=== PATIENT | male | born 1955 | race Caucasian/White ===

== ENCOUNTER 2023-07-04 19:18 | Inpatient (IN) | payer MEDICARE, MEDICAID, SELFPAY ==
[2023-07-04] VITALS (28 sets, daily range): BP systolic 94–143; BP diastolic 56–115; PULSE 78–116; RESP 8–29; TEMP 36.6; O2SAT 87–100; BMI 24.7
--- NOTE | 2023-07-04 | CONS_ITS ---
ENT CONSULTATION CONSULTATION DATE: ??07/04/2023 CONSULTING PHYSICIAN: Rehana Reed D.O. SALES DRIVER:? Kelly Pulliam M.D. CHIEF COMPLAINT:? Facial fracture. HISTORY:? This 67-year-old gentleman, well known to me with a history of head and neck cancer, presented to the emergency room last night after falling and striking his face.? He was noted to have marked facial swelling and had a significantly elevated blood alcohol level on arrival.? A CT scan of the facial bones was obtained.? I reviewed the CT scan and there was a mildly depressed fracture of the anterior wall of the right maxillary sinus, with no evidence of zygoma, inferior orbital rim or lateral orbital rim fracture to suggest a tripod fracture.? REVIEW OF SYSTEMS:? Patient?s review of systems was unremarkable, with the exception of facial swelling. PHYSICAL EXAM:? He is afebrile and vital signs are stable. General:? Alert and oriented x4, marked right facial swelling evident. ENT:? Examination of the oral cavity and oropharynx shows no evidence of a current tumor, and palpation of the neck shows no lymphadenopathy. Heart:? Regular rate and rhythm. Lungs:? Clear to auscultation bilaterally. Abdomen: ?Soft, non-tender. ASSESSMENT:? Right maxilla fracture.? No surgical treatment needed. RECOMMENDATIONS:? I recommend covering the patient with Augmentin to minimize the risk of development of sinusitis and recommend ice to the right face and avoiding nose blowing for two weeks.? Patient should follow up with me as an outpatient.. ROBBID
--- NOTE | 2023-07-04 19:40 | ED.GENADUL1 ---
Documented by User: Danna Lyons 07/04/23 22:11 HPI - General Adult General Chief complaint: Fall Stated complaint: FALL GENERAL WEEKNESS Time Seen by Provider: 07/04/23 19:34 Source: patient and family Mode of arrival: Wheelchair Limitations: no limitations History of Present Illness HPI narrative: 67 year old male presents to the ED for a head injury, facial swelling s/p fall yesterday and today. He is unsure if he lost consciousness. He has been having frequent falls the past few months. He is a heavy daily alcohol drinker for many years. He has skin tears to his right chest, bilateral arms. Denies pain to his neck, back, abdomen. Denies N/V/D, urinary sx. Denies cough, SOB. Family is also requesting x-rays of his right ankle; he had a fracture in December, that he did not follow up for. The patient does live alone. Rates his pain 3/10 at this time. Related Data Home Medications Medication Instructions Recorded Confirmed No Known Home Medications 07/04/23 07/04/23 Allergies Allergy/AdvReac Type Severity Reaction Status Date / Time No Known Drug Allergies Allergy Verified 07/04/23 19:27 Review of Systems ROS Constitutional Denies: fever or chills Eyes Denies: change in vision or blurry vision Ears, nose, mouth, and throat Denies: throat pain, neck pain, throat swelling or ear pain Cardiovascular Denies: chest pain or lightheadedness Respiratory Denies: shortness of breath or cough Gastrointestinal Denies: abdominal pain, nausea, vomiting or diarrhea Genitourinary Denies: painful urination Musculoskeletal Denies: back pain, neck pain or extremity pain Integumentary/Breast Reports: sores; Denies: rash Neurological Denies: headache, numbness in extremities, weakness in extremities, dizziness, vertigo or confusion Endocrine Denies: fatigue Allergic/Immunologic Reports: facial swelling Exam Constitutional Vital Signs, click to edit/add: Last Vital Signs Temp 97.8 F 07/04/23 19:19 Pulse 102 H 07/04/23 23:20 Resp 18 07/04/23 23:20 BP 94/56 07/04/23 23:00 Pulse Ox 97 07/04/23 21:30 O2 Del Method Room Air 07/04/23 19:19 Common normals: no apparent distress and oriented x3 General appearance: cooperative and odor of alcohol detected; not in distress HENME Head and scalp: other (Right-side facial swelling, bruising, abrasions.) Nose: external nose normal; no epistaxis External ear: external ears normal Mouth: tongue normal (Tongue midline. No lacerations or abrasions.) Teeth and gingiva: poor dentition (missing teeth) Throat: posterior oropharynx normal Eye Common normals: PERRL, EOMs intact bilaterally, conjunctivae normal and no scleral icterus Neck & C-Spine Common normals: supple General: normal visual inspection Cervical spine: no pain with cervical ROM, no cervical spine tenderness and no paracervical muscle tenderness Chest Chest: abnormal inspection of the chest (Skin tear to right chest) Other: Denies tenderness to chest with palpation. Respiratory Common normals: normal respiratory effort and no use of accessory muscles Effort & inspection: symmetric chest movement Cardio Common normals: regular rhythm Rate: tachycardic GI Common normals: soft to palpation and non-tender Other: No bruising, abrasions, wounds noted to abdomen. Back & Pelvis General back: no erythema and no ecchymosis Thoracic spine/upper back: normal to inspection; no thoracic spinal tenderness and no paraspinal muscle tenderness Lumbar spine/lower back: normal to inspection; no lumbar spinal tenderness and no paraspinal muscle tenderness Extremity Common normals: normal capillary refill Other: Full ROM to BUE and BLE. Denies tenderness to extremities. No swelling or obvious deformity noted to extremities. Skin tears noted to BUE. Wounds on left arm do no appear to be from today. Wounds to right arm appear more recent. Neuro Common normals: oriented x3 and moves all extremities Sensorium/orientation: awake and alert Speech: speech normal Gait (neuro): unable to assess gait Course Vital Signs Vital signs: Vital Signs Temperature 97.8 F 07/04/23 19:19 Pulse Rate 104 H 07/04/23 19:19 Respiratory Rate 20 07/04/23 19:19 Blood Pressure 134/105 H 07/04/23 19:19 Pulse Oximetry 98 07/04/23 19:19 Oxygen Delivery Method Room Air 07/04/23 19:19 Temperature 97.8 F 07/04/23 19:19 Pulse Rate 102 H 07/04/23 23:20 Respiratory Rate 18 07/04/23 23:20 Blood Pressure 94/56 07/04/23 23:00 Pulse Oximetry 97 07/04/23 21:30 Oxygen Delivery Method Room Air 07/04/23 19:19 Medical Decision Making MDM Narrative Medical decision making narrative: His wounds were cleansed. A dressing was applied to the newer wound on the right arm. Magnesium was 1.3 which was treated. His ethanol level was 286. Additional testing was pending. Care was resumed to Dr. Haq. See her dictation for further evaluation and treatment. Medical Records Medical records reviewed: Yes I reviewed the patient's medical records Lab Data Lab results reviewed: Yes I reviewed the patient's lab results Labs: Lab Results 07/04/23 Range/Units 19:50 WBC 3.1 L (4.0-11.0) 10^3/uL RBC 2.97 L (4.70-6.10) 10^6/uL Hgb 10.3 L (14.0-18.0) g/dL Hct 30.3 L (42.0-54.0) % MCV 102.0 H (80.0-94.0) fL MCH 34.7 H (25.9-34.0) pg MCHC 34.0 (29.9-35.2) g/dL RDW 13.8 (11.0-15.0) % Plt Count 197 (150-450) 10^3/uL MPV 10.5 (9.5-13.5) fL Neut % (Auto) 71.1 (43.0-75.0) % Lymph % (Auto) 21.8 (20.5-60.0) % Canyon % (Auto) 4.9 (1.7-12.0) % Eos % (Auto) 0.3 L (0.9-7.0) % Baso % (Auto) 1.3 (0.2-2.0) % Neut # (Auto) 2.2 (1.4-6.5) 10^3/uL Lymph # (Auto) 0.7 L (1.2-3.8) 10^3/uL Canyon # (Auto) 0.2 L (0.3-0.8) 10^3/uL Eos # (Auto) 0.0 (0.0-0.7) 10^3/uL Baso # (Auto) 0.0 (0.0-0.1) 10^3/uL Abs Immat Gran (auto) 0.02 (0.00-0.03) 10^3/uL Imm/Tot Granulo (auto) 0.6 H (0.0-0.5) % PT 10.8 (9.0-11.6) sec INR 1.02 Sodium 136 (136-145) mmol/L Potassium 5.1 (3.5-5.1) mmol/L Chloride 98 (98-107) mmol/L Carbon Dioxide 22.9 (21.0-32.0) mmol/L Anion Gap 20.2 BUN 10.0 (7.0-18.0) mg/dL Creatinine 0.62 L (0.70-1.30) mg/dL Est GFR ( Amer) >60 (>=60) Est GFR (Non-Af Amer) >60 (>=60) BUN/Creatinine Ratio 16.1 Glucose 70 L (74-106) mg/dL Calcium 8.2 L (8.5-10.1) mg/dL Magnesium 1.3 L (1.8-2.4) mg/dL Total Bilirubin 1.3 H (0.2-1.0) mg/dL AST 165 H (15-37) U/L ALT 54 (16-63) U/L Alkaline Phosphatase 65 (46-116) U/L NT-Pro-B Natriuret Pep 406.0 (<=900.0) pg/mL Total Protein 7.8 (6.4-8.2) g/dL Albumin 3.6 (3.4-5.0) g/dL Globulin 4.2 g/dL Albumin/Globulin Ratio 0.9 Lipase 217.0 (73.0-393.0) U/L Ethanol Quant 286 mg/dL ECG Data Attestation: ?I have reviewed the pertinent ECG results. (EKG was reviewed by the attending physician. It showed sinus tachycardia at a rate of 109. ) Interpretation: Measurements Intervals [place] Rate: 109 P: 72 KS: 134 QRS: 56 QRSD: 78 T: 56 QT: 326 QTc: 390 Interpretive Statements 1120 Sinus tachycardia 1470 with occasional supraventricular premature complexes 1570 with occasional ventricular premature complexes 3433 Septal myocardial infarction, probably old 9150 abnormal ECG No previous ECG available for comparison Discharge Plan Discharge Chief Complaint: Fall Clinical Impression: Unsteady gait, Falls frequently, Alcohol abuse, daily use, Leukopenia, Fracture of maxillary sinus, Fracture of lateral malleolus Patient Disposition: Admitted As Inpatient Time of Disposition Decision: 00:14 Condition: Serious Prescriptions / Home Meds: No Action No Known Home Medications Referrals: Bird Crouch MD [Primary Care Provider] - 1 week Documented by User: Gladis Haq MD 07/05/23 00:15 HPI - General Adult General Chief complaint: Fall Stated complaint: FALL GENERAL WEEKNESS Time Seen by Provider: 07/04/23 19:34 Related Data Home Medications Medication Instructions Recorded Confirmed No Known Home Medications 07/04/23 07/04/23 Allergies Allergy/AdvReac Type Severity Reaction Status Date / Time No Known Drug Allergies Allergy Verified 07/04/23 19:27 Exam Constitutional Vital Signs, click to edit/add: Last Vital Signs Temp 97.8 F 07/04/23 19:19 Pulse 102 H 07/04/23 23:20 Resp 18 07/04/23 23:20 BP 94/56 07/04/23 23:00 Pulse Ox 97 07/04/23 21:30 O2 Del Method Room Air 07/04/23 19:19 Course Vital Signs Vital signs: Vital Signs Temperature 97.8 F 07/04/23 19:19 Pulse Rate 104 H 07/04/23 19:19 Respiratory Rate 20 07/04/23 19:19 Blood Pressure 134/105 H 07/04/23 19:19 Pulse Oximetry 98 07/04/23 19:19 Oxygen Delivery Method Room Air 07/04/23 19:19 Temperature 97.8 F 07/04/23 19:19 Pulse Rate 102 H 07/04/23 23:20 Respiratory Rate 18 07/04/23 23:20 Blood Pressure 94/56 07/04/23 23:00 Pulse Oximetry 97 07/04/23 21:30 Oxygen Delivery Method Room Air 07/04/23 19:19 Medical Decision Making MDM Narrative Medical decision making narrative: His wounds were cleansed. A dressing was applied to the newer wound on the right arm. Magnesium was 1.3 which was treated. His ethanol level was 286. Additional testing was pending. Care was resumed to Dr. Haq. See her dictation for further evaluation and treatment. 67-year-old male was seen and evaluated in conjunction with the nurse practitioner. Please refer to her full H and P. Patient was seen and evaluated by myself. Sisters are at bedside. They explained that the patient is currently living alone. He is not colic. He has recently been falling because he is not able to weight-bear on his right leg. Yesterday he tried to get up and fell against a door frame and struck the right side of his face on the doorframe. The patient's sister states he has been in rehab in the past over 10 years ago. At that time his rehab was 4 opiate narcotics and alcoholism. The patient currently lives alone. He has a history of throat cancer and has had radiation therapy in the past. His sister states that he was supposed to see Dr. Pulliam recently for a follow up appointment but either cancelled the appointment or failed to show up. He also had a tibial fracture in the past and had been seen by Dr. Grimaldo. He apparently wore a walking boot for 2 weeks and then discarded it. It is unclear when he reinjured his right lower extremity but it does show that there is an acute fracture of the distal fibula on his x-ray. The patient's sister states that he was drinking when she showed up to pick him up earlier today. His alcohol is noted to be 286. The remainder of his labs show a leukopenia with a WBC cound of 3.1 and anemia with Hb of 10.3. He has mild elevation in his LFTs in keeping with his history of alcohol dependence. On physical exam, he has right-sided facial swelling and bruising and the soft tissues of his neck on the right side are firm s/p XRT of the neck . He is mildly intoxicated without any other focal deficits. CT scan of the brain was negative for acute findings. CT scan of the facial bones shows an acute fracture of the right maxillary sinus without involvement of the orbits. CT scan of the chest showed chronic changes and multiple nodules but no pneumothorax or other acute findings such as pneumonia or empyema. CT scan abdomen and pelvis shows a fatty liver but is otherwise normal. X-ray of the right lower extremity shows an acute fracture of the Lateral aspect of the lateral malleolus within the patient's prior distal fibula fracture. CT scan of the cervical spine was negative for acute findings. The patient received IV fluids and magnesium in the emergency department. He was given 3gm of IV Unasyn to prevent sinus infection after the sinus fracture. He remains hemodynamically stable. His right lower extremity was splinted in a one-step splint and Dr. Grimaldo was consult at. The patient has seen Dr. Pulliam in the past and can be consulted at the request of the admitting physician. The case was discussed with the hospitalist and he is accepted for admission to the ICU for further evaluation and treatment. His sisters feel that he should be placed as he can no longer provide for his basic needs at home by himself. Lab Data Labs: Lab Results 07/04/23 Range/Units 19:50 WBC 3.1 L (4.0-11.0) 10^3/uL RBC 2.97 L (4.70-6.10) 10^6/uL Hgb 10.3 L (14.0-18.0) g/dL Hct 30.3 L (42.0-54.0) % MCV 102.0 H (80.0-94.0) fL MCH 34.7 H (25.9-34.0) pg MCHC 34.0 (29.9-35.2) g/dL RDW 13.8 (11.0-15.0) % Plt Count 197 (150-450) 10^3/uL MPV 10.5 (9.5-13.5) fL Neut % (Auto) 71.1 (43.0-75.0) % Lymph % (Auto) 21.8 (20.5-60.0) % Canyon % (Auto) 4.9 (1.7-12.0) % Eos % (Auto) 0.3 L (0.9-7.0) % Baso % (Auto) 1.3 (0.2-2.0) % Neut # (Auto) 2.2 (1.4-6.5) 10^3/uL Lymph # (Auto) 0.7 L (1.2-3.8) 10^3/uL Canyon # (Auto) 0.2 L (0.3-0.8) 10^3/uL Eos # (Auto) 0.0 (0.0-0.7) 10^3/uL Baso # (Auto) 0.0 (0.0-0.1) 10^3/uL Abs Immat Gran (auto) 0.02 (0.00-0.03) 10^3/uL Imm/Tot Granulo (auto) 0.6 H (0.0-0.5) % PT 10.8 (9.0-11.6) sec INR 1.02 Sodium 136 (136-145) mmol/L Potassium 5.1 (3.5-5.1) mmol/L Chloride 98 (98-107) mmol/L Carbon Dioxide 22.9 (21.0-32.0) mmol/L Anion Gap 20.2 BUN 10.0 (7.0-18.0) mg/dL Creatinine 0.62 L (0.70-1.30) mg/dL Est GFR ( Amer) >60 (>=60) Est GFR (Non-Af Amer) >60 (>=60) BUN/Creatinine Ratio 16.1 Glucose 70 L (74-106) mg/dL Calcium 8.2 L (8.5-10.1) mg/dL Magnesium 1.3 L (1.8-2.4) mg/dL Total Bilirubin 1.3 H (0.2-1.0) mg/dL AST 165 H (15-37) U/L ALT 54 (16-63) U/L Alkaline Phosphatase 65 (46-116) U/L NT-Pro-B Natriuret Pep 406.0 (<=900.0) pg/mL Total Protein 7.8 (6.4-8.2) g/dL Albumin 3.6 (3.4-5.0) g/dL Globulin 4.2 g/dL Albumin/Globulin Ratio 0.9 Lipase 217.0 (73.0-393.0) U/L Ethanol Quant 286 mg/dL Critical Care Time Critical Care Time Critical Care Time: Yes Total Critical Care Time: 45 Attestation: pt seen,evaluated and treated by myself in conjunction with the SCOREBOARD OPERATOR Discharge Plan Discharge Chief Complaint: Fall Clinical Impression: Unsteady gait, Falls frequently, Alcohol abuse, daily use, Leukopenia, Fracture of maxillary sinus, Fracture of lateral malleolus Patient Disposition: Admitted As Inpatient Time of Disposition Decision: 00:14 Condition: Serious Prescriptions / Home Meds: No Action No Known Home Medications Referrals: Bird Crouch MD [Primary Care Provider] - 1 week Procedures ED Procedure Instructions Procedures Procedures: Fracture care without manipulation; a one-step posterior splint was applied over the right lower extremity from the knee to the end of the foot to immobilize the fracture of the distal fibula and lateral malleolus. Patient tolerated procedure well. He is neurovascularly intact.
--- NOTE | 2023-07-04 19:41 | CT_ITS ---
The [address] [address] Patient Name: ADELFO NOLAN MRN: [id number] date: 1955 Sex: M Assigned Patient Location: ER Current Patient Location: ER Accession/Order Number: [id number] Exam Date: 07/04/2023 21:08 Report Date: 07/04/2023 22:47 At the request of: TIM GARCES Procedure: CT cervical spine wo con CT CERVICAL SPINE WITHOUT CONTRAST HISTORY: Frequent falls. COMPARISON: CT soft tissue neck 12/26/2017. TECHNIQUE: Helical CT images were performed of the cervical spine without intravenous contrast. Dose reduction techniques were achieved by using automated exposure control and/or adjustment of mA and/or kV according to patient size and/or use of iterative reconstruction technique. FINDINGS: YARD MANAGER RADIOGRAPH: Unremarkable. MINERALIZATION: Mild to moderate osteopenia. CRANIOCERVICAL AND ATLANTOAXIAL ARTICULATIONS: Intact with no traumatic subluxation. VERTEBRAL BODIES: Mild chronic-appearing loss of height at C3 through C7. This appears stable. No acute compression fracture. DISC SPACES: Normal. ALIGNMENT: Stable grade 1 anterolisthesis at C2-C3, likely degenerative in nature. POSTERIOR ELEMENTS: Intact. ODONTOID PROCESS: Intact. VISUALIZED SKULL BASE: Unremarkable. SPINAL CANAL/NEURAL FORAMEN: Mild to moderate multilevel bilateral neural foraminal stenosis due to facet and uncovertebral hypertrophy. Severe right-sided neural foraminal stenosis is noted at C6-C7. There is no significant canal stenosis. UPPER THORAX: Unremarkable. SOFT TISSUES OF THE NECK: Moderate atherosclerotic carotid artery calcification. There is partially visualized ecchymosis in the right facial soft tissues as noted on the maxillofacial CT report. CT/CT cervical spine wo con IMPRESSION: 1. No acute fracture or subluxation. 2. Mild chronic loss of height throughout the cervical spine. 3. Osteopenia and degenerative changes as described above. Electronically authenticated by: DARRELL GATES Date: 07/04/2023 22:47
--- NOTE | 2023-07-04 19:41 | XR_ITS ---
The [address] [address] Patient Name: ADELFO NOLAN MRN: [id number] date: 1955 Sex: M Assigned Patient Location: ER Current Patient Location: ER Accession/Order Number: [id number] Exam Date: 07/04/2023 21:08 Report Date: 07/04/2023 22:09 At the request of: TIM GARCES Procedure: XR ankle RT min 3V EXAM: XR ankle RT min 3V HISTORY: Fall COMPARISON: X-rays 01/27/2023 TECHNIQUE: 3 views FINDINGS: IMPRESSION: There is an acute nondisplaced fracture of the lateral aspect of the lateral malleolus within the patient's prior distal fibula fracture, this is visualized on the AP view. The remainder of the osseous structures are unremarkable. Joint spaces are unremarkable for patient's age. No discrete soft tissue edema. Orthopedic surgical evaluation is necessary. Electronically authenticated by: NICOLE ERVIN Date: 07/04/2023 22:09
--- NOTE | 2023-07-04 19:41 | CT_ITS ---
The [address] [address] Patient Name: ADELFO NOLAN MRN: [id number] date: 1955 Sex: M Assigned Patient Location: ER Current Patient Location: ER Accession/Order Number: [id number] Exam Date: 07/04/2023 21:08 Report Date: 07/04/2023 22:43 At the request of: TIM GARCES Procedure: CT facial bones wo con EXAM: CT facial bones wo con HISTORY: injury COMPARISON: None. TECHNIQUE: Unenhanced helical CT was performed through the facial bones. FINDINGS: There is an acute comminuted fracture involving the anterior and lateral wall of the right maxillary sinus with approximately 2.5 mm posterior displacement of the medial aspect of the anterior maxillary sinus wall. There is no orbital floor fracture. There is no other acute facial bone fracture. There is a moderate dense air-fluid level in the right maxillary sinus consistent with hemorrhage. There is mild mucosal thickening in the left maxillary sinus consistent with chronic sinusitis, and there is also mild mucosal thickening of ethmoidal air cells. There is moderate leftward nasal septal deviation. There is a small right lateral periorbital hematoma and there is diffuse stranding in the right facial subcutaneous fat consistent with ecchymosis. CT/CT facial bones wo con IMPRESSION: 1. Acute comminuted mildly displaced fracture involving the anterior and lateral wall of the right maxillary sinus. There is no involvement of the orbital floor. 2. Hemorrhagic fluid in the right maxillary sinus. 3. Chronic sinusitis as described above, as well as leftward nasal septal deviation. 4. Right periorbital hematoma and diffuse ecchymosis in the right face. Electronically authenticated by: DARRELL GATES Date: 07/04/2023 22:43
--- NOTE | 2023-07-04 19:41 | CT_ITS ---
The [address] [address] Patient Name: ADELFO NOLAN MRN: [id number] date: 1955 Sex: M Assigned Patient Location: ER Current Patient Location: ER Accession/Order Number: [id number] Exam Date: 07/04/2023 21:08 Report Date: 07/04/2023 22:44 At the request of: TIM GARCES Procedure: CT chest w con CT CHEST WITH CONTRAST: INDICATION: frequent falls, injury. COMPARISON: None available. TECHNIQUE: Helical axial CT images of the chest were obtained after the administration of intravenous contrast. Dose reduction techniques were achieved by using automated exposure control and/or adjustment of mA and/or kV according to patient size and/or use of iterative reconstruction technique. FINDINGS: VASCULATURE: Mild to moderate atherosclerotic calcification of the thoracic aorta which is normal in caliber. HEART/PERICARDIUM: Moderate atherosclerotic coronary artery calcification. MEDIASTINAL/HILAR LYMPH NODES: There are multiple subcentimeter mediastinal lymph nodes. No definite enlarged lymph nodes are seen. ESOPHAGUS: Normal as visualized. PLEURAL CAVITY: No pleural effusion or pneumothorax. LUNGS/AIRWAYS: Mild secretions within the bilateral mainstem bronchi. Mild bronchial wall thickening suggestive of bronchitis and mild upper lobe-predominant emphysema. 2 mm subpleural left upper lobe nodule, image 34 series 4. Lungs are otherwise clear. CHEST WALL/AXILLA/LOWER NECK: Normal. VISUALIZED UPPER ABDOMEN: Please refer to the separate CT abdomen report. BONES: There is a nondisplaced healing fracture of the left eighth anterior rib, age-indeterminate but may be subacute in nature. There is no other acute osseous abnormality. CT/CT chest w con IMPRESSION: 1. Healing, age indeterminate but probably subacute fracture of the left eighth anterior rib. 2. No other acute traumatic injury in the chest. 3. Atherosclerotic coronary artery calcification. 4. Emphysema and bronchial wall thickening consistent with chronic bronchitis. There are mild bronchial secretions. 5. 2 mm left upper lobe subpleural pulmonary nodule. Optional follow-up CT may be considered in 12 months. 6. Multiple subcentimeter mediastinal lymph nodes which may be reactive in nature but are nonspecific. Fleischner Society guidelines for follow-up and management of a solid pulmonary nodule incidentally discovered in patients 35 years old or older: Nodule size <6 mm Low-risk patient: No routine follow-up. High-risk patient: Optional CT at 12 months. Nodule size = 6-8 mm Low-risk patient: CT at 3-6 months, then consider CT at 18-24 months. High-risk patient: CT at 3-6 months, then CT at 18-24 months. Nodule size > 8 mm Low-risk patient: CT at 3-6 months, then consider CT at 18-24 months. High-risk patient: CT at 3-6 months, then CT at 18-24 months. Low risk patients include individuals with minimal or absent history of smoking and other known risk factors. High risk patients include individuals with a history of smoking or other known risk factors. Dimensions are an average of the long and short axes, rounded to the nearest millimeter. Radiology 2017. Feb 23:139190. DOI: 10.1148/[id number]. Electronically authenticated by: DARRELL GATES Date: 07/04/2023 22:44
--- NOTE | 2023-07-04 19:41 | CT_ITS ---
The [address] [address] Patient Name: ADELFO NOLAN MRN: [id number] date: 1955 Sex: M Assigned Patient Location: ER Current Patient Location: ER Accession/Order Number: [id number] Exam Date: 07/04/2023 21:08 Report Date: 07/04/2023 22:44 At the request of: TIM GARCES Procedure: CT abdomen pelvis w con CT ABDOMEN AND PELVIS WITH CONTRAST: INDICATION: pain, frequent falls. COMPARISON: None. TECHNIQUE: Helical CT images of the abdomen and pelvis were obtained after the administration of intravenous contrast. Dose reduction techniques were achieved by using automated exposure control and/or adjustment of mA and/or kV according to patient size and/or use of iterative reconstruction technique. FINDINGS: LOWER CHEST: Normal. LIVER: Severe diffuse fatty infiltration. GALLBLADDER AND BILIARY SYSTEM: Normal. SPLEEN: Normal. PANCREAS: Normal. ADRENAL GLANDS: Normal. KIDNEYS AND URETERS: Normal. VASCULATURE: There is diffuse atherosclerotic calcification of the abdominal aorta, iliac and femoral arteries. RETROPERITONEUM AND LYMPH NODES: Normal, with no lymphadenopathy. GASTROINTESTINAL TRACT/MESENTERY: Normal appearance of the stomach, small and large bowel. Normal mesentery/peritoneum. BLADDER: Not well visualized. REPRODUCTIVE SYSTEM: Normal. BODY WALL: There is a small fat-containing umbilical hernia. There is also a small fat-containing right inguinal hernia. BONES: No acute abnormality. CT/CT abdomen pelvis w con IMPRESSION: 1. No acute process in the abdomen or pelvis. 2. Severe fatty infiltration of the liver. 3. Small fat-containing umbilical and right inguinal hernias. Electronically authenticated by: DARRELL GATES Date: 07/04/2023 22:44
--- NOTE | 2023-07-04 19:41 | ECG_ITS ---
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
--- NOTE | 2023-07-04 19:42 | CT_ITS ---
The [address] [address] Patient Name: ADELFO NOLAN MRN: [id number] date: 1955 Sex: M Assigned Patient Location: ER Current Patient Location: ER Accession/Order Number: [id number] Exam Date: 07/04/2023 21:08 Report Date: 07/04/2023 22:43 At the request of: TIM GARCES Procedure: CT head/brain wo con EXAMINATION: CT head/brain wo con, 07/04/2023 9:08 PM EDT HISTORY: Frequent falls, injury COMPARISON: None. TECHNIQUE: CT scan of the head was performed without IV contrast. CT dose reduction technique was used, including Automated Exposure Control. FINDINGS: BRAIN PARENCHYMA/CSF SPACES: The ventricles and sulci appear markedly prominent consistent with atrophy. There is no hemorrhage, mass effect or midline shift. There is diffuse atherosclerotic calcification of the vertebral and carotid arteries. There is mild low attenuation within the periventricular white matter consistent with chronic microvascular ischemia. PARANASAL SINUSES: There is partially visualized opacification of the right maxillary sinus. SKULL BASE AND CALVARIUM: Normal. EXTRACRANIAL SOFT TISSUES: There is mild right lateral periorbital soft tissue swelling. CT/CT head/brain wo con IMPRESSION: 1. No acute intracranial abnormality. 2. Atrophy, atherosclerotic calcification, and chronic microvascular ischemia. 3. Partially visualized opacification of the right maxillary sinus and right periorbital swelling. Please refer to the separate CT maxillofacial report. Electronically authenticated by: DARRELL GATES Date: 07/04/2023 22:43
[2023-07-04 20:15] LABS: Basophils Percent Auto 1.3 % (0.2-2.0); Eosinophils Percent Auto 0.3 % (0.9-7.0); Hematocrit 30.3 % (42.0-54.0); Hemoglobin 10.3 g/dL (14.0-18.0); Immature Granulocytes Abs Auto 0.02 10^3/uL (0.00-0.03); Immature Granulocytes Pct Auto 0.6 % (0.0-0.5); Lymphocytes Absolute Auto 0.7 10^3/uL (1.2-3.8); Lymphocytes Percent Auto 21.8 % (20.5-60.0); Mean Corpuscular Hemoglobin 34.7 pg (25.9-34.0); Mean Platelet Volume 10.5 fL (9.5-13.5); Monocytes Absolute Auto 0.2 10^3/uL (0.3-0.8); Monocytes Percent Auto 4.9 % (1.7-12.0); Neutrophils Absolute Auto 2.2 10^3/uL (1.4-6.5); Neutrophils Percent Auto 71.1 % (43.0-75.0); Platelet Count 197 10^3/uL (150-450); Red Blood Count 2.97 10^6/uL (4.70-6.10); Red Cell Distribution Width 13.8 % (11.0-15.0); White Blood Count 3.1 10^3/uL (4.0-11.0)
[2023-07-04 20:27] LABS: INR 1.02; Prothrombin Time 10.8 sec (9.0-11.6)
[2023-07-04 20:34] LABS: Alanine Aminotransferase 54 U/L (16-63); Albumin Globulin Ratio 0.9; Albumin Level 3.6 g/dL (3.4-5.0); Alkaline Phosphatase 65 U/L (46-116); Anion Gap 20.2; Aspartate Amino Transferase 165 U/L (15-37); BUN Creatinine Ratio 16.1; Bilirubin Total 1.3 mg/dL (0.2-1.0); Calcium 8.2 mg/dL (8.5-10.1); Carbon Dioxide 22.9 mmol/L (21.0-32.0); Chloride 98 mmol/L (98-107); Estimated GFR (African America >60 (>=60); Estimated GFR (Non-African Ame >60 (>=60); Ethanol 286 mg/dL; Globulin 4.2 g/dL; Glucose 70 mg/dL (74-106); Magnesium 1.3 mg/dL (1.8-2.4); Potassium 5.1 mmol/L (3.5-5.1); Sodium 136 mmol/L (136-145); Total Protein 7.8 g/dL (6.4-8.2)
[2023-07-04] MEDS: 0.9 % SODIUM CHLORIDE 1,000 ML 500 ML IV (21:33)
[2023-07-04] MEDS: MAGNESIUM SULFATE IN WATER 50 ML IV (21:33)
[2023-07-05] VITALS (160 sets, daily range): BP systolic 115–143; BP diastolic 61–94; PULSE 80–169; RESP 8–92; TEMP 36.4–37.1; O2SAT 96–100; BMI 23.2
[2023-07-05 00:08] LABS: Bilirubin Urine SMALL (NEGATIVE); Blood Urine TRACE-I (NEGATIVE); Clarity Urine CLEAR (CLEAR); Color Urine YELLOW (YELLOW); Glucose Urine UA NEGATIVE (NEGATIVE); Ketones Urine 40 mg/dL (NEGATIVE); Leukocyte Esterase Urine NEGATIVE (NEGATIVE); Nitrite Urine NEGATIVE (NEGATIVE); Protein Urine 30 mg/dL (NEG/TRACE); Specific Gravity Urine 1.015 (1.005-1.025); pH Urine 5.5 (5.0-9.0)
[2023-07-05 00:09] LABS: Urine Microscopic Indicated YES
[2023-07-05] MEDS: AMPICILLIN SODIUM/SULBACTAM NA 3 GM in 0.9 % SODIUM CHLORIDE 100 ML IV (00:14)
[2023-07-05 00:15] LABS: Bacteria Urine NONE SEEN #/HPF (NONE SEEN); Cast Seen? NONE SEEN #/LPF (NONE SEEN); Crystals Seen? None Seen #/HPF (None Seen); Mucus Urine LARGE (NONE SEEN); RBC Urine 0-2 #/HPF (0-2); Squamous Epithelial Cell Urine NONE SEEN #/LPF (NONE/RARE); WBC Urine 0-2 #/HPF (NONE SEEN)
[2023-07-05 00:16] LABS: Urine Culture Indicated NO
[2023-07-05 00:17] LABS: Amphetamine Screen Urine NEGATIVE (NEGATIVE); Barbiturates Screen Urine NEGATIVE (NEGATIVE); Benzodiazepines Screen Urine NEGATIVE (NEGATIVE); Buprenorphine Screen Urine NEGATIVE (NEGATIVE); Cannabinoid Screen Urine NEGATIVE (NEGATIVE); Cocaine Screen Urine NEGATIVE (NEGATIVE); Methadone Screen Urine NEGATIVE (NEGATIVE); Methamphetamines Screen Urine NEGATIVE (NEGATIVE); Opiate Screen Urine NEGATIVE (NEGATIVE); Oxycodone Screen Urine NEGATIVE (NEGATIVE); Phencyclidine Screen Urine NEGATIVE (NEGATIVE); Tricyclic Antidepressant Urine NEGATIVE (NEGATIVE)
--- NOTE | 2023-07-05 01:06 | P.PN_ITS ---
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 Pt lives alone and reports that he falls almost daily and usually intoxicated. He consumes approx a 6 pack beer and a tom of vidka every couple days. Prev been to rehab for etoh and dope per pt approx 13 yrs ago. Denies any previous DTs. Reports that 2 days ago, he fell into a door frame hitting the right side of his face whiel intoxicated and having difficulty bearing weight on right leg. He denies any LOC. He did not seek any medical attention. Today, he sustained anotehr fall and unable to get up. he called his sister but a neighbor was able to help him up prior to sister's arrival when then decided to take pt to ED. Of note, hx of a right fibular fx in 12/[address] Amanda with rec nonsurgical treatment with a boot at that time to which pt complied for approx 2 wks then removed on his own adn was lost to follow up. In ED today, vitals with initial bp 94/56 , rest normal. Labs signif for wbc 3.1, hb 10.3,gluc 70, Mg 1.3, t bili 1.3, ast 165, etoh 286. ekg sinus tachy wit h pvcs. ct brain nap. ct facial bonnes with acute comminuted mildly displaced fx r maxillary sinus withut any inv of orbit. ct chest healing subacute fx left 8th rib, 2mm nodule. ct cerival spine of fx, xray R ankle acute nondisplaced fx lateral malleolus w/in prior distal fibular fx. ct a/p severe fatty liver, r inguinal hernia.pt tx in ED with unasyn, mag, ivf 500cc. Exam Constitutional Vital Signs, click to edit/add: Last Vital Signs Temp 97.8 F 07/04/23 19:19 Pulse 84 07/05/23 00:30 Resp 13 07/05/23 00:30 BP 139/83 07/05/23 00:00 Pulse Ox 97 07/04/23 21:30 O2 Del Method Room Air 07/04/23 19:19 Common normals: no apparent distress Nutritional appearance: cachectic Orientation/consciousness: Yes oriented to person, Yes oriented to place and Yes oriented to time HENMT Common normals: normocephalic Head and scalp: abrasion (abrasiansc to r face with r facial swelling) Face and sinus: facial abrasion and facial edema Teeth and gingiva: poor dentition Eye Periorbital: periorbital findings abnormal (periorbital swelling and bruising. orbit appears intact) right Neck & C-Spine Common normals: full ROM and supple General: normal visual inspection Chest Chest: abnormal inspection of the chest and abrasion (right side with some chronic wounds, no drainage) Respiratory Common normals: normal respiratory effort and no use of accessory muscles Effort & inspection: able to speak in complete sentences and symmetric chest movement Auscultation: clear to auscultation bilaterally Cardio Common normals: regular rate and regular rhythm GI Common normals: Normal to inspection, nondistended, normoactive bowel sounds present, soft to palpation and non-tender Extremity Common normals: no pedal edema General: deformity Right lower extremity: ankle joint (dressing to rle) Neuro Common normals: oriented x3 and CN's II-XII intact bilaterally Psych Common normals: mental status grossly normal, cooperative and affect normal Attitude: calm Progress Note: Objective Labs Labs: Short CBC 07/04/23 Range/Units 19:50 WBC 3.1 L (4.0-11.0) 10^3/uL Hgb 10.3 L (14.0-18.0) g/dL Hct 30.3 L (42.0-54.0) % Plt Count 197 (150-450) 10^3/uL BMP 07/04/23 19:50 Sodium 136 Potassium 5.1 Chloride 98 Carbon Dioxide 22.9 BUN 10.0 Creatinine 0.62 L Glucose 70 L Calcium 8.2 L Liver Function 07/04/23 Range/Units 19:50 Total Bilirubin 1.3 H (0.2-1.0) mg/dL AST 165 H (15-37) U/L ALT 54 (16-63) U/L Alkaline Phosphatase 65 (46-116) U/L Albumin 3.6 (3.4-5.0) g/dL Urine 07/05/23 Range/Units 00:00 Urine Color Yellow (YELLOW) Urine Clarity Clear (CLEAR) Urine pH 5.5 (5.0-9.0) Ur Specific [place] 1.015 (1.005-1.025) Urine Protein 30 A (NEG/TRACE) mg/dL Urine Glucose (UA) Negative (NEGATIVE) mg/dL Progress Note: A&P Assessment and Plan (1) Falls frequently: (2) Alcohol abuse, daily use: (3) Fracture of maxillary sinus: (4) Unsteady gait: Plan Alcohol Intoxication-CIWA, schd librium, prn valium. FA/MVI/Thiamine. ivf. SW c/s for poss rehab need for ankle and etoh cessation program referal R Ankle Fx- splinted in ed.Dr Amanda contact lens curve grinder c/s in am R maxillary Sinus Fx- supportive care. recvd unasyn in ED, transition to augmentin. follows ENT Dr Pulliam Mild Hypotension- resolved wirh ivf Freq Falls-fall prec. pt, ot once cleared by surgery Chronic Normocytic Anemia- stable h/h Hypogycemia- d5 1/2 ns ivf, repeat labs in am hypomagnesemia-repleted Mild Incr LFT, Hyperbiliubinemia- d/t etoh abuse Mild Transaminitis-sec to etoh, repeat labs in am Hx of throat and Tongue ca. dx 4-5 yrs ago. completed radiation dvt p/x lovenox full code Telemedicine Attestation Telemedicine Attestation I conducted this encounter from [MD] via secure live, [id number] video conference with the patient, located at [facility] with [Mary FRANCISCO]. Prior to the interview, the risks and benefits of telemedicine were discussed with the patient and verbal consent was obtained.
[2023-07-05] MEDS: DEXTROSE 5 %-0.45 % SOD CHLORD 1,000 ML 100 ML IV ×3 (02:04→21:28)
[2023-07-05 05:23] LABS: Basophils Percent Auto 1.2 % (0.2-2.0); Eosinophils Percent Auto 0.8 % (0.9-7.0); Hemoglobin 8.6 g/dL (14.0-18.0); Immature Granulocytes Abs Auto 0.03 10^3/uL (0.00-0.03); Immature Granulocytes Pct Auto 1.2 % (0.0-0.5); Lymphocytes Absolute Auto 0.4 10^3/uL (1.2-3.8); Lymphocytes Percent Auto 16.5 % (20.5-60.0); Mean Corpuscular HGB Conc 33.1 g/dL (29.9-35.2); Mean Corpuscular Hemoglobin 34.8 pg (25.9-34.0); Mean Corpuscular Volume 105.3 fL (80.0-94.0); Mean Platelet Volume 9.6 fL (9.5-13.5); Monocytes Absolute Auto 0.3 10^3/uL (0.3-0.8); Monocytes Percent Auto 10.2 % (1.7-12.0); Neutrophils Absolute Auto 1.8 10^3/uL (1.4-6.5); Neutrophils Percent Auto 70.1 % (43.0-75.0); Platelet Count 98 10^3/uL (150-450); Red Blood Count 2.47 10^6/uL (4.70-6.10); Red Cell Distribution Width 13.6 % (11.0-15.0); White Blood Count 2.5 10^3/uL (4.0-11.0)
[2023-07-05 05:46] LABS: Alanine Aminotransferase 43 U/L (16-63); Albumin Globulin Ratio 0.9; Alkaline Phosphatase 53 U/L (46-116); Anion Gap 20.1; Aspartate Amino Transferase 111 U/L (15-37); BUN Creatinine Ratio 12.5; Bilirubin Total 0.9 mg/dL (0.2-1.0); Calcium 7.8 mg/dL (8.5-10.1); Carbon Dioxide 21.1 mmol/L (21.0-32.0); Chloride 98 mmol/L (98-107); Estimated GFR (African America >60 (>=60); Estimated GFR (Non-African Ame >60 (>=60); Globulin 3.3 g/dL; Glucose 66 mg/dL (74-106); Magnesium 1.6 mg/dL (1.8-2.4); Potassium 3.2 mmol/L (3.5-5.1); Sodium 136 mmol/L (136-145); Total Protein 6.3 g/dL (6.4-8.2)
[2023-07-05] MEDS: CLORDIAZEPOXIDE HCl 25 MG CAPSULE PO ×3 (06:36→21:29)
[2023-07-05] MEDS: FOLIC ACID 1 MG TABLET PO (08:03)
[2023-07-05] MEDS: MULTIVITAMIN TABLET 1 TAB PO (08:03)
[2023-07-05] MEDS: AMOXICILLIN/POTASSIUM CLAV 1 TAB TABLET PO ×2 (08:03→21:29)
[2023-07-05] MEDS: ENOXAPARIN SODIUM 40 MG/0.4 ML SYRINGE SUBQ (08:03)
[2023-07-05] MEDS: THIAMINE MONONITRATE (VIT B1) 100 MG TABLET PO (08:03)
[2023-07-05] MEDS: L. ACIDOPHILUS/L.BULGARICUS 1 PACKET GRAN.PACK PO ×2 (08:03→21:29)
[2023-07-05] MEDS: NICOTINE 21 MG PATCH TD (08:04)
--- NOTE | 2023-07-05 08:49 | P.HP_ITS ---
H&P: HPI History of Present Illness Chief complaint: FALL GENERAL WEEKNESS Narrative: patient is a [id number] male with past medical history of throat and tongue cancer status post completion of chemotherapy and radiation therapy approximately five years ago. He also is a daily alcohol user and continues to smoke. He has been falling while intoxicated for the last several months. Most recent fall was approximately two days ago where he fell hitting his head on the right side and also his leg on the right. He was not able to get up and a neighbor calmed to his distress and his sister brought him to the Emergency Room last night. Patient was scanned in multiple locations secondary to his alcohol intoxication and was found to have several ailments. Most notably was a right lateral malleolar fracture, a fracture of the 8th rib, fatty liver, right inguinal hernia, umbilical hernia, and a right maxillary sinus fracture with hematoma. Patient was admitted for further plan of care. He was given Unasyn in the Emergency Room for sinusitis, magnesium replacement and fluid bolus. Patient's alcohol level was elevated as well. At the time of admission exam patient complains of his right leg hurting, his right face swelling and he also complains of having some swallowing difficultiesthat has been going on for the last several weeks. He said anytime he tries to eat any solid foods he continues to have problems with that moving down his esophagus. He denies taking any medications at home reports he drinks beer and vodka and his last drink was just prior to visit to the Emergency Room. Also of note he was being treated by Dr. Grimaldo previously for a right fibular fracture in December 2022 but was not compliant with his nonsurgical treatment. Review of Systems ROS Narrative ROS: a complete review of systems were reviewed with patient and are positive as below or listed in History of Chief Complaint. General: no fever, chills, night sweats Head: no headache but facial trauma, no visual changes, nausea or vomiting Skin: bruising Eyes: no blurriness of vision Ears: no reported hearing loss, vertigo, earache, or tinnitus Throat: no sore throat, hoarseness, swelling of neck, or tongue pain Heart: no chest pain Lungs: no shortness of breath or cough GI: no diarrhea or vomiting/nausea, difficulty swallowing Urinary: no urinary urgency, frequency or pain Neuro: no numbness or tingling HEM: no bleeding issues or bruising ENDO: no thyroid problems Psych: no anxiety or depression [facility] Medical History (Updated 07/05/23 @ 12:44 by Rehana Reed DO) Family History Mother Family history of CHF (congestive heart failure) Family history of stroke Mother Family history of diabetes mellitus Father Family history of diabetes mellitus Social History Within the past year, how often did you have a drink containing alcohol: 4 or more times a week Within the past year, how many standard drinks containing alcohol did you have on a typical day: 10 or more Within the past year, how often did you have six or more drinks on one occasion: daily or almost daily Total score: 12 Score interpretation: A score of 4 or more indicates drinking is likely to affect patient's safety. Smoking status: Current every day smoker What tobacco products do you use: cigarettes Pack-years instructions: Please document either packs per day or cigarettes per day in order for pack years to calculate correctly. If using both packs per day and cigarettes per day, please make sure that they denote the same thing. If they differ, pack- years will calculate based on packs per day. Packs Per Day Cigarettes Per Day 1/4 of a pack 5 1/2 a pack 10 3/4 of a pack 15 1 pack 20 1.5 pack 30 2 packs 40 2.5 packs 50 3 packs 60 Packs per day: 2 Non-prescribed substance use: former substance user Previous occupational history: unemployed Highest level of school completed/degree received: 8th grade Are you now , , , , never or living with a partner: don't know In a typical week, how many times do you talk on the telephone with family, friends, or neighbors: 3 or more times per week Little interest or pleasure in doing things: more than half the days Feeling down, depressed, or hopeless: not at all Feel stressed/tense/nervous/anxious/difficulty sleeping: to some extent Meds Home Medications and Allergies Home Medications Medication Instructions Recorded Confirmed Type No Known Home Medications 07/04/23 07/04/23 History Allergies Allergy/AdvReac Type Severity Reaction Status Date / Time No Known Drug Allergies Allergy Verified 07/04/23 19:27 Exam Narrative Exam Narrative: General: Patient is alert, and oriented to person, place and time with normal affect, proper hygiene, significant swelling to the right side of face Head: traumatic with significant swelling of the right side of face, acephalic Eyes: PERRLA, no nystagmus present, conjunctiva clear, no scleral icterus Ears: normal gross auditory acuity Nose: symmetric, no discharge Neck: no masses palpated, normal thyroid, no JVD or audible carotid bruits Heart: increased rate and normal rhythm, no murmurs/rubs/gallops Lungs: no audible wheezes, crackles and normal breath sounds all lung antony Abdomen: Normal audible bowel sounds, no distension, No palpable masses, no organomegaly, no rebound/guarding/ or rigidity Musculoskeletal: muscle atrophy noted, ROM is limited due to being in hospital bed, no swelling bilateral lower extremities Vascular: Normal carotid, radial, femoral, posterior tibial, and dorsalis pedis pulses Lymph: no supraclavicular, axillary, or anterior/posterior cervical adenopathy Neuro: CN II-X grossly intact, normal sensation upper and lower extremities Constitutional Vital Signs, click to edit/add: Last Vital Signs Temp 97.6 F 07/05/23 07:51 Pulse 95 H 07/05/23 07:50 Resp 20 07/05/23 07:50 BP 134/92 H 07/05/23 07:45 Pulse Ox 97 07/05/23 07:45 O2 Del Method Room Air 07/05/23 07:51 Results Labs Labs: Short CBC 07/04/23 07/05/23 Range/Units 19:50 05:10 WBC 3.1 L 2.5 L (4.0-11.0) 10^3/uL Hgb 10.3 L 8.6 L (14.0-18.0) g/dL Hct 30.3 L 26.0 L (42.0-54.0) % Plt Count 197 98 L (150-450) 10^3/uL BMP 07/04/23 07/05/23 19:50 05:10 Sodium 136 136 Potassium 5.1 3.2 L Chloride 98 98 Carbon Dioxide 22.9 21.1 BUN 10.0 7.0 Creatinine 0.62 L 0.56 L Glucose 70 L 66 L Calcium 8.2 L 7.8 L Liver Function 07/04/23 07/05/23 Range/Units 19:50 05:10 Total Bilirubin 1.3 H 0.9 (0.2-1.0) mg/dL AST 165 H 111 H (15-37) U/L ALT 54 43 (16-63) U/L Alkaline Phosphatase 65 53 (46-116) U/L Albumin 3.6 3.0 L (3.4-5.0) g/dL Urine 07/05/23 Range/Units 00:00 Urine Color Yellow (YELLOW) Urine Clarity Clear (CLEAR) Urine pH 5.5 (5.0-9.0) Ur Specific [place] 1.015 (1.005-1.025) Urine Protein 30 A (NEG/TRACE) mg/dL Urine Glucose (UA) Negative (NEGATIVE) mg/dL Assessment and Plan Assessment and Plan (1) Fracture of lateral malleolus: Assessment and Plan: podiatry was counseled in, we'll continue to leave the splint in place nonsurgical means of treatment with a walking gout or splint for now nonweightbearing. will get PT OT involved as well. Pain control (2) Fracture of maxillary sinus: Assessment and Plan: ENT was consult dated recommend continuing Augmentin outpatient follow-up in clinic, recommended not blowing nose for approximately two weeks. No surgical intervention at this time (3) Alcohol abuse, daily use: Assessment and Plan: alcohol intoxicated D/detox scores, when necessary Valium, seizure precautions, no desire to quit at this time. 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, malnutrition will get PT OT (5) Unsteady gait: Assessment and Plan: will need to be nonweightbearing on the right ankle may benefit from a stay in rehab for physical therapy (6) Leukopenia: Assessment and Plan: fatty liver seen on CAT scan of the abdomen and pelvis, pancytopenia and leukopenia from chronic liver disease and probable cirrhosis (7) Caloric malnutrition: Assessment and Plan: will place on protein supplement (8) Dysphagia: Assessment and Plan: will get swallow study Plan patient is a full code Lovenox for deep vein thrombosis prophylaxis Due to patient's multiple fractures, issues swallowing, malnourishment will require more than two midnights, patient is under inpatient status
[2023-07-05] MEDS: DIAZEPAM 5 MG/ML - 2 ML INJ SYRINGE IV (09:52)
[2023-07-05] MEDS: PANTOPRAZOLE SODIUM 40 MG VIAL IV (09:52)
[2023-07-05] MEDS: POTASSIUM CHLORIDE 20 MEQ in 0.9 % SODIUM CHLORIDE 250 ML 125 MEQ IV (10:14)
--- NOTE | 2023-07-05 10:35 | SWNOTE1 ---
MILADIS spoke with case management and pt will likely need rehab due to weakness and falls. Pt will be a precert and he does drink daily, on CIWA scale. Pt would like [facility] if [facility] can accept. MILADIS let case management know [facility] does case by case for [facility] and also may be issues due to drinking. Referral sent to [facility].
--- NOTE | 2023-07-05 10:46 | SWNOTE1 ---
SW sent referral to [facility].
--- NOTE | 2023-07-05 11:01 | P.PODCN_ITS ---
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 Patient lives alone and has sustained multiple falls over the last few weeks which are unwitnessed. Patient relates this to his alcohol use. His most recent fall approximately 2 days ago when he fell and hit a door frame and hit the right side of his face with pain following in the right leg. He denied loss of consciousness. He sustained another fall yesterday and was unable to get up. He was helped by a neighbor and his sister was able to bring him to the emergency department. Podiatry consulted for concern of new fracture to his right fibula. He sustained a right fibular fracture on the same side in December 2022 and was treated conservatively with cam boot however he was lost to follow-up subsequently. Admits to mild aching and throbbing in the right ankle. Denies any other lower extremity complaints. Denies any fever, chills, nausea, vomiting, shortness of breath, admits to rib pain with known rib fractures on CT obtained in ER. cc:: CC: Bird Crouch MD Review of Systems ROS Status of ROS 10 or more systems reviewed and unremarkable except as noted in history and below [facility] Medical History (Updated 07/05/23 @ 11:06 by Srini Baxter DPM) Family History (Updated 07/05/23 @ 00:53 by Mary Ravi RN) Mother Family history of CHF (congestive heart failure) Family history of stroke Mother Family history of diabetes mellitus Father Family history of diabetes mellitus Social History (Updated 07/05/23 @ 00:56 by Mary Ravi RN) Within the past year, how often did you have a drink containing alcohol: 4 or more times a week Within the past year, how many standard drinks containing alcohol did you have on a typical day: 10 or more Within the past year, how often did you have six or more drinks on one occasion: daily or almost daily Total score: 12 Score interpretation: A score of 4 or more indicates drinking is likely to affect patient's safety. Smoking status: Current every day smoker What tobacco products do you use: cigarettes Pack-years instructions: Please document either packs per day or cigarettes per day in order for pack years to calculate correctly. If using both packs per day and cigarettes per day, please make sure that they denote the same thing. If they differ, pack- years will calculate based on packs per day. Packs Per Day Cigarettes Per Day 1/4 of a pack 5 1/2 a pack 10 3/4 of a pack 15 1 pack 20 1.5 pack 30 2 packs 40 2.5 packs 50 3 packs 60 Packs per day: 2 Non-prescribed substance use: former substance user Previous occupational history: unemployed Highest level of school completed/degree received: 8th grade Are you now , , , , never or living with a partner: don't know In a typical week, how many times do you talk on the telephone with family, friends, or neighbors: 3 or more times per week Little interest or pleasure in doing things: more than half the days Feeling down, depressed, or hopeless: not at all Feel stressed/tense/nervous/anxious/difficulty sleeping: to some extent Exam Narrative Exam Narrative: Vascular: DP and PT pulses strongly palpable. CFT intact to digits. Skin temperature gradient is warm to warm proximal distal without focal increase. No edema erythema or ecchymosis. Neuro: Light touch and gross sensation is intact. Negative Tinel's. No hypersensitivity. Derm: Skin is within normal limits for texture and turgor. There is mild hemosiderin staining bilateral. Mild varicosities. Skin is intact, no open lesions or fracture blisters. Musculoskeletal: Muscle strength deferred secondary to known fracture. Active and passive range of motion of ankle and subtalar joint intact with mild tenderness upon dorsiflexion and inversion. Palpatory tenderness directed to the lateral malleolus of the right lower extremity. No pain along ATFL CFL PT FL Achilles peroneal tendons or medial structures. No pain to the distal tib- fib syndesmosis. Compartments soft and compressible, no pain with calf or thigh compression. Constitutional Vital Signs, click to edit/add: Last Vital Signs Temp 97.6 F 07/05/23 07:51 Pulse 126 H 07/05/23 10:03 Resp 13 07/05/23 10:00 BP 134/92 H 07/05/23 07:45 Pulse Ox 97 07/05/23 07:45 O2 Del Method Room Air 07/05/23 07:51 Assessment and Plan Assessment and Plan (1) Falls frequently: (2) Alcohol abuse, daily use: (3) Fracture of maxillary sinus: (4) Unsteady gait: (5) Closed traumatic nondisplaced fracture of distal end of right fibula: (6) Fracture of lateral malleolus: Assessment and Plan: Patient examined and evaluated. All findings discussed with the patient all questions answered to patient's satisfaction. Patient's sister who is POA present during exam. X-ray findings consistent with nondisplaced closed transverse fracture of the distal aspect of the lateral malleolus. Recommend conservative management given fracture is nondisplaced, stable and neurovascular status is intact in combination with his comorbid conditions. He will remain Nonweightbearing in posterior splint at this time. POA states that he has a cam boot at home which has been unused. She will attempt to bring this to the hospital tomorrow, if it is still in good condition we may transition him into the cam boot, otherwise will remain nonweightbearing in the posterior splint. PT OT consults. On CIWA protocol per primary. Social work consulted for rehab placement centering around therapy and etoh cessation. ENT consulted for facial fractures. Stable from podiatry standpoint. will follow-up in Dr. Grimaldo's office 1 week following discharge Will follow. Call with questions or concerns.
--- NOTE | 2023-07-05 11:15 | CM.NOTE ---
Rounds made with Dr. Reed, no discharge today. Dr. Reed discussed skilled rehab with pt, pt in agreement and 1st choice would be [place]. Discussed also about drinking daily and need for alcohol rehab. Pt in agreement to both, pt states I just want to get better. Pt does voice he did not want to follow up or come to hospital d/t fear of getting bad news.
[2023-07-05] MEDS: MAGNESIUM SULFATE IN WATER 50 ML IV (11:42)
--- NOTE | 2023-07-05 13:22 | SWNOTE1 ---
[facility] is able to accept, they will need PT/OT and weight bearing status. SW sent over rest of information and let [facility] know to start precert.
--- NOTE | 2023-07-05 13:59 | SWNOTE1 ---
Precert is started to [facility].
[2023-07-05] MEDS: ACETAMINOPHEN 325 MG TABLET 650 MG PO (21:29)
[2023-07-06] VITALS (35 sets, daily range): BP systolic 110–131; BP diastolic 59–81; PULSE 85–123; RESP 16–18; TEMP 36.7–36.9; O2SAT 94–98; BMI 23.1
[2023-07-06 05:11] LABS: Basophils Percent Auto 1.1 % (0.2-2.0); Eosinophils Percent Auto 1.1 % (0.9-7.0); Hemoglobin 7.9 g/dL (14.0-18.0); Immature Granulocytes Abs Auto 0.01 10^3/uL (0.00-0.03); Immature Granulocytes Pct Auto 0.6 % (0.0-0.5); Lymphocytes Absolute Auto 0.3 10^3/uL (1.2-3.8); Lymphocytes Percent Auto 16.3 % (20.5-60.0); Mean Corpuscular HGB Conc 33.2 g/dL (29.9-35.2); Mean Corpuscular Hemoglobin 34.3 pg (25.9-34.0); Mean Corpuscular Volume 103.5 fL (80.0-94.0); Mean Platelet Volume 9.9 fL (9.5-13.5); Monocytes Absolute Auto 0.2 10^3/uL (0.3-0.8); Monocytes Percent Auto 9.6 % (1.7-12.0); Neutrophils Absolute Auto 1.3 10^3/uL (1.4-6.5); Neutrophils Percent Auto 71.3 % (43.0-75.0); Platelet Count 76 10^3/uL (150-450); Red Cell Distribution Width 13.9 % (11.0-15.0); White Blood Count 1.8 10^3/uL (4.0-11.0)
[2023-07-06 05:17] LABS: Hematocrit 23.8 % (42.0-54.0)
[2023-07-06 05:31] LABS: Alanine Aminotransferase 35 U/L (16-63); Albumin Level 2.9 g/dL (3.4-5.0); Alkaline Phosphatase 54 U/L (46-116); Anion Gap 10.2; Aspartate Amino Transferase 76 U/L (15-37); BUN Creatinine Ratio 8.6; Bilirubin Total 1.4 mg/dL (0.2-1.0); Calcium 7.8 mg/dL (8.5-10.1); Carbon Dioxide 27.9 mmol/L (21.0-32.0); Chloride 104 mmol/L (98-107); Estimated GFR (African America >60 (>=60); Estimated GFR (Non-African Ame >60 (>=60); Globulin 2.9 g/dL; Glucose 112 mg/dL (74-106); Magnesium 1.6 mg/dL (1.8-2.4); Potassium 3.1 mmol/L (3.5-5.1); Sodium 139 mmol/L (136-145); Total Protein 5.8 g/dL (6.4-8.2)
[2023-07-06] MEDS: CLORDIAZEPOXIDE HCl 25 MG CAPSULE PO ×2 (06:15→13:26)
[2023-07-06] MEDS: ACETAMINOPHEN 325 MG TABLET 650 MG PO (06:15)
--- NOTE | 2023-07-06 07:46 | PM.PN ---
Progress Note: Subjective Subjective Interval history: Complaints today still in some difficulty swallowing, no shortness of breath, no chest pain, no abdominal pain, denies withdrawal symptoms Exam Constitutional Vital Signs, click to edit/add: Last Vital Signs Temp 98.4 F 07/06/23 03:05 Pulse 91 H 07/06/23 04:20 Resp 16 07/06/23 03:51 BP 131/81 07/06/23 03:05 Pulse Ox 98 07/06/23 03:05 O2 Del Method Room Air 07/06/23 03:00 HENMT Common normals: normocephalic Respiratory Common normals: normal respiratory effort Cardio Common normals: regular rate, regular rhythm and no murmurs GI Common normals: Normal to inspection, nondistended, normoactive bowel sounds present, soft to palpation and non-tender Progress Note: Objective Labs Labs: Short CBC 07/06/23 Range/Units 04:57 WBC 1.8 L (4.0-11.0) 10^3/uL Hgb 7.9 L (14.0-18.0) g/dL Hct 23.8 L* (42.0-54.0) % Plt Count 76 L (150-450) 10^3/uL BMP 07/06/23 04:57 Sodium 139 Potassium 3.1 L Chloride 104 Carbon Dioxide 27.9 BUN 6.0 L Creatinine 0.70 Glucose 112 H Calcium 7.8 L Liver Function 07/06/23 Range/Units 04:57 Total Bilirubin 1.4 H (0.2-1.0) mg/dL AST 76 H (15-37) U/L ALT 35 (16-63) U/L Alkaline Phosphatase 54 (46-116) U/L Albumin 2.9 L (3.4-5.0) g/dL Progress Note: A&P Assessment and Plan (1) Fracture of lateral malleolus: (2) Fracture of maxillary sinus: (3) Alcohol abuse, daily use: (4) Falls frequently: (5) Unsteady gait: (6) Leukopenia: (7) Caloric malnutrition: (8) Dysphagia: Plan (1) Fracture of lateral malleolus: Assessment and Plan: podiatry was counseled in, we'll continue to leave the splint in place nonsurgical means of treatment with a walking gout or splint for now nonweightbearing. Unable to ambulate, needs rehab. For unsteadiness of gait and nonweightbearing. (2) Fracture of maxillary sinus: Assessment and Plan: ENT was consult dated recommend continuing Augmentin outpatient follow-up in clinic, recommended not blowing nose for approximately two weeks. 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
--- NOTE | 2023-07-06 08:24 | PC.NURSE ---
Went for ramy pratt at 0745, shortly after returned as pt refused test. Sister arrived at 0800. Fellow Podietry visited.
[2023-07-06] MEDS: L. ACIDOPHILUS/L.BULGARICUS 1 PACKET GRAN.PACK PO (08:34)
[2023-07-06] MEDS: NICOTINE 21 MG PATCH TD (08:34)
[2023-07-06] MEDS: MAGNESIUM OXIDE 400 MG TABLET PO (08:35)
[2023-07-06] MEDS: PANTOPRAZOLE SODIUM 40 MG VIAL IV (08:35)
[2023-07-06] MEDS: AMOXICILLIN/POTASSIUM CLAV 1 TAB TABLET PO (08:35)
[2023-07-06] MEDS: MULTIVITAMIN TABLET 1 TAB PO (08:35)
[2023-07-06] MEDS: THIAMINE MONONITRATE (VIT B1) 100 MG TABLET PO (08:35)
[2023-07-06] MEDS: FOLIC ACID 1 MG TABLET PO (08:35)
[2023-07-06] MEDS: POTASSIUM CHLORIDE 10 MEQ ER TABLET 20 MEQ PO (08:35)
[2023-07-06] MEDS: DEXTROSE 5 %-0.45 % SOD CHLORD 1,000 ML 50 ML IV (09:19)
--- NOTE | 2023-07-06 10:21 | PC.NURSE ---
2 sisters at bedside discussing with pt refusing to have test done this morning. Pt does get loud and tell them he is allowed to refuse, appeared agitated after with family. No additional episodes of agitation or anxiety noticed.
--- NOTE | 2023-07-06 10:57 | SWNOTE1 ---
Pt is approved to go to [facility]. SW let doctor know and he will be putting orders in. SW let nursing know as well.
--- NOTE | 2023-07-06 11:36 | SWNOTE1 ---
MILADIS spoke with pt about being approved through his insurance today and being discharged to [place]. Pt is in agreement. Pt would like SW to call his sister to bring clothes for him. SW wrote down number. MILADIS also spoke with pt about alcohol resources for after he gets down with rehab over at [place]. Pt at first stated he has been through all of that. SW let pt know SW can print some information for him that he can have and look over while at [place]. Pt is in agreement. MILADIS printed AA meetings and various inpt/oupt alchol resources/rehab for pt. MILADIS reviewed Important Message from Medicare form with pt. He voiced understanding and had no questions. Pt signed form, original given to pt and copy placed in chart.
--- NOTE | 2023-07-06 11:49 | SWNOTE1 ---
SW called pt's sister, Huma, and she will be bringing clothes for pt.
--- NOTE | 2023-07-06 12:42 | PM.DS1 ---
DS: Providers Provider Date of admission: 07/05/23 00:38 Primary care physician: Bird Crouch MD Consults: 07/05/23 00:01 Consult to Podiatry Routine Consulting Provider: Parminder Grimaldo Reason for consultation: [place] Has provider been notified: No 07/05/23 08:47 Consult to ENT Routine Consulting Provider: Kelly Pulliam Reason for consultation: right maxillary sinus fracture 07/05/23 08:48 Occupational Therapy Eval and Treat Routine Reason for consultation: right lateral malleolar fracture, sinus fracture, rib fracture Has provider been notified: No Physical Therapy Eval and Treat Routine Reason for consultation: right lateral malleolar fracture, rib fracture, right sinus fracture Has provider been notified: No DS: Diagnosis Discharge Diagnosis (1) Fracture of lateral malleolus: (2) Fracture of maxillary sinus: (3) Alcohol abuse, daily use: (4) Falls frequently: (5) Unsteady gait: (6) Leukopenia: (7) Caloric malnutrition: (8) Dysphagia: DS: Summary Hospital Course Hospital Course: Patient was with frequent falls. Found to have fractured mandible in fracture of his ankle. Consultations were obtained. He can see this for review. Overall medically he is stable his kidney function is improved liver tests are still somewhat elevated he has significant bone marrow suppression secondary to his alcohol abuse but that can be followed as an outpatient. He is medically stable for rehab. He is an excellent rehabilitation candidate. Status at Discharge Overall status at discharge: patient is not back to baseline Time Spent with Patient Time attestation: Total time spent providing and/or coordinating discharge services: Exam Narrative Exam Narrative: See progress note Constitutional Vital Signs, click to edit/add: Last Vital Signs Temp 98.4 F 07/06/23 03:05 Pulse 98 H 07/06/23 08:00 Resp 18 07/06/23 08:00 BP 131/81 07/06/23 09:00 Pulse Ox 94 L 07/06/23 08:00 O2 Del Method Room Air 07/06/23 08:00 DS: Data Data Completed and Pending Labs on day of discharge: Labs from last 24 hours 07/06/23 04:57 WBC 1.8 L RBC 2.30 L Hgb 7.9 L Hct 23.8 L* MCV 103.5 H MCH 34.3 H MCHC 33.2 RDW 13.9 Plt Count 76 L MPV 9.9 Neut % (Auto) 71.3 Lymph % (Auto) 16.3 L [place] % (Auto) 9.6 Eos % (Auto) 1.1 Baso % (Auto) 1.1 Neut # (Auto) 1.3 L Lymph # (Auto) 0.3 L [place] # (Auto) 0.2 L Eos # (Auto) 0.0 Baso # (Auto) 0.0 Abs Immat Gran (auto) 0.01 Imm/Tot Granulo (auto) 0.6 H Sodium 139 Potassium 3.1 L Chloride 104 Carbon Dioxide 27.9 Anion Gap 10.2 BUN 6.0 L Creatinine 0.70 Est GFR ( Amer) >60 Est GFR (Non-Af Amer) >60 BUN/Creatinine Ratio 8.6 Glucose 112 H Calcium 7.8 L Magnesium 1.6 L Total Bilirubin 1.4 H AST 76 H ALT 35 Alkaline Phosphatase 54 Total Protein 5.8 L Albumin 2.9 L Globulin 2.9 Albumin/Globulin Ratio 1.0 Discharge Plan Discharge Condition: Serious Discharge Medications: New acetaminophen 325 mg Tablet 650 mg PO Q6H PRN (Reason: Pain Scale 7-10) Qty: 120 0RF magnesium oxide 400 mg (241.3 mg magnesium) Tablet 400 mg PO BID Qty: 60 11RF nicotine 21 mg/24 hr Patch 24 Hour 1 patch topical DAILY Qty: 28 11RF docusate sodium 100 mg Capsule 100 mg PO BID PRN (Reason: Constipation) Qty: 60 0RF amoxicillin-pot clavulanate 875-125 mg Tablet 1 tab PO BID Qty: 20 0RF Lactobacillus acidoph-L.bulgar [Floranex] 100 million cell Granules In Packet 1 packet PO BID Qty: 60 11RF potassium chloride [Klor-Con M10] 10 mEq Tablet,Er Particles/Crystals 20 meq PO BID Qty: 60 11RF calcium carbonate 500 mg/5 mL (1,250 mg/5 mL) Suspension 500 mg PO TID Qty: 500 11RF thiamine mononitrate (vit B1) 100 mg Tablet 100 mg PO DAILY Qty: 60 11RF Ensure Original 0.04-1.05 gram-kcal/mL Liquid 1 ea PO BID Qty: 5688 11RF multivitamin with folic acid [Tab-A-Rick] 400 mcg Tablet 1 tab PO DAILY Qty: 30 11RF omeprazole 40 mg capsule,delayed release(DR/EC) 40 mg PO DAILY Qty: 30 11RF Forms: Portal Instructions
--- NOTE | 2023-07-06 13:23 | SWNOTE1 ---
D/C orders are in. MILADIS called and set up trips and they will be here between 4:00 and 4:30. MILADIS let nursing, [place], pt, and pt's sister know time. SW sent over dc orders, completed HENS, and updated packet.
[2023-07-06] MEDS: CALCIUM CARBONATE 500 MG (200MG ELEMENTAL) TAB CHEW PO (13:26)
--- NOTE | 2023-07-06 13:35 | PC.NURSE ---
Podietry in and applied walking cast to right lower leg.
--- NOTE | 2023-07-06 14:05 | PM.PN ---
Progress Note: Subjective Subjective Interval history: Patient seen resting comfortably in the bedside chair this afternoon. Denies pain in the right ankle at this time. Denies any acute events overnight. Posterior splint remains CDI. Still complaining of some pain in his face and difficulty swallowing, however denies any fever chills nausea vomiting shortness of breath or chest pain. Exam Narrative Exam Narrative: Vascular: DP and PT pulses strongly palpable. CFT intact to digits. Skin temperature gradient is warm to warm proximal distal without focal increase. No edema erythema or ecchymosis. Neuro: Light touch and gross sensation is intact. Negative Tinel's. No hypersensitivity. Derm: Skin is within normal limits for texture and turgor. There is mild hemosiderin staining bilateral. Mild varicosities. Skin is intact, no open lesions or fracture blisters. Musculoskeletal: Muscle strength deferred secondary to known fracture. Active and passive range of motion of ankle and subtalar joint intact with mild tenderness upon dorsiflexion and inversion. Palpatory tenderness directed to the lateral malleolus of the right lower extremity. No pain along ATFL CFL PT FL Achilles peroneal tendons or medial structures. No pain to the distal tib-fib syndesmosis. Compartments soft and compressible, no pain with calf or thigh compression. Constitutional Vital Signs, click to edit/add: Last Vital Signs Temp 98.0 F 07/06/23 12:54 Pulse 96 H 07/06/23 12:54 Resp 18 07/06/23 12:54 BP 110/59 07/06/23 12:54 Pulse Ox 96 07/06/23 12:54 O2 Del Method Room Air 07/06/23 12:54 Progress Note: Objective Labs Labs: Short CBC 07/06/23 Range/Units 04:57 WBC 1.8 L (4.0-11.0) 10^3/uL Hgb 7.9 L (14.0-18.0) g/dL Hct 23.8 L* (42.0-54.0) % Plt Count 76 L (150-450) 10^3/uL BMP 07/06/23 04:57 Sodium 139 Potassium 3.1 L Chloride 104 Carbon Dioxide 27.9 BUN 6.0 L Creatinine 0.70 Glucose 112 H Calcium 7.8 L Liver Function 07/06/23 Range/Units 04:57 Total Bilirubin 1.4 H (0.2-1.0) mg/dL AST 76 H (15-37) U/L ALT 35 (16-63) U/L Alkaline Phosphatase 54 (46-116) U/L Albumin 2.9 L (3.4-5.0) g/dL Progress Note: A&P Assessment and Plan (1) Fracture of lateral malleolus: Assessment and Plan: Patient examined and evaluated. All findings discussed with the patient all questions answered to patient's satisfaction. Patient's sister who is POA present during exam. Due to concerns of none compliance with the cam boot and increased fall risk with the posterior splint, weightbearing cast was applied today. This will need changes in 1 week. Discussed that despite the weightbearing nature of the cast, fracture would have a better timeline of healing if he is able to decrease weightbearing to the right lower extremity. He will be permitted to partial weight-bear to the right heel for transfers with the protective boot over the cast. He will need crutches walker or other assistive devices. PT OT consults. On CIWA protocol per primary. Pending DC to shelter facility this p.m. Stable from podiatry standpoint. will follow-up in Dr. Grimaldo's office 1 week following discharge Will follow. Call with questions or concerns. (2) Fracture of maxillary sinus: (3) Alcohol abuse, daily use: (4) Falls frequently: (5) Unsteady gait: (6) Leukopenia: (7) Caloric malnutrition: (8) Dysphagia:
== END 2023-07-06 16:25 | DRG 563 ==
LOC: ER 07-05 00:15 → ICU 07-05 00:38
PROVIDERS: Internal Medicine; Nurse Practitioner Family; Admitting Provider Family Medicine; Emergency Provider Emergency Medicine; PCP Family Medicine; Visit Provider Family Medicine
DX: S82.64XA Nondisplaced fracture of lateral malleolus of right fibula, initial encounter for closed fracture (principal); S02.40CA Maxillary fracture, right side, initial encounter for closed fracture; E46 Unspecified protein-calorie malnutrition; D61.818 Other pancytopenia; F10.188 Alcohol abuse with other alcohol-induced disorder; S00.81XA Abrasion of other part of head, initial encounter; S41.111A Laceration without foreign body of right upper arm, initial encounter; F17.210 Nicotine dependence, cigarettes, uncomplicated; F10.129 Alcohol abuse with intoxication, unspecified; Y90.8 Blood alcohol level of 240 mg/100 ml or more; K76.0 Fatty (change of) liver, not elsewhere classified; R26.81 Unsteadiness on feet; I95.9 Hypotension, unspecified; E16.2 Hypoglycemia, unspecified; E83.42 Hypomagnesemia; D72.819 Decreased white blood cell count, unspecified; E80.6 Other disorders of bilirubin metabolism; R74.01 Elevation of levels of liver transaminase levels; D75.89 Other specified diseases of blood and blood-forming organs; Z68.23 Body mass index [BMI] 23.0-23.9, adult; Z85.819 Personal history of malignant neoplasm of unspecified site of lip, oral cavity, and pharynx; Z85.810 Personal history of malignant neoplasm of tongue; Z91.81 History of falling; Z92.3 Personal history of irradiation; Z92.21 Personal history of antineoplastic chemotherapy; Z87.81 Personal history of (healed) traumatic fracture; W01.198A Fall on same level from slipping, tripping and stumbling with subsequent striking against other object, initial encounter; Y92.003 Bedroom of unspecified non-institutional (private) residence as the place of occurrence of the external cause; Z82.3 Family history of stroke; Z83.3 Family history of diabetes mellitus; Z82.49 Family history of ischemic heart disease and other diseases of the circulatory system; Z60.2 Problems related to living alone
CPT/HCPCS: 36415; 70450; 70486; 71260; 72125; 73610; 74177; 80053; 80307; 80320; 81001; 83690; 83735; 83880; 85025; 85610; 87070; 87150; 87186; 87205; 93005; 96365; 96366; 96367; 96368; 96372; 96375; 96376; 97162; 97165; 97530; 97535; 99285; G0328; J3480; Q3014; Q9967

== ENCOUNTER 2023-07-13 10:28 | Outpatient (OUT) | payer MEDICARE, MEDICAID, SELFPAY ==
--- NOTE | 2023-07-13 | XR_ITS ---
The [address] [address] Patient Name: ADELFO NOLAN MRN: [id number] date: 1955 Sex: M Assigned Patient Location: [facility] Current Patient Location: RAD Accession/Order Number: [id number] Exam Date: 07/13/2023 14:34 Report Date: 07/13/2023 15:52 At the request of: ACE DAIGLE Procedure: XR ankle RT min 3V STUDY: XR ankle RT min 3V, [id number] HISTORY: RIGHT ANKLE PAIN COMPARISON: Right ankle x-rays 07/04/2023. FINDINGS: Obliquely oriented fracture through the distal diaphysis of the left fibula with mild comminution extending to level of the syndesmotic ligaments demonstrates several mild displacement. No dislocation or new osseous abnormality. No lucent lesion of the talar dome. Mild atherosclerosis of the ankle mortise and of the dorsal foot.. XR/XR ankle RT min 3V IMPRESSION: Similar alignment and degree of displacement of the Queen type B right distal fibular fracture. Electronically authenticated by: RAMÓN HARRIS Date: 07/13/2023 15:52
== END 2023-07-13 10:29 | disposition home or self-care (01) ==
LOC: RAD 07-15 10:29
PROVIDERS: PCP Family Medicine; Visit Provider Podiatrist Foot & Ankle Surgery
DX: M25.571 Pain in right ankle and joints of right foot (principal)
CPT/HCPCS: 73610

== ENCOUNTER 2023-07-26 15:10 | Outpatient (OUT) | payer MEDICARE, MEDICAID, SELFPAY ==
--- NOTE | 2023-07-26 | XR_ITS ---
The [address] [address] Patient Name: ADELFO NOLAN MRN: [id number] date: 1955 Sex: M Assigned Patient Location: [facility] Current Patient Location: Accession/Order Number: [id number] Exam Date: 07/26/2023 15:47 Report Date: 07/27/2023 08:02 At the request of: LEONA RENDON Procedure: XR ankle RT min 3V EXAM: Right ankle. HISTORY: . RIGHT ANKLE PAIN . COMPARISON: 07/13/2023 TECHNIQUE: 3 views FINDINGS: Again noted is a fracture involving the distal fibula at the level of the ankle mortise. Fracture fragments are unchanged in position and alignment. There is been further healing of the fracture. Medial malleolus appears intact. There is been decrease in the soft tissue swelling laterally. XR/XR ankle RT min 3V IMPRESSION: Further healing of the fracture of the distal fibula. Fracture fragments are unchanged in position and alignment. Electronically authenticated by: NICOLE ARMSTRONG Date: 07/27/2023 08:02
== END 2023-07-26 15:11 | disposition home or self-care (01) ==
LOC: RAD 15:10
PROVIDERS: PCP Family Medicine; Visit Provider Physician Assistant
DX: S82.61XA Displaced fracture of lateral malleolus of right fibula, initial encounter for closed fracture (principal)
CPT/HCPCS: 73610

== ENCOUNTER 2023-08-10 15:19 | Outpatient (OUT) | payer MEDICARE, MEDICAID, SELFPAY ==
--- NOTE | 2023-08-10 | XR_ITS ---
The [address] [address] Patient Name: ADELFO NOLAN MRN: [id number] date: 1955 Sex: M Assigned Patient Location: [facility] Current Patient Location: RAD Accession/Order Number: [id number] Exam Date: 08/10/2023 13:25 Report Date: 08/10/2023 13:41 At the request of: ACE DAIGLE Procedure: XR ankle RT min 3V STUDY: XR ankle RT min 3V, [id number] HISTORY: RIGHT ANKLE PAIN COMPARISON: Right ankle x-rays 07/26/2023. FINDINGS: Obliquely oriented fracture of the distal fibula with fracture fragment projecting over the lateral malleolus is overall similar in alignment and degree of displacement compared with 07/26/2023. There is been mild bony consolidation suggesting healing. No lucent lesion of the talar dome. No acute fracture. Moderate Achilles insertional enthesopathy. Mild osteoarthritis of the dorsal midfoot. XR/XR ankle RT min 3V IMPRESSION: Healing distal fibular fracture. Electronically authenticated by: RAMÓN HARRIS Date: 08/10/2023 13:41
== END 2023-08-10 15:20 | disposition home or self-care (01) ==
LOC: RAD 15:19
PROVIDERS: PCP Family Medicine; Visit Provider Podiatrist Foot & Ankle Surgery
DX: S82.831D Other fracture of upper and lower end of right fibula, subsequent encounter for closed fracture with routine healing (principal); S82.451D Displaced comminuted fracture of shaft of right fibula, subsequent encounter for closed fracture with routine healing
CPT/HCPCS: 73610

== ENCOUNTER 2023-08-18 12:51 | Outpatient (OUT) | payer MEDICARE, MEDICAID, SELFPAY ==
--- NOTE | 2023-08-18 | CT_ITS ---
[address] [address] Patient Name: ADELFO NOLAN MRN: [id number] date: 1955 Sex: M Assigned Patient Location: CT Current Patient Location: Accession/Order Number: [id number] Exam Date: 08/18/2023 13:03 Report Date: 08/19/2023 08:28 At the request of: ACE DAIGLE Procedure: CT ankle RT wo con EXAMINATION: CT ankle RT wo con HISTORY: Right fibula fracture w/ nonunion, right ankle charcot COMPARISON: 23 TECHNIQUE: Multi-planar CT images were created without IV contrast. Dose reduction techniques were achieved by using automated exposure control and/or adjustment of mA and/or kV according to patient size and/or use of iterative reconstruction technique. FINDINGS: BONES: Stable oblique fracture through the distal fibula at the level of the syndesmosis with partial bony bridging. Subacute fracture along the posterior lateral margin of the distal tibia with partial bony fusion as seen on sagittal image 54 and axial image 122 with the fracture fragment measuring 1.3 x 0.5 cm. No dislocation. Mild enthesopathic spurring of the calcaneus at the Achilles and plantar insertions. SOFT TISSUES: Negative. No visible soft tissue swelling. EFFUSION: None visible. OTHER: Negative. CT/CT ankle RT wo con IMPRESSION: Stable healing oblique fracture of the distal fibula with partial bony bridging Healing fracture of the posterior malleolus Electronically authenticated by: NICOLE GUY Date: 08/19/2023 08:28
== END 2023-08-18 12:52 | disposition home or self-care (01) ==
LOC: CT 12:51
PROVIDERS: PCP Family Medicine; Visit Provider Podiatrist Foot & Ankle Surgery
DX: S82.64XK Nondisplaced fracture of lateral malleolus of right fibula, subsequent encounter for closed fracture with nonunion (principal); A52.16 Charcot's arthropathy (tabetic)
CPT/HCPCS: 73700

== ENCOUNTER 2023-10-19 09:55 | Outpatient (OUT) | payer MEDICARE, MEDICAID, SELFPAY ==
--- NOTE | 2023-10-19 | XR_ITS ---
The [address] [address] Patient Name: ADELFO NOLAN MRN: [id number] date: 1955 Sex: M Assigned Patient Location: RAD Current Patient Location: [facility] Accession/Order Number: [id number] Exam Date: 10/19/2023 10:30 Report Date: 10/19/2023 23:16 At the request of: ACE DAIGLE Procedure: XR ankle RT min 3V EXAM: XR ankle RT min 3V HISTORY: RIGHT ANKLE PAIN COMPARISON: 08/10/2023 TECHNIQUE: 3 view study FINDINGS: There is callus deposition at the site of the obliquely oriented distal fibular fracture. Alignment is anatomic. The distal tibia is intact. Ankle mortise relationships are intact. Soft tissues are unremarkable. XR/XR ankle RT min 3V IMPRESSION: Signs of healing at the distal fibula fracture. Electronically authenticated by: Chelsey MCGUIRE Date: 10/19/2023 23:16
== END 2023-10-19 09:56 | disposition home or self-care (01) ==
LOC: RAD 09:55
PROVIDERS: PCP Family Medicine; Visit Provider Podiatrist Foot & Ankle Surgery
DX: S82.831D Other fracture of upper and lower end of right fibula, subsequent encounter for closed fracture with routine healing (principal)
CPT/HCPCS: 73610

== ENCOUNTER 2024-01-31 12:20 | Emergency (ER) | payer MEDICARE, MEDICAID, SELFPAY ==
[2024-01-31] VITALS (9 sets, daily range): BP systolic 117–122; BP diastolic 78–96; PULSE 82–98; RESP 12–22; TEMP 36.3; O2SAT 90–95; BMI 24.2
--- NOTE | 2024-01-31 12:34 | ECG_ITS ---
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
[2024-01-31 12:46] LABS: Basophils Absolute Auto 0.1 10^3/uL (0.0-0.1); Basophils Percent Auto 1.1 % (0.2-2.0); Eosinophils Percent Auto 0.2 % (0.9-7.0); Hematocrit 31.3 % (42.0-54.0); Hemoglobin 10.9 g/dL (14.0-18.0); Immature Granulocytes Abs Auto 0.03 10^3/uL (0.00-0.03); Immature Granulocytes Pct Auto 0.6 % (0.0-0.5); Lymphocytes Percent Auto 20.7 % (20.5-60.0); Mean Corpuscular HGB Conc 34.8 g/dL (29.9-35.2); Mean Corpuscular Hemoglobin 31.7 pg (25.9-34.0); Mean Platelet Volume 9.9 fL (9.5-13.5); Monocytes Absolute Auto 0.3 10^3/uL (0.3-0.8); Neutrophils Absolute Auto 3.3 10^3/uL (1.4-6.5); Neutrophils Percent Auto 70.4 % (43.0-75.0); Platelet Count 117 10^3/uL (150-450); Red Blood Count 3.44 10^6/uL (4.70-6.10); Red Cell Distribution Width 13.1 % (11.0-15.0); White Blood Count 4.7 10^3/uL (4.0-11.0)
[2024-01-31 13:05] LABS: Alanine Aminotransferase 30 U/L (16-63); Albumin Globulin Ratio 0.8; Alkaline Phosphatase 86 U/L (46-116); Anion Gap 26.8; Aspartate Amino Transferase 76 U/L (15-37); BUN Creatinine Ratio 16.8; Bilirubin Total 0.8 mg/dL (0.2-1.0); Calcium 8.6 mg/dL (8.5-10.1); Carbon Dioxide 20.7 mmol/L (21.0-32.0); Chloride 96 mmol/L (98-107); Estimated GFR (African America >60 (>=60); Estimated GFR (Non-African Ame >60 (>=60); Ethanol 177 mg/dL; Globulin 3.9 g/dL; Glucose 69 mg/dL (74-106); Potassium 3.5 mmol/L (3.5-5.1); Sodium 140 mmol/L (136-145); Total Protein 6.9 g/dL (6.4-8.2)
--- NOTE | 2024-01-31 13:14 | CT_ITS ---
The [address] [address] Patient Name: ADELFO NOLAN MRN: [id number] date: 1955 Sex: M Assigned Patient Location: ER Current Patient Location: ED.MAIN Accession/Order Number: [id number] Exam Date: 01/31/2024 13:22 Report Date: 01/31/2024 13:44 At the request of: AILYN BARAHONA Procedure: CT head/brain wo con EXAM: CT head/brain wo con HISTORY: fall COMPARISON: CT head 07/04/2023 TECHNIQUE: Noncontrast CT was obtained through the head. FINDINGS: Diffuse ventricular and sulcal prominence consistent with age-related involutional change. No herniation or hydrocephalus. The bolaños matter/white matter differentiation is maintained throughout. No CT evidence of contemporary infarction. No acute intracranial hemorrhage or parenchymal mass. The calvarium and skull base are intact. Opacification of the sphenoid sinuses and sphenoid ostium. Opacification of multiple ethmoid air cells. Opacification of the left maxillary sinus. Frothy secretions within the posterior nasopharynx. Mild mucosal thickening of the right maxillary sinus. Cerumen at the external auditory canals. The mastoid air cells are clear. Atherosclerotic vascular calcifications of the vertebral carotid arteries. CT/CT head/brain wo con IMPRESSION: 1. No acute intracranial abnormality. 2. Extensive paranasal sinus disease. Electronically authenticated by: BENEDICTO THAO Date: 01/31/2024 13:44
--- NOTE | 2024-01-31 13:14 | ED.ALCOHOL1 ---
HPI - Alcohol General Chief Complaint: Alcohol Stated Complaint: INTOXICATION, FALL Time Seen by Provider: 01/31/24 13:08 Source: patient Mode of arrival: ambulance Limitations: no limitations History of Present Illness HPI narrative: Patient is a 68-year-old male who presents to the emergency department apparently by EMS for alcohol intoxication and multiple falls. Patient states he has been drinking 1/5 of whiskey every day for 3 weeks straight. He states he is drinking too much and is interested in alcohol treatment resources. He denies any injuries, he has a scabbed area to the left forearm. He denies any areas of injury. When he is asked why he is in the emergency department today, he states frankly I am not sure . He is calm and cooperative. He is drinking water at initial interview. He denies any drug ingestion. He has no suicidal thoughts. He states he was attempting to ambulate to the couch from the bathroom and asked his son for help, his son called 911. He denies ever having seizures with alcohol withdrawal, he states he was hospitalized for alcohol withdrawal in 2008 and was at an inpatient facility at the [facility]. Related Data Previous Rx's ?Medication ?Instructions ?Recorded Lactobacillus acidophilus, 1 packet PO BID #60 ea 07/06/23 bulgaricus 100 million cell granules packet (Floranex) acetaminophen 325 mg tablet 650 mg (2 x 325 mg) PO Q6H PRN 07/06/23 Pain Scale 7-10 #120 tabs amoxicillin 875 mg-potassium 1 tab PO BID #20 tabs 07/06/23 clavulanate 125 mg tablet calcium carbonate 500 mg/5 mL 500 mg (5 mL) PO TID #500 mL 07/06/23 calcium (1,250 mg/5 mL) oral suspension docusate sodium 100 mg capsule 100 mg PO BID PRN Constipation #60 07/06/23 caps food supplemt, lactose-reduced 1 ea PO BID #5,688 mL 07/06/23 0.04 gram-1.05 kcal/mL oral liquid (Ensure Original) magnesium oxide 400 mg (241.3 mg 400 mg PO BID #60 tabs 07/06/23 magnesium) tablet multivitamin with folic acid 400 1 tab PO DAILY #30 tabs 07/06/23 mcg tablet (Tab-A-Rick) nicotine 21 mg/24 hr daily 1 patch topical DAILY #28 ea 07/06/23 transdermal patch omeprazole 40 mg capsule,delayed 40 mg PO DAILY #30 caps 07/06/23 release potassium chloride 10 mEq 20 meq (2 x 10 mEq) PO BID #60 tabs 07/06/23 tablet,extended release(part/cryst) (Klor-Con M) thiamine mononitrate (vit B1) 100 100 mg PO DAILY #60 tabs 07/06/23 mg tablet Allergies Allergy/AdvReac Type Severity Reaction Status Date / Time No Known Drug Allergies Allergy Verified 07/04/23 19:27 Review of Systems ROS Constitutional Denies: fever or chills Ears, nose, mouth, and throat Denies: throat pain, neck pain or nasal congestion Cardiovascular Denies: chest pain Respiratory Denies: shortness of breath or cough Gastrointestinal Denies: nausea or vomiting Genitourinary Denies: painful urination Musculoskeletal Denies: back pain, neck pain, extremity pain, extremity swelling or joint pain Integumentary/Breast Denies: rash Neurological Denies: headache PFSH PFSH Medical History (Updated 01/31/24 @ 14:45 by LARISSA Sigala) Narcotic abuse ?F11.10 - Opioid abuse, uncomplicated (ICD-10) AA (alcohol abuse) ?F10.10 - Alcohol abuse, uncomplicated (ICD-10) Tongue cancer ?C02.9 - Malignant neoplasm of tongue, unspecified (ICD-10) Throat cancer ?C14.0 - Malignant neoplasm of pharynx, unspecified (ICD-10) Family History Mother Family history of CHF (congestive heart failure) Family history of stroke Mother Family history of diabetes mellitus Father Family history of diabetes mellitus Social History Within the past year, how often did you have a drink containing alcohol: 4 or more times a week Within the past year, how many standard drinks containing alcohol did you have on a typical day: 10 or more Within the past year, how often did you have six or more drinks on one occasion: daily or almost daily Total score: 12 Score interpretation: A score of 4 or more indicates drinking is likely to affect patient's safety. Smoking status: Current every day smoker What tobacco products do you use: cigarettes Packs per day: 2 Non-prescribed substance use: former substance user Previous occupational history: unemployed Highest level of school completed/degree received: 8th grade Are you now , , , , never or living with a partner: don't know In a typical week, how many times do you talk on the telephone with family, friends, or neighbors: 3 or more times per week Little interest or pleasure in doing things: more than half the days Feeling down, depressed, or hopeless: not at all Feel stressed/tense/nervous/anxious/difficulty sleeping: to some extent Exam Constitutional Vital Signs, click to edit/add: Last Vital Signs Temp 97.4 F L 01/31/24 12:25 Pulse 92 H 01/31/24 12:25 Resp 20 01/31/24 12:25 BP 117/96 H 01/31/24 12:25 Pulse Ox 92 L 01/31/24 12:25 O2 Del Method Room Air 01/31/24 12:25 Course Vital Signs Vital signs: Vital Signs Temperature 97.4 F L 01/31/24 12:25 Pulse Rate 92 H 01/31/24 12:25 Respiratory Rate 20 01/31/24 12:25 Blood Pressure 117/96 H 01/31/24 12:25 Pulse Oximetry 92 L 01/31/24 12:25 Oxygen Delivery Method Room Air 01/31/24 12:25 Temperature 97.4 F L 01/31/24 12:25 Pulse Rate 92 H 01/31/24 12:25 Respiratory Rate 20 01/31/24 12:25 Blood Pressure 117/96 H 01/31/24 12:25 Pulse Oximetry 92 L 01/31/24 12:25 Oxygen Delivery Method Room Air 01/31/24 12:25 MDM - Alcohol MDM Narrative Medical decision making narrative: Patient had no suicidal or homicidal ideation in the ER. His ethanol level is 177. He is awake, cooperative and calm in the ER. Able to eat and drink without difficulty. CT of the brain, lab studies are stable and patient discussed placement for alcohol detox over the phone with inpatient facilities. They offered to take the patient today, they have space for him. Patient declined admission today and states that he would like to follow-up next week. His sister is at bedside, she is the patient's POA and she is in agreement with this. She will take him home and they will follow-up next week. Return to the ER if symptoms change or worsen. Medical Records Attestation: I reviewed the patient's medical records. Lab Data Attestation: I reviewed the patient's lab results. Labs: Lab Results 01/31/24 Range/Units 12:36 WBC 4.7 (4.0-11.0) 10^3/uL RBC 3.44 L (4.70-6.10) 10^6/uL Hgb 10.9 L (14.0-18.0) g/dL Hct 31.3 L (42.0-54.0) % MCV 91.0 (80.0-94.0) fL MCH 31.7 (25.9-34.0) pg MCHC 34.8 (29.9-35.2) g/dL RDW 13.1 (11.0-15.0) % Plt Count 117 L (150-450) 10^3/uL MPV 9.9 (9.5-13.5) fL Neut % (Auto) 70.4 (43.0-75.0) % Lymph % (Auto) 20.7 (20.5-60.0) % [place] % (Auto) 7.0 (1.7-12.0) % Eos % (Auto) 0.2 L (0.9-7.0) % Baso % (Auto) 1.1 (0.2-2.0) % Neut # (Auto) 3.3 (1.4-6.5) 10^3/uL Lymph # (Auto) 1.0 L (1.2-3.8) 10^3/uL [place] # (Auto) 0.3 (0.3-0.8) 10^3/uL Eos # (Auto) 0.0 (0.0-0.7) 10^3/uL Baso # (Auto) 0.1 (0.0-0.1) 10^3/uL Abs Immat Gran (auto) 0.03 (0.00-0.03) 10^3/uL Imm/Tot Granulo (auto) 0.6 H (0.0-0.5) % Sodium 140 (136-145) mmol/L Potassium 3.5 (3.5-5.1) mmol/L Chloride 96 L (98-107) mmol/L Carbon Dioxide 20.7 L (21.0-32.0) mmol/L Anion Gap 26.8 BUN 17.0 (7.0-18.0) mg/dL Creatinine 1.01 (0.70-1.30) mg/dL Est GFR ( Amer) >60 (>=60) Est GFR (Non-Af Amer) >60 (>=60) BUN/Creatinine Ratio 16.8 Glucose 69 L (74-106) mg/dL Calcium 8.6 (8.5-10.1) mg/dL Total Bilirubin 0.8 (0.2-1.0) mg/dL AST 76 H (15-37) U/L ALT 30 (16-63) U/L Alkaline Phosphatase 86 (46-116) U/L Total Protein 6.9 (6.4-8.2) g/dL Albumin 3.0 L (3.4-5.0) g/dL Globulin 3.9 g/dL Albumin/Globulin Ratio 0.8 Ethanol Quant 177 mg/dL Imaging Data CT scan - head: Attestation: I have reviewed the pertinent imaging results. Radiologist's impression: ITS Impressions Head CT 01/31/24 13:14 IMPRESSION: 1. No acute intracranial abnormality. 2. Extensive paranasal sinus disease. Electronically authenticated by: BENEDICTO THAO Date: 01/31/2024 13:44 ECG Data Attestation: I personally reviewed and interpreted this ECG as follows: (Normal sinus rhythm at a rate of 93, no acute ST elevation or ectopy. EKG reviewed by attending physician) Discharge Plan Discharge Stand Alone Forms: Portal Instructions Chief Complaint: Alcohol Clinical Impression: Alcohol intoxication Patient Disposition: Home, Self-Care Time of Disposition Decision: 14:45 Condition: Good Prescriptions / Home Meds: No Action acetaminophen 325 mg Tablet 650 mg PO Q6H PRN (Reason: Pain Scale 7-10) Qty: 120 0RF magnesium oxide 400 mg (241.3 mg magnesium) Tablet 400 mg PO BID Qty: 60 11RF nicotine 21 mg/24 hr Patch 24 Hour 1 patch topical DAILY Qty: 28 11RF docusate sodium 100 mg Capsule 100 mg PO BID PRN (Reason: Constipation) Qty: 60 0RF amoxicillin-pot clavulanate 875-125 mg Tablet 1 tab PO BID Qty: 20 0RF Lactobacillus acidoph-L.bulgar [Floranex] 100 million cell Granules In Packet 1 packet PO BID Qty: 60 11RF potassium chloride [Klor-Con M10] 10 mEq Tablet,Er Particles/Crystals 20 meq PO BID Qty: 60 11RF calcium carbonate 500 mg/5 mL (1,250 mg/5 mL) Suspension 500 mg PO TID Qty: 500 11RF thiamine mononitrate (vit B1) 100 mg Tablet 100 mg PO DAILY Qty: 60 11RF Ensure Original 0.04-1.05 gram-kcal/mL Liquid 1 ea PO BID Qty: 5688 11RF multivitamin with folic acid [Tab-A-Rick] 400 mcg Tablet 1 tab PO DAILY Qty: 30 11RF omeprazole 40 mg capsule,delayed release(DR/EC) 40 mg PO DAILY Qty: 30 11RF Print Language: [place] Citizen Instructions: Alcohol Intoxication (ED) Additional Instructions: Follow up for detox as discussed Referrals: Bird Crouch MD [Primary Care Provider] - 1 week
--- OUTSIDE RECORDS SUMMARY | 2024-01-31 13:38 | XMS_ITS | CCD ---
Author Organization [facility] Care Team Providers Care Phone Triage Specialist Name Role Phone Elba Crouch Primary Care Unavailable Jen Qureshi Admitting Unavailable Jen Qureshi Attending Unavailable Elba Crouch MD Primary Care Provider lEba Crouch Primary Care Physician Elba Crouch MD Primary Care Provider [phone] Elba Crouch MD Primary Care Provider [phone] Elba Crouch MD Primary Care Provider [phone] ELBA OTOOLE Primary Care Unavailable BRAD CARUSO Admitting Unavailable BRAD CARUSO Attending Unavailable LEONA RENDON Admitting Unavailable WILLA ., DR ARREOLA Primary Care Unavailable LEONA RENDON Attending Unavailable WILLA ., DR ARREOLA Primary Care Unavailable HANKY ., DR ARREOLA Consulting Unavailable HOY ., DR ARREOLA Attending Unavailable HOY ., DR ARREOLA Admitting Unavailable Edmond Brooks Consulting Unavailable WILLA ., DR ARREOLA Primary Care Unavailable LEONA RENDON Admitting Unavailable LEONA RENDON Consulting Unavailable LEONA RENDON Attending Unavailable ACE ARREOLA Consulting Unavailable WILLA ., DR ARREOLA Primary Care Unavailable ACE DAIGLE Admitting Unavailable ACE DAIGLE Consulting Unavailable ACE DAIGLE Attending Unavailable GRETCHEN SON Consulting Unavailable Sushil Edgar Attending Unavailable Sushil Edgar Attending Unavailable Elba Crouch MD Primary Care Provider ELBA CROUCH Primary Care Unavailable ABHYANKAR, WYATT Referring Unavailable ABNITINANKAR, WYATT Attending Unavailable ELBA CROUCH Primary Care Unavailable ABHYANKAR, WYATT Referring Unavailable Medications Current Medications Medication Drug Class(es) Dates Sig (Normalized) Sig (Original) iv contrast (will be provided with radiology test) (4 sources) Start: 12-19-2023 End: 12-20-2023 iv contrast (will be provided with radiology test) Indications: Localized enlarged lymph nodes , History of head and neck cancer CT Chest W -Inject, intravenously, once for 1 dose.No IV access, insert saline lock prior to the beginning of sedation, infusion, injection of imaging exam. Discontinue saline lock post exam. If Pt. has a central line or IVAD, may access for administration according to line specific nursing protocol. Once exam is complete flush line and de-access according to line specific nursing protocol in the CT contrast administration guidelines link. 1 Each 0 12/19/2023 12/20/2023 Active Start: 12-16-2022 End: 12-17-2022 iv contrast (will be provide d with radiology test) Indications: Lung nodules CT Chest W -Inject, intravenously, once for 1 dose.No IV access, insert saline lock prior to the beginning of sedation, infusion, injection of imaging exam. Discontinue saline lock post exam. If Pt. has a central line or IVAD, may access for administration according to line specific nursing protocol. Once exam is complete flush line and de-access according to line specific nursing protocol in the CT contrast administration guidelines link. 1 Each 0 12/16/2022 12/17/2022 Active Start: 12-16-2022 End: 12-16-2022 inject 1 dose intravenously once, then inject 1 dose intravenously once iv contrast (will be provided with radiology test) Indications: Lung nodules Inject 1 Each intravenously one time only for [address] Neck W IVCON No IV access, insert saline lock prior to the sedation, infusion, injection for imaging exam. Discontinue saline lock post exam. If Pt. has a central line or IVAD, may access for administration according to line specific nursing protocol. Once exam is complete flush line and de-access according to line specific nursing protocol in the CT contrast administration guidelines link. 1 Each 0 12/16/2022 12/16/2022 Active Comment on above: CT Chest W -Inject, intravenously, once for 1 dose.No IV access, insert saline lock prior to the beginning of sedation, infusion, injection of imaging exam. Discontinue saline lock post exam. If Pt. has a central line or IVAD, may access for administration according to line specific nursing protocol. Once exam is complete flush line and de-access according to line specific nursing protocol in the CT contrast administration guidelines link. Inject 1 Each intrav enously one time only for [address] Neck W IVCON No IV access, insert saline lock prior to the sedation, infusion, injection for imaging exam. Discontinue saline lock post exam. If Pt. has a central line or IVAD, may access for administration according to line specific nursing protocol. Once exam is complete flush line and de-access according to line specific nursing protocol in the CT contrast administration guidelines link. sofosbuvir 400 mg / velpatasvir 100 mg oral tablet (5 sources) Hepatitis C Virus NS5A Inhibitor, Hepatitis C Virus Nucleotide Analog NS5B Polymerase Inhibitor Start: 2 End: 2 take 1 tablet by mouth once daily Epclusa 400 mg-100 mg oral tablet tab(s), Oral, Daily, Refills(s) 0 Start Date: 04/06/22 Status: Ordered Comment on above: Take 1 tablet by kacie once daily. Completed/Discontinued Medications Medication Drug Class(es) Dates Sig (Normalized) Sig (Original) tamsulosin hydrochloride 0.4 mg oral capsule (2 sources) alpha-Adrenergic Jose Manuel Start: 11-22-2023 take 1 capsule by mouth once tamsulosin (FLOMAX) 0.4 mg Take 1 capsule by mouth every afternoon. 0 11/22/2023 Active Comment on above: Take 1 capsule by mo [facility] every afternoon. Problems Active Problems Problem Classification Problem Date Documented Date Episodic/Chronic Cancer of head and neck (15 sources) Malignant tumor of head and neck; Translations: [Malignant neoplasm of head, face and neck] Onset: 12-18-2020 12-18-2020 Chronic Cancer of head and neck (1 source) History of malignant neoplasm of tongue 08-07-2020 Episodic Cancer; other and unspecified primary (1 source) History of malignant neoplasm of head and/or neck; Translations: [Personal history of malignant neoplasm of other organs and systems] 12-19-2023 Episodic Deficiency and other anemia (1 source) Deficiency and other anemia; Translations: [D64.9 - Anemia, unspecified] Onset: 03-14-2018 Fracture of lower limb (1 source) Other fracture of upper and lower end of right fibula, initial encounter for closed fracture; Translations: [OTH FX UP LOW RT FIB INIT CLOS FX] Onset: 12-29-2022 Episodic Genitourinary symptoms and ill-defined conditions (3 sources) Nocturia; Translations: [Nocturia] Onset: 04-06-2022 Episodic Hepatitis (2 sources) Chronic hepatitis C; Translations: [Chronic viral hepatitis C] Chronic Hyperplasia of prostate (2 sources) Benign prostatic hypertrophy without outflow obstruction; Translations: [Benign prostatic hyperplasia without lower urinary tract symptoms] Onset: 04-06-2022 Chronic Immunizations and screening for infectious disease (1 source) Hepatitis C antibody test positive; Translations: [Other specified abnormal immunological findings in serum] Episodic Lymphadenitis (1 source) Localized enlarged lymph nodes; Translations: [Localized enlarged lymph nodes] 12-19-2023 Episodic Nutritional deficiencies (13 sources) Deficiency of macronutrients; Translations: [Unspecified severe protein-calorie malnutrition] Onset: 02-27-2018 02-27-2018 Chronic Other hematologic conditions (12 sources) Myelosuppression; Translations: [Other specified diseases of blood and blood-forming organs] Onset: 03-24-2018 03-24-2018 Chronic Other injuries and conditions due to external causes (2 sources) Radiation injury; Translations: [Radiation sickness, unspecified, sequela] Episodic Other non-traumatic joint disorders (4 sources) Pain in right ankle and joints of right foot; Translations: [PAIN IN RIGHT ANKLE] Onset: 01-27-2023 Episodic Other upper respiratory disease (12 sources) Hoarse; Translations: [Dysphonia] 01-12-2018 Episodic Secondary malignancies (13 sources) Metastatic squamous cell carcinoma; Translations: [Secondary malignant neoplasm of other specified sites] 01-12-2018 Chronic Substance-related disorders (1 source) Smoker 08-07-2020 Chronic Thyroid disorders (1 source) Disorder of thyroid gland; Translations: [Disorder of thyroid, unspecified] Episodic Past or Other Problems Problem Classification Problem Date Documented Da te Episodic/Chronic Other lower respiratory disease (13 sources) Multiple nodules of lung; Translations: [Other nonspecific abnormal finding of lung field] Onset: 12-18-2020 12-18-2020 Episodic Other lower respiratory disease (1 source) Other nonspecific abnormal finding of lung field; Translations: [Lung nodules] Onset: 12-18-2020 Episodic Poisoning by other medications and drugs (12 sources) Mucositis following radiation therapy; Translations: [Oral mucositis (ulcerative) due to radiation] Onset: 02-27-2018 02-27-2018 Episodic Results Test Name Value Interpretation Reference Range Angela Hernandez 12-19-2023 CNOVSP Visit (SP) Office ([facility]) ADELFO NOLAN ([id number]) 1955 M Date Time Provider Department 12/19/23 10:30 AM WYATT GARZA During your visit today, we recorded the following information about you: Temperature Pulse Respiration Blood pressure 97.6 degrees 71/minute 16/minute 145/78 Weight Height 68.6 kg 1.651 m Wyatt Garza MD 12/19/2023 9:13 PM Signed NAME: Adelfo Nolan CLINIC NO.: [id number] DATE OF SERVICE: December 19, 2023 ([facility]) Some elements in this clinic note that are critical to medical decision making have been carefully reviewed and included from a prior clinic note dated: December 16, 2022 ([facility]) Additional Clinicians involved in Adelfo Nolan's care: Willa Baez Noma Dakhil CC: Head and neck cancer follow-up. 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 However he has some prominent mediastinal LN's that will need to followed. Most likely they are reactive due to recent Upper Airway infection that he is recovering from. However, he remains at high risk due to ongoing tobacco use. Chronic cytopenias with low WBC's and Platelets - both stable since 2019. Etiology associated with underlying liver disease and +HepC. Hepatitis C has been irradicated. PLAN: CT Chest in 6 weeks RTC 1 week after to review If CT Chest clear then pursue routine annual visits CT Neck Chest in 12 months labs same day Labs in 1 year with scans include CBC, CMP RTC in 12 months with me to review - HPI: CASE HISTORY: Reverse Chronological Order 12/16/2023 - CT Neck/Chest: Stable appearance of the soft tissues of the neck since 12/15/2022. No evidence of recurrent soft tissue mass or significant cervical lymphadenopathy by size criteria. 1. Stable appearance of bilateral pulmonary nodules. No new or enlarging nodules are seen. 2. Slight interval increase in size of a left paratracheal node. Other mediastinal nodes are similar to prior exam. 12/15/2022 - CT Neck/Chest: Post-treatment changes without discrete residual/recurrent neoplasm or evidence of pathologic lymphadenopathy in the neck. Incompletely evaluated upper mediastinal lymphadenopathy. 7 mm part solid right middle lobe nodule appears slightly more conspicuous in size from the prior study of 12/16/2021. Correlation with continued follow-up examinations is recommended. Additional subcentimeter pulmonary nodules bilaterally, unchanged. Several subcentimeter mediastinal lymph nodes are again identified, relatively stable in appearance. 12/16/2021 - CT Neck/Chest w/Cont: Stable anterior neck treatment changes. No evidence for any recurrent/residual or new abnormality. Incompletely evaluated superior mediastinal adenopathy. Chest: New subtle subcentimeter groundglass opacities in the right middle lobe most likely infectious/inflammato ry in etiology. Consider follow-up to complete resolution. Other previously noted nodular opacities measuring up to 5 mm, stable since 05/21/20. Diffuse hepatic fatty infiltration. Mild emphysematous changes of the lungs. 12/16/2020 - CT Neck / Chest: Stable posttreatment changes in the neck without evidence of recurrence. No cervical lymphadenopathy. No interval change since 05/11/2020. Subcentimeter nodular opacities measuring up to 5 mm, stable. Diffuse hepatic fatty infiltration. Mild emphysematous changes of the lungs. 05/21/2020 - CT N/Chest: Bilateral 3 mm or less pulmonary nodules are felt to be stable from the prior PET/CT examination of 05/23/2019. No substantial intrathoracic adenopathy is identified. Interval resolution the previously identified right tongue/oral cavity mass. no pathologic enhancement on this examination. no evidence of new mass or adenopathy in the neck. December 2017 - P16 positive head and neck cancer, in remission post chemotherapy/radiatio n Updated Visit, December 19, 2023: Thom returns today, he has been doing well. We reviewed his CT scans, lymph nodes increased, likely due to recent illness. Chest CT to recheck. HepC has cleared, no need for more GI following. He has one son, 26 years old. Updated Visit, December 16, 2022: HCV resolved with treatment. Doing well. Continues to smoke but is going to try to quit. CT shows no evidence of recurrence CT chest with sligt increase in 7 mm RML nodule compared to 1 year ago. Will re-eval in 1 year. Updated Visit, December 17, 2021: Started reviewing his case for cytopenias and noted his + HepC RNA. Looks like he never went back and ended up not getting primary treatment for it. Labs are stable but I'll get him back in with GI. TSH 2.4 Was sick for the entire month of November 2021 (more content not included)... Normal [facility] Abe 12-19-2023 CNPN Telephone (SHANI) ADELFO NOLAN ([id number]) 1955 M Date Time Provider Department 12/19/23 ZENY TOM During your visit today, we recorded the following information about you: Zeny Tom RN 12/19/2023 12:17 PM Signed ----- Message from Wyatt Garza MD sent at 12/17/2023 8:59 AM EST ----- Scans are stable - I will discuss at his appointment. Zeny Tom RN 12/19/2023 12:19 PM Signed Pt informed of [employer]'s message and denies any questions, needs or concerns at this time.(Pt had appt today with Frankie and discussed) Appointments verified. Zeny Tom RN Allergies As of Date: 12/19/2023 (No Known Allergies) Date Reviewed: 12/19/2023 Reviewed by: Felipa Sosa MA - Fully Assessed Reason for Visit: Results [95] Prescriptions as of 12/19/2023 - tamsulosin (FLOMAX) 0.4 mg Take 1 capsule by mouth every afternoon. - iv contrast (will be provided with radiology test) CT Chest W -Inject, intravenously, once for 1 dose.No IV access, insert saline lock prior to the beginning of sedation, infusion, injection of imaging exam. Discontinue saline lock post exam. If Pt. has a central line or IVAD, may access for administration according to line specific nursing protocol. Once exam is complete flush line and de-access according to line specific nursing protocol in the CT contrast administration guidelines link. Problem List As Of Date 12/19/2023 Noted Resolved Metastatic squamous cell carcinoma to head and * Hoarse voice quality [R49.0] Mucositis due to radiation therapy [K12.33] 02/27/2018 Severe protein-calorie malnutrition (HCC) [E43] 02/27/2018 Myelosuppression [D75.89] 03/24/2018 Malignant neoplasm of head, face and neck (HCC)*12/18/2020 Lung nodules [R91.8] 12/18/2020 Encounter Status:Closed by ZENY TOM on 12/19/23 Normal [facility] CBC W Auto Differential pane l (Bld)on 12-16-2023 Basophils (Bld) [#/Vol] 0.05 10*3/uL Normal <0.11 [facility] Comment on above: Order Comment: Speci men Type: BLOOD SPECIMEN Ordering Facility: [facility] Address: [address] [place] [address] Performed By: #### 5 7021-8 #### [facility] CLIA [id number] [address] [place] [address] 12414 Basophils/100 WBC (Bld) 1.2 % Normal [facility] Comment on above: Order Comment: Speci men Type: BLOOD SPECIMEN Ordering Facility: [facility] Address: [facility] [place] [address] Performed By: #### 5 7021-8 #### [facility] CLIA [id number] [address] [place] [address] 21743 Differential cell count method Nom (Bld) Auto Normal [facility] Comment on above: Order Comment: Speci men Type: BLOOD SPECIMEN Ordering Facility: [facility] Address: [address] [place] [address] Performed By: #### 5 7021-8 #### [facility] CLIA [id number] [address] [place] [address] 43519 Eosinophils (Bld) [#/Vol] 0.04 10*3/uL Normal <0.46 [facility] Comment on above: Order Comment: Speci men Type: BLOOD SPECIMEN Ordering Facility: [facility] Address: [address] [place] [address] Performed By: #### 5 7021-8 #### [facility] CLIA [id number] [address] [place] [address] 88686 Eosinophils/100 WBC (Bld) 0.9 % Normal [facility] Comment on above: Order Comment: Speci men Type: BLOOD SPECIMEN Ordering Facility: [facility] Address: [address] [place] [address] Performed By: #### 5 7021-8 #### [facility] CLIA [id number] [address] [place] [address] 42321 Erythrocyte distribution width (RBC) [Ratio] 13.1 % Normal 11.5-15.0 [facility] Comment on above: Order Comment: Speci men Type: BLOOD SPECIMEN Ordering Facility: [facility] Address: [address] [place] [address] Performed By: #### 5 7021-8 #### [facility] CLIA [id number] [address] [place] [address] 11723 Hematocrit (Bld) [Volume fraction] 38.0 % Low 39.0-51.0 [facility] Comment on above: Order Comment: Speci men Type: BLOOD SPECIMEN Ordering Facility: [facility] Address: [address] [place] [address] Performed By: #### 5 7021-8 #### [facility] CLIA [id number] [address] [place] [address] 50998 Hemoglobin (Bld) [Mass/Vol] 12.9 g/dL Low 13.0-17.0 [facility] Comment on above: Order Comment: Speci men Type: BLOOD SPECIMEN Ordering Facility: [facility] Address: [address] [place] [address] Performed By: #### 5 7021-8 #### [facility] CLIA [id number] [address] [place] [address] 88125 Immature granulocytes (Bld) [#/Vol] 10*3/uL Normal <0.10 [facility] Comment on above: Order Comment: Speci men Type: BLOOD SPECIMEN Ordering Facility: [facility] Address: [address] [place] [address] Performed By: #### 5 7021-8 #### [facility] CLIA [id number] [address] [place] [address] 37379 Immature granulocytes/100 WBC (Bld) 0.2 % Normal [facility] Comment on above: Order Comment: Speci men Type: BLOOD SPECIMEN Ordering Facility: [facility] Address: [address] [place] [address] Performed By: #### 5 7021-8 #### [facility] CLIA [id number] [address] [place] [address] 49799 Lymphocytes (Bld) [#/Vol] 0.83 10*3/uL Low 1.00-4.00 [facility] Comment on above: Order Comment: Speci men Type: BLOOD SPECIMEN Ordering Facility: [facility] Address: [address] [place] [address] Performed By: #### 5 7021-8 #### [facility] CLIA [id number] [address] [place] [address] 65794 Lymphocytes/100 WBC (Bld) 19.5 % Normal [facility] Comment on above: Order Comment: Speci men Type: BLOOD SPECIMEN Ordering Facility: [facility] Address: [address] [place] [address] Performed By: #### 5 7021-8 #### [facility] CLIA [id number] [address] [place] [address] 55253 MCH (RBC) [Entitic mass] 31.7 pg Normal 26.0-34.0 [facility] Comment on above: Order Comment: Speci men Type: BLOOD SPECIMEN Ordering Facility: [facility] Address: [address] [place] [address] Performed By: #### 5 7021-8 #### [facility] CLIA [id number] [address] [place] [address] 51200 MCHC (RBC) [Mass/Vol] 33.9 g/dL Normal 30.5-36.0 [facility] Comment on above: Order Comment: Speci men Type: BLOOD SPECIMEN Ordering Facility: [facility] Address: [address] [place] [address] Performed By: #### 5 7021-8 #### [facility] CLIA [id number] [address] [place] [address] 89213 MCV (RBC) [Entitic vol] 93.4 fL Normal 80.0-100.0 [facility] Comment on above: Order Comment: Speci men Type: BLOOD SPECIMEN Ordering Facility: [facility] Address: [address] [place] [address] Performed By: #### 5 7021-8 #### [facility] CLIA [id number] [address] [place] [address] 61073 Monocytes (Bld) [#/Vol] 0.37 10*3/uL Normal <0.87 [facility] Comment on above: Order Comment: Speci men Type: BLOOD SPECIMEN Ordering Facility: [facility] Address: [address] [place] [address] Performed By: #### 5 7021-8 #### [facility] CLIA [id number] [address] [place] [address] 80425 Monocytes/100 WBC (Bld) 8.7 % Normal [facility] Comment on above: Order Comment: Speci men Type: BLOOD SPECIMEN Ordering Facility: [facility] Address: [address] [place] [address] Performed By: #### 5 7021-8 #### [facility] CLIA [id number] [address] [place] [address] 57890 Neutrophils (Bld) [#/Vol] 2.95 10*3/uL Normal 1.45-7.50 [facility] Comment on above: Order Comment: Speci men Type: BLOOD SPECIMEN Ordering Facility: [facility] Address: [address] [place] [address] Performed By: #### 5 7021-8 #### [facility] CLIA [id number] [address] [place] [address] 09397 Neutrophils/100 WBC (Bld) 69.5 % Normal [facility] Comment on above: Order Comment: Speci men Type: BLOOD SPECIMEN Ordering Facility: [facility] Address: [address] [place] [address] Performed By: #### 5 7021-8 #### [facility] CLIA [id number] [address] [place] [address] 27633 Nucleated RBC (Bld) [#/Vol] 10*3/uL Normal <0.01 [facility] Comment on above: Order Comment: Speci men Type: BLOOD SPECIMEN Ordering Facility: [facility] Address: [address] [place] [address] Performed By: #### 5 7021-8 #### [facility] CLIA [id number] [address] [place] [address] 84647 Nucleated RBC/100 WBC (Bld) [Ratio] 0.0 /100 WBC Normal [facility] Comment on above: Order Comment: Speci men Type: BLOOD SPECIMEN Ordering Facility: [facility] Address: [address] [place] [address] Performed By: #### 5 7021-8 #### [facility] CLIA [id number] [address] [place] [address] 64242 Platelet mean volume (Bld) [Entitic vol] 9.6 fL Normal 9.0-12.7 [facility] Comment on above: Order Comment: Speci men Type: BLOOD SPECIMEN Ordering Facility: [facility] Address: [address] [place] [address] Performed By: #### 5 7021-8 #### [facility] CLIA [id number] [address] [place] [address] 48124 Platelets (Bld) [#/Vol] 197 10*3/uL Normal 150-400 [facility] Comment on above: Order Comment: Speci men Type: BLOOD SPECIMEN Ordering Facility: [facility] Address: [address] [place] [address] Performed By: #### 5 7021-8 #### [facility] CLIA [id number] [address] [place] [address] 77737 RBC (Bld) [#/Vol] 4.07 10*6/uL Low 4.20-6.00 [facility] Comment on above: Order Comment: Speci men Type: BLOOD SPECIMEN Ordering Facility: [facility] Address: [address] [place] [address] Performed By: #### 5 7021-8 #### [facility] CLIA [id number] [address] [place] [address] WBC (Bld) [#/Vol] 4.25 10*3/uL Normal 3.70-11.00 [facility] Comment on above: Order Comment: Speci men Type: BLOOD SPECIMEN Ordering Facility: [facility] Address: [address] [place] [address] Performed By: #### 5 7021-8 #### [facility] CLIA [id number] [address] [place] [address] CT CHEST W IVCONon 4 CT CHEST W IVCON * * *Final Report* * * DATE OF EXAM: Dec 16 2023 10:46AM [facility] 0539 - CT CHEST W IVCON / PROCEDURE REASON: Lung nodules * * * * Physician Interpretation * * * * RESULT: EXAMINATION: CHEST CT WITH CONTRAST CLINICAL HISTORY: Lung nodules. Technique: Spiral CT acquisition of the chest from the thoracic inlet to the upper abdomen following IV contrast. MQ: CTCW_6 Contrast: 100 mL Omnipaque [address] Radiation dose: Integrated Dose-length product (DLP) for this visit = 852 mGy*cm CT Dose Reduction Employed: Automated exposure control (AEC) Comparison: CT chest performed 12/15/2022 RESULT: Limitations: None. Lines, tubes, and devices: None. Lung parenchyma and airways: There is dependent atelectasis. No lobar consolidation is visualized. There is mild centrilobular emphysema. Bilateral nodular opacities are again noted. These include the following: Right upper lobe (4:53) 3 mm, stable Right middle lobe (4:129) 7 mm, stable Left upper lobe (4:69) 3 mm, stable No new or enlarging nodules are seen. The central airways are widely patent. Pleural space: No pleural effusion. No pleural thickening. Lower neck, lymph nodes, and mediastinum: Multiple enlarged mediastinal nodes are visualized. An AP window/left paratracheal node is seen (3:66), now measuring 1.5 x 1.1 cm, previously 1.5 x 0.9 cm. A right paratracheal node is seen measuring up to 0.9 cm in short axis, previously 0.8 cm. A right superior paratracheal node is seen measuring 0.9 cm in short axis, stable. There is a right hilar node measuring up to 0.9 cm, similar to prior exam. Heart, pericardium, and thoracic vessels: The thoracic aorta and main pulmonary artery are normal in caliber. The cardiac chambers are normal in size. Coronary artery atherosclerotic calcification is noted. No pericardial effusion or thickening. Bones and soft tissues: No destructive bone lesion. Chest wall is unremarkable. Upper abdomen: No abnormality in the imaged upper abdomen. Beveler (topogram) images: No additional findings. IMPRESSION: 1. Stable appearance of bilateral pulmonary nodules. No new or enlarging nodules are seen. 2. Slight interval increase in size of a left paratracheal node. Other mediastinal nodes are similar to prior exam. Transcribe Date/Time: Dec 16 2023 2:14P Dictated by: ALYSSA VALLADARES MD This examination was interpreted and the report reviewed and electronically signed by: ALYSSA VALLADARES MD on Dec 16 2023 2:45PM EST Thank you for allowing us to participate in the care of your patient. Should there be any questions regarding this interpretation, please call [phone]. If you are unable to reach us at the number above, please feel free to contact [facility] at [phone]. 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 Prior radiation therapy completed March 2018. Technique: CT of the soft tissues of the neck with IV contrast. A series of contiguous helical scans were performed from the skull base to the aortic arch. M: CTNW_1 Contrast: 100 mL Omnipaque [address] Dose-Length Product (DLP): 852 mGy*cm CT Dose Reduction Employed: Automated exposure control (AEC) COMPARISON: 12/15/2022 RESULT: Postoperative change: None apparent. Suprahyoid Neck: Nasopharynx remains within normal limits. Again noted is mild asymmetric soft tissue thickening along the right lateral and dorsal lateral margins of the oropharynx which is stable in configuration and attenuation. The oropharynx otherwise appears to be within normal limits. Again noted is loss of normal soft tissue planes in the right parapharyngeal and submandibular regions, likely related to prior radiation therapy. Mild reduction in caliber of the dorsal aspect of the tongue to the right of midline, likely related to prior radiation therapy. Continued mild asymmetric soft tissue thickening along the right lateral wall of the caudal oropharynx. No evidence of recurrent confluent soft tissue mass in this region. The submandibular glands are relatively small and increased in attenuation and both parotid glands are somewhat increased in attenuation, likely related to prior radiation therapy. The soft tissue planes of the adjacent lead custodian spaces are maintained. Mild dystrophic calcification is again noted in the submental and left submandibular regions. Streaky densities are again noted in the subcutaneous fat in the submental and both submandibular regions, likely related to prior radiation. Infrahyoid Neck: Hypopharynx, larynx, and imaged infraglottic trachea appear normal. Mild dystrophic calcification is again noted along the ventral caudal margin of the epiglottis. Imaged upper esophagus is unremarkable. Thyroid gland is homogeneous without evidence of discrete nodule. Lymph Nodes: Scattered lymph nodes are again noted in the paratracheal, pretracheal, subcarinal regions and in the AP window, largest of which is noted in the AP window measuring 10 mm in short axis. No significant interval change. Carotid Space: The soft tissue planes of each carotid space are maintained. Atherosclerotic calcifications are again noted in the carotid bifurcations, left greater than right. Patent extracranial carotid systems and internal jugular veins bilaterally. Orbits, Face and Skull Base: Orbital soft tissue planes are preserved. . Small polyp or retention cyst is noted in the left maxillary antrum. Paranasal sinuses are otherwise clear.. Mastoid air cells and middle ear cavities are clear. . No evidence of an osteolytic or osteoblastic process in the skull base. . . Imaged intracranial contents: There is moderate enlargement of the lateral and third ventricles suggesting central white matter volume loss in view of the patient's chronologic age. Subtle patchy low-attenuation is noted in the visualized supratentorial white matter which is nonspecific but likely represents mild microvascular ischemia. Cervical spine and remaining osseous structures: Alignment is normal. No discrete osteolytic or osteoblastic process. No significant spondylotic changes in the visualized spine. Additional note is made of mild loss in height of the C3-C7 vertebral bodies suggesting mild remote benign compression fractures. Lung apices: Emphysematous changes are noted in the visualized lung apices. Other: Not applicable. IMPRESSION: Stable appearance of the soft tissues of the neck since 12/15/2022. No evidence of recurrent soft tissue mass or significant cervical lymphadenopathy by size criteria. Transcribe Date/Time: Dec 16 2023 11:49A Dictated by: RHETT LO MD This examination was interpreted and the report reviewed and electronically signed by: RHETT LO MD on Dec 16 2023 12:02PM EST Thank you for allowing us to participate in the care of your patient. Should there be any questions regarding this interpretation, please call [phone]. If you are unable to reach us at the number above, please feel free to contact [facility]iology at [phone]. [id number] N Normal [facility] Comprehensive metabolic 2000 panelon 12-16-2023 Albumin [Mass/Vol] 4.4 g/dL Normal 3.9-4.9 [facility] Comment on above: Order Comment: Speci men Type: BLOOD SPECIMEN Ordering Facility: [facility] Address: [address] [place] [address] Performed By: #### 2 4323-8 #### [facility] CLIA [id number] [address] [place] [address] ALP [Catalytic activity/Vol] 76 U/L Normal 38-113 [facility] Comment on above: Order Comment: Speci men Type: BLOOD SPECIMEN Ordering Facility: [facility] Address: [address] [place] [address] Performed By: #### 2 4323-8 #### [facility] CLIA [id number] [address] [place] [address] ALT [Catalytic activity/Vol] 9 U/L Low 10-54 [facility] Comment on above: Order Comment: Speci men Type: BLOOD SPECIMEN Ordering Facility: [facility] Address: [address] [place] [address] Performed By: #### 2 4323-8 #### [facility] CLIA [id number] [address] [place] [address] Anion gap [Moles/Vol] 11 mmol/L Normal 9-18 [facility] Comment on above: Order Comment: Speci men Type: BLOOD SPECIMEN Ordering Facility: [facility] Address: [address] [place] [address] Performed By: #### 2 4323-8 #### [facility] CLIA [id number] [address] [place] [address] AST [Catalytic activity/Vol] 21 U/L Normal 14-40 [facility] Comment on above: Order Comment: Speci men Type: BLOOD SPECIMEN Ordering Facility: [facility] Address: [address] [place] [id number] Performed By: #### 2 4323-8 #### [facility] CLIA [id number] [address] [place] [address] Bilirubin [Mass/Vol] 0.8 mg/dL Normal 0.2-1.3 [facility] Comment on above: Order Comment: Speci men Type: BLOOD SPECIMEN Ordering Facility: [facility] Address: [address] [place] [address] Performed By: #### 2 4323-8 #### [facility] CLIA [id number] [address] [place] [address] Calcium [Mass/Vol] 10.2 mg/dL Normal 8.5-10.2 [facility] Comment on above: Order Comment: Speci men Type: BLOOD SPECIMEN Ordering Facility: [facility] Address: [address] [place] [address] Performed By: #### 2 4323-8 #### [facility] CLIA [id number] [address] [place] [address] Chloride [Moles/Vol] 99 mmol/L Normal 97-105 [facility] Comment on above: Order Comment: Speci men Type: BLOOD SPECIMEN Ordering Facility: [facility] Address: [address] [place] [address] Performed By: #### 2 4323-8 #### [facility] CLIA [id number] [address] [place] [address] CO2 [Moles/Vol] 25 mmol/L Normal 22-30 [facility] Comment on above: Order Comment: Gretel hilario Type: BLOOD SPECIMEN Ordering Facility: [facility] Address: [address] [place] [address] Performed By: #### 2 4323-8 #### [facility] CLIA [id number] [address] [place] [address] Creatinine [Mass/Vol] 0.84 mg/dL Normal 0.73-1.22 [facility] Comment on above: Order Comment: Gretel men Type: BLOOD SPECIMEN Ordering Facility: [facility] Address: [address] [place] [address] Performed By: #### 2 4323-8 #### [facility] CLIA [id number] [address] [place] [address] Creatinine and Glomerular filtration rate.predicted panel (S/P/Bld) 96 mL/min/1.73m??? Normal >=60 [facility] Comment on above: Order Comment: Gretel hilario Type: BLOOD SPECIMEN Ordering Facility: [facility] Address: [address] [place] [address] Result Comment: Lulú mated Glomerular Filtration Rate (eGFR) is calculated using the 2020 CKD-EPI creatinine equation. This equation utilizes serum creatinine, sex, and age as parameters. The creatinine assay has traceable calibration to isotope dilution-mass spectrometry. Refer to KDIGO guidelines for clinical interpretation. In patients with unstable renal function, e.g. those with acute kidney injury, the eGFR may not accurately reflect actual GFR. Performed By: #### 2 4323-8 #### [facility] CLIA [id number] [address] [place] [address]87 Glucose [Mass/Vol] 99 mg/dL Normal 74-99 [facility] Comment on above: Order Comment: Gretel hilario Type: BLOOD SPECIMEN Ordering Facility: [facility] Address: [address] [place] [id number] Result Comment: The [place] Diabetes Association (ADA) provides guidance for cutoff values for fasting glucose and random glucose. The ADA defines fasting as no caloric intake for at least 8 hours. Fasting plasma glucose results between 100 to 125 mg/dL indicate increased risk for diabetes (prediabetes). Fasting plasma glucose results greater than or equal to 126 mg/dL meet the criteria for diagnosis of diabetes. In the absence of unequivocal hyperglycemia, results should be confirmed by repeat testing. In a patient with classic symptoms of hyperglycemia or hyperglycemic crisis, random plasma glucose results greater than or equal to 200 mg/dL meet the criteria for diagnosis of diabetes. Reference: Standards of Medical Care in Diabetes 2016, [place] Diabetes Association. Diabetes Care. 2016.39(Suppl 1). Performed By: #### 2 4323-8 #### [facility] CLIA [id number] [address] [place] [address] Potassium [Moles/Vol] 4.5 mmol/L Normal 3.7-5.1 [facility] Comment on above: Order Comment: Arturi yanelis Type: BLOOD SPECIMEN Ordering Facility: [facility] Address: [address] [place] [address] Performed By: #### 2 4323-8 #### [facility] CLIA [id number] [address] [place] [address] Protein [Mass/Vol] 7.2 g/dL Normal 6.3-8.0 [facility] Comment on above: Order Comment: Arturi yanelis Type: BLOOD SPECIMEN Ordering Facility: [facility] Address: [address] [place] [id number] Performed By: #### 2 4323-8 #### [facility] CLIA [id number] [address] [place] [address] Sodium [Moles/Vol] 135 mmol/L Low 136-144 [facility] Comment on above: Order Comment: Speci men Type: BLOOD SPECIMEN Ordering Facility: [facility] Address: [address] [place] [address] Performed By: #### 2 4323-8 #### [facility] CLIA [id number] [address] [place] [address] Urea nitrogen [Mass/Vol] 12 mg/dL Normal 9-24 [facility] Comment on above: Order Comment: Speci men Type: BLOOD SPECIMEN Ordering Facility: [facility] Address: [address] [id number] Performed By: #### 2 4323-8 #### [facility] CLIA [id number] [address] [place] [address] Provider Letteron 03-16-2023 Provider Letter March 16, 2023 ADELFO NOLAN [address] [place] [phone] ADELFO NOLAN 1955 Dear Megha Lito , We have been trying to reach you with no success as your voicemail was full. You had an appointment scheduled with Dr. Sushil Edgar ([facility]) on April 12 which will need to be rescheduled since he has retired - we can reschedule you with another provider in our practice. Please contact the office at the number listed below to get this appointment rescheduled at your earliest convenience. Thank you for your prompt attention to this matter. Please call [phone] and choose the human resources representative option. Sincerely, [facility] [address] [place], [place] [id number] [facility] Provider Letteron 03-03-2023 Provider Letter March 03, 2023 ADELFO NOLAN [address] [place] [phone] ADELFO NOLAN 1955 Dear Thom , We have been trying to reach you with no success. You have an appointment with Dr. Sushil Edgar on 04/12/2023 which will need to be rescheduled. Please contact the office at the number listed below to get this appointment rescheduled at your earliest convenience. Thank you for your prompt attention to this matter. Sincerely, [facility] [address] [facility], [place] [address] [facility] XR ANKLE RT MIN 3 VIEWSon XR ANKLE RT MIN 3 VIEWS EXAM: XR ANKLE RT MIN 3 VIEWS HISTORY: Pain of right ankle joint . Follow-up study. COMPARISON: 12/28/2022 TECHNIQUE: 3 views of the right ankle were obtained. FINDINGS: There is a comminuted fracture involving the distal shaft and metaphysis of the fibula, with a prominent oblique component. The distal fracture fragments are now displaced 3 mm lateral with minimal angulation. Some periosteal changes are present indicating ongoing osseous healing. The ankle joint appears intact and no osteochondral injury is identified. An osteophyte arises from the insertion site of the Achilles tendon. Soft tissue swelling is noted along the lateral aspect of the ankle. IMPRESSION: The comminuted fracture in the distal fibula shows early evidence of ongoing osseous healing. The fracture lines remain visible and the distal fracture fragments are now slightly displaced. Soft tissue swelling laterally persists. Electronically authenticated by: ACE ARREOLA Date: 2023-01-27 14:40 Normal [facility] XR ANKLE RT MIN 3 VIEWSon XR ANKLE RT MIN 3 VIEWS EXAM: XR ANKLE RT MIN 3 VIEWS HISTORY: Pain of right ankle joint COMPARISON: Ankle radiographs from 12/28/2022 TECHNIQUE: AP, lateral, oblique radiographs of the ankle labeled right FINDINGS: Comminuted fracture of the distal fibula extending above the joint line. Small osseous fracture fragment projects at the anterior margin of the ankle measuring 0.2 cm. Diffuse soft tissue swelling about the ankle. Os trigonum. Achilles and plantar calcaneal enthesophytes. IMPRESSION: 1. Unchanged alignment of the distal fibular fracture. 2. Soft tissue edema about the ankle. Electronically authenticated by: BENEDICTO THAO Date: 2022-12-29 12:44 Normal [facility] Ambulatory Visit Summaryon 0 04-06-2022 Ambulatory Visit Summary ADELFO NOLAN :1955 Visit Date:04/06/2022 Ambulatory Visit Instructions Your Diagnosis BPH without urinary obstruction Nocturia Tests Performed Urnls Dip Stick Auto w/o Microscopy POC 200[address] Your Care Team Attending Physician - Herve Flores MD, Sushil De Leon Primary Care Physician - Elba Crouch MD This Is Your Medications List Contact prescribing physician if questions or concerns sofosbuvir-velpatasvi r (Epclusa 400 mg-100 mg oral tablet) Procedures Performed Cystoscopy (03/04/2021), Cystoscopy (09/01/2020), Biopsy of tongue, Chemotherapy. Discharge Vitals Heart Rate (Peripheral) 72 Respiratory Rate 16 Blood Pressure 141/89 Height 168 cm Height 168.0 cm Weight 63 kg Weight 63.0 kg BMI 22.32 What to do next Scheduled Follow-Up Appointments Tuesday 8:00 AM EDT With: Herve Flores MD, Sushil De Leon Where: [facility] Jose Mancini [facility] Patient Educationon 04-06-20 22 Patient Education Urology Hematuria, Adult Hematuria is blood in the urine. Blood may be visible in the urine, or it may be identified with a test. This condition can be caused by infections of the bladder, urethra, kidney, or prostate. Other possible causes include: ? Kidney stones. ? Cancer of the urinary tract. ? Too much calcium in the urine. ? Conditions that are passed from parent to child (inherited conditions). ? Exercise that requires a lot of energy. Infections can usually be treated with medicine, and a kidney stone usually will pass through your urine. If neither of these is the cause of your hematuria, more tests may be needed to identify the cause of your symptoms. It is very important to tell your health care provider about any blood in your urine, even if it is painless or the blood stops without treatment. Blood in the urine, when it happens and then stops and then happens again, can be a symptom of a very serious condition, including cancer. There is no pain in the initial stages of many urinary cancers. Follow these instructions at home: Medicines ? Take hdmh-hxa-sivlqxf and prescription medicines only as told by your health care provider. ? If you were prescribed an antibiotic medicine, take it as told by your health care provider. Do not stop taking the antibiotic even if you start to feel better. Eating and drinking ? Drink enough fluid to keep your urine clear or pale yellow. It is recommended that you drink 3?4 quarts (2.8?3.8 L) a day. If you have been diagnosed with an infection, it is recommended that you drink cranberry juice in addition to large amounts of water. ? Avoid caffeine, tea, and carbonated beverages. These tend to irritate the bladder. ? Avoid alcohol because it may irritate the prostate (men). General instructions ? If you have been diagnosed with a kidney stone, follow your health care provider's instructions about straining your urine to catch the stone. ? Empty your bladder often. Avoid holding urine for long periods of time. ? If you are female: ? After a bowel movement, wipe from front to back and use each piece of toilet paper only once. ? Empty your bladder before and after sex. ? Pay attention to any changes in your symptoms. Tell your health care provider about any changes or any new symptoms. ? It is your responsibility to get your test results. Ask your health care provider, or the department performing the test, when your results will be ready. ? Keep all follow-up visits as told by your health care provider. This is important. Contact a health care provider if: ? You develop back pain. ? You have a fever. ? You have nausea or vomiting. ? Your symptoms do not improve after 3 days. ? Your symptoms get worse. Get help right away if: ? You develop severe vomiting and are unable take medicine without vomiting. ? You develop severe pain in your back or abdomen even though you are taking medicine. ? You pass a large amount of blood in your urine. ? You pass blood clots in your urine. ? You feel very weak or like you might faint. ? You faint. Summary ? Hematuria is blood in the urine. It has many possible causes. ? It is very important that you tell your health care provider about any blood in your urine, even if it is painless or the blood stops without treatment. ? Take ndvn-hor-fgmqtke and prescription medicines only as told by your health care provider. ? Drink enough fluid to keep your urine clear or pale yellow. This information is not intended to replace advice given to you by your health care provider. Make sure you discuss any questions you have with your health care provider. Document Released: 10/24/2006 Document Revised: 03/19/2020 Document Reviewed: 11/26/2017 [employer] Patient Education ? 2019 [employer]. [facility] Office/Clinic Noteon 04-06-2022 Urology Office/Clinic Note Chief Complaint 7 month with PSA This patient is a 66-year-old male with a history of gross painless hematuria. This has resolved. At present he states he is voiding without any difficulty. He still has occasionally discolored urine but he believes is related to the medication he is taking. Urinalysis was evaluated today. [facility] Staff Adelfo is here today for a 7 month follow up with PSA. Previous PSA done on 02/26/21 was 2.07. Pt states he got his PSA drawn at Dr. Baez I looked in clinsyoh and it shows T4 and testosterone. Previous DX: BPH without urinary obstruction, gross hematuria, nocturia, smoker. S/P Cysto 03/04/21. Dysuria: _Denies Incomplete bladder emptying: _Denies Hematuria: _Denies Frequency: _Denies Urgency: _Denies Nocturia: _2 times a night Stream: _good stream Leaking: _Denies Post void dripping: _Denies Wearing pads/ Depends: _Denies Urge incontinence: _Denies Stress incontinence: _Denies Incontinence without Sensory Awareness: _Denies Abdominal pain: _Denies Flank pain: _Denies Sexual complaints: _ History of Present Illness Tests Reviewed: Reviewed UA. I have reviewed the previous health record information and history for this patient from Dr. Edgar I have reviewed and verified the staff HPI to be accurate for this encounter. There have been no associated fever, chills, flank pain, or blood in the urine. Denies any urinary infections since last encounter. Review of Systems PHQ Score Initial Depression Screen Score: 0 ROS - Provider Constitutional: denies weight loss, denies hot flashes. Eyes: denies eye problems. Gastrointestinal: denies nausea, denies vomiting. Cardiovascular: denies chest pain or angina. Integumentary: no dryness Musculoskeletal: denies musculoskeletal symptoms. ENMT: denies otolaryngeal symptoms. Respiratory: no shortness of breath. Heme/Lymph: denies easy bleeding tendency, denies easy bruising tendency. Psychiatric: no confusion, no anxiety. Genitourinary: denies dysuria, denies hematuria, denies discharge, denies urinary frequency, denies urinary hesitancy, denies nocturia, denies incontinence, denies genital sores, denies decreased libido, and denies erectile dysfunction. Physical Exam Vitals & Measurements HR: 72(Peripheral) RR: 16 BP: 141/89 HT: 168 cm HT: 168.0 cm WT: 63 kg WT: 63.0 kg BMI: 22.32 General Appearance: alert, no distress, well nourished, well developed male. Head: normocephalic . Eyes: normal orbit and globe. ENMT: normal examination of external ears. Chest: Lungs CTA, respirations non labored. Cardiovascular: regular rate and rhythm. Abdomen: soft, non distended, no tenderness, no mass or organomegaly, no hernia. Genitourinary: normal scrotum, normal testes, normal urethra, normal epididymis, normal vas deferens/spermatic cord. Flank Pain: none. Bladder: nonpalpable. Penis: normal shaft, normal glans. Prostate: normal prostate, estimated weight 40 gms, no hard nodule observed. Lymph Nodes: unremarkable palpation of the cervical area. Skin: warm, dry, no bruising. Psychiatric: cooperative, affect appropriate for age, normal judgement, euthymic mood. Assessment/Plan Patient has not passed history of gross painless hematuria that has resolved. At present he is voiding without much difficulty and is on no alpha blockers or other medications for his bladder or prostate. He does have a small amount of nocturia. The patient is scheduled for follow-up visit with a PSA blood test in 1 year. He has been instructed to contact office if he has any problems with voiding or changes in his overall voiding pattern including gross hematuria. 1. BPH without urinary obstruction (N40.0: Benign prostatic hyperplasia without lower urinary tract symptoms) Pt. is not on any BPH medications at this time and is doing well overall with his urination without bothersome symptoms. We will continue to follow. Patient did not have repeat psa level, most current PSA done 02/26/21 is 2.07 Will follow up in 1 year with psa. Ordered: PSA Total Urnls Dip Stick Auto w/o Microscopy POC 00680 2. Nocturia (R35.1: Nocturia) ongoing 2x a night Follow-up With When Contact Information Herve Flores MD, Sushil De Leon, URO In 1 year 04/06/2023 EDT [facility] [address], [place] [address]- Additional Instructions: w/psa Patient Education Hematuria, Adult IMariam personally scribed for Dr. Edgar on 04/06/2022 11:59:36. . Documentation recorded by the scribe, Mariam Mchugh, accurately reflects the services(s) I performed and decisions made by me. Authenticated by Sushil Edgar MD on [ Current Date and Time ]. Problem List/Past Medical History Ongoing BPH without urinary obstruction Gross hematuria History of tongue cancer 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 Nocturia Smoker Historical No qualifying data Procedure (more content not included)... Normal [facility] Comment on above: Result Comment: Elec tronically Signed By: Herve Flores MD, Sushil De Leon\.br\Date and Time Signed: 04/06/22 12:01 EDT\.br\Electronically Co-Signed By: Mariam Mchugh MA\.br\Date and Time Co-Signed: 04/06/22 11:59 EDT Vital Signs Date Time Vital Sign Value Performing Clinician Facility 12-19-2023 10:07-0500 Body height 165.1 cm Wyatt Garza MD Work Phone: [facility] 12-19-2023 10:07-0500 Body temperature 97.59 [degF] Wyatt Garza MD Work Phone: [facility] 12-19-2023 10:07-0500 Body weight 68.6 kg Wyatt Garza MD Work Phone: [facility] 12-19-2023 10:07-0500 Diastolic blood pressure 78 mm[Hg] Wyatt Garza MD Work Phone: [facility] 12-19-2023 10:07-0500 Heart rate 71 /min Wyatt Garza MD Work Phone: [facility] 12-19-2023 10:07-0500 Respiratory rate 16 /min Wyatt Garza MD Work Phone: [facility] 12-19-2023 10:07-0500 SaO2% (BldA) [Mass fraction] 98 % Wyatt Garza MD Work Phone: [facility] 12-19-2023 10:07-0500 Systolic blood pressure 145 mm[Hg] Wyatt Garza MD Work Phone: [facility] 12-16-2022 10:48-0500 Body height 165.1 cm Wyatt Garza MD Work Phone: [facility] 12-16-2022 10:48-0500 Body temperature 97.59 [degF] Wyatt Garza MD Work Phone: [facility] 12-16-2022 10:48-0500 Body weight 69.58 kg Wyatt Garza MD Work Phone: [facility] 12-16-2022 10:48-0500 Diastolic blood pressure 100 mm[Hg] Wyatt Garza MD Work Phone: [facility] 12-16-2022 10:48-0500 Heart rate 94 /min Wyatt Garza MD Work Phone: [facility] 12-16-2022 10:48-0500 Respiratory rate 16 /min Wyatt Garza MD Work Phone: [facility] 12-16-2022 10:48-0500 SaO2% (BldA) [Mass fraction] 95 % Wyatt Garza MD Work Phone: [facility] 12-16-2022 10:48-0500 Systolic blood pressure 139 mm[Hg] Wyatt Garza MD Work Phone: [facility] 06-17-2022 10:45-0400 Body temperature 98.1 [degF] KAVIN Atkins MD Work Phone: [facility] 06-17-2022 10:45-0400 Body weight 66.22 kg KAVIN Atkins MD Work Phone: [facility] 06-17-2022 10:45-0400 Diastolic blood pressure 81 mm[Hg] KAVIN Atkins MD Work Phone: [facility] 06-17-2022 10:45-0400 Heart rate 89 /min KAVIN Atkins MD Work Phone: [facility] 06-17-2022 10:45-0400 Respiratory rate 18 /min KAVIN Atkins MD Work Phone: [facility] 06-17-2022 10:45-0400 SaO2% (BldA) [Mass fraction] 100 % KAVIN Atkins MD Work Phone: [facility] 06-17-2022 10:45-0400 Systolic blood pressure 146 mm[Hg] KAVIN Atkins MD Work Phone: [facility] 04-06-2022 11:34-0400 Blood Pressure Location Sushil Edgar Jr. [facility] 04-06-2022 11:34-0400 Diastolic blood pressure 89 mm[Hg] Sushil Edgar Jr. [facility] 04-06-2022 11:34-0400 Heart rate 72 /min Sushil Edgar Jr. [facility] 04-06-2022 11:34-0400 Respiratory rate 16 /min Sushil Edgar Jr. [facility] 04-06-2022 11:34-0400 Systolic blood pressure 141 mm[Hg] Sushil Edgar Jr. [facility] Encounters Encounter Date Encounter Type Care Provider Facility Start: 12-19-2023 Telephone encounter Zeny Torres Hematology/Oncology Comment on above: Results Start: 12-19-2023 End: 12-19-2023 ambulatory ELBA [facility] Facility:[facility] Start: 12-19-2023 End: 12-19-2023 Office outpatient visit 25 minutes Wyatt Garza MD Work Phone: Hematology/Oncology Comment on above: Localized enlarged l ymph nodes (Primary Dx); Severe protein-calorie malnutrition (HCC); Malignant neoplasm of head, face and neck (HCC); History of head and neck cancer Start: 12-16-2023 End: 12-16-2023 ambulatory ELBA CROUCH Facility:[facility] Start: 04-12-2023 ambulatory Sushil Edgar Facility : [place] Start: 03-10-2023 ambulatory LEONA Celaya y:[facility] Start: 01-27-2023 End: 01-28-[address] ELBA CROUCH . Facility:[facility] Start: 12-28-2022 End: 12-29-[address] ELBA CROUCH . Facility:[facility] Start: 12-28-2022 End: 12-29-[address] ELBA CROUCH . Facility:[facility] Start: 12-16-2022 End: 12-16-2022 Office outpatient visit 25 minutes Wyatt Garza MD Work Phone: Hematology/Oncology Comment on above: Malignant neoplasm o f head, face and neck (HCC) (Primary Dx); Lung nodules; Disorder of thyroid Start: 11-10-[address] ELBA CROUCH . Facili ty:[facility] Start: 07-29-2022 [facility] Comment on above: Chronic hepatitis C with hepatic coma (HCC) (Primary Dx) Start: 07-16-2022 ambulatory Bhavya Cohen [facility] Start: 07-16-2022 Follow-up encounter Bhavya Cohen [facility] Comment on above: SPP Hepatology - Fol low-up (Epclusa treatment complete) Start: 06-17-2022 End: 06-17-2022 Patient encounter procedure Moiz Atkins MD Work Phone: Radiation Oncology Comment on above: Effects of radiation , sequela (Primary Dx); Head and neck cancer (HCC) Start: 06-09-2022 Telephone encounter Moiz Atkins MD Work Phone: Radiation Oncology Comment on above: Lab Orders Start: 04-15-2022 ambulatory Bhavya Cohen [facility] Start: 04-15-2022 Follow-up encounter Bhavya Cohen [facility] Comment on above: SPP Hepatology - Fol low-up (Epclusa - End of Treatment) Start: 04-06-2022 End: 04-07-2022 ambulatory Sushil De Leon Edgar Facility:[facility] Start: 04-06-2022 End: 04-06-2022 Patient encounter procedure Sushil Edgar Jr. [facility] Start: 03-22-2022 Telephone encounter Nat de leon MD Work Phone: Gastroenterology Comment on above: Results Start: 03-11-2022 [facility] on above: SPP Hepatology - Med ication Refill (Epclusa) Start: 02-11-2022 Specialty Pharmacy [address]hav[address]alex Cohen [facility] Comment on above: SPP Hepatology - Med ication Refill (Epclusa) Start: 01-25-2022 Telephone encounter Nat de leon MD Work Phone: Gastroenterology Comment on above: Follow Up Start: 03-14-2018 End: 03-15-2018 Patient encounter procedure Elba Crouch Facility:[facility] Procedures Date Procedure Procedure Detail Performing Clinician Start: 12-17-2021 Adult depression scr eening assessment Nat Quintero MD Work Phone: Start: 03-04-2021 Cystoscopy Sushil martinez Jr. Start: 09-01-2020 Cystoscopy Sushil martinez Jr. Biopsy of tongue Sushil fiore Jr. Chemotherapy Sushil [place] Plan of Treatment Date Care Activity Detail Author Start: 12-16-2026 Diabetes Screening Diabetes Screenin moiz [facility] Start: 02-26-2026 PROSTATE CANCER SCREENING DISCUSSION PROSTATE CANCER SCREENING DISCUSSION [facility] Start: 12-15-2025 DIABETES SCREEN DIABETES SCREEN [facility] Start: 12-16-2024 DIABETES SCREEN DIABETES SCREEN [facility] Start: 12-16-2024 Screening for malign ant neoplasm of lung Lung Cancer Screening [facility] Start: 01-30-2024 End: 01-17-2025 CREATININE BLD CREATININE BLD Lab Routine Localized enlarged lymph nodes History of head and neck cancer Expected: 01/30/2024, Expires: 01/17/2025 [facility] Work Phone: Comment on above: Expected: 01/30/2024 , Expires: 01/17/2025 Start: 01-30-2024 End: 01-17-2025 CT Chest W contrast IV CT CHEST W IVCON Radiology Routine Localized enlarged lymph nodes History of head and neck cancer Expected: 01/30/2024, Expires: 01/17/2025 [facility] Work Phone: Comment on above: Expected: 01/30/2024 , Expires: 01/17/2025 Start: 12-16-2023 End: 12-16-2023 CBC W Auto Differential panel - Blood CBC + DIFF Lab Routine Lung nodules Expected: 12/16/2023 (Approximate), Expires: 12/16/2023 [facility] Work Phone: Comment on above: Expected: 12/16/2023 (Approximate), Expires: 12/16/2023 Start: 12-16-2023 End: 12-16-2023 Comprehensive metabolic 2000 panel - Serum or Plasma COMP METABOLIC PANEL Lab Routine Lung nodules Expected: 12/16/2023 (Approximate), Expires: 12/16/2023 [facility] Work Phone: Comment on above: Expected: 12/16/2023 (Approximate), Expires: 12/16/2023 Start: 12-16-2023 End: 01-15-2024 CT CHEST W IVCON CT CHEST W IVCON Radiology Routine Lung nodules Expected: 12/16/2023 (Approximate), Expires: 01/15/2024 [facility] Work Phone: Comment on above: Expected: 12/16/2023 (Approximate), Expires: 01/15/2024 Start: 12-16-2023 End: 01-15-2024 Ct soft tissue neck w/contrast material CT NECK SOFT TISSUE W IVCON Radiology Routine Lung nodules Expected: 12/16/2023 (Approximate), Expires: 01/15/2024 [facility] Work Phone: Comment on above: Expected: 12/16/2023 (Approximate), Expires: 01/15/2024 Start: 12-15-2023 Influenza vaccination LUNG CANCER [facility] Start: 11-07-2023 Advance Directive Discussion Advance Directive Discussion [facility] Start: 11-07-2023 [facility] Start: 07-08-2023 Influenza vaccination Influenza Vacc ine (#1) [facility] Start: 12-18-2022 End: 07-17-2023 Ct thorax w/o contrast material CT CHEST WO IVCON Radiology Routine Effects of radiation, sequela Head and neck cancer (HCC) Expected: 12/18/2022, Expires: 07/17/2023 [facility] Work Phone: Comment on above: Expected: 12/18/2022 , Expires: 07/17/2023 Start: 12-17-2022 Adult depression screening assessment DEPRESSION SCREENING [facility] Start: 12-16-2022 Influenza vaccination LUNG CANCER [facility] Start: 11-07-2022 ADVANCE DIRECTIVE DISCUSSION ADVANCE DIRECTIVE DISCUSSION [facility] Start: 11-07-2022 [facility] Start: 07-30-2022 End: 09-29-2022 Hepatitis C virus RNA [Units/volume] (viral load) in Serum or Plasma by PAULA with probe detection HCV QUANT RNA BY PCR Lab Routine Chronic hepatitis C with hepatic coma (HCC) Expected: 07/30/2022 (Approximate), Expires: 09/29/2022 [facility] Work Phone: Comment on above: Expected: 07/30/2022 (Approximate), Expires: 09/29/2022 Start: 07-08-2022 Influenza vaccination C [facility] Start: 06-09-2022 End: 08-09-2022 Thyrotropin [Units/volume] in Serum or Plasma TSH BLD Lab Routine Effects of radiation, sequela Expected: 06/09/2022, Expires: 08/09/2022 [facility] Work Phone: Comment on above: Expected: 06/09/2022 , Expires: 08/09/2022 Start: 06-09-2022 End: 08-09-2022 Thyroxine (T4) [Mass/volume] in Serum or Plasma T4/THYROXINE BLOOD Lab Routine Effects of radiation, sequela Expected: 06/09/2022, Expires: 08/09/2022 [facility] Work Phone: Comment on above: Expected: 06/09/2022 , Expires: 08/09/2022 Start: 2021 ADVANCE DIRECTIVE DISCUSSION ADVANCE DIRECTIVE DISCUSSION [facility] Start: 2021 PNEUMOVAX AGE 65 AND OVER WITH 5YR LOOKBACK (#1) PNEUMOVAX AGE 65 AND OVER WITH 5YR LOOKBACK (#1) [facility] Start: 07-08-2021 Influenza vaccination INFLUENZA (#1) [facility] Start: 2016 HEPATITIS B (1 of 3 - Risk 3-dose series) HEPATITIS B (1 of 3 - Risk 3-dose series) [facility] Start: 2016 Hepatitis B Vaccine (1 of 3 - Risk 3-dose series) Hepatitis B Vaccine (1 of 3 - Risk 3-dose series) [facility] Start: 2016 RSV Vaccine (1 - 1-d ose 60+ series) RSV Vaccine (1 - 1-dose 60+ series) [facility] Start: 2011 PROSTATE CANCER SCREENING DISCUSSION PROSTATE CANCER SCREENING DISCUSSION [facility] Start: 2011 Prostate specific antigen measurement Prostate Cancer Screening Discussion [facility] Start: 2006 SHINGRIX VACCINE (1 of 2) SHINGRIX VACCINE (1 of 2) [facility] Start: 2001 COLOGUARD (FIT-DNA) COLOGUARD (FIT-D NA) [facility] Start: 2001 Colonoscopy COLONOSCOPY [facility] Start: 2001 COLORECTAL CANCER SCREENING COLORECTAL CANCER SCREENING [facility] Start: [address] COLONOGRAPHY [facility] Start: 2001 FECAL OCCULT BLOOD FECAL OCCULT BLOO D [facility] Start: 2001 Screening for malign ant neoplasm of colon [facility] Start: 2001 SIGMOIDOSCOPY SIGMOIDOSCOPY [facility] Start: 1991 Lipid panel Lipid Screening [facility] Start: 1991 LIPID SCREEN LIPID SCREEN [facility] Start: 1975 HEPATITIS B (1 of 3 - Risk 3-dose series) HEPATITIS B (1 of 3 - Risk 3-dose series) [facility] Start: 1975 SHINGRIX VACCINE (1 of 2) SHINGRIX VACCINE (1 of 2) [facility] Start: 1975 Urine microalbumin profile [facility] Start: 1974 HIV SCREENING HIV SCREENING [facility] Start: 1962 Pneumococcal Vaccine : 65+ (1 of 2 - PCV) Pneumococcal Vaccine: 65+ (1 of 2 - PCV) [facility] Start: 1962 PNEUMOCOCCAL: 65+ (1 - PCV) PNEUMOCOCCAL: 65+ (1 - PCV) [facility] Start: 1961 COVID-19 VACCINE (#1) COVID-19 VACCI NE (#1) [facility] Start: 1961 COVID-19 VACCINE (1) COVID-19 VACCIN E (1) [facility] Start: 05-11-1957 COVID-19 VACCINE (#1) COVID-19 VACCI NE (#1) [facility] Start: 1956 ABDOMINAL AORTIC ANEURYSM SCREENING ABDOMINAL AORTIC ANEURYSM SCREENING [facility] Start: 1956 Abdominal aortic aneurysm screening Abdominal Aortic Aneurysm Screening [facility] End: 01-25-2023 HEPATIC FUNCTION PNL HEPATIC FUNCTION PNL Lab Routine Hepatitis C antibody positive in blood Every 3 weeks for 2 Occurrences starting 01/26/2022 until 01/25/2023 [facility] Work Phone: Comment on above: Every 3 weeks for 2 Occurrences starting 01/26/2022 until 01/25/2023 End: 01-25-2023 Hepatitis C virus RNA [Units/volume] (viral load) in Serum or Plasma by PAULA with probe detection HCV QUANT RNA BY PCR Lab Routine Hepatitis C antibody positive in blood Every 3 weeks for 2 Occurrences starting 01/26/2022 until 01/25/2023 [facility] Work Phone: Comment on above: Every 3 weeks for 2 Occurrences starting 01/26/2022 until 01/25/2023 Thyrotropin [Units/volume] in Serum or Plasma TSH BLD Lab Routine Effects of radiation, sequela 06/17/2022 10:58 AM EDT [facility] Work Phone: Thyroxine (T4) [Mass/volume] in Serum or Plasma T4/THYROXINE BLOOD Lab Routine Effects of radiation, sequela 06/17/2022 10:58 AM EDT [facility] Work Phone: [facility] Immunizations Immunization Date Immunization Notes Care Provider Fa cility NEGATED: Highlighted row has not occurred!02-19-2021 influenza virus vaccine, unspecified formulation Sushil Edgar Jr. [facility] Payers Date Payer Category Payer Unknown [id number] 2022 Private Health Insurance [id number] 2022 Medicare [id number] 2022 Medicare AETNA MEDICARE A ETNA MEDICARE ASSURE HMO D SNP [id number] 2022-Present [phone] [address] [place] [address] Medicare [id number] 2021 Medicaid MEDICAID [facility] MEDICAID [id number] 2021-Present [phone] [address] [place] [address] Medicaid [id number] 2021 Medicaid MEDICAID [facility] MEDICAID [id number] 2021-Present [phone] [address] [place] [address] Medicaid [id number] 2021 Medicaid [id number] 2018 Private Health Insurance [id number] 2018 Self-pay 1959 Unknown [id number] 1956 Unknown [id number] 1956 Unknown [id number] 93 1956 Unknown [id number] 1956 Unknown [id number] 1956 Unknown [id number] 93 1956 Unknown [id number] 27 1956 Unknown [id number] 27 Unknown [id number] 31 Social History Date Type Detail Facility Start: 10-13-2020 End: 06-17-2022 Tobacco smoking status WYIS Smokes tobacco daily [facility] End: 03-04-2018 History of tobacco use Cigarette Smoker [facility] Start: 10-13-2020 End: 12-19-2023 Cigarettes smoked current (pack per day) - Reported 1 [facility] Start: 10-13-2020 End: 06-17-2022 Tobacco use and exposure User of smokeless tobacco [facility] Start: 12-17-2021 End: 12-19-2023 Alcohol intake Current drinker of alcohol (finding) [facility] Start: 10-13-2020 History SDOH Alcohol Comment socially [facility] Start: 01-09-2018 End: 06-17-2022 Tobacco Comment started 1971 [facility] Start: 1955 Sex Assigned At Not on file C [facility] Start: 01-10-2022 End: 01-20-2022 Exposure to SARS-CoV-2 (event) Unable to assess [facility] Start: 04-06-2022 Tobacco smoking status Light t obacco smoker (finding) [facility] Start: 12-17-2021 End: 12-19-2023 Sex Assigned At Male [facility] Start: 06-07-2022 End: 06-17-2022 Exposure to SARS-CoV-2 (event) Not sure [facility] Adult Depression Screening Assessment 0 [facility] Clinical Notes 01-28-2022 to 12-19-2023 Telephone Encounter - Zeny Tom RN - 12/19/2023 12:17 PM ESTTelephone Encounter - Zeny Tom RN - 12/19/2023 12:17 PM ESTPatient InstructionsAbWyatt rogers MD - 12/19/2023 10:30 AM EST Note Date & Type Note Facility 12-19-2023 Note HNO ID: [id number] Author: WYATT GARZA MD Service: ? Author Type: Physician Type: Progress Notes Filed: 12/19/2023 21:13 Note Text: NAME: Adelfo Nolan CLINIC NO.: [id number] DATE OF SERVICE: December 19, 2023 (Mirian) Some elements in this clinic note that are critical to medical decision making have been carefully reviewed and included from a prior clinic note dated: December 16, 2022 (Mirian) Additional Clinicians involved in Adelfo Nolan's care: Willa Baez Noma Dakhil CC: Head and neck cancer follow-up. 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 However he has some prominent mediastinal LN's that will need to followed. Most likely they are reactive due to recent Upper Airway infection that he is recovering from. However, he remains at high risk due to ongoing tobacco use. Chronic cytopenias with low WBC's and Platelets - both stable since 2019. Etiology associated with underlying liver disease and +HepC. Hepatitis C has been irradicated. PLAN: CT Chest in 6 weeks RTC 1 week after to review If CT Chest clear then pursue routine annual visits CT Neck Chest in 12 months labs same day Labs in 1 year with scans include CBC, CMP RTC in 12 months with me to review HPI: CASE HISTORY: Reverse Chronological Order 12/16/2023 - CT Neck/Chest: Stable appearance of the soft tissues of the neck since 12/15/2022. No evidence of recurrent soft tissue mass or significant cervical lymphadenopathy by size criteria. 1. Stable appearance of bilateral pulmonary nodules. No new or enlarging nodules are seen. 2. Slight interval increase in size of a left paratracheal node. Other mediastinal nodes are similar to prior exam. 12/15/2022 - CT Neck/Chest: Post-treatment changes without discrete residual/recurrent neoplasm or evidence of pathologic lymphadenopathy in the neck. Incompletely evaluated upper mediastinal lymphadenopathy. 7 mm part solid right middle lobe nodule appears slightly more conspicuous in size from the prior study of 12/16/2021. Correlation with continued follow-up examinations is recommended. Additional subcentimeter pulmonary nodules bilaterally, unchanged. Several subcentimeter mediastinal lymph nodes are again identified, relatively stable in appearance. 12/16/2021 - CT Neck/Chest w/Cont: Stable anterior neck treatment changes. No evidence for any recurrent/residual or new abnormality. Incompletely evaluated superior mediastinal adenopathy. Chest: New subtle subcentimeter groundglass opacities in the right middle lobe most likely infectious/inflammatory in etiology. Consider follow-up to complete resolution. Other previously noted nodular opacities measuring up to 5 mm, stable since 05/21/20. Diffuse hepatic fatty infiltration. Mild emphysematous changes of the lungs. 12/16/2020 - CT Neck / Chest: Stable posttreatment changes in the neck without evidence of recurrence. No cervical lymphadenopathy. No interval change since 05/11/2020. Subcentimeter nodular opacities measuring up to 5 mm, stable. Diffuse hepatic fatty infiltration. Mild emphysematous changes of the lungs. 05/21/2020 - CT N/Chest: Bilateral 3 mm or less pulmonary nodules are felt to be stable from the prior PET/CT examination of 05/23/2019. No substantial intrathoracic adenopathy is identified. Interval resolution the previously identified right tongue/oral cavity mass. no pathologic enhancement on this examination. no evidence of new mass or adenopathy in the neck. December 2017 - P16 positive head and neck cancer, in remission post chemotherapy/radiation Updated Visit, December 19, 2023: Thom returns today, he has been doing well. We reviewed his CT scans, lymph nodes increased, likely due to recent illness. Chest CT to recheck. HepC has cleared, no need for more GI following. He has one son, 26 years old. Updated Visit, December 16, 2022: HCV resolved with treatment. Doing well. Continues to smoke but is going to try to quit. CT shows no evidence of recurrence CT chest with sligt increase in 7 mm RML nodule compared to 1 year ago. Will re-eval in 1 year. Updated Visit, December 17, 2021: Started reviewing his case for cytopenias and noted his + HepC RNA. Looks like he never went back and ended up not getting primary treatment for it. Labs are stable but I'll get him back in with GI. TSH 2.4 Was sick for the entire month of November 2021 with + COVID-19 and finished antibiotics for 2 -3 weeks. This likely explains his CT findings. They are summarized below. Updated Visit, December 18, 2020: Thom is 65 years old and returns today for history of P 16+ head and neck cancer. He remains in remission status post chemotherapy plus radiation followin (more content not included)... [facility] 12-19-2023 Miscellaneous Notes Pt informed of Frankie's message and denies any questions, needs or concerns at this time.(Pt had appt today with Frankie and discussed) Appointments verified. Zeny Tom RN ----- Message from Wyatt Garza MD sent at 12/17/2023 8:59 AM EST ----- Scans are stable - I will discuss at his appointment. documented in this encounter [facility] 12-19-2023 Instructions Svetlana Rdz - 12/19/2023 10:[address] Chest in 6 weeks RTC 1 week after to review If CT Chest clear then pursue routine annual visits documented in this encounter [facility] 12-19-2023 History of Presen t illness Narrative Images from the original note were not included. NAME: Adelfo Nolan CLINIC NO.: [id number] DATE OF SERVICE: December 19, 2023 ([facility]) Some elements in this clinic note that are critical to medical decision making have been carefully reviewed and included from a prior clinic note dated: December 16, 2022 ([facility]) Additional Clinicians involved in Adelfo Nolan's care: Willa Baez Noma Dakhil CC: Head and neck cancer follow-up. 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 However he has some prominent mediastinal LN's that will need to followed. Most likely they are reactive due to recent Upper Airway infection that he is recovering from. However, he remains at high risk due to ongoing tobacco use. Chronic cytopenias with low WBC's and Platelets - both stable since 2019. Etiology associated with underlying liver disease and +HepC. Hepatitis C has been irradicated. PLAN: CT Chest in 6 weeks RTC 1 week after to review If CT Chest clear then pursue routine annual visits CT Neck Chest in 12 months labs same day Labs in 1 year with scans include CBC, CMP RTC in 12 months with me to review HPI: CASE HISTORY: Reverse Chronological Order 12/16/2023 - CT Neck/Chest: Stable appearance of the soft tissues of the neck since 12/15/2022. No evidence of recurrent soft tissue mass or significant cervical lymphadenopathy by size criteria. 1. Stable appearance of bilateral pulmonary nodules. No new or enlarging nodules are seen. 2. Slight interval increase in size of a left paratracheal node. Other mediastinal nodes are similar to prior exam. 12/15/2022 - CT Neck/Chest: Post-treatment changes without discrete residual/recurrent neoplasm or evidence of pathologic lymphadenopathy in the neck. Incompletely evaluated upper mediastinal lymphadenopathy. 7 mm part solid right middle lobe nodule appears slightly more conspicuous in size from the prior study of 12/16/2021. Correlation with continued follow-up examinations is recommended. Additional subcentimeter pulmonary nodules bilaterally, unchanged. Several subcentimeter mediastinal lymph nodes are again identified, relatively stable in appearance. 12/16/2021 - CT Neck/Chest w/Cont: Stable anterior neck treatment changes. No evidence for any recurrent/residual or new abnormality. Incompletely evaluated superior mediastinal adenopathy. Chest: New subtle subcentimeter groundglass opacities in the right middle lobe most likely infectious/inflammatory in etiology. Consider follow-up to complete resolution. Other previously noted nodular opacities measuring up to 5 mm, stable since 05/21/20. Diffuse hepatic fatty infiltration. Mild emphysematous changes of the lungs. 12/16/2020 - CT Neck / Chest: Stable posttreatment changes in the neck without evidence of recurrence. No cervical lymphadenopathy. No interval change since 05/11/2020. Subcentimeter nodular opacities measuring up to 5 mm, stable. Diffuse hepatic fatty infiltration. Mild emphysematous changes of the lungs. 05/21/2020 - CT N/Chest: Bilateral 3 mm or less pulmonary nodules are felt to be stable from the prior PET/CT examination of 05/23/2019. No substantial intrathoracic adenopathy is identified. Interval resolution the previously identified right tongue/oral cavity mass. no pathologic enhancement on this examination. no evidence of new mass or adenopathy in the neck. December 2017 - P16 positive head and neck cancer, in remission post chemotherapy/radiation Updated Visit, December 19, 2023: Thom returns today, he has been doing well. We reviewed his CT scans, lymph nodes increased, likely due to recent illness. Chest CT to recheck. HepC has cleared, no need for more GI following. He has one son, 26 years old. Updated Visit, December 16, 2022: HCV resolved with treatment. Doing well. Continues to smoke but is going to try to quit. CT shows no evidence of recurrence CT chest with sligt increase in 7 mm RML nodule compared to 1 year ago. Will re-eval in 1 year. Updated Visit, December 17, 2021: Started reviewing his case for cytopenias and noted his + HepC RNA. Looks like he never went back and ended up not getting primary treatment for it. Labs are stable but I'll get him back in with GI. TSH 2.4 Was sick for the entire month of November 2021 with + COVID-19 and finished antibiotics for 2 -3 weeks. This likely explains his CT findings. They are summarized below. Updated Visit, December 18, 2020: Thom is 65 years old and returns today for history of P 16+ head and neck cancer. He remains in remission status post chemotherapy plus radiation following his diagnosis in December 2017. CT scan of the neck and chest was obtained May 21, 2020 showing no evidence of recurrent disease. He has small pulmonary nodules that are stable. Review of systems is negative by full review of organ systems. 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 Updated Visit, June 19, 2020: Thom is 64 years old and returns today for history of P 16+ head and neck cancer. He remains in remission status post chemotherapy plus radiation following his diagnosis in December 2017. CT scan of the neck and chest was obtained May 21, 2020 showing no evidence of recurrent disease. He has small pulmonary nodules that are stable. Review of systems is negative by full review of organ systems. Updated Visit, February 20, 2020: Adelfo Nolan is a 63 year old male who presents in follow up with a hx of P16 positive head and neck cancer, in remission post chemotherapy/radiation therapy. He has no new complaints. He is doing overall well. He was originally diagnosed in 12/2017 and finished chemotherapy with radiation. Initially presented with 4 month history of sore throat. REVIEW OF SYSTEMS Per HPI and otherwise negative by full review of organ systems. ECOG PERFORMANCE STATUS: 0 PHYSICAL EXAMINATION: Vitals: BP 145/78 Pulse 71 Temp (Src) 97.6 (Temporal) Resp 16 Ht 5' 5 (1.65m) Wt 151 lb 3.8 oz (68.6kg) SpO2 98% BMI 25.17 kg/(m^2). Body surface area is 1.77 meters squared. Exam limited to gross visualization where appropriate. Gen.: This is an age-appropriate patient in no acute distress. Head: Appears atraumatic with no visible lesions. Eyes: Pupils equally round and reactive to light, extraocular muscles are intact. Neck: Supple. Mouth: Mucous membranes appeared to be moist. Respiratory: Appears to be respiring comfortably. Neurologic: Nonfocal to gross visualization. Alert and oriented 3. Psychiatric: No evidence of inappropriate anxiety or depression. Skin: Visible areas of skin without rash, lesions, wounds or petechiae. ALLERGIES: ALLERGIES No Known Allergies MEDICATIONS: tamsulosin (FLOMAX) 0.4 mg Take 1 capsule by mouth every afternoon. iv contrast (will be provided with radiology test) CT Chest W -Inject, intravenously, once for 1 dose.No IV access, insert saline lock prior to the beginning of sedation, infusion, injection of imaging exam. Discontinue saline lock post exam. If Pt. has a central line or IVAD, may access for administration according to line specific nursing protocol. Once exam is complete flush line and de-access according to line specific nursing protocol in the CT contrast administration guidelines link. LABORATORY VALUES: WBC (k/uL) Date Value 12/16/2023 4.25 RBC (m/uL) Date Value 12/16/2023 4.07 (L) Hemoglobin (g/dL) Date Value 12/16/2023 12.9 (L) Hematocrit (%) Date Value 12/16/2023 38.0 (L) MCV (fL) Date Value 12/16/2023 93.4 MCH (pg) Date Value 12/16/2023 31.7 MCHC (g/dL) Date Value 12/16/2023 33.9 RDW-CV (%) Date Value 12/16/2023 13.1 Platelet Count (k/uL) Date Value 12/16/2023 197 MPV (fL) Date Value 12/16/2023 9.6 Glucose (mg/dL) Date Value 12/16/2023 99 BUN (mg/dL) Date Value 12/16/2023 12 Creatinine (mg/dL) Date Value 12/16/2023 0.84 Sodium (mmol/L) Date Value 12/16/2023 135 (L) Potassium (mmol/L) Date Value 12/16/2023 4.5 Chloride (mmol/L) Date Value 12/16/2023 99 CO2 (mmol/L) Date Value 12/16/2023 25 Protein, Total (g/dL) Date Value 12/16/2023 7.2 Albumin (g/dL) Date Value 12/16/2023 4.4 Calcium, Total (mg/dL) Date Value 12/16/2023 10.2 Alkaline Phosphatase (U/L) Date Value 12/16/2023 76 Bilirubin, Total (mg/dL) Date Value 12/16/2023 0.8 AST (U/L) Date Value 12/16/2023 21 ALT (U/L) Date Value 12/16/2023 9 (L) DIAGNOSIS: (R59.0) Localized enlarged lymph nodes (primary encounter diagnosis) Plan: CT CHEST W IVCON, iv contrast (will be provided with radiology test), CREATININE BLD (E43) Severe protein-calorie malnutrition (HCC) (C76.0) Malignant neoplasm of head, face and neck (HCC) (Z85.89) History of head and neck cancer Plan: CT CHEST W IVCON, iv contrast (will be provided with radiology test), CREATININE BLD PAST MEDICAL HISTORY Diagnosis Date 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 Hoarse voice quality 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) PAST SURGICAL HISTORY Procedure Laterality Date ESOPHAGOSCOPY LARYNGOSCOPY REMV CATARACT EXTRACAP,INSERT LENS Bilateral Social History Tobacco Use Smoking status: Every Day Packs/day: 1.00 Years: 45.00 Additional pack years: 0.00 Total pack years: 45.00 Types: Cigarettes Last attempt to quit: 03/04/2018 Years since quittin.7 Smokeless tobacco: Current Tobacco comments: started 1971 Vaping Use Vaping Use: Never used Substance Use Topics Alcohol use: Yes Comment: socially Drug use: Never Comment: quit 2007 FAMILY HISTORY Problem Relation Age of Onset Diabetes Mother Stroke Mother Diabetes Father Stroke Daughter Colon Cancer No Family History I spent a total of 30 minutes on the date of service which included preparing to see the patient, [id number] patient care, completing clinical documentation, performing a medically appropriate examination, counseling and educating the patient/family/caregiver, ordering medications, tests, or procedures, independently interpreting results (not separately reported), communicating results to the patient/family/caregiver, and care coordination (not separately reported). Wyatt Garza MD, CPE Hematology and Oncology Services Provided at: [facility], [place], [place] Scribe Attestation: This note was scribed by Svetlana Rdz on December 19, 2023 under the direction and supervision of Dr. Wyatt Garza. I attest that all of the information documented is correct to the best of my knowledge. Provider Attestation: I, Wyatt Garza MD, attest that all information documented by the above scribe is correct, and was supervised by me and under my direction. CC: Elba Crouch MD [id number] [facility] [address] Nat Quintero MD documented in this encounter [facility] 12-16-2023 Note HNO ID: [id number] Author: ROXANN MCKEON RN Service: ? Author Type: Registered Nurse Type: Progress Notes Filed: 12/16/2023 10:05 Note Text: Radiology Service Progress Note DATE OF SERVICE: December 16, 2023 TIME: 10:05 AM PATIENT WEIGHT: 153LBS PATIENT IDENTITY VERIFICATION COMPLETED USING TWO (2) STANDARD IDENTIFIERS: Name and Date of confirmed by patient verbally. FALL SCREENING: Has the patient had 2 falls in the last year or 1 fall with injury or currently using an Ambulatory Assistive Device (Walker, Cane, Wheelchair, Crutches, etc.)? No PATIENT GENDER DATA: Male ALLERGIES: Reviewed and unchanged CONTRAST ALLERGY: No EXAM: CT -CONTRAST INDUCED NEPHROPATHY RISK FACTORS: Patient age > 60 years CREATININE: Creatinine Date Value Ref Range Status 12/16/2023 0.84 0.73 - 1.22 mg/dL Final 12/15/2022 0.73 0.73 - 1.22 mg/dL Final 12/16/2021 0.74 0.73 - 1.22 mg/dL Final Estimated Glomerular Filtration Rate Date Value Ref Range Status 12/16/2023 96 >=60 mL/min/1.73m? Final Comment: Estimated Glomerular Filtration Rate (eGFR) is calculated using the 2020 CKD-EPI creatinine equation. This equation utilizes serum creatinine, sex, and age as parameters. The creatinine assay has traceable calibration to isotope dilution-mass spectrometry. Refer to KDIGO guidelines for clinical interpretation. In patients with unstable renal function, e.g. those with acute kidney injury, the eGFR may not accurately reflect actual GFR. eGFR- Date Value Ref Range Status 12/16/2021 >60 Final P.O.C.T. RESULTS: POC done: Yes, See Lab Tab December 16, 2023 TREATMENT: N/A IV SITE: Ambulatory: A peripheral IV was started in the Left antecubital site with a Angio cath: 20 gauge. IV SITE APPEARANCE: Clean,Dry and Intact SIGNATURE: Roxann Mckeon RN PATIENT NAME: Adelfo Nolan DATE: December 16, 2023 TIME: 10:05 AM [facility] 12-16-2023 Note HNO ID: [id number] Author: SONJA MELGAR, RT(R) Service: ? Author Type: Technologist Type: Progress Notes Filed: 12/16/2023 10:54 Note Text: Radiology Service Progress Note PATIENT NAME: Adelfo Nolan DATE OF SERVICE: December 16, 2023 TIME: 10:54 AM PATIENT IDENTITY VERIFICATION COMPLETED USING TWO (2) IDENTIFIERS: Name and Date of confirmed by patient verbally. FALL SCREENING: Has the patient had 2 falls in the last year or 1 fall with injury or currently using an Ambulatory Assistive Device (Walker, Cane, Wheelchair, Crutches, etc.)? No PATIENT GENDER DATA: Male PATIENT RELEVANT IMPLANT DATA REVIEWED: Not Applicable RADIOLOGY DEPARTMENT: CT; Exam(s) Completed: Chest and Neck PERIPHERAL IV DATA: Site assessment: Clean,Dry and Intact, Site disposition Discontinued SIGNED BY: Sonja Melgar RT(R) December 16, 2023 10:54 AM [facility] 12-28-2022 Note PROCEDURE: XR ANKLE RT MIN 3 VIEWS HISTORY: Pain of right ankle joint COMPARISON: None. FINDINGS: BONES:Nondisplaced spiral fracture of distal right fibula just above level of ankle joint. Normal, uniform appearance and spacing of the tibiotalar joint. SOFT TISSUES:Soft tissue swelling surrounding the ankle. EFFUSION:None visible. OTHER: Negative. IMPRESSION: 1. Acute, nondisplaced distal right fibula fracture and prominent soft tissue swelling. Findings being called to the office of Dr. Crouch. Electronically authenticated by: EDMOND BROOKS Date: 2022-12-28 07:42 [facility] 12-16-2022 Instructions Wyatt Garza MD - 12/16/2022 11:[address] Neck Chest in 12 months labs same day Labs in 1 year with scans include CBC, CMP RTC in 12 months with me to review Patient to continue follow up with Dr. Leon RAWLS documented in this encounter [facility] 12-16-2022 History of Presen t illness Narrative Images from the original note were not included. NAME: Adelfo Nolan CLINIC NO.: [id number] DATE OF SERVICE: December 17, 2021 Some elements in this clinic note that are critical to medical decision making have been carefully reviewed and included from a prior clinic note dated: December 18, 2020 Additional Clinicians involved in Adelfo Nolan's care: Willa Baez Noma Dakhil CC: Head and neck cancer follow-up. 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 Chronic cytopenias with low WBC's and Platelets - both stable since 2019. Etiology associated with underlying liver disease and +HepC New pulmonary infiltrates most likely related to COVID and symptoms are now cleared up. Will reassess in future but no need for interval scans unless symptoms change. PLAN: CT Neck Chest in 12 months labs same day Labs in 1 year with scans include CBC, CMP RTC in 12 months with me to review Patient to continue follow up with Dr. Leon RAWLS HPI: Updated Visit, December 16, 2022: HCV resolved with treatment. Doing well. Continues to smoke but is going to try to quit. CT shows no evidence of recurrence CT chest with sligt increase in 7 mm RML nodule compared to 1 year ago. Will re-eval in 1 year. Updated Visit, December 17, 2021: Started reviewing his case for cytopenias and noted his + HepC RNA. Looks like he never went back and ended up not getting primary treatment for it. Labs are stable but I'll get him back in with GI. TSH 2.4 Was sick for the entire month of November 2021 with + COVID-19 and finished antibiotics for 2 -3 weeks. This likely explains his CT findings. They are summarized below. Updated Visit, December 18, 2020: Thom is 65 years old and returns today for history of P 16+ head and neck cancer. He remains in remission status post chemotherapy plus radiation following his diagnosis in December 2017. CT scan of the neck and chest was obtained May 21, 2020 showing no evidence of recurrent disease. He has small pulmonary nodules that are stable. Review of systems is negative by full review of organ systems. 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 Updated Visit, June 19, 2020: Thom is 64 years old and returns today for history of P 16+ head and neck cancer. He remains in remission status post chemotherapy plus radiation following his diagnosis in December 2017. CT scan of the neck and chest was obtained May 21, 2020 showing no evidence of recurrent disease. He has small pulmonary nodules that are stable. Review of systems is negative by full review of organ systems. Updated Visit, February 20, 2020: Adelfo Nolan is a 63 year old male who presents in follow up with a hx of P16 positive head and neck cancer, in remission post chemotherapy/radiation therapy. He has no new complaints. He is doing overall well. He was originally diagnosed in 12/2017 and finished chemotherapy with radiation. Initially presented with 4 month history of sore throat. RADIOGRAPHIC DATA: 12/16/2021 CT Neck/Chest w/Cont: Neck: 1. Stable anterior neck treatment changes. 2. No evidence for any recurrent/residual or new abnormality. 3. Incompletely evaluated superior mediastinal adenopathy. Chest: 1. New subtle subcentimeter groundglass opacities in the right middle lobe most likely infectious/inflammatory in etiology. Consider follow-up to complete resolution. 2. Other previously noted nodular opacities measuring up to 5 mm, stable since 05/21/20. 3. Diffuse hepatic fatty infiltration. 4. Mild emphysematous changes of the lungs. 12/16/2020 CT Neck / Chest: 1. Stable posttreatment changes in the neck without evidence of recurrence. No cervical lymphadenopathy. 1. No interval change since 05/11/2020. 2. Subcentimeter nodular opacities measuring up to 5 mm, stable. 3. Diffuse hepatic fatty infiltration. 4. Mild emphysematous changes of the lungs. 05/21/2020 CT N/Chest: 1. Bilateral 3 mm or less pulmonary nodules are felt to be stable from the prior PET/CT examination of 05/23/2019. 2. No substantial intrathoracic adenopathy is identified. INTERVAL RESOLUTION THE PREVIOUSLY IDENTIFIED RIGHT TONGUE/ORAL CAVITY MASS. NO PATHOLOGIC ENHANCEMENT ON THIS EXAMINATION. NO EVIDENCE OF NEW MASS OR ADENOPATHY IN THE NECK. REVIEW OF SYSTEMS Per HPI and otherwise negative by full review of organ systems. ECOG PERFORMANCE STATUS: 0 PHYSICAL EXAMINATION: Vitals: BP 139/100 Pulse 94 Temp (Src) 97.6 (Temporal) Resp 16 Ht 5' 5 (1.65m) Wt 153 lb 6.4 oz (69.6kg) SpO2 95% BMI 25.53 kg/(m^2). Body surface area is 1.79 meters squared. Exam limited to gross visualization where appropriate due to COVID-19. Gen.: This is an age-appropriate patient in no acute distress. Head: Appears atraumatic with no visible lesions. Eyes: Pupils equally round and reactive to light, extraocular muscles are intact. Neck: Supple. Mouth: Mucous membranes appeared to be moist. Respiratory: Appears to be respiring comfortably. Neurologic: Nonfocal to gross visualization. Alert and oriented 3. Psychiatric: No evidence of inappropriate anxiety or depression. Skin: Visible areas of skin without rash, lesions, wounds or petechiae. ALLERGIES: ALLERGIES No Known Allergies MEDICATIONS: No prescriptions on file. LABORATORY VALUES: WBC (k/uL) Date Value 12/15/2022 4.45 RBC (m/uL) Date Value 12/15/2022 3.70 (L) Hemoglobin (g/dL) Date Value 12/15/2022 12.5 (L) Hematocrit (%) Date Value 12/15/2022 36.7 (L) MCV (fL) Date Value 12/15/2022 99.2 MCH (pg) Date Value 12/15/2022 33.8 MCHC (g/dL) Date Value 12/15/2022 34.1 RDW-CV (%) Date Value 12/15/2022 13.4 Platelet Count (k/uL) Date Value 12/15/2022 174 MPV (fL) Date Value 12/15/2022 9.2 Glucose (mg/dL) Date Value 12/15/2022 106 (H) BUN (mg/dL) Date Value 12/15/2022 11 Creatinine (mg/dL) Date Value 12/15/2022 0.73 Sodium (mmol/L) Date Value 12/15/2022 137 Potassium (mmol/L) Date Value 12/15/2022 4.7 Chloride (mmol/L) Date Value 12/15/2022 97 CO2 (mmol/L) Date Value 12/15/2022 28 Protein, Total (g/dL) Date Value 12/15/2022 7.8 Albumin (g/dL) Date Value 12/15/2022 5.0 (H) Calcium, Total (mg/dL) Date Value 12/15/2022 10.5 (H) Alkaline Phosphatase (U/L) Date Value 12/15/2022 72 Bilirubin, Total (mg/dL) Date Value 12/15/2022 0.9 AST (U/L) Date Value 12/15/2022 30 ALT (U/L) Date Value 12/15/2022 16 DIAGNOSIS: (C76.0) Malignant neoplasm of head, face and neck (HCC) (primary encounter diagnosis) (R91.8) Lung nodules Plan: CT CHEST W IVCON, iv contrast (will be provided with radiology test), CT NECK SOFT TISSUE W IVCON, iv contrast (will be provided with radiology test), CBC + DIFF, COMP METABOLIC PANEL (E07.9) Disorder of thyroid PAST MEDICAL HISTORY Diagnosis Date 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 Hoarse voice quality 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) PAST SURGICAL HISTORY Procedure Laterality Date ESOPHAGOSCOPY LARYNGOSCOPY Social History Tobacco Use Smoking status: Every Day Packs/day: 1.00 Years: 45.00 Pack years: 45.00 Types: Cigarettes Last attempt to quit: 03/04/2018 Years since quittin.7 Smokeless tobacco: Current Tobacco comments: started 1972 Vaping Use Vaping Use: Never used Substance Use Topics Alcohol use: Yes Comment: socially Drug use: Never Comment: quit 2007 FAMILY HISTORY Problem Relation Age of Onset Diabetes Mother Stroke Mother Diabetes Father Stroke Daughter Colon Cancer No Family History I spent a total of 30 minutes on the date of the service which included preparing to see the patient, obsl-hk-nect patient care, completing clinical documentation, performing a medically appropriate examination, counseling and educating the patient/family/caregiver, ordering medications, tests, or procedures, and independently interpreting results (not separately reported). Wyatt Garza MD, CPE [place], [place] CC: Wyatt Garza MD [address] [place] [address] [place] [address] Elba Crouch MD [address] [facility] [address] Nat Quintero MD documented in this encounter [facility] 07-16-2022 History of Presen t illness Narrative Medication(s): Epclusa Total duration of treatment: 12 weeks Estimated Start Date: 01/23 Estimated Completion Date: 04/17 Estimated SVR 07/10/22 Due for SVR12 lab at this time. 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 RADIATION SUMMARY: DATES OF TREATMENT: 01/23/18-03/10/18 AREA TREATED: Oropharynx and Bilateral Neck DELIVERED DOSE: Area: Oropharynx Bilateral Neck TOTAL: 7,000 cGy in 35 fx ELAPSED TIME: 46 days. INTERVAL HISTORY: Skin condition continues to improve per patient, nearly resolved from her upper extremities. Still with persistent issues bilateral neck but improved. Denies fever. Denies significant neck pain. Appetite good no significant dysphagia. 06/18/21:Doing well. Rash/skin condition involving upper extremities has returned. He is seeing dermatology. Denies any other new problems or concerns. LABORATORY: Pending RADIOLOGY: CT neck 12/16/2021: IMPRESSION: 1. Stable anterior neck treatment changes. 2. No evidence for any recurrent/residual or new abnormality. 3. Incompletely evaluated superior mediastinal adenopathy. CT chest 12/16/2021:IMPRESSION: 1. New subtle subcentimeter groundglass opacities in the right middle lobe most likely infectious/inflammatory in etiology. Consider follow-up to complete resolution. 2. Other previously noted nodular opacities measuring up to 5 mm, stable since 05/21/20. 3. Diffuse hepatic fatty infiltration. 4. Mild emphysematous changes of the lungs. ALLERGIES No Known Allergies MEDICATIONS: No prescriptions on file. REVIEW OF SYSTEMS: GENERAL: Negative for weight loss, fevers, chills, or night sweats. HEENT: Negative for sudden vision or hearing changes. NECK: Negative for masses in the neck. RESPIRATORY: Negative for cough or shortness of breath. CARDIAC: Negative for chest pain, palpitations, murmurs, or syncopal episodes. GI: Negative for nausea, vomiting, diarrhea, constipation, blood per rectum, or melena. MUSCULOSKELETAL: Negative for limitations in movement, pain, or swelling. NEURO: Negative for dizziness, headache, weakness or numbness. HEMATOLOGIC: Negative for bleeding or easy bruising. SKIN: See HPI PHYSICAL EXAM: VS: BP 146/81 Pulse 89 Temp 36.7 C (98.1 F) Resp 18 Wt 66.2 kg (146 lb) SpO2 100% BMI 23.58 kg/m KPS: 90 General Appearance: Alert and oriented. No acute distress. HEENT: NCAT. Sclera anicteric. PERRL. EOMI. Oral cavity and oropharynx: lips and gums normal, oral and pharyngeal mucosa mildly dry. No lesions or suspicious areas. No persistent mucositis. Tongue mobile , tonsils without masses, indirect mirror unremarkable Neck: Normal ROM. No palpable cervical or supraclavicular adenopathy. Mild stable fibrosis right greater than left neck. No bruits detectable Trismus: none Neck mobility: Good Tongue mobility: Good Dentition: NA Chest: No respiratory distress. Lungs clear to auscultation bilaterally. Normal ROM in extremities. No bone or spine tenderness. Neuro: Strength intact and symmetric. Sensation intact. CN II-XII intact. Gait normal. No focal deficits. Skin: Scattered areas of hyperpigmentation mixed with hypopigmentation neck area scaly lesions dorsal surface of hands bilaterally. Lymphatics: No palpable lymphadenopathy. 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 1. Oropharyngeal squamous cell carcinoma. Doing well. No clinical or radiographic evidence of recurrence. Continue surveillance including no clinical or radiographic evidence of recurrence. Plan to see patient back in 6 months with thyroid labs. active follow-up with . 2. Chronic hepatitis C, has follow-up with gastroenterology. 3. 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 Skin condition has continued to improved. 4. Carotid atherosclerotic changes, incidental finding CT. ultrasound showing mild to moderate plaque, mild narrowing no significant stenosis (07/28) 5. Subcentimeter lung nodules. Overall stable on imaging. Likely benign. Continue surveillance. Signed by: Moiz Atkins MD cc: Elba Crouch MD [address] [place] [address] Dr. Pulliam documented in this encounter [facility] 06-09-2022 Miscellaneous Notes Please sign pended labs for upcoming visit. Tory Self RN documented in this encounter [facility] 04-15-2022 History of Presen t illness Narrative [facility] Visit Assessment - Hepatology: Ivent complete: No Is pre-assessment?: No Is initial or refill assessment?: No Is post-assessment?: Yes Vaccination Assessment: Date of influenza vaccination reminder: 07/08/2021 Date of most recent vaccination assessment: 01/20/2022 End of Treatment Assessment: Treatment end date: 04/22/2022 Estimated date SVR12 should be drawn: 07/15/2022 HCV RNA viral load ordered?: Yes The patient was reminded to follow-up with his/her provider regarding future tests. Ruddy Gaffney CPhT [facility] documented in this encounter [facility] 04-06-2022 Hospital Discharg e instructions Patient Education 04/06/2022 11:59:09 Hematuria, Adult Hematuria, Adult Hematuria is blood in the urine. Blood may be visible in the urine, or it may be identified with a test. This condition can be caused by infections of the bladder, urethra, kidney, or prostate. Other possible causes include: Kidney stones. Cancer of the urinary tract. Too much calcium in the urine. Conditions that are passed from parent to child (inherited conditions). Exercise that requires a lot of energy. Infections can usually be treated with medicine, and a kidney stone usually will pass through your urine. If neither of these is the cause of your hematuria, more tests may be needed to identify the cause of your symptoms. It is very important to tell your health care provider about any blood in your urine, even if it is painless or the blood stops without treatment. Blood in the urine, when it happens and then stops and then happens again, can be a symptom of a very serious condition, including cancer. There is no pain in the initial stages of many urinary cancers. Follow these instructions at home: Medicines Take zskt-ggh-mpainif and prescription medicines only as told by your health care provider. If you were prescribed an antibiotic medicine, take it as told by your health care provider. Do not stop taking the antibiotic even if you start to feel better. Eating and drinking Drink enough fluid to keep your urine clear or pale yellow. It is recommended that you drink 3 4 quarts (2.8 3.8 L) a day. If you have been diagnosed with an infection, it is recommended that you drink cranberry juice in addition to large amounts of water. Avoid caffeine, tea, and carbonated beverages. These tend to irritate the bladder. Avoid alcohol because it may irritate the prostate (men). General instructions If you have been diagnosed with a kidney stone, follow your health care provider's instructions about straining your urine to catch the stone. Empty your bladder often. Avoid holding urine for long periods of time. If you are female: ?After a bowel movement, wipe from front to back and use each piece of toilet paper only once. ?Empty your bladder before and after sex. Pay attention to any changes in your symptoms. Tell your health care provider about any changes or any new symptoms. It is your responsibility to get your test results. Ask your health care provider, or the department performing the test, when your results will be ready. Keep all follow-up visits as told by your health care provider. This is important. Contact a health care provider if: You develop back pain. You have a fever. You have nausea or vomiting. Your symptoms do not improve after 3 days. Your symptoms get worse. Get help right away if: You develop severe vomiting and are unable take medicine without vomiting. You develop severe pain in your back or abdomen even though you are taking medicine. You pass a large amount of blood in your urine. You pass blood clots in your urine. You feel very weak or like you might faint. You faint. Summary Hematuria is blood in the urine. It has many possible causes. It is very important that you tell your health care provider about any blood in your urine, even if it is painless or the blood stops without treatment. Take pjgp-qkn-ziyosyp and prescription medicines only as told by your health care provider. Drink enough fluid to keep your urine clear or pale yellow. This information is not intended to replace advice given to you by your health care provider. Make sure you discuss any questions you have with your health care provider. Document Released: 10/24/2006 Document Revised: 03/19/2020 Document Reviewed: 11/26/2017 [employer] Patient Education 2019 [employer] Follow Up Care 08/27/2021 11:36:33 With:Herve Flores MD, Sushil De Leon [facility] Address: [facility] [address] [place] [address]- When:04/06/2023 Comments:w/psa [facility] 03-22-2022 Miscellaneous Notes Pt aware of results and to get blood work repeated in 3 months. ----- Message from Nat Quintero MD sent at 03/19/2022 3:58 PM EDT ----- Liver enzymes are stable Didn't improve that much The HCV RNA Is negative consistent with viral response Repeat LFTs and HCV RNA in 3 months documented in this encounter [facility] 03-11-2022 History of Presen t illness Narrative [facility] Refill Assessment Medication(s): Epclusa (Fill 3 of 3) Total duration of treatment: 12 weeks Estimated Start Date: 01/23 Estimated Completion Date: 04/17 Estimated SVR 07/10/22 Therapy continues to be appropriate for disease, patient response, and medical condition. Verification of therapeutic benefit and effectiveness with current therapy. Adverse events, barriers in adherence, and side effects assessed and addressed. Will proceed with refill with no changes. [facility] Visit Assessment - Hepatology: Is pre-assessment?: No Is initial or refill assessment?: Yes Assessment to use: Refill Non-Clinical Assessment: Patient confirmed: Yes Med/dose confirmed: Yes Supplies needed: N/A Missed doses: No Estimated days supply on hand: 10 Next cycle/dose due: 03/12/2022 Copay amount: 0 Payment confirmed: Yes Address confirmed: Yes Delivery method: FedEx Delivery address: [address] [place] [id number] Delivery date: 03/15/2022 Patient has questions: No Additional questions, comments, concerns: Patient states he has 10-12 days left on hand. Advised I would follow up at estimated end of treatment to see if he has completed therapy or has any more left on hand. Refill Assessment: Concurrent med therapy screening: Yes Adverse reactions and mitigation: Yes Hepatitis C RNA level at 12 weeks after end of therapy with additional testing as clinically indicated: Yes Hepatic function panel, eGFR: Yes CBC after 2 weeks if on ribavirin: N/A Ruddy Gaffney CPhT Manager Economic, Inflammatory & Neurology [facility] documented in this encounter [facility] 02-11-2022 History of Presen t illness Narrative [facility] Refill Assessment Medication(s): Epclusa (2 of 3) Total duration of treatment: 12 weeks Estimated Start Date: 01/23 Estimated Completion Date: 04/17 Estimated SVR 07/10/22 Labs have been ordered but not yet collected. Goal remains to complete full treatment. Unable to assess compliance although patient does not report missed doses. Bhavya Cohen RPh Clinical Pharmacist, Hepatology and Biologics [facility] P: ; F: Pool: P CC SPEC GROUP 2 ([id number]) Therapy continues to be appropriate for disease, patient response, and medical condition. Verification of therapeutic benefit and effectiveness with current therapy. Adverse events, barriers in adherence, and side effects assessed and addressed. Will proceed with refill with no changes. [facility] Visit Assessment - Hepatology: Is pre-assessment?: No Is initial or refill assessment?: Yes Assessment to use: Refill Non-Clinical Assessment: Patient confirmed: Yes Med/dose confirmed: Yes Supplies needed: N/A Missed doses: No Estimated days supply on hand: 8 Next cycle/dose due: 02/12/2022 Copay amount: 0 Payment confirmed: Yes Address confirmed: Yes Delivery method: i[employer] Delivery address: [address] [place] [address] Delivery date: 02/15/2022 Patient has questions: No Refill Assessment: Concurrent med therapy screening: Yes Adverse reactions and mitigation: Yes Hepatitis C RNA level at 12 weeks after end of therapy with additional testing as clinically indicated: Yes Hepatic function panel, eGFR: Yes CBC after 2 weeks if on ribavirin: N/A Ruddy Gaffney documented in this encounter [facility] 01-28-2022 Miscellaneous Notes Spoke with pt. Advised to get blood work in 3 weeks. Images from the original note were not included. Pended standing blood work while on Epclusa NOLAN Trinh MD Cindi O'Neill, RN Previous Messages ----- Message ----- From: Bhavya Cohen [facility] Sent: 01/20/2022 3:00 PM EDT To: Nat Quintero MD FY - Pt is scheduled to receive shipment of Epclusa on 01/22 and will start 01/23. Patient informed to contact office to schedule pertinent labs while on treatment. Full details on cost and medication counseling in this encounter. Bhavya Hi documented in this encounter [facility] Evaluation + Plan note Future Appointments Appointment Date:04/12/2023 08:00:00 AM Scheduled Provider:Sushil Edgar Jr., MD Location:[facility] Appointment Type:URO Office Visit Diagnostic Tests PendingPSA Total 04/06/22 [facility] Evaluation note Diagnosis Hepatitis C antibody positive in blood- Primary [facility] Chronic hepatitis C without hepatic coma (HCC)- Primary Chronic hepatitis C without mention of hepatic coma [facility] Diagnosis Effects of radiation, sequela- Primary [facility] Diagnosis Effects of radiation, sequela- Primary Head and neck cancer (HCC) Malignant neoplasm of head, face, and neck [facility] Diagnosis Chronic hepatitis C with hepatic coma (HCC)- Primary Chronic hepatitis C with hepatic coma [facility] Diagnosis Malignant neoplasm of head, 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, face, and neck Lung nodules Other nonspecific abnormal finding of lung field Disorder of thyroid Unspecified disorder of thyroid [facility] Diagnosis Localized enlarged lymph nodes- Primary Enlargement of lymph nodes Severe protein-calorie malnutrition (HCC) Other severe protein-calorie malnutrition Malignant neoplasm of head, 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, face, and neck History of head and neck cancer documented in this encounter [facility] course Narrative No data available for this section [facility] Summary Purpose Family History No Family History Records FoundNo Family History Records FoundNo Family History Records FoundNo Family History Records Found Advance Directives No Advanced Directives Records FoundNo Advanced Directives Records FoundNo Advanced Directives Records FoundNo Advanced Directives Records Found Reason for Referral Specialty Diagnoses / Procedures Referred By Contac t Referred To Contact CT IMAGING Diagnoses Localized enlarged lymph nodes History of head and neck cancer Procedures CT CHEST W IVCON DIAGNOSTIC COMPUTED TOMOGRAPHY THORAX W/CONTRAST Wyatt Garza MD [address] [place] [address] [place] [address] [place] [id number] Referral ID Status Reason Start Date Expiration Date Visits Requested Visits Authorized [id number] Authorized Auto-Generat ed Referral 12/19/2023 01/17/2025 1 1 Specialty Diagnoses / Procedures Referred By Contac t Referred To Contact CT IMAGING Diagnoses Lung nodules Procedures CT NECK SOFT TISSUE W IVCON CT SOFT TISSUE NECK W/CONTRAST MATERIAL Wyatt Garza MD [address] [place] [address] [place] [address] Ct Imaging Referral ID Status Reason Start Date Expiration Date Visits Requested Visits Authorized [id number] Authorized Auto-Generat ed Referral 12/16/2023 01/15/2024 1 1 Specialty Diagnoses / Procedures Referred By Contac t Referred To Contact CT IMAGING Diagnoses Lung nodules Procedures CT CHEST W IVCON DIAGNOSTIC COMPUTED TOMOGRAPHY THORAX W/CONTRAST Wyatt Garza MD [address] [place] [address] [place] [address] Ct Imaging Referral ID Status Reason Start Date Expiration Date Visits Requested Visits Authorized [id number] Authorized Auto-Generat ed Referral 12/16/2023 01/15/2024 1 1 Specialty Diagnoses / Procedures Referred By Contac t Referred To Contact CT IMAGING Diagnoses Effects of radiation, sequela Head and neck cancer (HCC) Procedures CT CHEST WO IVCON DIAGNOSTIC COMPUTED TOMOGRAPHY THORAX W/O CNTRST Engeler, G Dragan, MD [address] [place] [address] [place] [address] Ct Imaging Referral ID Status Reason Start Date Expiration Date Visits Requested Visits Authorized [id number] Pending Review Auto-Generat ed Referral 12/18/2022 07/17/2023 1 1 Additional Source Comments (unrecognized sect ion and content) No Status Records FoundNo Status Records FoundNo Status Records FoundNo Status Records Found INFORMATION SOURCE (unrecogn ized section and content) DATE CREATED AUTHOR 03/20/2019 [facility] DATE CREATED AUTHOR AUTHOR'S ORGANIZ ATION 03/07/2023 [facility] DATE CREATED AUTHOR AUTHOR'S ORGANIZ ATION 03/17/2023 [facility] DATE CREATED AUTHOR AUTHOR'S ORGANIZ ATION 12/20/2023 [facility] Source Comments (unrecognize d section and content) In the event this informatio n is protected by the Federal Confidentiality of Alcohol and Drug Abuse Patient Records regulations: The Federal rules restrict any use of the information to criminally investigate or prosecute any alcohol or drug abuse patient.[facility] the event this information is protected by the Federal Confidentiality of Alcohol and Drug Abuse Patient Records regulations: The Federal rules restrict any use of the information to criminally investigate or prosecute any alcohol or drug abuse patient.[facility] the event this information is protected by the Federal Confidentiality of Alcohol and Drug Abuse Patient Records regulations: The Federal rules restrict any use of the information to criminally investigate or prosecute any alcohol or drug abuse patient.[facility] the event this information is protected by the Federal Confidentiality of Alcohol and Drug Abuse Patient Records regulations: The Federal rules restrict any use of the information to criminally investigate or prosecute any alcohol or drug abuse patient.[facility] the event this information is protected by the Federal Confidentiality of Alcohol and Drug Abuse Patient Records regulations: The Federal rules restrict any use of the information to criminally investigate or prosecute any alcohol or drug abuse patient.[facility] the event this information is protected by the Federal Confidentiality of Alcohol and Drug Abuse Patient Records regulations: The Federal rules restrict any use of the information to criminally investigate or prosecute any alcohol or drug abuse patient.[facility] the event this information is protected by the Federal Confidentiality of Alcohol and Drug Abuse Patient Records regulations: The Federal rules restrict any use of the information to criminally investigate or prosecute any alcohol or drug abuse patient.[facility] the event this information is protected by the Federal Confidentiality of Alcohol and Drug Abuse Patient Records regulations: The Federal rules restrict any use of the information to criminally investigate or prosecute any alcohol or drug abuse patient.[facility]on[facility] the event this information is protected by the Federal Confidentiality of Alcohol and Drug Abuse Patient Records regulations: The Federal rules restrict any use of the information to criminally investigate or prosecute any alcohol or drug abuse patient.[facility] the event this information is protected by the Federal Confidentiality of Alcohol and Drug Abuse Patient Records regulations: The Federal rules restrict any use of the information to criminally investigate or prosecute any alcohol or drug abuse patient.[facility]on[facility] the event this information is protected by the Federal Confidentiality of Alcohol and Drug Abuse Patient Records regulations: The Federal rules restrict any use of the information to criminally investigate or prosecute any alcohol or drug abuse patient.[facility]on[facility] the event this information is protected by the Federal Confidentiality of Alcohol and Drug Abuse Patient Records regulations: The Federal rules restrict any use of the information to criminally investigate or prosecute any alcohol or drug abuse patient.[facility] Reason for Visit (unrecogniz ed section and content) Reason Comments Follow Up Reason Onset Date Comments [facility] - Medication Refill 02/11/2022 [facility] Reason Onset Date Comments [facility] - Medication Refill 03/11/2022 [facility] Reason Comments Results Reason Onset Date Comments [facility] - Follow-up 04/15/2022 [facility] - End of Treatment Reason Comments Lab Orders Reason Comments Head and Neck Cancer Reason Onset Date Comments [facility] - Follow-up 07/16/2022 [facility] treatment complete Reason Comments Head and Neck Cancer Specialty Diagnoses / Procedures Referred By Contac t Referred To Contact Hematology/Oncology / HEMATOLOGY/ONCOLOGY Diagnoses Encounter for follow-up examination after completed treatment for conditions other than malignant neoplasm 1 year follow up, labs w/ CT scan Procedures OFFICE/OUTPATIENT ESTABLISHED SF MDM 10-19 MIN OFFICE/OUTPATIENT ESTABLISHED LOW MDM 20-29 MIN OFFICE/OUTPATIENT ESTABLISHED MOD MDM 30-39 MIN OFFICE/OUTPATIENT ESTABLISHED HIGH MDM 40-54 MIN EST PATIENT Wyatt Garza MD [address] [place] [address] [place] [address] Wyatt Garza MD [address] [place] [address] [place] [address] Referral ID Status Reason Start Date Expiration Date Visits Re quested Visits Authorized [id number] Closed 12/08/2022 03/16/2023 1 1 Reason Comments Head and Neck Cancer 1 year follow up Care Teams (unrecognized sec tion and content) Phone Triage Specialist Relationship Specialty Start Date End Date Elba Crouch MD [address] [id number] PCP - General Family Practice 01/04/18 Phone Triage Specialist Relationship Specialty Start Date End Date Elba Crouch MD [address] [id number] PCP - General Family Practice 01/04/18 Phone Triage Specialist Relationship Specialty Start Date End Date Elba Crouch MD [address] [id number] PCP - General Family Practice 01/04/18 Phone Triage Specialist Relationship Specialty Start Date End Date Elba Crouch MD [address] [id number] PCP - General Family Practice 01/04/18 Phone Triage Specialist Relationship Specialty Start Date End Date Elba Crouch MD [address] [id number] PCP - General Family Medicine 01/04/18 Phone Triage Specialist Relationship Specialty Start Date End Date Elba Crouch MD [address] [id number] PCP - General Family Medicine 01/04/18 Phone Triage Specialist Relationship Specialty Start Date End Date Elba Crouch MD PCP - General Family Medicine 01/04/18 Phone Triage Specialist Relationship Specialty Start Date End Date Elba Crouch MD PCP - General Family Medicine 01/04/18 FOR RECORDS PERTAINING TO PATIENTS WHO ARE OR HAVE BEEN ENROLLED IN A CHEMICAL DEPENDENCY/SUBSTANCEABUSE PROGRAM, SOME INFORMATION MAY BE OMITTED. This clinical summary was aggregated from multiple sources. Caution should be exercised in using it in the provision of clinical care. This summary normalizes information from multiple sources, and as a consequence, information in this document may materially change the coding, format and clinical context of patient data. In addition, data may be omitted in some cases. CLINICAL DECISIONS SHOULD BE BASED ON THE PRIMARY CLINICAL RECORDS. [facility]. provides no warranty or guarantee of the accuracy or completeness of information in this document.
== END 2024-01-31 15:30 | disposition home or self-care (01) ==
PROVIDERS: Emergency Provider Emergency Medicine Emergency Medical Services; PCP Family Medicine
DX: F10.129 Alcohol abuse with intoxication, unspecified (principal); Y90.6 Blood alcohol level of 120-199 mg/100 ml; Z79.899 Other long term (current) drug therapy; F17.210 Nicotine dependence, cigarettes, uncomplicated; F11.10 Opioid abuse, uncomplicated; Z85.810 Personal history of malignant neoplasm of tongue; Z85.819 Personal history of malignant neoplasm of unspecified site of lip, oral cavity, and pharynx
CPT/HCPCS: 36415; 70450; 80053; 80320; 85025; 93005; 99285

== ENCOUNTER 2024-02-24 16:21 | Emergency (ER) | payer MEDICARE, MEDICAID, SELFPAY ==
[2024-02-24 16:24] VITALS: BP 160/90; PULSE 90; TEMP 36.7; O2SAT 99; BMI 25.0
--- NOTE | 2024-02-24 16:25 | ED_ITS ---
HPI HPI - General Adult General Chief complaint: Overdose Stated complaint: unresponsive Time Seen by Provider: 02/24/24 16:25 History of Present Illness HPI narrative: 68-year-old male presents after being found unresponsive. He was in his home and he states he was just sleeping. Medics were called and he does not know who called them. He thinks it may have been his son. When they arrived his respirations were quite diminished and slow in his pupils were pinpoint. He was unarousable and he was given IV Narcan and he then woke up. Right now he has no physical complaints. He denies any drug use. Related Data Home Medications ?Medication ?Instructions ?Recorded ?Confirmed tamsulosin 0.4 mg capsule 0.4 mg PO Q24H 02/24/24 02/24/24 Allergies Allergy/AdvReac Type Severity Reaction Status Date / Time No Known Drug Allergies Allergy Verified 07/04/23 19:27 Opioid HPI Opioid Management Most Recent Opioid Data: Last Pain Scale 0 01/31/24 12:30 Ur Phencyclidine Scrn Negative (NEGATIVE) 07/05/23 00:00 Review of Systems ROS Narrative A ten point review of systems is negative except as noted above. PFSH PFSH Medical History Narcotic abuse ?F11.10 - Opioid abuse, uncomplicated (ICD-10) AA (alcohol abuse) ?F10.10 - Alcohol abuse, uncomplicated (ICD-10) Tongue cancer ?C02.9 - Malignant neoplasm of tongue, unspecified (ICD-10) Throat cancer ?C14.0 - Malignant neoplasm of pharynx, unspecified (ICD-10) Family History Mother Family history of CHF (congestive heart failure) Family history of stroke Mother Family history of diabetes mellitus Father Family history of diabetes mellitus Social History Within the past year, how often did you have a drink containing alcohol: 4 or more times a week Within the past year, how many standard drinks containing alcohol did you have on a typical day: 10 or more Within the past year, how often did you have six or more drinks on one occasion: daily or almost daily Total score: 12 Score interpretation: A score of 4 or more indicates drinking is likely to affect patient's safety. Smoking status: Current every day smoker What tobacco products do you use: cigarettes Packs per day: 2 Non-prescribed substance use: former substance user Previous occupational history: unemployed Highest level of school completed/degree received: 8th grade Are you now , , , , never or living with a partner: don't know In a typical week, how many times do you talk on the telephone with family, friends, or neighbors: 3 or more times per week Little interest or pleasure in doing things: more than half the days Feeling down, depressed, or hopeless: not at all Feel stressed/tense/nervous/anxious/difficulty sleeping: to some extent Exam Narrative Exam Narrative: Nurses note and vital signs reviewed and patient is not hypoxic. General: The patient appears well and in no apparent distress. Patient is resting comfortably on cart. Skin: Warm, dry, no pallor noted. There is no rash noted. Head: Normocephalic, atraumatic Eye: Normal conjunctiva, no drainage, EOMI. PERRL Ears, Nose, Mouth, and Throat: oral mucosa is moist. Nares patent. Cardiovascular: Regular Rate and Rhythm Respiratory: Patient is in no distress, no accessory muscle use, lungs are clear to auscultation, no wheezing, rales or rhonchi Back: non-tender GI: Soft and nontender Musculoskeletal: The patient has no evidence of calf tenderness, no pitting edema, symmetrical pulses noted bilaterally Neurological: A&O x4, normal speech Psychiatric: Cooperative Constitutional Vital Signs, click to edit/add: Last Vital Signs Temp 98.0 F 02/24/24 16:24 Pulse 90 02/24/24 16:24 Resp 16 02/24/24 16:24 BP 160/90 H 02/24/24 16:24 Pulse Ox 99 02/24/24 16:24 O2 Del Method Room Air 02/24/24 16:24 Course Vital Signs Vital signs: Vital Signs Temperature 98.0 F 02/24/24 16:24 Pulse Rate 90 02/24/24 16:24 Respiratory Rate 16 02/24/24 16:24 Blood Pressure 160/90 H 02/24/24 16:24 Pulse Oximetry 99 02/24/24 16:24 Oxygen Delivery Method Room Air 02/24/24 16:24 Temperature 98.0 F 02/24/24 16:24 Pulse Rate 90 02/24/24 16:24 Respiratory Rate 16 02/24/24 16:24 Blood Pressure 160/90 H 02/24/24 16:24 Pulse Oximetry 99 02/24/24 16:24 Oxygen Delivery Method Room Air 02/24/24 16:24 Medical Decision Making MDM Narrative Medical decision making narrative: The patient is fully alert and oriented and he is refusing any care. He would not stay for his treatment. He is fully able to make medical decisions for himself. Differential Diagnosis Differential Diagnosis: Narcotic overdose, substance abuse Discharge Plan Discharge Stand Alone Forms: Portal Instructions Chief Complaint: Overdose Clinical Impression: Overdose Patient Disposition: Left Against Medical Advice Time of Disposition Decision: 16:45 Condition: Good Mode of Transportation: Private Vehicle Prescriptions / Home Meds: No Action tamsulosin 0.4 mg capsule 0.4 mg PO Q24H Print Language: Upper Sorbian Instructions: Adult Overdose (ED) Referrals: Bird Crouch MD [Primary Care Provider] - 1 week
--- OUTSIDE RECORDS SUMMARY | 2024-02-24 16:44 | XMS_ITS | CCD ---
Author Organization [facility] Care Team Providers Care Low Pressure Kettle Operator Name Role Phone Elba Crouch Primary Care Unavailable Jen Qureshi Admitting Unavailable Jen Qureshi Attending Unavailable Elba Crouch MD Primary Care Provider Elba Crouch Primary Care Physician Elba Crouch MD Primary Care Provider [phone] Elba Crouch MD Primary Care Provider [phone] Elba Crouch MD Primary Care Provider [phone] ELBA OTOOLE Primary Care Unavailable [...] Unavailable Elba Crouch MD Primary Care Provider [phone] ELBA CROUCH Primary Care Unavailable ABHYANKAR, WYATT [...] on above: Take 1 capsule by mo [facility] every afternoon. Problems Active Problems Problem Classification [...] CNOVSP Visit (SP) Office (HEMAS[place]) ADELFO NOLAN ([id number]) 1955 M Date Time Provider Department 12/19/23 10:30 AM WYATT GARZA During your visit today, we recorded the following information about you: Temperature Pulse Respiration Blood pressure 97.6 degrees 71/minute 16/minute 145/78 Weight Height 68.6 kg 1.651 m Wyatt Garza MD 12/19/2023 9:13 PM Signed NAME: Adelfo Nolan CLINIC NO.: [id number] DATE OF SERVICE: December 19, 2023 ([facility]) Some elements in this clinic note that [...] November 2021 (more content not included)... Normal [facility] Abe 12-19-2023 CNPN Telephone (SHANI) ADELFO NOLAN ([id number]) 1955 M Date Time Provider Department 12/19/23 ZENY TOM During your visit today, we recorded the following information about you: Zeny Tom RN 12/19/2023 12:17 PM Signed ----- Message from Wyatt Garza MD sent at 12/17/2023 8:59 AM EST ----- Scans are stable - I will discuss at his appointment. Zeny Tom RN 12/19/2023 12:19 PM Signed Pt informed of oBaz's message and denies any questions, needs or [...] Status:Closed by ZENY TOM on 12/19/23 Normal [facility] CBC W Auto Differential pane l (Bld)on 12-16-2023 Basophils (Bld) [#/Vol] 0.05 10*3/uL Normal <0.11 [facility] Comment on above: Order Comment: Speci men Type: BLOOD SPECIMEN Ordering Facility: [facility] Address: [address] [place] [address] Performed By: #### 5 7021-8 #### [facility] CLIA [id number] [address] [place] [address] 34365 Basophils/100 WBC (Bld) 1.2 % Normal [facility] Comment on above: Order Comment: Speci men Type: BLOOD SPECIMEN Ordering Facility: [facility] Address: [facility] [place] [address] Performed By: #### 5 7021-8 #### [facility] CLIA [id number] [address] [place] [address] 83717 Differential cell count method Nom (Bld) Auto Normal [facility] Comment on above: Order Comment: Speci men Type: BLOOD SPECIMEN Ordering Facility: [facility] Address: [address] [place] [place] [address] Performed By: #### 5 7021-8 #### [facility] CLIA [id number] [address] [place] [address] 50385 Eosinophils (Bld) [#/Vol] 0.04 10*3/uL Normal <0.46 [facility] Comment on above: Order Comment: Speci men Type: BLOOD SPECIMEN Ordering Facility: [facility] Address: [address] [place] [place] [address] Performed By: #### 5 7021-8 #### [facility] CLIA [id number] [address] [place] [address] 17848 Eosinophils/100 WBC (Bld) 0.9 % Normal [facility] Comment on above: Order Comment: Speci men Type: BLOOD SPECIMEN Ordering Facility: [facility] Address: [address] [place] [place] [address] Performed By: #### 5 7021-8 #### [facility] CLIA [id number] [address] [place] [address] 50733 Erythrocyte distribution width (RBC) [Ratio] 13.1 % Normal 11.5-15.0 [facility] Comment on above: Order Comment: Speci men Type: BLOOD SPECIMEN Ordering Facility: [facility] Address: [address] [place] [place] [address] Performed By: #### 5 7021-8 #### [facility] CLIA [id number] [address] [place] [address] 42767 Hematocrit (Bld) [Volume fraction] 38.0 % Low 39.0-51.0 [facility] Comment on above: Order Comment: Speci men Type: BLOOD SPECIMEN Ordering Facility: [facility] Address: [address] [place] [place] [address] Performed By: #### 5 7021-8 #### [facility] CLIA [id number] [address] [place] [address] 73032 Hemoglobin (Bld) [Mass/Vol] 12.9 g/dL Low 13.0-17.0 [facility] Comment on above: Order Comment: Speci men Type: BLOOD SPECIMEN Ordering Facility: [facility] Address: [address] [place] [place] [address] Performed By: #### 5 7021-8 #### [facility] CLIA [id number] [address] [place] [address] 97366 Immature granulocytes (Bld) [#/Vol] 10*3/uL Normal <0.10 [facility] Comment on above: Order Comment: Speci men Type: BLOOD SPECIMEN Ordering Facility: [facility] Address: [address] [place] [place] [address] Performed By: #### 5 7021-8 #### [facility] CLIA [id number] [address] [place] [address] 45486 Immature granulocytes/100 WBC (Bld) 0.2 % Normal [facility] Comment on above: Order Comment: Speci men Type: BLOOD SPECIMEN Ordering Facility: [facility] Address: [address] [place] [address] Performed By: #### 5 7021-8 #### [facility] CLIA [id number] [address] [place] [address] 89073 Lymphocytes (Bld) [#/Vol] 0.83 10*3/uL Low 1.00-4.00 [facility] Comment on above: Order Comment: Speci men Type: BLOOD SPECIMEN Ordering Facility: [facility] Address: [address] [place] [place] [address] Performed By: #### 5 7021-8 #### [facility] CLIA [id number] [address] [place] [address] 41473 Lymphocytes/100 WBC (Bld) 19.5 % Normal [facility] Comment on above: Order Comment: Speci men Type: BLOOD SPECIMEN Ordering Facility: [facility] Address: [address] [place] [place] [address] Performed By: #### 5 7021-8 #### [facility] CLIA [id number] [address] [place] [address] 07050 MCH (RBC) [Entitic mass] 31.7 pg Normal 26.0-34.0 [facility] Comment on above: Order Comment: Speci men Type: BLOOD SPECIMEN Ordering Facility: [facility] Address: [address] [place] [place] [address] Performed By: #### 5 7021-8 #### [facility] CLIA [id number] [address] [place] [address] 06030 MCHC (RBC) [Mass/Vol] 33.9 g/dL Normal 30.5-36.0 [facility] Comment on above: Order Comment: Speci men Type: BLOOD SPECIMEN Ordering Facility: [facility] Address: [address] [place] [place] [address] Performed By: #### 5 7021-8 #### [facility] CLIA [id number] [address] [place] [address] 74321 MCV (RBC) [Entitic vol] 93.4 fL Normal 80.0-100.0 [facility] Comment on above: Order Comment: Speci men Type: BLOOD SPECIMEN Ordering Facility: [facility] Address: [address] [place] [place] [address] Performed By: #### 5 7021-8 #### [facility] CLIA [id number] [address] [place] [address] 39724 Monocytes (Bld) [#/Vol] 0.37 10*3/uL Normal <0.87 [facility] Comment on above: Order Comment: Speci men Type: BLOOD SPECIMEN Ordering Facility: [facility] Address: [address] [place] [address] Performed By: #### 5 7021-8 #### [facility] CLIA [id number] [address] [place] [address] 58903 Monocytes/100 WBC (Bld) 8.7 % Normal [facility] Comment on above: Order Comment: Speci men Type: BLOOD SPECIMEN Ordering Facility: [facility] Address: [address] [place] [address] Performed By: #### 5 7021-8 #### [facility] CLIA [id number] [address] [place] [address] 71124 Neutrophils (Bld) [#/Vol] 2.95 10*3/uL Normal 1.45-7.50 [facility] Comment on above: Order Comment: Speci men Type: BLOOD SPECIMEN Ordering Facility: [facility] Address: [address] [place] [place] [address] Performed By: #### 5 7021-8 #### [facility] CLIA [id number] [address] [place] [address] 66552 Neutrophils/100 WBC (Bld) 69.5 % Normal [facility] Comment on above: Order Comment: Speci men Type: BLOOD SPECIMEN Ordering Facility: [facility] Address: [address] [place] [place] [address] Performed By: #### 5 7021-8 #### [facility] CLIA [id number] [address] [place] [address] 10876 Nucleated RBC (Bld) [#/Vol] 10*3/uL Normal <0.01 [facility] Comment on above: Order Comment: Speci men Type: BLOOD SPECIMEN Ordering Facility: [facility] Address: [address] [place] [place] [address] Performed By: #### 5 7021-8 #### [facility] CLIA [id number] [address] [place] [address] 29768 Nucleated RBC/100 WBC (Bld) [Ratio] 0.0 /100 WBC Normal [facility] Comment on above: Order Comment: Speci men Type: BLOOD SPECIMEN Ordering Facility: [facility] Address: [address] [place] [address] Performed By: #### 5 7021-8 #### [facility] CLIA [id number] [address] [place] [address] 19994 Platelet mean volume (Bld) [Entitic vol] 9.6 fL Normal 9.0-12.7 [facility] Comment on above: Order Comment: Speci men Type: BLOOD SPECIMEN Ordering Facility: [facility] Address: [address] [place] [address] Performed By: #### 5 7021-8 #### [facility] CLIA [id number] [address] [place] [address] 87354 Platelets (Bld) [#/Vol] 197 10*3/uL Normal 150-400 [facility] Comment on above: Order Comment: Speci men Type: BLOOD SPECIMEN Ordering Facility: [facility] Address: [address] [place] [address] 32942 Performed By: #### 5 7021-8 #### [facility] CLIA [id number] [address] [place] [address] 25377 RBC (Bld) [#/Vol] 4.07 10*6/uL Low 4.20-6.00 [facility] Comment on above: Order Comment: Speci men Type: BLOOD SPECIMEN Ordering Facility: [facility] Address: [address] [place] [address] Performed By: #### 5 7021-8 #### [facility] CLIA [id number] [address] [place] [address] 38972 WBC (Bld) [#/Vol] 4.25 10*3/uL Normal 3.70-11.00 [facility] Comment on above: Order Comment: Speci men Type: BLOOD SPECIMEN Ordering Facility: [facility] Address: [address] [place] [address] 75808 Performed By: #### 5 7021-8 #### [facility] CLIA [id number] [address] [place] [address] CT CHEST W IVCONon 4 CT CHEST W IVCON * * *Final Report* * * DATE OF EXAM: Dec 16 2023 10:46AM [facility] 0539 - CT CHEST W IVCON / [...] No abnormality in the imaged upper abdomen. Dairy Nutrition Specialist (topogram) images: No additional findings. IMPRESSION: 1. [...] any questions regarding this interpretation, please call [phone]. If you are unable to reach us at the number above, please feel free to contact [facility] at [phone]. [id number] N Normal [facility] CT NECK SOFT TISSUE W IVCONo n 12-16-2023 CT NECK SOFT TISSUE W IVCON * * *Final Report* * * DATE OF EXAM: Dec 16 2023 10:46AM [facility] 0013 - CT NECK SOFT TISSUE W [...] The soft tissue planes of the adjacent final tester spaces are maintained. Mild dystrophic calcification is [...] any questions regarding this interpretation, please call [phone]. If you are unable to reach us at the number above, please feel free to contact [facility] at [phone]. [id number] N Normal [facility] Comprehensive metabolic 2000 panelon 12-16-2023 Albumin [Mass/Vol] 4.4 g/dL Normal 3.9-4.9 [facility] Comment on above: Order Comment: Speci men Type: BLOOD SPECIMEN Ordering Facility: [facility] Address: [address] [place] [place] [address] Performed By: #### 2 4323-8 #### [facility] CLIA [id number] [address] [place] [address] 13739 ALP [Catalytic activity/Vol] 76 U/L Normal 38-113 [facility] Comment on above: Order Comment: Speci men Type: BLOOD SPECIMEN Ordering Facility: [facility] Address: [address] [place] [place] [address] Performed By: #### 2 4323-8 #### [facility] CLIA [id number] [address] [place] [address] 03910 ALT [Catalytic activity/Vol] 9 U/L Low 10-54 [facility] Comment on above: Order Comment: Speci men Type: BLOOD SPECIMEN Ordering Facility: [facility] Address: [address] [place] [place] [address] Performed By: #### 2 4323-8 #### [facility] CLIA [id number] [address] [place] [address] 04756 Anion gap [Moles/Vol] 11 mmol/L Normal 9-18 [facility] Comment on above: Order Comment: Speci men Type: BLOOD SPECIMEN Ordering Facility: [facility] Address: [address] [place] [address] Performed By: #### 2 4323-8 #### [facility] CLIA [id number] [address] [place] [address] AST [Catalytic activity/Vol] 21 U/L Normal 14-40 [facility] Comment on above: Order Comment: Speci men Type: BLOOD SPECIMEN Ordering Facility: [facility] Address: [address] [place] [id number] Performed By: #### 2 4323-8 #### [facility] CLIA [id number] [address] [place] [address] 03635 Bilirubin [Mass/Vol] 0.8 mg/dL Normal 0.2-1.3 [facility] Comment on above: Order Comment: Speci men Type: BLOOD SPECIMEN Ordering Facility: [facility] Address: [address] [place] [address] Performed By: #### 2 4323-8 #### [facility] CLIA [id number] [address] [place] [address] 89428 Calcium [Mass/Vol] 10.2 mg/dL Normal 8.5-10.2 [facility] Comment on above: Order Comment: Speci men Type: BLOOD SPECIMEN Ordering Facility: [facility] Address: [address] [place] [address] Performed By: #### 2 4323-8 #### [facility] CLIA [id number] [address] [place] [address] 68307 Chloride [Moles/Vol] 99 mmol/L Normal 97-105 [facility] Comment on above: Order Comment: Speci men Type: BLOOD SPECIMEN Ordering Facility: [facility] Address: [address] [place] [address] Performed By: #### 2 4323-8 #### [facility] CLIA [id number] [address] [place] [address] CO2 [Moles/Vol] 25 mmol/L Normal 22-30 [facility] Comment on above: Order Comment: Gretel hilario Type: BLOOD SPECIMEN Ordering Facility: [facility] Address: [address] [place] [address] Performed By: #### 2 4323-8 #### [facility] CLIA [id number] [address] [place] [address] 20478 Creatinine [Mass/Vol] 0.84 mg/dL Normal 0.73-1.22 [facility] Comment on above: Order Comment: Gretel men Type: BLOOD SPECIMEN Ordering Facility: [facility] Address: [address] [place] [address] Performed By: #### 2 4323-8 #### [facility] CLIA [id number] [address] [place] [address] 68296 Creatinine and Glomerular filtration rate.predicted panel (S/P/Bld) 96 mL/min/1.73m??? Normal >=60 [facility] Comment on above: Order Comment: Gretel hilario Type: BLOOD SPECIMEN Ordering Facility: [facility] Address: [address] [place] [address] Result Comment: Lulú mated Glomerular Filtration Rate [...] GFR. Performed By: #### 2 4323-8 #### [facility] CLIA [id number] [address] [place] [address] 16979 Glucose [Mass/Vol] 99 mg/dL Normal 74-99 [facility] Comment on above: Order Comment: Gretel hilario Type: BLOOD SPECIMEN Ordering Facility: [facility] Address: [address] [place] [id number] Result Comment: The [place] Diabetes Association (ADA) provides guidance for cutoff [...] Standards of Medical Care in Diabetes 2016, [place] Diabetes Association. Diabetes Care. 2016.39(Suppl 1). Performed By: #### 2 4323-8 #### [facility] CLIA [id number] [address] [place] [address] 73733 Potassium [Moles/Vol] 4.5 mmol/L Normal 3.7-5.1 [facility] Comment on above: Order Comment: Arturi yanelis Type: BLOOD SPECIMEN Ordering Facility: [facility] Address: [address] [place] [address] Performed By: #### 2 4323-8 #### [facility] CLIA [id number] [address] [place] [address] 68799 Protein [Mass/Vol] 7.2 g/dL Normal 6.3-8.0 [facility] Comment on above: Order Comment: Arturi yanelis Type: BLOOD SPECIMEN Ordering Facility: [facility] Address: [address] [place] [id number] Performed By: #### 2 4323-8 #### [facility] CLIA [id number] [address] [place] [address] 47870 Sodium [Moles/Vol] 135 mmol/L Low 136-144 [facility] Comment on above: Order Comment: Speci men Type: BLOOD SPECIMEN Ordering Facility: [facility] Address: [address] [place] [address] Performed By: #### 2 4323-8 #### [facility] CLIA [id number] [address] [place] [address] 24376 Urea nitrogen [Mass/Vol] 12 mg/dL Normal 9-24 [facility] Comment on above: Order Comment: Speci men Type: BLOOD SPECIMEN Ordering Facility: [facility] Address: [address] [id number] Performed By: #### 2 4323-8 #### [facility] CLIA [id number] [address] [place] [address]1441 Provider Letteron 03-16-2023 Provider Letter March 16, 2023 ADELFO NOLAN [address] [place] [phone] ADELFO NOLAN 1955 Dear Megha Lito , [...] prompt attention to this matter. Please call [phone] and choose the union representative option. Sincerely, [facility] [address] [place], [place] [id number] [facility] Provider Letteron 03-03-2023 Provider Letter March 03, 2023 ADELFO NOLAN [address] [place] [phone] ADELFO NOLAN 1955 Dear Thom , We have been trying to reach you with no success. You have an appointment with Dr. Sushil Edgar on 04/12/2023 which will need to be rescheduled. Please contact the office at the number listed below to get this appointment rescheduled at your earliest convenience. Thank you for your prompt attention to this matter. Sincerely, [facility] [address] [facility], [place] [address] [facility] XR ANKLE RT MIN [...] ACE ARREOLA Date: 2023-01-27 14:40 Normal [facility] XR ANKLE RT MIN 3 VIEWSon XR [...] BENEDICTO THAO Date: 2022-12-29 12:44 Normal [facility] Ambulatory Visit Summaryon 0 04-06-2022 Ambulatory Visit Summary ADELFO NOLAN :1955 Visit Date:04/06/2022 Ambulatory Visit Instructions Your Diagnosis BPH without urinary obstruction Nocturia Tests Performed Urnls Dip Stick Auto w/o Microscopy POC 91902 Your Care Team Attending Physician - Herve [...] Sushil De Leon Where: [facility] Jose Mancini [facility] Patient Educationon 04-06-20 22 Patient Education Urology [...] these instructions at home: Medicines ? Take foke-wpw-tiadeqq and prescription medicines only as told by [...] the blood stops without treatment. ? Take iwtf-aru-imiavww and prescription medicines only as told by your health care provider. ? Drink enough fluid to keep your urine clear or pale yellow. This information is not intended to replace advice given to you by your health care provider. Make sure you discuss any questions you have with your health care provider. Document Released: 10/24/2006 Document Revised: 03/19/2020 Document Reviewed: 11/26/2017 [employer] Patient Education ? 2019 [email or web address]. [facility] Office/Clinic Noteon 04-06-2022 Urology Office/Clinic Note Chief Complaint 7 month with PSA This patient is a 66-year-old male with a history of gross painless hematuria. This has resolved. At present he states he is voiding without any difficulty. He still has occasionally discolored urine but he believes is related to the medication he is taking. Urinalysis was evaluated today. [facility] Staff Adelfo is here today for a 7 month follow up with PSA. Previous PSA done on 02/26/21 was 2.07. Pt states he got his PSA drawn at Dr. Baez I looked in clinsynj and it shows T4 and testosterone. Previous [...] Urnls Dip Stick Auto w/o Microscopy POC 11278 2. Nocturia (R35.1: Nocturia) ongoing 2x a night Follow-up With When Contact Information Herve Flores MD, Sushil De Leon, URO In 1 year 04/06/2023 EDT [facility] [address], [place] [address]- Additional Instructions: w/psa Patient Education Hematuria, Adult [...] data Procedure (more content not included)... Normal [facility] Comment on above: Result Comment: Elec tronically Signed By: Herve Flores MD, Sushil D eLeon\.br\Date and Time Signed: 04/06/22 12:01 EDT\.br\Electronically Co-Signed By: Mariam Mchugh MA\.br\Date and Time Co-Signed: 04/06/22 11:59 EDT Vital Signs Date Time Vital Sign Value Performing Clinician Facility 12-19-2023 10:07-0500 Body height 165.1 cm Wyatt Garza MD Work Phone: [facility] 12-19-2023 10:07-0500 Body temperature 97.59 [degF] Wyatt Garza MD Work Phone: [facility] 12-19-2023 10:07-0500 Body weight 68.6 kg Wyatt Garza MD Work Phone: [facility] 12-19-2023 10:07-0500 Diastolic blood pressure 78 mm[Hg] Wyatt Garza MD Work Phone: [facility] 12-19-2023 10:07-0500 Heart rate 71 /min Wyatt Garza MD Work Phone: [facility] 12-19-2023 10:07-0500 Respiratory rate 16 /min Wyatt Garza MD Work Phone: [facility] 12-19-2023 10:07-0500 SaO2% (BldA) [Mass fraction] 98 % Wyatt Garza MD Work Phone: [facility] 12-19-2023 10:07-0500 Systolic blood pressure 145 mm[Hg] Wyatt Garza MD Work Phone: [facility] 12-16-2022 10:48-0500 Body height 165.1 cm Wyatt Garza MD Work Phone: [facility] 12-16-2022 10:48-0500 Body temperature 97.59 [degF] Wyatt Garza MD Work Phone: [facility] 12-16-2022 10:48-0500 Body weight 69.58 kg Wyatt Garza MD Work Phone: [facility] 12-16-2022 10:48-0500 Diastolic blood pressure 100 mm[Hg] Wyatt Garza MD Work Phone: [facility] 12-16-2022 10:48-0500 Heart rate 94 /min Wyatt Garza MD Work Phone: [facility] 12-16-2022 10:48-0500 Respiratory rate 16 /min Wyatt Garza MD Work Phone: [facility] 12-16-2022 10:48-0500 SaO2% (BldA) [Mass fraction] 95 % Wyatt Garza MD Work Phone: [facility] 12-16-2022 10:48-0500 Systolic blood pressure 139 mm[Hg] Wyatt Garza MD Work Phone: [facility] 06-17-2022 10:45-0400 Body temperature 98.1 [degF] KAVIN Atkins MD Work Phone: [facility] 06-17-2022 10:45-0400 Body weight 66.22 kg KAVIN Atkins MD Work Phone: [facility] 06-17-2022 10:45-0400 Diastolic blood pressure 81 mm[Hg] KAVIN Atkins MD Work Phone: [facility] 06-17-2022 10:45-0400 Heart rate 89 /min KAVIN Atkins MD Work Phone: [facility] 06-17-2022 10:45-0400 Respiratory rate 18 /min KAVIN Atkins MD Work Phone: [facility] 06-17-2022 10:45-0400 SaO2% (BldA) [Mass fraction] 100 % KAVIN Atkins MD Work Phone: [facility] 06-17-2022 10:45-0400 Systolic blood pressure 146 mm[Hg] KAVIN Atkins MD Work Phone: [facility] 04-06-2022 11:34-0400 Blood Pressure Location Sushil Edgar Jr. [facility] 04-06-2022 11:34-0400 Diastolic blood pressure 89 mm[Hg] Sushil Edgar Jr. [facility] 04-06-2022 11:34-0400 Heart rate 72 /min Sushil Edgar Jr. [facility] 04-06-2022 11:34-0400 Respiratory rate 16 /min Sushil Edgar Jr. [facility] 04-06-2022 11:34-0400 Systolic blood pressure 141 mm[Hg] Sushil Edgar Jr. [facility] Encounters Encounter Date Encounter Type Care Provider Facility Start: 12-19-2023 Telephone encounter Zeny Torres Hematology/Oncology Comment on above: Results Start: 12-19-2023 End: 12-19-2023 ambulatory ELBA [facility] Facility:[facility] Start: 12-19-2023 End: 12-19-2023 Office outpatient visit 25 minutes Wyatt Garza MD Work Phone: Hematology/Oncology Comment on above: Localized enlarged l ymph nodes (Primary Dx); Severe protein-calorie malnutrition (HCC); Malignant neoplasm of head, face and neck (HCC); History of head and neck cancer Start: 12-16-2023 End: 12-16-2023 ambulatory ELBA CROUCH Facility:[facility] Start: 04-12-2023 ambulatory Sushil Edgar Facility : [place] Start: 03-10-2023 ambulatory LEONA Celaya y:H1 Start: [...] ty:H1 Start: 07-29-2022 [facility] Comment on above: Chronic hepatitis C with hepatic coma (HCC) (Primary Dx) Start: 07-16-2022 ambulatory Bhavya Cohen [facility] Start: 07-16-2022 Follow-up encounter Bhavya Cohen [facility] Comment on above: SPP Hepatology - Fol low-up (Epclusa treatment complete) Start: 06-17-2022 End: 06-17-2022 Patient encounter procedure Moiz Atkins MD Work Phone: Radiation Oncology Comment on above: Effects of radiation , sequela (Primary Dx); Head and neck cancer (HCC) Start: 06-09-2022 Telephone encounter Mozi Atkins MD Work Phone: Radiation Oncology Comment on above: Lab Orders Start: 04-15-2022 ambulatory Bhavya [facility] CC [facility] Start: 04-15-2022 Follow-up encounter Bhavya Cohen [facility] Comment on above: SPP Hepatology - Fol low-up (Epclusa - End of Treatment) Start: 04-06-2022 End: 04-07-2022 ambulatory Sushil De Leon Edgar Facility:[facility] Start: 04-06-2022 End: 04-06-2022 Patient encounter procedure Sushil Edgar Jr. [facility] Start: 03-22-2022 Telephone encounter Nat de leon MD Work Phone: Gastroenterology Comment on above: Results Start: 03-11-2022 [facility] Comment on above: SPP Hepatology - Med ication Refill (Epclusa) Start: 02-11-2022 Specialty Pharmacy Bhavyaalex Cohen [facility] Comment on above: SPP Hepatology - Med ication Refill (Epclusa) Start: 01-25-2022 Telephone encounter Nat de leon MD Work Phone: Gastroenterology Comment on above: Follow Up Start: 03-14-2018 End: 03-15-2018 Patient encounter procedure Elba Crouch Facility:[facility] Procedures Date Procedure Procedure Detail Performing Clinician Start: 12-17-2021 Adult depression scr eening assessment Nat Quintero MD Work Phone: Start: 03-04-2021 Cystoscopy Sushil martinez Jr. Start: 09-01-2020 Cystoscopy Sushil martinez Jr. Biopsy of tongue Sushil fiore Jr. Chemotherapy Sushil [place] Plan of Treatment Date Care Activity Detail Author Start: 12-16-2026 Diabetes Screening Diabetes Screenin moiz [facility] Start: 02-26-2026 PROSTATE CANCER SCREENING DISCUSSION PROSTATE CANCER SCREENING DISCUSSION [facility] Start: 12-15-2025 DIABETES SCREEN DIABETES SCREEN [facility] Start: 12-16-2024 DIABETES SCREEN DIABETES SCREEN [facility] Start: 12-16-2024 Screening for malign ant neoplasm of lung Lung Cancer Screening [facility] Start: 01-30-2024 End: 01-17-2025 CREATININE BLD CREATININE BLD Lab Routine Localized enlarged lymph nodes History of head and neck cancer Expected: 01/30/2024, Expires: 01/17/2025 [facility] Work Phone: Comment on above: Expected: 01/30/2024 , Expires: 01/17/2025 Start: 01-30-2024 End: 01-17-2025 CT Chest W contrast IV CT CHEST W IVCON Radiology Routine Localized enlarged lymph nodes History of head and neck cancer Expected: 01/30/2024, Expires: 01/17/2025 [facility] Work Phone: Comment on above: Expected: 01/30/2024 , Expires: 01/17/2025 Start: 12-16-2023 End: 12-16-2023 CBC W Auto Differential panel - Blood CBC + DIFF Lab Routine Lung nodules Expected: 12/16/2023 (Approximate), Expires: 12/16/2023 [facility] Work Phone: Comment on above: Expected: 12/16/2023 (Approximate), Expires: 12/16/2023 Start: 12-16-2023 End: 12-16-2023 Comprehensive metabolic 2000 panel - Serum or Plasma COMP METABOLIC PANEL Lab Routine Lung nodules Expected: 12/16/2023 (Approximate), Expires: 12/16/2023 [facility] Work Phone: Comment on above: Expected: 12/16/2023 (Approximate), Expires: 12/16/2023 Start: 12-16-2023 End: 01-15-2024 CT CHEST W IVCON CT CHEST W IVCON Radiology Routine Lung nodules Expected: 12/16/2023 (Approximate), Expires: 01/15/2024 [facility] Work Phone: Comment on above: Expected: 12/16/2023 (Approximate), Expires: 01/15/2024 Start: 12-16-2023 End: 01-15-2024 Ct soft tissue neck w/contrast material CT NECK SOFT TISSUE W IVCON Radiology Routine Lung nodules Expected: 12/16/2023 (Approximate), Expires: 01/15/2024 [facility] Work Phone: Comment on above: Expected: 12/16/2023 (Approximate), Expires: 01/15/2024 Start: 12-15-2023 Influenza vaccination LUNG CANCER [facility] Start: 11-07-2023 Advance Directive Discussion Advance Directive Discussion [facility] Start: 11-07-2023 [facility] Start: 07-08-2023 Influenza vaccination Influenza Vacc ine (#1) [facility] Start: 12-18-2022 End: 07-17-2023 Ct thorax w/o contrast material CT CHEST WO IVCON Radiology Routine Effects of radiation, sequela Head and neck cancer (HCC) Expected: 12/18/2022, Expires: 07/17/2023 [facility] Work Phone: Comment on above: Expected: 12/18/2022 , Expires: 07/17/2023 Start: 12-17-2022 Adult depression screening assessment DEPRESSION SCREENING [facility] Start: 12-16-2022 Influenza vaccination LUNG CANCER [facility] Start: 11-07-2022 ADVANCE DIRECTIVE DISCUSSION ADVANCE DIRECTIVE DISCUSSION [facility] Start: 11-07-2022 DEPRESSION ASSESSMENT [facility]ION [facility] Start: 07-30-2022 End: 09-29-2022 Hepatitis C virus RNA [Units/volume] (viral load) in Serum or Plasma by PAULA with probe detection HCV QUANT RNA BY PCR Lab Routine Chronic hepatitis C with hepatic coma (HCC) Expected: 07/30/2022 (Approximate), Expires: 09/29/2022 [facility] Work Phone: Comment on above: Expected: 07/30/2022 (Approximate), Expires: 09/29/2022 Start: 07-08-2022 Influenza vaccination [facility] Start: 06-09-2022 End: 08-09-2022 Thyrotropin [Units/volume] in Serum or Plasma TSH BLD Lab Routine Effects of radiation, sequela Expected: 06/09/2022, Expires: 08/09/2022 [facility] Work Phone: Comment on above: Expected: 06/09/2022 , Expires: 08/09/2022 Start: 06-09-2022 End: 08-09-2022 Thyroxine (T4) [Mass/volume] in Serum or Plasma T4/THYROXINE BLOOD Lab Routine Effects of radiation, sequela Expected: 06/09/2022, Expires: 08/09/2022 [facility] Work Phone: Comment on above: Expected: 06/09/2022 , Expires: 08/09/2022 Start: 2021 ADVANCE DIRECTIVE DISCUSSION ADVANCE DIRECTIVE DISCUSSION [facility] Start: 2021 PNEUMOVAX AGE 65 AND OVER WITH 5YR LOOKBACK (#1) PNEUMOVAX AGE 65 AND OVER WITH 5YR LOOKBACK (#1) [facility] Start: 07-08-2021 Influenza vaccination INFLUENZA (#1) [facility] Start: 2016 HEPATITIS B (1 of 3 - Risk 3-dose series) HEPATITIS B (1 of 3 - Risk 3-dose series) [facility] Start: 2016 Hepatitis B Vaccine (1 of 3 - Risk 3-dose series) Hepatitis B Vaccine (1 of 3 - Risk 3-dose series) [facility] Start: 2016 RSV Vaccine (1 - 1-d ose 60+ series) RSV Vaccine (1 - 1-dose 60+ series) [facility] Start: 2011 PROSTATE CANCER SCREENING DISCUSSION PROSTATE CANCER SCREENING DISCUSSION [facility] Start: 2011 Prostate specific antigen measurement Prostate Cancer Screening Discussion [facility] Start: 2006 SHINGRIX VACCINE (1 of 2) SHINGRIX VACCINE (1 of 2) [facility] Start: 2001 COLOGUARD (FIT-DNA) COLOGUARD (FIT-D NA) [facility] Start: 2001 Colonoscopy COLONOSCOPY [facility] Start: 2001 COLORECTAL CANCER SCREENING COLORECTAL CANCER SCREENING [facility] Start: [address] COLONOGRAPHY [facility] Start: 2001 FECAL OCCULT BLOOD FECAL OCCULT BLOO D [facility] Start: 2001 Screening for malign ant neoplasm of colon [facility] Start: 2001 SIGMOIDOSCOPY SIGMOIDOSCOPY [facility] Start: 1991 Lipid panel Lipid Screening [facility] Start: 1991 LIPID SCREEN LIPID SCREEN [facility] Start: 1975 HEPATITIS B (1 of 3 - Risk 3-dose series) HEPATITIS B (1 of 3 - Risk 3-dose series) [facility] Start: 1975 SHINGRIX VACCINE (1 of 2) SHINGRIX VACCINE (1 of 2) [facility] Start: 1975 Urine microalbumin profile [facility] Start: 1974 HIV SCREENING HIV SCREENING [facility] Start: 1962 Pneumococcal Vaccine : 65+ (1 of 2 - PCV) Pneumococcal Vaccine: 65+ (1 of 2 - PCV) [facility] Start: 1962 PNEUMOCOCCAL: 65+ (1 - PCV) PNEUMOCOCCAL: 65+ (1 - PCV) [facility] Start: 1961 COVID-19 VACCINE (#1) COVID-19 VACCI NE (#1) [facility] Start: 1961 COVID-19 VACCINE (1) COVID-19 VACCIN E (1) [facility] Start: 05-11-1957 COVID-19 VACCINE (#1) COVID-19 VACCI NE (#1) [facility] Start: 1956 ABDOMINAL AORTIC ANEURYSM SCREENING ABDOMINAL AORTIC ANEURYSM SCREENING [facility] Start: 1956 Abdominal aortic aneurysm screening Abdominal Aortic Aneurysm Screening [facility] End: 01-25-2023 HEPATIC FUNCTION PNL HEPATIC FUNCTION PNL Lab Routine Hepatitis C antibody positive in blood Every 3 weeks for 2 Occurrences starting 01/26/2022 until 01/25/2023 [facility] Work Phone: Comment on above: Every 3 weeks for 2 Occurrences starting 01/26/2022 until 01/25/2023 End: 01-25-2023 Hepatitis C virus RNA [Units/volume] (viral load) in Serum or Plasma by PAULA with probe detection HCV QUANT RNA BY PCR Lab Routine Hepatitis C antibody positive in blood Every 3 weeks for 2 Occurrences starting 01/26/2022 until 01/25/2023 [facility] Work Phone: Comment on above: Every 3 weeks for 2 Occurrences starting 01/26/2022 until 01/25/2023 Thyrotropin [Units/volume] in Serum or Plasma TSH BLD Lab Routine Effects of radiation, sequela 06/17/2022 10:58 AM EDT [facility] Work Phone: Thyroxine (T4) [Mass/volume] in Serum or Plasma T4/THYROXINE BLOOD Lab Routine Effects of radiation, sequela 06/17/2022 10:58 AM EDT [facility] Work Phone: [facility] Immunizations Immunization Date Immunization Notes Care Provider Fa cility NEGATED: Highlighted row has not occurred!02-19-2021 influenza virus vaccine, unspecified formulation Sushil Edgar Jr. [facility] Payers Date Payer Category Payer Unknown [id number] 2022 Private Health Insurance [id number] 2022 Medicare [id number] 2022 Medicare AETNA MEDICARE A ETNA MEDICARE ASSURE HMO D SNP [id number] 2022-Present [phone] [address] [place] [address] Medicare [id number] 2021 Medicaid MEDICAID [facility] MEDICAID [id number] 2021-Present [phone] [address] [place] [address] Medicaid [id number] 2021 Medicaid MEDICAID [facility] MEDICAID [id number] 2021-Present [phone] [address] [place] [address] Medicaid [id number] 2021 Medicaid [id number] 2018 Private Health Insurance [id number] 2018 Self-pay 1959 Unknown [id number] 1956 Unknown [id number] 1956 Unknown [id number] 1956 Unknown [id number] 1956 Unknown [id number] 1956 Unknown [id number] 1956 Unknown [id number] 1956 Unknown [id number] 27 Unknown [id number] 31 Social History Date Type Detail Facility Start: 10-13-2020 End: 06-17-2022 Tobacco smoking status UTIS Smokes tobacco daily [facility] End: 03-04-2018 History of tobacco use Cigarette Smoker [facility] Start: 10-13-2020 End: 12-19-2023 Cigarettes smoked current (pack per day) - Reported 1 [facility] Start: 10-13-2020 End: 06-17-2022 Tobacco use and exposure User of smokeless tobacco [facility] Start: 12-17-2021 End: 12-19-2023 Alcohol intake Current drinker of alcohol (finding) [facility] Start: 10-13-2020 History SDOH Alcohol Comment socially [facility] Start: 01-09-2018 End: 06-17-2022 Tobacco Comment started 1971 [facility] Start: 1955 Sex Assigned At Not on file [facility] Start: 01-10-2022 End: 01-20-2022 Exposure to SARS-CoV-2 (event) Unable to assess [facility] Start: 04-06-2022 Tobacco smoking status Light t obacco smoker (finding) [facility] Start: 12-17-2021 End: 12-19-2023 Sex Assigned At Male [facility] Start: 06-07-2022 End: 06-17-2022 Exposure to SARS-CoV-2 (event) Not sure [facility] Adult Depression Screening Assessment 0 [facility] Clinical Notes 01-28-2022 to 12-19-2023 Telephone Encounter - Zeny Tom RN - 12/19/2023 12:17 PM ESTTelephone Encounter - Zeny Tom RN - 12/19/2023 12:17 PM ESTPatient InstructionsAbWyatt rogers MD - 12/19/2023 10:30 AM EST Note Date & Type Note Facility 12-19-2023 Note HNO ID: [id number] Author: WYATT GARZA MD Service: ? Author Type: Physician Type: Progress Notes Filed: 12/19/2023 21:13 Note Text: NAME: Adelfo Nolan CLINIC NO.: [id number] DATE OF SERVICE: December 19, 2023 (Mirian) [...] plus radiation followin (more content not included)... [facility] 12-19-2023 Miscellaneous Notes Pt informed of Frankie's message and denies any questions, needs or concerns at this time.(Pt had appt today with Frankie and discussed) Appointments verified. Zeny Tom RN ----- Message from Wyatt Garza MD sent at 12/17/2023 8:59 AM EST ----- Scans are stable - I will discuss at his appointment. documented in this encounter [facility] 12-19-2023 Instructions Svetlana Rdz - 12/19/2023 10:[address] Chest in 6 weeks RTC 1 week after to review If CT Chest clear then pursue routine annual visits documented in this encounter [facility] 12-19-2023 History of Presen t illness Narrative Images from the original note were not included. NAME: Adelfo Nolan CLINIC NO.: [id number] DATE OF SERVICE: December 19, 2023 ([facility]) Some elements in this clinic note that [...] organ systems. 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 Updated Visit, June 19, 2020: [...] which included preparing to see the patient, urwi-dn-mjpd patient care, completing clinical documentation, performing a medically appropriate examination, counseling and educating the patient/family/caregiver, ordering medications, tests, or procedures, independently interpreting results (not separately reported), communicating results to the patient/family/caregiver, and care coordination (not separately reported). Wyatt Garza MD, CPE Hematology and Oncology Services Provided at: [facility], [place], [place] Scribe Attestation: This note was scribed [...] my direction. CC: Elba Crouch MD [address] [facility] [address] Nat Quintero MD documented in this encounter [facility] 12-16-2023 Note HNO ID: [id number] Author: ROXANN MCKEON RN Service: ? Author [...] DATE: December 16, 2023 TIME: 10:05 AM [facility] 12-16-2023 Note HNO ID: [id number] Author: SONJA MELGAR, RT(R) Service: ? Author [...] Melgar RT(R) December 16, 2023 10:54 AM [facility] 12-28-2022 Note PROCEDURE: XR ANKLE RT MIN [...] by: EDMOND BROOKS Date: 2022-12-28 07:42 [facility] 12-16-2022 Instructions Wyatt Garza MD - 12/16/2022 11:[address] Neck Chest in 12 months labs same day Labs in 1 year with scans include CBC, CMP RTC in 12 months with me to review Patient to continue follow up with Dr. Leon RAWLS documented in this encounter [facility] 12-16-2022 History of Presen t illness Narrative Images from the original note were not included. NAME: Adelfo Nolan CLINIC NO.: [id number] DATE OF SERVICE: December 17, 2021 Some [...] organ systems. 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 Wyatt Garza MD, CPE [place], [place] CC: Wyatt Garza MD [address] [place] [address] [place] [address] Elba Crouch MD [address] [facility] [address] Nat Quintero MD documented in this encounter [facility] 07-16-2022 History of Presen t illness Narrative Medication(s): Epclusa Total duration of treatment: 12 weeks Estimated Start Date: 01/23 Estimated Completion Date: 04/17 Estimated SVR 07/10/22 Due for SVR12 lab at this time. Bhavya Cohen RPh Clinical Pharmacist, Hepatology and Biologics [facility] P: ; F: Pool: P CC SPEC GROUP 2 ([id number]) documented in this encounter [facility] 06-17-2022 History of Presen t illness Narrative [...] Moiz Atkins MD cc: Elba Crouch MD [address] [place] [address] Dr. Pulliam documented in this encounter [facility] 06-09-2022 Miscellaneous Notes Please sign pended labs for upcoming visit. Tory Self RN documented in this encounter [facility] 04-15-2022 History of Presen t illness Narrative [facility] Visit Assessment - Hepatology: Ivent [...] provider regarding future tests. Ruddy Gaffney CPhT [facility] documented in this encounter [facility] 04-06-2022 Hospital Discharg e instructions Patient Education [...] Follow these instructions at home: Medicines Take pqlv-ehg-ozfitui and prescription medicines only as told by [...] or the blood stops without treatment. Take ysoi-qgv-rjaoxad and prescription medicines only as told by your health care provider. Drink enough fluid to keep your urine clear or pale yellow. This information is not intended to replace advice given to you by your health care provider. Make sure you discuss any questions you have with your health care provider. Document Released: 10/24/2006 Document Revised: 03/19/2020 Document Reviewed: 11/26/2017 [employer] Patient Education 2019 [employer] Follow Up Care 08/27/2021 11:36:33 With:Herve Flores MD, Sushil De Leon [facility] Address: [facility] [address] [place] [address]- When:04/06/2023 Comments:w/psa [facility] 03-22-2022 Miscellaneous Notes Pt aware of results and to get blood work repeated in 3 months. ----- Message from Nat Quintero MD sent at 03/19/2022 3:58 PM EDT ----- Liver enzymes are stable Didn't improve that much The HCV RNA Is negative consistent with viral response Repeat LFTs and HCV RNA in 3 months documented in this encounter [facility] 03-11-2022 History of Presen t illness Narrative [...] Will proceed with refill with no changes. [facility] Visit Assessment - Hepatology: Is pre-assessment?: No Is initial or refill assessment?: Yes Assessment to use: Refill Non-Clinical Assessment: Patient confirmed: Yes Med/dose confirmed: Yes Supplies needed: N/A Missed doses: No Estimated days supply on hand: 10 Next cycle/dose due: 03/12/2022 Copay amount: 0 Payment confirmed: Yes Address confirmed: Yes Delivery method: [employer] Delivery address: [address] [place] [id number] Delivery date: 03/15/2022 Patient has questions: No [...] if on ribavirin: N/A Ruddy Gaffney CPhT Marine Biologist, Inflammatory & Neurology [facility] documented in this encounter [facility] 02-11-2022 History of Presen t illness Narrative [...] Cohen RPh Clinical Pharmacist, Hepatology and Biologics [facility] P: ; F: Pool: P CC SPEC GROUP 2 ([id number]) Therapy continues to be appropriate for disease, patient response, and medical condition. Verification of therapeutic benefit and effectiveness with current therapy. Adverse events, barriers in adherence, and side effects assessed and addressed. Will proceed with refill with no changes. [facility] Visit Assessment - Hepatology: Is pre-assessment?: No Is initial or refill assessment?: Yes Assessment to use: Refill Non-Clinical Assessment: Patient confirmed: Yes Med/dose confirmed: Yes Supplies needed: N/A Missed doses: No Estimated days supply on hand: 8 Next cycle/dose due: 02/12/2022 Copay amount: 0 Payment confirmed: Yes Address confirmed: Yes Delivery method: [employer] Delivery address: [address] [place] [address] Delivery date: 02/15/2022 Patient has questions: No Refill Assessment: Concurrent med therapy screening: Yes Adverse reactions and mitigation: Yes Hepatitis C RNA level at 12 weeks after end of therapy with additional testing as clinically indicated: Yes Hepatic function panel, eGFR: Yes CBC after 2 weeks if on ribavirin: N/A Ruddy Gaffney documented in this encounter [facility] 01-28-2022 Miscellaneous Notes Spoke with pt. Advised to get blood work in 3 weeks. Images from the original note were not included. Pended standing blood work while on Epclusa NOLAN Trihn MD Cindi O'Neill, RN Previous Messages ----- Message ----- From: [facility] Sent: 01/20/2022 3:00 PM EDT To: Nat Quintero MD FY - Pt is scheduled to receive shipment of Epclusa on 01/22 and will start 01/23. Patient informed to contact office to schedule pertinent labs while on treatment. Full details on cost and medication counseling in this encounter. Bhavya Hi documented in this encounter [facility] Evaluation + Plan note Future Appointments Appointment Date:04/12/2023 08:00:00 AM Scheduled Provider:Sushil Edgar Jr., MD Location:[facility] Appointment Type:URO Office Visit Diagnostic Tests PendingPSA Total 04/06/22 [facility] Evaluation note Diagnosis Hepatitis C antibody positive in blood- [facility] Chronic hepatitis C without hepatic coma (HCC)- Primary Chronic hepatitis C without mention of hepatic coma [facility] Diagnosis Effects of radiation, sequela- [facility] Diagnosis Effects of radiation, sequela- Primary Head and neck cancer (HCC) Malignant neoplasm of head, face, and neck [facility] Diagnosis Chronic hepatitis C with hepatic coma (HCC)- Primary Chronic hepatitis C with hepatic coma [facility] Diagnosis Malignant neoplasm of head, 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, face, and neck Lung nodules Other nonspecific abnormal finding of lung field Disorder of thyroid Unspecified disorder of thyroid [facility] Diagnosis Localized enlarged lymph nodes- Primary Enlargement of lymph nodes Severe protein-calorie malnutrition (HCC) Other severe protein-calorie malnutrition Malignant neoplasm of head, 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, face, and neck History of head and neck cancer documented in this encounter [facility] course Narrative No data available for this section [facility] Jose Summary Purpose Family History No [...] COMPUTED TOMOGRAPHY THORAX W/CONTRAST Wyatt Garza MD [address] [place] [address] [place] [address] [place] [address] Referral ID Status Reason Start Date Expiration Date Visits Requested Visits Authorized [id number] Authorized Auto-Generat ed Referral 12/19/2023 01/17/2025 1 1 Specialty Diagnoses / Procedures Referred By Contac t Referred To Contact CT IMAGING Diagnoses Lung nodules Procedures CT NECK SOFT TISSUE W IVCON CT SOFT TISSUE NECK W/CONTRAST MATERIAL Wyatt Garza MD [address] [place] [address] [place] [address] Ct Imaging Referral ID Status Reason Start Date Expiration Date Visits Requested Visits Authorized [id number] Authorized Auto-Generat ed Referral 12/16/2023 01/15/2024 1 1 Specialty Diagnoses / Procedures Referred By Contac t Referred To Contact CT IMAGING Diagnoses Lung nodules Procedures CT CHEST W IVCON DIAGNOSTIC COMPUTED TOMOGRAPHY THORAX W/CONTRAST Wyatt Garza MD [address] [place] [address] [place] [address] Ct Imaging Referral ID Status Reason Start Date Expiration Date Visits Requested Visits Authorized [id number] Authorized Auto-Generat ed Referral 12/16/2023 01/15/2024 1 1 Specialty Diagnoses / Procedures Referred By Contac t Referred To Contact CT IMAGING Diagnoses Effects of radiation, sequela Head and neck cancer (HCC) Procedures CT CHEST WO IVCON DIAGNOSTIC COMPUTED TOMOGRAPHY THORAX W/O CNTRST Engeler, G Dragan, MD [address] [place] [address] [place] [address] Ct Imaging Referral ID Status Reason Start Date Expiration Date Visits Requested Visits Authorized [id number] Pending Review Auto-Generat ed Referral 12/18/2022 07/17/2023 1 1 Additional Source Comments (unrecognized sect ion and content) No Status Records FoundNo Status Records FoundNo Status Records FoundNo Status Records Found INFORMATION SOURCE (unrecogn ized section and content) DATE CREATED AUTHOR 03/20/2019 [facility] DATE CREATED AUTHOR AUTHOR'S ORGANIZ ATION 03/07/2023 [facility] DATE CREATED AUTHOR AUTHOR'S ORGANIZ ATION 03/17/2023 [facility] DATE CREATED AUTHOR AUTHOR'S ORGANIZ ATION 12/20/2023 [facility] Source Comments (unrecognize d section and content) In the event this informatio n is protected by the Federal Confidentiality of Alcohol and Drug Abuse Patient Records regulations: The Federal rules restrict any use of the information to criminally investigate or prosecute any alcohol or drug abuse patient.[facility] the event this information is protected by the Federal Confidentiality of Alcohol and Drug Abuse Patient Records regulations: The Federal rules restrict any use of the information to criminally investigate or prosecute any alcohol or drug abuse patient.[facility] the event this information is protected by the Federal Confidentiality of Alcohol and Drug Abuse Patient Records regulations: The Federal rules restrict any use of the information to criminally investigate or prosecute any alcohol or drug abuse patient.[facility] the event this information is protected by the Federal Confidentiality of Alcohol and Drug Abuse Patient Records regulations: The Federal rules restrict any use of the information to criminally investigate or prosecute any alcohol or drug abuse patient.[facility] the event this information is protected by the Federal Confidentiality of Alcohol and Drug Abuse Patient Records regulations: The Federal rules restrict any use of the information to criminally investigate or prosecute any alcohol or drug abuse patient.[facility] the event this information is protected by the Federal Confidentiality of Alcohol and Drug Abuse Patient Records regulations: The Federal rules restrict any use of the information to criminally investigate or prosecute any alcohol or drug abuse patient.[facility] the event this information is protected by the Federal Confidentiality of Alcohol and Drug Abuse Patient Records regulations: The Federal rules restrict any use of the information to criminally investigate or prosecute any alcohol or drug abuse patient.[facility] the event this information is protected by the Federal Confidentiality of Alcohol and Drug Abuse Patient Records regulations: The Federal rules restrict any use of the information to criminally investigate or prosecute any alcohol or drug abuse patient.[facility] the event this information is protected by the Federal Confidentiality of Alcohol and Drug Abuse Patient Records regulations: The Federal rules restrict any use of the information to criminally investigate or prosecute any alcohol or drug abuse patient.[facility] the event this information is protected by the Federal Confidentiality of Alcohol and Drug Abuse Patient Records regulations: The Federal rules restrict any use of the information to criminally investigate or prosecute any alcohol or drug abuse patient.[facility] the event this information is protected by the Federal Confidentiality of Alcohol and Drug Abuse Patient Records regulations: The Federal rules restrict any use of the information to criminally investigate or prosecute any alcohol or drug abuse patient.[facility] the event this information is protected by the Federal Confidentiality of Alcohol and Drug Abuse Patient Records regulations: The Federal rules restrict any use of the information to criminally investigate or prosecute any alcohol or drug abuse patient.[facility] Reason for Visit (unrecogniz ed section and [...] 40-54 MIN EST PATIENT Wyatt Garza MD [address] [place] [address] [place] [address] Wyatt Garza MD [address] [place] [address] [place] [address] Referral ID Status Reason Start Date Expiration Date Visits Re quested Visits Authorized [id number] Closed 12/08/2022 03/16/2023 1 1 Reason Comments Head and Neck Cancer 1 year follow up Care Teams (unrecognized sec tion and content) Low Pressure Kettle Operator Relationship Specialty Start Date End Date Elba Crouch MD [address] [id number] PCP - General Family Practice 01/04/18 Low Pressure Kettle Operator Relationship Specialty Start Date End Date Elba Crouch MD [address] [id number] PCP - General Family Practice 01/04/18 Low Pressure Kettle Operator Relationship Specialty Start Date End Date Elba Crouch MD [address] [id number] PCP - General Family Practice 01/04/18 Low Pressure Kettle Operator Relationship Specialty Start Date End Date Elba Crouch MD [address] [id number] PCP - General Family Practice 01/04/18 Low Pressure Kettle Operator Relationship Specialty Start Date End Date Elba Crouch MD [address] [id number] PCP - General Family Medicine 01/04/18 Low Pressure Kettle Operator Relationship Specialty Start Date End Date Elba Crouch MD [address] [id number] PCP - General Family Medicine 01/04/18 Low Pressure Kettle Operator Relationship Specialty Start Date End Date Elba Crouch MD PCP - General Family Medicine 01/04/18 Low Pressure Kettle Operator Relationship Specialty Start Date End Date Elba [...] BE BASED ON THE PRIMARY CLINICAL RECORDS. [facility] [employer] [facility]. provides no warranty or guarantee of the accuracy or completeness of information in this document.
== END 2024-02-24 16:54 | disposition left against medical advice (07) ==
PROVIDERS: Emergency Provider Emergency Medicine; PCP Family Medicine
DX: T50.901A Poisoning by unspecified drugs, medicaments and biological substances, accidental (unintentional), initial encounter (principal); F17.210 Nicotine dependence, cigarettes, uncomplicated; C14.0 Malignant neoplasm of pharynx, unspecified; C02.9 Malignant neoplasm of tongue, unspecified; F10.10 Alcohol abuse, uncomplicated; F11.10 Opioid abuse, uncomplicated; Z79.899 Other long term (current) drug therapy
CPT/HCPCS: 99283

== ENCOUNTER 2025-08-12 11:25 | Outpatient (OUT) | payer MEDICARE, MEDICAID, SELFPAY ==
--- OUTSIDE RECORDS SUMMARY | 2025-08-12 05:32 | XMS_ITS ---
Author Organization [facility] [place] Address [address] [place] [address] Care Team Providers Care Public Health Specialist Name Role Phone Maldonado Crouch Primary Care Provider REASON FOR VISIT mold Encounters Encounter Location Date Provider Diagnosis [facility] [address] [facility] [place] [address] 08/12/2025 Maldonado Crouch Mold exposure Z77.1 20 Assessments Encounter Date Diagnosis (ICD Code) Assessment Notes Treatment Notes Treatment Clinical Notes Section Notes 08/12/2025 Mold exposure (ICD-10 - Z77.120) Plan Of Treatment Pending Test Test Name Order Date CULTURE SPUTUM 08/12/2025 Blood Culture 2 08/12/2025 XR CHEST (2 VW) 08/12/2025 Progress Notes * Carson NOLANDOB:[birth year] (69 yo M)Acc No.[id number]:08/12/2025 Patient: Dominguez Carson ZAMUDIO :1955 A ge:69 Y S ex:Male Address:[address] [place], [address] Subjective: * Chief Complaints: * M old * Medical History: * Surgical History: * Hospitalization/Major Diagno stic Procedure: * Medications: Objective: * Vitals: * Physical Examination: Assessment: * Assessment: 1. M old exposure - Z77.120 (Primary) Plan: * Treatment: * Procedure Codes: * true * Date: Generated for Printi ng/Faxing/eTransmitting on: 1 11:29 AM EDT
--- OUTSIDE RECORDS SUMMARY | 2025-08-12 11:29 | XMS_ITS | Patient Health Record ---
Author Organization [facility] in [place] Address [address] [place] [address] Care Team Providers Care Bead Trimmer Name Role Phone Maldonado Crouch Primary Care Provider Allergies No Known Allergies Reason For Referral No Information Medications Medication SIG (Take, Route, Fr equency, Duration) Notes Start Date End Date Status levoFLOXacin 750 MG 1 tablet Orally Once a day; Duration: 10 day(s) 07/17/2025 Active predniSONE 10 MG 5 tabs per day for 3 days, 4 tabs per day for 3 ays, 3 tabs perday for 3 days, 2 tabs per day for 3 days, 1 tab a day for 3 days, 1/2 tab a day for 4 days Orally Once a day; Duration: 19 days 07/23/2025 Active Tamsulosin HCl 0.4 MG TAKE 2 CAPSULES BY MOUTH DAILY; Duration: 30 Active Viagra 100 MG 1 tablet as needed O rally Once a day; Duration: 30 day(s) 06/18/2025 Activ e predniSONE 20 MG 3 tablets Orally Onc e a day; Duration: 5 days 07/17/2025 Active Social History Tobacco Use: Social History Observation Description Date Details (start date - stop date) Current Smoker 11/07/1966 - NA Tobacco Use/Smoking Question Answer Notes Patient is a current smoker When did you start smoking? 11/07/1966 How often do you smoke cigarettes? every day How many cigarettes a day do you smoke? 5 or les s How soon after you wake up d o you smoke your first cigarette? 6-30 minutes Are you interested in quitting? Thinking about q uitting Alcohol Screen (Audit-C) Question Answer Notes Did you have a drink contain ing alcohol in the past year? Yes How often did you have 6 or more drinks on one occasion in the past year? Four or more times a week (4 points) How many drinks did you have on a typical day when you were drinking in the past year? 5 or 6 drinks (2 points) How often did you have a dri nk containing alcohol in the past year? Daily or almost daily (4 points) Points 10 Interpretation Positive AUDIT-C (Standard) Question Answer Notes Did you have a drink contain ing alcohol in the past year? Yes How often did you have six o r more drinks on one occasion in the past year? Never (0 point) How many drinks did you have on a typical day when you were drinking in the past year? 1 or 2 drinks (0 point) How often did you have a dri nk containing alcohol in the past year? 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 Problem Arthropathy associated with a neurological disorder (89315263) Charcot's joint, 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) Active confirmed Problem Arthropathy associated with a neurological disorder (36603784) Charcot's joint, left ankle and foot (M14.672) Active confirmed Problem Dysphagia (10838966) Dysphagia, unspecified (R13.10) Active confirmed Problem Solitary pulmonary nodule (115925191) Solitary pulmonary nodule (R91.1) Active confirmed Problem Closed fracture of lateral malleolus (88851125) Displaced fracture of lateral malleolus of right fibula, initial encounter for closed fracture (S82.61XA) Active confirmed Problem 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) Nondisplaced fracture of lateral malleolus of right fibula, subsequent encounter for closed fracture with nonunion (S82.64XK) Active confirmed Problem Closed fracture of upper end of fibula (69050605) Other fracture of upper and lower end of right fibula, initial encounter for closed fracture (S82.831A) Active confirmed Problem Closed fracture of ankle (51373819) Other fracture of unspecified lower leg, initial encounter for closed fracture (S82.899A) Active confirmed Problem COPD - Chronic obstructive pulmonary disease (45750407) COPD (chronic obstructive pulmonary disease) (J44.9) Active confirmed Problem Alcohol abuse (09218931) Alcohol abuse (F10.10) Active confirmed Problem Diarrhea (02513480) Diarrhea (R19.7) Active confirmed Problem Dysphagia (99290625) Dysphagia (R13.10) Active confirmed Problem Pancytopenia (874234133) Pancytopenia (D61.818) Active confirmed Problem Alcoholism (1667343) Alcoholism (F10.20) Active confirmed Problem Recurrent falls (933787919) Frequent falls (R29.6) Active confirmed Problem Unsteady gait (59865697) Unsteady gait (R26.81) Active confirmed Problem Erectile dysfunction (disorder) (594286387) Impotence (N52.9) Active confirmed Problem Opioid abuse (8465187) Narcotic abuse (F11.10) Active confirmed Problem Leukopenia (15761696) Leukopenia (D72.819) Active confirmed Problem Benign prostatic hyperplasia (000157225) Prostate hypertrophy (N40.0) Active confirmed Problem Ankle fracture (41509621) Ankle fracture (S82.899A) Active confirmed Problem Leukocytosis (638892370) Elevated WBCs (D72.829) Active confirmed Problem Facial fracture (S02.92XA) Active confirmed Problem Malnutrition, calorie (136983169) Caloric malnutrition (E46) Active confirmed Problem Closed fracture of malar AND/OR maxillary bones (33798692) Maxillary fracture, unspecified side, initial encounter for closed fracture (S02.401A) Active confirmed Problem Closed fracture of distal right fibula (disorder) (2274535197653523 6) Closed fracture of distal end of right fibula with routine healing, unspecified fracture morphology, subsequent encounter (S82.831D) Active confirmed Vital Signs Temperature 97.6 degrees Fahrenheit 07/17/2025 Blood pressure diastolic 90 mm Hg 07/17/2025 Height 65 in 07/17/2025 Blood pressure systolic 134 mm Hg 07/17/2025 Weight 157.8 lbs 07/17/2025 BMI 26.26 kg/m2 07/17/2025 Encounters Encounter Location Date Provider Diagnosis [address] [address] 03/07/2025 Maldonado Hoy Secondary malignant neoplasm of other specified sites C79.89 ; Narcotic abuse F11.10 and Pancytopenia D61.[address] [address] 06/18/2025 Maldonado Hoy Impotence N52.9 ; Pancytopenia D61.818 ; Unsteady gait R26.81 ; Leukopenia D72.819 and Prostate hypertrophy N40.[address] [address] 07/17/2025 Maldonado Hoy COPD (chronic obstructive pulmonary disease) J44.[address] [address] 11/12/2024 Maldonado Hoy [address] [address] 06/18/2025 Maldonado Gordyy [address] [address] 07/02/2025 Maldonado Hoy [address] [place] [address] 07/23/2025 Maldonado Kaminskiy [address] [address] 08/12/2025 Maldonado Hoy Mold exposure Z77.[address] [address] 04/29/2025 Maldonado Hoy Secondary malignant neoplasm of other specified sites C79.89 and Chronic viral hepatitis C B18.2 Assessments Encounter Date Diagnosis (ICD Code) Assessment Notes Treatment Notes Treatment Clinical Notes Section Notes 04/29/2025 Secondary malignant neoplasm of other specified sites (ICD-10 - C79.89) seeing Dr Pulliam - ENT ANd Dr Encinas for oncology and panchito for radiation 04/29/2025 Chronic viral hepatitis C (ICD-10 - B18.2) 06/18/2025 Impotence (ICD-10 - N52.9) 06/18/2025 Pancytopenia (ICD-10 - D61.818) 06/18/2025 Unsteady gait (ICD-10 - R26.81) 06/18/2025 Leukopenia (ICD-10 - D72.819) 06/18/2025 Prostate hypertrophy (ICD-10 - N40.0) 07/17/2025 COPD (chronic obstructive pulmonary disease) (ICD-10 - J44.9) 08/12/2025 Mold exposure (ICD-10 - Z77.120) 03/07/2025 Secondary malignant neoplasm of other specified sites (ICD-10 - C79.89) Sqyuamous cell cancer 03/07/2025 Narcotic abuse (ICD-10 - F11.10) clean now 03/07/2025 Pancytopenia (ICD-10 - D61.818) likely due to chemo and etoh Plan Of Treatment Pending Test Test Name Order Date CMP (COMPLETE METABOLIC PANEL) 3 HEMOGLOBIN A1C (GLYCO) 08/16/2023 HEMOGLOBIN A1C (GLYCO) 03/07/2025 HEMOGLOBIN A1C (GLYCO) 06/18/2025 LIPID PANEL (CHOL/TRIG/HDL/LDL) 03/07/20 25 LIPID PANEL (CHOL/TRIG/HDL/LDL) 08/16/20 23 LIPID PANEL (CHOL/TRIG/HDL/LDL) 06/18/20 25 CBC WITH DIFF 08/16/2023 PSA, PROSTATE-SPECIFIC ANTIGEN 3 STOOL OCCULT BLOOD 08/16/2023 STOOL OCCULT BLOOD 06/18/2025 CULTURE SPUTUM 08/12/2025 THYROID PANEL (T4/TSH/FREE T3) 5 THYROID PANEL (T4/TSH/FREE T3) 5 THYROID PANEL (T4/TSH/FREE T3) 3 Blood Culture 2 08/12/2025 PSA, SCREENING 06/18/2025 PSA, SCREENING 03/07/2025 XR CHEST (2 VW) 08/12/2025 CMP (COMP MET MACKAY) w/eGFR CKD-EPI 2024 CMP (COMP MET MACKAY) w/eGFR CKD-EPI 2024 CBC WITH DIFF 03/07/2025 CBC WITH DIFF 06/18/2025 Insurance Providers Payer Name Payer Address Payer Phone Subscriber Number Group Number Insured Name Patient Relationship to Insured Coverage Start Date Coverage End Date ANTH MEDICARE ADV PLAN [address] [place] [address] [id number] [facility] Morse Self - patient is the insured 3 MEDICAID [place] 2ND INS [address] [place], [place] [id number] Carson Morse Self - patient is the insured 3 Medical (General) History Medical History History ICD Code Closed fracture of distal en d of fibula, unspecified fracture morphology, unspecified laterality, initial encounter S82.839A fracture right maxillary sinus Alcohol abuse Frequent falls Leukopenia malnutrition Other fracture of upper and lower end of right fibula, subsequent encounter for closed fracture with routine healing S82.831D Maxillary fracture, right si de, subsequent encounter for fracture with routine healing S02.40CD History of tongue cancer Z85.810 Dysphagia Surgical History Surgery Date(Month/Year) Feeding tube placement at one time Hospitalization History Reason Date(Month/Year) Broken Right Ankle 07/2023 Falls 07/06/23
--- OUTSIDE RECORDS SUMMARY | 2025-08-12 11:29 | XMS_ITS | Encounter Summary ---
Author Organization [facility] Address [address] [place] [address] Care Team Providers Care Special Forces Weapons Sergeant Name Role Phone Bird Crouch MD Primary Care Provider [phone] Encounter Details Date Type Department Care Team (Late st Contact Info) Description 07/12/2024 [facility] [address] [facility] [place] [address] Andreina Welch, [facility] [address] [place] [address] Social History Tobacco Use Types Packs/Day Years Used Date Smoking Tobacco: Every Day Cigarettes 0.5 53.8 Started: 1970 Smokeless Tobacco: Never Comments:Smokes 6-10 cigaret yoko/day Alcohol Use Standard Drinks/Week Comments Not Currently 0 (1 standard drink = 0.6 oz pur e alcohol) Caffeine >4 cups/day Sex and Gender Information Value Date Recorded Sex Assigned at Not on file Legal Sex Male 8:14 PM EDT Gender Identity Not on file Sexual Orientation Not on file documented as of this encounter Plan of Treatment Not on file documented as of this encounter Visit Diagnoses Not on filedocumented in this encounter Care Teams Special Forces Weapons Sergeant Relationship Specialty Start Date End Date Bird Crouch MD PCP - General Family Medicine 03/15/23 documented as of this encounter
--- OUTSIDE RECORDS SUMMARY | 2025-08-12 11:29 | XMS_ITS | Encounter Summary ---
Author Organization [facility] Address [address] [place] [address] Care Team Providers Care Stem Sizer Name Role Phone Bird Crouch MD Primary Care Provider [phone] Encounter Details Date Type Department Care Team (Late st Contact Info) Description 03/28/2023 [facility] [address] [place] [address] Kelly Pulliam MD [address] [facility] [address] [place] [address] Social History Tobacco Use Types Packs/Day Years Used Date Smoking Tobacco: Every Day Cigarettes 0.5 53.8 Started: 1970 Smokeless Tobacco: Never Tobacco Cessation:Ready to Q uit: Not Asked; Counseling Given: Not Answered Comments:Smokes 6-10 cigarettes/day Alcohol Use Standard Drinks/Week Comments Not Currently [...] on filedocumented in this encounter Care Teams Stem Sizer Relationship Specialty Start Date End Date Bird Crouch MD PCP - General Family Medicine 03/15/23 documented as of this encounter
--- OUTSIDE RECORDS SUMMARY | 2025-08-12 11:29 | XMS_ITS | Encounter Summary ---
Author Organization [facility] Address [address] [place] [address] Care Team Providers Care Cable Engineer Outside Plant Name Role Phone Bird Crouch MD Primary Care Provider [phone] Encounter Details Date Type Department Care Team (Late st Contact Info) Description 07/14/2023 [facility] [address] [facility] [address] [place] [address] Leticia Taylor, NOLAN [address] [facility] [address] [place], [place] [id number] Social History Tobacco Use Types Packs/Day Years [...] on filedocumented in this encounter Care Teams Cable Engineer Outside Plant Relationship Specialty Start Date End Date Bird Crouch MD PCP - General Family Medicine 03/15/23 documented as of this encounter
--- OUTSIDE RECORDS SUMMARY | 2025-08-12 11:29 | XMS_ITS | Clinical Summary ---
Author Organization [facility] Healthcare Address [address] [place] [address] Care Team Providers Care Art Therapy Specialist Name Role Phone Bird Crouch MD Primary Care Provider [phone] Allergies No known active allergies Medications Pediatric Multivitamins-F l (MultiVitamin + Fluoride) 0.25 MG chewable tablet Multivitamin A ctive calcium carbonate 1250 MG/5ML Take 1,250 mg by mouth in the morning and 1,250 mg at noon and 1,250 mg in the evening. Take with meals. Active Lactobacillus (FLORANEX PO) Floranex Active potassium chloride CR (KLOR-CON) 20 MEQ ER tablet Take 20 mEq by mouth in the morning and 20 mEq before bedtime. Active magnesium oxide (Mag-Ox) 400 mg tablet Take 400 mg by mouth in the morning. Active nicotine (Nicoderm, Step 1) 21 MG/24HR patch Place 1 patch on the skin 1 (one) time each day at the same time. Active omeprazole (PriLOSEC) [address] capsule Take 40 mg by mouth in the morning. Take before meals. Active thiamine (Vitamin B-1) 100 MG tablet Take 100 mg by mouth in the morning. Active cefdinir (Omnicef) 300 MG capsule Take 300 mg by mouth in the morning and 300 mg before bedtime. Active Multiple Vitamin (multivitamin) capsule Take 1 capsule by mouth in the morning. 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 T4a N1 Mo SCCA right tongue base. Radiation completed. 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 Lung nodules 12/18/2020 Malignant neoplasm of head, face and neck 2020 Myelosuppression 03/24/2018 Mucositis due to radiation therapy 02/27/2018 Severe protein-calorie malnutrition (HHS-HCC) Overview (06/21/2023): 17% unintentional weight loss in one month (02/27/18) Signed by: Selam Bullard RDN, Resolved Problems Problem Noted Date Diagnosed Date Resolved Date History of tongue cancer 06/21/2023 Nocturia 06/21/2023 06/21/2023 Family History Medical History Relation Name Comments Stroke Daughter Diabetes Father Diabetes Mother Stroke Mother Melanoma Neg Hx Relation Name Status Comments Daughter Alive Father Mother Social History Tobacco Use Types Packs/Day Years Used Date Smoking Tobacco: Every Day Cigarettes 0.5 53.8 Started: 1970 Smokeless Tobacco: Never Tobacco Cessation:Ready to Q uit: Not Asked; Counseling Given: Not Answered Comments:Smokes 6-10 cigarettes/day Alcohol Use Standard Drinks/Week Comments Yes 8 (1 standard drink = 0.6 oz pur e alcohol) Caffeine >4 cups/day Sex and Gender Information Value Date Recorded Sex Assigned at Not on file Legal Sex Male 8:14 PM EDT Gender Identity Not on file Sexual Orientation Not on file Last Filed Vital Signs Vital Sign Reading Time Taken Comments Blood Pressure 140/98 07/23/2024 8:53 AM EDT Pulse - - Temperature - - Respiratory Rate - - Oxygen Saturation - - Inhaled Oxygen Concentration - - Weight 64.9 kg (143 lb) 07/23/2024 8:53 AM EDT Height 165.1 cm (5' 5 ) 07/23/2024 8:53 AM EDT Body Mass Index 23.8 07/23/2024 8:53 AM EDT Plan of Treatment Not on file Insurance [place]ICAID [place] MEDICARE ADVANTAGE Care Teams Art Therapy Specialist Relationship Specialty Start Date End Date Bird Crouch MD PCP - General Family Medicine 03/15/23
--- OUTSIDE RECORDS SUMMARY | 2025-08-12 11:29 | XMS_ITS | Clinical Summary ---
Author Organization [facility] Address [address] [place] [address] Care Team Providers Care Coal Hiker Name Role Phone Bird Crouch MD Primary Care Provider [phone] Allergies No known active allergies Medications tamsulosin (FLOMAX) 0.4 mg Take 1 capsule by mouth every afternoon. 11/22/2023 Active levoFLOXacin (LEVAQUIN) 750 mg tablet Take 750 mg by mouth once daily. 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 Hoarse voice quality Family History Medical History Relation Comments Stroke Daughter Diabetes Father Diabetes Mother Stroke Mother Colon Cancer No Family History Relation Status Comments Daughter Father Mother Social History Tobacco Use Types Packs/Day Years Used Date Smoking Tobacco: Every Day Cigarettes 1 45 Started: 03/04/1973; Last attempted to quit: 03/04/2018 Smokeless Tobacco: Current Tobacco Cessation:Ready to Q uit: Not Asked; Counseling Given: Not Answered Comments:started 1971 Alcohol Use Standard Drinks/Week Comments Yes 0 (1 standard drink = 0.6 oz pur e alcohol) socially PHQ-2 Answer Date Recorded PHQ-2 score 0 06/29/2024 Area Deprivation Index Answer Date Jeromy rded National Score (1-100), lower number is lower ri 87 12/19/2023 State Score (1-10), lower number is lower risk 8 12/19/2023 Data from: https://www.neighborhoodatlas.[facility].edu/. Last address used for calculation [address] 12/19/2023 Sex and Gender Information Value Date Recorded Sex Assigned at Not on file Legal Sex Male 11:55 AM EST Gender Identity Not on file Sexual Orientation Not on file Last Filed Vital Signs Vital Sign Reading Time Taken Comments Blood Pressure 187/85 01/21/2025 11:18 AM EDT re check Pulse 77 01/21/2025 11:15 AM EDT Temperature 36.4 C (97.6 F) 01/21/2025 11:15 AM EDT Respiratory Rate 16 01/21/2025 11:15 AM EDT Oxygen Saturation 97% 01/21/2025 11:15 AM EDT Inhaled Oxygen Concentration - - Weight 69.5 kg (153 lb 3.5 oz) 01/21/2025 11:15 AM EDT Height 165.1 cm (5' 5 ) 01/21/2025 11:15 AM EDT Body Mass Index 25.5 01/21/2025 11:15 AM EDT Plan of Treatment Upcoming Encounters Date Type Department Care Team (Latest Contact Info) Description 01/13/2026 7:45 AM EDT Appointment Radiology Pet CT [address] [address] CT CHEST AND NECK 01/20/2026 11:40 AM EDT Visit (SP) Office Hematology/Oncology [address] [place] [address] Wyatt Vela MD [address] [place] [address] [address] FOLLOW UP AFTER CT SCAN Health Maintenance Due Date Last Done Comments Abdominal Aortic Aneurysm Screening 1956 Anxiety Screening 1974 Depression Screening 1974 DTaP,Tdap,Td Vaccine (1 - Tdap) 1975 Pneumococcal Vaccine: 50+ (1 of 2 - PCV) [address] Colonography 2001 Cologuard (FIT-DNA) 2001 Colonoscopy 2001 Colorectal Cancer Screening 2001 Fecal Occult Blood 2001 Prostate Cancer Screening Discussion 2001 Sigmoidoscopy 2001 Shingrix Vaccine (1 of 2) 2006 Advance Directive Discussion 11/07/2024 Medicare Advantage Annual We llness Visit 11/07/2024 Covid-19 Vaccine (1 - 2024-2 6 season) 2025 Influenza Vaccine (#1) 2025 Diabetes Screening 01/11/2028 01/10/2025, 0 06/22/2024, 12/16/2023, Additional history exists RSV Vaccine (1 - 1-dose 75+ series) 2031 Hepatitis C Screening Completed 05/28/2024 , 05/24/2024, 05/22/2024, Additional history exists Procedures Procedure Name Priority Date/Time Associated Diagnosis Comments COMPREHENSIVE METABOLIC PANEL Routine 01/10/2025 2:10 PM EST History of head and neck cancer Lung nodules HEPATITIS C VIRUS (HCV) RNA, QUANTITATIVE PCR, PLASMA/SERUM Routine 05/22/2024 9:58 AM EDT Abnormal LFTs Chronic hepatitis C without hepatic coma (HCC) from Last 3 Months or Most Recently Relevant to Health Maintenance Results * (ABNORMAL) COMPREHENSIVE METABOLIC PANEL (01/10/2025 2:10 PM EST) Protein, Total 6.8 6.3 - 8.0 g/dL 01/10/2025 2:43 PM EST [facility] Albumin 4.4 3.9 - 4.9 g/dL 01/10/2025 2:43 PM EST [facility] Calcium, Total 9.6 8.5 - 10.2 mg/dL 01/10/2025 2:43 PM EST [facility] Bilirubin, Total 0.6 0.2 - 1.3 mg/dL 01/10/2025 2:43 PM EST [facility] Alkaline Phosphatase 79 38 - 113 U/L 01/10/2025 2:43 PM EST [facility] AST 14 14 - 40 U/L 01/10/2025 2:[address] [facility] ALT 8(L) 10 - 54 U/L 01/10/2025 2:[address] [facility] Glucose 100(H) 74 - 99 mg/dL 01/10/2025 2:[address] [facility] Comment: The [place] Diabetes Association (ADA) provides guidance for cutoff [...] Standards of Medical Care in Diabetes 2016, [place] Diabetes Association. Diabetes Care. 2016.39(Suppl 1). BUN 9 9 - 24 mg/dL 01/10/2025 2:[address] [facility] Creatinine 0.68(L) 0.73 - 1.22 mg/dL 01/10/2025 2:[address] [facility] Sodium 138 136 - 144 mmol/L 01/10/2025 2:[address] [facility] Potassium 3.7 3.7 - 5.1 mmol/L 01/10/2025 2:[address] [facility] Chloride 102 98 - 107 mmol/L 01/10/2025 2:[address] [facility] CO2 25 22 - 30 mmol/L 01/10/2025 2:[address] [facility] Anion Gap 11 8 - 15 mmol/L 01/10/2025 2:[address] [facility] Estimated Glomerular Filtration Rate 101 >=60 mL/min/1. 73m 01/10/2025 2:[address] [facility] Comment:Estimated Glomerular Filtration Rate (eGFR) is calculated using the 2020 CKD-EPI creatinine equation. This equation utilizes serum creatinine, sex, and age as parameters. The creatinine assay has traceable calibration to isotope dilution- mass spectrometry. Refer to KDIGO guidelines for clinical interpretation. In patients with unstable renal function, e.g. those with acute kidney injury, the eGFR may not accurately reflect actual GFR. Blood BLOOD SPECIMEN / Unknown Venipuncture / Unknown 01/10/2025 2:10 PM EST 01/10/2025 2:20 PM EST us Wyatt Vela MD LABORATORY Final Result [facility] [address] [place] [id number] * HEPATITIS C RNA QUANTIFICATION BY PCR, PLASMA/SERUM (05/22/2024 9:58 AM EDT) Pathologist [facility] HCV RNA HCV RNA not detected by PCR. HCV RNA not detected by PCR. TOY [facility]SCAR [id number] 05/23/2024 2:59 AM EDT [facility] Blood BLOOD SPECIMEN / Unknown Venipuncture / Unknown 05/22/2024 9:58 AM EDT 05/22/2024 9:58 AM EDT Narrative [facility] - 05/23/2024 2:59 AM EDT The Linear Range of this assay is 15 IU/ml to 100,000,000 IU/ml Nat Quintero MD LABORATORY Final Result [facility] [address] [address], from Last 3 Months or Most Recently Relevant to Health Maintenance Insurance [place]ICAID [place] Member Subscriber Plan / Payer (Ef fective 2021-Present) Name:Carson Morse Relation to Subscriber:Self Name:Carson Morse Payer ID:Not on file Group ID:Not on file Type:Medicaid Address: [address] MEDICARE ADVANTAGE HMO Care Teams Coal Hiker Relationship Specialty Start Date End Date Bird Crouch MD PCP - General Family Medicine 01/04/18
--- OUTSIDE RECORDS SUMMARY | 2025-08-12 11:33 | XMS_ITS | CCD ---
Author Organization [facility] CliniSy[facility] Care Team Providers [facility] Name Role Phone Elba De La Cruz Primary Care Unavailable Jen Qureshi Admitting Unavailable Jen Qureshi Attending Unavailable Elba De La Cruz MD Primary Care Provider Elba De La Cruz Primary Care Physician Elba De La Cruz MD Primary Care Provider Elba De La Cruz MD Primary Care Provider Elba De La Cruz MD Primary Care Provider DOROTHY ., DR ARREOLA Primary Care Unavailable BRAD CARUSO Admitting Unavailable BRAD CARUSO Attending Unavailable LEONA RENDON Admitting Unavailable DOROTHY ., DR ARREOLA Primary Care Unavailable LEONA RENDON Attending Unavailable HANKY ., DR ARREOLA Primary Care Unavailable HOY ., DR ARREOLA Consulting Unavailable HOY ., DR ARREOLA Attending Unavailable HOY ., DR ARREOLA Admitting Unavailable Darrell Spring Consulting Unavailable HOFior ., DR ARREOLA Primary Care Unavailable LEONA RENDON Admitting Unavailable LEONA RENDON Consulting Unavailable LEONA RENDON Attending Unavailable ACE ARREOLA Consulting Unavailable HOY ., DR ARREOLA Primary Care Unavailable ACE DAIGLE Admitting Unavailable ACE DAIGLE Consulting Unavailable ACE DAIGLE Attending Unavailable GRETCHEN SON Consulting Unavailable Sushil Edgar Attending Unavailable Sushil Edgar Attending Unavailable Elba De La Cruz MD Primary Care Provider Elba De La Cruz MD Primary Care Provider Elba De La Cruz MD Primary Care Provider ANDREINA LAW Attending Unavailable ABRAM FIORE Attending Unavailable ANDREINA LAW Attending Unavailable HOY, ELBA M Primary Care Unavailable DAKHIL, NOMA Referring Unavailable HOY, ELBA M Primary Care Unavailable HOY, ELBA M Primary Care Unavailable ABHYANKAR, WYATT Attending Unavailable ABHYANKAR, WYATT Referring Unavailable HOY, ELBA M Primary Care Unavailable ABHYANKAR, WYATT Referring Unavailable HOY, ELBA M Primary Care Unavailable ABHYANKAR, WYATT Referring Unavailable ABHYANKAR, WYATT Attending Unavailable HOY, ELBA M Primary Care Unavailable ABHYANKAR, WYATT Referring Unavailable HOY, ELBA M Primary Care Unavailable ABHYANKAR, WYATT Attending Unavailable HOY, ELBA M Primary Care Unavailable ABHYANKAR, WYATT Referring Unavailable Medications Current Medications Medication Drug Class(es) Dates Sig (Normalized) Sig (Original) ascorbic acid 60 mg / cholecalciferol 0.01 mg / folic acid 0.3 mg / niacin 13.5 mg / riboflavin 1.2 mg / sodium fluoride 0.55 mg / thiamine 1.05 mg / vitamin a 0.75 mg / vitamin b12 0.0045 mg / vitamin b6 1.05 mg / vitamin e 6.75 mg chewable tablet (7 sources) Nicotinic Acid, Vitamin A, Vitamin B12, Vitamin D, Vitamin C Pediatric Multivitamins-Fl (MultiVitamin + Fluoride) 0.25 MG chewable tablet Multivitamin Active calcium carbonate 250 mg/ml oral suspension (7 sources) calcium carbonat e 1250 MG/5ML Take 1,250 mg by mouth in the morning and 1,250 mg at noon and 1,250 mg in the evening. Take with meals. Active cefdinir 300 mg oral capsule (7 sources) Cephalosporin Antibacterial take 1 capsule by mouth in the morning cefdinir (Omnicef) 300 MG capsule Take 300 mg by mouth in the morning and 300 mg before bedtime. Active iv contrast (will be provided with radiology test) (9 sources) Start: 01-21-2025 End: 01-21-2025 inject 1 dose intravenously once, then inject 1 dose intravenously once iv contrast (will be provided with radiology test) Indications: History of head and neck cancer , Lung nodules Inject 1 Each intravenously one [...] CT contrast administration guidelines link. 1 Each 01/21/2025 01/21/2025 Active Start: 01-21-2025 End: 01-22-2025 iv contrast (will be provide d with radiology test) Indications: History of head and neck cancer , Lung nodules CT Chest W -Inject, intravenously, [...] CT contrast administration guidelines link. 1 Each 01/21/2025 01/22/2025 Active Start: 06-29-2024 End: 06-29-2024 inject 1 dose intravenously once, then inject 1 dose intravenously once iv contrast (will be provided with radiology test) Indications: History of head and neck cancer , Lung nodules Inject 1 Each intravenously one [...] CT contrast administration guidelines link. 1 Each 06/29/2024 06/29/2024 Start: 06-29-2024 End: 06-30-2024 iv contrast (will be provide d with radiology test) Indications: History of head and neck cancer , Lung nodules CT Chest W -Inject, intravenously, [...] CT contrast administration guidelines link. 1 Each 06/29/2024 06/30/2024 Start: 03-30-2024 End: 03-31-2024 iv contrast (will be provide d with radiology test) Indications: History of head and neck cancer , Lung nodules CT Chest W -Inject, intravenously, [...] contrast administration guidelines link. 1 Each 0 03/30/2024 03/31/2024 Start: 12-19-2023 End: 12-20-2023 iv contrast (will be provide d with radiology test) Indications: Localized enlarged lymph [...] in the CT contrast administration guidelines link. Lactobacillus (7 sources) Lactobacillus (FLORANEX PO) Floranex Active levoFLOXacin 750 mg oral tablet (11 sources) Quinolone Antimicrobial take 1 tablet by mouth once daily levoFLOXacin (LEVAQUIN) 750 mg tablet Take 750 mg by mouth once daily. Active magnesium oxide 400 mg oral tablet (7 sources) take 1 tablet by mouth in the morning magnesium oxide (Mag-Ox) 400 mg tablet Take 400 mg by mouth in the morning. Active Multiple Vitamin (multivitamin) capsule (7 sources) take 1 capsule by mouth in the morning Multiple Vitamin (multivitamin) capsule Take 1 capsule by mouth in the morning. Active 24 hr nicotine 0.875 mg/hr transdermal system (7 sources) Cholinergic Nicotinic Agonist nicotine (Nicoderm, Step 1) 21 MG/24HR patch Place 1 patch on the skin 1 (one) time each day at the same time. Active omeprazole 40 mg delayed release oral capsule (7 sources) Proton Pump Inhibitor take 1 capsule by mouth before mealtime omeprazole (PriLOSEC) [address] capsule Take 40 mg by mouth in the morning. Take before meals. Active microencapsulated potassium chloride 20 meq extended release oral tablet (7 sources) take 1 tablet by mouth in the morning potassium chloride CR (KLOR-CON) 20 MEQ ER tablet Take 20 mEq by mouth in the morning and 20 mEq before bedtime. Active sofosbuvir 400 mg / velpatasvir 100 mg oral tablet (5 sources) Hepatitis C Virus NS5A Inhibitor, Hepatitis C Virus Nucleotide Analog NS5B Polymerase Inhibitor Start: End: take 1 tablet by mouth once daily Epclusa 400 mg-100 mg oral tablet tab(s), Oral, Daily, Refills(s) 0 Start Date: 04/06/22 Status: Ordered Comment on above: Take 1 tablet by kacie th once daily. tamsulosin hydrochloride 0.4 mg oral capsule (14 sources) alpha-Adrenergic Jose Manuel Start: take 1 capsule by mouth once tamsulosin (FLOMAX) 0.4 mg Take 1 capsule by mouth every afternoon. 11/22/2023 Active Comment on above: Take 1 capsule by mo uth every afternoon. thiamine 100 mg oral tablet (7 sources) take 1 tablet by mouth in the morning thiamine (Vitamin B-1) 100 MG tablet Take 100 mg by mouth in the morning. Active Problems Active Problems Problem Classification Problem Date Documented Date Episodic/Chronic Cancer of head and neck (20 sources) Malignant tumor of head and neck; Translations: [Malignant neoplasm of head, face and neck] Onset: 12-18-2020 12-18-2020 Chronic Cancer; other and unspecified primary (10 sources) History of malignant neoplasm of head and/or neck; Translations: [Personal history of malignant neoplasm of other organs and systems] 12-19-2023 Episodic Deficiency and other anemia (1 source) Deficiency and other anemia; Translations: [D64.9 - Anemia, unspecified] Onset: 03-14-2018 Essential hypertension (7 sources) Hypertensive disorder; Translations: [Essential (primary) hypertension] Onset: 03-17-2023 03-17-2023 Chronic Fracture of lower limb (1 source) Other fracture of upper and lower end of right fibula, initial encounter for closed fracture; Translations: [OTH FX UP LOW RT FIB INIT CLOS FX] Onset: 12-29-2022 Episodic Hepatitis (6 sources) Chronic hepatitis C; Translations: [Chronic viral hepatitis C] Onset: 05-28-2024 Chronic Hyperplasia of prostate (9 sources) Benign prostatic hypertrophy without outflow obstruction; Translations: [Benign prostatic hyperplasia without lower urinary tract symptoms] Onset: 04-06-2022 Chronic Immunizations and screening for infectious disease (1 source) Hepatitis C antibody test positive; Translations: [Other specified abnormal immunological findings in serum] Episodic Nutritional deficiencies (20 sources) Deficiency of macronutrients; Translations: [Unspecified severe protein-calorie malnutrition] Onset: 02-27-2018 02-27-2018 Chronic Other ear and sense organ disorders (2 sources) Sensorineural hearing loss, bilateral; Translations: [Sensorineural hearing loss, bilateral] 08-24-2024 Chronic Other hematologic conditions (20 sources) Myelosuppression; Translations: [Other specified diseases of blood and blood-forming organs] Onset: 03-24-2018 03-24-2018 Chronic Other injuries and conditions due to external causes (2 sources) Radiation injury; Translations: [Radiation sickness, unspecified, sequela] Episodic Other liver diseases (2 sources) Steatosis of liver; Translations: [Fatty (change of) liver, not elsewhere classified] 06-12-2024 Chronic Other non-traumatic joint disorders (4 sources) Pain in right ankle and joints of right foot; Translations: [PAIN IN RIGHT ANKLE] Onset: 01-27-2023 Episodic Other nutritional; endocrine; and metabolic disorders (7 sources) Porphyria cutanea tarda; 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] Onset: 03-17-2023 03-17-2023 Chronic Other upper respiratory disease (20 sources) Hoarse; Translations: [Dysphonia] Onset: 06-21-2023 01-12-2018 Episodic Secondary malignancies (20 sources) Metastatic squamous cell carcinoma; Translations: [Secondary malignant neoplasm of other specified sites] Onset: 03-17-2023 01-12-2018 Chronic Substance-related disorders (8 sources) Smoker; Translations: [Nicotine dependence, unspecified, uncomplicated] Onset: 06-21-2023 08-07-2020 Chronic Thyroid disorders (2 sources) Disorder of thyroid gland; Translations: [Disorder of thyroid, unspecified] Episodic Past or Other Problems Problem Classification Problem Date Documented Da te Episodic/Chronic Cancer of head and neck (8 sources) History of malignant neoplasm of tongue; Translations: [Personal history of malignant neoplasm of tongue] Onset: 06-21-2023 Resolved: 06-21-2023 08-07-2020 Episodic Cancer; other and unspecified primary (1 source) Personal history of malignant neoplasm of other organs and systems; Translations: [History of head and neck cancer] Onset: 03-23-2024 Episodic Genitourinary symptoms and ill-defined conditions (10 sources) Nocturia; Translations: [Nocturia] Onset: 04-06-2022 Resolved: 06-21-2023 Episodic Lymphadenitis (3 sources) Localized enlarged lymph nodes; Translations: [Localized enlarged lymph nodes] Onset: 03-23-2024 12-19-2023 Episodic Other lower respiratory disease (20 sources) Multiple nodules of lung; Translations: [Other nonspecific abnormal finding of lung field] Onset: 12-18-2020 12-18-2020 Episodic Other lower respiratory disease (1 source) Other nonspecific abnormal finding of lung field; Translations: [Lung nodules] Onset: 12-18-2020 Episodic Other screening for suspected conditions (not mental disorders or infectious disease) (3 sources) Liver function tests abnormal; Translations: [Other specified abnormal findings of blood chemistry] Onset: 05-28-2024 05-17-2024 Episodic Poisoning by other medications and drugs (20 sources) Mucositis following radiation therapy; Translations: [Oral mucositis (ulcerative) due to radiation] Onset: 02-27-2018 02-27-2018 Episodic Skull and face fractures (7 sources) Closed fracture of right maxilla; Translations: [Maxillary fracture, right side, initial encounter for closed fracture] Onset: 07-20-2023 07-20-2023 Episodic Results Test Name Value Interpretation Reference Range Facility [facility] 01-21-2025 [facility] Visit (SP) Office ([place]) CARSON MORSE ([id number]) 1955 Date Time Provider Department 01/21/25 11:40 AM WYATT GARZA During your visit today, we recorded the following information about you: Temperature Pulse Respiration Blood pressure 97.6 degrees 77/minute 16/minute 187/85 Weight Height 69.5 kg 1.651 m Wyatt Garza MD 01/21/2025 11:[address] Neck Chest in 12 months Labs same day - include CBC, CMP RTC 1 week after with me to review Wyatt Garza MD 01/21/2025 11:32 AM Signed NAME: Carson Morse CLINIC NO.: [id number] DATE OF SERVICE: January 21, 2025 (Mirian) Some elements in this clinic note that are critical to medical decision making have been carefully reviewed and included from a prior clinic note dated: June 29, 2024 (Mirian) Additional Clinicians involved in Carson Morse's care: Dorothy Atkins Noma Dakhil CC: Head and neck cancer [...] Hepatitis C has been irradicated. PLAN: CT Neck Chest in 12 months Labs same day - include CBC, CMP RTC 1 week after with me to review - HPI: CASE HISTORY: Reverse Chronological Order 01/10/2025 - CT Neck/Chest: Neck: Redemonstration of the posttreatment related changes in the neck. No evidence of new neck mass or lymphadenopathy.. Chest: No CT evidence of new metastatic disease in the chest. Pulmonary nodules measuring up to 6 mm are unchanged from June 2024. No new or enlarging pulmonary nodules are identified. A mildly enlarged left paratracheal lymph node is stable. Right paratracheal lymph nodes have decreased in size. No enlarging lymph nodes identified in the chest. Unchanged moderate L1 compression deformity. 06/22/2024 - CT Chest: Previously identified new pulmonary nodules have resolved suggesting infectious/inflammator y process. No new suspicious appearing pulmonary nodules. Age indeterminant L1 compression fracture. 03/23/2024 - CT Chest: New subcentimeter nodular opacities measuring less than 5 mm. Consider follow-up to complete resolution. Other subcentimeter nodular opacities measuring 7 mm, stable since 12/16/22. New healing fracture deformities of several left ribs. Borderline mediastinal lymphadenopathy, stable. 02/24/2024 - ER after being found unresponsive, woke up after being given Narcan 01/31/2024 - ER after fall due to alcohol intoxication 12/16/2023 - CT Neck/Chest: Neck: Stable appearance of the soft tissues of the neck since 12/15/2022. No evidence of recurrent soft tissue mass or significant cervical lymphadenopathy by size criteria. Chest: Stable appearance of bilateral pulmonary nodules. No new or enlarging nodules are seen. Slight interval increase in size of a [...] in the right middle lobe most likely infectious/inflammator y in etiology. Consider follow-up to complete resolution. [...] of the lungs. 05/21/2020 - CT N/Chest: Bilater (more content not included)... Normal [facility] CNPLenore 01-18-2025 CNPN Telephone (GASTNO) CARSON MORSE ([id number]) 1955 M Date Time Provider Department 01/18/25 HALIMA NIXON During your visit today, we recorded the following information about you: Mary Villarreal RN 01/18/2025 10:53 AM Signed Pt notified of results and recommendations and verbalized understanding. Schedulers, please call pt to schedule US, Fibroscan and OV. Orders are already placed. Thank you, NOLAN Meeks Noma, MD P [facility] Nurse Pool Normal AFP Patient is overdue for US He needs to schedule MD Dai Lam Sharon 01/18/2025 12:32 PM Signed Unable to lvm and no mychart Rufina Almaraz 01/28/2025 2:49 PM Signed Attempted to call and vm is full, no myc and no contacts as well. Ivette Lala 02/01/2025 10:20 AM Signed 3rd attempt Allergies As of Date: 01/18/2025 (No Known Allergies) Date Reviewed: 06/29/2024 Reviewed by: Emily Gomez MA - Fully Assessed Reason for Visit: Follow Up Tests Results [770] Cmt: Labs---->needs US, Fibroscan and OV Prescriptions as of 02/01/2025 - levoFLOXacin (LEVAQUIN) 750 mg tablet Take 750 mg by mouth once daily. - tamsulosin (FLOMAX) 0.4 mg Take 1 capsule by mouth every afternoon. Problem List As Of Date 01/18/2025 Noted Resolved Metastatic squamous cell carcinoma to head and * Hoarse voice quality [R49.0] Mucositis due to radiation therapy [K12.33] 02/27/2018 Severe protein-calorie malnutrition (HCC) [E43] 02/27/2018 Myelosuppression [D75.89] 03/24/2018 Malignant neoplasm of head, face and neck (HCC)*12/18/2020 Lung nodules [R91.8] 12/18/2020 Encounter Status:Closed by IVETTE LALA on 01/18/25 Normal [facility] AFP SerPl-mCncon 01-10-2025 AFP [Mass/Vol] 4.54 ng/mL Normal <9.00 [facility] Comment on above: Order Comment: Speci men Type: BLOOD SPECIMENOrdering Facility: [facility] Address: [address] [place] [address] Result Comment: The Alpha-Fetoprotein test was performed using the [employer] DxI immunoenzymatic assay. Results obtained with different assay methods or kits cannot be used interchangeably. Performed By: #### 1 834-1 ####[facility] LABCLIA [id number] [place] [address] [place] CBC W Auto Differential pane l (Bld)on 01-10-2025 Basophils (Bld) [#/Vol] 0.09 10*3/uL [facility] Basophils/100 WBC (Bld) 1.9 % [facility] Differential cell count method Nom (Bld) Auto [facility] Eosinophils (Bld) [#/Vol] 0.11 10*3/uL [facility] Eosinophils/100 WBC (Bld) 2.4 % [facility] Erythrocyte distribution width (RBC) [Ratio] 12.2 % 11.5 - 15.0 % [facility] Hematocrit (Bld) [Volume fraction] 31.6 % Low 39.0 - 51.0 % [facility] Hemoglobin (Bld) [Mass/Vol] 10.6 g/dL Low 13.0 - 17.0 g/dL [facility] Immature granulocytes (Bld) [#/Vol] [facility] Immature granulocytes/100 WBC (Bld) 0.4 % [facility] Interpretation and review of laboratory results Abnormal [facility] Lymphocytes (Bld) [#/Vol] 0.96 10*3/uL Low [facility] Lymphocytes/100 WBC (Bld) 20.7 % [facility] MCH (RBC) [Entitic mass] 33.9 pg 26.0 - 34.0 pg [facility] MCHC (RBC) [Mass/Vol] 33.5 g/dL 30.5 - 36.0 g/dL [facility] MCV (RBC) [Entitic vol] 101 fL High 80.0 - 100.0 fL [facility] Monocytes (Bld) [#/Vol] 0.38 10*3/uL [facility] Monocytes/100 WBC (Bld) 8.2 % [facility] Neutrophils (Bld) [#/Vol] 3.08 10*3/uL [facility] Neutrophils/100 WBC (Bld) 66.4 % [facility] Nucleated RBC (Bld) [#/Vol] [facility] Nucleated RBC/100 WBC (Bld) [Ratio] 0 % /100 WBC [facility] Platelet mean volume (Bld) [Entitic vol] 9.4 fL 9.0 - 12.7 fL [facility] Platelets (Bld) [#/Vol] 209 10*3/uL [facility] RBC (Bld) [#/Vol] 3.13 10*6/uL Low 4.20 - 6.0 0 m/uL [facility] WBC (Bld) [#/Vol] 4.64 10*3/uL [facility] Basophils (Bld) [#/Vol] 0.09 10*3/uL Normal <0.11 [facility] Comment on above: Order Comment: Speci men Type: BLOOD SPECIMENOrdering Facility: [facility] Address: [address] [place] [address] Performed By: #### 5 7021-8 ####[facility] LABCLIA [id number] [place] [address] Basophils/100 WBC (Bld) 1.9 % Normal [facility] Comment on above: Order Comment: Speci men Type: BLOOD SPECIMENOrdering Facility: [facility] Address: [address] [place] [address] Performed By: #### 5 7021-8 ####[facility] LABCLIA [id number] [place] [address] Differential cell count method Nom (Bld) Auto Normal [facility] Comment on above: Order Comment: Speci men Type: BLOOD SPECIMENOrdering Facility: [facility] Address: [address] [place] [address] Performed By: #### 5 7021-8 ####[facility] LABCLIA [id number] [place] [address] Eosinophils (Bld) [#/Vol] 0.11 10*3/uL Normal <0.46 [facility] Comment on above: Order Comment: Speci men Type: BLOOD SPECIMENOrdering Facility: [facility] Address: [address] [place] [address] Performed By: #### 5 7021-8 ####[facility] LABCLIA [id number] [place] [address] Eosinophils/100 WBC (Bld) 2.4 % Normal [facility] Comment on above: Order Comment: Speci men Type: BLOOD SPECIMENOrdering Facility: [facility] Address: [address] [place] [address] Performed By: #### 5 7021-8 ####[facility] LABCLIA [id number] [place] [address] Erythrocyte distribution width (RBC) [Ratio] 12.2 % Normal 11.5-15.0 [facility] Comment on above: Order Comment: Speci men Type: BLOOD SPECIMENOrdering Facility: [facility] Address: [address] [place] [address] Performed By: #### 5 7021-8 ####[facility] LABCLIA [id number] [place] [address] Hematocrit (Bld) [Volume fraction] 31.6 % Low 39.0-51.0 [facility] Comment on above: Order Comment: Speci men Type: BLOOD SPECIMENOrdering Facility: [facility] Address: [address] [place] [address] Performed By: #### 5 7021-8 ####[facility] LABCLIA [id number] [place] [address] Hemoglobin (Bld) [Mass/Vol] 10.6 g/dL Low 13.0-17.0 [facility] Comment on above: Order Comment: Speci men Type: BLOOD SPECIMENOrdering Facility: [facility] Address: [address] [place] [address] Performed By: #### 5 7021-8 ####[facility] LABCLIA [id number] [place] [address] Immature granulocytes (Bld) [#/Vol] 10*3/uL Normal <0.10 [facility] Comment on above: Order Comment: Speci men Type: BLOOD SPECIMENOrdering Facility: [facility] Address: [address] [place] [address] Performed By: #### 5 7021-8 ####[facility] LABCLIA [id number] [place] [address] Immature granulocytes/100 WBC (Bld) 0.4 % Normal [facility] Comment on above: Order Comment: Speci men Type: BLOOD SPECIMENOrdering Facility: [facility] Address: [address] [place] [address] Performed By: #### 5 7021-8 ####[facility] LABCLIA [id number] [place] [address] Lymphocytes (Bld) [#/Vol] 0.96 10*3/uL Low 1.00-4.00 [facility] Comment on above: Order Comment: Speci men Type: BLOOD SPECIMENOrdering Facility: [facility] Address: [address] [place] [address] Performed By: #### 5 7021-8 ####[facility] LABCLIA [id number] [place] [address] Lymphocytes/100 WBC (Bld) 20.7 % Normal [facility] Comment on above: Order Comment: Speci men Type: BLOOD SPECIMENOrdering Facility: [facility] Address: [address] [place] [address] Performed By: #### 5 7021-8 ####[facility] LABCLIA [id number] [place] [address] MCH (RBC) [Entitic mass] 33.9 pg Normal 26.0-34.0 [facility] Comment on above: Order Comment: Speci men Type: BLOOD SPECIMENOrdering Facility: [facility] Address: [address] [place] [address] Performed By: #### 5 7021-8 ####[facility] LABIA [id number] [place] [address] MCHC (RBC) [Mass/Vol] 33.5 g/dL Normal 30.5-36.0 [facility] Comment on above: Order Comment: Speci men Type: BLOOD SPECIMENOrdering Facility: [facility] Address: [address] [place] [address] Performed By: #### 5 7021-8 ####[facility] LABIA [id number] [place] [address] MCV (RBC) [Entitic vol] 101.0 fL High 80.0-100.0 [facility] Comment on above: Order Comment: Speci men Type: BLOOD SPECIMENOrdering Facility: [facility] [facility] Address: [address] [place] [address] Performed By: #### 5 7021-8 ####[facility] LABIA [id number] [place] [address] Monocytes (Bld) [#/Vol] 0.38 10*3/uL Normal <0.87 [facility] Comment on above: Order Comment: Speci men Type: BLOOD SPECIMENOrdering Facility: [facility] Address: [address] [place] [address] Performed By: #### 5 7021-8 ####[facility] LABCLIA [id number] [place] [address] Monocytes/100 WBC (Bld) 8.2 % Normal [facility] Comment on above: Order Comment: Speci men Type: BLOOD SPECIMENOrdering Facility: [facility] Address: [address] [place] [address] Performed By: #### 5 7021-8 ####[facility] LABCLIA [id number] [place] [address] Neutrophils (Bld) [#/Vol] 3.08 10*3/uL Normal 1.45-7.50 [facility] Comment on above: Order Comment: Speci men Type: BLOOD SPECIMENOrdering Facility: [facility] Address: [address] [place] [address] Performed By: #### 5 7021-8 ####[facility] LABCLIA [id number] [place] [address] Neutrophils/100 WBC (Bld) 66.4 % Normal [facility] Comment on above: Order Comment: Speci men Type: BLOOD SPECIMENOrdering Facility: [facility] Address: [address] [place] [address] Performed By: #### 5 7021-8 ####[facility] LABCLIA [id number] [place] [address] Nucleated RBC (Bld) [#/Vol] 10*3/uL Normal <0.01 [facility] Comment on above: Order Comment: Speci men Type: BLOOD SPECIMENOrdering Facility: [facility] Address: [address] [place] [address] Performed By: #### 5 7021-8 ####[facility] LABCLIA [id number] [place] [address] Nucleated RBC/100 WBC (Bld) [Ratio] 0.0 /100 WBC Normal [facility] Comment on above: Order Comment: Speci men Type: BLOOD SPECIMENOrdering Facility: [facility] Address: [address] [place] [address] Performed By: #### 5 7021-8 ####[facility] LABCLIA [id number] [place] [address] Platelet mean volume (Bld) [Entitic vol] 9.4 fL Normal 9.0-12.7 [facility] Comment on above: Order Comment: Speci men Type: BLOOD SPECIMENOrdering Facility: [facility] Address: [address] [place] [address] Performed By: #### 5 7021-8 ####[facility] LABIA [id number] [place] [address] Platelets (Bld) [#/Vol] 209 10*3/uL Normal 150-400 [facility] Comment on above: Order Comment: Speci men Type: BLOOD SPECIMENOrdering Facility: [facility] Address: [address] [place] [address] Performed By: #### 5 7021-8 ####[facility] LABIA [id number] [place] [address] RBC (Bld) [#/Vol] 3.13 10*6/uL Low 4.20-6.00 [facility] Comment on above: Order Comment: Speci men Type: BLOOD SPECIMENOrdering Facility: [facility] Address: [address] [place] [address] Performed By: #### 5 7021-8 ####[facility] LABIA [id number] [place] [address] WBC (Bld) [#/Vol] 4.64 10*3/uL Normal 3.70-11.00 [facility] Comment on above: Order Comment: Speci men Type: BLOOD SPECIMENOrdering Facility: [facility] Address: [facility] [address] Performed By: #### 5 7021-8 ####[facility] LABCLIA [id number] [place] [address] CT CHE[address] CHEST W IVCON * * *Final Report* * * DATE OF EXAM: Jan 10 2025 3:05PM [facility] 0539 - CT CHEST W IVCON / PROCEDURE REASON: multiple diagnoses * * * * Physician Interpretation * * * * RESULT: EXAMINATION: CHEST CT WITH CONTRAST CLINICAL HISTORY: History of head and neck cancer. Lung nodules. Technique: Spiral CT acquisition of the chest from the thoracic inlet to the upper abdomen following IV contrast. MQ: [id number] Contrast: 100 mL Omnipaque [address] Radiation dose: Integrated Dose-length product (DLP) for this visit = 876 mGy*cm CT Dose Reduction Employed: Automated exposure control (AEC) Comparison: Multiple previous chest CTs, the most recent dated 06/22/2024 RESULT: Limitations: None. Lines, tubes, and devices: None. Lung parenchyma and airways: Redemonstration of pulmonary nodules as follows: Two 2 mm right upper lobe nodule seen on series 4 image 70. 3 mm left upper lobe nodule on series 4 image 75. 6 mm right middle lobe nodule on series 4 image 132. The above nodules are unchanged from June 2024. No new pulmonary nodules or masses are identified. Mild to moderate upper lung predominant emphysema is unchanged. No new airspace consolidation. The central airways are patent. Pleural space: No pleural effusion. No pleural thickening. Lower neck, lymph nodes, and mediastinum: The imaged thyroid gland is unremarkable. No pathologically enlarged lymph nodes are identified in the supraclavicular, axillary or hilar regions. A mildly enlarged left paratracheal lymph node measures 1.2 cm on series 3 image 70, this is unchanged from previously. Right paratracheal lymph nodes have decreased in size, measuring up to 9 mm in short axis diameter compared to 1.2 cm previously. No enlarging lymph nodes identified in the chest. Heart, pericardium, and thoracic vessels: The thoracic aorta and main pulmonary artery are normal in caliber. The cardiac chambers are normal in size. Moderate coronary artery atherosclerotic calcifications are noted, although the study is not optimized for coronary assessment. No pericardial effusion or thickening. Bones and soft tissues: A moderate L1 compression deformity is unchanged from June 2024. No destructive skeletal lesion is present. Mild multilevel thoracic spine degenerative disc disease is noted. Chronic healed right-sided rib fractures noted. Upper abdomen: The included images of the upper abdomen are unremarkable, within limitations of noncontrast technique. Localizer images: No additional findings. IMPRESSION: 1. No CT evidence of new metastatic disease in the chest. 2. Pulmonary nodules measuring up to 6 mm are unchanged from June 2024. No new or enlarging pulmonary nodules are identified. 3. A mildly enlarged left paratracheal lymph node is stable. Right paratracheal lymph nodes have decreased in size. No enlarging lymph nodes identified in the chest. 4. Unchanged moderate L1 compression deformity. Transcribe Date/Time: Jan 11 2025 9:04A Dictated by: YAEL COBB MD This examination was interpreted and the report reviewed and electronically signed by: YAEL COBB MD on Jan 11 2025 9:15AM EST Thank you for allowing us to participate in the care of your patient. Should there be any questions regarding this interpretation, please call [phone]. If you are unable to reach us at the number above, please feel free to contact [facility] at [phone]. [id number] Normal [facility] CT NECK SOFT TISSUE W IVCONo n 01-10-2025 CT NECK SOFT TISSUE W IVCON * * *Final Report* * * DATE OF EXAM: Jan 10 2025 3:05PM [facility] 0013 - CT NECK SOFT TISSUE W IVCON / PROCEDURE REASON: multiple diagnoses * * * * Physician Interpretation * * * * RESULT: CT NECK SOFT TISSUE W IVCON History: History of head and neck cancer Lung nodules Comparison: CT neck soft tissue from 12/16/2023. Technique: A series of contiguous helical scans were performed from the skull base to the aortic arch with intravenous contrast. Contrast: Omnipaque 300. Contrast Dose: 100 cc Route of Administration: IV CT Radiation dose: Integrated Dose-length product (DLP) for this visit = 876 mGy*cm. CT Dose Reduction Employed: Automated exposure control (AEC) RESULT: Postoperative change: Again noted are punctate metallic densities in the superficial soft tissues of the anterior neck at the level of the hyoid bone. There is also mild stranding of the superficial soft tissues in this area compatible with posttreatment changes. Valves noted is stable thickening of the skin of the lateral neck bilaterally at the level of the hypopharynx, more on the right side. The skin thickening is contiguous with the dorsal lateral aspect of the sternocleidomastoid muscles and is also felt to be posttreatment related. Suprahyoid Neck: Nasopharynx and oropharynx appear normal. Parapharyngeal tissue planes are preserved. Oral cavity and floor of mouth appear normal within constraints of artifact from dental amalgam. Parotid and submandibular spaces are normal. Business Mail Entry Clerk spaces appear normal. Infrahyoid Neck: Hypopharynx, larynx, and imaged infraglottic trachea appear normal. Imaged upper esophagus is unremarkable. Thyroid gland is homogeneous without evidence of discrete nodule. Lymph Nodes: No cervical lymphadenopathy by size criteria. Carotid Space: No masses. Patent extracranial carotid systems and internal jugular veins bilaterally. Orbits, Face and Skull Base: Orbital soft tissue planes are preserved. Paranasal sinuses are clear. Mastoid air cells and middle ear cavities are clear. No evidence of an osteolytic or osteoblastic process in the skull base. Imaged intracranial contents: No abnormal intracranial enhancement, mass effect, or hydrocephalus. Cervical spine and remaining osseous structures: No discrete osteolytic or osteoblastic process. No significant spondylotic changes in the visualized spine. Lung apices: For detailed intrathoracic findings, please see concurrent CT chest which is reported under a separate accession. Other: Not applicable. IMPRESSION: Redemonstration of the posttreatment related changes in the neck. No evidence of new neck mass or lymphadenopathy.. Transcribe Date/Time: Jan 10 2025 3:15P Dictated by: NÉSTOR GREEN MD This examination was interpreted and the report reviewed and electronically signed by: NÉSTOR GREEN MD on Jan 10 2025 3:19PM EST Thank you for allowing us to participate in the care of your patient. Should there be any questions regarding this interpretation, please call [phone]. If you are unable to reach us at the number above, please feel free to contact [facility] at [phone]. [id number] Normal [facility] CT Neck W contrast Javier 03-0 IMPRESSION: Redemonstration of the posttreatment related changes in the neck. No evidence of new neck mass or lymphadenopathy.. Transcribe Date/Time: Jan 10 2025 3:15P Dictated by: NÉSTOR GREEN MD This examination was interpreted and the report reviewed and electronically signed by: NÉSTOR GREEN MD on Jan 10 2025 3:19PM EST Thank you for allowing us to participate in the care of your patient. Should there be any questions regarding this interpretation, please call [phone]. If you are unable to reach us at the number above, please feel free to contact [facility] at [phone]. DIVISION OF RADIOLOGY * * *Final Report* * * DATE OF EXAM: Jan 10 2025 3:05PM [facility] 0013 - CT NECK SOFT TISSUE W IVCON / PROCEDURE REASON: multiple diagnoses * * * * Physician Interpretation * * * * RESULT: CT NECK SOFT TISSUE W IVCON History: History of head and neck cancer Lung nodules Comparison: CT neck soft tissue from 12/16/2023. Technique: A series of contiguous helical scans were performed from the skull base to the aortic arch with intravenous contrast. Contrast: Omnipaque 300. Contrast Dose: 100 cc Route of Administration: IV CT Radiation dose: Integrated Dose-length product (DLP) for this visit = 876 mGy*cm. CT Dose Reduction Employed: Automated exposure control (AEC) RESULT: Postoperative change: Again noted are punctate metallic densities in the superficial soft tissues of the anterior neck at the level of the hyoid bone. There is also mild stranding of the superficial soft tissues in this area compatible with posttreatment changes. Valves noted is stable thickening of the skin of the lateral neck bilaterally at the level of the hypopharynx, more on the right side. The skin thickening is contiguous with the dorsal lateral aspect of the sternocleidomastoid muscles and is also felt to be posttreatment related. Suprahyoid Neck: Nasopharynx and oropharynx appear normal. Parapharyngeal tissue planes are preserved. Oral cavity and floor of mouth appear normal within constraints of artifact from dental amalgam. Parotid and submandibular spaces are normal. Business Mail Entry Clerk spaces appear normal. Infrahyoid Neck: Hypopharynx, larynx, and imaged infraglottic trachea appear normal. Imaged upper esophagus is unremarkable. Thyroid gland is homogeneous without evidence of discrete nodule. Lymph Nodes: No cervical lymphadenopathy by size criteria. Carotid Space: No masses. Patent extracranial carotid systems and internal jugular veins bilaterally. Orbits, Face and Skull Base: Orbital soft tissue planes are preserved. Paranasal sinuses are clear. Mastoid air cells and middle ear cavities are clear. No evidence of an osteolytic or osteoblastic process in the skull base. Imaged intracranial contents: No abnormal intracranial enhancement, mass effect, or hydrocephalus. Cervical spine and remaining osseous structures: No discrete osteolytic or osteoblastic process. No significant spondylotic changes in the visualized spine. Lung apices: For detailed intrathoracic findings, please see concurrent CT chest which is reported under a separate accession. Other: Not applicable. DIVISION OF RADIOLOGY Provider, [facility] - 01/10/2025 * * *Final Report* * * DATE OF EXAM: Jan 10 2025 3:05PM [facility] 0013 - CT NECK SOFT TISSUE W IVCON / PROCEDURE REASON: multiple diagnoses * * * * Physician Interpretation * * * * RESULT: CT NECK SOFT TISSUE W IVCON History: History of head and neck cancer Lung nodules Comparison: CT neck soft tissue from 12/16/2023. Technique: A series of contiguous helical scans were performed from the skull base to the aortic arch with intravenous contrast. Contrast: Omnipaque 300. Contrast Dose: 100 cc Route of Administration: IV CT Radiation dose: Integrated Dose-length product (DLP) for this visit = 876 mGy*cm. CT Dose Reduction Employed: Automated exposure control (AEC) RESULT: Postoperative change: Again noted are punctate metallic densities in the superficial soft tissues of the anterior neck at the level of the hyoid bone. There is also mild stranding of the superficial soft tissues in this area compatible with posttreatment changes. Valves noted is stable thickening of the skin of the lateral neck bilaterally at the level of the hypopharynx, more on the right side. The skin thickening is contiguous with the dorsal lateral aspect of the sternocleidomastoid muscles and is also felt to be posttreatment related. Suprahyoid Neck: Nasopharynx and oropharynx appear normal. Parapharyngeal tissue planes are preserved. Oral cavity and floor of mouth appear normal within constraints of artifact from dental amalgam. Parotid and submandibular spaces are normal. Business Mail Entry Clerk spaces appear normal. Infrahyoid Neck: Hypopharynx, larynx, and imaged infraglottic trachea appear normal. Imaged upper esophagus is unremarkable. Thyroid gland is homogeneous without evidence of discrete nodule. Lymph Nodes: No cervical lymphadenopathy by size criteria. Carotid Space: No masses. Patent extracranial carotid systems and internal jugular veins bilaterally. Orbits, Face and Skull Base: Orbital soft tissue planes are preserved. Paranasal sinuses are clear. Mastoid air cells and middle ear cavities are clear. No evidence of an osteolytic or osteoblastic process in the skull base. Imaged intracranial contents: No abnormal intracranial enhancement, mass effect, or hydrocephalus. Cervical spine and remaining osseous structures: No discrete osteolytic or osteoblastic process. No significant spondylotic changes in the visualized spine. Lung apices: For detailed intrathoracic findings, please see concurrent CT chest which is reported under a separate accession. Other: Not applicable. IMPRESSION IMPRESSION: Redemonstration of the posttreatment related changes in the neck. No evidence of new neck mass or lymphadenopathy.. Transcribe Date/Time: Jan 10 2025 3:15P Dictated by: NÉSTOR GREEN MD This examination was interpreted and the report reviewed and electronically signed by: NÉSTOR GREEN MD on Jan 10 2025 3:19PM EST Thank you for allowing us to participate in the care of your patient. Should there be any questions regarding this interpretation, please call [phone]. If you are unable to reach us at the number above, please feel free to contact [facility] at [phone]. [facility] Radiology Study observation (narrative) [facility] CT Neck W contrast IVOrdered By: [facility] Provider on 01-10-2025 [facility] Comprehensive metabolic 2000 panelOrdered By: Jess Baker on 01-10-2025 Albumin [Mass/Vol] 4.4 g/dL 3.9 - 4.9 g/dL [facility] ALP [Catalytic activity/Vol] 79 U/L 38 - 113 U/L [facility] ALT [Catalytic activity/Vol] 8 U/L Low 10 - 54 U/L [facility] Anion gap [Moles/Vol] 11 mmol/L 8 - 15 mmol/L [facility] AST [Catalytic activity/Vol] 14 U/L 14 - 40 U/L [facility] Bilirubin [Mass/Vol] 0.6 mg/dL 0.2 - 1.3 mg/dL [facility] Calcium [Mass/Vol] 9.6 mg/dL 8.5 - 10. 2 mg/dL [facility] Chloride [Moles/Vol] 102 mmol/L 98 - 107 mmol/L [facility] CO2 [Moles/Vol] 25 mmol/L 22 - 30 mmol/L [facility] Creatinine [Mass/Vol] 0.68 mg/dL Low 0.73 - 1.22 mg/dL [facility] GFR/1.73 sq M.predicted among non-blacks MDRD (S/P/Bld) [Vol rate/Area] 101 mL/min/{1.73_m2} - PINF [facility] Comment on above: Estimated Glomerular Filtration Rate (eGFR) is calculated using the 2020 CKD-EPI creatinine equation. This equation utilizes serum creatinine, sex, and age as parameters. The creatinine assay has traceable calibration to isotope dilution-mass spectrometry. Refer to KDIGO guidelines for clinical interpretation. In patients with unstable renal function, e.g. those with acute kidney injury, the eGFR may not accurately reflect actual GFR. Glucose [Mass/Vol] 100 mg/dL High 74 - 99 mg/dL [facility] Comment on above: The [place] Diabete s Association (ADA) provides guidance for cutoff values [...] Standards of Medical Care in Diabetes 2016, [place] Diabetes Association. Diabetes Care. 2016.39(Suppl 1). Interpretation and review of laboratory results Abnormal [facility] Potassium [Moles/Vol] 3.7 mmol/L 3.7 - 5.1 mmol/L [facility] Protein [Mass/Vol] 6.8 g/dL 6.3 - 8.0 g/dL Cl [facility] Sodium [Moles/Vol] 138 mmol/L 136 - 144 mmol/L [facility] Urea nitrogen [Mass/Vol] 9 mg/dL 9 - 24 mg/dL [facility] Comprehensive metabolic 2000 panelon 01-10-2025 Albumin [Mass/Vol] 4.4 g/dL Normal 3.9-4.9 [facility] Comment on above: Order Comment: Speci men Type: BLOOD SPECIMENOrdering Facility: [facility] Address: [address] [place] [address] Performed By: #### 2 4323-8 ####[facility] LABCLIA [id number] [place] [address] ALP [Catalytic activity/Vol] 79 U/L Normal 38-113 [facility] Comment on above: Order Comment: Speci men Type: BLOOD SPECIMENOrdering Facility: [facility] Address: [address] [place] [address] Performed By: #### 2 4323-8 ####[facility] LABCLIA [id number] [place] [address] ALT [Catalytic activity/Vol] 8 U/L Low 10-54 [facility] Comment on above: Order Comment: Speci men Type: BLOOD SPECIMENOrdering Facility: [facility] Address: [address] [place] [address] Performed By: #### 2 4323-8 ####[facility] LABCLIA [id number] [place] [address] Anion gap [Moles/Vol] 11 mmol/L Normal 8-15 [facility] Comment on above: Order Comment: Speci men Type: BLOOD SPECIMENOrdering Facility: [facility] Address: [address] [place] [address] Performed By: #### 2 4323-8 ####[facility] LABCLIA [id number] [place] [address] AST [Catalytic activity/Vol] 14 U/L Normal 14-40 [facility] Comment on above: Order Comment: Speci men Type: BLOOD SPECIMENOrdering Facility: [facility] Address: [address] [place] [address] Performed By: #### 2 4323-8 ####[facility] LABCLIA [id number] [place] [address] Bilirubin [Mass/Vol] 0.6 mg/dL Normal 0.2-1.3 [facility] Comment on above: Order Comment: Speci men Type: BLOOD SPECIMENOrdering Facility: [facility] Address: [address] [place] [address] Performed By: #### 2 4323-8 ####[facility] LABCLIA [id number] [place] [address] Calcium [Mass/Vol] 9.6 mg/dL Normal 8.5-10.2 [facility] Comment on above: Order Comment: Speci men Type: BLOOD SPECIMENOrdering Facility: [facility] Address: [address] [place] [address] Performed By: #### 2 4323-8 ####[facility] LABCLIA [id number] [place] [address] Chloride [Moles/Vol] 102 mmol/L Normal 98-107 [facility] Comment on above: Order Comment: Speci men Type: BLOOD SPECIMENOrdering Facility: [facility] Address: [address] [place] [address] Performed By: #### 2 4323-8 ####[facility] LABCLIA [id number] [place] [address] CO2 [Moles/Vol] 25 mmol/L Normal 22-30 [facility] Comment on above: Order Comment: Speci men Type: BLOOD SPECIMENOrdering Facility: [facility] Address: [address] [place] [address] Performed By: #### 2 4323-8 ####[facility] LABCLIA [id number] [place] [address] Creatinine [Mass/Vol] 0.68 mg/dL Low 0.73-1.22 [facility] Comment on above: Order Comment: Gretel hilario Type: BLOOD SPECIMENOrdering Facility: [facility] Address: [address] [id number] Performed By: #### 2 4323-8 ####[facility] LABCLIA [id number] [place] [address] Creatinine and Glomerular filtration rate.predicted panel (S/P/Bld) 101 mL/min/1.73m??? Normal >=60 [facility] Comment on above: Order Comment: Gretel hilario Type: BLOOD SPECIMENOrdering Facility: [facility] Address: [address] [place] [address] Result Comment: Lulú mated Glomerular Filtration Rate [...] actual GFR. Performed By: #### 2 4323-8 ####[facility] LABCLIA [id number] [place] [address] Glucose [Mass/Vol] 100 mg/dL High 74-99 [facility] Comment on above: Order Comment: Gretel hilario Type: BLOOD SPECIMENOrdering Facility: [facility] Address: [address] [place], [place] [id number] Result Comment: The [place] Diabetes Association (ADA) provides guidance for cutoff [...] Standards of Medical Care in Diabetes 2016, [place] Diabetes Association. Diabetes Care. 2016.39(Suppl 1). Performed By: #### 2 4323-8 ####[facility] LABCLIA [id number] [place] [address] Potassium [Moles/Vol] 3.7 mmol/L Normal 3.7-5.1 [facility] Comment on above: Order Comment: Speci men Type: BLOOD SPECIMENOrdering Facility: [facility] Address: [address] [place] [place] [address] Performed By: #### 2 4323-8 ####[facility] LABCLIA [id number] [place] [address] Protein [Mass/Vol] 6.8 g/dL Normal 6.3-8.0 [facility] Comment on above: Order Comment: Speci men Type: BLOOD SPECIMENOrdering Facility: [facility] Address: [address] [place] [address] Performed By: #### 2 4323-8 ####[facility] LABCLIA [id number] [place] [address] Sodium [Moles/Vol] 138 mmol/L Normal 136-144 [facility] Comment on above: Order Comment: Speci men Type: BLOOD SPECIMENOrdering Facility: [facility] Address: [address] [place] [address] Performed By: #### 2 4323-8 ####[facility] LABCLIA [id number] [place] [address] Urea nitrogen [Mass/Vol] 9 mg/dL Normal 9-24 [facility] Comment on above: Order Comment: Speci men Type: BLOOD SPECIMENOrdering Facility: [facility] Address: [address] [place] [address] Performed By: #### 2 4323-8 ####[facility] LABCLIA [id number] [place] [address] Auditory function testson Right Ear: 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 Left Ear: Mild to severe sensorineural hearing loss above 500 Hz [facility] pete CNOVSPon 06-29-2024 CNOVSP Visit (SP) Office ([place]) CARSON MORSE ([id number]) 1955 M Date Time Provider Department 06/29/24 11:15 AM WYATT GARZA During your visit today, we recorded the following information about you: Temperature Pulse Respiration Blood pressure 97.7 degrees 60/minute 16/minute 153/90 Height 1.651 m Wyatt Garza MD 06/30/2024 9:51 PM Signed NAME: Carson Morse CLINIC NO.: [id number] DATE OF SERVICE: June 29, 2024 [facility] Some elements in this clinic note that are critical to medical decision making have been carefully reviewed and included from a prior clinic note dated: March 30, 2024 (Mirian) Additional Clinicians involved in Carson Morse's care: Dorothy Atkins Noma Dakhil CC: Head and neck cancer [...] Hepatitis C has been irradicated. PLAN: CT Neck Chest in 12/2024 Labs same day - include CBC, CMP RTC 1 week after with me to review Pursue annual scans and visits after December 2024 - HPI: CASE HISTORY: Reverse Chronological Order 06/22/2024 - CT Chest: Previously identified new pulmonary nodules have resolved suggesting infectious/inflammator y process. No new suspicious appearing pulmonary nodules. Age indeterminant L1 compression fracture. 03/23/2024 - CT Chest: New subcentimeter nodular opacities measuring less than 5 mm. Consider follow-up to complete resolution. Other subcentimeter nodular opacities measuring 7 mm, stable since 12/16/22. New healing fracture deformities of several left ribs. Borderline mediastinal lymphadenopathy, stable. 02/24/2024 - ER after being found unresponsive, woke up after being given Narcan 01/31/2024 - ER after fall due to alcohol intoxication 12/16/2023 - CT Neck/Chest: Neck: Stable appearance of the soft tissues of the neck since 12/15/2022. No evidence of recurrent soft tissue mass or significant cervical lymphadenopathy by size criteria. Chest: Stable appearance of bilateral pulmonary nodules. No new or enlarging nodules are seen. Slight interval increase in size of a [...] in the right middle lobe most likely infectious/inflammator y in etiology. Consider follow-up to complete resolution. [...] new mass or adenopathy in the neck. 12/2017 - P16 positive head and neck cancer, in remission post chemotherapy/radiation Updated Visit, June 29, 2024: Thom returns today for a follow up. CT chest reveals the new pulmonary nodules have resolved, which suggests they were inflammatory. Scan shows CADEN. Will repeat his scan in 6 months, then pursue annual monitor (more content not included)... Normal [facility] CBC W Auto Differential pane l (Bld)on 06-22-2024 Basophils (Bld) [#/Vol] 0.04 10*3/uL [facility] Basophils/100 WBC (Bld) 0.9 % [facility] Differential cell count method Nom (Bld) Auto [facility] Eosinophils (Bld) [#/Vol] 0.04 10*3/uL [facility] Eosinophils/100 WBC (Bld) 0.9 % [facility] Erythrocyte distribution width (RBC) [Ratio] 13.2 % 11.5 - 15.0 % [facility] Hematocrit (Bld) [Volume fraction] 35.9 % Low 39.0 - 51.0 % [facility] Hemoglobin (Bld) [Mass/Vol] 12.8 g/dL Low 13.0 - 17.0 g/dL [facility] Immature granulocytes (Bld) [#/Vol] [facility] Immature granulocytes/100 WBC (Bld) 0.2 % [facility] Interpretation and review of laboratory results Abnormal [facility] Lymphocytes (Bld) [#/Vol] 0.77 10*3/uL Low [facility] Lymphocytes/100 WBC (Bld) 18.2 % [facility] MCH (RBC) [Entitic mass] 32.5 pg 26.0 - 34.0 pg [facility] MCHC (RBC) [Mass/Vol] 35.7 g/dL 30.5 - 36.0 g/dL [facility] MCV (RBC) [Entitic vol] 91.1 fL 80.0 - 100.0 fL [facility] Monocytes (Bld) [#/Vol] 0.48 10*3/uL [facility] Monocytes/100 WBC (Bld) 11.4 % [facility] Neutrophils (Bld) [#/Vol] 2.88 10*3/uL [facility] Neutrophils/100 WBC (Bld) 68.4 % [facility] Nucleated RBC (Bld) [#/Vol] [facility] Nucleated RBC/100 WBC (Bld) [Ratio] 0.0 % /100 WBC [facility] Platelet mean volume (Bld) [Entitic vol] 10.2 fL 9.0 - 12.7 fL [facility] Platelets (Bld) [#/Vol] 182 10*3/uL [facility] RBC (Bld) [#/Vol] 3.94 10*6/uL Low 4.20 - 6.0 0 m/uL [facility] WBC (Bld) [#/Vol] 4.22 10*3/uL [facility] Basophils (Bld) [#/Vol] 0.04 10*3/uL Normal <0.11 [facility] Comment on above: Order Comment: Speci men Type: BLOOD SPECIMENOrdering Facility: [facility] Address: [address] [place] [address] Performed By: #### 5 7021-8 ####[facility] LABCLIA [id number] [place] [address] Basophils/100 WBC (Bld) 0.9 % Normal [facility] Comment on above: Order Comment: Speci men Type: BLOOD SPECIMENOrdering Facility: [facility] Address: [address] [place] [address] Performed By: #### 5 7021-8 ####[facility] LABCLIA [id number] [place] [address] Differential cell count method Nom (Bld) Auto Normal [facility] Comment on above: Order Comment: Speci men Type: BLOOD SPECIMENOrdering Facility: [facility] Address: [address] [place] [address] Performed By: #### 5 7021-8 ####[facility] LABCLIA [id number] [place] [address] Eosinophils (Bld) [#/Vol] 0.04 10*3/uL Normal <0.46 [facility] Comment on above: Order Comment: Speci men Type: BLOOD SPECIMENOrdering Facility: [facility] Address: [address] [place] [address] Performed By: #### 5 7021-8 ####[facility] LABCLIA [id number] [place] [address] Eosinophils/100 WBC (Bld) 0.9 % Normal [facility] Comment on above: Order Comment: Speci men Type: BLOOD SPECIMENOrdering Facility: [facility] Address: [address] [place] [address] Performed By: #### 5 7021-8 ####[facility] LABCLIA [id number] [place] [address] Erythrocyte distribution width (RBC) [Ratio] 13.2 % Normal 11.5-15.0 [facility] Comment on above: Order Comment: Speci men Type: BLOOD SPECIMENOrdering Facility: [facility] Address: [address] [place] [address] Performed By: #### 5 7021-8 ####[facility] LABCLIA [id number] [place] [address] Hematocrit (Bld) [Volume fraction] 35.9 % Low 39.0-51.0 [facility] Comment on above: Order Comment: Speci men Type: BLOOD SPECIMENOrdering Facility: [facility] Address: [address] [place] [address] Performed By: #### 5 7021-8 ####[facility] LABCLIA [id number] [place] [address] Hemoglobin (Bld) [Mass/Vol] 12.8 g/dL Low 13.0-17.0 [facility] Comment on above: Order Comment: Speci men Type: BLOOD SPECIMENOrdering Facility: [facility] Address: [address] [place] [address] Performed By: #### 5 7021-8 ####[facility] LABCLIA [id number] [place] [address] Immature granulocytes (Bld) [#/Vol] 10*3/uL Normal <0.10 [facility] Comment on above: Order Comment: Speci men Type: BLOOD SPECIMENOrdering Facility: [facility] Address: [address] [place] [address] Performed By: #### 5 7021-8 ####[facility] LABCLIA [id number] [place] [address] Immature granulocytes/100 WBC (Bld) 0.2 % Normal [facility] Comment on above: Order Comment: Speci men Type: BLOOD SPECIMENOrdering Facility: [facility] Address: [address] [place] [address] Performed By: #### 5 7021-8 ####[facility] LABCLIA [id number] [place] [address] Lymphocytes (Bld) [#/Vol] 0.77 10*3/uL Low 1.00-4.00 [facility] Comment on above: Order Comment: Speci men Type: BLOOD SPECIMENOrdering Facility: [facility] Address: [address] [place] [address] Performed By: #### 5 7021-8 ####[facility] LABCLIA [id number] [place] [address] Lymphocytes/100 WBC (Bld) 18.2 % Normal [facility] Comment on above: Order Comment: Speci men Type: BLOOD SPECIMENOrdering Facility: [facility] Address: [address] [place] [address] Performed By: #### 5 7021-8 ####[facility] LABCLIA [id number] [place] [address] MCH (RBC) [Entitic mass] 32.5 pg Normal 26.0-34.0 [facility] Comment on above: Order Comment: Speci men Type: BLOOD SPECIMENOrdering Facility: [facility] Address: [address] [place] [address] Performed By: #### 5 7021-8 ####[facility] LABCLIA [id number] [place] [address] MCHC (RBC) [Mass/Vol] 35.7 g/dL Normal 30.5-36.0 [facility] Comment on above: Order Comment: Speci men Type: BLOOD SPECIMENOrdering Facility: [facility] Address: [address] [place] [address] Performed By: #### 5 7021-8 ####[facility] LABIA [id number] [place] [address] MCV (RBC) [Entitic vol] 91.1 fL Normal 80.0-100.0 [facility] Comment on above: Order Comment: Speci men Type: BLOOD SPECIMENOrdering Facility: [facility] Address: [address] [place] [address] Performed By: #### 5 7021-8 ####[facility] LABIA [id number] [place] [address] Monocytes (Bld) [#/Vol] 0.48 10*3/uL Normal <0.87 [facility] Comment on above: Order Comment: Speci men Type: BLOOD SPECIMENOrdering Facility: [facility] Address: [address] [place] [address] Performed By: #### 5 7021-8 ####[facility] LABCLIA [id number] [place] [address] Monocytes/100 WBC (Bld) 11.4 % Normal [facility] Comment on above: Order Comment: Speci men Type: BLOOD SPECIMENOrdering Facility: [facility] Address: [address] [place] [address] Performed By: #### 5 7021-8 ####[facility] LABCLIA [id number] [place] [address] Neutrophils (Bld) [#/Vol] 2.88 10*3/uL Normal 1.45-7.50 [facility] Comment on above: Order Comment: Speci men Type: BLOOD SPECIMENOrdering Facility: [facility] Address: [address] [place] [address] Performed By: #### 5 7021-8 ####[facility] LABCLIA [id number] [place] [address] Neutrophils/100 WBC (Bld) 68.4 % Normal [facility] Comment on above: Order Comment: Speci men Type: BLOOD SPECIMENOrdering Facility: [facility] Address: [address] [place] [address] Performed By: #### 5 7021-8 ####[facility] LABCLIA [id number] [place] [address] Nucleated RBC (Bld) [#/Vol] 10*3/uL Normal <0.01 [facility] Comment on above: Order Comment: Speci men Type: BLOOD SPECIMENOrdering Facility: [facility] Address: [address] [place] [address] Performed By: #### 5 7021-8 ####[facility] LABCLIA [id number] [place] [address] Nucleated RBC/100 WBC (Bld) [Ratio] 0.0 /100 WBC Normal [facility] Comment on above: Order Comment: Speci men Type: BLOOD SPECIMENOrdering Facility: [facility] Address: [address] [place] [address] Performed By: #### 5 7021-8 ####[facility] LABCLIA [id number] [place] [address] Platelet mean volume (Bld) [Entitic vol] 10.2 fL Normal 9.0-12.7 [facility] Comment on above: Order Comment: Speci men Type: BLOOD SPECIMENOrdering Facility: [facility] Address: [address] [place] [address] Performed By: #### 5 7021-8 ####[facility] LABCLIA [id number] [place] [address] Platelets (Bld) [#/Vol] 182 10*3/uL Normal 150-400 [facility] Comment on above: Order Comment: Speci men Type: BLOOD SPECIMENOrdering Facility: [facility] Address: [address] [place] [address] Performed By: #### 5 7021-8 ####[facility] LABCLIA [id number] [place] [address] RBC (Bld) [#/Vol] 3.94 10*6/uL Low 4.20-6.00 [facility] Comment on above: Order Comment: Speci men Type: BLOOD SPECIMENOrdering Facility: [facility] Address: [address] [place] [address] Performed By: #### 5 7021-8 ####[facility] LABCLIA [id number] [place] [address] WBC (Bld) [#/Vol] 4.22 10*3/uL Normal 3.70-11.00 [facility] Comment on above: Order Comment: Speci men Type: BLOOD SPECIMENOrdering Facility: [facility] Address: [address] [place] [address] Performed By: #### 5 7021-8 ####[facility] LABCLIA [id number] [place] [address] CT CHEST W IVCONon 4 CT CHEST W IVCON * * *Final Report* * * DATE OF EXAM: Jun 22 2024 9:02AM [facility] 0539 - CT CHEST W IVCON / PROCEDURE REASON: multiple diagnoses * * * * Physician Interpretation * * * * RESULT: EXAMINATION: CHEST CT WITH CONTRAST CLINICAL HISTORY: History of head and neck cancer Lung nodules Technique: Spiral CT acquisition of the chest from the thoracic inlet to the upper abdomen following IV contrast. MQ: CTCWR_5 Contrast: 50 mL Omnipaque [address] Dose-Length Product: 188 mGy*cm CT Dose Reduction Employed: Automated exposure control (AEC) Comparison: 03/23/2024 and 01/05/2024 RESULT: Lines, tubes, and devices: None. Lung parenchyma and airways: Retained secretions in the central airways. Moderate centrilobular emphysema. Previous identified new pulmonary nodules have resolved. Unchanged small pulmonary nodules for example a 2 mm left upper lobe nodule (image 69). 6 mm right middle lobe nodule (image 135). Pleural space: No pleural effusion or pneumothorax. Lower neck, lymph nodes, and mediastinum: Mildly enlarged mediastinal lymph nodes for example a 1.2 cm right paratracheal node (image 65). 1.2 cm left paratracheal node (image 65). Heart, pericardium, and thoracic vessels: The heart is normal in size. No pericardial effusion. The thoracic aorta and main pulmonary artery are normal in caliber. Atherosclerotic calcifications of the thoracic aorta and coronary arteries. Bones/Soft Tissues: New L1 compression fracture compared to prior but is age indeterminate. No aggressive osseous lesions. Remote left-sided rib fractures. Upper abdomen: Visualized upper abdomen is grossly unremarkable. Latex Caster (topogram) images: Unremarkable. IMPRESSION: Previously identified new pulmonary nodules have resolved suggesting infectious/inflammator y process. No new suspicious appearing pulmonary nodules. Age indeterminant L1 compression fracture. Transcribe Date/Time: Jun 22 2024 1:18P Dictated by: TY ALBRECHT MD This examination was interpreted and the report reviewed and electronically signed by: TY ALBRECHT MD on Jun 22 2024 1:42PM EST Thank you for allowing us to participate in the care of your patient. Should there be any questions regarding this interpretation, please call [phone]. If you are unable to reach us at the number above, please feel free to contact [facility] eRadiology at [phone]. [id number] Normal [facility] CT Chest W contrast Javier IMPRESSION: Previously identified new pulmonary nodules have resolved suggesting infectious/inflammator y process. No new suspicious appearing pulmonary nodules. Age indeterminant L1 compression fracture. Transcribe Date/Time: Jun 22 2024 1:18P Dictated by: TY ALBRECHT MD This examination was interpreted and the report reviewed and electronically signed by: TY ALBRECHT MD on Jun 22 2024 1:42PM EST Thank you for allowing us to participate in the care of your patient. Should there be any questions regarding this interpretation, please call [phone]. If you are unable to reach us at the number above, please feel free to contact [facility]iology at [phone]. DIVISION OF RADIOLOGY * * *Final Report* * * DATE OF EXAM: Jun 22 2024 9:02AM [facility] 0539 - CT CHEST W IVCON / PROCEDURE REASON: multiple diagnoses * * * * Physician Interpretation * * * * RESULT: EXAMINATION: CHEST CT WITH CONTRAST CLINICAL HISTORY: History of head and neck cancer Lung nodules Technique: Spiral CT acquisition of the chest from the thoracic inlet to the upper abdomen following IV contrast. MQ: CTCWR_5 Contrast: 50 mL Omnipaque [address] Dose-Length Product: 188 mGy*cm CT Dose Reduction Employed: Automated exposure control (AEC) Comparison: 03/23/2024 and 01/05/2024 RESULT: Lines, tubes, and devices: None. Lung parenchyma and airways: Retained secretions in the central airways. Moderate centrilobular emphysema. Previous identified new pulmonary nodules have resolved. Unchanged small pulmonary nodules for example a 2 mm left upper lobe nodule (image 69). 6 mm right middle lobe nodule (image 135). Pleural space: No pleural effusion or pneumothorax. Lower neck, lymph nodes, and mediastinum: Mildly enlarged mediastinal lymph nodes for example a 1.2 cm right paratracheal node (image 65). 1.2 cm left paratracheal node (image 65). Heart, pericardium, and thoracic vessels: The heart is normal in size. No pericardial effusion. The thoracic aorta and main pulmonary artery are normal in caliber. Atherosclerotic calcifications of the thoracic aorta and coronary arteries. Bones/Soft Tissues: New L1 compression fracture compared to prior but is age indeterminate. No aggressive osseous lesions. Remote left-sided rib fractures. Upper abdomen: Visualized upper abdomen is grossly unremarkable. Latex Caster (topogram) images: Unremarkable. DIVISION OF RADIOLOGY [facility] * * *Final Report* * * DATE OF EXAM: Jun 22 2024 9:02AM [facility] 0539 - CT CHEST W IVCON / PROCEDURE REASON: multiple diagnoses * * * * Physician Interpretation * * * * RESULT: EXAMINATION: CHEST CT WITH CONTRAST CLINICAL HISTORY: History of head and neck cancer Lung nodules Technique: Spiral CT acquisition of the chest from the thoracic inlet to the upper abdomen following IV contrast. MQ: CTCWR_5 Contrast: 50 mL Omnipaque [address] Dose-Length Product: 188 mGy*cm CT Dose Reduction Employed: Automated exposure control (AEC) Comparison: 03/23/2024 and 01/05/2024 RESULT: Lines, tubes, and devices: None. Lung parenchyma and airways: Retained secretions in the central airways. Moderate centrilobular emphysema. Previous identified new pulmonary nodules have resolved. Unchanged small pulmonary nodules for example a 2 mm left upper lobe nodule (image 69). 6 mm right middle lobe nodule (image 135). Pleural space: No pleural effusion or pneumothorax. Lower neck, lymph nodes, and mediastinum: Mildly enlarged mediastinal lymph nodes for example a 1.2 cm right paratracheal node (image 65). 1.2 cm left paratracheal node (image 65). Heart, pericardium, and thoracic vessels: The heart is normal in size. No pericardial effusion. The thoracic aorta and main pulmonary artery are normal in caliber. Atherosclerotic calcifications of the thoracic aorta and coronary arteries. Bones/Soft Tissues: New L1 compression fracture compared to prior but is age indeterminate. No aggressive osseous lesions. Remote left-sided rib fractures. Upper abdomen: Visualized upper abdomen is grossly unremarkable. Latex Caster (topogram) images: Unremarkable. IMPRESSION IMPRESSION: Previously identified new pulmonary nodules have resolved suggesting infectious/inflammator y process. No new suspicious appearing pulmonary nodules. Age indeterminant L1 compression fracture. Transcribe Date/Time: Jun 22 2024 1:18P Dictated by: TY ALBRECHT MD This examination was interpreted and the report reviewed and electronically signed by: TY ALBRECHT MD on Jun 22 2024 1:42PM EST Thank you for allowing us to participate in the care of your patient. Should there be any questions regarding this interpretation, please call [phone]. If you are unable to reach us at the number above, please feel free to contact [facility]iology at [phone]. [facility] Radiology Study observation (narrative) [facility] CT Chest W contrast IVOrdere d By: [facility] Provider on 06-22-2024 [facility] Comprehensive metabolic 2000 panelOrdered By: Les Luke on 06-22-2024 Albumin [Mass/Vol] 5.1 g/dL High 3.9 - 4.9 g/dL [facility] ALP [Catalytic activity/Vol] 88 U/L 38 - 113 U/L [facility] ALT [Catalytic activity/Vol] 15 U/L 10 - 54 U/L [facility] Anion gap [Moles/Vol] 9 mmol/L 8 - 15 mmol/L [facility] AST [Catalytic activity/Vol] 33 U/L 14 - 40 U/L [facility] Bilirubin [Mass/Vol] 1.1 mg/dL 0.2 - 1.3 mg/dL [facility] Calcium [Mass/Vol] 10.3 mg/dL High 8.5 - 10. 2 mg/dL [facility] Chloride [Moles/Vol] 97 mmol/L Low 98 - 107 mmol/L [facility] CO2 [Moles/Vol] 26 mmol/L 22 - 30 mmol/L [facility] Creatinine [Mass/Vol] 0.96 mg/dL 0.73 - 1.22 mg/dL [facility] GFR/1.73 sq M.predicted among non-blacks MDRD (S/P/Bld) [Vol rate/Area] 87 mL/min/{1.73_m2} - PINF [facility] Comment on above: Estimated Glomerular Filtration Rate (eGFR) is calculated using the 2020 CKD-EPI creatinine equation. This equation utilizes serum creatinine, sex, and age as parameters. The creatinine assay has traceable calibration to isotope dilution-mass spectrometry. Refer to KDIGO guidelines for clinical interpretation. In patients with unstable renal function, e.g. those with acute kidney injury, the eGFR may not accurately reflect actual GFR. Glucose [Mass/Vol] 104 mg/dL High 74 - 99 mg/dL [facility] Comment on above: The [place] Diab[employer] s Association (ADA) provides guidance for cutoff values [...] Standards of Medical Care in Diabetes 2016, [place] [employer]. Diabetes Care. 2016.39(Suppl 1). Interpretation and review of laboratory results Abnormal [facility] Potassium [Moles/Vol] 5.0 mmol/L 3.7 - 5.1 mmol/L [facility] Protein [Mass/Vol] 7.9 g/dL 6.3 - 8.0 g/dL [facility] Sodium [Moles/Vol] 132 mmol/L Low 136 - 144 mmol/L [facility] Urea nitrogen [Mass/Vol] 11 mg/dL 9 - 24 mg/dL [facility] Comprehensive metabolic 2000 panelon 06-22-2024 Albumin [Mass/Vol] 5.1 g/dL High 3.9-4.9 [facility] Comment on above: Order Comment: Arturi yanelis Type: BLOOD SPECIMENOrdering Facility: [facility] Address: [address] [place] [address] Performed By: #### 2 4323-8 ####[facility] LABCLIA [id number] [place] [address] ALP [Catalytic activity/Vol] 88 U/L Normal 38-113 [facility] Comment on above: Order Comment: Arturi men Type: BLOOD SPECIMENOrdering Facility: [facility] Address: [address] [id number] Performed By: #### 2 4323-8 ####[facility] LABCLIA [id number] [place] [address] ALT [Catalytic activity/Vol] 15 U/L Normal 10-54 [facility] Comment on above: Order Comment: Speci men Type: BLOOD SPECIMENOrdering Facility: [facility] Address: [address] [place] [address] Performed By: #### 2 4323-8 ####[facility] LABCLIA [id number] [place] [address] Anion gap [Moles/Vol] 9 mmol/L Normal 8-15 [facility] Comment on above: Order Comment: Speci men Type: BLOOD SPECIMENOrdering Facility: [facility] Address: [address] [place] [address] Performed By: #### 2 4323-8 ####[facility] LABCLIA [id number] [place] [address] AST [Catalytic activity/Vol] 33 U/L Normal 14-40 [facility] Comment on above: Order Comment: Speci men Type: BLOOD SPECIMENOrdering Facility: [facility] Address: [address] [place], [place] [address] Performed By: #### 2 4323-8 ####[facility] LABCLIA [id number] [place] [address] Bilirubin [Mass/Vol] 1.1 mg/dL Normal 0.2-1.3 [facility] Comment on above: Order Comment: Speci men Type: BLOOD SPECIMENOrdering Facility: [facility] Address: [address] [place] [address] Performed By: #### 2 4323-8 ####[facility] LABCLIA [id number] [place] [address] Calcium [Mass/Vol] 10.3 mg/dL High 8.5-10.2 [facility] Comment on above: Order Comment: Speci men Type: BLOOD SPECIMENOrdering Facility: [facility] Address: [address] [place] [address] Performed By: #### 2 4323-8 ####[facility] LABCLIA [id number] [place] [address] Chloride [Moles/Vol] 97 mmol/L Low 98-107 [facility] Comment on above: Order Comment: Speci men Type: BLOOD SPECIMENOrdering Facility: [facility] Address: [address] [place] [address] Performed By: #### 2 4323-8 ####[facility] LABCLIA [id number] [place] [address] CO2 [Moles/Vol] 26 mmol/L Normal 22-30 [facility] Comment on above: Order Comment: Speci men Type: BLOOD SPECIMENOrdering Facility: [facility] Address: [address] [place] [address] Performed By: #### 2 4323-8 ####[facility] LABCLIA [id number] [place] [address] Creatinine [Mass/Vol] 0.96 mg/dL Normal 0.73-1.22 [facility] Comment on above: Order Comment: Speci men Type: BLOOD SPECIMENOrdering Facility: [facility] Address: [address] [place] [address] Performed By: #### 2 4323-8 ####[facility] LABCLIA [id number] [place] [address] Creatinine and Glomerular filtration rate.predicted panel (S/P/Bld) 87 mL/min/1.73m??? Normal >=60 [facility] Comment on above: Order Comment: Speci men Type: BLOOD SPECIMENOrdering Facility: [facility] Address: [address] [place] [address] Result Comment: Lulú mated Glomerular Filtration Rate [...] actual GFR. Performed By: #### 2 4323-8 ####[facility] LABCLIA [id number] [place] [address] Glucose [Mass/Vol] 104 mg/dL High 74-99 [facility] Comment on above: Order Comment: Speci men Type: BLOOD SPECIMENOrdering Facility: [facility] Address: [address] [place] [address] Result Comment: The [place] Diabetes Association (ADA) provides guidance for cutoff [...] Standards of Medical Care in Diabetes 2016, [place] Diabetes Association. Diabetes Care. 2016.39(Suppl 1). Performed By: #### 2 4323-8 ####[facility] LABCLIA [id number] [place] [address] Potassium [Moles/Vol] 5.0 mmol/L Normal 3.7-5.1 [facility] Comment on above: Order Comment: Speci men Type: BLOOD SPECIMENOrdering Facility: [facility] Address: [address] [place] [address] Performed By: #### 2 4323-8 ####[facility] LABCLIA [id number] [place] [address] Protein [Mass/Vol] 7.9 g/dL Normal 6.3-8.0 [facility] Comment on above: Order Comment: Speci men Type: BLOOD SPECIMENOrdering Facility: [facility] Address: [address] [place], [place] [address] Performed By: #### 2 4323-8 ####[facility] LABCLIA [id number] [place] [address] Sodium [Moles/Vol] 132 mmol/L Low 136-144 [facility] Comment on above: Order Comment: Speci men Type: BLOOD SPECIMENOrdering Facility: [facility] Address: [address] [place], [place] [address] Performed By: #### 2 4323-8 ####[facility] LABCLIA [id number] [place] [address] Urea nitrogen [Mass/Vol] 11 mg/dL Normal 9-24 [facility] Comment on above: Order Comment: Speci men Type: BLOOD SPECIMENOrdering Facility: [facility] Address: [address] [place], [place] [address] Performed By: #### 2 4323-8 ####[facility] LABCLIA [id number] [place] [address] Abe 06-12-2024 CNPN Telephone (MYLA) CARSON MORSE ([id number]) 1955 M Date Time Provider Department 06/12/24 HALIMA NIXON During your visit today, we recorded the following information about you: Emily Armstrong RN 06/12/2024 1:22 PM Addendum ----- Message from Halima Nixon MD sent at 06/10/2024 7:07 PM EDT ----- US showed fatty liver There is questionable minimal nodularity on the contour of the liver which may reflect mild/early cirrhosis Multiple small gallbladder polyps, the largest of which measures 0.4 cm Repeat US with AFP in 6 months Order Fibroscan Halima Nixon MD Reviewed test results Called and spoke to patient regarding test results and recommendation from Dr. Leon Lund, Orders submitted for Fibroscan (now), AFP 6 months, and standing order for repeat US Q 6 months. Please review and sign Thanks, Emily Armstrong RN Allergies As of Date: 06/12/2024 (No Known Allergies) Date Reviewed: 03/30/2024 Reviewed by: Felipa Sosa MA - Fully Assessed Primary Visit Diagnosis:Fatty liver [K76.0] Order(s):ALPHA FETOPROTEIN [SQAFP] Order #: [id number] FUTURE US ABD RIGHT UPPER QUADRANT [[id number]] Order #: [id number] FUTURE DDI VIBRATION CONTROLLED TRANSIENT ELASTOGRAPHY (VCTE) [[id number]] Order #: [id number] Prescriptions as of 06/19/2024 - levoFLOXacin (LEVAQUIN) 750 mg tablet Take 750 mg by mouth once daily. - tamsulosin (FLOMAX) 0.4 mg Take 1 capsule by mouth every afternoon. 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] 02/27/2018 Severe protein-calorie malnutrition (HCC) [E43] 02/27/2018 Myelosuppression [D75.89] 03/24/2018 Malignant neoplasm of head, face and neck (HCC)*12/18/2020 Lung nodules [R91.8] 12/18/2020 Encounter Status:Closed by EMILY ARMSTRONG on 06/19/24 [facility] US ABD RIGHT UPPER QUADRANTo n 05-28-2024 US ABD RIGHT UPPER QUADRANT * * *Final Report* * * DATE OF EXAM: May 28 2024 2:28PM LNU 1032 - US ABD RIGHT UPPER QUADRANT / PROCEDURE REASON: multiple diagnoses * * * * Physician Interpretation * * * * EXAMINATION: RIGHT UPPER QUADRANT ULTRASOUND CLINICAL HISTORY: Abnormal liver function tests. Chronic hepatitis C. TECHNIQUE: Sonography of the right upper quadrant was performed. Images were obtained and stored in a permanent archive. MQ: URUQ_2 COMPARISON: Abdominal ultrasound from 02/11/2021 RESULT: Pancreas: Normal sonographic appearance. Portions obscured: tail Liver: Echotexture: Normal, homogeneous. Echogenicity: Increased Surface contour: Questionable minimal nodularity. Lesions: None. Biliary: No intrahepatic biliary duct dilation. CBD: 0.4 cm at the hilum. Gallbladder: Normal caliber -Contents: No cholelithiasis -Wall: Multiple small gallbladder polyps, the largest of which measures 0.4 cm. -Other: No pericholecystic fluid. Right Kidney: No hydronephrosis. Ascites: None. IMPRESSION: 1. Increase echogenicity the liver, likely secondary to hepatic steatosis. There is questionable minimal nodularity on the contour of the liver which may reflect mild/early cirrhosis. Head Shipper: ALEJO Transcribe Date/Time: May 28 2024 7:30P Dictated by : IVANNA CROFT MD This examination was interpreted and the report reviewed and electronically signed by: IVANNA CROFT MD on May 28 2024 7:33PM EST [id number] Normal [facility] US Abdomen RUQon 05-28-2024 IMPRESSION: 1. Increase echogenicity the liver, likely secondary to hepatic steatosis. There is questionable minimal nodularity on the contour of the liver which may reflect mild/early cirrhosis. Head Shipper: ALEJO Transcribe Date/Time: May 28 2024 7:30P Dictated by : IVANNA CROFT MD This examination was interpreted and the report reviewed and electronically signed by: IVANNA CROFT MD on May 28 2024 7:33PM EST DIVISION OF RADIOLOGY * * *Final Report* * * DATE OF EXAM: May 28 2024 2:28PM LNU 1032 - US ABD RIGHT UPPER QUADRANT / PROCEDURE REASON: multiple diagnoses * * * * Physician Interpretation * * * * EXAMINATION: RIGHT UPPER QUADRANT ULTRASOUND CLINICAL HISTORY: Abnormal liver function tests. Chronic hepatitis C. TECHNIQUE: Sonography of the right upper quadrant was performed. Images were obtained and stored in a permanent archive. MQ: URUQ_2 COMPARISON: Abdominal ultrasound from 02/11/2021 RESULT: Pancreas: Normal sonographic appearance. Portions obscured: tail Liver: Echotexture: Normal, homogeneous. Echogenicity: Increased Surface contour: Questionable minimal nodularity. Lesions: None. Biliary: No intrahepatic biliary duct dilation. CBD: 0.4 cm at the hilum. Gallbladder: Normal caliber -Contents: No cholelithiasis -Wall: Multiple small gallbladder polyps, the largest of which measures 0.4 cm. -Other: No pericholecystic fluid. Right Kidney: No hydronephrosis. Ascites: None. DIVISION OF RADIOLOGY [facility]28/[facility]24 * * *Final Report* * * DATE OF EXAM: May 28 2024 2:28PM LNU 1032 - US ABD RIGHT UPPER QUADRANT / PROCEDURE REASON: multiple diagnoses * * * * Physician Interpretation * * * * EXAMINATION: RIGHT UPPER QUADRANT ULTRASOUND CLINICAL HISTORY: Abnormal liver function tests. Chronic hepatitis C. TECHNIQUE: Sonography of the right upper quadrant was performed. Images were obtained and stored in a permanent archive. MQ: URUQ_2 COMPARISON: Abdominal ultrasound from 02/11/2021 RESULT: Pancreas: Normal sonographic appearance. Portions obscured: tail Liver: Echotexture: Normal, homogeneous. Echogenicity: Increased Surface contour: Questionable minimal nodularity. Lesions: None. Biliary: No intrahepatic biliary duct dilation. CBD: 0.4 cm at the hilum. Gallbladder: Normal caliber -Contents: No cholelithiasis -Wall: Multiple small gallbladder polyps, the largest of which measures 0.4 cm. -Other: No pericholecystic fluid. Right Kidney: No hydronephrosis. Ascites: None. IMPRESSION IMPRESSION: 1. Increase echogenicity the liver, likely secondary to hepatic steatosis. There is questionable minimal nodularity on the contour of the liver which may reflect mild/early cirrhosis. Head Shipper: ALEJO Transcribe Date/Time: May 28 2024 7:30P Dictated by : IVANNA CROFT MD This examination was interpreted and the report reviewed and electronically signed by: IVANNA CROFT MD on May 28 2024 7:33PM EST [facility] Radiology Study observation (narrative) [facility] US Abdomen RUQOrdered By: Cc f Provider on 05-28-2024 [facility] Abe 05-24-2024 CNPN Telephone (MYLA) CARSON MORSE ([id number]) 1955 M Date Time Provider Department 05/24/24 HALIMA NIXON During your visit today, we recorded the following information about you: Emily Armstrong RN 05/24/2024 9:56 AM Addendum ----- Message from Halima Nixon MD sent at 05/23/2024 2:56 PM EDT ----- Negative hep C RNA consistent with sustained response Repeat in one year Reviewed test results Pt read result message from Dr. Nixon via [employer]. Called and spoke to patient regarding test results and recommendation from Dr. Nixon Pt state dUS is sched for Mon at [place] Demonstrated understanding Dr. Lund, Orders submitted for repeat Hep C RNA Please review and sign Thanks, Emily Armstrong RN Allergies As of Date: 05/24/2024 (No Known Allergies) Date Reviewed: 03/30/2024 Reviewed by: Felipa Sosa MA - Fully Assessed Primary Visit Diagnosis:Chronic hepatitis C without hepatic coma (HCC) [B18.2] Order(s):HEPATITIS C RNA QUANTIFICATION BY PCR, PLASMA/SERUM [SQHCQPCR] Order #: [id number] FUTURE Prescriptions as of 06/11/2024 - levoFLOXacin (LEVAQUIN) 750 mg tablet Take 750 mg by mouth once daily. - tamsulosin (FLOMAX) 0.4 mg Take 1 capsule by mouth every afternoon. 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 [facility] Comment on above: Order Comment: Speci men Type: BLOOD SPECIMENOrdering Facility: [facility] Address: [address] [place] [address] Performed By: #### 1 1011-4 ####[facility] LABCLIA [id number] [address] [place] [facility] CNPNon 05-17-2024 CNPN Telephone (GASTNO) CARSON MORSE ([id number]) 1955 M Date Time Provider Department 05/17/24 HALIMA NIXON During your visit today, we recorded the following information about you: Emily Armstrong RN 05/17/2024 4:00 PM Addendum ----- Message from Halima Nixon MD sent at 05/17/2024 1:24 PM EDT ----- This patient needs RUQ US and HCV RNA ND Dr. Nixon, Please review and sign orders, Thanks, NOLAN Ansari Kaytee, RN 05/21/2024 10:19 AM Signed Called and updated pt on scheduling US Phone number provided for scheduling Also instructed to complete lab draw at [facility] facility Pt demonstrated understanding Emily Armstrong RN Allergies As of Date: 05/17/2024 (No Known Allergies) Date Reviewed: 03/30/2024 Reviewed by: Felipa Sosa MA - Fully Assessed Primary Visit Diagnosis:Chronic hepatitis C without hepatic coma (HCC) [B18.2] Other Visit Diagnosis:Abnormal LFTs [R79.89] Order(s):US ABD RIGHT UPPER QUADRANT [[id number]] Order #: [id number] FUTURE HEPATITIS C RNA QUANTIFICATION BY PCR, PLASMA/SERUM [SQHCQPCR] Order #: [id number] FUTURE Prescriptions as of 05/21/2024 - levoFLOXacin (LEVAQUIN) 750 mg tablet Take 750 mg by mouth once daily. - tamsulosin (FLOMAX) 0.4 mg Take 1 capsule by mouth every afternoon. 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 * Hoarse voice quality [R49.0] Mucositis due to radiation therapy [K12.33] 02/27/2018 Severe protein-calorie malnutrition (HCC) [E43] 02/27/2018 Myelosuppression [D75.89] 03/24/2018 Malignant neoplasm of head, face and neck (HCC)*12/18/2020 Lung nodules [R91.8] 12/18/2020 Encounter Status:Closed by EMILY ARMSTRONG on 05/21/24 [facility] CNOVSPon 03-30-2024 CNOVS Visit (SP) Office (SHANI) CARSON MORSE ([id number]) 1955 M Date Time Provider Department 03/30/24 2:45 PM WYATT GARZA During your visit today, we recorded the following information about you: Temperature Pulse Respiration Blood pressure 97.2 degrees 82/minute 16/minute 129/79 Weight Height 64 kg 1.651 m Wyatt Garza MD 04/01/2024 9:31 AM Signed NAME: Carson Morse CLINIC NO.: [id number] DATE OF SERVICE: March 30, 2024 ([facility]) Some elements in this clinic note that are critical to medical decision making have been carefully reviewed and included from a prior clinic note dated: December 19, 2023 (rosa m) Additional Clinicians involved in Carson Morse's care: Dorothy Baez Noma Dakhil CC: Head and neck [...] C has been irradicated. PLAN: CT Chest with labs in 3 months RTC 1 week after to review If CT Chest clear then pursue routine annual visits due December 2024 CT Neck Chest in 12/2024 months labs same day include CBC, CMP RTC 1 week after with me to review - HPI: CASE HISTORY: Reverse Chronological Order 03/23/2024 - CT Chest: New subcentimeter nodular opacities measuring less than 5 mm. Consider follow-up to complete resolution. Other subcentimeter nodular opacities measuring 7 mm, stable since 12/16/22. New healing fracture deformities of several left ribs. Borderline mediastinal lymphadenopathy, stable. 02/24/2024 - ER after being found unresponsive, woke up after being given Narcan 01/31/2024 - ER after fall due to alcohol intoxication 12/16/2023 - CT Neck/Chest: Neck: Stable appearance of the soft tissues of the neck since 12/15/2022. No evidence of recurrent soft tissue mass or significant cervical lymphadenopathy by size criteria. Chest: Stable appearance of bilateral pulmonary nodules. No new or enlarging nodules are seen. Slight interval increase in size of a [...] in the right middle lobe most likely infectious/inflammator y in etiology. Consider follow-up to complete resolution. [...] new mass or adenopathy in the neck. 12/2017 - P16 positive head and neck cancer, in remission post chemotherapy/radiation Updated Visit, March 30, 2024: Thom returns today for a follow up. Recent CT scan shows a new 5mm nodule that we will continue monitoring. He is a current smoker, which may be the cause of the new nodule. He just had cataract surgery. He notes his strength is diminishing now that he is getting older. Updated Visit, December 19, 2023: Thom returns today, he has (more content not included)... Normal [facility] CREATININE BLDOrdered By: Yanni Carrizales on 03-23-2024 Creatinine [Mass/Vol] 0.84 mg/dL 0.73 - 1.22 mg/dL [facility] GFR/1.73 sq M.predicted among non-blacks MDRD (S/P/Bld) [Vol rate/Area] 96 mL/min/{1.73_m2} - PINF [facility] Comment on above: Estimated Glomerular Filtration Rate (eGFR) is calculated using the 2020 CKD-EPI creatinine equation. This equation utilizes serum creatinine, sex, and age as parameters. The creatinine assay has traceable calibration to isotope dilution-mass spectrometry. Refer to KDIGO guidelines for clinical interpretation. In patients with unstable renal function, e.g. those with acute kidney injury, the eGFR may not accurately reflect actual GFR. Interpretation and review of laboratory results Normal [facility] CREATININE BLDon 03-23-2024 Creatinine [Mass/Vol] 0.84 mg/dL Normal 0.73-1.22 [facility] Comment on above: Order Comment: Gretel hilario Type: BLOOD SPECIMENOrdering Facility: [facility] Address: [address] [place] [address] Performed By: #### C RET1 ####[facility] LABCLIA [id number] [place] [address] Creatinine and Glomerular filtration rate.predicted panel (S/P/Bld) 96 mL/min/1.73m??? Normal >=60 [facility] Comment on above: Order Comment: Gretel hilario Type: BLOOD SPECIMENOrdering Facility: [facility] Address: [address] [place] [address] Result Comment: Lulú mated Glomerular Filtration Rate [...] accurately reflect actual GFR. Performed By: #### C RET1 ####[facility] LABCLIA [id number] [place] [address] CT CHEST W IVCONon 4 CT CHEST W IVCON * * *Final Report* * * DATE OF EXAM: Mar 23 2024 8:49AM [facility] 0539 - CT CHEST W IVCON / PROCEDURE REASON: multiple diagnoses * * * * Physician Interpretation * * * * RESULT: EXAMINATION: CHEST CT WITH CONTRAST CLINICAL HISTORY: Lymphadenopathy, chest or axilla head and neck cancer Technique: Spiral CT acquisition of the chest from the thoracic inlet to the upper abdomen following IV contrast. MQ: CTCW_6 Contrast: 50 mL Omnipaque [address] Radiation dose: Integrated Dose-length product (DLP) for this visit = 189 mGy*cm CT Dose Reduction Employed: Automated exposure control (AEC) Comparison: 12/16/23 RESULT: Limitations: Mild motion artifact.. Lines, tubes, and devices: None. Lung parenchyma and airways: Streaky scarring/discoid atelectasis is noted in the bilateral lower lobes, increased. Mild emphysematous changes of the lungs. New subcentimeter nodular opacities measuring less than 5 mm in the right upper lobe (4:54, 83, 87, 92), right middle lobe (4:116), right lower lobe (4:123, 129, 136), left upper lobe (4:60). Subcentimeter nodular opacities measuring up to 7 mm, stable. For example: Right middle lobe (4:125) Left upper lobe (4:69) The central airways are patent. Pleural space: No pleural effusion. No pleural thickening. Lower neck, lymph nodes, and mediastinum: The imaged thyroid gland is normal. Borderline enlarged left paratracheal lymphadenopathy measuring 1.0 cm short axis (3:6 9), previously 1.1 cm, stable. Additional subcentimeter mediastinal lymph nodes are stable. Heart, pericardium, and thoracic vessels: The thoracic aorta and main pulmonary artery are normal in caliber. The cardiac chambers are normal in size. Atherosclerotic coronary artery calcifications are noted. No pericardial effusion or thickening. Bones and soft tissues: There are new healing fracture deformities of the left lateral eighth, ninth, tenth ribs. Upper abdomen: Left adrenal gland is incompletely visualized. No evidence of an adrenal mass in the visualized [id number]. Fat-containing epigastric anterior abdominal hernia.. Latex Caster (topogram) images: No additional findings. IMPRESSION: 1. New subcentimeter nodular opacities measuring less than 5 mm. Consider follow-up to complete resolution. 2. Other subcentimeter nodular opacities measuring 7 mm, stable since 12/16/28. 3. New healing fracture deformities of several left ribs. 4. Borderline mediastinal lymphadenopathy, stable. Transcribe Date/Time: Mar 23 2024 10:10A Dictated by: ZANE WEAVER MD This examination was interpreted and the report reviewed and electronically signed by: ZANE WEAVER MD on Mar 23 2024 10:40AM EST Thank you for allowing us to participate in the care of your patient. Should there be any questions regarding this interpretation, please call [phone]. If you are unable to reach us at the number above, please feel free to contact [facility] eRadiology at [phone]. [id number] Normal [facility] CT Chest W contrast Javier IMPRESSION: 1. New subcentimeter nodular opacities measuring less than 5 mm. Consider follow-up to complete resolution. 2. Other subcentimeter nodular opacities measuring 7 mm, stable since 12/16/28. 3. New healing fracture deformities of several left ribs. 4. Borderline mediastinal lymphadenopathy, stable. Transcribe Date/Time: Mar 23 2024 10:10A Dictated by: ZANE WEAVER MD This examination was interpreted and the report reviewed and electronically signed by: ZANE WEAVER MD on Mar 23 2024 10:40AM EST Thank you for allowing us to participate in the care of your patient. Should there be any questions regarding this interpretation, please call [phone]. If you are unable to reach us at the number above, please feel free to contact [facility] at [phone]. DIVISION OF RADIOLOGY * * *Final Report* * * DATE OF EXAM: Mar 23 2024 8:49AM [facility] 0539 - CT CHEST W IVCON / PROCEDURE REASON: multiple diagnoses * * * * Physician Interpretation * * * * RESULT: EXAMINATION: CHEST CT WITH CONTRAST CLINICAL HISTORY: Lymphadenopathy, chest or axilla head and neck cancer Technique: Spiral CT acquisition of the chest from the thoracic inlet to the upper abdomen following IV contrast. MQ: CTCW_6 Contrast: 50 mL Omnipaque [address] Radiation dose: Integrated Dose-length product (DLP) for this visit = 189 mGy*cm CT Dose Reduction Employed: Automated exposure control (AEC) Comparison: 12/16/23 RESULT: Limitations: Mild motion artifact.. Lines, tubes, and devices: None. Lung parenchyma and airways: Streaky scarring/discoid atelectasis is noted in the bilateral lower lobes, increased. Mild emphysematous changes of the lungs. New subcentimeter nodular opacities measuring less than 5 mm in the right upper lobe (4:54, 83, 87, 92), right middle lobe (4:116), right lower lobe (4:123, 129, 136), left upper lobe (4:60). Subcentimeter nodular opacities measuring up to 7 mm, stable. For example: Right middle lobe (4:125) Left upper lobe (4:69) The central airways are patent. Pleural space: No pleural effusion. No pleural thickening. Lower neck, lymph nodes, and mediastinum: The imaged thyroid gland is normal. Borderline enlarged left paratracheal lymphadenopathy measuring 1.0 cm short axis (3:6 9), previously 1.1 cm, stable. Additional subcentimeter mediastinal lymph nodes are stable. Heart, pericardium, and thoracic vessels: The thoracic aorta and main pulmonary artery are normal in caliber. The cardiac chambers are normal in size. Atherosclerotic coronary artery calcifications are noted. No pericardial effusion or thickening. Bones and soft tissues: There are new healing fracture deformities of the left lateral eighth, ninth, tenth ribs. Upper abdomen: Left adrenal gland is incompletely visualized. No evidence of an adrenal mass in the visualized [id number]. Fat-containing epigastric anterior abdominal hernia.. Latex Caster (topogram) images: No additional findings. DIVISION OF RADIOLOGY Provider, [facility] - 03/23/2024 * * *Final Report* * * DATE OF EXAM: Mar 23 2024 8:49AM [facility] 0539 - CT CHEST W IVCON / PROCEDURE REASON: multiple diagnoses * * * * Physician Interpretation * * * * RESULT: EXAMINATION: CHEST CT WITH CONTRAST CLINICAL HISTORY: Lymphadenopathy, chest or axilla head and neck cancer Technique: Spiral CT acquisition of the chest from the thoracic inlet to the upper abdomen following IV contrast. MQ: CTCW_6 Contrast: 50 mL Omnipaque [address] Radiation dose: Integrated Dose-length product (DLP) for this visit = 189 mGy*cm CT Dose Reduction Employed: Automated exposure control (AEC) Comparison: 12/16/23 RESULT: Limitations: Mild motion artifact.. Lines, tubes, and devices: None. Lung parenchyma and airways: Streaky scarring/discoid atelectasis is noted in the bilateral lower lobes, increased. Mild emphysematous changes of the lungs. New subcentimeter nodular opacities measuring less than 5 mm in the right upper lobe (4:54, 83, 87, 92), right middle lobe (4:116), right lower lobe (4:123, 129, 136), left upper lobe (4:60). Subcentimeter nodular opacities measuring up to 7 mm, stable. For example: Right middle lobe (4:125) Left upper lobe (4:69) The central airways are patent. Pleural space: No pleural effusion. No pleural thickening. Lower neck, lymph nodes, and mediastinum: The imaged thyroid gland is normal. Borderline enlarged left paratracheal lymphadenopathy measuring 1.0 cm short axis (3:6 9), previously 1.1 cm, stable. Additional subcentimeter mediastinal lymph nodes are stable. Heart, pericardium, and thoracic vessels: The thoracic aorta and main pulmonary artery are normal in caliber. The cardiac chambers are normal in size. Atherosclerotic coronary artery calcifications are noted. No pericardial effusion or thickening. Bones and soft tissues: There are new healing fracture deformities of the left lateral eighth, ninth, tenth ribs. Upper abdomen: Left adrenal gland is incompletely visualized. No evidence of an adrenal mass in the visualized [id number]. Fat-containing epigastric anterior abdominal hernia.. Latex Caster (topogram) images: No additional findings. IMPRESSION IMPRESSION: 1. New subcentimeter nodular opacities measuring less than 5 mm. Consider follow-up to complete resolution. 2. Other subcentimeter nodular opacities measuring 7 mm, stable since 12/16/28. 3. New healing fracture deformities of several left ribs. 4. Borderline mediastinal lymphadenopathy, stable. Transcribe Date/Time: Mar 23 2024 10:10A Dictated by: ZANE WEAVER MD This examination was interpreted and the report reviewed and electronically signed by: ZANE WEAVER MD on Mar 23 2024 10:40AM EST Thank you for allowing us to participate in the care of your patient. Should there be any questions regarding this interpretation, please call [phone]. If you are unable to reach us at the number above, please feel free to contact [facility] at [phone]. [facility] Radiology Study observation (narrative) [facility] CT Chest W contrast IVOrdere d By: [facility] Provider on 03-23-2024 [facility] CBC W Auto Differential pane l (Bld)on 12-16-2023 Basophils (Bld) [#/Vol] 0.05 10*3/uL [facility] Basophils/100 WBC (Bld) 1.2 % [facility] Differential cell count method Nom (Bld) Auto [facility] Eosinophils (Bld) [#/Vol] 0.04 10*3/uL [facility] Eosinophils/100 WBC (Bld) 0.9 % [facility] Erythrocyte distribution width (RBC) [Ratio] 13.1 % 11.5 - 15.0 % [facility] Hematocrit (Bld) [Volume fraction] 38.0 % Low 39.0 - 51.0 % [facility] Hemoglobin (Bld) [Mass/Vol] 12.9 g/dL Low 13.0 - 17.0 g/dL [facility] Immature granulocytes (Bld) [#/Vol] [facility] Immature granulocytes/100 WBC (Bld) 0.2 % [facility] Interpretation and review of laboratory results Abnormal [facility] Lymphocytes (Bld) [#/Vol] 0.83 10*3/uL Low [facility] Lymphocytes/100 WBC (Bld) 19.5 % [facility] MCH (RBC) [Entitic mass] 31.7 pg 26.0 - 34.0 pg [facility] MCHC (RBC) [Mass/Vol] 33.9 g/dL 30.5 - 36.0 g/dL [facility] MCV (RBC) [Entitic vol] 93.4 fL 80.0 - 100.0 fL [facility] Monocytes (Bld) [#/Vol] 0.37 10*3/uL NINF [facility] Monocytes/100 WBC (Bld) 8.7 % [facility] Neutrophils (Bld) [#/Vol] 2.95 10*3/uL [facility] Neutrophils/100 WBC (Bld) 69.5 % [facility] Nucleated RBC (Bld) [#/Vol] NINF [facility] Nucleated RBC/100 WBC (Bld) [Ratio] 0.0 % /100 WBC [facility] Platelet mean volume (Bld) [Entitic vol] 9.6 fL 9.0 - 12.7 fL [facility] Platelets (Bld) [#/Vol] 197 10*3/uL [facility] RBC (Bld) [#/Vol] 4.07 10*6/uL Low 4.20 - 6.0 0 m/uL [facility] WBC (Bld) [#/Vol] 4.25 10*3/uL [facility] CT Chest W contrast Javier IMPRESSION: 1. Stable appearance of bilateral pulmonary [...] any questions regarding this interpretation, please call [phone]. If you are unable to reach us at the number above, please feel free to contact [facility] at [phone]. DIVISION OF RADIOLOGY * * *Final Report* * * DATE OF EXAM: Dec 16 2023 10:46AM [facility] 0539 - CT CHEST W IVCON / [...] No abnormality in the imaged upper abdomen. Latex Caster (topogram) images: No additional findings. DIVISION OF RADIOLOGY Provider, [facility] - 12/16/2023 * * *Final Report* * * DATE OF EXAM: Dec 16 2023 10:46AM [facility] 0539 - CT CHEST W IVCON / [...] No abnormality in the imaged upper abdomen. Latex Caster (topogram) images: No additional findings. IMPRESSION IMPRESSION: 1. Stable appearance of bilateral pulmonary [...] any questions regarding this interpretation, please call [phone]. If you are unable to reach us at the number above, please feel free to contact [facility] at [phone]. [facility] CT Chest W contrast IVOrdere d By: [facility] Provider on 12-16-[address] [facility] [address] Neck W contrast Javier IMPRESSION: Stable appearance of the soft tissues [...] any questions regarding this interpretation, please call [phone]. If you are unable to reach us at the number above, please feel free to contact [facility] at [phone]. DIVISION OF RADIOLOGY * * *Final Report* * * DATE OF EXAM: Dec 16 2023 10:46AM [facility] 0013 - CT NECK SOFT TISSUE W [...] The soft tissue planes of the adjacent analytic manager spaces are maintained. Mild dystrophic calcification is [...] the visualized lung apices. Other: Not applicable. DIVISION OF RADIOLOGY Provider, [facility] - 12/16/2023 * * *Final Report* * * DATE OF EXAM: Dec 16 2023 10:46AM [facility] 0013 - CT NECK SOFT TISSUE W [...] The soft tissue planes of the adjacent analytic manager spaces are maintained. Mild dystrophic calcification is [...] the visualized lung apices. Other: Not applicable. IMPRESSION IMPRESSION: Stable appearance of the soft tissues [...] any questions regarding this interpretation, please call [phone]. If you are unable to reach us at the number above, please feel free to contact [facility] at [phone]. [facility] Comprehensive metabolic 2000 panelOrdered By: Les Luke on 12-16-2023 Albumin [Mass/Vol] 4.4 g/dL 3.9 - 4.9 g/dL [facility] ALP [Catalytic activity/Vol] 76 U/L 38 - 113 U/L [facility] ALT [Catalytic activity/Vol] 9 U/L Low 10 - 54 U/L [facility] Anion gap [Moles/Vol] 11 mmol/L 9 - 18 mmol/L [facility] AST [Catalytic activity/Vol] 21 U/L 14 - 40 U/L [facility] Bilirubin [Mass/Vol] 0.8 mg/dL 0.2 - 1.3 mg/dL [facility] Calcium [Mass/Vol] 10.2 mg/dL 8.5 - 10. 2 mg/dL [facility] Chloride [Moles/Vol] 99 mmol/L 97 - 105 mmol/L [facility] CO2 [Moles/Vol] 25 mmol/L 22 - 30 mmol/L [facility] Creatinine [Mass/Vol] 0.84 mg/dL 0.73 - 1.22 mg/dL [facility] GFR/1.73 sq M.predicted among non-blacks MDRD (S/P/Bld) [Vol rate/Area] 96 mL/min/{1.73_m2} - PINF [facility] Comment on above: Estimated Glomerular Filtration Rate (eGFR) is calculated using the 2020 CKD-EPI creatinine equation. This equation utilizes serum creatinine, sex, and age as parameters. The creatinine assay has traceable calibration to isotope dilution-mass spectrometry. Refer to KDIGO guidelines for clinical interpretation. In patients with unstable renal function, e.g. those with acute kidney injury, the eGFR may not accurately reflect actual GFR. Glucose [Mass/Vol] 99 mg/dL 74 - 99 mg/dL [facility] Comment on above: The [place] Diabete s Association (ADA) provides guidance for cutoff values [...] Standards of Medical Care in Diabetes 2016, [place] Diabetes [employer]. Diabetes Care. 2016.39(Suppl 1). Interpretation and review of laboratory results Abnormal [facility] Potassium [Moles/Vol] 4.5 mmol/L 3.7 - 5.1 mmol/L [facility] Protein [Mass/Vol] 7.2 g/dL 6.3 - 8.0 g/dL [facility] Sodium [Moles/Vol] 135 mmol/L Low 136 - 144 mmol/L [facility] Urea nitrogen [Mass/Vol] 12 mg/dL 9 - 24 mg/dL [facility] No Panel Informationon 12-16 Radiology Study observation (narrative) [facility] Provider Letteron 03-16-2023 Provider Letter March 16, 2023 CARSON MORSE [address] [place] [id number] CARSON MORSE 1955 Dear Mr. Morse , We have been trying to reach [...] prompt attention to this matter. Please call [phone] and choose the sales support representative option. Sincerely, [facility] [address] [place] [address] [facility] Provider Letteron 03-03-2023 Provider Letter March 03, 2023 CARSON MORSE [address] [place] [id number] LITO CARSON Chilel 1955 Dear Thom , We have been trying to reach you with no success. You have an appointment with Dr. Sushil Edgar on 04/12/2023 which will need to be rescheduled. Please contact the office at the number listed below to get this appointment rescheduled at your earliest convenience. Thank you for your prompt attention to this matter. Sincerely, [facility] [address] [facility], [place] [address] [facility] XR ANKLE RT MIN 3 VIEWSon [...] ACE ARREOLA Date: 2023-01-27 14:40 Normal [facility] XR ANKLE RT MIN 3 VIEWSon XR [...] BENEDICTO THAO Date: 2022-12-29 12:44 Normal [facility] FERRITIN BLDon 12-16-2022 Ferritin [Mass/Vol] 807.0 ng/mL High 30.3 - 5 65.7 ng/mL [facility] FOLATE SERUMon 12-16-2022 Folate [Mass/Vol] 10.7 ng/mL 4.7 - PINF ng/mL [facility] Ferritin [Mass/Vol]on 2022 Interpretation and review of laboratory results Abnormal [facility] Iron and Iron binding capaci ty panelon 12-16-2022 Interpretation and review of laboratory results Abnormal [facility] Iron [Mass/Vol] 213 ug/dL High 41 - 186 ug/dL [facility] Iron binding capacity [Mass/Vol] 421 ug/dL High 232 - 386 ug/dL [facility] Iron/TIBC [Molar ratio] 50.6 % 15.0 - 57.0 % [facility] No Panel Informationon 12-16 Interpretation and review of laboratory results Normal [facility] TSH BLDon 12-16-2022 TSH Qn 2.470 m[IU]/L [facility] TSH Qnon 12-16-2022 Interpretation and review of laboratory results Normal [facility] VITAMIN B12 BLOODon 12-16-19 Cobalamin (Vitamin B12) [Mass/Vol] 276 pg/mL 232 - 1245 pg/mL [facility] CBC W Auto Differential pane l (Bld)on 12-15-2022 Basophils (Bld) [#/Vol] 0.05 10*3/uL [facility] Basophils/100 WBC (Bld) 1.1 % [facility] Differential cell count method Nom (Bld) Auto [facility] Eosinophils (Bld) [#/Vol] 0.04 10*3/uL [facility] Eosinophils/100 WBC (Bld) 0.9 % [facility] Erythrocyte distribution width (RBC) [Ratio] 13.4 % 11.5 - 15.0 % [facility] Hematocrit (Bld) [Volume fraction] 36.7 % Low 39.0 - 51.0 % [facility] Hemoglobin (Bld) [Mass/Vol] 12.5 g/dL Low 13.0 - 17.0 g/dL [facility] Immature granulocytes (Bld) [#/Vol] [facility] Immature granulocytes/100 WBC (Bld) 0.2 % [facility] Interpretation and review of laboratory results Abnormal [facility] Lymphocytes (Bld) [#/Vol] 0.60 10*3/uL Low [facility] Lymphocytes/100 WBC (Bld) 13.5 % [facility] MCH (RBC) [Entitic mass] 33.8 pg 26.0 - 34.0 pg [facility] MCHC (RBC) [Mass/Vol] 34.1 g/dL 30.5 - 36.0 g/dL [facility] MCV (RBC) [Entitic vol] 99.2 fL 80.0 - 100.0 fL [facility] Monocytes (Bld) [#/Vol] 0.41 10*3/uL [facility] Monocytes/100 WBC (Bld) 9.2 % [facility] Neutrophils (Bld) [#/Vol] 3.34 10*3/uL [facility] Neutrophils/100 WBC (Bld) 75.1 % [facility] Nucleated RBC (Bld) [#/Vol] NINF [facility] Nucleated RBC/100 WBC (Bld) [Ratio] 0.0 % /100 WBC [facility] Platelet mean volume (Bld) [Entitic vol] 9.2 fL 9.0 - 12.7 fL [facility] Platelets (Bld) [#/Vol] 174 10*3/uL [facility] RBC (Bld) [#/Vol] 3.70 10*6/uL Low 4.20 - 6.0 0 m/uL [facility] WBC (Bld) [#/Vol] 4.45 10*3/uL [facility] This is an appended report. These results have been appended to a previously verified report. [facility] CT Chest W contrast Javier IMPRESSION: 1. 7 mm part solid right middle lobe nodule appears slightly more conspicuous in size from the prior study of 12/16/2021. Correlation with continued follow-up examinations is recommended. 2. Additional subcentimeter pulmonary nodules bilaterally, unchanged. 3. Several subcentimeter mediastinal lymph nodes are again identified, relatively stable in appearance. These can also be further assessed on follow-up studies. Transcribe Date/Time: Dec 15 2022 10:48A Dictated by: EMA PATRICIO MD This examination was interpreted and the report reviewed and electronically signed by: EMA PATRICIO MD on Dec 15 2022 12:45PM EST Thank you for allowing us to participate in the care of your patient. Should there be any questions regarding this interpretation, please call [phone]. If you are unable to reach us at the number above, please feel free to contact [facility] at [phone]. DIVISION OF RADIOLOGY * * *Final Report* * * DATE OF EXAM: Dec 15 2022 8:49AM [facility] 0539 - CT CHEST W IVCON / PROCEDURE REASON: multiple diagnoses * * * * Physician Interpretation * * * * RESULT: EXAMINATION: CHEST CT WITHOUT CONTRAST CLINICAL HISTORY: Head and neck carcinoma. Technique: Spiral CT acquisition of the chest from the thoracic inlet to the upper abdomen without contrast. MQ: CTCWOR_4 CT Dose-Length Product: 700 mGy*cm CT Dose Reduction Employed: Automated exposure control (AEC) Comparison: CT chest 12/16/2021 RESULT: Limitations: None. Lines, tubes, and devices: None. Lung parenchyma , airways, and pleural space: No consolidative process or pleural effusion. The trachea and major airways appear patent. Mild centrilobular emphysematous changes with an upper lobe predominance are again appreciated. Mild biapical pleural scarring, stable. 7 mm part solid right middle lobe nodule appears slightly more conspicuous in size, previously 6 mm, image 128, series 4. Additional punctate, less than 4 mm bilateral nodules elsewhere, for example, on the right, image 47, on the left image 69, series 4, stable. Lower neck, lymph nodes, and mediastinum: A CT evaluation of the neck has been performed concurrently and will be dictated separately. No substantial axillary adenopathy is identified. Numerous subcentimeter mediastinal lymph nodes are again appreciated, largest within the AP window region measuring approximately 1.5 x 0.9 cm, not substantially changed. No substantial hilar adenopathy is identified. Heart, pericardium, and thoracic vessels: The thoracic aorta is normal in caliber. Coronary desiccation is appreciated. Biliary Tract: No bile duct dilation. Degenerative change involving the thoracic spine. No osseous destructive process. Upper Abdomen: Limited images through the upper abdomen are stable. Latex Caster (topogram) images: No additional findings. DIVISION OF RADIOLOGY Provider, [facility] - 12/15/2022 * * *Final Report* * * DATE OF EXAM: Dec 15 2022 8:49AM [facility] 0539 - CT CHEST W IVCON / PROCEDURE REASON: multiple diagnoses * * * * Physician Interpretation * * * * RESULT: EXAMINATION: CHEST CT WITHOUT CONTRAST CLINICAL HISTORY: Head and neck carcinoma. Technique: Spiral CT acquisition of the chest from the thoracic inlet to the upper abdomen without contrast. MQ: CTCWOR_4 CT Dose-Length Product: 700 mGy*cm CT Dose Reduction Employed: Automated exposure control (AEC) Comparison: CT chest 12/16/2021 RESULT: Limitations: None. Lines, tubes, and devices: None. Lung parenchyma , airways, and pleural space: No consolidative process or pleural effusion. The trachea and major airways appear patent. Mild centrilobular emphysematous changes with an upper lobe predominance are again appreciated. Mild biapical pleural scarring, stable. 7 mm part solid right middle lobe nodule appears slightly more conspicuous in size, previously 6 mm, image 128, series 4. Additional punctate, less than 4 mm bilateral nodules elsewhere, for example, on the right, image 47, on the left image 69, series 4, stable. Lower neck, lymph nodes, and mediastinum: A CT evaluation of the neck has been performed concurrently and will be dictated separately. No substantial axillary adenopathy is identified. Numerous subcentimeter mediastinal lymph nodes are again appreciated, largest within the AP window region measuring approximately 1.5 x 0.9 cm, not substantially changed. No substantial hilar adenopathy is identified. Heart, pericardium, and thoracic vessels: The thoracic aorta is normal in caliber. Coronary desiccation is appreciated. Biliary Tract: No bile duct dilation. Degenerative change involving the thoracic spine. No osseous destructive process. Upper Abdomen: Limited images through the upper abdomen are stable. Latex Caster (topogram) images: No additional findings. IMPRESSION IMPRESSION: 1. 7 mm part solid right middle lobe nodule appears slightly more conspicuous in size from the prior study of 12/16/2021. Correlation with continued follow-up examinations is recommended. 2. Additional subcentimeter pulmonary nodules bilaterally, unchanged. 3. Several subcentimeter mediastinal lymph nodes are again identified, relatively stable in appearance. These can also be further assessed on follow-up studies. Transcribe Date/Time: Dec 15 2022 10:48A Dictated by: EMA PATRICIO MD This examination was interpreted and the report reviewed and electronically signed by: EMA PATRICIO MD on Dec 15 2022 12:45PM EST Thank you for allowing us to participate in the care of your patient. Should there be any questions regarding this interpretation, please call [phone]. If you are unable to reach us at the number above, please feel free to contact [facility] at [phone]. [facility] CT Neck W contrast Javier 02-0 IMPRESSION: Post-treatment changes without discrete residual/recurrent neoplasm or evidence of pathologic lymphadenopathy in the neck. Incompletely evaluated upper mediastinal lymphadenopathy. Transcribe Date/Time: Dec 15 2022 8:50A Dictated by: PETE RODRIGUEZ MD This examination was interpreted and the report reviewed and electronically signed by: PETE RODRIGUEZ MD on Dec 15 2022 9:06AM EST Thank you for allowing us to participate in the care of your patient. Should there be any questions regarding this interpretation, please call [phone]. If you are unable to reach us at the number above, please feel free to contact [facility] at [phone]. DIVISION OF RADIOLOGY * * *Final Report* * * DATE OF EXAM: Dec 15 2022 8:49AM [facility] 0013 - CT NECK SOFT TISSUE W IVCON / PROCEDURE REASON: multiple diagnoses * * * * Physician Interpretation * * * * RESULT: CT NECK SOFT TISSUE W IVCON HISTORY: Malignant neoplasm of head, face and neck TECHNIQUE: CT neck soft tissues following IV administration of [address] Dose-Length Product (DLP): 700 mGy*cm CT Dose Reduction Employed: Automated exposure control (AEC) COMPARISON: CT neck 12/16/2021 RESULT: Post-treatment changes: Postoperative changes in the floor of mouth region and postradiation changes in the anterior neck. Neoplasm: No new/progressive confluent soft tissue or abnormal enhancement to suggest discrete residual/recurrent neoplasm. Lymph nodes: No cervical lymphadenopathy by size criteria, number or morphology. Few small nonspecific lymph nodes scattered throughout the neck appear similar. No new/progressive lymph nodes. Incompletely evaluated multiple small and mildly prominent lymph nodes in the upper mediastinum. Aerodigestive tract: Edentulous. The remaining nasal and oral cavities, naso-oropharynx, pharyngeal mucosal space, laryngeal structures and infraglottic trachea are unremarkable. Major salivary glands: Postradiation changes involving the right greater than left submandibular glands. Unremarkable parotid glands. Thyroid gland: Within normal limits. Carotid space: Patent bilateral extracranial carotid and jugular systems with at least mild right and moderate left eccentric calcified plaque at each carotid bifurcation. Intracranial contents: Mild generalized parenchymal volume loss and patchy supratentorial chronic microvascular ischemic changes. Paranasal sinuses, middle ears, mastoids: Clear. Orbits: Within normal limits. Bones: No suspicious osseous lesions in the imaged calvarium, skull base and spine. Small sclerotic focus compatible with bone island in the left posterior C5 body and pedicle. Straightening of the cervical lordosis with multilevel stepwise minimal spondylolisthesis. Mild spondylotic changes. Temporomandibular joints are maintained. Lungs: A chest CT was performed concurrently and is dictated separately. Latex Caster (topogram) images: No additional findings. DIVISION OF RADIOLOGY Provider, [facility] * * *Final Report* * * DATE OF EXAM: Dec 15 2022 8:49AM [facility] 0013 - CT NECK SOFT TISSUE W IVCON / PROCEDURE REASON: multiple diagnoses * * * * Physician Interpretation * * * * RESULT: CT NECK SOFT TISSUE W IVCON HISTORY: Malignant neoplasm of head, face and neck TECHNIQUE: CT neck soft tissues following IV administration of [address] Dose-Length Product (DLP): 700 mGy*cm CT Dose Reduction Employed: Automated exposure control (AEC) COMPARISON: CT neck 12/16/2021 RESULT: Post-treatment changes: Postoperative changes in the floor of mouth region and postradiation changes in the anterior neck. Neoplasm: No new/progressive confluent soft tissue or abnormal enhancement to suggest discrete residual/recurrent neoplasm. Lymph nodes: No cervical lymphadenopathy by size criteria, number or morphology. Few small nonspecific lymph nodes scattered throughout the neck appear similar. No new/progressive lymph nodes. Incompletely evaluated multiple small and mildly prominent lymph nodes in the upper mediastinum. Aerodigestive tract: Edentulous. The remaining nasal and oral cavities, naso-oropharynx, pharyngeal mucosal space, laryngeal structures and infraglottic trachea are unremarkable. Major salivary glands: Postradiation changes involving the right greater than left submandibular glands. Unremarkable parotid glands. Thyroid gland: Within normal limits. Carotid space: Patent bilateral extracranial carotid and jugular systems with at least mild right and moderate left eccentric calcified plaque at each carotid bifurcation. Intracranial contents: Mild generalized parenchymal volume loss and patchy supratentorial chronic microvascular ischemic changes. Paranasal sinuses, middle ears, mastoids: Clear. Orbits: Within normal limits. Bones: No suspicious osseous lesions in the imaged calvarium, skull base and spine. Small sclerotic focus compatible with bone island in the left posterior C5 body and pedicle. Straightening of the cervical lordosis with multilevel stepwise minimal spondylolisthesis. Mild spondylotic changes. Temporomandibular joints are maintained. Lungs: A chest CT was performed concurrently and is dictated separately. Latex Caster (topogram) images: No additional findings. IMPRESSION IMPRESSION: Post-treatment changes without discrete residual/recurrent neoplasm or evidence of pathologic lymphadenopathy in the neck. Incompletely evaluated upper mediastinal lymphadenopathy. Transcribe Date/Time: Dec 15 2022 8:50A Dictated by: PETE RODRIGUEZ MD This examination was interpreted and the report reviewed and electronically signed by: PETE RODRIGUEZ MD on Dec 15 2022 9:06AM EST Thank you for allowing us to participate in the care of your patient. Should there be any questions regarding this interpretation, please call [phone]. If you are unable to reach us at the number above, please feel free to contact [facility] at [phone]. [facility] CT Neck W contrast IVOrdered By: Ccf Provider on 12-15-2022 [facility] Comprehensive metabolic 2000 panelOrdered By: Les Luke on 12-15-2022 Albumin [Mass/Vol] 5.0 g/dL High 3.9 - 4.9 g/dL [facility] ALP [Catalytic activity/Vol] 72 U/L 38 - 113 U/L [facility] ALT [Catalytic activity/Vol] 16 U/L 10 - 54 U/L [facility] Anion gap [Moles/Vol] 12 mmol/L 9 - 18 mmol/L [facility] AST [Catalytic activity/Vol] 30 U/L 14 - 40 U/L [facility] Bilirubin [Mass/Vol] 0.9 mg/dL 0.2 - 1.3 mg/dL [facility] Calcium [Mass/Vol] 10.5 mg/dL High 8.5 - 10. 2 mg/dL [facility] Chloride [Moles/Vol] 97 mmol/L 97 - 105 mmol/L [facility] CO2 [Moles/Vol] 28 mmol/L 22 - 30 mmol/L [facility] Creatinine [Mass/Vol] 0.73 mg/dL 0.73 - 1.22 mg/dL [facility] GFR/1.73 sq M.predicted among non-blacks MDRD (S/P/Bld) [Vol rate/Area] 100 mL/min/{1.73_m2} - PINF [facility] Comment on above: Estimated Glomerular Filtration Rate (eGFR) is calculated using the 2020 CKD-EPI creatinine equation. This equation utilizes serum creatinine, sex, and age as parameters. The creatinine assay has traceable calibration to isotope dilution-mass spectrometry. Refer to KDIGO guidelines for clinical interpretation. In patients with unstable renal function, e.g. those with acute kidney injury, the eGFR may not accurately reflect actual GFR. Glucose [Mass/Vol] 106 mg/dL High 74 - 99 mg/dL [facility] Comment on above: The [place] Diabete s Association (ADA) provides guidance for cutoff values [...] Standards of Medical Care in Diabetes 2016, [place] Diabetes Association. Diabetes Care. 2016.39(Suppl 1). Interpretation and review of laboratory results Abnormal [facility] Potassium [Moles/Vol] 4.7 mmol/L 3.7 - 5.1 mmol/L [facility] Protein [Mass/Vol] 7.8 g/dL 6.3 - 8.0 g/dL [facility] Sodium [Moles/Vol] 137 mmol/L 136 - 144 mmol/L [facility] Urea nitrogen [Mass/Vol] 11 mg/dL 9 - 24 mg/dL [facility] No Panel Informationon 12-15 Radiology Study observation (narrative) [facility] Ambulatory Visit Summaryon 0 04-06-2022 Ambulatory Visit Summary CARSON MORSE :1955 Visit Date:04/06/2022 Ambulatory Visit Instructions Your Diagnosis BPH without urinary obstruction Nocturia Tests Performed Urnls Dip Stick Auto w/o Microscopy POC 35040 Your Care Team Attending Physician - Herve Flores MD, Sushil De Leon Primary Care Physician - Elba De La Cruz MD This Is Your Medications List Contact prescribing physician if questions or concerns sofosbuvir-velpatasvir (Epclusa 400 mg-100 mg oral tablet) Procedures [...] Sushil De Leon Where: [facility] Jose Normal [facility] Patient Educationon 04-06-20 Patient Education Urology Hematuria, Adult Hematuria is [...] these instructions at home: Medicines ? Take tezn-vyf-dspxgad and prescription medicines only as told by [...] the blood stops without treatment. ? Take smtn-pad-tvtzrik and prescription medicines only as told by your health care provider. ? Drink enough fluid to keep your urine clear or pale yellow. This information is not intended to replace advice given to you by your health care provider. Make sure you discuss any questions you have with your health care provider. Document Released: 10/24/2006 Document Revised: 03/19/2020 Document Reviewed: 11/26/2017 Elsevier Patient Education ? 2019 [employer] Live [facility] Urology Office/Clinic Noteon 04-06-2022 Urology Office/Clinic Note Chief Complaint 7 month with PSA This patient is a 66-year-old male with a history of gross painless hematuria. This has resolved. At present he states he is voiding without any difficulty. He still has occasionally discolored urine but he believes is related to the medication he is taking. Urinalysis was evaluated today. HPI Staff Carson is here today for a 7 month follow up with PSA. Previous PSA done on 02/26/21 was 2.07. Pt states he got his PSA drawn at Dr. Baez [facility] T[facility] and testosterone. Previous [...] Urnls Dip Stick Auto w/o Microscopy POC 93365 2. Nocturia (R35.1: Nocturia) ongoing 2x a night Follow-up With When Contact Information Herve Flores MD, Sushil De Leon URO In 1 year 04/06/2023 EDT [facility] [address], [place] [address]- Additional Instructions: w/psa Patient Education Hematuria, Adult I, Mariam Mchugh personally scribed for Dr. Edgar on 04/06/2022 [...] data Procedure (more content not included)... Normal [facility] Comment on above: Result Comment: Elec tronically Signed By: Herve Flores MD, Sushil De Leon\.br\Date and Time Signed: 04/06/22 12:01 EDT\.br\Electronically Co-Signed By: Jeison TESFAYE, Mariam Torres\.br\Date and Time Co-Signed: 04/06/22 11:[address] Chest W contrast Javier IMPRESSION: 1. New subtle subcentimeter groundglass opacities in the right middle lobe most likely infectious/inflammator y in etiology. Consider follow-up to complete resolution. 2. Other previously noted nodular opacities measuring up to 5 mm, stable since 05/21/20. 3. Diffuse hepatic fatty infiltration. 4. Mild emphysematous changes of the lungs. Transcribe Date/Time: Dec 16 2021 8:46A Dictated by: ZANE WEAVER MD This examination was interpreted and the report reviewed and electronically signed by: ZANE WEAVER MD on Dec 16 2021 10:27AM EST Thank you for allowing us to participate in the care of your patient. Should there be any questions regarding this interpretation, please call [phone]. If you are unable to reach us at the number above, please feel free to contact [facility] at [phone]. DIVISION OF RADIOLOGY * * *Final Report* * * DATE OF EXAM: Dec 16 2021 8:45AM [facility] 0539 - CT CHEST W IVCON / PROCEDURE REASON: Lung nodules * * * * Physician Interpretation * * * * RESULT: EXAMINATION: CHEST CT WITH CONTRAST CLINICAL HISTORY: Lung nodule(s) Technique: Spiral CT acquisition of the chest from the thoracic inlet to the upper abdomen following IV contrast. MQ: CTCW_6 Contrast: 140 mL Omnipaque [address] Radiation dose: Integrated Dose-length product (DLP) for this visit = 811 mGy*cm CT Dose Reduction Employed: Automated exposure control (AEC) Comparison: 06/11/21, 12/26/2020, 05/21/20 RESULT: Limitations: Mild motion artifact.. Lines, tubes, and devices: None. Lung parenchyma and airways: Streaky scarring/discoid atelectasis is noted in the bilateral lower lobes. Mild emphysematous changes of the lungs. Subcentimeter nodular opacities measuring less than 5 mm, stable since 05/21/20. For example: Right upper lobe (3: 47, 49, 77) Left upper lobe (3: 68) New subcentimeter groundglass opacity in the right middle lobe (3:126) most likely infectious/inflammator y in etiology. The central airways are patent. Pleural space: No pleural effusion. No pleural thickening. Lower neck, lymph nodes, and mediastinum: The imaged thyroid gland is normal. No lymphadenopathy in the supraclavicular, axillary, mediastinal, or hilar regions. Heart, pericardium, and thoracic vessels: The thoracic aorta and main pulmonary artery are normal in caliber. The cardiac chambers are normal in size. Atherosclerotic coronary artery calcifications are noted. No pericardial effusion or thickening. Bones and soft tissues: Bone island is noted in the right posterior fifth rib. No new osseous abnormalities. Upper abdomen: Diffuse hepatic fatty infiltration. Left adrenal gland is incompletely visualized. No evidence of an adrenal mass in the visualized [id number]. Fat-containing epigastric anterior abdominal hernia.. Latex Caster (topogram) images: No additional findings. DIVISION OF RADIOLOGY Provider, [facility] - 12/16/2021 * * *Final Report* * * DATE OF EXAM: Dec 16 2021 8:45AM [facility] 0539 - CT CHEST W IVCON / PROCEDURE REASON: Lung nodules * * * * Physician Interpretation * * * * RESULT: EXAMINATION: CHEST CT WITH CONTRAST CLINICAL HISTORY: Lung nodule(s) Technique: Spiral CT acquisition of the chest from the thoracic inlet to the upper abdomen following IV contrast. MQ: CTCW_6 Contrast: 140 mL Omnipaque [address] Radiation dose: Integrated Dose-length product (DLP) for this visit = 811 mGy*cm CT Dose Reduction Employed: Automated exposure control (AEC) Comparison: 06/11/21, 12/26/2020, 05/21/20 RESULT: Limitations: Mild motion artifact.. Lines, tubes, and devices: None. Lung parenchyma and airways: Streaky scarring/discoid atelectasis is noted in the bilateral lower lobes. Mild emphysematous changes of the lungs. Subcentimeter nodular opacities measuring less than 5 mm, stable since 05/21/20. For example: Right upper lobe (3: 47, 49, 77) Left upper lobe (3: 68) New subcentimeter groundglass opacity in the right middle lobe (3:126) most likely infectious/inflammator y in etiology. The central airways are patent. Pleural space: No pleural effusion. No pleural thickening. Lower neck, lymph nodes, and mediastinum: The imaged thyroid gland is normal. No lymphadenopathy in the supraclavicular, axillary, mediastinal, or hilar regions. Heart, pericardium, and thoracic vessels: The thoracic aorta and main pulmonary artery are normal in caliber. The cardiac chambers are normal in size. Atherosclerotic coronary artery calcifications are noted. No pericardial effusion or thickening. Bones and soft tissues: Bone island is noted in the right posterior fifth rib. No new osseous abnormalities. Upper abdomen: Diffuse hepatic fatty infiltration. Left adrenal gland is incompletely visualized. No evidence of an adrenal mass in the visualized gnnsx-ce-sjuw. Fat-containing epigastric anterior abdominal hernia.. Latex Caster (topogram) images: No additional findings. IMPRESSION IMPRESSION: 1. New subtle subcentimeter groundglass opacities in the right middle lobe most likely infectious/inflammator y in etiology. Consider follow-up to complete resolution. 2. Other previously noted nodular opacities measuring up to 5 mm, stable since 05/21/20. 3. Diffuse hepatic fatty infiltration. 4. Mild emphysematous changes of the lungs. Transcribe Date/Time: Dec 16 2021 8:46A Dictated by: ZANE WEAVER MD This examination was interpreted and the report reviewed and electronically signed by: ZANE WEAVER MD on Dec 16 2021 10:27AM EST Thank you for allowing us to participate in the care of your patient. Should there be any questions regarding this interpretation, please call [phone]. If you are unable to reach us at the number above, please feel free to contact [facility] at [phone]. [facility] CT Neck W contrast Javier 02-0 IMPRESSION: 1. Stable anterior neck treatment changes. 2. No evidence for any recurrent/residual or new abnormality. 3. Incompletely evaluated superior mediastinal adenopathy. Transcribe Date/Time: Dec 16 2021 8:42A Dictated by: ARAVIND GOLD MD This examination was interpreted and the report reviewed and electronically signed by: ARAVIND GOLD MD on Dec 16 2021 8:58AM EST Thank you for allowing us to participate in the care of your patient. Should there be any questions regarding this interpretation, please call [phone]. If you are unable to reach us at the number above, please feel free to contact [facility] at [phone]. DIVISION OF RADIOLOGY * * *Final Report* * * DATE OF EXAM: Dec 16 2021 8:33AM [facility] 0013 - CT NECK SOFT TISSUE W IVCON / PROCEDURE REASON: Malignant neoplasm of head, face and neck (HCC) * * * * Physician Interpretation * * * * RESULT: COMPARISONS: 06/11/2021. HISTORY: Malignant neoplasm of the head/face/neck. TECHNIQUE: CT neck with contrast. Contrast: IV 140 ml of Omnipaque 300 CT Radiation dose: Integrated Dose-length product (DLP) for this visit = 811 mGy*cm CT Dose Reduction Employed: Automated exposure control (AEC) RESULT: NECK CT: Acute abnormality: None. Stable treatment changes at floor of mouth with soft tissue stranding at anterior neck with thickening of subjacent muscles and loss of fat planes without abnormal enhancement or new adenopathy or interval change concerning for recurrent/residual neoplasm. No acute neck abnormality. Incompletely evaluated multiple nodules within superior mediastinum (further characterized by CT chest performed same day). Symmetrical, stable and unremarkable intracranial structures, bones, orbits, sinuses, mastoids, skull base, salivary/thyroid glands, vascular structures, aerodigestive tract with mucosal lining and remaining fat planes without any additional soft tissue mass, loculated collections, abnormal enhancement or pathological neck lymphadenopathy. DIVISION OF RADIOLOGY Provider, [facility] - 12/16/2021 * * *Final Report* * * DATE OF EXAM: Dec 16 2021 8:33AM [facility] 0013 - CT NECK SOFT TISSUE W IVCON / PROCEDURE REASON: Malignant neoplasm of head, face and neck (HCC) * * * * Physician Interpretation * * * * RESULT: COMPARISONS: 06/11/2021. HISTORY: Malignant neoplasm of the head/face/neck. TECHNIQUE: CT neck with contrast. Contrast: IV 140 ml of Omnipaque 300 CT Radiation dose: Integrated Dose-length product (DLP) for this visit = 811 mGy*cm CT Dose Reduction Employed: Automated exposure control (AEC) RESULT: NECK CT: Acute abnormality: None. Stable treatment changes at floor of mouth with soft tissue stranding at anterior neck with thickening of subjacent muscles and loss of fat planes without abnormal enhancement or new adenopathy or interval change concerning for recurrent/residual neoplasm. No acute neck abnormality. Incompletely evaluated multiple nodules within superior mediastinum (further characterized by CT chest performed same day). Symmetrical, stable and unremarkable intracranial structures, bones, orbits, sinuses, mastoids, skull base, salivary/thyroid glands, vascular structures, aerodigestive tract with mucosal lining and remaining fat planes without any additional soft tissue mass, loculated collections, abnormal enhancement or pathological neck lymphadenopathy. IMPRESSION IMPRESSION: 1. Stable anterior neck treatment changes. 2. No evidence for any recurrent/residual or new abnormality. 3. Incompletely evaluated superior mediastinal adenopathy. Transcribe Date/Time: Dec 16 2021 8:42A Dictated by: ARAVIND GOLD MD This examination was interpreted and the report reviewed and electronically signed by: ARAVIND GOLD MD on Dec 16 2021 8:58AM EST Thank you for allowing us to participate in the care of your patient. Should there be any questions regarding this interpretation, please call [phone]. If you are unable to reach us at the number above, please feel free to contact [facility] at [phone]. [facility] No Panel Informationon 12-16 [facility] Radiology Study observation (narrative) [facility] Vital Signs Date Time Vital Sign Value Performing Clinician Facility 01-21-2025 11:18-0400 Diastolic blood pressure 85 mm[Hg] Wyatt Garza MD Work Phone: [facility] Comment on above: recheck 01-21-2025 11:18-0400 Systolic blood pressure 187 mm[Hg] Wyatt Garza MD Work Phone: [facility] Comment on above: recheck 01-21-2025 11:15-0400 Body height 165.1 cm Wyatt Garza MD Work Phone: [facility] 01-21-2025 11:15-0400 Body mass index (BMI) [Ratio] 25.5 kg/m2 Wyatt Garza MD Work Phone: [facility] 01-21-2025 11:15-0400 Body temperature 97.59 [degF] Wytat Garza MD Work Phone: [facility] 01-21-2025 11:15-0400 Body weight 69.5 kg Wyatt Garza MD Work Phone: [facility] 01-21-2025 11:15-0400 Heart rate 77 /min Wyatt Garza MD Work Phone: [facility] 01-21-2025 11:15-0400 Respiratory rate 16 /min Wyatt Garza MD Work Phone: [facility] 01-21-2025 11:15-0400 SaO2% (BldA) [Mass fraction] 97 % Wyatt Garza MD Work Phone: [facility] 07-23-2024 08:53-0400 Body height 165.1 cm Abram Fiore MD Work Phone: [facility] 07-23-2024 08:53-0400 Body mass index (BMI) [Ratio] 23.8 kg/m2 Abram Fiore MD Work Phone: [facility] 07-23-2024 08:53-0400 Body weight 64.86 kg Abram Fiore MD Work Phone: [facility] 07-23-2024 08:53-0400 Diastolic blood pressure 98 mm[Hg] Abram Fiore MD Work Phone: [facility] 07-23-2024 08:53-0400 Systolic blood pressure 140 mm[Hg] Abram Fiore MD Work Phone: [facility] 06-29-2024 11:41-0400 Body height 165.1 cm Wyatt Garza MD Work Phone: [facility] 06-29-2024 11:41-0400 Body temperature 97.7 [degF] Wyatt Garza MD Work Phone: [facility] 06-29-2024 11:41-0400 Diastolic blood pressure 90 mm[Hg] yWatt Garza MD Work Phone: [facility] 06-29-2024 11:41-0400 Heart rate 60 /min Wyatt Garza MD Work Phone: [facility] 06-29-2024 11:41-0400 Respiratory rate 16 /min Wyatt Garza MD Work Phone: [facility] 06-29-2024 11:41-0400 SaO2% (BldA) [Mass fraction] 98 % Wyatt Garza MD Work Phone: [facility] 06-29-2024 11:41-0400 Systolic blood pressure 153 mm[Hg] Wyatt Garza MD Work Phone: [facility] 03-30-2024 14:27-0400 Body height 165.1 cm Wyatt Garza MD Work Phone: [facility] 03-30-2024 14:27-0400 Body mass index (BMI) [Ratio] 23.5 kg/m2 Wyatt Garza MD Work Phone: [facility] 03-30-2024 14:27-0400 Body temperature 97.2 [degF] Wyatt Garza MD Work Phone: [facility] 03-30-2024 14:27-0400 Body weight 64.05 kg Wyatt Garza MD Work Phone: [facility] 03-30-2024 14:27-0400 Diastolic blood pressure 79 mm[Hg] Wyatt Garza MD Work Phone: [facility] 03-30-2024 14:27-0400 Heart rate 82 /min Wyatt Garza MD Work Phone: [facility] 03-30-2024 14:27-0400 Respiratory rate 16 /min Wyatt Garza MD Work Phone: [facility] 03-30-2024 14:27-0400 SaO2% (BldA) [Mass fraction] 98 % Wyatt Garza MD Work Phone: [facility] 03-30-2024 14:27-0400 Systolic blood pressure 129 mm[Hg] Wyatt Garza MD Work Phone: [facility] 12-19-2023 10:07-0500 Body height 165.1 cm Wyatt Garza MD Work Phone: [facility] 12-19-2023 10:07-0500 Body temperature 97.59 [degF] Wyatt Garza MD Work Phone: [facility] 12-19-2023 10:07-0500 Body weight 68.6 kg Wyatt Garza MD Work Phone: [facility] 12-19-2023 10:07-0500 Diastolic blood pressure 78 mm[Hg] Wyatt Garza MD Work Phone: [facility] 12-19-2023 10:07-0500 Heart rate 71 /min Wyatt Garza MD Work Phone: [facility] 12-19-2023 10:07-0500 Respiratory rate 16 /min Wyatt Garza MD Work Phone: [facility] 12-19-2023 10:07-0500 SaO2% (BldA) [Mass fraction] 98 % Wyatt Garza MD Work Phone: [facility] 12-19-2023 10:07-0500 Systolic blood pressure 145 mm[Hg] Wyatt Garza MD Work Phone: [facility] 12-16-2022 10:48-0500 Body height 165.1 cm Wyatt Garza MD Work Phone: [facility] 12-16-2022 10:48-0500 Body temperature 97.59 [degF] Wyatt Garza MD Work Phone: [facility] 12-16-2022 10:48-0500 Body weight 69.58 kg Wyatt Garza MD Work Phone: [facility] 12-16-2022 10:48-0500 Diastolic blood pressure 100 mm[Hg] Wyatt Garza MD Work Phone: [facility] 12-16-2022 10:48-0500 Heart rate 94 /min Wyatt Garza MD Work Phone: [facility] 12-16-2022 10:48-0500 Respiratory rate 16 /min Wyatt Garza MD Work Phone: [facility] 12-16-2022 10:48-0500 SaO2% (BldA) [Mass fraction] 95 % Wyatt Garza MD Work Phone: [facility] 12-16-2022 10:48-0500 Systolic blood pressure 139 mm[Hg] Wyatt Garza MD Work Phone: [facility] 06-17-2022 10:45-0400 Body temperature 98.1 [degF] KAVIN Atkins MD Work Phone: [facility] 06-17-2022 10:45-0400 Body weight 66.22 kg KAVIN Atkins MD Work Phone: [facility] 06-17-2022 10:45-0400 Diastolic blood pressure 81 mm[Hg] KAVIN Atkins MD Work Phone: [facility] 06-17-2022 10:45-0400 Heart rate 89 /min KAVIN Atkins MD Work Phone: [facility] 06-17-2022 10:45-0400 Respiratory rate 18 /min KAVIN Atkins MD Work Phone: [facility] 06-17-2022 10:45-0400 SaO2% (BldA) [Mass fraction] 100 % KAVIN Atkins MD Work Phone: [facility] 06-17-2022 10:45-0400 Systolic blood pressure 146 mm[Hg] KAVIN Atkins MD Work Phone: [facility] 04-06-2022 11:34-0400 Blood Pressure Location Sushil Edgar Jr. [facility] 04-06-2022 11:34-0400 Diastolic blood pressure 89 mm[Hg] Sushil Edgar Jr. [facility] 04-06-2022 11:34-0400 Heart rate 72 /min Sushil Edgar Jr. [facility] 04-06-2022 11:34-0400 Respiratory rate 16 /min Sushil Edgar Jr. [facility] 04-06-2022 11:34-0400 Systolic blood pressure 141 mm[Hg] Sushil Edgar Jr. [facility] Encounters Encounter Date Encounter Type Care Provider Facility Start: 01-21-2025 End: 01-21-2025 ambulatory ELBA DE LA CRUZ Facility:[facility] Start: 01-21-2025 End: 01-21-2025 Office outpatient visit 25 minutes Wyatt Garza MD Work Phone: Hematology/Oncology Comment on above: History of head and neck cancer (Primary Dx); Lung nodules Start: 01-18-2025 End: 01-18-2025 Telephone encounter Halima Nixon MD Work Phone: Gastroenterology Comment on above: Follow Up Tests Resu lts (Labs---->needs US, Fibroscan and OV) Start: 01-16-2025 End: 03-18-2025 Follow-up encounter Halima Nixon MD Work Phone: Gastroenterology Start: 01-10-2025 End: 01-10-2025 ambulatory ELBA MCKINNEYFior Facility:[facility] Start: 01-10-2025 End: 01-10-2025 Subsequent hospital visit by physician Arrival Time Radiology Work Phone: [facility]iology [facility] Comment on above: History of head and neck cancer [Z85.89] Start: 08-23-2024 End: 08-23-2024 Bamboo flowsheet Andreina [facility] Work Phone: [facility] Start: 08-23-2024 End: 08-23-2024 Bamboo flowsheet Andreina [facility] Work Phone: [facility] Start: 08-23-2024 End: 08-23-2024 ambulatory [facility] Comment on above: Sensorineural hearin g loss (SNHL) of both ears (Primary Dx) Start: 07-23-2024 End: 07-23-2024 Bamboo flowsheet Abram Fiore MD Work Phone: [facility] Start: 07-23-2024 End: 07-23-2024 Karleyo flowshayden Fiore MD Work Phone: [facility] Start: 07-23-2024 End: 07-23-2024 Office outpatient visit 15 minutes Abram Fiore MD Work Phone: [facility] Comment on above: Tongue cancer (CMS/H CC) (Primary Dx) Start: 07-23-2024 End: 07-23-2024 ambulatory ABRAM FIORE Not Available Start: 07-10-2024 End: 07-10-2024 Bamboo flowsheet Andreina Mcraeill CCC-A Work Phone: [facility] Start: 07-10-2024 End: 07-10-2024 Bamboo flowsheet Andreinajah Mcraeill CCC-A Work Phone: [facility] Start: 07-10-2024 End: 07-10-2024 Clinical Support Andreina Charles McraeAni CCC-A Work Phone: [facility] Comment on above: Sensorineural hearin g loss (SNHL) of both ears (Primary Dx) Start: 07-10-2024 End: 07-10-2024 ambulatory ANDREINA Charles ANI Not Available Start: 06-29-2024 End: 06-29-[address] [facility] Facility:[facility] Start: 06-29-2024 End: 06-29-2024 Office outpatient visit 15 minutes Wyatt Garza MD Work Phone: Hematology/Oncology Comment on above: History of head and neck cancer (Primary Dx); Lung nodules Start: 06-22-2024 End: 06-22-[address] [facility] Facility:[facility] Start: 06-22-2024 End: 06-22-2024 Subsequent hospital visit by physician Arrival Time Radiology Work Phone: Radiology Pet CT Comment on above: History of head and neck cancer [Z85.89] Start: 06-12-2024 Telephone encounter Halima de leon MD Work Phone: Gastroenterology Start: 05-28-2024 End: 05-28-[address] [facility] Facility:[facility] Start: 05-28-2024 End: 05-28-2024 Subsequent hospital visit by physician [facility] Comment on above: Abnormal LFTs [R79.8 9] Start: 05-24-2024 Telephone encounter Halima de leon MD Work Phone: Gastroenterology Start: 05-22-2024 End: 05-22-[address] [facility] Facility:[facility] Start: 05-17-2024 Telephone encounter Halima de leon MD Work Phone: Gastroenterology Start: 03-30-2024 End: 03-30-[address] [facility] Facility:[facility] Start: 03-30-2024 End: 03-30-2024 Office outpatient visit 25 minutes Wyatt Garza MD Work Phone: Hematology/Oncology Comment on above: History of head and neck cancer (Primary Dx); Lung nodules Start: 03-23-2024 End: 03-23-[address] [facility] Facility:[facility] Start: 03-23-2024 End: 03-23-2024 Subsequent hospital visit by physician Arrival Time Radiology Work Phone: Radiology Pet CT Comment on above: Localized enlarged l ymph nodes [R59.0] Start: 12-19-2023 Telephone encounter Zeny Torres Hematology/Oncology Comment on above: Results Start: 12-19-2023 End: 12-19-2023 Office outpatient visit 25 minutes Wyatt Garza MD Work Phone: Hematology/Oncology Comment on above: Localized enlarged l ymph nodes (Primary Dx); Severe protein-calorie malnutrition (HCC); Malignant neoplasm of head, face and neck (HCC); History of head and neck cancer Start: 12-16-2023 End: 12-16-2023 Subsequent hospital visit by physician Arrival Time Radiology Work Phone: Radiology [facility] Comment on above: Lung nodules [R91.8] Start: 04-12-2023 ambulatory Sushil Edagr Facility :[facility] Start: 03-10-2023 ambulatory LEONA RENDON Facilit y:[facility] Start: 01-27-2023 End: 01-28-[address] ELBA DE LA CRUZ . Facility:[facility] Start: 12-28-2022 End: 12-29-[address] ELBA DE LA CRUZ . Facility:[facility] Start: 12-28-2022 End: 12-29-[address] ELBA DE LA CRUZ . Facility:[facility] Start: 12-16-2022 End: 12-16-2022 Office outpatient visit 25 minutes Wyatt Garza MD Work Phone: Hematology/Oncology Comment on above: Malignant neoplasm o f head, face and neck (HCC) (Primary Dx); Lung nodules; Disorder of thyroid Start: 12-15-2022 End: 12-15-2022 Subsequent hospital visit by physician Arrival Time Radiology Work Phone: Radiology Pet CT Comment on above: Malignant neoplasm o f head, face and neck (HCC) [C76.0] Start: 11-10-[address] ELBA DE LA CRUZ . Facili ty: Start: 07-29-2022 Orders Only Gerald Jiménez [facility] Comment on above: Chronic hepatitis C with hepatic coma (HCC) (Primary Dx) Start: 07-16-2022 ambulatory Bhavya López on [facility] Start: 07-16-2022 Follow-up encounter Bhavya kim [facility] Comment on above: SPP Hepatology - Fol low-up (Epclusa treatment complete) Start: 06-17-2022 End: 06-17-2022 Patient encounter procedure Marleni Atkins MD Work Phone: Radiation Oncology Comment on above: Effects of radiation , sequela (Primary Dx); Head and neck cancer (HCC) Start: 06-09-2022 Telephone encounter Marleni Atkins MD Work Phone: Radiation Oncology Comment on above: Lab Orders Start: 04-15-2022 ambulatory Bhavya López on [facility] Start: 04-15-2022 Follow-up encounter Bhavya kim [facility] Comment on above: SPP Hepatology - Fol low-up (Epclusa - End of Treatment) Start: 04-06-2022 End: 04-07-2022 ambulatory Sushilsonu Edgar Facility:[facility] Start: 04-06-2022 End: 04-06-2022 Patient encounter procedure Sushil Edagr [facility] Start: 03-22-2022 Telephone encounter Halima de leon MD Work Phone: Gastroenterology Comment on above: Results Start: 03-11-2022 Specialty Pharmacy Bhavya paz [facility] Comment on above: SPP Hepatology - Med ication Refill (Epclusa) Start: 02-11-2022 Specialty Pharmacy Bhavya paz [facility] Comment on above: SPP Hepatology - Med ication Refill (Epclusa) Start: 01-25-2022 Telephone encounter Halima de leon MD Work Phone: Gastroenterology Comment on above: Follow Up Start: 12-16-2021 End: 12-16-2021 Subsequent hospital visit by physician Arrival Time Radiology Work Phone: Radiology Pet CT Comment on above: Malignant neoplasm o f head, face and neck (HCC) [C76.0] Start: 03-14-2018 End: 03-15-2018 Patient encounter procedure Elba De La Cruz Facility:[facility] Procedures Date Procedure Procedure Detail Performing Clinician Start: 01-10-2025 Ct soft tissue neck w/contrast material Wyatt Garza MD Work Phone: Start: 01-10-2025 Blood count complete auto&auto difrntl wbc Wyatt Garza MD Work Phone: Start: 07-10-2024 AUDITORY FUNCTION TESTS Andreina Law CCC-A Work Phone: Start: 06-22-2024 Ct thorax w/contrast material Wyatt Garza MD Work Phone: Start: 06-22-2024 Blood count complete auto&auto difrntl wbc Wyatt Garza MD Work Phone: Start: 05-28-2024 Us abdominal real ti me w/image limited Halima Nixon MD Work Phone: Start: 03-23-2024 Ct thorax w/contrast material Wyatt Garza MD Work Phone: Start: 03-23-2024 CREATININE BLD Wyatt rogers MD Work Phone: Start: 12-16-2023 Ct soft tissue neck w/contrast material Wyatt Garza MD Work Phone: Start: 12-16-2023 Ct thorax w/contrast material Wyatt Garza MD Work Phone: Start: 12-16-2023 Blood count complete auto&auto difrntl wbc Wyatt Garza MD Work Phone: Start: 12-15-2022 Ct soft tissue neck w/contrast material Wyatt Garza MD Work Phone: Start: 12-15-2022 Ct thorax w/contrast material Wyatt Garza MD Work Phone: Start: 12-15-2022 Blood count complete auto&auto difrntl wbc Wyatt Garza MD Work Phone: Start: 12-17-2021 Adult depression scr eening assessment Halima Nixon MD Work Phone: Start: 03-04-2021 Cystoscopy Sushil martinez Jr. Start: 09-01-2020 Cystoscopy Sushil martinez Jr. Biopsy of tongue Sushil fiore Jr. Chemotherapy Sushil [place] Plan of Treatment Date Care Activity Detail Author Start: 2031 RSV Vaccine (1 - 1-d ose 75+ series) RSV Vaccine (1 - 1-dose 75+ series) [facility] Start: 01-11-2028 Diabetes Screening Diabetes Screenin g [facility] Start: 06-22-2027 Diabetes Screening Diabetes Screenin g [facility] Start: 12-16-2026 Diabetes Screening Diabetes Screenin g [facility] Start: 02-26-2026 PROSTATE CANCER SCREENING DISCUSSION PROSTATE CANCER SCREENING DISCUSSION [facility] Start: 01-21-2026 End: 01-21-2026 CBC W Auto Differential panel - Blood COMPLETE BLOOD COUNT AND DIFFERENTIAL Lab Routine History of head and neck cancer Lung nodules Expected: 01/21/2026 (Approximate), Expires: 01/21/2026 [facility] Comment on above: Expected: 01/21/2026 (Approximate), Expires: 01/21/2026 Start: 01-21-2026 End: 01-21-2026 Comprehensive metabolic 2000 panel - Serum or Plasma COMPREHENSIVE METABOLIC PANEL Lab Routine History of head and neck cancer Lung nodules Expected: 01/21/2026 (Approximate), Expires: 01/21/2026 [facility] Comment on above: Expected: 01/21/2026 (Approximate), Expires: 01/21/2026 Start: 01-21-2026 End: 02-20-2026 CT Chest W contrast IV CT CHEST W IVCON Radiology Routine History of head and neck cancer Lung nodules Expected: 01/21/2026 (Approximate), Expires: 02/20/2026 [facility] Comment on above: Expected: 01/21/2026 (Approximate), Expires: 02/20/2026 Start: 01-21-2026 End: 02-20-2026 CT Neck W contrast IV CT NECK SOFT TISSUE W IVCON Radiology Routine History of head and neck cancer Lung nodules Expected: 01/21/2026 (Approximate), Expires: 02/20/2026 [facility] Work Phone: Comment on above: Expected: 01/21/2026 (Approximate), Expires: 02/20/2026 Start: 01-20-2026 End: 01-20-2026 Follow-up encounter 01/20/2026 11:40 AM EDT Visit (SP) Office Hematology/Oncology [address] [place] [address] [place] [address] Wyatt Garza MD [address] [place] [address] [place] [address] 1 YEAR FOLLOW UP AFTER CT SCAN Hematology/Oncology Comment on above: 1 YEAR FOLLOW UP AFT ER CT SCAN Start: 01-13-2026 End: 01-13-2026 Patient encounter procedure 01/13/2026 7:45 AM EDT Appointment Radiology Pet [facility] [address] [facility] [place] [place] [address] CT CHEST AND NECK Radiology Pet CT Comment on above: CT CHEST AND NECK Start: 01-10-2026 Screening for malign ant neoplasm of lung Lung Cancer Screening [facility] Start: 12-15-2025 DIABETES SCREEN DIABETES SCREEN [facility] Start: 07-08-2025 Influenza vaccination Influenz a Vaccine (Season Ended) [facility] Start: 06-22-2025 Screening for malign ant neoplasm of lung Lung Cancer Screening [facility] Start: 05-24-2025 End: 08-23-2025 Hepatitis C virus RNA [Units/volume] (viral load) in Serum or Plasma by PAULA with probe detection HEPATITIS C RNA QUANTIFICATION BY PCR, PLASMA/SERUM Lab Routine Chronic hepatitis C without hepatic coma (HCC) Expected: 05/24/2025 (Approximate), Expires: 08/23/2025 [facility] Work Phone: Comment on above: Expected: 05/24/2025 (Approximate), Expires: 08/23/2025 Start: 03-23-2025 Screening for malign ant neoplasm of lung Lung Cancer Screening [facility] Start: 01-21-2025 End: 01-21-2025 Follow-up encounter Hematology/Oncology Comment on above: [address] up [address] scan [address] up [address] scan w/labs Start: 01-07-2025 End: 01-07-2025 Follow-up encounter 01/07/2025 8:30 AM EST Visit (SP) Office Hematology/Oncology [address] [place] [address] Wyatt Garza MD [address] [place] [address] 6 [address] up [address] scan Hematology/Oncology Comment on above: [address] up [address] scan Start: 12-31-2024 End: 12-31-2024 Patient encounter procedure 12/31/2024 8:45 AM EST Appointment Radiology Pet [facility] [address] [place] [address] CT CHEST AND NECK Radiology Pet CT Comment on above: CT CHEST AND NECK Start: 12-30-2024 End: 06-29-2025 CBC W Auto Differential panel - Blood COMPLETE BLOOD COUNT AND DIFFERENTIAL Lab Routine History of head and neck cancer Lung nodules Expected: 12/30/2024 (Approximate), Expires: 06/29/2025 [facility] Comment on above: Expected: 12/30/2024 (Approximate), Expires: 06/29/2025 Start: 12-30-2024 End: 06-29-2025 Comprehensive metabolic 2000 panel - Serum or Plasma COMPREHENSIVE METABOLIC PANEL Lab Routine History of head and neck cancer Lung nodules Expected: 12/30/2024 (Approximate), Expires: 06/29/2025 [facility] Comment on above: Expected: 12/30/2024 (Approximate), Expires: 06/29/2025 Start: 12-30-2024 End: 07-29-2025 CT Chest W contrast IV CT CHEST W IVCON Radiology Routine History of head and neck cancer Lung nodules Expected: 12/30/2024 (Approximate), Expires: 07/29/2025 [facility] Comment on above: Expected: 12/30/2024 (Approximate), Expires: 07/29/2025 Start: 12-30-2024 End: 07-29-2025 CT Neck W contrast IV CT NECK SOFT TISSUE W IVCON Radiology Routine History of head and neck cancer Lung nodules Expected: 12/30/2024 (Approximate), Expires: 07/29/2025 [facility] Work Phone: Comment on above: Expected: 12/30/2024 (Approximate), Expires: 07/29/2025 Start: 12-16-2024 DIABETES SCREEN DIABETES SCREEN [facility] Start: 12-16-2024 Screening for malign ant neoplasm of lung Lung Cancer Screening [facility] Start: 12-13-2024 End: 03-14-2025 [id number] [Mass/volume] in Serum or Plasma ALPHA FETOPROTEIN Lab Routine Fatty liver Expected: 12/13/2024 (Approximate), Expires: 03/14/2025 [facility] Work Phone: Comment on above: Expected: 12/13/2024 (Approximate), Expires: 03/14/2025 Start: 12-13-2024 End: 07-12-2025 US Abdomen RUQ US ABD RIGHT UPPER QUADRANT Radiology Routine Fatty liver Expected: 12/13/2024 (Approximate), Expires: 07/12/2025 [facility] Comment on above: Expected: 12/13/2024 (Approximate), Expires: 07/12/2025 Start: 11-07-2024 Advance Directive Discussion Advance Directive Discussion [facility] Start: 09-13-2024 End: 09-13-2024 Patient encounter procedure 09/13/2024 2:00 PM EST Office Visit [facility] SHETH [address] [place] [address] [facility] SHETH Start: 08-23-2024 End: 08-23-2024 Clinical Support [facility] Comment on above: Arrived Start: 07-23-2024 End: 07-23-2024 Patient encounter procedure SIL[facility]IA MCCORMICK Comment on above: Arrived Start: 07-10-2024 End: 07-10-2024 Clinical Support 07/10/2024 1:30 PM EDT Clinical Support S[facility] SHETH [address] [facility] [address] Andreina Law, [facility] [address] [place] [address] Arrived [facility] Comment on above: Arrived Start: 07-08-2024 Covid-19 Vaccine ( season) Covid-19 Vaccine ( season) [facility] Start: 07-08-2024 Covid-19 Vaccine ( season) Covid-19 Vaccine ( season) [facility] Start: 07-08-2024 Influenza vaccination C [facility] Start: 06-30-2024 End: 03-30-2025 CBC W Auto Differential panel - Blood COMPLETE BLOOD COUNT AND DIFFERENTIAL Lab Routine History of head and neck cancer Lung nodules Expected: 06/30/2024 (Approximate), Expires: 03/30/2025 [facility] Comment on above: Expected: 06/30/2024 (Approximate), Expires: 03/30/2025 Start: 06-30-2024 End: 03-30-2025 Comprehensive metabolic 2000 panel - Serum or Plasma COMPREHENSIVE METABOLIC PANEL Lab Routine History of head and neck cancer Lung nodules Expected: 06/30/2024 (Approximate), Expires: 03/30/2025 [facility] Comment on above: Expected: 06/30/2024 (Approximate), Expires: 03/30/2025 Start: 06-30-2024 End: 04-29-2025 CT Chest W contrast IV CT CHEST W IVCON Radiology Routine History of head and neck cancer Lung nodules Expected: 06/30/2024 (Approximate), Expires: 04/29/2025 [facility] Work Phone: Comment on above: Expected: 06/30/2024 (Approximate), Expires: 04/29/2025 Start: 06-29-2024 End: 06-29-2024 Follow-up encounter 06/29/2024 11:15 AM EDT Visit (SP) Office Hematology/Oncology [address] [place] [address] Wyatt Garza MD [address] [place] [address] 3 MONTH FOLLOW UP AFTER CT Hematology/Oncology Comment on above: 3 MONTH FOLLOW UP AF TER CT Start: 06-22-2024 End: 06-22-2024 Patient encounter procedure 06/22/2024 7:45 AM EDT Appointment Radiology Pet CT [address] [facility] [place] [address] CT CHEST W IV Radiology Pet CT Comment on above: CT CHEST W IV Start: 05-28-2024 End: 05-28-2024 Patient encounter procedure 05/28/2024 2:30 PM EDT Appointment Radiology [address] [place] [address] no spl chkf [facility] 05/21 Abnormal LFTs [R79.89] Radiology Comment on above: [place] [facility] [place] Abnormal LFTs [R79.89] Start: 05-21-2024 End: 08-20-2024 Hepatitis C virus RNA [Units/volume] (viral load) in Serum or Plasma by PAULA with probe detection HEPATITIS C RNA QUANTIFICATION BY PCR, PLASMA/SERUM Lab Routine Abnormal LFTs Chronic hepatitis C without hepatic coma (HCC) Expected: 05/21/2024 (Approximate), Expires: 08/20/2024 [facility] Comment on above: Expected: 05/21/2024 (Approximate), Expires: 08/20/2024 Start: 05-21-2024 End: 06-16-2025 US Abdomen RUQ US ABD RIGHT UPPER QUADRANT Radiology Routine Abnormal LFTs Chronic hepatitis C without hepatic coma (HCC) Expected: 05/21/2024 (Approximate), Expires: 06/16/2025 [facility] Work Phone: Comment on above: Expected: 05/21/2024 (Approximate), Expires: 06/16/2025 Start: 01-30-2024 End: 01-17-2025 CREATININE BLD CREATININE BLD Lab Routine Localized enlarged lymph nodes History of head and neck cancer Expected: 01/30/2024, Expires: 01/17/2025 [facility] Work Phone: Comment on above: Expected: 01/30/2024 , Expires: 01/17/2025 Start: 01-30-2024 End: 01-17-2025 CT Chest W contrast IV CT CHEST W IVCON Radiology Routine Localized enlarged lymph nodes History of head and neck cancer Expected: 01/30/2024, Expires: 01/17/2025 [facility] Work Phone: Comment on above: Expected: 01/30/2024 , Expires: 01/17/2025 Start: 12-16-2023 End: 12-16-2023 CBC W Auto Differential panel - Blood CBC + DIFF Lab Routine Lung nodules Expected: 12/16/2023 (Approximate), Expires: 12/16/2023 [facility] Work Phone: Comment on above: Expected: 12/16/2023 (Approximate), Expires: 12/16/2023 Start: 12-16-2023 End: 12-16-2023 Comprehensive metabolic 2000 panel - Serum or Plasma COMP METABOLIC PANEL Lab Routine Lung nodules Expected: 12/16/2023 (Approximate), Expires: 12/16/2023 [facility] Work Phone: Comment on above: Expected: 12/16/2023 (Approximate), Expires: 12/16/2023 Start: 12-16-2023 End: 01-15-2024 CT CHEST W IVCON CT CHEST W IVCON Radiology Routine Lung nodules Expected: 12/16/2023 (Approximate), Expires: 01/15/2024 [facility] Work Phone: Comment on above: Expected: 12/16/2023 (Approximate), Expires: 01/15/2024 Start: 12-16-2023 End: 01-15-2024 Ct soft tissue neck w/contrast material CT NECK SOFT TISSUE W IVCON Radiology Routine Lung nodules Expected: 12/16/2023 (Approximate), Expires: 01/15/2024 [facility] Work Phone: Comment on above: Expected: 12/16/2023 (Approximate), Expires: 01/15/2024 Start: 12-15-2023 Influenza vaccination LUNG CANCER SC BORISNING [facility] Start: 11-07-2023 Advance Directive Discussion Advance Directive Discussion [facility] Start: 11-07-2023 Behavioral Health Screening Behavioral Health Screening [facility] Start: 11-07-2023 Depression Assessment Depression Ass essment [facility] Start: 07-08-2023 Covid-19 Vaccine () Covid-19 Vaccine () [facility] Start: 07-08-2023 Influenza vaccination Influenza Vacc ine (#1) [facility] Start: 12-18-2022 End: 07-17-2023 Ct thorax w/o contrast material CT CHEST WO IVCON Radiology Routine Effects of radiation, sequela Head and neck cancer (HCC) Expected: 12/18/2022, Expires: 07/17/2023 [facility] Work Phone: Comment on above: Expected: 12/18/2022 , Expires: 07/17/2023 Start: 12-17-2022 Adult depression screening assessment DEPRESSION SCREENING [facility] Start: 12-16-2022 Influenza vaccination LUNG CANCER SC REENING [facility] Start: 11-07-2022 ADVANCE DIRECTIVE DISCUSSION ADVANCE DIRECTIVE DISCUSSION [facility] Start: 11-07-2022 DEPRESSION ASSESSMENT DEPRESSION ASS ESSMENT [facility] Start: 07-30-2022 End: 09-29-2022 Hepatitis C virus RNA [Units/volume] (viral load) in Serum or Plasma by PAULA with probe detection HCV QUANT RNA BY PCR Lab Routine Chronic hepatitis C with hepatic coma (HCC) Expected: 07/30/2022 (Approximate), Expires: 09/29/2022 [facility] Work Phone: Comment on above: Expected: 07/30/2022 (Approximate), Expires: 09/29/2022 Start: 07-08-2022 Influenza vaccination [facility] Start: 06-09-2022 End: 08-09-2022 Thyrotropin [Units/volume] in Serum or Plasma TSH BLD Lab Routine Effects of radiation, sequela Expected: 06/09/2022, Expires: 08/09/2022 [facility] Work Phone: Comment on above: Expected: 06/09/2022 , Expires: 08/09/2022 Start: 06-09-2022 End: 08-09-2022 Thyroxine (T4) [Mass/volume] in Serum or Plasma T4/THYROXINE BLOOD Lab Routine Effects of radiation, sequela Expected: 06/09/2022, Expires: 08/09/2022 [facility] Work Phone: Comment on above: Expected: 06/09/2022 , Expires: 08/09/2022 Start: 2021 ADVANCE DIRECTIVE DISCUSSION ADVANCE DIRECTIVE DISCUSSION [facility] Start: 2021 PNEUMOVAX AGE 65 AND OVER WITH 5YR LOOKBACK (#1) PNEUMOVAX AGE 65 AND OVER WITH 5YR LOOKBACK (#1) [facility] Start: 07-08-2021 Influenza vaccination INFLUENZA (#1) [facility] Start: 2016 HEPATITIS B (1 of 3 - Risk 3-dose series) HEPATITIS B (1 of 3 - Risk 3-dose series) [facility] Start: 2016 Hepatitis B Vaccine (1 of 3 - Risk 3-dose series) Hepatitis B Vaccine (1 of 3 - Risk 3-dose series) [facility] Start: 2016 RSV Vaccine (1 - 1-d ose 60+ series) RSV Vaccine (1 - 1-dose 60+ series) [facility] Start: 2016 RSV Vaccine (1 - Ris k 60-74 years 1-dose series) RSV Vaccine (1 - Risk 60-74 years 1-dose series) [facility] Start: 2011 PROSTATE CANCER SCREENING DISCUSSION PROSTATE CANCER SCREENING DISCUSSION [facility] Start: 2011 Prostate specific antigen measurement Prostate Cancer Screening Discussion [facility] Start: 2006 SHINGRIX VACCINE (1 of 2) SHINGRIX VACCINE (1 of 2) [facility] Start: 2001 COLOGUARD (FIT-DNA) COLOGUARD (FIT-D NA) [facility] Start: 2001 Colonoscopy COLONOSCOPY [facility] Start: 2001 COLORECTAL CANCER SCREENING COLORECTAL CANCER SCREENING [facility] Start: [address] COLONOGRAPHY [facility] Start: 2001 FECAL OCCULT BLOOD FECAL OCCULT BLOO D [facility] Start: 2001 Prostate specific antigen measurement Prostate Cancer Screening Discussion [facility] Start: 2001 Screening for malign ant neoplasm of colon [facility] Start: 2001 SIGMOIDOSCOPY SIGMOIDOSCOPY [facility] Start: 1991 Lipid panel Lipid Screening [facility] Start: 1991 LIPID SCREEN LIPID SCREEN [facility] Start: 1975 HEPATITIS B (1 of 3 - Risk 3-dose series) HEPATITIS B (1 of 3 - Risk 3-dose series) [facility] Start: 1975 Pneumococcal Vaccine : 50+ (1 of 2 - PCV) Pneumococcal Vaccine: 50+ (1 of 2 - PCV) [facility] Start: 1975 SHINGRIX VACCINE (1 of 2) SHINGRIX VACCINE (1 of 2) [facility] Start: 1975 Urine microalbumin profile [facility] Start: 1974 Anxiety Screening Anxiety Screening [facility] Start: 1974 Depression Screening Depression Scre ening [facility] Start: 1974 HIV SCREENING HIV SCREENING [facility] Start: 1962 Pneumococcal Vaccine : 65+ (1 of 2 - PCV) Pneumococcal Vaccine: 65+ (1 of 2 - PCV) [facility] Start: 1962 PNEUMOCOCCAL: 65+ (1 - PCV) PNEUMOCOCCAL: 65+ (1 - PCV) [facility] Start: 1961 COVID-19 VACCINE (#1) COVID-19 VACCI NE (#1) [facility] Start: 1961 COVID-19 VACCINE (1) COVID-19 VACCIN E (1) [facility] Start: 05-11-1957 COVID-19 VACCINE (#1) COVID-19 VACCI NE (#1) [facility] Start: 1956 ABDOMINAL AORTIC ANEURYSM SCREENING ABDOMINAL AORTIC ANEURYSM SCREENING [facility] Start: 1956 Abdominal aortic aneurysm screening Abdominal Aortic Aneurysm Screening [facility] [id number] [Mass/volume] in Serum or Plasma ALPHA FETOPROTEIN Lab Routine Fatty liver 01/10/2025 2:10 PM EST [facility] Work Phone: CT Chest W contrast IV CT CHEST W IVCON Radiology Routine History of head and neck cancer Lung nodules 01/10/2025 3:05 PM EST [facility] Work Phone: End: 01-25-2023 HEPATIC FUNCTION PNL HEPATIC FUNCTION PNL Lab Routine Hepatitis C antibody positive in blood Every 3 weeks for 2 Occurrences starting 01/26/2022 until 01/25/2023 [facility] Work Phone: Comment on above: Every 3 weeks for 2 Occurrences starting 01/26/2022 until 01/25/2023 End: 01-25-2023 Hepatitis C virus RNA [Units/volume] (viral load) in Serum or Plasma by PALUA with probe detection HCV QUANT RNA BY PCR Lab Routine Hepatitis C antibody positive in blood Every 3 weeks for 2 Occurrences starting 01/26/2022 until 01/25/2023 [facility] Work Phone: Comment on above: Every 3 weeks for 2 Occurrences starting 01/26/2022 until 01/25/2023 Liver ultrasound attenuation by transient elastography DDI VIBRATION CONTROLLED TRANSIENT ELASTOGRAPHY (VCTE) Endoscopy Routine Fatty liver Ordered: 06/18/2024 [facility] Comment on above: Ordered: 06/18/2024 Thyrotropin [Units/volume] in Serum or Plasma TSH BLD Lab Routine Effects of radiation, sequela 06/17/2022 10:58 AM EDT [facility] Work Phone: Thyroxine (T4) [Mass/volume] in Serum or Plasma T4/THYROXINE BLOOD Lab Routine Effects of radiation, sequela 06/17/2022 10:58 AM EDT [facility] Work Phone: [facility] Immunizations Immunization Date Immunization Notes Care Provider Meena gilmore NEGATED: Highlighted row has not occurred!02-19-2021 influenza virus vaccine, unspecified formulation Sushil Edgar Jr. [facility] Payers Date Payer Category Payer Medicare (Managed Care) 1.2. [id number] 2022 Unknown [id number] 2022 Private Health Insurance [id number] 2022 Medicare [id number] 2022 Medicare [id number] 2021 Medicaid MEDICAID [facility] MEDICAID [id number] 2021-Present [phone] [address] [place] [id number] Medicaid [id number] 2021 Medicaid [id number] 2021 Medicaid [id number] 2018 Private Health Insurance [id number] 2018 Self-pay 1959 Unknown [id number] 1956 Unknown [id number] 93 1956 Unknown [id number] 93 1956 Unknown [id number] 93 1956 Unknown [id number] 93 1956 Unknown [id number] 93 1956 Unknown [id number] 27 1956 Unknown [id number] 27 1956 Unknown [id number] 259 1956 Unknown [id number] 259 1956 Unknown [id number] 259 Unknown [id number] 31 Social History Date Type Detail Facility Start: 03-04-1973 End: 06-17-2022 Tobacco smoking status NHIS Smokes tobacco daily [facility] Start: 11-07-1971 End: 03-04-2018 History of tobacco use Cigarette Smoker [facility] Start: 10-13-2020 End: 12-19-2023 Cigarettes smoked current (pack per day) - Reported 1 [facility] Start: 10-13-2020 End: 06-17-2022 Tobacco use and exposure User of smokeless tobacco [facility] Start: 12-17-2021 End: 06-29-2024 Alcohol intake Current drinker of alcohol (finding) [facility] Start: 10-13-2020 History SDOH Alcohol Comment socially [facility] Start: 01-09-2018 End: 06-17-2022 Tobacco Comment started 1971 [facility] Start: 1955 Sex Assigned At Not on file [facility] Start: 01-10-2022 End: 01-20-2022 Exposure to SARS-CoV-2 (event) Unable to assess [facility] Start: 04-06-2022 Tobacco smoking status Light t obacco smoker (finding) [facility] Start: 12-19-2023 End: 06-29-2024 Sex Assigned At Male [facility] Start: 06-07-2022 End: 06-17-2022 Exposure to SARS-CoV-2 (event) Not sure [facility] Adult Depression Screening Assessment 0 [facility] Start: 03-28-2023 End: 07-23-2024 Tobacco use and exposure Smokeless tobacco non-user [facility] Start: 03-28-2023 Tobacco Comment Smokes 6-10 cigarettes/day [facility] Start: 03-28-2023 Alcohol Comment Caffeine >4 cups/day [facility] Start: 07-20-2023 Alcoholic beverage intake Ex-drinker (finding) [facility] Clinical Notes 12-16-2021 to 01-21-2025 Wyatt Garza MD - 01/21/2025 11:40 AM EDTPatient InstructionsTelephone Encounter - Ivette Lala - 01/18/2025 12:31 PM EDTTelephone Encounter - Ivette Lala - 01/18/2025 12:31 PM EDT Note Date & Type Note Facility 01-21-2025 History of Present illness Narrative Images from the original note were not included. NAME: Carson Morse CLINIC NO.: [id number] DATE OF SERVICE: January 21, 2025 (Mirian) Some elements in this clinic note that are critical to medical decision making have been carefully reviewed and included from a prior clinic note dated: June 29, 2024 (Mirian) Additional Clinicians involved in Carson Morse's care: Dorothy Atkins Noma Dakhil CC: Head and neck cancer [...] Hepatitis C has been irradicated. PLAN: CT Neck Chest in 12 months Labs same day - include CBC, CMP RTC 1 week after with me to review HPI: CASE HISTORY: Reverse Chronological Order 01/10/2025 - CT Neck/Chest: Neck: Redemonstration of the posttreatment related changes in the neck. No evidence of new neck mass or lymphadenopathy.. Chest: No CT evidence of new metastatic disease in the chest. Pulmonary nodules measuring up to 6 mm are unchanged from June 2024. No new or enlarging pulmonary nodules are identified. A mildly enlarged left paratracheal lymph node is stable. Right paratracheal lymph nodes have decreased in size. No enlarging lymph nodes identified in the chest. Unchanged moderate L1 compression deformity. 06/22/2024 - CT Chest: Previously identified new pulmonary nodules have resolved suggesting infectious/inflammatory process. No new suspicious appearing pulmonary nodules. Age indeterminant L1 compression fracture. 03/23/2024 - CT Chest: New subcentimeter nodular opacities measuring less than 5 mm. Consider follow-up to complete resolution. Other subcentimeter nodular opacities measuring 7 mm, stable since 12/16/22. New healing fracture deformities of several left ribs. Borderline mediastinal lymphadenopathy, stable. 02/24/2024 - ER after being found unresponsive, woke up after being given Narcan 01/31/2024 - ER after fall due to alcohol intoxication 12/16/2023 - CT Neck/Chest: Neck: Stable appearance of the soft tissues of the neck since 12/15/2022. No evidence of recurrent soft tissue mass or significant cervical lymphadenopathy by size criteria. Chest: Stable appearance of bilateral pulmonary nodules. No new or enlarging nodules are seen. Slight interval increase in size of a [...] new mass or adenopathy in the neck. 12/2017 - P16 positive head and neck cancer, in remission post chemotherapy/radiation Updated Visit, January 21, 2025: Recovered after 10 weeks of the flu that was going around. Scans reviewed and remain clear of recurrence. Updated Visit, June 29, 2024: Thom returns today for a follow up. CT chest reveals the new pulmonary nodules have resolved, which suggests they were inflammatory. Scan shows CADEN. Will repeat his scan in 6 months, then pursue annual monitoring. Updated Visit, March 30, 2024: Thom returns today for a follow up. Recent CT scan shows a new 5mm nodule that we will continue monitoring. He is a current smoker, which may be the cause of the new nodule. He just had cataract surgery. He notes his strength is diminishing now that he is getting older. Updated Visit, December 19, 2023: Thom returns [...] organ systems. Used to work on the [employer]. Updated Visit, June 19, 2020: Thom is [...] organ systems. Updated Visit, February 20, 2020: Carson Morse is a 63 year old male who [...] PERFORMANCE STATUS: 0 PHYSICAL EXAMINATION: Vitals: BP 187/85[recheck[ Pulse 77 Temp (Src) 97.6 (Temporal) Resp 16 Ht 5' 5 (1.65m) Wt 153 lb 3.5 oz (69.5kg) SpO2 97% BMI 25.50 kg/(m^2). Body surface area is 1.79 meters [...] contrast (will be provided with radiology test) Inject 1 Each intravenously one time only [...] in the CT contrast administration guidelines link. iv contrast (will be provided with radiology [...] in the CT contrast administration guidelines link. levoFLOXacin (LEVAQUIN) 750 mg tablet Take 750 mg by mouth once daily. LABORATORY VALUES: WBC (k/uL) Date Value 01/10/2025 4.64 RBC (m/uL) Date Value 01/10/2025 3.13 (L) Hemoglobin (g/dL) Date Value 01/10/2025 10.6 (L) Hematocrit (%) Date Value 01/10/2025 31.6 (L) MCV (fL) Date Value 01/10/2025 101.0 (H) MCH (pg) Date Value 01/10/2025 33.9 MCHC (g/dL) Date Value 01/10/2025 33.5 RDW-CV (%) Date Value 01/10/2025 12.2 Platelet Count (k/uL) Date Value 01/10/2025 209 MPV (fL) Date Value 01/10/2025 9.4 Glucose (mg/dL) Date Value 01/10/2025 100 (H) BUN (mg/dL) Date Value 01/10/2025 9 Creatinine (mg/dL) Date Value 01/10/2025 0.68 (L) Sodium (mmol/L) Date Value 01/10/2025 138 Potassium (mmol/L) Date Value 01/10/2025 3.7 Chloride (mmol/L) Date Value 01/10/2025 102 CO2 (mmol/L) Date Value 01/10/2025 25 Protein, Total (g/dL) Date Value 01/10/2025 6.8 Albumin (g/dL) Date Value 01/10/2025 4.4 Calcium, Total (mg/dL) Date Value 01/10/2025 9.6 Alkaline Phosphatase (U/L) Date Value 01/10/2025 79 Bilirubin, Total (mg/dL) Date Value 01/10/2025 0.6 AST (U/L) Date Value 01/10/2025 14 ALT (U/L) Date Value 01/10/2025 8 (L) DIAGNOSIS: (Z85.89) History of head and neck cancer (primary encounter diagnosis) Plan: CT NECK SOFT TISSUE W IVCON, iv contrast (will be provided with radiology test), CT CHEST W IVCON, iv contrast (will be provided with radiology test), COMPLETE BLOOD COUNT AND DIFFERENTIAL, COMPREHENSIVE METABOLIC PANEL (R91.8) Lung nodules Plan: CT NECK SOFT TISSUE W IVCON, iv contrast (will be provided with radiology test), CT CHEST W IVCON, iv contrast (will be provided with radiology test), COMPLETE BLOOD COUNT AND DIFFERENTIAL, COMPREHENSIVE METABOLIC PANEL PAST MEDICAL HISTORY Diagnosis Date 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 Hoarse voice quality 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) PAST SURGICAL HISTORY Procedure Laterality Date ESOPHAGOSCOPY LARYNGOSCOPY REMV CATARACT EXTRACAP,INSERT LENS Bilateral Social History Tobacco Use Smoking status: Every Day Current packs/day: 0.00 Average packs/day: 1 pack/day for 45.0 years (45.0 ttl pk-yrs) Types: Cigarettes Start date: 03/04/1973 Last attempt to quit: 03/04/2018 Years since quittin.8 Smokeless tobacco: Current Tobacco comments: started 1971 Vaping Use Vaping status: Never Used Substance Use Topics Alcohol use: Yes Comment: socially Drug use: Never Comment: quit 2007 FAMILY HISTORY Problem Relation Age of Onset Diabetes Mother Stroke Mother Diabetes Father Stroke Daughter Colon Cancer No Family History I spent a total of 30 minutes on the date of service which included preparing to see the patient, [id number] patient care, completing clinical documentation, performing a medically appropriate examination, counseling and educating the patient/family/caregiver, ordering medications, tests, or procedures, independently interpreting results (not separately reported), communicating results to the patient/family/caregiver, and care coordination (not separately reported). Wyatt Garza MD, CPE Hematology and Oncology Services Provided at: [place], [place] CC: Elba De La Cruz MD [address] [facility] [id number] Halima Nixon MD documented in this encounter [facility] 01-21-2025 Note HNO ID: [id number] Author: WYATT GARZA MD Service: ? Author Type: Physician Type: Progress Notes Filed: 01/21/2025 11:32 Note Text: NAME: Carson Morse [facility] NO.: [id number] DATE OF SERVICE: January 21, 2025 (Mirian) Some elements in this clinic note that are critical to medical decision making have been carefully reviewed and included from a prior clinic note dated: June 29, 2024 (Mirian) Additional Clinicians involved in Carson Morse's care: Dorothy Atkins Noma Dakhil CC: Head and neck cancer [...] Hepatitis C has been irradicated. PLAN: CT Neck Chest in 12 months Labs same day - include CBC, CMP RTC 1 week after with me to review HPI: CASE HISTORY: Reverse Chronological Order 01/10/2025 - CT Neck/Chest: Neck: Redemonstration of the posttreatment related changes in the neck. No evidence of new neck mass or lymphadenopathy.. Chest: No CT evidence of new metastatic disease in the chest. Pulmonary nodules measuring up to 6 mm are unchanged from June 2024. No new or enlarging pulmonary nodules are identified. A mildly enlarged left paratracheal lymph node is stable. Right paratracheal lymph nodes have decreased in size. No enlarging lymph nodes identified in the chest. Unchanged moderate L1 compression deformity. 06/22/2024 - CT Chest: Previously identified new pulmonary nodules have resolved suggesting infectious/inflammatory process. No new suspicious appearing pulmonary nodules. Age indeterminant L1 compression fracture. 03/23/2024 - CT Chest: New subcentimeter nodular opacities measuring less than 5 mm. Consider follow-up to complete resolution. Other subcentimeter nodular opacities measuring 7 mm, stable since 12/16/22. New healing fracture deformities of several left ribs. Borderline mediastinal lymphadenopathy, stable. 02/24/2024 - ER after being found unresponsive, woke up after being given Narcan 01/31/2024 - ER after fall due to alcohol intoxication 12/16/2023 - CT Neck/Chest: Neck: Stable appearance of the soft tissues of the neck since 12/15/2022. No evidence of recurrent soft tissue mass or significant cervical lymphadenopathy by size criteria. Chest: Stable appearance of bilateral pulmonary nodules. No new or enlarging nodules are seen. Slight interval increase in size of a [...] new mass or adenopathy in the neck. 12/2017 - P16 positive head and neck cancer, in remission post chemotherapy/radiation Updated Visit, January 21, 2025: Recovered (more content not included)... [facility] 01-21-2025 Instructions Wyatt Garza MD - 01/21/2025 11:[address] Neck Chest in 12 months Labs same day - include CBC, CMP RTC 1 week after with me to review documented in this encounter [facility] 01-18-2025 Telephone encounter Note Unable to lvm and no mychart [facility] 01-18-2025 Miscellaneous Notes Unable to lvm and no mychart Images from the original note were not included. Pt notified of results and recommendations and verbalized understanding. Schedulers, please call pt to schedule US, Fibroscan and OV. Orders are already placed. Thank you, NOLAN Meeks Noma, MD P [facility] Nurse Pool Normal AFP Patient is overdue for US He needs to schedule Halima Nixon MD documented in this encounter [facility] 01-18-2025 Telephone encounter Note Images from the original note were not included. Pt notified of results and recommendations and verbalized understanding. Schedulers, please call pt to schedule US, Fibroscan and OV. Orders are already placed. Thank you, NOLAN Meeks Noma, MD [facility] Nurse Pool Normal AFP Patient is overdue for US He needs to schedule Halima Nixon MD [facility] Work Phone: 01-10-2025 History of Present illness Narrative Radiology Service Progress Note DATE OF SERVICE: January 10, 2025 TIME: 2:44 PM PATIENT WEIGHT: 151LBS PATIENT IDENTITY VERIFICATION COMPLETED USING TWO (2) STANDARD IDENTIFIERS: Name and Date of confirmed by patient verbally. FALL SCREENING: Has the patient had 2 falls in the last year or 1 fall with injury or currently using an Ambulatory Assistive Device (Walker, Cane, Wheelchair, Crutches, etc.)? No PATIENT GENDER DATA: Assigned male at ALLERGIES: Reviewed and unchanged CONTRAST ALLERGY: No EXAM: CT -CONTRAST INDUCED NEPHROPATHY RISK FACTORS: Patient age > 60 years CREATININE: Creatinine Date Value Ref Range Status 01/10/2025 0.68 (L) 0.73 - 1.22 mg/dL Final 06/22/2024 0.96 0.73 - 1.22 mg/dL Final 03/23/2024 0.84 0.73 - 1.22 mg/dL Final Estimated Glomerular Filtration Rate Date Value Ref Range Status 01/10/2025 101 >=60 mL/min/1.73m Final Comment: Estimated Glomerular Filtration Rate (eGFR) [...] RESULTS: POC done: Yes, See Lab Tab January 10, 2025 TREATMENT: N/A IV SITE: Ambulatory: A peripheral IV was started in the Right antecubital site with a Angio cath: 20 gauge. IV SITE APPEARANCE: Clean,Dry and Intact SIGNATURE: Roxann Mcgregor RN PATIENT NAME: Carson Morse DATE: January 10, 2025 TIME: 2:44 PM Radiology Service Progress Note PATIENT NAME: Carson Morse DATE OF SERVICE: January 10, 2025 TIME: 2:51 PM PATIENT IDENTITY VERIFICATION COMPLETED USING TWO (2) IDENTIFIERS: Name and Date of confirmed by patient verbally. FALL SCREENING: Has the patient had 2 falls in the last year or 1 fall with injury or currently using an Ambulatory Assistive Device (Walker, Cane, Wheelchair, Crutches, etc.)? No PATIENT GENDER DATA: Assigned male at PATIENT RELEVANT IMPLANT DATA REVIEWED: Not Applicable PATIENT PRESENTS WITH AN IMPLANTABLE OR ATTACHED SINGING TEACHER: No RADIOLOGY DEPARTMENT: CT; Exam(s) Completed: Chest and Neck PERIPHERAL IV DATA: Site assessment: Clean,Dry and Intact, Site disposition Discontinued SIGNED BY: RT Terry(Porter) January 10, 2025 2:51 PM documented in this encounter [facility] 01-10-2025 Note HNO ID: [id number] Author: SONJA MELGAR RT(R) Service: ? Author Type: Technologist Type: Progress Notes Filed: 01/10/2025 14:51 Note Text: Radiology Service Progress Note PATIENT NAME: Carson Morse DATE OF SERVICE: January 10, 2025 TIME: 2:51 PM PATIENT IDENTITY VERIFICATION COMPLETED USING TWO (2) IDENTIFIERS: Name and Date of confirmed by patient verbally. FALL SCREENING: Has the patient had 2 falls in the last year or 1 fall with injury or currently using an Ambulatory Assistive Device (Walker, Cane, Wheelchair, Crutches, etc.)? No PATIENT GENDER DATA: Assigned male at PATIENT RELEVANT IMPLANT DATA REVIEWED: Not Applicable PATIENT PRESENTS WITH AN IMPLANTABLE OR ATTACHED SINGING TEACHER: No RADIOLOGY DEPARTMENT: CT; Exam(s) Completed: Chest and Neck PERIPHERAL IV DATA: Site assessment: Clean,Dry and Intact, Site disposition Discontinued SIGNED BY: RT Terry(R) January 10, 2025 2:51 PM [facility] 01-10-2025 Note HNO ID: [id number] Author: ROXANN MCGREGOR RN Service: ? Author Type: Registered Nurse Type: Progress Notes Filed: 01/10/2025 14:45 Note Text: Radiology Service Progress Note DATE OF SERVICE: January 10, 2025 TIME: 2:44 PM PATIENT WEIGHT: 151LBS PATIENT IDENTITY VERIFICATION COMPLETED USING TWO (2) STANDARD IDENTIFIERS: Name and Date of confirmed by patient verbally. FALL SCREENING: Has the patient had 2 falls in the last year or 1 fall with injury or currently using an Ambulatory Assistive Device (Walker, Cane, Wheelchair, Crutches, etc.)? No PATIENT GENDER DATA: Assigned male at ALLERGIES: Reviewed and unchanged CONTRAST ALLERGY: No EXAM: CT -CONTRAST INDUCED NEPHROPATHY RISK FACTORS: Patient age > 60 years CREATININE: Creatinine Date Value Ref Range Status 01/10/2025 0.68 (L) 0.73 - 1.22 mg/dL Final 06/22/2024 0.96 0.73 - 1.22 mg/dL Final 03/23/2024 0.84 0.73 - 1.22 mg/dL Final Estimated Glomerular Filtration Rate Date Value Ref Range Status 01/10/2025 101 >=60 mL/min/1.73m? Final Comment: Estimated Glomerular Filtration [...] RESULTS: POC done: Yes, See Lab Tab January 10, 2025 TREATMENT: N/A IV SITE: Ambulatory: A peripheral IV was started in the Right antecubital site with a Angio cath: 20 gauge. IV SITE APPEARANCE: Clean,Dry and Intact SIGNATURE: Roxann Mcgregor RN PATIENT NAME: Carson Morse DATE: January 10, 2025 TIME: 2:44 PM [facility] 08-23-2024 History of Present illness Narrative Hearing Aid Fitting: Pt fit with [facility] 513 YK LI T aids coupled to his ears with 2M receivers and 12 tulip domes. Own voice processing set to max. Also performed feedback measures. Pt was unable to put the aid on top of his ear consistently. If I put the aid on his ear he was able to get the dome in the ear. Practiced several times. Pt stated he wanted to stop and he would practice at home. Pt states he probably will wear the aids for TV only. Encouraged pt to wear the aids more often during the 60 day trial period so he adjusts to the aids quicker. Taught pt how to use his project reservoir engineer, how to use the rocker to change volume, and how to change domes and filters. Pt has flip phone so he cannot use the luis manuel. Pt did not want to wear the aids home so aids were put in the case. Made follow up appointment and completed [facility] paperwork documented in this encounter [facility] 07-23-2024 History of Present illness Narrative Subjective Patient ID: Carson Morse is a 68 y.o. 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 Benign prostatic hyperplasia without urinary obstruction 06/21/2023 Current smoker 06/21/2023 Hoarse voice quality 06/21/2023 Lung nodules 12/18/2020 Malignant neoplasm of head, face and neck ([facility]/HCC) 12/18/2020 Mucositis due to radiation therapy 02/27/2018 Myelosuppression 03/24/2018 Severe protein-calorie malnutrition ([facility]/HCC) 02/27/2018 Closed right maxillary fracture ([facility]) 07/20/2023 Resolved Ambulatory Problems Diagnosis Date Noted History of tongue cancer 06/21/2023 Nocturia 06/21/2023 Past Medical History: Diagnosis Date COVID-19 10/2021 SCC (squamous cell carcinoma) 12/27/2017 Past Surgical History: Procedure Laterality Date VT LARYNGOSCOPY,DIRECT,DX,OP MICROSCOP 12/27/2017 No Known Allergies Current Outpatient Medications on File Prior to Visit Medication Sig Dispense Refill cefdinir (Omnicef) 300 MG capsule Take 300 mg by mouth in the morning and 300 mg before bedtime. Lactobacillus (FLORANEX PO) Floranex calcium carbonate 1250 MG/5ML Take 1,250 mg by mouth in the morning and 1,250 mg at noon and 1,250 mg in the evening. Take with meals. magnesium oxide (Mag-Ox) 400 mg tablet Take 400 mg by mouth in the morning. Multiple Vitamin (multivitamin) capsule Take 1 capsule by mouth in the morning. nicotine (Nicoderm, Step 1) 21 MG/24HR patch Place 1 patch on the skin 1 (one) time each day at the same time. omeprazole (PriLOSEC) [address] capsule Take 40 mg by mouth in the morning. Take before meals. Pediatric Multivitamins-Fl (MultiVitamin + Fluoride) 0.25 MG chewable tablet Multivitamin potassium chloride CR (KLOR-CON) 20 MEQ ER tablet Take 20 mEq by mouth in the morning and 20 mEq before bedtime. thiamine (Vitamin B-1) 100 MG tablet Take 100 mg by mouth in the morning. No current facility-administered medications on file prior to visit. Objective Last Recorded Vitals Vitals: 07/23/24 0853 BP: (!) 140/98 ENT Physical Exam Constitutional Appearance: patient appears well-developed and well-nourished, Oral Cavity/Oropharynx OC/OP comments: OC/OP/IDL - no mass or ulcer Neck Neck comments: Supple, FROM, No LAD Assessment/Plan Diagnoses and all orders for this visit: Tongue cancer ([facility]) CADEN today documented in this encounter [facility] 07-10-2024 History of Present illness Narrative History: Pt reports gradual decrease in his hearing, both ears. Pt states he can hear a pin drop on the floor but cannot hear the TV that is a few feet away from him. 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 Pt denies tinnitus. Otoscopic Exam: Right Ear: Cerumen impaction Left Ear: Non-occlusive cerumen Procedure: Cerumen removed from each ear canal under direct otoscopy using a curette without incident. TM intact post cleaning Pure Tone Audiometry Right Ear: 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 Left Ear: Mild to severe sensorineural hearing loss above 500 Hz Speech Audiometry Right SRT = 30 dB and word discrimination score at 75 dBHL (masked) = 92% Left SRT = 30 dB and word discrimination score at 80 dBHL (masked) = 92% Impressions: Bilateral sensorineural hearing loss with excellent WDS both ears Hearing Aid Discussion: Pt is good candidate for hearing aids and is eligible for hearing aids through his HCS Benefit. He decided on advanced level [place] aids in black and needs 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 He will owe $250 to [facility]. Explained HCS process to pt and made HAF in 6 weeks documented in this encounter [facility] 06-29-2024 Instructions Svetlana Call - 06/29/2024 12:[address] Neck Chest in 12/2024 Labs same day - include CBC, CMP RTC 1 week after with me to review Pursue annual scans and visits after December 2024 documented in this encounter [facility] 06-29-2024 History of Present illness Narrative Images from the original note were not included. NAME: LitoCarson [facility] NO.: [id number] DATE OF SERVICE: June 29, 2024 (marisapr) Some elements in this clinic note that are critical to medical decision making have been carefully reviewed and included from a prior clinic note dated: March 30, 2024 (Mirian) Additional Clinicians involved in Carson Morse's care: Dorothy Atkins Noma Dakhil CC: Head and neck cancer [...] Hepatitis C has been irradicated. PLAN: CT Neck Chest in 12/2024 Labs same day - include CBC, CMP RTC 1 week after with me to review Pursue annual scans and visits after December 2024 HPI: CASE HISTORY: Reverse Chronological Order 06/22/2024 - CT Chest: Previously identified new pulmonary nodules have resolved suggesting infectious/inflammatory process. No new suspicious appearing pulmonary nodules. Age indeterminant L1 compression fracture. 03/23/2024 - CT Chest: New subcentimeter nodular opacities measuring less than 5 mm. Consider follow-up to complete resolution. Other subcentimeter nodular opacities measuring 7 mm, stable since 12/16/22. New healing fracture deformities of several left ribs. Borderline mediastinal lymphadenopathy, stable. 02/24/2024 - ER after being found unresponsive, woke up after being given Narcan 01/31/2024 - ER after fall due to alcohol intoxication 12/16/2023 - CT Neck/Chest: Neck: Stable appearance of the soft tissues of the neck since 12/15/2022. No evidence of recurrent soft tissue mass or significant cervical lymphadenopathy by size criteria. Chest: Stable appearance of bilateral pulmonary nodules. No new or enlarging nodules are seen. Slight interval increase in size of a [...] new mass or adenopathy in the neck. 12/2017 - P16 positive head and neck cancer, in remission post chemotherapy/radiation Updated Visit, June 29, 2024: Thom returns today for a follow up. CT chest reveals the new pulmonary nodules have resolved, which suggests they were inflammatory. Scan shows CADEN. Will repeat his scan in 6 months, then pursue annual monitoring. Updated Visit, March 30, 2024: Thom returns today for a follow up. Recent CT scan shows a new 5mm nodule that we will continue monitoring. He is a current smoker, which may be the cause of the new nodule. He just had cataract surgery. He notes his strength is diminishing now that he is getting older. Updated Visit, December 19, 2023: Thom returns [...] organ systems. 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 Updated Visit, February 20, 2020: Carson Morse is a 63 year old male who [...] PERFORMANCE STATUS: 0 PHYSICAL EXAMINATION: Vitals: BP 153/90 Pulse 60 Temp (Src) 97.7 (Temporal) Resp 16 Ht 5' 5 (1.65m) SpO2 98% Body surface area is 1.71 meters squared. Exam limited to gross visualization [...] in the CT contrast administration guidelines link. levoFLOXacin (LEVAQUIN) 750 mg tablet Take 750 mg by mouth once daily. LABORATORY VALUES: WBC (k/uL) Date Value 06/22/2024 4.22 RBC (m/uL) Date Value 06/22/2024 3.94 (L) Hemoglobin (g/dL) Date Value 06/22/2024 12.8 (L) Hematocrit (%) Date Value 06/22/2024 35.9 (L) MCV (fL) Date Value 06/22/2024 91.1 MCH (pg) Date Value 06/22/2024 32.5 MCHC (g/dL) Date Value 06/22/2024 35.7 RDW-CV (%) Date Value 06/22/2024 13.2 Platelet Count (k/uL) Date Value 06/22/2024 182 MPV (fL) Date Value 06/22/2024 10.2 Glucose (mg/dL) Date Value 06/22/2024 104 (H) BUN (mg/dL) Date Value 06/22/2024 11 Creatinine (mg/dL) Date Value 06/22/2024 0.96 Sodium (mmol/L) Date Value 06/22/2024 132 (L) Potassium (mmol/L) Date Value 06/22/2024 5.0 Chloride (mmol/L) Date Value 06/22/2024 97 (L) CO2 (mmol/L) Date Value 06/22/2024 26 Protein, Total (g/dL) Date Value 06/22/2024 7.9 Albumin (g/dL) Date Value 06/22/2024 5.1 (H) Calcium, Total (mg/dL) Date Value 06/22/2024 10.3 (H) Alkaline Phosphatase (U/L) Date Value 06/22/2024 88 Bilirubin, Total (mg/dL) Date Value 06/22/2024 1.1 AST (U/L) Date Value 06/22/2024 33 ALT (U/L) Date Value 06/22/2024 15 DIAGNOSIS: (Z85.89) History of head and neck cancer (primary encounter diagnosis) Plan: CT NECK SOFT TISSUE W IVCON, iv contrast (will be provided with radiology test), CT CHEST W IVCON, iv contrast (will be provided with radiology test), COMPLETE BLOOD COUNT AND DIFFERENTIAL, COMPREHENSIVE METABOLIC PANEL (R91.8) Lung nodules Plan: CT NECK SOFT TISSUE W IVCON, iv contrast (will be provided with radiology test), CT CHEST W IVCON, iv contrast (will be provided with radiology test), COMPLETE BLOOD COUNT AND DIFFERENTIAL, COMPREHENSIVE METABOLIC PANEL PAST MEDICAL HISTORY 01/2018: Cancer (HCC) Comment: tongue cancer No date: Hoarse voice quality No date: 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) PAST SURGICAL HISTORY No date: ESOPHAGOSCOPY No date: LARYNGOSCOPY No date: REMV CATARACT EXTRACAP,INSERT LENS; Bilateral Social History Tobacco Use Smoking status: Every Day Current packs/day: 0.00 Average packs/day: 1 pack/day for 45.0 years (45.0 ttl pk-yrs) Types: Cigarettes Start date: 03/04/1973 Last attempt to quit: 03/04/2018 Years since quittin.3 Smokeless tobacco: Current Tobacco comments: started 1971 Vaping Use Vaping status: Never Used Substance Use Topics Alcohol use: Yes Comment: socially Drug use: Never Comment: quit 2007 FAMILY HISTORY Problem Relation Age of Onset Diabetes Mother Stroke Mother Diabetes Father Stroke Daughter Colon Cancer No Family History I spent a total of 20 minutes on the date of service which included preparing to see the patient, [id number] patient care, completing clinical documentation, performing a medically appropriate examination, counseling and educating the patient/family/caregiver, ordering medications, tests, or procedures, independently interpreting results (not separately reported), communicating results to the patient/family/caregiver, and care coordination (not separately reported). Wyatt Garza MD, CPE [facility]ology [facility] On[facility] Provided at: [place], [place] Scribe Attestation: This note was scribed by Svetlana Call on June 29, 2024 under the direction and supervision of Dr. Wyatt Garza. I attest that all of the information documented is correct to the best of my knowledge. Provider Attestation: I, Wyatt Garza MD, attest that all information documented by the above scribe is correct, and was supervised by me and under my direction. CC: Elba De La Cruz MD [address] [facility] [id number] Halima Nixon MD documented in this encounter [facility] 06-29-2024 Note HNO ID: [id number] Author: WYATT GARZA MD Service: ? Author Type: Physician Type: Progress Notes Filed: 06/30/2024 21:51 Note Text: NAME: Carson Morse CLINIC NO.: [id number] DATE OF SERVICE: June 29, 2024 (Mirian) Some elements in this clinic note that are critical to medical decision making have been carefully reviewed and included from a prior clinic note dated: March 30, 2024 (Mirian) Additional Clinicians involved in Carson Morse's care: Dorothy Atkins Noma Dakhil CC: Head and neck cancer [...] Hepatitis C has been irradicated. PLAN: CT Neck Chest in 12/2024 Labs same day - include CBC, CMP RTC 1 week after with me to review Pursue annual scans and visits after December 2024 HPI: CASE HISTORY: Reverse Chronological Order 06/22/2024 - CT Chest: Previously identified new pulmonary nodules have resolved suggesting infectious/inflammatory process. No new suspicious appearing pulmonary nodules. Age indeterminant L1 compression fracture. 03/23/2024 - CT Chest: New subcentimeter nodular opacities measuring less than 5 mm. Consider follow-up to complete resolution. Other subcentimeter nodular opacities measuring 7 mm, stable since 12/16/22. New healing fracture deformities of several left ribs. Borderline mediastinal lymphadenopathy, stable. 02/24/2024 - ER after being found unresponsive, woke up after being given Narcan 01/31/2024 - ER after fall due to alcohol intoxication 12/16/2023 - CT Neck/Chest: Neck: Stable appearance of the soft tissues of the neck since 12/15/2022. No evidence of recurrent soft tissue mass or significant cervical lymphadenopathy by size criteria. Chest: Stable appearance of bilateral pulmonary nodules. No new or enlarging nodules are seen. Slight interval increase in size of a [...] new mass or adenopathy in the neck. 12/2017 - P16 positive head and neck cancer, in remission post chemotherapy/radiation Updated Visit, June 29, 2024: Thom returns today for a follow up. CT chest reveals the new pulmonary nodules have resolved, which suggests they were inflammatory. Scan shows CADEN. Will repeat his scan in 6 months, then pursue annual monitoring. Updated Visit, March 30, 2024: Tohm returns today for a follow up. Recent CT scan shows a new 5mm nodule that we will continue monitoring. He is a current smoker, which may be the cause of the new nodule. He just had cataract surgery. He notes his strength is diminishing now that he is getting o (more content not included)... [facility] 06-22-2024 History of Present illness Narrative Radiology Service Progress Note DATE OF SERVICE: June 22, 2024 TIME: 8:31 AM PATIENT WEIGHT: 140LBS PATIENT IDENTITY VERIFICATION COMPLETED USING TWO (2) [...] CREATININE: Creatinine Date Value Ref Range Status 06/22/2024 0.96 0.73 - 1.22 mg/dL Final 03/23/2024 0.84 0.73 - 1.22 mg/dL Final 12/16/2023 0.84 0.73 - 1.22 mg/dL Final Estimated Glomerular Filtration Rate Date Value Ref Range Status 06/22/2024 87 >=60 mL/min/1.73m Final Comment: Estimated Glomerular Filtration Rate (eGFR) [...] RESULTS: POC done: Yes, See Lab Tab June 22, 2024 TREATMENT: N/A IV SITE: Ambulatory: A peripheral IV was started in the Right antecubital site with a Angio cath: 20 gauge. IV SITE APPEARANCE: Clean,Dry and Intact SIGNATURE: Roxann Mcgregor RN PATIENT NAME: Carson Morse DATE: June 22, 2024 TIME: 8:31 AM Radiology Service Progress Note PATIENT NAME: Carson Morse DATE OF SERVICE: June 22, 2024 TIME: 8:54 AM PATIENT IDENTITY VERIFICATION COMPLETED USING TWO (2) IDENTIFIERS: Name and Date of confirmed by patient verbally. FALL SCREENING: Has the patient had 2 falls in the last year or 1 fall with injury or currently using an Ambulatory Assistive Device (Walker, Cane, Wheelchair, Crutches, etc.)? No PATIENT GENDER DATA: Male PATIENT RELEVANT IMPLANT DATA REVIEWED: Not Applicable PATIENT PRESENTS WITH AN IMPLANTABLE OR ATTACHED SINGING TEACHER: No RADIOLOGY DEPARTMENT: CT; Exam(s) Completed: Chest PERIPHERAL IV DATA: Site assessment: Clean,Dry and Intact, Site disposition Discontinued SIGNED BY: ANNABELLE Stewart) June 22, 2024 8:54 AM documented in this encounter [facility] 06-22-2024 Note HNO ID: [id number] Author: SONJA MELGAR RT (R) Service: ? Author Type: Technologist Type: Progress Notes Filed: 06/22/2024 08:56 Note Text: Radiology Service Progress Note PATIENT NAME: Carson Morse DATE OF SERVICE: June 22, 2024 TIME: 8:54 AM PATIENT IDENTITY VERIFICATION COMPLETED USING TWO (2) IDENTIFIERS: Name and Date of confirmed by patient verbally. FALL SCREENING: Has the patient had 2 falls in the last year or 1 fall with injury or currently using an Ambulatory Assistive Device (Walker, Cane, Wheelchair, Crutches, etc.)? No PATIENT GENDER DATA: Male PATIENT RELEVANT IMPLANT DATA REVIEWED: Not Applicable PATIENT PRESENTS WITH AN IMPLANTABLE OR ATTACHED SINGING TEACHER: No RADIOLOGY DEPARTMENT: CT; Exam(s) Completed: Chest PERIPHERAL IV DATA: Site assessment: Clean,Dry and Intact, Site disposition Discontinued SIGNED BY: ANNABELLE Stewart) June 22, 2024 8:54 AM [facility] 06-22-2024 Note HNO ID: [id number] Author: ROXANN MCGREGOR RN Service: ? Author Type: Registered Nurse Type: Progress Notes Filed: 06/22/2024 08:31 Note Text: Radiology Service Progress Note DATE OF SERVICE: June 22, 2024 TIME: 8:31 AM PATIENT WEIGHT: 140LBS PATIENT IDENTITY VERIFICATION COMPLETED USING TWO (2) [...] CREATININE: Creatinine Date Value Ref Range Status 06/22/2024 0.96 0.73 - 1.22 mg/dL Final 03/23/2024 0.84 0.73 - 1.22 mg/dL Final 12/16/2023 0.84 0.73 - 1.22 mg/dL Final Estimated Glomerular Filtration Rate Date Value Ref Range Status 06/22/2024 87 >=60 mL/min/1.73m? Final Comment: Estimated Glomerular Filtration [...] RESULTS: POC done: Yes, See Lab Tab June 22, 2024 TREATMENT: N/A IV SITE: Ambulatory: A peripheral IV was started in the Right antecubital site with a Angio cath: 20 gauge. IV SITE APPEARANCE: Clean,Dry and Intact SIGNATURE: Roxann Mcgregor RN PATIENT NAME: Carson Morse DATE: June 22, 2024 TIME: 8:31 AM [facility] 06-12-2024 Telephone encounter Note ----- Message from Halima Nixon MD sent at 06/10/2024 7:07 PM EDT ----- US showed fatty liver There is questionable minimal nodularity on the contour of the liver which may reflect mild/early cirrhosis Multiple small gallbladder polyps, the largest of which measures 0.4 cm Repeat US with AFP in 6 months Order Fibroscan Halima Nixon MD Reviewed test results Called and spoke to patient regarding test results and recommendation from Dr. Leon Lund, Orders submitted for Fibroscan (now), AFP 6 months, and standing order for repeat US Q 6 months. Please review and sign Emily Hi RN [facility] 06-12-2024 Miscellaneous Notes ----- Message from Halima Nixon MD sent at 06/10/2024 7:07 PM EDT ----- US showed fatty liver There is questionable minimal nodularity on the contour of the liver which may reflect mild/early cirrhosis Multiple small gallbladder polyps, the largest of which measures 0.4 cm Repeat US with AFP in 6 months Order Fibroscan Halima Nixon MD Reviewed test results Called and spoke to patient regarding test results and recommendation from Dr. Leon Lund, Orders submitted for Fibroscan (now), AFP 6 months, and standing order for repeat US Q 6 months. Please review and sign Emily Hi RN documented in this encounter [facility] 05-28-2024 History of Present illness Narrative Radiology Service Progress Note PATIENT NAME: Carson Morse DATE OF SERVICE: May 28, 2024 TIME: 1:49 PM PATIENT IDENTITY VERIFICATION COMPLETED USING TWO (2) IDENTIFIERS: Name and Date of confirmed by patient verbally. FALL SCREENING: Has the patient had 2 falls in the last year or 1 fall with injury or currently using an Ambulatory Assistive Device (Walker, Cane, Wheelchair, Crutches, etc.)? No PATIENT GENDER DATA: Male PATIENT RELEVANT IMPLANT DATA REVIEWED: Not Applicable PATIENT PRESENTS WITH AN IMPLANTABLE OR ATTACHED SINGING TEACHER: No RADIOLOGY DEPARTMENT: Ultrasound PERIPHERAL IV DATA: Not applicable SIGNED BY: Melba Ag RDMS May 28, 2024 1:49 PM documented in this encounter [facility] 05-28-2024 Note HNO ID: [id number] Author: MELBA AG RDMS Service: Radiology Author Type: Staff Pharmacist Type: Progress Notes Filed: 05/28/2024 13:57 Note Text: Radiology Service Progress Note PATIENT NAME: Carson Morse DATE OF SERVICE: May 28, 2024 TIME: 1:49 PM PATIENT IDENTITY VERIFICATION COMPLETED USING TWO (2) IDENTIFIERS: Name and Date of confirmed by patient verbally. FALL SCREENING: Has the patient had 2 falls in the last year or 1 fall with injury or currently using an Ambulatory Assistive Device (Walker, Cane, Wheelchair, Crutches, etc.)? No PATIENT GENDER DATA: Male PATIENT RELEVANT IMPLANT DATA REVIEWED: Not Applicable PATIENT PRESENTS WITH AN IMPLANTABLE OR ATTACHED SINGING TEACHER: No RADIOLOGY DEPARTMENT: Ultrasound PERIPHERAL IV DATA: Not applicable SIGNED BY: Melba Ag RDMS May 28, 2024 1:49 PM [facility] 05-24-2024 Telephone encounter Note ----- Message from Halima Nixon MD sent at 05/23/2024 2:56 PM EDT ----- Negative hep C RNA consistent with sustained response Repeat in one year Reviewed test results Pt read result message from Dr. Nixon via [employer]. Called and spoke to patient regarding test results and recommendation from Dr. Nixon Pt [facility] is sched for [facility] [place] Demonstrated understanding Dr. Lund, Orders submitted for repeat Hep C RNA Please review and sign Emily Hi RN [facility] 05-24-2024 Miscellaneous Notes ----- Message from Halima Nixon MD sent at 05/23/2024 2:56 PM EDT ----- Negative hep C RNA consistent with sustained response Repeat in one year Reviewed test results Pt read result message from Dr. Nixon via [employer]. Called and spoke to patient regarding test results and recommendation from Dr. Nixon Pt state [facility] is sched for [facility] at [place] Demonstrated understanding Dr. Lund, Orders submitted for repeat Hep C RNA Please review and sign Emily Hi RN documented in this encounter [facility] 05-21-2024 Telephone encounter Note Called and updated pt on scheduling [place] Phone number provided for scheduling Also instructed to complete lab draw at [facility] facility Pt demonstrated understanding Emily Armstrong RN [facility] 05-21-2024 Miscellaneous Notes Called and updated pt on scheduling [place] Phone number provided for scheduling Also instructed to complete lab draw at [facility] facility Pt demonstrated understanding Emily Armstrong RN ----- Message from Halima Nixon MD sent at 05/17/2024 1:24 PM EDT ----- This patient needs RUQ US and HCV RNA ND Dr. Nixon, Please review and sign orders, Emily Hi RN documented in this encounter [facility] 05-17-2024 Telephone encounter Note ----- Message from Halima Nixon MD sent at 05/17/2024 1:24 PM EDT ----- This patient needs RUQ US and HCV RNA ND Dr. Nixon, Please review and sign orders, Emily Hi RN [facility] 03-30-2024 Instructions Svetlana Rdz - 03/30/2024 2:[address] Chest with labs in 3 months RTC 1 week after to review documented in this encounter [facility] 03-30-2024 History of Present illness Narrative Images from the original note were not included. NAME: Carson Morse CLINIC NO.: [id number] DATE OF SERVICE: March 30, 2024 (marisapr) Some elements in this clinic note that are critical to medical decision making have been carefully reviewed and included from a prior clinic note dated: December 19, 2023 (Mirian) Additional Clinicians involved in Carson Morse's care: Dorothy Baez Noma Dakhil CC: Head and neck [...] C has been irradicated. PLAN: CT Chest with labs in 3 months RTC 1 week after to review If CT Chest clear then pursue routine annual visits due December 2024 CT Neck Chest in 12/2024 months labs same day include CBC, CMP RTC 1 week after with me to review HPI: CASE HISTORY: Reverse Chronological Order 03/23/2024 - CT Chest: New subcentimeter nodular opacities measuring less than 5 mm. Consider follow-up to complete resolution. Other subcentimeter nodular opacities measuring 7 mm, stable since 12/16/22. New healing fracture deformities of several left ribs. Borderline mediastinal lymphadenopathy, stable. 02/24/2024 - ER after being found unresponsive, woke up after being given Narcan 01/31/2024 - ER after fall due to alcohol intoxication 12/16/2023 - CT Neck/Chest: Neck: Stable appearance of the soft tissues of the neck since 12/15/2022. No evidence of recurrent soft tissue mass or significant cervical lymphadenopathy by size criteria. Chest: Stable appearance of bilateral pulmonary nodules. No new or enlarging nodules are seen. Slight interval increase in size of a [...] new mass or adenopathy in the neck. 12/2017 - P16 positive head and neck cancer, in remission post chemotherapy/radiation Updated Visit, March 30, 2024: Thom returns today for a follow up. Recent CT scan shows a new 5mm nodule that we will continue monitoring. He is a current smoker, which may be the cause of the new nodule. He just had cataract surgery. He notes his strength is diminishing now that he is getting older. Updated Visit, December 19, 2023: Thom returns [...] organ systems. 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 Updated Visit, February 20, 2020: Carson Morse is a 63 year old male who [...] PERFORMANCE STATUS: 0 PHYSICAL EXAMINATION: Vitals: BP 129/79 Pulse 82 Temp (Src) 97.2 (Temporal) Resp 16 Ht 5' 5 (1.65m) Wt 141 lb 3.2 oz (64.0kg) SpO2 98% BMI 23.50 kg/(m^2). Body surface area is 1.71 meters squared. Exam limited to gross visualization [...] Take 1 capsule by mouth every afternoon. levoFLOXacin (LEVAQUIN) 750 mg tablet Take 750 mg by mouth once daily. (Patient not taking: Reported on 03/30/2024) LABORATORY VALUES: WBC (k/uL) Date Value 12/16/2023 [...] Value 12/16/2023 12 Creatinine (mg/dL) Date Value 03/23/2024 0.84 Sodium (mmol/L) Date Value 12/16/2023 135 [...] (U/L) Date Value 12/16/2023 9 (L) DIAGNOSIS: (Z85.89) History of head and neck cancer (primary encounter diagnosis) Plan: CT CHEST W IVCON, iv contrast (will be provided with radiology test), COMPLETE BLOOD COUNT AND DIFFERENTIAL, COMPREHENSIVE METABOLIC PANEL (R91.8) Lung nodules Plan: CT CHEST W IVCON, iv contrast (will be provided with radiology test), COMPLETE BLOOD COUNT AND DIFFERENTIAL, COMPREHENSIVE METABOLIC PANEL PAST MEDICAL HISTORY Diagnosis Date Cancer (HCC) [...] Last attempt to quit: 03/04/2018 Years since quittin.0 Smokeless tobacco: Current Tobacco comments: started 1971 [...] which included preparing to see the patient, [id number] patient care, completing clinical documentation, performing a medically appropriate examination, counseling and educating the patient/family/caregiver, ordering medications, tests, or procedures, independently interpreting results (not separately reported), communicating results to the patient/family/caregiver, and care coordination (not separately reported). Wyatt Garza MD, CPE Hematology and Oncology Services Provided at: [place], [place] Scribe Attestation: This note was scribed by Svetlana Rdz on March 30, 2024 under the direction and supervision of Dr. Wyatt Garza. I attest that all of the information documented is correct to the best of my knowledge. Provider Attestation: I, Wyatt Garza MD, attest that all information documented by the above scribe is correct, and was supervised by me and under my direction. CC: Elba De La Cruz MD [address] [facility] [id number] Halima Nixon MD documented in this encounter [facility] 03-30-2024 Note HNO ID: [id number] Author: WYATT GARZA MD Service: ? Author Type: Physician Type: Progress Notes Filed: 04/01/2024 09:31 Note Text: NAME: Carson Morse CLINIC NO.: [id number] DATE OF SERVICE: March 30, 2024 (Mirian) Some elements in this clinic note that are critical to medical decision making have been carefully reviewed and included from a prior clinic note dated: December 19, 2023 (Mirian) Additional Clinicians involved in Carson Morse's care: Dorothy Baez Noma Dakhil CC: Head and neck [...] C has been irradicated. PLAN: CT Chest with labs in 3 months RTC 1 week after to review If CT Chest clear then pursue routine annual visits due December 2024 CT Neck Chest in 12/2024 months labs same day include CBC, CMP RTC 1 week after with me to review HPI: CASE HISTORY: Reverse Chronological Order 03/23/2024 - CT Chest: New subcentimeter nodular opacities measuring less than 5 mm. Consider follow-up to complete resolution. Other subcentimeter nodular opacities measuring 7 mm, stable since 12/16/22. New healing fracture deformities of several left ribs. Borderline mediastinal lymphadenopathy, stable. 02/24/2024 - ER after being found unresponsive, woke up after being given Narcan 01/31/2024 - ER after fall due to alcohol intoxication 12/16/2023 - CT Neck/Chest: Neck: Stable appearance of the soft tissues of the neck since 12/15/2022. No evidence of recurrent soft tissue mass or significant cervical lymphadenopathy by size criteria. Chest: Stable appearance of bilateral pulmonary nodules. No new or enlarging nodules are seen. Slight interval increase in size of a [...] new mass or adenopathy in the neck. 12/2017 - P16 positive head and neck cancer, in remission post chemotherapy/radiation Updated Visit, March 30, 2024: Thom returns today for a follow up. Recent CT scan shows a new 5mm nodule that we will continue monitoring. He is a current smoker, which may be the cause of the new nodule. He just had cataract surgery. He notes his strength is diminishing now that he is getting older. Updated Visit, December 19, 2023: Thom returns [...] Continues to smoke but is going to tr (more content not included)... [facility] 03-23-2024 History of Present illness Narrative RADIOLOGY SERVICE PROGRESS NOTE SERVICE DATE: 03/23/2024 SERVICE TIME: 9:22 AM PATIENT IDENTITY VERIFICATION COMPLETED USING TWO (2) STANDARD IDENTIFIERS: Name and Date of confirmed by patient verbally FALL SCREENING: Has the patient had 2 falls in the last year or 1 fall with injury or currently using an Ambulatory Assistive Device (Walker, Cane, Wheelchair, Crutches, etc.)? No PATIENT GENDER DATA: .male ALLERGIES: Reviewed and unchanged MEDICATIONS REVIEWED: Not applicable PATIENT RELEVANT IMPLANT DATA REVIEWED: Not Applicable PATIENT PRESENTS WITH AN IMPLANTABLE OR ATTACHED SINGING TEACHER: No CREATININE: Creatinine Date Value Ref Range Status 03/23/2024 0.84 0.73 - 1.22 mg/dL Final 12/16/2023 0.84 0.73 - 1.22 mg/dL Final 12/15/2022 0.73 0.73 - 1.22 mg/dL Final Estimated Glomerular Filtration Rate Date Value Ref Range Status 03/23/2024 96 >=60 mL/min/1.73m Final Comment: Estimated Glomerular Filtration Rate (eGFR) [...] Range Status 12/16/2021 >60 Final P.O.C.T. RESULTS: N/A March 23, [address] PERFORMED: Yes. RADIOLOGIST NOTIFIED?: No CONTRAST ALLERGY: NO. PREMEDICATED: No CONTRAST: IV 50 ml IV contrast (300) given DIABETIC PATIENT: Not applicable IV SITE: Ambulatory: A peripheral IV was started in the Right antecubital site with a Angio cath: 20 gauge. POST EXAM PIV STATUS: Discontinued PROCEDURE TYPE: CT Chest with contrast PATIENT DISCHARGED TO: Ambulatory patient, left [place] department area. A Diagnostic radioactive procedure has taken place, with no further precautions necessary other than routine body substance precautions. More information regarding radiation safety can be found using this link: [email or web address] [email or web address]-%20Diagnostic%20N uclear%20Medicine%20Procedures.p df SIGNATURE: ANNABELLE Stewart) PATIENT NAME: Carson Morse DATE: March 23, 2024 TIME: 9:22 AM PAGER/CONTACT #: documented in this encounter [facility] 03-23-2024 Note HNO ID: [id number] Author: SONJA MELGAR RT(R) Service: ? Author Type: Technologist Type: Progress Notes Filed: 03/23/2024 09:25 Note Text: RADIOLOGY SERVICE PROGRESS NOTE SERVICE DATE: 03/23/2024 SERVICE TIME: 9:22 AM PATIENT IDENTITY VERIFICATION COMPLETED USING TWO (2) STANDARD IDENTIFIERS: Name and Date of confirmed by patient verbally FALL SCREENING: Has the patient had 2 falls in the last year or 1 fall with injury or currently using an Ambulatory Assistive Device (Walker, Cane, Wheelchair, Crutches, etc.)? No PATIENT GENDER DATA: .male ALLERGIES: Reviewed and unchanged MEDICATIONS REVIEWED: Not applicable PATIENT RELEVANT IMPLANT DATA REVIEWED: Not Applicable PATIENT PRESENTS WITH AN IMPLANTABLE OR ATTACHED SINGING TEACHER: No CREATININE: Creatinine Date Value Ref Range Status 03/23/2024 0.84 0.73 - 1.22 mg/dL Final 12/16/2023 0.84 0.73 - 1.22 mg/dL Final 12/15/2022 0.73 0.73 - 1.22 mg/dL Final Estimated Glomerular Filtration Rate Date Value Ref Range Status 03/23/2024 96 >=60 mL/min/1.73m? Final Comment: Estimated Glomerular [...] Range Status 12/16/2021 >60 Final P.O.C.T. RESULTS: N/A March 23, [address] PERFORMED: Yes. RADIOLOGIST NOTIFIED?: No CONTRAST ALLERGY: NO. PREMEDICATED: No CONTRAST: IV 50 ml IV contrast (300) given DIABETIC PATIENT: Not applicable IV SITE: Ambulatory: A peripheral IV was started in the Right antecubital site with a Angio cath: 20 gauge. POST EXAM PIV STATUS: Discontinued PROCEDURE TYPE: CT Chest with contrast PATIENT DISCHARGED TO: Ambulatory patient, left [place] department area. A Diagnostic radioactive procedure has taken place, with no further precautions necessary other than routine body substance precautions. More information regarding radiation safety can be found using this link: [email or web address] 0Protection%20-% 20Diagnostic%20Nuclear%20Medicin e%20Procedures.pdf SIGNATURE: Sonja Melgar RT(R) PATIENT NAME: Carson Morse DATE: March 23, 2024 TIME: 9:22 AM PAGER/CONTACT #: [facility] 12-19-2023 Miscellaneous Notes Pt informed of Frankie's message and denies any questions, needs or concerns at this time.(Pt had appt today with Frankie and discussed) Appointments verified. Zeny Tom RN ----- Message from Wyatt Garza MD sent at 12/17/2023 8:59 AM EST ----- Scans are stable - I will discuss at his appointment. documented in this encounter [facility] 12-19-2023 Instructions Svetlana Rdz - 12/19/2023 10:[address] Chest in 6 weeks RTC 1 week after to review If CT Chest clear then pursue routine annual visits documented in this encounter [facility] 12-19-2023 History of Present illness Narrative Images from the original note were not included. NAME: Carson Morse CLINIC NO.: [id number] DATE OF SERVICE: December 19, 2023 (rosa m) Some elements in this clinic note that are critical to medical decision making have been carefully reviewed and included from a prior clinic note dated: December 16, 2022 (Mirian) Additional Clinicians involved in Carson Morse's care: Dorothy Baez Noma Dakhil CC: Head and neck [...] organ systems. 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 Updated Visit, February 20, 2020: Carson Morse is a 63 year old male who [...] which included preparing to see the patient, tfsq-sf-ybiz patient care, completing clinical documentation, performing a medically appropriate examination, counseling and educating the patient/family/caregiver, ordering medications, tests, or procedures, independently interpreting results (not separately reported), communicating results to the patient/family/caregiver, and care coordination (not separately reported). Wyatt Garza MD, CPE Hematology and Oncology Services Provided at: [place], [place] Scribe Attestation: This note was scribed [...] me and under my direction. CC: Elba De La Cruz MD [address] [facility] [facility] [address] Halima Nixon MD documented in this encounter [facility] 12-16-2023 History of Present illness Narrative Radiology Service Progress Note DATE OF SERVICE: [...] Value Ref Range Status 12/16/2023 96 >=60 mL/min/1.73m Final Comment: Estimated Glomerular Filtration Rate (eGFR) [...] SITE APPEARANCE: Clean,Dry and Intact SIGNATURE: Roxann Mcgregor RN PATIENT NAME: Carson Morse DATE: December 16, 2023 TIME: 10:05 AM Radiology Service Progress Note PATIENT NAME: Carson Morse DATE OF SERVICE: December 16, 2023 TIME: [...] and Intact, Site disposition Discontinued SIGNED BY: RT Terry(R) December 16, 2023 10:54 AM documented in this encounter [facility] 12-28-2022 Note PROCEDURE: XR ANKLE RT [...] being called to the office of Dr. De La Cruz. Electronically authenticated by: DARRELL SPRING Date: 2022-12-28 07:42 [facility] 12-16-2022 Instructions Wyatt Garza MD - 12/16/2022 11:[address] Neck Chest in 12 months labs same day Labs in 1 year with scans include CBC, CMP RTC in 12 months with me to review Patient to continue follow up with Dr. Leon RAWLS documented in this encounter [facility] 12-16-2022 History of Present illness Narrative Images from the original note were not included. NAME: Carson Morse CLINIC NO.: [id number] DATE OF SERVICE: December 17, 2021 Some elements in this clinic note that are critical to medical decision making have been carefully reviewed and included from a prior clinic note dated: December 18, 2020 Additional Clinicians involved in Carson Morse's care: Dorothy Baez Noma Dakhil CC: Head and neck [...] organ systems. 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 Updated Visit, February 20, 2020: Carson Morse is a 63 year old male who [...] which included preparing to see the patient, jnay-ip-citm patient care, completing clinical documentation, performing a medically appropriate examination, counseling and educating the patient/family/caregiver, ordering medications, tests, or procedures, and independently interpreting results (not separately reported). Wyatt Garza MD, [place], [place] CC: Wyatt Garza MD [address] [place] [address] [facility] [id number] Elba De La Cruz MD [address] [facility] [address] Halima Nixon MD documented in this encounter [facility] 12-15-2022 History of Present illness Narrative Radiology Service Progress Note DATE OF SERVICE: December 15, 2022 TIME: 8:23 AM PATIENT WEIGHT: 152 LBS PATIENT IDENTITY VERIFICATION COMPLETED USING TWO (2) [...] CREATININE: Creatinine Date Value Ref Range Status 12/15/2022 0.73 0.73 - 1.22 mg/dL Final 12/16/2021 0.74 0.73 - 1.22 mg/dL Final 06/11/2021 0.74 0.73 - 1.22 mg/dL Final 06/11/2021 0.74 0.73 - 1.22 mg/dL Final Estimated Glomerular Filtration Rate Date Value Ref Range Status 12/15/2022 100 >=60 mL/min/1.73m Final Comment: Estimated Glomerular Filtration Rate (eGFR) [...] POC done: Yes, See Lab Tab December 15, 2022 TREATMENT: No Hydration needed. IV SITE: Ambulatory: A peripheral IV was started in the Right antecubital site with a Angio cath: 20 gauge. IV SITE APPEARANCE: Clean,Dry and Intact SIGNATURE: Jazmine Galindo RN PATIENT NAME: Carson Morse DATE: December 15, 2022 TIME: 8:23 AM Radiology Service Progress Note PATIENT NAME: Carson Morse DATE OF SERVICE: December 15, 2022 TIME: 9:40 AM PATIENT IDENTITY VERIFICATION COMPLETED USING TWO [...] and Intact, Site disposition Discontinued SIGNED BY: RT Terry(R) December 15, 2022 9:40 AM documented in this encounter [facility] 07-16-2022 History of Present illness Narrative Medication(s): Epclusa Total duration of treatment: 12 weeks Estimated Start Date: 01/23 Estimated Completion Date: 04/17 Estimated SVR 07/10/22 Due for SVR12 lab at this time. Bhavya Cohen RPh Clinical Pharmacist, Hepatology and Biologics [facility] P: ; F: Pool: P CC SPEC GROUP 2 ([id number]) documented in this encounter [facility] 06-17-2022 History of Present illness Narrative Radiation Oncology - Follow Up [...] imaging. Likely benign. Continue surveillance. Signed by: Marleni Atkins MD cc: Elba De La Cruz MD [address] [place] [id number] Fiore documented in this encounter [facility] 06-09-2022 Miscellaneous Notes Please sign pended labs for upcoming visit. Tory Self RN documented in this encounter [facility] 04-15-2022 History of Present illness Narrative [facility] Visit Assessment - Hepatology: [...] provider regarding future tests. Ruddy Gaffney CPhT [facility] documented in this encounter [facility] 04-06-2022 Hospital Discharge instructions Patient Education 04/06/2022 11:59:09 Hematuria, Adult [...] Follow these instructions at home: Medicines Take swxe-ezs-kpgklfc and prescription medicines only as told by [...] or the blood stops without treatment. Take byag-qtu-udfmaei and prescription medicines only as told by your health care provider. Drink enough fluid to keep your urine clear or pale yellow. This information is not intended to replace advice given to you by your health care provider. Make sure you discuss any questions you have with your health care provider. Document Released: 10/24/2006 Document Revised: 03/19/2020 Document Reviewed: 11/26/2017 [employer] Patient Education 2019 [employer]. Follow Up Care 08/27/2021 11:36:33 With:Herve Flores MD, Sushil De Leon, URO Address: [facility] [address] [place] [address]- When:04/06/2023 Comments:w/psa [facility] 03-22-2022 Miscellaneous Notes Pt aware of results and to get blood work repeated in 3 months. ----- Message from Halima Nixon MD sent at 03/19/2022 3:58 PM EDT ----- Liver enzymes are stable Didn't improve that much The HCV RNA Is negative consistent with viral response Repeat LFTs and HCV RNA in 3 months documented in this encounter [facility] 03-11-2022 History of Present illness Narrative [facility] Refill Assessment Medication(s): [...] Will proceed with refill with no changes. [facility] Visit Assessment - Hepatology: Is pre-assessment?: No Is initial or refill assessment?: Yes Assessment to use: Refill Non-Clinical Assessment: Patient confirmed: Yes Med/dose confirmed: Yes Supplies needed: N/A Missed doses: No Estimated days supply on hand: 10 Next cycle/dose due: 03/12/2022 Copay amount: 0 Payment confirmed: Yes Address confirmed: Yes Delivery method: FedEx Delivery address: [address] [place] [id number] Delivery date: 03/15/2022 Patient has questions: No [...] if on ribavirin: N/A Ruddy Gaffney CPhT [facility] Inflammatory & Neurology [facility] documented in this encounter [facility] 02-11-2022 History of Present illness Narrative [facility] Special[facility] Refill Assessment Medication(s): Epclusa (2 of 3) Total duration of treatment: 12 weeks Estimated Start Date: 01/23 Estimated Completion Date: 04/17 Estimated SVR 07/10/22 Labs have been ordered but not yet collected. Goal remains to complete full treatment. Unable to assess compliance although patient does not report missed doses. Bhavya Cohen RPh Clinical Pharmacist, Hepatology and Biologics [facility] P: ; F: Pool: P CC SPEC GROUP 2 ([id number]) Therapy continues to be appropriate for disease, patient response, and medical condition. Verification of therapeutic benefit and effectiveness with current therapy. Adverse events, barriers in adherence, and side effects assessed and addressed. Will proceed with refill with no changes. [facility] Visit Assessment - Hepatology: Is pre-assessment?: No Is initial or refill assessment?: Yes Assessment to use: Refill Non-Clinical Assessment: Patient confirmed: Yes Med/dose confirmed: Yes Supplies needed: N/A Missed doses: No Estimated days supply on hand: 8 Next cycle/dose due: 02/12/2022 Copay amount: 0 Payment confirmed: Yes Address confirmed: Yes Delivery method: FedEx Delivery address: [address] [place] [id number] Delivery date: 02/15/2022 Patient has questions: No Refill Assessment: Concurrent med therapy screening: Yes Adverse reactions and mitigation: Yes Hepatitis C RNA level at 12 weeks after end of therapy with additional testing as clinically indicated: Yes Hepatic function panel, eGFR: Yes CBC after 2 weeks if on ribavirin: N/A Ruddy Gaffney documented in this encounter [facility] 01-28-2022 Miscellaneous Notes Spoke with pt. Advised to get blood work in 3 weeks. Images from the original note were not included. Pended standing blood work while on Epclusa NOLAN Trinh MD Cindi O'Neill, RN Previous Messages ----- Message ----- From: Bhavya Cohen RPh Sent: 01/20/2022 3:00 PM EDT To: Halima Nixon MD FYI - Pt is scheduled to receive shipment of Epclusa on 01/22 and will start 01/23. Patient informed to contact office to schedule pertinent labs while on treatment. Full details on cost and medication counseling in this encounter. Bhavya Hi documented in this encounter [facility] 12-16-2021 History of Present illness Narrative Radiology Service Progress Note DATE OF SERVICE: December 16, 2021 TIME: 8:24 AM PATIENT WEIGHT: 153LBS PATIENT IDENTITY VERIFICATION [...] RISK FACTORS: Patient age > 60 years and History of Kidney surgery, Kidney neoplasm, Liver disease, and/or any recent Nephrotoxic Chemotherapy or other Nephrotoxic medications CREATININE: Creatinine Date Value Ref Range Status 12/16/2021 0.74 0.73 - 1.22 mg/dL Final 06/11/2021 0.74 0.73 - 1.22 mg/dL Final 06/11/2021 0.74 0.73 - 1.22 mg/dL Final eGFR-All Other Races Date Value Ref Range Status 12/16/2021 >60 . Final Comment: eGFR (Estimated GFR) Units of measure: mL/min/1.73 meters squared eGFR is derived from the reexpressed MDRD Study equation using the following parameters: serum creatinine, age, gender and race. The creatinine assay has been calibrated to be traceable to IDMS. An eGFR <60 mL/min/1.73m2 for >3 months is consistent with chronic kidney disease. Refer to KDOQI guidelines for clinical interpretation. In patients with unstable renal function, e.g. those with acute kidney injury, the eGFR may not accurately reflect actual GFR. Note: On 01/02/2022, the eGFR calculation will be updated to the NKF-ASN Task Force recommended 2020 CKD-EPI creatinine equation which does not include a race variable. For more information or to access a 2020 CKD-EPI calculator, visit the National Kidney Foundation website at kidney.org/professionals/kdoqi/g fr_calculator. eGFR- Date Value Ref Range Status 12/16/2021 >60 Final P.O.C.T. RESULTS: POC done: Yes, See Lab Tab December 16, 2021 TREATMENT: No Hydration needed. IV SITE: Ambulatory: A peripheral IV was started in the Right antecubital site with a Angio cath: 20 gauge. IV SITE APPEARANCE: Clean,Dry and Intact SIGNATURE: Jazmine Galindo RN PATIENT NAME: Carson Morse DATE: December 16, 2021 TIME: 8:24 AM Radiology Service Progress Note PATIENT NAME: Carson Morse DATE OF SERVICE: December 16, 2021 TIME: 8:33 AM PATIENT IDENTITY VERIFICATION COMPLETED USING TWO [...] and Intact, Site disposition Discontinued SIGNED BY: RT Terry(R) December 16, 2021 8:33 AM documented in this encounter [facility] Evaluation + Plan note Future Appointments Appointment Date:04/12/2023 08:00:00 AM Scheduled Provider:Sushil Edgar Jr., MD Location:[facility] Appointment Type:URO Office Visit Diagnostic Tests PendingPSA Total 04/06/22 [facility] Evaluation note Diagnosis Hepatitis C antibody positive in blood- Primary [facility] Diagnosis Chronic hepatitis C without hepatic coma (HCC)- Primary Chronic hepatitis C without mention of hepatic coma [facility] Diagnosis Effects of radiation, sequela- Primary [facility] Diagnosis Effects of radiation, sequela- Primary Head and neck cancer (HCC) Malignant neoplasm of head, face, and neck documented in this encounter [facility]* Diagnosis Chronic hepatitis C with hepatic coma (HCC)- Primary Chronic hepatitis C with hepatic coma documented in this encounter [facility]* Diagnosis Malignant neoplasm of head, 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, face, and neck Lung nodules Other nonspecific abnormal finding of lung field Disorder of thyroid Unspecified disorder of thyroid [facility] Diagnosis Localized enlarged lymph nodes- Primary Enlargement of lymph nodes Severe protein-calorie malnutrition (HCC) Other severe protein-calorie malnutrition Malignant neoplasm of head, 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, face, and neck History of head and neck cancer [facility] Diagnosis History of head and neck cancer- Primary Lung nodules Other nonspecific abnormal finding of lung field [facility] Diagnosis Chronic hepatitis C without hepatic coma (HCC)- Primary Chronic hepatitis C without mention of hepatic coma Abnormal LFTs Other abnormal blood chemistry [facility] Diagnosis Chronic hepatitis C without hepatic coma (HCC)- Primary Chronic hepatitis C without mention of hepatic coma documented in this encounter [facility] ClinicEvaluation note* Diagnosis Abnormal LFTs Other abnormal blood chemistry Chronic hepatitis C without hepatic coma (HCC) Chronic hepatitis C without mention of hepatic coma [facility] Diagnosis Fatty liver- Primary Other chronic nonalcoholic liver disease [facility] Diagnosis History of head and neck cancer- Primary Lung nodules Other nonspecific abnormal finding of lung field [facility] Diagnosis History of head and neck cancer Lung nodules Other nonspecific abnormal finding of lung field [facility] Diagnosis Localized enlarged lymph nodes Enlargement of lymph nodes History of head and neck cancer [facility] Diagnosis Lung nodules Other nonspecific abnormal finding of lung field [facility] Diagnosis Malignant neoplasm of head, 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, face, and neck Lung nodules Other nonspecific abnormal finding of lung field Disorder of thyroid Unspecified disorder of thyroid [facility]* Diagnosis Sensorineural hearing loss (SNHL) of both ears- Primary [facility] Diagnosis 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, unspecified site documented in this encounter [facility]* Diagnosis Sensorineural hearing loss (SNHL) of both ears- Primary [facility] Diagnosis History of head and neck cancer Lung nodules Other nonspecific abnormal finding of lung field Fatty liver Other chronic nonalcoholic liver disease [facility] Diagnosis History of head and neck cancer- Primary Lung nodules Other nonspecific abnormal finding of lung field [facility] Narrative No data available for this section [facility] [employer] reason for referral (narrative)* Diagnostic Procedure Only (Routine) - Authorized Specialty Diagnoses / Procedures Referred By Contac t Referred To Contact US IMAGING Diagnoses Abnormal LFTs Chronic hepatitis C without hepatic coma (HCC) Procedures US ABD RIGHT UPPER QUADRANT US ABDOMINAL REAL [place] [address] [facility] [place] [address] Us Imaging [facility] Referral ID Status Reason Start Date Expiration Date Visits Requested Visits Authorized [id number] Authorized Auto-Generat ed Referral 05/21/2024 06/16/2025 1 1 [facility] for referral (narrative)* Diagnostic Procedure Only (Routine) - Closed Specialty Diagnoses / Procedures Referred By Shaggy plummer Referred To Contact US IMAGING Diagnoses Abnormal LFTs Chronic hepatitis C without hepatic coma (HCC) Procedures US ABD RIGHT UPPER QUADRANT US ABDOMINAL REAL [place] W/[place] [address] [facility] [place] [address] Us Imaging [facility] Referral ID Status Reason Start Date Expiration Date V isits Requested Visits Authorized [id number] Closed Auto-Generate d Referral 05/21/2024 06/16/2025 1 1 [facility] for referral (narrative)* Outpatient Procedure (Routine) - New Request Specialty Diagnoses / Procedures Referred By Shaggy t Referred To Contact [facility] Diagnoses Fatty liver Procedures DDI VIBRATION CONTROLLED TRANSIENT ELASTOGRAPHY (VCTE) LIVER ELASTOGRAPHY W/O IMAG W/I&[place] [address] [place] [address] [facility] [address] [place] [address] Referral ID Status Reason Start Date Expiration Date Visits Requested Visits Authorized [id number] New Request Auto-Generat ed Referral 06/18/2024 06/12/2025 1 1 * Diagnostic Procedure Only (Routine) - New Request Specialty Diagnoses / Procedures Referred By Contac t Referred To Contact US IMAGING Diagnoses Fatty liver Procedures US ABD RIGHT UPPER QUADRANT US ABDOMINAL REAL [place] W/[place] [address] [place] [address] [place] [address] Referral ID Status Reason Start Date Expiration Date Visits Requested Visits Authorized [id number] New Request Auto-Generat ed Referral 12/13/2024 07/12/2025 1 1 [facility] Summary Purpose Family History No Family History [...] t Referred To Contact CT IMAGING Diagnoses Malignant neoplasm of head, face and neck (HCC) Lung nodules Procedures CT CHEST W IVCON DIAGNOSTIC COMPUTED TOMOGRAPHY THORAX W/CONTRAST Wyatt Garza MD [address] [place] [address] [place] [address] [place] [address] Referral ID Status Reason Start Date Expiration Date V isits Requested Visits Authorized [id number] Closed Auto-Generate d Referral 12/08/2022 01/16/2023 1 1 Specialty Diagnoses / Procedures Referred By Contac t Referred To Contact CT IMAGING Diagnoses Malignant neoplasm of head, face and neck (HCC) Lung nodules Procedures CT NECK SOFT TISSUE W IVCON CT SOFT TISSUE NECK W/CONTRAST MATERIAL Wyatt Garza MD [address] [place] [address] [place] [address] Referral ID Status Reason Start Date Expiration Date V isits Requested Visits Authorized [id number] Closed Auto-Generate d Referral 12/08/2022 01/16/2023 1 1 Specialty Diagnoses / Procedures Referred By Contac t Referred To Contact CT IMAGING Diagnoses History of head and neck cancer Lung nodules Procedures CT CHEST W IVCON DIAGNOSTIC COMPUTED TOMOGRAPHY THORAX W/CONTRAST Wyatt Garza MD [address] [facility] [place] [place] [address] [place] [address] Referral ID Status Reason Start Date Expiration Date Visits Requested Visits Authorized [id number] Authorized Auto-Generat ed Referral 06/30/2024 04/29/2025 1 1 Specialty Diagnoses / Procedures Referred By Contac t Referred To Contact CT IMAGING Diagnoses Localized enlarged lymph nodes History of head and neck cancer Procedures CT CHEST W IVCON DIAGNOSTIC COMPUTED TOMOGRAPHY THORAX W/CONTRAST Wyatt Garza MD [address] [place] [address] [place] [address] [place] [address] Referral ID Status Reason Start Date Expiration Date Visits Requested Visits Authorized [id number] Authorized Auto-Generat ed Referral 12/19/2023 01/17/2025 1 1 Specialty Diagnoses / Procedures Referred By Contac t Referred To Contact CT IMAGING Diagnoses Lung nodules Procedures CT NECK SOFT TISSUE W IVCON CT SOFT TISSUE NECK W/CONTRAST MATERIAL Wyatt Garza MD [address] [facility] [place] [address] Ct Imaging Referral ID Status Reason Start Date Expiration Date Visits Requested Visits Authorized [id number] Authorized Auto-Generat ed Referral 12/16/2023 01/15/2024 1 1 Specialty Diagnoses / Procedures Referred By Contac t Referred To Contact CT IMAGING Diagnoses Lung nodules Procedures CT CHEST W IVCON DIAGNOSTIC COMPUTED TOMOGRAPHY THORAX W/CONTRAST Wyatt Garza MD [address] [place] [address] Ct Imaging Referral ID Status Reason Start Date Expiration Date Visits Requested Visits Authorized [id number] Authorized Auto-Generat ed Referral 12/16/2023 01/15/2024 1 1 Specialty Diagnoses / Procedures Referred By Shaggy plummer Referred To Contact CT IMAGING Diagnoses Effects of radiation, sequela Head and neck cancer (HCC) Procedures CT CHEST WO IVCON DIAGNOSTIC COMPUTED TOMOGRAPHY THORAX W/O CNTRST Marleni Atkins MD [address] [place] [address] [place] [address] Ct Imaging Referral ID Status Reason Start Date Expiration Date Visits Requested Visits Authorized [id number] Pending Review Auto-Generat ed Referral 12/18/2022 07/17/2023 1 1 Additional Source Comments (unrecognized sect ion and content) No Status Records FoundNo Status Records FoundNo Status Records FoundNo Status Records FoundNo Status Records Found INFORMATION SOURCE (unrecogn ized section and content) DATE CREATED AUTHOR 03/20/2019 [facility] DATE CREATED AUTHOR AUTHOR'S ORGANIZ ATION 03/07/2023 [facility] DATE CREATED AUTHOR AUTHOR'S ORGANIZ ATION 03/17/2023 [facility] DATE CREATED AUTHOR AUTHOR'S ORGANIZ ATION 08/25/2024 [facility] DATE CREATED AUTHOR AUTHOR'S ORGANIZ ATION 02/02/2025 [facility] Source Comments (unrecognize d section and content) In the event this informatio n is protected by the Federal Confidentiality of Alcohol and Drug Abuse Patient Records regulations: The Federal rules restrict any use of the information to criminally investigate or prosecute any alcohol or drug abuse patient.[facility] the event this information is protected by the Federal Confidentiality of Alcohol and Drug Abuse Patient Records regulations: The Federal rules restrict any use of the information to criminally investigate or prosecute any alcohol or drug abuse patient.[facility] the event this information is protected by the Federal Confidentiality of Alcohol and Drug Abuse Patient Records regulations: The Federal rules restrict any use of the information to criminally investigate or prosecute any alcohol or drug abuse patient.[facility] the event this information is protected by the Federal Confidentiality of Alcohol and Drug Abuse Patient Records regulations: The Federal rules restrict any use of the information to criminally investigate or prosecute any alcohol or drug abuse patient.[facility] HospitalIn the event this information is protected by the Federal Confidentiality of Alcohol and Drug Abuse Patient Records regulations: The Federal rules restrict any use of the information to criminally investigate or prosecute any alcohol or drug abuse patient.[facility] Hospital[facility] the event this information is protected by the Federal Confidentiality of Alcohol and Drug Abuse Patient Records regulations: The Federal rules restrict any use of the information to criminally investigate or prosecute any alcohol or drug abuse patient.[facility] Hospital[facility] the event this information is protected by the Federal Confidentiality of Alcohol and Drug Abuse Patient Records regulations: The Federal rules restrict any use of the information to criminally investigate or prosecute any alcohol or drug abuse patient.[facility] Hospital[facility] the event this information is protected by the Federal Confidentiality of Alcohol and Drug Abuse Patient Records regulations: The Federal rules restrict any use of the information to criminally investigate or prosecute any alcohol or drug abuse patient.[facility] Hospital[facility] the event this information is protected by the Federal Confidentiality of Alcohol and Drug Abuse Patient Records regulations: The Federal rules restrict any use of the information to criminally investigate or prosecute any alcohol or drug abuse patient.[facility] the event this information is protected by the Federal Confidentiality of Alcohol and Drug Abuse Patient Records regulations: The Federal rules restrict any use of the information to criminally investigate or prosecute any alcohol or drug abuse patient.[facility] Hospital[facility] the event this information is protected by the Federal Confidentiality of Alcohol and Drug Abuse Patient Records regulations: The Federal rules restrict any use of the information to criminally investigate or prosecute any alcohol or drug abuse patient.[facility] Hospital[facility] the event this information is protected by the Federal Confidentiality of Alcohol and Drug Abuse Patient Records regulations: The Federal rules restrict any use of the information to criminally investigate or prosecute any alcohol or drug abuse patient.[facility] HospitalIn the event this information is protected by the Federal Confidentiality of Alcohol and Drug Abuse Patient Records regulations: The Federal rules restrict any use of the information to criminally investigate or prosecute any alcohol or drug abuse patient.[facility] HospitalIn the event this information is protected by the Federal Confidentiality of Alcohol and Drug Abuse Patient Records regulations: The Federal rules restrict any use of the information to criminally investigate or prosecute any alcohol or drug abuse patient.[facility] Hospital[facility] the event this information is protected by the Federal Confidentiality of Alcohol and Drug Abuse Patient Records regulations: The Federal rules restrict any use of the information to criminally investigate or prosecute any alcohol or drug abuse patient.[facility] Hospital[facility] the event this information is protected by the Federal Confidentiality of Alcohol and Drug Abuse Patient Records regulations: The Federal rules restrict any use of the information to criminally investigate or prosecute any alcohol or drug abuse patient.[facility] Hospital[facility] the event this information is protected by the Federal Confidentiality of Alcohol and Drug Abuse Patient Records regulations: The Federal rules restrict any use of the information to criminally investigate or prosecute any alcohol or drug abuse patient.[facility] HospitalIn the event this information is protected by the Federal Confidentiality of Alcohol and Drug Abuse Patient Records regulations: The Federal rules restrict any use of the information to criminally investigate or prosecute any alcohol or drug abuse patient.[facility] Hospital[facility] the event this information is protected by the Federal Confidentiality of Alcohol and Drug Abuse Patient Records regulations: The Federal rules restrict any use of the information to criminally investigate or prosecute any alcohol or drug abuse patient.[facility] HospitalIn the event this information is protected by the Federal Confidentiality of Alcohol and Drug Abuse Patient Records regulations: The Federal rules restrict any use of the information to criminally investigate or prosecute any alcohol or drug abuse patient.[facility] HospitalIn the event this information is protected by the Federal Confidentiality of Alcohol and Drug Abuse Patient Records regulations: The Federal rules restrict any use of the information to criminally investigate or prosecute any alcohol or drug abuse patient.[facility] HospitalIn the event this information is protected by the Federal Confidentiality of Alcohol and Drug Abuse Patient Records regulations: The Federal rules restrict any use of the information to criminally investigate or prosecute any alcohol or drug abuse patient.[facility] HospitalIn the event this information is protected by the Federal Confidentiality of Alcohol and Drug Abuse Patient Records regulations: The Federal rules restrict any use of the information to criminally investigate or prosecute any alcohol or drug abuse patient.[facility] HospitalIn the event this information is protected by the Federal Confidentiality of Alcohol and Drug Abuse Patient Records regulations: The Federal rules restrict any use of the information to criminally investigate or prosecute any alcohol or drug abuse patient.[facility] HospitalIn the event this information is protected by the Federal Confidentiality of Alcohol and Drug Abuse Patient Records regulations: The Federal rules restrict any use of the information to criminally investigate or prosecute any alcohol or drug abuse patient.[facility] HospitalIn the event this information is protected by the Federal Confidentiality of Alcohol and Drug Abuse Patient Records regulations: The Federal rules restrict any use of the information to criminally investigate or prosecute any alcohol or drug abuse patient.[facility] HospitalIn the event this information is protected by the Federal Confidentiality of Alcohol and Drug Abuse Patient Records regulations: The Federal rules restrict any use of the information to criminally investigate or prosecute any alcohol or drug abuse patient.[facility] Reason for Visit (unrecogniz ed section [...] 40-54 MIN EST PATIENT Wyatt Garza MD [address] [place] [address] Wyatt Garza MD [address] [place] [address] [place] [address] Referral ID Status Reason Start Date Expiration Date Visits Re quested Visits Authorized [id number] Closed 12/08/2022 03/16/2023 1 1 Reason Comments Head and Neck Cancer 1 year follow up Reason Comments Radiology US Specialty Diagnoses / Procedures Referred By Contac t Referred To Contact US IMAGING Diagnoses Abnormal LFTs Chronic hepatitis C without hepatic coma (HCC) Procedures US ABD RIGHT UPPER QUADRANT US ABDOMINAL REAL [place] W/[place] [address] [place] [address] [place] [address] Referral ID Status Reason Start Date Expiration Date V isits Requested Visits Authorized [id number] Closed Auto-Generate d Referral 05/21/2024 06/16/2025 1 1 Reason Comments Head and Neck Cancer 3 month follow up Reason Comments Radiology CT Specialty Diagnoses / Procedures Referred By Contac t Referred To Contact CT IMAGING Diagnoses History of head and neck cancer Lung nodules Procedures CT CHEST W IVCON DIAGNOSTIC COMPUTED TOMOGRAPHY THORAX W/CONTRAST Wyatt Garza MD [address] [place] [address] [place] [address] Referral ID Status Reason Start Date Expiration Date V isits Requested Visits Authorized [id number] Closed Auto-Generate d Referral 06/22/2024 11/06/2024 1 1 Specialty Diagnoses / Procedures Referred By Contac t Referred To Contact CT IMAGING Diagnoses Localized enlarged lymph nodes History of head and neck cancer Procedures CT CHEST W IVCON DIAGNOSTIC COMPUTED TOMOGRAPHY THORAX W/CONTRAST Wyatt Garza MD [address] [place] [address] [place] [address] Referral ID Status Reason Start Date Expiration Date V isits Requested Visits Authorized [id number] Closed Auto-Generate d Referral 12/19/2023 01/17/2025 1 [address] Specialty Diagnoses / Procedures Referred By Contac t Referred To Contact CT IMAGING Diagnoses Lung nodules Procedures CT NECK SOFT TISSUE W IVCON CT SOFT TISSUE NECK W/CONTRAST MATERIAL Wyatt Garza MD [address] [place] [address] [place] [address] Referral ID Status Reason Start Date Expiration Date V isits Requested Visits Authorized [id number] Closed Auto-Generate d Referral 12/16/2023 01/15/2024 1 1 Specialty Diagnoses / Procedures Referred By Contac t Referred To Contact CT IMAGING Diagnoses Malignant neoplasm of head, face and neck (HCC) Lung nodules Procedures CT NECK SOFT TISSUE W IVCON CT SOFT TISSUE NECK W/CONTRAST MATERIAL Wyatt Garza MD [address] [place] [address] [place] [address] [place] [address] Referral ID Status Reason Start Date Expiration Date V isits Requested Visits Authorized [id number] Closed Auto-Generate d Referral 12/08/2022 01/16/2023 1 [address] Specialty Diagnoses / Procedures Referred By Contac t Referred To Contact CT IMAGING Diagnoses Lung nodules Procedures CT CHEST W IVCON CAT SCAN OF CHEST CONTRAST Wyatt Garza MD [address] [place] [address] [place] [address] [place] [address] Referral ID Status Reason Start Date Expiration Date V isits Requested Visits Authorized [id number] Closed Auto-Generate d Referral 12/18/2020 01/17/2022 3 3 Reason Comments Cancer 1 yr cancer check Specialty Diagnoses / Procedures Referred By Contac t Referred To Contact CT IMAGING Diagnoses History of head and neck cancer Lung nodules Procedures CT NECK SOFT TISSUE W IVCON CT SOFT TISSUE NECK W/CONTRAST MATERIAL Wyatt Garza MD [address] [place] [address] [place] [address] Phone: tel: fax: [place] [address] Referral ID Status Reason Start Date Expiration Date V isits Requested Visits Authorized [id number] Closed Auto-Generate d Referral 12/30/2024 07/29/2025 1 1 Reason Comments Follow Up Tests Results Labs---->needs U S, Fibroscan and Care Teams (unrecognized sec tion and content) [facility] Relationship Specialty Start Date End Date Elba De La Cruz MD [address] [place] [address] PCP - General Family Practice 01/04/18 [facility] Relationship Specialty Start Date End Date Elba De La Cruz MD [address] [place] [address] PCP - General Family Practice 01/04/18 [facility] Relationship Specialty Start Date End Date Elba De La Cruz MD [address] [place] [address] PCP - General Family Practice 01/04/18 [facility] Relationship Specialty Start Date End Date Elba De La Cruz MD [address] [place] [address] PCP - General Family Practice 01/04/18 [facility] Relationship Specialty Start Date End Date Elba De La Cruz MD [address] [place] [address] PCP - General Family Medicine 01/04/18 [facility] Relationship Specialty Start Date End Date Elba De La Cruz MD [address] [place] [id number] PCP - General Family Medicine 01/04/18 [facility] Relationship Specialty Start Date End Date Elba De La Cruz MD PCP - General Family Medicine 01/04/18 [facility] Relationship Specialty Start Date End Date Elba De La Cruz MD PCP - General Family Medicine 01/04/18 [facility] Relationship Specialty Start Date End Date Elba De La Cruz MD PCP - General Family Medicine 01/04/18 [facility] Relationship Specialty Start Date End Date Elba De La Cruz MD PCP - General Family Medicine 01/04/18 [facility] Relationship Specialty Start Date End Date Elba De La Cruz MD PCP - General Family Medicine 01/04/18 [facility] Relationship Specialty Start Date End Date Elba De La Cruz MD PCP - General Family Medicine 01/04/18 [facility] Relationship Specialty Start Date End Date Elba De La Cruz MD PCP - General Family Medicine 01/04/18 [facility] Relationship Specialty Start Date End Date Elba De La Cruz MD PCP - General Family Medicine 01/04/18 [facility] Relationship Specialty Start Date End Date Elba De La Cruz MD [address] [place] [address] PCP - General Family Medicine 03/15/23 [facility] Relationship Specialty Start Date End Date Elba De La Cruz MD [address] [place] [address] PCP - General Family Medicine 03/15/23 [facility] Relationship Specialty Start Date End Date Elba De La Cruz MD [address] [place] [address] PCP - General Family Medicine 03/15/23 [facility] Relationship Specialty Start Date End Date Elba De La Cruz MD [address] [place] [address] PCP - General Family Medicine 03/15/23 [facility] Relationship Specialty Start Date End Date Elba De La Cruz MD PCP - General Family Medicine 01/04/18 [facility] Relationship Specialty Start Date End Date Elba De La Cruz MD PCP - General Family Medicine 01/04/18 [facility] Relationship Specialty Start Date End Date Elba De La Cruz MD PCP - General Family Medicine 01/04/18 [...] BE BASED ON THE PRIMARY CLINICAL RECORDS. [facility] Neuromod[facility]. provides no warranty or guarantee of the accuracy or completeness of information in this document.
--- NOTE | 2025-08-12 12:16 | XR_ITS ---
[address] [address] Patient Name: ADELFO NOLAN MRN: [id number] date: 1955 Sex: M Assigned Patient Location: LAB Current Patient Location: LAB Accession/Order Number: [id number] Exam Date: 08/12/2025 12:10 Report Date: 08/12/2025 13:30 At the request of: ELBA DE LA CRUZ MD Procedure: XR chest 2V Chest 2 views CLINICAL HISTORY: Mold Exposure COMPARISON: None FINDINGS: XR/XR chest 2V IMPRESSION: NO ACUTE CARDIOPULMONARY ABNORMALITY. Impression dictated by: Bubba Tay Jr., DMeghaOMegha 08/12/2025 1:30 PM Dictation Location: [place] [address] Electronically authenticated by: [id number] Y Date: 08/12/2025 13:30
== END 2025-08-12 11:26 | disposition home or self-care (01) ==
LOC: LAB 11:27
PROVIDERS: PCP Family Medicine; Visit Provider Family Medicine
DX: Z77.120 Contact with and (suspected) exposure to mold (toxic) (principal)
CPT/HCPCS: 36415; 71046; 87040

== ENCOUNTER 2025-08-14 07:29 | Outpatient (REF) | payer MEDICARE, MEDICAID, SELFPAY ==
--- OUTSIDE RECORDS SUMMARY | 2025-08-14 07:35 | XMS_ITS | Encounter Summary ---
Author Organization [facility] Address [address] [place] [address] Care Team Providers Care Media Services Coordinator Name Role Phone Bird Crouch MD Primary Care Provider [phone] Encounter Details Date Type Department Care Team (Late st Contact Info) Description 07/12/2024 Abstract [facility] [address] [facility] [place] [address] Andreina Welch, [facility] [address] [place] [address] Social History Tobacco Use Types Packs/Day Years [...] on filedocumented in this encounter Care Teams Media Services Coordinator Relationship Specialty Start Date End Date Bird Crouch MD PCP - General Family Medicine 03/15/23 documented as of this encounter
--- OUTSIDE RECORDS SUMMARY | 2025-08-14 07:35 | XMS_ITS | Clinical Summary ---
Author Organization [facility] Address [address] [place] [address] Care Team Providers Care Barrelhead Inspector Name Role Phone Bird Crouch MD Primary Care Provider [phone] Allergies No known active allergies Medications Pediatric [...] MEDICAID [place] MED[employer] [employer]AGE Care Teams Barrelhead Inspector Relationship Specialty Start Date End Date Bird Crouch MD PCP - General Family Medicine 03/15/23
--- OUTSIDE RECORDS SUMMARY | 2025-08-14 07:35 | XMS_ITS | Encounter Summary ---
Author Organization [facility] Address [address] [place] [address] Care Team Providers Care [employer] Rep Name Role Phone Bird Crouch MD Primary Care Provider [phone] Encounter Details Date Type Department Care Team (Late st Contact Info) Description 07/14/2023 Abstract [facility] [address] [facility] [address] [place] [address] Leticia Taylor, NOLAN [address] [facility] [address] [place], [place] [id number] Social History Tobacco Use Types Packs/Day Years [...] on filedocumented in this encounter Care Teams [employer] Rep Relationship Specialty Start Date End Date Bird Crouch MD PCP - General Family Medicine 03/15/23 documented as of this encounter
--- OUTSIDE RECORDS SUMMARY | 2025-08-14 07:36 | XMS_ITS | CCD ---
Author Organization [facility] CliniSyoh Care Team Providers Care Carpet Layer Name Role Phone Elba De La Cruz Primary Care Unavailable Jen Qureshi Admitting Unavailable Jen Qureshi Attending Unavailable Elba De La Cruz MD Primary Care Provider Elba De La Cruz Primary Care Physician Elba De La Cruz MD Primary Care Provider Elba De La Cruz MD Primary Care Provider Elba De La Cruz MD Primary Care Provider [phone]OR[address] ., DR ARREOLA Primary Care Unavailable [...] Test Name Value Interpretation Reference Range Facility [facility] 01-21-2025 [facility] Visit (SP) Office (HEMASA) CARSON MORSE ([id number]) 1955 Date Time Provider Department 01/21/25 11:40 [...] AM Signed NAME: Carson Morse CLINIC NO.: [id number] DATE OF SERVICE: January 21, 2025 (Mirian) [...] N/Chest: Bilater (more content not included)... Normal [facility] CNPLenore 01-18-2025 CNPN Telephone (GASTNO) CARSON MORSE ([id number]) 1955 M Date Time Provider Department 01/18/25 HALIMA NIXON During your visit today, we recorded the following information about you: Mary Villarreal RN 01/18/2025 10:53 AM Signed Pt notified of results and recommendations and verbalized understanding. Schedulers, please call pt to schedule US, Fibroscan and OV. Orders are already placed. Thank you, NOLAN Meeks Noma, MD P [facility] Nurse Pool Normal AFP Patient is overdue [...] Status:Closed by IVETTE LALA on 01/18/25 Normal [facility] AFP SerPl-mCncon 01-10-2025 AFP [Mass/Vol] 4.54 ng/mL Normal <9.00 [facility] Comment on above: Order Comment: Speci men Type: BLOOD SPECIMENOrdering Facility: [facility] Address: [address] [place] [address] Result Comment: The Alpha-Fetoprotein test was performed using the Fisgoel DxI immunoenzymatic assay. Results obtained with different assay methods or kits cannot be used interchangeably. Performed By: #### 1 834-1 ####[facility] LABCLIA [id number] [place] [address] [place] CBC W Auto Differential pane l (Bld)on 01-10-2025 Basophils (Bld) [#/Vol] 0.09 10*3/uL [facility] Basophils/100 WBC (Bld) 1.9 % [facility] Differential cell count method Nom (Bld) Auto [facility] Eosinophils (Bld) [#/Vol] 0.11 10*3/uL [facility] Eosinophils/100 WBC (Bld) 2.4 % [facility] Erythrocyte distribution width (RBC) [Ratio] 12.2 % 11.5 - 15.0 % [facility] Hematocrit (Bld) [Volume fraction] 31.6 % Low 39.0 - 51.0 % [facility] Hemoglobin (Bld) [Mass/Vol] 10.6 g/dL Low 13.0 - 17.0 g/dL [facility] Immature granulocytes (Bld) [#/Vol] [facility] Immature granulocytes/100 WBC (Bld) 0.4 % [facility] Interpretation and review of laboratory results Abnormal [facility] Lymphocytes (Bld) [#/Vol] 0.96 10*3/uL Low [facility] Lymphocytes/100 WBC (Bld) 20.7 % [facility] MCH (RBC) [Entitic mass] 33.9 pg 26.0 - 34.0 pg [facility] MCHC (RBC) [Mass/Vol] 33.5 g/dL 30.5 - 36.0 g/dL [facility] MCV (RBC) [Entitic vol] 101 fL High 80.0 - 100.0 fL [facility] Monocytes (Bld) [#/Vol] 0.38 10*3/uL [facility] Monocytes/100 WBC (Bld) 8.2 % [facility] Neutrophils (Bld) [#/Vol] 3.08 10*3/uL [facility] Neutrophils/100 WBC (Bld) 66.4 % [facility] Nucleated RBC (Bld) [#/Vol] [facility] Nucleated RBC/100 WBC (Bld) [Ratio] 0 % /100 WBC [facility] Platelet mean volume (Bld) [Entitic vol] 9.4 fL 9.0 - 12.7 fL [facility] Platelets (Bld) [#/Vol] 209 10*3/uL [facility] RBC (Bld) [#/Vol] 3.13 10*6/uL Low 4.20 - 6.0 0 m/uL [facility] WBC (Bld) [#/Vol] 4.64 10*3/uL [facility] Basophils (Bld) [#/Vol] 0.09 10*3/uL Normal <0.11 [facility] Comment on above: Order Comment: Speci men Type: BLOOD SPECIMENOrdering Facility: [facility] Address: [address] [place] [address] Performed By: #### 5 7021-8 ####[facility] LABCLIA [id number] [place] [address] Basophils/100 WBC (Bld) 1.9 % Normal [facility] Comment on above: Order Comment: Speci men Type: BLOOD SPECIMENOrdering Facility: [facility] Address: [address] [place] [address] Performed By: #### 5 7021-8 ####[facility] LABCLIA [id number] [place] [address] Differential cell count method Nom (Bld) Auto Normal [facility] Comment on above: Order Comment: Speci men Type: BLOOD SPECIMENOrdering Facility: [facility] Address: [address] [place] [address] Performed By: #### 5 7021-8 ####[facility] LABCLIA [id number] [place] [address] Eosinophils (Bld) [#/Vol] 0.11 10*3/uL Normal <0.46 [facility] Comment on above: Order Comment: Speci men Type: BLOOD SPECIMENOrdering Facility: [facility] Address: [address] [place] [address] Performed By: #### 5 7021-8 ####[facility] LABCLIA [id number] [place] [address] Eosinophils/100 WBC (Bld) 2.4 % Normal [facility] Comment on above: Order Comment: Speci men Type: BLOOD SPECIMENOrdering Facility: [facility] Address: [address] [place] [address] Performed By: #### 5 7021-8 ####[facility] LABCLIA [id number] [place] [address] Erythrocyte distribution width (RBC) [Ratio] 12.2 % Normal 11.5-15.0 [facility] Comment on above: Order Comment: Speci men Type: BLOOD SPECIMENOrdering Facility: [facility] Address: [address] [place] [address] Performed By: #### 5 7021-8 ####[facility] LABCLIA [id number] [place] [address] Hematocrit (Bld) [Volume fraction] 31.6 % Low 39.0-51.0 [facility] Comment on above: Order Comment: Speci men Type: BLOOD SPECIMENOrdering Facility: [facility] Address: [address] [place] [address] Performed By: #### 5 7021-8 ####[facility] LABCLIA [id number] [place] [address] Hemoglobin (Bld) [Mass/Vol] 10.6 g/dL Low 13.0-17.0 [facility] Comment on above: Order Comment: Speci men Type: BLOOD SPECIMENOrdering Facility: [facility] Address: [address] [place] [address] Performed By: #### 5 7021-8 ####[facility] LABCLIA [id number] [place] [address] Immature granulocytes (Bld) [#/Vol] 10*3/uL Normal <0.10 [facility] Comment on above: Order Comment: Speci men Type: BLOOD SPECIMENOrdering Facility: [facility] Address: [address] [place] [address] Performed By: #### 5 7021-8 ####[facility] LABCLIA [id number] [place] [address] Immature granulocytes/100 WBC (Bld) 0.4 % Normal [facility] Comment on above: Order Comment: Speci men Type: BLOOD SPECIMENOrdering Facility: [facility] Address: [address] [place] [address] Performed By: #### 5 7021-8 ####[facility] LABCLIA [id number] [place] [address] Lymphocytes (Bld) [#/Vol] 0.96 10*3/uL Low 1.00-4.00 [facility] Comment on above: Order Comment: Speci men Type: BLOOD SPECIMENOrdering Facility: [facility] Address: [address] [place] [address] Performed By: #### 5 7021-8 ####[facility] LABCLIA [id number] [place] [address] Lymphocytes/100 WBC (Bld) 20.7 % Normal [facility] Comment on above: Order Comment: Speci men Type: BLOOD SPECIMENOrdering Facility: [facility] Address: [address] [place] [address] Performed By: #### 5 7021-8 ####[facility] LABCLIA [id number] [place] [address] MCH (RBC) [Entitic mass] 33.9 pg Normal 26.0-34.0 [facility] Comment on above: Order Comment: Speci men Type: BLOOD SPECIMENOrdering Facility: [facility] Address: [address] [place] [address] Performed By: #### 5 7021-8 ####[facility] LABIA [id number] [place] [address] MCHC (RBC) [Mass/Vol] 33.5 g/dL Normal 30.5-36.0 [facility] Comment on above: Order Comment: Speci men Type: BLOOD SPECIMENOrdering Facility: [facility] Address: [address] [place] [address] Performed By: #### 5 7021-8 ####[facility] LABIA [id number] [place] [address] MCV (RBC) [Entitic vol] 101.0 fL High 80.0-100.0 [facility] Comment on above: Order Comment: Speci men Type: BLOOD SPECIMENOrdering Facility: [facility] Address: [address] [place] [address] Performed By: #### 5 7021-8 ####[facility] LABIA [id number] [place] [address] Monocytes (Bld) [#/Vol] 0.38 10*3/uL Normal <0.87 [facility] Comment on above: Order Comment: Speci men Type: BLOOD SPECIMENOrdering Facility: [facility] Address: [address] [place] [address] Performed By: #### 5 7021-8 ####[facility] LABCLIA [id number] [place] [address] Monocytes/100 WBC (Bld) 8.2 % Normal [facility] Comment on above: Order Comment: Speci men Type: BLOOD SPECIMENOrdering Facility: [facility] Address: [address] [place] [address] Performed By: #### 5 7021-8 ####[facility] LABCLIA [id number] [place] [address] Neutrophils (Bld) [#/Vol] 3.08 10*3/uL Normal 1.45-7.50 [facility] Comment on above: Order Comment: Speci men Type: BLOOD SPECIMENOrdering Facility: [facility] Address: [address] [place] [address] Performed By: #### 5 7021-8 ####[facility] LABCLIA [id number] [place] [address] Neutrophils/100 WBC (Bld) 66.4 % Normal [facility] Comment on above: Order Comment: Speci men Type: BLOOD SPECIMENOrdering Facility: [facility] Address: [address] [place] [address] Performed By: #### 5 7021-8 ####[facility] LABCLIA [id number] [place] [address] Nucleated RBC (Bld) [#/Vol] 10*3/uL Normal <0.01 [facility] Comment on above: Order Comment: Speci men Type: BLOOD SPECIMENOrdering Facility: [facility] Address: [address] [place] [address] Performed By: #### 5 7021-8 ####[facility] LABCLIA [id number] [place] [address] Nucleated RBC/100 WBC (Bld) [Ratio] 0.0 /100 WBC Normal [facility] Comment on above: Order Comment: Speci men Type: BLOOD SPECIMENOrdering Facility: [facility] Address: [address] [place] [address] Performed By: #### 5 7021-8 ####[facility] LABCLIA [id number] [place] [address] Platelet mean volume (Bld) [Entitic vol] 9.4 fL Normal 9.0-12.7 [facility] Comment on above: Order Comment: Speci men Type: BLOOD SPECIMENOrdering Facility: [facility] Address: [address] [place] [address] Performed By: #### 5 7021-8 ####[facility] LABIA [id number] [place] [address] Platelets (Bld) [#/Vol] 209 10*3/uL Normal 150-400 [facility] Comment on above: Order Comment: Speci men Type: BLOOD SPECIMENOrdering Facility: [facility] Address: [address] [place] [address] Performed By: #### 5 7021-8 ####[facility] LABIA [id number] [place] [address] RBC (Bld) [#/Vol] 3.13 10*6/uL Low 4.20-6.00 [facility] Comment on above: Order Comment: Speci men Type: BLOOD SPECIMENOrdering Facility: [facility] Address: [address] [place] [address] Performed By: #### 5 7021-8 ####[facility] LABIA [id number] [place] [address] WBC (Bld) [#/Vol] 4.64 10*3/uL Normal 3.70-11.00 [facility] Comment on above: Order Comment: Speci men Type: BLOOD SPECIMENOrdering Facility: [facility] Address: [facility] [address] Performed By: #### 5 7021-8 ####[facility] LABCLIA [id number] [place] [address] CT CHEST [address] IVCONon CT CHEST W IVCON * * *Final Report* * * DATE OF EXAM: Jan 10 2025 3:05PM [facility] 0539 - CT CHEST W [...] any questions regarding this interpretation, please call [phone]. If you are unable to reach us at the number above, please feel free to contact [facility]Radiology at [phone]. [id number] Normal [facility] CT NECK SOFT TISSUE W IVCONo n 01-10-2025 CT NECK SOFT TISSUE W IVCON * * *Final Report* * * DATE OF EXAM: Jan 10 2025 3:05PM [facility] 0013 - CT NECK SOFT [...] amalgam. Parotid and submandibular spaces are normal. Planner Intern spaces appear normal. Infrahyoid Neck: Hypopharynx, larynx, [...] any questions regarding this interpretation, please call [phone]. If you are unable to reach us at the number above, please feel free to contact [facility] at [phone]. [id number] Normal [facility] CT Neck W contrast Javier 03-0 IMPRESSION: [...] any questions regarding this interpretation, please call [phone]. If you are unable to reach us at the number above, please feel free to contact [facility] at [phone]. DIVISION OF RADIOLOGY * * *Final Report* * * DATE OF EXAM: Jan 10 2025 3:05PM [facility] 0013 - CT NECK SOFT [...] amalgam. Parotid and submandibular spaces are normal. Planner Intern spaces appear normal. Infrahyoid Neck: Hypopharynx, larynx, [...] Other: Not applicable. DIVISION OF RADIOLOGY Provider, [facility] - 01/10/2025 * * *Final Report* * * DATE OF EXAM: Jan 10 2025 3:05PM [facility] 0013 - CT NECK SOFT [...] amalgam. Parotid and submandibular spaces are normal. Planner Intern spaces appear normal. Infrahyoid Neck: Hypopharynx, larynx, [...] any questions regarding this interpretation, please call [phone]. If you are unable to reach us at the number above, please feel free to contact [facility] at [phone]. [facility] Radiology Study observation (narrative) [facility] CT Neck W contrast IVOrdered By: Ccf Provider on 01-10-2025 [facility] Comprehensive metabolic 2000 panelOrdered By: Jess Baker on 01-10-2025 Albumin [Mass/Vol] 4.4 g/dL 3.9 - 4.9 g/dL [facility] ALP [Catalytic activity/Vol] 79 U/L 38 - 113 U/L [facility] ALT [Catalytic activity/Vol] 8 U/L Low 10 - 54 U/L [facility] Anion gap [Moles/Vol] 11 mmol/L 8 - 15 mmol/L [facility] AST [Catalytic activity/Vol] 14 U/L 14 - 40 U/L [facility] Bilirubin [Mass/Vol] 0.6 mg/dL 0.2 - 1.3 mg/dL [facility] Calcium [Mass/Vol] 9.6 mg/dL 8.5 - 10. 2 mg/dL [facility] Chloride [Moles/Vol] 102 mmol/L 98 - 107 mmol/L [facility] CO2 [Moles/Vol] 25 mmol/L 22 - 30 mmol/L [facility] Creatinine [Mass/Vol] 0.68 mg/dL Low 0.73 - 1.22 mg/dL [facility] GFR/1.73 sq M.predicted among non-blacks MDRD (S/P/Bld) [Vol rate/Area] 101 mL/min/{1.73_m2} - PINF [facility] Comment on above: Estimated Glomerular Filtration [...] 100 mg/dL High 74 - 99 mg/dL [facility] Comment on above: The [place] Diabete s Association (ADA) provides guidance for [...] Standards of Medical Care in Diabetes 2016, [place] Diabetes Association. Diabetes Care. 2016.39(Suppl 1). Interpretation and review of laboratory results Abnormal [facility] Potassium [Moles/Vol] 3.7 mmol/L 3.7 - 5.1 mmol/L [facility] Protein [Mass/Vol] 6.8 g/dL 6.3 - 8.0 g/dL Cl [facility] Sodium [Moles/Vol] 138 mmol/L 136 - 144 mmol/L [facility] Urea nitrogen [Mass/Vol] 9 mg/dL 9 - 24 mg/dL [facility] Comprehensive metabolic 2000 panelon 01-10-2025 Albumin [Mass/Vol] 4.4 g/dL Normal 3.9-4.9 [facility] Comment on above: Order Comment: Speci men Type: BLOOD SPECIMENOrdering Facility: [facility] Address: [address] [place] [address] Performed By: #### 2 4323-8 ####[facility] LABCLIA [id number] [place] [address] ALP [Catalytic activity/Vol] 79 U/L Normal 38-113 [facility] Comment on above: Order Comment: Speci men Type: BLOOD SPECIMENOrdering Facility: [facility] Address: [address] [place] [address] Performed By: #### 2 4323-8 ####[facility] LABCLIA [id number] [place] [address] ALT [Catalytic activity/Vol] 8 U/L Low 10-54 [facility] Comment on above: Order Comment: Speci men Type: BLOOD SPECIMENOrdering Facility: [facility] Address: [address] [place] [address] Performed By: #### 2 4323-8 ####[facility] LABCLIA [id number] [place] [address] Anion gap [Moles/Vol] 11 mmol/L Normal 8-15 [facility] Comment on above: Order Comment: Speci men Type: BLOOD SPECIMENOrdering Facility: [facility] Address: [address] [place] [address] Performed By: #### 2 4323-8 ####[facility] LABCLIA [id number] [place] [address] AST [Catalytic activity/Vol] 14 U/L Normal 14-40 [facility] Comment on above: Order Comment: Speci men Type: BLOOD SPECIMENOrdering Facility: [facility] Address: [address] [place] [address] Performed By: #### 2 4323-8 ####[facility] LABCLIA [id number] [place] [address] Bilirubin [Mass/Vol] 0.6 mg/dL Normal 0.2-1.3 [facility] Comment on above: Order Comment: Speci men Type: BLOOD SPECIMENOrdering Facility: [facility] Address: [address] [place] [address] Performed By: #### 2 4323-8 ####[facility] LABCLIA [id number] [place] [address] Calcium [Mass/Vol] 9.6 mg/dL Normal 8.5-10.2 [facility] Comment on above: Order Comment: Speci men Type: BLOOD SPECIMENOrdering Facility: [facility] Address: [address] [place] [address] Performed By: #### 2 4323-8 ####[facility] LABCLIA [id number] [place] [address] Chloride [Moles/Vol] 102 mmol/L Normal 98-107 [facility] Comment on above: Order Comment: Speci men Type: BLOOD SPECIMENOrdering Facility: [facility] Address: [address] [place] [address] Performed By: #### 2 4323-8 ####[facility] LABCLIA [id number] [place] [address] CO2 [Moles/Vol] 25 mmol/L Normal 22-30 [facility] Comment on above: Order Comment: Speci men Type: BLOOD SPECIMENOrdering Facility: [facility] Address: [address] [place] [address] Performed By: #### 2 4323-8 ####[facility] LABCLIA [id number] [place] [address] Creatinine [Mass/Vol] 0.68 mg/dL Low 0.73-1.22 [facility] Comment on above: Order Comment: Gretel hilario Type: BLOOD SPECIMENOrdering Facility: [facility] Address: [address] [id number] Performed By: #### 2 4323-8 ####[facility] LABCLIA [id number] [place] [address] Creatinine and Glomerular filtration rate.predicted panel (S/P/Bld) 101 mL/min/1.73m??? Normal >=60 [facility] Comment on above: Order Comment: Gretel hilario Type: BLOOD SPECIMENOrdering Facility: [facility] Address: [address] [place] [address] Result Comment: Lulú mated Glomerular Filtration Rate [...] actual GFR. Performed By: #### 2 4323-8 ####[facility] LABCLIA [id number] [place] [address] Glucose [Mass/Vol] 100 mg/dL High 74-99 [facility] Comment on above: Order Comment: Gretel hilario Type: BLOOD SPECIMENOrdering Facility: [facility] Address: [address] [place], [place] [address] Result Comment: The [place] Diabetes Association (ADA) provides guidance for cutoff [...] Standards of Medical Care in Diabetes 2016, [place] Diabetes Association. Diabetes Care. 2016.39(Suppl 1). Performed By: #### 2 4323-8 ####[facility] LABCLIA [id number] [place] [address] Potassium [Moles/Vol] 3.7 mmol/L Normal 3.7-5.1 [facility] Comment on above: Order Comment: Speci men Type: BLOOD SPECIMENOrdering Facility: [facility] Address: [address] [place] [address] Performed By: #### 2 4323-8 ####[facility] LABCLIA [id number] [place] [address] Protein [Mass/Vol] 6.8 g/dL Normal 6.3-8.0 [facility] Comment on above: Order Comment: Speci men Type: BLOOD SPECIMENOrdering Facility: [facility] Address: [address] [place] [address] Performed By: #### 2 4323-8 ####[facility] LABCLIA [id number] [place] [address] Sodium [Moles/Vol] 138 mmol/L Normal 136-144 [facility] Comment on above: Order Comment: Speci men Type: BLOOD SPECIMENOrdering Facility: [facility] Address: [address] [place] [address] Performed By: #### 2 4323-8 ####[facility] LABCLIA [id number] [place] [address] Urea nitrogen [Mass/Vol] 9 mg/dL Normal 9-24 [facility] Comment on above: Order Comment: Speci men Type: BLOOD SPECIMENOrdering Facility: [facility] Address: [address] [place] [address] Performed By: #### 2 4323-8 ####[facility] LABCLIA [id number] [place] [address] Auditory function testson Right Ear: 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 Left Ear: Mild to severe sensorineural hearing loss above 500 Hz [facility] pete CNOVSPon 06-29-2024 CNOVSP Visit (SP) Office (HEMASA) CARSON MORSE ([id number]) 1955 M Date Time Provider Department 06/29/24 11:15 AM WYATT GARZA During your visit today, we recorded the following information about you: Temperature Pulse Respiration Blood pressure 97.7 degrees 60/minute 16/minute 153/90 Height 1.651 m Wyatt Garza MD 06/30/2024 9:51 PM Signed NAME: Carson Morse CLINIC NO.: [id number] DATE OF SERVICE: June 29, 2024 ([facility] Some elements in this clinic note that [...] annual monitor (more content not included)... Normal [facility] CBC W Auto Differential pane l (Bld)on 06-22-2024 Basophils (Bld) [#/Vol] 0.04 10*3/uL [facility] Basophils/100 WBC (Bld) 0.9 % [facility] Differential cell count method Nom (Bld) Auto [facility] Eosinophils (Bld) [#/Vol] 0.04 10*3/uL [facility] Eosinophils/100 WBC (Bld) 0.9 % [facility] Erythrocyte distribution width (RBC) [Ratio] 13.2 % 11.5 - 15.0 % [facility] Hematocrit (Bld) [Volume fraction] 35.9 % Low 39.0 - 51.0 % [facility] Hemoglobin (Bld) [Mass/Vol] 12.8 g/dL Low 13.0 - 17.0 g/dL [facility] Immature granulocytes (Bld) [#/Vol] [facility] Immature granulocytes/100 WBC (Bld) 0.2 % [facility] Interpretation and review of laboratory results Abnormal [facility] Lymphocytes (Bld) [#/Vol] 0.77 10*3/uL Low [facility] Lymphocytes/100 WBC (Bld) 18.2 % [facility] MCH (RBC) [Entitic mass] 32.5 pg 26.0 - 34.0 pg [facility] MCHC (RBC) [Mass/Vol] 35.7 g/dL 30.5 - 36.0 g/dL [facility] MCV (RBC) [Entitic vol] 91.1 fL 80.0 - 100.0 fL [facility] Monocytes (Bld) [#/Vol] 0.48 10*3/uL [facility] Monocytes/100 WBC (Bld) 11.4 % [facility] Neutrophils (Bld) [#/Vol] 2.88 10*3/uL [facility] Neutrophils/100 WBC (Bld) 68.4 % [facility] Nucleated RBC (Bld) [#/Vol] [facility] Nucleated RBC/100 WBC (Bld) [Ratio] 0.0 % /100 WBC [facility] Platelet mean volume (Bld) [Entitic vol] 10.2 fL 9.0 - 12.7 fL [facility] Platelets (Bld) [#/Vol] 182 10*3/uL [facility] RBC (Bld) [#/Vol] 3.94 10*6/uL Low 4.20 - 6.0 0 m/uL [facility] WBC (Bld) [#/Vol] 4.22 10*3/uL [facility] Basophils (Bld) [#/Vol] 0.04 10*3/uL Normal <0.11 [facility] Comment on above: Order Comment: Speci men Type: BLOOD SPECIMENOrdering Facility: [facility] Address: [address] [place] [address] Performed By: #### 5 7021-8 ####[facility] LABCLIA [id number] [place] [address] Basophils/100 WBC (Bld) 0.9 % Normal [facility] Comment on above: Order Comment: Speci men Type: BLOOD SPECIMENOrdering Facility: [facility] Address: [address] [place] [address] Performed By: #### 5 7021-8 ####[facility] LABCLIA [id number] [place] [address] Differential cell count method Nom (Bld) Auto Normal [facility] Comment on above: Order Comment: Speci men Type: BLOOD SPECIMENOrdering Facility: [facility] Address: [address] [place] [address] Performed By: #### 5 7021-8 ####[facility] LABCLIA [id number] [place] [address] Eosinophils (Bld) [#/Vol] 0.04 10*3/uL Normal <0.46 [facility] Comment on above: Order Comment: Speci men Type: BLOOD SPECIMENOrdering Facility: [facility] Address: [address] [place] [address] Performed By: #### 5 7021-8 ####[facility] LABCLIA [id number] [place] [address] Eosinophils/100 WBC (Bld) 0.9 % Normal [facility] Comment on above: Order Comment: Speci men Type: BLOOD SPECIMENOrdering Facility: [facility] Address: [address] [place] [address] Performed By: #### 5 7021-8 ####[facility] LABCLIA [id number] [place] [address] Erythrocyte distribution width (RBC) [Ratio] 13.2 % Normal 11.5-15.0 [facility] Comment on above: Order Comment: Speci men Type: BLOOD SPECIMENOrdering Facility: [facility] Address: [address] [place] [address] Performed By: #### 5 7021-8 ####[facility] LABCLIA [id number] [place] [address] Hematocrit (Bld) [Volume fraction] 35.9 % Low 39.0-51.0 [facility] Comment on above: Order Comment: Speci men Type: BLOOD SPECIMENOrdering Facility: [facility] Address: [address] [place] [address] Performed By: #### 5 7021-8 ####[facility] LABCLIA [id number] [place] [address] Hemoglobin (Bld) [Mass/Vol] 12.8 g/dL Low 13.0-17.0 [facility] Comment on above: Order Comment: Speci men Type: BLOOD SPECIMENOrdering Facility: [facility] Address: [address] [place] [address] Performed By: #### 5 7021-8 ####[facility] LABCLIA [id number] [place] [address] Immature granulocytes (Bld) [#/Vol] 10*3/uL Normal <0.10 [facility] Comment on above: Order Comment: Speci men Type: BLOOD SPECIMENOrdering Facility: [facility] Address: [address] [place] [address] Performed By: #### 5 7021-8 ####[facility] LABCLIA [id number] [place] [address] Immature granulocytes/100 WBC (Bld) 0.2 % Normal [facility] Comment on above: Order Comment: Speci men Type: BLOOD SPECIMENOrdering Facility: [facility] Address: [address] [place] [address] Performed By: #### 5 7021-8 ####[facility] LABCLIA [id number] [place] [address] Lymphocytes (Bld) [#/Vol] 0.77 10*3/uL Low 1.00-4.00 [facility] Comment on above: Order Comment: Speci men Type: BLOOD SPECIMENOrdering Facility: [facility] Address: [address] [place] [address] Performed By: #### 5 7021-8 ####[facility] LABCLIA [id number] [place] [address] Lymphocytes/100 WBC (Bld) 18.2 % Normal [facility] Comment on above: Order Comment: Speci men Type: BLOOD SPECIMENOrdering Facility: [facility] Address: [address] [place] [address] Performed By: #### 5 7021-8 ####[facility] LABCLIA [id number] [place] [address] MCH (RBC) [Entitic mass] 32.5 pg Normal 26.0-34.0 [facility] Comment on above: Order Comment: Speci men Type: BLOOD SPECIMENOrdering Facility: [facility] Address: [address] [place] [address] Performed By: #### 5 7021-8 ####[facility] LABCLIA [id number] [place] [address] MCHC (RBC) [Mass/Vol] 35.7 g/dL Normal 30.5-36.0 [facility] Comment on above: Order Comment: Speci men Type: BLOOD SPECIMENOrdering Facility: [facility] Address: [address] [place] [address] Performed By: #### 5 7021-8 ####[facility] LABIA [id number] [place] [address] MCV (RBC) [Entitic vol] 91.1 fL Normal 80.0-100.0 [facility] Comment on above: Order Comment: Speci men Type: BLOOD SPECIMENOrdering Facility: [facility] Address: [address] [place] [address] Performed By: #### 5 7021-8 ####[facility] LABIA [id number] [place] [address] Monocytes (Bld) [#/Vol] 0.48 10*3/uL Normal <0.87 [facility] Comment on above: Order Comment: Speci men Type: BLOOD SPECIMENOrdering Facility: [facility] Address: [address] [place] [address] Performed By: #### 5 7021-8 ####[facility] LABCLIA [id number] [place] [address] Monocytes/100 WBC (Bld) 11.4 % Normal [facility] Comment on above: Order Comment: Speci men Type: BLOOD SPECIMENOrdering Facility: [facility] Address: [address] [place] [address] Performed By: #### 5 7021-8 ####[facility] LABCLIA [id number] [place] [address] Neutrophils (Bld) [#/Vol] 2.88 10*3/uL Normal 1.45-7.50 [facility] Comment on above: Order Comment: Speci men Type: BLOOD SPECIMENOrdering Facility: [facility] Address: [address] [place] [address] Performed By: #### 5 7021-8 ####[facility] LABCLIA [id number] [place] [address] Neutrophils/100 WBC (Bld) 68.4 % Normal [facility] Comment on above: Order Comment: Speci men Type: BLOOD SPECIMENOrdering Facility: [facility] Address: [address] [place] [address] Performed By: #### 5 7021-8 ####[facility] LABCLIA [id number] [place] [address] Nucleated RBC (Bld) [#/Vol] 10*3/uL Normal <0.01 [facility] Comment on above: Order Comment: Speci men Type: BLOOD SPECIMENOrdering Facility: [facility] Address: [address] [place] [address] Performed By: #### 5 7021-8 ####[facility] LABCLIA [id number] [place] [address] Nucleated RBC/100 WBC (Bld) [Ratio] 0.0 /100 WBC Normal [facility] Comment on above: Order Comment: Speci men Type: BLOOD SPECIMENOrdering Facility: [facility] Address: [address] [place] [address] Performed By: #### 5 7021-8 ####[facility] LABCLIA [id number] [place] [address] Platelet mean volume (Bld) [Entitic vol] 10.2 fL Normal 9.0-12.7 [facility] Comment on above: Order Comment: Speci men Type: BLOOD SPECIMENOrdering Facility: [facility] Address: [address] [place] [address] Performed By: #### 5 7021-8 ####[facility] LABCLIA [id number] [place] [address] Platelets (Bld) [#/Vol] 182 10*3/uL Normal 150-400 [facility] Comment on above: Order Comment: Speci men Type: BLOOD SPECIMENOrdering Facility: [facility] Address: [address] [place] [address] Performed By: #### 5 7021-8 ####[facility] LABCLIA [id number] [place] [address] RBC (Bld) [#/Vol] 3.94 10*6/uL Low 4.20-6.00 [facility] Comment on above: Order Comment: Speci men Type: BLOOD SPECIMENOrdering Facility: [facility] Address: [address] [place] [address] Performed By: #### 5 7021-8 ####[facility] LABCLIA [id number] [place] [address] WBC (Bld) [#/Vol] 4.22 10*3/uL Normal 3.70-11.00 [facility] Comment on above: Order Comment: Speci men Type: BLOOD SPECIMENOrdering Facility: [facility] Address: [address] [place] [address] Performed By: #### 5 7021-8 ####[facility] LABCLIA [id number] [place] [address] CT CHEST W IVCONon 4 CT CHEST W IVCON * * *Final Report* * * DATE OF EXAM: Jun 22 2024 9:02AM [facility] 0539 - CT CHEST W [...] abdomen: Visualized upper abdomen is grossly unremarkable. Pricing Intern (topogram) images: Unremarkable. IMPRESSION: Previously identified new [...] any questions regarding this interpretation, please call [phone]. If you are unable to reach us at the number above, please feel free to contact [facility] at [phone]. [id number] Normal [facility] CT Chest W contrast Javier IMPRESSION: Previously [...] any questions regarding this interpretation, please call [phone]. If you are unable to reach us at the number above, please feel free to contact [facility] at [phone]. DIVISION OF RADIOLOGY * * *Final Report* * * DATE OF EXAM: Jun 22 2024 9:02AM [facility] 0539 - CT CHEST W [...] abdomen: Visualized upper abdomen is grossly unremarkable. Pricing Intern (topogram) images: Unremarkable. DIVISION OF RADIOLOGY Provider, [facility] * * *Final Report* * * DATE OF EXAM: Jun 22 2024 9:02AM [facility] 0539 - CT CHEST W [...] abdomen: Visualized upper abdomen is grossly unremarkable. Pricing Intern (topogram) images: Unremarkable. IMPRESSION IMPRESSION: Previously identified [...] any questions regarding this interpretation, please call [phone]. If you are unable to reach us at the number above, please feel free to contact [facility] at [phone]. [facility] Radiology Study observation (narrative) [facility] CT Chest W contrast IVOrdere d By: Ccf Provider on 06-22-2024 [facility] Comprehensive metabolic 2000 panelOrdered By: Les Luke on 06-22-2024 Albumin [Mass/Vol] 5.1 g/dL High 3.9 - 4.9 g/dL [facility] ALP [Catalytic activity/Vol] 88 U/L 38 - 113 U/L [facility] ALT [Catalytic activity/Vol] 15 U/L 10 - 54 U/L [facility] Anion gap [Moles/Vol] 9 mmol/L 8 - 15 mmol/L [facility] AST [Catalytic activity/Vol] 33 U/L 14 - 40 U/L [facility] Bilirubin [Mass/Vol] 1.1 mg/dL 0.2 - 1.3 mg/dL [facility] Calcium [Mass/Vol] 10.3 mg/dL High 8.5 - 10. 2 mg/dL [facility] Chloride [Moles/Vol] 97 mmol/L Low 98 - 107 mmol/L [facility] CO2 [Moles/Vol] 26 mmol/L 22 - 30 mmol/L [facility] Creatinine [Mass/Vol] 0.96 mg/dL 0.73 - 1.22 mg/dL [facility] GFR/1.73 sq M.predicted among non-blacks MDRD (S/P/Bld) [Vol rate/Area] 87 mL/min/{1.73_m2} - PINF [facility] Comment on above: Estimated Glomerular Filtration [...] 104 mg/dL High 74 - 99 mg/dL [facility] Comment on above: The [place] Diabete s Association (ADA) provides guidance for [...] Standards of Medical Care in Diabetes 2016, [place] [employer]. Diabetes Care. 2016.39(Suppl 1). Interpretation and review of laboratory results Abnormal [facility] Potassium [Moles/Vol] 5.0 mmol/L 3.7 - 5.1 mmol/L [facility] Protein [Mass/Vol] 7.9 g/dL 6.3 - 8.0 g/dL [facility] Sodium [Moles/Vol] 132 mmol/L Low 136 - 144 mmol/L [facility] Urea nitrogen [Mass/Vol] 11 mg/dL 9 - 24 mg/dL [facility] Comprehensive metabolic 2000 panelon 06-22-2024 Albumin [Mass/Vol] 5.1 g/dL High 3.9-4.9 [facility] Comment on above: Order Comment: Arturi yanelis Type: BLOOD SPECIMENOrdering Facility: [facility] Address: [address] [place] [address] Performed By: #### 2 4323-8 ####[facility] LABCLIA [id number] [place] [address] ALP [Catalytic activity/Vol] 88 U/L Normal 38-113 [facility] Comment on above: Order Comment: Arturi men Type: BLOOD SPECIMENOrdering Facility: [facility] Address: [address] [id number] Performed By: #### 2 4323-8 ####[facility] LABCLIA [id number] [place] [address] ALT [Catalytic activity/Vol] 15 U/L Normal 10-54 [facility] Comment on above: Order Comment: Speci men Type: BLOOD SPECIMENOrdering Facility: [facility] Address: [address] [place] [address] Performed By: #### 2 4323-8 ####[facility] LABCLIA [id number] [place] [address] Anion gap [Moles/Vol] 9 mmol/L Normal 8-15 [facility] Comment on above: Order Comment: Speci men Type: BLOOD SPECIMENOrdering Facility: [facility] Address: [address] [place] [address] Performed By: #### 2 4323-8 ####[facility] LABCLIA [id number] [place] [address] AST [Catalytic activity/Vol] 33 U/L Normal 14-40 [facility] Comment on above: Order Comment: Speci men Type: BLOOD SPECIMENOrdering Facility: [facility] Address: [address] [place], [place] [address] Performed By: #### 2 4323-8 ####[facility] LABCLIA [id number] [place] [address] Bilirubin [Mass/Vol] 1.1 mg/dL Normal 0.2-1.3 [facility] Comment on above: Order Comment: Speci men Type: BLOOD SPECIMENOrdering Facility: [facility] Address: [address] [place] [address] Performed By: #### 2 4323-8 ####[facility] LABCLIA [id number] [place] [address] Calcium [Mass/Vol] 10.3 mg/dL High 8.5-10.2 [facility] Comment on above: Order Comment: Speci men Type: BLOOD SPECIMENOrdering Facility: [facility] Address: [address] [place] [address] Performed By: #### 2 4323-8 ####[facility] LABCLIA [id number] [place] [address] Chloride [Moles/Vol] 97 mmol/L Low 98-107 [facility] Comment on above: Order Comment: Speci men Type: BLOOD SPECIMENOrdering Facility: [facility] Address: [address] [place] [address] Performed By: #### 2 4323-8 ####[facility] LABCLIA [id number] [place] [address] CO2 [Moles/Vol] 26 mmol/L Normal 22-30 [facility] Comment on above: Order Comment: Speci men Type: BLOOD SPECIMENOrdering Facility: [facility] Address: [address] [place] [address] Performed By: #### 2 4323-8 ####[facility] LABCLIA [id number] [place] [address] Creatinine [Mass/Vol] 0.96 mg/dL Normal 0.73-1.22 [facility] Comment on above: Order Comment: Speci men Type: BLOOD SPECIMENOrdering Facility: [facility] Address: [address] [place] [address] Performed By: #### 2 4323-8 ####[facility] LABCLIA [id number] [place] [address] Creatinine and Glomerular filtration rate.predicted panel (S/P/Bld) 87 mL/min/1.73m??? Normal >=60 [facility] Comment on above: Order Comment: Speci men Type: BLOOD SPECIMENOrdering Facility: [facility] Address: [address] [place] [address] Result Comment: Lulú mated Glomerular Filtration Rate [...] actual GFR. Performed By: #### 2 4323-8 ####[facility] LABCLIA [id number] [place] [address] Glucose [Mass/Vol] 104 mg/dL High 74-99 [facility] Comment on above: Order Comment: Speci men Type: BLOOD SPECIMENOrdering Facility: [facility] Address: [address] [place] [address] Result Comment: The [place] Diabetes Association (ADA) provides guidance for cutoff [...] Standards of Medical Care in Diabetes 2016, [place] [employer]. Diabetes Care. 2016.39(Suppl 1). Performed By: #### 2 4323-8 ####[facility] LABCLIA [id number] [place] [address] Potassium [Moles/Vol] 5.0 mmol/L Normal 3.7-5.1 [facility] Comment on above: Order Comment: Speci men Type: BLOOD SPECIMENOrdering Facility: [facility] Address: [address] [place] [address] Performed By: #### 2 4323-8 ####[facility] LABCLIA [id number] [place] [address] Protein [Mass/Vol] 7.9 g/dL Normal 6.3-8.0 [facility] Comment on above: Order Comment: Speci men Type: BLOOD SPECIMENOrdering Facility: [facility] Address: [address] [place], [place] [address] Performed By: #### 2 4323-8 ####[facility] LABCLIA [id number] [place] [address] Sodium [Moles/Vol] 132 mmol/L Low 136-144 [facility] Comment on above: Order Comment: Speci men Type: BLOOD SPECIMENOrdering Facility: [facility] Address: [address] [place], [place] [address] Performed By: #### 2 4323-8 ####[facility] LABCLIA [id number] [place] [address] Urea nitrogen [Mass/Vol] 11 mg/dL Normal 9-24 [facility] Comment on above: Order Comment: Speci men Type: BLOOD SPECIMENOrdering Facility: [facility] Address: [address] [place], [place] [address] Performed By: #### 2 4323-8 ####[facility] LABCLIA [id number] [place] [address] Abe 06-12-2024 CNPN Telephone (MYLA) CARSON MORSE ([id number]) 1955 M Date Time Provider Department 06/12/24 [...] liver [K76.0] Order(s):ALPHA FETOPROTEIN [SQAFP] Order #: [id number] FUTURE US ABD RIGHT UPPER QUADRANT [[id number]] Order #: [id number] FUTURE DDI VIBRATION CONTROLLED TRANSIENT ELASTOGRAPHY (VCTE) [[id number]] Order #: [id number] Prescriptions as of 06/19/2024 - levoFLOXacin (LEVAQUIN) [...] Encounter Status:Closed by EMILY ARMSTRONG on 06/19/24 [facility] US ABD RIGHT UPPER QUADRANTo n [...] the liver which may reflect mild/early cirrhosis. Adobe Developer: ALEJO Transcribe Date/Time: May 28 2024 7:30P Dictated by : IVANNA CROFT MD This examination was interpreted and the report reviewed and electronically signed by: IVNANA CROFT MD on May 28 2024 7:33PM EST [id number] Normal [facility] US Abdomen RUQon 05-28-2024 IMPRESSION: 1. Increase echogenicity the liver, likely secondary to hepatic steatosis. There is questionable minimal nodularity on the contour of the liver which may reflect mild/early cirrhosis. Adobe Developer: ALEJO Transcribe Date/Time: May 28 2024 7:30P [...] hydronephrosis. Ascites: None. [facility] * * *Final Report* * [...] the liver which may reflect mild/early cirrhosis. Adobe Developer: ALEJO Transcribe Date/Time: May 28 2024 7:30P Dictated by : IVANNA CROFT MD This examination was interpreted and the report reviewed and electronically signed by: IVANNA CRFOT MD on May 28 2024 7:33PM EST [facility] Radiology Study observation (narrative) [facility] US Abdomen RUQOrdered By: Cc f Provider on 05-28-2024 [facility] Abe 05-24-2024 CNPN Telephone (MYLA) CARSON MORSE ([id number]) 1955 M Date Time Provider Department 05/24/24 HALIMA NIXON During your visit today, we recorded the following information about you: Emily Armstrong RN 05/24/2024 9:56 AM Addendum ----- Message from Halima Nixon MD sent at 05/23/2024 2:56 PM EDT ----- Negative hep C RNA consistent with sustained response Repeat in one year Reviewed test results Pt read result message from Dr. Nixon via [employer]. Called and spoke to patient regarding test results and recommendation from Dr. Nixon Pt state dUS is sched for Mon at [facility] Demonstrated understanding Dr. Lund, Orders submitted for repeat Hep C RNA Please review and sign Thanks, Emily Armstrong RN Allergies As of Date: 05/24/2024 (No Known Allergies) Date Reviewed: 03/30/2024 Reviewed by: Felipa Sosa MA - Fully Assessed Primary Visit Diagnosis:Chronic hepatitis C without hepatic coma (HCC) [B18.2] Order(s):HEPATITIS C RNA QUANTIFICATION BY PCR, PLASMA/SERUM [SQHCQPCR] Order #: [id number] FUTURE Prescriptions as of 06/11/2024 - levoFLOXacin [...] Status:Closed by EMILY ARMSTRONG on 05/24/24 Normal [facility] HCV RNA SerPl PAULA+probe-aCnc on 05-22-2024 HCV RNA PAULA+probe Qn Not detected Normal HCV RNA not detected by PCR. [facility] Comment on above: Order Comment: Speci men Type: BLOOD SPECIMENOrdering Facility: [facility] Address: [address] [place] [address] Performed By: #### 1 1011-4 ####[facility] LABCLIA [id number] [address] [place] [facility] CNPNon 05-17-2024 CNPN Telephone (GASTNO) CARSON MORSE ([id number]) 1955 M Date Time Provider Department 05/17/24 [...] LFTs [R79.89] Order(s):US ABD RIGHT UPPER QUADRANT [[id number]] Order #: [id number] FUTURE HEPATITIS C RNA QUANTIFICATION BY PCR, PLASMA/SERUM [SQHCQPCR] Order #: [id number] FUTURE Prescriptions as of 05/21/2024 - levoFLOXacin [...] Encounter Status:Closed by EMILY ARMSTRONG on 05/21/24 [facility] CNOVSPon 03-30-2024 CNOVS Visit (SP) Office (SHANI) CARSON MORSE ([id number]) 1955 M Date Time Provider Department 03/30/24 2:45 PM WYATT GARZA During your visit today, we recorded the following information about you: Temperature Pulse Respiration Blood pressure 97.2 degrees 82/minute 16/minute 129/79 Weight Height 64 kg 1.651 m Wyatt Garza MD 04/01/2024 9:31 AM Signed NAME: Carson Morse CLINIC NO.: [id number] DATE OF SERVICE: March 30, 2024 ([facility]) Some elements in this clinic [...] he has (more content not included)... Normal [facility] CREATININE BLDOrdered By: Yanni Carrizales on 03-23-2024 Creatinine [Mass/Vol] 0.84 mg/dL 0.73 - 1.22 mg/dL [facility] GFR/1.73 sq M.predicted among non-blacks MDRD (S/P/Bld) [Vol rate/Area] 96 mL/min/{1.73_m2} - PINF [facility] Comment on above: Estimated Glomerular Filtration [...] Interpretation and review of laboratory results Normal [facility] CREATININE BLDon 03-23-2024 Creatinine [Mass/Vol] 0.84 mg/dL Normal 0.73-1.22 [facility] Comment on above: Order Comment: Gretel hilario Type: BLOOD SPECIMENOrdering Facility: [facility] Address: [address] [place] [address] Performed By: #### C RET1 ####[facility] LABCLIA [id number] [place] [address] Creatinine and Glomerular filtration rate.predicted panel (S/P/Bld) 96 mL/min/1.73m??? Normal >=60 [facility] Comment on above: Order Comment: Gretel hilario Type: BLOOD SPECIMENOrdering Facility: [facility] Address: [address] [place] [address] Result Comment: Lulú mated Glomerular Filtration Rate [...] actual GFR. Performed By: #### C RET1 ####[facility] LABCLIA [id number] [place] [address] CT CHEST W IVCONon 4 CT CHEST W IVCON * * *Final Report* * * DATE OF EXAM: Mar 23 2024 8:49AM [facility] 0539 - CT CHEST W [...] of an adrenal mass in the visualized [id number]-dc-[id number]. Fat-containing epigastric anterior abdominal hernia.. Pricing Intern (topogram) images: No additional findings. IMPRESSION: 1. [...] any questions regarding this interpretation, please call [phone]. If you are unable to reach us at the number above, please feel free to contact [facility] at [phone]. [id number] Normal [facility] CT Chest W contrast Javier IMPRESSION: 1. [...] any questions regarding this interpretation, please call [phone]. If you are unable to reach us at the number above, please feel free to contact [facility] at [phone]. DIVISION OF RADIOLOGY * * *Final Report* * * DATE OF EXAM: Mar 23 2024 8:49AM [facility] 0539 - CT CHEST W [...] of an adrenal mass in the visualized ttrxc-yf-[id number]. Fat-containing epigastric anterior abdominal hernia.. Pricing Intern (topogram) images: No additional findings. DIVISION OF RADIOLOGY Provider, [facility] - 03/23/2024 * * *Final Report* * * DATE OF EXAM: Mar 23 2024 8:49AM [facility] 0539 - CT CHEST W [...] of an adrenal mass in the visualized dyfus-yz-dapn. Fat-containing epigastric anterior abdominal hernia.. Pricing Intern (topogram) images: No additional findings. IMPRESSION IMPRESSION: [...] any questions regarding this interpretation, please call [phone]. If you are unable to reach us at the number above, please feel free to contact [facility] at [phone]. [facility] Radiology Study observation (narrative) [facility] CT Chest W contrast IVOrdere d By: Ccf Provider on 03-23-2024 [facility] CBC W Auto Differential pane l (Bld)on 12-16-2023 Basophils (Bld) [#/Vol] 0.05 10*3/uL [facility] Basophils/100 WBC (Bld) 1.2 % [facility] Differential cell count method Nom (Bld) Auto [facility] Eosinophils (Bld) [#/Vol] 0.04 10*3/uL [facility] Eosinophils/100 WBC (Bld) 0.9 % [facility] Erythrocyte distribution width (RBC) [Ratio] 13.1 % 11.5 - 15.0 % [facility] Hematocrit (Bld) [Volume fraction] 38.0 % Low 39.0 - 51.0 % [facility] Hemoglobin (Bld) [Mass/Vol] 12.9 g/dL Low 13.0 - 17.0 g/dL [facility] Immature granulocytes (Bld) [#/Vol] [facility] Immature granulocytes/100 WBC (Bld) 0.2 % [facility] Interpretation and review of laboratory results Abnormal [facility] Lymphocytes (Bld) [#/Vol] 0.83 10*3/uL Low [facility] Lymphocytes/100 WBC (Bld) 19.5 % [facility] MCH (RBC) [Entitic mass] 31.7 pg 26.0 - 34.0 pg [facility] MCHC (RBC) [Mass/Vol] 33.9 g/dL 30.5 - 36.0 g/dL [facility] MCV (RBC) [Entitic vol] 93.4 fL 80.0 - 100.0 fL [facility] Monocytes (Bld) [#/Vol] 0.37 10*3/uL NINF [facility] Monocytes/100 WBC (Bld) 8.7 % [facility] Neutrophils (Bld) [#/Vol] 2.95 10*3/uL [facility] Neutrophils/100 WBC (Bld) 69.5 % [facility] Nucleated RBC (Bld) [#/Vol] NINF [facility] Nucleated RBC/100 WBC (Bld) [Ratio] 0.0 % /100 WBC [facility] Platelet mean volume (Bld) [Entitic vol] 9.6 fL 9.0 - 12.7 fL [facility] Platelets (Bld) [#/Vol] 197 10*3/uL [facility] RBC (Bld) [#/Vol] 4.07 10*6/uL Low 4.20 - 6.0 0 m/uL [facility] WBC (Bld) [#/Vol] 4.25 10*3/uL [facility] CT Chest W contrast Javier IMPRESSION: 1. [...] any questions regarding this interpretation, please call [phone]. If you are unable to reach us at the number above, please feel free to contact [facility] at [phone]. DIVISION OF RADIOLOGY * * *Final Report* * * DATE OF EXAM: Dec 16 2023 10:46AM [facility] 0539 - CT CHEST W [...] No abnormality in the imaged upper abdomen. Pricing Intern (topogram) images: No additional findings. DIVISION OF RADIOLOGY Provider, [facility] - 12/16/2023 * * *Final Report* * * DATE OF EXAM: Dec 16 2023 10:46AM [facility] 0539 - CT CHEST W [...] No abnormality in the imaged upper abdomen. Pricing Intern (topogram) images: No additional findings. IMPRESSION IMPRESSION: [...] any questions regarding this interpretation, please call [phone]. If you are unable to reach us at the number above, please feel free to contact [facility] at [phone]. [facility] CT Chest W contrast IVOrdere d By: Ccf Provider on 12-16-[address] [facility] [address] Neck W contrast Javier IMPRESSION: [...] any questions regarding this interpretation, please call [phone]. If you are unable to reach us at the number above, please feel free to contact [facility] at [phone]. DIVISION OF RADIOLOGY * * *Final Report* * * DATE OF EXAM: Dec 16 2023 10:46AM [facility] 0013 - CT NECK SOFT [...] The soft tissue planes of the adjacent corpsman spaces are maintained. Mild dystrophic calcification is [...] Other: Not applicable. DIVISION OF RADIOLOGY Provider, [facility] - 12/16/2023 * * *Final Report* * * DATE OF EXAM: Dec 16 2023 10:46AM [facility] 0013 - CT NECK SOFT [...] The soft tissue planes of the adjacent corpsman spaces are maintained. Mild dystrophic calcification is [...] any questions regarding this interpretation, please call [phone]. If you are unable to reach us at the number above, please feel free to contact [facility] at [phone]. [facility] Comprehensive metabolic 2000 panelOrdered By: Les Lkue on 12-16-2023 Albumin [Mass/Vol] 4.4 g/dL 3.9 - 4.9 g/dL [facility] ALP [Catalytic activity/Vol] 76 U/L 38 - 113 U/L [facility] ALT [Catalytic activity/Vol] 9 U/L Low 10 - 54 U/L [facility] Anion gap [Moles/Vol] 11 mmol/L 9 - 18 mmol/L [facility] AST [Catalytic activity/Vol] 21 U/L 14 - 40 U/L [facility] Bilirubin [Mass/Vol] 0.8 mg/dL 0.2 - 1.3 mg/dL [facility] Calcium [Mass/Vol] 10.2 mg/dL 8.5 - 10. 2 mg/dL [facility] Chloride [Moles/Vol] 99 mmol/L 97 - 105 mmol/L [facility] CO2 [Moles/Vol] 25 mmol/L 22 - 30 mmol/L [facility] Creatinine [Mass/Vol] 0.84 mg/dL 0.73 - 1.22 mg/dL [facility] GFR/1.73 sq M.predicted among non-blacks MDRD (S/P/Bld) [Vol rate/Area] 96 mL/min/{1.73_m2} - PINF [facility] Comment on above: Estimated Glomerular Filtration [...] [Mass/Vol] 99 mg/dL 74 - 99 mg/dL [facility] Comment on above: The [place] Diabete s Association (ADA) provides guidance for [...] Standards of Medical Care in Diabetes 2016, [place] [employer] Association. Diabetes Care. 2016.39(Suppl 1). Interpretation and review of laboratory results Abnormal [facility] Potassium [Moles/Vol] 4.5 mmol/L 3.7 - 5.1 mmol/L [facility] Protein [Mass/Vol] 7.2 g/dL 6.3 - 8.0 g/dL [facility] Sodium [Moles/Vol] 135 mmol/L Low 136 - 144 mmol/L [facility] Urea nitrogen [Mass/Vol] 12 mg/dL 9 - 24 mg/dL [facility] No Panel Informationon 12-16 Radiology Study observation (narrative) [facility] Provider Letteron 03-16-2023 Provider Letter March 16, 2023 CARSON MORSE [address] [place] [id number] CARSON MORSE 1955 Dear Mr. Morse , [...] prompt attention to this matter. Please call [phone] and choose the asset protection representative option. Sincerely, [facility] [address] [place] [address] [facility] Provider Letteron 03-03-2023 Provider Letter March 03, 2023 CARSON MORSE [address] [place] [phone] LITO CARSON Chilel 1955 Dear Thom , We have been trying to reach you with no success. You have an appointment with Dr. Sushil Edgar on 04/12/2023 which will need to be rescheduled. Please contact the office at the number listed below to get this appointment rescheduled at your earliest convenience. Thank you for your prompt attention to this matter. Sincerely, [facility] [address], [place] [address] [facility] XR ANKLE RT MIN 3 VIEWSon [...] ACE ARREOLA Date: 2023-01-27 14:40 Normal [facility] XR ANKLE RT MIN 3 VIEWSon [...] BENEDICTO THAO Date: 2022-12-29 12:44 Normal [facility] FERRITIN BLDon 12-16-2022 Ferritin [Mass/Vol] 807.0 ng/mL High 30.3 - 5 65.7 ng/mL [facility] FOLATE SERUMon 12-16-2022 Folate [Mass/Vol] 10.7 ng/mL 4.7 - PINF ng/mL [facility] Ferritin [Mass/Vol]on 2022 Interpretation and review of laboratory results Abnormal [facility] Iron and Iron binding capaci ty panelon 12-16-2022 Interpretation and review of laboratory results Abnormal [facility] Iron [Mass/Vol] 213 ug/dL High 41 - 186 ug/dL [facility] Iron binding capacity [Mass/Vol] 421 ug/dL High 232 - 386 ug/dL [facility] Iron/TIBC [Molar ratio] 50.6 % 15.0 - 57.0 % [facility] No Panel Informationon 12-16 Interpretation and review of laboratory results Normal [facility] TSH BLDon 12-16-2022 TSH Qn 2.470 m[IU]/L [facility] TSH Qnon 12-16-2022 Interpretation and review of laboratory results Normal [facility] VITAMIN B12 BLOODon 12-16-19 Cobalamin (Vitamin B12) [Mass/Vol] 276 pg/mL 232 - 1245 pg/mL [facility] CBC W Auto Differential pane l (Bld)on 12-15-2022 Basophils (Bld) [#/Vol] 0.05 10*3/uL [facility] Basophils/100 WBC (Bld) 1.1 % [facility] Differential cell count method Nom (Bld) Auto [facility] Eosinophils (Bld) [#/Vol] 0.04 10*3/uL [facility] Eosinophils/100 WBC (Bld) 0.9 % [facility] Erythrocyte distribution width (RBC) [Ratio] 13.4 % 11.5 - 15.0 % [facility] Hematocrit (Bld) [Volume fraction] 36.7 % Low 39.0 - 51.0 % [facility] Hemoglobin (Bld) [Mass/Vol] 12.5 g/dL Low 13.0 - 17.0 g/dL [facility] Immature granulocytes (Bld) [#/Vol] [facility] Immature granulocytes/100 WBC (Bld) 0.2 % [facility] Interpretation and review of laboratory results Abnormal [facility] Lymphocytes (Bld) [#/Vol] 0.60 10*3/uL Low [facility] Lymphocytes/100 WBC (Bld) 13.5 % [facility] MCH (RBC) [Entitic mass] 33.8 pg 26.0 - 34.0 pg [facility] MCHC (RBC) [Mass/Vol] 34.1 g/dL 30.5 - 36.0 g/dL [facility] MCV (RBC) [Entitic vol] 99.2 fL 80.0 - 100.0 fL [facility] Monocytes (Bld) [#/Vol] 0.41 10*3/uL [facility] Monocytes/100 WBC (Bld) 9.2 % [facility] Neutrophils (Bld) [#/Vol] 3.34 10*3/uL [facility] Neutrophils/100 WBC (Bld) 75.1 % [facility] Nucleated RBC (Bld) [#/Vol] NINF [facility] Nucleated RBC/100 WBC (Bld) [Ratio] 0.0 % /100 WBC [facility] Platelet mean volume (Bld) [Entitic vol] 9.2 fL 9.0 - 12.7 fL [facility] Platelets (Bld) [#/Vol] 174 10*3/uL [facility] RBC (Bld) [#/Vol] 3.70 10*6/uL Low 4.20 - 6.0 0 m/uL [facility] WBC (Bld) [#/Vol] 4.45 10*3/uL [facility] This is an appended report. These results have been appended to a previously verified report. [facility] CT Chest W contrast Javier IMPRESSION: [...] any questions regarding this interpretation, please call [phone]. If you are unable to reach us at the number above, please feel free to contact [facility] at [phone]. DIVISION OF RADIOLOGY * * *Final Report* * * DATE OF EXAM: Dec 15 2022 8:49AM [facility] 0539 - CT CHEST W [...] images through the upper abdomen are stable. Pricing Intern (topogram) images: No additional findings. DIVISION OF RADIOLOGY Provider, [facility] - 12/15/2022 * * *Final Report* * * DATE OF EXAM: Dec 15 2022 8:49AM [facility] 0539 - CT CHEST W [...] images through the upper abdomen are stable. Pricing Intern (topogram) images: No additional findings. IMPRESSION IMPRESSION: [...] any questions regarding this interpretation, please call [phone]. If you are unable to reach us at the number above, please feel free to contact [facility] at [phone]. [facility] CT Neck W contrast Javier 02-0 [...] any questions regarding this interpretation, please call [phone]. If you are unable to reach us at the number above, please feel free [facility] [phone]. DIVISION OF RADIOLOGY * * *Final Report* * * DATE OF EXAM: Dec 15 2022 8:49AM [facility] 0013 - CT NECK SOFT [...] was performed concurrently and is dictated separately. Pricing Intern (topogram) images: No additional findings. DIVISION OF RADIOLOGY Provider, [facility] - 12/15/2022 * * *Final Report* * * DATE OF EXAM: Dec 15 2022 8:49AM [facility] 0013 - CT NECK SOFT [...] was performed concurrently and is dictated separately. Pricing Intern (topogram) images: No additional findings. IMPRESSION IMPRESSION: [...] any questions regarding this interpretation, please call [phone]. If you are unable to reach us at the number above, please feel free to contact [facility] at [phone]. [facility] CT Neck W contrast IVOrdered By: Ccf Provider on 12-15-2022 [facility] Comprehensive metabolic 2000 panelOrdered By: Les Luke on 12-15-2022 Albumin [Mass/Vol] 5.0 g/dL High 3.9 - 4.9 g/dL [facility] ALP [Catalytic activity/Vol] 72 U/L 38 - 113 U/L [facility] ALT [Catalytic activity/Vol] 16 U/L 10 - 54 U/L [facility] Anion gap [Moles/Vol] 12 mmol/L 9 - 18 mmol/L [facility] AST [Catalytic activity/Vol] 30 U/L 14 - 40 U/L [facility] Bilirubin [Mass/Vol] 0.9 mg/dL 0.2 - 1.3 mg/dL [facility] Calcium [Mass/Vol] 10.5 mg/dL High 8.5 - 10. 2 mg/dL [facility] Chloride [Moles/Vol] 97 mmol/L 97 - 105 mmol/L [facility] CO2 [Moles/Vol] 28 mmol/L 22 - 30 mmol/L [facility] Creatinine [Mass/Vol] 0.73 mg/dL 0.73 - 1.22 mg/dL [facility] GFR/1.73 sq M.predicted among non-blacks MDRD (S/P/Bld) [Vol rate/Area] 100 mL/min/{1.73_m2} - PINF [facility] Comment on above: Estimated Glomerular Filtration [...] 106 mg/dL High 74 - 99 mg/dL [facility] Comment on above: The [place] Diabete s Association (ADA) provides guidance for [...] Standards of Medical Care in Diabetes 2016, [place] Diabetes Association. Diabetes Care. 2016.39(Suppl 1). Interpretation and review of laboratory results Abnormal [facility] Potassium [Moles/Vol] 4.7 mmol/L 3.7 - 5.1 mmol/L [facility] Protein [Mass/Vol] 7.8 g/dL 6.3 - 8.0 g/dL [facility] Sodium [Moles/Vol] 137 mmol/L 136 - 144 mmol/L [facility] Urea nitrogen [Mass/Vol] 11 mg/dL 9 - 24 mg/dL [facility] No Panel Informationon 12-15 Radiology Study observation (narrative) [facility] Ambulatory Visit Summaryon 0 04-06-2022 Ambulatory Visit Summary CARSON MORSE :1955 Visit Date:04/06/2022 Ambulatory Visit Instructions Your Diagnosis BPH without urinary obstruction Nocturia Tests Performed Urnls Dip Stick Auto w/o Microscopy POC 82652 Your Care Team Attending Physician - Herve [...] Sushil De Leon Where: [facility] Jose Normal [facility] Patient Educationon 04-06-20 Patient Education [...] these instructions at home: Medicines ? Take fdqp-jnq-wxtsniv and prescription medicines only as told by [...] the blood stops without treatment. ? Take hjlo-zio-iasvwib and prescription medicines only as told by [...] Reviewed: 11/26/2017 Elsevier Patient Education ? 2019 [employer] Live [facility] Urology Office/Clinic Noteon 04-06-2022 Urology [...] [facility] Baez [facility] T4 and testosterone. Previous [...] Urnls Dip Stick Auto w/o Microscopy POC 35342 2. Nocturia (R35.1: Nocturia) ongoing 2x a night Follow-up With When Contact Information Herve Flores MD, Sushil De Leon URO In 1 year 04/06/2023 EDT [facility] [address], [place] [address]- Additional Instructions: w/psa Patient Education Hematuria, Adult [...] Procedure (more content not included)... Normal Lopez [facility] Comment on above: Result Comment: Elec [...] any questions regarding this interpretation, please call [phone]. If you are unable to reach us at the number above, please feel free to contact [facility] at [phone]. DIVISION OF RADIOLOGY * * *Final Report* * * DATE OF EXAM: Dec 16 2021 8:45AM [facility] 0539 - CT CHEST W [...] of an adrenal mass in the visualized [id number]. Fat-containing epigastric anterior abdominal hernia.. Pricing Intern (topogram) images: No additional findings. DIVISION OF RADIOLOGY Provider, [facility] - 12/16/2021 * * *Final Report* * * DATE OF EXAM: Dec 16 2021 8:45AM [facility] 0539 - CT CHEST W [...] of an adrenal mass in the visualized [id number]. Fat-containing epigastric anterior abdominal hernia.. Pricing Intern (topogram) images: No additional findings. IMPRESSION IMPRESSION: [...] any questions regarding this interpretation, please call [phone]. If you are unable to reach us at the number above, please feel free to contact [facility] at [phone]. [facility] CT Neck W contrast Javier 02-0 [...] any questions regarding this interpretation, please call [phone]. If you are unable to reach us at the number above, please feel free to contact [facility] at [phone]. DIVISION OF RADIOLOGY * * *Final Report* * * DATE OF EXAM: Dec 16 2021 8:33AM [facility] 0013 - CT NECK SOFT [...] DATE OF EXAM: Dec 16 2021 8:33AM [facility] 0013 - CT NECK SOFT [...] any questions regarding this interpretation, please call [phone]. If you are unable to reach us at the number above, please feel free to contact [facility] at [phone]. [facility] No Panel Informationon 12-16 [facility] Radiology Study observation (narrative) [facility] Vital Signs Date Time Vital Sign Value Performing Clinician Facility 01-21-2025 11:18-0400 Diastolic blood pressure 85 mm[Hg] Wyatt Garza MD Work Phone: [facility] Comment on above: recheck 01-21-2025 11:18-0400 Systolic blood pressure 187 mm[Hg] Wyatt Garza MD Work Phone: [facility] Comment on above: recheck 01-21-2025 11:15-0400 Body height 165.1 cm Wyatt Garza MD Work Phone: [facility] 01-21-2025 11:15-0400 Body mass index (BMI) [Ratio] 25.5 kg/m2 Wyatt Garza MD Work Phone: [facility] 01-21-2025 11:15-0400 Body temperature 97.59 [degF] Wyatt Garza MD Work Phone: [facility] 01-21-2025 11:15-0400 Body weight 69.5 kg Wyatt Garza MD Work Phone: [facility] 01-21-2025 11:15-0400 Heart rate 77 /min Wyatt Garza MD Work Phone: [facility] 01-21-2025 11:15-0400 Respiratory rate 16 /min Wyatt Garza MD Work Phone: [facility] 01-21-2025 11:15-0400 SaO2% (BldA) [Mass fraction] 97 % Wyatt Garza MD Work Phone: [facility] 07-23-2024 08:53-0400 Body height 165.1 cm Abram Fiore MD Work Phone: [facility] 07-23-2024 08:53-0400 Body mass index (BMI) [Ratio] 23.8 kg/m2 Abram Fiore MD Work Phone: [facility] 07-23-2024 08:53-0400 Body weight 64.86 kg Abram Fiore MD Work Phone: [facility] 07-23-2024 08:53-0400 Diastolic blood pressure 98 mm[Hg] Abram Fiore MD Work Phone: [facility] 07-23-2024 08:53-0400 Systolic blood pressure 140 mm[Hg] Abram Fiore MD Work Phone: [facility] 06-29-2024 11:41-0400 Body height 165.1 cm Wyatt Garza MD Work Phone: [facility] 06-29-2024 11:41-0400 Body temperature 97.7 [degF] Wyatt Garza MD Work Phone: [facility] 06-29-2024 11:41-0400 Diastolic blood pressure 90 mm[Hg] Wyatt Garza MD Work Phone: [facility] 06-29-2024 11:41-0400 Heart rate 60 /min Wyatt Garza MD Work Phone: [facility] 06-29-2024 11:41-0400 Respiratory rate 16 /min Wyatt Garza MD Work Phone: [facility] 06-29-2024 11:41-0400 SaO2% (BldA) [Mass fraction] 98 % Wyatt Garza MD Work Phone: [facility] 06-29-2024 11:41-0400 Systolic blood pressure 153 mm[Hg] Wyatt Garza MD Work Phone: [facility] 03-30-2024 14:27-0400 Body height 165.1 cm Wyatt Garza MD Work Phone: [facility] 03-30-2024 14:27-0400 Body mass index (BMI) [Ratio] 23.5 kg/m2 Wyatt Garza MD Work Phone: [facility] 03-30-2024 14:27-0400 Body temperature 97.2 [degF] Wyatt Garza MD Work Phone: [facility] 03-30-2024 14:27-0400 Body weight 64.05 kg Wyatt Garza MD Work Phone: [facility] 03-30-2024 14:27-0400 Diastolic blood pressure 79 mm[Hg] Wyatt Garza MD Work Phone: [facility] 03-30-2024 14:27-0400 Heart rate 82 /min Wyatt Garza MD Work Phone: [facility] 03-30-2024 14:27-0400 Respiratory rate 16 /min Wyatt Garza MD Work Phone: [facility] 03-30-2024 14:27-0400 SaO2% (BldA) [Mass fraction] 98 % Wyatt Garza MD Work Phone: [facility] 03-30-2024 14:27-0400 Systolic blood pressure 129 mm[Hg] Wyatt Garza MD Work Phone: [facility] 12-19-2023 10:07-0500 Body height 165.1 cm Wyatt Garza MD Work Phone: [facility] 12-19-2023 10:07-0500 Body temperature 97.59 [degF] Wyatt Garza MD Work Phone: [facility] 12-19-2023 10:07-0500 Body weight 68.6 kg Wyatt Garza MD Work Phone: [facility] 12-19-2023 10:07-0500 Diastolic blood pressure 78 mm[Hg] Wyatt Garza MD Work Phone: [facility] 12-19-2023 10:07-0500 Heart rate 71 /min Wyatt Garza MD Work Phone: [facility] 12-19-2023 10:07-0500 Respiratory rate 16 /min Wyatt Garza MD Work Phone: [facility] 12-19-2023 10:07-0500 SaO2% (BldA) [Mass fraction] 98 % Wyatt Garza MD Work Phone: [facility] 12-19-2023 10:07-0500 Systolic blood pressure 145 mm[Hg] Wyatt Garza MD Work Phone: [facility] 12-16-2022 10:48-0500 Body height 165.1 cm Wyatt Garza MD Work Phone: [facility] 12-16-2022 10:48-0500 Body temperature 97.59 [degF] Wyatt Garza MD Work Phone: [facility] 12-16-2022 10:48-0500 Body weight 69.58 kg Wyatt Garza MD Work Phone: [facility] 12-16-2022 10:48-0500 Diastolic blood pressure 100 mm[Hg] Wyatt Garza MD Work Phone: [facility] 12-16-2022 10:48-0500 Heart rate 94 /min Wyatt Garza MD Work Phone: [facility] 12-16-2022 10:48-0500 Respiratory rate 16 /min Wyatt Garza MD Work Phone: [facility] 12-16-2022 10:48-0500 SaO2% (BldA) [Mass fraction] 95 % Wyatt Garza MD Work Phone: [facility] 12-16-2022 10:48-0500 Systolic blood pressure 139 mm[Hg] Wyatt Garza MD Work Phone: [facility] 06-17-2022 10:45-0400 Body temperature 98.1 [degF] KAVIN Atkins MD Work Phone: [facility] 06-17-2022 10:45-0400 Body weight 66.22 kg KAVIN Atkins MD Work Phone: [facility] 06-17-2022 10:45-0400 Diastolic blood pressure 81 mm[Hg] KAVIN Atkins MD Work Phone: [facility] 06-17-2022 10:45-0400 Heart rate 89 /min KAVIN Atkins MD Work Phone: [facility] 06-17-2022 10:45-0400 Respiratory rate 18 /min KAVIN Atkins MD Work Phone: [facility] 06-17-2022 10:45-0400 SaO2% (BldA) [Mass fraction] 100 % KAVIN Atkins MD Work Phone: [facility] 06-17-2022 10:45-0400 Systolic blood pressure 146 mm[Hg] KAVIN Atkins MD Work Phone: [facility] 04-06-2022 11:34-0400 Blood Pressure Location Sushil Edgar Jr. [facility] 04-06-2022 11:34-0400 Diastolic blood pressure 89 mm[Hg] Sushil Edgar Jr. [facility] 04-06-2022 11:34-0400 Heart rate 72 /min Sushil Edgar Jr. [facility] 04-06-2022 11:34-0400 Respiratory rate 16 /min Sushil Edgar Jr. [facility] 04-06-2022 11:34-0400 Systolic blood pressure 141 mm[Hg] Sushil Edgar Jr. [facility] Encounters Encounter Date Encounter Type Care Provider Facility Start: 01-21-2025 End: 01-21-2025 ambulatory ELBA DE LA CRUZ Facility:[facility] Start: 01-21-2025 End: 01-21-2025 Office outpatient [...] Start: 01-10-2025 End: 01-10-2025 ambulatory ELBA MCKINNEYFior Facility:[facility] Start: 01-10-2025 End: 01-10-2025 Subsequent hospital visit by physician Arrival Time Radiology Work Phone: Radiology [facility] Comment on above: History of head and neck cancer [Z85.89] Start: 08-23-2024 End: 08-23-2024 Bamboo flowsheet Andreina Charles [facility] Work Phone: [facility] Start: 08-23-2024 End: 08-23-2024 Bamboo flowsheet Andreina Charles [facility] Work Phone: [facility] Start: 08-23-2024 End: 08-23-2024 ambulatory [facility] Charles [facility] Comment on above: Sensorineural hearin g loss [...] Not Available Start: 06-29-2024 End: 06-29-2024 ambulatory [facility] Facility:[facility] Start: 06-29-2024 End: 06-29-2024 Office outpatient visit 15 minutes Wyatt Garza MD Work Phone: Hematology/Oncology Comment on above: History of head and neck cancer (Primary Dx); Lung nodules Start: 06-22-2024 End: 06-22-2024 ambulatory [facility] Facility:[facility] Start: 06-22-2024 End: 06-22-2024 Subsequent hospital visit by physician Arrival Time Radiology Work Phone: Radiology [facility] Comment on above: History of head and neck cancer [Z85.89] Start: 06-12-2024 Telephone encounter Halima de leon MD Work Phone: Gastroenterology Start: 05-28-2024 End: 05-28-2024 ambulatory [facility] Facility:[facility] Start: 05-28-2024 End: 05-28-2024 Subsequent hospital visit by physician [facility] Comment on above: Abnormal LFTs [R79.8 9] Start: 05-24-2024 Telephone encounter Halima de leon MD Work Phone: Gastroenterology Start: 05-22-2024 End: 05-22-2024 ambulatory [facility] Facility:[facility] Start: 05-17-2024 Telephone encounter Halima de leon MD Work Phone: Gastroenterology Start: 03-30-2024 End: 03-30-2024 ambulatory [facility] Facility:[facility] Start: 03-30-2024 End: 03-30-2024 Office outpatient visit 25 minutes Wyatt Garza MD Work Phone: Hematology/Oncology Comment on above: History of head and neck cancer (Primary Dx); Lung nodules Start: 03-23-2024 End: 03-23-2024 ambulatory [facility] Facility:[facility] Start: 03-23-2024 End: 03-23-2024 Subsequent hospital [...] Lung nodules [R91.8] Start: 04-12-2023 ambulatory Sushil Edgar Facility :[facility] Start: 03-10-2023 ambulatory LEONA RENDON Facilit y:H1 [...] ty: Start: 07-29-2022 Orders Only Gerald Jiménez [facility] Comment on above: Chronic hepatitis C with hepatic coma (HCC) (Primary Dx) Start: 07-16-2022 ambulatory Bhavya López on [facility] Start: 07-16-2022 Follow-up encounter Bhavya kim [facility] Comment on above: SPP Hepatology [...] Orders Start: 04-15-2022 ambulatory Bhavya López on [facility] Start: 04-15-2022 Follow-up encounter Bhavya kim [facility] Comment on above: SPP Hepatology - Fol low-up (Epclusa - End of Treatment) Start: 04-06-2022 End: 04-07-2022 ambulatory Sushilsonu Edgar Facility:[facility] Start: 04-06-2022 End: 04-06-2022 Patient encounter procedure Sushil Edgar [facility] Start: 03-22-2022 Telephone encounter Halima de leon MD Work Phone: Gastroenterology Comment on above: Results Start: 03-11-2022 Specialty Pharmacy Bhavya paz [facility] Comment on above: SPP Hepatology - Med ication Refill (Epclusa) Start: 02-11-2022 Specialty Pharmacy Bhavya paz [facility] Comment on above: SPP Hepatology [...] Patient encounter procedure Elba De La Cruz Facility:[facility] Procedures Date Procedure [...] RSV Vaccine (1 - 1-dose 75+ series) [facility] Start: 01-11-2028 Diabetes Screening Diabetes Screenin g [facility] Start: 06-22-2027 Diabetes Screening Diabetes Screenin g [facility] Start: 12-16-2026 Diabetes Screening Diabetes Screenin g [facility] Start: 02-26-2026 PROSTATE CANCER SCREENING DISCUSSION PROSTATE CANCER SCREENING DISCUSSION [facility] Start: 01-21-2026 End: 01-21-2026 CBC W Auto Differential panel - Blood COMPLETE BLOOD COUNT AND DIFFERENTIAL Lab Routine History of head and neck cancer Lung nodules Expected: 01/21/2026 (Approximate), Expires: 01/21/2026 [facility] Comment on above: Expected: 01/21/2026 (Approximate), Expires: 01/21/2026 Start: 01-21-2026 End: 01-21-2026 Comprehensive metabolic 2000 panel - Serum or Plasma COMPREHENSIVE METABOLIC PANEL Lab Routine History of head and neck cancer Lung nodules Expected: 01/21/2026 (Approximate), Expires: 01/21/2026 [facility] Comment on above: Expected: 01/21/2026 (Approximate), Expires: 01/21/2026 Start: 01-21-2026 End: 02-20-2026 CT Chest W contrast IV CT CHEST W IVCON Radiology Routine History of head and neck cancer Lung nodules Expected: 01/21/2026 (Approximate), Expires: 02/20/2026 [facility] Comment on above: Expected: 01/21/2026 (Approximate), Expires: 02/20/2026 Start: 01-21-2026 End: 02-20-2026 CT Neck W contrast IV CT NECK SOFT TISSUE W IVCON Radiology Routine History of head and neck cancer Lung nodules Expected: 01/21/2026 (Approximate), Expires: 02/20/2026 [facility] Work Phone: Comment on above: Expected: 01/21/2026 (Approximate), Expires: 02/20/2026 Start: 01-20-2026 End: 01-20-2026 Follow-up encounter 01/20/2026 11:40 AM EDT Visit (SP) Office Hematology/Oncology [address] [place] [address] [place] [address] Wyatt Garza MD [address] [place] [address] [place] [address] 1 YEAR FOLLOW UP AFTER CT SCAN Hematology/Oncology Comment on above: 1 YEAR FOLLOW UP AFT ER CT SCAN Start: 01-13-2026 End: 01-13-2026 Patient encounter procedure 01/13/2026 7:45 AM EDT Appointment Radiology Pet [facility] [address] [facility] [place] [address] CT CHEST AND NECK Radiology Pet CT Comment on above: CT CHEST AND NECK Start: 01-10-2026 Screening for malign ant neoplasm of lung Lung Cancer Screening [facility] Start: 12-15-2025 DIABETES SCREEN DIABETES SCREEN [facility] Start: 07-08-2025 Influenza vaccination Influenz a Vaccine (Season Ended) [facility] Start: 06-22-2025 Screening for malign ant neoplasm of lung Lung Cancer Screening [facility] Start: 05-24-2025 End: 08-23-2025 Hepatitis C virus RNA [Units/volume] (viral load) in Serum or Plasma by PAULA with probe detection HEPATITIS C RNA QUANTIFICATION BY PCR, PLASMA/SERUM Lab Routine Chronic hepatitis C without hepatic coma (HCC) Expected: 05/24/2025 (Approximate), Expires: 08/23/2025 [facility] Work Phone: Comment on above: Expected: 05/24/2025 (Approximate), Expires: 08/23/2025 Start: 03-23-2025 Screening for malign ant neoplasm of lung Lung Cancer Screening [facility] Start: 01-21-2025 End: 01-21-2025 Follow-up encounter Hematology/Oncology Comment on above: [address] up af [address] scan [address] up [address] scan w/labs Start: 01-07-2025 End: 01-07-2025 Follow-up encounter 01/07/2025 8:30 AM EST Visit (SP) Office Hematology/Oncology [address] [place] [address] Wyatt Garza MD [address] [place] [address] 6 month follow up after [address] scan Hematology/Oncology Comment on above: [address] up [address] scan Start: 12-31-2024 End: 12-31-2024 Patient encounter procedure 12/31/2024 8:45 AM EST Appointment Radiology Pet [facility] [address] [place] [address] CT CHEST AND NECK Radiology Pet CT Comment on above: CT CHEST AND NECK Start: 12-30-2024 End: 06-29-2025 CBC W Auto Differential panel - Blood COMPLETE BLOOD COUNT AND DIFFERENTIAL Lab Routine History of head and neck cancer Lung nodules Expected: 12/30/2024 (Approximate), Expires: 06/29/2025 [facility] Comment on above: Expected: 12/30/2024 (Approximate), Expires: 06/29/2025 Start: 12-30-2024 End: 06-29-2025 Comprehensive metabolic 2000 panel - Serum or Plasma COMPREHENSIVE METABOLIC PANEL Lab Routine History of head and neck cancer Lung nodules Expected: 12/30/2024 (Approximate), Expires: 06/29/2025 [facility] Comment on above: Expected: 12/30/2024 (Approximate), Expires: 06/29/2025 Start: 12-30-2024 End: 07-29-2025 CT Chest W contrast IV CT CHEST W IVCON Radiology Routine History of head and neck cancer Lung nodules Expected: 12/30/2024 (Approximate), Expires: 07/29/2025 [facility] Comment on above: Expected: 12/30/2024 (Approximate), Expires: 07/29/2025 Start: 12-30-2024 End: 07-29-2025 CT Neck W contrast IV CT NECK SOFT TISSUE W IVCON Radiology Routine History of head and neck cancer Lung nodules Expected: 12/30/2024 (Approximate), Expires: 07/29/2025 [facility] Work Phone: Comment on above: Expected: 12/30/2024 (Approximate), Expires: 07/29/2025 Start: 12-16-2024 DIABETES SCREEN DIABETES SCREEN [facility] Start: 12-16-2024 Screening for malign ant neoplasm of lung Lung Cancer Screening [facility] Start: 12-13-2024 End: 03-14-2025 [id number] [Mass/volume] in Serum or Plasma ALPHA FETOPROTEIN Lab Routine Fatty liver Expected: 12/13/2024 (Approximate), Expires: 03/14/2025 [facility] Work Phone: Comment on above: Expected: 12/13/2024 (Approximate), Expires: 03/14/2025 Start: 12-13-2024 End: 07-12-2025 US Abdomen RUQ US ABD RIGHT UPPER QUADRANT Radiology Routine Fatty liver Expected: 12/13/2024 (Approximate), Expires: 07/12/2025 [facility] Comment on above: Expected: 12/13/2024 (Approximate), Expires: 07/12/2025 Start: 11-07-2024 Advance Directive Discussion Advance Directive Discussion [facility] Start: 09-13-2024 End: 09-13-2024 Patient encounter procedure 09/13/2024 2:00 PM EST Office Visit SILVIA SHETH [address] [place] [address] SILVIA SHETH Start: 08-23-2024 End: 08-23-2024 Clinical Support NOMTricia SHETH Comment on above: Arrived Start: 07-23-2024 End: 07-23-2024 Patient encounter procedure SILVIA MCCORMICK Comment on above: Arrived Start: 07-10-2024 End: 07-10-2024 Clinical Support 07/10/2024 1:30 PM EDT Clinical Support SILVIA SHETH [address] [facility] [place] [address] Andreina Law, [facility] [address] [place] [address] Arrived SILVIA SHETH Comment on above: Arrived Start: 07-08-2024 Covid-19 Vaccine ( season) Covid-19 Vaccine ( season) [facility] Start: 07-08-2024 Covid-19 Vaccine ( season) Covid-19 Vaccine ( season) [facility] Start: 07-08-2024 Influenza vaccination [facility] Start: 06-30-2024 End: 03-30-2025 CBC W Auto Differential panel - Blood COMPLETE BLOOD COUNT AND DIFFERENTIAL Lab Routine History of head and neck cancer Lung nodules Expected: 06/30/2024 (Approximate), Expires: 03/30/2025 [facility] Comment on above: Expected: 06/30/2024 (Approximate), Expires: 03/30/2025 Start: 06-30-2024 End: 03-30-2025 Comprehensive metabolic 2000 panel - Serum or Plasma COMPREHENSIVE METABOLIC PANEL Lab Routine History of head and neck cancer Lung nodules Expected: 06/30/2024 (Approximate), Expires: 03/30/2025 [facility] Comment on above: Expected: 06/30/2024 (Approximate), Expires: 03/30/2025 Start: 06-30-2024 End: 04-29-2025 CT Chest W contrast IV CT CHEST W IVCON Radiology Routine History of head and neck cancer Lung nodules Expected: 06/30/2024 (Approximate), Expires: 04/29/2025 [facility] Work Phone: Comment on above: Expected: 06/30/2024 (Approximate), Expires: 04/29/2025 Start: 06-29-2024 End: 06-29-2024 Follow-up encounter 06/29/2024 11:15 AM EDT Visit (SP) Office Hematology/Oncology [address] [place] [address] Wyatt Garza MD [address] [place] [address] 3 MONTH FOLLOW UP AFTER CT Hematology/Oncology Comment on above: 3 MONTH FOLLOW UP AF TER CT Start: 06-22-2024 End: 06-22-2024 Patient encounter procedure 06/22/2024 7:45 AM EDT Appointment Radiology Pet CT [address] [facility] [place] [address] CT CHEST W IV Radiology Pet CT Comment on above: CT CHEST W IV Start: 05-28-2024 End: 05-28-2024 Patient encounter procedure 05/28/2024 2:30 PM EDT Appointment Radiology [address] [place] [address] no spl chkf [facility] 05/21 Abnormal LFTs [R79.89] Radiology Comment on above: no spl chkf [facility] 05/21 Abnormal LFTs [R79.89] Start: 05-21-2024 End: 08-20-2024 Hepatitis C virus RNA [Units/volume] (viral load) in Serum or Plasma by PAULA with probe detection HEPATITIS C RNA QUANTIFICATION BY PCR, PLASMA/SERUM Lab Routine Abnormal LFTs Chronic hepatitis C without hepatic coma (HCC) Expected: 05/21/2024 (Approximate), Expires: 08/20/2024 [facility] Comment on above: Expected: 05/21/2024 (Approximate), Expires: 08/20/2024 Start: 05-21-2024 End: 06-16-2025 US Abdomen RUQ US ABD RIGHT UPPER QUADRANT Radiology Routine Abnormal LFTs Chronic hepatitis C without hepatic coma (HCC) Expected: 05/21/2024 (Approximate), Expires: 06/16/2025 [facility] Work Phone: Comment on above: Expected: 05/21/2024 (Approximate), Expires: 06/16/2025 Start: 01-30-2024 End: 01-17-2025 CREATININE BLD CREATININE BLD Lab Routine Localized enlarged lymph nodes History of head and neck cancer Expected: 01/30/2024, Expires: 01/17/2025 [facility] Work Phone: Comment on above: Expected: 01/30/2024 , Expires: 01/17/2025 Start: 01-30-2024 End: 01-17-2025 CT Chest W contrast IV CT CHEST W IVCON Radiology Routine Localized enlarged lymph nodes History of head and neck cancer Expected: 01/30/2024, Expires: 01/17/2025 [facility] Work Phone: Comment on above: Expected: 01/30/2024 , Expires: 01/17/2025 Start: 12-16-2023 End: 12-16-2023 CBC W Auto Differential panel - Blood CBC + DIFF Lab Routine Lung nodules Expected: 12/16/2023 (Approximate), Expires: 12/16/2023 [facility] Work Phone: Comment on above: Expected: 12/16/2023 (Approximate), Expires: 12/16/2023 Start: 12-16-2023 End: 12-16-2023 Comprehensive metabolic 2000 panel - Serum or Plasma COMP METABOLIC PANEL Lab Routine Lung nodules Expected: 12/16/2023 (Approximate), Expires: 12/16/2023 [facility] Work Phone: Comment on above: Expected: 12/16/2023 (Approximate), Expires: 12/16/2023 Start: 12-16-2023 End: 01-15-2024 CT CHEST W IVCON CT CHEST W IVCON Radiology Routine Lung nodules Expected: 12/16/2023 (Approximate), Expires: 01/15/2024 [facility] Work Phone: Comment on above: Expected: 12/16/2023 (Approximate), Expires: 01/15/2024 Start: 12-16-2023 End: 01-15-2024 Ct soft tissue neck w/contrast material CT NECK SOFT TISSUE W IVCON Radiology Routine Lung nodules Expected: 12/16/2023 (Approximate), Expires: 01/15/2024 [facility] Work Phone: Comment on above: Expected: 12/16/2023 (Approximate), Expires: 01/15/2024 Start: 12-15-2023 Influenza vaccination LUNG CANCER SC BORISNING [facility] Start: 11-07-2023 Advance Directive Discussion Advance Directive Discussion [facility] Start: 11-07-2023 Behavioral Health Screening Behavioral Health Screening [facility] Start: 11-07-2023 Depression Assessment Depression Ass essment [facility] Start: 07-08-2023 Covid-19 Vaccine () Covid-19 Vaccine () [facility] Start: 07-08-2023 Influenza vaccination Influenza Vacc ine (#1) [facility] Start: 12-18-2022 End: 07-17-2023 Ct thorax w/o contrast material CT CHEST WO IVCON Radiology Routine Effects of radiation, sequela Head and neck cancer (HCC) Expected: 12/18/2022, Expires: 07/17/2023 [facility] Work Phone: Comment on above: Expected: 12/18/2022 , Expires: 07/17/2023 Start: 12-17-2022 Adult depression screening assessment DEPRESSION SCREENING [facility] Start: 12-16-2022 Influenza vaccination LUNG CANCER SC REENING [facility] Start: 11-07-2022 ADVANCE DIRECTIVE DISCUSSION ADVANCE DIRECTIVE DISCUSSION [facility] Start: 11-07-2022 DEPRESSION ASSESSMENT DEPRESSION ASS ESSMENT [facility] Start: 07-30-2022 End: 09-29-2022 Hepatitis C virus RNA [Units/volume] (viral load) in Serum or Plasma by PAULA with probe detection HCV QUANT RNA BY PCR Lab Routine Chronic hepatitis C with hepatic coma (HCC) Expected: 07/30/2022 (Approximate), Expires: 09/29/2022 [facility] Work Phone: Comment on above: Expected: 07/30/2022 (Approximate), Expires: 09/29/2022 Start: 07-08-2022 Influenza vaccination [facility] Start: 06-09-2022 End: 08-09-2022 Thyrotropin [Units/volume] in Serum or Plasma TSH BLD Lab Routine Effects of radiation, sequela Expected: 06/09/2022, Expires: 08/09/2022 [facility] Work Phone: Comment on above: Expected: 06/09/2022 , Expires: 08/09/2022 Start: 06-09-2022 End: 08-09-2022 Thyroxine (T4) [Mass/volume] in Serum or Plasma T4/THYROXINE BLOOD Lab Routine Effects of radiation, sequela Expected: 06/09/2022, Expires: 08/09/2022 [facility] Work Phone: Comment on above: Expected: 06/09/2022 , Expires: 08/09/2022 Start: 2021 ADVANCE DIRECTIVE DISCUSSION ADVANCE DIRECTIVE DISCUSSION [facility] Start: 2021 PNEUMOVAX AGE 65 AND OVER WITH 5YR LOOKBACK (#1) PNEUMOVAX AGE 65 AND OVER WITH 5YR LOOKBACK (#1) [facility] Start: 07-08-2021 Influenza vaccination INFLUENZA (#1) [facility] Start: 2016 HEPATITIS B (1 of 3 - Risk 3-dose series) HEPATITIS B (1 of 3 - Risk 3-dose series) [facility] Start: 2016 Hepatitis B Vaccine (1 of 3 - Risk 3-dose series) Hepatitis B Vaccine (1 of 3 - Risk 3-dose series) [facility] Start: 2016 RSV Vaccine (1 - 1-d ose 60+ series) RSV Vaccine (1 - 1-dose 60+ series) [facility] Start: 2016 RSV Vaccine (1 - Ris k 60-74 years 1-dose series) RSV Vaccine (1 - Risk 60-74 years 1-dose series) [facility] Start: 2011 PROSTATE CANCER SCREENING DISCUSSION PROSTATE CANCER SCREENING DISCUSSION [facility] Start: 2011 Prostate specific antigen measurement Prostate Cancer Screening Discussion [facility] Start: 2006 SHINGRIX VACCINE (1 of 2) SHINGRIX VACCINE (1 of 2) [facility] Start: 2001 COLOGUARD (FIT-DNA) COLOGUARD (FIT-D NA) [facility] Start: 2001 Colonoscopy COLONOSCOPY [facility] Start: 2001 COLORECTAL CANCER SCREENING COLORECTAL CANCER SCREENING [facility] Start: [address] COLONOGRAPHY [facility] Start: 2001 FECAL OCCULT BLOOD FECAL OCCULT BLOO D [facility] Start: 2001 Prostate specific antigen measurement Prostate Cancer Screening Discussion [facility] Start: 2001 Screening for malign ant neoplasm of colon [facility] Start: 2001 SIGMOIDOSCOPY SIGMOIDOSCOPY [facility] Start: 1991 Lipid panel Lipid Screening [facility] Start: 1991 LIPID SCREEN LIPID SCREEN [facility] Start: 1975 HEPATITIS B (1 of 3 - Risk 3-dose series) HEPATITIS B (1 of 3 - Risk 3-dose series) [facility] Start: 1975 Pneumococcal Vaccine : 50+ (1 of 2 - PCV) Pneumococcal Vaccine: 50+ (1 of 2 - PCV) [facility] Start: 1975 SHINGRIX VACCINE (1 of 2) SHINGRIX VACCINE (1 of 2) [facility] Start: 1975 Urine microalbumin profile [facility] Start: 1974 Anxiety Screening Anxiety Screening [facility] Start: 1974 Depression Screening Depression Scre ening [facility] Start: 1974 HIV SCREENING HIV SCREENING [facility] Start: 1962 Pneumococcal Vaccine : 65+ (1 of 2 - PCV) Pneumococcal Vaccine: 65+ (1 of 2 - PCV) [facility] Start: 1962 PNEUMOCOCCAL: 65+ (1 - PCV) PNEUMOCOCCAL: 65+ (1 - PCV) [facility] Start: 1961 COVID-19 VACCINE (#1) COVID-19 VACCI NE (#1) [facility] Start: 1961 COVID-19 VACCINE (1) COVID-19 VACCIN E (1) [facility] Start: 05-11-1957 COVID-19 VACCINE (#1) COVID-19 VACCI NE (#1) [facility] Start: 1956 ABDOMINAL AORTIC ANEURYSM SCREENING ABDOMINAL AORTIC ANEURYSM SCREENING [facility] Start: 1956 Abdominal aortic aneurysm screening Abdominal Aortic Aneurysm Screening [facility] [id number] [Mass/volume] in Serum or Plasma ALPHA FETOPROTEIN Lab Routine Fatty liver 01/10/2025 2:10 PM EST [facility] Work Phone: CT Chest W contrast IV CT CHEST W IVCON Radiology Routine History of head and neck cancer Lung nodules 01/10/2025 3:05 PM EST [facility] Work Phone: End: 01-25-2023 HEPATIC FUNCTION PNL HEPATIC FUNCTION PNL Lab Routine Hepatitis C antibody positive in blood Every 3 weeks for 2 Occurrences starting 01/26/2022 until 01/25/2023 [facility] Work Phone: Comment on above: Every 3 weeks for 2 Occurrences starting 01/26/2022 until 01/25/2023 End: 01-25-2023 Hepatitis C virus RNA [Units/volume] (viral load) in Serum or Plasma by PAULA with probe detection HCV QUANT RNA BY PCR Lab Routine Hepatitis C antibody positive in blood Every 3 weeks for 2 Occurrences starting 01/26/2022 until 01/25/2023 [facility] Work Phone: Comment on above: Every 3 weeks for 2 Occurrences starting 01/26/2022 until 01/25/2023 Liver ultrasound attenuation by transient elastography DDI VIBRATION CONTROLLED TRANSIENT ELASTOGRAPHY (VCTE) Endoscopy Routine Fatty liver Ordered: 06/18/2024 [facility] Comment on above: Ordered: 06/18/2024 Thyrotropin [Units/volume] in Serum or Plasma TSH BLD Lab Routine Effects of radiation, sequela 06/17/2022 10:58 AM EDT [facility] Work Phone: Thyroxine (T4) [Mass/volume] in Serum or Plasma T4/THYROXINE BLOOD Lab Routine Effects of radiation, sequela 06/17/2022 10:58 AM EDT [facility] Work Phone: [facility] [facility] [place] [place] [facility] Immunizations Immunization Date Immunization Notes Care Provider Meena gilmore NEGATED: Highlighted row has not occurred!02-19-2021 influenza virus vaccine, unspecified formulation Sushil Edgar Jr. [facility] Payers Date Payer Category Payer Medicare (Managed Care) 1.2. [id number] 2022 Unknown [id number] 2022 Private Health Insurance [id number] 2022 Medicare [id number] 2022 Medicare [id number] 2021 Medicaid MEDICAID [facility] MEDICAID [id number] 2021-Present [phone] [address] [place] [id number] Medicaid [id number] 2021 Medicaid [id number] 2021 Medicaid [id number] 2018 Private Health Insurance [id number] 2018 Self-pay 1959 Unknown [id number] 1956 Unknown [id number] 93 1956 Unknown [id number] 93 1956 Unknown [id number] [id number] 93 1956 Unknown [id number] 2.16.840.1.392286.3.579.2.5 93 1956 Unknown [id number] 2.16.840.1.157141.3.579.2.5 93 1956 Unknown [id number] 2.16.840.1.513786.3.579.2.7 27 1956 Unknown [id number] [id number] 27 1956 Unknown [id number] [id number] 259 1956 Unknown [id number] [id number] 259 1956 Unknown [id number] 259 Unknown [id number] 31 Social History Date Type Detail Facility Start: 03-04-1973 End: 06-17-2022 Tobacco smoking status NHIS Smokes tobacco daily [facility] Start: 11-07-1971 End: 03-04-2018 History of tobacco use Cigarette Smoker [facility] Start: 10-13-2020 End: 12-19-2023 Cigarettes smoked current (pack per day) - Reported 1 [facility] Start: 10-13-2020 End: 06-17-2022 Tobacco use and exposure User of smokeless tobacco [facility] Start: 12-17-2021 End: 06-29-2024 Alcohol intake Current drinker of alcohol (finding) [facility] Start: 10-13-2020 History SDOH Alcohol Comment socially [facility] Start: 01-09-2018 End: 06-17-2022 Tobacco Comment started 1971 [facility] Start: 1955 Sex Assigned At Not on file [facility] Start: 01-10-2022 End: 01-20-2022 Exposure to SARS-CoV-2 (event) Unable to assess [facility] Start: 04-06-2022 Tobacco smoking status Light t obacco smoker (finding) [facility] Start: 12-19-2023 End: 06-29-2024 Sex Assigned At Male [facility] Start: 06-07-2022 End: 06-17-2022 Exposure to SARS-CoV-2 (event) Not sure [facility] Adult Depression Screening Assessment 0 [facility] Start: 03-28-2023 End: 07-23-2024 Tobacco use and exposure Smokeless tobacco non-user [facility] Start: 03-28-2023 Tobacco Comment Smokes 6-10 cigarettes/day [facility] Start: 03-28-2023 Alcohol Comment Caffeine >4 cups/day [facility] Start: 07-20-2023 Alcoholic beverage intake Ex-drinker (finding) [facility] Clinical Notes 12-16-2021 to 01-21-2025 Wyatt Garza MD - 01/21/2025 11:40 AM EDTPatient InstructionsTelephone Encounter - Ivette Lala - 01/18/2025 12:31 PM EDTTelephone Encounter - Ivette Lala - 01/18/2025 12:31 PM EDT Note Date & Type Note Facility 01-21-2025 History of Present illness Narrative Images from the original note were not included. NAME: Carson Morse CLINIC NO.: [id number] DATE OF SERVICE: January 21, 2025 (Mirian) [...] organ systems. Used to work on the [employer] for [employer]. Updated Visit, June 19, 2020: Thom is [...] which included preparing to see the patient, bjvd-gp-kcwz patient care, completing clinical documentation, performing a medically appropriate examination, counseling and educating the patient/family/caregiver, ordering medications, tests, or procedures, independently interpreting results (not separately reported), communicating results to the patient/family/caregiver, and care coordination (not separately reported). Wyatt Garza MD, CPE Hematology and Oncology Services Provided at: [place], [place] CC: Elba De La Cruz MD [address] [facility] [address] Halima Nixon MD documented in this encounter [facility] 01-21-2025 Note HNO ID: [id number] Author: WYATT GARZA MD Service: ? Author Type: Physician Type: Progress Notes Filed: 01/21/2025 11:32 Note Text: NAME: Carson Morse [facility] NO.: [id number] DATE OF SERVICE: January 21, 2025 (Mirian) [...] 21, 2025: Recovered (more content not included)... [facility] 01-21-2025 Instructions Wyatt Garza MD - 01/21/2025 11:[address] Neck Chest in 12 months Labs same day - include CBC, CMP RTC 1 week after with me to review documented in this encounter [facility] 01-18-2025 Telephone encounter Note Unable to lvm and no mychart [facility] 01-18-2025 Miscellaneous Notes Unable to lvm and no mychart Images from the original note were not included. Pt notified of results and recommendations and verbalized understanding. Schedulers, please call pt to schedule US, Fibroscan and OV. Orders are already placed. Thank you, NOLAN Meeks Noma, MD [facility] Nurse Pool Normal AFP Patient is overdue for US He needs to schedule Halima Nixon MD documented in this encounter [facility] 01-18-2025 Telephone encounter Note Images from the original note were not included. Pt notified of results and recommendations and verbalized understanding. Schedulers, please call pt to schedule US, Fibroscan and OV. Orders are already placed. Thank you, NOLAN Meeks Noma, MD [facility] Nurse Pool Normal AFP Patient is overdue for US He needs to schedule Halima Nixon MD [facility] Work Phone: 01-10-2025 History of Present [...] PATIENT PRESENTS WITH AN IMPLANTABLE OR ATTACHED LAND CHECKER: No RADIOLOGY DEPARTMENT: CT; Exam(s) Completed: Chest and Neck PERIPHERAL IV DATA: Site assessment: Clean,Dry and Intact, Site disposition Discontinued SIGNED BY: RT Terry(Porter) January 10, 2025 2:51 PM documented in this encounter [facility] 01-10-2025 Note HNO ID: [id number] Author: SONJA MELGAR RT(R) Service: ? Author [...] PATIENT PRESENTS WITH AN IMPLANTABLE OR ATTACHED LAND CHECKER: No RADIOLOGY DEPARTMENT: CT; Exam(s) Completed: Chest and Neck PERIPHERAL IV DATA: Site assessment: Clean,Dry and Intact, Site disposition Discontinued SIGNED BY: RT Terry(R) January 10, 2025 2:51 PM [facility] 01-10-2025 Note HNO ID: [id number] Author: ROXANN MCGREGOR RN Service: ? Author [...] DATE: January 10, 2025 TIME: 2:44 PM [facility] 08-23-2024 History of Present illness Narrative Hearing Aid Fitting: Pt fit with [facility] [address] aids coupled to his ears [...] quicker. Taught pt how to use his glassware verifier, how to use the rocker to change volume, and how to change domes and filters. Pt has flip phone so he cannot use the luis manuel. Pt did not want to wear the aids home so aids were put in the case. Made follow up appointment and completed [facility] paperwork documented in this encounter [facility] 07-23-2024 History of Present illness Narrative Subjective Patient ID: Carson Morse is a 68 y.o. 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 Benign prostatic hyperplasia without urinary obstruction 06/21/2023 Current smoker 06/21/2023 Hoarse voice quality 06/21/2023 Lung nodules 12/18/2020 Malignant neoplasm of head, face and neck ([facility]/HCC) 12/18/2020 Mucositis due to radiation therapy 02/27/2018 Myelosuppression 03/24/2018 Severe protein-calorie malnutrition ([facility]/HCC) 02/27/2018 Closed right maxillary fracture ([facility]) 07/20/2023 Resolved Ambulatory Problems Diagnosis Date Noted History of tongue cancer 06/21/2023 Nocturia 06/21/2023 Past Medical History: Diagnosis Date COVID-19 10/2021 SCC (squamous cell carcinoma) 12/27/2017 Past Surgical History: Procedure Laterality Date LA LARYNGOSCOPY,DIRECT,DX,OP MICROSCOP 12/27/2017 No Known Allergies Current [...] all orders for this visit: Tongue cancer ([facility]) CADEN today documented in this encounter [facility] 07-10-2024 History of Present illness Narrative [...] 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 He will owe $250 to [facility]. Explained HCS process to pt and made HAF in 6 weeks documented in this encounter [facility] 06-29-2024 Instructions Svetlana Call - 06/29/2024 12:[address] Neck Chest in 12/2024 Labs same day - include CBC, CMP RTC 1 week after with me to review Pursue annual scans and visits after December 2024 documented in this encounter [facility] 06-29-2024 History of Present illness Narrative Images from the original note were not included. NAME: LitoCarson [facility] NO.: [id number] DATE OF SERVICE: June 29, 2024 (marisatx) Some elements in this clinic note that [...] organ systems. 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 Wyatt Garza MD, CPE Hematology and Oncology Services Provided at: [place], [place] Scribe Attestation: This note was scribed [...] CC: Elba De La Cruz MD [address] [facility] [address] Halima Nixon MD documented in this encounter [facility] 06-29-2024 Note HNO ID: [id number] Author: WYATT GARZA MD Service: ? Author Type: Physician Type: Progress Notes Filed: 06/30/2024 21:51 Note Text: NAME: Carson Morse CLINIC NO.: [id number] DATE OF SERVICE: June 29, 2024 (Mirian) [...] which suggests they were inflammatory. Scan shows CADNE. Will repeat his scan in 6 months, [...] is getting o (more content not included)... [facility] 06-22-2024 History of Present illness Narrative Radiology [...] PATIENT PRESENTS WITH AN IMPLANTABLE OR ATTACHED LAND CHECKER: No RADIOLOGY DEPARTMENT: CT; Exam(s) Completed: Chest PERIPHERAL IV DATA: Site assessment: Clean,Dry and Intact, Site disposition Discontinued SIGNED BY: ANNABELLE Stewart) June 22, 2024 8:54 AM documented in this encounter [facility] 06-22-2024 Note HNO ID: [id number] Author: SONJA MELGAR RT (R) Service: ? [...] PATIENT PRESENTS WITH AN IMPLANTABLE OR ATTACHED LAND CHECKER: No RADIOLOGY DEPARTMENT: CT; Exam(s) Completed: Chest PERIPHERAL IV DATA: Site assessment: Clean,Dry and Intact, Site disposition Discontinued SIGNED BY: ANNABELLE Stewart) June 22, 2024 8:54 AM [facility] 06-22-2024 Note HNO ID: [id number] Author: ROXANN MCGREGOR RN Service: ? Author [...] DATE: June 22, 2024 TIME: 8:31 AM [facility] 06-12-2024 Telephone encounter Note ----- Message from [...] Please review and sign Emily Hi RN [facility] 06-12-2024 Miscellaneous Notes ----- Message from [...] Emily Hi RN documented in this encounter [facility] 05-28-2024 History of Present illness Narrative [...] PATIENT PRESENTS WITH AN IMPLANTABLE OR ATTACHED LAND CHECKER: No RADIOLOGY DEPARTMENT: Ultrasound PERIPHERAL IV DATA: Not applicable SIGNED BY: Melba Ag RDMS May 28, 2024 1:49 PM documented in this encounter [facility] 05-28-2024 Note HNO ID: [id number] Author: MELBA AG RDMS Service: Radiology Author Type: Icu Nurse Type: Progress Notes Filed: 05/28/2024 13:57 Note [...] PATIENT PRESENTS WITH AN IMPLANTABLE OR ATTACHED LAND CHECKER: No RADIOLOGY DEPARTMENT: Ultrasound PERIPHERAL IV DATA: Not applicable SIGNED BY: Melba Ag RDMS May 28, 2024 1:49 PM [facility] 05-24-2024 Telephone encounter Note ----- Message from Halima Nixon MD sent at 05/23/2024 2:56 PM EDT ----- Negative hep C RNA consistent with sustained response Repeat in one year Reviewed test results Pt read result message from Dr. Nixon via [employer]. Called and spoke to patient regarding test results and recommendation from Dr. Nixon Pt [facility] is sched for [facility] [place] Demonstrated understanding Dr. Lund, Orders submitted for repeat Hep C RNA Please review and sign Emily Hi RN [facility] 05-24-2024 Miscellaneous Notes ----- Message from Halima Nixon MD sent at 05/23/2024 2:56 PM EDT ----- Negative hep C RNA consistent with sustained response Repeat in one year Reviewed test results Pt read result message from Dr. Nixon via [employer]. Called and spoke to patient regarding test results and recommendation from Dr. Nixon Pt state [facility] is sched for [facility] [place] Demonstrated understanding Dr. Lund, Orders submitted for repeat Hep C RNA Please review and sign Emily Hi RN documented in this encounter [facility] 05-21-2024 Telephone encounter Note Called and updated pt on scheduling US Phone number provided for scheduling Also instructed to complete lab draw at [facility] facility Pt demonstrated understanding Emily Armstrong RN [facility] 05-21-2024 Miscellaneous Notes Called and updated [...] Emily Hi RN documented in this encounter [facility] 05-17-2024 Telephone encounter Note ----- Message from Halima Nixon MD sent at 05/17/2024 1:24 PM EDT ----- This patient needs RUQ US and HCV RNA ND Dr. Nixon, Please review and sign orders, Emily Hi RN [facility] 03-30-2024 Instructions Svetlana Rdz - 03/30/2024 2:[address] Chest with labs in 3 months RTC 1 week after to review documented in this encounter [facility] 03-30-2024 History of Present illness Narrative Images from the original note were not included. NAME: Carson Morse CLINIC NO.: [id number] DATE OF SERVICE: March 30, 2024 (marisatx) Some elements in this clinic note that [...] organ systems. 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 Wyatt Garza MD, CPE Hematology and Oncology Services Provided at: [place], [place] Scribe Attestation: This note was scribed [...] CC: Elba De La Cruz MD [address] [facility] [address] Halima Nixon MD documented in this encounter [facility] 03-30-2024 Note HNO ID: [id number] Author: WYATT GARZA MD Service: ? Author Type: Physician Type: Progress Notes Filed: 04/01/2024 09:31 Note Text: NAME: Carson Morse CLINIC NO.: [id number] DATE OF SERVICE: March 30, 2024 (Mirian) [...] going to tr (more content not included)... [facility] 03-23-2024 History of Present illness Narrative RADIOLOGY [...] PATIENT PRESENTS WITH AN IMPLANTABLE OR ATTACHED LAND CHECKER: No CREATININE: Creatinine Date Value Ref Range [...] contrast PATIENT DISCHARGED TO: Ambulatory patient, left [place] department area. A Diagnostic radioactive procedure has taken place, with no further precautions necessary other than routine body substance precautions. More information regarding radiation safety can be found using this link: [email or web address] [email or web address]-%20Diagnostic%20N uclear%20Medicine%20Procedures.p df SIGNATURE: ANNABELLE Stewart) PATIENT NAME: Carson Morse DATE: March 23, 2024 TIME: 9:22 AM PAGER/CONTACT #: documented in this encounter [facility] 03-23-2024 Note HNO ID: [id number] Author: SONJA MELGAR RT(R) Service: ? Author [...] PATIENT PRESENTS WITH AN IMPLANTABLE OR ATTACHED LAND CHECKER: No CREATININE: Creatinine Date Value Ref Range [...] contrast PATIENT DISCHARGED TO: Ambulatory patient, left [place] department area. A Diagnostic radioactive procedure has taken place, with no further precautions necessary other than routine body substance precautions. More information regarding radiation safety can be found using this link: [email or web address]%[email or web address] 0Protection%20-% 20Diagnostic%20Nuclear%20Medicin e%20Procedures.pdf SIGNATURE: Sonja Melgar RT(R) PATIENT NAME: Carson Morse DATE: March 23, 2024 TIME: 9:22 AM PAGER/CONTACT #: [facility] 12-19-2023 Miscellaneous Notes Pt informed of Frankie's message and denies any questions, needs or concerns at this time.(Pt had appt today with Frankie and discussed) Appointments verified. Zeny Tom RN ----- Message from Wyatt Garza MD sent at 12/17/2023 8:59 AM EST ----- Scans are stable - I will discuss at his appointment. documented in this encounter [facility] 12-19-2023 Instructions Svetlana Rdz - 12/19/2023 10:[address] Chest in 6 weeks RTC 1 week after to review If CT Chest clear then pursue routine annual visits documented in this encounter [facility] 12-19-2023 History of Present illness Narrative Images from the original note were not included. NAME: Carson Morse CLINIC NO.: [id number] DATE OF SERVICE: December 19, 2023 (rosa [...] organ systems. 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 Updated Visit, June 19, 2020: [...] which included preparing to see the patient, ekvt-ze-qvmr patient care, completing clinical documentation, performing a medically appropriate examination, counseling and educating the patient/family/caregiver, ordering medications, tests, or procedures, independently interpreting results (not separately reported), communicating results to the patient/family/caregiver, and care coordination (not separately reported). Wyatt Garza MD, CPE Hematology and Oncology Services Provided at: [place], [place] Scribe Attestation: This note was scribed [...] CC: Elba De La Cruz MD [address] [facility] [address] Halima Nixon MD documented in this encounter [facility] 12-16-2023 History of Present illness Narrative [...] 2023 10:54 AM documented in this encounter [facility] 12-28-2022 Note PROCEDURE: XR ANKLE RT [...] by: DARRELL SPRING Date: 2022-12-28 07:42 [facility] 12-16-2022 Instructions Wyatt Garza MD - 12/16/2022 11:[address] Neck Chest in 12 months labs same day Labs in 1 year with scans include CBC, CMP RTC in 12 months with me to review Patient to continue follow up with Dr. Leon RAWLS documented in this encounter [facility] 12-16-2022 History of Present illness Narrative Images from the original note were not included. NAME: Carson Morse CLINIC NO.: [id number] DATE OF SERVICE: December 17, 2021 Some [...] organ systems. 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 Wyatt Garza MD, [place], [place] CC: Wyatt Garza MD [address] [place] [address] [facility] [address] Elba De La Cruz MD [address] [facility] [address] Halima Nixon MD documented in this encounter [facility] 12-15-2022 History of Present illness Narrative [...] 2022 9:40 AM documented in this encounter [facility] 07-16-2022 History of Present illness Narrative Medication(s): Epclusa Total duration of treatment: 12 weeks Estimated Start Date: 01/23 Estimated Completion Date: 04/17 Estimated SVR 07/10/22 Due for SVR12 lab at this time. Bhavya Cohen RPh Clinical Pharmacist, Hepatology and Biologics [facility] P: ; F: Pool: P CC SPEC GROUP 2 ([id number]) documented in this encounter [facility] 06-17-2022 History of Present illness Narrative [...] MD cc: Elba De La Cruz MD [address] [place] [id number] [address] Fiore documented in this encounter [facility] 06-09-2022 Miscellaneous Notes Please sign pended labs for upcoming visit. Tory Self RN documented in this encounter [facility] 04-15-2022 History of Present illness Narrative [facility] Visit Assessment - Hepatology: [...] provider regarding future tests. Ruddy Gaffney CPhT [facility] documented in this encounter [facility] 04-06-2022 Hospital Discharge instructions Patient Education [...] Follow these instructions at home: Medicines Take mbjr-xts-zcqrmob and prescription medicines only as told by [...] or the blood stops without treatment. Take hjwl-lmo-aczrsou and prescription medicines only as told by your health care provider. Drink enough fluid to keep your urine clear or pale yellow. This information is not intended to replace advice given to you by your health care provider. Make sure you discuss any questions you have with your health care provider. Document Released: 10/24/2006 Document Revised: 03/19/2020 Document Reviewed: 11/26/2017 [employer] Patient Education 2019 [employer]. Follow Up Care 08/27/2021 11:36:33 With:Herve Flores MD, Sushil De Leon, URO Address: [facility] [address] [place] [address]- When:04/06/2023 Comments:w/psa [facility] 03-22-2022 Miscellaneous Notes Pt aware of results and to get blood work repeated in 3 months. ----- Message from Halima Nixon MD sent at 03/19/2022 3:58 PM EDT ----- Liver enzymes are stable Didn't improve that much The HCV RNA Is negative consistent with viral response Repeat LFTs and HCV RNA in 3 months documented in this encounter [facility] 03-11-2022 History of Present illness Narrative [...] Will proceed with refill with no changes. [facility] Visit Assessment - Hepatology: Is pre-assessment?: No Is initial or refill assessment?: Yes Assessment to use: Refill Non-Clinical Assessment: Patient confirmed: Yes Med/dose confirmed: Yes Supplies needed: N/A Missed doses: No Estimated days supply on hand: 10 Next cycle/dose due: 03/12/2022 Copay amount: 0 Payment confirmed: Yes Address confirmed: Yes Delivery method: Fed[employer] Delivery address: [address] [place] [id number] Delivery date: 03/15/2022 Patient has questions: No [...] if on ribavirin: N/A Ruddy Gaffney CPhT Suit Maker, Inflammatory & Neurology [facility] documented in this encounter [facility] 02-11-2022 History of Present illness Narrative [facility] Refill Assessment Medication(s): Epclusa (2 of 3) Total duration of treatment: 12 weeks Estimated Start Date: 01/23 Estimated Completion Date: 04/17 Estimated SVR 07/10/22 Labs have been ordered but not yet collected. Goal remains to complete full treatment. Unable to assess compliance although patient does not report missed doses. Bhavya Cohen RPh Clinical Pharmacist, Hepatology and Biologics [facility] P: ; F: Pool: P CC SPEC GROUP 2 ([id number]) Therapy continues to be appropriate for disease, patient response, and medical condition. Verification of therapeutic benefit and effectiveness with current therapy. Adverse events, barriers in adherence, and side effects assessed and addressed. Will proceed with refill with no changes. [facility] Visit Assessment - Hepatology: Is pre-assessment?: No Is initial or refill assessment?: Yes Assessment to use: Refill Non-Clinical Assessment: Patient confirmed: Yes Med/dose confirmed: Yes Supplies needed: N/A Missed doses: No Estimated days supply on hand: 8 Next cycle/dose due: 02/12/2022 Copay amount: 0 Payment confirmed: Yes Address confirmed: Yes Delivery method: FedEx Delivery address: [address] [place] [id number] Delivery date: 02/15/2022 Patient has questions: No Refill Assessment: Concurrent med therapy screening: Yes Adverse reactions and mitigation: Yes Hepatitis C RNA level at 12 weeks after end of therapy with additional testing as clinically indicated: Yes Hepatic function panel, eGFR: Yes CBC after 2 weeks if on ribavirin: N/A Ruddy Gaffney documented in this encounter [facility] 01-28-2022 Miscellaneous Notes Spoke with pt. [...] encounter. Bhavya Hi documented in this encounter [facility] 12-16-2021 History of Present illness Narrative [...] 2021 8:33 AM documented in this encounter [facility] Evaluation + Plan note Future Appointments Appointment Date:04/12/2023 08:00:00 AM Scheduled Provider:Sushil Edgar Jr., MD Location:[facility] Appointment Type:URO Office Visit Diagnostic Tests PendingPSA Total 04/06/22 [facility] Evaluation note Diagnosis Hepatitis C antibody positive in blood- Primary [facility] Diagnosis Chronic hepatitis C without hepatic coma (HCC)- Primary Chronic hepatitis C without mention of hepatic coma [facility] Diagnosis Effects of radiation, sequela- Primary [facility] Diagnosis Effects of radiation, sequela- Primary Head and neck cancer (HCC) Malignant neoplasm of head, face, and neck [facility]* Diagnosis Chronic hepatitis C with hepatic coma (HCC)- Primary Chronic hepatitis C with hepatic coma documented in this encounter [facility] note* Diagnosis Malignant neoplasm of head, 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, face, and neck Lung nodules Other nonspecific abnormal finding of lung field Disorder of thyroid Unspecified disorder of thyroid [facility] Diagnosis Localized enlarged lymph nodes- Primary Enlargement of lymph nodes Severe protein-calorie malnutrition (HCC) Other severe protein-calorie malnutrition Malignant neoplasm of head, 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, face, and neck History of head and neck cancer [facility] Diagnosis History of head and neck cancer- Primary Lung nodules Other nonspecific abnormal finding of lung field [facility] Diagnosis Chronic hepatitis C without hepatic coma (HCC)- Primary Chronic hepatitis C without mention of hepatic coma Abnormal LFTs Other abnormal blood chemistry [facility] Diagnosis Chronic hepatitis C without hepatic coma (HCC)- Primary Chronic hepatitis C without mention of hepatic coma [facility] Diagnosis Abnormal LFTs Other abnormal blood chemistry Chronic hepatitis C without hepatic coma (HCC) Chronic hepatitis C without mention of hepatic coma [facility] Diagnosis Fatty liver- Primary Other chronic nonalcoholic liver disease [facility]* Diagnosis History of head and neck cancer- Primary Lung nodules Other nonspecific abnormal finding of lung field [facility] Diagnosis History of head and neck cancer Lung nodules Other nonspecific abnormal finding of lung field [facility] Diagnosis Localized enlarged lymph nodes Enlargement of lymph nodes History of head and neck cancer [facility] Diagnosis Lung nodules Other nonspecific abnormal finding of lung field [facility] Diagnosis Malignant neoplasm of head, 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, face, and neck Lung nodules Other nonspecific abnormal finding of lung field Disorder of thyroid Unspecified disorder of thyroid [facility] Diagnosis Sensorineural hearing loss (SNHL) of both ears- Primary [facility] Diagnosis 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, unspecified site documented [facility] encounter [facility]* Diagnosis Sensorineural hearing loss (SNHL) of both ears- Primary [facility]* Diagnosis History of head and neck cancer Lung nodules Other nonspecific abnormal finding of lung field Fatty liver Other chronic nonalcoholic liver disease [facility] Diagnosis History of head and neck cancer- Primary Lung nodules Other nonspecific abnormal finding of lung field [facility] Narrative No data available for this section [facility] [employer] reason for referral (narrative)* Diagnostic Procedure Only (Routine) - Authorized Specialty Diagnoses / Procedures Referred By Contac t Referred To Contact US IMAGING Diagnoses Abnormal LFTs Chronic hepatitis C without hepatic coma (HCC) Procedures US ABD RIGHT UPPER QUADRANT US ABDOMINAL [place] [address] [facility] [place] [address] Us Imaging [facility] Referral ID Status Reason Start Date Expiration Date Visits Requested Visits Authorized [id number] Authorized Auto-Generat ed Referral 05/21/2024 06/16/2025 1 1 [facility] for referral (narrative)* Diagnostic Procedure Only (Routine) - Closed Specialty Diagnoses / Procedures Referred By Shaggy plummer Referred To Contact US IMAGING Diagnoses Abnormal LFTs Chronic hepatitis C without hepatic coma (HCC) Procedures US ABD RIGHT UPPER QUADRANT US ABDOMINAL REAL [place] W/[place] [address] [facility] [place] [address] Us Imaging [facility] Referral ID Status Reason Start Date Expiration Date V isits Requested Visits Authorized [id number] Closed Auto-Generate d Referral 05/21/2024 06/16/2025 1 1 [facility] for referral (narrative)* Outpatient Procedure (Routine) - New Request Specialty Diagnoses / Procedures Referred By Shaggy t Referred To Contact [facility] Diagnoses Fatty liver Procedures DDI VIBRATION CONTROLLED TRANSIENT ELASTOGRAPHY (VCTE) LIVER ELASTOGRAPHY W/O IMAG W/I&[place] [address] [place] [address] [facility] [address] [place] [address] Referral ID Status Reason Start Date Expiration Date Visits Requested Visits Authorized [id number] New Request Auto-Generat ed Referral 06/18/2024 06/12/2025 1 1 * Diagnostic Procedure Only (Routine) - New Request Specialty Diagnoses / Procedures Referred By Contac t Referred To Contact US IMAGING Diagnoses Fatty liver Procedures US ABD RIGHT UPPER QUADRANT US ABDOMINAL REAL [place] W/[place] [address] [place] [address] [place] [address] Referral ID Status Reason Start Date Expiration Date Visits Requested Visits Authorized [id number] New Request Auto-Generat ed Referral 12/13/2024 07/12/2025 1 1 [facility] Summary Purpose Family History No Family [...] COMPUTED TOMOGRAPHY THORAX W/CONTRAST Wyatt Garza MD [address] [place] [address] [place] [address] [place] [address] Referral ID Status Reason Start Date Expiration Date V isits Requested Visits Authorized [id number] Closed Auto-Generate d Referral 12/08/2022 01/16/2023 1 1 Specialty Diagnoses / Procedures Referred By Contac t Referred To Contact CT IMAGING Diagnoses Malignant neoplasm of head, face and neck (HCC) Lung nodules Procedures CT NECK SOFT TISSUE W IVCON CT SOFT TISSUE NECK W/CONTRAST MATERIAL Wyatt Garza MD [address] [place] [address] [place] [address] Referral ID Status Reason Start Date Expiration Date V isits Requested Visits Authorized [id number] Closed Auto-Generate d Referral 12/08/2022 01/16/2023 1 1 Specialty Diagnoses / Procedures Referred By Contac t Referred To Contact CT IMAGING Diagnoses History of head and neck cancer Lung nodules Procedures CT CHEST W IVCON DIAGNOSTIC COMPUTED TOMOGRAPHY THORAX W/CONTRAST Wyatt Garza MD [address] [facility] [place] [address] [place] [address] Referral ID Status Reason Start Date Expiration Date Visits Requested Visits Authorized [id number] Authorized Auto-Generat ed Referral 06/30/2024 04/29/2025 1 1 Specialty Diagnoses / Procedures Referred By Contac t Referred To Contact CT IMAGING Diagnoses Localized enlarged lymph nodes History of head and neck cancer Procedures CT CHEST W IVCON DIAGNOSTIC COMPUTED TOMOGRAPHY THORAX W/CONTRAST Wyatt Garza MD [address] [place] [address] [place] [address] [place] [address] Referral ID Status Reason Start Date Expiration Date Visits Requested Visits Authorized [id number] Authorized Auto-Generat ed Referral 12/19/2023 01/17/2025 1 1 Specialty Diagnoses / Procedures Referred By Contac t Referred To Contact CT IMAGING Diagnoses Lung nodules Procedures CT NECK SOFT TISSUE W IVCON CT SOFT TISSUE NECK W/CONTRAST MATERIAL Wyatt Garza MD [address] [facility] [place] [address] Ct Imaging Referral ID Status Reason Start Date Expiration Date Visits Requested Visits Authorized [id number] Authorized Auto-Generat ed Referral 12/16/2023 01/15/2024 1 1 Specialty Diagnoses / Procedures Referred By Contac t Referred To Contact CT IMAGING Diagnoses Lung nodules Procedures CT CHEST W IVCON DIAGNOSTIC COMPUTED TOMOGRAPHY THORAX W/CONTRAST Wyatt Garza MD [address] [place] [address] Ct Imaging Referral ID Status Reason Start Date Expiration Date Visits Requested Visits Authorized [id number] Authorized Auto-Generat ed Referral 12/16/2023 01/15/2024 1 1 Specialty Diagnoses / Procedures Referred By Shaggy plummer Referred To Contact CT IMAGING Diagnoses Effects of radiation, sequela Head and neck cancer (HCC) Procedures CT CHEST WO IVCON DIAGNOSTIC COMPUTED TOMOGRAPHY THORAX W/O CNTRST Marleni Atkins MD [address] [place] [address] [place] [address] Ct Imaging Referral ID Status Reason Start Date Expiration Date Visits Requested Visits Authorized [id number] Pending Review Auto-Generat ed Referral 12/18/2022 07/17/2023 1 1 Additional Source Comments (unrecognized sect ion and content) No Status Records FoundNo Status Records FoundNo Status Records FoundNo Status Records FoundNo Status Records Found INFORMATION SOURCE (unrecogn ized section and content) DATE CREATED AUTHOR 03/20/2019 [facility] DATE CREATED AUTHOR AUTHOR'S ORGANIZ ATION 03/07/2023 [facility] DATE CREATED AUTHOR AUTHOR'S ORGANIZ ATION 03/17/2023 [facility] DATE CREATED AUTHOR AUTHOR'S ORGANIZ ATION 08/25/2024 [facility] DATE CREATED AUTHOR AUTHOR'S ORGANIZ ATION 02/02/2025 [facility] Source Comments (unrecognize d section and content) In the event this informatio n is protected by the Federal Confidentiality of Alcohol and Drug Abuse Patient Records regulations: The Federal rules restrict any use of the information to criminally investigate or prosecute any alcohol or drug abuse patient.[facility] the event this information is protected by the Federal Confidentiality of Alcohol and Drug Abuse Patient Records regulations: The Federal rules restrict any use of the information to criminally investigate or prosecute any alcohol or drug abuse patient.[facility] the event this information is protected by the Federal Confidentiality of Alcohol and Drug Abuse Patient Records regulations: The Federal rules restrict any use of the information to criminally investigate or prosecute any alcohol or drug abuse patient.[facility] the event this information is protected by the Federal Confidentiality of Alcohol and Drug Abuse Patient Records regulations: The Federal rules restrict any use of the information to criminally investigate or prosecute any alcohol or drug abuse patient.[facility] Hospital[facility] the event this information is protected by the Federal Confidentiality of Alcohol and Drug Abuse Patient Records regulations: The Federal rules restrict any use of the information to criminally investigate or prosecute any alcohol or drug abuse patient.[facility] the event this information is protected by the Federal Confidentiality of Alcohol and Drug Abuse Patient Records regulations: The Federal rules restrict any use of the information to criminally investigate or prosecute any alcohol or drug abuse patient.[facility] the event this information is protected by the Federal Confidentiality of Alcohol and Drug Abuse Patient Records regulations: The Federal rules restrict any use of the information to criminally investigate or prosecute any alcohol or drug abuse patient.[facility] Hospital[facility] the event this information is protected by the Federal Confidentiality of Alcohol and Drug Abuse Patient Records regulations: The Federal rules restrict any use of the information to criminally investigate or prosecute any alcohol or drug abuse patient.[facility] Hospital[facility] the event this information is protected by the Federal Confidentiality of Alcohol and Drug Abuse Patient Records regulations: The Federal rules restrict any use of the information to criminally investigate or prosecute any alcohol or drug abuse patient.[facility] Hospital[facility] the event this information is protected by the Federal Confidentiality of Alcohol and Drug Abuse Patient Records regulations: The Federal rules restrict any use of the information to criminally investigate or prosecute any alcohol or drug abuse patient.[facility] HospitalIn the event this information is protected by the Federal Confidentiality of Alcohol and Drug Abuse Patient Records regulations: The Federal rules restrict any use of the information to criminally investigate or prosecute any alcohol or drug abuse patient.[facility] HospitalIn the event this information is protected by the Federal Confidentiality of Alcohol and Drug Abuse Patient Records regulations: The Federal rules restrict any use of the information to criminally investigate or prosecute any alcohol or drug abuse patient.[facility] Hospital[facility] the event this information is protected by the Federal Confidentiality of Alcohol and Drug Abuse Patient Records regulations: The Federal rules restrict any use of the information to criminally investigate or prosecute any alcohol or drug abuse patient.[facility] HospitalIn the event this information is protected by the Federal Confidentiality of Alcohol and Drug Abuse Patient Records regulations: The Federal rules restrict any use of the information to criminally investigate or prosecute any alcohol or drug abuse patient.[facility] HospitalIn the event this information is protected by the Federal Confidentiality of Alcohol and Drug Abuse Patient Records regulations: The Federal rules restrict any use of the information to criminally investigate or prosecute any alcohol or drug abuse patient.[facility] HospitalIn the event this information is protected by the Federal Confidentiality of Alcohol and Drug Abuse Patient Records regulations: The Federal rules restrict any use of the information to criminally investigate or prosecute any alcohol or drug abuse patient.[facility] HospitalIn the event this information is protected by the Federal Confidentiality of Alcohol and Drug Abuse Patient Records regulations: The Federal rules restrict any use of the information to criminally investigate or prosecute any alcohol or drug abuse patient.[facility] HospitalIn the event this information is protected by the Federal Confidentiality of Alcohol and Drug Abuse Patient Records regulations: The Federal rules restrict any use of the information to criminally investigate or prosecute any alcohol or drug abuse patient.[facility] HospitalIn the event this information is protected by the Federal Confidentiality of Alcohol and Drug Abuse Patient Records regulations: The Federal rules restrict any use of the information to criminally investigate or prosecute any alcohol or drug abuse patient.[facility] HospitalIn the event this information is protected by the Federal Confidentiality of Alcohol and Drug Abuse Patient Records regulations: The Federal rules restrict any use of the information to criminally investigate or prosecute any alcohol or drug abuse patient.[facility] HospitalIn the event this information is protected by the Federal Confidentiality of Alcohol and Drug Abuse Patient Records regulations: The Federal rules restrict any use of the information to criminally investigate or prosecute any alcohol or drug abuse patient.[facility] HospitalIn the event this information is protected by the Federal Confidentiality of Alcohol and Drug Abuse Patient Records regulations: The Federal rules restrict any use of the information to criminally investigate or prosecute any alcohol or drug abuse patient.[facility] HospitalIn the event this information is protected by the Federal Confidentiality of Alcohol and Drug Abuse Patient Records regulations: The Federal rules restrict any use of the information to criminally investigate or prosecute any alcohol or drug abuse patient.[facility] HospitalIn the event this information is protected by the Federal Confidentiality of Alcohol and Drug Abuse Patient Records regulations: The Federal rules restrict any use of the information to criminally investigate or prosecute any alcohol or drug abuse patient.[facility] HospitalIn the event this information is protected by the Federal Confidentiality of Alcohol and Drug Abuse Patient Records regulations: The Federal rules restrict any use of the information to criminally investigate or prosecute any alcohol or drug abuse patient.[facility] HospitalIn the event this information is protected by the Federal Confidentiality of Alcohol and Drug Abuse Patient Records regulations: The Federal rules restrict any use of the information to criminally investigate or prosecute any alcohol or drug abuse patient.[facility] HospitalIn the event this information is protected by the Federal Confidentiality of Alcohol and Drug Abuse Patient Records regulations: The Federal rules restrict any use of the information to criminally investigate or prosecute any alcohol or drug abuse patient.[facility] Reason for Visit (unrecogniz ed section [...] MIN EST PATIENT Wyatt Garza MD [address] [place] [address] Wyatt Garza MD [address] [place] [address] [place] [address] Referral ID Status Reason Start Date Expiration Date Visits Re quested Visits Authorized [id number] Closed 12/08/2022 03/16/2023 1 1 Reason Comments Head and Neck Cancer 1 year follow up Reason Comments Radiology US Specialty Diagnoses / Procedures Referred By Contac t Referred To Contact US IMAGING Diagnoses Abnormal LFTs Chronic hepatitis C without hepatic coma (HCC) Procedures US ABD RIGHT UPPER QUADRANT US ABDOMINAL REAL [place] W/[place] [address] [place] [address] [place] [address] Referral ID Status Reason Start Date Expiration Date V isits Requested Visits Authorized [id number] Closed Auto-Generate d Referral 05/21/2024 06/16/2025 1 1 Reason Comments Head and Neck Cancer 3 month follow up Reason Comments Radiology CT Specialty Diagnoses / Procedures Referred By Contac t Referred To Contact CT IMAGING Diagnoses History of head and neck cancer Lung nodules Procedures CT CHEST W IVCON DIAGNOSTIC COMPUTED TOMOGRAPHY THORAX W/CONTRAST Wyatt Garza MD [address] [place] [address] [place] [address] Referral ID Status Reason Start Date Expiration Date V isits Requested Visits Authorized [id number] Closed Auto-Generate d Referral 06/22/2024 11/06/2024 1 1 Specialty Diagnoses / Procedures Referred By Contac t Referred To Contact CT IMAGING Diagnoses Localized enlarged lymph nodes History of head and neck cancer Procedures CT CHEST W IVCON DIAGNOSTIC COMPUTED TOMOGRAPHY THORAX W/CONTRAST Wyatt Garza MD [address] [place] [address] [place] [address] Referral ID Status Reason Start Date Expiration Date V isits Requested Visits Authorized [id number] Closed Auto-Generate d Referral 12/19/2023 01/17/2025 1 [address] Specialty Diagnoses / Procedures Referred By Contac t Referred To Contact CT IMAGING Diagnoses Lung nodules Procedures CT NECK SOFT TISSUE W IVCON CT SOFT TISSUE NECK W/CONTRAST MATERIAL Wyatt Garza MD [address] [place] [address] [place] [address] Referral ID Status Reason Start Date Expiration Date V isits Requested Visits Authorized [id number] Closed Auto-Generate d Referral 12/16/2023 01/15/2024 1 1 Specialty Diagnoses / Procedures Referred By Contac t Referred To Contact CT IMAGING Diagnoses Malignant neoplasm of head, face and neck (HCC) Lung nodules Procedures CT NECK SOFT TISSUE W IVCON CT SOFT TISSUE NECK W/CONTRAST MATERIAL Wyatt Garza MD [address] [place] [address] [place] [address] [place] [address] Referral ID Status Reason Start Date Expiration Date V isits Requested Visits Authorized [id number] Closed Auto-Generate d Referral 12/08/2022 01/16/2023 1 [address] Specialty Diagnoses / Procedures Referred By Contac t Referred To Contact CT IMAGING Diagnoses Lung nodules Procedures CT CHEST W IVCON CAT SCAN OF CHEST CONTRAST Wyatt Garza MD [address] [place] [address] [place] [address] [place] [address] Referral ID Status Reason Start Date Expiration Date V isits Requested Visits Authorized [id number] Closed Auto-Generate d Referral 12/18/2020 01/17/2022 3 3 Reason Comments Cancer 1 yr cancer check Specialty Diagnoses / Procedures Referred By Contac t Referred To Contact CT IMAGING Diagnoses History of head and neck cancer Lung nodules Procedures CT NECK SOFT TISSUE W IVCON CT SOFT TISSUE NECK W/CONTRAST MATERIAL Wyatt Garza MD [address] [place] [address] [place] [address] Phone: tel: fax: [place] [address] Referral ID Status Reason Start Date Expiration Date V isits Requested Visits Authorized [id number] Closed Auto-Generate d Referral 12/30/2024 07/29/2025 1 1 Reason Comments Follow Up Tests Results Labs---->needs U S, Fibroscan and Care Teams (unrecognized sec tion and content) Carpet Layer Relationship Specialty Start Date End Date Elba De La Cruz MD [address] [place] [address] PCP - General Family Practice 01/04/18 Carpet Layer Relationship Specialty Start Date End Date Elba De La Cruz MD [address] [place] [address] PCP - General Family Practice 01/04/18 Carpet Layer Relationship Specialty Start Date End Date Elba De La Cruz MD [address] [place] [address] PCP - General Family Practice 01/04/18 Carpet Layer Relationship Specialty Start Date End Date Elba De La Cruz MD [address] [place] [address] PCP - General Family Practice 01/04/18 Carpet Layer Relationship Specialty Start Date End Date Elba De La Cruz MD [address] [place] [address] PCP - General Family Medicine 01/04/18 Carpet Layer Relationship Specialty Start Date End Date Elba De La Cruz MD [address] [place] [id number] PCP - General Family Medicine 01/04/18 Carpet Layer Relationship Specialty Start Date End Date Elba De La Cruz MD PCP - General Family Medicine 01/04/18 Carpet Layer Relationship Specialty Start Date End Date Elba De La Cruz MD PCP - General Family Medicine 01/04/18 Carpet Layer Relationship Specialty Start Date End Date Elba De La Cruz MD PCP - General Family Medicine 01/04/18 Carpet Layer Relationship Specialty Start Date End Date Elba De La Cruz MD PCP - General Family Medicine 01/04/18 Carpet Layer Relationship Specialty Start Date End Date Elba De La Cruz MD PCP - General Family Medicine 01/04/18 Carpet Layer Relationship Specialty Start Date End Date Elba De La Cruz MD PCP - General Family Medicine 01/04/18 Carpet Layer Relationship Specialty Start Date End Date Elba De La Cruz MD PCP - General Family Medicine 01/04/18 Carpet Layer Relationship Specialty Start Date End Date Elba De La Cruz MD PCP - General Family Medicine 01/04/18 Carpet Layer Relationship Specialty Start Date End Date Elba De La Cruz MD [address] [place] [address] PCP - General Family Medicine 03/15/23 Carpet Layer Relationship Specialty Start Date End Date Elba De La Cruz MD [address] [place] [address] PCP - General Family Medicine 03/15/23 Carpet Layer Relationship Specialty Start Date End Date Elba De La Cruz MD [address] [place] [address] PCP - General Family Medicine 03/15/23 Carpet Layer Relationship Specialty Start Date End Date Elba De La Cruz MD [address] [place] [address] PCP - General Family Medicine 03/15/23 Carpet Layer Relationship Specialty Start Date End Date Elba De La Cruz MD PCP - General Family Medicine 01/04/18 Carpet Layer Relationship Specialty Start Date End Date Elba De La Cruz MD PCP - General Family Medicine 01/04/18 Carpet Layer Relationship Specialty Start Date End Date Elba [...] BE BASED ON THE PRIMARY CLINICAL RECORDS. [facility]. provides no warranty or guarantee of the accuracy or completeness of information in this document.
== END 2025-08-14 07:30 | disposition home or self-care (01) ==
LOC: LAB 07:29
PROVIDERS: PCP Family Medicine; Visit Provider Family Medicine
DX: Z77.120 Contact with and (suspected) exposure to mold (toxic) (principal)
CPT/HCPCS: 87070; 87077; 87186; 87205

== ENCOUNTER 2025-09-04 06:52 | Outpatient (OUT) | payer MEDICARE, MEDICAID, SELFPAY ==
--- OUTSIDE RECORDS SUMMARY | 2025-08-21 04:45 | XMS_ITS ---
Author Organization The [facility] in [place] Address [address] [place] [address] Care Team Providers Care Trading Floor Operator Name Role Phone Maldonado Crouch Primary Care Provider Allergies No Known Allergies REASON FOR VISIT f/u- still with phlegm colored- headaches- has been taking his ATB, Thinks is may be from the mold in his air conditioner at his apartment, Discuss Tamsulosin- said that he is urinating every time hehas a drink, Patient said the steroids seem to be helping Medications Medication SIG (Take, Route, Frequency, Duration) Notes Start Date End Date Status Diflucan 100 MG 1 tablet Orally daily; Duration: 10 days 5ActiveTamsulosin HCl 0.4 MGTAKE 2 CAPSULES BY MOUTH DAILY; Duration: 30ActiveViagra 100 MG1 tablet as needed Orally Once a day; Duration: 30 day(s) 5ActivepredniSONE 20 MG3 tablets Orally Once a day; Duration: 5 days 5ActivelevoFLOXacin 750 MG1 tablet Orally Once a day; Duration: 10 day(s)5Active Social History Tobacco Use: Social History Observation Description Date Details (start date - stop date) Current Smoker 11/07/1966 - NA Tobacco Use/Smoking Question Answer Notes Patient is a current smoker When did you start smoking?11/07/1966How often do you smoke cigarettes?every day How many cigarettes a day do you smoke?5 or lessHow soon after you wake up do you smoke your first cigarette?6-30 minutesAre you interested in quitting? Thinking about quitting Vital Signs Weight 158.5 lbs 08/21/2025 Height 65 in 08/21/2025 Blood pressure systolic 122 mm Hg 08/21/20 25 Blood pressure diastolic 80 mm Hg 025 BMI 26.37 kg/m2 08/21/2025 Encounters Encounter Location Date Provider Diagnosis [facility] [address] [place] [address] 08/21/2025 Maldonado Crouch COPD (chronic obstructive pulmonary disease) J44.9 Assessments Encounter Date Diagnosis (ICD Code) Assessment Notes Treatment Notes Treatment Clinical Notes Section Notes 08/21/2025 COPD (chronic obstructive pulmon christina disease) (ICD-10 - J44.9) If not better -needs ct scan sinuses Plan Of Treatment Medication Medication Name Sig Start Date Stop Date Notes Diflucan 100 MG 1 tablet Orally daily; Duration: 10 da ys 08/21/2025 Viagra 100 MG1 tablet as needed Orally Once a day; Duration: 30 day(s)06/18/2025 levoFLOXacin 750 MG1 tablet Orally Once a day; Duration: 10 day(s)07/17/2025 Treatment Notes Assessment Notes COPD (chronic obstructive pulmonary dise ase) If not better -needs ct scan sinuses Next Appt Details Provider Name:Maldonado Crouch, 08:15:00 AM, [address] [place], [address], Progress Notes * Carson NOLANDOB:[birth year] (69 yo M)Acc No.[id number]:08/21/2025 Progress Note Patient: Dominguez Carson ZAMUDIO :?Bird Crouch ([facility]), MDDOB:1955???Age: 69 Y???Sex:MaleDate:08/21/2025Phone:[phone]:[address] [place] [id number] In:08:40 AM ESTCheck Out:09:18 AM EST Subjective: * Chief Complaints: * f /u- still with phlegm colored- headaches- has been taking his ATBThinks is may be from the mold in his air conditioner at his apartmentDiscuss Tamsulosin- said that he is urinating every time he has a drinkPatient said the steroids seem to be helping * HPI: ???General:? Cough 0 still coughin? g - colored sputum - stil with opcc yellow. ???COPD:?The patient complains of?increased shortness of breath andphlegm production.?Symptoms have been?worsening.?The symptoms have been present for?1-2 days.?The symptoms are?mild.?Symptomatic treatment has included?OTC chest decongestant. ?Associated Symptoms?Wheezing, Cough, Fatigue, Chest tightness.? * ROS: ???General/Constitutional:?Chills?denies.?Fever?denies.?Weight Change denies.?Skin:?Rash?denies.?Cardiovascular:?Chest pain?denies.?Chest pain at rest?denies. Palpitations?denies.?Respiratory:?Comments?See HPI for details.? * Active Problem List S82.831D Closed fracture of d istal end of right fibula with routine healing, unspecified fracture morphology, subsequent encounter Modified On:08/16/2023 Status:ougmvqmexP65.899AOther fracture of unspecified lower leg, initial encounter for closed fracture Modified On:07/05/2023 Status:yscszymbwD19.831AOther fracture of upper and lower end of right fibula, initial encounter for closed fracture Modified On:08/24/2023 Status:rvahwjmbiY13.401AMaxillary fracture, unspecified side, initial encounter for closed fracture Modified On:07/05/2023 Status:rhdbqnlcxK32.1Solitary pulmonary nodule Modified On:07/05/2023 Status:idzdjiggbP58.819Decreased white blood cell count, unspecified Modified On:07/05/2023 Status:blmuwkyjnI62.10Dysphagia, unspecified Modified On:07/05/2023 Status:nxuqcixswA37.61XADisplaced fracture of lateral malleolus of right fibula, initial encounter for closed fracture Modified On:07/26/2023 Status:qqreqmrqvX14.671Charcot's joint, right ankle and foot Modified On:10/19/2023 Status:hbzazezkaE27.1Alcoholic polyneuropathy Modified On:10/19/2023 Status:nvjohkyqiN53.672Charcot's joint, left ankle and foot Modified On:07/26/2023 Status:pbfbtzafyS41.92XAFacial fracture Modified On:08/02/2023 Status:esjuwbnsmX56.899AAnkle fracture Modified On:08/02/2023 Status:zjpjqlysgX59.7Diarrhea Modified On:08/02/2023 Status:mskxzcpynM98.10Alcohol abuse Modified On:08/03/2023 Status:acsksyiyhO83.81Unsteady gait Modified On:08/05/2023 Status:xpsnxiufmG32.819Leukopenia Modified On:08/03/2023 Status:dafzsdqhaT15Wcpcnua malnutrition Modified On:08/05/2023 Status:knjlhdawxB93.829Elevated WBCs Modified On:08/05/2023 Status:kscepnnmpK76.20Alcoholism Modified On:08/05/2023 Status:yjfzdnjfpL63.6Frequent falls Modified On:08/05/2023 Status:ixjlhjfwsK95.10Dysphagia Modified On:08/05/2023 Status:ngtflimiqO41.0Prostate hypertrophy Modified On:08/16/2023 Status:mhbsdhxwuT32.64XKNondisplaced fracture of lateral malleolus of right fibula, subsequent encounter for closed fracture with nonunion Modified On:10/19/2023 Status:uivchepmdX09.89Secondary malignant neoplasm of other specified sites Modified On:04/04/2024U Status:juisbjgthC87.10Narcotic abuse Modified On:03/07/2025 Status:wqtcmalgiO13.818Pancytopenia Modified On:03/07/2025 Status:pevcrbxswW88.2Chronic viral hepatitis C Modified On:04/29/2025U Status:ridpsngfvS25.9Impotence Modified On:06/18/2025 Status:dbgiqopakN86.9COPD (chronic obstructive pulmonary disease) Modified On:07/17/2025 Status:confirmed * Medical History: * Surgical History: F eeding tube placement at one time * Hospitalization/Major Diagno stic Procedure: F alls 07/06/23Broken Right Ankle 07/2023 * Family History: F ather: , diagnosed with Diabetes. M other: , diagnosed with Diabetes, Heart Disease. 1 son(s) . . * Social History: ???Tobacco Use:?Tobacco Use/Smoking?Patient is a?current smoker ?When did you start smoking??11/07/1966 ?How often do you smoke cigarettes??every day ?How many cigarettes a day do you smoke??5 or less ?How soon after you wake up do you smoke your first cigarette??6-30 minutes ?Are you interested in quitting??Thinking about quitting * Medications: T akinglevoFLOXacin 750 MG Tablet 1 tablet Orally Once a day predniSONE 20 MG Tablet 3 tablets Orally Once a day Tamsulosin HCl 0.4 MG Capsule TAKE 2 CAPSULES BY MOUTH DAILY Viagra(Sildenafil Citrate) 100 MG Tablet 1 tablet as needed Orally Once a day Taking levoFLOXacin 750 MG Tablet 1 tablet Orally Once a day Taking predniSONE 20 MG Tablet 3 tablets Orally Once a day Taking Tamsulosin HCl 0.4 MG Capsule TAKE 2 CAPSULES BY MOUTH DAILY Taking Viagra(Sildenafil Citrate) 100 MG Tablet 1 tablet as needed Orally Once a day DiscontinuedpredniSONE 10 MG Tablet 5 tabs per day for 3 days, 4 tabs per day for 3 ays, 3 tabs perday for 3 days, 2 tabs per day for 3 days, 1 tab a day for 3 days, 1/2 tab a day for 4 days Orally Once a day Medication List reviewed and reconciled with the patientDiscontinued predniSONE 10 MG Tablet 5 tabs per day for 3 days, 4 tabs per day for 3 ays, 3 tabs perday for 3 days, 2 tabs per day for 3 days, 1 tab a day for 3 days, 1/2 tab a day for 4 days Orally Once a day Medication List reviewed and reconciled with the patient * Allergies: N .K.D.A.no[Allergies Verified] Objective: * Vitals: W t:158.5lbs, Ht: 65 in, BP:122/80mm Hg, BMI:26.37Index, Ht-cm: 165.1 cm, Wt-k.9 kg. * Examination: ???General Examination: ?GENERAL APPEARANCE:? in no acute distress.?EYES:? extra ocular movement intact (EOMI) .?EARS:? auditory canal clear, middle ear effusion noted. ?NOSE:? clear discharge, turbinates pale and swollen.?ORAL CAVITY:? mucosa moist.?THROAT:? no erythema, post-nasal drainage noted.?LYMPH NODES:? no cervical adenopathy.?LUNGS:?diffuse rhonchi - distant.?CARDIO:? no murmurs, regular rate and rhythm.?NECK/THYROID:? neck supple, no thyromegaly.?? ? Assessment: * Assessment: 1.?COPD (chronic obstructive pulmonary disease) - J44.9 (Primary)??? Plan: * Treatment: Start Diflucan Tablet, 100 MG, 1 tablet, Orally, daily, 10 days, 10 Tablet, Refills 1;?Refill levoFLOXacin Tablet, 750 MG, 1 tablet, Orally, Once a day, 10 day(s), 10;?Refill Viagra Tablet,100 MG, 1 tablet as needed, Orally, Once a day, 30 day(s), 30.?? Notes: If not better -needs ct scan sinuses?? * Procedure Codes: * Preventive Medicine: ??Screenings/Counseling:?BMI ACTION PLAN?Above Normal BMI Follow-up?Dietary management education, guidance, and counseling * * Sign off status: CompletedVisit Status:?CHK (Check Out) true * Provider: May Crouch (TTC)MD Date: 1 Generated for Printing/Faxing/eTransmitting on:?09/03/2025 06:54 AM EDT History and Physical Notes * HPI (History of Present Illness) CategorySub-CategoryDetailNotesCategory NotesGeneralCough 0 still coughin g - colored sputum - stil with opcc yellowCOPDAssociated SymptomsWheezing, Cough, Fatigue, Chest tightnessSymptoms have beenworseningThe patient complains of increased shortness of breath and phlegm productionThe symptoms have been present for1-2 daysThe symptoms aremildSymptomatic treatment has includedOTC chest decongestant Examination CategorySub-CategoryDetailNotesCategory NotesGeneral ExaminationGENERAL APPEARANCE:in no acute distressEYES:extra ocular movement intact (EOMI)EARS: auditory canal clear, middle ear effusion notedNOSE:clear discharge, turbinates pale and swollenTHROAT:no erythema, post-nasal drainage notedCARDIO:no murmurs, regular rate and rhythmLUNGS:diffuse rhonchi - distantLYMPH NODES:no cervical adenopathyORAL CAVITY:mucosa moistNECK/THYROID:neck supple, no thyromegaly
--- OUTSIDE RECORDS SUMMARY | 2025-08-21 04:45 | XMS_ITS ---
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 Name Role Phone Maldonado Crouch Primary Care [...] 08/21/2025 Encounters Encounter Location Date Provider Diagnosis [facility] [address] [place] [address] 08/21/2025 Maldonado Crouch COPD (chronic obstructive pulmonary [...] If not better -needs ct scan sinuses Progress Notes * Carson NOLANDOB:[birth year] (69 yo M)Acc No.[id number]:08/21/2025 Progress Note Patient: Carson BENNETT :?Bird Crouch ([facility]), MDDOB:1955???Age: 69 Y???Sex:MaleDate:08/21/2025Phone:[phone]:[address] [place], [place]Check In:08:40 AM ESTCheck Out:09:18 AM EST Subjective: [...] unspecified fracture morphology, subsequent encounter Modified On:08/16/2023 Status:xwmbvtdqmK06.899AOther fracture of unspecified lower leg, initial encounter for closed fracture Modified On:07/05/2023 Status:igsqilygeJ97.831AOther fracture of upper and lower end of right fibula, initial encounter for closed fracture Modified On:08/24/2023 Status:afskqrxruU25.401AMaxillary fracture, unspecified side, initial encounter for closed fracture Modified On:07/05/2023 Status:xjlhsypvgK04.1Solitary pulmonary nodule Modified On:07/05/2023 Status:dpfihwpijN66.819Decreased white blood cell count, unspecified Modified On:07/05/2023 Status:nysrwrakoR83.10Dysphagia, unspecified Modified On:07/05/2023 Status:szjdlnijbZ03.61XADisplaced fracture of lateral malleolus of right fibula, initial encounter for closed fracture Modified On:07/26/2023 Status:hzxwczajrA66.671Charcot's joint, right ankle and foot Modified On:10/19/2023 Status:phcmxbyhpA74.1Alcoholic polyneuropathy Modified On:10/19/2023 Status:omcowgliuV07.672Charcot's joint, left ankle and foot Modified On:07/26/2023 Status:ypfsdyyfdO49.92XAFacial fracture Modified On:08/02/2023 Status:wypuxfrijW85.899AAnkle fracture Modified On:08/02/2023 Status:cihkcpqojE42.7Diarrhea Modified On:08/02/2023 Status:lnmxjtdnnK28.10Alcohol abuse Modified On:08/03/2023 Status:gnyhlpikgC76.81Unsteady gait Modified On:08/05/2023 Status:iatgizyjbJ18.819Leukopenia Modified On:08/03/2023 Status:evvrgbuwsQ67Rbfauqw malnutrition Modified On:08/05/2023 Status:xfjbgdkdvH70.829Elevated WBCs Modified On:08/05/2023 Status:funzsesvkH53.20Alcoholism Modified On:08/05/2023 Status:bsjqnnenmF72.6Frequent falls Modified On:08/05/2023 Status:pbywwbonpL70.10Dysphagia Modified On:08/05/2023 Status:sitibanorD18.0Prostate hypertrophy Modified On:08/16/2023 Status:mwueczcweL29.64XKNondisplaced fracture of lateral malleolus of right fibula, subsequent encounter for closed fracture with nonunion Modified On:10/19/2023 Status:lteaqgfzxV50.89Secondary malignant neoplasm of other specified sites Modified On:04/04/2024 Status:qutdhjajcN58.10Narcotic abuse Modified On:03/07/2025U Status:jmkqpygmuG75.818Pancytopenia Modified On:03/07/2025U Status:ruozbkdkaS02.2Chronic viral hepatitis C Modified On:04/29/2025W/U Status:owqdypddkL09.9Impotence Modified On:06/18/2025W/U Status:jvfrurvsaQ24.9COPD (chronic obstructive pulmonary disease) Modified On:07/17/2025/U Status:confirmed * Medical History: * Surgical History: [...] Crouch (TTC)MD Date: 1 Generated for Printing/Faxing/eTransmitting on:?09/04/2025 06:58 AM EDT History and Physical Notes * [...]
--- OUTSIDE RECORDS SUMMARY | 2025-08-28 11:20 | XMS_ITS | Encounter Summary ---
Author Organization [facility] Address [address] [place] [address] Care Team Providers Care Maternal Fetal Physician Name Role Phone Bird Crouch MD Primary Care Provider [phone] Reason for Visit * ReasonCommentsThroat ProblemThroat and ear clogged Encounter Details DateTypeDepartmentCare Team (Latest Contact Info)Qffprbjzwds16/22/2025 11:20 AM EDTOffice Visit [facility] [place] [facility] 112 [facility] 130 [place] [address] Kelly Pulliam MD 112 [facility] 130 [place] [address] Non-seasonal allergic rhinitis due to other allergic trigger (Primary Dx); Chronic sinusitis, unspecified location; Tongue cancer (HCC); Bilateral impacted cerumen; Chronic pansinusitis; Chronic maxillary sinusitis Social History Tobacco UseTypesPacks/DayYears UsedDateSmoking Tobacco: Every DayCigarettes0.5 53.8Started: 1972Smokeless Tobacco: Never Comments:Smokes 6-10 cigaret yoko/day Alcohol UseStandard Drinks/WeekCommentsYes8 (1 standard drink = 0.6 oz pure alcohol)Caffeine >4 cups/daySex and Gender InformationValueDate RecordedSex Assigned at BirthNot on fileLegal XpmOhbm7401/19/2023 8:14 PM EDTGender Identity Not on fileSexual OrientationNot on filedocumented as of this encounter Last Filed Vital Signs Vital SignReadingTime TakenCommentsBlood Pressure--Pulse--Temperature-- Respiratory Rate--Oxygen Saturation--Inhaled Oxygen Concentration--Vgzghx52.9 kg (143 lb)08/28/2025 11:16 AM XULOenlup958.1 cm (5' 5 )08/28/2025 11:16 AM EDTBody Mass Index23.810 11:16 AM EDTdocumented in this encounter Progress Notes * Kelly Pulliam MD - 08/28/2025 11:20 AM EDT Images from the original note were not included. Subjective Patient ID: Carson Morse is a 69 y.o. male who presents for Throat Problem (Throat and ear clogged ) Pt reports he recently moved to [place] and believes there is mold in his [...] fracture (CMS-HCC) 08/28/2025 Odynophagia 08/28/2025 Opioid abuse ([facility]-HCC) 08/28/2025 Leukocytosis 08/28/2025 Poisoning by unspecified narcotics, accidental (unintentional), initial encounter ([facility]) 08/28/2025 Recurrent falls 08/28/2025 Solitary pulmonary nodule [...] [2] Past Surgical History: Procedure Laterality Date [place] LARYNGOSCOPY,DIRECT,DX,OP MICROSCOP 12/27/2017 [3] No Known Allergies [...] Plan of Treatment DateTypeDepartmentCare Team (Latest Contact Info)Bpeoxkeqjsu97/01/2025 11:20 AM ESTOffice Visit [facility] [place] [facility] [address] [facility] [address] [place] [phone] Kelly Pulliam MD [address] [place] [address] 08/27/2026 11:20 AM EDTOffice Visit [facility] [place] [facility] [address] [facility] [address] [place] [phone] Kelly Pulliam MD [address] [place] [address] NameTypePriorityAssociated DiagnosesOrder ScheduleXR paranasal sinuses 3+ views [...] DateEnd Date Bird Crouch MD [address] [place] [phone] PCP - GeneralFamily Qjzbfdft94/16/25documented as of this encounter
--- OUTSIDE RECORDS SUMMARY | 2025-08-28 11:20 | XMS_ITS | Encounter Summary ---
Author Organization [facility] Address [address] [place] [address] Care Team Providers Care Data Coder Operator Name Role Phone Bird Crouch MD Primary Care Provider [phone] Reason for Visit * ReasonCommentsThroat ProblemThroat and ear clogged Encounter Details DateTypeDepartmentCare Team (Latest Contact Info)Tfdxcawmcsy99/22/2025 11:20 AM EDTOffice Visit [facility] [place] [facility] 112 [facility] [address] [place] [phone] Kelly Pulliam MD 112 [facility] 130 [place] [address] Non-seasonal allergic rhinitis due to other allergic trigger (Primary Dx); Chronic sinusitis, unspecified location; Tongue cancer (HCC); Bilateral impacted cerumen; Chronic pansinusitis; Chronic maxillary sinusitis Social History Tobacco UseTypesPacks/DayYears UsedDateSmoking Tobacco: Every DayCigarettes0.5 53.8Started: 1972Smokeless Tobacco: Never Comments:Smokes 6-10 cigaret yoko/day Alcohol UseStandard Drinks/WeekCommentsYes8 (1 standard drink = 0.6 oz pure alcohol)Caffeine >4 cups/daySex and Gender InformationValueDate RecordedSex Assigned at BirthNot on fileLegal BzsArzo7201/19/2023 8:14 PM EDTGender Identity Not on fileSexual OrientationNot on filedocumented as of this encounter Last Filed Vital Signs Vital SignReadingTime TakenCommentsBlood Pressure--Pulse--Temperature-- Respiratory Rate--Oxygen Saturation--Inhaled Oxygen Concentration--Ovnfrc83.9 kg (143 lb)08/28/2025 11:16 AM MQVBpkjwc213.1 cm (5' 5 )08/28/2025 11:16 AM EDTBody Mass Index23.810 11:16 AM EDTdocumented in this encounter Progress Notes * Kelly Pulliam MD - 08/28/2025 11:20 AM EDT Images from the original note were not included. Subjective Patient ID: Carson Morse is a 69 y.o. male who presents for Throat Problem (Throat and ear clogged ) Pt reports he recently moved to [email or web address] and believes there is mold in his [...] fracture (CMS-HCC) 08/28/2025 Odynophagia 08/28/2025 Opioid abuse ([facility]-H[facility]) 08/28/2025 Leukocytosis 08/28/2025 Poisoning by unspecified narcotics, accidental (unintentional), initial encounter ([facility]) 08/28/2025 Recurrent falls 08/28/2025 Solitary pulmonary nodule [...] [2] Past Surgical History: Procedure Laterality Date [place] LARYNGOSCOPY,DIRECT,DX,OP MICROSCOP 12/27/2017 [3] No Known Allergies [...] MA - 08/28/2025 11:20 AM EDTAddended by: DROIS SHOOK on: 09/02/2025 08:58 AM Modules accepted: Orders documented in this encounter Plan of Treatment DateTypeDepartmentCare Team (Latest Contact Info)Ocsgpssiyqe58/01/2025 11:20 AM ESTOffice Visit [facility] [place] [facility] [address] [facility] [address] [place] [phone] Kelly Pulliam MD [address] [place] [address] 08/27/2026 11:20 AM EDTOffice Visit [facility] [place] [facility] [address] [facility] [address] [place] [phone] Kelly Pulliam MD [address] [place] [address] NameTypePriorityAssociated DiagnosesOrder ScheduleXR paranasal sinuses 3+ views [...] DateEnd Date Bird Crouch MD [address] [place] [phone] PCP - GeneralFamily Uoqvgsst01/16/25documented as of this encounter
--- OUTSIDE RECORDS SUMMARY | 2025-08-28 11:20 | XMS_ITS | Encounter Summary ---
Author Organization [facility] Address [address] [place] [address] Care Team Providers Care Steel Analyst Name Role Phone Bird Crouch MD Primary Care Provider [phone] Reason for Visit * ReasonCommentsThroat ProblemThroat and ear clogged Encounter Details DateTypeDepartmentCare Team (Latest Contact Info)Ybwrmwyvdsj22/22/2025 11:20 AM EDTOffice Visit [facility] [place] [facility] 112 [facility] 130 [place] [address] Kelly Pulliam MD 112 [facility] 130 [place] [address] Non-seasonal allergic rhinitis due to other allergic trigger (Primary Dx); Chronic sinusitis, unspecified location; Tongue cancer (HCC); Bilateral impacted cerumen; Chronic pansinusitis; Chronic maxillary sinusitis Social History Tobacco UseTypesPacks/DayYears UsedDateSmoking Tobacco: Every DayCigarettes0.5 53.8Started: 1972Smokeless Tobacco: Never Comments:Smokes 6-10 cigaret yoko/day Alcohol UseStandard Drinks/WeekCommentsYes8 (1 standard drink = 0.6 oz pure alcohol)Caffeine >4 cups/daySex and Gender InformationValueDate RecordedSex Assigned at BirthNot on fileLegal UdcIqkh9001/19/2023 8:14 PM EDTGender Identity Not on fileSexual OrientationNot on filedocumented as of this encounter Last Filed Vital Signs Vital SignReadingTime TakenCommentsBlood Pressure--Pulse--Temperature-- Respiratory Rate--Oxygen Saturation--Inhaled Oxygen Concentration--Voitlk56.9 kg (143 lb)08/28/2025 11:16 AM HFZDqhdkr462.1 cm (5' 5 )08/28/2025 11:16 AM EDTBody Mass Index23.810 11:16 AM EDTdocumented in this encounter Progress Notes * Kelly Pulliam MD - 08/28/2025 11:20 AM EDT Images from the original note were not included. Subjective Patient ID: Carson Morse is a 69 y.o. male who presents for Throat Problem (Throat and ear clogged ) Pt reports he recently moved to [email or web address] and believes there is mold in his [...] fracture (CMS-HCC) 08/28/2025 Odynophagia 08/28/2025 Opioid abuse ([facility]) 08/28/2025 Leukocytosis 08/28/2025 Poisoning by unspecified narcotics, accidental (unintentional), initial encounter ([facility]) 08/28/2025 Recurrent falls 08/28/2025 Solitary [...] [2] Past Surgical History: Procedure Laterality Date [place] LARYNGOSCOPY,DIRECT,DX,OP MICROSCOP 12/27/2017 [3] No Known Allergies [...] Plan of Treatment DateTypeDepartmentCare Team (Latest Contact Info)Mzirpyuotpp35/01/2025 11:20 AM ESTOffice Visit [facility] [place] [facility] [address] [facility] [address] [place] [phone] Kelly Pulliam MD [address] [place] [address] 08/27/2026 11:20 AM EDTOffice Visit [facility] [place] [facility] [address] [facility] [address] [place] [phone] Kelly Pulliam MD [address] [place] [address] NameTypePriorityAssociated DiagnosesOrder ScheduleXR paranasal sinuses 3+ views [...] encounter Care Teams Team MemberRelationshipSpecialtyStart DateEnd Date Brid Crouch MD [address] [place] [phone] PCP - GeneralFamily Yfanquau09/16/25documented as of this encounter
--- OUTSIDE RECORDS SUMMARY | 2025-09-03 04:15 | XMS_ITS ---
Author Organization [facility] in [place] Address [address] [place] [address] Care Team Providers Care Medical Record Technician Name Role Phone Maldonado Crouch Primary Care [...] alcohol in the p ast year? No Hroqmx8YlgmiassnxfnreKzhckblv Problems Problem Type SNOMED Code ICD Code Onset Dates Problem Status W/U Status Risk Notes Problem Laryngeal cancer ([id number]) Laryngeal ca ncer (C32.9) Activeconfirmed Vital Signs Weight 158 lbs 09/03/2025 Height 65 in 09/03/2025 Blood pressure systolic 138 mm Hg 09/03/20 25 Blood pressure diastolic 82 mm Hg 025 BMI 26.29 kg/m2 09/03/2025 Encounters Encounter Location Date Provider Diagnosis [facility] [address] [place] [address] 09/03/2025 Maldonado Crouch Acute non-recurrent sinusitis, unspecified [...] vaporizer to help keep the drainage moist. Tkfl-jax-ljghbob Nasal Saline may help the stuffy and runny nose. Use Ibuprofen and or Tylenol as needed for fever, chills, body aches or pain. Children 5 years old should not be given bxnp-bkj-fzgdatd cough and cold medications such as guaifenesin and dextromethorphan. If you're over age 5, you may try ijjr-hft-ishynwm cold medications such as guaifenesin and dextromethorphan, [...] vaporizer to help keep the drainage moist. Zwrd-pxr-dbmtkvg Nasal Saline may help the stuffy and runny nose. Use Ibuprofen and or Tylenol as needed for fever, chills, body aches or pain. Children 5 years old should not be given jrzi-dsy-bqpcbaq cough and cold medications such as guaifenesin and dextromethorphan. If you're over age 5, you may try bswc-rzi-taazuwq cold medications such as guaifenesin and dextromethorphan, [...] * Carson NOLANDOB:[birth year] (69 yo M)Acc No.[id number]:09/03/2025 UNLOCKED PROGRESS NOTE Progress Note Patient: Dominguez ZAMUDIO Carson Chilel :?Bird Crouch ([facility]), MDDOB:1955???Age: 69 Y???Sex:MaleDate:09/03/2025Phone:[phone]:[address] [facility], [id number] In:08:09 AM ESTCheck Out:08:48 AM EST Subjective: * Chief Complaints: * 1 . Coughing, Headache. 2. Has been ongoing for months. * HPI: ???General:? Just finished ab yesterday [...] HPI for details.?Cardiovascular:?Edema?denies.?Palpitations?denies.?Respiratory:?Chest pain?denies.?Cough?denies.?Wheezing denies.?Gastrointestinal:?Abdominal pain?denies.?Nausea?denies.?Vomiting?denies.? * Medical History: C losed fracture of distal end of fibula, unspecified fracture morphology, unspecified laterality, initial encounter, Fracture right maxillary sinus, Alcohol abuse, Frequent falls, Leukopenia, Malnutrition, Other fracture of upper and lower end of right fibula, subsequent encounter for closed fracture with routine healing, Maxillary fracture, right side, subsequent encounter for fracture with routine healing, History of tongue cancer, Dysphagia. * Surgical History: F eeding tube placement at one time . * Hospitalization/Major Diagno stic Procedure: F alls 07/06/23, Broken Right Ankle 07/2023. * Family History: F ather: , diagnosed [...] past year??No ?Points?0 ?Interpretation?Negative * Medications: T aking Tamsulosin HCl 0.4 MG Capsule TAKE 2 CAPSULES BY MOUTH DAILY , Taking Viagra(Sildenafil Citrate) 100 MG Tablet 1 tablet as needed Orally Once a day , Discontinued Diflucan 100 MG Tablet 1 tablet Orally daily , Discontinued levoFLOXacin 750 MG Tablet 1 tablet Orally Once a day , Discontinued predniSONE 20 MG Tablet 3 tablets Orally Once a day , Medication List reviewed and reconciled with the patient * Allergies: N .K.D.A. Objective: * Vitals: W t:158lbs, Ht: 65 [...] vaporizer to help keep the drainage moist. Dkhb-jcb-vhtxknl Nasal Saline may help the stuffy and runny nose. Use Ibuprofen and or Tylenol as needed for fever, chills, body aches or pain. Children 5 years old should notbe given ramx-ldf-zektpwd cough and cold medications such as guaifenesin and dextromethorphan. If you're over age 5, you may try pzbh-pgx-trslkjs cold medications such as guaifenesin and dextromethorphan, [...] CON4.?Laryngeal cancer?Imaging: MRI BRAIN WO CON * Preventive Medicine: ??Screenings/Counseling:?BMI ACTION PLAN?Above Normal BMI Follow-up?Dietary management education, guidance, and counseling * Follow Up: 3 -5 days if not improving * * Electronic signature of Maldonado Crouch MD, [id number] on 09/04/2025 at 06:58 AM EDT Sign off status: PendingVisit Status:?CHK (Check Out) * Provider: May Crouch ([facility])MD Date: 1 Generated for Printing/Faxing/eTransmitting on:?09/04/2025 06:58 [...]
--- OUTSIDE RECORDS SUMMARY | 2025-09-03 06:54 | XMS_ITS | Clinical Summary ---
Author Organization [facility] Address [address] [place] [address] Care Team Providers Care Optical Sales Associate Name Role Phone Bidr Crouch MD Primary Care Provider [phone] Allergies No known active allergies Medications MedicationSigDispense QuantityRefillsLast FilledStart DateEnd DateStatus Pediatric Multivitamins-Fl (MultiVitamin + Fluoride) 0.25 MG chewable tablet Active calcium carbonate 1250 MG/5ML Take 1,250 mg by mouth in the morning and 1,250 mg at noon and 1,250 mg in the evening. Take with meals.Active Lactobacillus (FLORANEX PO) Active potassium chloride CR (KLOR-CON) 20 MEQ ER tablet Take 20 mEq by mouth in the morning and 20 mEq before bedtime.Active magnesium oxide (Mag-Ox) 400 mg tablet Take 400 mg by mouth DailyActive nicotine (Nicoderm, Step 1) 21 MG/24HR patch Place 1 patch on the skin 1 (one) time each day at the same timeActive omeprazole (PriLOSEC) [address] capsule Take 40 mg by mouth in the morning. Take before meals.Active thiamine (Vitamin B-1) 100 MG tablet Take 100 mg by mouth DailyActive cefdinir (Omnicef) 300 MG capsule Take 300 mg by mouth in the morning and 300 mg before bedtime.Active Multiple Vitamin (multivitamin) capsule Take 1 capsule by mouth DailyActive Diflucan 100 MG tablet 1 (one) time each day at the same time5Active levoFLOXacin (Levaquin) 750 MG tablet Take 1 tablet by mouth DailyActive predniSONE (Deltasone) 10 MG tablet 5 TABS DAILY X3 DAYS, 4 TABS X3 DAYS, 3 TABS X3 DAYS, 2 TABS X3 DAYS, 1 TAB X3 DAYS, 1/2 TAB X4 DAYS07/23/2025tive Active Problems ProblemNoted DateDiagnosed DateAlcohol abuse08/28/2025lcoholic polyneuropathy 08/28/20257571Wmcejyzckz03/22/2025rthropathy associated with neurological disorder 08/28/2025hronic hepatitis 08/28/2025losed fracture of ankle08/28/2025losed fracture of distal end of right alxhky4508/28/2025losed fracture of upper end of etimla4908/28/2025OPD (chronic obstructive pulmonary disease)08/28/2025 Overview (08/28/2025): COPD UNSPECIFIED.This condition was first identified on :2025-07-17 ,Rendering provider NPI :[id number] Frpejkcu86/22/3506Qxagkedbq23/22/2025Erectile iqwxluqqdlt56/22/2025Facial fhngazfi89/22/1606Grvxirpwecd29/22/2025Opioid abuse08/28/2025 Overview (08/28/2025): OPIOID ABUSE UNCOMPLICATED ,Rendering provider NPI :[id number] Rbqrgtwdpaij19/22/2025Poisoning by unspecified narcotics, accidental (unintentional), initial daxefwvhw44/22/2025 Overview (08/28/2025): POISON UNS NARCOTIC ACC INITIAL ENC.This condition was first identified on :2024-02-24 Recurrent falls08/28/2025Solitary pulmonary tvmuyp7808/28/2025Unsteady gait 08/28/2025losed right maxillary psuahcmj84/13/2023enign prostatic hyperplasia without urinary vcsmrhsmuta93/15/2023urrent lbvsmc0206/21/2023Hoarse voice qyoocjl7306/21/20234622Hpnoxlgelney35/11/2023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/ Overview (06/21/2023): Diagnosed 12/27/17. T4a N1 Mo SCCA right tongue base. Radiation completed. 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 ndcsqps5702/27/2018Severe protein-calorie malnutrition (HHS-HCC)02/27/2018 Overview (06/21/2023): 17% unintentional weight loss in one month (02/27/18) Signed by: Selam Bullard RDN, LD [phone] Resolved Problems ProblemNoted DateDiagnosed DateResolved DateHistory of tongue daobiz2306/21/2023 06/21/20234523Bmtkmqmw19 Encounters DateTypeDepartmentCare JbaeMzrxwmaliik40/22/2025 11:20 AM EDTOffice Visit [facility] [place] [facility] [address] [facility] [address] [place] [address] Kelly Pulliam MD Non-seasonal allergic rhinitis due to other allergic trigger (Primary Dx); Chronic sinusitis, unspecified location; Tongue cancer (HCC); Bilateral impacted cerumen; Chronic pansinusitis; Chronic maxillary dtqfycsew77/22/2025amboo flowsheet [facility] [address] [facility] [address] [place] [address] Kelly Pulliam MD 08/28/2025Travelfrom Last 3 Months Family History Medical HistoryRelationNameCommentsStrokeDaughterDiabetesFatherDiabetesMother StrokeMotherMelanomaNeg HxRelationNameStatusCommentsDaughterAliveFatherDeceased MotherDeceased Social History Tobacco UseTypesPacks/DayYears UsedDateSmoking Tobacco: Every DayCigarettes0.5 53.8Started: 1972Smokeless Tobacco: Never Tobacco Cessation:Ready to Q uit: Not Asked; Counseling Given: Not Answered Comments:Smokes 6-10 cigarettes/day Alcohol UseStandard Drinks/WeekCommentsYes8 (1 standard drink = 0.6 oz pure alcohol)Caffeine >4 cups/daySex and Gender InformationValueDate RecordedSex Assigned at BirthNot on fileLegal SfcImpu2201/19/2023 8:14 PM EDTGender Identity Not on fileSexual OrientationNot on file Last Filed Vital Signs Vital SignReadingTime TakenCommentsBlood Qsulnsdm305/9809/ 8:53 AM EDT Pulse--Temperature--Respiratory Rate--Oxygen Saturation--Inhaled Oxygen Concentration--Ytmcew02.9 kg (143 lb)08/28/2025 11:16 AM GPOKgpkva525.1 cm (5' 5 )08/28/2025 11:16 AM EDTBody Mass Index23.81 11:16 AM EDT Plan of Treatment DateTypeDepartmentCare Team (Latest Contact Info)Fmrnzblfoqi27/01/2025 11:20 AM ESTOffice Visit [facility] [place] [facility] [address] [facility] [address] [place] [phone] Kelly Pulliam MD [address] [facility] [address] [place] [address] 08/27/2026 11:20 AM EDTOffice Visit [facility] [place] [facility] [address] [facility] [address] [place] [phone] Kelly Pulliam MD [address] [facility] [address] [place] [address] Insurance Care Teams Team MemberRelationshipSpecialtyStart DateEnd Bird Crouch MD [address] [place] [address] PCP - GeneralFamily Lcijqakv92/16/25
--- OUTSIDE RECORDS SUMMARY | 2025-09-03 06:54 | XMS_ITS ---
Author Organization [facility] Address [address] [place], [place] [id number] Care Team Providers Care Shop Mechanic Name Role Phone Bird Crouch MD Primary Care Provider [phone] Active Problems ProblemNoted DateDiagnosed DateMalignant neoplasm of head, face and neck 1Lung xiivuex3712/18/20202969Nvonlvthxxsfnkoj57/18/2018Mucositis due to radiation puaeqpo9302/27/2018Severe protein-calorie zbnofgnfdkls02/23/2018 Overview (02/27/2018): 17% unintentional weight loss in one month (02/27/18) Signed by: Selam Bullard RDN, 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Hoarse voice quality Current Treatment and Therapy Plans No current plan information found. Past Treatment and Therapy Plans Plan NameStart DateDiscontinue DateTreatment MedicationsDiscontinue ReasonPlan ProviderCyclesNS 1000ML IV DURING VISITNo medications scheduled.Piero Ochoa E2 of 2 cycles startedPlan NameStart Date Discontinue DateTreatment MedicationsDiscontinue ReasonPlan ProviderCycles CISPLATIN 40 D1,8,15,22 - Q28/* CISplatin iv piggyback or iv infusion * fosaprepitant (EMEND) * fosaprepitant iv piggyback in NaCl 0.9% (EMEND) Piero Ochoa E2 of 2 cycles started
--- OUTSIDE RECORDS SUMMARY | 2025-09-03 06:55 | XMS_ITS | Encounter Summary ---
Author Organization [facility] Address [address] [place] [address] Care Team Providers Care Ssrs Report Developer Name Role Phone Bird Crouch MD Primary Care Provider [phone] Encounter Details DateTypeDepartmentCare Team (Latest Contact Info)Cihfhhfylbf01/22/2025amboo flowsheet [facility] [place] [facility] [address] [facility] [address] [place] [address] Kelly Pulliam MD [address] [facility] [address] [place], [place] [id number] Social History Tobacco UseTypesPacks/DayYears UsedDateSmoking Tobacco: Every DayCigarettes0.5 53.8Started: 1972Smokeless Tobacco: Never Comments:Smokes 6-10 cigaret yoko/day Alcohol UseStandard Drinks/WeekCommentsYes8 (1 standard drink = 0.6 oz pure alcohol)Caffeine >4 cups/daySex and Gender InformationValueDate RecordedSex Assigned at BirthNot on fileLegal CniOhpb3201/19/2023 8:14 PM EDTGender Identity Not on fileSexual OrientationNot on filedocumented as of this encounter Plan of Treatment DateTypeDepartmentCare Team (Latest Contact Info)Faugfucturs67/01/2025 11:20 AM ESTOffice Visit [facility] [place] [facility] [address] [facility] [address] [place] [address] Kelly Pulliam MD [address] [facility] [address] [place], [place] [phone] 08/27/2026 11:20 AM EDTOffice Visit [facility] [place] [facility] [address] [facility] [address] [place] [address] Kelly Pulliam MD [address] [facility] [address] [place] [address] documented as of this encounter Visit Diagnoses Not on filedocumented in this encounter Care Teams Team MemberRelationshipSpecialtyStart DateEnd Date Bird Crouch MD [address] [place] [phone] PCP - GeneralFamily Exdkmgby36/16/25documented as of this encounter
--- OUTSIDE RECORDS SUMMARY | 2025-09-03 06:55 | XMS_ITS | Patient Health Record ---
Author Organization [facility] in [place] Address [address] [place] [address] Care Team Providers Care Catheter Builder Name Role Phone Maldonado De La Cruz Primary Care Provider Allergies No Known Allergies Results Component Value Reference Range Notes Blood Culture 1 Reviewed date:08/18/2025 08:34:10 PM Interpretation: Performing Lab: Notes/Report: [facility] , Blood Culture 1 See Below For Report Blood Culture 1 NG5D NO GROWTH AT 5 DAYS.^NO GROWTH AT 5 DAYS. Performing Lab:see noteML - [facility] LBXR chest 2V Reviewed date:08/12/2025 02:32:35 PM Interpretation: Performing Lab: Notes/Report: Source Facility: [place] [id number] [facility] [place] [id number] XRay Report Signed Patient: ADELFO NOLAN MR#: [id number] : 1955 Acct:[id number] Age/Sex: 69 / M ADM Date: 08/12/25 Loc: LAB Attending Dr: Elba De La Cruz M.D. Ordering Physician: Elba De La Cruz M.D. Date of Service: 08/12/25 Procedure(s): XR chest 2V Accession Number(s): [id number] cc: Elba De La Cruz M.D. [place] [address] Patient Name: ADELFO NOLAN MRN: [id number] date: 1955 Sex: M Assigned Patient Location: LAB Current Patient Location: LAB Accession/Order Number: [id number] Exam Date: 08/12/2025 12:10 Report Date: 08/12/2025 13:30 At the request of: ELBA DE LA CRUZ MD Procedure: XR chest 2V Chest 2 views CLINICAL HISTORY: Mold Exposure COMPARISON: None FINDINGS: XR/XR chest 2V IMPRESSION: NO ACUTE CARDIOPULMONARY ABNORMALITY. Impression dictated by: Bubba Tay Jr., D.O. 08/12/2025 1:30 PM Dictation Location: [place] [address] Electronically authenticated by: [id number] Y Date: 08/12/2025 13:30 Dictated By: Bubba Tay M.D. Signed By: 08/12/251331 DD/ 29 TD/TT: Recreation Clerk:Result 1 Reviewed date:08/20/2025 02:08:58 PM Interpretation: Performing Lab: Notes/Report: [facility] ,Result 1See Below For Report Few gram positive cocci Result 1 Performing Lab:see noteLC - [facility] LBResult 2 Reviewed date:08/20/2025 02:08:58 PM Interpretation: Performing Lab: Notes/Report: [facility] ,Result 2See Below For Report Few gram negative rods. 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 Gram Stain Evaluation This specimen is of good quality and is acceptable for routine Performing Lab:see note - [facility] LBLower Respiratory Culture Reviewed date:08/20/2025 02:08:58 PM Interpretation: Performing Lab: Notes/Report: [facility] ,Lower Respiratory CultureSee Below For Report Tobramycin Gentamicin Cefepime Ceftriaxone Tobramycin S F Organism: 8.3 Cefepime S F Cefazolin Tobramycin Lower Respiratory Culture O:KLEBPN Cefoxitin Isolated Cefoxitin Piperacillin/Tazobactam AMOXICILLIN/CLAVULANIC ACID Isolated Organism: 8.1 Trimethoprim/Sulfamethoxazole Ertapenem Gentamicin S F Ertapenem S F Cefepime S F Cefpodoxime Trimethoprim/Sulfamethoxazole S F Antibiotic Interpretation JORGE Status Levofloxacin S F Ampicillin R F Tetracycline WILL FOLLOW Ciprofloxacin Isolated Ertapenem Tetracycline S F Ampicillin Cefpodoxime Levofloxacin Tetracycline Piperacillin/Tazobactam S F AMOXICILLIN/CLAVULANIC ACID R F Cefoxitin S F Cefpodoxime S F Meropenem Cefoxitin R F Cefpodoxime S F Antibiotic Interpretation JORGE Status Ceftriaxone S F O:ENTASB Cefepime AMOXICILLIN/CLAVULANIC ACID Tetracycline S F O:GNR Meropenem S F Ertapenem S F Ciprofloxacin S F Cefazolin S F Trimethoprim/Sulfamethoxazole Gentamicin Gentamicin S F Levofloxacin S F Tobramycin S F Trimethoprim/Sulfamethoxazole S F Levofloxacin AMOXICILLIN/CLAVULANIC ACID S F Lower Respiratory CultureOrganism: Gram negative genoveva : Tobramycin Gentamicin Cefepime Ceftriaxone Tobramycin S F Organism: 8.3 Cefepime S F Cefazolin Tobramycin Lower Respiratory Culture O:KLEBPN Cefoxitin Isolated Cefoxitin Piperacillin/Tazobactam AMOXICILLIN/CLAVULANIC ACID Isolated Organism: 8.1 Trimethoprim/Sulfamethoxazole Ertapenem Gentamicin S F Ertapenem S F Cefepime S F Cefpodoxime Trimethoprim/Sulfamethoxazole S F Antibiotic Interpretation JORGE Status Levofloxacin S F Ampicillin R F Tetracycline WILL FOLLOW Ciprofloxacin Isolated Ertapenem Tetracycline S F Ampicillin Cefpodoxime Levofloxacin Tetracycline Piperacillin/Tazobactam S F AMOXICILLIN/CLAVULANIC ACID R F Cefoxitin S F Cefpodoxime S F Meropenem Cefoxitin R F Cefpodoxime S F Antibiotic Interpretation JORGE Status Ceftriaxone S F O:ENTASB Cefepime AMOXICILLIN/CLAVULANIC ACID Tetracycline S F O:GNR Meropenem S F Ertapenem S F Ciprofloxacin S F Cefazolin S F Trimethoprim/Sulfamethoxazole Gentamicin Gentamicin S F Levofloxacin S F Tobramycin S F Trimethoprim/Sulfamethoxazole S F Levofloxacin AMOXICILLIN/CLAVULANIC ACID S F Lower Respiratory Culture*ABNORMAL* Tobramycin Gentamicin Cefepime Ceftriaxone Tobramycin S F Organism: 8.3 Cefepime S F Cefazolin Tobramycin Lower Respiratory Culture O:KLEBPN Cefoxitin Isolated Cefoxitin Piperacillin/Tazobactam AMOXICILLIN/CLAVULANIC ACID Isolated Organism: 8.1 Trimethoprim/Sulfamethoxazole Ertapenem Gentamicin S F Ertapenem S F Cefepime S F Cefpodoxime Trimethoprim/Sulfamethoxazole S F Antibiotic Interpretation JORGE Status Levofloxacin S F Ampicillin R F Tetracycline WILL FOLLOW Ciprofloxacin Isolated Ertapenem Tetracycline S F Ampicillin Cefpodoxime Levofloxacin Tetracycline Piperacillin/Tazobactam S F AMOXICILLIN/CLAVULANIC ACID R F Cefoxitin S F Cefpodoxime S F Meropenem Cefoxitin R F Cefpodoxime S F Antibiotic Interpretation JORGE Status Ceftriaxone S F O:ENTASB Cefepime AMOXICILLIN/CLAVULANIC ACID Tetracycline S F O:GNR Meropenem S F Ertapenem S F Ciprofloxacin S F Cefazolin S F Trimethoprim/Sulfamethoxazole Gentamicin Gentamicin S F Levofloxacin S F Tobramycin S F Trimethoprim/Sulfamethoxazole S F Levofloxacin AMOXICILLIN/CLAVULANIC ACID S F Lower Respiratory CultureHeavy growth Tobramycin Gentamicin Cefepime Ceftriaxone Tobramycin S F Organism: 8.3 Cefepime S F Cefazolin Tobramycin Lower Respiratory Culture O:KLEBPN Cefoxitin Isolated Cefoxitin Piperacillin/Tazobactam AMOXICILLIN/CLAVULANIC ACID Isolated Organism: 8.1 Trimethoprim/Sulfamethoxazole Ertapenem Gentamicin S F Ertapenem S F Cefepime S F Cefpodoxime Trimethoprim/Sulfamethoxazole S F Antibiotic Interpretation JORGE Status Levofloxacin S F Ampicillin R F Tetracycline WILL FOLLOW Ciprofloxacin Isolated Ertapenem Tetracycline S F Ampicillin Cefpodoxime Levofloxacin Tetracycline Piperacillin/Tazobactam S F AMOXICILLIN/CLAVULANIC ACID R F Cefoxitin S F Cefpodoxime S F Meropen[place] Cefoxitin R F Cefpodoxime S F Antibiotic Interpretation JORGE Status Ceftriaxone S F O:ENTASB Cefepime AMOXICILLIN/CLAVULANIC ACID Tetracycline S F O:GNR [place]open[place] S F Ertapenem S F Ciprofloxacin S F Cefazolin S F Trimethoprim/Sulfamethoxazole Gentamicin Gentamicin S F Levofloxacin S F Tobramycin S F Trimethoprim/Sulfamethoxazole S F Levofloxacin AMOXICILLIN/CLAVULANIC ACID S F Lower Respiratory CultureGram negative genoveva Tobramycin Gentamicin Cefepime Ceftriaxone Tobramycin S F Organism: 8.3 Cefepime S F Cefazolin Tobramycin Lower Respiratory Culture O:KLEBPN Cefoxitin Isolated Cefoxitin Piperacillin/Tazobactam AMOXICILLIN/CLAVULANIC ACID Isolated Organism: 8.1 Trimethoprim/Sulfamethoxazole Ertapenem Gentamicin S F Ertapenem S F Cefepime S F Cefpodoxime Trimethoprim/Sulfamethoxazole S F Antibiotic Interpretation JORGE Status Levofloxacin S F Ampicillin R F Tetracycline WILL FOLLOW Ciprofloxacin Isolated Ertapenem Tetracycline S F Ampicillin Cefpodoxime Levofloxacin Tetracycline Piperacillin/Tazobactam S F AMOXICILLIN/CLAVULANIC ACID R F Cefoxitin S F Cefpodoxime S F Meropenem Cefoxitin R F Cefpodoxime S F Antibiotic Interpretation JORGE Status Ceftriaxone S F O:ENTASB Cefepime AMOXICILLIN/CLAVULANIC ACID Tetracycline S F O:GNR Meropenem S F Ertapenem S F Ciprofloxacin S F Cefazolin S F Trimethoprim/Sulfamethoxazole Gentamicin Gentamicin S F Levofloxacin S F Tobramycin S F Trimethoprim/Sulfamethoxazole S F Levofloxacin AMOXICILLIN/CLAVULANIC ACID S F Lower Respiratory CultureOrganism: Klebsiella pneumoniae. : Tobramycin Gentamicin Cefepime Ceftriaxone Tobramycin S F Organism: 8.3 Cefepime S F Cefazolin Tobramycin Lower Respiratory Culture O:KLEBPN Cefoxitin Isolated Cefoxitin Piperacillin/Tazobactam AMOXICILLIN/CLAVULANIC ACID Isolated Organism: 8.1 Trimethoprim/Sulfamethoxazole Ertapenem Gentamicin S F Ertapenem S F Cefepime S F Cefpodoxime Trimethoprim/Sulfamethoxazole S F Antibiotic Interpretation JORGE Status Levofloxacin S F Ampicillin R F Tetracycline WILL FOLLOW Ciprofloxacin Isolated Ertapenem Tetracycline S F Ampicillin Cefpodoxime Levofloxacin Tetracycline Piperacillin/Tazobactam S F AMOXICILLIN/CLAVULANIC ACID R F Cefoxitin S F Cefpodoxime S F Meropen[place] Cefoxitin R F Cefpodoxime S F Antibiotic Interpretation JORGE Status Ceftriaxone S F O:ENTASB Cefepime AMOXICILLIN/CLAVULANIC ACID Tetracycline S F O:GNR Meropenem S F Ertapenem S F Ciprofloxacin S F Cefazolin S F Trimethoprim/Sulfamethoxazole Gentamicin Gentamicin S F Levofloxacin S F Tobramycin S F Trimethoprim/Sulfamethoxazole S F Levofloxacin AMOXICILLIN/CLAVULANIC ACID S F Lower Respiratory Culture*ABNORMAL* Tobramycin Gentamicin Cefepime Ceftriaxone Tobramycin S F Organism: 8.3 Cefepime S F Cefazolin Tobramycin Lower Respiratory Culture O:KLEBPN Cefoxitin Isolated Cefoxitin Piperacillin/Tazobactam AMOXICILLIN/CLAVULANIC ACID Isolated Organism: 8.1 Trimethoprim/Sulfamethoxazole Ertapenem Gentamicin S F Ertapenem S F Cefepime S F Cefpodoxime Trimethoprim/Sulfamethoxazole S F Antibiotic Interpretation JORGE Status Levofloxacin S F Ampicillin R F Tetracycline WILL FOLLOW Ciprofloxacin Isolated Ertapenem Tetracycline S F Ampicillin Cefpodoxime Levofloxacin Tetracycline Piperacillin/Tazobactam S F AMOXICILLIN/CLAVULANIC ACID R F Cefoxitin S F Cefpodoxime S F Meropen[place] Cefoxitin R F Cefpodoxime S F Antibiotic Interpretation JORGE Status Ceftriaxone S F O:ENTASB Cefepime AMOXICILLIN/CLAVULANIC ACID Tetracycline S F O:GNR Meropenem S F Ertapenem S F Ciprofloxacin S F Cefazolin S F Trimethoprim/Sulfamethoxazole Gentamicin Gentamicin S F Levofloxacin S F Tobramycin S F Trimethoprim/Sulfamethoxazole S F Levofloxacin AMOXICILLIN/CLAVULANIC ACID S F Lower Respiratory CultureHeavy growth Tobramycin Gentamicin Cefepime Ceftriaxone Tobramycin S F Organism: 8.3 Cefepime S F Cefazolin Tobramycin Lower Respiratory Culture O:KLEBPN Cefoxitin Isolated Cefoxitin Piperacillin/Tazobactam AMOXICILLIN/CLAVULANIC ACID Isolated Organism: 8.1 Trimethoprim/Sulfamethoxazole Ertapenem Gentamicin S F Ertapenem S F Cefepime S F Cefpodoxime Trimethoprim/Sulfamethoxazole S F Antibiotic Interpretation JORGE Status Levofloxacin S F Ampicillin R F Tetracycline WILL FOLLOW Ciprofloxacin Isolated Ertapenem Tetracycline S F Ampicillin Cefpodoxime Levofloxacin Tetracycline Piperacillin/Tazobactam S F AMOXICILLIN/CLAVULANIC ACID R F Cefoxitin S F Cefpodoxime S F Meropenem Cefoxitin R F Cefpodoxime S F Antibiotic Interpretation JORGE Status Ceftriaxone S F O:ENTASB Cefepime AMOXICILLIN/CLAVULANIC ACID Tetracycline S F O:GNR Meropenem S F Ertapenem S F Ciprofloxacin S F Cefazolin S F Trimethoprim/Sulfamethoxazole Gentamicin Gentamicin S F Levofloxacin S F Tobramycin S F Trimethoprim/Sulfamethoxazole S F Levofloxacin AMOXICILLIN/CLAVULANIC ACID S F Lower Respiratory Culture Tobramycin Gentamicin Cefepime Ceftriaxone Tobramycin S F Organism: 8.3 Cefepime S F Cefazolin Tobramycin Lower Respiratory Culture O:KLEBPN Cefoxitin Isolated Cefoxitin Piperacillin/Tazobactam AMOXICILLIN/CLAVULANIC ACID Isolated Organism: 8.1 Trimethoprim/Sulfamethoxazole Ertapenem Gentamicin S F Ertapenem S F Cefepime S F Cefpodoxime Trimethoprim/Sulfamethoxazole S F Antibiotic Interpretation JORGE Status Levofloxacin S F Ampicillin R F Tetracycline WILL FOLLOW Ciprofloxacin Isolated Ertapenem Tetracycline S F Ampicillin Cefpodoxime Levofloxacin Tetracycline Piperacillin/Tazobactam S F AMOXICILLIN/CLAVULANIC ACID R F Cefoxitin S F Cefpodoxime S F Meropenem Cefoxitin R F Cefpodoxime S F Antibiotic Interpretation JORGE Status Ceftriaxone S F O:ENTASB Cefepime AMOXICILLIN/CLAVULANIC ACID Tetracycline S F O:GNR Meropenem S F Ertapenem S F Ciprofloxacin S F Cefazolin S F Trimethoprim/Sulfamethoxazole Gentamicin Gentamicin S F Levofloxacin S F Tobramycin S F Trimethoprim/Sulfamethoxazole S F Levofloxacin AMOXICILLIN/CLAVULANIC ACID S F Lower Respiratory CultureGrowth observed. Further testing to rule out possible pathogen(s) Tobramycin Gentamicin Cefepime Ceftriaxone Tobramycin S F Organism: 8.3 Cefepime S F Cefazolin Tobramycin Lower Respiratory Culture O:KLEBPN Cefoxitin Isolated Cefoxitin Piperacillin/Tazobactam AMOXICILLIN/CLAVULANIC ACID Isolated Organism: 8.1 Trimethoprim/Sulfamethoxazole Ertapenem Gentamicin S F Ertapenem S F Cefepime S F Cefpodoxime Trimethoprim/Sulfamethoxazole S F Antibiotic Interpretation JORGE Status Levofloxacin S F Ampicillin R F Tetracycline WILL FOLLOW Ciprofloxacin Isolated Ertapenem Tetracycline S F Ampicillin Cefpodoxime Levofloxacin Tetracycline Piperacillin/Tazobactam S F AMOXICILLIN/CLAVULANIC ACID R F Cefoxitin S F Cefpodoxime S F Meropenem Cefoxitin R F Cefpodoxime S F Antibiotic Interpretation JORGE Status Ceftriaxone S F O:ENTASB Cefepime AMOXICILLIN/CLAVULANIC ACID Tetracycline S F O:GNR Meropenem S F Ertapenem S F Ciprofloxacin S F Cefazolin S F Trimethoprim/Sulfamethoxazole Gentamicin Gentamicin S F Levofloxacin S F Tobramycin S F Trimethoprim/Sulfamethoxazole S F Levofloxacin AMOXICILLIN/CLAVULANIC ACID S F Lower Respiratory Cultureis in progress. Tobramycin Gentamicin Cefepime Ceftriaxone Tobramycin S F Organism: 8.3 Cefepime S F Cefazolin Tobramycin Lower Respiratory Culture O:KLEBPN Cefoxitin Isolated Cefoxitin Piperacillin/Tazobactam AMOXICILLIN/CLAVULANIC ACID Isolated Organism: 8.1 Trimethoprim/Sulfamethoxazole Ertapenem Gentamicin S F Ertapenem S F Cefepime S F Cefpodoxime Trimethoprim/Sulfamethoxazole S F Antibiotic Interpretation JORGE Status Levofloxacin S F Ampicillin R F Tetracycline WILL FOLLOW Ciprofloxacin Isolated Ertapenem Tetracycline S F Ampicillin Cefpodoxime Levofloxacin Tetracycline Piperacillin/Tazobactam S F AMOXICILLIN/CLAVULANIC ACID R F Cefoxitin S F Cefpodoxime S F Meropenem Cefoxitin R F Cefpodoxime S F Antibiotic Interpretation JORGE Status Ceftriaxone S F O:ENTASB Cefepime AMOXICILLIN/CLAVULANIC ACID Tetracycline S F O:GNR Meropenem S F Ertapenem S F Ciprofloxacin S F Cefazolin S F Trimethoprim/Sulfamethoxazole Gentamicin Gentamicin S F Levofloxacin S F Tobramycin S F Trimethoprim/Sulfamethoxazole S F Levofloxacin AMOXICILLIN/CLAVULANIC ACID S F Lower Respiratory CultureKlebsiella pneumoniae. Tobramycin Gentamicin Cefepime Ceftriaxone Tobramycin S F Organism: 8.3 Cefepime S F Cefazolin Tobramycin Lower Respiratory Culture O:KLEBPN Cefoxitin Isolated Cefoxitin Piperacillin/Tazobactam AMOXICILLIN/CLAVULANIC ACID Isolated Organism: 8.1 Trimethoprim/Sulfamethoxazole Ertapenem Gentamicin S F Ertapenem S F Cefepime S F Cefpodoxime Trimethoprim/Sulfamethoxazole S F Antibiotic Interpretation JORGE Status Levofloxacin S F Ampicillin R F Tetracycline WILL FOLLOW Ciprofloxacin Isolated Ertapenem Tetracycline S F Ampicillin Cefpodoxime Levofloxacin Tetracycline Piperacillin/Tazobactam S F AMOXICILLIN/CLAVULANIC ACID R F Cefoxitin S F Cefpodoxime S F Meropenem Cefoxitin R F Cefpodoxime S F Antibiotic Interpretation JORGE Status Ceftriaxone S F O:ENTASB Cefepime AMOXICILLIN/CLAVULANIC ACID Tetracycline S F O:GNR Meropenem S F Ertapenem S F Ciprofloxacin S F Cefazolin S F Trimethoprim/Sulfamethoxazole Gentamicin Gentamicin S F Levofloxacin S F Tobramycin S F Trimethoprim/Sulfamethoxazole S F Levofloxacin AMOXICILLIN/CLAVULANIC ACID S F Lower Respiratory CultureOrganism: Klebsiella pneumoniae. : Tobramycin Gentamicin Cefepime Ceftriaxone Tobramycin S F Organism: 8.3 Cefepime S F Cefazolin Tobramycin Lower Respiratory Culture O:KLEBPN Cefoxitin Isolated Cefoxitin Piperacillin/Tazobactam AMOXICILLIN/CLAVULANIC ACID Isolated Organism: 8.1 Trimethoprim/Sulfamethoxazole Ertapenem Gentamicin S F Ertapenem S F Cefepime S F Cefpodoxime Trimethoprim/Sulfamethoxazole S F Antibiotic Interpretation JORGE Status Levofloxacin S F Ampicillin R F Tetracycline WILL FOLLOW Ciprofloxacin Isolated Ertapenem Tetracycline S F Ampicillin Cefpodoxime Levofloxacin Tetracycline Piperacillin/Tazobactam S F AMOXICILLIN/CLAVULANIC ACID R F Cefoxitin S F Cefpodoxime S F Meropenem Cefoxitin R F Cefpodoxime S F Antibiotic Interpretation JORGE Status Ceftriaxone S F O:ENTASB Cefepime AMOXICILLIN/CLAVULANIC ACID Tetracycline S F O:GNR Meropenem S F Ertapenem S F Ciprofloxacin S F Cefazolin S F Trimethoprim/Sulfamethoxazole Gentamicin Gentamicin S F Levofloxacin S F Tobramycin S F Trimethoprim/Sulfamethoxazole S F Levofloxacin AMOXICILLIN/CLAVULANIC ACID S F Lower Respiratory Culture*ABNORMAL* Tobramycin Gentamicin Cefepime Ceftriaxone Tobramycin S F Organism: 8.3 Cefepime S F Cefazolin Tobramycin Lower Respiratory Culture O:KLEBPN Cefoxitin Isolated Cefoxitin Piperacillin/Tazobactam AMOXICILLIN/CLAVULANIC ACID Isolated Organism: 8.1 Trimethoprim/Sulfamethoxazole Ertapenem Gentamicin S F Ertapenem S F Cefepime S F Cefpodoxime Trimethoprim/Sulfamethoxazole S F Antibiotic Interpretation JORGE Status Levofloxacin S F Ampicillin R F Tetracycline WILL FOLLOW Ciprofloxacin Isolated Ertapenem Tetracycline S F Ampicillin Cefpodoxime Levofloxacin Tetracycline Piperacillin/Tazobactam S F AMOXICILLIN/CLAVULANIC ACID R F Cefoxitin S F Cefpodoxime S F Meropenem Cefoxitin R F Cefpodoxime S F Antibiotic Interpretation JORGE Status Ceftriaxone S F O:ENTASB Cefepime AMOXICILLIN/CLAVULANIC ACID Tetracycline S F O:GNR Meropenem S F Ertapenem S F Ciprofloxacin S F Cefazolin S F Trimethoprim/Sulfamethoxazole Gentamicin Gentamicin S F Levofloxacin S F Tobramycin S F Trimethoprim/Sulfamethoxazole S F Levofloxacin AMOXICILLIN/CLAVULANIC ACID S F Lower Respiratory CultureHeavy growth Tobramycin Gentamicin Cefepime Ceftriaxone Tobramycin S F Organism: 8.3 Cefepime S F Cefazolin Tobramycin Lower Respiratory Culture O:KLEBPN Cefoxitin Isolated Cefoxitin Piperacillin/Tazobactam AMOXICILLIN/CLAVULANIC ACID Isolated Organism: 8.1 Trimethoprim/Sulfamethoxazole Ertapenem Gentamicin S F Ertapenem S F Cefepime S F Cefpodoxime Trimethoprim/Sulfamethoxazole S F Antibiotic Interpretation JORGE Status Levofloxacin S F Ampicillin R F Tetracycline WILL FOLLOW Ciprofloxacin Isolated Ertapenem Tetracycline S F Ampicillin Cefpodoxime Levofloxacin Tetracycline Piperacillin/Tazobactam S F AMOXICILLIN/CLAVULANIC ACID R F Cefoxitin S F Cefpodoxime S F Meropenem Cefoxitin R F Cefpodoxime S F Antibiotic Interpretation JORGE Status Ceftriaxone S F O:ENTASB Cefepime AMOXICILLIN/CLAVULANIC ACID Tetracycline S F O:GNR Meropenem S F Ertapenem S F Ciprofloxacin S F Cefazolin S F Trimethoprim/Sulfamethoxazole Gentamicin Gentamicin S F Levofloxacin S F Tobramycin S F Trimethoprim/Sulfamethoxazole S F Levofloxacin AMOXICILLIN/CLAVULANIC ACID S F Lower Respiratory CultureOrganism: Enterobacter asburiae : Tobramycin Gentamicin Cefepime Ceftriaxone Tobramycin S F Organism: 8.3 Cefepime S F Cefazolin Tobramycin Lower Respiratory Culture O:KLEBPN Cefoxitin Isolated Cefoxitin Piperacillin/Tazobactam AMOXICILLIN/CLAVULANIC ACID Isolated Organism: 8.1 Trimethoprim/Sulfamethoxazole Ertapenem Gentamicin S F Ertapenem S F Cefepime S F Cefpodoxime Trimethoprim/Sulfamethoxazole S F Antibiotic Interpretation JORGE Status Levofloxacin S F Ampicillin R F Tetracycline WILL FOLLOW Ciprofloxacin Isolated Ertapenem Tetracycline S F Ampicillin Cefpodoxime Levofloxacin Tetracycline Piperacillin/Tazobactam S F AMOXICILLIN/CLAVULANIC ACID R F Cefoxitin S F Cefpodoxime S F Meropen[place] Cefoxitin R F Cefpodoxime S F Antibiotic Interpretation JORGE Status Ceftriaxone S F O:ENTASB Cefepime AMOXICILLIN/CLAVULANIC ACID Tetracycline S F O:GNR Meropenem S F Ertapenem S F Ciprofloxacin S F Cefazolin S F Trimethoprim/Sulfamethoxazole Gentamicin Gentamicin S F Levofloxacin S F Tobramycin S F Trimethoprim/Sulfamethoxazole S F Levofloxacin AMOXICILLIN/CLAVULANIC ACID S F Lower Respiratory Culture*ABNORMAL* Tobramycin Gentamicin Cefepime Ceftriaxone Tobramycin S F Organism: 8.3 Cefepime S F Cefazolin Tobramycin Lower Respiratory Culture O:KLEBPN Cefoxitin Isolated Cefoxitin Piperacillin/Tazobactam AMOXICILLIN/CLAVULANIC ACID Isolated Organism: 8.1 Trimethoprim/Sulfamethoxazole Ertapenem Gentamicin S F Ertapenem S F Cefepime S F Cefpodoxime Trimethoprim/Sulfamethoxazole S F Antibiotic Interpretation JORGE Status Levofloxacin S F Ampicillin R F Tetracycline WILL FOLLOW Ciprofloxacin Isolated Ertapenem Tetracycline S F Ampicillin Cefpodoxime Levofloxacin Tetracycline Piperacillin/Tazobactam S F AMOXICILLIN/CLAVULANIC ACID R F Cefoxitin S F Cefpodoxime S F Meropenem Cefoxitin R F Cefpodoxime S F Antibiotic Interpretation JORGE Status Ceftriaxone S F O:ENTASB Cefepime AMOXICILLIN/CLAVULANIC ACID Tetracycline S F O:GNR Meropenem S F Ertapenem S F Ciprofloxacin S F Cefazolin S F Trimethoprim/Sulfamethoxazole Gentamicin Gentamicin S F Levofloxacin S F Tobramycin S F Trimethoprim/Sulfamethoxazole S F Levofloxacin AMOXICILLIN/CLAVULANIC ACID S F Lower Respiratory CultureSome Enterobacterales may develop resistance during Tobramycin Gentamicin Cefepime Ceftriaxone Tobramycin S F Organism: 8.3 Cefepime S F Cefazolin Tobramycin Lower Respiratory Culture O:KLEBPN Cefoxitin Isolated Cefoxitin Piperacillin/Tazobactam AMOXICILLIN/CLAVULANIC ACID Isolated Organism: 8.1 Trimethoprim/Sulfamethoxazole Ertapenem Gentamicin S F Ertapenem S F Cefepime S F Cefpodoxime Trimethoprim/Sulfamethoxazole S F Antibiotic Interpretation JORGE Status Levofloxacin S F Ampicillin R F Tetracycline WILL FOLLOW Ciprofloxacin Isolated Ertapenem Tetracycline S F Ampicillin Cefpodoxime Levofloxacin Tetracycline Piperacillin/Tazobactam S F AMOXICILLIN/CLAVULANIC ACID R F Cefoxitin S F Cefpodoxime S F Meropenem Cefoxitin R F Cefpodoxime S F Antibiotic Interpretation JORGE Status Ceftriaxone S F O:ENTASB Cefepime AMOXICILLIN/CLAVULANIC ACID Tetracycline S F O:GNR Meropenem S F Ertapenem S F Ciprofloxacin S F Cefazolin S F Trimethoprim/Sulfamethoxazole Gentamicin Gentamicin S F Levofloxacin S F Tobramycin S F Trimethoprim/Sulfamethoxazole S F Levofloxacin AMOXICILLIN/CLAVULANIC ACID S F Lower Respiratory Culturetherapy with third-generation cephalosporins. This Tobramycin Gentamicin Cefepime Ceftriaxone Tobramycin S F Organism: 8.3 Cefepime S F Cefazolin Tobramycin Lower Respiratory Culture O:KLEBPN Cefoxitin Isolated Cefoxitin Piperacillin/Tazobactam AMOXICILLIN/CLAVULANIC ACID Isolated Organism: 8.1 Trimethoprim/Sulfamethoxazole Ertapenem Gentamicin S F Ertapenem S F Cefepime S F Cefpodoxime Trimethoprim/Sulfamethoxazole S F Antibiotic Interpretation JORGE Status Levofloxacin S F Ampicillin R F Tetracycline WILL FOLLOW Ciprofloxacin Isolated Ertapenem Tetracycline S F Ampicillin Cefpodoxime Levofloxacin Tetracycline Piperacillin/Tazobactam S F AMOXICILLIN/CLAVULANIC ACID R F Cefoxitin S F Cefpodoxime S F Meropenem Cefoxitin R F Cefpodoxime S F Antibiotic Interpretation JORGE Status Ceftriaxone S F O:ENTASB Cefepime AMOXICILLIN/CLAVULANIC ACID Tetracycline S F O:GNR Meropenem S F Ertapenem S F Ciprofloxacin S F Cefazolin S F Trimethoprim/Sulfamethoxazole Gentamicin Gentamicin S F Levofloxacin S F Tobramycin S F Trimethoprim/Sulfamethoxazole S F Levofloxacin AMOXICILLIN/CLAVULANIC ACID S F Lower Respiratory Cultureresistance is most commonly seen with Citrobacter Tobramycin Gentamicin Cefepime Ceftriaxone Tobramycin S F Organism: 8.3 Cefepime S F Cefazolin Tobramycin Lower Respiratory Culture O:KLEBPN Cefoxitin Isolated Cefoxitin Piperacillin/Tazobactam AMOXICILLIN/CLAVULANIC ACID Isolated Organism: 8.1 Trimethoprim/Sulfamethoxazole Ertapenem Gentamicin S F Ertapenem S F Cefepime S F Cefpodoxime Trimethoprim/Sulfamethoxazole S F Antibiotic Interpretation JORGE Status Levofloxacin S F Ampicillin R F Tetracycline WILL FOLLOW Ciprofloxacin Isolated Ertapenem Tetracycline S F Ampicillin Cefpodoxime Levofloxacin Tetracycline Piperacillin/Tazobactam S F AMOXICILLIN/CLAVULANIC ACID R F Cefoxitin S F Cefpodoxime S F Meropenem Cefoxitin R F Cefpodoxime S F Antibiotic Interpretation JORGE Status Ceftriaxone S F O:ENTASB Cefepime AMOXICILLIN/CLAVULANIC ACID Tetracycline S F O:GNR Meropenem S F Ertapenem S F Ciprofloxacin S F Cefazolin S F Trimethoprim/Sulfamethoxazole Gentamicin Gentamicin S F Levofloxacin S F Tobramycin S F Trimethoprim/Sulfamethoxazole S F Levofloxacin AMOXICILLIN/CLAVULANIC ACID S F Lower Respiratory Culturefreundii complex, Enterobacter cloacae complex, and Tobramycin Gentamicin Cefepime Ceftriaxone Tobramycin S F Organism: 8.3 Cefepime S F Cefazolin Tobramycin Lower Respiratory Culture O:KLEBPN Cefoxitin Isolated Cefoxitin Piperacillin/Tazobactam AMOXICILLIN/CLAVULANIC ACID Isolated Organism: 8.1 Trimethoprim/Sulfamethoxazole Ertapenem Gentamicin S F Ertapenem S F Cefepime S F Cefpodoxime Trimethoprim/Sulfamethoxazole S F Antibiotic Interpretation JORGE Status Levofloxacin S F Ampicillin R F Tetracycline WILL FOLLOW Ciprofloxacin Isolated Ertapenem Tetracycline S F Ampicillin Cefpodoxime Levofloxacin Tetracycline Piperacillin/Tazobactam S F AMOXICILLIN/CLAVULANIC ACID R F Cefoxitin S F Cefpodoxime S F Meropenem Cefoxitin R F Cefpodoxime S F Antibiotic Interpretation JORGE Status Ceftriaxone S F O:ENTASB Cefepime AMOXICILLIN/CLAVULANIC ACID Tetracycline S F O:GNR Meropenem S F Ertapenem S F Ciprofloxacin S F Cefazolin S F Trimethoprim/Sulfamethoxazole Gentamicin Gentamicin S F Levofloxacin S F Tobramycin S F Trimethoprim/Sulfamethoxazole S F Levofloxacin AMOXICILLIN/CLAVULANIC ACID S F Lower Respiratory CultureKlebsiella aerogenes. Isolates that initially test Tobramycin Gentamicin Cefepime Ceftriaxone Tobramycin S F Organism: 8.3 Cefepime S F Cefazolin Tobramycin Lower Respiratory Culture O:KLEBPN Cefoxitin Isolated Cefoxitin Piperacillin/Tazobactam AMOXICILLIN/CLAVULANIC ACID Isolated Organism: 8.1 Trimethoprim/Sulfamethoxazole Ertapenem Gentamicin S F Ertapenem S F Cefepime S F Cefpodoxime Trimethoprim/Sulfamethoxazole S F Antibiotic Interpretation JORGE Status Levofloxacin S F Ampicillin R F Tetracycline WILL FOLLOW Ciprofloxacin Isolated Ertapenem Tetracycline S F Ampicillin Cefpodoxime Levofloxacin Tetracycline Piperacillin/Tazobactam S F AMOXICILLIN/CLAVULANIC ACID R F Cefoxitin S F Cefpodoxime S F Meropenem Cefoxitin R F Cefpodoxime S F Antibiotic Interpretation JORGE Status Ceftriaxone S F O:ENTASB Cefepime AMOXICILLIN/CLAVULANIC ACID Tetracycline S F O:GNR Meropenem S F Ertapenem S F Ciprofloxacin S F Cefazolin S F Trimethoprim/Sulfamethoxazole Gentamicin Gentamicin S F Levofloxacin S F Tobramycin S F Trimethoprim/Sulfamethoxazole S F Levofloxacin AMOXICILLIN/CLAVULANIC ACID S F Lower Respiratory Culturesusceptible may become resistant within a few days Tobramycin Gentamicin Cefepime Ceftriaxone Tobramycin S F Organism: 8.3 Cefepime S F Cefazolin Tobramycin Lower Respiratory Culture O:KLEBPN Cefoxitin Isolated Cefoxitin Piperacillin/Tazobactam AMOXICILLIN/CLAVULANIC ACID Isolated Organism: 8.1 Trimethoprim/Sulfamethoxazole Ertapenem Gentamicin S F Ertapenem S F Cefepime S F Cefpodoxime Trimethoprim/Sulfamethoxazole S F Antibiotic Interpretation JORGE Status Levofloxacin S F Ampicillin R F Tetracycline WILL FOLLOW Ciprofloxacin Isolated Ertapenem Tetracycline S F Ampicillin Cefpodoxime Levofloxacin Tetracycline Piperacillin/Tazobactam S F AMOXICILLIN/CLAVULANIC ACID R F Cefoxitin S F Cefpodoxime S F Meropenem Cefoxitin R F Cefpodoxime S F Antibiotic Interpretation JORGE Status Ceftriaxone S F O:ENTASB Cefepime AMOXICILLIN/CLAVULANIC ACID Tetracycline S F O:GNR Meropenem S F Ertapenem S F Ciprofloxacin S F Cefazolin S F Trimethoprim/Sulfamethoxazole Gentamicin Gentamicin S F Levofloxacin S F Tobramycin S F Trimethoprim/Sulfamethoxazole S F Levofloxacin AMOXICILLIN/CLAVULANIC ACID S F Lower Respiratory Cultureafter initiation of therapy. Testing subsequent Tobramycin Gentamicin Cefepime Ceftriaxone Tobramycin S F Organism: 8.3 Cefepime S F Cefazolin Tobramycin Lower Respiratory Culture O:KLEBPN Cefoxitin Isolated Cefoxitin Piperacillin/Tazobactam AMOXICILLIN/CLAVULANIC ACID Isolated Organism: 8.1 Trimethoprim/Sulfamethoxazole Ertapenem Gentamicin S F Ertapenem S F Cefepime S F Cefpodoxime Trimethoprim/Sulfamethoxazole S F Antibiotic Interpretation JORGE Status Levofloxacin S F Ampicillin R F Tetracycline WILL FOLLOW Ciprofloxacin Isolated Ertapenem Tetracycline S F Ampicillin Cefpodoxime Levofloxacin Tetracycline Piperacillin/Tazobactam S F AMOXICILLIN/CLAVULANIC ACID R F Cefoxitin S F Cefpodoxime S F Meropenem Cefoxitin R F Cefpodoxime S F Antibiotic Interpretation JORGE Status Ceftriaxone S F O:ENTASB Cefepime AMOXICILLIN/CLAVULANIC ACID Tetracycline S F O:GNR Meropenem S F Ertapenem S F Ciprofloxacin S F Cefazolin S F Trimethoprim/Sulfamethoxazole Gentamicin Gentamicin S F Levofloxacin S F Tobramycin S F Trimethoprim/Sulfamethoxazole S F Levofloxacin AMOXICILLIN/CLAVULANIC ACID S F Lower Respiratory Cultureisolates may be warranted if clinically indicated. Tobramycin Gentamicin Cefepime Ceftriaxone Tobramycin S F Organism: 8.3 Cefepime S F Cefazolin Tobramycin Lower Respiratory Culture O:KLEBPN Cefoxitin Isolated Cefoxitin Piperacillin/Tazobactam AMOXICILLIN/CLAVULANIC ACID Isolated Organism: 8.1 Trimethoprim/Sulfamethoxazole Ertapenem Gentamicin S F Ertapenem S F Cefepime S F Cefpodoxime Trimethoprim/Sulfamethoxazole S F Antibiotic Interpretation JORGE Status Levofloxacin S F Ampicillin R F Tetracycline WILL FOLLOW Ciprofloxacin Isolated Ertapenem Tetracycline S F Ampicillin Cefpodoxime Levofloxacin Tetracycline Piperacillin/Tazobactam S F AMOXICILLIN/CLAVULANIC ACID R F Cefoxitin S F Cefpodoxime S F Meropenem Cefoxitin R F Cefpodoxime S F Antibiotic Interpretation JORGE Status Ceftriaxone S F O:ENTASB Cefepime AMOXICILLIN/CLAVULANIC ACID Tetracycline S F O:GNR Meropenem S F Ertapenem S F Ciprofloxacin S F Cefazolin S F Trimethoprim/Sulfamethoxazole Gentamicin Gentamicin S F Levofloxacin S F Tobramycin S F Trimethoprim/Sulfamethoxazole S F Levofloxacin AMOXICILLIN/CLAVULANIC ACID S F Lower Respiratory Culture([id number]) Tobramycin Gentamicin Cefepime Ceftriaxone Tobramycin S F Organism: 8.3 Cefepime S F Cefazolin Tobramycin Lower Respiratory Culture O:KLEBPN Cefoxitin Isolated Cefoxitin Piperacillin/Tazobactam AMOXICILLIN/CLAVULANIC ACID Isolated Organism: 8.1 Trimethoprim/Sulfamethoxazole Ertapenem Gentamicin S F Ertapenem S F Cefepime S F Cefpodoxime Trimethoprim/Sulfamethoxazole S F Antibiotic Interpretation JORGE Status Levofloxacin S F Ampicillin R F Tetracycline WILL FOLLOW Ciprofloxacin Isolated Ertapenem Tetracycline S F Ampicillin Cefpodoxime Levofloxacin Tetracycline Piperacillin/Tazobactam S F AMOXICILLIN/CLAVULANIC ACID R F Cefoxitin S F Cefpodoxime S F Meropenem Cefoxitin R F Cefpodoxime S F Antibiotic Interpretation JORGE Status Ceftriaxone S F O:ENTASB Cefepime AMOXICILLIN/CLAVULANIC ACID Tetracycline S F O:GNR Meropenem S F Ertapenem S F Ciprofloxacin S F Cefazolin S F Trimethoprim/Sulfamethoxazole Gentamicin Gentamicin S F Levofloxacin S F Tobramycin S F Trimethoprim/Sulfamethoxazole S F Levofloxacin AMOXICILLIN/CLAVULANIC ACID S F Lower Respiratory CultureHeavy growth Tobramycin Gentamicin Cefepime Ceftriaxone Tobramycin S F Organism: 8.3 Cefepime S F Cefazolin Tobramycin Lower Respiratory Culture O:KLEBPN Cefoxitin Isolated Cefoxitin Piperacillin/Tazobactam AMOXICILLIN/CLAVULANIC ACID Isolated Organism: 8.1 Trimethoprim/Sulfamethoxazole Ertapenem Gentamicin S F Ertapenem S F Cefepime S F Cefpodoxime Trimethoprim/Sulfamethoxazole S F Antibiotic Interpretation JORGE Status Levofloxacin S F Ampicillin R F Tetracycline WILL FOLLOW Ciprofloxacin Isolated Ertapenem Tetracycline S F Ampicillin Cefpodoxime Levofloxacin Tetracycline Piperacillin/Tazobactam S F AMOXICILLIN/CLAVULANIC ACID R F Cefoxitin S F Cefpodoxime S F Meropenem Cefoxitin R F Cefpodoxime S F Antibiotic Interpretation JORGE Status Ceftriaxone S F O:ENTASB Cefepime AMOXICILLIN/CLAVULANIC ACID Tetracycline S F O:GNR Meropenem S F Ertapenem S F Ciprofloxacin S F Cefazolin S F Trimethoprim/Sulfamethoxazole Gentamicin Gentamicin S F Levofloxacin S F Tobramycin S F Trimethoprim/Sulfamethoxazole S F Levofloxacin AMOXICILLIN/CLAVULANIC ACID S F Lower Respiratory CultureEnterobacter asburiae Tobramycin Gentamicin Cefepime Ceftriaxone Tobramycin S F Organism: 8.3 Cefepime S F Cefazolin Tobramycin Lower Respiratory Culture O:KLEBPN Cefoxitin Isolated Cefoxitin Piperacillin/Tazobactam AMOXICILLIN/CLAVULANIC ACID Isolated Organism: 8.1 Trimethoprim/Sulfamethoxazole Ertapenem Gentamicin S F Ertapenem S F Cefepime S F Cefpodoxime Trimethoprim/Sulfamethoxazole S F Antibiotic Interpretation JORGE Status Levofloxacin S F Ampicillin R F Tetracycline WILL FOLLOW Ciprofloxacin Isolated Ertapenem Tetracycline S F Ampicillin Cefpodoxime Levofloxacin Tetracycline Piperacillin/Tazobactam S F AMOXICILLIN/CLAVULANIC ACID R F Cefoxitin S F Cefpodoxime S F Meropenem Cefoxitin R F Cefpodoxime S F Antibiotic Interpretation JORGE Status Ceftriaxone S F O:ENTASB Cefepime AMOXICILLIN/CLAVULANIC ACID Tetracycline S F O:GNR Meropenem S F Ertapenem S F Ciprofloxacin S F Cefazolin S F Trimethoprim/Sulfamethoxazole Gentamicin Gentamicin S F Levofloxacin S F Tobramycin S F Trimethoprim/Sulfamethoxazole S F Levofloxacin AMOXICILLIN/CLAVULANIC ACID S F Lower Respiratory CultureSee Below For Report Tobramycin Gentamicin Cefepime Ceftriaxone Tobramycin S F Organism: 8.3 Cefepime S F Cefazolin Tobramycin Lower Respiratory Culture O:KLEBPN Cefoxitin Isolated Cefoxitin Piperacillin/Tazobactam AMOXICILLIN/CLAVULANIC ACID Isolated Organism: 8.1 Trimethoprim/Sulfamethoxazole Ertapenem Gentamicin S F Ertapenem S F Cefepime S F Cefpodoxime Trimethoprim/Sulfamethoxazole S F Antibiotic Interpretation JORGE Status Levofloxacin S F Ampicillin R F Tetracycline WILL FOLLOW Ciprofloxacin Isolated Ertapenem Tetracycline S F Ampicillin Cefpodoxime Levofloxacin Tetracycline Piperacillin/Tazobactam S F AMOXICILLIN/CLAVULANIC ACID R F Cefoxitin S F Cefpodoxime S F Meropenem Cefoxitin R F Cefpodoxime S F Antibiotic Interpretation JORGE Status Ceftriaxone S F O:ENTASB Cefepime AMOXICILLIN/CLAVULANIC ACID Tetracycline S F O:GNR Meropenem S F Ertapenem S F Ciprofloxacin S F Cefazolin S F Trimethoprim/Sulfamethoxazole Gentamicin Gentamicin S F Levofloxacin S F Tobramycin S F Trimethoprim/Sulfamethoxazole S F Levofloxacin AMOXICILLIN/CLAVULANIC ACID S F Lower Respiratory CultureSee Below For Report Tobramycin Gentamicin Cefepime Ceftriaxone Tobramycin S F Organism: 8.3 Cefepime S F Cefazolin Tobramycin Lower Respiratory Culture O:KLEBPN Cefoxitin Isolated Cefoxitin Piperacillin/Tazobactam AMOXICILLIN/CLAVULANIC ACID Isolated Organism: 8.1 Trimethoprim/Sulfamethoxazole Ertapenem Gentamicin S F Ertapenem S F Cefepime S F Cefpodoxime Trimethoprim/Sulfamethoxazole S F Antibiotic Interpretation JORGE Status Levofloxacin S F Ampicillin R F Tetracycline WILL FOLLOW Ciprofloxacin Isolated Ertapenem Tetracycline S F Ampicillin Cefpodoxime Levofloxacin Tetracycline Piperacillin/Tazobactam S F AMOXICILLIN/CLAVULANIC ACID R F Cefoxitin S F Cefpodoxime S F Meropen[place] Cefoxitin R F Cefpodoxime S F Antibiotic Interpretation JORGE Status Ceftriaxone S F O:ENTASB Cefepime AMOXICILLIN/CLAVULANIC ACID Tetracycline S F O:GNR Meropenem S F Ertapenem S F Ciprofloxacin S F Cefazolin S F Trimethoprim/Sulfamethoxazole Gentamicin Gentamicin S F Levofloxacin S F Tobramycin S F Trimethoprim/Sulfamethoxazole S F Levofloxacin AMOXICILLIN/CLAVULANIC ACID S F Lower Respiratory CultureSee Below For Report Tobramycin Gentamicin Cefepime Ceftriaxone Tobramycin S F Organism: 8.3 Cefepime S F Cefazolin Tobramycin Lower Respiratory Culture O:KLEBPN Cefoxitin Isolated Cefoxitin Piperacillin/Tazobactam AMOXICILLIN/CLAVULANIC ACID Isolated Organism: 8.1 Trimethoprim/Sulfamethoxazole Ertapenem Gentamicin S F Ertapenem S F Cefepime S F Cefpodoxime Trimethoprim/Sulfamethoxazole S F Antibiotic Interpretation JORGE Status Levofloxacin S F Ampicillin R F Tetracycline WILL FOLLOW Ciprofloxacin Isolated Ertapenem Tetracycline S F Ampicillin Cefpodoxime Levofloxacin Tetracycline Piperacillin/Tazobactam S F AMOXICILLIN/CLAVULANIC ACID R F Cefoxitin S F Cefpodoxime S F Meropen[place] Cefoxitin R F Cefpodoxime S F Antibiotic Interpretation JORGE Status Ceftriaxone S F O:ENTASB Cefepime AMOXICILLIN/CLAVULANIC ACID Tetracycline S F O:GNR Meropenem S F Ertapenem S F Ciprofloxacin S F Cefazolin S F Trimethoprim/Sulfamethoxazole Gentamicin Gentamicin S F Levofloxacin S F Tobramycin S F Trimethoprim/Sulfamethoxazole S F Levofloxacin AMOXICILLIN/CLAVULANIC ACID S F Lower Respiratory CulturePerformed at: [facility] Tobramycin Gentamicin Cefepime Ceftriaxone Tobramycin S F Organism: 8.3 Cefepime S F Cefazolin Tobramycin Lower Respiratory Culture O:KLEBPN Cefoxitin Isolated Cefoxitin Piperacillin/Tazobactam AMOXICILLIN/CLAVULANIC ACID Isolated Organism: 8.1 Trimethoprim/Sulfamethoxazole Ertapenem Gentamicin S F Ertapenem S F Cefepime S F Cefpodoxime Trimethoprim/Sulfamethoxazole S F Antibiotic Interpretation JORGE Status Levofloxacin S F Ampicillin R F Tetracycline WILL FOLLOW Ciprofloxacin Isolated Ertapenem Tetracycline S F Ampicillin Cefpodoxime Levofloxacin Tetracycline Piperacillin/Tazobactam S F AMOXICILLIN/CLAVULANIC ACID R F Cefoxitin S F Cefpodoxime S F Meropen[place] Cefoxitin R F Cefpodoxime S F Antibiotic Interpretation JORGE Status Ceftriaxone S F O:ENTASB Cefepime AMOXICILLIN/CLAVULANIC ACID Tetracycline S F O:GNR Meropenem S F Ertapenem S F Ciprofloxacin S F Cefazolin S F Trimethoprim/Sulfamethoxazole Gentamicin Gentamicin S F Levofloxacin S F Tobramycin S F Trimethoprim/Sulfamethoxazole S F Levofloxacin AMOXICILLIN/CLAVULANIC ACID S F Lower Respiratory [id number] [place], [place] [id number] Tobramycin Gentamicin Cefepime Ceftriaxone Tobramycin S F Organism: 8.3 Cefepime S F Cefazolin Tobramycin Lower Respiratory Culture O:KLEBPN Cefoxitin Isolated Cefoxitin Piperacillin/Tazobactam AMOXICILLIN/CLAVULANIC ACID Isolated Organism: 8.1 Trimethoprim/Sulfamethoxazole Ertapenem Gentamicin S F Ertapenem S F Cefepime S F Cefpodoxime Trimethoprim/Sulfamethoxazole S F Antibiotic Interpretation JORGE Status Levofloxacin S F Ampicillin R F Tetracycline WILL FOLLOW Ciprofloxacin Isolated Ertapenem Tetracycline S F Ampicillin Cefpodoxime Levofloxacin Tetracycline Piperacillin/Tazobactam S F AMOXICILLIN/CLAVULANIC ACID R F Cefoxitin S F Cefpodoxime S F Meropen[place] Cefoxitin R F Cefpodoxime S F Antibiotic Interpretation JORGE Status Ceftriaxone S F O:ENTASB Cefepime AMOXICILLIN/CLAVULANIC ACID Tetracycline S F O:GNR Meropenem S F Ertapenem S F Ciprofloxacin S F Cefazolin S F Trimethoprim/Sulfamethoxazole Gentamicin Gentamicin S F Levofloxacin S F Tobramycin S F Trimethoprim/Sulfamethoxazole S F Levofloxacin AMOXICILLIN/CLAVULANIC ACID S F Lower Respiratory CultureLab Director: Roddy Strickland PhD, Phone: [phone] Tobramycin Gentamicin Cefepime Ceftriaxone Tobramycin S F Organism: 8.3 Cefepime S F Cefazolin Tobramycin Lower Respiratory Culture O:KLEBPN Cefoxitin Isolated Cefoxitin Piperacillin/Tazobactam AMOXICILLIN/CLAVULANIC ACID Isolated Organism: 8.1 Trimethoprim/Sulfamethoxazole Ertapenem Gentamicin S F Ertapenem S F Cefepime S F Cefpodoxime Trimethoprim/Sulfamethoxazole S F Antibiotic Interpretation JORGE Status Levofloxacin S F Ampicillin R F Tetracycline WILL FOLLOW Ciprofloxacin Isolated Ertapenem Tetracycline S F Ampicillin Cefpodoxime Levofloxacin Tetracycline Piperacillin/Tazobactam S F AMOXICILLIN/CLAVULANIC ACID R F Cefoxitin S F Cefpodoxime S F Meropen[place] Cefoxitin R F Cefpodoxime S F Antibiotic Interpretation JORGE Status Ceftriaxone S F O:ENTASB Cefepime AMOXICILLIN/CLAVULANIC ACID Tetracycline S F O:GNR Meropenem S F Ertapenem S F Ciprofloxacin S F Cefazolin S F Trimethoprim/Sulfamethoxazole Gentamicin Gentamicin S F Levofloxacin S F Tobramycin S F Trimethoprim/Sulfamethoxazole S F Levofloxacin AMOXICILLIN/CLAVULANIC ACID S F Lower Respiratory CultureSee Below For Report Tobramycin Gentamicin Cefepime Ceftriaxone Tobramycin S F Organism: 8.3 Cefepime S F Cefazolin Tobramycin Lower Respiratory Culture O:KLEBPN Cefoxitin Isolated Cefoxitin Piperacillin/Tazobactam AMOXICILLIN/CLAVULANIC ACID Isolated Organism: 8.1 Trimethoprim/Sulfamethoxazole Ertapenem Gentamicin S F Ertapenem S F Cefepime S F Cefpodoxime Trimethoprim/Sulfamethoxazole S F Antibiotic Interpretation JORGE Status Levofloxacin S F Ampicillin R F Tetracycline WILL FOLLOW Ciprofloxacin Isolated Ertapenem Tetracycline S F Ampicillin Cefpodoxime Levofloxacin Tetracycline Piperacillin/Tazobactam S F AMOXICILLIN/CLAVULANIC ACID R F Cefoxitin S F Cefpodoxime S F [place]open[place] Cefoxitin R F Cefpodoxime S F Antibiotic Interpretation JORGE Status Ceftriaxone S F O:ENTASB Cefepime AMOXICILLIN/CLAVULANIC ACID Tetracycline S F O:GNR Meropenem S F Ertapenem S F Ciprofloxacin S F Cefazolin S F Trimethoprim/Sulfamethoxazole Gentamicin Gentamicin S F Levofloxacin S F Tobramycin S F Trimethoprim/Sulfamethoxazole S F Levofloxacin AMOXICILLIN/CLAVULANIC ACID S F Lower Respiratory CultureSee Below For Report Tobramycin Gentamicin Cefepime Ceftriaxone Tobramycin S F Organism: 8.3 Cefepime S F Cefazolin Tobramycin Lower Respiratory Culture O:KLEBPN Cefoxitin Isolated Cefoxitin Piperacillin/Tazobactam AMOXICILLIN/CLAVULANIC ACID Isolated Organism: 8.1 Trimethoprim/Sulfamethoxazole Ertapenem Gentamicin S F Ertapenem S F Cefepime S F Cefpodoxime Trimethoprim/Sulfamethoxazole S F Antibiotic Interpretation JORGE Status Levofloxacin S F Ampicillin R F Tetracycline WILL FOLLOW Ciprofloxacin Isolated Ertapenem Tetracycline S F Ampicillin Cefpodoxime Levofloxacin Tetracycline Piperacillin/Tazobactam S F AMOXICILLIN/CLAVULANIC ACID R F Cefoxitin S F Cefpodoxime S F Meropen[place] Cefoxitin R F Cefpodoxime S F Antibiotic Interpretation JORGE Status Ceftriaxone S F O:ENTASB Cefepime AMOXICILLIN/CLAVULANIC ACID Tetracycline S F O:GNR Meropenem S F Ertapenem S F Ciprofloxacin S F Cefazolin S F Trimethoprim/Sulfamethoxazole Gentamicin Gentamicin S F Levofloxacin S F Tobramycin S F Trimethoprim/Sulfamethoxazole S F Levofloxacin AMOXICILLIN/CLAVULANIC ACID S F Lower Respiratory CultureSee Below For Report Tobramycin Gentamicin Cefepime Ceftriaxone Tobramycin S F Organism: 8.3 Cefepime S F Cefazolin Tobramycin Lower Respiratory Culture O:KLEBPN Cefoxitin Isolated Cefoxitin Piperacillin/Tazobactam AMOXICILLIN/CLAVULANIC ACID Isolated Organism: 8.1 Trimethoprim/Sulfamethoxazole Ertapenem Gentamicin S F Ertapenem S F Cefepime S F Cefpodoxime Trimethoprim/Sulfamethoxazole S F Antibiotic Interpretation JORGE Status Levofloxacin S F Ampicillin R F Tetracycline WILL FOLLOW Ciprofloxacin Isolated Ertapenem Tetracycline S F Ampicillin Cefpodoxime Levofloxacin Tetracycline Piperacillin/Tazobactam S F AMOXICILLIN/CLAVULANIC ACID R F Cefoxitin S F Cefpodoxime S F [place]open[place] Cefoxitin R F Cefpodoxime S F Antibiotic Interpretation JORGE Status Ceftriaxone S F O:ENTASB Cefepime AMOXICILLIN/CLAVULANIC ACID Tetracycline S F O:GNR Meropenem S F Ertapenem S F Ciprofloxacin S F Cefazolin S F Trimethoprim/Sulfamethoxazole Gentamicin Gentamicin S F Levofloxacin S F Tobramycin S F Trimethoprim/Sulfamethoxazole S F Levofloxacin AMOXICILLIN/CLAVULANIC ACID S F Lower Respiratory CultureSee Below For Report Tobramycin Gentamicin Cefepime Ceftriaxone Tobramycin S F Organism: 8.3 Cefepime S F Cefazolin Tobramycin Lower Respiratory Culture O:KLEBPN Cefoxitin Isolated Cefoxitin Piperacillin/Tazobactam AMOXICILLIN/CLAVULANIC ACID Isolated Organism: 8.1 Trimethoprim/Sulfamethoxazole Ertapenem Gentamicin S F Ertapenem S F Cefepime S F Cefpodoxime Trimethoprim/Sulfamethoxazole S F Antibiotic Interpretation JORGE Status Levofloxacin S F Ampicillin R F Tetracycline WILL FOLLOW Ciprofloxacin Isolated Ertapenem Tetracycline S F Ampicillin Cefpodoxime Levofloxacin Tetracycline Piperacillin/Tazobactam S F AMOXICILLIN/CLAVULANIC ACID R F Cefoxitin S F Cefpodoxime S F Meropen[place] Cefoxitin R F Cefpodoxime S F Antibiotic Interpretation JORGE Status Ceftriaxone S F O:ENTASB Cefepime AMOXICILLIN/CLAVULANIC ACID Tetracycline S F O:GNR Meropenem S F Ertapenem S F Ciprofloxacin S F Cefazolin S F Trimethoprim/Sulfamethoxazole Gentamicin Gentamicin S F Levofloxacin S F Tobramycin S F Trimethoprim/Sulfamethoxazole S F Levofloxacin AMOXICILLIN/CLAVULANIC ACID S F Lower Respiratory CultureSee Below For Report Tobramycin Gentamicin Cefepime Ceftriaxone Tobramycin S F Organism: 8.3 Cefepime S F Cefazolin Tobramycin Lower Respiratory Culture O:KLEBPN Cefoxitin Isolated Cefoxitin Piperacillin/Tazobactam AMOXICILLIN/CLAVULANIC ACID Isolated Organism: 8.1 Trimethoprim/Sulfamethoxazole Ertapenem Gentamicin S F Ertapenem S F Cefepime S F Cefpodoxime Trimethoprim/Sulfamethoxazole S F Antibiotic Interpretation JORGE Status Levofloxacin S F Ampicillin R F Tetracycline WILL FOLLOW Ciprofloxacin Isolated Ertapenem Tetracycline S F Ampicillin Cefpodoxime Levofloxacin Tetracycline Piperacillin/Tazobactam S F AMOXICILLIN/CLAVULANIC ACID R F Cefoxitin S F Cefpodoxime S F [place]open[place] Cefoxitin R F Cefpodoxime S F Antibiotic Interpretation JORGE Status Ceftriaxone S F O:ENTASB Cefepime AMOXICILLIN/CLAVULANIC ACID Tetracycline S F O:GNR Meropenem S F Ertapenem S F Ciprofloxacin S F Cefazolin S F Trimethoprim/Sulfamethoxazole Gentamicin Gentamicin S F Levofloxacin S F Tobramycin S F Trimethoprim/Sulfamethoxazole S F Levofloxacin AMOXICILLIN/CLAVULANIC ACID S F Lower Respiratory CultureSee Below For Report Tobramycin Gentamicin Cefepime Ceftriaxone Tobramycin S F Organism: 8.3 Cefepime S F Cefazolin Tobramycin Lower Respiratory Culture O:KLEBPN Cefoxitin Isolated Cefoxitin Piperacillin/Tazobactam AMOXICILLIN/CLAVULANIC ACID Isolated Organism: 8.1 Trimethoprim/Sulfamethoxazole Ertapenem Gentamicin S F Ertapenem S F Cefepime S F Cefpodoxime Trimethoprim/Sulfamethoxazole S F Antibiotic Interpretation JORGE Status Levofloxacin S F Ampicillin R F Tetracycline WILL FOLLOW Ciprofloxacin Isolated Ertapenem Tetracycline S F Ampicillin Cefpodoxime Levofloxacin Tetracycline Piperacillin/Tazobactam S F AMOXICILLIN/CLAVULANIC ACID R F Cefoxitin S F Cefpodoxime S F Meropen[place] Cefoxitin R F Cefpodoxime S F Antibiotic Interpretation JORGE Status Ceftriaxone S F O:ENTASB Cefepime AMOXICILLIN/CLAVULANIC ACID Tetracycline S F O:GNR Meropenem S F Ertapenem S F Ciprofloxacin S F Cefazolin S F Trimethoprim/Sulfamethoxazole Gentamicin Gentamicin S F Levofloxacin S F Tobramycin S F Trimethoprim/Sulfamethoxazole S F Levofloxacin AMOXICILLIN/CLAVULANIC ACID S F Lower Respiratory CultureSee Below For Report Tobramycin Gentamicin Cefepime Ceftriaxone Tobramycin S F Organism: 8.3 Cefepime S F Cefazolin Tobramycin Lower Respiratory Culture O:KLEBPN Cefoxitin Isolated Cefoxitin Piperacillin/Tazobactam AMOXICILLIN/CLAVULANIC ACID Isolated Organism: 8.1 Trimethoprim/Sulfamethoxazole Ertapenem Gentamicin S F Ertapenem S F Cefepime S F Cefpodoxime Trimethoprim/Sulfamethoxazole S F Antibiotic Interpretation JORGE Status Levofloxacin S F Ampicillin R F Tetracycline WILL FOLLOW Ciprofloxacin Isolated Ertapenem Tetracycline S F Ampicillin Cefpodoxime Levofloxacin Tetracycline Piperacillin/Tazobactam S F AMOXICILLIN/CLAVULANIC ACID R F Cefoxitin S F Cefpodoxime S F Meropenem Cefoxitin R F Cefpodoxime S F Antibiotic Interpretation JORGE Status Ceftriaxone S F O:ENTASB Cefepime AMOXICILLIN/CLAVULANIC ACID Tetracycline S F O:GNR Meropenem S F Ertapenem S F Ciprofloxacin S F Cefazolin S F Trimethoprim/Sulfamethoxazole Gentamicin Gentamicin S F Levofloxacin S F Tobramycin S F Trimethoprim/Sulfamethoxazole S F Levofloxacin AMOXICILLIN/CLAVULANIC ACID S F Lower Respiratory CultureSee Below For Report Tobramycin Gentamicin Cefepime Ceftriaxone Tobramycin S F Organism: 8.3 Cefepime S F Cefazolin Tobramycin Lower Respiratory Culture O:KLEBPN Cefoxitin Isolated Cefoxitin Piperacillin/Tazobactam AMOXICILLIN/CLAVULANIC ACID Isolated Organism: 8.1 Trimethoprim/Sulfamethoxazole Ertapenem Gentamicin S F Ertapenem S F Cefepime S F Cefpodoxime Trimethoprim/Sulfamethoxazole S F Antibiotic Interpretation JORGE Status Levofloxacin S F Ampicillin R F Tetracycline WILL FOLLOW Ciprofloxacin Isolated Ertapenem Tetracycline S F Ampicillin Cefpodoxime Levofloxacin Tetracycline Piperacillin/Tazobactam S F AMOXICILLIN/CLAVULANIC ACID R F Cefoxitin S F Cefpodoxime S F [place]open[place] Cefoxitin R F Cefpodoxime S F Antibiotic Interpretation JORGE Status Ceftriaxone S F O:ENTASB Cefepime AMOXICILLIN/CLAVULANIC ACID Tetracycline S F O:GNR [place]open[place] S F Ertapenem S F Ciprofloxacin S F Cefazolin S F Trimethoprim/Sulfamethoxazole Gentamicin Gentamicin S F Levofloxacin S F Tobramycin S F Trimethoprim/Sulfamethoxazole S F Levofloxacin AMOXICILLIN/CLAVULANIC ACID S F Lower Respiratory CultureSee Below For Report Tobramycin Gentamicin Cefepime Ceftriaxone Tobramycin S F Organism: 8.3 Cefepime S F Cefazolin Tobramycin Lower Respiratory Culture O:KLEBPN Cefoxitin Isolated Cefoxitin Piperacillin/Tazobactam AMOXICILLIN/CLAVULANIC ACID Isolated Organism: 8.1 Trimethoprim/Sulfamethoxazole Ertapenem Gentamicin S F Ertapenem S F Cefepime S F Cefpodoxime Trimethoprim/Sulfamethoxazole S F Antibiotic Interpretation JORGE Status Levofloxacin S F Ampicillin R F Tetracycline WILL FOLLOW Ciprofloxacin Isolated Ertapenem Tetracycline S F Ampicillin Cefpodoxime Levofloxacin Tetracycline Piperacillin/Tazobactam S F AMOXICILLIN/CLAVULANIC ACID R F Cefoxitin S F Cefpodoxime S F [place]open[place] Cefoxitin R F Cefpodoxime S F Antibiotic Interpretation JORGE Status Ceftriaxone S F O:ENTASB Cefepime AMOXICILLIN/CLAVULANIC ACID Tetracycline S F O:GNR [place]open[place] S F Ertapenem S F Ciprofloxacin S F Cefazolin S F Trimethoprim/Sulfamethoxazole Gentamicin Gentamicin S F Levofloxacin S F Tobramycin S F Trimethoprim/Sulfamethoxazole S F Levofloxacin AMOXICILLIN/CLAVULANIC ACID S F Lower Respiratory CultureSee Below For Report Tobramycin Gentamicin Cefepime Ceftriaxone Tobramycin S F Organism: 8.3 Cefepime S F Cefazolin Tobramycin Lower Respiratory Culture O:KLEBPN Cefoxitin Isolated Cefoxitin Piperacillin/Tazobactam AMOXICILLIN/CLAVULANIC ACID Isolated Organism: 8.1 Trimethoprim/Sulfamethoxazole Ertapenem Gentamicin S F Ertapenem S F Cefepime S F Cefpodoxime Trimethoprim/Sulfamethoxazole S F Antibiotic Interpretation JORGE Status Levofloxacin S F Ampicillin R F Tetracycline WILL FOLLOW Ciprofloxacin Isolated Ertapenem Tetracycline S F Ampicillin Cefpodoxime Levofloxacin Tetracycline Piperacillin/Tazobactam S F AMOXICILLIN/CLAVULANIC ACID R F Cefoxitin S F Cefpodoxime S F [place] Cefoxitin R F Cefpodoxime S F Antibiotic Interpretation JORGE Status Ceftriaxone S F O:ENTASB Cefepime AMOXICILLIN/CLAVULANIC ACID Tetracycline S F O:GNR [place]open[place] S F Ertapenem S F Ciprofloxacin S F Cefazolin S F Trimethoprim/Sulfamethoxazole Gentamicin Gentamicin S F Levofloxacin S F Tobramycin S F Trimethoprim/Sulfamethoxazole S F Levofloxacin AMOXICILLIN/CLAVULANIC ACID S F Lower Respiratory CultureSee Below For Report Tobramycin Gentamicin Cefepime Ceftriaxone Tobramycin S F Organism: 8.3 Cefepime S F Cefazolin Tobramycin Lower Respiratory Culture O:KLEBPN Cefoxitin Isolated Cefoxitin Piperacillin/Tazobactam AMOXICILLIN/CLAVULANIC ACID Isolated Organism: 8.1 Trimethoprim/Sulfamethoxazole Ertapenem Gentamicin S F Ertapenem S F Cefepime S F Cefpodoxime Trimethoprim/Sulfamethoxazole S F Antibiotic Interpretation JORGE Status Levofloxacin S F Ampicillin R F Tetracycline WILL FOLLOW Ciprofloxacin Isolated Ertapenem Tetracycline S F Ampicillin Cefpodoxime Levofloxacin Tetracycline Piperacillin/Tazobactam S F AMOXICILLIN/CLAVULANIC ACID R F Cefoxitin S F Cefpodoxime S F [place] Cefoxitin R F Cefpodoxime S F Antibiotic Interpretation JORGE Status Ceftriaxone S F O:ENTASB Cefepime AMOXICILLIN/CLAVULANIC ACID Tetracycline S F O:GNR [place]open[place] S F Ertapenem S F Ciprofloxacin S F Cefazolin S F Trimethoprim/Sulfamethoxazole Gentamicin Gentamicin S F Levofloxacin S F Tobramycin S F Trimethoprim/Sulfamethoxazole S F Levofloxacin AMOXICILLIN/CLAVULANIC ACID S F Lower Respiratory CultureSee Below For Report Tobramycin Gentamicin Cefepime Ceftriaxone Tobramycin S F Organism: 8.3 Cefepime S F Cefazolin Tobramycin Lower Respiratory Culture O:KLEBPN Cefoxitin Isolated Cefoxitin Piperacillin/Tazobactam AMOXICILLIN/CLAVULANIC ACID Isolated Organism: 8.1 Trimethoprim/Sulfamethoxazole Ertapenem Gentamicin S F Ertapenem S F Cefepime S F Cefpodoxime Trimethoprim/Sulfamethoxazole S F Antibiotic Interpretation JORGE Status Levofloxacin S F Ampicillin R F Tetracycline WILL FOLLOW Ciprofloxacin Isolated Ertapenem Tetracycline S F Ampicillin Cefpodoxime Levofloxacin Tetracycline Piperacillin/Tazobactam S F AMOXICILLIN/CLAVULANIC ACID R F Cefoxitin S F Cefpodoxime S F [place] Cefoxitin R F Cefpodoxime S F Antibiotic Interpretation JORGE Status Ceftriaxone S F O:ENTASB Cefepime AMOXICILLIN/CLAVULANIC ACID Tetracycline S F O:GNR [place]open[place] S F Ertapenem S F Ciprofloxacin S F Cefazolin S F Trimethoprim/Sulfamethoxazole Gentamicin Gentamicin S F Levofloxacin S F Tobramycin S F Trimethoprim/Sulfamethoxazole S F Levofloxacin AMOXICILLIN/CLAVULANIC ACID S F Lower Respiratory CultureSee Below For Report Tobramycin Gentamicin Cefepime Ceftriaxone Tobramycin S F Organism: 8.3 Cefepime S F Cefazolin Tobramycin Lower Respiratory Culture O:KLEBPN Cefoxitin Isolated Cefoxitin Piperacillin/Tazobactam AMOXICILLIN/CLAVULANIC ACID Isolated Organism: 8.1 Trimethoprim/Sulfamethoxazole Ertapenem Gentamicin S F Ertapenem S F Cefepime S F Cefpodoxime Trimethoprim/Sulfamethoxazole S F Antibiotic Interpretation JORGE Status Levofloxacin S F Ampicillin R F Tetracycline WILL FOLLOW Ciprofloxacin Isolated Ertapenem Tetracycline S F Ampicillin Cefpodoxime Levofloxacin Tetracycline Piperacillin/Tazobactam S F AMOXICILLIN/CLAVULANIC ACID R F Cefoxitin S F Cefpodoxime S F [place]open[place] Cefoxitin R F Cefpodoxime S F Antibiotic Interpretation JORGE Status Ceftriaxone S F O:ENTASB Cefepime AMOXICILLIN/CLAVULANIC ACID Tetracycline S F O:GNR [place]open[place] S F Ertapenem S F Ciprofloxacin S F Cefazolin S F Trimethoprim/Sulfamethoxazole Gentamicin Gentamicin S F Levofloxacin S F Tobramycin S F Trimethoprim/Sulfamethoxazole S F Levofloxacin AMOXICILLIN/CLAVULANIC ACID S F Lower Respiratory CultureSee Below For Report Tobramycin Gentamicin Cefepime Ceftriaxone Tobramycin S F Organism: 8.3 Cefepime S F Cefazolin Tobramycin Lower Respiratory Culture O:KLEBPN Cefoxitin Isolated Cefoxitin Piperacillin/Tazobactam AMOXICILLIN/CLAVULANIC ACID Isolated Organism: 8.1 Trimethoprim/Sulfamethoxazole Ertapenem Gentamicin S F Ertapenem S F Cefepime S F Cefpodoxime Trimethoprim/Sulfamethoxazole S F Antibiotic Interpretation JORGE Status Levofloxacin S F Ampicillin R F Tetracycline WILL FOLLOW Ciprofloxacin Isolated Ertapenem Tetracycline S F Ampicillin Cefpodoxime Levofloxacin Tetracycline Piperacillin/Tazobactam S F AMOXICILLIN/CLAVULANIC ACID R F Cefoxitin S F Cefpodoxime S F [place]open[place] Cefoxitin R F Cefpodoxime S F Antibiotic Interpretation JORGE Status Ceftriaxone S F O:ENTASB Cefepime AMOXICILLIN/CLAVULANIC ACID Tetracycline S F O:GNR Meropen[place] S F Ertapenem S F Ciprofloxacin S F Cefazolin S F Trimethoprim/Sulfamethoxazole Gentamicin Gentamicin S F Levofloxacin S F Tobramycin S F Trimethoprim/Sulfamethoxazole S F Levofloxacin AMOXICILLIN/CLAVULANIC ACID S F Lower Respiratory CultureSee Below For Report Tobramycin Gentamicin Cefepime Ceftriaxone Tobramycin S F Organism: 8.3 Cefepime S F Cefazolin Tobramycin Lower Respiratory Culture O:KLEBPN Cefoxitin Isolated Cefoxitin Piperacillin/Tazobactam AMOXICILLIN/CLAVULANIC ACID Isolated Organism: 8.1 Trimethoprim/Sulfamethoxazole Ertapenem Gentamicin S F Ertapenem S F Cefepime S F Cefpodoxime Trimethoprim/Sulfamethoxazole S F Antibiotic Interpretation JORGE Status Levofloxacin S F Ampicillin R F Tetracycline WILL FOLLOW Ciprofloxacin Isolated Ertapenem Tetracycline S F Ampicillin Cefpodoxime Levofloxacin Tetracycline Piperacillin/Tazobactam S F AMOXICILLIN/CLAVULANIC ACID R F Cefoxitin S F Cefpodoxime S F [place]open[place] Cefoxitin R F Cefpodoxime S F Antibiotic Interpretation JORGE Status Ceftriaxone S F O:ENTASB Cefepime AMOXICILLIN/CLAVULANIC ACID Tetracycline S F O:GNR Meropen[place] S F Ertapenem S F Ciprofloxacin S F Cefazolin S F Trimethoprim/Sulfamethoxazole Gentamicin Gentamicin S F Levofloxacin S F Tobramycin S F Trimethoprim/Sulfamethoxazole S F Levofloxacin AMOXICILLIN/CLAVULANIC ACID S F Lower Respiratory CultureSee Below For Report Tobramycin Gentamicin Cefepime Ceftriaxone Tobramycin S F Organism: 8.3 Cefepime S F Cefazolin Tobramycin Lower Respiratory Culture O:KLEBPN Cefoxitin Isolated Cefoxitin Piperacillin/Tazobactam AMOXICILLIN/CLAVULANIC ACID Isolated Organism: 8.1 Trimethoprim/Sulfamethoxazole Ertapenem Gentamicin S F Ertapenem S F Cefepime S F Cefpodoxime Trimethoprim/Sulfamethoxazole S F Antibiotic Interpretation JORGE Status Levofloxacin S F Ampicillin R F Tetracycline WILL FOLLOW Ciprofloxacin Isolated Ertapenem Tetracycline S F Ampicillin Cefpodoxime Levofloxacin Tetracycline Piperacillin/Tazobactam S F AMOXICILLIN/CLAVULANIC ACID R F Cefoxitin S F Cefpodoxime S F [place]open[place] Cefoxitin R F Cefpodoxime S F Antibiotic Interpretation JORGE Status Ceftriaxone S F O:ENTASB Cefepime AMOXICILLIN/CLAVULANIC ACID Tetracycline S F O:GNR [place]open[place] S F Ertapenem S F Ciprofloxacin S F Cefazolin S F Trimethoprim/Sulfamethoxazole Gentamicin Gentamicin S F Levofloxacin S F Tobramycin S F Trimethoprim/Sulfamethoxazole S F Levofloxacin AMOXICILLIN/CLAVULANIC ACID S F Lower Respiratory CultureSee Below For Report Tobramycin Gentamicin Cefepime Ceftriaxone Tobramycin S F Organism: 8.3 Cefepime S F Cefazolin Tobramycin Lower Respiratory Culture O:KLEBPN Cefoxitin Isolated Cefoxitin Piperacillin/Tazobactam AMOXICILLIN/CLAVULANIC ACID Isolated Organism: 8.1 Trimethoprim/Sulfamethoxazole Ertapenem Gentamicin S F Ertapenem S F Cefepime S F Cefpodoxime Trimethoprim/Sulfamethoxazole S F Antibiotic Interpretation JORGE Status Levofloxacin S F Ampicillin R F Tetracycline WILL FOLLOW Ciprofloxacin Isolated Ertapenem Tetracycline S F Ampicillin Cefpodoxime Levofloxacin Tetracycline Piperacillin/Tazobactam S F AMOXICILLIN/CLAVULANIC ACID R F Cefoxitin S F Cefpodoxime S F [place]open[place] Cefoxitin R F Cefpodoxime S F Antibiotic Interpretation JORGE Status Ceftriaxone S F O:ENTASB Cefepime AMOXICILLIN/CLAVULANIC ACID Tetracycline S F O:GNR [place]open[place] S F Ertapenem S F Ciprofloxacin S F Cefazolin S F Trimethoprim/Sulfamethoxazole Gentamicin Gentamicin S F Levofloxacin S F Tobramycin S F Trimethoprim/Sulfamethoxazole S F Levofloxacin AMOXICILLIN/CLAVULANIC ACID S F Lower Respiratory CultureSee Below For Report Tobramycin Gentamicin Cefepime Ceftriaxone Tobramycin S F Organism: 8.3 Cefepime S F Cefazolin Tobramycin Lower Respiratory Culture O:KLEBPN Cefoxitin Isolated Cefoxitin Piperacillin/Tazobactam AMOXICILLIN/CLAVULANIC ACID Isolated Organism: 8.1 Trimethoprim/Sulfamethoxazole Ertapenem Gentamicin S F Ertapenem S F Cefepime S F Cefpodoxime Trimethoprim/Sulfamethoxazole S F Antibiotic Interpretation JORGE Status Levofloxacin S F Ampicillin R F Tetracycline WILL FOLLOW Ciprofloxacin Isolated Ertapenem Tetracycline S F Ampicillin Cefpodoxime Levofloxacin Tetracycline Piperacillin/Tazobactam S F AMOXICILLIN/CLAVULANIC ACID R F Cefoxitin S F Cefpodoxime S F [place]open[place] Cefoxitin R F Cefpodoxime S F Antibiotic Interpretation JORGE Status Ceftriaxone S F O:ENTASB Cefepime AMOXICILLIN/CLAVULANIC ACID Tetracycline S F O:GNR [place]open[place] S F Ertapenem S F Ciprofloxacin S F Cefazolin S F Trimethoprim/Sulfamethoxazole Gentamicin Gentamicin S F Levofloxacin S F Tobramycin S F Trimethoprim/Sulfamethoxazole S F Levofloxacin AMOXICILLIN/CLAVULANIC ACID S F Lower Respiratory CultureSee Below For Report Tobramycin Gentamicin Cefepime Ceftriaxone Tobramycin S F Organism: 8.3 Cefepime S F Cefazolin Tobramycin Lower Respiratory Culture O:KLEBPN Cefoxitin Isolated Cefoxitin Piperacillin/Tazobactam AMOXICILLIN/CLAVULANIC ACID Isolated Organism: 8.1 Trimethoprim/Sulfamethoxazole Ertapenem Gentamicin S F Ertapenem S F Cefepime S F Cefpodoxime Trimethoprim/Sulfamethoxazole S F Antibiotic Interpretation JORGE Status Levofloxacin S F Ampicillin R F Tetracycline WILL FOLLOW Ciprofloxacin Isolated Ertapenem Tetracycline S F Ampicillin Cefpodoxime Levofloxacin Tetracycline Piperacillin/Tazobactam S F AMOXICILLIN/CLAVULANIC ACID R F Cefoxitin S F Cefpodoxime S F [place] Cefoxitin R F Cefpodoxime S F Antibiotic Interpretation JORGE Status Ceftriaxone S F O:ENTASB Cefepime AMOXICILLIN/CLAVULANIC ACID Tetracycline S F O:GNR [place]open[place] S F Ertapenem S F Ciprofloxacin S F Cefazolin S F Trimethoprim/Sulfamethoxazole Gentamicin Gentamicin S F Levofloxacin S F Tobramycin S F Trimethoprim/Sulfamethoxazole S F Levofloxacin AMOXICILLIN/CLAVULANIC ACID S F Lower Respiratory CultureSee Below For Report Tobramycin Gentamicin Cefepime Ceftriaxone Tobramycin S F Organism: 8.3 Cefepime S F Cefazolin Tobramycin Lower Respiratory Culture O:KLEBPN Cefoxitin Isolated Cefoxitin Piperacillin/Tazobactam AMOXICILLIN/CLAVULANIC ACID Isolated Organism: 8.1 Trimethoprim/Sulfamethoxazole Ertapenem Gentamicin S F Ertapenem S F Cefepime S F Cefpodoxime Trimethoprim/Sulfamethoxazole S F Antibiotic Interpretation JORGE Status Levofloxacin S F Ampicillin R F Tetracycline WILL FOLLOW Ciprofloxacin Isolated Ertapenem Tetracycline S F Ampicillin Cefpodoxime Levofloxacin Tetracycline Piperacillin/Tazobactam S F AMOXICILLIN/CLAVULANIC ACID R F Cefoxitin S F Cefpodoxime S F [place] Cefoxitin R F Cefpodoxime S F Antibiotic Interpretation JORGE Status Ceftriaxone S F O:ENTASB Cefepime AMOXICILLIN/CLAVULANIC ACID Tetracycline S F O:GNR [place]open[place] S F Ertapenem S F Ciprofloxacin S F Cefazolin S F Trimethoprim/Sulfamethoxazole Gentamicin Gentamicin S F Levofloxacin S F Tobramycin S F Trimethoprim/Sulfamethoxazole S F Levofloxacin AMOXICILLIN/CLAVULANIC ACID S F Lower Respiratory CultureSee Below For Report Tobramycin Gentamicin Cefepime Ceftriaxone Tobramycin S F Organism: 8.3 Cefepime S F Cefazolin Tobramycin Lower Respiratory Culture O:KLEBPN Cefoxitin Isolated Cefoxitin Piperacillin/Tazobactam AMOXICILLIN/CLAVULANIC ACID Isolated Organism: 8.1 Trimethoprim/Sulfamethoxazole Ertapenem Gentamicin S F Ertapenem S F Cefepime S F Cefpodoxime Trimethoprim/Sulfamethoxazole S F Antibiotic Interpretation JORGE Status Levofloxacin S F Ampicillin R F Tetracycline WILL FOLLOW Ciprofloxacin Isolated Ertapenem Tetracycline S F Ampicillin Cefpodoxime Levofloxacin Tetracycline Piperacillin/Tazobactam S F AMOXICILLIN/CLAVULANIC ACID R F Cefoxitin S F Cefpodoxime S F [place] Cefoxitin R F Cefpodoxime S F Antibiotic Interpretation JORGE Status Ceftriaxone S F O:ENTASB Cefepime AMOXICILLIN/CLAVULANIC ACID Tetracycline S F O:GNR [place]open[place] S F Ertapenem S F Ciprofloxacin S F Cefazolin S F Trimethoprim/Sulfamethoxazole Gentamicin Gentamicin S F Levofloxacin S F Tobramycin S F Trimethoprim/Sulfamethoxazole S F Levofloxacin AMOXICILLIN/CLAVULANIC ACID S F Lower Respiratory CultureSee Below For Report Tobramycin Gentamicin Cefepime Ceftriaxone Tobramycin S F Organism: 8.3 Cefepime S F Cefazolin Tobramycin Lower Respiratory Culture O:KLEBPN Cefoxitin Isolated Cefoxitin Piperacillin/Tazobactam AMOXICILLIN/CLAVULANIC ACID Isolated Organism: 8.1 Trimethoprim/Sulfamethoxazole Ertapenem Gentamicin S F Ertapenem S F Cefepime S F Cefpodoxime Trimethoprim/Sulfamethoxazole S F Antibiotic Interpretation JORGE Status Levofloxacin S F Ampicillin R F Tetracycline WILL FOLLOW Ciprofloxacin Isolated Ertapenem Tetracycline S F Ampicillin Cefpodoxime Levofloxacin Tetracycline Piperacillin/Tazobactam S F AMOXICILLIN/CLAVULANIC ACID R F Cefoxitin S F Cefpodoxime S F [place] Cefoxitin R F Cefpodoxime S F Antibiotic Interpretation JORGE Status Ceftriaxone S F O:ENTASB Cefepime AMOXICILLIN/CLAVULANIC ACID Tetracycline S F O:GNR [place]open[place] S F Ertapenem S F Ciprofloxacin S F Cefazolin S F Trimethoprim/Sulfamethoxazole Gentamicin Gentamicin S F Levofloxacin S F Tobramycin S F Trimethoprim/Sulfamethoxazole S F Levofloxacin AMOXICILLIN/CLAVULANIC ACID S F Lower Respiratory CultureSee Below For Report Tobramycin Gentamicin Cefepime Ceftriaxone Tobramycin S F Organism: 8.3 Cefepime S F Cefazolin Tobramycin Lower Respiratory Culture O:KLEBPN Cefoxitin Isolated Cefoxitin Piperacillin/Tazobactam AMOXICILLIN/CLAVULANIC ACID Isolated Organism: 8.1 Trimethoprim/Sulfamethoxazole Ertapenem Gentamicin S F Ertapenem S F Cefepime S F Cefpodoxime Trimethoprim/Sulfamethoxazole S F Antibiotic Interpretation JORGE Status Levofloxacin S F Ampicillin R F Tetracycline WILL FOLLOW Ciprofloxacin Isolated Ertapenem Tetracycline S F Ampicillin Cefpodoxime Levofloxacin Tetracycline Piperacillin/Tazobactam S F AMOXICILLIN/CLAVULANIC ACID R F Cefoxitin S F Cefpodoxime S F [place] Cefoxitin R F Cefpodoxime S F Antibiotic Interpretation JORGE Status Ceftriaxone S F O:ENTASB Cefepime AMOXICILLIN/CLAVULANIC ACID Tetracycline S F O:GNR [place]open[place] S F Ertapenem S F Ciprofloxacin S F Cefazolin S F Trimethoprim/Sulfamethoxazole Gentamicin Gentamicin S F Levofloxacin S F Tobramycin S F Trimethoprim/Sulfamethoxazole S F Levofloxacin AMOXICILLIN/CLAVULANIC ACID S F Lower Respiratory CultureSee Below For Report Tobramycin Gentamicin Cefepime Ceftriaxone Tobramycin S F Organism: 8.3 Cefepime S F Cefazolin Tobramycin Lower Respiratory Culture O:KLEBPN Cefoxitin Isolated Cefoxitin Piperacillin/Tazobactam AMOXICILLIN/CLAVULANIC ACID Isolated Organism: 8.1 Trimethoprim/Sulfamethoxazole Ertapenem Gentamicin S F Ertapenem S F Cefepime S F Cefpodoxime Trimethoprim/Sulfamethoxazole S F Antibiotic Interpretation JORGE Status Levofloxacin S F Ampicillin R F Tetracycline WILL FOLLOW Ciprofloxacin Isolated Ertapenem Tetracycline S F Ampicillin Cefpodoxime Levofloxacin Tetracycline Piperacillin/Tazobactam S F AMOXICILLIN/CLAVULANIC ACID R F Cefoxitin S F Cefpodoxime S F [place] Cefoxitin R F Cefpodoxime S F Antibiotic Interpretation JORGE Status Ceftriaxone S F O:ENTASB Cefepime AMOXICILLIN/CLAVULANIC ACID Tetracycline S F O:GNR [place]open[place] S F Ertapenem S F Ciprofloxacin S F Cefazolin S F Trimethoprim/Sulfamethoxazole Gentamicin Gentamicin S F Levofloxacin S F Tobramycin S F Trimethoprim/Sulfamethoxazole S F Levofloxacin AMOXICILLIN/CLAVULANIC ACID S F Lower Respiratory CultureSee Below For Report Tobramycin Gentamicin Cefepime Ceftriaxone Tobramycin S F Organism: 8.3 Cefepime S F Cefazolin Tobramycin Lower Respiratory Culture O:KLEBPN Cefoxitin Isolated Cefoxitin Piperacillin/Tazobactam AMOXICILLIN/CLAVULANIC ACID Isolated Organism: 8.1 Trimethoprim/Sulfamethoxazole Ertapenem Gentamicin S F Ertapenem S F Cefepime S F Cefpodoxime Trimethoprim/Sulfamethoxazole S F Antibiotic Interpretation JORGE Status Levofloxacin S F Ampicillin R F Tetracycline WILL FOLLOW Ciprofloxacin Isolated Ertapenem Tetracycline S F Ampicillin Cefpodoxime Levofloxacin Tetracycline Piperacillin/Tazobactam S F AMOXICILLIN/CLAVULANIC ACID R F Cefoxitin S F Cefpodoxime S F [place] Cefoxitin R F Cefpodoxime S F Antibiotic Interpretation JORGE Status Ceftriaxone S F O:ENTASB Cefepime AMOXICILLIN/CLAVULANIC ACID Tetracycline S F O:GNR [place]open[place] S F Ertapenem S F Ciprofloxacin S F Cefazolin S F Trimethoprim/Sulfamethoxazole Gentamicin Gentamicin S F Levofloxacin S F Tobramycin S F Trimethoprim/Sulfamethoxazole S F Levofloxacin AMOXICILLIN/CLAVULANIC ACID S F Lower Respiratory CultureSee Below For Report Tobramycin Gentamicin Cefepime Ceftriaxone Tobramycin S F Organism: 8.3 Cefepime S F Cefazolin Tobramycin Lower Respiratory Culture O:KLEBPN Cefoxitin Isolated Cefoxitin Piperacillin/Tazobactam AMOXICILLIN/CLAVULANIC ACID Isolated Organism: 8.1 Trimethoprim/Sulfamethoxazole Ertapenem Gentamicin S F Ertapenem S F Cefepime S F Cefpodoxime Trimethoprim/Sulfamethoxazole S F Antibiotic Interpretation JORGE Status Levofloxacin S F Ampicillin R F Tetracycline WILL FOLLOW Ciprofloxacin Isolated Ertapenem Tetracycline S F Ampicillin Cefpodoxime Levofloxacin Tetracycline Piperacillin/Tazobactam S F AMOXICILLIN/CLAVULANIC ACID R F Cefoxitin S F Cefpodoxime S F [place] Cefoxitin R F Cefpodoxime S F Antibiotic Interpretation JORGE Status Ceftriaxone S F O:ENTASB Cefepime AMOXICILLIN/CLAVULANIC ACID Tetracycline S F O:GNR [place]open[place] S F Ertapenem S F Ciprofloxacin S F Cefazolin S F Trimethoprim/Sulfamethoxazole Gentamicin Gentamicin S F Levofloxacin S F Tobramycin S F Trimethoprim/Sulfamethoxazole S F Levofloxacin AMOXICILLIN/CLAVULANIC ACID S F Lower Respiratory CultureSee Below For Report Tobramycin Gentamicin Cefepime Ceftriaxone Tobramycin S F Organism: 8.3 Cefepime S F Cefazolin Tobramycin Lower Respiratory Culture O:KLEBPN Cefoxitin Isolated Cefoxitin Piperacillin/Tazobactam AMOXICILLIN/CLAVULANIC ACID Isolated Organism: 8.1 Trimethoprim/Sulfamethoxazole Ertapenem Gentamicin S F Ertapenem S F Cefepime S F Cefpodoxime Trimethoprim/Sulfamethoxazole S F Antibiotic Interpretation JORGE Status Levofloxacin S F Ampicillin R F Tetracycline WILL FOLLOW Ciprofloxacin Isolated Ertapenem Tetracycline S F Ampicillin Cefpodoxime Levofloxacin Tetracycline Piperacillin/Tazobactam S F AMOXICILLIN/CLAVULANIC ACID R F Cefoxitin S F Cefpodoxime S F [place] Cefoxitin R F Cefpodoxime S F Antibiotic Interpretation JORGE Status Ceftriaxone S F O:ENTASB Cefepime AMOXICILLIN/CLAVULANIC ACID Tetracycline S F O:GNR [place]open[place] S F Ertapenem S F Ciprofloxacin S F Cefazolin S F Trimethoprim/Sulfamethoxazole Gentamicin Gentamicin S F Levofloxacin S F Tobramycin S F Trimethoprim/Sulfamethoxazole S F Levofloxacin AMOXICILLIN/CLAVULANIC ACID S F Lower Respiratory CultureSee Below For Report Tobramycin Gentamicin Cefepime Ceftriaxone Tobramycin S F Organism: 8.3 Cefepime S F Cefazolin Tobramycin Lower Respiratory Culture O:KLEBPN Cefoxitin Isolated Cefoxitin Piperacillin/Tazobactam AMOXICILLIN/CLAVULANIC ACID Isolated Organism: 8.1 Trimethoprim/Sulfamethoxazole Ertapenem Gentamicin S F Ertapenem S F Cefepime S F Cefpodoxime Trimethoprim/Sulfamethoxazole S F Antibiotic Interpretation JORGE Status Levofloxacin S F Ampicillin R F Tetracycline WILL FOLLOW Ciprofloxacin Isolated Ertapenem Tetracycline S F Ampicillin Cefpodoxime Levofloxacin Tetracycline Piperacillin/Tazobactam S F AMOXICILLIN/CLAVULANIC ACID R F Cefoxitin S F Cefpodoxime S F Meropenem Cefoxitin R F Cefpodoxime S F Antibiotic Interpretation JORGE Status Ceftriaxone S F O:ENTASB Cefepime AMOXICILLIN/CLAVULANIC ACID Tetracycline S F O:GNR Meropenem S F Ertapenem S F Ciprofloxacin S F Cefazolin S F Trimethoprim/Sulfamethoxazole Gentamicin Gentamicin S F Levofloxacin S F Tobramycin S F Trimethoprim/Sulfamethoxazole S F Levofloxacin AMOXICILLIN/CLAVULANIC ACID S F Performing Lab:see note SEE REPORT - Drying Tumbler Operator Id information not found for OBX-specific accounts payable clerk legend LC - [facility] LB Epithelial Cells Reviewed date:08/20/2025 02:08:58 PM Interpretation: Performing Lab: Notes/Report: [facility] ,Epithelial CellsSee Below For Report Epithelial Cells Few Performing Lab:see noteLC - [facility] LBWhite Blood Cells Reviewed date:08/20/2025 02:08:58 PM Interpretation: Performing Lab: Notes/Report: [facility] ,White Blood CellsSee Below For Report White Blood Cells White Blood CellsNone seen White Blood Cells Performing Lab:see noteLC - [facility] LBBlood Culture 2 Reviewed date:08/18/2025 08:34:10 PM Interpretation: Performing Lab: Notes/Report: [facility] ,Blood Culture 2See Below For Report NG5D NO GROWTH AT 5 DAYS.^NO GROWTH AT 5 DAYS. Blood Culture 2 Performing Lab:see noteML - [facility] LB Reason For Referral No Information Medications Medication SIG (Take, Route, Frequency, Duration) [...] minutesAre you interested in quitting? Thinking about quittingAlcohol Screen (Audit-C) Question Answer Notes Did you have a drink containing alcohol in the p ast year? Yes How often did you have 6 or more drinks on one occasion in the past year?Four or more times a week (4 points)How many drinks did you have on a typical day when you were drinking in the past year?5 or 6 drinks (2 points)How often did you have a drink containing alcohol in the past year?Daily or almost daily (4 points)Idufrh50XttchgrlemrzhnHikmlppeQZTJQ-M (Standard) Question Answer Notes Did you have a drink containing alcohol in the p ast year? 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)Activeconfirmed ProblemLeukopenia (69676736)Decreased white blood cell count, unspecified (D72.819)ActiveconfirmedProblemAlcoholic polyneuropathy (5583996)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61XA)ActiveconfirmedProblemNonunion of fracture (342722295) Nondisplaced fracture of lateral malleolus of right fibula, subsequent encounter for closed fracture with nonunion (S82.64XK)ActiveconfirmedProblemClosed fracture of upper end of fibula (40685986)Other fracture of upper and lower end of right fibula, initial encounter for closed fracture (S82.831A)Activeconfirmed ProblemClosed fracture of ankle (38811361)Other fracture of unspecified lower leg, initial encounter for closed fracture (S82.899A)ActiveconfirmedProblemCOPD - Chronic obstructive pulmonary disease (22751562)COPD (chronic obstructive pulmonary disease) (J44.9)ActiveconfirmedProblemAlcohol abuse (70134147)Alcohol abuse (F10.10)ActiveconfirmedProblemDiarrhea (16981572)Diarrhea (R19.7)Active confirmedProblemDysphagia (36432931)Dysphagia (R13.10)ActiveconfirmedProblem Pancytopenia (473797332)Pancytopenia (D61.818)ActiveconfirmedProblemAlcoholism (7332425)Alcoholism (F10.20)ActiveconfirmedProblemRecurrent falls (052102561) Frequent falls (R29.6)ActiveconfirmedProblemUnsteady gait (33734709)Unsteady gait (R26.81)ActiveconfirmedProblemErectile dysfunction (disorder) (835239951) Impotence (N52.9)ActiveconfirmedProblemOpioid abuse (2531113)Narcotic abuse (F11.10)ActiveconfirmedProblemLeukopenia (31504791)Leukopenia (D72.819)Active confirmedProblemBenign prostatic hyperplasia (587964856)Prostate hypertrophy (N40.0)ActiveconfirmedProblemAnkle fracture (48285196)Ankle fracture (S82.899A) ActiveconfirmedProblemLeukocytosis (591275171)Elevated WBCs (D72.829)Active confirmedProblemFacial fracture (S02.92XA)ActiveconfirmedProblemMalnutrition, calorie (259331877)Caloric malnutrition (E46)ActiveconfirmedProblemClosed fracture of malar AND/OR maxillary bones (46644372)Maxillary fracture, unspecified side, initial encounter for closed fracture (S02.401A)Active confirmedProblemClosed fracture of distal right fibula (disorder) (64237814679268384)Closed fracture of distal end of right fibula with routine healing, unspecified fracture morphology, subsequent encounter (S82.831D)Active confirmed Vital Signs Temperature 97.6 degrees Fahrenheit 07/17/2025 Blood pressure cucicdgtb29 mm Hg08/21/20256832Qupaya30 in08/21/2025lood pressure sxerizwl665 mm Hg08/21/20252817Bdiobc677.5 lbs1MI26.37 kg/m208/21/2025 Encounters Encounter Location Date Provider Diagnosis [facility] [address] [place] [address] 03/07/2025 Maldonado Hoy Secondary malignant neoplasm of other specified sites C79.89 ; Narcotic abuse F11.10 and Pancytopenia D61.818 [facility] [address] [place] [address] 04/29/2025 Maldonado Hoy Secondary malignant neoplasm of other specified sites C79.89 and Chronic viral hepatitis C B18.2 [facility] [address] [place] [address] 06/18/2025 Maldonado Hoy Impotence N52.9 ; Pancytopenia D61.818 ; Unsteady gait R26.81 ; Leukopenia D72.819 and Prostate hypertrophy N40.0 [facility] [address] [place] [address] 07/17/2025 Maldonado Hoy COPD (chronic obstructive pulmonary disease) J44.9 [facility] [address] [place] [address] 08/21/2025 Maldonado Hoy COPD (chronic obstructive pulmonary disease) J44.9 [facility] [address] [place] [address] 11/12/2024 Maldonado Hoy [facility] [place] [address] 06/18/2025Doug [facility] [place] [address]/26/2025Doug [facility] [place] [address]/16/2025[facility] [place] [address]/04/2025Doug HoyMold exposure Z77.120[facility] [place] [address]/04/2025 [facility] [place] [address]/Doug Hoy Assessments Encounter Date Diagnosis (ICD Code) Assessment Notes Treatment Notes Treatment Clinical Notes Section Notes 04/29/2025 Secondary malignant neoplasm of other specified sites (ICD-10 - C79.89) seeing Dr Pulliam - ENT ANd Dr Encinas for oncology and panchito for radiation 06/18/2025Pancytopenia (ICD-10 - D61.818)06/18/2025Unsteady gait (ICD-10 - R26.81)06/18/2025Impotence (ICD-10 - N52.9)06/18/2025Leukopenia (ICD-10 - D72.819)06/18/2025Prostate hypertrophy (ICD-10 - N40.0)07/17/2025OPD (chronic obstructive pulmonary disease) (ICD-10 - J44.9)5COPD (chronic obstructive pulmonary disease) (ICD-10 - J44.9)If not better -needs ct scan psnlztn4308/12/2025Mold exposure (ICD-10 - Z77.120)03/07/2025Secondary malignant neoplasm of other specified sites (ICD-10 - C79.89)Sqyuamous cell cancer 04/29/2025hronic viral hepatitis C (ICD-10 - B18.2)03/07/2025Narcotic abuse (ICD-10 - F11.10)clean now03/07/2025Pancytopenia (ICD-10 - D61.818)likely due to chemo and etoh Plan Of [...] T3) 5 THYROID PANEL (T4/TSH/FREE T3) 3 PSA, SCREENING 03/07/2025 PSA, SCREENING 06/18/2025 XR CHEST (2 VW) 08/12/2025 CMP (COMP MET MACKAY) w/eGFR CKD-EPI 2024 CMP (COMP MET MACKAY) w/eGFR CKD-EPI 2024 CBC WITH DIFF 03/07/2025 CBC WITH DIFF 06/18/2025 Next Appt Details Provider Name:Maldonado Spence Willa, 08:15:00 AM, [address] [place], [address], Insurance Providers Payer Name Payer Address Payer Phone Subscriber Number Group Number Insured Name Patient Relationship to Insured Coverage Start Date Coverage End Date [facility] MEDICARE ADV PLAN [address] [place] [phone] [id number] Adelfo Nolan Self - patient is the insured 3 MEDICAID [place] [address] OFFICE OF [place], [place] [id number] [phone], AnthonySelf - patient is the gahenet90 2022 Medical (General) History Medical History History ICD Code Closed fracture of distal en d of fibula, unspecified fracture morphology, unspecified laterality, initial encounter S82.839A fracture right maxillary sinus Alcohol abuseFrequent fallsLeukopeniamalnutritionOther fracture of upper and lower end of right fibula, subsequent encounter for closed fracture with routine rlwjnwfY75.831DMaxillary fracture, right side, subsequent encounter for fracture with routine gjcdhqqA06.40CDHistory of tongue etdaraU96.810DysphagiaSurgical History Surgery Date(Month/Year) Feeding tube placement at one time Hospitalization History Reason Date(Month/Year) Falls 07/06/23 Broken Right Ankle 07/2023
--- OUTSIDE RECORDS SUMMARY | 2025-09-03 06:55 | XMS_ITS | Clinical Summary ---
Author Organization [facility] Address [address] [place] [address] Care Team Providers Care Survey Questionnaire Designer Name Role Phone Bird Crouch MD Primary Care Provider [phone] Allergies No known active allergies Medications MedicationSigDispense QuantityRefillsLast FilledStart DateEnd DateStatus tamsulosin (FLOMAX) 0.4 mg Take 1 capsule by mouth every afternoon.4Active levoFLOXacin (LEVAQUIN) 750 mg tablet Take 750 mg by mouth once daily.Active Active Problems ProblemNoted DateDiagnosed DateMalignant neoplasm of head, face and neck 12/18/2020ung ojvlnnv0412/18/20209646Hvrowmfkrnllxmqw42/18/2018Mucositis due to radiation stbwiph3202/27/2018Severe protein-calorie msuxkbzmhsjo34/23/2018 Overview (02/27/2018): 17% unintentional weight loss in one month (02/27/18) Signed by: Selam Bullard RDN, 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Hoarse voice quality Family History Medical HistoryRelationCommentsStrokeDaughterDiabetesFatherDiabetesMotherStroke MotherColon CancerNo Family HistoryRelationStatusCommentsDaughterFatherDeceased MotherDeceased Social History Tobacco UseTypesPacks/DayYears UsedDateSmoking Tobacco: Every TedIebecxezii035 Started: 03/04/1973; Last attempted to quit: 03/04/2018Smokeless Tobacco: Current Tobacco Cessation:Ready to Q uit: Not Asked; Counseling Given: Not Answered Comments:started 1971 Alcohol UseStandard Drinks/WeekCommentsYes0 (1 standard drink = 0.6 oz pure alcohol)sociallyPHQ-2AnswerDate RecordedPHQ-2 wkomv547rea Deprivation IndexAnswerDate RecordedNational Score (1-100), lower number is lower risk87 12/19/2023State Score (1-10), lower number is lower ouzu8354Data from: https://www.neighborhoodatlas.[facility]/. Last address used for uznjojdhmdz[address]12/19/2023Sex and Gender InformationValueDate Recorded Sex Assigned at BirthNot on fileLegal SafUohq1401/04/2018 11:55 AM ESTGender IdentityNot on fileSexual OrientationNot on file Last Filed Vital Signs Vital SignReadingTime TakenCommentsBlood Cjpjstnc455/8503 11:18 AM EDT lzpugwbEoofl1731/17/2025 11:15 AM CTEAhfiqmmyljz41.4 ??C (97.6 ??F)01/21/2025 11:15 AM EDTRespiratory Garu4446 11:15 AM EDTOxygen Rreihstdcd10% 01/21/2025 11:15 AM EDTInhaled Oxygen Concentration--Hnmmqc86.5 kg (153 lb 3.5 oz)01/21/2025 11:15 AM HEZMlhmtq780.1 cm (5' 5 )01/21/2025 11:15 AM EDTBody Mass Index25.503 11:15 AM EDT Plan of Treatment DateTypeDepartmentCare Team (Latest Contact Info)Gyccnluziig99/09/2026 7:45 AM EDTAppointment Radiology Pet CT [address] [place] [address] CT CHEST AND NECK01/20/2026 11:40 AM EDTVisit (SP) Office Hematology/Oncology [address] [place] [address] Wyatt Vela MD [address] [place] [address] [place] [address] [address] UP AFTER CT SCANHealth MaintenanceDue DateLast DoneComments Abdominal Aortic Aneurysm Rfmlprjmh55/05/1957Anxiety Nkgpfcxut38/05/1975 Depression Qnmypszqi90/05/1975DTaP,Tdap,Td Vaccine (1 - Tdap)1975 Pneumococcal Vaccine: 50+ (1 of 2 - PCV)1975Lipid Riruxfsuy24/05/1992CT Nzvobjmnuvyd10/05/2002Cologuard (FIT-DNA)11/11/20019001Lbaewdvbyts55/05/2002 Colorectal Cancer Tlofrvsqb73/05/2002Fecal Occult Blood2001Prostate Cancer Screening Lynyljctwf65/05/3603Dqdaoazpvodgb54/05/2002Shingrix Vaccine (1 of 2) 2006dvance Directive Ypommbyaur61/01/2025Medicare Advantage Annual Wellness Visit11/07/2024ovid-19 Vaccine ( - 2024- season)2025Influenza Vaccine (#1)2025Diabetes Skhtcktia04/06/742321/04/2025, 06/22/2024, 12/16/2023, Additional history existsRSV Vaccine (1 - 1-dose 75+ series) 2031Hepatitis C IvdxocwvqRupynfdfd75/22/2024, 05/24/2024, 05/22/2024, Additional history exists Procedures Procedure NamePriorityDate/TimeAssociated DiagnosisCommentsCOMPREHENSIVE METABOLIC SWPVBPlhrksc61/06/2025 2:10 PM EST History of head and neck cancer Lung nodules HEPATITIS C VIRUS (HCV) RNA, QUANTITATIVE PCR, PLASMA/BCCYGTsglchf50/16/2024 9:58 AM EDT Abnormal LFTs Chronic hepatitis C without hepatic coma (HCC) from Last 3 Months or Most Recently Relevant to Health Maintenance Results * (ABNORMAL) COMPREHENSIVE METABOLIC PANEL (01/10/2025 2:10 PM EST)Component ValueRef RangeTest MethodAnalysis TimePerformed AtPathologist Signature Protein, Total6.86.3 - 8.0 g/dL01/10/2025 2:43 PM ESTNOR[facility]CO[facility] LABAlbumin4.43.9 - 4.9 g/dL01/10/2025 2:43 PM ESTNORTCOREWELL HEALTH ZEELAND [facility] LABCalcium, Total9.68.5 - 10.2 mg/dL01/10/2025 2:43 PM [facility] LABBilirubin, Total0.60.2 - 1.3 mg/dL 01/10/2025 2:43 PM [facility] LABAlkaline Ykjleakqyfi2801 - 113 U/L01/10/2025 2:43 PM [facility] EQIZAE0913 - 40 U/L01/10/2025 2:43 PM [facility] LABALT8(L)10 - 54 U/L01/10/2025 2:43 PM [facility] CKUOtsnjqj153(H)74 - 99 mg/dL01/10/2025 2:43 PM [facility] LABComment: The [place] Diabetes Association (ADA) provides guidance for cutoff values for fasting glucose andrandom glucose. The ADA defines fasting as no [...] Standards of Medical Care in Diabetes 2016, [place] Diabetes Association. Diabetes Care. 2016.39(Suppl 1). BUN99 - 24 mg/dL01/10/2025 2:43 PM [facility] LAB Creatinine0.68(L)0.73 - 1.22 mg/dL01/10/2025 2:43 PM [facility] SURSeluye931747 - 144 mmol/L01/10/2025 2:43 PM [facility] LABPotassium3.73.7 - 5.1 mmol/L01/10/2025 2:43 PM EST [facility] BUVOgonoaek76668 - 107 mmol/L01/10/2025 2:43 PM ESTNORTCOREWELL HEALTH ZEELAND [facility] VMWFN43473 - 30 mmol/L01/10/2025 2:43 PM [facility] LABAnion Xhu440 - 15 mmol/L01/10/2025 2:43 PM [facility] LABEstimated Glomerular Filtration Rate 101>=60 mL/min/1.73m 01/10/2025 2:43 PM [facility] LABComment:Estimated Glomerular Filtration Rate (eGFR) is calculated using the 2020 CKD-EPI creatinine equation. This equation utilizes serum creatinine, sex, and age as parameters. The creatinine assay has traceable calibration to isotope dilution- mass spectrometry. Refer to KDIGO guidelines for clinical interpretation. In patients with unstable renal function, e.g. those with acute kidney injury, the eGFRmay not accurately reflect actual GFR.Specimen (Source)Anatomical Location / LateralityCollection Method / VolumeCollection TimeReceived TimeBloodBLOOD SPECIMEN / UnknownVenipuncture / Rogqqcf3301/10/2025 2:10 PM EST01/10/2025 2:20 PM EST Narrative Authorizing ProviderResult TypeResult StatusViveberenice Vela MDLABORATORYFinal ResultPerforming OrganizationAddressCity/State/ZIP CodePhone Number [facility] [address] [place] [phone] * HEPATITIS C RNA QUANTIFICATION BY PCR, PLASMA/SERUM (05/22/2024 9:58 AM EDT) ComponentValueRef RangeTest MethodAnalysis TimePerformed AtPathologist SignatureHCV RNAHCV RNA not detected by PCR.HCV RNA not detected by PCR. TOY OSCAR 6800 05/23/2024 2:59 AM EDTCHOLZER HEALTH SYSTEM LABSpecimen (Source) Anatomical Location / LateralityCollection Method / VolumeCollection Time Received TimeBloodBLOOD SPECIMEN / UnknownVenipuncture / Vyesdkn7305/22/2024 9:58 AM EDT05/22/2024 9:58 AM EDT Narrative [facility] - 05/23/2024 2:59 AM EDT The Linear Range of this assay is 15 IU/ml to 100,000,000 IU/ml Authorizing ProviderResult TypeResult StatusNosilvino Quintero MDLABORATORYFinal Result Performing OrganizationAddressCity/State/ZIP CodePhone Number [facility] [address] [facility] [address] [place] [address], from Last 3 Months or Most Recently Relevant to Health Maintenance Insurance Care Teams Team MemberRelationshipSpecialtyStart DateEnd Bird Crouch MD PCP - GeneralFamily Medicine01/04/18
--- OUTSIDE RECORDS SUMMARY | 2025-09-03 06:55 | XMS_ITS | Encounter Summary ---
Author Organization [facility] Address [address] [place] [address] Care Team Providers Care Bowling Pin Setters Installer Name Role Phone Bird Crouch MD Primary Care Provider [phone] Encounter Details DateTypeDepartmentCare Team (Latest Contact Info)Xboyjvtmnln98/22/2025Travel Social History Tobacco UseTypesPacks/DayYears UsedDateSmoking Tobacco: Every DayCigarettes0.5 53.8Started: 1972Smokeless Tobacco: Never Comments:Smokes 6-10 cigaret yoko/day Alcohol UseStandard Drinks/WeekCommentsYes8 (1 standard drink = 0.6 oz pure alcohol)Caffeine >4 cups/daySex and Gender InformationValueDate RecordedSex Assigned at BirthNot on fileLegal YwlKftt3001/19/2023 8:14 PM EDTGender Identity Not on fileSexual OrientationNot on filedocumented as of this encounter Plan of Treatment DateTypeDepartmentCare Team (Latest Contact Info)Mjgdyxpudof39/01/2025 11:20 AM ESTOffice Visit [facility] [place] [facility] [address] [place] [address] Kelly Pulliam MD [address] [place] [address] 08/27/2026 11:20 AM EDTOffice Visit [facility] [place] [facility] [address] [place] [address] Kelly Pulliam MD [address] [place] [address] documented as of this encounter Visit Diagnoses Not on filedocumented in this encounter Care Teams Team MemberRelationshipSpecialtyStart DateEnd Date Bird Crouch MD [address] [place] [address] PCP - GeneralFamily Jacvhnlb45/16/25documented as of this encounter
--- OUTSIDE RECORDS SUMMARY | 2025-09-03 06:55 | XMS_ITS | CCD ---
Author Organization [facility]ini[facility] Care Team Providers Care Elementary Classroom Teacher Name Role Phone Elba De La Cruz Primary Care Unavailable Jen Qureshi Admitting Unavailable Jen Qureshi Attending Unavailable Elba De La Cruz MD Primary Care Provider Elba De La Cruz Primary Care Physician Elba De La Cruz MD Primary Care Provider Elba De La Cruz MD Primary Care Provider Elba De La Cruz MD Primary Care Provider [phone] DOROTHY ., DR ARREOLA Primary Care Unavailable BRAD CARUSO Admitting Unavailable BRAD CARUSO Attending Unavailable LEONA RENDON Admitting Unavailable DOROTHY ., DR ARREOLA Primary Care Unavailable LEONA RENDON Attending Unavailable HANKY ., DR ARREOLA Primary Care Unavailable HOY ., DR ARREOLA Consulting Unavailable HOY ., DR ARREOLA Attending Unavailable HOY ., DR ARREOLA Admitting Unavailable Darrell Spring Consulting Unavailable DOROTHY ., DR ARREOLA Primary Care [...] De La Cruz MD Primary Care Provider ELBA DE LA CRUZ Primary Care Unavailable HALIMA NIXON Referring Unavailable HOY, ELBA M Primary Care Unavailable HOYELBA M Primary Care Unavailable ABHYANKAR, WYATT Attending Unavailable ABHYANKAR, WYATT Referring Unavailable HOY, ELBA M Primary Care Unavailable ABHYANKAR, WYATT Referring Unavailable HOYELBA M Primary Care Unavailable ABHYANKAR, WYATT Referring Unavailable ABHYANKAR, WYATT Attending Unavailable ELBA DE LA CRUZ M Primary Care Unavailable ABHYANKAR, WYATT Referring Unavailable HOYVERONICAELBA M Primary Care Unavailable ABHYANKAR, WYATT Attending Unavailable ELBA DE LA CRUZ M Primary Care Unavailable ABHYANKAR, WYATT Referring Unavailable Elba De La Cruz MD Primary Care Provider [phone] ABRAM FIORE Attending Unavailable Medications Current Medications MedicationDrug Class(es)DatesSig (Normalized)Sig (Original)ascorbic acid 60 mg / cholecalciferol 0.01 mg / folic acid 0.3 mg / niacin 13.5 mg / riboflavin 1.2mg / sodium fluoride 0.55 mg / thiamine 1.05 mg / vitamin a 0.75 mg / vitamin b12 0.0045 mg / vitamin b6 1.05 mg / vitamin e 6.75 mg chewable tablet (10 sources)Nicotinic Acid, Vitamin A, Vitamin B12, Vitamin D, Vitamin C Pediatric Multivitamins-Fl (MultiVitamin + Fluoride) 0.25 MG chewable tablet Activecalcium carbonate 250 mg/ml oral suspension (10 sources)calcium carbonate 1250 MG/5ML Take 1,250 mg by mouth in the morning and 1,250 mg at noon and 1,250 mg in the evening. Take with meals. Active cefdinir 300 mg oral capsule (10 sources)Cephalosporin Antibacterialtake 1 capsule by mouth in the morning cefdinir (Omnicef) 300 MG capsule Take 300 mg by mouth in the morning and 300 mg before bedtime. Activefluconazole 100 mg oral tablet (2 sources)Azole AntifungalStart: 35-03-5766Ayqrucan 100 MG tablet 1 (one) time each day at the same time 08/21/2025 Activeiv contrast (will be provided with radiology test) (9 sources)Start: 01-21-2025 End: 93-32-5406frdjur 1 dose intravenously once, then inject 1 dose intravenously onceiv contrast (will be provided with radiology test) [...] administration guidelines link. 1 Each 01/21/2025 01/21/2025 ActiveStart: 01-21-2025 End: 95-08-8460gm contrast (will be provided with radiology test) [...] administration guidelines link. 1 Each 01/21/2025 01/22/2025 ActiveStart: 06-29-2024 End: 34-49-0211pyzubm 1 dose intravenously once, then inject 1 dose intravenously onceiv contrast (will be provided with radiology test) [...] administration guidelines link. 1 Each 06/29/2024 06/29/2024 ExpiredStart: 06-29-2024 End: 97-96-7531lx contrast (will be provided with radiology test) [...] administration guidelines link. 1 Each 06/29/2024 06/30/2024 ExpiredStart: 03-30-2024 End: 46-48-6276fq contrast (will be provided with radiology test) [...] guidelines link. 1 Each 0 03/30/2024 03/31/2024 ExpiredStart: 12-19-2023 End: 01-16-2931lg contrast (will be provided with radiology test) Indications: Localized enlarged lymph nodes , History of head and neck cancer CT Chest W - Inject, intravenously, once for 1 dose.No IV access, insert saline lock prior to the beginning of sedation, infusion, injection of imaging exam. Discontinue sa line lock post exam. If Pt. has a central line or IVAD, may access for administration according to line specific nursing protocol. Once exam is complete flush line and de-access according to line specific nursing protocol in the CT contrast administration guidelines link. 1 Each 0 12/19/2023 12/20/2023 ActiveStart: 12-16-2022 End: 74-44-0858hz contrast (will be provided with radiology test) Indications: Lung nodules CT Chest W -Inject, intravenously, once for 1 dose.No IV access, insert saline lock prior to the beginning of sedation, infusion, injection of imaging exam. Discontinue saline lock post exam. If Pt. has a central line or IV AD, may access for administration according to line specific nursing protocol. Once exam is complete flush line and de-access according to line specific nursing protocol in the CT contrast administration guidelines link. 1 Each 0 12/16/2022 12/17/2022 ActiveStart: 12-16-2022 End: 39-05-6040vcbcjt 1 dose intravenously once, then inject 1 dose intravenously onceiv contrast (will be provided with radiology test) [...] guidelines link. 1 Each 0 12/16/2022 12/16/2022 ActiveComment on above:CT Chest W -Inject, intravenously, once for 1 dose.No IV access, insert saline lock prior to the beginning of sedation, infusion, injection of imaging exam. Discontinue saline lock post exam. If Pt. has a central line or IVAD, may access for administration according to line specific nursing protocol. Once exam is complete flush line and de-access according to line specific nursing protocol in theCT contrast administration guidelines link.Inject 1 Each intravenously one time only for [address] Neck W IVCON No IV access, insert saline lock prior to the sedation, infusion, injection for imaging exam. Discontinue saline lock post exam. If Pt. has a central line or IVAD, may access for administration according to line specific nursing protocol. Once exam is complete flush line and de- access according to line specific nursing protocolin the CT contrast administration guidelines link.Lactobacillus (10 sources)Lactobacillus (FLORANEX PO) ActiveLactobacillus (FLORANEX PO) Floranex ActivelevoFLOXacin 750 mg oral tablet (13 sources)Quinolone Antimicrobialtake 1 tablet by mouth once dailylevoFLOXacin (Levaquin) 750 MG tablet Take 1 tablet by mouth Daily Activemagnesium oxide 400 mg oral tablet (10 sources)take 1 tablet by mouth once dailymagnesium oxide (Mag-Ox) 400 mg tablet Take 400 mg by mouth Daily ActiveMultiple Vitamin (multivitamin) capsule (10 sources)take 1 capsule by mouth once dailyMultiple Vitamin (multivitamin) capsule Take 1 capsule by mouth Daily Activetake 1 capsule by mouth in the morningMultiple Vitamin (multivitamin) capsule Take 1 capsule by mouth in the morning. Kazxeu70 hr nicotine 0.875 mg/hr transdermal system (10 sources)Cholinergic Nicotinic Agonistnicotine (Nicoderm, Step 1) 21 MG/24HR patch Place 1 patch on the skin 1 (one) time each day at thesame time Active omeprazole 40 mg delayed release oral capsule (10 sources)Proton Pump Inhibitortake 1 capsule by mouth before mealtime omeprazole (PriLOSEC) [address] capsule Take 40 mg by mouth in the morning. Take before meals. Activemicroencapsulated potassium chloride 20 meq extended release oral tablet (10 sources)take 1 tablet by mouth in the morningpotassium chloride CR (KLOR- CON) 20 MEQ ER tablet Take 20 mEq by mouth in the morning and 20 mEq before bedtime. ActivepredniSONE 10 mg oral tablet (2 sources)Start: 94-44-3528rfjeulUQIA (Deltasone) 10 MG tablet 5 TABS DAILY X3 DAYS, 4 TABS X3 DAYS, 3 TABS X3 DAYS, 2 TABS X3DAYS, 1 TAB X3 DAYS, 1/2 TAB X4 DAYS 07/23/2025 Activesofosbuvir 400 mg / velpatasvir 100 mg oral tablet (5 sources)Hepatitis C Virus NS5A Inhibitor, Hepatitis C Virus Nucleotide Analog NS5B Polymerase InhibitorStart: 12-30-2021 End: 54-60-1903rimv 1 tablet by mouth once dailyEpclusa 400 mg-100 mg oral tablet tab(s), Oral, Daily, Refills(s) 0 Start Date: 04/06/22 Status: Ordered Comment on above:Take 1 tablet by mouth once daily.tamsulosin hydrochloride 0.4 mg oral capsule (14 sources)alpha-Adrenergic BlockerStart: 05-07-0960tnyv 1 capsule by mouth oncetamsulosin (FLOMAX) 0.4 mg Take 1 capsule by mouth every afternoon. 11/22/2023 ActiveComment on above:Take 1 capsule by mouth every afternoon. thiamine 100 mg oral tablet (10 sources)take 1 tablet by mouth once dailythiamine (Vitamin B-1) 100 MG tablet Take 100 mg by mouth Daily Active Problems Active Problems Problem ClassificationProblemDateDocumented DateEpisodic/ChronicAlcohol-related disorders (6 sources)Alcohol abuse; Translations: [Alcohol abuse, uncomplicated]Onset: 932943-28-5930YqwtmnrMbmcpf of head and neck (20 sources)Malignant tumor of head and neck; Translations: [Malignant neoplasm of head, face and neck]Onset: 194054-79-1269IbmyqdgJfbihn; other and unspecified primary (10 sources)History of malignant neoplasm of head and/or neck; Translations: [Personal history of malignant neoplasm of other organs and systems]12-19-2023 EpisodicChronic obstructive pulmonary disease and bronchiectasis (2 sources)Chronic obstructive lung disease; Translations: [Chronic obstructive pulmonary disease, unspecified]Onset: 077240-89-6793BdwwbrtZtykdmfqce and other anemia (1 source)Deficiency and other anemia; Translations: [D64.9 - Anemia, unspecified]Onset: 67-03-3214Crmboojb of white blood cells (2 sources)Leukocytosis; Translations: [Elevated white blood cell count, unspecified]Onset: 695670-77-6677CggdbffAglxjjjiv hypertension (10 sources)Hypertensive disorder; Translations: [Essential (primary) hypertension]Onset: 868124-19-2380CgjzchcTbnrfswq of lower limb (7 sources)Other fracture of upper and lower end of right fibula, initial encounter for closed fracture; Translations: [Closed fracture of ankle]Onset: 354639-82-0923RsjbgwauCqapnyexp (8 sources)Chronic hepatitis C; Translations: [Chronic viral hepatitis C]Onset: 37-48-9927XtohhecOiidtaiuchk of prostate (12 sources)Benign prostatic hypertrophy without outflow obstruction; Translations: [Benign prostatic hyperplasia without lower urinary tract symptoms]Onset: 19-44-8023ShoqqcvClxktgmicdnqg and screening for infectious disease (1 source)Hepatitis C antibody test positive; Translations: [Other specified abnormal immunological findings in serum]EpisodicNutritional deficiencies (20 sources)Deficiency of macronutrients; Translations: [Unspecified severe protein-calorie malnutrition]Onset: 049114-51-1991MsontewUgnkw connective tissue disease (2 sources)Recurrent falls ; Translations: [Repeated falls]Onset: 08-28-2025 61-84-1416FwblpnrcZkxxb ear and sense organ disorders (2 sources)Sensorineural hearing loss, bilateral; Translations: [Sensorineural hearing loss, bilateral]05-65-2735SxmdyyjTvzgo ear and sense organ disorders (2 sources)Impacted cerumen of bilateral ears; Translations: [Impacted cerumen, bilateral]88-05-3493VphuzupjJsuge gastrointestinal disorders (2 sources)Diarrhea; Translations: [Diarrhea, unspecified]Onset: 08-28-2025 59-88-5371ErihjcskPqojl gastrointestinal disorders (2 sources)Dysphagia; Translations: [Dysphagia, unspecified]Onset: 08-28-2025 74-62-8393VyanchcdRtxle gastrointestinal disorders (2 sources)Swallowing painful; Translations: [Dysphagia, unspecified]Onset: 711119-93-8085JwjjgrlxBnzdz hematologic conditions (20 sources)Myelosuppression; Translations: [Other specified diseases of blood and blood-forming organs]Onset: 564327-52-6104OrtfvpjUzkdx injuries and conditions due to external causes (2 sources)Radiation injury; Translations: [Radiation sickness, unspecified, sequela]EpisodicOther liver diseases (2 sources)Steatosis of liver; Translations: [Fatty (change of) liver, not elsewhere classified]69-21-6099WfeitruUlevy lower respiratory disease (2 sources)Solitary nodule of lung; Translations: [Solitary pulmonary nodule] Onset: 620452-58-0640SbmsrcmvPijog male genital disorders (2 sources)Male erectile dysfunction, unspecified; Translations: [Impotence of organic origin]Onset: 748609-34-6641JeitvvoPidwg nervous system disorders (2 sources)Abnormal gait; Translations: [Unsteadiness on feet]Onset: 08-28-2025 05-69-9639LjwhdyrgJhxrl non-traumatic joint disorders (2 sources)Arthropathy associated with a neurological disorder; 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, unspecified site]Onset: 433084-87-6447TuftespOtpkf non- traumatic joint disorders (4 sources)Pain in right ankle and joints of right foot; Translations: [PAIN IN RIGHT ANKLE]Onset: 73-12-3307HcggzaxxLhiyn nutritional; endocrine; and metabolic disorders (10 sources)Porphyria cutanea tarda; 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] Onset: 186742-32-3632JdqnzccQdqwr upper respiratory disease (2 sources)Allergic rhinitis; Translations: [Other allergic rhinitis]08-28-2025 ChronicOther upper respiratory infections (2 sources)Chronic sinusitis; Translations: [Chronic sinusitis, unspecified] 76-35-9458DplxkszNuycooalo by other medications and drugs (20 sources)Mucositis following radiation therapy; Translations: [Oral mucositis (ulcerative) due to radiation]Onset: 171473-01-3218OpiwvpnhEvhiztmwl malignancies (20 sources)Metastatic squamous cell carcinoma; Translations: [Secondary malignant neoplasm of other specified sites]Onset: 268137-06-6952Uuutsga Skull and face fractures (12 sources)Closed fracture of right maxilla; Translations: [Maxillary fracture, right side, initial encounter for closed fracture]Onset: 760212-80-3468 EpisodicSubstance-related disorders (13 sources)Smoker; Translations: [Nicotine dependence, unspecified, uncomplicated]Onset: 412787-00-9722LvbkrluJscwlbe disorders (2 sources)Disorder of thyroid gland; Translations: [Disorder of thyroid, unspecified]Episodic Past or Other Problems Problem ClassificationProblemDateDocumented DateEpisodic/ChronicCancer of head and neck (11 sources)History of malignant neoplasm of tongue; Translations: [Personal history of malignant neoplasm of tongue]Onset: 06-21-2023 Resolved: 224286-57-9790EihstizuAjddye; other and unspecified primary (1 source)Personal history of malignant neoplasm of other organs and systems; Translations: [History of head and neck cancer]Onset: 33-91-6672Cztvsabr Genitourinary symptoms and ill-defined conditions (13 sources)Nocturia; Translations: [Nocturia]Onset: 04-06-2022 Resolved: 73-80-2293WjjkznwcDmtqgnknxtbfk (3 sources)Localized enlarged lymph nodes; Translations: [Localized enlarged lymph nodes]Onset: 326564-94-3699HsahygyiVpzcd lower respiratory disease (20 sources)Multiple nodules of lung; Translations: [Other nonspecific abnormal finding of lung field]Onset: 510117-18-8516WuswwtczShztp lower respiratory disease (1 source)Other nonspecific abnormal finding of lung field; Translations: [Lung nodules]Onset: 47-69-7096TqsvyjweOqivx screening for suspected conditions (not mental disorders or infectious disease) (3 sources)Liver function tests abnormal; Translations: [Other specified abnormal findings of blood chemistry]Onset: 947594-72-8495KtbrrhrnKvuwa upper respiratory disease (20 sources)Hoarse; Translations: [Dysphonia]Onset: 309021-13-7119Ismzwvap Results Test NameValueInterpretationReference RangeFacilityCNOVSPon 77-50-8914CSBPVQ Visit (SP) Office ([place]) CARSON MORSE ([id number]) 1955 M Date Time Provider Department 01/21/25 11:40 AM [...] AM Signed NAME: Carson Morse CLINIC NO.: [id number] DATE OF SERVICE: January 21, 2025 (Mirian) [...] - CT N/Chest: Bilater (more content not included)...NormalThe Metrohealth SystemCNPNon 23-44-0834YACZNuplwcozs (GASTNO) CARSON MORSE ([id number]) 1955 Date Time Provider Department 01/18/25 HALIMA NIXON During your visit today, we recorded the following information about you: Mary Villarreal RN 01/18/2025 10:53 AM Signed Pt notified of results and recommendations and verbalized understanding. Schedulers, please call pt to schedule US, Fibroscan and OV. Orders are already placed. Thank you, NOLAN Meeks Noma, MD P [facility] Nurse Pool Normal AFP Patient is overdue [...] 12/18/2020 Encounter Status:Closed by IVETTE LALA on 01/18/25NormalCLutheran Hospital SerPl-mCncon 16-11-0817BTR [Mass/Vol]4.54 ng/mLNormal<9.00The Metrohealth SystemComment on above:Order Comment: Specimen Type: BLOOD SPECIMENOrdering Facility: [facility] Address:[address] [place], [place] [address]Result Comment: The Alpha-Fetoprotein test was performed using the Uma Unicel DxI immunoenzymatic assay. Results obtained with different assay methods or kits cannot be used interchangeably.Performed By: #### 1834-1 ####[facility] LABCLIA [id number] [address] Auto Differential panel (Bld)on 77-69-0649Pnbmkrrff (Bld) [#/Vol]0.09 10*3/uLNINFPomerene Hospital Basophils/100 WBC (Bld)1.9 %[facility]omerene HospitalDifferential cell count method Nom (Bld)AutoCleveland ClinicEosinophils (Bld) [#/Vol]0.11 10*3/uLNINFPomerene HospitalEosinophils/100 WBC (Bld)2.4 %[facility] HospitalErythrocyte distribution width (RBC) [Ratio]12.2 %11.5 - 15.0 %[facility] HospitalHematocrit (Bld) [Volume fraction]31.6 %Low39.0 - 51.0 %[facility] HospitalHemoglobin (Bld) [Mass/Vol]10.6 g/dLLow13.0 - 17.0 g/dLPomerene HospitalImmature granulocytes (Bld) [#/Vol]NINF [facility] HospitalImmature granulocytes/100 WBC (Bld)0.4 %[facility] Interpretation and review of laboratory resultsAbnormalCMercy Health Tiffin Hospital Lymphocytes (Bld) [#/Vol]0.96 10*3/uLLowPomerene HospitalLymphocytes/100 WBC (Bld)20.7 %[facility] HospitalH (RBC) [Entitic mass]33.9 pg26.0 - 34.0 pg [facility] HospitalHC (RBC) [Mass/Vol]33.5 g/dL30.5 - 36.0 g/dLPomerene Hospital MCV (RBC) [Entitic vol]101 yWFgkh29.0 - 100.0 fLCleveland ClinicMonocytes (Bld) [#/Vol]0.38 10*3/uLNINFPomerene HospitalMonocytes/100 WBC (Bld)8.2 %[facility] HospitalNeutrophils (Bld) [#/Vol]3.08 10*3/[facility] HospitalNeutrophils/100 WBC (Bld)66.4 %[facility] HospitalNucleated RBC (Bld) [#/Vol]NINFCMercy Health Tiffin Hospital Nucleated RBC/100 WBC (Bld) [Ratio]0 %/100 WBCPomerene HospitalPlatelet mean volume (Bld) [Entitic vol]9.4 fL9.0 - 12.7 fLCMercy Health Tiffin HospitalPlatelets (Bld) [#/Vol]209 10*3/uLPomerene HospitalRBC (Bld) [#/Vol]3.13 10*6/uLLow4.20 - 6.00 m/[facility] HospitalWBC (Bld) [#/Vol]4.64 10*3/uLCommunity Regional Medical Center ClinicBasophils (Bld) [#/Vol]0.09 10*3/uLNormal<0.11COhio State Harding Hospital Comment on above:Order Comment: Specimen Type: BLOOD SPECIMENOrdering Facility: [facility] Address:[address] [place] [address] Performed By: #### 49865-8 ####[facility] HOSPITALIA [id number] [place], [place] [address]Hxsclqpro/100 WBC (Bld)1.9 % NormalThe Metrohealth SystemComment on above:Order Comment: Specimen Type: BLOOD SPECIMENOrdering Facility: [facility] Address:[address] [place], [place] [address]Performed By: #### 05532-5 ####[facility] LABIA [id number] [place] [address] Differential cell count method Nom (Bld)AutoNormalCOhio State Harding Hospital Comment on above:Order Comment: Specimen Type: BLOOD SPECIMENOrdering Facility: [facility] Address:[address] [place] [address] Performed By: #### 79204-9 ####[facility] LABIA [id number] [place], [place] [address]Mdkhwvwutpj (Bld) [#/Vol]0.11 10*3/uLNormal<0.46[facility] on above:Order Comment: Specimen Type: BLOOD SPECIMENOrdering Facility: [facility] Address:[address] [place], [place] [address]Performed By: #### 24375-5 ####[facility] LABCLIA [id number] [place], [place] [address]Rzkffbqfffg/100 WBC (Bld)2.4 %NormalMercy Health Allen Hospital on above:Order Comment: Specimen Type: BLOOD SPECIMENOrdering Facility: [facility] Address:[address] [place], [place] [address]Performed By: #### 57864-3 ####[facility] LABIA [id number] [place], [place] [address]Hpfasmlmuoo distribution width (RBC) [Ratio]12.2 %Lnefws31.5-15.0[facility] on above: Order Comment: Specimen Type: BLOOD SPECIMENOrdering Facility: [facility] Address:[address] [place], [place] [address]Performed By: #### 14978- 8 ####[facility] LABCLIA [id number] [place], [place] [address]Uglgeedoke (Bld) [Volume fraction]31.6 %Low39.0-51.0 [facility] on above:Order Comment: Specimen Type: BLOOD SPECIMENOrdering Facility: [facility] Address:[address] [place], [place] [address]Performed By: #### 89580-9 ####[facility] LABIA [id number] [place], [place] [address]Esfaouvzsr (Bld) [Mass/Vol]10.6 g/dLLow13.0-17.0[facility] on above:Order Comment: Specimen Type: BLOOD SPECIMENOrdering Facility: [facility] Address:[address] [place], [place] [address]Performed By: #### 71678- 8 ####[facility] LABCLIA [id number] [place], [place] [address]Qtlslmij granulocytes (Bld) [#/Vol]10*3/uLNormal<0.10 [facility] on above:Order Comment: Specimen Type: BLOOD SPECIMENOrdering Facility: [facility] Address:[address] [place], [place] [address]Performed By: #### 33318-5 ####[facility] LABCLIA [id number] [place], [place] [address]Bkwwdzrf granulocytes/100 WBC (Bld)0.4 %NormalMercy Health Allen Hospital on above: Order Comment: Specimen Type: BLOOD SPECIMENOrdering Facility: [facility] Address:[address] [place], [place] [address]Performed By: #### 77136- 8 ####[facility] LABCLIA [id number] [place], [place] [address]Vcpzojzjcpy (Bld) [#/Vol]0.96 10*3/uLLow1.00-4.00 [facility] on above:Order Comment: Specimen Type: BLOOD SPECIMENOrdering Facility: [facility] Address:[address] [place], [place] [address]Performed By: #### 66735-7 ####[facility] LABCLIA [id number] [place], [place] [address]Umywcgtujgx/100 WBC (Bld)20.7 %NormalMercy Health Allen Hospital on above:Order Comment: Specimen Type: BLOOD SPECIMENOrdering Facility: [facility] Address:[address] [place], [place] [address]Performed By: #### 10159-1 ####[facility] LABCLIA [id number] [place], [place] [address]EIR (RBC) [Entitic mass]33.9 pfKxdlyt55.0-34.0[facility] on above:Order Comment: Specimen Type: BLOOD SPECIMENOrdering Facility: [facility] Address:[address] [place], [place] [address]Performed By: #### 81687-9 ####[facility] LABCLIA [id number] [place], [place] [address]WYNR (RBC) [Mass/Vol]33.5 g/vHTozpiz19.5-36.0[facility] on above: Order Comment: Specimen Type: BLOOD SPECIMENOrdering Facility: [facility] Address:[address] [place], [place] [address]Performed By: #### 05226- 8 ####[facility] LABCLIA [id number] [place], [place] [address]KBB (RBC) [Entitic vol]101.0 yVXutg19.0-100.0[facility] on above:Order Comment: Specimen Type: BLOOD SPECIMENOrdering Facility: [facility] Address:[address] [place], [place] [address]Performed By: #### 84395-9 ####[facility] LABCLIA [id number] [place], [place] [address]Mafwieawu (Bld) [#/Vol]0.38 10*3/uLNormal<0.87[facility] on above:Order Comment: Specimen Type: BLOOD SPECIMENOrdering Facility: [facility] Address:[address] [place], [place] [address]Performed By: #### 44052- 8 ####[facility] LABCLIA [id number] [place], [place] [address]Jomiefpzn/100 WBC (Bld)8.2 %NormalMercy Health Allen Hospital on above:Order Comment: Specimen Type: BLOOD SPECIMENOrdering Facility: [facility] Address:[address] [place], [place] [address]Performed By: #### 32598-8 ####[facility] LABCLIA [id number] [place], [place] [address]Qulahlbnrab (Bld) [#/Vol]3.08 10*3/uLNormal1.45-7.50[facility] on above:Order Comment: Specimen Type: BLOOD SPECIMENOrdering Facility: [facility] Address:[address] [place], [place] [address]Performed By: #### 94399-6 ####[facility] LABCLIA [id number] [place], [place] [address]Nderojglahe/100 WBC (Bld)66.4 %NormalMercy Health Allen Hospital on above:Order Comment: Specimen Type: BLOOD SPECIMENOrdering Facility: [facility] Address:[address] [place], [place] [address]Performed By: #### 24847-4 ####[facility] LABCLIA [id number] [place], [place] [address]Rtoomnuyv RBC (Bld) [#/Vol] 10*3/uLNormal<0.01[facility] on above:Order Comment: Specimen Type: BLOOD SPECIMENOrdering Facility: [facility] Address:[address] [place], [place] [address]Performed By: #### 33736-7 ####[facility] LABIA [id number] [place], [place] [address]Jobnipzeg RBC/100 WBC (Bld) [Ratio]0.0 /100 WBCNormal [facility] on above:Order Comment: Specimen Type: BLOOD SPECIMENOrdering Facility: [facility] Address:[address] [place], [place] [address]Performed By: #### 54093-0 ####[facility] LABIA [id number] [place], [place] [address]Eoiyyzpe mean volume (Bld) [Entitic vol]9.4 fLNormal9.0-12.7CProtestant Hospital on above:Order Comment: Specimen Type: BLOOD SPECIMENOrdering Facility: [facility] Address:[address] [place], [place] [address] Performed By: #### 23526-7 ####[facility] LABCLIA [id number] [place], [place] [address]Xninhbpae (Bld) [#/Vol]209 10*3/tZAzphso632-602DnxvsgafrMercy Health Allen Hospital on above:Order Comment: Specimen Type: BLOOD SPECIMENOrdering Facility: [facility] Address:[address] [place], [place] [address]Performed By: #### 29689-9 ####[facility] LABCLIA [id number] [place], [place] [address]GFP (Bld) [#/Vol]3.13 10*6/uLLow4.20-6.00[facility] on above:Order Comment: Specimen Type: BLOOD SPECIMENOrdering Facility: [facility] Address:[address] [place], [place] [address]Performed By: #### 90270-4 ####[facility] LABIA [id number] [place], [place] [address]EOV (Bld) [#/Vol]4.64 10*3/uL Normal3.70-11.00[facility] on above:Order Comment: Specimen Type: BLOOD SPECIMENOrdering Facility: [facility] Address:[address] [place], [place] [address]Performed By: #### 44830-8 ####[facility] LABIA [id number] [place], [place] [address]HM CHEST W IVCONon 08-12-0343XF CHEST W IVCON* * *Final Report* * * DATE OF EXAM: Jan 10 2025 3:05PM [facility] 0539 - CT CHEST W [...] any questions regarding this interpretation, please call [phone]. If you are unable to reach us at the number above, please feel free to contact [facility] eRadiology at [phone]. [id number]_IDCSIACNNormalWyandot Memorial Hospital NECK SOFT TISSUE W IVCONon 59-87-9517SU NECK SOFT TISSUE W IVCON* * *Final Report* * * DATE OF EXAM: Jan 10 2025 3:05PM [facility] 0013 - CT NECK SOFT [...] amalgam. Parotid and submandibular spaces are normal. 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 Infrahyoid Neck: Hypopharynx, larynx, [...] any questions regarding this interpretation, please call [phone]. If you are unable to reach us at the number above, please feel free to contact [facility]iology at [phone]. [id number]_[id number] Memorial Hospital Neck W contrast Javier 83-98-8667HFDRTZZQSK: Redemonstration of the posttreatment related changes in [...] any questions regarding this interpretation, please call [phone]. If you are unable to reach us at the number above, please feel free to contact [facility]iology at [phone].DIVISION OF RADIOLOGY* * *Final Report* * * DATE OF EXAM: Jan 10 2025 3:05PM [facility] 0013 - CT NECK SOFT [...] amalgam. Parotid and submandibular spaces are normal. 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 Infrahyoid Neck: Hypopharynx, larynx, [...] separate accession. Other: Not applicable. DIVISION OF RADIOLOGYProvider, [facility] [place] - 01/10/2025 * * *Final Report* * * DATE OF EXAM: Jan 10 2025 3:05PM [facility] 0013 - CT NECK SOFT [...] amalgam. Parotid and submandibular spaces are normal. 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 Infrahyoid Neck: Hypopharynx, larynx, [...] any questions regarding this interpretation, please call [phone]. If you are unable to reach us at the number above, please feel free to contact [facility] at [phone]. [facility] HospitalRadiology Study observation (narrative)[facility] HospitalCT Neck W contrast IVOrdered By: Ccf Provider on 50-77-9346Lvwawtvga ClinicComprehensive metabolic 2000 panelOrdered By: Jess Baker on 71-46-0147Nhsbtcx [Mass/Vol]4.4 g/dL3.9 - 4.9 g/dLWaverly ClinicALP [Catalytic activity/Vol]79 U/L38 - 113 U/L [facility]averly ClinicALT [Catalytic activity/Vol]8 U/LLow10 - 54 U/LCleveland Clinic Anion gap [Moles/Vol]11 mmol/L8 - 15 mmol/LCleveland ClinicAST [Catalytic activity/Vol]14 U/L14 - 40 U/LCleveland ClinicBilirubin [Mass/Vol]0.6 mg/dL0.2 - 1.3 mg/dLWaverly ClinicCalcium [Mass/Vol]9.6 mg/dL8.5 - 10.2 mg/dLWaverly ClinicChloride [Moles/Vol]102 mmol/L98 - 107 mmol/LCleveland ClinicCO2 [Moles/Vol]25 mmol/L22 - 30 mmol/LCleveland ClinicCreatinine [Mass/Vol]0.68 mg/dLLow0.73 - 1.22 mg/dLPomerene HospitalGFR/1.73 sq M.predicted among non- blacks MDRD (S/P/Bld) [Vol rate/Area]101 mL/min/{1.73_m2}- [facility] Comment on above:Estimated Glomerular Filtration Rate (eGFR) is calculated using the 2020 CKD-EPI creatinine equation. This equation utilizes serum creatinine, sex, and age as parameters. The creatinine assay has traceable calibration to isotope dilution-mass spectrometry. Refer to KDIGO guidelines for clinical inte rpretation. In patients with unstable renal function, e.g. those with acute kidney injury, the eGFRmay not accurately reflect actual GFR.Glucose [Mass/Vol] 100 mg/wFOavj00 - 99 mg/dLPomerene HospitalComment on above:The [place] Diabetes Association (ADA) provides guidance for cutoff [...] Standards of Medical Care in Diabetes 2016, [place] Diabetes Association. Diabetes Care. 2016.39(Suppl 1). Interpretation and review of laboratory resultsAbnormalClevelnovant health / nhrmc ClinicPotassium [Moles/Vol]3.7 mmol/L3.7 - 5.1 mmol/LCuniversity hospitals geneva medical center ClinicProtein [Mass/Vol]6.8 g/dL 6.3 - 8.0 g/dLMercy Hospitalodium [Moles/Vol]138 mmol/L136 - 144 mmol/L [facility] HospitalUrea nitrogen [Mass/Vol]9 mg/dL9 - 24 mg/dLLakehealth Tripoint Medical CenterComprehensive metabolic 2000 panelon 36-00-9605Vulchcq [Mass/Vol]4.4 g/dLNormal3.9-4.9COhio State Harding HospitalComment on above:Order Comment: Specimen Type: BLOOD SPECIMENOrdering Facility: [facility] Address:[address], [place] [address]Performed By: #### 28657- 8 ####[facility] CENTERZULEIMA [facility] LABCLIA [id number] [place] MILESYU[facility] MEDICAL CENTERJOAQUÍNMONROEV[place], [place] [address]RJF [Catalytic activity/Vol]79 U/VKujemz18-217JezbhsbpnMercy Health [facility] Hospital on above:Order Comment: Specimen Type: BLOOD SPECIMENOrdering Facility: [facility] Address:[address] [place], [place] [address]Performed By: #### 37722-3 ####[facility] LABCLIA [id number] [place], [place] [address]DET [Catalytic activity/Vol]8 U/WIyw87-82SprvbyefaMercy Health Allen Hospital on above:Order Comment: Specimen Type: BLOOD SPECIMENOrdering Facility: [facility] Address:[address] [place], [place] [address]Performed By: #### 69578- 8 ####[facility] LABCLIA [id number] [facility] [place], [place] [address]Xuhox gap [Moles/Vol]11 mmol/LNormal8-15[facility] on above:Order Comment: Specimen Type: BLOOD SPECIMENOrdering Facility: [facility] Address:[address] [place], [place] [address]Performed By: #### 01231-1 ####[facility] LABCLIA [id number] [place], [place] [address]TQX [Catalytic activity/Vol]14 U/FVozxwu06-92UwmxqcmmjMercy Health [facility] Hospital on above:Order Comment: Specimen Type: BLOOD SPECIMENOrdering Facility: [facility] Address:[address] [place], [place] [address]Performed By: #### 56538-3 ####[facility] LABCLIA [id number] [place] [address] Bilirubin [Mass/Vol]0.6 mg/dLNormal0.2-1.3CProtestant Hospital on above:Order Comment: Specimen Type: BLOOD SPECIMENOrdering Facility: [facility] Address:[address] [place], [place] [address]Performed By: #### 83226-1 ####[facility] LABCLIA [id number] [facility] CENTERELINYUMA REGIONAL MEDICAL CENTEREVARISTOSOUTH [place], [place] [address]Qyvxcvk [Mass/Vol]9.6 mg/dLNormal8.5-10.2CProtestant Hospital on above:Order Comment: Specimen Type: BLOOD SPECIMENOrdering Facility: [facility] Address:[address] [place], [place] [address]Performed By: #### 54105-6 ####[facility] LABCLIA [id number] [facility]ENTERELINOG[place], [place] [address]Bxyqllfm [Moles/Vol]102 mmol/UHkoiny48-809ZqckqfhnhMercy Health [facility] Hospital on above: Order Comment: Specimen Type: BLOOD SPECIMENOrdering Facility: [facility] Address:[address] [place], [place] [address]Performed By: #### 94441- 8 ####[facility] LABCLIA [id number] [place], [place] [address]ER4 [Moles/Vol]25 mmol/YFkujzg91-10SxhzepydfMercy Health [facility] Hospital on above:Order Comment: Specimen Type: BLOOD SPECIMENOrdering Facility: [facility] Address:[address] [place], [place] [address]Performed By: #### 70450-3 ####[facility] LABCLIA [id number] [facility]ENTERELINYUMA REGIONAL MEDICAL CENTEREVARISTOSOUTH [place], [place] [address]Oqyhznhgqx [Mass/Vol]0.68 mg/dL Low0.73-1.22[facility] on above:Order Comment: Specimen Type: BLOOD SPECIMENOrdering Facility: [facility] Address:[address] [place], [place] [address]Performed By: #### 92337-6 ####[facility] LABCLIA [id number] [place] [address] Creatinine and Glomerular filtration rate.predicted panel (S/P/Bld)101 mL/min/1.73m???Normal>=60[facility] on above:Order Comment: Specimen Type: BLOOD SPECIMENOrdering Facility: [facility] Address:[address] [place], [place] [address]Result Comment: Estimated Glomerular Filtration Rate (eGFR) is calculated using the 2020 CKD-EPI cre atinine equation. This equation utilizes serum creatinine, sex, and age as parameters. The creatinine assay has traceable calibration to isotope dilution- mass spectrometry. Refer to KDIGO guidelines for clinical interpretation. In patients with unstable renal function, e.g. those with acute kidney injury, the eGFR may not accurately reflect actual GFR.Performed By: #### 06618-8 ####[facility] LABCLIA [id number] [place], [place] [address]Jxsmhnv [Mass/Vol]100 mg/qBMedo15-46BfgqwcftfMercy Health [facility] Hospital on above:Order Comment: Specimen Type: BLOOD SPECIMENOrdering Facility: [facility] Address:[address] [place] [address]Qipjuk Comment: The [place] Diabetes Association (ADA) provides guidance for cutoff values for fasting glucose and random glucose. The ADA defines fasting as no caloric intake for at least 8 hours. Fasting plasma glucose results between 100 to 125 mg/dL indicate increased risk for diabetes (prediab etes). Fasting plasma glucose results greater than or [...] Standards of Medical Care in Diabetes 2016, [place] Diabetes Association. Diabetes Care. 2016.39(Suppl 1).Performed By: #### 99188-1 ####[facility] LABCLIA [id number] [place], [place] [address]Okeknxwiw [Moles/Vol]3.7 mmol/LNormal3.7-5.1CProtestant Hospital on above:Order Comment: Specimen Type: BLOOD SPECIMENOrdering Facility: [facility] Address:[address] [place], [place] [address]Performed By: #### 36530-3 ####[facility] LABIA [id number] [place], [place] [address]Vzkojou [Mass/Vol]6.8 g/dLNormal6.3-8.0[facility] on above:Order Comment: Specimen Type: BLOOD SPECIMENOrdering Facility: [facility] Address:[address] [place], [place] [address]Performed By: #### 86653- 8 ####[facility] LABIA [id number] [place], [place] [address]Cpvrpa [Moles/Vol]138 mmol/HPjsqlo133-132IstpqanxxMercy Health [facility] Hospital on above:Order Comment: Specimen Type: BLOOD SPECIMENOrdering Facility: [facility] Address:[address] [place], [place] [address]Performed By: #### 62165-0 ####[facility] LABIA [id number] [place], [place] [address]Sdoi nitrogen [Mass/Vol]9 mg/dL Normal9-24[facility] on above:Order Comment: Specimen Type: BLOOD SPECIMENOrdering Facility: [facility] Address:[address] [place], [place] [address]Performed By: #### 03222-0 ####[facility] LABIA [id number] [place] [address] Auditory function testson 43-97-8775Rketw Ear: 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 Left Ear: Mild to severe sensorineural hearing loss above 500 Hz Critical access hospitalCNOVSPon 10-15-2359AAFQTTEeqxy (SP) Office ([place]) CARSON MORSE ([id number]) 1955 M Date Time Provider Department 06/29/24 11:15 AM WYATT GARZA During your visit today, we recorded the following information about you: Temperature Pulse Respiration Blood pressure 97.7 degrees 60/minute 16/minute 153/90 Height 1.651 m Wyatt Garza MD 06/30/2024 9:51 PM Signed NAME: Carson Morse CLINIC NO.: [id number] DATE OF SERVICE: June 29, 2024 (Mirian) [...] then pursue annual monitor (more content not included)...NormalPaulding County Hospital W Auto Differential panel (Bld) on 16-02-4712Ewpnlqbwx (Bld) [#/Vol]0.04 10*3/uLNINFPomerene Hospital Basophils/100 WBC (Bld)0.9 %[facility] HospitalDifferential cell count method Nom (Bld)AutoCleveland ClinicEosinophils (Bld) [#/Vol]0.04 10*3/uLNINFPomerene HospitalEosinophils/100 WBC (Bld)0.9 %[facility] HospitalErythrocyte distribution width (RBC) [Ratio]13.2 %11.5 - 15.0 %[facility] HospitalHematocrit (Bld) [Volume fraction]35.9 %Low39.0 - 51.0 %[facility] HospitalHemoglobin (Bld) [Mass/Vol]12.8 g/dLLow13.0 - 17.0 g/dLPomerene HospitalImmature granulocytes (Bld) [#/Vol]NINF [facility] HospitalImmature granulocytes/100 WBC (Bld)0.2 %[facility] Interpretation and review of laboratory resultsAbnormalCMercy Health [facility]iff[facility] Hospital Lymphocytes (Bld) [#/Vol]0.77 10*3/uLLowPomerene HospitalLymphocytes/100 WBC (Bld)18.2 %[facility] HospitalH (RBC) [Entitic mass]32.5 pg26.0 - 34.0 pg [facility] HospitalHC (RBC) [Mass/Vol]35.7 g/dL30.5 - 36.0 g/dLPomerene Hospital MCV (RBC) [Entitic vol]91.1 fL80.0 - 100.0 fLCMercy Health Tiffin HospitalMonocytes (Bld) [#/Vol]0.48 10*3/uLNINFPomerene HospitalMonocytes/100 WBC (Bld)11.4 %[facility] HospitalNeutrophils (Bld) [#/Vol]2.88 10*3/uLPomerene HospitalNeutrophils/100 WBC (Bld)68.4 %[facility] HospitalNucleated RBC (Bld) [#/Vol]NINFCMercy Health Tiffin Hospital Nucleated RBC/100 WBC (Bld) [Ratio]0.0 %/100 WBCPomerene HospitalPlatelet mean volume (Bld) [Entitic vol]10.2 fL9.0 - 12.7 fLCMercy Health Tiffin HospitalPlatelets (Bld) [#/Vol]182 10*3/uLWaverly ClinicRBC (Bld) [#/Vol]3.94 10*6/uLLow4.20 - 6.00 m/[facility] County HospitalWBC (Bld) [#/Vol]4.22 10*3/[facility] ClinicBasophils (Bld) [#/Vol]0.04 10*3/Normal<0.11COhio State Harding Hospital Comment on above:Order Comment: Specimen Type: BLOOD SPECIMENOrdering Facility: [facility] Address:[address] [place] [address] Performed By: #### 12845-2 ####[facility] LABCLIA [id number] [place], [place] [address]Wklhhzuih/100 WBC (Bld)0.9 % NormalThe Metrohealth SystemComment on above:Order Comment: Specimen Type: BLOOD SPECIMENOrdering Facility: [facility] Address:[address] [place], [place] [address]Performed By: #### 36997-4 ####[facility] LABCLIA [id number] [place] [address] Differential cell count method Nom (Bld)AutoNormalCOhio State Harding Hospital Comment on above:Order Comment: Specimen Type: BLOOD SPECIMENOrdering Facility: [facility] Address:[address] [place] [address] Performed By: #### 51753-8 ####[facility] LABIA [id number] [place], [place] [address]Htnexyemuwr (Bld) [#/Vol]0.04 10*3/uLNormal<0.46[facility] on above:Order Comment: Specimen Type: BLOOD SPECIMENOrdering Facility: [facility] Address:[address] [place], [place] [address]Performed By: #### 66209-2 ####[facility] LABIA [id number] [place], [place] [address]Vglhpibrqdq/100 WBC (Bld)0.9 %NormalMercy Health Allen Hospital on above:Order Comment: Specimen Type: BLOOD SPECIMENOrdering Facility: [facility] Address:[address] [place], [place] [address]Performed By: #### 15448-7 ####[facility] LABIA [id number] [place], [place] [address]Ficerspuoht distribution width (RBC) [Ratio]13.2 %Vijmch03.5-15.0[facility] on above: Order Comment: Specimen Type: BLOOD SPECIMENOrdering Facility: [facility] Address:[address] [place], [place] [address]Performed By: #### 02166- 8 ####[facility] LABIA [id number] [place], [place] [address]Jwvefbvcls (Bld) [Volume fraction]35.9 %Low39.0-51.0 [facility] on above:Order Comment: Specimen Type: BLOOD SPECIMENOrdering Facility: [facility] Address:[address] [place], [place] [address]Performed By: #### 05719-3 ####[facility] LABIA [id number] [place], [place] [address]Atxeshdsex (Bld) [Mass/Vol]12.8 g/dLLow13.0-17.0[facility] on above:Order Comment: Specimen Type: BLOOD SPECIMENOrdering Facility: [facility] Address:[address] [place], [place] [address]Performed By: #### 47066- 8 ####[facility] LABCLIA [id number] [place], [place] [address]Gwysthdr granulocytes (Bld) [#/Vol]10*3/uLNormal<0.10 [facility] on above:Order Comment: Specimen Type: BLOOD SPECIMENOrdering Facility: [facility] Address:[address] [place], [place] [address]Performed By: #### 87780-9 ####[facility] LABCLIA [id number] [place], [place] [address]Fxptgjiv granulocytes/100 WBC (Bld)0.2 %[facility] on above: Order Comment: Specimen Type: BLOOD SPECIMENOrdering Facility: [facility] Address:[address] [place], [place] [address]Performed By: #### 37353- 8 ####[facility] LABCLIA [id number] [place], [place] [address]Bmrwaoxwidj (Bld) [#/Vol]0.77 10*3/uLLow1.00-4.00 [facility] on above:Order Comment: Specimen Type: BLOOD SPECIMENOrdering Facility: [facility] Address:[address] [place], [place] [address]Performed By: #### 41361-9 ####[facility] LABCLIA [id number] [place], [place] [address]Wxyueyorypj/100 WBC (Bld)18.2 %NormalMercy Health Allen Hospital on above:Order Comment: Specimen Type: BLOOD SPECIMENOrdering Facility: [facility] Address:[address] [place], [place] [address]Performed By: #### 41832-9 ####[facility] LABCLIA [id number] [place], [place] [address]KFA (RBC) [Entitic mass]32.5 cvPzixzl38.0-34.0[facility] on above:Order Comment: Specimen Type: BLOOD SPECIMENOrdering Facility: [facility] Address:[address] [place], [place] [address]Performed By: #### 90124-3 ####[facility] LABCLIA [id number] [place], [place] [address]ATNQ (RBC) [Mass/Vol]35.7 g/dLTnvtcd65.5-36.0[facility] on above: Order Comment: Specimen Type: BLOOD SPECIMENOrdering Facility: [facility] Address:[address] [place], [place] [address]Performed By: #### 57898- 8 ####[facility] LABIA [id number] [place], [place] [address]FJI (RBC) [Entitic vol]91.1 bVNhbqyx51.0-100.0[facility] on above:Order Comment: Specimen Type: BLOOD SPECIMENOrdering Facility: [facility] Address:[address] [place], [place] [address]Performed By: #### 05624-1 ####[facility] LABIA [id number] [place], [place] [address]Camcvhoiy (Bld) [#/Vol]0.48 10*3/uLNormal<0.87[facility] on above:Order Comment: Specimen Type: BLOOD SPECIMENOrdering Facility: [facility] Address:[address] [place], [place] [address]Performed By: #### 04863- 8 ####[facility] LABIA [id number] [place], [place] [address]Kizzuxxiz/100 WBC (Bld)11.4 %NormalMercy Health Allen Hospital on above:Order Comment: Specimen Type: BLOOD SPECIMENOrdering Facility: [facility] Address:[address] [place], [place] [address]Performed By: #### 64965-4 ####[facility] LABCLIA [id number] [place], [place] [address]Qcdvmlkrtac (Bld) [#/Vol]2.88 10*3/uLNormal1.45-7.50[facility] on above:Order Comment: Specimen Type: BLOOD SPECIMENOrdering Facility: [facility] Address:[address] [place], [place] [address]Performed By: #### 46463-3 ####[facility] LABCLIA [id number] [place], [place] [address]Ybktfeepqun/100 WBC (Bld)68.4 %NormalMercy Health Allen Hospital on above:Order Comment: Specimen Type: BLOOD SPECIMENOrdering Facility: [facility] Address:[address] [place], [place] [address]Performed By: #### 66617-3 ####[facility] LABCLIA [id number] [place], [place] [address]Olhjukkqi RBC (Bld) [#/Vol] 10*3/uLNormal<0.01[facility] on above:Order Comment: Specimen Type: BLOOD SPECIMENOrdering Facility: [facility] Address:[address] [place], [place] [address]Performed By: #### 57335-3 ####[facility] LABCLIA [id number] [place], [place] [address]Ixxxyunjl RBC/100 WBC (Bld) [Ratio]0.0 /100 WBCNormal [facility] on above:Order Comment: Specimen Type: BLOOD SPECIMENOrdering Facility: [facility] Address:[address] [place], [place] [address]Performed By: #### [id number] ####[facility] LABCLIA [id number] [place], [place] [address]Flkfibdg mean volume (Bld) [Entitic vol]10.2 fLNormal9.0-12.7CPro[facility] on above:Order Comment: Specimen Type: BLOOD SPECIMENOrdering Facility: [facility] Address:[address] [place] [address] Performed By: #### [id number] ####[facility] LABCLIA [id number] [place], [place] [address]Acfgnbnuz (Bld) [#/Vol]182 10*3/tIZydcoy862-968YywzclxhhMer[facility] on above:Order Comment: Specimen Type: BLOOD SPECIMENOrdering Facility: [facility] Address:[address] [place], [place] [address]Performed By: #### [id number] ####[facility] LABCLIA [id number] [place], [place] [address]GON (Bld) [#/Vol]3.94 10*6/uLLow4.20-6.00[facility] on above:Order Comment: Specimen Type: BLOOD SPECIMENOrdering Facility: [facility] Address:[address] [place], [place] [address]Performed By: #### 77418-9 ####[facility] LABCLIA [id number] [place], [place] [address]BTQ (Bld) [#/Vol]4.22 10*3/uL Normal3.70-11.00[facility] on above:Order Comment: Specimen Type: BLOOD SPECIMENOrdering Facility: [facility] Address:[address] [place], [place] [address]Performed By: #### 72351-5 ####[facility] LABCLIA [id number] [place], [place] [address]EF CHEST W IVCONon [id number] CHEST W IVCON* * *Final Report* * * DATE OF EXAM: Jun 22 2024 9:02AM [facility] 0539 - CT CHEST W [...] abdomen: Visualized upper abdomen is grossly unremarkable. [employer] (topogram) images: Unremarkable. IMPRESSION: Previously identified new [...] any questions regarding this interpretation, please call [phone]. If you are unable to reach us at the number above, please feel free to contact [facility]Radiology at [phone]. [id number] Metrohealth SystemCT Chest W contrast Javier 18-52-8486PIKQXZLBFC: Previously identified new pulmonary nodules have resolved [...] any questions regarding this interpretation, please call [phone]. If you are unable to reach us at the number above, please feel free to contact [facility]iology at [phone].DIVISION OF RADIOLOGY* * *Final Report* * * DATE OF EXAM: Jun 22 2024 9:02AM [facility] 0539 - CT CHEST W [...] abdomen: Visualized upper abdomen is grossly unremarkable. [employer] (topogram) images: Unremarkable. DIVISION OF RADIOLOGYProvider, [facility] [place] - 06/22/2024 * * *Final Report* * * DATE OF EXAM: Jun 22 2024 9:02AM [facility] 0539 - CT CHEST W [...] abdomen: Visualized upper abdomen is grossly unremarkable. [employer] (topogram) images: Unremarkable. IMPRESSION IMPRESSION: Previously identified [...] any questions regarding this interpretation, please call [phone]. If you are unable to reach us at the number above, please feel free to contact [facility] at [phone]. [facility] HospitalRadiology Study observation (narrative)[facility] Chest W contrast IVOrdered By: Ccf Provider on 55-69-2517Uvrmmkrij ClinicComprehensive metabolic 2000 panelOrdered By: Les Luke on 80-28-1686Lagneww [Mass/Vol]5.1 g/dLHigh3.9 - 4.9 g/dLClemercy health st. [facility] ClinicALP [Catalytic activity/Vol]88 U/L38 - 113 U/LCleveland ClinicALT [Catalytic activity/Vol]15 U/L10 - 54 U/LCleveland Clinic Anion gap [Moles/Vol]9 mmol/L8 - 15 mmol/LCleveland ClinicAST [Catalytic activity/Vol]33 U/L14 - 40 U/LCleveland ClinicBilirubin [Mass/Vol]1.1 mg/dL0.2 - 1.3 mg/dLClemercy health st. [facility]ose[facility] hospital ClinicCalcium [Mass/Vol]10.3 mg/dLHigh8.5 - 10.2 mg/dL [facility] HospitalChloride [Moles/Vol]97 mmol/LLow98 - 107 mmol/LCleveland Clinic CO2 [Moles/Vol]26 mmol/L22 - 30 mmol/LCleveland ClinicCreatinine [Mass/Vol]0.96 mg/dL0.73 - 1.22 mg/dLWaverly ClinicGFR/1.73 sq M.predicted among non-blacks MDRD (S/P/Bld) [Vol rate/Area]87 mL/min/{1.73_m2}- PINFCleveland ClinicComment on above:Estimated Glomerular Filtration Rate (eGFR) is calculated using the 2020 CKD-EPI creatinine equation. This equation utilizes serum creatinine, sex, and age as parameters. The creatinine assay has traceable calibration to isotope dilution-mass spectrometry. Refer to KDIGO guidelines for clinical inte rpretation. In patients with unstable renal function, e.g. those with acute kidney injury, the eGFRmay not accurately reflect actual GFR.Glucose [Mass/Vol] 104 mg/cZFoge34 - 99 mg/dLCincinnati Children's Hospital Medical Center on above:The [place] Diabetes Association (ADA) provides guidance for cutoff [...] Standards of Medical Care in Diabetes 2016, [place] Diabetes Association. Diabetes Care. 2016.39(Suppl 1). Interpretation and review of laboratory resultsAbnormalCleveland ClinicPotassium [Moles/Vol]5.0 mmol/L3.7 - 5.1 mmol/LCuniversity hospitals geneva medical center ClinicProtein [Mass/Vol]7.9 g/dL 6.3 - 8.0 g/dLMercy Hospitalodium [Moles/Vol]132 mmol/YNrv911 - 144 mmol/L [facility] HospitalUrea nitrogen [Mass/Vol]11 mg/dL9 - 24 mg/dLLakehealth Tripoint Medical CenterComprehensive metabolic 2000 panelon 46-89-8569Brzuark [Mass/Vol]5.1 g/dLHigh3.9-4.9CProtestant Hospital on above:Order Comment: Specimen Type: BLOOD SPECIMENOrdering Facility: [facility] Address:[address] [place], [place] [address]Mkuxxacxk By: #### 58091- 8 ####[facility] CENTERZULEIMA [facility] LABCLIA [id number] [place], [place] [address]RLT [Catalytic activity/Vol]88 U/OGjlbff92-836NlhztsijqMercy Health Allen Hospital on above:Order Comment: Specimen Type: BLOOD SPECIMENOrdering Facility: [facility] Address:[address] [place], [place] [address]Performed By: #### 23710-5 ####[facility] LABCLIA [id number] [place] [address]MYV [Catalytic activity/Vol]15 U/JOpavbu77-50RdjwtqvrqMercy Health Allen Hospital on above:Order Comment: Specimen Type: BLOOD SPECIMENOrdering Facility: [facility] Address:[address] [place], [place] [address]Performed By: #### 13679- 8 ####[facility] LABCLIA [id number] [place] MILESYUMA REGIONAL MEDICAL CENTERJOAQUÍNMONRO[place], [place] [address]Eeeak gap [Moles/Vol]9 mmol/LNormal8-15[facility] on above:Order Comment: Specimen Type: BLOOD SPECIMENOrdering Facility: [facility] Address:[address] [place], [place] [address]Performed By: #### 12846-5 ####[facility] LABCLIA [id number] [place], [place] [address]ZCS [Catalytic activity/Vol]33 U/FDabskc62-46JsriepgleMercy Health Allen Hospital on above:Order Comment: Specimen Type: BLOOD SPECIMENOrdering Facility: [facility] Address:[address] [place], [place] [address]Performed By: #### 75751-0 ####[facility] LABCLIA [id number] [place] [address] Bilirubin [Mass/Vol]1.1 mg/dLNormal0.2-1.3CProtestant Hospital on above:Order Comment: Specimen Type: BLOOD SPECIMENOrdering Facility: [facility] Address:[address] [place], [place] [address]Performed By: #### 04696-3 ####[facility] LABCLIA [id number] NEIL DILLONELINYUMA REGIONAL MEDICAL CENTERJOAQUÍNMONROEVILLE, [place] [address]Iuqzygr [Mass/Vol]10.3 mg/dLHigh8.5-10.2CProtestant Hospital on above:Order Comment: Specimen Type: BLOOD SPECIMENOrdering Facility: [facility] Address:[address] [place], [place] [address]Performed By: #### 45912-4 ####[facility] LABCLIA [id number] [place], [place] [address]Cuqelygf [Moles/Vol]97 mmol/GZbz62-996KjbveqnkwMercy Health Allen Hospital on above:Order Comment: Specimen Type: BLOOD SPECIMENOrdering Facility: [facility] Address:[address] [place], [place] [address]Performed By: #### 42479- 8 ####[facility] LABCLIA [id number] [place], [place] [address]OV1 [Moles/Vol]26 mmol/SYmmxne51-00OgvxjvmsfMercy Health Allen Hospital on above:Order Comment: Specimen Type: BLOOD SPECIMENOrdering Facility: [facility] Address:[address] [place], [place] [address]Performed By: #### 36632-9 ####[facility] LABCLIA [id number] [place], [place] [address]Vvevjeysha [Mass/Vol]0.96 mg/dL Normal0.73-1.22[facility] on above:Order Comment: Specimen Type: BLOOD SPECIMENOrdering Facility: [facility] Address:[address] [place], [place] [address]Performed By: #### 60162-8 ####[facility] LABCLIA [id number] [place], [place] [address]Xeyhkhbqkt and Glomerular filtration rate.predicted panel (S/P/Bld)87 mL/min/1.73m???Normal>=60[facility] on above:Order Comment: Specimen Type: BLOOD SPECIMENOrdering Facility: [facility] Address:[address] [place], [place] [address]Result Comment: Estimated Glomerular Filtration Rate (eGFR) is calculated using the 2020 CKD-EPI creatinine equation. This equation utilizes serum creatinine, sex, and age as parameters. The creatinine assay has traceable calibration to isotope dilution- mass spectrometry. Refer to KDIGO guidelines for clinical interpretation. In patients with unstable renal function, e.g. those with acute kidney injury, the eGFR may not accurately reflect actual GFR.Performed By: #### 72993-4 ####[facility] LABCLIA [id number] [place], [place] [address]Fmysowi [Mass/Vol]104 mg/uHVilh51-19DkihrnhxyMercy Health Allen Hospital on above:Order Comment: Specimen Type: BLOOD SPECIMENOrdering Facility: [facility] Address:[address] [place] [address]Lptcnd Comment: The [place] Diabetes Association (ADA) provides guidance for cutoff values for fasting glucose and random glucose. The ADA defines fasting as no caloric intake for at least 8 hours. Fasting plasma glucose results between 100 to 125 mg/dL indicate increased risk for diabetes (prediab etes). Fasting plasma glucose results greater than or [...] Standards of Medical Care in Diabetes 2016, [place] Diabetes Association. Diabetes Care. 2016.39(Suppl 1).Performed By: #### 21493-1 ####[facility] LABCLIA [id number] [place], [place] [address]Qpchfzrug [Moles/Vol]5.0 mmol/LNormal3.7-5.1CProtestant Hospital on above:Order Comment: Specimen Type: BLOOD SPECIMENOrdering Facility: [facility] Address:[address] [place], [place] [address]Vwvqastfs By: #### 84585-6 ####[facility] LABCLIA [id number] [place], [place] [address]Dwrifhq [Mass/Vol]7.9 g/dLNormal6.3-8.0[facility] on above:Order Comment: Specimen Type: BLOOD SPECIMENOrdering Facility: [facility] Address:[address] [place] [address]Feyuvsjxb By: #### 69438- 8 ####[facility] LABCLIA [id number] [place], [place] [address]Hcjqfe [Moles/Vol]132 mmol/BKhj842-064GcfosfsolMercy Health Allen Hospital on above:Order Comment: Specimen Type: BLOOD SPECIMENOrdering Facility: [facility] Address:[address] [place], [place] [address]Performed By: #### 92555-0 ####[facility] LABCLIA [id number] [place], [place] [address]Zjzz nitrogen [Mass/Vol]11 mg/dLNormal9-24[facility] on above:Order Comment: Specimen Type: BLOOD SPECIMENOrdering Facility: [facility] Address:[address] [place] [address]Aqrzpddai By: #### 96311-5 ####[facility] CENTERZULEIMA [facility] LABCLIA [id number] [place], [place] [address]OHNDfy [id number] (MYLA) CARSON MORSE ([id number]) 1955 M Date Time Provider Department 06/12/24 [...] liver [K76.0] Order(s):ALPHA FETOPROTEIN [SQAFP] Order #: [id number] FUTURE US ABD RIGHT UPPER QUADRANT [[id number]] Order #: [id number] FUTURE DDI VIBRATION CONTROLLED TRANSIENT ELASTOGRAPHY (VCTE) [[id number]] Order #: [id number] Prescriptions as of 06/19/2024 - levoFLOXacin (LEVAQUIN) [...] 12/18/2020 Encounter Status:Closed by EMILY ARMSTRONG on 06/19/24[facility] CenterUS ABD RIGHT UPPER QUADRANTon 14-17-2921PJ ABD RIGHT UPPER QUADRANT* * *Final Report* * * DATE OF [...] the liver which may reflect mild/early cirrhosis. Haulage Boss: ALEJO Transcribe Date/Time: May 28 2024 7:30P Dictated by : IVANNA CROFT MD This examination was interpreted and the report reviewed and electronically signed by: IVANNA CROFT MD on May 28 2024 7:33PM EST [id number] State Health System Abdomen RUQon 60-53-6323YNAKHMETQL: 1. Increase echogenicity the liver, likely secondary to hepatic steatosis. There is questionable minimal nodularity on the contour of the liver which may reflect mild/early cirrhosis. [employer]ulage Boss: ALEJO Transcribe Date/Time: May 28 2024 7:30P Dictated by : IVANNA CROFT MD This examination was interpreted and the report reviewed and electronically signed by: IVANNA CROFT MD on May 28 2024 7:33PM EST DIVISION OF RADIOLOGY* * *Final Report* * * DATE OF [...] Kidney: No hydronephrosis. Ascites: None. DIVISION OF RADIOLOGYProvider, [facility] [place] - 05/28/2024 * * *Final Report* * * DATE OF EXAM: May 28 2024 2:28PM U 1032 - US ABD RIGHT UPPER QUADRANT [...] the liver which may reflect mild/early cirrhosis. [employer]age Boss: ALEJO Transcribe Date/Time: May 28 2024 7:30P Dictated by : IVANNA CROFT MD This examination was interpreted and the report reviewed and electronically signed by: IVANNA CROFT MD on May 28 2024 7:33PM [facility] Centeriology Study observation (narrative)[facility] Abdomen RUQOrdered By: Ccf Provider on 15-73-7037Gjwnbmxrc ClinicCNPNon 20-58-6809OMNBVyjlcmlzi (GASTNO) CARSON MORSE ([id number]) 1955 M Date Time Provider Department 05/24/24 HALIMA NIXON During your visit today, we recorded the following information about you: Emily Armstrong RN 05/24/2024 9:56 AM Addendum ----- Message from Halima Nixon MD sent at 05/23/2024 2:56 PM EDT ----- Negative hep C RNA consistent with sustained response Repeat in one year Reviewed test results Pt read result message from Dr. Nixon via [employer]. Called and spoke to patient regarding test results and recommendation from Dr. Nixon Pt state dUS is sched for [place] Demonstrated understanding Dr. Lund, Orders submitted for repeat Hep C RNA Please review and sign ThanksEmily RN Allergies As of Date: 05/24/2024 (No Known Allergies) Date Reviewed: 03/30/2024 Reviewed by: Felipa Sosa MA - Fully Assessed Primary Visit Diagnosis:Chronic hepatitis C without hepatic coma (HCC) [B18.2] Order(s):HEPATITIS C RNA QUANTIFICATION BY PCR, PLASMA/SERUM [SQHCQPCR] Order #: [id number] FUTURE Prescriptions as of 06/11/2024 - levoFLOXacin [...] 12/18/2020 Encounter Status:Closed by EMILY ARMSTRONG on 05/24/24NormalCOhio State Harding HospitalHCV RNA SerPl PAULA+probe-aCncon 99-25-6192NGU RNA PAULA+probe QnNot detectedNormalHCV RNA not detected by PCR.The Metrohealth SystemComment on above:Order Comment: Specimen Type: BLOOD SPECIMENOrdering Facility: [facility] Address:[address] [place], [place] [address]Performed By: #### 99637-8 ####[facility] LABCLIA [id number] [facility] [id number] OF [facility] EASTCNPNon 20-81-7764TZFP Telephone (MYLA) CARSON MORSE ([id number]) 1955 M Date Time Provider Department 05/17/24 [...] LFTs [R79.89] Order(s):US ABD RIGHT UPPER QUADRANT [[id number]] Order #: [id number] FUTURE HEPATITIS C RNA QUANTIFICATION BY PCR, PLASMA/SERUM [SQHCQPCR] Order #: [id number] FUTURE Prescriptions as of 05/21/2024 - levoFLOXacin [...] 12/18/2020 Encounter Status:Closed by EMILY ARMSTRONG on 05/21/24[facility] CenterCNOVSPon 55-63-8889BPBETVCoyqk (SP) Office (HEMASA) CARSON MORSE ([id number]) 1955 M Date Time Provider Department 03/30/24 2:45 PM WYATT GARZA During your visit today, we recorded the following information about you: Temperature Pulse Respiration Blood pressure 97.2 degrees 82/minute 16/minute 129/79 Weight Height 64 kg 1.651 m Wyatt Garza MD 04/01/2024 9:31 AM Signed NAME: Carson Morse CLINIC NO.: [id number] DATE OF SERVICE: March 30, 2024 ([facility]) Some elements in this clinic note that [...] returns today, he has (more content not included)...NormalThe Metrohealth SystemCREATININE BLDOrdered By: Rufina Ibarra on 03-02-7269Jcvegmxedn [Mass/Vol]0.84 mg/dL0.73 - 1.22 mg/dLPomerene HospitalGFR/1.73 sq M.predicted among non-blacks MDRD (S/P/Bld) [Vol rate/Area]96 mL/min/{1.73_m2}- PINF [facility] on above:Estimated Glomerular Filtration Rate (eGFR) is calculated using the 2020 CKD-EPI creatinine equation. This equation utilizes serum creatinine, sex, and age as parameters. The creatinine assay has traceable calibration to isotope dilution-mass spectrometry. Refer to KDIGO guidelines for clinical interpretation. In patients with unstable renal function, e.g. those with acute kidney injury, the eGFRmay not accurately reflect actual GFR. Interpretation and review of laboratory resultsNormalCleveland Adams County HospitalCREATININE BLDon 54-39-2171Djhdswajie [Mass/Vol]0.84 mg/dLNormal0.73-1.22 [facility] on above:Order Comment: Specimen Type: BLOOD SPECIMENOrdering Facility: [facility] Address:[address] [place], [place] [address]Performed By: #### CRET1 ####[facility] LABCLIA [id number] [place], [place] [address]Jcplshvodx and Glomerular filtration rate.predicted panel (S/P/Bld)96 mL/min/1.73m???Normal>=60 [facility] on above:Order Comment: Specimen Type: BLOOD SPECIMENOrdering Facility: [facility] Address:[address] [place] [address]Brgvdy Comment: Estimated Glomerular Filtration Rate (eGFR) is calculated using the 2020 CKD-EPI creatinine equation. This equation utilizes serum creatinine, sex, and age as parameters. The creatinine assay has traceable calibration to isotope dilution-mass spectrometry. Refer to KDIGO guidelines for clinical interpretation. In patients with unstable renal function, e.g. those with acute kidney injury, the eGFR may not accurately reflect actual GFR.Performed By: #### CRET1 ####[facility]ENTERAST [facility] LABCLIA [id number] [place], [place] [address]SW CHEST W IVCONon 54-91-7886XJ CHEST W IVCON* * *Final Report* * * DATE OF EXAM: Mar 23 2024 8:49AM [facility] 0539 - CT CHEST W [...] of an adrenal mass in the visualized ziibf-bs-olwm. Fat-containing epigastric anterior abdominal hernia.. [employer] (topogram) images: No additional findings. IMPRESSION: 1. [...] any questions regarding this interpretation, please call [phone]. If you are unable to reach us at the number above, please feel free to contact [facility] eRadiology at [phone]. [id number] Memorial Hospital Chest W contrast Javier 51-31-3772AZFOCZPWLR: 1. New subcentimeter nodular opacities measuring less [...] any questions regarding this interpretation, please call [phone]. If you are unable to reach us at the number above, please feel free to contact [facility]iology at [phone].DIVISION OF RADIOLOGY* * *Final Report* * * DATE OF EXAM: Mar 23 2024 8:49AM [facility] 0539 - CT CHEST W [...] of an adrenal mass in the visualized mqeia-gd-lpfa. Fat-containing epigastric anterior abdominal hernia.. [employer] (topogram) images: No additional findings. DIVISION OF RADIOLOGYProvider, [facility] [place] - 03/23/2024 * * *Final Report* * * DATE OF EXAM: Mar 23 2024 8:49AM [facility] 0539 - CT CHEST W [...] of an adrenal mass in the visualized wsmdf-fx-qobf. Fat-containing epigastric anterior abdominal hernia.. [employer] (topogram) images: No additional findings. IMPRESSION IMPRESSION: [...] any questions regarding this interpretation, please call [phone]. If you are unable to reach us at the number above, please feel free to contact [facility]Radiology at [phone]. [facility] HospitalRadiology Study observation (narrative)[facility] HospitalCT Chest W contrast IVOrdered By: Ccf Provider on 79-50-7816Rajekipwq [facility] W Auto Differential panel (Bld)on 98-79-2453Cfdpcvbcr (Bld) [#/Vol]0.05 10*3/uLNINF [facility] HospitalBasophils/100 WBC (Bld)1.2 %[facility] HospitalDifferential cell count method Nom (Bld)AutoCleveland ClinicEosinophils (Bld) [#/Vol]0.04 10*3/uL NINFClevelnovant health / nhrmc ClinicEosinophils/100 WBC (Bld)0.9 %[facility] HospitalErythrocyte distribution width (RBC) [Ratio]13.1 %11.5 - 15.0 %[facility] HospitalHematocrit (Bld) [Volume fraction]38.0 %Low39.0 - 51.0 %[facility] HospitalHemoglobin (Bld) [Mass/Vol]12.9 g/dLLow13.0 - 17.0 g/dLPomerene HospitalImmature granulocytes (Bld) [#/Vol]NINFCleveland ClinicImmature granulocytes/100 WBC (Bld)0.2 % [facility] HospitalInterpretation and review of laboratory resultsAbnormalCleveland ClinicLymphocytes (Bld) [#/Vol]0.83 10*3/uLLowCleMercy Health St. Anne HospitalLymphocytes/100 WBC (Bld)19.5 %[facility] HospitalH (RBC) [Entitic mass]31.7 pg26.0 - 34.0 pg [facility] HospitalHC (RBC) [Mass/Vol]33.9 g/dL30.5 - 36.0 g/dLPomerene Hospital MCV (RBC) [Entitic vol]93.4 fL80.0 - 100.0 fLCMercy Health Tiffin HospitalMonocytes (Bld) [#/Vol]0.37 10*3/uLNINFPomerene HospitalMonocytes/100 WBC (Bld)8.7 %[facility] HospitalNeutrophils (Bld) [#/Vol]2.95 10*3/uLPomerene HospitalNeutrophils/100 WBC (Bld)69.5 %[facility] HospitalNucleated RBC (Bld) [#/Vol]NINFCMercy Health Tiffin Hospital Nucleated RBC/100 WBC (Bld) [Ratio]0.0 %/100 WBCPomerene HospitalPlatelet mean volume (Bld) [Entitic vol]9.6 fL9.0 - 12.7 fLCMercy Health Tiffin HospitalPlatelets (Bld) [#/Vol]197 10*3/[facility] County HospitalRBC (Bld) [#/Vol]4.07 10*6/uLLow4.20 - 6.00 m/[facility] County HospitalWBC (Bld) [#/Vol]4.25 10*3/uLCommunity Regional Medical Center ClinicCT Chest W contrast Javier 34-53-7801CSLXFDITRJ: 1. Stable appearance of bilateral pulmonary nodules. [...] any questions regarding this interpretation, please call [phone]. If you are unable to reach us at the number above, please feel free to contact [facility] eRadiology at [phone].DIVISION OF RADIOLOGY* * *Final Report* * * DATE OF EXAM: Dec 16 2023 10:46AM [facility] 0539 - CT CHEST W [...] No abnormality in the imaged upper abdomen. [employer] (topogram) images: No additional findings. DIVISION OF RADIOLOGYProvider, [facility] [place] - 12/16/2023 * * *Final Report* * * DATE OF EXAM: Dec 16 2023 10:46AM [facility] 0539 - CT CHEST W [...] No abnormality in the imaged upper abdomen. [employer] (topogram) images: No additional findings. IMPRESSION IMPRESSION: [...] any questions regarding this interpretation, please call [phone]. If you are unable to reach us at the number above, please feel free to contact [facility] Hospitaliology at [phone]. Pome[facility] HospitalCT Chest W contrast IVOrdered By: Ccf Provider on 12-16-2023 Pomerene HospitalCT Neck W contrast Javier 26-42-7310CXGSICEWPM: Stable appearance of the soft tissues of [...] any questions regarding this interpretation, please call [phone]. If you are unable to reach us at the number above, please feel free to contact [facility] at [phone].DIVISION OF RADIOLOGY* * *Final Report* * * DATE OF EXAM: Dec 16 2023 10:46AM [facility] 0013 - CT NECK SOFT [...] The soft tissue planes of the adjacent stock controller spaces are maintained. Mild dystrophic calcification is [...] lung apices. Other: Not applicable. DIVISION OF RADIOLOGYProvider, [facility] [place] - 12/16/2023 * * *Final Report* * * DATE OF EXAM: Dec 16 2023 10:46AM [facility] 0013 - CT NECK SOFT [...] The soft tissue planes of the adjacent stock controller spaces are maintained. Mild dystrophic calcification is [...] any questions regarding this interpretation, please call [phone]. If you are unable to reach us at the number above, please feel free to contact [facility] eRadiology at [phone]. [facility] Doctors HospitalComprehensive metabolic 2000 panelOrdered By: Les Luke on 08-69-9971Solfawr [Mass/Vol]4.4 g/dL3.9 - 4.9 g/dLWaverly ClinicALP [Catalytic activity/Vol]76 U/L38 - 113 U/LCleveland ClinicALT [Catalytic activity/Vol]9 U/LLow10 - 54 U/LCleveland ClinicAnion gap [Moles/Vol] 11 mmol/L9 - 18 mmol/LCleveland ClinicAST [Catalytic activity/Vol]21 U/L14 - 40 U/LCleveland ClinicBilirubin [Mass/Vol]0.8 mg/dL0.2 - 1.3 mg/dLPomerene Hospital Calcium [Mass/Vol]10.2 mg/dL8.5 - 10.2 mg/dLWaverly ClinicChloride [Moles/Vol] 99 mmol/L97 - 105 mmol/LCleveland ClinicCO2 [Moles/Vol]25 mmol/L22 - 30 mmol/L [facility] HospitalCreatinine [Mass/Vol]0.84 mg/dL0.73 - 1.22 mg/dLPomerene Hospital GFR/1.73 sq M.predicted among non-blacks MDRD (S/P/Bld) [Vol rate/Area]96 mL/min/{1.73_m2}- PINFCsumma health wadsworth - rittman medical centerand Ely-Bloomenson Community HospitalComment on above:Estimated Glomerular Filtration Rate (eGFR) is calculated using the 2020 CKD-EPI creatinine equation. This equation utilizes serum creatinine, sex, and age as parameters. The creatinine assay has traceable calibration to isotope dilution-mass spectrometry. Refer to KDIGO guidelines for clinical interpretation. In patients with unstable renal function, e.g. those with acute kidney injury, the eGFRmay not accurately reflect actual GFR.Glucose [Mass/Vol]99 mg/dL74 - 99 mg/dL [facility] HospitalComment on above:The [place] Diabetes Association (ADA) provides guidance for cutoff values for fasting glucose andrandom glucose. The ADA defines fasting as no caloric intake for at least 8 hours. Fasting plasma gl ucose results between 100 to 125 mg/dL indicate [...] Standards of Medical Care in Diabetes 2016, [place] Diabetes Association. Diabetes Care. 2016.39(Suppl 1). Interpretation and review of laboratory resultsAbnormalCleveland ClinicPotassium [Moles/Vol]4.5 mmol/L3.7 - 5.1 mmol/LClevelnovant health / nhrmc ClinicProtein [Mass/Vol]7.2 g/dL 6.3 - 8.0 g/dLClemercy health st. [facility] ClinicSodium [Moles/Vol]135 mmol/YKup822 - 144 mmol/L [facility] ClinicUrea nitrogen [Mass/Vol]12 mg/dL9 - 24 mg/dLThe [facility]health System ClinicNo Panel Informationon 19-80-8330Yeeccknan Study observation (narrative)[facility] HospitalProvider Letteron [id number] Letter March 16, 20[address]SE [address] [place] [id number] CARSON MORSE 1955 Dear Lito , We have been trying to reach you with no success as your voicemail was full. You had an appointmentscheduled with Dr. Sushil Edgar ([facility]) on April 12 which will need to be rescheduled since he has retired - we can reschedule you with another provider in our practice. Please contact the office at the number listed below to get this appointment rescheduled at your earliest convenience. Thank you for your prompt attention to this matter. Please call [phone] and choose the counter sales representative option. Sincerely, [facility] [address], [place] [address] XpmafeZpukdvMiami Valley HospitalProvider Letteron 03-03-2023 Provider Letter March 03, 2023 CARSON MORSE [address] [place] [address] CARSON MORSE 1955 Dear Thom , We have been trying to reach you with no success. You have an appointment with Dr. Sushil Edgar on 04/12/2023 which will need to be rescheduled. Please contact the office at the number listed below to get this appointment rescheduled at your earliest convenience. Thank you for your prompt attention to this matter. Sincerely, [facility] [address], [place] [address] CbhczoBteljdMiami Valley HospitalXR ANKLE RT MIN 3 VIEWSon 04-53-7669ED ANKLE RT MIN 3 VIEWSEXAM: XR ANKLE RT MIN 3 VIEWS HISTORY: [...] Electronically authenticated by: ACE ARREOLA Date: 2023-01-27 14:40[facility] HospitalXR ANKLE RT MIN 3 VIEWSon 13-28-8972TL ANKLE RT MIN 3 VIEWS EXAM: XR [...] Electronically authenticated by: BENEDICTO THAO Date: 2022-12-29 12:44[facility] HospitalFERRITIN BLDon 75-39-1132Fpgczeuy [Mass/Vol]807.0 ng/tUFctr95.3 - 565.7 ng/mLCleveland ClinicFOLATE SERUMon 85-42-1122Dqmiss [Mass/Vol]10.7 ng/mL4.7 - PINF ng/mLCleveland ClinicFerritin [Mass/Vol]on 12-16-2022 Interpretation and review of laboratory resultsAbnormalCleveland ClinicIron and Iron binding capacity panelon 78-46-5065Wyvxietphzmezy and review of laboratory resultsAbnormalCleveland ClinicIron [Mass/Vol]213 ug/xREfry51 - 186 ug/dL [facility] HospitalIron binding capacity [Mass/Vol]421 ug/dIMove592 - 386 ug/dL [facility] HospitalIron/TIBC [Molar ratio]50.6 %15.0 - 57.0 %[facility] CenterNo Panel Informationon 52-16-1323Lttvaktbnxclyu and review of laboratory resultsNormalCsumma health wadsworth - rittman medical centerand [facility] BLD on 26-43-9371ZVH Qn2.470 m[IU]/LCleveland [facility] Qnon 12-16-2022 Interpretation and review of laboratory resultsNormalCMercy Health Tiffin HospitalVITAMIN B12 BLOODon 67-87-0839Tgikalgli (Vitamin B12) [Mass/Vol]276 pg/mL232 - 1245 pg/mL [facility] W Auto Differential panel (Bld)on 98-70-4017Yfdxlppdv (Bld) [#/Vol]0.05 10*3/uLNINFWaverly ClinicBasophils/100 WBC (Bld)1.1 %[facility] HospitalDifferential cell count method Nom (Bld)AutoCleveland ClinicEosinophils (Bld) [#/Vol]0.04 10*3/uLNINFWaverly ClinicEosinophils/100 WBC (Bld)0.9 % [facility] HospitalErythrocyte distribution width (RBC) [Ratio]13.4 %11.5 - 15.0 % [facility] HospitalHematocrit (Bld) [Volume fraction]36.7 %Low39.0 - 51.0 % [facility] HospitalHemoglobin (Bld) [Mass/Vol]12.5 g/dLLow13.0 - 17.0 g/dLPomerene HospitalImmature granulocytes (Bld) [#/Vol]NINFCleveland ClinicImmature granulocytes/100 WBC (Bld)0.2 %[facility] HospitalInterpretation and review of laboratory resultsAbnormalCsumma health wadsworth - rittman medical centerand ClinicLymphocytes (Bld) [#/Vol]0.60 10*3/uL LowPomerene HospitalLymphocytes/100 WBC (Bld)13.5 %[facility] HospitalH (RBC) [Entitic mass]33.8 pg26.0 - 34.0 pgClevelNorthfield City HospitalHC (RBC) [Mass/Vol]34.1 g/dL30.5 - 36.0 g/dLGuernsey Memorial HospitalV (RBC) [Entitic vol]99.2 fL80.0 - 100.0 fLCuniversity hospitals geneva medical center ClinicMonocytes (Bld) [#/Vol]0.41 10*3/uLNINFPomerene Hospital Monocytes/100 WBC (Bld)9.2 %[facility] HospitalNeutrophils (Bld) [#/Vol]3.34 10*3/uLPomerene HospitalNeutrophils/100 WBC (Bld)75.1 %[facility] HospitalNucleated RBC (Bld) [#/Vol]NINFClevelCleveland Clinic Children's Hospital for RehabilitationNucleated RBC/100 WBC (Bld) [Ratio]0.0 % /100 WBCPomerene HospitalPlatelet mean volume (Bld) [Entitic vol]9.2 fL9.0 - 12.7 fLCuniversity hospitals geneva medical center ClinicPlatelets (Bld) [#/Vol]174 10*3/uLWaverly ClinicRBC (Bld) [#/Vol]3.70 10*6/uLLow4.20 - 6.00 m/[facility] HospitalWBC (Bld) [#/Vol]4.45 10*3/[facility] HospitalThis is an appended report. These results have been appended to a previously verified report.[facility] HospitalCT Chest W contrast Javier 25-71-6100KJTOCQSNYX: 1. 7 mm part solid right middle [...] any questions regarding this interpretation, please call [phone]. If you are unable to reach us at the number above, please feel free to contact [facility] at [phone].DIVISION OF RADIOLOGY* * *Final Report* * * DATE OF EXAM: Dec 15 2022 8:49AM [facility] 0539 - CT CHEST W [...] images through the upper abdomen are stable. [employer] (topogram) images: No additional findings. DIVISION OF RADIOLOGYProvider, [facility] [place] - 12/15/2022 * * *Final Report* * * DATE OF EXAM: Dec 15 2022 8:49AM [facility] 0539 - CT CHEST W [...] images through the upper abdomen are stable. [employer] (topogram) images: No additional findings. IMPRESSION IMPRESSION: [...] any questions regarding this interpretation, please call [phone]. If you are unable to reach us at the number above, please feel free to contact [facility] eRadiology at [phone]. [facility] HospitalCT Neck W contrast Javier 55-53-2549ASYKBYELGD: Post-treatment changes without discrete residual/recurrent neoplasm or [...] any questions regarding this interpretation, please call [phone]. If you are unable to reach us at the number above, please feel free to contact [facility] eRadiology at [phone].DIVISION OF RADIOLOGY* * *Final Report* * * DATE OF EXAM: Dec 15 2022 8:49AM [facility] 0013 - CT NECK SOFT [...] was performed concurrently and is dictated separately. [employer] (topogram) images: No additional findings. DIVISION OF RADIOLOGYProvider, [facility] [place] - 12/15/2022 * * *Final Report* * * DATE OF EXAM: Dec 15 2022 8:49AM [facility] 0013 - CT NECK SOFT [...] was performed concurrently and is dictated separately. [employer] (topogram) images: No additional findings. IMPRESSION IMPRESSION: [...] any questions regarding this interpretation, please call [phone]. If you are unable to reach us at the number above, please feel free to contact [facility] eRadiology at [phone]. [facility]omerene HospitalCT Neck W contrast IVOrdered By: [facility] Provider on 12-15-2022 [facility] HospitalComprehensive metabolic 2000 panelOrdered By: Les Luke on 45-89-8594Mzxmxse [Mass/Vol]5.0 g/dLHigh3.9 - 4.9 g/dLWaverly ClinicALP [Catalytic activity/Vol]72 U/L38 - 113 U/LCleveland ClinicALT [Catalytic activity/Vol]16 U/L10 - 54 U/LCleveland ClinicAnion gap [Moles/Vol]12 mmol/L9 - 18 mmol/LCleveland ClinicAST [Catalytic activity/Vol]30 U/L14 - 40 U/LCleveland ClinicBilirubin [Mass/Vol]0.9 mg/dL0.2 - 1.3 mg/dLWaverly ClinicCalcium [Mass/Vol]10.5 mg/dLHigh8.5 - 10.2 mg/dLWaverly ClinicChloride [Moles/Vol]97 mmol/L97 - 105 mmol/LCleveland ClinicCO2 [Moles/Vol]28 mmol/L22 - 30 mmol/L [facility] HospitalCreatinine [Mass/Vol]0.73 mg/dL0.73 - 1.22 mg/dLPomerene Hospital GFR/1.73 sq M.predicted among non-blacks MDRD (S/P/Bld) [Vol rate/Area]100 mL/min/{1.73_m2}- PINFCMercy Health Tiffin HospitalComment on above:Estimated Glomerular Filtration Rate (eGFR) is calculated using the 2020 CKD-EPI creatinine equation. This equation utilizes serum creatinine, sex, and age as parameters. The creatinine assay has traceable calibration to isotope dilution-mass spectrometry. Refer to KDIGO guidelines for clinical interpretation. In patients with unstable renal function, e.g. those with acute kidney injury, the eGFRmay not accurately reflect actual GFR.Glucose [Mass/Vol]106 mg/pLJlnt61 - 99 mg/dL [facility] HospitalComment on above:The [place] Diabetes Association (ADA) provides guidance for cutoff values for fasting glucose andrandom glucose. The ADA defines fasting as no caloric intake for at least 8 hours. Fasting plasma gl ucose results between 100 to 125 mg/dL indicate [...] Standards of Medical Care in Diabetes 2016, [place] Diabetes Association. Diabetes Care. 2016.39(Suppl 1). Interpretation and review of laboratory resultsAbnormalCleveland ClinicPotassium [Moles/Vol]4.7 mmol/L3.7 - 5.1 mmol/LCleveland ClinicProtein [Mass/Vol]7.8 g/dL 6.3 - 8.0 g/dLWaverly ClinicSodium [Moles/Vol]137 mmol/L136 - 144 mmol/L [facility] HospitalUrea nitrogen [Mass/Vol]11 mg/dL9 - 24 mg/dLLakehealth Tripoint Medical CenterNo Panel Informationon 24-56-0223Ysugpsaul Study observation (narrative)[facility] HospitalAmbulatory Visit Summaryon 58-31-9733Ecxcesftuy Visit Summary CARSON MORSE :1955 Visit Date:04/06/2022 Ambulatory Visit Instructions Your Diagnosis BPH without urinary obstruction Nocturia Tests Performed Urnls Dip Stick Auto w/o Microscopy POC 92347 Your Care Team Attending Physician - Herve Flores MD, Sushil Degroot Primary Care Physician - Elba De La [...] What to do next Scheduled Follow-Up Appointments Tuesday. 2022 8:00 AM EDT With: Herve Flores MD, Sushil Degroot [facility]Patient Educationon 79-63-6832Mrjqrhj EducationUrology Hematuria, Adult Hematuria is blood in the urine. Blood may be visible in the urine, or it may be identified with a test. This condition can be caused by infections of the bladder, urethra, kidney, or prostate. Otherpossible causes include: ? Kidney stones. ? Cancer [...] blood in your urine, even if it ispainless or the blood stops without treatment. Blood in the urine, when it happens and then stops and then happens again, can be a symptom of a very serious condition, including cancer. There is no pain in the initial stages of many urinary cancers. Follow these instructions at home: Medicines ? Take zavg-qvy-giosnvy and prescription medicines only as told by [...] the blood stops without treatment. ? Take upco-faf-imsqfad and prescription medicines only as told by your health care provider. ? Drink enough fluid to keep your urine clear or pale yellow. This information is not intended to replace advice given to you by your health care provider. Make sure you discuss any questions you have with your health care provider. Document Released: 10/24/2006 Document Revised: 03/19/2020 Document Reviewed: 11/26/2017 [employer] Patient Education ? 2019 [employer].[facility] Office/Clinic Noteon 77-56-1738Nzxvhhb Office/Clinic NoteChief Complaint 7 month with PSA This patient is a 66-year-old male with a history of gross painless hematuria. This has resolved. At present he states he is voiding without any difficulty. He still has occasionally discolored urinebut he believes is related to the medication he is taking. Urinalysis was evaluated today. HPI Staff Carson is here today for a 7 month follow up with PSA. Previous PSA done on 02/26/21 was 2.07. Pt states he got his PSA drawn at Dr. Baez I looked in clinsync and it shows T4 and testosterone. Previous [...] denies hematuria, denies discharge, denies urinary frequency, deniesurinary hesitancy, denies nocturia, denies incontinence, denies genital [...] (N40.0: Benign prostatic hyperplasia without lower urinary tractsymptoms) Pt. is not on any BPH medications at this time and is doing well overall with his urination withoutbothersome symptoms. We will continue to follow. Patient did not have repeat psa level, most current PSA done 02/26/21 is 2.07 Will follow up in 1 year with psa. Ordered: PSA Total Urnls Dip Stick Auto w/o Microscopy POC 11120 2. Nocturia (R35.1: Nocturia) ongoing 2x a night Follow-up With When Contact Information Herve Flores MD, Sushil Degroot, URO In 1 year 04/06/2023 EDT [facility] [address], [place] [address]- Additional Instructions: w/psa Patient Education Hematuria, Adult [...] No qualifying data Procedure (more content not included)...[facility] HospitalComment on above:Result Comment: Electronically Signed By: Herve Flores MD, Sushil Degroot\.br\Date and Time Signed: 04/06/2212:01 EDT\.br\Electronically Co-Signed By: Mariam Mchugh MA\.br\Date and Time Co-Signed: 04/06/22 11:59 EDTCT Chest W contrast Javier 58-82-3565FXPXMKHEME: 1. New subtle subcentimeter groundglass opacities in [...] any questions regarding this interpretation, please call [phone]. If you are unable to reach us at the number above, please feel free to contact [facility] at [phone].DIVISION OF RADIOLOGY* * *Final Report* * * DATE OF EXAM: Dec 16 2021 8:45AM [facility] 0539 - CT CHEST W [...] the right middle lobe (3:126) most likely infectious/inflammatory in etiology. The central airways are patent. [...] of an adrenal mass in the visualized bdcez-ai-tnsl. Fat-containing epigastric anterior abdominal hernia.. [employer] (topogram) images: No additional findings. DIVISION OF RADIOLOGYProvider, [facility] [place] - 12/16/2021 * * *Final Report* * * DATE OF EXAM: Dec 16 2021 8:45AM [facility] 0539 - CT CHEST W [...] the right middle lobe (3:126) most likely infectious/inflammatory in etiology. The central airways are patent. [...] of an adrenal mass in the visualized pyttm-lz-zlqk. Fat-containing epigastric anterior abdominal hernia.. [employer] (topogram) images: No additional findings. IMPRESSION IMPRESSION: [...] any questions regarding this interpretation, please call [phone]. If you are unable to reach us at the number above, please feel free to contact [facility] eRadiology at [phone]. [facility] Neck W contrast Javier 11-13-1264BBKCBGZVDN: 1. Stable anterior neck treatment changes. 2. [...] any questions regarding this interpretation, please call [phone]. If you are unable to reach us at the number above, please feel free to contact [facility] eRadiology at [phone].DIVISION OF RADIOLOGY* * *Final Report* * * DATE OF EXAM: Dec 16 2021 8:33AM [facility] 0013 - CT NECK SOFT [...] enhancement or pathological neck lymphadenopathy. DIVISION OF RADIOLOGYProvider, [facility] [place] - 12/16/2021 * * *Final Report* * * DATE OF EXAM: Dec 16 2021 8:33AM [facility] 0013 - CT NECK SOFT [...] any questions regarding this interpretation, please call [phone]. If you are unable to reach us at the number above, please feel free to contact [facility] at [phone]. [facility] HospitalNo Panel Informationon 25-21-7725Sgpqgjuan ClinicRadiology Study observation (narrative)[facility] Vital Signs Date TimeVital SignValuePerforming FbfobfuolLjziavug41-87-7328 11:16-0400Body mrxmok090.1 cmAbram Fiore MD Work Phone: [facility]-SullivanLgnmryhjof42-00-1864 11:16-0400Body mass index (BMI) [Ratio]23.8 kg/u0ZdeldnAbram Fiore MD Work Phone: [facility]-SullivanSmwfckjqgt60-20-0938 11:16-0400Body yqwrki28.86 kgAbram Fiore MD Work Phone: [facility]-SullivanKpqxpbbhuz30-65-1480 11:18-0400Diastolic blood xqkjaspj32 mm[Hg]Wyatt Garza MD Work Phone: [facility] HospitalComment on above:cyqiyjr27-62-7122 11:18-0400Systolic blood bhctcusv137 mm[Hg]Wyatt Garza MD Work Phone: [facility] HospitalComment on above:-61-3787 11:15-0400Body zfowuq925.1 cmVfarshad Garza MD Work Phone: [facility]03-17-2025 11:15-0400Body mass index (BMI) [Ratio]25.5 kg/x7FowvcWyatt Garza MD Work Phone: [facility]03-17-2025 11:15-0400Body temperature 97.59 [degF]Wyatt Garza MD Work Phone: [facility]03-17-2025 11:15-0400Body suwjaz37.5 kgWyatt Garza MD Work Phone: [facility]03-17-2025 11:15-0400Heart rate77 /min Wyatt Garza MD Work Phone: [facility]03-17-2025 11:15-0400Respiratory rate 16 /minWyatt Garza MD Work Phone: [facility]03-17-2025 11:15-5761GpB9% (BldA) [Mass fraction]97 %Wyatt Garza MD Work Phone: [facility]09-16-2024 08:53-0400Body .1 cmAbram Fiore MD Work Phone: [place] [address]Pcnajumsjd33-24-1566 08:53-0400Body mass index (BMI) [Ratio]23.8 kg/m4IkojxhAbram Fiore MD Work Phone: [place] [address]Ahazohoete05-61-0480 08:53-0400Body .86 kgAbram Fiore MD Work Phone: [place] [address]Voxuonxthb68-16-6492 08:53-0400Diastolic blood mm[Hg]Abram Fiore MD Work Phone: [place] [address]Gwqfmsagrk42-50-4038 08:53-0400Systolic blood pomkexlv568 mm[Hg]Abram Fiore MD Work Phone: [place] [address]Knnhaqrvhw58-11-9657 11:41-0400Body cxhuum399.1 cmVfarshad Garza MD Work Phone: [facility]08-23-2024 11:41-0400Body temperature 97.7 [degF]Wyatt Garza MD Work Phone: [facility]08-23-2024 11:41-0400Diastolic blood mm[Hg]Wyatt Garza MD Work Phone: [facility]08-23-2024 11:41-0400Heart rate60 /min Wyatt Garza MD Work Phone: [facility]08-23-2024 11:41-0400Respiratory rate 16 /minWyatt Garza MD Work Phone: [facility]08-23-2024 11:41-0112UnM5% (BldA) [Mass fraction]98 %Wyatt Garza MD Work Phone: [facility]08-23-2024 11:41-0400Systolic blood pxgxcene212 mm[Hg]Wyatt Garza MD Work Phone: [facility]05-24-2024 14:27-0400Body ercobg050.1 cmVfarshad Garza MD Work Phone: [facility]05-24-2024 14:27-0400Body mass index (BMI) [Ratio]23.5 kg/r4JwwdyWyatt Garza MD Work Phone: [facility]05-24-2024 14:27-0400Body temperature 97.2 [degF]Wyatt Garza MD Work Phone: [facility]05-24-2024 14:27-0400Body uatziz71.05 kgWyatt Garza MD Work Phone: [facility]05-24-2024 14:27-0400Diastolic blood wcfegalm66 mm[Hg]Wyatt Garza MD Work Phone: [facility]05-24-2024 14:27-0400Heart rate82 /min Wyatt Garza MD Work Phone: [facility]05-24-2024 14:27-0400Respiratory rate 16 /minWyatt Garza MD Work Phone: [facility]05-24-2024 14:27-1283WhC7% (BldA) [Mass fraction]98 %Wyatt Garza MD Work Phone: [facility]05-24-2024 14:27-0400Systolic blood epfevnjv114 mm[Hg]Wyatt Garza MD Work Phone: [facility]02-12-2024 10:07-0500Body stcett446.1 Jaime Garza MD Work Phone: [facility]02-12-2024 10:07-0500Body temperature 97.59 [degF]Wyatt Garza MD Work Phone: [facility]02-12-2024 10:07-0500Body bjnhiw40.6 kgWyatt Garza MD Work Phone: [facility]02-12-2024 10:07-0500Diastolic blood mm[Hg]Wyatt Garza MD Work Phone: [facility]02-12-2024 10:07-0500Heart rate71 /min Wyatt Garza MD Work Phone: [facility]02-12-2024 10:07-0500Respiratory rate 16 /minWyatt Garza MD Work Phone: [facility]02-12-2024 10:07-4215FrQ8% (BldA) [Mass fraction]98 %Wyatt Garza MD Work Phone: [facility]02-12-2024 10:07-0500Systolic blood xxguikhw978 mm[Hg]Waytt Garza MD Work Phone: [facility]02-09-2023 10:48-0500Body tzqvei718.1 Jaime Garza MD Work Phone: [facility]02-09-2023 10:48-0500Body temperature 97.59 [degF]Wyatt Garza MD Work Phone: [facility]02-09-2023 10:48-0500Body dmkuqo99.58 kgWyatt Garza MD Work Phone: [facility]02-09-2023 10:48-0500Diastolic blood iivdyjba930 mm[Hg]Wyatt Garza MD Work Phone: [facility]02-09-2023 10:48-0500Heart rate94 /min Wyatt Garza MD Work Phone: [facility]02-09-2023 10:48-0500Respiratory rate 16 /minWyatt Garza MD Work Phone: [facility]02-09-2023 10:48-5110DhR9% (BldA) [Mass fraction]95 %Wyatt Garza MD Work Phone: [facility]02-09-2023 10:48-0500Systolic blood mm[Hg]Wyatt Garza MD Work Phone: [facility]08-11-2022 10:45-0400Body temperature 98.1 [degF]KAVIN Atkins MD Work Phone: [facility]08-11-2022 10:45-0400Body flbhon19.22 kgKAVIN Atkins MD Work Phone: [facility]08-11-2022 10:45-0400Diastolic blood hfrppuwh86 mm[Hg]KAVIN Atkins MD Work Phone: [facility]08-11-2022 10:45-0400Heart rate89 /min KAVIN Atkins MD Work Phone: [facility]08-11-2022 10:45-0400Respiratory rate 18 /Julio CesarKAVIN Atkins MD Work Phone: [facility]08-11-2022 10:45-1843NxV6% (BldA) [Mass fraction]100 %KAVIN Atkins MD Work Phone: [facility]08-11-2022 10:45-0400Systolic blood qwppuknm780 mm[Hg]KAVIN Atkins MD Work Phone: [facility]05-31-2022 11:34-0400Blood Pressure LocationSushil Edgar Jr. [facility] 05-31-2022 11:34-0400Diastolic blood bymlixnj73 mm[Hg] Sushil Edgar Jr. [facility] 05-31-2022 11:34-0400Heart rate72 /Kurt Edgar Jr. [facility] 05-31-2022 11:34-0400Respiratory rate16 /Kurt Edgar Jr. [facility] 05-31-2022 11:34-0400Systolic blood qtujbksu914 mm[Hg] Sushil Edgar Jr. [facility] Encounters Encounter DateEncounter TypeCare ProviderFacilityStart: 08-28-2025 End: 13-90-9804Tarwuw Néstor Fiore MD Work Phone: NOEZ Jayce OtolaryngologyStart: 08-28-2025 End: 54-65-8571Atigmm Néstor Fiore MD Work Phone: NOOP Jayce OtolaryngologyStart: 08-28-2025 End: 05-87-3887Mjttiu outpatient visit 25 minutesAbram Fiore MD Work Phone: noms Jayce OtolaryngologyComment on above:Non-seasonal allergic rhinitis due to other allergic trigger (Primary Dx); Chronic sinusitis, unspecified location; Tongue cancer (HCC); Bilateral impacted cerumenStart: 08-28-2025 End: 57-87-5027axrlgenvbgAACXDM H TIMMISNot AvailableStart: 01-21-2025 End: 09-72-8359hifjwmoyrqQFRHNGM M HOYFacility:[facility] Centertart: 01-21-2025 End: 68-75-1191Mrvnxd outpatient visit 25 minutesWyatt Garza MD Work Phone: Hematology/OncologyComment on above:History of head and neck cancer (Primary Dx); Lung nodulesStart: 01-18-2025 End: 31-41-8569Nalsanuxm encounterHalima Nixon MD Work Phone: GastroenterologyComment on above:Follow Up Tests Results (Labs---->needs US, Fibroscan and OV)Start: 01-16-2025 End: 59-98-4268Omuoya-up encounterHalima Nixon MD Work Phone: GastroenterologyStart: 01-10-2025 End: 26-69-8859eyvhzfnwodTZTTUHQ M HOYFacility:[facility] Centertart: 01-10-2025 End: 75-93-2350Npvpxkddmu hospital visit by physicianArrival Time Radiology Work Phone: Radiology Pet CTComment on above:History of head and neck cancer [Z85.89]Start: 08-23-2024 End: 23-98-3784Cmyaju flowsDaniel Welch [facility] Work Phone: noms AUDStart: 08-23-2024 End: 61-07-0409Phcsui Radhika Welch [facility] Work Phone: noms AUDStart: 08-23-2024 End: 78-84-1090Qwxxojnb SupportDemartínez Soto Rebekah CCC-A Work Phone: noms AUDComment on above:Sensorineural hearing loss (SNHL) of both ears (Primary Dx)Start: 07-23-2024 End: 94-41-8916Xaumhg Néstor Fiore MD Work Phone: noms ENT NORWALKStart: 07-23-2024 End: 25-27-1081Banskw Néstor Fiore MD Work Phone: noms ENT NORWALKStart: 07-23-2024 End: 99-77-7710Qosyby outpatient visit 15 minutesAbram Fiore MD Work Phone: noms [facility] HOSPITALKComment on above:Tongue cancer (CMS/HCC) (Primary Dx)Start: 07-10-2024 End: 60-84-4552Bcvwca flowsheetMirojelio [address] FACC Fund I CCC-A Work Phone: noMS AUDStart: 07-10-2024 End: 82-45-1973Vewuzn DealBirdheetOverlook Medical Centerill [facility] Work Phone: noms AUDStart: 07-10-2024 End: 91-78-5141Vkhyjnwu SupportDevirginia mason [facility] Charles Rebekah [facility] Work Phone: noms AUDComment on above:Sensorineural hearing loss (SNHL) of both ears (Primary Dx)Start: 06-29-2024 End: 39-45-9266ojmvqtutgsSTRQMTM M HOYFacility:[facility]art: 06-29-2024 End: 05-28-1835Sihkaq outpatient visit 15 minutesWyatt Garza MD Work Phone: Hematology/OncologyComment on above:History of head and neck cancer (Primary Dx); Lung nodulesStart: 06-22-2024 End: 39-48-0646zbfravepafKNFZQEN M HOYFacility:[facility]ertart: 06-22-2024 End: 16-73-9763Wxmglpcsaw hospital visit by physicianArrival Time Radiology Work Phone: Radiology Pet CTComment on above:History of head and neck cancer [Z85.89]Start: 48-60-1631Lriafkmax Javon Nixon MD Work Phone: GastroenterologyStart: 05-28-2024 End: 32-68-4705tccvrfxjxvRSDJZYE M HOYFacility:[facility]ertart: 05-28-2024 End: 58-21-8417Viqxsmgqtf hospital visit by physicianUs [facility] LoraRadiologyComment on above:Abnormal LFTs [R79.89]Start: 82-52-5816Crmmlfuvq Javon Nixon MD Work Phone: GastroenterologyStart: 05-22-2024 End: 36-36-2766anlvvmlorbTWVAUYS M HOYFacility:[facility]ertart: 09-54-5106Tmvutymhf Javon Nixon MD Work Phone: GastroenterologyStart: 03-30-2024 End: 92-80-7735cugvmcchwuVJIXSGM M HOYFacility:[facility]ertart: 03-30-2024 End: 70-29-4521Nesoxy outpatient visit 25 minutesWyatt Garza MD Work Phone: Hematology/OncologyComment on above:History of head and neck cancer (Primary Dx); Lung nodulesStart: 03-23-2024 End: 77-62-3961omboopddafGKTXWAP M HOYFacility:[facility]ertart: 03-23-2024 End: 40-46-1007Klznmyozql hospital visit by physicianArrival Time Radiology Work Phone: Radiology Pet CTComment on above:Localized enlarged lymph nodes [R59.0]Start: 04-40-1650Fdqpsdued encounterZeny Tom RN Hematology/OncologyComment on above:ResultsStart: 12-19-2023 End: 01-39-0613Jcxurf outpatient visit 25 minutesWyatt Garza MD Work Phone: Hematology/OncologyComment on above:Localized enlarged lymph nodes (Primary Dx); Severe protein-calorie malnutrition (HCC); Malignant neoplasm of head, face and neck (HCC); History of head and neck cancerStart: 12-16-2023 End: 25-27-3933Dopsamfvii hospital visit by physicianArrival Time Radiology Work Phone: Radiology Pet CTComment on above:Lung nodules [R91.8] Start: 02-34-7435heqslthanzYimgzb L SmithFacility:EU BellevueStart: 03-10-2023 ambulatoryKIMBERLEON RENDONFacility:J9Aokrk: 01-27-2023 End: 93-10-1383fityatcpukPU ELBA HOY .Facility:A1Zivhp: 12-28-2022 End: 28-96-8393urafoznxmwPZ ELBA HOY .Facility:R6Cgzwv: 12-28-2022 End: 85-59-7885svbiytyxtyGE ELBA HOY .Facility:O8Yfisl: 12-16-2022 End: 66-24-3795Tactbu outpatient visit 25 minutesWyatt Garza MD Work Phone: Hematology/OncologyComment on above:Malignant neoplasm of head, face and neck (HCC) (Primary Dx); Lung nodules; Disorder of thyroidStart: 12-15-2022 End: 90-09-6811Utasvjvadm hospital visit by physicianArrival Time Radiology Work Phone: Radiology Pet CTComment on above:Malignant neoplasm of head, face and neck (HCC) [C76.0]Start: 58-20-4801witblpvtyuVM ELBA HOY . Facility:M2Pdswv: 90-14-0566Stwtkdreji BillyUniversity of [facility] Comment on above:Chronic hepatitis C with hepatic coma (HCC) (Primary Dx)Start: 34-20-1338fyyytfyfggRwxha [facility] MAINStart: 81-15-1312Lgirvo-up encounterEritessie [facility] Specialty PharmacyComment on above:SPP Hepatology - Follow-up (Epclusa treatment complete)Start: 06-17-2022 End: 66-97-3624Yntsgwe encounter Julio César Atkins MD Work Phone: Radiation OncologyComment on above:Effects of radiation, sequela (Primary Dx); Head and neck cancer (HCC)Start: 48-41-7089Ydtrhnsul encounterMarleni Atkins MD Work Phone: Radiation OncologyComment on above:Lab OrdersStart: 84-89-4564zoxdceabesTkfaw [facility] MAINStart: 27-79-6184Ahwhmf-up encounterBhavya [facility] Specialty PharmacyComment on above:SPP Hepatology - Follow-up (Epclusa - End of Treatment)Start: 04-06-2022 End: 56-16-0558kdzrgoqgbbRlrmhf L SmithFacility:EU BellevueStart: 04-06-2022 End: 01-06-3178Msqrwvz encounter Chantell Edgar Jr. executive [facility] Jose start: 41-77-4734Zhreqjyof Javon Nixon MD Work Phone: GastroenterologyComment on above:ResultsStart: 33-10-9540Hljtkvfzo PharmacyCleveland Clinic [facility] Specialty PharmacyComment on above:SPP Hepatology - Medication Refill (Epclusa)Start: 23-48-6766Ghquzdvyu PharmacyEriMercy Health Specialty PharmacyComment on above:SPP Hepatology - Medication Refill (Epclusa)Start: 73-07-1513Aibwypwpo Javon Nixon MD Work Phone: GastroenterologyComment on above:Follow UpStart: 12-16-2021 End: 79-02-7299Imcsribwyi hospital visit by physicianArrival Time Radiology Work Phone: Radiology Pet CTComment on above:Malignant neoplasm of head, face and neck (HCC) [C76.0]Start: 03-14-2018 End: 09-40-5662Cbnvacf encounter procedureDogildardoaliyah Spence Astonity:[facility] Procedures DateProcedureProcedure DetailPerforming ClinicianStart: 34-29-5047Ws soft tissue neck w/contrast Lindsey Garza MD Work Phone: Start: 85-81-9764Hmkhi count complete auto&auto difrntl Marva Garza MD Work Phone: Start: 87-87-6350DMYZEYVE FUNCTION TESTSDeCuba Memorial Hospital-A Work Phone: start: 59-19-5266Ux thorax w/contrast Lindsey Garza MD Work Phone: Start: 95-87-6144Hgfuo count complete auto&auto difrntl Marva Garza MD Work Phone: Start: 35-49-0308Nk abdominal real time w/image limitedHalima Nixon MD Work Phone: start: 07-94-6797Yv thorax w/contrast Lindsey Garza MD Work Phone: Start: 95-49-5819OFYXDXQKZW Milton Garza MD Work Phone: Start: 79-32-8545Wn soft tissue neck w/contrast Lindsey Garza MD Work Phone: Start: 58-07-5005Gk thorax w/contrast Lindsey Garza MD Work Phone: Start: 69-64-6673Jywdc count complete auto&auto difrntl Marva Garza MD Work Phone: Start: 01-90-1603Vt soft tissue neck w/contrast Lindsey Garza MD Work Phone: Start: 25-61-3399Kh thorax w/contrast materialWyatt Garza MD Work Phone: Start: 12-08-0429Yqxnm count complete auto&auto difrntl wbcWyatt Garza MD Work Phone: Start: 91-14-4853Kjsam depression screening assessment Halima Nixon MD Work Phone: start: 18-35-3947XubsmojtsiPyqalc Smith start: 15-85-8292ZpmrzjdsjvNqltdd Herve Flores biopsy of tongueRaysonu Edgar Jr. chemotherapyRaysonu Herve Flores Plan of Treatment DateCare ActivityDetailAuthorStart: 59-63-0833TRF Vaccine (1 - 1-dose 75+ series)RSV Vaccine (1 - 1-dose 75+ series)[facility]2028 Diabetes ScreeningDiabetes ScreeningMercy Hospitaltart: 14-12-6413Sdiemvrp ScreeningDiabetes ScreeningMercy Hospitaltart: 98-77-1770Wufylemd Screening Diabetes ScreeningMercy Hospitaltart: 08-27-2026 End: 72-94-2015Ixpbesr encounter vimvjagrt55/21/2026 11:20 AM EDT Office Visit SILVIA Eduardo Otolaryngology [address] [facility] [address] [place] [address] Abram Fiore MD [address] [facility] [address] [place] [address] NOMTricia Eduardo OtolaryngologyStart: 02-26-2026 PROSTATE CANCER SCREENING DISCUSSIONPROSTATE CANCER SCREENING DISCUSSION [facility]: 01-21-2026 End: 68-60-7237KYF W Auto Differential panel - BloodCOMPLETE BLOOD COUNT AND DIFFERENTIAL Lab Routine History of head and neck cancer Lung nodules Expected: 01/21/2026 (Approximate), Expires: 01/21/2026leveland ClinicComment on above: Expected: 01/21/2026 (Approximate), Expires: 01/21/2026Start: 01-21-2026 End: 29-23-2001Vodhnfjbfgvzn metabolic 2000 panel - Serum or PlasmaCOMPREHENSIVE METABOLIC PANEL Lab Routine History of head and neck cancer Lung nodules Expected: 01/21/2026 (Approximate), Expires: 01/21/2026[facility] ClinicComment on above:Expected: 01/21/2026 (Approximate), Expires: 01/21/2026Start: 01-21-2026 End: 45-61-5210GS Chest W contrast IVCT CHEST W IVCON Radiology Routine History of head and neck cancer Lung nodules Expected: 01/21/2026 (Approximate), Expires: 02/20/2026leveland ClinicComment on above:Expected: 01/21/2026 (Approximate), Expires: 02/20/2026Start: 01-21-2026 End: 50-77-5089OV Neck W contrast IVCT NECK SOFT TISSUE W IVCON Radiology Routine History of head and neck cancer Lung nodules Expected: 01/21/2026 (Approximate), Expires: 02/20/2026[facility] Work Phone: Comment on above:Expected: 01/21/2026 (Approximate), Expires: 02/20/2026Start: 01-20-2026 End: 11-12-3227Rtlykk-up goynbcgit35/16/2026 11:40 AM EDT Visit (SP) Office Hematology/Oncology [address] [facility] [place] [address] Wyatt Garza MD [address] [place] [address] 1 YEAR FOLLOW UP AFTER CT SCANHematology/OncologyComment on above:1 YEAR FOLLOW UP AFTER CT SCANStart: 01-13-2026 End: 78-07-3415Vqkqfys encounter vgioakeyv92/09/2026 7:45 AM EDT Appointment Radiology Pet CT [address] [facility] [place] [address] CT CHEST AND NECKRadiology Pet CTComment on above:CT CHEST AND NECKStart: 01-10-2026 Screening for malignant neoplasm of lungLung Cancer ScreeningPomerene Hospital Start: 24-35-7375TAVXPMUE SCREENDIABETES SCREENMercy Hospitaltart: 10-07-2025 End: 59-32-8931Allupgu encounter wnomyjjgu29/01/2025 11:20 AM EST Office Visit [facility] [place] Otolaryngology [address] [facility] [address] [place] [address] Abram Fiore MD [address] [facility] [address] [place] [address] NOMS [place] OtolaryngologyStart: 08-28-2025 End: 33-29-5893Dwqbyrt encounter xmwgudpst73/22/2025 11:20 AM EDT Office Visit NOMTricia Eduardo Otolaryngology [address] [facility] [address] [place] [address] Abram Fiore MD [address] [facility] [address] [place] [address] ArrivedNOMS [place] OtolaryngologyComment on above:ArrivedStart: 21-32-6990Dhilfngcd vaccinationInfluenza Vaccine (Season Ended)[facility]: 93-71-6970Qgossbqbc for malignant neoplasm of lung Lung Cancer ScreeningMercy Hospitaltart: 05-24-2025 End: 64-11-3966Wgpuedzqi C virus RNA [Units/volume] (viral load) in Serum or Plasma by PAULA with probe detectionHEPATITIS C RNA QUANTIFICATION BY PCR, PLASMA/SERUM Lab Routine Chronic hepatitis C without hepaticcoma (HCC) Expected: 05/24/2025 (Approximate), Expires: 08/23/2025[facility] Work Phone: comment on above:Expected: 05/24/2025 (Approximate), Expires: 08/23/2025Start: 99-16-8768Yhaxkdqxv for malignant neoplasm of lungLung Cancer ScreeningMercy Hospitaltart: 01-21-2025 End: 66-64-1440Czlglc-up encounterHematology/OncologyComment on above:6 month follow up after CT scan6 month follow up after CT scan w/labsStart: 01-07-2025 End: 93-28-7884Szlxxx-up tmmejkgle16/03/2025 8:30 AM EST Visit (SP) Office Hematology/Oncology [address] [place] [address] [place], [place] [phone] Wyatt Garza MD [address] [facility] [place] [address] 6 month follow up after CT scanHematology/OncologyComment on above:6 month follow up after CT scanStart: 12-31-2024 End: 25-35-1270Cnbwbly encounter bwydnuszb33/24/2025 8:45 AM EST Appointment Radiology Pet CT [address] [place] [address] [place] [address] CT CHEST AND NECKRadiology Pet CTComment on above:CT CHEST AND NECKStart: 12-30-2024 End: 19-19-1215OMN W Auto Differential panel - BloodCOMPLETE BLOOD COUNT AND DIFFERENTIAL Lab Routine History of head and neck cancer Lung nodules Expected: 12/30/2024 (Approximate), Expires: 06/29/2025[facility] ClinicComment on above: Expected: 12/30/2024 (Approximate), Expires: 06/29/2025Start: 12-30-2024 End: 17-72-4287Wcvaivluedege metabolic 2000 panel - Serum or PlasmaCOMPREHENSIVE METABOLIC PANEL Lab Routine History of head and neck cancer Lung nodules Expected: 12/30/2024 (Approximate), Expires: 06/29/2025[facility] ClinicComment on above:Expected: 12/30/2024 (Approximate), Expires: 06/29/2025Start: 12-30-2024 End: 16-30-7637OW Chest W contrast IVCT CHEST W IVCON Radiology Routine History of head and neck cancer Lung nodules Expected: 12/30/2024 (Approximate), Expires: 07/29/2025[facility] ClinicComment on above:Expected: 12/30/2024 (Approximate), Expires: 07/29/2025Start: 12-30-2024 End: 72-61-1083ND Neck W contrast IVCT NECK SOFT TISSUE W IVCON Radiology Routine History of head and neck cancer Lung nodules Expected: 12/30/2024 (Approximate), Expires: 07/29/2025[facility] Work Phone: Comment on above:Expected: 12/30/2024 (Approximate), Expires: 07/29/2025Start: 45-31-0990KOTYPWMR SCREENDIABETES SCREENMercy Hospitaltart: 84-00-5262Rqkffpwip for malignant neoplasm of lungLung Cancer ScreeningMercy Hospitaltart: 12-13-2024 End: 12-81-9290Rqujo-1-Fetoprotein [Mass/volume] in Serum or PlasmaALPHA FETOPROTEIN Lab Routine Fatty liver Expected: 12/13/2024 (Approximate), Expires: 03/14/2025[facility] Work Phone: comment on above:Expected: 12/13/2024 (Approximate), Expires: 03/14/2025Start: 12-13-2024 End: 21-60-9155UB Abdomen RUQUS ABD RIGHT UPPER QUADRANT Radiology Routine Fatty liver Expected: 12/13/2024 (Approximate), Expires: 07/12/2025[facility] Comment on above:Expected: 12/13/2024 (Approximate), Expires: 07/12/2025Start: 30-15-6170Kbezeaq Directive DiscussionAdvance Directive DiscussionMercy Hospitaltart: 09-13-2024 End: 56-68-7734Ieralqt encounter ycvjctqlu95/07/2024 2:00 PM EST Office Visit NOMS [address]UD [address] [place] [address] NOMS AUDStart: 08-23-2024 End: 57-73-5758Rpihibea SupportNOCAMERON REGIONAL MEDICAL CENTER AUDComment on above:ArrivedStart: 07-23-2024 End: 95-73-3261Tpwwjvt encounter procedureNOMS NICO JONESKComment on above: ArrivedStart: 07-10-2024 End: 29-52-8413Ysnryznl Cofgurd6807/10/2024 1:30 PM EDT Clinical Support [facility] [address] [facility] [place] [phone] Andreina Welch, [facility] [address] [facility] [place] [address] ArrivedNOCAMERON REGIONAL MEDICAL [facility] AUDComment on above:ArrivedStart: 07-08-2024 Covid-19 Vaccine ()Covid-19 Vaccine () [facility]: 55-33-4044Tanfp-19 Vaccine ()Covid-19 Vaccine ()[facility]: 64-41-3686Drhmcdzwy vaccinationMercy Hospitaltart: 06-30-2024 End: 21-67-1094DAG W Auto Differential panel - BloodCOMPLETE BLOOD COUNT AND DIFFERENTIAL Lab Routine History of head and neck cancer Lung nodules Expected: 06/30/2024 (Approximate), Expires: 03/30/2025[facility] ClinicComment on above: Expected: 06/30/2024 (Approximate), Expires: 03/30/2025Start: 06-30-2024 End: 73-16-4611Gszbcvggcorce metabolic 2000 panel - Serum or PlasmaCOMPREHENSIVE METABOLIC PANEL Lab Routine History of head and neck cancer Lung nodules Expected: 06/30/2024 (Approximate), Expires: 03/30/2025levelC[facility] Clinic Children's Hospital for RehabilitationComment on above:Expected: 06/30/2024 (Approximate), Expires: 03/30/2025Start: 06-30-2024 End: 04-50-1356LN Chest W contrast IVCT CHEST W IVCON Radiology Routine History of head and neck cancer Lung nodules Expected: 06/30/2024 (Approximate), Expires: 04/29/2025[facility] Work Phone: Comment on above:Expected: 06/30/2024 (Approximate), Expires: 04/29/2025Start: 06-29-2024 End: 30-67-2373Oegmoa-up wpjpuqhbw02/23/2024 11:15 AM EDT Visit (SP) Office Hematology/Oncology [address] [facility] [place] [address] Wyatt Garza MD [address] [facility] [place] [address] 3 MONTH FOLLOW UP AFTER CTHematology/OncologyComment on above:3 MONTH FOLLOW UP AFTER CTStart: 06-22-2024 End: 04-32-4489Qdatrju encounter yrdyggobz00/16/2024 7:45 AM EDT Appointment Radiology Pet CT [address] [place] [address] CT CHEST W IVRadiology Pet CTComment on above:CT CHEST W IVStart: 05-28-2024 End: 64-50-7343Odicflz encounter nbwcizjpu59/22/2024 2:30 PM EDT Appointment Radiology [address] [place], [place] [id number] no spl chkf [facility] 05/21 Abnormal LFTs [R79.89]RadiologyComment on above:no spl chkf g 05/21 Abnormal LFTs [R79.89]Start: 05-21-2024 End: 37-67-6780Kaokmmoxp C virus RNA [Units/volume] (viral load) in Serum or Plasma by PAULA with probe detectionHEPATITIS C RNA QUANTIFICATION BY PCR, PLASMA/SERUM Lab Routine Abnormal LFTs Chronic hepatitis C without hepatic coma (HCC) Expected: 05/21/2024 (Approximate), Expires: 08/20/2024[facility] Comment on above:Expected: 05/21/2024 (Approximate), Expires: 08/20/2024Start: 05-21-2024 End: 81-42-5044DC Abdomen RUQUS ABD RIGHT UPPER QUADRANT Radiology Routine Abnormal LFTs Chronic hepatitis C without hepatic coma (HCC) Expected: 05/21/2024 (Approximate), Expires: 06/16/2025[facility] Work Phone: comment on above:Expected: 05/21/2024 (Approximate), Expires: 06/16/2025Start: 01-30-2024 End: 41-52-9842WUVPKHLRDQ BLDCREATININE BLD Lab Routine Localized enlarged lymph nodes History of head and neck cancer Expected:01/30/2024, Expires: 01/17/2025 [facility] Work Phone: Comment on above:Expected: 01/30/2024, Expires: 01/17/2025Start: 01-30-2024 End: 36-19-9586YA Chest W contrast IVCT CHEST W IVCON Radiology Routine Localized enlarged lymph nodes History of head and neck cancer Expected: 01/30/2024, Expires: 01/17/2025[facility] Work Phone: Comment on above:Expected: 01/30/2024, Expires: 01/17/2025Start: 12-16-2023 End: 58-66-8245BWK W Auto Differential panel - BloodCBC + DIFF Lab Routine Lung nodules Expected: 12/16/2023 (Approximate), Expires: 12/16/2023[facility] Work Phone: Comment on above:Expected: 12/16/2023 (Approximate), Expires: 12/16/2023Start: 12-16-2023 End: 66-74-4950Hyjtitqlfnqqy metabolic 2000 panel - Serum or PlasmaCOMP METABOLIC PANEL Lab Routine Lung nodules Expected: 12/16/2023 (Approximate), Expires: 12/16/2023[facility] Work Phone: Comment on above:Expected: 12/16/2023 (Approximate), Expires: 12/16/2023Start: 12-16-2023 End: 30-03-3205XK CHEST W IVCONCT CHEST W IVCON Radiology Routine Lung nodules Expected: 12/16/2023 (Approximate), Expires: 01/15/2024[facility] Work Phone: Comment on above:Expected: 12/16/2023 (Approximate), Expires: 01/15/2024Start: 12-16-2023 End: 61-33-5829Hf soft tissue neck w/contrast materialCT NECK SOFT TISSUE W IVCON Radiology Routine Lung nodules Expected: 12/16/2023 (Approximate), Expir es: 01/15/2024[facility] Work Phone: Comment on above:Expected: 12/16/2023 (Approximate), Expires: 01/15/2024Start: 25-18-0079Cqrqjxtfs vaccinationLUNG CANCER SCREENING [facility]: 51-09-5045Drgeseh Directive DiscussionAdvance Directive DiscussionMer[facility] Hospitaltart: 00-68-6977Eqqhexnncw Health ScreeningBehavioral Health ScreeningMercy Hospitaltart: 10-41-6018Amunrduigs Assessment Depression AssessmentMercy Hospitaltart: 14-20-3015Zyphg-19 Vaccine ()Covid-19 Vaccine ()[facility]: 58-99-1640Ahpqdmmmk vaccinationInfluenza Vaccine (#1)[facility]: 12-18-2022 End: 03-23-2292Qu thorax w/o contrast materialCT CHEST WO IVCON Radiology Routine Effects of radiation, sequela Head and neck cancer (HCC) Expected: 12/18/2022, Expires: 07/17/2023[facility] Work Phone: Comment on above:Expected: 12/18/2022, Expires: 07/17/2023Start: 92-74-2936Zhwvo depression screening assessmentDEPRESSION SCREENINGMercy Hospitaltart: 33-64-8294Isbalzjci vaccinationLUNG CANCER SCREENINGMercy Hospitaltart: 37-49-8227ZNMJRJT DIRECTIVE DISCUSSIONADVANCE DIRECTIVE DISCUSSIONMercy Hospitaltart: 30-30-9473IIFHJPUXIM ASSESSMENT DEPRESSION ASSESSMENTMercy Hospitaltart: 07-30-2022 End: 57-22-5304Oufmrbhsv C virus RNA [Units/volume] (viral load) in Serum or Plasma by PAULA with probe detectionHCV QUANT RNA BY PCR Lab Routine Chronic hepatitis C with hepatic coma (HCC) Expected: 07/30/2022 (Approximate), Expires: 09/29/2022[facility] Work Phone: comment on above:Expected: 07/30/2022 (Approximate), Expires: 09/29/2022tart: 63-14-9716Erxerdfsy vaccinationMercy Hospitaltart: 06-09-2022 End: 99-11-5476Vrakfmbjwun [Units/volume] in Serum or PlasmaTSH BLD Lab Routine Effects of radiation, sequela Expected: 06/09/2022, Expires: 08/09/2022[facility] Work Phone: Comment on above:Expected: 06/09/2022, Expires: 08/09/2022tart: 06-09-2022 End: 02-85-3150Rgeyhhjgo (T4) [Mass/volume] in Serum or PlasmaT4/THYROXINE BLOOD Lab Routine Effects of radiation, sequela Expected: 06/09/2022, Expires: 08/09/2022[facility] Work Phone: Comment on above:Expected: 06/09/2022, Expires: 08/09/2022tart: 61-95-5765KWGMFOU DIRECTIVE DISCUSSIONADVANCE DIRECTIVE DISCUSSIONMercy Hospitaltart: 02-36-9408TOAOBULWR AGE 65 AND OVER WITH 5YR LOOKBACK (#1)PNEUMOVAX AGE 65 AND OVER WITH 5YR LOOKBACK (#1)[facility] Start: 22-49-3502Mhwilully vaccinationINFLUENZA (#1)[facility]: 98-95-9191QFYWDBCCZ B (1 of 3 - Risk 3-dose series)HEPATITIS B (1 of 3 - Risk 3- dose series)[facility]: 87-67-3153Kdoodygyn B Vaccine (1 of 3 - Risk 3-dose series)Hepatitis B Vaccine (1 of 3 - Risk 3-dose series)[facility] Start: 93-91-7332HAO Vaccine (1 - 1-dose 60+ series)RSV Vaccine (1 - 1-dose 60+ series)[facility]: 46-67-8652EVA Vaccine (1 - Risk 60-74 years 1-dose series)RSV Vaccine (1 - Risk 60-74 years 1-dose series)[facility]: 34-82-7555ZBQVQMCU CANCER SCREENING DISCUSSIONPROSTATE CANCER SCREENING DISCUSSIONMercy Hospitaltart: 15-62-6488Bmmunhvy specific antigen measurement Prostate Cancer Screening DiscussionMercy Hospitaltart: 79-84-5833TPZSMNPA VACCINE (1 of 2)SHINGRIX VACCINE (1 of 2)[facility]: 2001 COLOGUARD (FIT-DNA)COLOGUARD (FIT-DNA)[facility]: 2001 ColonoscopyCOLONOSCOPYMer[facility] Hospitaltart: 28-22-4563IFECBUCVFV CANCER SCREENINGCOLORECTAL CANCER SCREENINGMer[facility] Hospitaltart: 81-80-3109CF COLONOGRAPHYCT COLONOGRAPHYMercy Hospitaltart: 97-32-4544FLEUJ OCCULT BLOOD FECAL OCCULT BLOODMercy Hospitaltart: 09-53-0634Psnmubgg specific antigen measurementProstate Cancer Screening DiscussionMercy Hospitaltart: 2001 Screening for malignant neoplasm of colonMercy Hospitaltart: 2001 SIGMOIDOSCOPYSIGMOIDOSCOPYMercy Hospitaltart: 27-77-0606Qyeiw panelLipid ScreeningMercy Hospitaltart: 09-08-3512UAEFM SCREENLIPID SCREENMercy Hospitaltart: 06-18-9488QIOHZWILE B (1 of 3 - Risk 3-dose series)HEPATITIS B (1 of 3 - Risk 3-dose series)[facility]: 32-47-9929Dkaykvkwhwbl Vaccine: 50+ (1 of 2 - PCV)Pneumococcal Vaccine: 50+ (1 of 2 - PCV)[facility] Start: 96-29-4760JOMZDCIL VACCINE (1 of 2)SHINGRIX VACCINE (1 of 2)[facility]: 96-08-0735Nvany microalbumin profileCleOhioHealth O'Bleness Hospitaltart: 93-10-3891Yiepkac ScreeningAnxiety ScreeningMercy Hospitaltart: 1973 Depression ScreeningDepression ScreeningMercy Hospitaltart: 05-23-6901XNF SCREENINGHIV SCREENINGMercy Hospitaltart: 43-18-4448Bobynyglpfwu Vaccine: 65+ (1 of 2 - PCV)Pneumococcal Vaccine: 65+ (1 of 2 - PCV)[facility]: 77-28-0518TGVIPBLSVYHV: 65+ (1 - PCV)PNEUMOCOCCAL: 65+ (1 - PCV)[facility] Start: 05-36-4063EOGCN-19 VACCINE (#1)COVID-19 VACCINE (#1)[facility] Start: 19-39-3989DWXDS-19 VACCINE (1)COVID-19 VACCINE (1)[facility]: [id number]-19 VACCINE (#1)COVID-19 VACCINE (#1)[facility]: 99-98-3278LHEBYKQUY AORTIC ANEURYSM SCREENINGABDOMINAL AORTIC ANEURYSM SCREENING [facility]: 00-31-1954Yntjclmkd aortic aneurysm screeningAbdominal Aortic Aneurysm ScreeningMount St. Mary HospitalAisgxmIgoej-6-Aztqfnziclh [Mass/volume] in Serum or PlasmaALPHA FETOPROTEIN Lab Routine Fatty liver 01/10/2025 2:10 PM EST [facility] Work Phone: cT Chest W contrast IVCT CHEST W IVCON Radiology Routine History of head and neck cancer Lung nodules 01/10/2025 3:05 PM EST [facility] Work Phone: End: 25-82-3422OZEAZNJ FUNCTION PNLHEPATIC FUNCTION PNL Lab Routine Hepatitis C antibody positive in blood Every 3 weeks for 2 Occurrences starting 01/26/2022 until 01/25/2023[facility] Work Phone: comcgfp on above:Every 3 weeks for 2 Occurrences starting 01/26/2022 until 01/25/2023 End: 63-96-8909Mpjlmevde C virus RNA [Units/volume] (viral load) in Serum or Plasma by PAULA with probe detectionHCV QUANT RNA BY PCR Lab Routine Hepatitis C antibody positive in blood Every 3 weeks for 2 Occurrences starting 01/26/2022 until 01/25/2023[facility] Work Phone: comvghk on above:Every 3 weeks for 2 Occurrences starting 01/26/2022 until 01/25/2023Liver ultrasound attenuation by transient elastographyDDI VIBRATION CONTROLLED TRANSIENT ELASTOGRAPHY (VCTE) Endoscopy Routine Fatty liver Ordered: 06/18/2024[facility] ClinicComment on above:Ordered: 06/18/2024Thyrotropin [Units/volume] in Serum or PlasmaTSH BLD Lab Routine Effects of radiation, sequela 06/17/2022 10:58 AM [facility] Work Phone: Thyroxine (T4) [Mass/volume] in Serum or Plasma T4/THYROXINE BLOOD Lab Routine Effects of radiation, sequela 06/17/2022 10:58 AM [facility] Work Phone: [facility] Immunizations Immunization DateImmunizationNotesCare ProviderFacilityNEGATED: Highlighted row has not occurred!61-13-7902uvyxjpxkg virus vaccine, unspecified formulation Sushil Edgar Jr. executive [facility] Payers DatePayer CategoryPayerPolicy [id number] (Managed Care) [id number] [id number] Health Insurance [id number] [id number] 2022Medicare [id number] 2022MedicaidMEDICAID [facility] MEDICAID [id number] 2021-Present [phone] [address] [place], [place] [id number] [id number] [id number] 10-01-8392Zdbiflm Health [id number]-cmi08-10-1767Oagfalx [id number] [id number]. [id number] 2.16.840.[id number] 2.16.84[id number] 2.16.84[id number] 2.16.840.1.549007.3.57[id number] 2.16.840.1.172591.3.57[id number] 2.16.840.1.911735.3.57[id number] 2.16.840.1.27[id number] 2.16.840.1.673910.3.579.2.531 Social History DateTypeDetailFacilityStart: 11-07-1971 End: 59-80-9291Wgidqui smoking status NHISSmokes tobacco dailyPomerene Hospital Start: 11-07-1971 End: 58-02-3306Ioxmgut of tobacco useCigarette SmokerMer[facility] Hospitaltart: 10-13-2020 End: 78-15-8430Kpiyaoothm smoked current (pack per day) - Dyvxptzu9Slupogiml ClinicStart: 10-13-2020 End: 33-12-9232Kpgwrtk use and exposureUser of smokeless tobaccoPomerene Hospital Start: 12-17-2021 End: 62-77-8890Lresmki intakeCurrent drinker of alcohol (finding)[facility]: 36-54-5875Ebjxmlg SDOH Alcohol CommentsociallyClevelnovant health / [facility] Start: 01-09-2018 End: 04-29-5441Euombes Commentstarted 1972[facility]: 68-17-0272Ybz Assigned At BirthNot on fileMercy Hospitaltart: 01-10-2022 End: 95-91-4812Raioeobw to SARS-CoV-2 (event)Unable to assessPomerene Hospital Start: 08-34-5199Mavjrnr smoking statusLight tobacco smoker (finding)[facility] start: 12-19-2023 End: 53-56-7434Rrp Assigned At BirthMaleExcritical access hospital [facility] start: 06-07-2022 End: 45-19-7377Epzumilw to SARS-CoV-2 (event)Not sureMercy Hospitaltart: 05-54-8435Zslvx Depression Screening Bcqgnzabbp5Hguioajne ClinicStart: 03-28-2023 End: 56-66-4691Beunxog use and exposureSmokeless tobacco non-userNOMS Healthcare Start: 60-34-2701Pxqkajh CommentSmokes 6-10 cigarettes/dayNOMS HealthcareStart: 63-58-6556Kwpjqnc CommentCaffeine >4 cups/dayNOMS HealthcareStart: 07-20-2023 Alcoholic beverage intakeEx-drinker (finding)[facility] Healthcare Clinical Notes 12-16-2021 to 08-28-2025 Note Date & YumdZkfiFhnicnqy17-07-9922 History of Present illness Narrative* Abram Fiore MD - 08/28/2025 11:20 AM EDT Images from the original note were not included. Subjective Patient ID: Carson Morse is a 69 y.o. 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 Chronic hepatitis C ([facility]) 08/28/2025 Closed fracture of ankle 08/28/2025 Closed fracture of distal end of right fibula 08/28/2025 Closed fracture of upper end of fibula 08/28/2025 COPD (chronic obstructive pulmonary disease) ([facility]) 08/28/2025 Diarrhea 08/28/2025 Dysphagia 08/28/2025 Erectile dysfunction 08/28/2025 Facial fracture ([facility]) 08/28/2025 Odynophagia 08/28/2025 Opioid abuse ([facility]) 08/28/2025 Leukocytosis 08/28/2025 Poisoning by unspecified narcotics, accidental (unintentional), initial encounter ([facility]) 08/28/2025 Recurrent falls 08/28/2025 Solitary pulmonary nodule [...] file prior to visit. documented in this encounterMissouri Baptist Hospital-SullivanQxlqkbxdct25-49-1552 History of Present illness Narrative* Wyatt Garza MD - 01/21/2025 11:40 AM EDT Images from the original note were not included. NAME: Carson Morse CLINIC NO.: [id number] DATE OF SERVICE: January 21, 2025 (Mirian) [...] Right paratracheal lymph nodes have decreased in size.No enlarging lymph nodes identified in the chest. [...] Other previously noted nodular opacities measuring up to5 mm, stable since 05/21/20. Diffuse hepatic fatty [...] be stable from the prior PET/CT examination of05/23/2019. No substantial intrathoracic adenopathy is identified. Interval [...] reveals the new pulmonary nodules have resolved, whichsuggests they were inflammatory. Scan shows CADEN. Will [...] reviewed his CT scans, lymph nodes increased, likelydue to recent illness. Chest CT to recheck. [...] organ systems. 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 Updated Visit, June 19, 2020: [...] a central line or IVAD, may access foradministration according to line specific nursing protocol. Once [...] Once exam is complete flush line and de-accessaccording to line specific nursing protocol in the [...] which included preparing to see the patient, hgog-ij-owix patient care, completing clinical documentation, performing a medically appropriate examination, counseling and educating the patient/family/caregiver, ordering medications, tests, or procedures, independently interpreting results (not separately reported), communicating results to the patient/family/caregiver, and care coordination (not separately reported). Wyatt Garza MD, CPE Hematology and Oncology Services Provided at: [place], [place] CC: Elba De La Cruz MD [address] [facility] [address] Halima Nixon MD documented in this encounterPomerene Hospital03-17-2025 NoteHNO ID: [id number] Author: WYATT GARZA MD Service: ? Author Type: Physician Type: Progress Notes Filed: 01/21/2025 11:32 Note Text: NAME: Carson Morse CLINIC NO.: [id number] DATE OF SERVICE: January 21, 2025 (Mirian) [...] January 21, 2025: Recovered (more content not included)...[facility]03-17-2025 Instructions* Patient Instructions* Wyatt Garza MD - 01/21/2025 11:[address] Neck Chest in 12 months Labs same day - include CBC, CMP RTC 1 week after with me to review documented in this encounterPomerene Hospital03-14-2025 Telephone encounter Note * Telephone Encounter - Ivette Lala - 01/18/2025 12:31 PM EDT Unable to lvm and no mychart [facility]03-14-2025 Miscellaneous Notes* Telephone Encounter - Ivette Lala - 01/18/2025 12:31 PM EDT Unable to lvm and no mychart * Telephone Encounter - Mary Villarreal RN - 01/18/2025 10:48 AM EDT Images from the original note were not included. Pt notified of results and recommendations and verbalized understanding. Schedulers, please call pt to schedule US, Fibroscan and OV. Orders are already placed. Thank you, NOLAN Meeks Noma, MD P [facility] Nurse [place] Normal AFP Patient is overdue for US He needs to schedule Halima Nixon MD documented in this encounterPomerene Hospital03-14-2025 Telephone encounter Note * Telephone Encounter - Mary Villarreal RN - 01/18/2025 10:48 AM EDT Images from the original note were not included. Pt notified of results and recommendations and verbalized understanding. Schedulers, please call pt to schedule US, Fibroscan and OV. Orders are already placed. Thank you, NOLAN Meeks Noma, MD [facility] Nurse [place] Normal AFP Patient is overdue for US He needs to schedule Halima Nixon MD [facility] Work Phone: 1(385) 938-896103-06-2025 History of Present illness Narrative* Roxann Mcgregor RN - 01/10/2025 2:15 PM EST Radiology Service Progress Note DATE OF SERVICE: [...] injury, the eGFRmay not accurately reflect actual GFR. eGFR- Date [...] DATE: January 10, 2025 TIME: 2:44 PM * Sonja Melgar RT(R) - 01/10/2025 2:15 PM EST Radiology Service Progress Note PATIENT NAME: Carson Morse DATE OF SERVICE: January 10, 2025 TIME: 2:51 PM PATIENT IDENTITY VERIFICATION COMPLETED USING TWO (2) IDENTIFIERS: Name and Date of confirmedby patient verbally. FALL SCREENING: Has the patient had 2 falls in the last year or 1 fall with injury or currently using an Ambulatory Assistive Device (Walker, Cane, Wheelchair, Crutches, etc.)? No PATIENT GENDER DATA: Assigned male at PATIENT RELEVANT IMPLANT DATA REVIEWED: Not Applicable PATIENT PRESENTS WITH AN IMPLANTABLE OR ATTACHED TELEVISION PRESENTER: No RADIOLOGY DEPARTMENT: CT; Exam(s) Completed: Chest and Neck PERIPHERAL IV DATA: Site assessment: Clean,Dry and Intact, Site disposition Discontinued SIGNED BY: ANNABELLE Stewart) January 10, 2025 2:51 PM documented in this encounterPomerene Hospital03-06-2025 NoteHNO ID: [id number] Author: SONJA MELGAR RT (R) Service: ? [...] PATIENT PRESENTS WITH AN IMPLANTABLE OR ATTACHED TELEVISION PRESENTER: No RADIOLOGY DEPARTMENT: CT; Exam(s) Completed: Chest and Neck PERIPHERAL IV DATA: Site assessment: Clean,Dry and Intact, Site disposition Discontinued SIGNED BY: ANNABELLE Stewart) January 10, 2025 2:51 [facility]03-06-2025 NoteHNO ID: [id number] Author: ROXANN MCGREGOR RN Service: ? Author [...] Morse DATE: January 10, 2025 TIME: 2:44 [facility]10-17-2024 History of Present illness Narrative* Andreina Welch, [facility] - 08/23/2024 11:15 AM EDT Hearing Aid Fitting: Pt fit with [employer] [address] aids coupled to [...] quicker. 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 Pt has flip phone so he cannot use the luis manuel. Pt did notwant to wear the aids home so aids were put in the case. Made follow up appointment and completed HCS paperwork documented in this encounterMissouri Baptist Hospital-[id number] History of Present illness Narrative* Abram Fiore MD - 07/23/2024 9:00 AM EDT Subjective Patient ID: Carson Morse is a 68 y.o. 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 Benign prostatic hyperplasia without urinary obstruction 06/21/2023 Current smoker 06/21/2023 Hoarse voice quality 06/21/2023 Lung nodules 12/18/2020 Malignant neoplasm of head, face and neck ([facility]) 12/18/2020 Mucositis due to radiation therapy 02/27/2018 Myelosuppression 03/24/2018 Severe protein-calorie malnutrition ([facility]) 02/27/2018 Closed right maxillary fracture ([facility]) 07/20/2023 Resolved Ambulatory Problems Diagnosis Date Noted History of tongue cancer 06/21/2023 Nocturia 06/21/2023 Past Medical History: Diagnosis Date COVID-19 10/2021 SCC (squamous cell carcinoma) 12/27/2017 Past Surgical History: Procedure Laterality Date CT LARYNGOSCOPY,DIRECT,DX,OP MICROSCOP 12/27/2017 No Known Allergies Current [...] 1 (one) time each day at thesame time. 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 He will owe [place]250 to [facility]. Explained HCS process to pt and made HAF in 6 weeks documented in this encounterMissouri Baptist Hospital-[id number] Instructions* Patient Instructions* Svetlana Call - 06/29/2024 12:[address] Neck Chest in 12/2024 Labs same day - include CBC, CMP RTC 1 week after with me to review Pursue annual scans and visits after December 2024 documented in this encounterPomerene Hospital08-23-2024 History of Present illness Narrative* Wyatt Garza MD - 06/29/2024 11:15 AM EDT Images from the original note were not included. NAME: Carson Morse CLINIC NO.: [id number] DATE OF SERVICE: June 29, 2024 (Mirian) [...] Other previously noted nodular opacities measuring up to5 mm, stable since 05/21/20. Diffuse hepatic fatty [...] be stable from the prior PET/CT examination of05/23/2019. No substantial intrathoracic adenopathy is identified. Interval [...] reveals the new pulmonary nodules have resolved, whichsuggests they were inflammatory. Scan shows CADEN. Will [...] reviewed his CT scans, lymph nodes increased, likelydue to recent illness. Chest CT to recheck. [...] organ systems. 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 Wyatt Garza MD, CPE Hematology and Oncology Services Provided at: [place], [place] Scribe Attestation: This note was scribed [...] CC: Elba De La Cruz MD [address] [facility] [address] Halima Nixon MD documented in this encounterPomerene Hospital08-23-2024 NoteHNO ID: [id number] Author: WYATT GARZA MD Service: ? Author Type: Physician Type: Progress Notes Filed: 06/30/2024 21:51 Note Text: NAME: Carson Morse CLINIC NO.: [id number] DATE OF SERVICE: June 29, 2024 (Mirian) [...] he is getting o (more content not included)...[facility]08-16-2024 History of Present illness Narrative* Roxann Mcgregor, NOLAN - 06/22/2024 7:45 AM EDT Radiology Service Progress Note DATE OF SERVICE: [...] injury, the eGFRmay not accurately reflect actual GFR. eGFR- Date [...] DATE: June 22, 2024 TIME: 8:31 AM * Sonja Melgar RT(R) - 06/22/2024 7:45 AM EDT Radiology Service Progress Note PATIENT NAME: Carson Morse DATE OF SERVICE: June 22, 2024 TIME: 8:54 AM PATIENT IDENTITY VERIFICATION COMPLETED USING TWO (2) IDENTIFIERS: Name and Date of confirmedby patient verbally. FALL SCREENING: Has the patient had 2 falls in the last year or 1 fall with injury or currently using an Ambulatory Assistive Device (Walker, Cane, Wheelchair, Crutches, etc.)? No PATIENT GENDER DATA: Male PATIENT RELEVANT IMPLANT DATA REVIEWED: Not Applicable PATIENT PRESENTS WITH AN IMPLANTABLE OR ATTACHED TELEVISION PRESENTER: No RADIOLOGY DEPARTMENT: CT; Exam(s) Completed: Chest PERIPHERAL IV DATA: Site assessment: Clean,Dry and Intact, Site disposition Discontinued SIGNED BY: RT Terry(R) June 22, 2024 8:54 AM documented in this encounterPomerene Hospital08-16-2024 NoteHNO ID: [id number] Author: SONJA MELGAR RT(R) Service: ? Author [...] PATIENT PRESENTS WITH AN IMPLANTABLE OR ATTACHED TELEVISION PRESENTER: No RADIOLOGY DEPARTMENT: CT; Exam(s) Completed: Chest PERIPHERAL IV DATA: Site assessment: Clean,Dry and Intact, Site disposition Discontinued SIGNED BY: ANNABELLE Stewart) June 22, 2024 8:54 [facility]08-16-2024 NoteHNO ID: [id number] Author: ROXANN MCGREGOR RN Service: ? Author [...] Morse DATE: June 22, 2024 TIME: 8:31 [facility]08-06-2024 Telephone encounter Note* Telephone Encounter - Emily Armstrong RN - 06/12/2024 1:11 PM EDT ----- Message from Halima Nixon MD sent [...] Please review and sign Emily Hi RN [facility]08-06-2024 Miscellaneous Notes* Telephone Encounter - Emily Armstrong RN - 06/12/2024 1:11 PM EDT ----- Message from Halima Nixon MD sent [...] sign Emily Hi RN documented in this encounterPomerene Hospital07-22-2024 History of Present illness Narrative* eMlba Ag RDMS - 05/28/2024 2:30 PM EDT Radiology Service Progress Note PATIENT NAME: Carson Morse DATE OF SERVICE: May 28, 2024 TIME: 1:49 PM PATIENT IDENTITY VERIFICATION COMPLETED USING TWO (2) IDENTIFIERS: Name and Date of confirmedby patient verbally. FALL SCREENING: Has the patient had 2 falls in the last year or 1 fall with injury or currently using an Ambulatory Assistive Device (Walker, Cane, Wheelchair, Crutches, etc.)? No PATIENT GENDER DATA: Male PATIENT RELEVANT IMPLANT DATA REVIEWED: Not Applicable PATIENT PRESENTS WITH AN IMPLANTABLE OR ATTACHED TELEVISION PRESENTER: No RADIOLOGY DEPARTMENT: Ultrasound PERIPHERAL IV DATA: Not applicable SIGNED BY: Melba Ag RDMS May 28, 2024 1:49 PM documented in this encounterPomerene Hospital07-22-2024 NoteHNO ID: [id number] Author: MELBA AG RDMS Service: Radiology Author Type: Vocational Examiner Type: Progress Notes Filed: 05/28/2024 13:57 Note [...] PATIENT PRESENTS WITH AN IMPLANTABLE OR ATTACHED TELEVISION PRESENTER: No RADIOLOGY DEPARTMENT: Ultrasound PERIPHERAL IV DATA: Not applicable SIGNED BY: Melba Ag RDMS May 28, 2024 1:49 [facility]07-18-2024 Telephone encounter Note* Telephone Encounter - Emily Armstrong RN - 05/24/2024 9:49 AM EDT ----- Message from Halima Nixon MD sent at 05/23/2024 2:56 PM EDT ----- Negative hep C RNA consistent with sustained response Repeat in one year Reviewed test results Pt read result message from Dr. Nixon via [employer]. Called and spoke to patient regarding test results and recommendation from Dr. Nixon Pt state dUS is sched for [facility] Demonstrated understanding Dr. Lund, Orders submitted for repeat Hep C RNA Please review and sign Emily Hi RN [facility]07-18-2024 Miscellaneous Notes* Telephone Encounter - Emily Armstrong RN - 05/24/2024 9:49 AM EDT ----- Message from Halima Nixon MD sent at 05/23/2024 2:56 PM EDT ----- Negative hep C RNA consistent with sustained response Repeat in one year Reviewed test results Pt read result message from Dr. Nixon via [employer]. Called and spoke to patient regarding test results and recommendation from Dr. Nixon Pt state dUS is sched for [facility] Demonstrated understanding Dr. Lund, Orders submitted for repeat Hep C RNA Please review and sign Emily Hi RN documented in this encounterPomerene Hospital07-15-2024 Telephone encounter Note * Telephone Encounter - Emily Armstrong RN - 05/21/2024 10:14 AM EDT Called and updated pt on scheduling US Phone number provided for scheduling Also instructed to complete lab draw at [facility] facility Pt demonstrated understanding Emily Armstrong RN [facility]07-15-2024 Miscellaneous Notes* Telephone Encounter - Emily Armstrong RN - 05/21/2024 10:14 AM EDT Called and updated pt on scheduling US Phone number provided for scheduling Also instructed to complete lab draw at [facility] facility Pt demonstrated understanding Emily Armstrong RN * Telephone Encounter - Emily Armstrong RN - 05/17/2024 3:56 PM EDT ----- Message from Halima Nixon MD sent at 05/17/2024 1:24 PM EDT ----- This patient needs RUQ US and HCV RNA ND Dr. Nixon, Please review and sign orders, Emily Hi RN documented in this encounterPomerene Hospital07-11-2024 Telephone encounter Note * Telephone Encounter - Emily Armstrong RN - 05/17/2024 3:56 PM EDT ----- Message from Halmia Nixon MD sent at 05/17/2024 1:24 PM EDT ----- This patient needs RUQ US and HCV RNA ND Dr. Nixon, Please review and sign orders, Thanks, Emily Armstrong, RN [facility]05-24-2024 Instructions* Patient Instructions* Svetlana Rdz - 03/30/2024 2:[address] Chest with labs in 3 months RTC 1 week after to review documented in this encounterPomerene Hospital05-24-2024 History of Present illness Narrative* Wyatt Garza MD - 03/30/2024 2:45 PM EDT Images from the original note were not included. NAME: Carson Morse CLINIC NO.: [id number] DATE OF SERVICE: March 30, 2024 (iMrian) Some elements in this clinic note that [...] Other previously noted nodular opacities measuring up to5 mm, stable since 05/21/20. Diffuse hepatic fatty [...] be stable from the prior PET/CT examination of05/23/2019. No substantial intrathoracic adenopathy is identified. Interval [...] reviewed his CT scans, lymph nodes increased, likelydue to recent illness. Chest CT to recheck. [...] organ systems. 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 Updated Visit, June 19, 2020: [...] quittin.0 Smokeless tobacco: Current Tobacco comments: started 1972 Vaping Use Vaping Use: Never used Substance Use Topics Alcohol use: Yes Comment: socially Drug use: Never Comment: quit 2008 FAMILY HISTORY Problem Relation Age of Onset Diabetes Mother Stroke Mother Diabetes Father Stroke Daughter Colon Cancer No Family History I spent a total of 30 minutes on the date of service which included preparing to see the patient, lihb-to-ytwb patient care, completing clinical documentation, performing a medically appropriate examination, counseling and educating the patient/family/caregiver, ordering medications, tests, or procedures, independently interpreting results (not separately reported), communicating results to the patient/family/caregiver, and care coordination (not separately reported). Wyatt Garza MD, CPE Hematology and Oncology Services Provided at: [facility], [place], [place] Scribe Attestation: This note was scribed [...] CC: Elba De La Cruz MD [address] [facility] [address] Halima Nixon MD documented in this encounterPomerene Hospital05-24-2024 NoteHNO ID: [id number] Author: WYATT GARZA MD Service: ? Author Type: Physician Type: Progress Notes Filed: 04/01/2024 09:31 Note Text: NAME: Carson Morse CLINIC NO.: [id number] DATE OF SERVICE: March 30, 2024 (Mirian) [...] is going to tr (more content not included)...[facility]05-17-2024 History of Present illness Narrative* Sonja Melgar, RT(R) - 03/23/2024 8:15 AM EDT RADIOLOGY SERVICE PROGRESS NOTE SERVICE DATE: 03/23/2024 [...] PATIENT PRESENTS WITH AN IMPLANTABLE OR ATTACHED TELEVISION PRESENTER: No CREATININE: Creatinine Date Value Ref Range [...] injury, the eGFRmay not accurately reflect actual GFR. eGFR- Date [...] contrast PATIENT DISCHARGED TO: Ambulatory patient, left ID department area. A Diagnostic radioactive procedure has taken place, with no further precautions necessary other than routine body substance precautions. More information regarding radiation safety can be found usingthis link: [email or web address] 20Diagnostic%20Nuclear%20Medicine%20Procedures.pdf SIGNATURE: RT Terry(Porter) PATIENT NAME: Carson Morse DATE: March 23, 2024 TIME: 9:22 AM PAGER/CONTACT #: documented in this encounterPomerene Hospital05-17-2024 NoteHNO ID: [id number] Author: SONJA MELGAR RT(R) Service: ? Author [...] PATIENT PRESENTS WITH AN IMPLANTABLE OR ATTACHED TELEVISION PRESENTER: No CREATININE: Creatinine Date Value Ref Range [...] contrast PATIENT DISCHARGED TO: Ambulatory patient, left ID department area. A Diagnostic radioactive procedure has taken place, with no further precautions necessary other than routine body substance precautions. More information regarding radiation safety can be found using this link: [email or web address]-% 20Diagnostic%20Nuclear%20Medicine%20Procedures.pdf SIGNATURE: RT Terry(R) PATIENT NAME: Carson Morse DATE: March 23, 2024 TIME: 9:22 AM PAGER/CONTACT #:[facility]02-12-2024 Miscellaneous Notes* Telephone Encounter - Zeny Tom RN - 12/19/2023 12:17 PM EST Pt informed of Secret Sales's message and denies any questions, needs or concerns at this time.(Pt had appt today with Frankie and discussed) Appointments verified. Zeny Tom RN * Telephone Encounter - Zeny Tom RN - 12/19/2023 12:17 PM EST ----- Message from Waytt Garza MD sent at 12/17/2023 8:59 AM EST ----- Scans are stable - I will discuss at his appointment. documented in this encounterPomerene Hospital02-12-2024 Instructions* Patient Instructions* Svetlana Rdz - 12/19/2023 10:[address] Chest in 6 weeks RTC 1 week after to review If CT Chest clear then pursue routine annual visits documented in this encounterPomerene Hospital02-12-2024 History of Present illness Narrative* Wyatt Garza MD - 12/19/2023 10:30 AM EST Images from the original note were not included. NAME: Carson Morse CLINIC NO.: [id number] DATE OF SERVICE: December 19, 2023 (Mirian) [...] Other previously noted nodular opacities measuring up to5 mm, stable since 05/21/20. Diffuse hepatic fatty [...] be stable from the prior PET/CT examination of05/23/2019. No substantial intrathoracic adenopathy is identified. Interval [...] reviewed his CT scans, lymph nodes increased, likelydue to recent illness. Chest CT to recheck. [...] organ systems. 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 Wyatt Garza MD, CPE Hematology and Oncology Services Provided at: [facility], [place], [place] Scribe Attestation: This note was scribed by Svetlana Rdz on December 19, 2023 under the direction and supervisionof Dr. Wyatt Gazra. I attest that all of the information documented is correct to the best of my knowledge. Provider Attestation: I, Wyatt Garza MD, attest that all information documented by the above scribe is correct, and was supervised by me and under my direction. CC: Elba De La Cruz MD [address] [facility] [address] Halima Nixon MD documented in this encounterPomerene Hospital02-09-2024 History of Present illness Narrative* Roxann Mcgregor RN - 12/16/2023 9:45 AM EST Radiology Service Progress Note DATE OF SERVICE: [...] injury, the eGFRmay not accurately reflect actual GFR. eGFR- Date Value Ref Range Status 12/16/2021 >60 Final P.O.C.T. RESULTS: POC done: Yes, See Lab Tab December 16, 2023 TREATMENT: N/A IV SITE: Ambulatory: A peripheral IV was started in the Left antecubital site with a Angio cath: 20gauge. IV SITE APPEARANCE: Clean,Dry and Intact SIGNATURE: Roxann Mcgregor RN PATIENT NAME: Carson Morse DATE: December 16, 2023 TIME: 10:05 AM * Sonja Melgar RT(R) - 12/16/2023 9:45 AM EST Radiology Service Progress Note PATIENT NAME: Carson Morse DATE OF SERVICE: December 16, 2023 TIME: 10:54 AM PATIENT IDENTITY VERIFICATION COMPLETED USING TWO (2) IDENTIFIERS: Name and Date of confirmedby patient verbally. FALL SCREENING: Has the patient [...] 16, 2023 10:54 AM documented in this encounterPomerene Hospital02-21-2023 NotePROCEDURE: XR ANKLE RT MIN 3 VIEWS HISTORY: [...] Electronically authenticated by: DARRELL SPRING Date: 2022-12-28 07:42[facility]02-09-2023 Instructions* Patient Instructions* Wyatt Garza MD - 12/16/2022 11:[address] Neck Chest in 12 months labs same day Labs in 1 year with scans include CBC, CMP RTC in 12 months with me to review Patient to continue follow up with Dr. Leon RAWLS documented in this encounterPomerene Hospital02-09-2023 History of Present illness Narrative* Wyatt Garza MD - 12/16/2022 11:18 AM EST Images from the original note were not included. NAME: Carson Morse CLINIC NO.: [id number] DATE OF SERVICE: December 17, 2021 Some [...] organ systems. 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 [...] which included preparing to see the patient, quza-yk-rzru patient care, completing clinical documentation, performing a medically appropriate examination, counseling and educating the patient/family/caregiver, ordering medications, tests, or p rocedures, and independently interpreting results (not separately reported). Wyatt Garza MD, [place], [place] CC: Wyatt Garza MD [address] [place] [address] [place] [address] Elba De La Cruz MD [address] [facility] [address] Halima Nixon MD documented in this encounterPomerene Hospital02-08-2023 History of Present illness Narrative* Jazmine Galindo RN - 12/15/2022 7:45 AM EST Radiology Service Progress Note DATE OF SERVICE: [...] injury, the eGFRmay not accurately reflect actual GFR. eGFR- Date [...] DATE: December 15, 2022 TIME: 8:23 AM * Sonja Melgar RT(R) - 12/15/2022 7:45 AM EST Radiology Service Progress Note PATIENT NAME: Carson Morse DATE OF SERVICE: December 15, 2022 TIME: 9:40 AM PATIENT IDENTITY VERIFICATION COMPLETED USING TWO (2) IDENTIFIERS: Name and Date of confirmedby patient verbally. FALL SCREENING: Has the patient [...] 15, 2022 9:40 AM documented in this encounterPomerene Hospital09-09-2022 History of Present illness Narrative* Bhavya Cohen RPh - 07/16/2022 1:59 PM EDT Medication(s): Epclusa Total duration of treatment: 12 weeks Estimated Start Date: 01/23 Estimated Completion Date: 04/17 Estimated SVR 07/10/22 Due for SVR12 lab at this time. Bhavya Cohen RPh Clinical Pharmacist, Hepatology and Biologics [facility] P: ; F: Pool: P CC SPEC GROUP 2 ([id number]) documented in this encounterPomerene Hospital08-11-2022 History of Present illness Narrative* G Dragan Atkins MD - 06/17/2022 10:45 AM EDT Radiation Oncology - Follow Up Note PATIENT [...] oral and pharyngeal mucosa mildly dry. No lesionsor suspicious areas. No persistent mucositis. Tongue mobile [...] MD cc: Elba De La Cruz MD [address] [place] [id number] Timmis documented in this encounterPomerene Hospital08-03-2022 Miscellaneous Notes* Telephone Encounter - Tory Self RN - 06/09/2022 1:32 PM EDT Please sign pended labs for upcoming visit. Tory Self RN documented in this encounterPomerene Hospital06-09-2022 History of Present illness Narrative* Ruddy Gaffney - 04/15/2022 2:39 PM EDT [facility] Visit Assessment - Hepatology: [...] provider regarding future tests. Ruddy Gaffney CPhT [facility] documented in this encounterPomerene Hospital05-31-2022 Hospital Discharge instructions Patient Education 04/06/2022 11:59:09 Hematuria, Adult Hematuria, Adult Hematuria is blood in the urine. Blood may be visible in the urine, or it may be identified with a test. This condition can be caused by infections of the bladder, urethra, kidney, or prostate. Otherpossible causes include: Kidney stones. Cancer of the [...] blood in your urine, even if it ispainless or the blood stops without treatment. Blood in the urine, when it happens and then stops and then happens again, can be a symptom of a very serious condition, including cancer. There is no pain in the initial stages of many urinary cancers. Follow these instructions at home: Medicines Take yyyz-wfs-cipocol and prescription medicines only as told by your health care provider. If you were prescribed an antibiotic medicine, take it as told by your health care provider. Do notstop taking the antibiotic even if you start [...] about any blood in your urine, even ifit is painless or the blood stops without treatment. Take fgou-qix-ozklwgt and prescription medicines only as told by your health care provider. Drink enough fluid to keep your urine clear or pale yellow. This information is not intended to replace advice given to you by your health care provider. Make sure you discuss any questions you have with your health care provider. Document Released: 10/24/2006 Document Revised: 03/19/2020 Document Reviewed: 11/26/2017 [employer] Patient Education 2019 [employer]. Follow Up Care 08/27/2021 11:36:33 With:Herve Flores MD, Sushil Degroot URO Address: [facility] [address] , [place] [address]- When:04/06/2023 Comments:w/fátima [facility] 05-16-2022 Miscellaneous Notes* Telephone Encounter - Raquel Xiao RN - 03/22/2022 1:35 PM EDT Pt aware of results and to get blood work repeated in 3 months. * Telephone Encounter - Raquel Xiao RN - 03/22/2022 1:33 PM EDT ----- Message from Halima Nixon MD sent at 03/19/2022 3:58 PM EDT ----- Liver enzymes are stable Didn't improve that much The HCV RNA Is negative consistent with viral response Repeat LFTs and HCV RNA in 3 months documented in this encounterPomerene Hospital05-05-2022 History of Present illness Narrative* Ruddy Gaffney - 03/11/2022 2:17 PM EDT [facility] Refill Assessment Medication(s): Epclusa (Fill 3 of 3) Total duration of treatment: 12 weeks Estimated Start Date: 01/23 Estimated Completion Date: 04/17 Estimated SVR 9/3/22 Therapy continues to be appropriate for disease, patient response, and medical condition. Verification of therapeutic benefit and effectiveness with current therapy. Adverse events, barriers in adherence, and side effects assessed and addressed. Will proceed with refill with no changes. [facility] Assessment - Hepatology: Is pre-assessment?: No Is initial or refill assessment?: Yes Assessment to use: Refill Non-Clinical Assessment: Patient confirmed: Yes Med/dose confirmed: Yes Supplies needed: N/A Missed doses: No Estimated days supply on hand: 10 Next cycle/dose due: 03/12/2022 Copay amount: 0 Payment confirmed: Yes Address confirmed: Yes Delivery method: FedEx Delivery address: [address] [place] [id number] Delivery date: 03/15/2022 Patient has questions: No [...] if on ribavirin: N/A Ruddy Gaffney CPhT Signal Apprentice, Inflammatory & Neurology [facility] documented in this encounterPomerene Hospital04-07-2022 History of Present illness Narrative* Ruddy Gaffney - 02/11/2022 1:31 PM EDT [facility] Special[facility] Refill Assessment Medication(s): Epclusa (2 of 3) Total duration of treatment: 12 weeks Estimated Start Date: 01/23 Estimated Completion Date: 04/17 Estimated SVR 07/10/22 Labs have been ordered but not yet collected. Goal remains to complete full treatment. Unable to assess compliance although patient does not report missed doses. Bhavya Cohen RPh Clinical Pharmacist, Hepatology and Biologics [facility] P: ; F: Pool: P CC SPEC GROUP 2 ([id number]) Therapy continues to be appropriate for disease, patient response, and medical condition. Verification of therapeutic benefit and effectiveness with current therapy. Adverse events, barriers in adherence, and side effects assessed and addressed. Will proceed with refill with no changes. [facility] Visit Assessment - Hepatology: Is pre-assessment?: No Is initial or refill assessment?: Yes Assessment to use: Refill Non-Clinical Assessment: Patient confirmed: Yes Med/dose confirmed: Yes Supplies needed: N/A Missed doses: No Estimated days supply on hand: 8 Next cycle/dose due: 02/12/2022 Copay amount: 0 Payment confirmed: Yes Address confirmed: Yes Delivery method: FedEx Delivery address: [address] [place] [address] Delivery date: 02/15/2022 Patient has questions: No Refill Assessment: Concurrent med therapy screening: Yes Adverse reactions and mitigation: Yes Hepatitis C RNA level at 12 weeks after end of therapy with additional testing as clinically indicated: Yes Hepatic function panel, eGFR: Yes CBC after 2 weeks if on ribavirin: N/A Ruddy Gaffney documented in this encounterPomerene Hospital03-24-2022 Miscellaneous Notes* Telephone Encounter - Raquel Xiao RN - 01/28/2022 1:50 PM EDT Spoke with pt. Advised to get blood work in 3 weeks. * Telephone Encounter - Raquel Xiao RN - 01/25/2022 9:44 AM EDT Images from the original note were not included. Pended standing blood work while on Epclusa NOLAN Trinh MD Cindi O'Neill, RN Previous Messages ----- Message ----- From: Bhavya Cohen RPh Sent: 01/20/2022 3:00 PM EDT To: MD PACO Lam - Pt is scheduled to receive shipment of Epclusa on 01/22 and will start 01/23. Patient informed to contact office to schedule pertinent labs while on treatment. Full details on cost and medicationcounseling in this encounter. Bhavya Hi documented in this encounterPomerene Hospital02-09-2022 History of Present illness Narrative* Jazmine Galindo RN - 12/16/2021 7:30 AM EST Radiology Service Progress Note DATE OF SERVICE: [...] and/or any recent Nephrotoxic Chemotherapy or other Nephrotoxicmedications CREATININE: Creatinine Date Value Ref Range Status [...] visit the National Kid[employer] website at kidney.org/professionals/kdoqi/gfr_calculator. eGFR- Date Value Ref Range Status 12/16/2021 [...] DATE: December 16, 2021 TIME: 8:24 AM * Sonja Melgar RT(R) - 12/16/2021 7:30 AM EST Radiology Service Progress Note PATIENT NAME: Carson Morse DATE OF SERVICE: December 16, 2021 TIME: 8:33 AM PATIENT IDENTITY VERIFICATION COMPLETED USING TWO (2) IDENTIFIERS: Name and Date of confirmedby patient verbally. FALL SCREENING: Has the patient [...] Site disposition Discontinued SIGNED BY: RT Terry(Porter) December 16, 2021 8:33 AM documented in this encounterPomerene HospitalEvaluation + Plan note Future Appointments Appointment Date:04/12/2023 08:00:00 AM Scheduled Provider:Sushil Edgar Jr., MD Location:[facility] Appointment Type:URO Office Visit Diagnostic Tests Pending * PSA Total 04/06/22 [facility] evaluation note* Diagnosis Hepatitis C antibody positive in blood- Primary documented in this encounter [facility] HospitalEvaluation [facility]* Diagnosis Chronic hepatitis C without hepatic coma (HCC)- Primary Chronic hepatitis C without mention of hepatic coma [facility] Diagnosis Effects of radiation, sequela- Primary [facility]* Diagnosis Effects of radiation, sequela- Primary Head and neck cancer (HCC) Malignant neoplasm of head, face, and neck [facility]* Diagnosis Chronic hepatitis C with hepatic coma (HCC)- Primary Chronic hepatitis C with hepatic coma [facility]* Diagnosis Malignant neoplasm of head, 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, face, and neck Lung nodules Other nonspecific abnormal finding of lung field Disorder of thyroid Unspecified disorder of thyroid [facility]* Diagnosis Localized enlarged lymph nodes- Primary Enlargement of lymph nodes Severe protein-calorie malnutrition (HCC) Other severe protein-calorie malnutrition Malignant neoplasm of head, 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, face, and neck History of head and neck cancer [facility]* Diagnosis History of head and neck cancer- Primary Lung nodules Other nonspecific abnormal finding of lung field [facility]* Diagnosis Chronic hepatitis C without hepatic coma (HCC)- Primary Chronic hepatitis C without mention of hepatic coma Abnormal LFTs Other abnormal blood chemistry [facility]* Diagnosis Chronic hepatitis C without hepatic coma (HCC)- Primary Chronic hepatitis C without mention of hepatic coma [facility]* Diagnosis Abnormal LFTs Other abnormal blood chemistry Chronic hepatitis C without hepatic coma (HCC) Chronic hepatitis C without mention of hepatic coma [facility]* Diagnosis Fatty liver- Primary Other chronic nonalcoholic liver disease [facility]* Diagnosis History of head and neck cancer- Primary Lung nodules Other nonspecific abnormal finding of lung field [facility]* Diagnosis History of head and neck cancer Lung nodules Other nonspecific abnormal finding of lung field [facility]* Diagnosis Localized enlarged lymph nodes Enlargement of lymph nodes History of head and neck cancer [facility]* Diagnosis Lung nodules Other nonspecific abnormal finding of lung field documented in this encounter [facility]* Diagnosis Malignant neoplasm of head, 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, face, and neck Lung nodules Other nonspecific abnormal finding of lung field Disorder of thyroid Unspecified disorder of thyroid documented in this encounter [facility]* Diagnosis Sensorineural hearing loss (SNHL) of both ears- Primary documented in this encounter [facility]* Diagnosis 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, unspecified site documented in this encounter [facility]* Diagnosis Sensorineural hearing loss (SNHL) of both ears- Primary documented in this encounter [facility]* Diagnosis History of head and neck cancer Lung nodules Other nonspecific abnormal finding of lung field Fatty liver Other chronic nonalcoholic liver disease [facility]* Diagnosis History of head and neck cancer- Primary Lung nodules Other nonspecific abnormal finding of lung field [facility]* Diagnosis Non-seasonal allergic rhinitis due to other allergic trigger- Primary Chronic sinusitis, unspecified location Tongue cancer (HCC) Malignant neoplasm of tongue, unspecified site Bilateral impacted cerumen Impacted cerumen documented in this encounter [facility] HealthcareHospital course Narrative No data available for this section [facility] reason for referral (narrative)* Diagnostic Procedure Only (Routine) - AuthorizedSpecialtyDiagnoses / ProceduresReferred By Contact Referred To [facility] Diagnoses Abnormal LFTs Chronic hepatitis C without hepatic coma (HCC) Procedures US ABD RIGHT UPPER QUADRANT US ABDOMINAL REAL TIME W/[place] [address] [place] [address] [place] [address] Referral IDStatusReasonStart DateExpiration DateVisits RequestedVisits [id number] Auto-Generated Referral / [facility] for referral (narrative)* Diagnostic Procedure Only (Routine) - ClosedSpecialtyDiagnoses / ProceduresReferred By ContactReferred To [facility] Diagnoses Abnormal LFTs Chronic hepatitis C without hepatic coma (HCC) Procedures US ABD RIGHT UPPER QUADRANT US ABDOMINAL REAL TIME W/IMAGE LIMITED Halima Nixon [place] [id number] [place] [phone] [place] [address] Referral IDStatusReasonStart DateExpiration DateVisits RequestedVisits [id number] Auto-Generated Referral / [facility] HospitalReason for referral (narrative)* Outpatient Procedure (Routine) - New RequestSpecialtyDiagnoses / ProceduresReferred By ContactReferred To [facility] Diagnoses Fatty liver Procedures DDI VIBRATION CONTROLLED TRANSIENT ELASTOGRAPHY (VCTE) LIVER ELASTOGRAPHY W/O IMAG W/I&R [place] Nixon [place] [id number] [place] [phone] [facility] [place] [address] [place], [place] [id number] Referral IDStatusReasonStart DateExpiration DateVisits RequestedVisits [id number] Request Auto-Generated Referral / * Diagnostic Procedure Only (Routine) - New RequestSpecialtyDiagnoses / ProceduresReferred By ContactReferred To [facility] Diagnoses Fatty liver Procedures US ABD RIGHT UPPER QUADRANT US ABDOMINAL REAL TIME W/[place] [address] [place] [address] [place] [address] Referral IDStatusReasonStart DateExpiration DateVisits RequestedVisits [id number] Request Auto-Generated Referral / [facility] Summary Purpose Family History No Family History Records FoundNo Family History Records FoundNo Family History Records FoundNo Family History Records FoundNo Family History Records Found Advance Directives No Advanced Directives Records FoundNo Advanced Directives Records FoundNo Advanced Directives Records FoundNo Advanced Directives Records FoundNo Advanced Directives Records Found Reason for Referral SpecialtyDiagnoses / ProceduresReferred By ContactReferred To [facility] Diagnoses Malignant neoplasm of head, face and neck (HCC) Lung nodules Procedures CT CHEST W IVCON DIAGNOSTIC COMPUTED TOMOGRAPHY THORAX W/CONTRAST Wyatt Garza MD [address] [place] [address] [id number] [place] [address] Referral IDStatusReasonStart DateExpiration DateVisits RequestedVisits [id number] Auto-Generated Referral [id number] / ProceduresReferred By ContactReferred To ContactCT IMAGING Diagnoses Malignant neoplasm of head, face and neck (HCC) Lung nodules Procedures CT NECK SOFT TISSUE W IVCON CT SOFT TISSUE NECK W/CONTRAST MATERIAL Wyatt Garza MD [address] [place] [address] DR [place], [facility] [place] [address] Referral IDStatusReasonStart DateExpiration DateVisits RequestedVisits [id number] Auto-Generated Referral [id number] / ProceduresReferred By ContactReferred To ContactCT IMAGING Diagnoses History of head and neck cancer Lung nodules Procedures CT CHEST W IVCON DIAGNOSTIC COMPUTED TOMOGRAPHY THORAX W/CONTRAST Wyatt Garza MD [address] [place] [address] [place] [address] [place] [address] Referral IDStatusReasonStart DateExpiration DateVisits RequestedVisits [id number] Auto-Generated Referral [id number] / ProceduresReferred By ContactReferred To ContactCT IMAGING Diagnoses Localized enlarged lymph nodes History of head and neck cancer Procedures CT CHEST W IVCON DIAGNOSTIC COMPUTED TOMOGRAPHY THORAX W/CONTRAST Abhyankar, Wyatt, MD [address] [facility] [place] [address] [place] [address] Referral IDStatusReasonStart DateExpiration DateVisits RequestedVisits [id number] Auto-Generated Referral [id number] / ProceduresReferred By ContactReferred To ContactCT IMAGING Diagnoses Lung nodules Procedures CT NECK SOFT TISSUE W IVCON CT SOFT TISSUE NECK W/CONTRAST MATERIAL Wyatt Garza MD [address] [facility] [place] [address] Ct Imaging Referral IDStatusReasonStart DateExpiration DateVisits RequestedVisits [id number] Auto-Generated Referral [id number] / ProceduresReferred By ContactReferred To ContactCT IMAGING Diagnoses Lung nodules Procedures CT CHEST W IVCON DIAGNOSTIC COMPUTED TOMOGRAPHY THORAX W/CONTRAST Wyatt Garza MD [address] [facility] [place] [address] Ct Imaging Referral IDStatusReasonStart DateExpiration DateVisits RequestedVisits [id number] Auto-Generated Referral [id number] / ProceduresReferred By ContactReferred To ContactCT IMAGING Diagnoses Effects of radiation, sequela Head and neck cancer (HCC) Procedures CT CHEST WO IVCON DIAGNOSTIC COMPUTED TOMOGRAPHY THORAX W/O Marleni Calhoun MD [address] [facility] [place] [address] Ct Imaging Referral IDStatusReasonStart DateExpiration DateVisits RequestedVisits [id number] Review Auto-Generated Referral Additional Source Comments (unrecognized sect ion and content) No Status Records FoundNo Status Records FoundNo Status Records FoundNo Status Records FoundNo Status Records Found INFORMATION SOURCE (unrecogn ized section and content) DATE CREATED AUTHOR 03/20/2019 [facility] DATE CREATED AUTHOR AUTHOR'S ORGANIZ ATION 03/07/2023 [facility] DATE CREATED AUTHOR AUTHOR'S ORGANIZ ATION 03/17/2023 [facility] DATE CREATED AUTHOR AUTHOR'S ORGANIZ ATION 02/02/2025 [facility] DATE CREATED AUTHOR AUTHOR'S ORGANIZ ATION 08/30/2025 [facility] EPIC Source Comments (unrecognize d section and content) In the event this informatio n is protected by the Federal Confidentiality of Alcohol and Drug Abuse Patient Records regulations: The Federal rules restrict any use of the information to criminally investigate or prosecute any alcohol or drug abuse patient.[facility] HospitalIn the event this information is protected by the Federal Confidentiality of Alcohol and Drug Abuse Patient Records regulations: The Federal rules restrict any use of the information to criminally investigate or prosecute any alcohol or drug abuse patient.[facility] HospitalIn the event this information is protected by the Federal Confidentiality of Alcohol and Drug Abuse Patient Records regulations: The Federal rules restrict any use of the information to criminally investigate or prosecute any alcohol or drug abuse patient.[facility] HospitalIn the event this information is protected by the Federal Confidentiality of Alcohol and Drug Abuse Patient Records regulations: The Federal rules restrict any use of the information to criminally investigate or prosecute any alcohol or drug abuse patient.[facility] HospitalIn the event this information is protected by the Federal Confidentiality of Alcohol and Drug Abuse Patient Records regulations: The Federal rules restrict any use of the information to criminally investigate or prosecute any alcohol or drug abuse patient.[facility] HospitalIn the event this information is protected by the Federal Confidentiality of Alcohol and Drug Abuse Patient Records regulations: The Federal rules restrict any use of the information to criminally investigate or prosecute any alcohol or drug abuse patient.[facility] HospitalIn the event this information is protected by the Federal Confidentiality of Alcohol and Drug Abuse Patient Records regulations: The Federal rules restrict any use of the information to criminally investigate or prosecute any alcohol or drug abuse patient.[facility] HospitalIn the event this information is protected by the Federal Confidentiality of Alcohol and Drug Abuse Patient Records regulations: The Federal rules restrict any use of the information to criminally investigate or prosecute any alcohol or drug abuse patient.[facility] HospitalIn the event this information is protected by the Federal Confidentiality of Alcohol and Drug Abuse Patient Records regulations: The Federal rules restrict any use of the information to criminally investigate or prosecute any alcohol or drug abuse patient.[facility] HospitalIn the event this information is protected by the Federal Confidentiality of Alcohol and Drug Abuse Patient Records regulations: The Federal rules restrict any use of the information to criminally investigate or prosecute any alcohol or drug abuse patient.[facility] HospitalIn the event this information is protected by the Federal Confidentiality of Alcohol and Drug Abuse Patient Records regulations: The Federal rules restrict any use of the information to criminally investigate or prosecute any alcohol or drug abuse patient.[facility] HospitalIn the event this information is protected by the Federal Confidentiality of Alcohol and Drug Abuse Patient Records regulations: The Federal rules restrict any use of the information to criminally investigate or prosecute any alcohol or drug abuse patient.[facility] HospitalIn the event this information is protected by the Federal Confidentiality of Alcohol and Drug Abuse Patient Records regulations: The Federal rules restrict any use of the information to criminally investigate or prosecute any alcohol or drug abuse patient.[facility] HospitalIn the event this information is protected by the Federal Confidentiality of Alcohol and Drug Abuse Patient Records regulations: The Federal rules restrict any use of the information to criminally investigate or prosecute any alcohol or drug abuse patient.[facility] HospitalIn the event this information is protected by the Federal Confidentiality of Alcohol and Drug Abuse Patient Records regulations: The Federal rules restrict any use of the information to criminally investigate or prosecute any alcohol or drug abuse patient.[facility] HospitalIn the event this information is protected by the Federal Confidentiality of Alcohol and Drug Abuse Patient Records regulations: The Federal rules restrict any use of the information to criminally investigate or prosecute any alcohol or drug abuse patient.[facility] HospitalIn the event this information is protected by the Federal Confidentiality of Alcohol and Drug Abuse Patient Records regulations: The Federal rules restrict any use of the information to criminally investigate or prosecute any alcohol or drug abuse patient.[facility] HospitalIn the event this information is protected by the Federal Confidentiality of Alcohol and Drug Abuse Patient Records regulations: The Federal rules restrict any use of the information to criminally investigate or prosecute any alcohol or drug abuse patient.[facility] HospitalIn the event this information is protected by the Federal Confidentiality of Alcohol and Drug Abuse Patient Records regulations: The Federal rules restrict any use of the information to criminally investigate or prosecute any alcohol or drug abuse patient.[facility] HospitalIn the event this information is protected by the Federal Confidentiality of Alcohol and Drug Abuse Patient Records regulations: The Federal rules restrict any use of the information to criminally investigate or prosecute any alcohol or drug abuse patient.[facility] HospitalIn the event this information is protected by the Federal Confidentiality of Alcohol and Drug Abuse Patient Records regulations: The Federal rules restrict any use of the information to criminally investigate or prosecute any alcohol or drug abuse patient.[facility] HospitalIn the event this information is protected by the Federal Confidentiality of Alcohol and Drug Abuse Patient Records regulations: The Federal rules restrict any use of the information to criminally investigate or prosecute any alcohol or drug abuse patient.[facility] HospitalIn the event this information is protected by the Federal Confidentiality of Alcohol and Drug Abuse Patient Records regulations: The Federal rules restrict any use of the information to criminally investigate or prosecute any alcohol or drug abuse patient.[facility] HospitalIn the event this information is protected by the Federal Confidentiality of Alcohol and Drug Abuse Patient Records regulations: The Federal rules restrict any use of the information to criminally investigate or prosecute any alcohol or drug abuse patient.[facility] HospitalIn the event this information is protected by the Federal Confidentiality of Alcohol and Drug Abuse Patient Records regulations: The Federal rules restrict any use of the information to criminally investigate or prosecute any alcohol or drug abuse patient.[facility] HospitalIn the event this information is protected by the Federal Confidentiality of Alcohol and Drug Abuse Patient Records regulations: The Federal rules restrict any use of the information to criminally investigate or prosecute any alcohol or drug abuse patient.[facility] HospitalIn the event this information is protected by the Federal Confidentiality of Alcohol and Drug Abuse Patient Records regulations: The Federal rules restrict any use of the information to criminally investigate or prosecute any alcohol or drug abuse patient.[facility] Reason for Visit (unrecogniz ed section and content) ReasonCommentsFollow UpReasonOnset DateCommentsSPP Hepatology - Medication Xuiwax1402/11/2022EpclusaReasonOnset DateCommentsCH[facility] - Medication Xootus5303/11/2022EpclusaReasonCommentsResultsReasonOnset Date[facility] - [facility]-up04/15/2022Epclusa - End of TreatmentReasonCommentsLab OrdersReasonCommentsHead and Neck CancerReasonOnset Date[facility] - Follow-up07/16/2022Epclusa treatment completeReasonCommentsHead and Neck Cancer SpecialtyDiagnoses / ProceduresReferred By ContactReferred To Contact Hematology/Oncology / HEMATOLOGY/ONCOLOGY Diagnoses Encounter for follow-up examination after completed treatment for conditions other than malignant neoplasm 1 year follow up, labs w/ CT scan Procedures OFFICE/OUTPATIENT ESTABLISHED SF MDM 10-19 MIN OFFICE/OUTPATIENT ESTABLISHED LOW MDM 20-29 MIN OFFICE/OUTPATIENT ESTABLISHED MOD MDM 30-39 MIN OFFICE/OUTPATIENT ESTABLISHED HIGH MDM 40-54 MIN EST PATIENT Wyatt Garza MD [address] [place] [address] [place] [address] Wyatt Garza MD [facility] [place] [address] Referral IDStatusReasonStart DateExpiration DateVisits RequestedVisits [id number]/1/20235/10/305970BjhuhrRwbaextlTvie and Neck Cancer1 year follow upReasonCommentsRadiology USSpecialtyDiagnoses / ProceduresReferred By ContactReferred To ContactUS IMAGING Diagnoses Abnormal LFTs Chronic hepatitis C without hepatic coma (HCC) Procedures US ABD RIGHT UPPER QUADRANT US ABDOMINAL REAL TIME W/[place] [address] [place] [address] [place] [address] Referral IDStatusReasonStdonna DateExpiration DateVisits RequestedVisits [id number] Auto-Generated Referral /[id number] and Neck Cancer3 month follow upReason CommentsRadiology CTSpecialtyDiagnoses / ProceduresReferred By ContactReferred To ContactCT IMAGING Diagnoses History of head and neck cancer Lung nodules Procedures CT CHEST W IVCON DIAGNOSTIC COMPUTED TOMOGRAPHY THORAX W/CONTRAST Wyatt Garza MD [address] [facility] [place] [address] Ct Imaging [facility] Referral IDStatusReasonStdonna DateExpiration DateVisits RequestedVisits [id number] Auto-Generated Referral /[id number] / ProceduresReferred By ContactReferred To ContactCT IMAGING Diagnoses Localized enlarged lymph nodes History of head and neck cancer Procedures CT CHEST W IVCON DIAGNOSTIC COMPUTED TOMOGRAPHY THORAX W/CONTRAST Wyatt Garza MD [address] [facility] [place] [address] Ct Imaging [facility] Referral IDStatusReasonStdonna DateExpiration DateVisits RequestedVisits [id number] Auto-Generated Referral /[id number] CTSpecialtyDiagnoses / Procedures Referred By ContactReferred To ContactCT IMAGING Diagnoses Lung nodules Procedures CT NECK SOFT TISSUE W IVCON CT SOFT TISSUE NECK W/CONTRAST MATERIAL Wyatt Garza MD [address] [facility] [place] [address] [place] [address] Referral IDStatusReasonStart DateExpiration DateVisits RequestedVisits [id number] Auto-Generated Referral [id number] / ProceduresReferred By ContactReferred To ContactCT IMAGING Diagnoses Malignant neoplasm of head, face and neck (HCC) Lung nodules Procedures CT NECK SOFT TISSUE W IVCON CT SOFT TISSUE NECK W/CONTRAST MATERIAL Wyatt Garza MD [address] [place] [address] [place] [address] Ct Imaging [place] [address] Referral IDStatusReasonStart DateExpiration DateVisits RequestedVisits [id number] Auto-Generated Referral [id number] CTSpecialtyDiagnoses / Procedures Referred By ContactReferred To ContactCT IMAGING Diagnoses Lung nodules Procedures CT CHEST W IVCON CAT SCAN OF CHEST CONTRAST Wyatt Garza MD [address] [place] [address] [place] [address] Ct Imaging [place] [address] Referral IDStatusReasonStdonna DateExpiration DateVisits RequestedVisits [id number] Auto-Generated Referral /[id number] yr cancer checkSpecialtyDiagnoses / ProceduresReferred By ContactReferred To ContactCT IMAGING Diagnoses History of head and neck cancer Lung nodules Procedures CT NECK SOFT TISSUE W IVCON CT SOFT TISSUE NECK W/CONTRAST MATERIAL Wyatt Garza MD [address] [place] [address] [place] [address] Phone: tel: fax: CT IM[facility]ING [place] [address] Referral IDStatusReasonStdonna DateExpiration DateVisits RequestedVisits [id number] Auto-Generated Referral /[id number] Up Tests ResultsLabs---->needs US, Fibroscan and OVReasonCommentsThroat ProblemThroat and ear clogged Care Teams (unrecognized sec tion and content) Team MemberRelationshipSpecialtyStart DateEnd Date Elba De La Cruz MD [address] [place] [address] PCP - GeneralFamily Practice01/04/18Team MemberRelationshipSpecialtyStart DateEnd Date Elba De La Cruz MD [address] [place] [address] PCP - GeneralFamily Practice01/04/18Team MemberRelationshipSpecialtyStart DateEnd Date Elba De La Cruz MD [address] [place] [address] PCP - GeneralFamily Practice01/04/18Team MemberRelationshipSpecialtyStart DateEnd Date Elba De La Cruz MD [address] [place] [address] PCP - GeneralFamily Practice01/04/18Team MemberRelationshipSpecialtyStart DateEnd Date Elba De La Cruz MD [address] [place] [address] PCP - GeneralFamily Medicine01/04/18Team MemberRelationshipSpecialtyStart DateEnd Date Elba De La Cruz MD [address] [place] [address] PCP - GeneralFamily Medicine01/04/18Team MemberRelationshipSpecialtyStart DateEnd Date Elba De La Cruz MD PCP - GeneralFamily Medicine01/04/18Team MemberRelationshipSpecialtyStart DateEnd Date Elba De La Cruz MD PCP - GeneralFamily Medicine2/28/18Team MemberRelationshipSpecialtyStart DateEnd Date Elba De La Cruz MD PCP - GeneralFamily Medicine01/04/18Team MemberRelationshipSpecialtyStart DateEnd Date Elba De La Cruz MD PCP - GeneralFamily Medicine01/04/18Team MemberRelationshipSpecialtyStart DateEnd Date Elba De La Cruz MD PCP - GeneralFamily Medicine01/04/18am MemberRelationshipSpecialtyStart DateEnd Date Elba De La Cruz MD PCP - GeneralFamily Medicine01/04/18Team MemberRelationshipSpecialtyStart DateEnd Date Elba De La Cruz MD PCP - GeneralFamily Medicine01/04/18am MemberRelationshipSpecialtyStart DateEnd Date Elba De La Cruz MD PCP - GeneralFamily Medicine01/04/18Team MemberRelationshipSpecialtyStart DateEnd Date Elba De La Cruz MD [address] [place] [address] PCP - GeneralFamily Medicine03/15/23am MemberRelationshipSpecialtyStart DateEnd Date Elba De La Cruz MD [address] [place] [address] PCP - GeneralFamily Medicine03/15/23Team MemberRelationshipSpecialtyStart DateEnd Date Elba De La Cruz MD [address] [facility] [place] [address] PCP - GeneralFamily Medicine03/15/23Team MemberRelationshipSpecialtyStart DateEnd Date Elba De La Cruz MD [address] [facility] [place] [address] PCP - GeneralFamily Medicine03/15/23Team MemberRelationshipSpecialtyStart DateEnd Date Elba De La Cruz MD PCP - GeneralFamily Medicine01/04/18Team MemberRelationshipSpecialtyStart DateEnd Date Elba De La Cruz MD PCP - GeneralFamily Medicine01/04/18Team MemberRelationshipSpecialtyStart DateEnd Date Elba De La Cruz MD PCP - GeneralFamily Medicine01/04/18Team MemberRelationshipSpecialtyStart DateEnd Date Elba De La Cruz MD [address] [facility] [place] [address] PCP - GeneralFamily Bnqmrres66/16/25Team MemberRelationshipSpecialtyStart Date End Date Elba De La Cruz MD [address] [facility] [place] [address] PCP - GeneralFamily Cyklikou29/16/25 FOR RECORDS PERTAINING TO PATIENTS WHO ARE [...] BE BASED ON THE PRIMARY CLINICAL RECORDS. [facility] [employer] [facility]. provides no warranty or guarantee of the accuracy or completeness of information in this document.
--- OUTSIDE RECORDS SUMMARY | 2025-09-03 09:48 | XMS_ITS | Clinical Summary ---
Author Organization [facility] Address [address] [place] [address] Care Team Providers Care Physician General Internal Medicine Name Role Phone Bird Crouch MD Primary Care Provider [phone] Allergies No known active allergies Medications MedicationSigDispense QuantityRefillsLast FilledStart DateEnd DateStatus tamsulosin (FLOMAX) 0.4 mg Take 1 capsule by mouth every afternoon.4Active levoFLOXacin (LEVAQUIN) 750 mg tablet Take 750 mg by mouth once daily.Active Active Problems ProblemNoted DateDiagnosed DateMalignant neoplasm of head, face and neck 12/18/2020ung uhtubji2412/18/20200148Qiuvoczfddkyzfct49/18/2018Mucositis due to radiation nsdreug4802/27/2018Severe protein-calorie imhiejdqythh69/23/2018 Overview (02/27/2018): 17% unintentional weight loss in one month (02/27/18) Signed by: Selam Bullard RDN, 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Hoarse voice quality Family History Medical HistoryRelationCommentsStrokeDaughterDiabetesFatherDiabetesMotherStroke MotherColon CancerNo Family HistoryRelationStatusCommentsDaughterFatherDeceased MotherDeceased Social History Tobacco UseTypesPacks/DayYears UsedDateSmoking Tobacco: Every ObbXcsmoioqlt110 Started: 03/04/1973; Last attempted to quit: 03/04/2018Smokeless Tobacco: Current Tobacco Cessation:Ready to Q uit: Not Asked; Counseling Given: Not Answered Comments:started 1971 Alcohol UseStandard Drinks/WeekCommentsYes0 (1 standard drink = 0.6 oz pure alcohol)sociallyPHQ-2AnswerDate RecordedPHQ-2 cevhf007rea Deprivation IndexAnswerDate RecordedNational Score (1-100), lower number is lower risk87 12/19/2023State Score (1-10), lower number is lower sqbf5604Data from: https://www.neighborhoodatlas.[facility]/. Last address used for abnxsysxgec[address]12/19/2023Sex and Gender InformationValueDate Recorded Sex Assigned at BirthNot on fileLegal VlzDsrx4301/04/2018 11:55 AM ESTGender IdentityNot on fileSexual OrientationNot on file Last Filed Vital Signs Vital SignReadingTime TakenCommentsBlood Myulxtpx645/8503 11:18 AM EDT tqhzbwqHewid8673/17/2025 11:15 AM AIGNbyhmsnaghz97.4 ??C (97.6 ??F)01/21/2025 11:15 AM EDTRespiratory Mfpa7849 11:15 AM EDTOxygen Zrlovyebom00% 01/21/2025 11:15 AM EDTInhaled Oxygen Concentration--Povcan30.5 kg (153 lb 3.5 oz)01/21/2025 11:15 AM BJZXaxrti253.1 cm (5' 5 )01/21/2025 11:15 AM EDTBody Mass Index25.503 11:15 AM EDT Plan of Treatment DateTypeDepartmentCare Team (Latest Contact Info)Zzcczdszdup95/09/2026 7:45 AM EDTAppointment Radiology Pet CT [address] [place] [address] CT CHEST AND NECK01/20/2026 11:40 AM EDTVisit (SP) Office Hematology/Oncology [address] [place] [address] Wyatt Vela MD [address] [place] [address] [place] [address] [address] UP AFTER CT SCANHealth MaintenanceDue DateLast DoneComments Abdominal Aortic Aneurysm Wzxyvyonq85/05/1957Anxiety Ujghobepn27/05/1975 Depression Djrvfgmol23/05/1975DTaP,Tdap,Td Vaccine (1 - Tdap)1975 Pneumococcal Vaccine: 50+ (1 of 2 - PCV)1975Lipid Fklbanhqk53/05/1992CT Sipoqpcjvpmi90/05/2002Cologuard (FIT-DNA)11/11/20013410Qosfhobozel86/05/2002 Colorectal Cancer Pbjoxaipe73/05/2002Fecal Occult Blood2001Prostate Cancer Screening Cgbncwnxyr02/05/6276Sqdmtzbomachf57/05/2002Shingrix Vaccine (1 of 2) 2006dvance Directive Mzxmbdjziw33/01/2025Medicare Advantage Annual Wellness Visit11/07/2024ovid-19 Vaccine ( - 2024- season)2025Influenza Vaccine (#1)2025Diabetes Kuszrtevu92/06/488839/04/2025, 06/22/2024, 12/16/2023, Additional history existsRSV Vaccine (1 - 1-dose 75+ series) 2031Hepatitis C HthcbwytwWevfeeqte64/22/2024, 05/24/2024, 05/22/2024, Additional history exists Procedures Procedure NamePriorityDate/TimeAssociated DiagnosisCommentsCOMPREHENSIVE METABOLIC JOPDSFkxlnlu11/06/2025 2:10 PM EST History of head and neck cancer Lung nodules HEPATITIS C VIRUS (HCV) RNA, QUANTITATIVE PCR, PLASMA/XICTCKvuukpo99/16/2024 9:58 AM EDT Abnormal LFTs Chronic hepatitis C without hepatic coma (HCC) from Last 3 Months or Most Recently Relevant to Health Maintenance Results * (ABNORMAL) COMPREHENSIVE METABOLIC PANEL (01/10/2025 2:10 PM EST)Component ValueRef RangeTest MethodAnalysis TimePerformed AtPathologist Signature Protein, Total6.86.3 - 8.0 g/dL01/10/2025 2:43 PM ESTNOR[facility] LABAlbumin4.43.9 - 4.9 g/dL01/10/2025 2:43 PM ESTNORTINSIGHT [facility] LABCalcium, Total9.68.5 - 10.2 mg/dL01/10/2025 2:43 PM [facility] LABBilirubin, Total0.60.2 - 1.3 mg/dL 01/10/2025 2:43 PM [facility] LABAlkaline Qjacsgzmdgr1150 - 113 U/L01/10/2025 2:43 PM [facility] LQDWXY1768 - 40 U/L01/10/2025 2:43 PM [facility] LABALT8(L)10 - 54 U/L01/10/2025 2:43 PM [facility] TMOCgkcjtg512(H)74 - 99 mg/dL01/10/2025 2:43 PM [facility] LABComment: The [place] Diabetes Association (ADA) provides guidance for cutoff [...] Standards of Medical Care in Diabetes 2016, [place] [employer] Association. Diabetes Care. 2016.39(Suppl 1). BUN99 - 24 mg/dL01/10/2025 2:43 PM [facility] Creatinine0.68(L)0.73 - 1.22 mg/dL01/10/2025 2:43 PM [facility] EKWDnczta204991 - 144 mmol/L01/10/2025 2:43 PM [facility] LABPotassium3.73.7 - 5.1 mmol/L01/10/2025 2:43 PM EST [facility] GOPYmwugtdm44964 - 107 mmol/L01/10/2025 2:43 PM [facility] MSCXJ67127 - 30 mmol/L01/10/2025 2:43 PM [facility] LABAnion Frh689 - 15 mmol/L01/10/2025 2:43 PM [facility] LABEstimated Glomerular Filtration Rate 101>=60 mL/min/1.73m 01/10/2025 2:43 PM [facility] LABComment:Estimated Glomerular Filtration Rate (eGFR) is [...] VolumeCollection TimeReceived TimeBloodBLOOD SPECIMEN / UnknownVenipuncture / Rbuobzf9401/10/2025 2:10 PM EST01/10/2025 2:20 PM EST Narrative Authorizing ProviderResult TypeResult StatusViveberenice Vela MDLABORATORYFinal ResultPerforming OrganizationAddressCity/State/ZIP CodePhone Number [facility] [address] [place] [phone] * HEPATITIS C RNA QUANTIFICATION BY PCR, PLASMA/SERUM (05/22/2024 9:58 AM EDT) ComponentValueRef RangeTest MethodAnalysis TimePerformed AtPathologist SignatureHCV RNAHCV RNA not detected by PCR.HCV RNA not detected by PCR. TOY OSCAR 6800 05/23/2024 2:59 AM EDTCCHILLICOTHE HOSPITAL LABSpecimen (Source) Anatomical Location / LateralityCollection Method / VolumeCollection Time Received TimeBloodBLOOD SPECIMEN / UnknownVenipuncture / Rmjjows2105/22/2024 9:58 AM EDT05/22/2024 9:58 AM EDT Narrative [facility] - 05/23/2024 2:59 AM EDT The Linear Range of this assay is 15 IU/ml to 100,000,000 IU/ml Authorizing ProviderResult TypeResult StatusNosilvino Quintero MDLABORATORYFinal Result Performing OrganizationAddressCity/State/ZIP CodePhone Number [facility] [address] [facility] [address] [place] [address], from Last 3 Months or Most Recently Relevant to Health Maintenance Insurance Care Teams Team MemberRelationshipSpecialtyStart DateEnd Bird Crouch MD PCP - GeneralFamily Medicine01/04/18
--- OUTSIDE RECORDS SUMMARY | 2025-09-03 09:48 | XMS_ITS ---
Author Organization [facility] Address [address] [place], [place] [address] Care Team Providers Care Charge Out Clerk Name Role Phone Bird Crouch MD Primary Care Provider [phone] Active Problems ProblemNoted DateDiagnosed DateMalignant neoplasm of head, face and neck 1Lung rdydzpy6012/18/20200475Qrqpjtfxuzircpjc44/18/2018Mucositis due to radiation zrbfpoy3902/27/2018Severe protein-calorie lnkzeauajohr39/23/2018 Overview (02/27/2018): 17% unintentional weight loss in [...]
--- OUTSIDE RECORDS SUMMARY | 2025-09-03 09:48 | XMS_ITS | Clinical Summary ---
Author Organization [facility] Address [address] [place] [address] Care Team Providers Care Eeg Technologist Name Role Phone Bird Crouch MD Primary Care Provider [phone] Allergies [...] Active Problems ProblemNoted DateDiagnosed DateAlcohol abuse08/28/2025lcoholic polyneuropathy 08/28/20259787Jlyospnrdl92/22/2025rthropathy associated with neurological disorder 08/28/2025hronic hepatitis 08/28/2025losed fracture of ankle08/28/2025losed fracture of distal end of right iybhxc9208/28/2025losed fracture of upper end of iofblm6208/28/2025OPD (chronic obstructive pulmonary disease)08/28/2025 Overview (08/28/2025): COPD UNSPECIFIED.This condition was first identified on :2025-07-17 ,Rendering provider NPI :[id number] Vhnfyqmx51/22/1288Qbbebmyjb64/22/2025Erectile chfugtbmojy39/22/2025Facial /22/0107Ybxvmtmxxvx37/22/2025Opioid abuse08/28/2025 Overview (08/28/2025): OPIOID ABUSE UNCOMPLICATED ,Rendering provider NPI :[id number] Najornntipok29/22/2025Poisoning by unspecified narcotics, accidental (unintentional), initial bfynrbvwu55/22/2025 Overview (08/28/2025): POISON UNS NARCOTIC ACC INITIAL ENC.This condition was first identified on :2024-02-24 Recurrent falls08/28/2025Solitary pulmonary lwsbov3108/28/2025Unsteady gait 08/28/2025losed right maxillary skziuuot48/13/2023enign prostatic hyperplasia without urinary tbmhmetspbf38/15/2023urrent obztry1506/21/2023Hoarse voice dkydeop4606/21/20237605Oahrijttdzhc16/11/2023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/ Overview (06/21/2023): Diagnosed 12/27/17. T4a N1 Mo SCCA right tongue base. Radiation completed. Tongue dhftyw6603/17/2023orphyria cutanea tarda03/17/2023Lung gdyjvab6712/18/2020 Malignant neoplasm of head, face and neck12/18/20207259Zxaziyxwpigiwfzc94/18/2018 Mucositis due to radiation smjimyo5702/27/2018Severe protein-calorie malnutrition (HHS-HCC)02/27/2018 Overview (06/21/2023): 17% unintentional weight loss in one month (02/27/18) Signed by: Selam Bullard RDN, LD [phone] Resolved Problems ProblemNoted DateDiagnosed DateResolved DateHistory of tongue jddnss3706/21/2023 06/21/20237661Qvsapdme52 Encounters DateTypeDepartmentCare QkbgVonsmqplznp08/22/2025 11:20 AM EDTOffice Visit [facility] [place] [facility] [address] [facility] [address] [place] [address] Kelly Pulliam MD Non-seasonal allergic rhinitis due to other allergic trigger (Primary Dx); Chronic sinusitis, unspecified location; Tongue cancer (HCC); Bilateral impacted cerumen; Chronic pansinusitis; Chronic maxillary euxtpltox04/22/2025amboo flowsheet [facility] [address] [facility] [address] [place] [address] Kelly Pulliam MD 08/28/2025Travelfrom Last 3 Months Family History Medical HistoryRelationNameCommentsStrokeDaughterDiabetesFatherDiabetesMother StrokeMotherMelanomaNeg HxRelationNameStatusCommentsDaughterAliveFatherDeceased MotherDeceased Social History Tobacco UseTypesPacks/DayYears UsedDateSmoking Tobacco: Every DayCigarettes0.5 53.8Started: 1972Smokeless Tobacco: Never Tobacco Cessation:Ready to Q uit: Not Asked; Counseling Given: Not Answered Comments:Smokes 6-10 cigarettes/day Alcohol UseStandard Drinks/WeekCommentsYes8 (1 standard drink = 0.6 oz pure alcohol)Caffeine >4 cups/daySex and Gender InformationValueDate RecordedSex Assigned at BirthNot on fileLegal RkhRrgs8701/19/2023 8:14 PM EDTGender Identity Not on fileSexual OrientationNot on file Last Filed Vital Signs Vital SignReadingTime TakenCommentsBlood Wbjvhjsl421/9809/ 8:53 AM EDT Pulse--Temperature--Respiratory Rate--Oxygen Saturation--Inhaled Oxygen Concentration--Jfnxjl06.9 kg (143 lb)08/28/2025 11:16 AM VAQHtpmuq417.1 cm (5' 5 )08/28/2025 11:16 AM EDTBody Mass Index23.81 11:16 AM EDT Plan of Treatment DateTypeDepartmentCare Team (Latest Contact Info)Vtlzuzvahoo51/01/2025 11:20 AM ESTOffice Visit [facility] [place] [facility] [address] [facility] [address] [place] [address] Kelly Pulliam MD [address] [facility] [address] [place] [address] 08/27/2026 11:20 AM EDTOffice Visit [facility] [place] [facility] [address] [facility] [address] [place] [phone] Kelly Pulliam MD [address] [facility] [address] [place] [address] Insurance Care Teams Team MemberRelationshipSpecialtyStart DateEnd Bird Crouch MD [address] [place] [address] PCP - GeneralFamily Ctyhneuj38/16/25
--- OUTSIDE RECORDS SUMMARY | 2025-09-03 09:48 | XMS_ITS | Encounter Summary ---
Author Organization [facility] Address [address] [place] [address] Care Team Providers Care Air Value Tester Name Role Phone Bird Crouch MD Primary Care Provider [phone] Encounter Details DateTypeDepartmentCare Team (Latest Contact Info)Kkjbsxmerui89/22/2025Travel Social History Tobacco UseTypesPacks/DayYears UsedDateSmoking Tobacco: Every DayCigarettes0.5 53.8Started: 1972Smokeless Tobacco: Never Comments:Smokes 6-10 cigaret yoko/day Alcohol UseStandard Drinks/WeekCommentsYes8 (1 standard drink = 0.6 oz pure alcohol)Caffeine >4 cups/daySex and Gender InformationValueDate RecordedSex Assigned at BirthNot on fileLegal VfsZyiy9601/19/2023 8:14 PM EDTGender Identity Not on fileSexual OrientationNot on filedocumented as of this encounter Plan of Treatment DateTypeDepartmentCare Team (Latest Contact Info)Kuoghufagns82/01/2025 11:20 AM ESTOffice Visit [facility] [place] [facility] [address] [facility] [address] [place] [phone] Kelly Pulliam MD [address] [facility] [address] [place] [address] 08/27/2026 11:20 AM EDTOffice Visit [facility] [place] [facility] [address] [facility] [address] [place] [address] Kelly Pulliam MD [address] [facility] [address] [place] [address] documented as of this encounter Visit Diagnoses Not on filedocumented in this encounter Care Teams Team MemberRelationshipSpecialtyStart DateEnd Date Bird Crouch MD [address] [place] [address] PCP - GeneralFamily Cglijugz69/16/25documented as of this encounter
--- OUTSIDE RECORDS SUMMARY | 2025-09-03 09:48 | XMS_ITS | Encounter Summary ---
Author Organization [facility] Address [address] [place] [address] Care Team Providers Care Attendance Secretary Name Role Phone Bird Crouch MD Primary Care Provider [phone] Encounter Details DateTypeDepartmentCare Team (Latest Contact Info)Aajwijtkcsw35/22/2025amboo flowsheet [facility] [place] [facility] [address] [facility] [address] [place] [address] Kelly Pulliam MD [address] [facility] [address] [place], [place] [phone] Social History Tobacco UseTypesPacks/DayYears UsedDateSmoking Tobacco: Every DayCigarettes0.5 53.8Started: 1972Smokeless Tobacco: Never Comments:Smokes 6-10 cigaret yoko/day Alcohol UseStandard Drinks/WeekCommentsYes8 (1 standard drink = 0.6 oz pure alcohol)Caffeine >4 cups/daySex and Gender InformationValueDate RecordedSex Assigned at BirthNot on fileLegal BxyOxhz1301/19/2023 8:14 PM EDTGender Identity Not on fileSexual OrientationNot on filedocumented as of this encounter Plan of Treatment DateTypeDepartmentCare Team (Latest Contact Info)Zjyyjdvpjgo00/01/2025 11:20 AM ESTOffice Visit [facility] [place] [facility] [address] [facility] [address] [place] [address] Kelly Pulliam MD [address] [facility] [address] [place], [place] [address] 08/27/2026 11:20 AM EDTOffice Visit [facility] [place] [facility] [address] [facility] [address] [place] [address] Kelly Pulliam MD [address] [facility] [address] [place] [address] documented as of this encounter Visit Diagnoses Not on filedocumented in this encounter Care Teams Team MemberRelationshipSpecialtyStart DateEnd Date Bird Crouch MD [address] [place] [address] PCP - GeneralFamily Bkbipbkm57/16/25documented as of this encounter
--- OUTSIDE RECORDS SUMMARY | 2025-09-04 06:58 | XMS_ITS | Clinical Summary ---
Author Organization [facility] Address [address] [place] [address] Care Team Providers Care Clinical Research Nurse Name Role Phone Bird Crouch MD Primary [...] Active Problems ProblemNoted DateDiagnosed DateAlcohol abuse08/28/2025lcoholic polyneuropathy 08/28/20254145Xgqbqbjild48/22/2025rthropathy associated with neurological disorder 08/28/2025hronic hepatitis 08/28/2025losed fracture of ankle08/28/2025losed fracture of distal end of right oygkqk5808/28/2025losed fracture of upper end of qkoglc5908/28/2025OPD (chronic obstructive pulmonary disease)08/28/2025 Overview (08/28/2025): COPD UNSPECIFIED.This condition was first identified on :2025-07-17 ,Rendering provider NPI :[id number] Mxijqnab37/22/7877Frstcwvru21/22/2025Erectile srjexfuaxoz77/22/2025Facial hximzlaa52/22/4002Rckpirkyguv05/22/2025Opioid abuse08/28/2025 Overview (08/28/2025): OPIOID ABUSE UNCOMPLICATED ,Rendering provider NPI :[id number] Motbpdwbhdrw25/22/2025Poisoning by unspecified narcotics, accidental (unintentional), initial yhqvfosxd90/22/2025 Overview (08/28/2025): POISON UNS NARCOTIC ACC INITIAL ENC.This condition was first identified on :2024-02-24 Recurrent falls08/28/2025Solitary pulmonary rdwomk7908/28/2025Unsteady gait 08/28/2025losed right maxillary ezczdygo73/13/2023enign prostatic hyperplasia without urinary kuxywwkxrub92/15/2023urrent fnants6806/21/2023Hoarse voice vyodyey3606/21/20238776Aaffcllgynql73/11/2023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/ Overview (06/21/2023): Diagnosed 12/27/17. T4a N1 Mo SCCA right tongue base. Radiation completed. Tongue ccpedg8103/17/2023orphyria cutanea tarda03/17/2023Lung fcpbvcm9612/18/2020 Malignant neoplasm of head, face and neck12/18/20207642Dtgjgmyimfzjefnp33/18/2018 Mucositis due to radiation blxludv0902/27/2018Severe protein-calorie malnutrition (HHS-HCC)02/27/2018 Overview (06/21/2023): 17% unintentional weight loss in one month (02/27/18) Signed by: Selam Bullard RDN, LD [phone] Resolved Problems ProblemNoted DateDiagnosed DateResolved DateHistory of tongue fzchec2506/21/2023 06/21/20237221Blwjrftd40 Encounters DateTypeDepartmentCare BqemUclmuczbwog90/22/2025 11:20 AM EDTOffice Visit [facility] [place] [facility] [address] [facility] [address] [place] [address] Kelly Pulliam MD Non-seasonal allergic rhinitis due to other allergic trigger (Primary Dx); Chronic sinusitis, unspecified location; Tongue cancer (HCC); Bilateral impacted cerumen; Chronic pansinusitis; Chronic maxillary zckomznuk80/22/2025amboo flowsheet [facility] [address] [facility] [address] [place] [address] Kelly Pulliam MD 08/28/2025Travelfrom Last 3 Months Family History Medical HistoryRelationNameCommentsStrokeDaughterDiabetesFatherDiabetesMother StrokeMotherMelanomaNeg HxRelationNameStatusCommentsDaughterAliveFatherDeceased MotherDeceased Social History Tobacco UseTypesPacks/DayYears UsedDateSmoking Tobacco: Every DayCigarettes0.5 53.8Started: 1972Smokeless Tobacco: Never Tobacco Cessation:Ready to Q uit: Not Asked; Counseling Given: Not Answered Comments:Smokes 6-10 cigarettes/day Alcohol UseStandard Drinks/WeekCommentsYes8 (1 standard drink = 0.6 oz pure alcohol)Caffeine >4 cups/daySex and Gender InformationValueDate RecordedSex Assigned at BirthNot on fileLegal MgpMokj6101/19/2023 8:14 PM EDTGender Identity Not on fileSexual OrientationNot on file Last Filed Vital Signs Vital SignReadingTime TakenCommentsBlood Rvnrwtum155/9809/ 8:53 AM EDT Pulse--Temperature--Respiratory Rate--Oxygen Saturation--Inhaled Oxygen Concentration--Ymxlum68.9 kg (143 lb)08/28/2025 11:16 AM PAVEvqiqn735.1 cm (5' 5 )08/28/2025 11:16 AM EDTBody Mass Index23.81 11:16 AM EDT Plan of Treatment DateTypeDepartmentCare Team (Latest Contact Info)Mmyrzkaytls43/01/2025 11:20 AM ESTOffice Visit [facility] [place] [facility] [address] [facility] [address] [place] [address] Kelly Pulliam MD [address] [facility] [address] [place] [address] 08/27/2026 11:20 AM EDTOffice Visit [facility] [place] [facility] [address] [facility] [address] [place] [phone] Kelly Pulliam MD [address] [facility] [address] [place] [address] Insurance Care Teams Team MemberRelationshipSpecialtyStart DateEnd Bird Crouch MD [address] [place] [address] PCP - GeneralFamily Jzlaaxgx33/16/25
--- OUTSIDE RECORDS SUMMARY | 2025-09-04 06:58 | XMS_ITS ---
Author Organization [facility] Address [address] [place], [place] [address] Care Team Providers Care Soldering Machine Setter Name Role Phone Bird Crouch MD Primary Care Provider [phone] Active Problems ProblemNoted DateDiagnosed DateMalignant neoplasm of head, face and neck 1Lung ewyfiuz8312/18/20208139Vxnavrskhovgoziw84/18/2018Mucositis due to radiation vssvizj3202/27/2018Severe protein-calorie dkfahwsumada41/23/2018 Overview (02/27/2018): 17% unintentional weight loss in [...]
--- OUTSIDE RECORDS SUMMARY | 2025-09-04 06:58 | XMS_ITS | CCD ---
Author Organization [facility] CliniSynh Care Team Providers Care Reporting Specialist Name Role Phone Elba De La Cruz Primary Care Unavailable Jen Qureshi Admitting Unavailable Jen Qureshi Attending Unavailable Elba De LaC ruz MD Primary Care Provider Elba De La Cruz Primary Care Physician Elba De La Cruz MD Primary Care Provider Elba De La Cruz MD Primary Care Provider Elba De La Cruz MD Primary Care Provider [phone] DOROTHY ., DR ARREOLA Primary Care [...] De La Cruz MD Primary Care Provider [phone] ABRAM FIORE Attending Unavailable Medications Current Medications [...] 100 mg oral tablet (2 sources)Azole AntifungalStart: 32-86-9499Ndcgokbx 100 MG tablet 1 (one) time each day at the same time 08/21/2025 Activeiv contrast (will be provided with radiology test) (9 sources)Start: 01-21-2025 End: 31-38-1664ubmqur 1 dose intravenously once, then inject 1 [...] 1 Each 01/21/2025 01/21/2025 ActiveStart: 01-21-2025 End: 35-91-8210pm contrast (will be provided with radiology test) [...] 1 Each 01/21/2025 01/22/2025 ActiveStart: 06-29-2024 End: 04-36-7773xjkwkj 1 dose intravenously once, then inject 1 [...] 1 Each 06/29/2024 06/29/2024 ExpiredStart: 06-29-2024 End: 26-68-1480id contrast (will be provided with radiology test) [...] 1 Each 06/29/2024 06/30/2024 ExpiredStart: 03-30-2024 End: 69-65-5953lb contrast (will be provided with radiology test) [...] Each 0 03/30/2024 03/31/2024 ExpiredStart: 12-19-2023 End: 03-29-3787lh contrast (will be provided with radiology test) [...] Each 0 12/19/2023 12/20/2023 ActiveStart: 12-16-2022 End: 26-45-2038ll contrast (will be provided with radiology test) [...] Each 0 12/16/2022 12/17/2022 ActiveStart: 12-16-2022 End: 37-94-5438xbevkv 1 dose intravenously once, then inject 1 [...] 1 capsule by mouth in the morning. Mzcude43 hr nicotine 0.875 mg/hr transdermal system (10 [...] ActivepredniSONE 10 mg oral tablet (2 sources)Start: 33-30-5764tvspjcCILP (Deltasone) 10 MG tablet 5 TABS DAILY X3 DAYS, 4 TABS X3 DAYS, 3 TABS X3 DAYS, 2 TABS X3DAYS, 1 TAB X3 DAYS, 1/2 TAB X4 DAYS 07/23/2025 Activesofosbuvir 400 mg / velpatasvir 100 mg oral tablet (5 sources)Hepatitis C Virus NS5A Inhibitor, Hepatitis C Virus Nucleotide Analog NS5B Polymerase InhibitorStart: 12-30-2021 End: 18-19-6629hbgw 1 tablet by mouth once dailyEpclusa 400 mg-100 mg oral tablet tab(s), Oral, Daily, Refills(s) 0 Start Date: 04/06/22 Status: Ordered Comment on above:Take 1 tablet by mouth once daily.tamsulosin hydrochloride 0.4 mg oral capsule (14 sources)alpha-Adrenergic BlockerStart: 85-81-5175gipi 1 capsule by mouth oncetamsulosin (FLOMAX) 0.4 [...] (6 sources)Alcohol abuse; Translations: [Alcohol abuse, uncomplicated]Onset: 361664-70-9519XewbbywRccweh of head and neck (20 sources)Malignant tumor of head and neck; Translations: [Malignant neoplasm of head, face and neck]Onset: 759591-64-7956GxdrfbpMuahhb; other and unspecified primary (10 sources)History of malignant neoplasm of head and/or neck; Translations: [Personal history of malignant neoplasm of other organs and systems]12-19-2023 EpisodicChronic obstructive pulmonary disease and bronchiectasis (2 sources)Chronic obstructive lung disease; Translations: [Chronic obstructive pulmonary disease, unspecified]Onset: 369157-59-3271HnhgthsTgkkbbyyel and other anemia (1 source)Deficiency and other anemia; Translations: [D64.9 - Anemia, unspecified]Onset: 86-38-2358Hhoprkgw of white blood cells (2 sources)Leukocytosis; Translations: [Elevated white blood cell count, unspecified]Onset: 854005-18-5192WzszcwrIustiedvx hypertension (10 sources)Hypertensive disorder; Translations: [Essential (primary) hypertension]Onset: 636493-73-7785TbaqrgmKvxclsyn of lower limb (7 sources)Other fracture of upper and lower end of right fibula, initial encounter for closed fracture; Translations: [Closed fracture of ankle]Onset: 213125-44-0172KkvwrgsoPoveyddtf (8 sources)Chronic hepatitis C; Translations: [Chronic viral hepatitis C]Onset: 72-66-7723WuvlolpFhevfbzozpf of prostate (12 sources)Benign prostatic hypertrophy without outflow obstruction; Translations: [Benign prostatic hyperplasia without lower urinary tract symptoms]Onset: 50-67-7757JuyrfixJvnjmihrqqcdd and screening for infectious disease (1 source)Hepatitis C antibody test positive; Translations: [Other specified abnormal immunological findings in serum]EpisodicNutritional deficiencies (20 sources)Deficiency of macronutrients; Translations: [Unspecified severe protein-calorie malnutrition]Onset: 482195-32-2812LbuvzjsAbbgu connective tissue disease (2 sources)Recurrent falls ; Translations: [Repeated falls]Onset: 08-28-2025 19-09-5822ApsxzgfwFttgv ear and sense organ disorders (2 sources)Sensorineural hearing loss, bilateral; Translations: [Sensorineural hearing loss, bilateral]00-19-7059HalbtgoQyfzl ear and sense organ disorders (2 sources)Impacted cerumen of bilateral ears; Translations: [Impacted cerumen, bilateral]84-53-5653AqglzhbpUgikl gastrointestinal disorders (2 sources)Diarrhea; Translations: [Diarrhea, unspecified]Onset: 08-28-2025 90-55-5211GhwoysgxJpfkl gastrointestinal disorders (2 sources)Dysphagia; Translations: [Dysphagia, unspecified]Onset: 08-28-2025 47-85-3040ZhmqdqlsEwfhr gastrointestinal disorders (2 sources)Swallowing painful; Translations: [Dysphagia, unspecified]Onset: 656504-31-3829AysalgcgWroqy hematologic conditions (20 sources)Myelosuppression; Translations: [Other specified diseases of blood and blood-forming organs]Onset: 708752-18-3136AlyfhjpKyezv injuries and conditions due to external causes (2 sources)Radiation injury; Translations: [Radiation sickness, unspecified, sequela]EpisodicOther liver diseases (2 sources)Steatosis of liver; Translations: [Fatty (change of) liver, not elsewhere classified]13-76-4178GfwwfafSmyoy lower respiratory disease (2 sources)Solitary nodule of lung; Translations: [Solitary pulmonary nodule] Onset: 901094-95-0643LrbzapxjXruzv male genital disorders (2 sources)Male erectile dysfunction, unspecified; Translations: [Impotence of organic origin]Onset: 853462-72-8129LytnmabShsnc nervous system disorders (2 sources)Abnormal gait; Translations: [Unsteadiness on feet]Onset: 08-28-2025 20-71-7334HnbyytloSbter non-traumatic joint disorders (2 sources)Arthropathy associated with a neurological disorder; 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, unspecified site]Onset: 976725-44-6301XobwmfoNegnw non- traumatic joint disorders (4 sources)Pain in right ankle and joints of right foot; Translations: [PAIN IN RIGHT ANKLE]Onset: 82-50-1568PyrdsdsbUussz nutritional; endocrine; and metabolic disorders (10 sources)Porphyria cutanea tarda; 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] Onset: 515204-57-2685MxqpybiRhnfi upper respiratory disease (2 sources)Allergic rhinitis; Translations: [Other allergic rhinitis]08-28-2025 ChronicOther upper respiratory infections (2 sources)Chronic sinusitis; Translations: [Chronic sinusitis, unspecified] 15-96-6120HfasccbBqbmjlbit by other medications and drugs (20 sources)Mucositis following radiation therapy; Translations: [Oral mucositis (ulcerative) due to radiation]Onset: 267234-18-5885AvvtxxkkVdkayupfv malignancies (20 sources)Metastatic squamous cell carcinoma; Translations: [Secondary malignant neoplasm of other specified sites]Onset: 937548-00-1953Qbohytd Skull and face fractures (12 sources)Closed fracture of right maxilla; Translations: [Maxillary fracture, right side, initial encounter for closed fracture]Onset: 351418-56-9270 EpisodicSubstance-related disorders (13 sources)Smoker; Translations: [Nicotine dependence, unspecified, uncomplicated]Onset: 038275-66-5577TadyxreShibpqv disorders (2 sources)Disorder of thyroid gland; Translations: [Disorder of thyroid, unspecified]Episodic Past or Other Problems Problem ClassificationProblemDateDocumented DateEpisodic/ChronicCancer of head and neck (11 sources)History of malignant neoplasm of tongue; Translations: [Personal history of malignant neoplasm of tongue]Onset: 06-21-2023 Resolved: 600162-55-4542PccnzethSbxpls; other and unspecified primary (1 source)Personal history of malignant neoplasm of other organs and systems; Translations: [History of head and neck cancer]Onset: 75-21-4392Fmwakndp Genitourinary symptoms and ill-defined conditions (13 sources)Nocturia; Translations: [Nocturia]Onset: 04-06-2022 Resolved: 84-28-5702SkxlqjawFpoeezpillhng (3 sources)Localized enlarged lymph nodes; Translations: [Localized enlarged lymph nodes]Onset: 077726-42-6475GclvniswMascy lower respiratory disease (20 sources)Multiple nodules of lung; Translations: [Other nonspecific abnormal finding of lung field]Onset: 745850-17-0291ZkikpbmqMgoap lower respiratory disease (1 source)Other nonspecific abnormal finding of lung field; Translations: [Lung nodules]Onset: 92-63-9609UztbttdqGqwim screening for suspected conditions (not mental disorders or infectious disease) (3 sources)Liver function tests abnormal; Translations: [Other specified abnormal findings of blood chemistry]Onset: 372638-55-0926ArudrtisXbtva upper respiratory disease (20 sources)Hoarse; Translations: [Dysphonia]Onset: 570952-63-4278Wamzjlax Results Test NameValueInterpretationReference RangeFacilityCNOVSPon 24-73-7415BMXTWS Visit (SP) Office (HE[place]AS[place]) CARSON MORSE ([id number]) 1955 M Date Time Provider Department 01/21/25 [...] AM Signed NAME: Carson Morse CLINIC NO.: [id number] DATE OF SERVICE: January 21, 2025 (Mirian) [...] - CT N/Chest: Bilater (more content not included)...NormalMckitrick HospitalCNPNon 73-22-0333URUDGbmgltymw ([place]ST[place]) CARSON MORSE ([id number]) 1955 Date Time Provider Department 01/18/25 HALIMA NIXON During your visit today, we recorded the following information about you: Mary Villarreal RN 01/18/2025 10:53 AM Signed Pt notified of results and recommendations and verbalized understanding. Schedulers, please call pt to schedule US, Fibroscan and OV. Orders are already placed. Thank you, NOLAN Meeks Noma, MD [facility] Nurse Pool Normal AFP Patient is overdue [...] 12/18/2020 Encounter Status:Closed by IVETTE LALA on 01/18/25NormalCFirelands Regional Medical Center SerPl-mCncon 98-42-3966JWS [Mass/Vol]4.54 ng/mLNormal<9.00Mckitrick HospitalComment on above:Order Comment: Specimen Type: BLOOD SPECIMENOrdering Facility: [facility] Address:[address] [place], [place] [address]Result Comment: The Alpha-Fetoprotein test was performed using the Uam Unicel DxI immunoenzymatic assay. Results obtained with different assay methods or kits cannot be used interchangeably.Performed By: #### 1834-1 ####[facility] LABCLIA [id number] [address] Auto Differential panel (Bld)on 28-68-7484Hfgelgbmq (Bld) [#/Vol]0.09 10*3/uLNINFSelect Medical [facility]ty [facility] Basophils/100 WBC (Bld)1.9 %[facility] SouthDifferential cell count method Nom (Bld)AutoCleveland ClinicEosinophils (Bld) [#/Vol]0.11 10*3/uLNINFSelect Medical Specialty Hospital - [facility] SouthEosinophils/100 WBC (Bld)2.4 %[facility] SouthErythrocyte distribution width (RBC) [Ratio]12.2 %11.5 - 15.0 %[facility] SouthHematocrit (Bld) [Volume fraction]31.6 %Low39.0 - 51.0 %[facility] SouthHemoglobin (Bld) [Mass/Vol]10.6 g/dLLow13.0 - 17.0 g/dLSelect Medical Specialty Hospital - [facility] SouthImmature granulocytes (Bld) [#/Vol]NINF [facility] SouthImmature granulocytes/100 WBC (Bld)0.4 %[facility] Interpretation and review of laboratory resultsAbnormalCLicking Memorial Hospital Lymphocytes (Bld) [#/Vol]0.96 10*3/uLLowSelect Medical Specialty Hospital - Columbus SouthLymphocytes/100 WBC (Bld)20.7 %[facility] CenterH (RBC) [Entitic mass]33.9 pg26.0 - 34.0 pg [facility] Medical CenterHC (RBC) [Mass/Vol]33.5 g/dL30.5 - 36.0 g/dLSelect Medical Specialty Hospital [facility] MCV (RBC) [Entitic vol]101 iTGkfm41.0 - 100.0 fLCleveland ClinicMonocytes (Bld) [#/Vol]0.38 10*3/uLNINFSelect Medical Specialty Hospital [facility] SouthMonocytes/100 WBC (Bld)8.2 %[facility] SouthNeutrophils (Bld) [#/Vol]3.08 10*3/[facility] EastNeutrophils/100 WBC (Bld)66.4 %[facility] SouthNucleated RBC (Bld) [#/Vol]NINFCLicking Memorial Hospital Nucleated RBC/100 WBC (Bld) [Ratio]0 %/100 WBCSelect Medical Specialty Hospital - Columbus SouthPlatelet mean volume (Bld) [Entitic vol]9.4 fL9.0 - 12.7 fLCLicking Memorial HospitalPlatelets (Bld) [#/Vol]209 10*3/uLSelect Medical Specialty Hospital - [facility] SouthRBC (Bld) [#/Vol]3.13 10*6/uLLow4.20 - 6.00 m/[facility] Cleveland EastWBC (Bld) [#/Vol]4.64 10*3/uLRegency Hospital Cleveland East ClinicBasophils (Bld) [#/Vol]0.09 10*3/uLNormal<0.11CWyandot Memorial Hospital Comment on above:Order Comment: Specimen Type: BLOOD SPECIMENOrdering Facility: [facility] Address:[address] [place] [address] Performed By: #### 92305-2 ####[facility] CENTERIA [id number] [place], [place] [address]Lmsljoliv/100 WBC (Bld)1.9 % NormalMckitrick HospitalComment on above:Order Comment: Specimen Type: BLOOD SPECIMENOrdering Facility: [facility] Address:[address] [place], [place] [address]Performed By: #### 09790-4 ####[facility] LABIA [id number] [place] [address] Differential cell count method Nom (Bld)AutoNormalCWyandot Memorial Hospital Comment on above:Order Comment: Specimen Type: BLOOD SPECIMENOrdering Facility: [facility] Address:[address] [place] [address] Performed By: #### 61031-1 ####[facility] LABIA [id number] [place], [place] [address]Btvzselrksb (Bld) [#/Vol]0.11 10*3/uLNormal<0.46[facility] on above:Order Comment: Specimen Type: BLOOD SPECIMENOrdering Facility: [facility] Address:[address] [place], [place] [address]Performed By: #### 81136-1 ####[facility] LABCLIA [id number] [place], [place] [address]Smeylkoyzsn/100 WBC (Bld)2.4 %NormalRegional Medical Center on above:Order Comment: Specimen Type: BLOOD SPECIMENOrdering Facility: [facility] Address:[address] [place], [place] [address]Performed By: #### 30711-6 ####[facility] LABIA [id number] [place], [place] [address]Yxhobnnmtny distribution width (RBC) [Ratio]12.2 %Hesaft06.5-15.0[facility] on above: Order Comment: Specimen Type: BLOOD SPECIMENOrdering Facility: [facility] Address:[address] [place], [place] [address]Performed By: #### 44861- 8 ####[facility] LABCLIA [id number] [place], [place] [address]Xhxhlvusot (Bld) [Volume fraction]31.6 %Low39.0-51.0 [facility] on above:Order Comment: Specimen Type: BLOOD SPECIMENOrdering Facility: [facility] Address:[address] [place], [place] [address]Performed By: #### 33272-9 ####[facility] LABIA [id number] [place], [place] [address]Dhcrdcbcjf (Bld) [Mass/Vol]10.6 g/dLLow13.0-17.0[facility] on above:Order Comment: Specimen Type: BLOOD SPECIMENOrdering Facility: [facility] Address:[address] [place], [place] [address]Performed By: #### 26425- 8 ####[facility] LABCLIA [id number] [place], [place] [address]Qjqmemur granulocytes (Bld) [#/Vol]10*3/uLNormal<0.10 [facility] on above:Order Comment: Specimen Type: BLOOD SPECIMENOrdering Facility: [facility] Address:[address] [place], [place] [address]Performed By: #### 45799-5 ####[facility] LABCLIA [id number] [place], [place] [address]Ntfvqkhg granulocytes/100 WBC (Bld)0.4 %NormalRegional Medical Center on above: Order Comment: Specimen Type: BLOOD SPECIMENOrdering Facility: [facility] Address:[address] [place], [place] [address]Performed By: #### 89526- 8 ####[facility] LABCLIA [id number] [place], [place] [address]Xsebtvejmiz (Bld) [#/Vol]0.96 10*3/uLLow1.00-4.00 [facility] on above:Order Comment: Specimen Type: BLOOD SPECIMENOrdering Facility: [facility] Address:[address] [place], [place] [address]Performed By: #### 67502-1 ####[facility] LABCLIA [id number] [place], [place] [address]Uuyyzgdzbqx/100 WBC (Bld)20.7 %NormalRegional Medical Center on above:Order Comment: Specimen Type: BLOOD SPECIMENOrdering Facility: [facility] Address:[address] [place], [place] [address]Performed By: #### 64494-0 ####[facility] LABCLIA [id number] [place], [place] [address]DHC (RBC) [Entitic mass]33.9 mzHaxzau82.0-34.0[facility] on above:Order Comment: Specimen Type: BLOOD SPECIMENOrdering Facility: [facility] Address:[address] [place], [place] [address]Performed By: #### 49469-7 ####[facility] LABCLIA [id number] [place], [place] [address]OIIV (RBC) [Mass/Vol]33.5 g/bRXobjjo28.5-36.0[facility] on above: Order Comment: Specimen Type: BLOOD SPECIMENOrdering Facility: [facility] Address:[address] [place], [place] [address]Performed By: #### 60047- 8 ####[facility] LABCLIA [id number] [place], [place] [address]ZXV (RBC) [Entitic vol]101.0 qQFmsf94.0-100.0[facility] on above:Order Comment: Specimen Type: BLOOD SPECIMENOrdering Facility: [facility] Address:[address] [place], [place] [address]Performed By: #### 68197-6 ####[facility] LABCLIA [id number] [place], [place] [address]Zspepcjwg (Bld) [#/Vol]0.38 10*3/uLNormal<0.87[facility] on above:Order Comment: Specimen Type: BLOOD SPECIMENOrdering Facility: [facility] Address:[address] [place], [place] [address]Performed By: #### 06970- 8 ####[facility] LABCLIA [id number] [place], [place] [address]Ulaszfnik/100 WBC (Bld)8.2 %NormalRegional Medical Center on above:Order Comment: Specimen Type: BLOOD SPECIMENOrdering Facility: [facility] Address:[address] [place], [place] [address]Performed By: #### 76509-2 ####[facility] LABCLIA [id number] [place], [place] [address]Ovmtspbhvme (Bld) [#/Vol]3.08 10*3/uLNormal1.45-7.50[facility] on above:Order Comment: Specimen Type: BLOOD SPECIMENOrdering Facility: [facility] Address:[address] [place], [place] [address]Performed By: #### 89444-7 ####[facility] LABCLIA [id number] [place], [place] [address]Msqcjnyriyz/100 WBC (Bld)66.4 %NormalRegional Medical Center on above:Order Comment: Specimen Type: BLOOD SPECIMENOrdering Facility: [facility] Address:[address] [place], [place] [address]Performed By: #### 83547-4 ####[facility] LABCLIA [id number] [place], [place] [address]Vuyfgdfuw RBC (Bld) [#/Vol] 10*3/uLNormal<0.01[facility] on above:Order Comment: Specimen Type: BLOOD SPECIMENOrdering Facility: [facility] Address:[address] [place], [place] [address]Performed By: #### 14698-0 ####[facility] LABIA [id number] [place], [place] [address]Mxuffnxic RBC/100 WBC (Bld) [Ratio]0.0 /100 WBCNormal [facility] on above:Order Comment: Specimen Type: BLOOD SPECIMENOrdering Facility: [facility] Address:[address] [place], [place] [address]Performed By: #### 95417-1 ####[facility] LABIA [id number] [place], [place] [address]Cisrvtof mean volume (Bld) [Entitic vol]9.4 fLNormal9.0-12.7CUniversity Hospitals Par[facility] on above:Order Comment: Specimen Type: BLOOD SPECIMENOrdering Facility: [facility] Address:[address] [place], [place] [address] Performed By: #### 20449-2 ####[facility] LABCLIA [id number] [place], [place] [address]Wvhyvfakv (Bld) [#/Vol]209 10*3/sCXyaqhd424-370NlwlkkdulRegional Medical Center on above:Order Comment: Specimen Type: BLOOD SPECIMENOrdering Facility: [facility] Address:[address] [place], [place] [address]Performed By: #### 81761-6 ####[facility] LABCLIA [id number] [place], [place] [address]WNP (Bld) [#/Vol]3.13 10*6/uLLow4.20-6.00[facility] on above:Order Comment: Specimen Type: BLOOD SPECIMENOrdering Facility: [facility] Address:[address] [place], [place] [address]Performed By: #### 78982-1 ####[facility] LABIA [id number] [place], [place] [address]DVJ (Bld) [#/Vol]4.64 10*3/uL Normal3.70-11.00[facility] on above:Order Comment: Specimen Type: BLOOD SPECIMENOrdering Facility: [facility] Address:[address] [place], [place] [address]Performed By: #### 09331-7 ####[facility] LABIA [id number] [place], [place] [address]IN CHEST W IVCONon 72-13-4350MU CHEST W IVCON* * *Final Report* * * DATE OF EXAM: Jan 10 2025 3:05PM [facility] 0539 - CT CHEST W [...] any questions regarding this interpretation, please call [phone]. If you are unable to reach us at the number above, please feel free to contact [facility] eRadiology at [phone]. [id number] Fostoria Community Hospital NECK SOFT TISSUE W IVCONon 49-10-4167TA NECK SOFT TISSUE W IVCON* * *Final Report* * * DATE OF EXAM: Jan 10 2025 3:05PM [facility] 0013 - CT NECK SOFT [...] amalgam. Parotid and submandibular spaces are normal. Circular Sawyer Stone spaces appear normal. Infrahyoid Neck: Hypopharynx, larynx, [...] any questions regarding this interpretation, please call [phone]. If you are unable to reach us at the number above, please feel free to contact [facility] eRadiology at [phone]. [id number] Fostoria Community Hospital Neck W contrast Javier 82-19-5090CLTONRKPWV: Redemonstration of the posttreatment related changes in [...] any questions regarding this interpretation, please call [phone]. If you are unable to reach us at the number above, please feel free to contact [facility] eRadiology at [phone].DIVISION OF RADIOLOGY* * *Final Report* * * DATE OF EXAM: Jan 10 2025 3:05PM [facility] 0013 - CT NECK SOFT [...] amalgam. Parotid and submandibular spaces are normal. Circular Sawyer Stone spaces appear normal. Infrahyoid Neck: Hypopharynx, larynx, [...] accession. Other: Not applicable. DIVISION OF RADIOLOGYProvider, [facility] [place] - 01/10/2025 * * *Final Report* * * DATE OF EXAM: Jan 10 2025 3:05PM [facility] 0013 - CT NECK SOFT [...] amalgam. Parotid and submandibular spaces are normal. Circular Sawyer Stone spaces appear normal. Infrahyoid Neck: Hypopharynx, larynx, [...] any questions regarding this interpretation, please call [phone]. If you are unable to reach us at the number above, please feel free to contact [facility] at [phone]. [facility] SouthRadiology Study observation (narrative)[facility] SouthCT Neck W contrast IVOrdered By: Ccf Provider on 42-60-1312Jjutxcqkf ClinicComprehensive metabolic 2000 panelOrdered By: Jess Baker on 31-43-9917Lnjsemn [Mass/Vol]4.4 g/dL3.9 - 4.9 g/dLCooleemee ClinicALP [Catalytic activity/Vol]79 U/L38 - 113 U/L [facility] ClinicALT [Catalytic activity/Vol]8 U/LLow10 - 54 U/LCleveland Clinic Anion gap [Moles/Vol]11 mmol/L8 - 15 mmol/LCleveland ClinicAST [Catalytic activity/Vol]14 U/L14 - 40 U/LCleveland ClinicBilirubin [Mass/Vol]0.6 mg/dL0.2 - 1.3 mg/dLCooleemee ClinicCalcium [Mass/Vol]9.6 mg/dL8.5 - 10.2 mg/dLCooleemee ClinicChloride [Moles/Vol]102 mmol/L98 - 107 mmol/LCleveland ClinicCO2 [Moles/Vol]25 mmol/L22 - 30 mmol/LCleveland ClinicCreatinine [Mass/Vol]0.68 mg/dLLow0.73 - 1.22 mg/dLSelect Medical Specialty Hospital - Columbus SouthGFR/1.73 sq M.predicted among non- blacks MDRD (S/P/Bld) [Vol rate/Area]101 mL/min/{1.73_m2}- [facility] Comment on above:Estimated Glomerular Filtration Rate (eGFR) [...] not accurately reflect actual GFR.Glucose [Mass/Vol] 100 mg/xBDqwg90 - 99 mg/dLSelect Medical Specialty Hospital - Columbus SouthComment on above:The [place] Diabetes Association (ADA) provides guidance for cutoff [...] Standards of Medical Care in Diabetes 2016, [place] Diabetes Association. Diabetes Care. 2016.39(Suppl 1). Interpretation and review of laboratory resultsAbnormalClevelmartin general hospital ClinicPotassium [Moles/Vol]3.7 mmol/L3.7 - 5.1 mmol/LCkettering health main campus ClinicProtein [Mass/Vol]6.8 g/dL 6.3 - 8.0 g/dLMount St. Mary Hospitalodium [Moles/Vol]138 mmol/L136 - 144 mmol/L [facility] SouthUrea nitrogen [Mass/Vol]9 mg/dL9 - 24 mg/dLUniversity Hospitals Cleveland Medical CenterComprehensive metabolic 2000 panelon 22-99-7374Vhsmmel [Mass/Vol]4.4 g/dLNormal3.9-4.9CWyandot Memorial HospitalComment on above:Order Comment: Specimen Type: BLOOD SPECIMENOrdering Facility: [facility] Address:[address] [place], [place] [address]Performed By: #### 40111- 8 ####[facility] MEDICAL CENTERZULEIMA [facility] LABCLIA [id number] [place] MILESCOPPER SPRINGS EAST HOSPITALJOAQUÍNMELBOURNE BEACH, [place] [address]CUK [Catalytic activity/Vol]79 U/XOcyytr90-046QvrctuwopRegional Medical Center on above:Order Comment: Specimen Type: BLOOD SPECIMENOrdering Facility: [facility] Address:[address] [place], [place] [address]Performed By: #### 96732-0 ####[facility] LABCLIA [id number] [place]ANZAELINKL[place], [place] [address]TVB [Catalytic activity/Vol]8 U/HTmg02-32EygqwcjwfRegional Medical Center on above:Order Comment: Specimen Type: BLOOD SPECIMENOrdering Facility: [facility] Address:[address] [place], [place] [address]Performed By: #### 27080- 8 ####[facility] LABCLIA [id number] [facility] JDKLAMATH [place]ALL[place], [place] [address]Slmpo gap [Moles/Vol]11 mmol/LNormal8-15[facility] on above:Order Comment: Specimen Type: BLOOD SPECIMENOrdering Facility: [facility] Address:[address] [place], [place] [address]Performed By: #### 66951-0 ####[facility] LABCLIA [id number] [place], [place] [address]HZS [Catalytic activity/Vol]14 U/YHbgzqy16-52HywllyhndRegional Medical Center on above:Order Comment: Specimen Type: BLOOD SPECIMENOrdering Facility: [facility] Address:[address] [place], [place] [address]Performed By: #### 49735-5 ####[facility] LABCLIA [id number] [place] [address] Bilirubin [Mass/Vol]0.6 mg/dLNormal0.2-1.3CUniversity Hospitals Parma Medical Center on above:Order Comment: Specimen Type: BLOOD SPECIMENOrdering Facility: [facility] Address:[address] [place], [place] [address]Performed By: #### 88765-7 ####[facility] LABCLIA [id number] [facility] CENTERELINCOPPER SPRINGS EAST HOSPITALEVARISTOKASILOF, [place] [address]Hrynbhs [Mass/Vol]9.6 mg/dLNormal8.5-10.2CUniversity Hospitals Parma Medical Center on above:Order Comment: Specimen Type: BLOOD SPECIMENOrdering Facility: [facility] Address:[address] [place], [place] [address]Performed By: #### 43148-8 ####[facility] LABCLIA [id number] [facility] MEDICAL CENTERELINKLAMATH FALLS, [place] [address]Dtciqwnj [Moles/Vol]102 mmol/VRnbhxy59-604YizdwjtnsRegional Medical Center on above: Order Comment: Specimen Type: BLOOD SPECIMENOrdering Facility: [facility] Address:[address] [place], [place] [address]Performed By: #### 01068- 8 ####[facility] LABCLIA [id number] [place], [place] [address]SB4 [Moles/Vol]25 mmol/DOezphy78-79HbjkendixRegional Medical Center on above:Order Comment: Specimen Type: BLOOD SPECIMENOrdering Facility: [facility] Address:[address] [place], [place] [address]Performed By: #### 55046-2 ####[facility] LABCLIA [id number] [facility] CENTERELINCOPPER SPRINGS EAST HOSPITALEVARISTOKASILOF, [place] [address]Ihbdjtinku [Mass/Vol]0.68 mg/dL Low0.73-1.22[facility] on above:Order Comment: Specimen Type: BLOOD SPECIMENOrdering Facility: [facility] Address:[address] [place], [place] [address]Performed By: #### 01282-5 ####[facility] LABCLIA [id number] [place] [address] Creatinine and Glomerular filtration rate.predicted panel (S/P/Bld)101 mL/min/1.73m???Normal>=60[facility] on above:Order Comment: Specimen Type: BLOOD SPECIMENOrdering Facility: [facility] Address:[address] [place], [place] [address]Result Comment: Estimated Glomerular Filtration Rate (eGFR) is [...] not accurately reflect actual GFR.Performed By: #### 35115-4 ####[facility] LABCLIA [id number] [place], [place] [address]Ncknbuz [Mass/Vol]100 mg/lZMmox69-63YolvcmqwzRegional Medical Center on above:Order Comment: Specimen Type: BLOOD SPECIMENOrdering Facility: [facility] Address:[address] [place] [address]Vafhns Comment: The [place] Diabetes Association (ADA) provides guidance for cutoff [...] Standards of Medical Care in Diabetes 2016, [place] Diabetes Association. Diabetes Care. 2016.39(Suppl 1).Performed By: #### 60567-0 ####[facility] LABCLIA [id number] [place], [place] [address]Cctszhvgx [Moles/Vol]3.7 mmol/LNormal3.7-5.1CUniversity Hospitals Parma Medical Center on above:Order Comment: Specimen Type: BLOOD SPECIMENOrdering Facility: [facility] Address:[address] [place], [place] [address]Performed By: #### 28654-6 ####[facility] LABIA [id number] [place], [place] [address]Wgbrjae [Mass/Vol]6.8 g/dLNormal6.3-8.0[facility] on above:Order Comment: Specimen Type: BLOOD SPECIMENOrdering Facility: [facility] Address:[address] [place], [place] [address]Performed By: #### 90204- 8 ####[facility] LABIA [id number] [place], [place] [address]Bnmbsp [Moles/Vol]138 mmol/RPgophx978-112TusabczxcRegional Medical Center on above:Order Comment: Specimen Type: BLOOD SPECIMENOrdering Facility: [facility] Address:[address] [place], [place] [address]Performed By: #### 47768-6 ####[facility] LABIA [id number] [place], [place] [address]Vqnz nitrogen [Mass/Vol]9 mg/dL Normal9-24[facility] on above:Order Comment: Specimen Type: BLOOD SPECIMENOrdering Facility: [facility] Address:[address] [place], [place] [address]Performed By: #### 66220-5 ####[facility] LABIA [id number] [place] [address] Auditory function testson 13-69-9499Xhbjf Ear: 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 Left Ear: Mild to severe sensorineural hearing loss above 500 Hz [facility] SystemCNOVSPon 64-37-4118DZMKQMNaxnj (SP) Office ([place]) CARSON MORSE ([id number]) 1955 M Date Time Provider Department 06/29/24 11:15 AM WYATT GARZA During your visit today, we recorded the following information about you: Temperature Pulse Respiration Blood pressure 97.7 degrees 60/minute 16/minute 153/90 Height 1.651 m Wyatt Garza MD 06/30/2024 9:51 PM Signed NAME: Carson Morse CLINIC NO.: [id number] DATE OF SERVICE: June 29, 2024 (Mirian) [...] then pursue annual monitor (more content not included)...NormalDunlap Memorial Hospital W Auto Differential panel (Bld) on 78-63-0749Jnkhxxrmi (Bld) [#/Vol]0.04 10*3/uLNINFSelect Medical Specialty Hospital - [facility] South Basophils/100 WBC (Bld)0.9 %[facility] SouthDifferential cell count method Nom (Bld)AutoCleveland ClinicEosinophils (Bld) [#/Vol]0.04 10*3/uLNINFSelect Medical Specialty Hospital - Columbus SouthEosinophils/100 WBC (Bld)0.9 %[facility] SouthErythrocyte distribution width (RBC) [Ratio]13.2 %11.5 - 15.0 %[facility] SouthHematocrit (Bld) [Volume fraction]35.9 %Low39.0 - 51.0 %[facility] SouthHemoglobin (Bld) [Mass/Vol]12.8 g/dLLow13.0 - 17.0 g/dLSelect Medical Specialty Hospital - Columbus SouthImmature granulocytes (Bld) [#/Vol]NINF [facility] SouthImmature granulocytes/100 WBC (Bld)0.2 %[facility] Interpretation and review of laboratory resultsAbnormalCLicking Memorial Hospital Lymphocytes (Bld) [#/Vol]0.77 10*3/uLLowSelect Medical Specialty Hospital - Columbus SouthLymphocytes/100 WBC (Bld)18.2 %[facility] Hospitals Cleveland Medical CenterH (RBC) [Entitic mass]32.5 pg26.0 - 34.0 pg [facility] Medical CenterHC (RBC) [Mass/Vol]35.7 g/dL30.5 - 36.0 g/dLSelect Medical Specialty Hospital - [facility] MCV (RBC) [Entitic vol]91.1 fL80.0 - 100.0 fLCLicking Memorial HospitalMonocytes (Bld) [#/Vol]0.48 10*3/uLNINFSelect Medical Specialty Hospital - Columbus SouthMonocytes/100 WBC (Bld)11.4 %[facility] SouthNeutrophils (Bld) [#/Vol]2.88 10*3/uLSelect Medical Specialty Hospital - Columbus SouthNeutrophils/100 WBC (Bld)68.4 %[facility] SouthNucleated RBC (Bld) [#/Vol]NINFCLicking Memorial Hospital Nucleated RBC/100 WBC (Bld) [Ratio]0.0 %/100 WBCSelect Medical Specialty Hospital - Columbus SouthPlatelet mean volume (Bld) [Entitic vol]10.2 fL9.0 - 12.7 fLCLicking Memorial HospitalPlatelets (Bld) [#/Vol]182 10*3/uLCooleemee ClinicRBC (Bld) [#/Vol]3.94 10*6/uLLow4.20 - 6.00 m/[facility] EastWBC (Bld) [#/Vol]4.22 10*3/[facility] ClinicBasophils (Bld) [#/Vol]0.04 10*3/Normal<0.11CWyandot Memorial Hospital Comment on above:Order Comment: Specimen Type: BLOOD SPECIMENOrdering Facility: [facility] Address:[address] [place] [address] Performed By: #### 82480-3 ####[facility] LABCLIA [id number] [place], [place] [address]Aymxfspsl/100 WBC (Bld)0.9 % NormalMckitrick HospitalComment on above:Order Comment: Specimen Type: BLOOD SPECIMENOrdering Facility: [facility] Address:[address] [place], [place] [address]Performed By: #### 13746-4 ####[facility] LABCLIA [id number] [place] [address] Differential cell count method Nom (Bld)AutoNormalCWyandot Memorial Hospital Comment on above:Order Comment: Specimen Type: BLOOD SPECIMENOrdering Facility: [facility] Address:[address] [place] [address] Performed By: #### 92695-4 ####[facility] LABIA [id number] [place], [place] [address]Qscaxxxbats (Bld) [#/Vol]0.04 10*3/uLNormal<0.46[facility] on above:Order Comment: Specimen Type: BLOOD SPECIMENOrdering Facility: [facility] Address:[address] [place], [place] [address]Performed By: #### 90202-9 ####[facility] LABIA [id number] [place], [place] [address]Wneodjhougg/100 WBC (Bld)0.9 %NormalRegional Medical Center on above:Order Comment: Specimen Type: BLOOD SPECIMENOrdering Facility: [facility] Address:[address] [place], [place] [address]Performed By: #### 35970-1 ####[facility] LABIA [id number] [place], [place] [address]Lsytuooxxgt distribution width (RBC) [Ratio]13.2 %Axxvix76.5-15.0[facility] on above: Order Comment: Specimen Type: BLOOD SPECIMENOrdering Facility: [facility] Address:[address] [place], [place] [address]Performed By: #### 80419- 8 ####[facility] LABIA [id number] [place], [place] [address]Xacpivyqci (Bld) [Volume fraction]35.9 %Low39.0-51.0 [facility] on above:Order Comment: Specimen Type: BLOOD SPECIMENOrdering Facility: [facility] Address:[address] [place], [place] [address]Performed By: #### 23301-6 ####[facility] LABIA [id number] [place], [place] [address]Vhmabvqgdi (Bld) [Mass/Vol]12.8 g/dLLow13.0-17.0[facility] on above:Order Comment: Specimen Type: BLOOD SPECIMENOrdering Facility: [facility] Address:[address] [place], [place] [address]Performed By: #### 13073- 8 ####[facility] LABCLIA [id number] [place], [place] [address]Hibuamav granulocytes (Bld) [#/Vol]10*3/uLNormal<0.10 [facility] on above:Order Comment: Specimen Type: BLOOD SPECIMENOrdering Facility: [facility] Address:[address] [place], [place] [address]Performed By: #### 80866-4 ####[facility] LABCLIA [id number] [place], [place] [address]Djilofyg granulocytes/100 WBC (Bld)0.2 %[facility] on above: Order Comment: Specimen Type: BLOOD SPECIMENOrdering Facility: [facility] Address:[address] [place], [place] [address]Performed By: #### 82951- 8 ####[facility] LABCLIA [id number] [place], [place] [address]Aijrypjhwlo (Bld) [#/Vol]0.77 10*3/uLLow1.00-4.00 [facility] on above:Order Comment: Specimen Type: BLOOD SPECIMENOrdering Facility: [facility] Address:[address] [place], [place] [address]Performed By: #### 42113-7 ####[facility] LABCLIA [id number] [place], [place] [address]Kpxvteloprh/100 WBC (Bld)18.2 %NormalRegional Medical Center on above:Order Comment: Specimen Type: BLOOD SPECIMENOrdering Facility: [facility] Address:[address] [place], [place] [address]Performed By: #### 45947-6 ####[facility] LABCLIA [id number] [place], [place] [address]CAC (RBC) [Entitic mass]32.5 vhQqtmrr89.0-34.0[facility] on above:Order Comment: Specimen Type: BLOOD SPECIMENOrdering Facility: [facility] Address:[address] [place], [place] [address]Performed By: #### 55704-7 ####[facility] LABCLIA [id number] [place], [place] [address]JFZY (RBC) [Mass/Vol]35.7 g/fMBetxsu49.5-36.0[facility] on above: Order Comment: Specimen Type: BLOOD SPECIMENOrdering Facility: [facility] Address:[address] [place], [place] [address]Performed By: #### 97349- 8 ####[facility] LABIA [id number] [place], [place] [address]HHF (RBC) [Entitic vol]91.1 nXUkrsnq43.0-100.0[facility] on above:Order Comment: Specimen Type: BLOOD SPECIMENOrdering Facility: [facility] Address:[address] [place], [place] [address]Performed By: #### 25787-1 ####[facility] LABIA [id number] [place], [place] [address]Ctdmbcfqr (Bld) [#/Vol]0.48 10*3/uLNormal<0.87[facility] on above:Order Comment: Specimen Type: BLOOD SPECIMENOrdering Facility: [facility] Address:[address] [place], [place] [address]Performed By: #### 77263- 8 ####[facility] LABIA [id number] [place], [place] [address]Uaomppgqk/100 WBC (Bld)11.4 %NormalRegional Medical Center on above:Order Comment: Specimen Type: BLOOD SPECIMENOrdering Facility: [facility] Address:[address] [place], [place] [address]Performed By: #### 23785-1 ####[facility] LABCLIA [id number] [place], [place] [address]Gadsnvdabex (Bld) [#/Vol]2.88 10*3/uLNormal1.45-7.50[facility] on above:Order Comment: Specimen Type: BLOOD SPECIMENOrdering Facility: [facility] Address:[address] [place], [place] [address]Performed By: #### 75292-2 ####[facility] LABCLIA [id number] [place], [place] [address]Qncwifowtsj/100 WBC (Bld)68.4 %NormalRegional Medical Center on above:Order Comment: Specimen Type: BLOOD SPECIMENOrdering Facility: [facility] Address:[address] [place], [place] [address]Performed By: #### 76914-6 ####[facility] LABCLIA [id number] [place], [place] [address]Iqdfnbsoe RBC (Bld) [#/Vol] 10*3/uLNormal<0.01[facility] on above:Order Comment: Specimen Type: BLOOD SPECIMENOrdering Facility: [facility] Address:[address] [place], [place] [address]Performed By: #### 07608-6 ####[facility] LABCLIA [id number] [place], [place] [address]Tqxjfwlkg RBC/100 WBC (Bld) [Ratio]0.0 /100 WBCNormal [facility] on above:Order Comment: Specimen Type: BLOOD SPECIMENOrdering Facility: [facility] Address:[address] [place], [place] [address]Performed By: #### 89629-6 ####[facility] LABCLIA [id number] [place], [place] [address]Dmwzntze mean volume (Bld) [Entitic vol]10.2 fLNormal9.0-12.7CUniversity Hospitals Parma Medical Center on above:Order Comment: Specimen Type: BLOOD SPECIMENOrdering Facility: [facility] Address:[address] [place] [address] Performed By: #### 77568-6 ####[facility] LABCLIA [id number] [place], [place] [address]Gdciejpzi (Bld) [#/Vol]182 10*3/pBMahwol044-440YosednrxtRegional Medical Center on above:Order Comment: Specimen Type: BLOOD SPECIMENOrdering Facility: [facility] Address:[address] [place], [place] [address]Performed By: #### 43325-3 ####[facility] LABCLIA [id number] [place], [place] [address]RUO (Bld) [#/Vol]3.94 10*6/uLLow4.20-6.00[facility] on above:Order Comment: Specimen Type: BLOOD SPECIMENOrdering Facility: [facility] Address:[address] [place], [place] [address]Performed By: #### 79000-5 ####[facility] LABCLIA [id number] [place], [place] [address]QCM (Bld) [#/Vol]4.22 10*3/uL Normal3.70-11.00[facility] on above:Order Comment: Specimen Type: BLOOD SPECIMENOrdering Facility: [facility] Address:[address] [place], [place] [address]Performed By: #### 93652-6 ####[facility] LABCLIA [id number] [place], [place] [address]MC CHEST W IVCONon 07-61-7644EU CHEST W IVCON* * *Final Report* * * DATE OF EXAM: Jun 22 2024 9:02AM [facility] 0539 - CT CHEST W [...] abdomen: Visualized upper abdomen is grossly unremarkable. Map Plotter (topogram) images: Unremarkable. IMPRESSION: Previously identified new [...] any questions regarding this interpretation, please call [phone]. If you are unable to reach us at the number above, please feel free to contact [facility] eRadiology at [phone]. [id number] HospitalCT Chest W contrast Javier 87-86-9440ZMBLGWAHSF: Previously identified new pulmonary nodules have resolved [...] any questions regarding this interpretation, please call [phone]. If you are unable to reach us at the number above, please feel free to contact [facility] eRadiology at [phone].DIVISION OF RADIOLOGY* * *Final Report* * * DATE OF EXAM: Jun 22 2024 9:02AM [facility] 0539 - CT CHEST W [...] abdomen: Visualized upper abdomen is grossly unremarkable. Map Plotter (topogram) images: Unremarkable. DIVISION OF RADIOLOGYProvider, [facility] [place] - 06/22/2024 * * *Final Report* * * DATE OF EXAM: Jun 22 2024 9:02AM [facility] 0539 - CT CHEST W [...] abdomen: Visualized upper abdomen is grossly unremarkable. Map Plotter (topogram) images: Unremarkable. IMPRESSION IMPRESSION: Previously identified [...] any questions regarding this interpretation, please call [phone]. If you are unable to reach us at the number above, please feel free to contact [facility] Hospital[facility] at [phone]. [facility] SouthRadiology Study observation (narrative)[facility] Chest W contrast IVOrdered By: Ccf Provider on 46-60-7662Urimeueux ClinicComprehensive metabolic 2000 panelOrdered By: Les Luke on 96-24-0589Ehdrtdf [Mass/Vol]5.1 g/dLHigh3.9 - 4.9 g/dLClepike community hospital ClinicALP [Catalytic activity/Vol]88 U/L38 - 113 U/LCleveland ClinicALT [Catalytic activity/Vol]15 U/L10 - 54 U/LC[facility] Clinic Anion gap [Moles/Vol]9 mmol/L8 - 15 mmol/LCleveland ClinicAST [Catalytic activity/Vol]33 U/L14 - 40 U/LCleveland ClinicBilirubin [Mass/Vol]1.1 mg/dL0.2 - 1.3 mg/dLClepike community hospital ClinicCalcium [Mass/Vol]10.3 mg/dLHigh8.5 - 10.2 mg/dL [facility] SouthChloride [Moles/Vol]97 mmol/LLow98 - 107 mmol/LCleveland Clinic CO2 [Moles/Vol]26 mmol/L22 - 30 mmol/LCleveland ClinicCreatinine [Mass/Vol]0.96 mg/dL0.73 - 1.22 mg/dLCooleemee ClinicGFR/1.73 sq M.predicted among non-blacks MDRD (S/P/Bld) [...] not accurately reflect actual GFR.Glucose [Mass/Vol] 104 mg/xNFfsp76 - 99 mg/dLMetroHealth Main Campus Medical Center on above:The [place] Diabetes Association (ADA) provides guidance for cutoff [...] Standards of Medical Care in Diabetes 2016, [place] [employer] Association. Diabetes Care. 2016.39(Suppl 1). Interpretation and review of laboratory resultsAbnormalCleveland ClinicPotassium [Moles/Vol]5.0 mmol/L3.7 - 5.1 mmol/LCkettering health main campus ClinicProtein [Mass/Vol]7.9 g/dL 6.3 - 8.0 g/dLMount St. Mary Hospitalodium [Moles/Vol]132 mmol/ZBao438 - 144 mmol/L [facility] SouthUrea nitrogen [Mass/Vol]11 mg/dL9 - 24 mg/dLUniversity Hospitals Cleveland Medical CenterComprehensive metabolic 2000 panelon 58-21-4369Blkkujs [Mass/Vol]5.1 g/dLHigh3.9-4.9CUniversity Hospitals Par[facility] on above:Order Comment: Specimen Type: BLOOD SPECIMENOrdering Facility: [facility] Address:[address] [place], [place] [address]Logpnitik By: #### 77986- 8 ####[facility] MEDICAL CENTERZULEIMA [facility] LABCLIA [id number] [place], [place] [address]UMH [Catalytic activity/Vol]88 U/OClpnek96-739QhiygzaumRegional Medical Center on above:Order Comment: Specimen Type: BLOOD SPECIMENOrdering Facility: [facility] Address:[address] [place], [place] [address]Performed By: #### 74713-1 ####[facility] LABCLIA [id number] [place] [address]BGV [Catalytic activity/Vol]15 U/PWdnaps77-51PnyxarmrbRegional Medical Center on above:Order Comment: Specimen Type: BLOOD SPECIMENOrdering Facility: [facility] Address:[address] [place], [place] [address]Performed By: #### 97088- 8 ####[facility] LABCLIA [id number] [place] MILESCOPPER SPRINGS EAST HOSPITALJOAQUÍNMELBOURNE [place], [place] [address]Cjeiw gap [Moles/Vol]9 mmol/LNormal8-15[facility] on above:Order Comment: Specimen Type: BLOOD SPECIMENOrdering Facility: [facility] Address:[address] [place], [place] [address]Performed By: #### 53154-9 ####[facility] LABCLIA [id number] [place], [place] [address]HYW [Catalytic activity/Vol]33 U/OBizurj15-73KvnnodiaeRegional Medical Center on above:Order Comment: Specimen Type: BLOOD SPECIMENOrdering Facility: [facility] Address:[address] [place], [place] [address]Performed By: #### 10770-3 ####[facility] LABCLIA [id number] [place] [address] Bilirubin [Mass/Vol]1.1 mg/dLNormal0.2-1.3CUniversity Hospitals Parma Medical Center on above:Order Comment: Specimen Type: BLOOD SPECIMENOrdering Facility: [facility] Address:[address] [place], [place] [address]Performed By: #### 56796-2 ####[facility] LABCLIA [id number] NEIL DILLONELINCOPPER SPRINGS EAST HOSPITALJOAQUÍNMELBOURNE BEACH, [place] [address]Jheqycw [Mass/Vol]10.3 mg/dLHigh8.5-10.2CUniversity [facility] on above:Order Comment: Specimen Type: BLOOD SPECIMENOrdering Facility: [facility] Address:[address] [place], [place] [address]Performed By: #### 92317-2 ####[facility] LABCLIA [id number] [place], [place] [address]Rvzjphsw [Moles/Vol]97 mmol/WRtx63-017DqgsjgdvyRegional Medical Center on above:Order Comment: Specimen Type: BLOOD SPECIMENOrdering Facility: [facility] Address:[address] [place], [place] [address]Performed By: #### 64533- 8 ####[facility] LABCLIA [id number] [place], [place] [address]OG8 [Moles/Vol]26 mmol/GBkapwd88-52ZtguiniehRegional Medical Center on above:Order Comment: Specimen Type: BLOOD SPECIMENOrdering Facility: [facility] HOSPITAL Address:[address] [place], [place] [address]Performed By: #### 07508-7 ####[facility] LABCLIA [id number] [place], [place] [address]Fmnmhiajvl [Mass/Vol]0.96 mg/dL Normal0.73-1.22[facility] on above:Order Comment: Specimen Type: BLOOD SPECIMENOrdering Facility: [facility] Address:[address] [place], [place] [address]Performed By: #### [id number] ####[facility] LABCLIA [id number] [place], [place] [address]Qgbuxxshux and Glomerular filtration rate.predicted panel (S/P/Bld)87 mL/min/1.73m???Normal>=60[facility] on above:Order Comment: Specimen Type: BLOOD SPECIMENOrdering Facility: [facility] Address:[address] [place], [place] [address]Result Comment: Estimated Glomerular Filtration Rate (eGFR) is [...] not accurately reflect actual GFR.Performed By: #### 35536-9 ####[facility] LABCLIA [id number] [place], [place] [address]Kusorwv [Mass/Vol]104 mg/qWDiay73-12OxtddtaigRegional Medical Center on above:Order Comment: Specimen Type: BLOOD SPECIMENOrdering Facility: [facility] Address:[address] [place] [address]Nszrbz Comment: The [place] Diabetes Association (ADA) provides guidance for cutoff [...] Standards of Medical Care in Diabetes 2016, [place] Diabetes Association. Diabetes Care. 2016.39(Suppl 1).Performed By: #### 21970-6 ####[facility] LABCLIA [id number] [place], [place] [address]Xcgxcirfl [Moles/Vol]5.0 mmol/LNormal3.7-5.1CUniversity Hospitals Parma [facility] on above:Order Comment: Specimen Type: BLOOD SPECIMENOrdering Facility: [facility] Address:[address] [place], [place] [address]Unugearsg By: #### 78009-9 ####[facility] LABCLIA [id number] [place], [place] [address]Tymybcb [Mass/Vol]7.9 g/dLNormal6.3-8.0[facility] on above:Order Comment: Specimen Type: BLOOD SPECIMENOrdering Facility: [facility] Address:[address] [place] [address]Qfasmmddb By: #### 24212- 8 ####[facility] LABCLIA [id number] [place], [place] [address]Jxpxkr [Moles/Vol]132 mmol/EWwo243-571HlnbefroiRegional Medical Center on above:Order Comment: Specimen Type: BLOOD SPECIMENOrdering Facility: [facility] Address:[address] [place], [place] [address]Performed By: #### 35183-2 ####[facility] LABCLIA [id number] [place], [place] [address]Yvfm nitrogen [Mass/Vol]11 mg/dLNormal9-24[facility] on above:Order Comment: Specimen Type: BLOOD SPECIMENOrdering Facility: [facility] Address:[address] [place] [address]Zwfvkrhwy By: #### 76620-6 ####[facility] CENTERZULEIMA [facility] LABCLIA [id number] [place], [place] [address]RSHRks 86-87-2383CFOFFsrfzbrcp (MYLA) CARSON MORSE ([id number]) 1955 M Date Time Provider Department 06/12/24 [...] liver [K76.0] Order(s):ALPHA FETOPROTEIN [SQAFP] Order #: [id number] FUTURE US ABD RIGHT UPPER QUADRANT [[id number]] Order #: [id number] FUTURE DDI VIBRATION CONTROLLED TRANSIENT ELASTOGRAPHY (VCTE) [[id number]] Order #: [id number] Prescriptions as of 06/19/2024 - levoFLOXacin (LEVAQUIN) [...] 12/18/2020 Encounter Status:Closed by EMILY ARMSTRONG on 06/19/24[facility] HospitalUS ABD RIGHT UPPER QUADRANTon 31-86-4786DB ABD RIGHT UPPER QUADRANT* * *Final Report* [...] the liver which may reflect mild/early cirrhosis. Project Management Specialist: ALEJO Transcribe Date/Time: May 28 2024 7:30P Dictated by : IVANNA CROFT MD This examination was interpreted and the report reviewed and electronically signed by: IVANNA CROFT MD on May 28 2024 7:33PM EST [id number] Hospitals Geneva Medical Center Abdomen RUQon 60-06-9786AMKJJVZALW: 1. Increase echogenicity the liver, likely secondary to hepatic steatosis. There is questionable minimal nodularity on the contour of the liver which may reflect mild/early cirrhosis. Project Management Specialist: ALEJO Transcribe Date/Time: May 28 2024 7:30P [...] No hydronephrosis. Ascites: None. DIVISION OF RADIOLOGYProvider, [facility] [place] - 05/28/2024 * * *Final Report* * [...] the liver which may reflect mild/early cirrhosis. Project Management Specialist: ALEJO Transcribe Date/Time: May 28 2024 7:30P Dictated by : IVANNA CROFT MD This examination was interpreted and the report reviewed and electronically signed by: IVANNA CROFT MD on May 28 2024 7:33PM [facility] Study observation (narrative)[facility] Abdomen RUQOrdered By: [facility]cf Provider on 83-70-7530Psuioboga ClinicCNPNon 52-27-0865CGPDGfemgmykc (GASTNO) CARSON MORSE ([id number]) 1955 M Date Time Provider Department 05/24/24 HALIMA NIXON During your visit today, we recorded the following information about you: Emily Armstrong RN 05/24/2024 9:56 AM Addendum ----- Message from Halima Nixon MD sent at 05/23/2024 2:56 PM EDT ----- Negative hep C RNA consistent with sustained response Repeat in one year Reviewed test results Pt read result message from Dr. Nixon via [employer]. Called and spoke to patient regarding test results and recommendation from Dr. Nixon Pt state dUS is sched for Mon at [place] Demonstrated understanding Dr. Lund, Orders submitted for repeat Hep C RNA Please review and sign ThanksEmily RN Allergies As of Date: 05/24/2024 (No Known Allergies) Date Reviewed: 03/30/2024 Reviewed by: Felipa Sosa MA - Fully Assessed Primary Visit Diagnosis:Chronic hepatitis C without hepatic coma (HCC) [B18.2] Order(s):HEPATITIS C RNA QUANTIFICATION BY PCR, PLASMA/SERUM [SQHCQPCR] Order #: [id number] FUTURE Prescriptions as of 06/11/2024 - levoFLOXacin [...] 12/18/2020 Encounter Status:Closed by EMILY ARMSTRONG on 05/24/24NormalCWyandot Memorial HospitalHCV RNA SerPl PAULA+probe-aCncon 27-96-0099QQX RNA PAULA+probe QnNot detectedNormalHCV RNA not detected by PCR.Mckitrick HospitalComment on above:Order Comment: Specimen Type: BLOOD SPECIMENOrdering Facility: [facility] Address:[address] [place], [place] [address]Performed By: #### 95599-4 ####[facility] LABCLIA [id number] [facility] [id number] OF [facility]IC CLINICCNPNon 42-49-0515WGIC Telephone (MYLA) CARSON MORSE ([id number]) 1955 M Date Time Provider Department 05/17/24 [...] LFTs [R79.89] Order(s):US ABD RIGHT UPPER QUADRANT [[id number]] Order #: [id number] FUTURE HEPATITIS C RNA QUANTIFICATION BY PCR, PLASMA/SERUM [SQHCQPCR] Order #: [id number] FUTURE Prescriptions as of 05/21/2024 - levoFLOXacin [...] 12/18/2020 Encounter Status:Closed by EMILY ARMSTRONG on 05/21/24[facility] HospitalCNOVSPon 68-86-8167FCLBIRSgupu (SP) Office (HEMASA) CARSON MORSE ([id number]) 1955 M Date Time Provider Department 03/30/24 2:45 PM WYATT GARZA During your visit today, we recorded the following information about you: Temperature Pulse Respiration Blood pressure 97.2 degrees 82/minute 16/minute 129/79 Weight Height 64 kg 1.651 m Wyatt Garza MD 04/01/2024 9:31 AM Signed NAME: Carson Morse CLINIC NO.: [id number] DATE OF SERVICE: March 30, 2024 ([facility]) Some elements in this [...] returns today, he has (more content not included)...NormalMckitrick HospitalCREATININE BLDOrdered By: Rufina Ibarra on 05-97-1842Lgcqwhudxg [Mass/Vol]0.84 mg/dL0.73 - 1.22 mg/dLSelect Medical Specialty Hospital - Columbus SouthGFR/1.73 sq M.predicted among non-blacks MDRD (S/P/Bld) [Vol rate/Area]96 mL/min/{1.73_m2}- PINF [facility] on above:Estimated Glomerular Filtration Rate [...] GFR. Interpretation and review of laboratory resultsNormalCleveland Parkwood HospitalCREATININE BLDon 05-30-3249Mwfmimihqt [Mass/Vol]0.84 mg/dLNormal0.73-1.22 [facility] on above:Order Comment: Specimen Type: BLOOD SPECIMENOrdering Facility: [facility] Address:[address] [place], [place] [address]Performed By: #### CRET1 ####[facility] LABCLIA [id number] [place], [place] [address]Rylowyekdr and Glomerular filtration rate.predicted panel (S/P/Bld)96 mL/min/1.73m???Normal>=60 [facility] on above:Order Comment: Specimen Type: BLOOD SPECIMENOrdering Facility: [facility] Address:[address] [place] [address]Cgpbbz Comment: Estimated Glomerular Filtration Rate (eGFR) is [...] accurately reflect actual GFR.Performed By: #### CRET1 ####[facility]ENTERAST [facility] LABCLIA [id number] [place], [place] [address]GF CHEST W IVCONon 20-55-8422JB CHEST W IVCON* * *Final Report* * * DATE OF EXAM: Mar 23 2024 8:49AM [facility] 0539 - CT CHEST W [...] of an adrenal mass in the visualized abgkf-pl-viil. Fat-containing epigastric anterior abdominal hernia.. Map Plotter (topogram) images: No additional findings. IMPRESSION: 1. [...] any questions regarding this interpretation, please call [phone]. If you are unable to reach us at the number above, please feel free to contact [facility] eRadiology at [phone]. [id number] Fostoria Community Hospital Chest W contrast Javier 52-82-2080HNKUOLBIEK: 1. New subcentimeter nodular opacities measuring less [...] any questions regarding this interpretation, please call [phone]. If you are unable to reach us at the number above, please feel free to contact [facility] eRadiology at [phone].DIVISION OF RADIOLOGY* * *Final Report* * * DATE OF EXAM: Mar 23 2024 8:49AM [facility] 0539 - CT CHEST W [...] of an adrenal mass in the visualized efxre-gf-dtpf. Fat-containing epigastric anterior abdominal hernia.. Map Plotter (topogram) images: No additional findings. DIVISION OF RADIOLOGYProvider, [facility] [place] - 03/23/2024 * * *Final Report* * * DATE OF EXAM: Mar 23 2024 8:49AM [facility] 0539 - CT CHEST W [...] of an adrenal mass in the visualized qkeir-lf-tfvf. Fat-containing epigastric anterior abdominal hernia.. Map Plotter (topogram) images: No additional findings. IMPRESSION IMPRESSION: [...] any questions regarding this interpretation, please call [phone]. If you are unable to reach us at the number above, please feel free to contact [facility] eRadiology at [phone]. [facility] SouthRadiology Study observation (narrative)[facility] SouthCT Chest W contrast IVOrdered By: Ccf Provider on 16-39-5698Jhsndiebi [facility] W Auto Differential panel (Bld)on 12-95-5067Zbvhptrjy (Bld) [#/Vol]0.05 10*3/uLNINF [facility] SouthBasophils/100 WBC (Bld)1.2 %[facility] SouthDifferential cell count method Nom (Bld)AutoCleveland ClinicEosinophils (Bld) [#/Vol]0.04 10*3/uL NINFClevelmartin general hospital ClinicEosinophils/100 WBC (Bld)0.9 %[facility] SouthErythrocyte distribution width (RBC) [Ratio]13.1 %11.5 - 15.0 %[facility] SouthHematocrit (Bld) [Volume fraction]38.0 %Low39.0 - 51.0 %[facility] SouthHemoglobin (Bld) [Mass/Vol]12.9 g/dLLow13.0 - 17.0 g/dLSelect Medical Specialty Hospital - Columbus SouthImmature granulocytes (Bld) [#/Vol]NINFCleveland ClinicImmature granulocytes/100 WBC (Bld)0.2 % [facility] SouthInterpretation and review of laboratory resultsAbnormalCleveland ClinicLymphocytes (Bld) [#/Vol]0.83 10*3/uLLowCleSt. Vincent HospitalLymphocytes/100 WBC (Bld)19.5 %[facility] Medical CenterH (RBC) [Entitic mass]31.7 pg26.0 - 34.0 pg [facility] Medical CenterHC (RBC) [Mass/Vol]33.9 g/dL30.5 - 36.0 g/dLSelect Medical Specialty Hospital [facility] MCV (RBC) [Entitic vol]93.4 fL80.0 - 100.0 fLCLicking Memorial HospitalMonocytes (Bld) [#/Vol]0.37 10*3/uLNINFSelect Medical Specialty Hospital - Columbus SouthMonocytes/100 WBC (Bld)8.7 %[facility] SouthNeutrophils (Bld) [#/Vol]2.95 10*3/uLSelect Medical Specialty Hospital - Columbus SouthNeutrophils/100 WBC (Bld)69.5 %[facility] SouthNucleated RBC (Bld) [#/Vol]NINFCLicking Memorial Hospital Nucleated RBC/100 WBC (Bld) [Ratio]0.0 %/100 WBCSelect Medical Specialty Hospital - Columbus SouthPlatelet mean volume (Bld) [Entitic vol]9.6 fL9.0 - 12.7 fLCLicking Memorial HospitalPlatelets (Bld) [#/Vol]197 10*3/[facility] Cleveland EastRBC (Bld) [#/Vol]4.07 10*6/uLLow4.20 - 6.00 m/[facility] EastWBC (Bld) [#/Vol]4.25 10*3/uLRegency Hospital Cleveland East ClinicCT Chest W contrast Javier 97-91-8840RWVZEUHQTI: 1. Stable appearance of bilateral pulmonary nodules. [...] any questions regarding this interpretation, please call [phone]. If you are unable to reach us at the number above, please feel free to contact [facility] eRadiology at [phone].DIVISION OF RADIOLOGY* * *Final Report* * * DATE OF EXAM: Dec 16 2023 10:46AM [facility] 0539 - CT CHEST W [...] No abnormality in the imaged upper abdomen. Map Plotter (topogram) images: No additional findings. DIVISION OF RADIOLOGYProvider, [facility] [place] - 12/16/2023 * * *Final Report* * * DATE OF EXAM: Dec 16 2023 10:46AM [facility] 0539 - CT CHEST W [...] No abnormality in the imaged upper abdomen. Map Plotter (topogram) images: No additional findings. IMPRESSION IMPRESSION: [...] any questions regarding this interpretation, please call [phone]. If you are unable to reach us at the number above, please feel free to contact [facility] Hospitaliology at [phone]. [facility] SouthCT Chest W contrast IVOrdered By: Ccf Provider on 12-16-2023 [facility] SouthCT Neck W contrast Javier 36-54-3999PDCIDLUVRN: Stable appearance of the soft tissues of [...] any questions regarding this interpretation, please call [phone]. 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 Mild dystrophic calcification is [...] apices. Other: Not applicable. 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 Mild dystrophic calcification is [...] any questions regarding this interpretation, please call [phone]. If you are unable to reach us at the number above, please feel free to contact [facility] eRadiology at [phone]. [facility] Clermont HospitalComprehensive metabolic 2000 panelOrdered By: Les Luke on 53-71-0496Gmcrvpr [Mass/Vol]4.4 g/dL3.9 - 4.9 g/dLCooleemee ClinicALP [Catalytic activity/Vol]76 U/L38 - 113 U/LCleveland ClinicALT [Catalytic activity/Vol]9 U/LLow10 - 54 U/LCleveland ClinicAnion gap [Moles/Vol] 11 mmol/L9 - 18 mmol/LCleveland ClinicAST [Catalytic activity/Vol]21 U/L14 - 40 U/LCleveland ClinicBilirubin [Mass/Vol]0.8 mg/dL0.2 - 1.3 mg/dLSelect Medical Specialty [facility] Calcium [Mass/Vol]10.2 mg/dL8.5 - 10.2 mg/dLCooleemee ClinicChloride [Moles/Vol] 99 mmol/L97 - 105 mmol/LCleveland ClinicCO2 [Moles/Vol]25 mmol/L22 - 30 mmol/L [facility] SouthCreatinine [Mass/Vol]0.84 mg/dL0.73 - 1.22 mg/dLSelect Medical Specialty Hospital [facility] GFR/1.73 sq M.predicted among non-blacks MDRD (S/P/Bld) [Vol rate/Area]96 mL/min/{1.73_m2}- PINFCtrinity health system west campusand Essentia HealthComment on above:Estimated Glomerular Filtration Rate (eGFR) is [...] actual GFR.Glucose [Mass/Vol]99 mg/dL74 - 99 mg/dL [facility] SouthComment on above:The [place] Diabetes Association (ADA) provides guidance for cutoff [...] Standards of Medical Care in Diabetes 2016, [place] Diabetes Association. Diabetes Care. 2016.39(Suppl 1). Interpretation and review of laboratory resultsAbnormalCleveland ClinicPotassium [Moles/Vol]4.5 mmol/L3.7 - 5.1 mmol/LClevelmartin general hospital ClinicProtein [Mass/Vol]7.2 g/dL 6.3 - 8.0 g/dLClepike community hospital ClinicSodium [Moles/Vol]135 mmol/PZtn574 - 144 mmol/L [place]oleemee ClinicUrea nitrogen [Mass/Vol]12 mg/dL9 - 24 mg/dLMckitrick Hospital ClinicNo Panel Informationon 95-54-8070Thbciynqw Study observation (narrative)[facility] SouthProvider Letteron 47-93-0073Wielaphm Letter March 16, [address]SE [address] [place] [phone] CARSON MORSE 1955 Dear Lito , We have been trying to reach you with no success as your voicemail was full. You had an appointmentscheduled with Dr. Ssuhil Edgar ([facility] office) on April 12 which will need to be rescheduled since he has retired - we can reschedule you with another provider in our practice. Please contact the office at the number listed below to get this appointment rescheduled at your earliest convenience. Thank you for your prompt attention to this matter. Please call [phone] and choose the outside dealer sales representative option. Sincerely, [facility] [address], [place] [address] AgfafgBzulxrTriHealthProvider Letteron 03-03-2023 Provider Letter March 03, 2023 CARSON MORSE [address] [place] [address] CARSON MORSE 1955 Dear Thom , We [...] [facility] [address], [place] [address] VkzwxpEnfnlyTriHealthXR ANKLE RT MIN 3 VIEWSon 85-17-1179JT ANKLE RT MIN 3 VIEWSEXAM: XR ANKLE [...] Electronically authenticated by: ACE ARREOLA Date: 2023-01-27 14:40[facility]len[facility] HospitalXR ANKLE RT MIN 3 VIEWSon 72-34-2075PI ANKLE RT MIN 3 VIEWS EXAM: XR [...] Electronically authenticated by: BENEDICTO THAO Date: 2022-12-29 12:44[facility]leness HospitalFERRITIN BLDon 18-32-4647Kxkpdrgn [Mass/Vol]807.0 ng/xKEvor74.3 - 565.7 ng/mLCleveland ClinicFOLATE SERUMon 99-26-5443Jloiwc [Mass/Vol]10.7 ng/mL4.7 - PINF ng/mLCleveland ClinicFerritin [Mass/Vol]on 12-16-2022 Interpretation and review of laboratory resultsAbnormalCleveland ClinicIron and Iron binding capacity panelon 02-28-7894Kybhzruolvnnsn and review of laboratory resultsAbnormalCleveland ClinicIron [Mass/Vol]213 ug/uZSazb72 - 186 ug/dL [facility] SouthIron binding capacity [Mass/Vol]421 ug/pWTcbq409 - 386 ug/dL [facility] SouthIron/TIBC [Molar ratio]50.6 %15.0 - 57.0 %[facility] CenterNo Panel Informationon 97-24-5094Zadjosfldlvdyh and review of laboratory resultsNormalCtrinity health system west campusand [facility] BLD on 80-05-7325GXT Qn2.470 m[IU]/LCleveland [facility] Qnon 12-16-2022 Interpretation and review of laboratory resultsNormalCLicking Memorial HospitalVITAMIN B12 BLOODon 84-33-7003Xijnsohsl (Vitamin B12) [Mass/Vol]276 pg/mL232 - 1245 pg/mL [facility] W Auto Differential panel (Bld)on 90-82-2379Dgimzjuij (Bld) [#/Vol]0.05 10*3/uLNINFCooleemee ClinicBasophils/100 WBC (Bld)1.1 %[facility] SouthDifferential cell count method Nom (Bld)AutoCleveland ClinicEosinophils (Bld) [#/Vol]0.04 10*3/uLNINFCooleemee ClinicEosinophils/100 WBC (Bld)0.9 % [facility] SouthErythrocyte distribution width (RBC) [Ratio]13.4 %11.5 - 15.0 % [facility] SouthHematocrit (Bld) [Volume fraction]36.7 %Low39.0 - 51.0 % [facility] SouthHemoglobin (Bld) [Mass/Vol]12.5 g/dLLow13.0 - 17.0 g/dLSelect Medical Specialty Hospital - Columbus SouthImmature granulocytes (Bld) [#/Vol]NINFCleveland ClinicImmature granulocytes/100 WBC (Bld)0.2 %[facility] SouthInterpretation and review of laboratory resultsAbnormalCtrinity health system west campusand ClinicLymphocytes (Bld) [#/Vol]0.60 10*3/uL LowSelect Medical Specialty Hospital - Columbus SouthLymphocytes/100 WBC (Bld)13.5 %[facility] CenterH (RBC) [Entitic mass]33.8 pg26.0 - 34.0 pgClevelEssentia HealthHC (RBC) [Mass/Vol]34.1 g/dL30.5 - 36.0 g/dLUniversity Hospitals Cleveland Medical CenterV (RBC) [Entitic vol]99.2 fL80.0 - 100.0 fLCkettering health main campus ClinicMonocytes (Bld) [#/Vol]0.41 10*3/uLNINFSelect Medical Specialty [facility] Monocytes/100 WBC (Bld)9.2 %[facility] SouthNeutrophils (Bld) [#/Vol]3.34 10*3/uLSelect Medical Specialty Hospital - Columbus SouthNeutrophils/100 WBC (Bld)75.1 %[facility] SouthNucleated RBC (Bld) [#/Vol]NINFClevelWilson Street HospitalNucleated RBC/100 WBC (Bld) [Ratio]0.0 % /100 WBCSelect Medical Specialty Hospital - Columbus SouthPlatelet mean volume (Bld) [Entitic vol]9.2 fL9.0 - 12.7 fLCkettering health main campus ClinicPlatelets (Bld) [#/Vol]174 10*3/uLCooleemee ClinicRBC (Bld) [#/Vol]3.70 10*6/uLLow4.20 - 6.00 m/[facility] EastWBC (Bld) [#/Vol]4.45 10*3/[facility] EastThis is an appended report. These results have been appended to a previously verified report.[facility] HospitalCT Chest W contrast Javier 21-98-7902ZIMAGMEIRG: 1. 7 mm part solid right middle [...] any questions regarding this interpretation, please call [phone]. If you are unable to reach us at the number above, please feel free to contact [facility] Hospitaliology at [phone].DIVISION OF RADIOLOGY* * *Final Report* * * DATE OF EXAM: Dec 15 2022 8:49AM [facility] 0539 - CT CHEST W [...] images through the upper abdomen are stable. Map Plotter (topogram) images: No additional findings. DIVISION OF RADIOLOGYProvider, [facility] [place] - 12/15/2022 * * *Final Report* * * DATE OF EXAM: Dec 15 2022 8:49AM [facility] 0539 - CT CHEST W [...] images through the upper abdomen are stable. Map Plotter (topogram) images: No additional findings. IMPRESSION IMPRESSION: [...] any questions regarding this interpretation, please call [phone]. If you are unable to reach us at the number above, please feel free to contact [facility] eRadiology at [phone]. [facility]ermont HospitalCT Neck W contrast Javier 54-70-9260YIOFUUAFFJ: Post-treatment changes without discrete residual/recurrent neoplasm or [...] any questions regarding this interpretation, please call [phone]. If you are unable to reach us at the number above, please feel free to contact [facility] eRadiology at [phone].DIVISION OF RADIOLOGY* * *Final Report* * * DATE OF EXAM: Dec 15 2022 8:49AM [facility] 0013 - CT NECK SOFT [...] was performed concurrently and is dictated separately. Map Plotter (topogram) images: No additional findings. DIVISION OF RADIOLOGYProvider, [facility] [place] - 12/15/2022 * * *Final Report* * * DATE OF EXAM: Dec 15 2022 8:49AM [facility] 0013 - CT NECK SOFT [...] was performed concurrently and is dictated separately. Map Plotter (topogram) images: No additional findings. IMPRESSION IMPRESSION: [...] any questions regarding this interpretation, please call [phone]. If you are unable to reach us at the number above, please feel free to contact [facility] eRadiology at [phone]. [facility]CT Neck W contrast IVOrdered By: Ccf Provider on 12-15-2022 [facility]Comprehensive metabolic 2000 panelOrdered By: Les Luke on 05-86-6240Jcorxqk [Mass/Vol]5.0 g/dLHigh3.9 - 4.9 g/dLCooleemee ClinicALP [Catalytic activity/Vol]72 U/L38 - 113 U/LCleveland ClinicALT [Catalytic activity/Vol]16 U/L10 - 54 U/LCleveland ClinicAnion gap [Moles/Vol]12 mmol/L9 - 18 mmol/LCleveland ClinicAST [Catalytic activity/Vol]30 U/L14 - 40 U/LCleveland ClinicBilirubin [Mass/Vol]0.9 mg/dL0.2 - 1.3 mg/dLCooleemee ClinicCalcium [Mass/Vol]10.5 mg/dLHigh8.5 - 10.2 mg/dLCooleemee ClinicChloride [Moles/Vol]97 mmol/L97 - 105 mmol/LCleveland ClinicCO2 [Moles/Vol]28 mmol/L22 - 30 mmol/L [facility]Creatinine [Mass/Vol]0.73 mg/dL0.73 - 1.22 mg/dLSelect [facility] GFR/1.73 sq M.predicted among non-blacks MDRD (S/P/Bld) [Vol rate/Area]100 mL/min/{1.73_m2}- PINFCLicking Memorial HospitalComment on above:Estimated Glomerular Filtration Rate (eGFR) is calculated using the 2020 CKD-EPI creatinine equation. This equation utilizes serum creatinine, sex, and age as parameters. The creatinine assay has traceable calibration to isotope dilution-mass spectrometry. Refer to KDIGO guidelines for clinical interpretation. In patients with unstable renal function, e.g. those with acute kidney injury, the eGFRmay not accurately reflect actual GFR.Glucose [Mass/Vol]106 mg/iOFyek49 - 99 mg/dL [facility] SouthComment on above:The [place] Diabetes Association (ADA) provides guidance for cutoff [...] Standards of Medical Care in Diabetes 2016, [place] [employer] Association. Diabetes Care. 2016.39(Suppl 1). Interpretation and review of laboratory resultsAbnormalCleveland ClinicPotassium [Moles/Vol]4.7 mmol/L3.7 - 5.1 mmol/LCleveland ClinicProtein [Mass/Vol]7.8 g/dL 6.3 - 8.0 g/dLCooleemee ClinicSodium [Moles/Vol]137 mmol/L136 - 144 mmol/L [facility] SouthUrea nitrogen [Mass/Vol]11 mg/dL9 - 24 mg/dLUniversity Hospitals Cleveland Medical CenterNo Panel Informationon 52-02-6260Ggubviobu Study observation (narrative)[facility] SouthAmbulatory Visit Summaryon 83-69-1966Mtpvdqxkuk Visit Summary CARSON MORSE :1955 Visit Date:04/06/2022 Ambulatory Visit Instructions Your Diagnosis BPH without urinary obstruction Nocturia Tests Performed Urnls Dip Stick Auto w/o Microscopy POC 67541 Your Care Team Attending Physician - Herve [...] MD, Sushil Degroot [facility] CenterPatient Educationon 94-65-0868Vvdnexv EducationUrology Hematuria, Adult Hematuria is blood in [...] these instructions at home: Medicines ? Take zcpd-ldz-hryurwn and prescription medicines only as told by [...] the blood stops without treatment. ? Take syci-jxn-oszimgf and prescription medicines only as told by your health care provider. ? Drink enough fluid to keep your urine clear or pale yellow. This information is not intended to replace advice given to you by your health care provider. Make sure you discuss any questions you have with your health care provider. Document Released: 10/24/2006 Document Revised: 03/19/2020 Document Reviewed: 11/26/2017 [employer]ny Patient Education ? 2019 [employer].[facility] Office/Clinic Noteon 67-69-8298Cvmpprc Office/Clinic NoteChief Complaint 7 month with PSA [...] Urnls Dip Stick Auto w/o Microscopy POC 95267 2. Nocturia (R35.1: Nocturia) ongoing 2x a night Follow-up With When Contact Information Herve Flores MD, Sushil Degroot, URO In 1 year 04/06/2023 EDT [facility] [address], [place] [address]- Additional Instructions: w/psa Patient Education Hematuria, Adult [...] No qualifying data Procedure (more content not included)...TriHealthComment on above:Result Comment: Electronically Signed By: Herve Florse MD, Sushil Degroot\.br\Date and Time Signed: 04/06/2212:01 EDT\.br\Electronically Co-Signed By: Mariam Mchugh MA\.br\Date and Time Co-Signed: 04/06/22 11:59 EDTCT Chest W contrast Javier 03-46-9266OVPUKCNBQT: 1. New subtle subcentimeter groundglass opacities in [...] any questions regarding this interpretation, please call [phone]. If you are unable to reach us at the number above, please feel free to contact [facility] at [phone].DIVISION OF RADIOLOGY* * *Final Report* * * DATE OF EXAM: Dec 16 2021 8:45AM [facility] 0539 - CT CHEST W [...] of an adrenal mass in the visualized puqiq-cu-fcmg. Fat-containing epigastric anterior abdominal hernia.. Map Plotter (topogram) images: No additional findings. DIVISION OF RADIOLOGYProvider, [facility] [place] - 12/16/2021 * * *Final Report* * * DATE OF EXAM: Dec 16 2021 8:45AM [facility] 0539 - CT CHEST W [...] of an adrenal mass in the visualized hlxaw-mf-aqqk. Fat-containing epigastric anterior abdominal hernia.. Map Plotter (topogram) images: No additional findings. IMPRESSION IMPRESSION: [...] any questions regarding this interpretation, please call [phone]. If you are unable to reach us at the number above, please feel free to contact [facility] eRadiology at [phone]. [facility] Neck W contrast Javier 49-90-6222ODUOOOQSQF: 1. Stable anterior neck treatment changes. 2. [...] any questions regarding this interpretation, please call [phone]. If you are unable to reach us at the number above, please feel free to contact [facility] eRadiology at [phone].DIVISION OF RADIOLOGY* * *Final Report* * * DATE OF EXAM: Dec 16 2021 8:33AM [facility] 0013 - CT NECK SOFT [...] or pathological neck lymphadenopathy. DIVISION OF RADIOLOGYProvider, [facility] [place] - 12/16/2021 * * *Final Report* * * DATE OF EXAM: Dec 16 2021 8:33AM [facility] 0013 - CT NECK SOFT [...] any questions regarding this interpretation, please call [phone]. If you are unable to reach us at the number above, please feel free to contact [facility] at [phone]. [facility]No Panel Informationon 47-92-1844Qzuuozadf ClinicRadiology Study observation (narrative)[facility] Vital Signs Date TimeVital SignValuePerforming VpejqohlaCvxtqxfj27-15-0715 11:16-0400Body ofkfgs778.1 cmAbram Fiore MD Work Phone: [facility] HospitalYnhjcnmpfq60-98-1316 11:16-0400Body mass index (BMI) [Ratio]23.8 kg/x2CgtkbcAbram Fiore MD Work Phone: [facility] HospitalLsgopgybnf36-43-3283 11:16-0400Body .86 kgAbram Fiore MD Work Phone: [facility] HospitalTabxnmnmha76-56-9940 11:18-0400Diastolic blood wxvrkbxa91 mm[Hg]Wyatt Garza MD Work Phone: [facility] SouthComment on above:-74-9214 11:18-0400Systolic blood eokxcedv554 mm[Hg]Wyatt Garza MD Work Phone: [facility] SouthComment on above:lmkravt89-39-7974 11:15-0400Body gpyjyo775.1 cmVfarshad Garza MD Work Phone: [facility]03-17-2025 11:15-0400Body mass index (BMI) [Ratio]25.5 kg/f5BqaysWyatt Garza MD Work Phone: [facility]03-17-2025 11:15-0400Body temperature 97.59 [degF]Wyatt Garza MD Work Phone: [facility]03-17-2025 11:15-0400Body .5 kgWyatt Garza MD Work Phone: [facility]03-17-2025 11:15-0400Heart rate77 /min Wyatt Garza MD Work Phone: [facility]03-17-2025 11:15-0400Respiratory rate 16 /minWyatt Garza MD Work Phone: [facility]03-17-2025 11:15-9093KrA5% (BldA) [Mass fraction]97 %Wyatt Garza MD Work Phone: [facility]09-16-2024 08:53-0400Body .1 cmAbram Fiore MD Work Phone: [place] [phone] 08:53-0400Body mass index (BMI) [Ratio]23.8 kg/j2UbfqdgAbram Fiore MD Work Phone: [place] [phone] 08:53-0400Body .86 kgAbram Fiore MD Work Phone: [place] [phone] 08:53-0400Diastolic blood woquazji78 mm[Hg]Abram Fiore MD Work Phone: [place] [address]Bcskcvprgf23-31-4331 08:53-0400Systolic blood sxkjyjmb266 mm[Hg]Abram Fiore MD Work Phone: [place] [address]Zzqvshpfje15-98-6553 11:41-0400Body wcczia622.1 cmVfarshad Garza MD Work Phone: [facility]08-23-2024 11:41-0400Body temperature 97.7 [degF]Wyatt Garza MD Work Phone: [facility]08-23-2024 11:41-0400Diastolic blood uyajnrzl72 mm[Hg]Wyatt Garza MD Work Phone: [facility]08-23-2024 11:41-0400Heart rate60 /min Wyatt Garza MD Work Phone: [facility]08-23-2024 11:41-0400Respiratory rate 16 /minWyatt Garza MD Work Phone: [facility]08-23-2024 11:41-4121GtM2% (BldA) [Mass fraction]98 %Wyatt Garza MD Work Phone: [facility]08-23-2024 11:41-0400Systolic blood diyzmfbo258 mm[Hg]Wyatt Garza MD Work Phone: [facility]05-24-2024 14:27-0400Body wdkbki884.1 cmVfarshad Garza MD Work Phone: [facility]05-24-2024 14:27-0400Body mass index (BMI) [Ratio]23.5 kg/x9SdmhuWyatt Garza MD Work Phone: [facility]05-24-2024 14:27-0400Body temperature 97.2 [degF]Wyatt Garza MD Work Phone: [facility]05-24-2024 14:27-0400Body gyzvzc53.05 kgWyatt Garza MD Work Phone: [facility]05-24-2024 14:27-0400Diastolic blood zfxkxiku57 mm[Hg]Wyatt Garza MD Work Phone: [facility]05-24-2024 14:27-0400Heart rate82 /min Wyatt Garza MD Work Phone: [facility]05-24-2024 14:27-0400Respiratory rate 16 /minWyatt Garza MD Work Phone: [facility]05-24-2024 14:27-7727LvL9% (BldA) [Mass fraction]98 %Wyatt Garza MD Work Phone: [facility]05-24-2024 14:27-0400Systolic blood xpnnmcvu799 mm[Hg]Wyatt Garza MD Work Phone: [facility]02-12-2024 10:07-0500Body rvjzij895.1 Jaime Garza MD Work Phone: [facility]02-12-2024 10:07-0500Body temperature 97.59 [degF]Wytat Garza MD Work Phone: [facility]02-12-2024 10:07-0500Body .6 kgWyatt Garza MD Work Phone: [facility]02-12-2024 10:07-0500Diastolic blood ukapzlyr72 mm[Hg]Wyatt Garza MD Work Phone: [facility]02-12-2024 10:07-0500Heart rate71 /min Wyatt Garza MD Work Phone: [facility]02-12-2024 10:07-0500Respiratory rate 16 /minWyatt Garza MD Work Phone: [facility]02-12-2024 10:07-2484LkQ5% (BldA) [Mass fraction]98 %Wyatt Garza MD Work Phone: [facility]02-12-2024 10:07-0500Systolic blood uydjddbr847 mm[Hg]Wyatt Garza MD Work Phone: [facility]02-09-2023 10:48-0500Body twwiqa219.1 Jaime Garza MD Work Phone: [facility]02-09-2023 10:48-0500Body temperature 97.59 [degF]Wyatt Garza MD Work Phone: [facility]02-09-2023 10:48-0500Body flmeeg11.58 kgWyatt Garza MD Work Phone: [facility]02-09-2023 10:48-0500Diastolic blood hjawiqdk671 mm[Hg]Wyatt Garza MD Work Phone: [facility]02-09-2023 10:48-0500Heart rate94 /min Wyatt Garza MD Work Phone: [facility]02-09-2023 10:48-0500Respiratory rate 16 /minWyatt Garza MD Work Phone: [facility]02-09-2023 10:48-9442RxO0% (BldA) [Mass fraction]95 %Wyatt Garza MD Work Phone: [facility]02-09-2023 10:48-0500Systolic blood srusuoay532 mm[Hg]Wyatt Garza MD Work Phone: [facility]08-11-2022 10:45-0400Body temperature 98.1 [degF]KVAIN Atkins MD Work Phone: [facility]08-11-2022 10:45-0400Body .22 kgKAVIN Atkins MD Work Phone: [facility]08-11-2022 10:45-0400Diastolic blood plbxwimd25 mm[Hg]KAVIN Atkins MD Work Phone: [facility]08-11-2022 10:45-0400Heart rate89 /min KAVIN Atkins MD Work Phone: [facility]08-11-2022 10:45-0400Respiratory rate 18 /Julio CesarKAVIN Atkins MD Work Phone: [facility]08-11-2022 10:45-6103GdV5% (BldA) [Mass fraction]100 %KAVIN Atkins MD Work Phone: [facility]08-11-2022 10:45-0400Systolic blood xztykfwk773 mm[Hg]KAVIN Atkins MD Work Phone: [facility]05-31-2022 11:34-0400Blood Pressure LocationSushil Edgar Jr. executive [facility] 05-31-2022 11:34-0400Diastolic blood amhcjiuy31 mm[Hg] Sushil Edgar Jr. executive [facility] 05-31-2022 11:34-0400Heart rate72 /Kurt Edgar Jr. executive [facility] 05-31-2022 11:34-0400Respiratory rate16 /Kurt Edgar Jr. executive [facility] 05-31-2022 11:34-0400Systolic blood cfoieexb876 mm[Hg] Sushil Edgar Jr. executive [facility] Encounters Encounter DateEncounter TypeCare ProviderFacilityStart: 08-28-2025 End: 99-39-0606Awmwqa Néstor Fiore MD Work Phone: [facility] OtolaryngologyStart: 08-28-2025 End: 73-61-3212Yswmtn Néstor Fiore MD Work Phone: [facility] OtolaryngologyStart: 08-28-2025 End: 28-31-9230Dfypca outpatient visit 25 minutesAbram Fiore MD Work Phone: noms Jayce OtolaryngologyComment on above:Non-seasonal allergic rhinitis due to other allergic trigger (Primary Dx); Chronic sinusitis, unspecified location; Tongue cancer (HCC); Bilateral impacted cerumenStart: 08-28-2025 End: 49-85-1361onxqlbqnmuNCIPVK H TIMMISNot AvailableStart: 01-21-2025 End: 04-17-4236legkwstsppTXSZFNU M HOYFacility:[facility] Hospitaltart: 01-21-2025 End: 28-05-3549Vuhmmi outpatient visit 25 minutesWyatt Garza MD Work Phone: Hematology/OncologyComment on above:History of head and neck cancer (Primary Dx); Lung nodulesStart: 01-18-2025 End: 34-74-4044Wpdnvdiwy encounteraHlima Nixon MD Work Phone: GastroenterologyComment on above:Follow Up Tests Results (Labs---->needs US, Fibroscan and OV)Start: 01-16-2025 End: 33-82-2862Gwtvfe-up encounterHalima Nixon MD Work Phone: GastroenterologyStart: 01-10-2025 End: 31-96-0216adkdafbscuNVZGJLR M HOYFacility:[facility]tart: 01-10-2025 End: 92-64-6085Btbopulmrc hospital visit by physicianArrival Time Radiology Work Phone: Radiology Pet CTComment on above:History of head and neck cancer [Z85.89]Start: 08-23-2024 End: 02-45-2157Umzgdz flowsDaniel Welch [facility]-A Work Phone: noms AUDStart: 08-23-2024 End: 49-39-0240Xfyksa Radhika Welch [facility] Work Phone: noms AUDStart: 08-23-2024 End: 20-60-6406Zbkhonie SupportDemartínez Soto Rebekah CCC-A Work Phone: noms AUDComment on above:Sensorineural hearing loss (SNHL) of both ears (Primary Dx)Start: 07-23-2024 End: 51-01-4286Nchtpa Néstor Fiore MD Work Phone: noms ENT NORWALKStart: 07-23-2024 End: 33-97-2139Irujve Néstor Fiore MD Work Phone: noms ENT NORWALKStart: 07-23-2024 End: 53-51-5659Tcydem outpatient visit 15 minutesAbram Fiore MD Work Phone: noms [facility] L[facility]Y [facility] FATIMA HOSPITALKComment on above:Tongue cancer (CMS/HCC) (Primary Dx)Start: 07-10-2024 End: 52-52-1347Qjavuw flowsheetWyrojelio Charles Apiphany CCC-A Work Phone: noMS AUDStart: 07-10-2024 End: 30-37-4480Xjhyxm Collective HealthheetNew Bridge Medical Centerill [facility]-A Work Phone: noms AUDStart: 07-10-2024 End: 36-71-5274Mvjilqbh SupportDeprovidence st. [facility] Charles Rebekah [facility]-A Work Phone: noms AUDComment on above:Sensorineural hearing loss (SNHL) of both ears (Primary Dx)Start: 06-29-2024 End: 70-54-1094yrqvldyvdqAMNQXRO M HOYFacility:[facility]tart: 06-29-2024 End: 18-00-2973Jvxefe outpatient visit 15 minutesWyatt Garza MD Work Phone: Hematology/OncologyComment on above:History of head and neck cancer (Primary Dx); Lung nodulesStart: 06-22-2024 End: 35-57-6136mtokiuvodiUNBTJOQ M HOYFacility:[facility]tart: 06-22-2024 End: 83-88-1266Rpbssflhoq hospital visit by physicianArrival Time Radiology Work Phone: Radiology Pet CTComment on above:History of head and neck cancer [Z85.89]Start: 62-76-4492Qzejqaiyv Javon Nixon MD Work Phone: GastroenterologyStart: 05-28-2024 End: 15-19-7059afiyadfgvjCHJPCTQ M HOYFacility:[facility]tart: 05-28-2024 End: 52-05-0032Xtjuzipijc hospital visit by physicianUs [facility] LoraRadiologyComment on above:Abnormal LFTs [R79.89]Start: 33-21-5122Kqoordoaa Javon Nixon MD Work Phone: GastroenterologyStart: 05-22-2024 End: 05-47-5272ybdkwtflzbRZGLTCW M HOYFacility:[facility]tart: 68-32-2091Rgtyvnoyv Javon Nixon MD Work Phone: GastroenterologyStart: 03-30-2024 End: 78-00-9764unsdpsedncIYCLREH M HOYFacility:[facility]art: 03-30-2024 End: 05-52-6211Vhzdnh outpatient visit 25 minutesWyatt Garza MD Work Phone: Hematology/OncologyComment on above:History of head and neck cancer (Primary Dx); Lung nodulesStart: 03-23-2024 End: 61-69-0043dpekhyswozYSWNFBU M HOYFacility:[facility]art: 03-23-2024 End: 87-20-6110Ybbntngurj hospital visit by physicianArrival Time Radiology Work Phone: Radiology Pet CTComment on above:Localized enlarged lymph nodes [R59.0]Start: 56-89-0346Uapavzhio encounterZeny Tom RN Hematology/OncologyComment on above:ResultsStart: 12-19-2023 End: 28-60-4751Ooqwgd outpatient visit 25 minutesWyatt Garza MD Work Phone: Hematology/OncologyComment on above:Localized enlarged lymph nodes (Primary Dx); Severe protein-calorie malnutrition (HCC); Malignant neoplasm of head, face and neck (HCC); History of head and neck cancerStart: 12-16-2023 End: 80-94-6825Wiwfoyojwm hospital visit by physicianArrival Time Radiology Work Phone: Radiology Pet CTComment on above:Lung nodules [R91.8] Start: 26-00-7026ewkrjlthuiNzwlmr L SmithFacility:EU BellevueStart: 03-10-2023 ambulatoryKIMBERLEON RENDONFacility:Q3Ntxes: 01-27-2023 End: 68-04-8300shwxewnkgsOY ELBA HOY .Facility:T0Wuhlj: 12-28-2022 End: 14-54-7730wgfrnvbyijTJ ELBA HOY .Facility:Y4Efdil: 12-28-2022 End: 27-85-9149qshohgbbluYP ELBA HOY .Facility:G0Pehhg: 12-16-2022 End: 18-47-3237Dlwdwh outpatient visit 25 minutesWyatt Garza MD Work Phone: Hematology/OncologyComment on above:Malignant neoplasm of head, face and neck (HCC) (Primary Dx); Lung nodules; Disorder of thyroidStart: 12-15-2022 End: 97-50-9329Fuczjjcnnw hospital visit by physicianArrival Time Radiology Work Phone: Radiology Pet CTComment on above:Malignant neoplasm of head, face and neck (HCC) [C76.0]Start: 37-73-9267fxcszpxmyzVG ELBA HOY . Facility:X6Qbhmo: 95-62-5348Whjdcfreji [facility] Comment on above:Chronic hepatitis C with hepatic coma (HCC) (Primary Dx)Start: 42-13-9873fbuakxheuwXtmvm [facility] MAINStart: 83-88-6374Nevzlk-up encounterEritessie [facility] Specialty PharmacyComment on above:SPP Hepatology - Follow-up (Epclusa treatment complete)Start: 06-17-2022 End: 92-76-5476Bmeaqow encounter Julio César Atkins MD Work Phone: Radiation OncologyComment on above:Effects of radiation, sequela (Primary Dx); Head and neck cancer (HCC)Start: 53-75-1617Tvjwkzzow encounterMarleni Atkins MD Work Phone: Radiation OncologyComment on above:Lab OrdersStart: 84-06-1159bfferexuvgHhpjn [facility] MAINStart: 42-50-8972Mvkvdz-up encounterBhavya [facility] Specialty PharmacyComment on above:SPP Hepatology - Follow-up (Epclusa - End of Treatment)Start: 04-06-2022 End: 76-71-8015povctaripaLvnvuw L SmithFacility:EU BellevueStart: 04-06-2022 End: 92-04-2605Eucssbp encounter Chantell Edgar Jr. executive [facility] Jose start: 67-21-8271Krortweah Javon Nixon MD Work Phone: GastroenterologyComment on above:ResultsStart: 47-38-5960Ezwqiuicd PharmacyMercy Health [facility] Hospital Specialty PharmacyComment on above:SPP Hepatology - Medication Refill (Epclusa)Start: 01-90-3365Zaasdohta PharmacyEriVeterans Health Administration Specialty PharmacyComment on above:SPP Hepatology - Medication Refill (Epclusa)Start: 07-97-0605Pbozifked Javon Nixon MD Work Phone: GastroenterologyComment on above:Follow UpStart: 12-16-2021 End: 16-29-5603Eepecojbuj hospital visit by physicianArrival Time Radiology Work Phone: Radiology Pet CTComment on above:Malignant neoplasm of head, face and neck (HCC) [C76.0]Start: 03-14-2018 End: 48-52-2626Efwbprq encounter procedureDogildardoaliyah Spence Astonity:[facility] Procedures DateProcedureProcedure DetailPerforming ClinicianStart: 52-64-6360Nx soft tissue neck w/contrast Lindsey Garza MD Work Phone: Start: 66-09-2046Xyfbz count complete auto&auto difrntl Marva Garza MD Work Phone: Start: 36-40-4506CCPKELAD FUNCTION TESTSDeWadsworth Hospital-A Work Phone: start: 39-07-4825Sp thorax w/contrast Lindsey Garza MD Work Phone: Start: 57-32-2844Bnbmd count complete auto&auto difrntl Marva Garza MD Work Phone: Start: 09-26-3949Cq abdominal real time w/image limitedHalima Nixon MD Work Phone: start: 59-92-8460Ap thorax w/contrast Lindsey Garza MD Work Phone: Start: 45-78-7144OWTOWZHZEK Milton Garza MD Work Phone: Start: 80-07-9897Qc soft tissue neck w/contrast Lindsey Garza MD Work Phone: Start: 28-47-7831Un thorax w/contrast Lindsye Garza MD Work Phone: Start: 57-98-2419Izxex count complete auto&auto difrntl Marva Garza MD Work Phone: Start: 26-71-0244Lt soft tissue neck w/contrast Lindsey Garza MD Work Phone: Start: 21-37-2788Ok thorax w/contrast materialWyatt Garza MD Work Phone: Start: 17-95-8814Szwkv count complete auto&auto difrntl wbcWyatt Garza MD Work Phone: Start: 59-23-9165Yuyjf depression screening assessment Halima Nixon MD Work Phone: start: 88-63-4685IaeycrvtevZpwyie Smith start: 93-13-6589UjxlqskcwrDnobvj Herve Flores biopsy of tongueRaysonu Edgar Jr. chemotherapyRaysonu Herve Flores Plan of Treatment DateCare ActivityDetailAuthorStart: 21-91-1650OGQ Vaccine (1 - 1-dose 75+ series)RSV Vaccine (1 - 1-dose 75+ series)[facility] Mary Hospitaltart: 70-62-8878Mdalucgz ScreeningDiabetes ScreeningMount St. Mary Hospitaltart: 69-72-9016Vrozlixn Screening Diabetes ScreeningMount St. Mary Hospitaltart: 08-27-2026 End: 19-45-2440Zcvampg encounter dwywcukpa41/21/2026 11:20 AM EDT Office Visit [facility] [address] [facility] [address] [place] [address] Abram Fiore MD [address] [facility] [email or web address]] [address] [place] [address] NOMTricia Eduardo OtolaryngologyStart: 02-26-2026 PROSTATE CANCER SCREENING DISCUSSIONPROSTATE CANCER SCREENING DISCUSSION [facility] 01-21-2026 End: 71-30-7551JSN W Auto Differential panel - BloodCOMPLETE BLOOD COUNT AND DIFFERENTIAL Lab Routine History of head and neck cancer Lung nodules Expected: 01/21/2026 (Approximate), Expires: 01/21/2026[facility] ClinicComment on above: Expected: 01/21/2026 (Approximate), Expires: 01/21/2026Start: 01-21-2026 End: 11-87-2861Uihxbkzexudwp metabolic 2000 panel - Serum or PlasmaCOMPREHENSIVE METABOLIC PANEL Lab Routine History of head and neck cancer Lung nodules Expected: 01/21/2026 (Approximate), Expires: 01/21/2026[facility] ClinicComment on above:Expected: 01/21/2026 (Approximate), Expires: 01/21/2026Start: 01-21-2026 End: 04-96-3941WH Chest W contrast IVCT CHEST W IVCON Radiology Routine History of head and neck cancer Lung nodules Expected: 01/21/2026 (Approximate), Expires: 02/20/2026[facility] ClinicComment on above:Expected: 01/21/2026 (Approximate), Expires: 02/20/2026Start: 01-21-2026 End: 64-01-8472VD Neck W contrast IVCT NECK SOFT TISSUE W IVCON Radiology Routine History of head and neck cancer Lung nodules Expected: 01/21/2026 (Approximate), Expires: 02/20/2026[facility] Work Phone: Comment on above:Expected: 01/21/2026 (Approximate), Expires: 02/20/2026Start: 01-20-2026 End: 63-48-5866Vspekv-up jnfzjraww49/16/2026 11:40 AM EDT Visit (SP) Office Hematology/Oncology [address] [facility] [address] [place] [address] Wyatt Garza MD [address] [place] [place] [address] [address] FOLLOW UP AFTER CT SCANHematology/OncologyComment on above:[address] FOLLOW UP AFTER CT SCANStart: 01-13-2026 End: 53-57-9020Tnzdezp encounter zusnnqseb94/09/2026 7:45 AM EDT Appointment Radiology Pet CT [address] [address] [place] [place] [address] CT CHEST AND NECKRadiology Pet CTComment on above:CT CHEST AND NECKStart: 01-10-2026 Screening for malignant neoplasm of lungLung Cancer ScreeningSelect [facility] Start: 70-53-2293FYNMDWCV SCREENDIABETES SCREENMount St. Mary Hospitaltart: 10-07-2025 End: 00-19-6228Zmfdgqk encounter spujwrclp62/01/2025 11:20 AM EST Office Visit [facility] [facility] [address] [facility] [address] [place] [address] Abram Fiore MD [address] [facility] [[email or web address]] [address] [place] [address] [facility] [place] OtolaryngologyStart: 08-28-2025 End: 61-13-9086Ncfougq encounter hwaxalpke38/22/2025 11:20 AM EDT Office Visit [facility] [address] [facility] [address] [place] [address] Abram Fiore MD [address] [facility] [[email or web address]] [address] [place] [address] ArrivedNOMS [place] OtolaryngologyComment on above:ArrivedStart: 69-89-5958Wenzfzyim vaccinationInfluenza Vaccine (Season Ended)[facility]: 62-05-7533Blvvdkpep for malignant neoplasm of lung Lung Cancer ScreeningMount St. Mary Hospitaltart: 05-24-2025 End: 73-66-5448Gmylhwpzk C virus RNA [Units/volume] (viral load) in Serum or Plasma by PAULA with probe detectionHEPATITIS C RNA QUANTIFICATION BY PCR, PLASMA/SERUM Lab Routine Chronic hepatitis C without hepaticcoma (HCC) Expected: 05/24/2025 (Approximate), Expires: 08/23/2025[facility] Work Phone: comment on above:Expected: 05/24/2025 (Approximate), Expires: 08/23/2025Start: 11-86-4244Yurxisrli for malignant neoplasm of lungLung Cancer ScreeningMount St. Mary Hospitaltart: 01-21-2025 End: 59-80-2500Tgsjie-up encounterHematology/OncologyComment on above:[address] up [address] scan6 month follow up after CT scan w/labsStart: 01-07-2025 End: 39-33-0267Nxeheb-up ckqyqskdm40/03/2025 8:30 AM EST Visit (SP) Office Hematology/Oncology [address] [place] [address] [address] [place], [place] [phone] Wyatt Garza MD [address] [facility] [place] [address] 6 [address] up [address] scanHematology/OncologyComment on above:6 [address] up [address] scanStart: 12-31-2024 End: 66-61-2983Ncbqnel encounter nidwvlcui95/24/2025 8:45 AM EST Appointment Radiology Pet CT [address] [place] [address] [place] [address] CT CHEST AND NECKRadiology Pet CTComment on above:CT CHEST AND NECKStart: 12-30-2024 End: 64-36-1687DIB W Auto Differential panel - BloodCOMPLETE BLOOD COUNT AND DIFFERENTIAL Lab Routine History of head and neck cancer Lung nodules Expected: 12/30/2024 (Approximate), Expires: 06/29/2025[facility] ClinicComment on above: Expected: 12/30/2024 (Approximate), Expires: 06/29/2025Start: 12-30-2024 End: 22-87-2487Ggyfwejcxuzgt metabolic 2000 panel - Serum or PlasmaCOMPREHENSIVE METABOLIC PANEL Lab Routine History of head and neck cancer Lung nodules Expected: 12/30/2024 (Approximate), Expires: 06/29/2025[facility] ClinicComment on above:Expected: 12/30/2024 (Approximate), Expires: 06/29/2025Start: 12-30-2024 End: 35-10-4522TJ Chest W contrast IVCT CHEST W IVCON Radiology Routine History of head and neck cancer Lung nodules Expected: 12/30/2024 (Approximate), Expires: 07/29/2025[facility] ClinicComment on above:Expected: 12/30/2024 (Approximate), Expires: 07/29/2025Start: 12-30-2024 End: 55-57-7890HI Neck W contrast IVCT NECK SOFT TISSUE W IVCON Radiology Routine History of head and neck cancer Lung nodules Expected: 12/30/2024 (Approximate), Expires: 07/29/2025[facility] Work Phone: Comment on above:Expected: 12/30/2024 (Approximate), Expires: 07/29/2025Start: 65-55-0575SXPKIFDI SCREENDIABETES SCREENMount St. Mary Hospitaltart: 17-63-7367Qtjgfieau for malignant neoplasm of lungLung Cancer ScreeningMount St. Mary Hospitaltart: 12-13-2024 End: 17-57-8997Xtuau-1-Fetoprotein [Mass/volume] in Serum or PlasmaALPHA FETOPROTEIN Lab Routine Fatty liver Expected: 12/13/2024 (Approximate), Expires: 03/14/2025[facility] Work Phone: comment on above:Expected: 12/13/2024 (Approximate), Expires: 03/14/2025Start: 12-13-2024 End: 95-01-0218NT Abdomen RUQUS ABD RIGHT UPPER QUADRANT Radiology Routine Fatty liver Expected: 12/13/2024 (Approximate), Expires: 07/12/2025[facility] Comment on above:Expected: 12/13/2024 (Approximate), Expires: 07/12/2025Start: 54-85-7685Fhxdqpg Directive DiscussionAdvance Directive DiscussionMount St. Mary Hospitaltart: 09-13-2024 End: 17-29-3520Kntwive encounter /07/2024 2:00 PM EST Office Visit [facility] [address] [place] [address] NOMS AUDStart: 08-23-2024 End: 01-07-4675Orbbzsee SupportNOSHRINERS HOSPITALS FOR CHILDREN AUDComment on above:ArrivedStart: 07-23-2024 End: 34-48-1924Qzfqdkv encounter procedureNOMS NICO JONESKComment on above: ArrivedStart: 07-10-2024 End: 91-82-7668Gnymvhwe Dhvqxth9707/10/2024 1:30 PM EDT Clinical Support [facility] [address] [facility] [place] [phone] Andreina Welch, [facility] [address] [facility] [place] [address] ArrivedNOSHRINERS HOSPITALS FOR CHILDREN AUDComment on above:ArrivedStart: 07-08-2024 Covid-19 Vaccine ()Covid-19 Vaccine () [facility]: 53-02-4574Cvgou-19 Vaccine ()Covid-19 Vaccine ()[facility]: 89-60-2513Bejfzsjaa vaccinationMount St. Mary Hospitaltart: 06-30-2024 End: 80-74-7114BWL W Auto Differential panel - BloodCOMPLETE BLOOD COUNT AND DIFFERENTIAL Lab Routine History of head and neck cancer Lung nodules Expected: 06/30/2024 (Approximate), Expires: 03/30/2025[facility] ClinicComment on above: Expected: 06/30/2024 (Approximate), Expires: 03/30/2025Start: 06-30-2024 End: 20-84-6344Kxgamavyqursw metabolic 2000 panel - Serum or PlasmaCOMPREHENSIVE METABOLIC PANEL Lab Routine History of head and neck cancer Lung nodules Expected: 06/30/2024 (Approximate), Expires: 03/30/[address] HospitalComment on above:Expected: 06/30/2024 (Approximate), Expires: 03/30/2025Start: 06-30-2024 End: 20-24-7227SP Chest W contrast IVCT CHEST W IVCON Radiology Routine History of head and neck cancer Lung nodules Expected: 06/30/2024 (Approximate), Expires: 04/29/2025[facility] Work Phone: Comment on above:Expected: 06/30/2024 (Approximate), Expires: 04/29/2025Start: 06-29-2024 End: 99-80-9625Oedzwz-up ofjuthncx17/23/2024 11:15 AM EDT Visit (SP) Office Hematology/Oncology [address] [place] [address] Wyatt Garza MD [address] [place] [place] [address] 3 MONTH FOLLOW UP AFTER CTHematology/OncologyComment on above:3 MONTH FOLLOW UP AFTER CTStart: 06-22-2024 End: 14-77-6663Dzefixw encounter /16/2024 7:45 AM EDT Appointment Radiology Pet CT [address] [address] [place] [place] [address] CT CHEST W IVRadiology Pet CTComment on above:CT CHEST W IVStart: 05-28-2024 End: 91-90-5835Blzstym encounter /22/2024 2:30 PM EDT Appointment Radiology [address] [place], [place] [id number] no spl chkf [facility] 05/21 Abnormal LFTs [R79.89]RadiologyComment on above:no spl chkf g 05/21 Abnormal LFTs [R79.89]Start: 05-21-2024 End: 01-18-2963Kfzecmlas C virus RNA [Units/volume] (viral load) in Serum or Plasma by PAULA with probe detectionHEPATITIS C RNA QUANTIFICATION BY PCR, PLASMA/SERUM Lab Routine Abnormal LFTs Chronic hepatitis C without hepatic coma (HCC) Expected: 05/21/2024 (Approximate), Expires: 08/20/2024[facility] Comment on above:Expected: 05/21/2024 (Approximate), Expires: 08/20/2024Start: 05-21-2024 End: 92-39-3258WZ Abdomen RUQUS ABD RIGHT UPPER QUADRANT Radiology Routine Abnormal LFTs Chronic hepatitis C without hepatic coma (HCC) Expected: 05/21/2024 (Approximate), Expires: 06/16/2025[facility] Work Phone: comment on above:Expected: 05/21/2024 (Approximate), Expires: 06/16/2025Start: 01-30-2024 End: 42-40-6326QPQFJGWCCO BLDCREATININE BLD Lab Routine Localized enlarged lymph nodes History of head and neck cancer Expected:01/30/2024, Expires: 01/17/2025 [facility] Work Phone: Comment on above:Expected: 01/30/2024, Expires: 01/17/2025Start: 01-30-2024 End: 86-23-7270YC Chest W contrast IVCT CHEST W IVCON Radiology Routine Localized enlarged lymph nodes History of head and neck cancer Expected: 01/30/2024, Expires: 01/17/2025[facility] Work Phone: Comment on above:Expected: 01/30/2024, Expires: 01/17/2025Start: 12-16-2023 End: 45-20-4039WLL W Auto Differential panel - BloodCBC + DIFF Lab Routine Lung nodules Expected: 12/16/2023 (Approximate), Expires: 12/16/2023[facility] Work Phone: Comment on above:Expected: 12/16/2023 (Approximate), Expires: 12/16/2023Start: 12-16-2023 End: 51-16-9673Zjjgztwoxykmm metabolic 2000 panel - Serum or PlasmaCOMP METABOLIC PANEL Lab Routine Lung nodules Expected: 12/16/2023 (Approximate), Expires: 12/16/2023[facility] Work Phone: Comment on above:Expected: 12/16/2023 (Approximate), Expires: 12/16/2023Start: 12-16-2023 End: 26-77-4474UW CHEST W IVCONCT CHEST W IVCON Radiology Routine Lung nodules Expected: 12/16/2023 (Approximate), Expires: 01/15/2024[facility] Work Phone: Comment on above:Expected: 12/16/2023 (Approximate), Expires: 01/15/2024Start: 12-16-2023 End: 71-24-2040Ox soft tissue neck w/contrast materialCT NECK SOFT TISSUE W IVCON Radiology Routine Lung nodules Expected: 12/16/2023 (Approximate), Expir es: 01/15/2024[facility] Work Phone: Comment on above:Expected: 12/16/2023 (Approximate), Expires: 01/15/2024Start: 65-78-3184Cbgmkvphx vaccinationLUNG CANCER SCREENING [facility]: 61-32-5765Qypbrvj Directive DiscussionAdvance Directive DiscussionMount St. Mary Hospitaltart: 24-37-0841Sxdetmuekj Health ScreeningBehavioral Health ScreeningMount St. Mary Hospitaltart: 68-42-3285Snkuddhuow Assessment Depression AssessmentMount St. Mary Hospitaltart: 62-80-9228Tzkue-19 Vaccine ()Covid-19 Vaccine ()[facility]: 01-78-3968Gqkfvsxzv vaccinationInfluenza Vaccine (#1)[facility]: 12-18-2022 End: 63-62-5350Dm thorax w/o contrast materialCT CHEST WO IVCON Radiology Routine Effects of radiation, sequela Head and neck cancer (HCC) Expected: 12/18/2022, Expires: 07/17/2023[facility] Work Phone: Comment on above:Expected: 12/18/2022, Expires: 07/17/2023Start: 83-71-3480Bpvhu depression screening assessmentDEPRESSION SCREENINGMount St. [facility] Hospitaltart: 13-74-6180Jllaocdyn vaccinationLUNG CANCER SCREENINGMount St. Mary Hospitaltart: 12-60-9781EQTZMZG DIRECTIVE DISCUSSIONADVANCE DIRECTIVE DISCUSSIONMount St. Mary Hospitaltart: 51-16-9508STGRMMTHBM ASSESSMENT DEPRESSION ASSESSMENTMount St. Mary Hospitaltart: 07-30-2022 End: 42-36-5274Ayxcgipbu C virus RNA [Units/volume] (viral load) in Serum or Plasma by PAULA with probe detectionHCV QUANT RNA BY PCR Lab Routine Chronic hepatitis C with hepatic coma (HCC) Expected: 07/30/2022 (Approximate), Expires: 09/29/2022[facility] Work Phone: comment on above:Expected: 07/30/2022 (Approximate), Expires: 09/29/2022tart: 01-50-6502Ibiucclov vaccinationMount St. Mary Hospitaltart: 06-09-2022 End: 29-95-3210Acqoshvaewj [Units/volume] in Serum or PlasmaTSH BLD Lab Routine Effects of radiation, sequela Expected: 06/09/2022, Expires: 08/09/2022[facility] Work Phone: Comment on above:Expected: 06/09/2022, Expires: 08/09/2022tart: 06-09-2022 End: 69-48-5281Esogaxtgr (T4) [Mass/volume] in Serum or PlasmaT4/THYROXINE BLOOD Lab Routine Effects of radiation, sequela Expected: 06/09/2022, Expires: 08/09/2022[facility] Work Phone: Comment on above:Expected: 06/09/2022, Expires: 08/09/2022tart: 82-55-5861HJPPQLC DIRECTIVE DISCUSSIONADVANCE DIRECTIVE DISCUSSIONMount St. [facility] Hospitaltart: 54-39-5531QUAUZUUYE AGE 65 AND OVER WITH 5YR LOOKBACK (#1)PNEUMOVAX AGE 65 AND OVER WITH 5YR LOOKBACK (#1)[facility] Start: 72-83-4289Uoensffld vaccinationINFLUENZA (#1)[facility]: 11-10-3094VXQZSGAGJ B (1 of 3 - Risk 3-dose series)HEPATITIS B (1 of 3 - Risk 3- dose series)[facility]: 21-87-6221Recemuvnd B Vaccine (1 of 3 - Risk 3-dose series)Hepatitis B Vaccine (1 of 3 - Risk 3-dose series)[facility] Start: 69-30-5191GQZ Vaccine (1 - 1-dose 60+ series)RSV Vaccine (1 - 1-dose 60+ series)[facility]: 28-62-5809KVH Vaccine (1 - Risk 60-74 years 1-dose series)RSV Vaccine (1 - Risk 60-74 years 1-dose series)[facility]: 03-24-8800FHOTHNHV CANCER SCREENING DISCUSSIONPROSTATE CANCER SCREENING DISCUSSIONMount St. Mary Hospitalt[facility]: 05-81-4986Snbtqhhb specific antigen measurement Prostate Cancer Screening DiscussionMount St. Mary Hospitaltart: 41-32-4369SKUCSULR VACCINE (1 of 2)SHINGRIX VACCINE (1 of 2)[facility]: 2001 COLOGUARD (FIT-DNA)COLOGUARD (FIT-DNA)[facility]: [address] [facility]: 26-48-5167CDJJWVPWYQ CANCER SCREENINGCOLORECTAL CANCER SCREENINGMount St. Mary Hospitalt[facility]: 74-56-9155SX COLONOGRAPHYCT COLONOGRAPHYMount St. Mary Hospitalt[facility]: 44-73-8007QOCSY OCCULT BLOOD FECAL OCCULT BLOODMount St. Mary Hospitaltart: 80-82-7303Jdvslfaz specific antigen measurementProstate Cancer Screening DiscussionMount St. Mary Hospitaltart: 2001 Screening for malignant neoplasm of colonMount St. Mary Hospitalt[facility]: [address] [facility]: 05-04-6164Iwomj panelLipid ScreeningMount St. Mary Hospitaltart: 55-09-1353GPMWZ SCREENLIPID SCREENMount St. Mary Hospitaltart: 17-29-6670STGELPNOW B (1 of 3 - Risk 3-dose series)HEPATITIS B (1 of 3 - Risk 3-dose series)[facility]: 36-27-3873Wzqhjspfazzo Vaccine: 50+ (1 of 2 - PCV)Pneumococcal Vaccine: 50+ (1 of 2 - PCV)[facility] Start: 90-72-1851IUCKLQMG VACCINE (1 of 2)SHINGRIX VACCINE (1 of 2)[facility]: 57-68-5811Xzhoe microalbumin profileCleNewark Hospitaltart: 32-11-6981Weksjpu ScreeningAnxiety ScreeningMount St. Mary Hospitaltart: [address] Depression [address]Dep[address] ScreeningMount St[address] Mary Hospitalt[facility]: 29-82-4396KVI SCREENINGHIV SCREENINGMount St. Mary Hospitalt[facility]: 33-32-2765Sppyjkgfdmmw Vaccine: 65+ (1 of 2 - PCV)Pneumococcal Vaccine: 65+ (1 of 2 - PCV)[facility]: 94-18-0229KSXWXYSPJCEG: 65+ (1 - PCV)PNEUMOCOCCAL: 65+ (1 - PCV)[facility] Start: 88-67-3264OMFRP-19 VACCINE (#1)COVID-19 VACCINE (#1)[facility] Start: 79-70-7643GPDXW-19 VACCINE (1)COVID-19 VACCINE (1)[facility]: 26-46-8381MNCCI-19 VACCINE (#1)COVID-19 VACCINE (#1)[facility]: 75-08-6217SPJAQDSHS AORTIC ANEURYSM SCREENINGABDOMINAL AORTIC ANEURYSM SCREENING [facility]: 94-98-6796Onkpkmbvf aortic aneurysm screeningAbdominal Aortic Aneurysm ScreeningOhioHealth Doctors HospitalVjjmydBmivd-7-Mjdoysbhvma [Mass/volume] in Serum or PlasmaALPHA FETOPROTEIN Lab Routine Fatty liver 01/10/2025 2:[address] [facility] Work Phone: cT Chest W contrast IVCT CHEST W IVCON Radiology Routine History of head and neck cancer Lung nodules 01/10/2025 3:[address] [facility] Work Phone: End: 87-29-1367TRPSLSW FUNCTION PNLHEPATIC FUNCTION PNL Lab Routine Hepatitis C antibody positive in blood Every 3 weeks for 2 Occurrences starting 01/26/2022 until 01/25/2023[facility] Work Phone: comlwxp on above:Every 3 weeks for 2 Occurrences starting 01/26/2022 until 01/25/2023 End: 05-45-9519Smcapelod C virus RNA [Units/volume] (viral load) in Serum or Plasma by PAULA with probe detectionHCV QUANT RNA BY PCR Lab Routine Hepatitis C antibody positive in blood Every 3 weeks for 2 Occurrences starting 01/26/2022 until 01/25/2023[facility] Work Phone: comjiiy on above:Every 3 weeks for 2 Occurrences starting 01/26/2022 until 01/25/2023Liver ultrasound attenuation by transient elastographyDDI VIBRATION CONTROLLED TRANSIENT ELASTOGRAPHY (VCTE) Endoscopy Routine Fatty liver Ordered: 06/18/2024[facility] ClinicComment on above:Ordered: 06/18/2024Thyrotropin [Units/volume] in Serum or PlasmaTSH BLD Lab Routine Effects of radiation, sequela 06/17/2022 10:58 AM [facility] Work Phone: Thyroxine (T4) [Mass/volume] in Serum or Plasma T4/THYROXINE BLOOD Lab Routine Effects of radiation, sequela 06/17/2022 10:58 AM [facility] Work Phone: [facility] Immunizations Immunization DateImmunizationNotesCare ProviderFacilityNEGATED: Highlighted row has not occurred!92-23-1594maecwiexh virus vaccine, unspecified formulation Sushil Edgar Jr. executive [facility] Payers DatePayer CategoryPayerPolicy [id number] (Managed Care) [id number] [id number] Health Insurance [id number] [id number] 2022Medicare [id number] 2022MedicaidMEDICAID [facility] MEDICAID [id number] 2021-Present [phone] [address] [place], [place] [id number] [id number] [id number] 91-28-2366Pxrovlh Health Pmhmtednd90165193910-71-8461Eovj-sph02-19-5971Skgqrdg [id number] 2.16.840.1.684944.3.579.2. [id number] 2.16.840.1.116672.3.57[id number] 2.16.840.1.005467.3.57[id number] 2.16.840.1.712296.3.57[id number] 2.16.840.1.787256.3.57[id number] 2.16.840.1.447845.3.57[id number] 2.16.840.1.003131.3.57[id number] 2.16.840.1.91[id number] 2.16.840.1.245271.3.579.2.531 Social History DateTypeDetailFacilityStart: 11-07-1971 End: 79-36-4034Njggzfs smoking status NHISSmokes tobacco dailySelect Medical [facility]ty [facility] Start: 11-07-1971 End: 20-75-1869Wyhvlkh of tobacco useCigarette SmokerMount St. Mary Hospitaltart: 10-13-2020 End: 61-64-2796Woipgfqofc smoked current (pack per day) - Titrlrhm7Agrlwrpno ClinicStart: 10-13-2020 End: 66-10-1570Vezdhei use and exposureUser of smokeless tobaccoSelect Medical Specialty Hospital [facility] Start: 12-17-2021 End: 28-02-3190Ibbdsve intakeCurrent drinker of alcohol (finding)[facility]: 35-98-3539Tzrlutw SDOH Alcohol CommentsociallyClevelmartin general hospital Clinic Start: 01-09-2018 End: 83-73-8995Vuyvyue Commentstarted [address]: 14-39-9397Ffm Assigned At BirthNot on fileMount St. Mary Hospitaltart: 01-10-2022 End: 22-01-2634Eavrrjth to SARS-CoV-2 (event)Unable to assessSelect Medical Specialty [facility] Start: 26-67-6233Hilsxtr smoking statusLight tobacco smoker (finding)Executive [facility] start: 12-19-2023 End: 57-52-7922Gnh Assigned At BirthMaleExnovant health/nhrmc [facility] start: 06-07-2022 End: 13-62-4370Tjefyodf to SARS-CoV-2 (event)Not sureMount St. Mary Hospitaltart: 22-88-4767Qxhcm Depression Screening Wjeprobxns1Xhkldqcyc ClinicStart: 03-28-2023 End: 69-79-2709Iqxwmfi use and exposureSmokeless tobacco non-userNOMS Healthcare Start: 09-75-2736Jffxzum CommentSmokes 6-10 cigarettes/dayNOMS HealthcareStart: 22-29-0339Nyswbki CommentCaffeine >4 cups/dayNOMS HealthcareStart: 07-20-2023 Alcoholic beverage intakeEx-drinker (finding)[facility] Clinical Notes 12-16-2021 to 08-28-2025 Note Date & OylxOfjbJegxsauo23-99-7770 History of Present illness Narrative* Abram Fiore MD - 08/28/2025 11:20 AM EDT Images from the original note were not included. Subjective Patient ID: Carson Morse is a 69 y.o. 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 Chronic hepatitis C ([facility]) 08/28/2025 Closed fracture of ankle 08/28/2025 Closed fracture of distal end of right fibula 08/28/2025 Closed fracture of upper end of fibula 08/28/2025 COPD (chronic obstructive pulmonary disease) ([facility]) 08/28/2025 Diarrhea 08/28/2025 Dysphagia 08/28/2025 Erectile dysfunction 08/28/2025 Facial fracture ([facility]) 08/28/2025 Odynophagia 08/28/2025 Opioid abuse ([facility]) 08/28/2025 Leukocytosis 08/28/2025 Poisoning by unspecified narcotics, accidental (unintentional), initial encounter ([facility]) 08/28/2025 Recurrent falls 08/28/2025 Solitary [...] [2] Past Surgical History: Procedure Laterality Date NV LARYNGOSCOPY,DIRECT,DX,OP MICROSCOP 12/27/2017 [3] No Known Allergies [...] file prior to visit. documented in this encounterSaint John's Saint Francis [id number] History of Present illness Narrative* Wyatt Garza MD - 01/21/2025 11:40 AM EDT Images from the original note were not included. NAME: Carson Morse CLINIC NO.: [id number] DATE OF SERVICE: January 21, 2025 ([place]) [...] organ systems. 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 Updated Visit, June 19, 2020: [...] which included preparing to see the patient, [id number] patient care, completing clinical documentation, performing a medically appropriate examination, counseling and educating the patient/family/caregiver, ordering medications, tests, or procedures, independently interpreting results (not separately reported), communicating results to the patient/family/caregiver, and care coordination (not separately reported). Wyatt Garza MD, CPE Hematology and Oncology Services Provided at: [place], [place] CC: Elba De La Cruz MD [address] [facility] [address] Halima Nixon MD documented in this encounterSelect Medical [facility]03-17-2025 NoteHNO ID: [id number] Author: WYATT GARZA MD Service: ? Author Type: Physician Type: Progress Notes Filed: 01/21/2025 11:32 Note Text: NAME: Carson Morse CLINIC NO.: [id number] DATE OF SERVICE: January 21, 2025 (Mirian) [...] January 21, 2025: Recovered (more content not included)...[facility]03-17-2025 Instructions* Patient Instructions* Wyatt Garza MD - 01/21/2025 11:[address] Neck Chest in 12 months Labs same day - include CBC, CMP RTC 1 week after with me to review documented in this encounterSelect Medical [facility]ty [facility]03-14-2025 Telephone encounter Note * Telephone Encounter - Ivette Lala - 01/18/2025 12:31 PM EDT Unable to lvm and no mychart [facility]03-14-2025 Miscellaneous Notes* Telephone Encounter - Ivette Lala [...] Thank you, NOLAN Meeks Noma, MD [facility] [place] Normal AFP Patient is overdue for US He needs to schedule Halima Nixon MD documented in this encounterSelect Medical Specialty [facility]03-14-2025 Telephone encounter Note * Telephone Encounter - Mary Villarreal RN - 01/18/2025 10:48 AM EDT Images from the original note were not included. Pt notified of results and recommendations and verbalized understanding. Schedulers, please call pt to schedule US, Fibroscan and OV. Orders are already placed. Thank you, NOLAN Meeks Noma, MD [facility] [place] Normal AFP Patient is overdue for US He needs to schedule Halima Nixon MD [facility] Work Phone: [phone] 517-619003-06-2025 History of Present illness Narrative* Roxann Mcgregor [...] PATIENT PRESENTS WITH AN IMPLANTABLE OR ATTACHED CATTLE SPRAYER: No RADIOLOGY DEPARTMENT: CT; Exam(s) Completed: Chest and Neck PERIPHERAL IV DATA: Site assessment: Clean,Dry and Intact, Site disposition Discontinued SIGNED BY: ANNABELLE Stewart) January 10, 2025 2:51 PM documented in this encounterSelect Medical Specialty [facility]03-06-2025 NoteHNO ID: [id number] Author: SONJA MELGAR RT (R) Service: ? [...] PATIENT PRESENTS WITH AN IMPLANTABLE OR ATTACHED CATTLE SPRAYER: No RADIOLOGY DEPARTMENT: CT; Exam(s) Completed: Chest and Neck PERIPHERAL IV DATA: Site assessment: Clean,Dry and Intact, Site disposition Discontinued SIGNED BY: ANNABELLE Stewart) January 10, 2025 2:51 [facility]03-06-2025 NoteHNO ID: [id number] Author: ROXANN MCGREGOR RN Service: ? Author [...] Morse DATE: January 10, 2025 TIME: 2:44 [facility]10-17-2024 History of Present illness Narrative* Andreina Welch, [facility] - 08/23/2024 11:15 AM EDT Hearing Aid Fitting: Pt fit with [employer] [address] [place] [address] T aids coupled to [...] quicker. Taught pt how to use his associate chemist, how to use the rocker to changevolume, and how to change domes and filters. Pt has flip phone so he cannot use the luis manuel. Pt did notwant to wear the aids home so aids were put in the case. Made follow up appointment and completed HCS paperwork documented in this encounterSaint John's Saint Francis [id number] History of Present illness Narrative* Abram Fiore MD - 07/23/2024 9:00 AM EDT Subjective Patient ID: Carson Morse is a 68 y.o. 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 Benign prostatic hyperplasia without urinary obstruction 06/21/2023 Current smoker 06/21/2023 Hoarse voice quality 06/21/2023 Lung nodules 12/18/2020 Malignant neoplasm of head, face and neck ([facility]) 12/18/2020 Mucositis due to radiation therapy 02/27/2018 Myelosuppression 03/24/2018 Severe protein-calorie malnutrition ([facility]) 02/27/2018 Closed right maxillary fracture ([facility]) 07/20/2023 Resolved Ambulatory Problems Diagnosis Date Noted History of tongue cancer 06/21/2023 Nocturia 06/21/2023 Past Medical History: Diagnosis Date COVID-19 10/2021 SCC (squamous cell carcinoma) 12/27/2017 Past Surgical History: Procedure Laterality Date NV LARYNGOSCOPY,DIRECT,DX,OP MICROSCOP 12/27/2017 No Known Allergies Current [...] all orders for this visit: Tongue cancer ([facility]) CADEN today documented in this encounterSaint John's Saint Francis [id number] History of Present illness Narrative* Andreina Welch, [...] 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 He will owe $250 to [facility]. Explained HCS process to pt and made HAF in 6 weeks documented in this encounterSaint John's Saint Francis [id number] Instructions* Patient Instructions* Svetlana Call - 06/29/2024 12:[address] Neck Chest in 12/2024 Labs same day - include CBC, CMP RTC 1 week after with me to review Pursue annual scans and visits after December 2024 documented in this encounterSelect Medical Specialty Hospital [facility]08-23-2024 History of Present illness Narrative* Wyatt Garza MD - 06/29/2024 11:15 AM EDT Images from the original note were not included. NAME: Carson Morse CLINIC NO.: [id number] DATE OF SERVICE: June 29, 2024 (Mirian) [...] organ systems. 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 Updated Visit, June 19, 2020: [...] which included preparing to see the patient, thxg-dw-heue patient care, completing clinical documentation, performing a medically appropriate examination, counseling and educating the patient/family/caregiver, ordering medications, tests, or procedures, independently interpreting results (not separately reported), communicating results to the patient/family/caregiver, and care coordination (not separately reported). Wyatt Garza MD, CPE Hematology and Oncology Services Provided at: [place], [place] Scribe Attestation: This note was scribed [...] CC: Elba De La Cruz MD [address] [facility] [address] Halima Nixon MD documented in this encounterSelect Medical Specialty Hospital [facility]08-23-2024 NoteHNO ID: [id number] Author: WYATT GARZA MD Service: ? Author Type: Physician Type: Progress Notes Filed: 06/30/2024 21:51 Note Text: NAME: Carson Morse CLINIC NO.: [id number] DATE OF SERVICE: June 29, 2024 (Mirian) [...] he is getting o (more content not included)...[facility]08-16-2024 History of Present illness Narrative* Roxann Mcgregor, [...] PATIENT PRESENTS WITH AN IMPLANTABLE OR ATTACHED CATTLE SPRAYER: No RADIOLOGY DEPARTMENT: CT; Exam(s) Completed: Chest PERIPHERAL IV DATA: Site assessment: Clean,Dry and Intact, Site disposition Discontinued SIGNED BY: RT Terry(R) June 22, 2024 8:54 AM documented in this encounterSelect Medical Specialty Hospital [facility]08-16-2024 NoteHNO ID: [id number] Author: SONJA MELGAR RT(R) Service: ? Author [...] PATIENT PRESENTS WITH AN IMPLANTABLE OR ATTACHED CATTLE SPRAYER: No RADIOLOGY DEPARTMENT: CT; Exam(s) Completed: Chest PERIPHERAL IV DATA: Site assessment: Clean,Dry and Intact, Site disposition Discontinued SIGNED BY: ANNABELLE Stewart) June 22, 2024 8:54 [facility]08-16-2024 NoteHNO ID: [id number] Author: ROXANN MCGREGOR RN Service: ? Author [...] Morse DATE: June 22, 2024 TIME: 8:31 [facility]08-06-2024 Telephone encounter Note* Telephone Encounter - Emily [...] Please review and sign Emily Hi RN [facility]08-06-2024 Miscellaneous Notes* Telephone Encounter - Emily Armstrong [...] sign Emily Hi RN documented in this encounterSelect Medical Specialty Hospital [facility]07-22-2024 History of Present illness Narrative* Melba Ag [...] PATIENT PRESENTS WITH AN IMPLANTABLE OR ATTACHED CATTLE SPRAYER: No RADIOLOGY DEPARTMENT: Ultrasound PERIPHERAL IV DATA: Not applicable SIGNED BY: Melba Ag RDMS May 28, 2024 1:49 PM documented in this encounterSelect Medical Specialty Hospital [facility]07-22-2024 NoteHNO ID: [id number] Author: MELBA AG RDMS Service: Radiology Author Type: Folder And Notcher Type: Progress Notes Filed: 05/28/2024 13:57 Note [...] PATIENT PRESENTS WITH AN IMPLANTABLE OR ATTACHED CATTLE SPRAYER: No RADIOLOGY DEPARTMENT: Ultrasound PERIPHERAL IV DATA: Not applicable SIGNED BY: Melba Ag RDMS May 28, 2024 1:49 [facility]07-18-2024 Telephone encounter Note* Telephone Encounter - Emily Armstrong RN - 05/24/2024 9:49 AM EDT ----- Message from Halima Nixon MD sent at 05/23/2024 2:56 PM EDT ----- Negative hep C RNA consistent with sustained response Repeat in one year Reviewed test results Pt read result message from Dr. Nixon via [employer]. Called and spoke to patient regarding test results and recommendation from Dr. Nixon Pt state dUS is sched for [facility] [place] Demonstrated understanding Dr. Lund, Orders submitted for repeat Hep C RNA Please review and sign Emily Hi RN [facility]07-18-2024 Miscellaneous Notes* Telephone Encounter - Emily Armstrong RN - 05/24/2024 9:49 AM EDT ----- Message from Halima Nixon MD sent at 05/23/2024 2:56 PM EDT ----- Negative hep C RNA consistent with sustained response Repeat in one year Reviewed test results Pt read result message from Dr. Nixon via [employer]. Called and spoke to patient regarding test results and recommendation from Dr. Nixon Pt state dUS is sched for [facility] at [place] Demonstrated understanding Dr. Lund, Orders submitted for repeat Hep C RNA Please review and sign Emily Hi RN documented in this encounterSelect Medical [facility]ty [facility]07-15-2024 Telephone encounter Note * Telephone Encounter - Emily Armstrong RN - 05/21/2024 10:14 AM EDT Called and updated pt on scheduling US Phone number provided for scheduling Also instructed to complete lab draw at [facility] facility Pt demonstrated understanding Emily Armstrong RN [facility]07-15-2024 Miscellaneous Notes* Telephone Encounter - Emily Armstrong [...] orders, Emily Hi RN documented in this encounterSelect Medical Specialty [facility]07-11-2024 Telephone encounter Note * Telephone Encounter - Emily Armstrong RN - 05/17/2024 3:56 PM EDT ----- Message from Halima Nixon MD sent at 05/17/2024 1:24 PM EDT ----- This patient needs RUQ US and HCV RNA ND Dr. Nixon, Please review and sign orders, Thanks, Emily Armstrong, RN [facility]05-24-2024 Instructions* Patient Instructions* Svetlana Rdz - 03/30/2024 2:[address] Chest with labs in 3 months RTC 1 week after to review documented in this encounterSelect Medical Specialty Hospital [facility]05-24-2024 History of Present illness Narrative* Wyatt Garza MD - 03/30/2024 2:45 PM EDT Images from the original note were not included. NAME: Carson Morse CLINIC NO.: [id number] DATE OF SERVICE: March 30, 2024 (Mirian) [...] organ systems. 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 Wyatt Garza MD, CPE Hematology and Oncology Services Provided at: [facility], [place], [place] Scribe Attestation: This note was scribed [...] CC: Elba De La Cruz MD [address] [facility] [address] Halima Nixon MD documented in this encounterSelect Medical Specialty Hospital [facility]05-24-2024 NoteHNO ID: [id number] Author: WYATT GARZA MD Service: ? Author Type: Physician Type: Progress Notes Filed: 04/01/2024 09:31 Note Text: NAME: Carson Morse CLINIC NO.: [id number] DATE OF SERVICE: March 30, 2024 (Mirian) [...] is going to tr (more content not included)...[facility]05-17-2024 History of Present illness Narrative* Sonja Melgar, [...] PATIENT PRESENTS WITH AN IMPLANTABLE OR ATTACHED CATTLE SPRAYER: No CREATININE: Creatinine Date Value Ref Range [...] contrast PATIENT DISCHARGED TO: Ambulatory patient, left [place] department area. A Diagnostic radioactive procedure has taken place, with no further precautions necessary other than routine body substance precautions. More information regarding radiation safety can be found usingthis link: [email or web address] 20Diagnostic%20Nuclear%20Medicine%20Procedures.pdf SIGNATURE: RT Terry(Porter) PATIENT NAME: Carson Morse DATE: March 23, 2024 TIME: 9:22 AM PAGER/CONTACT #: documented in this encounterSelect Medical Specialty Hospital [facility]05-17-2024 NoteHNO ID: [id number] Author: SONJA MELGAR RT(R) Service: ? Author [...] PATIENT PRESENTS WITH AN IMPLANTABLE OR ATTACHED CATTLE SPRAYER: No CREATININE: Creatinine Date Value Ref Range [...] contrast PATIENT DISCHARGED TO: Ambulatory patient, left [place] department area. A Diagnostic radioactive procedure has taken place, with no further precautions necessary other than routine body substance precautions. More information regarding radiation safety can be found using this link: [email or web address]-% 20Diagnostic%20Nuclear%20Medicine%20Procedures.pdf SIGNATURE: RT Terry(R) PATIENT NAME: Carson Morse DATE: March 23, 2024 TIME: 9:22 AM PAGER/CONTACT #:[facility]02-12-2024 Miscellaneous Notes* Telephone Encounter - Zeny Tom RN - 12/19/2023 12:17 PM EST Pt informed of [employer]'s message and denies any questions, needs or concerns at this time.(Pt had appt today with Frankie and discussed) Appointments verified. Zeny Tom RN * Telephone Encounter - Zeny Tom RN - 12/19/2023 12:17 PM EST ----- Message from Wyatt Garza MD sent at 12/17/2023 8:59 AM EST ----- Scans are stable - I will discuss at his appointment. documented in this encounterSelect Medical Specialty [facility]02-12-2024 Instructions* Patient Instructions* Svetlana Rdz - 12/19/2023 10:[address] Chest in 6 weeks RTC 1 week after to review If CT Chest clear then pursue routine annual visits documented in this encounterSelect Medical Specialty Hospital [facility]02-12-2024 History of Present illness Narrative* Wyatt Garza MD - 12/19/2023 10:30 AM EST Images from the original note were not included. NAME: Carson Morse CLINIC NO.: [id number] DATE OF SERVICE: December 19, 2023 (Mirian) [...] organ systems. 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 Updated Visit, June 19, 2020: [...] which included preparing to see the patient, lnwq-jz-ikwc patient care, completing clinical documentation, performing a medically appropriate examination, counseling and educating the patient/family/caregiver, ordering medications, tests, or procedures, independently interpreting results (not separately reported), communicating results to the patient/family/caregiver, and care coordination (not separately reported). Wyatt Garza MD, CPE Hematology and Oncology Services Provided at: [facility], [place], [place] Scribe Attestation: This note was scribed by Svetlana Rdz on December 19, 2023 under the direction and supervisionof Dr. Wyatt Garza. I attest that all of the information documented is correct to the best of my knowledge. Provider Attestation: I, Wyatt Garza MD, attest that all information documented by the above scribe is correct, and was supervised by me and under my direction. CC: Elba De La Cruz MD [address] [facility] [address] Halima Nixon MD documented in this encounterSelect Medical Specialty [facility]02-09-2024 History of Present illness Narrative* Roxann Mcgregor [...] 16, 2023 10:54 AM documented in this encounterSelect Medical Specialty Hospital [facility]02-21-2023 NotePROCEDURE: XR ANKLE RT MIN 3 VIEWS [...] Electronically authenticated by: DARRELL SPRING Date: 2022-12-28 07:42[facility]02-09-2023 Instructions* Patient Instructions* Wyatt Garza MD - 12/16/2022 11:[address] Neck Chest in 12 months labs same day Labs in 1 year with scans include CBC, CMP RTC in 12 months with me to review Patient to continue follow up with Dr. Leon RAWLS documented in this encounterSelect Medical Specialty [facility]02-09-2023 History of Present illness Narrative* Wyatt Garza MD - 12/16/2022 11:18 AM EST Images from the original note were not included. NAME: Carson Morse CLINIC NO.: [id number] DATE OF SERVICE: December 17, 2021 Some [...] organ systems. 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 Wyatt Garza MD, [place], [place] CC: Wyatt Garza MD [address] [place] [address] [place] [address] Elba De La Cruz MD [address] [facility] [address] Halima Nixon MD documented in this encounterSelect Medical Specialty [facility]02-08-2023 History of Present illness Narrative* Jazmine Galindo [...] 15, 2022 9:40 AM documented in this encounterSelect Medical Specialty Hospital [facility]09-09-2022 History of Present illness Narrative* Bhavya Cohen RPh - 07/16/2022 1:59 PM EDT Medication(s): Epclusa Total duration of treatment: 12 weeks Estimated Start Date: 01/23 Estimated Completion Date: 04/17 Estimated SVR 07/10/22 Due for SVR12 lab at this time. Bhavya Cohen RPh Clinical Pharmacist, Hepatology and Biologics [facility] P: ; F: Pool: P CC SPEC GROUP 2 ([id number]) documented in this encounterSelect Medical Specialty Hospital [facility]08-11-2022 History of Present illness Narrative* G Dragan [...] MD cc: Elba De La Cruz MD [address] [place] [id number] Timmis documented in this encounterSelect Medical Specialty Hospital [facility]08-03-2022 Miscellaneous Notes* Telephone Encounter - Tory Self RN - 06/09/2022 1:32 PM EDT Please sign pended labs for upcoming visit. Tory Self RN documented in this encounterSelect Medical Specialty Hospital [facility]06-09-2022 History of Present illness Narrative* Ruddy Gaffney - 04/15/2022 2:39 PM EDT [facility] Visit Assessment - Hepatology: Ivent [...] Gaffney CPhT [facility] documented in this encounterSelect Medical Specialty Hospital [facility]05-31-2022 Hospital Discharge instructions Patient Education 04/06/2022 11:59:09 [...] Follow these instructions at home: Medicines Take updy-sit-bbisoag and prescription medicines only as told by [...] or the blood stops without treatment. Take eqhj-meo-xtoohgo and prescription medicines only as told by your health care provider. Drink enough fluid to keep your urine clear or pale yellow. This information is not intended to replace advice given to you by your health care provider. Make sure you discuss any questions you have with your health care provider. Document Released: 10/24/2006 Document Revised: 03/19/2020 Document Reviewed: 11/26/2017 [email or web address] Patient Education 2019 [employer]. Follow Up Care 08/27/2021 11:36:33 With:Herve Flores MD, Sushil Degroot URO Address: [facility] [address] , [place] [address]- When:04/06/2023 Comments:w/fátima [facility] 05-16-2022 Miscellaneous Notes* Telephone Encounter - Raquel [...] RNA in 3 months documented in this encounterSelect Medical Specialty [facility]05-05-2022 History of Present illness Narrative* Ruddy Gaffney [...] no changes. [facility] Visit Assessment - Hepatology: Is pre-assessment?: No Is initial or refill assessment?: Yes Assessment to use: Refill Non-Clinical Assessment: Patient confirmed: Yes Med/dose confirmed: Yes Supplies needed: N/A Missed doses: No Estimated days supply on hand: 10 Next cycle/dose due: 03/12/2022 Copay amount: 0 Payment confirmed: Yes Address confirmed: Yes Delivery method: FedEx Delivery address: [address] [place] [id number] Delivery date: 03/15/2022 Patient has questions: No [...] if on ribavirin: N/A Ruddy Gaffney CPhT [employer], Inflammatory & Neurology [facility] documented in this encounterSelect Medical Specialty Hospital [facility]04-07-2022 History of Present illness Narrative* Ruddy Gaffney - 02/11/2022 1:31 PM EDT [facility] Specialty Refill Assessment Medication(s): Epclusa (2 of 3) Total duration of treatment: 12 weeks Estimated Start Date: 01/23 Estimated Completion Date: 04/17 Estimated SVR 07/10/22 Labs have been ordered but not yet collected. Goal remains to complete full treatment. Unable to assess compliance although patient does not report missed doses. Bhavya Cohen RPh Clinical Pharmacist, Hepatology and Biologics [facility] P: ; F: Pool: P CC SPEC GROUP 2 ([id number]) Therapy continues to be appropriate for disease, patient response, and medical condition. Verification of therapeutic benefit and effectiveness with current therapy. Adverse events, barriers in adherence, and side effects assessed and addressed. Will proceed with refill with no changes. [facility] Visit Assessment - Hepatology: Is pre-assessment?: No Is initial or refill assessment?: Yes Assessment to use: Refill Non-Clinical Assessment: Patient confirmed: Yes Med/dose confirmed: Yes Supplies needed: N/A Missed doses: No Estimated days supply on hand: 8 Next cycle/dose due: 02/12/2022 Copay amount: 0 Payment confirmed: Yes Address confirmed: Yes Delivery method: FedEx Delivery address: [address] [place] [address] Delivery date: 02/15/2022 Patient has questions: No Refill Assessment: Concurrent med therapy screening: Yes Adverse reactions and mitigation: Yes Hepatitis C RNA level at 12 weeks after end of therapy with additional testing as clinically indicated: Yes Hepatic function panel, eGFR: Yes CBC after 2 weeks if on ribavirin: N/A Ruddy Gaffney documented in this encounterSelect Medical Specialty [facility]03-24-2022 Miscellaneous Notes* Telephone Encounter - Raquel Xiao [...] this encounter. Bhavya Hi documented in this encounterSelect Medical Specialty [facility]02-09-2022 History of Present illness Narrative* Jazmine Galindo [...] 16, 2021 8:33 AM documented in this encounterSelect Medical Specialty Hospital - [facility] SouthEvaluation + Plan note Future Appointments Appointment Date:04/12/2023 08:00:00 AM Scheduled Provider:Sushil Edgar Jr., MD Location:[facility] Appointment Type:URO Office Visit Diagnostic Tests Pending * PSA Total 04/06/22 [facility] [facility] evaluation note* Diagnosis Hepatitis C antibody positive in blood- Primary [facility] Diagnosis Chronic hepatitis C without hepatic coma (HCC)- Primary Chronic hepatitis C without mention of hepatic coma [facility] Diagnosis Effects of radiation, sequela- Primary [facility]* Diagnosis Effects of radiation, sequela- Primary Head and neck cancer (HCC) Malignant neoplasm of head, face, and neck [facility] Diagnosis Chronic hepatitis C with hepatic coma (HCC)- Primary Chronic hepatitis C with hepatic coma [facility]* Diagnosis Malignant neoplasm of head, 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, face, and neck Lung nodules Other nonspecific abnormal finding of lung field Disorder of thyroid Unspecified disorder of thyroid [facility] Diagnosis Localized enlarged lymph nodes- Primary Enlargement of lymph nodes Severe protein-calorie malnutrition (HCC) Other severe protein-calorie malnutrition Malignant neoplasm of head, 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, face, and neck History of head and neck cancer [facility] Diagnosis History of head and neck cancer- Primary Lung nodules Other nonspecific abnormal finding of lung field [facility]* Diagnosis Chronic hepatitis C without hepatic coma (HCC)- Primary Chronic hepatitis C without mention of hepatic coma Abnormal LFTs Other abnormal blood chemistry [facility] Diagnosis Chronic hepatitis C without hepatic coma (HCC)- Primary Chronic hepatitis C without mention of hepatic coma [facility] Diagnosis Abnormal LFTs Other abnormal blood chemistry Chronic hepatitis C without hepatic coma (HCC) Chronic hepatitis C without mention of hepatic coma [facility] Diagnosis Fatty liver- Primary Other chronic nonalcoholic liver disease [facility] Diagnosis History of head and neck cancer- Primary Lung nodules Other nonspecific abnormal finding of lung field [facility]* Diagnosis History of head and neck cancer Lung nodules Other nonspecific abnormal finding of lung field [facility] Diagnosis Localized enlarged lymph nodes Enlargement of lymph nodes History of head and neck cancer [facility]* Diagnosis Lung nodules Other nonspecific abnormal finding of lung field documented [facility] Diagnosis Malignant neoplasm of head, 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, face, and neck Lung nodules Other nonspecific abnormal finding of lung field Disorder of thyroid Unspecified disorder of thyroid documented [facility] Diagnosis Sensorineural hearing loss (SNHL) of both ears- Primary [facility]* Diagnosis 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, unspecified site documented [facility] this [facility]* Diagnosis Sensorineural hearing loss (SNHL) of both ears- Primary documented in this encounter [facility]* Diagnosis History of head and neck cancer Lung nodules Other nonspecific abnormal finding of lung field Fatty liver Other chronic nonalcoholic liver disease documented [facility] this [facility] Diagnosis History of head and neck cancer- Primary Lung nodules Other nonspecific abnormal finding of lung field documented [facility] this [facility]* Diagnosis Non-seasonal allergic rhinitis due to other allergic trigger- Primary Chronic sinusitis, unspecified location Tongue cancer (HCC) Malignant neoplasm of tongue, unspecified site Bilateral impacted cerumen Impacted cerumen documented in this encounter [facility] Narrative No data available for this section [facility] reason for referral (narrative)* Diagnostic Procedure Only (Routine) - AuthorizedSpecialtyDiagnoses / ProceduresReferred By Contact Referred To [facility] Diagnoses Abnormal LFTs Chronic hepatitis C without hepatic coma (HCC) Procedures US ABD RIGHT UPPER QUADRANT US ABDOMINAL [place] W/[place] [address] [place] [address] [place] [address] Referral IDStatusReasonStart DateExpiration DateVisits RequestedVisits [id number] Auto-Generated Referral / [facility] for referral (narrative)* Diagnostic Procedure Only (Routine) - ClosedSpecialtyDiagnoses / ProceduresReferred By ContactReferred To [facility] Diagnoses Abnormal LFTs Chronic hepatitis C without hepatic coma (HCC) Procedures US ABD RIGHT UPPER QUADRANT US ABDOMINAL REAL TIME W/IMAGE LIMITED Halima Nixon [place] [id number] [place] [phone] [place] [address] Referral IDStatusReasonStart DateExpiration DateVisits RequestedVisits [id number] Auto-Generated Referral / [facility] (narrative)* Outpatient Procedure (Routine) - New RequestSpecialtyDiagnoses / ProceduresReferred By ContactReferred To [facility] Diagnoses Fatty liver Procedures DDI VIBRATION CONTROLLED TRANSIENT ELASTOGRAPHY (VCTE) LIVER ELASTOGRAPHY W/O IMAG W/I&R Halima Nixon [place] [id number] [place] [phone] [facility] [place] [address] [place], [place] [id number] Referral IDStatusReasonStart DateExpiration DateVisits RequestedVisits [id number] Request Auto-Generated Referral / * Diagnostic Procedure Only (Routine) - New RequestSpecialtyDiagnoses / ProceduresReferred By ContactReferred To [facility] Diagnoses Fatty liver Procedures US ABD RIGHT UPPER QUADRANT US ABDOMINAL REAL [place] W/[place] [address] [place] [address] [place] [address] Referral IDStatusReasonStart DateExpiration DateVisits RequestedVisits [id number] Request Auto-Generated Referral / [facility] Summary Purpose Family History No Family History [...] COMPUTED TOMOGRAPHY THORAX W/CONTRAST Wyatt Garza MD [address] [place] [address] [address] [id number] [place] [address] Referral IDStatusReasonStart DateExpiration DateVisits RequestedVisits [id number] Auto-Generated Referral [id number] / ProceduresReferred By ContactReferred To [facility] Diagnoses Malignant neoplasm of head, face and neck (HCC) Lung nodules Procedures CT NECK SOFT TISSUE W IVCON CT SOFT TISSUE NECK W/CONTRAST MATERIAL Wyatt Garza MD [address] [place] [address] [address] [place], [facility] [place] [place] [address] Referral IDStatusReasonStart DateExpiration DateVisits RequestedVisits [id number] Auto-Generated Referral [id number] / ProceduresReferred By ContactReferred To [facility] Diagnoses History of head and neck cancer Lung nodules Procedures CT CHEST W IVCON DIAGNOSTIC COMPUTED TOMOGRAPHY THORAX W/CONTRAST Wyatt Garza MD [address] [place] [address] [place] [address] [place] [address] Referral IDStatusReasonStart DateExpiration DateVisits RequestedVisits [id number] Auto-Generated Referral [id number] / ProceduresReferred By ContactReferred To [facility] Diagnoses Localized enlarged lymph nodes History of head and neck cancer Procedures CT CHEST W IVCON DIAGNOSTIC COMPUTED TOMOGRAPHY THORAX W/CONTRAST Abhyankar, Wyatt, MD [address] [facility] [place] [address] [place] [address] Referral IDStatusReasonStart DateExpiration DateVisits RequestedVisits [id number] Auto-Generated Referral [id number] / ProceduresReferred By ContactReferred To [facility] Diagnoses Lung nodules Procedures CT NECK SOFT TISSUE W IVCON CT SOFT TISSUE NECK W/CONTRAST MATERIAL Wyatt Garza MD [address] [facility] [place] [place] [address] Ct Imaging Referral IDStatusReasonStart DateExpiration DateVisits RequestedVisits [id number] Auto-Generated Referral [id number] / ProceduresReferred By ContactReferred To [facility] Diagnoses Lung nodules Procedures CT CHEST W IVCON DIAGNOSTIC COMPUTED TOMOGRAPHY THORAX W/CONTRAST Wyatt Garza MD [address] [facility] [place] [address] Ct Imaging Referral IDStatusReasonStart DateExpiration DateVisits RequestedVisits [id number] Auto-Generated Referral [id number] / ProceduresReferred By ContactReferred To [facility] Diagnoses Effects of radiation, sequela Head and neck cancer (HCC) Procedures CT CHEST WO IVCON DIAGNOSTIC COMPUTED TOMOGRAPHY THORAX W/O Marleni Calhoun MD [address] [facility] [place] [place] [address] Ct Imaging Referral IDStatusReasonStart DateExpiration DateVisits RequestedVisits [id number] Review Auto-Generated Referral Additional Source Comments (unrecognized sect ion and content) No Status Records FoundNo Status Records FoundNo Status Records FoundNo Status Records FoundNo Status Records Found INFORMATION SOURCE (unrecogn ized section and content) DATE CREATED AUTHOR 03/20/2019 [facility] DATE CREATED AUTHOR AUTHOR'S ORGANIZ ATION 03/07/2023 [facility] DATE CREATED AUTHOR AUTHOR'S ORGANIZ ATION 03/17/2023 [facility] DATE CREATED AUTHOR AUTHOR'S ORGANIZ ATION 02/02/2025 [facility] DATE CREATED AUTHOR AUTHOR'S ORGANIZ ATION 08/30/2025 [facility] EPIC Source Comments (unrecognize d section and content) In the event this informatio n is protected by the Federal Confidentiality of Alcohol and Drug Abuse Patient Records regulations: The Federal rules restrict any use of the information to criminally investigate or prosecute any alcohol or drug abuse patient.[facility] the event this information is protected by the Federal Confidentiality of Alcohol and Drug Abuse Patient Records regulations: The Federal rules restrict any use of the information to criminally investigate or prosecute any alcohol or drug abuse patient.[facility] the event this information is protected by the Federal Confidentiality of Alcohol and Drug Abuse Patient Records regulations: The Federal rules restrict any use of the information to criminally investigate or prosecute any alcohol or drug abuse patient.[facility] the event this information is protected by the Federal Confidentiality of Alcohol and Drug Abuse Patient Records regulations: The Federal rules restrict any use of the information to criminally investigate or prosecute any alcohol or drug abuse patient.[facility] the event this information is protected by the Federal Confidentiality of Alcohol and Drug Abuse Patient Records regulations: The Federal rules restrict any use of the information to criminally investigate or prosecute any alcohol or drug abuse patient.[facility] the event this information is protected by the Federal Confidentiality of Alcohol and Drug Abuse Patient Records regulations: The Federal rules restrict any use of the information to criminally investigate or prosecute any alcohol or drug abuse patient.[facility] the event this information is protected by the Federal Confidentiality of Alcohol and Drug Abuse Patient Records regulations: The Federal rules restrict any use of the information to criminally investigate or prosecute any alcohol or drug abuse patient.[facility] the event this information is protected by the Federal Confidentiality of Alcohol and Drug Abuse Patient Records regulations: The Federal rules restrict any use of the information to criminally investigate or prosecute any alcohol or drug abuse patient.[facility] the event this information is protected by the Federal Confidentiality of Alcohol and Drug Abuse Patient Records regulations: The Federal rules restrict any use of the information to criminally investigate or prosecute any alcohol or drug abuse patient.[facility] the event this information is protected by the Federal Confidentiality of Alcohol and Drug Abuse Patient Records regulations: The Federal rules restrict any use of the information to criminally investigate or prosecute any alcohol or drug abuse patient.[facility] the event this information is protected by the Federal Confidentiality of Alcohol and Drug Abuse Patient Records regulations: The Federal rules restrict any use of the information to criminally investigate or prosecute any alcohol or drug abuse patient.[facility] the event this information is protected by the Federal Confidentiality of Alcohol and Drug Abuse Patient Records regulations: The Federal rules restrict any use of the information to criminally investigate or prosecute any alcohol or drug abuse patient.[facility] the event this information is protected by the Federal Confidentiality of Alcohol and Drug Abuse Patient Records regulations: The Federal rules restrict any use of the information to criminally investigate or prosecute any alcohol or drug abuse patient.[facility] the event this information is protected by the Federal Confidentiality of Alcohol and Drug Abuse Patient Records regulations: The Federal rules restrict any use of the information to criminally investigate or prosecute any alcohol or drug abuse patient.[facility] the event this information is protected by the Federal Confidentiality of Alcohol and Drug Abuse Patient Records regulations: The Federal rules restrict any use of the information to criminally investigate or prosecute any alcohol or drug abuse patient.[facility] the event this information is protected by the Federal Confidentiality of Alcohol and Drug Abuse Patient Records regulations: The Federal rules restrict any use of the information to criminally investigate or prosecute any alcohol or drug abuse patient.[facility] the event this information is protected by the Federal Confidentiality of Alcohol and Drug Abuse Patient Records regulations: The Federal rules restrict any use of the information to criminally investigate or prosecute any alcohol or drug abuse patient.[facility] the event this information is protected by the Federal Confidentiality of Alcohol and Drug Abuse Patient Records regulations: The Federal rules restrict any use of the information to criminally investigate or prosecute any alcohol or drug abuse patient.[facility] the event this information is protected by the Federal Confidentiality of Alcohol and Drug Abuse Patient Records regulations: The Federal rules restrict any use of the information to criminally investigate or prosecute any alcohol or drug abuse patient.[facility] the event this information is protected by the Federal Confidentiality of Alcohol and Drug Abuse Patient Records regulations: The Federal rules restrict any use of the information to criminally investigate or prosecute any alcohol or drug abuse patient.[facility] the event this information is protected by the Federal Confidentiality of Alcohol and Drug Abuse Patient Records regulations: The Federal rules restrict any use of the information to criminally investigate or prosecute any alcohol or drug abuse patient.[facility] the event this information is protected by the Federal Confidentiality of Alcohol and Drug Abuse Patient Records regulations: The Federal rules restrict any use of the information to criminally investigate or prosecute any alcohol or drug abuse patient.[facility] the event this information is protected by the Federal Confidentiality of Alcohol and Drug Abuse Patient Records regulations: The Federal rules restrict any use of the information to criminally investigate or prosecute any alcohol or drug abuse patient.[facility] the event this information is protected by the Federal Confidentiality of Alcohol and Drug Abuse Patient Records regulations: The Federal rules restrict any use of the information to criminally investigate or prosecute any alcohol or drug abuse patient.[facility] the event this information is protected by the Federal Confidentiality of Alcohol and Drug Abuse Patient Records regulations: The Federal rules restrict any use of the information to criminally investigate or prosecute any alcohol or drug abuse patient.[facility] the event this information is protected by the Federal Confidentiality of Alcohol and Drug Abuse Patient Records regulations: The Federal rules restrict any use of the information to criminally investigate or prosecute any alcohol or drug abuse patient.[facility] the event this information is protected by the Federal Confidentiality of Alcohol and Drug Abuse Patient Records regulations: The Federal rules restrict any use of the information to criminally investigate or prosecute any alcohol or drug abuse patient.[facility] Reason for Visit (unrecogniz ed section and content) ReasonCommentsFollow UpReasonOnset DateCommentsSPP Hepatology - Medication Xntewo8602/11/2022EpclusaReasonOnset DateCommentsK[facility]XV[facility] - Medication Ohpcfj5503/11/2022EpclusaReasonCommentsResultsReasonOnset Date[facility] - [facility]-up04/15/2022Epclusa - End of TreatmentReasonCommentsLab OrdersReasonCommentsHead and Neck CancerReasonOnset Date[facility] - [facility]-up07/16/2022Epclusa treatment completeReasonCommentsHead [...] 40-54 MIN EST PATIENT Wyatt Garza MD [address] [place] [address] [place] [address] Wyatt Garza MD [facility] [place] [address] Referral IDStatusReasonStart DateExpiration DateVisits RequestedVisits [id number]/1/20235/10/[id number] and Neck Cancer1 year follow upReasonCommentsRadiology USSpecialtyDiagnoses / ProceduresReferred By ContactReferred To [facility] Diagnoses Abnormal LFTs Chronic hepatitis C without hepatic coma (HCC) Procedures US ABD RIGHT UPPER QUADRANT US ABDOMINAL REAL [place] W/[place] [address] [place] [address] [place] [address] Referral IDStatusReasonStfairchild air force base DateExpiration DateVisits RequestedVisits [id number] Auto-Generated Referral /[id number] and Neck Cancer3 month follow upReason CommentsRadiology CTSpecialtyDiagnoses / ProceduresReferred By ContactReferred To [facility] Diagnoses History of head and neck cancer Lung nodules Procedures CT CHEST W IVCON DIAGNOSTIC COMPUTED TOMOGRAPHY THORAX W/CONTRAST Wyatt Garza MD [address] [facility] [place] [place] [address] Ct Imaging [facility] Referral IDStatusReasonStfairchild air force base DateExpiration DateVisits RequestedVisits [id number] Auto-Generated Referral /[id number] / ProceduresReferred By ContactReferred To [facility] Diagnoses Localized enlarged lymph nodes History of head and neck cancer Procedures CT CHEST W IVCON DIAGNOSTIC COMPUTED TOMOGRAPHY THORAX W/CONTRAST Wyatt Garza MD [address] [facility] [place] [address] Ct Imaging [facility] Referral IDStatusReasonStfairchild air force base DateExpiration DateVisits RequestedVisits [id number] Auto-Generated Referral /[id number] CTSpecialtyDiagnoses / Procedures Referred By ContactReferred To Contact[facility]AG[facility] Diagnoses Lung nodules Procedures CT NECK SOFT TISSUE W IVCON CT SOFT TISSUE NECK W/CONTRAST MATERIAL Wyatt Garza MD [address] [facility] [place] [address] [place] [address] Referral IDStatusReasonStart DateExpiration DateVisits RequestedVisits [id number] Auto-Generated Referral [id number] / ProceduresReferred By ContactReferred To Contact[facility]AG[facility] Diagnoses Malignant neoplasm of head, face and neck (HCC) Lung nodules Procedures CT NECK SOFT TISSUE W IVCON CT SOFT TISSUE NECK W/CONTRAST MATERIAL Wyatt Garza MD [address] [place] [address] [place] [address] Ct Imaging [place] [address] Referral IDStatusReasonStart DateExpiration DateVisits RequestedVisits [id number] Auto-Generated Referral [id number] CTSpecialtyDiagnoses / Procedures Referred By ContactReferred To ContactCT IMAGING Diagnoses Lung nodules Procedures CT CHEST W IVCON CAT SCAN OF CHEST CONTRAST Wyatt Garza MD [address] [place] [address] [place] [address] Ct Imaging [place] [address] Referral IDStatusReasonStfairchild air force base DateExpiration DateVisits RequestedVisits [id number] Auto-Generated Referral /[id number] yr cancer checkSpecialtyDiagnoses / ProceduresReferred By ContactReferred To Contact[facility]AG[facility] Diagnoses History of head and neck cancer Lung nodules Procedures CT NECK SOFT TISSUE W IVCON CT SOFT TISSUE NECK W/CONTRAST MATERIAL Wyatt Garza MD [address] [place] [address] [place] [address] Phone: tel: fax: [facility] [place] [address] Referral IDStatusReasonStfairchild air force base DateExpiration DateVisits RequestedVisits [id number] Auto-Generated Referral /[id number] Up Tests ResultsLabs---->needs US, Fibroscan and OVReasonCommentsThroat ProblemThroat and ear clogged Care Teams (unrecognized sec tion and content) Team MemberRelationshipSpecialtyStart DateEnd Date Elba De La Cruz MD [address] [place] [address] PCP - GeneralFamily Practice01/04/18Team MemberRelationshipSpecialtyStart DateEnd Date Elba De La Cruz MD [address] [place] [address] PCP - GeneralFamily Practice01/04/18Team MemberRelationshipSpecialtyStart DateEnd Date Elba De La Cruz MD [address] [place] [address] PCP - GeneralFamily Practice01/04/18Team MemberRelationshipSpecialtyStart DateEnd Date Elba De La Cruz MD [address] [place] [address] PCP - GeneralFamily Practice01/04/18Team MemberRelationshipSpecialtyStart DateEnd Date Elba De La Cruz MD [address] [place] [address] PCP - GeneralFamily Medicine01/04/18Team MemberRelationshipSpecialtyStart DateEnd Date Elba De La Cruz MD [address] [place] [address] PCP - GeneralFamily Medicine01/04/18Team MemberRelationshipSpecialtyStart DateEnd Date [...] Elba De La Cruz MD [address] [place] [address] PCP - GeneralFamily Medicine03/15/23am MemberRelationshipSpecialtyStart DateEnd Date Elba De La Cruz MD [address] [place] [address] PCP - GeneralFamily Medicine03/15/23Team MemberRelationshipSpecialtyStart DateEnd Date Elba De La Cruz MD [address] [facility] [place] [address] PCP - GeneralFamily Medicine03/15/23Team MemberRelationshipSpecialtyStart DateEnd Date Elba De La Cruz MD [address] [facility] [place] [address] PCP - GeneralFamily Medicine03/15/23Team MemberRelationshipSpecialtyStart DateEnd Date Elba De La Cruz MD PCP - GeneralFamily Medicine01/04/18Team MemberRelationshipSpecialtyStart DateEnd Date Elba De La Cruz MD PCP - GeneralFamily Medicine01/04/18Team MemberRelationshipSpecialtyStart DateEnd Date Elba De La Cruz MD PCP - GeneralFamily Medicine01/04/18Team MemberRelationshipSpecialtyStart DateEnd Date Elba De La Cruz MD [address] [facility] [place] [address] PCP - GeneralFamily Cdrgdtbl30/16/25Team MemberRelationshipSpecialtyStart Date End Date Elba De La Cruz MD [address] [facility] [place] [address] PCP - GeneralFamily Fzodjewh62/16/25 FOR RECORDS PERTAINING TO PATIENTS WHO ARE [...] ON THE PRIMARY CLINICAL RECORDS. [facility] [facility]. provides no warranty or guarantee of the accuracy or completeness of information in this document.
--- OUTSIDE RECORDS SUMMARY | 2025-09-04 06:59 | XMS_ITS | Clinical Summary ---
Author Organization [facility] Address [address] [place] [address] Care Team Providers Care Compression Molding Machine Tender Name Role Phone Bird Crouch MD Primary Care Provider [phone] Allergies No known active allergies Medications MedicationSigDispense QuantityRefillsLast FilledStart DateEnd DateStatus tamsulosin (FLOMAX) 0.4 mg Take 1 capsule by mouth every afternoon.4Active levoFLOXacin (LEVAQUIN) 750 mg tablet Take 750 mg by mouth once daily.Active Active Problems ProblemNoted DateDiagnosed DateMalignant neoplasm of head, face and neck 12/18/2020ung yursjer2912/18/20208233Wycgykxzkbzsffju57/18/2018Mucositis due to radiation mkibmis3002/27/2018Severe protein-calorie nukgglmkfutx18/23/2018 Overview (02/27/2018): 17% unintentional weight loss in one month (02/27/18) Signed by: Selam Bullard RDN, 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Hoarse voice quality Family History Medical HistoryRelationCommentsStrokeDaughterDiabetesFatherDiabetesMotherStroke MotherColon CancerNo Family HistoryRelationStatusCommentsDaughterFatherDeceased MotherDeceased Social History Tobacco UseTypesPacks/DayYears UsedDateSmoking Tobacco: Every GryKnooocroed225 Started: 03/04/1973; Last attempted to quit: 03/04/2018Smokeless Tobacco: Current Tobacco Cessation:Ready to Q uit: Not Asked; Counseling Given: Not Answered Comments:started 1971 Alcohol UseStandard Drinks/WeekCommentsYes0 (1 standard drink = 0.6 oz pure alcohol)sociallyPHQ-2AnswerDate RecordedPHQ-2 jqmut791rea Deprivation IndexAnswerDate RecordedNational Score (1-100), lower number is lower risk87 12/19/2023State Score (1-10), lower number is lower vtac3314Data from: https://www.neighborhoodatlas.[facility]/. Last address used for cfsqfnmwosn[address]12/19/2023Sex and Gender InformationValueDate Recorded Sex Assigned at BirthNot on fileLegal IgmMvdp3301/04/2018 11:55 AM ESTGender IdentityNot on fileSexual OrientationNot on file Last Filed Vital Signs Vital SignReadingTime TakenCommentsBlood Snsiouop648/8503 11:18 AM EDT fmfucukRhrga1092/17/2025 11:15 AM TBNNqqjxeuvvgh55.4 ??C (97.6 ??F)01/21/2025 11:15 AM EDTRespiratory Snbj0832 11:15 AM EDTOxygen Ikrlpexsck59% 01/21/2025 11:15 AM EDTInhaled Oxygen Concentration--Zoovpv99.5 kg (153 lb 3.5 oz)01/21/2025 11:15 AM YEFFvdgsg642.1 cm (5' 5 )01/21/2025 11:15 AM EDTBody Mass Index25.503 11:15 AM EDT Plan of Treatment DateTypeDepartmentCare Team (Latest Contact Info)Bniwipoaajb35/09/2026 7:45 AM EDTAppointment Radiology Pet CT [address] [place] [address] CT CHEST AND NECK01/20/2026 11:40 AM EDTVisit (SP) Office Hematology/Oncology [address] [place] [address] Wyatt Vela MD [address] [place] [address] [place] [address] [address] UP AFTER CT SCANHealth MaintenanceDue DateLast DoneComments Abdominal Aortic Aneurysm Mpjykjihy59/05/1957Anxiety Jfqokgmps45/05/1975 Depression Crnxxbprl75/05/1975DTaP,Tdap,Td Vaccine (1 - Tdap)1975 Pneumococcal Vaccine: 50+ (1 of 2 - PCV)1975Lipid Ldgsvzkwf66/05/1992CT Mhwqswhruetv88/05/2002Cologuard (FIT-DNA)11/11/20015290Sgbpzlpugpx68/05/2002 Colorectal Cancer Atbhvtlcm30/05/2002Fecal Occult Blood2001Prostate Cancer Screening Skzfqvbvvv31/05/1302Oxfmkyapkcxcy14/05/2002Shingrix Vaccine (1 of 2) 2006dvance Directive Xavlyfakcd47/01/2025Medicare Advantage Annual Wellness Visit11/07/2024ovid-19 Vaccine ( - 2024- season)2025Influenza Vaccine (#1)2025Diabetes Eacttfhkc07/06/570940/04/2025, 06/22/2024, 12/16/2023, Additional history existsRSV Vaccine (1 - 1-dose 75+ series) 2031Hepatitis C TryaowtzjTlvuyopbe38/22/2024, 05/24/2024, 05/22/2024, Additional history exists Procedures Procedure NamePriorityDate/TimeAssociated DiagnosisCommentsCOMPREHENSIVE METABOLIC QWNXUDavmdzm15/06/2025 2:10 PM EST History of head and neck cancer Lung nodules HEPATITIS C VIRUS (HCV) RNA, QUANTITATIVE PCR, PLASMA/QQCLLGsrcrow73/16/2024 9:58 AM EDT Abnormal LFTs Chronic hepatitis C without hepatic coma (HCC) from Last 3 Months or Most Recently Relevant to Health Maintenance Results * (ABNORMAL) COMPREHENSIVE METABOLIC PANEL (01/10/2025 2:10 PM EST)Component ValueRef RangeTest MethodAnalysis TimePerformed AtPathologist Signature Protein, Total6.86.3 - 8.0 g/dL01/10/2025 2:43 PM ESTNOR[facility]CO[facility] LABAlbumin4.43.9 - 4.9 g/dL01/10/2025 2:43 PM ESTNORTMY[facility] LABCalcium, Total9.68.5 - 10.2 mg/dL01/10/2025 2:43 PM [facility] LABBilirubin, Total0.60.2 - 1.3 mg/dL 01/10/2025 2:43 PM [facility] LABAlkaline Wwmgpagbbgc0180 - 113 U/L01/10/2025 2:43 PM [facility] YCSHYU1059 - 40 U/L01/10/2025 2:43 PM [facility] LABALT8(L)10 - 54 U/L01/10/2025 2:43 PM [facility] JIRVfqpjik333(H)74 - 99 mg/dL01/10/2025 2:43 PM [facility] LABComment: The [place] Diabetes Association (ADA) provides guidance for cutoff [...] Standards of Medical Care in Diabetes 2016, [place] Diabetes Association. Diabetes Care. 2016.39(Suppl 1). BUN99 - 24 mg/dL01/10/2025 2:43 PM [facility] Creatinine0.68(L)0.73 - 1.22 mg/dL01/10/2025 2:43 PM [facility] NIQZigsxt242853 - 144 mmol/L01/10/2025 2:43 PM [facility] LABPotassium3.73.7 - 5.1 mmol/L01/10/2025 2:43 PM EST [facility] IFENbfiytgu11644 - 107 mmol/L01/10/2025 2:43 PM ESTNORTMYM[facility] QTQYB96870 - 30 mmol/L01/10/2025 2:43 PM [facility] LABAnion Xmr995 - 15 mmol/L01/10/2025 2:43 PM [facility] LABEstimated Glomerular Filtration Rate 101>=60 mL/min/1.73m 01/10/2025 2:43 PM [facility] LABComment:Estimated Glomerular Filtration Rate (eGFR) is calculated [...] VolumeCollection TimeReceived TimeBloodBLOOD SPECIMEN / UnknownVenipuncture / Xjvtjhw8301/10/2025 2:10 PM EST01/10/2025 2:20 PM EST Narrative Authorizing ProviderResult TypeResult StatusViveberenice Vela MDLABORATORYFinal ResultPerforming OrganizationAddressCity/State/ZIP CodePhone Number [facility] [address] [place] [id number] * HEPATITIS C RNA QUANTIFICATION BY PCR, PLASMA/SERUM (05/22/2024 9:58 AM EDT) ComponentValueRef RangeTest MethodAnalysis TimePerformed AtPathologist SignatureHCV RNAHCV RNA not detected by PCR.HCV RNA not detected by PCR. TOY OSCAR 6800 05/23/2024 2:59 AM EDTCKETTERING HEALTH WASHINGTON [facility] LABSpecimen (Source) Anatomical Location / LateralityCollection Method / VolumeCollection Time Received TimeBloodBLOOD SPECIMEN / UnknownVenipuncture / Igzjxro9905/22/2024 9:58 AM EDT05/22/2024 9:58 AM EDT Narrative [facility] - 05/23/2024 2:59 AM EDT The Linear Range of this assay is 15 IU/ml to 100,000,000 IU/ml Authorizing ProviderResult TypeResult StatusNosilvino Quintero MDLABORATORYFinal Result Performing OrganizationAddressCity/State/ZIP CodePhone Number [facility] [address] [facility] [address] [place] [address], from Last 3 Months or Most Recently Relevant to Health Maintenance Insurance Care Teams Team MemberRelationshipSpecialtyStart DateEnd Bird Crouch MD PCP - GeneralFamily Medicine01/04/18
--- OUTSIDE RECORDS SUMMARY | 2025-09-04 06:59 | XMS_ITS | Encounter Summary ---
Author Organization [facility] Address [address] [place] [address] Care Team Providers Care Track Superintendent Name Role Phone Bird Crouch MD Primary Care Provider [phone] Encounter Details DateTypeDepartmentCare Team (Latest Contact Info)Qzncpsrmcxb17/22/2025amboo flowsheet [facility] [place] [facility] [address] [facility] [address] [place] [address] Kelly Pulliam MD [address] [facility] [address] [place], [place] [id number] Social History Tobacco UseTypesPacks/DayYears UsedDateSmoking Tobacco: Every DayCigarettes0.5 53.8Started: 1972Smokeless Tobacco: Never Comments:Smokes 6-10 cigaret yoko/day Alcohol UseStandard Drinks/WeekCommentsYes8 (1 standard drink = 0.6 oz pure alcohol)Caffeine >4 cups/daySex and Gender InformationValueDate RecordedSex Assigned at BirthNot on fileLegal WxeZjym5401/19/2023 8:14 PM EDTGender Identity Not on fileSexual OrientationNot on filedocumented as of this encounter Plan of Treatment DateTypeDepartmentCare Team (Latest Contact Info)Blycbcnvmcj96/01/2025 11:20 AM ESTOffice Visit [facility] [place] [facility] [address] [facility] [address] [place] [address] Kelly Pulliam MD [address] [facility] [address] [place], [place] [id number] 08/27/2026 11:20 AM EDTOffice Visit [facility] [place] [facility] [address] [facility] [address] [place] [address] Kelly Pulliam MD [address] [facility] [address] [place] [address] documented as of this encounter Visit Diagnoses Not on filedocumented in this encounter Care Teams Team MemberRelationshipSpecialtyStart DateEnd Date Bird Crouch MD [address] [place] [address] PCP - GeneralFamily Pmsvtlyp42/16/25documented as of this encounter
--- OUTSIDE RECORDS SUMMARY | 2025-09-04 06:59 | XMS_ITS | Encounter Summary ---
Author Organization [facility] Address [address] [place] [address] Care Team Providers Care Facilities Officer Name Role Phone Bird Crouch MD Primary Care Provider [phone] Encounter Details DateTypeDepartmentCare Team (Latest Contact Info)Agbmfxymgzp94/22/2025Travel Social History Tobacco UseTypesPacks/DayYears UsedDateSmoking Tobacco: Every DayCigarettes0.5 53.8Started: 1972Smokeless Tobacco: Never Comments:Smokes 6-10 cigaret yoko/day Alcohol UseStandard Drinks/WeekCommentsYes8 (1 standard drink = 0.6 oz pure alcohol)Caffeine >4 cups/daySex and Gender InformationValueDate RecordedSex Assigned at BirthNot on fileLegal KmkOghj5201/19/2023 8:14 PM EDTGender Identity Not on fileSexual OrientationNot on filedocumented as of this encounter Plan of Treatment DateTypeDepartmentCare Team (Latest Contact Info)Aymqkuyzisz14/01/2025 11:20 AM ESTOffice Visit [facility] [place] [facility] [address] [facility] [address] [place] [phone] Kelly Pulliam MD [address] [facility] [address] [place] [address] 08/27/2026 11:20 AM EDTOffice Visit [facility] [place] [facility] [address] [facility] [address] [place] [phone] Kelly Pulliam MD [address] [facility] [address] [place] [address] documented as of this encounter Visit Diagnoses Not on filedocumented in this encounter Care Teams Team MemberRelationshipSpecialtyStart DateEnd Date Bird Crouch MD [address] [place] [address] PCP - GeneralFamily Mndbsjpp50/16/25documented as of this encounter
--- OUTSIDE RECORDS SUMMARY | 2025-09-04 06:59 | XMS_ITS | Patient Health Record ---
Author Organization [facility] in [place] Address [address] [place] [address] Care Team Providers Care Plate Cleaner Name Role Phone Maldonado De La Cruz Primary Care Provider Allergies No Known Allergies Results Component Value Reference Range Notes Result 1 Reviewed date:08/20/2025 02:08:58 PM Interpretation: Performing Lab: Notes/Report: [facility] , Result 1 See Below For Report Result 1 Few gram positive cocci Performing Lab:see noteLC - [facility] LBResult 2 Reviewed date:08/20/2025 02:08:58 PM Interpretation: Performing Lab: Notes/Report: [facility] ,Result 2See Below For Report Result 2 Few gram negative rods. 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 Gram Stain Evaluation This specimen is of good quality and is acceptable for routine Performing Lab:see noteLC - [facility] LBLower Respiratory Culture Reviewed date:08/20/2025 02:08:58 PM Interpretation: Performing Lab: Notes/Report: [facility] ,Lower Respiratory CultureSee Below For Report Lower Respiratory Culture WILL FOLLOW O:ENTASB Isolated O:GNR Isolated O:KLEBPN Isolated Organism: 8.1 Antibiotic Interpretation JORGE Status AMOXICILLIN/CLAVULANIC ACID AMOXICILLIN/CLAVULANIC ACID R F Cefepime Cefepime S F Cefoxitin Cefoxitin R F Cefpodoxime Cefpodoxime S F Ertapenem Ertapenem S F Gentamicin Gentamicin S F Levofloxacin Levofloxacin S F Tetracycline Tetracycline S F Tobramycin Tobramycin S F Trimethoprim/Sulfamethoxazole Trimethoprim/Sulfamethoxazole S F Organism: 8.3 Antibiotic Interpretation JORGE Status AMOXICILLIN/CLAVULANIC ACID AMOXICILLIN/CLAVULANIC ACID S F Ampicillin Ampicillin R F Cefazolin Cefazolin S F Cefepime Cefepime S F Cefoxitin Cefoxitin S F Cefpodoxime Cefpodoxime S F Ceftriaxone Ceftriaxone S F Ciprofloxacin Ciprofloxacin S F Ertapenem Ertapenem S F Gentamicin Gentamicin S F Levofloxacin Levofloxacin S F Meropenem Meropenem S F Tetracycline Tetracycline S F Tobramycin Tobramycin S F Trimethoprim/Sulfamethoxazole Trimethoprim/Sulfamethoxazole S F Piperacillin/Tazobactam Piperacillin/Tazobactam S F Lower Respiratory CultureOrganism: Gram negative genoveva : Lower Respiratory Culture WILL FOLLOW O:ENTASB Isolated O:GNR Isolated O:KLEBPN Isolated Organism: 8.1 Antibiotic Interpretation JORGE Status AMOXICILLIN/CLAVULANIC ACID AMOXICILLIN/CLAVULANIC ACID R F Cefepime Cefepime S F Cefoxitin Cefoxitin R F Cefpodoxime Cefpodoxime S F Ertapenem Ertapenem S F Gentamicin Gentamicin S F Levofloxacin Levofloxacin S F Tetracycline Tetracycline S F Tobramycin Tobramycin S F Trimethoprim/Sulfamethoxazole Trimethoprim/Sulfamethoxazole S F Organism: 8.3 Antibiotic Interpretation JORGE Status AMOXICILLIN/CLAVULANIC ACID AMOXICILLIN/CLAVULANIC ACID S F Ampicillin Ampicillin R F Cefazolin Cefazolin S F Cefepime Cefepime S F Cefoxitin Cefoxitin S F Cefpodoxime Cefpodoxime S F Ceftriaxone Ceftriaxone S F Ciprofloxacin Ciprofloxacin S F Ertapenem Ertapenem S F Gentamicin Gentamicin S F Levofloxacin Levofloxacin S F Meropenem Meropenem S F Tetracycline Tetracycline S F Tobramycin Tobramycin S F Trimethoprim/Sulfamethoxazole Trimethoprim/Sulfamethoxazole S F Piperacillin/Tazobactam Piperacillin/Tazobactam S F Lower Respiratory Culture*ABNORMAL* Lower Respiratory Culture WILL FOLLOW O:ENTASB Isolated O:GNR Isolated O:KLEBPN Isolated Organism: 8.1 Antibiotic Interpretation JORGE Status AMOXICILLIN/CLAVULANIC ACID AMOXICILLIN/CLAVULANIC ACID R F Cefepime Cefepime S F Cefoxitin Cefoxitin R F Cefpodoxime Cefpodoxime S F Ertapenem Ertapenem S F Gentamicin Gentamicin S F Levofloxacin Levofloxacin S F Tetracycline Tetracycline S F Tobramycin Tobramycin S F Trimethoprim/Sulfamethoxazole Trimethoprim/Sulfamethoxazole S F Organism: 8.3 Antibiotic Interpretation JORGE Status AMOXICILLIN/CLAVULANIC ACID AMOXICILLIN/CLAVULANIC ACID S F Ampicillin Ampicillin R F Cefazolin Cefazolin S F Cefepime Cefepime S F Cefoxitin Cefoxitin S F Cefpodoxime Cefpodoxime S F Ceftriaxone Ceftriaxone S F Ciprofloxacin Ciprofloxacin S F Ertapenem Ertapenem S F Gentamicin Gentamicin S F Levofloxacin Levofloxacin S F Meropenem Meropenem S F Tetracycline Tetracycline S F Tobramycin Tobramycin S F Trimethoprim/Sulfamethoxazole Trimethoprim/Sulfamethoxazole S F Piperacillin/Tazobactam Piperacillin/Tazobactam S F Lower Respiratory CultureHeavy growth Lower Respiratory Culture WILL FOLLOW O:ENTASB Isolated O:GNR Isolated O:KLEBPN Isolated Organism: 8.1 Antibiotic Interpretation JORGE Status AMOXICILLIN/CLAVULANIC ACID AMOXICILLIN/CLAVULANIC ACID R F Cefepime Cefepime S F Cefoxitin Cefoxitin R F Cefpodoxime Cefpodoxime S F Ertapenem Ertapenem S F Gentamicin Gentamicin S F Levofloxacin Levofloxacin S F Tetracycline Tetracycline S F Tobramycin Tobramycin S F Trimethoprim/Sulfamethoxazole Trimethoprim/Sulfamethoxazole S F Organism: 8.3 Antibiotic Interpretation JORGE Status AMOXICILLIN/CLAVULANIC ACID AMOXICILLIN/CLAVULANIC ACID S F Ampicillin Ampicillin R F Cefazolin Cefazolin S F Cefepime Cefepime S F Cefoxitin Cefoxitin S F Cefpodoxime Cefpodoxime S F Ceftriaxone Ceftriaxone S F Ciprofloxacin Ciprofloxacin S F Ertapenem Ertapenem S F Gentamicin Gentamicin S F Levofloxacin Levofloxacin S F Meropenem Meropenem S F Tetracycline Tetracycline S F Tobramycin Tobramycin S F Trimethoprim/Sulfamethoxazole Trimethoprim/Sulfamethoxazole S F Piperacillin/Tazobactam Piperacillin/Tazobactam S F Lower Respiratory CultureGram negative genoveva Lower Respiratory Culture WILL FOLLOW O:ENTASB Isolated O:GNR Isolated O:KLEBPN Isolated Organism: 8.1 Antibiotic Interpretation JORGE Status AMOXICILLIN/CLAVULANIC ACID AMOXICILLIN/CLAVULANIC ACID R F Cefepime Cefepime S F Cefoxitin Cefoxitin R F Cefpodoxime Cefpodoxime S F Ertapenem Ertapenem S F Gentamicin Gentamicin S F Levofloxacin Levofloxacin S F Tetracycline Tetracycline S F Tobramycin Tobramycin S F Trimethoprim/Sulfamethoxazole Trimethoprim/Sulfamethoxazole S F Organism: 8.3 Antibiotic Interpretation JORGE Status AMOXICILLIN/CLAVULANIC ACID AMOXICILLIN/CLAVULANIC ACID S F Ampicillin Ampicillin R F Cefazolin Cefazolin S F Cefepime Cefepime S F Cefoxitin Cefoxitin S F Cefpodoxime Cefpodoxime S F Ceftriaxone Ceftriaxone S F Ciprofloxacin Ciprofloxacin S F Ertapenem Ertapenem S F Gentamicin Gentamicin S F Levofloxacin Levofloxacin S F Meropenem Meropenem S F Tetracycline Tetracycline S F Tobramycin Tobramycin S F Trimethoprim/Sulfamethoxazole Trimethoprim/Sulfamethoxazole S F Piperacillin/Tazobactam Piperacillin/Tazobactam S F Lower Respiratory CultureOrganism: Klebsiella pneumoniae. : Lower Respiratory Culture WILL FOLLOW O:ENTASB Isolated O:GNR Isolated O:KLEBPN Isolated Organism: 8.1 Antibiotic Interpretation JORGE Status AMOXICILLIN/CLAVULANIC ACID AMOXICILLIN/CLAVULANIC ACID R F Cefepime Cefepime S F Cefoxitin Cefoxitin R F Cefpodoxime Cefpodoxime S F Ertapenem Ertapenem S F Gentamicin Gentamicin S F Levofloxacin Levofloxacin S F Tetracycline Tetracycline S F Tobramycin Tobramycin S F Trimethoprim/Sulfamethoxazole Trimethoprim/Sulfamethoxazole S F Organism: 8.3 Antibiotic Interpretation JORGE Status AMOXICILLIN/CLAVULANIC ACID AMOXICILLIN/CLAVULANIC ACID S F Ampicillin Ampicillin R F Cefazolin Cefazolin S F Cefepime Cefepime S F Cefoxitin Cefoxitin S F Cefpodoxime Cefpodoxime S F Ceftriaxone Ceftriaxone S F Ciprofloxacin Ciprofloxacin S F Ertapenem Ertapenem S F Gentamicin Gentamicin S F Levofloxacin Levofloxacin S F Meropenem Meropenem S F Tetracycline Tetracycline S F Tobramycin Tobramycin S F Trimethoprim/Sulfamethoxazole Trimethoprim/Sulfamethoxazole S F Piperacillin/Tazobactam Piperacillin/Tazobactam S F Lower Respiratory Culture*ABNORMAL* Lower Respiratory Culture WILL FOLLOW O:ENTASB Isolated O:GNR Isolated O:KLEBPN Isolated Organism: 8.1 Antibiotic Interpretation JORGE Status AMOXICILLIN/CLAVULANIC ACID AMOXICILLIN/CLAVULANIC ACID R F Cefepime Cefepime S F Cefoxitin Cefoxitin R F Cefpodoxime Cefpodoxime S F Ertapenem Ertapenem S F Gentamicin Gentamicin S F Levofloxacin Levofloxacin S F Tetracycline Tetracycline S F Tobramycin Tobramycin S F Trimethoprim/Sulfamethoxazole Trimethoprim/Sulfamethoxazole S F Organism: 8.3 Antibiotic Interpretation JORGE Status AMOXICILLIN/CLAVULANIC ACID AMOXICILLIN/CLAVULANIC ACID S F Ampicillin Ampicillin R F Cefazolin Cefazolin S F Cefepime Cefepime S F Cefoxitin Cefoxitin S F Cefpodoxime Cefpodoxime S F Ceftriaxone Ceftriaxone S F Ciprofloxacin Ciprofloxacin S F Ertapenem Ertapenem S F Gentamicin Gentamicin S F Levofloxacin Levofloxacin S F Meropenem Meropenem S F Tetracycline Tetracycline S F Tobramycin Tobramycin S F Trimethoprim/Sulfamethoxazole Trimethoprim/Sulfamethoxazole S F Piperacillin/Tazobactam Piperacillin/Tazobactam S F Lower Respiratory CultureHeavy growth Lower Respiratory Culture WILL FOLLOW O:ENTASB Isolated O:GNR Isolated O:KLEBPN Isolated Organism: 8.1 Antibiotic Interpretation JORGE Status AMOXICILLIN/CLAVULANIC ACID AMOXICILLIN/CLAVULANIC ACID R F Cefepime Cefepime S F Cefoxitin Cefoxitin R F Cefpodoxime Cefpodoxime S F Ertapenem Ertapenem S F Gentamicin Gentamicin S F Levofloxacin Levofloxacin S F Tetracycline Tetracycline S F Tobramycin Tobramycin S F Trimethoprim/Sulfamethoxazole Trimethoprim/Sulfamethoxazole S F Organism: 8.3 Antibiotic Interpretation JORGE Status AMOXICILLIN/CLAVULANIC ACID AMOXICILLIN/CLAVULANIC ACID S F Ampicillin Ampicillin R F Cefazolin Cefazolin S F Cefepime Cefepime S F Cefoxitin Cefoxitin S F Cefpodoxime Cefpodoxime S F Ceftriaxone Ceftriaxone S F Ciprofloxacin Ciprofloxacin S F Ertapenem Ertapenem S F Gentamicin Gentamicin S F Levofloxacin Levofloxacin S F Meropenem Meropenem S F Tetracycline Tetracycline S F Tobramycin Tobramycin S F Trimethoprim/Sulfamethoxazole Trimethoprim/Sulfamethoxazole S F Piperacillin/Tazobactam Piperacillin/Tazobactam S F Lower Respiratory Culture Lower Respiratory Culture WILL FOLLOW O:ENTASB Isolated O:GNR Isolated O:KLEBPN Isolated Organism: 8.1 Antibiotic Interpretation JORGE Status AMOXICILLIN/CLAVULANIC ACID AMOXICILLIN/CLAVULANIC ACID R F Cefepime Cefepime S F Cefoxitin Cefoxitin R F Cefpodoxime Cefpodoxime S F Ertapenem Ertapenem S F Gentamicin Gentamicin S F Levofloxacin Levofloxacin S F Tetracycline Tetracycline S F Tobramycin Tobramycin S F Trimethoprim/Sulfamethoxazole Trimethoprim/Sulfamethoxazole S F Organism: 8.3 Antibiotic Interpretation JORGE Status AMOXICILLIN/CLAVULANIC ACID AMOXICILLIN/CLAVULANIC ACID S F Ampicillin Ampicillin R F Cefazolin Cefazolin S F Cefepime Cefepime S F Cefoxitin Cefoxitin S F Cefpodoxime Cefpodoxime S F Ceftriaxone Ceftriaxone S F Ciprofloxacin Ciprofloxacin S F Ertapenem Ertapenem S F Gentamicin Gentamicin S F Levofloxacin Levofloxacin S F Meropenem Meropenem S F Tetracycline Tetracycline S F Tobramycin Tobramycin S F Trimethoprim/Sulfamethoxazole Trimethoprim/Sulfamethoxazole S F Piperacillin/Tazobactam Piperacillin/Tazobactam S F Lower Respiratory CultureGrowth observed. Further testing to rule out possible pathogen(s) Lower Respiratory Culture WILL FOLLOW O:ENTASB Isolated O:GNR Isolated O:KLEBPN Isolated Organism: 8.1 Antibiotic Interpretation JORGE Status AMOXICILLIN/CLAVULANIC ACID AMOXICILLIN/CLAVULANIC ACID R F Cefepime Cefepime S F Cefoxitin Cefoxitin R F Cefpodoxime Cefpodoxime S F Ertapenem Ertapenem S F Gentamicin Gentamicin S F Levofloxacin Levofloxacin S F Tetracycline Tetracycline S F Tobramycin Tobramycin S F Trimethoprim/Sulfamethoxazole Trimethoprim/Sulfamethoxazole S F Organism: 8.3 Antibiotic Interpretation JORGE Status AMOXICILLIN/CLAVULANIC ACID AMOXICILLIN/CLAVULANIC ACID S F Ampicillin Ampicillin R F Cefazolin Cefazolin S F Cefepime Cefepime S F Cefoxitin Cefoxitin S F Cefpodoxime Cefpodoxime S F Ceftriaxone Ceftriaxone S F Ciprofloxacin Ciprofloxacin S F Ertapenem Ertapenem S F Gentamicin Gentamicin S F Levofloxacin Levofloxacin S F Meropenem Meropenem S F Tetracycline Tetracycline S F Tobramycin Tobramycin S F Trimethoprim/Sulfamethoxazole Trimethoprim/Sulfamethoxazole S F Piperacillin/Tazobactam Piperacillin/Tazobactam S F Lower Respiratory Cultureis in progress. Lower Respiratory Culture WILL FOLLOW O:ENTASB Isolated O:GNR Isolated O:KLEBPN Isolated Organism: 8.1 Antibiotic Interpretation JORGE Status AMOXICILLIN/CLAVULANIC ACID AMOXICILLIN/CLAVULANIC ACID R F Cefepime Cefepime S F Cefoxitin Cefoxitin R F Cefpodoxime Cefpodoxime S F Ertapenem Ertapenem S F Gentamicin Gentamicin S F Levofloxacin Levofloxacin S F Tetracycline Tetracycline S F Tobramycin Tobramycin S F Trimethoprim/Sulfamethoxazole Trimethoprim/Sulfamethoxazole S F Organism: 8.3 Antibiotic Interpretation JORGE Status AMOXICILLIN/CLAVULANIC ACID AMOXICILLIN/CLAVULANIC ACID S F Ampicillin Ampicillin R F Cefazolin Cefazolin S F Cefepime Cefepime S F Cefoxitin Cefoxitin S F Cefpodoxime Cefpodoxime S F Ceftriaxone Ceftriaxone S F Ciprofloxacin Ciprofloxacin S F Ertapenem Ertapenem S F Gentamicin Gentamicin S F Levofloxacin Levofloxacin S F Meropenem Meropenem S F Tetracycline Tetracycline S F Tobramycin Tobramycin S F Trimethoprim/Sulfamethoxazole Trimethoprim/Sulfamethoxazole S F Piperacillin/Tazobactam Piperacillin/Tazobactam S F Lower Respiratory CultureKlebsiella pneumoniae. Lower Respiratory Culture WILL FOLLOW O:ENTASB Isolated O:GNR Isolated O:KLEBPN Isolated Organism: 8.1 Antibiotic Interpretation JORGE Status AMOXICILLIN/CLAVULANIC ACID AMOXICILLIN/CLAVULANIC ACID R F Cefepime Cefepime S F Cefoxitin Cefoxitin R F Cefpodoxime Cefpodoxime S F Ertapenem Ertapenem S F Gentamicin Gentamicin S F Levofloxacin Levofloxacin S F Tetracycline Tetracycline S F Tobramycin Tobramycin S F Trimethoprim/Sulfamethoxazole Trimethoprim/Sulfamethoxazole S F Organism: 8.3 Antibiotic Interpretation JORGE Status AMOXICILLIN/CLAVULANIC ACID AMOXICILLIN/CLAVULANIC ACID S F Ampicillin Ampicillin R F Cefazolin Cefazolin S F Cefepime Cefepime S F Cefoxitin Cefoxitin S F Cefpodoxime Cefpodoxime S F Ceftriaxone Ceftriaxone S F Ciprofloxacin Ciprofloxacin S F Ertapenem Ertapenem S F Gentamicin Gentamicin S F Levofloxacin Levofloxacin S F Meropenem Meropenem S F Tetracycline Tetracycline S F Tobramycin Tobramycin S F Trimethoprim/Sulfamethoxazole Trimethoprim/Sulfamethoxazole S F Piperacillin/Tazobactam Piperacillin/Tazobactam S F Lower Respiratory CultureOrganism: Klebsiella pneumoniae. : Lower Respiratory Culture WILL FOLLOW O:ENTASB Isolated O:GNR Isolated O:KLEBPN Isolated Organism: 8.1 Antibiotic Interpretation JORGE Status AMOXICILLIN/CLAVULANIC ACID AMOXICILLIN/CLAVULANIC ACID R F Cefepime Cefepime S F Cefoxitin Cefoxitin R F Cefpodoxime Cefpodoxime S F Ertapenem Ertapenem S F Gentamicin Gentamicin S F Levofloxacin Levofloxacin S F Tetracycline Tetracycline S F Tobramycin Tobramycin S F Trimethoprim/Sulfamethoxazole Trimethoprim/Sulfamethoxazole S F Organism: 8.3 Antibiotic Interpretation JORGE Status AMOXICILLIN/CLAVULANIC ACID AMOXICILLIN/CLAVULANIC ACID S F Ampicillin Ampicillin R F Cefazolin Cefazolin S F Cefepime Cefepime S F Cefoxitin Cefoxitin S F Cefpodoxime Cefpodoxime S F Ceftriaxone Ceftriaxone S F Ciprofloxacin Ciprofloxacin S F Ertapenem Ertapenem S F Gentamicin Gentamicin S F Levofloxacin Levofloxacin S F Meropenem Meropenem S F Tetracycline Tetracycline S F Tobramycin Tobramycin S F Trimethoprim/Sulfamethoxazole Trimethoprim/Sulfamethoxazole S F Piperacillin/Tazobactam Piperacillin/Tazobactam S F Lower Respiratory Culture*ABNORMAL* Lower Respiratory Culture WILL FOLLOW O:ENTASB Isolated O:GNR Isolated O:KLEBPN Isolated Organism: 8.1 Antibiotic Interpretation JORGE Status AMOXICILLIN/CLAVULANIC ACID AMOXICILLIN/CLAVULANIC ACID R F Cefepime Cefepime S F Cefoxitin Cefoxitin R F Cefpodoxime Cefpodoxime S F Ertapenem Ertapenem S F Gentamicin Gentamicin S F Levofloxacin Levofloxacin S F Tetracycline Tetracycline S F Tobramycin Tobramycin S F Trimethoprim/Sulfamethoxazole Trimethoprim/Sulfamethoxazole S F Organism: 8.3 Antibiotic Interpretation JORGE Status AMOXICILLIN/CLAVULANIC ACID AMOXICILLIN/CLAVULANIC ACID S F Ampicillin Ampicillin R F Cefazolin Cefazolin S F Cefepime Cefepime S F Cefoxitin Cefoxitin S F Cefpodoxime Cefpodoxime S F Ceftriaxone Ceftriaxone S F Ciprofloxacin Ciprofloxacin S F Ertapenem Ertapenem S F Gentamicin Gentamicin S F Levofloxacin Levofloxacin S F Meropenem Meropenem S F Tetracycline Tetracycline S F Tobramycin Tobramycin S F Trimethoprim/Sulfamethoxazole Trimethoprim/Sulfamethoxazole S F Piperacillin/Tazobactam Piperacillin/Tazobactam S F Lower Respiratory CultureHeavy growth Lower Respiratory Culture WILL FOLLOW O:ENTASB Isolated O:GNR Isolated O:KLEBPN Isolated Organism: 8.1 Antibiotic Interpretation JORGE Status AMOXICILLIN/CLAVULANIC ACID AMOXICILLIN/CLAVULANIC ACID R F Cefepime Cefepime S F Cefoxitin Cefoxitin R F Cefpodoxime Cefpodoxime S F Ertapenem Ertapenem S F Gentamicin Gentamicin S F Levofloxacin Levofloxacin S F Tetracycline Tetracycline S F Tobramycin Tobramycin S F Trimethoprim/Sulfamethoxazole Trimethoprim/Sulfamethoxazole S F Organism: 8.3 Antibiotic Interpretation JORGE Status AMOXICILLIN/CLAVULANIC ACID AMOXICILLIN/CLAVULANIC ACID S F Ampicillin Ampicillin R F Cefazolin Cefazolin S F Cefepime Cefepime S F Cefoxitin Cefoxitin S F Cefpodoxime Cefpodoxime S F Ceftriaxone Ceftriaxone S F Ciprofloxacin Ciprofloxacin S F Ertapenem Ertapenem S F Gentamicin Gentamicin S F Levofloxacin Levofloxacin S F Meropenem Meropenem S F Tetracycline Tetracycline S F Tobramycin Tobramycin S F Trimethoprim/Sulfamethoxazole Trimethoprim/Sulfamethoxazole S F Piperacillin/Tazobactam Piperacillin/Tazobactam S F Lower Respiratory CultureOrganism: Enterobacter asburiae : Lower Respiratory Culture WILL FOLLOW O:ENTASB Isolated O:GNR Isolated O:KLEBPN Isolated Organism: 8.1 Antibiotic Interpretation JORGE Status AMOXICILLIN/CLAVULANIC ACID AMOXICILLIN/CLAVULANIC ACID R F Cefepime Cefepime S F Cefoxitin Cefoxitin R F Cefpodoxime Cefpodoxime S F Ertapenem Ertapenem S F Gentamicin Gentamicin S F Levofloxacin Levofloxacin S F Tetracycline Tetracycline S F Tobramycin Tobramycin S F Trimethoprim/Sulfamethoxazole Trimethoprim/Sulfamethoxazole S F Organism: 8.3 Antibiotic Interpretation JORGE Status AMOXICILLIN/CLAVULANIC ACID AMOXICILLIN/CLAVULANIC ACID S F Ampicillin Ampicillin R F Cefazolin Cefazolin S F Cefepime Cefepime S F Cefoxitin Cefoxitin S F Cefpodoxime Cefpodoxime S F Ceftriaxone Ceftriaxone S F Ciprofloxacin Ciprofloxacin S F Ertapenem Ertapenem S F Gentamicin Gentamicin S F Levofloxacin Levofloxacin S F Meropenem Meropenem S F Tetracycline Tetracycline S F Tobramycin Tobramycin S F Trimethoprim/Sulfamethoxazole Trimethoprim/Sulfamethoxazole S F Piperacillin/Tazobactam Piperacillin/Tazobactam S F Lower Respiratory Culture*ABNORMAL* Lower Respiratory Culture WILL FOLLOW O:ENTASB Isolated O:GNR Isolated O:KLEBPN Isolated Organism: 8.1 Antibiotic Interpretation JORGE Status AMOXICILLIN/CLAVULANIC ACID AMOXICILLIN/CLAVULANIC ACID R F Cefepime Cefepime S F Cefoxitin Cefoxitin R F Cefpodoxime Cefpodoxime S F Ertapenem Ertapenem S F Gentamicin Gentamicin S F Levofloxacin Levofloxacin S F Tetracycline Tetracycline S F Tobramycin Tobramycin S F Trimethoprim/Sulfamethoxazole Trimethoprim/Sulfamethoxazole S F Organism: 8.3 Antibiotic Interpretation JORGE Status AMOXICILLIN/CLAVULANIC ACID AMOXICILLIN/CLAVULANIC ACID S F Ampicillin Ampicillin R F Cefazolin Cefazolin S F Cefepime Cefepime S F Cefoxitin Cefoxitin S F Cefpodoxime Cefpodoxime S F Ceftriaxone Ceftriaxone S F Ciprofloxacin Ciprofloxacin S F Ertapenem Ertapenem S F Gentamicin Gentamicin S F Levofloxacin Levofloxacin S F Meropenem Meropenem S F Tetracycline Tetracycline S F Tobramycin Tobramycin S F Trimethoprim/Sulfamethoxazole Trimethoprim/Sulfamethoxazole S F Piperacillin/Tazobactam Piperacillin/Tazobactam S F Lower Respiratory CultureSome Enterobacterales may develop resistance during Lower Respiratory Culture WILL FOLLOW O:ENTASB Isolated O:GNR Isolated O:KLEBPN Isolated Organism: 8.1 Antibiotic Interpretation JORGE Status AMOXICILLIN/CLAVULANIC ACID AMOXICILLIN/CLAVULANIC ACID R F Cefepime Cefepime S F Cefoxitin Cefoxitin R F Cefpodoxime Cefpodoxime S F Ertapenem Ertapenem S F Gentamicin Gentamicin S F Levofloxacin Levofloxacin S F Tetracycline Tetracycline S F Tobramycin Tobramycin S F Trimethoprim/Sulfamethoxazole Trimethoprim/Sulfamethoxazole S F Organism: 8.3 Antibiotic Interpretation JORGE Status AMOXICILLIN/CLAVULANIC ACID AMOXICILLIN/CLAVULANIC ACID S F Ampicillin Ampicillin R F Cefazolin Cefazolin S F Cefepime Cefepime S F Cefoxitin Cefoxitin S F Cefpodoxime Cefpodoxime S F Ceftriaxone Ceftriaxone S F Ciprofloxacin Ciprofloxacin S F Ertapenem Ertapenem S F Gentamicin Gentamicin S F Levofloxacin Levofloxacin S F Meropenem Meropenem S F Tetracycline Tetracycline S F Tobramycin Tobramycin S F Trimethoprim/Sulfamethoxazole Trimethoprim/Sulfamethoxazole S F Piperacillin/Tazobactam Piperacillin/Tazobactam S F Lower Respiratory Culturetherapy with third-generation cephalosporins. This Lower Respiratory Culture WILL FOLLOW O:ENTASB Isolated O:GNR Isolated O:KLEBPN Isolated Organism: 8.1 Antibiotic Interpretation JORGE Status AMOXICILLIN/CLAVULANIC ACID AMOXICILLIN/CLAVULANIC ACID R F Cefepime Cefepime S F Cefoxitin Cefoxitin R F Cefpodoxime Cefpodoxime S F Ertapenem Ertapenem S F Gentamicin Gentamicin S F Levofloxacin Levofloxacin S F Tetracycline Tetracycline S F Tobramycin Tobramycin S F Trimethoprim/Sulfamethoxazole Trimethoprim/Sulfamethoxazole S F Organism: 8.3 Antibiotic Interpretation JORGE Status AMOXICILLIN/CLAVULANIC ACID AMOXICILLIN/CLAVULANIC ACID S F Ampicillin Ampicillin R F Cefazolin Cefazolin S F Cefepime Cefepime S F Cefoxitin Cefoxitin S F Cefpodoxime Cefpodoxime S F Ceftriaxone Ceftriaxone S F Ciprofloxacin Ciprofloxacin S F Ertapenem Ertapenem S F Gentamicin Gentamicin S F Levofloxacin Levofloxacin S F Meropenem Meropenem S F Tetracycline Tetracycline S F Tobramycin Tobramycin S F Trimethoprim/Sulfamethoxazole Trimethoprim/Sulfamethoxazole S F Piperacillin/Tazobactam Piperacillin/Tazobactam S F Lower Respiratory Cultureresistance is most commonly seen with Citrobacter Lower Respiratory Culture WILL FOLLOW O:ENTASB Isolated O:GNR Isolated O:KLEBPN Isolated Organism: 8.1 Antibiotic Interpretation JORGE Status AMOXICILLIN/CLAVULANIC ACID AMOXICILLIN/CLAVULANIC ACID R F Cefepime Cefepime S F Cefoxitin Cefoxitin R F Cefpodoxime Cefpodoxime S F Ertapenem Ertapenem S F Gentamicin Gentamicin S F Levofloxacin Levofloxacin S F Tetracycline Tetracycline S F Tobramycin Tobramycin S F Trimethoprim/Sulfamethoxazole Trimethoprim/Sulfamethoxazole S F Organism: 8.3 Antibiotic Interpretation JORGE Status AMOXICILLIN/CLAVULANIC ACID AMOXICILLIN/CLAVULANIC ACID S F Ampicillin Ampicillin R F Cefazolin Cefazolin S F Cefepime Cefepime S F Cefoxitin Cefoxitin S F Cefpodoxime Cefpodoxime S F Ceftriaxone Ceftriaxone S F Ciprofloxacin Ciprofloxacin S F Ertapenem Ertapenem S F Gentamicin Gentamicin S F Levofloxacin Levofloxacin S F Meropenem Meropenem S F Tetracycline Tetracycline S F Tobramycin Tobramycin S F Trimethoprim/Sulfamethoxazole Trimethoprim/Sulfamethoxazole S F Piperacillin/Tazobactam Piperacillin/Tazobactam S F Lower Respiratory Culturefreundii complex, Enterobacter cloacae complex, and Lower Respiratory Culture WILL FOLLOW O:ENTASB Isolated O:GNR Isolated O:KLEBPN Isolated Organism: 8.1 Antibiotic Interpretation JORGE Status AMOXICILLIN/CLAVULANIC ACID AMOXICILLIN/CLAVULANIC ACID R F Cefepime Cefepime S F Cefoxitin Cefoxitin R F Cefpodoxime Cefpodoxime S F Ertapenem Ertapenem S F Gentamicin Gentamicin S F Levofloxacin Levofloxacin S F Tetracycline Tetracycline S F Tobramycin Tobramycin S F Trimethoprim/Sulfamethoxazole Trimethoprim/Sulfamethoxazole S F Organism: 8.3 Antibiotic Interpretation JORGE Status AMOXICILLIN/CLAVULANIC ACID AMOXICILLIN/CLAVULANIC ACID S F Ampicillin Ampicillin R F Cefazolin Cefazolin S F Cefepime Cefepime S F Cefoxitin Cefoxitin S F Cefpodoxime Cefpodoxime S F Ceftriaxone Ceftriaxone S F Ciprofloxacin Ciprofloxacin S F Ertapenem Ertapenem S F Gentamicin Gentamicin S F Levofloxacin Levofloxacin S F Meropenem Meropenem S F Tetracycline Tetracycline S F Tobramycin Tobramycin S F Trimethoprim/Sulfamethoxazole Trimethoprim/Sulfamethoxazole S F Piperacillin/Tazobactam Piperacillin/Tazobactam S F Lower Respiratory CultureKlebsiella aerogenes. Isolates that initially test Lower Respiratory Culture WILL FOLLOW O:ENTASB Isolated O:GNR Isolated O:KLEBPN Isolated Organism: 8.1 Antibiotic Interpretation JORGE Status AMOXICILLIN/CLAVULANIC ACID AMOXICILLIN/CLAVULANIC ACID R F Cefepime Cefepime S F Cefoxitin Cefoxitin R F Cefpodoxime Cefpodoxime S F Ertapenem Ertapenem S F Gentamicin Gentamicin S F Levofloxacin Levofloxacin S F Tetracycline Tetracycline S F Tobramycin Tobramycin S F Trimethoprim/Sulfamethoxazole Trimethoprim/Sulfamethoxazole S F Organism: 8.3 Antibiotic Interpretation JORGE Status AMOXICILLIN/CLAVULANIC ACID AMOXICILLIN/CLAVULANIC ACID S F Ampicillin Ampicillin R F Cefazolin Cefazolin S F Cefepime Cefepime S F Cefoxitin Cefoxitin S F Cefpodoxime Cefpodoxime S F Ceftriaxone Ceftriaxone S F Ciprofloxacin Ciprofloxacin S F Ertapenem Ertapenem S F Gentamicin Gentamicin S F Levofloxacin Levofloxacin S F Meropenem Meropenem S F Tetracycline Tetracycline S F Tobramycin Tobramycin S F Trimethoprim/Sulfamethoxazole Trimethoprim/Sulfamethoxazole S F Piperacillin/Tazobactam Piperacillin/Tazobactam S F Lower Respiratory Culturesusceptible may become resistant within a few days Lower Respiratory Culture WILL FOLLOW O:ENTASB Isolated O:GNR Isolated O:KLEBPN Isolated Organism: 8.1 Antibiotic Interpretation JORGE Status AMOXICILLIN/CLAVULANIC ACID AMOXICILLIN/CLAVULANIC ACID R F Cefepime Cefepime S F Cefoxitin Cefoxitin R F Cefpodoxime Cefpodoxime S F Ertapenem Ertapenem S F Gentamicin Gentamicin S F Levofloxacin Levofloxacin S F Tetracycline Tetracycline S F Tobramycin Tobramycin S F Trimethoprim/Sulfamethoxazole Trimethoprim/Sulfamethoxazole S F Organism: 8.3 Antibiotic Interpretation JORGE Status AMOXICILLIN/CLAVULANIC ACID AMOXICILLIN/CLAVULANIC ACID S F Ampicillin Ampicillin R F Cefazolin Cefazolin S F Cefepime Cefepime S F Cefoxitin Cefoxitin S F Cefpodoxime Cefpodoxime S F Ceftriaxone Ceftriaxone S F Ciprofloxacin Ciprofloxacin S F Ertapenem Ertapenem S F Gentamicin Gentamicin S F Levofloxacin Levofloxacin S F Meropenem Meropenem S F Tetracycline Tetracycline S F Tobramycin Tobramycin S F Trimethoprim/Sulfamethoxazole Trimethoprim/Sulfamethoxazole S F Piperacillin/Tazobactam Piperacillin/Tazobactam S F Lower Respiratory Cultureafter initiation of therapy. Testing subsequent Lower Respiratory Culture WILL FOLLOW O:ENTASB Isolated O:GNR Isolated O:KLEBPN Isolated Organism: 8.1 Antibiotic Interpretation JORGE Status AMOXICILLIN/CLAVULANIC ACID AMOXICILLIN/CLAVULANIC ACID R F Cefepime Cefepime S F Cefoxitin Cefoxitin R F Cefpodoxime Cefpodoxime S F Ertapenem Ertapenem S F Gentamicin Gentamicin S F Levofloxacin Levofloxacin S F Tetracycline Tetracycline S F Tobramycin Tobramycin S F Trimethoprim/Sulfamethoxazole Trimethoprim/Sulfamethoxazole S F Organism: 8.3 Antibiotic Interpretation JORGE Status AMOXICILLIN/CLAVULANIC ACID AMOXICILLIN/CLAVULANIC ACID S F Ampicillin Ampicillin R F Cefazolin Cefazolin S F Cefepime Cefepime S F Cefoxitin Cefoxitin S F Cefpodoxime Cefpodoxime S F Ceftriaxone Ceftriaxone S F Ciprofloxacin Ciprofloxacin S F Ertapenem Ertapenem S F Gentamicin Gentamicin S F Levofloxacin Levofloxacin S F Meropenem Meropenem S F Tetracycline Tetracycline S F Tobramycin Tobramycin S F Trimethoprim/Sulfamethoxazole Trimethoprim/Sulfamethoxazole S F Piperacillin/Tazobactam Piperacillin/Tazobactam S F Lower Respiratory Cultureisolates may be warranted if clinically indicated. Lower Respiratory Culture WILL FOLLOW O:ENTASB Isolated O:GNR Isolated O:KLEBPN Isolated Organism: 8.1 Antibiotic Interpretation JORGE Status AMOXICILLIN/CLAVULANIC ACID AMOXICILLIN/CLAVULANIC ACID R F Cefepime Cefepime S F Cefoxitin Cefoxitin R F Cefpodoxime Cefpodoxime S F Ertapenem Ertapenem S F Gentamicin Gentamicin S F Levofloxacin Levofloxacin S F Tetracycline Tetracycline S F Tobramycin Tobramycin S F Trimethoprim/Sulfamethoxazole Trimethoprim/Sulfamethoxazole S F Organism: 8.3 Antibiotic Interpretation JORGE Status AMOXICILLIN/CLAVULANIC ACID AMOXICILLIN/CLAVULANIC ACID S F Ampicillin Ampicillin R F Cefazolin Cefazolin S F Cefepime Cefepime S F Cefoxitin Cefoxitin S F Cefpodoxime Cefpodoxime S F Ceftriaxone Ceftriaxone S F Ciprofloxacin Ciprofloxacin S F Ertapenem Ertapenem S F Gentamicin Gentamicin S F Levofloxacin Levofloxacin S F Meropenem Meropenem S F Tetracycline Tetracycline S F Tobramycin Tobramycin S F Trimethoprim/Sulfamethoxazole Trimethoprim/Sulfamethoxazole S F Piperacillin/Tazobactam Piperacillin/Tazobactam S F Lower Respiratory Culture(CLSI [id number]) Lower Respiratory Culture WILL FOLLOW O:ENTASB Isolated O:GNR Isolated O:KLEBPN Isolated Organism: 8.1 Antibiotic Interpretation JORGE Status AMOXICILLIN/CLAVULANIC ACID AMOXICILLIN/CLAVULANIC ACID R F Cefepime Cefepime S F Cefoxitin Cefoxitin R F Cefpodoxime Cefpodoxime S F Ertapenem Ertapenem S F Gentamicin Gentamicin S F Levofloxacin Levofloxacin S F Tetracycline Tetracycline S F Tobramycin Tobramycin S F Trimethoprim/Sulfamethoxazole Trimethoprim/Sulfamethoxazole S F Organism: 8.3 Antibiotic Interpretation JORGE Status AMOXICILLIN/CLAVULANIC ACID AMOXICILLIN/CLAVULANIC ACID S F Ampicillin Ampicillin R F Cefazolin Cefazolin S F Cefepime Cefepime S F Cefoxitin Cefoxitin S F Cefpodoxime Cefpodoxime S F Ceftriaxone Ceftriaxone S F Ciprofloxacin Ciprofloxacin S F Ertapenem Ertapenem S F Gentamicin Gentamicin S F Levofloxacin Levofloxacin S F Meropenem Meropenem S F Tetracycline Tetracycline S F Tobramycin Tobramycin S F Trimethoprim/Sulfamethoxazole Trimethoprim/Sulfamethoxazole S F Piperacillin/Tazobactam Piperacillin/Tazobactam S F Lower Respiratory CultureHeavy growth Lower Respiratory Culture WILL FOLLOW O:ENTASB Isolated O:GNR Isolated O:KLEBPN Isolated Organism: 8.1 Antibiotic Interpretation JORGE Status AMOXICILLIN/CLAVULANIC ACID AMOXICILLIN/CLAVULANIC ACID R F Cefepime Cefepime S F Cefoxitin Cefoxitin R F Cefpodoxime Cefpodoxime S F Ertapenem Ertapenem S F Gentamicin Gentamicin S F Levofloxacin Levofloxacin S F Tetracycline Tetracycline S F Tobramycin Tobramycin S F Trimethoprim/Sulfamethoxazole Trimethoprim/Sulfamethoxazole S F Organism: 8.3 Antibiotic Interpretation JORGE Status AMOXICILLIN/CLAVULANIC ACID AMOXICILLIN/CLAVULANIC ACID S F Ampicillin Ampicillin R F Cefazolin Cefazolin S F Cefepime Cefepime S F Cefoxitin Cefoxitin S F Cefpodoxime Cefpodoxime S F Ceftriaxone Ceftriaxone S F Ciprofloxacin Ciprofloxacin S F Ertapenem Ertapenem S F Gentamicin Gentamicin S F Levofloxacin Levofloxacin S F Meropenem Meropenem S F Tetracycline Tetracycline S F Tobramycin Tobramycin S F Trimethoprim/Sulfamethoxazole Trimethoprim/Sulfamethoxazole S F Piperacillin/Tazobactam Piperacillin/Tazobactam S F Lower Respiratory CultureEnterobacter asburiae Lower Respiratory Culture WILL FOLLOW O:ENTASB Isolated O:GNR Isolated O:KLEBPN Isolated Organism: 8.1 Antibiotic Interpretation JORGE Status AMOXICILLIN/CLAVULANIC ACID AMOXICILLIN/CLAVULANIC ACID R F Cefepime Cefepime S F Cefoxitin Cefoxitin R F Cefpodoxime Cefpodoxime S F Ertapenem Ertapenem S F Gentamicin Gentamicin S F Levofloxacin Levofloxacin S F Tetracycline Tetracycline S F Tobramycin Tobramycin S F Trimethoprim/Sulfamethoxazole Trimethoprim/Sulfamethoxazole S F Organism: 8.3 Antibiotic Interpretation JORGE Status AMOXICILLIN/CLAVULANIC ACID AMOXICILLIN/CLAVULANIC ACID S F Ampicillin Ampicillin R F Cefazolin Cefazolin S F Cefepime Cefepime S F Cefoxitin Cefoxitin S F Cefpodoxime Cefpodoxime S F Ceftriaxone Ceftriaxone S F Ciprofloxacin Ciprofloxacin S F Ertapenem Ertapenem S F Gentamicin Gentamicin S F Levofloxacin Levofloxacin S F Meropenem Meropenem S F Tetracycline Tetracycline S F Tobramycin Tobramycin S F Trimethoprim/Sulfamethoxazole Trimethoprim/Sulfamethoxazole S F Piperacillin/Tazobactam Piperacillin/Tazobactam S F Lower Respiratory CultureSee Below For Report Lower Respiratory Culture WILL FOLLOW O:ENTASB Isolated O:GNR Isolated O:KLEBPN Isolated Organism: 8.1 Antibiotic Interpretation JORGE Status AMOXICILLIN/CLAVULANIC ACID AMOXICILLIN/CLAVULANIC ACID R F Cefepime Cefepime S F Cefoxitin Cefoxitin R F Cefpodoxime Cefpodoxime S F Ertapenem Ertapenem S F Gentamicin Gentamicin S F Levofloxacin Levofloxacin S F Tetracycline Tetracycline S F Tobramycin Tobramycin S F Trimethoprim/Sulfamethoxazole Trimethoprim/Sulfamethoxazole S F Organism: 8.3 Antibiotic Interpretation JORGE Status AMOXICILLIN/CLAVULANIC ACID AMOXICILLIN/CLAVULANIC ACID S F Ampicillin Ampicillin R F Cefazolin Cefazolin S F Cefepime Cefepime S F Cefoxitin Cefoxitin S F Cefpodoxime Cefpodoxime S F Ceftriaxone Ceftriaxone S F Ciprofloxacin Ciprofloxacin S F Ertapenem Ertapenem S F Gentamicin Gentamicin S F Levofloxacin Levofloxacin S F Meropenem Meropenem S F Tetracycline Tetracycline S F Tobramycin Tobramycin S F Trimethoprim/Sulfamethoxazole Trimethoprim/Sulfamethoxazole S F Piperacillin/Tazobactam Piperacillin/Tazobactam S F Lower Respiratory CultureSee Below For Report Lower Respiratory Culture WILL FOLLOW O:ENTASB Isolated O:GNR Isolated O:KLEBPN Isolated Organism: 8.1 Antibiotic Interpretation JORGE Status AMOXICILLIN/CLAVULANIC ACID AMOXICILLIN/CLAVULANIC ACID R F Cefepime Cefepime S F Cefoxitin Cefoxitin R F Cefpodoxime Cefpodoxime S F Ertapenem Ertapenem S F Gentamicin Gentamicin S F Levofloxacin Levofloxacin S F Tetracycline Tetracycline S F Tobramycin Tobramycin S F Trimethoprim/Sulfamethoxazole Trimethoprim/Sulfamethoxazole S F Organism: 8.3 Antibiotic Interpretation JORGE Status AMOXICILLIN/CLAVULANIC ACID AMOXICILLIN/CLAVULANIC ACID S F Ampicillin Ampicillin R F Cefazolin Cefazolin S F Cefepime Cefepime S F Cefoxitin Cefoxitin S F Cefpodoxime Cefpodoxime S F Ceftriaxone Ceftriaxone S F Ciprofloxacin Ciprofloxacin S F Ertapenem Ertapenem S F Gentamicin Gentamicin S F Levofloxacin Levofloxacin S F Meropenem Meropenem S F Tetracycline Tetracycline S F Tobramycin Tobramycin S F Trimethoprim/Sulfamethoxazole Trimethoprim/Sulfamethoxazole S F Piperacillin/Tazobactam Piperacillin/Tazobactam S F Lower Respiratory CultureSee Below For Report Lower Respiratory Culture WILL FOLLOW O:ENTASB Isolated O:GNR Isolated O:KLEBPN Isolated Organism: 8.1 Antibiotic Interpretation JORGE Status AMOXICILLIN/CLAVULANIC ACID AMOXICILLIN/CLAVULANIC ACID R F Cefepime Cefepime S F Cefoxitin Cefoxitin R F Cefpodoxime Cefpodoxime S F Ertapenem Ertapenem S F Gentamicin Gentamicin S F Levofloxacin Levofloxacin S F Tetracycline Tetracycline S F Tobramycin Tobramycin S F Trimethoprim/Sulfamethoxazole Trimethoprim/Sulfamethoxazole S F Organism: 8.3 Antibiotic Interpretation JORGE Status AMOXICILLIN/CLAVULANIC ACID AMOXICILLIN/CLAVULANIC ACID S F Ampicillin Ampicillin R F Cefazolin Cefazolin S F Cefepime Cefepime S F Cefoxitin Cefoxitin S F Cefpodoxime Cefpodoxime S F Ceftriaxone Ceftriaxone S F Ciprofloxacin Ciprofloxacin S F Ertapenem Ertapenem S F Gentamicin Gentamicin S F Levofloxacin Levofloxacin S F Meropenem Meropenem S F Tetracycline Tetracycline S F Tobramycin Tobramycin S F Trimethoprim/Sulfamethoxazole Trimethoprim/Sulfamethoxazole S F Piperacillin/Tazobactam Piperacillin/Tazobactam S F [facility] Res[facility] CulturePerformed at: [facility] Culture WILL FOLLOW O:ENTASB Isolated O:GNR Isolated O:KLEBPN Isolated Organism: 8.1 Antibiotic Interpretation JORGE Status AMOXICILLIN/CLAVULANIC ACID AMOXICILLIN/CLAVULANIC ACID R F Cefepime Cefepime S F Cefoxitin Cefoxitin R F Cefpodoxime Cefpodoxime S F Ertapenem Ertapenem S F Gentamicin Gentamicin S F Levofloxacin Levofloxacin S F Tetracycline Tetracycline S F Tobramycin Tobramycin S F Trimethoprim/Sulfamethoxazole Trimethoprim/Sulfamethoxazole S F Organism: 8.3 Antibiotic Interpretation JORGE Status AMOXICILLIN/CLAVULANIC ACID AMOXICILLIN/CLAVULANIC ACID S F Ampicillin Ampicillin R F Cefazolin Cefazolin S F Cefepime Cefepime S F Cefoxitin Cefoxitin S F Cefpodoxime Cefpodoxime S F Ceftriaxone Ceftriaxone S F Ciprofloxacin Ciprofloxacin S F Ertapenem Ertapenem S F Gentamicin Gentamicin S F Levofloxacin Levofloxacin S F Meropenem Meropenem S F Tetracycline Tetracycline S F Tobramycin Tobramycin S F Trimethoprim/Sulfamethoxazole Trimethoprim/Sulfamethoxazole S F Piperacillin/Tazobactam Piperacillin/Tazobactam S F Lower Respiratory [id number] [place] [id number] Lower Respiratory Culture WILL FOLLOW O:ENTASB Isolated O:GNR Isolated O:KLEBPN Isolated Organism: 8.1 Antibiotic Interpretation JORGE Status AMOXICILLIN/CLAVULANIC ACID AMOXICILLIN/CLAVULANIC ACID R F Cefepime Cefepime S F Cefoxitin Cefoxitin R F Cefpodoxime Cefpodoxime S F Ertapenem Ertapenem S F Gentamicin Gentamicin S F Levofloxacin Levofloxacin S F Tetracycline Tetracycline S F Tobramycin Tobramycin S F Trimethoprim/Sulfamethoxazole Trimethoprim/Sulfamethoxazole S F Organism: 8.3 Antibiotic Interpretation JORGE Status AMOXICILLIN/CLAVULANIC ACID AMOXICILLIN/CLAVULANIC ACID S F Ampicillin Ampicillin R F Cefazolin Cefazolin S F Cefepime Cefepime S F Cefoxitin Cefoxitin S F Cefpodoxime Cefpodoxime S F Ceftriaxone Ceftriaxone S F Ciprofloxacin Ciprofloxacin S F Ertapenem Ertapenem S F Gentamicin Gentamicin S F Levofloxacin Levofloxacin S F Meropenem Meropenem S F Tetracycline Tetracycline S F Tobramycin Tobramycin S F Trimethoprim/Sulfamethoxazole Trimethoprim/Sulfamethoxazole S F Piperacillin/Tazobactam Piperacillin/Tazobactam S F Lower Respiratory CultureLab Director: Roddy Strickland PhD, Phone: [phone] Lower Respiratory Culture WILL FOLLOW O:ENTASB Isolated O:GNR Isolated O:KLEBPN Isolated Organism: 8.1 Antibiotic Interpretation JORGE Status AMOXICILLIN/CLAVULANIC ACID AMOXICILLIN/CLAVULANIC ACID R F Cefepime Cefepime S F Cefoxitin Cefoxitin R F Cefpodoxime Cefpodoxime S F Ertapenem Ertapenem S F Gentamicin Gentamicin S F Levofloxacin Levofloxacin S F Tetracycline Tetracycline S F Tobramycin Tobramycin S F Trimethoprim/Sulfamethoxazole Trimethoprim/Sulfamethoxazole S F Organism: 8.3 Antibiotic Interpretation JORGE Status AMOXICILLIN/CLAVULANIC ACID AMOXICILLIN/CLAVULANIC ACID S F Ampicillin Ampicillin R F Cefazolin Cefazolin S F Cefepime Cefepime S F Cefoxitin Cefoxitin S F Cefpodoxime Cefpodoxime S F Ceftriaxone Ceftriaxone S F Ciprofloxacin Ciprofloxacin S F Ertapenem Ertapenem S F Gentamicin Gentamicin S F Levofloxacin Levofloxacin S F Meropenem Meropenem S F Tetracycline Tetracycline S F Tobramycin Tobramycin S F Trimethoprim/Sulfamethoxazole Trimethoprim/Sulfamethoxazole S F Piperacillin/Tazobactam Piperacillin/Tazobactam S F Lower Respiratory CultureSee Below For Report Lower Respiratory Culture WILL FOLLOW O:ENTASB Isolated O:GNR Isolated O:KLEBPN Isolated Organism: 8.1 Antibiotic Interpretation JORGE Status AMOXICILLIN/CLAVULANIC ACID AMOXICILLIN/CLAVULANIC ACID R F Cefepime Cefepime S F Cefoxitin Cefoxitin R F Cefpodoxime Cefpodoxime S F Ertapenem Ertapenem S F Gentamicin Gentamicin S F Levofloxacin Levofloxacin S F Tetracycline Tetracycline S F Tobramycin Tobramycin S F Trimethoprim/Sulfamethoxazole Trimethoprim/Sulfamethoxazole S F Organism: 8.3 Antibiotic Interpretation JORGE Status AMOXICILLIN/CLAVULANIC ACID AMOXICILLIN/CLAVULANIC ACID S F Ampicillin Ampicillin R F Cefazolin Cefazolin S F Cefepime Cefepime S F Cefoxitin Cefoxitin S F Cefpodoxime Cefpodoxime S F Ceftriaxone Ceftriaxone S F Ciprofloxacin Ciprofloxacin S F Ertapenem Ertapenem S F Gentamicin Gentamicin S F Levofloxacin Levofloxacin S F Meropenem Meropenem S F Tetracycline Tetracycline S F Tobramycin Tobramycin S F Trimethoprim/Sulfamethoxazole Trimethoprim/Sulfamethoxazole S F Piperacillin/Tazobactam Piperacillin/Tazobactam S F Lower Respiratory CultureSee Below For Report Lower Respiratory Culture WILL FOLLOW O:ENTASB Isolated O:GNR Isolated O:KLEBPN Isolated Organism: 8.1 Antibiotic Interpretation JORGE Status AMOXICILLIN/CLAVULANIC ACID AMOXICILLIN/CLAVULANIC ACID R F Cefepime Cefepime S F Cefoxitin Cefoxitin R F Cefpodoxime Cefpodoxime S F Ertapenem Ertapenem S F Gentamicin Gentamicin S F Levofloxacin Levofloxacin S F Tetracycline Tetracycline S F Tobramycin Tobramycin S F Trimethoprim/Sulfamethoxazole Trimethoprim/Sulfamethoxazole S F Organism: 8.3 Antibiotic Interpretation JORGE Status AMOXICILLIN/CLAVULANIC ACID AMOXICILLIN/CLAVULANIC ACID S F Ampicillin Ampicillin R F Cefazolin Cefazolin S F Cefepime Cefepime S F Cefoxitin Cefoxitin S F Cefpodoxime Cefpodoxime S F Ceftriaxone Ceftriaxone S F Ciprofloxacin Ciprofloxacin S F Ertapenem Ertapenem S F Gentamicin Gentamicin S F Levofloxacin Levofloxacin S F Meropenem Meropenem S F Tetracycline Tetracycline S F Tobramycin Tobramycin S F Trimethoprim/Sulfamethoxazole Trimethoprim/Sulfamethoxazole S F Piperacillin/Tazobactam Piperacillin/Tazobactam S F Lower Respiratory CultureSee Below For Report Lower Respiratory Culture WILL FOLLOW O:ENTASB Isolated O:GNR Isolated O:KLEBPN Isolated Organism: 8.1 Antibiotic Interpretation JORGE Status AMOXICILLIN/CLAVULANIC ACID AMOXICILLIN/CLAVULANIC ACID R F Cefepime Cefepime S F Cefoxitin Cefoxitin R F Cefpodoxime Cefpodoxime S F Ertapenem Ertapenem S F Gentamicin Gentamicin S F Levofloxacin Levofloxacin S F Tetracycline Tetracycline S F Tobramycin Tobramycin S F Trimethoprim/Sulfamethoxazole Trimethoprim/Sulfamethoxazole S F Organism: 8.3 Antibiotic Interpretation JORGE Status AMOXICILLIN/CLAVULANIC ACID AMOXICILLIN/CLAVULANIC ACID S F Ampicillin Ampicillin R F Cefazolin Cefazolin S F Cefepime Cefepime S F Cefoxitin Cefoxitin S F Cefpodoxime Cefpodoxime S F Ceftriaxone Ceftriaxone S F Ciprofloxacin Ciprofloxacin S F Ertapenem Ertapenem S F Gentamicin Gentamicin S F Levofloxacin Levofloxacin S F Meropenem Meropenem S F Tetracycline Tetracycline S F Tobramycin Tobramycin S F Trimethoprim/Sulfamethoxazole Trimethoprim/Sulfamethoxazole S F Piperacillin/Tazobactam Piperacillin/Tazobactam S F Lower Respiratory CultureSee Below For Report Lower Respiratory Culture WILL FOLLOW O:ENTASB Isolated O:GNR Isolated O:KLEBPN Isolated Organism: 8.1 Antibiotic Interpretation JORGE Status AMOXICILLIN/CLAVULANIC ACID AMOXICILLIN/CLAVULANIC ACID R F Cefepime Cefepime S F Cefoxitin Cefoxitin R F Cefpodoxime Cefpodoxime S F Ertapenem Ertapenem S F Gentamicin Gentamicin S F Levofloxacin Levofloxacin S F Tetracycline Tetracycline S F Tobramycin Tobramycin S F Trimethoprim/Sulfamethoxazole Trimethoprim/Sulfamethoxazole S F Organism: 8.3 Antibiotic Interpretation JORGE Status AMOXICILLIN/CLAVULANIC ACID AMOXICILLIN/CLAVULANIC ACID S F Ampicillin Ampicillin R F Cefazolin Cefazolin S F Cefepime Cefepime S F Cefoxitin Cefoxitin S F Cefpodoxime Cefpodoxime S F Ceftriaxone Ceftriaxone S F Ciprofloxacin Ciprofloxacin S F Ertapenem Ertapenem S F Gentamicin Gentamicin S F Levofloxacin Levofloxacin S F Meropenem Meropenem S F Tetracycline Tetracycline S F Tobramycin Tobramycin S F Trimethoprim/Sulfamethoxazole Trimethoprim/Sulfamethoxazole S F Piperacillin/Tazobactam Piperacillin/Tazobactam S F Lower Respiratory CultureSee Below For Report Lower Respiratory Culture WILL FOLLOW O:ENTASB Isolated O:GNR Isolated O:KLEBPN Isolated Organism: 8.1 Antibiotic Interpretation JORGE Status AMOXICILLIN/CLAVULANIC ACID AMOXICILLIN/CLAVULANIC ACID R F Cefepime Cefepime S F Cefoxitin Cefoxitin R F Cefpodoxime Cefpodoxime S F Ertapenem Ertapenem S F Gentamicin Gentamicin S F Levofloxacin Levofloxacin S F Tetracycline Tetracycline S F Tobramycin Tobramycin S F Trimethoprim/Sulfamethoxazole Trimethoprim/Sulfamethoxazole S F Organism: 8.3 Antibiotic Interpretation JORGE Status AMOXICILLIN/CLAVULANIC ACID AMOXICILLIN/CLAVULANIC ACID S F Ampicillin Ampicillin R F Cefazolin Cefazolin S F Cefepime Cefepime S F Cefoxitin Cefoxitin S F Cefpodoxime Cefpodoxime S F Ceftriaxone Ceftriaxone S F Ciprofloxacin Ciprofloxacin S F Ertapenem Ertapenem S F Gentamicin Gentamicin S F Levofloxacin Levofloxacin S F Meropenem Meropenem S F Tetracycline Tetracycline S F Tobramycin Tobramycin S F Trimethoprim/Sulfamethoxazole Trimethoprim/Sulfamethoxazole S F Piperacillin/Tazobactam Piperacillin/Tazobactam S F Lower Respiratory CultureSee Below For Report Lower Respiratory Culture WILL FOLLOW O:ENTASB Isolated O:GNR Isolated O:KLEBPN Isolated Organism: 8.1 Antibiotic Interpretation JORGE Status AMOXICILLIN/CLAVULANIC ACID AMOXICILLIN/CLAVULANIC ACID R F Cefepime Cefepime S F Cefoxitin Cefoxitin R F Cefpodoxime Cefpodoxime S F Ertapenem Ertapenem S F Gentamicin Gentamicin S F Levofloxacin Levofloxacin S F Tetracycline Tetracycline S F Tobramycin Tobramycin S F Trimethoprim/Sulfamethoxazole Trimethoprim/Sulfamethoxazole S F Organism: 8.3 Antibiotic Interpretation JORGE Status AMOXICILLIN/CLAVULANIC ACID AMOXICILLIN/CLAVULANIC ACID S F Ampicillin Ampicillin R F Cefazolin Cefazolin S F Cefepime Cefepime S F Cefoxitin Cefoxitin S F Cefpodoxime Cefpodoxime S F Ceftriaxone Ceftriaxone S F Ciprofloxacin Ciprofloxacin S F Ertapenem Ertapenem S F Gentamicin Gentamicin S F Levofloxacin Levofloxacin S F Meropenem Meropenem S F Tetracycline Tetracycline S F Tobramycin Tobramycin S F Trimethoprim/Sulfamethoxazole Trimethoprim/Sulfamethoxazole S F Piperacillin/Tazobactam Piperacillin/Tazobactam S F Lower Respiratory CultureSee Below For Report Lower Respiratory Culture WILL FOLLOW O:ENTASB Isolated O:GNR Isolated O:KLEBPN Isolated Organism: 8.1 Antibiotic Interpretation JORGE Status AMOXICILLIN/CLAVULANIC ACID AMOXICILLIN/CLAVULANIC ACID R F Cefepime Cefepime S F Cefoxitin Cefoxitin R F Cefpodoxime Cefpodoxime S F Ertapenem Ertapenem S F Gentamicin Gentamicin S F Levofloxacin Levofloxacin S F Tetracycline Tetracycline S F Tobramycin Tobramycin S F Trimethoprim/Sulfamethoxazole Trimethoprim/Sulfamethoxazole S F Organism: 8.3 Antibiotic Interpretation JORGE Status AMOXICILLIN/CLAVULANIC ACID AMOXICILLIN/CLAVULANIC ACID S F Ampicillin Ampicillin R F Cefazolin Cefazolin S F Cefepime Cefepime S F Cefoxitin Cefoxitin S F Cefpodoxime Cefpodoxime S F Ceftriaxone Ceftriaxone S F Ciprofloxacin Ciprofloxacin S F Ertapenem Ertapenem S F Gentamicin Gentamicin S F Levofloxacin Levofloxacin S F Meropenem Meropenem S F Tetracycline Tetracycline S F Tobramycin Tobramycin S F Trimethoprim/Sulfamethoxazole Trimethoprim/Sulfamethoxazole S F Piperacillin/Tazobactam Piperacillin/Tazobactam S F Lower Respiratory CultureSee Below For Report Lower Respiratory Culture WILL FOLLOW O:ENTASB Isolated O:GNR Isolated O:KLEBPN Isolated Organism: 8.1 Antibiotic Interpretation JORGE Status AMOXICILLIN/CLAVULANIC ACID AMOXICILLIN/CLAVULANIC ACID R F Cefepime Cefepime S F Cefoxitin Cefoxitin R F Cefpodoxime Cefpodoxime S F Ertapenem Ertapenem S F Gentamicin Gentamicin S F Levofloxacin Levofloxacin S F Tetracycline Tetracycline S F Tobramycin Tobramycin S F Trimethoprim/Sulfamethoxazole Trimethoprim/Sulfamethoxazole S F Organism: 8.3 Antibiotic Interpretation JORGE Status AMOXICILLIN/CLAVULANIC ACID AMOXICILLIN/CLAVULANIC ACID S F Ampicillin Ampicillin R F Cefazolin Cefazolin S F Cefepime Cefepime S F Cefoxitin Cefoxitin S F Cefpodoxime Cefpodoxime S F Ceftriaxone Ceftriaxone S F Ciprofloxacin Ciprofloxacin S F Ertapenem Ertapenem S F Gentamicin Gentamicin S F Levofloxacin Levofloxacin S F Meropenem Meropenem S F Tetracycline Tetracycline S F Tobramycin Tobramycin S F Trimethoprim/Sulfamethoxazole Trimethoprim/Sulfamethoxazole S F Piperacillin/Tazobactam Piperacillin/Tazobactam S F Lower Respiratory CultureSee Below For Report Lower Respiratory Culture WILL FOLLOW O:ENTASB Isolated O:GNR Isolated O:KLEBPN Isolated Organism: 8.1 Antibiotic Interpretation JORGE Status AMOXICILLIN/CLAVULANIC ACID AMOXICILLIN/CLAVULANIC ACID R F Cefepime Cefepime S F Cefoxitin Cefoxitin R F Cefpodoxime Cefpodoxime S F Ertapenem Ertapenem S F Gentamicin Gentamicin S F Levofloxacin Levofloxacin S F Tetracycline Tetracycline S F Tobramycin Tobramycin S F Trimethoprim/Sulfamethoxazole Trimethoprim/Sulfamethoxazole S F Organism: 8.3 Antibiotic Interpretation JORGE Status AMOXICILLIN/CLAVULANIC ACID AMOXICILLIN/CLAVULANIC ACID S F Ampicillin Ampicillin R F Cefazolin Cefazolin S F Cefepime Cefepime S F Cefoxitin Cefoxitin S F Cefpodoxime Cefpodoxime S F Ceftriaxone Ceftriaxone S F Ciprofloxacin Ciprofloxacin S F Ertapenem Ertapenem S F Gentamicin Gentamicin S F Levofloxacin Levofloxacin S F Meropenem Meropenem S F Tetracycline Tetracycline S F Tobramycin Tobramycin S F Trimethoprim/Sulfamethoxazole Trimethoprim/Sulfamethoxazole S F Piperacillin/Tazobactam Piperacillin/Tazobactam S F Lower Respiratory CultureSee Below For Report Lower Respiratory Culture WILL FOLLOW O:ENTASB Isolated O:GNR Isolated O:KLEBPN Isolated Organism: 8.1 Antibiotic Interpretation JORGE Status AMOXICILLIN/CLAVULANIC ACID AMOXICILLIN/CLAVULANIC ACID R F Cefepime Cefepime S F Cefoxitin Cefoxitin R F Cefpodoxime Cefpodoxime S F Ertapenem Ertapenem S F Gentamicin Gentamicin S F Levofloxacin Levofloxacin S F Tetracycline Tetracycline S F Tobramycin Tobramycin S F Trimethoprim/Sulfamethoxazole Trimethoprim/Sulfamethoxazole S F Organism: 8.3 Antibiotic Interpretation JORGE Status AMOXICILLIN/CLAVULANIC ACID AMOXICILLIN/CLAVULANIC ACID S F Ampicillin Ampicillin R F Cefazolin Cefazolin S F Cefepime Cefepime S F Cefoxitin Cefoxitin S F Cefpodoxime Cefpodoxime S F Ceftriaxone Ceftriaxone S F Ciprofloxacin Ciprofloxacin S F Ertapenem Ertapenem S F Gentamicin Gentamicin S F Levofloxacin Levofloxacin S F Meropenem Meropenem S F Tetracycline Tetracycline S F Tobramycin Tobramycin S F Trimethoprim/Sulfamethoxazole Trimethoprim/Sulfamethoxazole S F Piperacillin/Tazobactam Piperacillin/Tazobactam S F Lower Respiratory CultureSee Below For Report Lower Respiratory Culture WILL FOLLOW O:ENTASB Isolated O:GNR Isolated O:KLEBPN Isolated Organism: 8.1 Antibiotic Interpretation JORGE Status AMOXICILLIN/CLAVULANIC ACID AMOXICILLIN/CLAVULANIC ACID R F Cefepime Cefepime S F Cefoxitin Cefoxitin R F Cefpodoxime Cefpodoxime S F Ertapenem Ertapenem S F Gentamicin Gentamicin S F Levofloxacin Levofloxacin S F Tetracycline Tetracycline S F Tobramycin Tobramycin S F Trimethoprim/Sulfamethoxazole Trimethoprim/Sulfamethoxazole S F Organism: 8.3 Antibiotic Interpretation JORGE Status AMOXICILLIN/CLAVULANIC ACID AMOXICILLIN/CLAVULANIC ACID S F Ampicillin Ampicillin R F Cefazolin Cefazolin S F Cefepime Cefepime S F Cefoxitin Cefoxitin S F Cefpodoxime Cefpodoxime S F Ceftriaxone Ceftriaxone S F Ciprofloxacin Ciprofloxacin S F Ertapenem Ertapenem S F Gentamicin Gentamicin S F Levofloxacin Levofloxacin S F Meropenem Meropenem S F Tetracycline Tetracycline S F Tobramycin Tobramycin S F Trimethoprim/Sulfamethoxazole Trimethoprim/Sulfamethoxazole S F Piperacillin/Tazobactam Piperacillin/Tazobactam S F Lower Respiratory CultureSee Below For Report Lower Respiratory Culture WILL FOLLOW O:ENTASB Isolated O:GNR Isolated O:KLEBPN Isolated Organism: 8.1 Antibiotic Interpretation JORGE Status AMOXICILLIN/CLAVULANIC ACID AMOXICILLIN/CLAVULANIC ACID R F Cefepime Cefepime S F Cefoxitin Cefoxitin R F Cefpodoxime Cefpodoxime S F Ertapenem Ertapenem S F Gentamicin Gentamicin S F Levofloxacin Levofloxacin S F Tetracycline Tetracycline S F Tobramycin Tobramycin S F Trimethoprim/Sulfamethoxazole Trimethoprim/Sulfamethoxazole S F Organism: 8.3 Antibiotic Interpretation JORGE Status AMOXICILLIN/CLAVULANIC ACID AMOXICILLIN/CLAVULANIC ACID S F Ampicillin Ampicillin R F Cefazolin Cefazolin S F Cefepime Cefepime S F Cefoxitin Cefoxitin S F Cefpodoxime Cefpodoxime S F Ceftriaxone Ceftriaxone S F Ciprofloxacin Ciprofloxacin S F Ertapenem Ertapenem S F Gentamicin Gentamicin S F Levofloxacin Levofloxacin S F Meropenem Meropenem S F Tetracycline Tetracycline S F Tobramycin Tobramycin S F Trimethoprim/Sulfamethoxazole Trimethoprim/Sulfamethoxazole S F Piperacillin/Tazobactam Piperacillin/Tazobactam S F Lower Respiratory CultureSee Below For Report Lower Respiratory Culture WILL FOLLOW O:ENTASB Isolated O:GNR Isolated O:KLEBPN Isolated Organism: 8.1 Antibiotic Interpretation JORGE Status AMOXICILLIN/CLAVULANIC ACID AMOXICILLIN/CLAVULANIC ACID R F Cefepime Cefepime S F Cefoxitin Cefoxitin R F Cefpodoxime Cefpodoxime S F Ertapenem Ertapenem S F Gentamicin Gentamicin S F Levofloxacin Levofloxacin S F Tetracycline Tetracycline S F Tobramycin Tobramycin S F Trimethoprim/Sulfamethoxazole Trimethoprim/Sulfamethoxazole S F Organism: 8.3 Antibiotic Interpretation JORGE Status AMOXICILLIN/CLAVULANIC ACID AMOXICILLIN/CLAVULANIC ACID S F Ampicillin Ampicillin R F Cefazolin Cefazolin S F Cefepime Cefepime S F Cefoxitin Cefoxitin S F Cefpodoxime Cefpodoxime S F Ceftriaxone Ceftriaxone S F Ciprofloxacin Ciprofloxacin S F Ertapenem Ertapenem S F Gentamicin Gentamicin S F Levofloxacin Levofloxacin S F Meropenem Meropenem S F Tetracycline Tetracycline S F Tobramycin Tobramycin S F Trimethoprim/Sulfamethoxazole Trimethoprim/Sulfamethoxazole S F Piperacillin/Tazobactam Piperacillin/Tazobactam S F Lower Respiratory CultureSee Below For Report Lower Respiratory Culture WILL FOLLOW O:ENTASB Isolated O:GNR Isolated O:KLEBPN Isolated Organism: 8.1 Antibiotic Interpretation JORGE Status AMOXICILLIN/CLAVULANIC ACID AMOXICILLIN/CLAVULANIC ACID R F Cefepime Cefepime S F Cefoxitin Cefoxitin R F Cefpodoxime Cefpodoxime S F Ertapenem Ertapenem S F Gentamicin Gentamicin S F Levofloxacin Levofloxacin S F Tetracycline Tetracycline S F Tobramycin Tobramycin S F Trimethoprim/Sulfamethoxazole Trimethoprim/Sulfamethoxazole S F Organism: 8.3 Antibiotic Interpretation JORGE Status AMOXICILLIN/CLAVULANIC ACID AMOXICILLIN/CLAVULANIC ACID S F Ampicillin Ampicillin R F Cefazolin Cefazolin S F Cefepime Cefepime S F Cefoxitin Cefoxitin S F Cefpodoxime Cefpodoxime S F Ceftriaxone Ceftriaxone S F Ciprofloxacin Ciprofloxacin S F Ertapenem Ertapenem S F Gentamicin Gentamicin S F Levofloxacin Levofloxacin S F Meropenem Meropenem S F Tetracycline Tetracycline S F Tobramycin Tobramycin S F Trimethoprim/Sulfamethoxazole Trimethoprim/Sulfamethoxazole S F Piperacillin/Tazobactam Piperacillin/Tazobactam S F Lower Respiratory CultureSee Below For Report Lower Respiratory Culture WILL FOLLOW O:ENTASB Isolated O:GNR Isolated O:KLEBPN Isolated Organism: 8.1 Antibiotic Interpretation JORGE Status AMOXICILLIN/CLAVULANIC ACID AMOXICILLIN/CLAVULANIC ACID R F Cefepime Cefepime S F Cefoxitin Cefoxitin R F Cefpodoxime Cefpodoxime S F Ertapenem Ertapenem S F Gentamicin Gentamicin S F Levofloxacin Levofloxacin S F Tetracycline Tetracycline S F Tobramycin Tobramycin S F Trimethoprim/Sulfamethoxazole Trimethoprim/Sulfamethoxazole S F Organism: 8.3 Antibiotic Interpretation JORGE Status AMOXICILLIN/CLAVULANIC ACID AMOXICILLIN/CLAVULANIC ACID S F Ampicillin Ampicillin R F Cefazolin Cefazolin S F Cefepime Cefepime S F Cefoxitin Cefoxitin S F Cefpodoxime Cefpodoxime S F Ceftriaxone Ceftriaxone S F Ciprofloxacin Ciprofloxacin S F Ertapenem Ertapenem S F Gentamicin Gentamicin S F Levofloxacin Levofloxacin S F Meropenem Meropenem S F Tetracycline Tetracycline S F Tobramycin Tobramycin S F Trimethoprim/Sulfamethoxazole Trimethoprim/Sulfamethoxazole S F Piperacillin/Tazobactam Piperacillin/Tazobactam S F Lower Respiratory CultureSee Below For Report Lower Respiratory Culture WILL FOLLOW O:ENTASB Isolated O:GNR Isolated O:KLEBPN Isolated Organism: 8.1 Antibiotic Interpretation JORGE Status AMOXICILLIN/CLAVULANIC ACID AMOXICILLIN/CLAVULANIC ACID R F Cefepime Cefepime S F Cefoxitin Cefoxitin R F Cefpodoxime Cefpodoxime S F Ertapenem Ertapenem S F Gentamicin Gentamicin S F Levofloxacin Levofloxacin S F Tetracycline Tetracycline S F Tobramycin Tobramycin S F Trimethoprim/Sulfamethoxazole Trimethoprim/Sulfamethoxazole S F Organism: 8.3 Antibiotic Interpretation JORGE Status AMOXICILLIN/CLAVULANIC ACID AMOXICILLIN/CLAVULANIC ACID S F Ampicillin Ampicillin R F Cefazolin Cefazolin S F Cefepime Cefepime S F Cefoxitin Cefoxitin S F Cefpodoxime Cefpodoxime S F Ceftriaxone Ceftriaxone S F Ciprofloxacin Ciprofloxacin S F Ertapenem Ertapenem S F Gentamicin Gentamicin S F Levofloxacin Levofloxacin S F Meropenem Meropenem S F Tetracycline Tetracycline S F Tobramycin Tobramycin S F Trimethoprim/Sulfamethoxazole Trimethoprim/Sulfamethoxazole S F Piperacillin/Tazobactam Piperacillin/Tazobactam S F Lower Respiratory CultureSee Below For Report Lower Respiratory Culture WILL FOLLOW O:ENTASB Isolated O:GNR Isolated O:KLEBPN Isolated Organism: 8.1 Antibiotic Interpretation JORGE Status AMOXICILLIN/CLAVULANIC ACID AMOXICILLIN/CLAVULANIC ACID R F Cefepime Cefepime S F Cefoxitin Cefoxitin R F Cefpodoxime Cefpodoxime S F Ertapenem Ertapenem S F Gentamicin Gentamicin S F Levofloxacin Levofloxacin S F Tetracycline Tetracycline S F Tobramycin Tobramycin S F Trimethoprim/Sulfamethoxazole Trimethoprim/Sulfamethoxazole S F Organism: 8.3 Antibiotic Interpretation JORGE Status AMOXICILLIN/CLAVULANIC ACID AMOXICILLIN/CLAVULANIC ACID S F Ampicillin Ampicillin R F Cefazolin Cefazolin S F Cefepime Cefepime S F Cefoxitin Cefoxitin S F Cefpodoxime Cefpodoxime S F Ceftriaxone Ceftriaxone S F Ciprofloxacin Ciprofloxacin S F Ertapenem Ertapenem S F Gentamicin Gentamicin S F Levofloxacin Levofloxacin S F Meropenem Meropenem S F Tetracycline Tetracycline S F Tobramycin Tobramycin S F Trimethoprim/Sulfamethoxazole Trimethoprim/Sulfamethoxazole S F Piperacillin/Tazobactam Piperacillin/Tazobactam S F Lower Respiratory CultureSee Below For Report Lower Respiratory Culture WILL FOLLOW O:ENTASB Isolated O:GNR Isolated O:KLEBPN Isolated Organism: 8.1 Antibiotic Interpretation JORGE Status AMOXICILLIN/CLAVULANIC ACID AMOXICILLIN/CLAVULANIC ACID R F Cefepime Cefepime S F Cefoxitin Cefoxitin R F Cefpodoxime Cefpodoxime S F Ertapenem Ertapenem S F Gentamicin Gentamicin S F Levofloxacin Levofloxacin S F Tetracycline Tetracycline S F Tobramycin Tobramycin S F Trimethoprim/Sulfamethoxazole Trimethoprim/Sulfamethoxazole S F Organism: 8.3 Antibiotic Interpretation JORGE Status AMOXICILLIN/CLAVULANIC ACID AMOXICILLIN/CLAVULANIC ACID S F Ampicillin Ampicillin R F Cefazolin Cefazolin S F Cefepime Cefepime S F Cefoxitin Cefoxitin S F Cefpodoxime Cefpodoxime S F Ceftriaxone Ceftriaxone S F Ciprofloxacin Ciprofloxacin S F Ertapenem Ertapenem S F Gentamicin Gentamicin S F Levofloxacin Levofloxacin S F Meropenem Meropenem S F Tetracycline Tetracycline S F Tobramycin Tobramycin S F Trimethoprim/Sulfamethoxazole Trimethoprim/Sulfamethoxazole S F Piperacillin/Tazobactam Piperacillin/Tazobactam S F Lower Respiratory CultureSee Below For Report Lower Respiratory Culture WILL FOLLOW O:ENTASB Isolated O:GNR Isolated O:KLEBPN Isolated Organism: 8.1 Antibiotic Interpretation JORGE Status AMOXICILLIN/CLAVULANIC ACID AMOXICILLIN/CLAVULANIC ACID R F Cefepime Cefepime S F Cefoxitin Cefoxitin R F Cefpodoxime Cefpodoxime S F Ertapenem Ertapenem S F Gentamicin Gentamicin S F Levofloxacin Levofloxacin S F Tetracycline Tetracycline S F Tobramycin Tobramycin S F Trimethoprim/Sulfamethoxazole Trimethoprim/Sulfamethoxazole S F Organism: 8.3 Antibiotic Interpretation JORGE Status AMOXICILLIN/CLAVULANIC ACID AMOXICILLIN/CLAVULANIC ACID S F Ampicillin Ampicillin R F Cefazolin Cefazolin S F Cefepime Cefepime S F Cefoxitin Cefoxitin S F Cefpodoxime Cefpodoxime S F Ceftriaxone Ceftriaxone S F Ciprofloxacin Ciprofloxacin S F Ertapenem Ertapenem S F Gentamicin Gentamicin S F Levofloxacin Levofloxacin S F Meropenem Meropenem S F Tetracycline Tetracycline S F Tobramycin Tobramycin S F Trimethoprim/Sulfamethoxazole Trimethoprim/Sulfamethoxazole S F Piperacillin/Tazobactam Piperacillin/Tazobactam S F Lower Respiratory CultureSee Below For Report Lower Respiratory Culture WILL FOLLOW O:ENTASB Isolated O:GNR Isolated O:KLEBPN Isolated Organism: 8.1 Antibiotic Interpretation JORGE Status AMOXICILLIN/CLAVULANIC ACID AMOXICILLIN/CLAVULANIC ACID R F Cefepime Cefepime S F Cefoxitin Cefoxitin R F Cefpodoxime Cefpodoxime S F Ertapenem Ertapenem S F Gentamicin Gentamicin S F Levofloxacin Levofloxacin S F Tetracycline Tetracycline S F Tobramycin Tobramycin S F Trimethoprim/Sulfamethoxazole Trimethoprim/Sulfamethoxazole S F Organism: 8.3 Antibiotic Interpretation JORGE Status AMOXICILLIN/CLAVULANIC ACID AMOXICILLIN/CLAVULANIC ACID S F Ampicillin Ampicillin R F Cefazolin Cefazolin S F Cefepime Cefepime S F Cefoxitin Cefoxitin S F Cefpodoxime Cefpodoxime S F Ceftriaxone Ceftriaxone S F Ciprofloxacin Ciprofloxacin S F Ertapenem Ertapenem S F Gentamicin Gentamicin S F Levofloxacin Levofloxacin S F Meropenem Meropenem S F Tetracycline Tetracycline S F Tobramycin Tobramycin S F Trimethoprim/Sulfamethoxazole Trimethoprim/Sulfamethoxazole S F Piperacillin/Tazobactam Piperacillin/Tazobactam S F Lower Respiratory CultureSee Below For Report Lower Respiratory Culture WILL FOLLOW O:ENTASB Isolated O:GNR Isolated O:KLEBPN Isolated Organism: 8.1 Antibiotic Interpretation JORGE Status AMOXICILLIN/CLAVULANIC ACID AMOXICILLIN/CLAVULANIC ACID R F Cefepime Cefepime S F Cefoxitin Cefoxitin R F Cefpodoxime Cefpodoxime S F Ertapenem Ertapenem S F Gentamicin Gentamicin S F Levofloxacin Levofloxacin S F Tetracycline Tetracycline S F Tobramycin Tobramycin S F Trimethoprim/Sulfamethoxazole Trimethoprim/Sulfamethoxazole S F Organism: 8.3 Antibiotic Interpretation JORGE Status AMOXICILLIN/CLAVULANIC ACID AMOXICILLIN/CLAVULANIC ACID S F Ampicillin Ampicillin R F Cefazolin Cefazolin S F Cefepime Cefepime S F Cefoxitin Cefoxitin S F Cefpodoxime Cefpodoxime S F Ceftriaxone Ceftriaxone S F Ciprofloxacin Ciprofloxacin S F Ertapenem Ertapenem S F Gentamicin Gentamicin S F Levofloxacin Levofloxacin S F Meropenem Meropenem S F Tetracycline Tetracycline S F Tobramycin Tobramycin S F Trimethoprim/Sulfamethoxazole Trimethoprim/Sulfamethoxazole S F Piperacillin/Tazobactam Piperacillin/Tazobactam S F Lower Respiratory CultureSee Below For Report Lower Respiratory Culture WILL FOLLOW O:ENTASB Isolated O:GNR Isolated O:KLEBPN Isolated Organism: 8.1 Antibiotic Interpretation JORGE Status AMOXICILLIN/CLAVULANIC ACID AMOXICILLIN/CLAVULANIC ACID R F Cefepime Cefepime S F Cefoxitin Cefoxitin R F Cefpodoxime Cefpodoxime S F Ertapenem Ertapenem S F Gentamicin Gentamicin S F Levofloxacin Levofloxacin S F Tetracycline Tetracycline S F Tobramycin Tobramycin S F Trimethoprim/Sulfamethoxazole Trimethoprim/Sulfamethoxazole S F Organism: 8.3 Antibiotic Interpretation JORGE Status AMOXICILLIN/CLAVULANIC ACID AMOXICILLIN/CLAVULANIC ACID S F Ampicillin Ampicillin R F Cefazolin Cefazolin S F Cefepime Cefepime S F Cefoxitin Cefoxitin S F Cefpodoxime Cefpodoxime S F Ceftriaxone Ceftriaxone S F Ciprofloxacin Ciprofloxacin S F Ertapenem Ertapenem S F Gentamicin Gentamicin S F Levofloxacin Levofloxacin S F Meropenem Meropenem S F Tetracycline Tetracycline S F Tobramycin Tobramycin S F Trimethoprim/Sulfamethoxazole Trimethoprim/Sulfamethoxazole S F Piperacillin/Tazobactam Piperacillin/Tazobactam S F Lower Respiratory CultureSee Below For Report Lower Respiratory Culture WILL FOLLOW O:ENTASB Isolated O:GNR Isolated O:KLEBPN Isolated Organism: 8.1 Antibiotic Interpretation JORGE Status AMOXICILLIN/CLAVULANIC ACID AMOXICILLIN/CLAVULANIC ACID R F Cefepime Cefepime S F Cefoxitin Cefoxitin R F Cefpodoxime Cefpodoxime S F Ertapenem Ertapenem S F Gentamicin Gentamicin S F Levofloxacin Levofloxacin S F Tetracycline Tetracycline S F Tobramycin Tobramycin S F Trimethoprim/Sulfamethoxazole Trimethoprim/Sulfamethoxazole S F Organism: 8.3 Antibiotic Interpretation JORGE Status AMOXICILLIN/CLAVULANIC ACID AMOXICILLIN/CLAVULANIC ACID S F Ampicillin Ampicillin R F Cefazolin Cefazolin S F Cefepime Cefepime S F Cefoxitin Cefoxitin S F Cefpodoxime Cefpodoxime S F Ceftriaxone Ceftriaxone S F Ciprofloxacin Ciprofloxacin S F Ertapenem Ertapenem S F Gentamicin Gentamicin S F Levofloxacin Levofloxacin S F Meropenem Meropenem S F Tetracycline Tetracycline S F Tobramycin Tobramycin S F Trimethoprim/Sulfamethoxazole Trimethoprim/Sulfamethoxazole S F Piperacillin/Tazobactam Piperacillin/Tazobactam S F Lower Respiratory CultureSee Below For Report Lower Respiratory Culture WILL FOLLOW O:ENTASB Isolated O:GNR Isolated O:KLEBPN Isolated Organism: 8.1 Antibiotic Interpretation JORGE Status AMOXICILLIN/CLAVULANIC ACID AMOXICILLIN/CLAVULANIC ACID R F Cefepime Cefepime S F Cefoxitin Cefoxitin R F Cefpodoxime Cefpodoxime S F Ertapenem Ertapenem S F Gentamicin Gentamicin S F Levofloxacin Levofloxacin S F Tetracycline Tetracycline S F Tobramycin Tobramycin S F Trimethoprim/Sulfamethoxazole Trimethoprim/Sulfamethoxazole S F Organism: 8.3 Antibiotic Interpretation JORGE Status AMOXICILLIN/CLAVULANIC ACID AMOXICILLIN/CLAVULANIC ACID S F Ampicillin Ampicillin R F Cefazolin Cefazolin S F Cefepime Cefepime S F Cefoxitin Cefoxitin S F Cefpodoxime Cefpodoxime S F Ceftriaxone Ceftriaxone S F Ciprofloxacin Ciprofloxacin S F Ertapenem Ertapenem S F Gentamicin Gentamicin S F Levofloxacin Levofloxacin S F Meropenem Meropenem S F Tetracycline Tetracycline S F Tobramycin Tobramycin S F Trimethoprim/Sulfamethoxazole Trimethoprim/Sulfamethoxazole S F Piperacillin/Tazobactam Piperacillin/Tazobactam S F Lower Respiratory CultureSee Below For Report Lower Respiratory Culture WILL FOLLOW O:ENTASB Isolated O:GNR Isolated O:KLEBPN Isolated Organism: 8.1 Antibiotic Interpretation JORGE Status AMOXICILLIN/CLAVULANIC ACID AMOXICILLIN/CLAVULANIC ACID R F Cefepime Cefepime S F Cefoxitin Cefoxitin R F Cefpodoxime Cefpodoxime S F Ertapenem Ertapenem S F Gentamicin Gentamicin S F Levofloxacin Levofloxacin S F Tetracycline Tetracycline S F Tobramycin Tobramycin S F Trimethoprim/Sulfamethoxazole Trimethoprim/Sulfamethoxazole S F Organism: 8.3 Antibiotic Interpretation JORGE Status AMOXICILLIN/CLAVULANIC ACID AMOXICILLIN/CLAVULANIC ACID S F Ampicillin Ampicillin R F Cefazolin Cefazolin S F Cefepime Cefepime S F Cefoxitin Cefoxitin S F Cefpodoxime Cefpodoxime S F Ceftriaxone Ceftriaxone S F Ciprofloxacin Ciprofloxacin S F Ertapenem Ertapenem S F Gentamicin Gentamicin S F Levofloxacin Levofloxacin S F Meropenem Meropenem S F Tetracycline Tetracycline S F Tobramycin Tobramycin S F Trimethoprim/Sulfamethoxazole Trimethoprim/Sulfamethoxazole S F Piperacillin/Tazobactam Piperacillin/Tazobactam S F Lower Respiratory CultureSee Below For Report Lower Respiratory Culture WILL FOLLOW O:ENTASB Isolated O:GNR Isolated O:KLEBPN Isolated Organism: 8.1 Antibiotic Interpretation JORGE Status AMOXICILLIN/CLAVULANIC ACID AMOXICILLIN/CLAVULANIC ACID R F Cefepime Cefepime S F Cefoxitin Cefoxitin R F Cefpodoxime Cefpodoxime S F Ertapenem Ertapenem S F Gentamicin Gentamicin S F Levofloxacin Levofloxacin S F Tetracycline Tetracycline S F Tobramycin Tobramycin S F Trimethoprim/Sulfamethoxazole Trimethoprim/Sulfamethoxazole S F Organism: 8.3 Antibiotic Interpretation JORGE Status AMOXICILLIN/CLAVULANIC ACID AMOXICILLIN/CLAVULANIC ACID S F Ampicillin Ampicillin R F Cefazolin Cefazolin S F Cefepime Cefepime S F Cefoxitin Cefoxitin S F Cefpodoxime Cefpodoxime S F Ceftriaxone Ceftriaxone S F Ciprofloxacin Ciprofloxacin S F Ertapenem Ertapenem S F Gentamicin Gentamicin S F Levofloxacin Levofloxacin S F Meropenem Meropenem S F Tetracycline Tetracycline S F Tobramycin Tobramycin S F Trimethoprim/Sulfamethoxazole Trimethoprim/Sulfamethoxazole S F Piperacillin/Tazobactam Piperacillin/Tazobactam S F Lower Respiratory CultureSee Below For Report Lower Respiratory Culture WILL FOLLOW O:ENTASB Isolated O:GNR Isolated O:KLEBPN Isolated Organism: 8.1 Antibiotic Interpretation JORGE Status AMOXICILLIN/CLAVULANIC ACID AMOXICILLIN/CLAVULANIC ACID R F Cefepime Cefepime S F Cefoxitin Cefoxitin R F Cefpodoxime Cefpodoxime S F Ertapenem Ertapenem S F Gentamicin Gentamicin S F Levofloxacin Levofloxacin S F Tetracycline Tetracycline S F Tobramycin Tobramycin S F Trimethoprim/Sulfamethoxazole Trimethoprim/Sulfamethoxazole S F Organism: 8.3 Antibiotic Interpretation JORGE Status AMOXICILLIN/CLAVULANIC ACID AMOXICILLIN/CLAVULANIC ACID S F Ampicillin Ampicillin R F Cefazolin Cefazolin S F Cefepime Cefepime S F Cefoxitin Cefoxitin S F Cefpodoxime Cefpodoxime S F Ceftriaxone Ceftriaxone S F Ciprofloxacin Ciprofloxacin S F Ertapenem Ertapenem S F Gentamicin Gentamicin S F Levofloxacin Levofloxacin S F Meropenem Meropenem S F Tetracycline Tetracycline S F Tobramycin Tobramycin S F Trimethoprim/Sulfamethoxazole Trimethoprim/Sulfamethoxazole S F Piperacillin/Tazobactam Piperacillin/Tazobactam S F Lower Respiratory CultureSee Below For Report Lower Respiratory Culture WILL FOLLOW O:ENTASB Isolated O:GNR Isolated O:KLEBPN Isolated Organism: 8.1 Antibiotic Interpretation JORGE Status AMOXICILLIN/CLAVULANIC ACID AMOXICILLIN/CLAVULANIC ACID R F Cefepime Cefepime S F Cefoxitin Cefoxitin R F Cefpodoxime Cefpodoxime S F Ertapenem Ertapenem S F Gentamicin Gentamicin S F Levofloxacin Levofloxacin S F Tetracycline Tetracycline S F Tobramycin Tobramycin S F Trimethoprim/Sulfamethoxazole Trimethoprim/Sulfamethoxazole S F Organism: 8.3 Antibiotic Interpretation JORGE Status AMOXICILLIN/CLAVULANIC ACID AMOXICILLIN/CLAVULANIC ACID S F Ampicillin Ampicillin R F Cefazolin Cefazolin S F Cefepime Cefepime S F Cefoxitin Cefoxitin S F Cefpodoxime Cefpodoxime S F Ceftriaxone Ceftriaxone S F Ciprofloxacin Ciprofloxacin S F Ertapenem Ertapenem S F Gentamicin Gentamicin S F Levofloxacin Levofloxacin S F Meropenem Meropenem S F Tetracycline Tetracycline S F Tobramycin Tobramycin S F Trimethoprim/Sulfamethoxazole Trimethoprim/Sulfamethoxazole S F Piperacillin/Tazobactam Piperacillin/Tazobactam S F Performing Lab:see note LC - [facility] LB SEE REPORT - [employer] Id information not found for OBX-specific reproducer legend Blood Culture 2 Reviewed date:08/18/2025 08:34:10 PM Interpretation: Performing Lab: Notes/Report: [facility] ,Blood Culture 2See Below For Report Blood Culture 2 NG5D NO GROWTH AT 5 DAYS.^NO GROWTH AT 5 DAYS. Performing Lab:see noteML - [facility] LBEpithelial Cells Reviewed date:08/20/2025 02:08:58 PM Interpretation: Performing Lab: Notes/Report: [facility] ,Epithelial CellsSee Below For Report Epithelial Cells Few Performing Lab:see noteLC - [facility] LBWhite Blood Cells Reviewed date:08/20/2025 02:08:58 PM Interpretation: Performing Lab: Notes/Report: [facility] ,White Blood CellsSee Below For Report White Blood Cells White Blood CellsNone seen White Blood Cells Performing Lab:see noteLC - [facility] LBXR chest 2V Reviewed date:08/12/2025 02:32:35 PM Interpretation: Performing Lab: Notes/Report: Source Facility: [place] [address] XRay Report Signed Patient: ADELFO NOLAN MR#: [id number] : 1955 Acct:[id number] Age/Sex: 69 / M ADM Date: 08/12/25 Loc: LAB Attending Dr: Elba De La Cruz M.D. Ordering Physician: Elba De La Cruz M.D. Date of Service: 08/12/25 Procedure(s): XR chest 2V Accession Number(s): [id number] cc: Elba De La Cruz M.D. [place] [address] Patient Name: ADELFO NOLAN MRN: [id number] date: 1955 Sex: M Assigned Patient Location: LAB Current Patient Location: LAB Accession/Order Number: [id number] Exam Date: 08/12/2025 12:10 Report Date: 08/12/2025 13:30 At the request of: ELBA DE LA CRUZ MD Procedure: XR chest 2V Chest 2 views CLINICAL HISTORY: Mold Exposure COMPARISON: None FINDINGS: XR/XR chest 2V IMPRESSION: NO ACUTE CARDIOPULMONARY ABNORMALITY. Impression dictated by: Bubba Tay Jr. DMeghaOMegha 08/12/2025 1:30 PM Dictation Location: [place] [address] Electronically authenticated by: [id number] Y Date: 08/12/2025 13:30 Dictated By: Bubba Tay M.D. Signed By: 08/12/25 1332 DD/ 1330 TD/TT: Labor Delivery Specialist:Blood Culture 1 Reviewed date:08/18/2025 08:34:10 PM Interpretation: Performing Lab: Notes/Report: [facility] ,Blood Culture 1See Below For Report Blood Culture 1 NG5D NO GROWTH AT 5 DAYS.^NO GROWTH AT 5 DAYS. Performing Lab:see noteML - [facility] LB Reason For Referral No Information Medications Medication SIG (Take, Route, Frequency, Duration) Notes Start Date End Date Status predniSONE 10 MG 5 tabs per day for 3 days, 4 tabs per day for 3 ays, 3 tabs perday for 3 days, 2 tabs per day for 3 days, 1 tab a day for 3 days, 1/2 tab a day for 4 days Orally Once a day; Duration: 19 days 5ActiveTamsulosin HCl 0.4 MGTAKE 2 CAPSULES BY MOUTH DAILY; Duration: 30ActiveViagra 100 MG1 tablet as needed Orally Once a day; Duration: 30 day(s) 5ActivelevoFLOXacin 750 MG1 tablet Orally Once a day; Duration: 10 day(s)5ActiveDiflucan 100 MG1 tablet Orally daily; Duration: 10 days 5Active Social History Tobacco Use: Social History Observation [...] the past year?Daily or almost daily (4 points)Votmmx75JgejmqandjpcsgQxrasdveCXDRF-L (Standard) Question Answer Notes Did you have a drink containing alcohol in the p ast year? 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61XA)ActiveconfirmedProblemNonunion of fracture (191688367) Nondisplaced fracture of lateral malleolus of right fibula, subsequent encounter for closed fracture with nonunion (S82.64XK)ActiveconfirmedProblemClosed fracture of upper end of fibula (59341112)Other fracture of upper and lower end of right fibula, initial encounter for closed fracture (S82.831A)Activeconfirmed ProblemClosed fracture of ankle (40371020)Other fracture of unspecified lower leg, initial encounter for closed fracture (S82.899A)ActiveconfirmedProblemCOPD - Chronic obstructive pulmonary disease (93728507)COPD (chronic obstructive pulmonary disease) (J44.9)ActiveconfirmedProblemAlcohol abuse (73357282)Alcohol abuse (F10.10)ActiveconfirmedProblemDiarrhea (45966392)Diarrhea (R19.7)Active confirmedProblemDysphagia (68575359)Dysphagia (R13.10)ActiveconfirmedProblem Pancytopenia (416797830)Pancytopenia (D61.818)ActiveconfirmedProblemAlcoholism (9144561)Alcoholism (F10.20)ActiveconfirmedProblemRecurrent falls (161331999) Frequent falls (R29.6)ActiveconfirmedProblemUnsteady gait (91274764)Unsteady gait (R26.81)ActiveconfirmedProblemErectile dysfunction (disorder) (435111555) Impotence (N52.9)ActiveconfirmedProblemOpioid abuse (1650669)Narcotic abuse (F11.10)ActiveconfirmedProblemLeukopenia (99441255)Leukopenia (D72.819)Active confirmedProblemBenign prostatic hyperplasia (766573541)Prostate hypertrophy (N40.0)ActiveconfirmedProblemAnkle fracture (96507444)Ankle fracture (S82.899A) ActiveconfirmedProblemLaryngeal cancer (427387094)Laryngeal cancer (C32.9)Active confirmedProblemLeukocytosis (816945100)Elevated WBCs (D72.829)Activeconfirmed ProblemFacial fracture (S02.92XA)ActiveconfirmedProblemMalnutrition, calorie (785936744)Caloric malnutrition (E46)ActiveconfirmedProblemClosed fracture of malar AND/OR maxillary bones (26079023)Maxillary fracture, unspecified side, initial encounter for closed fracture (S02.401A)ActiveconfirmedProblemClosed fracture of distal right fibula (disorder) (05078424983402790)Closed fracture of distal end of right fibula with routine healing, unspecified fracture morphology, subsequent encounter (S82.831D)Activeconfirmed Vital Signs Temperature 97.6 degrees Fahrenheit 07/17/2025 Blood pressure tmfftnafs93 mm Hg09/03/20253160Gefret64 in09/03/2025lood pressure xjtkdvet104 mm Hg09/03/20251788Cbspwp580 lbs1MI26.29 kg/m209/03/2025 Encounters Encounter Location Date Provider Diagnosis [facility] [address] [place] [address] 08/20/2025 Maldonado Hoy [facility] [facility] [place] [address] 11/12/2024Doug [facility] [place] [address]/10/2025Doug [facility] [place] [address]/Doug [facility] [place] [address]/Doug [facility] [place] [address]/04/2025Doug HoyMold exposure Z77.120[facility] [place] [address]/04/2025Doug [facility] [place] [address]/Doug HoySecondary malignant neoplasm of other specified sites C79.89 and [facility] viral [facility] [place] [address]/11/2024Doug HoySecondary malignant neoplasm of other specified sites C79.89 ; Narcotic abuse F11.10 and Pancytopenia D61.818[address] [place] [address]/10/2025Doug HoyImpotence N52.9 ; Pancytopenia D61.818 ; Unsteady gait R26.81 ; Leukopenia D72.819 and Prostate hypertrophy N40.0 [address] [place] [address] 07/17/2025Doug HoyCOPD (chronic obstructive pulmonary disease) J44.9BDanielle V[place] [address] [place] [address]/15/2025 Maldonado HoyCOPD (chronic obstructive pulmonary disease) J44.9[address] [place] [address] [facility] [place] [address]/28/2025Doug HoyAcute non- recurrent sinusitis, unspecified location J01.90 ; Nasal congestion R09.81 ; Headache 784.0 and Laryngeal cancer C32.9 Assessments Encounter Date Diagnosis (ICD Code) Assessment Notes Treatment Notes Treatment Clinical Notes Section Notes 04/29/2025 Secondary malignant neoplasm of other specified sites (ICD-10 - C79.89) seeing Dr Pulliam - ENT ANd Dr Encinas for oncology and panchito for radiation 04/29/2025hronic viral hepatitis C (ICD-10 - B18.2)06/18/2025Impotence (ICD-10 - N52.9)06/18/2025Pancytopenia (ICD-10 - D61.818)06/18/2025Unsteady gait (ICD-10 - R26.81)06/18/2025Leukopenia (ICD-10 - D72.819)06/18/2025Prostate hypertrophy (ICD-10 - N40.0)07/17/2025OPD (chronic obstructive pulmonary disease) (ICD-10 - J44.9)5COPD (chronic obstructive pulmonary disease) (ICD-10 - J44.9)If not better -needs ct scan figjuqo17/28/2025Acute non-recurrent sinusitis, unspecified location (ICD-10 - J01.90)Rest and drink more liquids, especially water. You may use a humidifier or vaporizer to help keep the drainage moist. Pdbk-vup-xfdtzjn Nasal Saline may help the stuffy and runny nose. Use Ibuprofen and or Tylenol as needed for fever, chills, body aches or pain. Children 5 years old should not be given looz-snn-yibjzzq cough and cold medications such as guaifenesin and dextromethorphan. If you're over age 5, you may try ewpg-gli-pkormtd cold medications such as guaifenesin and dextromethorphan, [...] improve within 3-5 days09/03/2025Nasal congestion (ICD-10 - R09.81)03/07/2025Secondary malignant neoplasm of other specified sites (ICD-10 - C79.89)Sqyuamous cell lmebkh7508/12/2025Mold exposure (ICD-10 - Z77.120)03/07/2025Narcotic abuse (ICD-10 - F11.10)clean now09/03/2025Headache (ICD9-CM - 784.0)09/03/2025Laryngeal cancer (ICD-10 - C32.9)03/07/2025Pancytopenia (ICD-10 - D61.818)likely due to chemo and etoh Plan Of Treatment Pending Test Test Name Order Date CMP (COMPLETE METABOLIC PANEL) 3 HEMOGLOBIN A1C (GLYCO) 08/16/2023 HEMOGLOBIN A1C (GLYCO) 03/07/2025 HEMOGLOBIN A1C (GLYCO) 06/18/2025 LIPID PANEL (CHOL/TRIG/HDL/LDL) 08/16/20 23 LIPID PANEL (CHOL/TRIG/HDL/LDL) 03/07/20 25 LIPID PANEL (CHOL/TRIG/HDL/LDL) 06/18/20 25 CBC WITH DIFF 08/16/2023 PSA, PROSTATE-SPECIFIC ANTIGEN 3 STOOL OCCULT BLOOD 08/16/2023 STOOL OCCULT BLOOD 06/18/2025 CULTURE SPUTUM 08/12/2025 MRI BRAIN WO CON 09/03/2025 THYROID PANEL (T4/TSH/FREE T3) 3 THYROID PANEL (T4/TSH/FREE T3) 5 THYROID PANEL (T4/TSH/FREE T3) 5 PSA, SCREENING 03/07/2025 PSA, SCREENING 06/18/2025 XR CHEST (2 VW) 08/12/2025 CMP (COMP MET MACKAY) w/eGFR CKD-EPI 2024 CMP (COMP MET MACKAY) w/eGFR CKD-EPI 2024 CBC WITH DIFF 03/07/2025 CBC WITH DIFF 06/18/2025 Insurance Providers Payer Name Payer Address Payer Phone Subscriber Number Group Number Insured Name Patient Relationship to Insured Coverage Start Date Coverage End Date [facility] ADV PLAN [address] [place] [id number] [id number] Adelfo Nolan Self - patient is the insured 3 MEDICAID [place] [address] [place], [place] [id number] [phone], AnthonySelf - patient is the [id number] 2022 Medical (General) History Medical History History ICD Code Closed fracture of distal en d of fibula, unspecified fracture morphology, unspecified laterality, initial encounter S82.839A fracture right maxillary sinus Alcohol abuseFrequent fallsLeukopeniamalnutritionOther fracture of upper and lower end of right fibula, subsequent encounter for closed fracture with routine mbxtnvaD29.831DMaxillary fracture, right side, subsequent encounter for fracture with routine zvkkuiyT38.40CDHistory of tongue vtdvwlK62.810DysphagiaSurgical History Surgery Date(Month/Year) Feeding tube placement at one time Hospitalization History Reason Date(Month/Year) Broken Right Ankle 07/2023 Falls 07/06/23
[2025-09-04 07:21] LABS: Hematocrit 39.7 % (42.0-54.0); Hemoglobin 13.7 g/dL (14.0-18.0); Immature Granulocytes Abs Auto 0.03 10^3/uL (0.00-0.03); Immature Granulocytes Pct Auto 0.4 % (0.0-0.5); Lymphocytes Absolute Auto 0.4 10^3/uL (1.2-3.8); Mean Corpuscular HGB Conc 34.5 g/dL (29.9-35.2); Mean Corpuscular Hemoglobin 32.4 pg (25.9-34.0); Mean Corpuscular Volume 93.9 fL (80.0-94.0); Platelet Count 217 10^3/uL (150-450); Red Blood Count 4.23 10^6/uL (4.70-6.10); White Blood Count 7.0 10^3/uL (4.0-11.0)
[2025-09-04 08:16] LABS: Alanine Aminotransferase 24 U/L (16-63); Albumin Globulin Ratio 1.1; Albumin Level 4.1 g/dL (3.4-5.0); Alkaline Phosphatase 67 U/L (46-116); Anion Gap 14.0; Aspartate Amino Transferase 19 U/L (15-37); Blood Urea Nitrogen 10.0 mg/dL (7.0-18.0); Calcium 10.1 mg/dL (8.5-10.1); Carbon Dioxide 26.1 mmol/L (21.0-32.0); Chloride 96 mmol/L (98-107); Cholesterol 173 mg/dL (<=200); Estimated GFR (African America >60 (>=60 mL/min/1.73m^2); Estimated GFR (Non-African Ame >60 (>=60 mL/min/1.73m^2); Free T3 1.94 pg/mL (2.18-3.98); Globulin 3.8 g/dL; Glucose 118 mg/dL (74-106); HDL Cholesterol 69 mg/dL (40-60); Potassium 4.1 mmol/L (3.5-5.1); Sodium 132 mmol/L (136-145); Thyroid Stimulating Hormone 1.053 uIU/mL (0.358-3.740); Total Protein 7.9 g/dL (6.4-8.2); Triglycerides 33 mg/dL (<=150); VLDL CHOLESTEROL 6.6 mg/dL
== END 2025-09-04 06:53 | disposition home or self-care (01) ==
LOC: LAB 06:55
PROVIDERS: PCP Family Medicine; Visit Provider Family Medicine
DX: N52.9 Male erectile dysfunction, unspecified (principal); D72.819 Decreased white blood cell count, unspecified; N40.0 Benign prostatic hyperplasia without lower urinary tract symptoms; D61.818 Other pancytopenia; R26.81 Unsteadiness on feet; E78.5 Hyperlipidemia, unspecified; R73.09 Other abnormal glucose; Z12.12 Encounter for screening for malignant neoplasm of rectum; E03.9 Hypothyroidism, unspecified; I10 Essential (primary) hypertension; Z12.5 Encounter for screening for malignant neoplasm of prostate; D50.9 Iron deficiency anemia, unspecified
CPT/HCPCS: 36415; 80053; 80061; 83036; 84436; 84443; 84481; 85025; G0103

== ENCOUNTER 2025-09-05 06:38 | Outpatient (OUT) | payer MEDICARE, MEDICAID, SELFPAY ==
--- OUTSIDE RECORDS SUMMARY | 2025-08-28 11:20 | XMS_ITS | Encounter Summary ---
Author Organization [facility] Address [address] [place] [address] Care Team Providers Care Pickling Grader Name Role Phone Bird Crouch MD Primary Care Provider [phone] Reason for Visit * ReasonCommentsThroat ProblemThroat and ear clogged Encounter Details DateTypeDepartmentCare Team (Latest Contact Info)Umaoeuurlaz44/22/2025 11:20 AM EDTOffice Visit [facility] [place] [facility] 112 [facility] 130 [place] [address] Kelly Pulliam MD 112 [facility] [address] [place] [address] Non-seasonal allergic rhinitis due to other allergic trigger (Primary Dx); Chronic sinusitis, unspecified location; Tongue cancer (HCC); Bilateral impacted cerumen; Chronic pansinusitis; Chronic maxillary sinusitis Social History Tobacco UseTypesPacks/DayYears UsedDateSmoking Tobacco: Every DayCigarettes0.5 53.8Started: 1972Smokeless Tobacco: Never Comments:Smokes 6-10 cigaret yoko/day Alcohol UseStandard Drinks/WeekCommentsYes8 (1 standard drink = 0.6 oz pure alcohol)Caffeine >4 cups/daySex and Gender InformationValueDate RecordedSex Assigned at BirthNot on fileLegal SkaObpp3601/19/2023 8:14 PM EDTGender Identity Not on fileSexual OrientationNot on filedocumented as of this encounter Last Filed Vital Signs Vital SignReadingTime TakenCommentsBlood Pressure--Pulse--Temperature-- Respiratory Rate--Oxygen Saturation--Inhaled Oxygen Concentration--Rsbscn52.9 kg (143 lb)08/28/2025 11:16 AM FNNLupswa368.1 cm (5' 5 )08/28/2025 11:16 AM EDTBody Mass Index23.810 11:16 AM EDTdocumented in this encounter Progress Notes * Kelly Pulliam MD - 08/28/2025 11:20 AM EDT Images from the original note were not included. Subjective Patient ID: Carsno Morse is a 69 y.o. male who presents for Throat Problem (Throat and ear clogged ) Pt reports he recently moved to [place] and believes there is mold in his [...] fracture (CMS-HCC) 08/28/2025 Odynophagia 08/28/2025 Opioid abuse ([facility]-HCC) 08/28/2025 Leukocytosis 08/28/2025 Poisoning by unspecified narcotics, accidental (unintentional), initial encounter ([facility]) 08/28/2025 Recurrent falls 08/28/2025 Solitary pulmonary [...] [2] Past Surgical History: Procedure Laterality Date [place] LARYNGOSCOPY,DIRECT,DX,OP MICROSCOP 12/27/2017 [3] No Known Allergies [...] Plan of Treatment DateTypeDepartmentCare Team (Latest Contact Info)Pszfmxulqcf76/01/2025 11:20 AM ESTOffice Visit [facility] [place] [facility] [address] [facility] [address] [place] [phone] Kelly Pulliam MD [address] [place] [address] 08/27/2026 11:20 AM EDTOffice Visit [facility] [place] [facility] [address] [facility] [address] [place] [phone] Kelly Pulliam MD [address] [place] [address] NameTypePriorityAssociated DiagnosesOrder ScheduleXR paranasal sinuses 3+ views [...] DateEnd Date Bird Crouch MD [address] [place] [phone] PCP - GeneralFamily Flwhqccy00/16/25documented as of this encounter
--- OUTSIDE RECORDS SUMMARY | 2025-09-03 04:15 | XMS_ITS ---
Author Organization [facility] in [place] Address [address] [place] [address] Care Team Providers Care Billing Auditor Name Role Phone Maldonado Crouch Primary Care Provider [phone] Allergies No Known Allergies REASON FOR VISIT [...] alcohol in the p ast year? No Btpcck4OdipnfzfikpilxXievjett Problems Problem Type SNOMED Code ICD Code Onset Dates Problem Status W/U Status Risk Notes Problem Laryngeal cancer (091878293) Laryngeal ca ncer (C32.9) Activeconfirmed Vital Signs Weight 158 lbs 09/03/2025 Height 65 in 09/03/2025 Blood pressure systolic 138 mm Hg 09/03/20 25 Blood pressure diastolic 82 mm Hg 025 BMI 26.29 kg/m2 09/03/2025 Encounters Encounter Location Date Provider Diagnosis [facility] [address] [place] [address] 09/03/2025 Maldonado Crouch Acute non-recurrent sinusitis, unspecified [...] vaporizer to help keep the drainage moist. Bjvl-wyr-whrltsl Nasal Saline may help the stuffy and runny nose. Use Ibuprofen and or Tylenol as needed for fever, chills, body aches or pain. Children 5 years old should not be given bwvu-skb-rgaddmu cough and cold medications such as guaifenesin and dextromethorphan. If you're over age 5, you may try inby-yzc-kxosvui cold medications such as guaifenesin and dextromethorphan, [...] vaporizer to help keep the drainage moist. Cdra-tpj-ohwouls Nasal Saline may help the stuffy and runny nose. Use Ibuprofen and or Tylenol as needed for fever, chills, body aches or pain. Children 5 years old should not be given dzxi-jjy-lgclcig cough and cold medications such as guaifenesin and dextromethorphan. If you're over age 5, you may try ilvr-cyf-wjrmlxx cold medications such as guaifenesin and dextromethorphan, [...] * Carson NOLANDOB:[birth year] (69 yo M)Acc No.[id number]:09/03/2025 Progress Note Patient: Michelle BENNETTibeth Chilel :?Bird Crouch ([facility]), MDDOB:1955???Age: 69 Y???Sex:MaleDate:09/03/2025Phone:[phone]:[address] [facility] [id number] In:08:09 AM ESTCheck Out:08:48 AM EST Subjective: [...] unspecified fracture morphology, subsequent encounter Modified On:08/16/2023/U Status:muljrrdkyI69.899AOther fracture of unspecified lower leg, initial encounter for closed fracture Modified On:07/05/2023/U Status:xiaddbdsfK63.831AOther fracture of upper and lower end of right fibula, initial encounter for closed fracture Modified On:08/24/2023/U Status:prdkqbgyuV50.401AMaxillary fracture, unspecified side, initial encounter for closed fracture Modified On:07/05/2023/U Status:atlgafpiqF18.1Solitary pulmonary nodule Modified On:07/05/2023 Status:kuimchvmmE93.819Decreased white blood cell count, unspecified Modified On:07/05/2023 Status:qeewdayroH91.10Dysphagia, unspecified Modified On:07/05/2023 Status:djjgbovyqY08.61XADisplaced fracture of lateral malleolus of right fibula, initial encounter for closed fracture Modified On:07/26/2023 Status:bfvrubvesC42.671Charcot's joint, right ankle and foot Modified On:10/19/2023 Status:dmpmvpwbvI55.1Alcoholic polyneuropathy Modified On:10/19/2023 Status:trxduwkhoW55.672Charcot's joint, left ankle and foot Modified On:07/26/2023 Status:elnyzpemqX25.92XAFacial fracture Modified On:08/02/2023 Status:onmmlqhdhJ43.899AAnkle fracture Modified On:08/02/2023 Status:ohtegzipwU16.7Diarrhea Modified On:08/02/2023 Status:gaehnyztbT10.10Alcohol abuse Modified On:08/03/2023 Status:rbygdjeriQ00.81Unsteady gait Modified On:08/05/2023 Status:uatrdkheiL67.819Leukopenia Modified On:08/03/2023 Status:lpxqstwgyI04Iutculw malnutrition Modified On:08/05/2023 Status:zajomthmcT72.829Elevated WBCs Modified On:08/05/2023 Status:jllzrvaehH05.20Alcoholism Modified On:08/05/2023 Status:loqtpllxoG36.6Frequent falls Modified On:08/05/2023 Status:dkonovzelJ85.10Dysphagia Modified On:08/05/2023 Status:bjkqzpngmH53.0Prostate hypertrophy Modified On:08/16/2023 Status:fmdrjojvyH85.64XKNondisplaced fracture of lateral malleolus of right fibula, subsequent encounter for closed fracture with nonunion Modified On:10/19/2023 Status:twmcgfbctD37.89Secondary malignant neoplasm of other specified sites Modified On:04/04/2024 Status:hluxginawB68.10Narcotic abuse Modified On:03/07/2025 Status:kcqqdbrqjG77.818Pancytopenia Modified On:03/07/2025 Status:fnbmkywhpA21.2Chronic viral hepatitis C Modified On:04/29/2025 Status:mdalcmbotN12.9Impotence Modified On:06/18/2025 Status:pfyepdgjjA48.9COPD (chronic obstructive pulmonary disease) Modified On:07/17/2025 Status:fbenqnzikP71.9Laryngeal cancer Modified On:09/03/2025 Status:confirmed * Medical History: [...] vaporizer to help keep the drainage moist. Ekbz-nem-kkdbaar Nasal Saline may help the stuffy and runny nose. Use Ibuprofen and or Tylenol as needed for fever, chills, body aches or pain. Children 5 years old should notbe given reqh-zop-okgtudy cough and cold medications such as guaifenesin and dextromethorphan. If you're over age 5, you may try zdap-ycj-vezdfvm cold medications such as guaifenesin and dextromethorphan, [...] (Check Out) true * Provider: May Crouch ([facility])MD Date: Generated for Printing/FaYoutopiag/eTransmitting on:?09/05/2025 06:47 AM EDT History and Physical Notes * [...]
--- OUTSIDE RECORDS SUMMARY | 2025-09-03 07:02 | XMS_ITS | CCD ---
Author Organization [facility] CliniSynh Care Team Providers Care Phy Therapist Name Role Phone Elba De La Cruz Primary Care Unavailable Jen Qureshi Admitting Unavailable Jen Qureshi Attending Unavailable Elba De La Cruz MD Primary Care Provider Elba De La Cruz Primary Care Physician Elba De La Cruz MD Primary Care Provider Elba De La Cruz MD Primary Care Provider Elba De La Cruz MD Primary Care Provider [phone] DOROTHY ., DR ARREOLA Primary Care [...] De La Cruz MD Primary Care Provider [phone] ABRAM FIORE Attending Unavailable Medications Current Medications [...] 100 mg oral tablet (2 sources)Azole AntifungalStart: 81-20-4804Rmyhsvpi 100 MG tablet 1 (one) time each day at the same time 08/21/2025 Activeiv contrast (will be provided with radiology test) (9 sources)Start: 01-21-2025 End: 26-30-9677rbsnbc 1 dose intravenously once, then inject 1 [...] 1 Each 01/21/2025 01/21/2025 ActiveStart: 01-21-2025 End: 02-95-5560lw contrast (will be provided with radiology test) [...] 1 Each 01/21/2025 01/22/2025 ActiveStart: 06-29-2024 End: 55-52-3281qcxxbq 1 dose intravenously once, then inject 1 [...] 1 Each 06/29/2024 06/29/2024 ExpiredStart: 06-29-2024 End: 87-67-3496ps contrast (will be provided with radiology test) [...] 1 Each 06/29/2024 06/30/2024 ExpiredStart: 03-30-2024 End: 11-51-2825mf contrast (will be provided with radiology test) [...] Each 0 03/30/2024 03/31/2024 ExpiredStart: 12-19-2023 End: 71-13-8378rx contrast (will be provided with radiology test) [...] Each 0 12/19/2023 12/20/2023 ActiveStart: 12-16-2022 End: 18-26-1365oe contrast (will be provided with radiology test) [...] Each 0 12/16/2022 12/17/2022 ActiveStart: 12-16-2022 End: 79-76-6084ulunuq 1 dose intravenously once, then inject 1 [...] 1 capsule by mouth in the morning. Vkdqtu99 hr nicotine 0.875 mg/hr transdermal system (10 [...] ActivepredniSONE 10 mg oral tablet (2 sources)Start: 74-36-7379mynirwVKUF (Deltasone) 10 MG tablet 5 TABS DAILY X3 DAYS, 4 TABS X3 DAYS, 3 TABS X3 DAYS, 2 TABS X3DAYS, 1 TAB X3 DAYS, 1/2 TAB X4 DAYS 07/23/2025 Activesofosbuvir 400 mg / velpatasvir 100 mg oral tablet (5 sources)Hepatitis C Virus NS5A Inhibitor, Hepatitis C Virus Nucleotide Analog NS5B Polymerase InhibitorStart: 12-30-2021 End: 58-70-6606addk 1 tablet by mouth once dailyEpclusa 400 mg-100 mg oral tablet tab(s), Oral, Daily, Refills(s) 0 Start Date: 04/06/22 Status: Ordered Comment on above:Take 1 tablet by mouth once daily.tamsulosin hydrochloride 0.4 mg oral capsule (14 sources)alpha-Adrenergic BlockerStart: 62-95-7096qqrl 1 capsule by mouth oncetamsulosin (FLOMAX) 0.4 [...] (6 sources)Alcohol abuse; Translations: [Alcohol abuse, uncomplicated]Onset: 782945-48-6794NacgrclRvwtjt of head and neck (20 sources)Malignant tumor of head and neck; Translations: [Malignant neoplasm of head, face and neck]Onset: 013254-00-8874RndlhtuQypyml; other and unspecified primary (10 sources)History of malignant neoplasm of head and/or neck; Translations: [Personal history of malignant neoplasm of other organs and systems]12-19-2023 EpisodicChronic obstructive pulmonary disease and bronchiectasis (2 sources)Chronic obstructive lung disease; Translations: [Chronic obstructive pulmonary disease, unspecified]Onset: 035258-60-5370ZhokegrOokctvvlae and other anemia (1 source)Deficiency and other anemia; Translations: [D64.9 - Anemia, unspecified]Onset: 08-36-5530Hmquwtqx of white blood cells (2 sources)Leukocytosis; Translations: [Elevated white blood cell count, unspecified]Onset: 968408-72-9434KxbytinNdtavqowv hypertension (10 sources)Hypertensive disorder; Translations: [Essential (primary) hypertension]Onset: 423311-18-9384TrsuqfcGmxjkvbt of lower limb (7 sources)Other fracture of upper and lower end of right fibula, initial encounter for closed fracture; Translations: [Closed fracture of ankle]Onset: 667227-66-0886UhqcpwjdXjduaetvo (8 sources)Chronic hepatitis C; Translations: [Chronic viral hepatitis C]Onset: 67-48-2187HpwzdipLsnngwlwjxx of prostate (12 sources)Benign prostatic hypertrophy without outflow obstruction; Translations: [Benign prostatic hyperplasia without lower urinary tract symptoms]Onset: 17-31-0127TgglmkbVrjbrsyxgowka and screening for infectious disease (1 source)Hepatitis C antibody test positive; Translations: [Other specified abnormal immunological findings in serum]EpisodicNutritional deficiencies (20 sources)Deficiency of macronutrients; Translations: [Unspecified severe protein-calorie malnutrition]Onset: 405664-23-7829OktrgvpXydpf connective tissue disease (2 sources)Recurrent falls ; Translations: [Repeated falls]Onset: 08-28-2025 56-29-6684YpbgsrvcLfmir ear and sense organ disorders (2 sources)Sensorineural hearing loss, bilateral; Translations: [Sensorineural hearing loss, bilateral]11-88-6373FdkyuwfWqipj ear and sense organ disorders (2 sources)Impacted cerumen of bilateral ears; Translations: [Impacted cerumen, bilateral]48-78-9154SmtmjjlhMsmin gastrointestinal disorders (2 sources)Diarrhea; Translations: [Diarrhea, unspecified]Onset: 08-28-2025 14-22-6546ByjxygmpZlaab gastrointestinal disorders (2 sources)Dysphagia; Translations: [Dysphagia, unspecified]Onset: 08-28-2025 91-35-6273LpqtivcjZgsvf gastrointestinal disorders (2 sources)Swallowing painful; Translations: [Dysphagia, unspecified]Onset: 230015-24-9546CakziwkiXwhnl hematologic conditions (20 sources)Myelosuppression; Translations: [Other specified diseases of blood and blood-forming organs]Onset: 485531-77-0329AyvrvkyXrlrh injuries and conditions due to external causes (2 sources)Radiation injury; Translations: [Radiation sickness, unspecified, sequela]EpisodicOther liver diseases (2 sources)Steatosis of liver; Translations: [Fatty (change of) liver, not elsewhere classified]98-09-9064ZcawnzjLngil lower respiratory disease (2 sources)Solitary nodule of lung; Translations: [Solitary pulmonary nodule] Onset: 835225-33-1431TmcmpzovIfkwc male genital disorders (2 sources)Male erectile dysfunction, unspecified; Translations: [Impotence of organic origin]Onset: 425532-28-1325FkbdauuPlody nervous system disorders (2 sources)Abnormal gait; Translations: [Unsteadiness on feet]Onset: 08-28-2025 27-40-0541OmallzklXvqrt non-traumatic joint disorders (2 sources)Arthropathy associated with a neurological disorder; 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, unspecified site]Onset: 794602-49-0997DaedoxwHaxko non- traumatic joint disorders (4 sources)Pain in right ankle and joints of right foot; Translations: [PAIN IN RIGHT ANKLE]Onset: 50-15-2658RvtgciqaVhike nutritional; endocrine; and metabolic disorders (10 sources)Porphyria cutanea tarda; 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] Onset: 968342-17-0673ZqvmdumIpezc upper respiratory disease (2 sources)Allergic rhinitis; Translations: [Other allergic rhinitis]08-28-2025 ChronicOther upper respiratory infections (2 sources)Chronic sinusitis; Translations: [Chronic sinusitis, unspecified] 24-90-2702ThnzkdsHorqiipln by other medications and drugs (20 sources)Mucositis following radiation therapy; Translations: [Oral mucositis (ulcerative) due to radiation]Onset: 233317-97-3812FidhazrrTzqoanzog malignancies (20 sources)Metastatic squamous cell carcinoma; Translations: [Secondary malignant neoplasm of other specified sites]Onset: 300809-40-9911Dlwfugo Skull and face fractures (12 sources)Closed fracture of right maxilla; Translations: [Maxillary fracture, right side, initial encounter for closed fracture]Onset: 802914-26-5180 EpisodicSubstance-related disorders (13 sources)Smoker; Translations: [Nicotine dependence, unspecified, uncomplicated]Onset: 947139-35-3670NywvacaBzkreag disorders (2 sources)Disorder of thyroid gland; Translations: [Disorder of thyroid, unspecified]Episodic Past or Other Problems Problem ClassificationProblemDateDocumented DateEpisodic/ChronicCancer of head and neck (11 sources)History of malignant neoplasm of tongue; Translations: [Personal history of malignant neoplasm of tongue]Onset: 06-21-2023 Resolved: 976985-12-1554QlyvioouOhhopr; other and unspecified primary (1 source)Personal history of malignant neoplasm of other organs and systems; Translations: [History of head and neck cancer]Onset: 67-61-6651Qabmlirh Genitourinary symptoms and ill-defined conditions (13 sources)Nocturia; Translations: [Nocturia]Onset: 04-06-2022 Resolved: 64-08-2081BnyyqxleJcwgreoewgmxz (3 sources)Localized enlarged lymph nodes; Translations: [Localized enlarged lymph nodes]Onset: 940996-23-3136ZobkdkzpUbxrc lower respiratory disease (20 sources)Multiple nodules of lung; Translations: [Other nonspecific abnormal finding of lung field]Onset: 748220-72-7765IqumaabuXddmk lower respiratory disease (1 source)Other nonspecific abnormal finding of lung field; Translations: [Lung nodules]Onset: 16-58-9422XdpwduwkTswvd screening for suspected conditions (not mental disorders or infectious disease) (3 sources)Liver function tests abnormal; Translations: [Other specified abnormal findings of blood chemistry]Onset: 126268-57-4322MkhrbkqvIueey upper respiratory disease (20 sources)Hoarse; Translations: [Dysphonia]Onset: 059949-20-5131Tlqohsss Results Test NameValueInterpretationReference RangeFacilityCNOVSPon 92-18-1845DEJCCW Visit (SP) Office (HEMASA) CARSON MORSE ([id number]) 1955 M Date Time Provider Department 01/21/25 [...] AM Signed NAME: Carson Morse CLINIC NO.: [id number] DATE OF SERVICE: January 21, 2025 (Mirian) [...] Bilater (more content not included)...NormalThe Metrohealth SystemCNPNon 56-68-2321GNSVVonsnhlyj (GASTNO) CARSON MORSE ([id number]) 1955 Date Time Provider Department 01/18/25 HALIMA NIXON During your visit today, we recorded the following information about you: Mary Villarreal RN 01/18/2025 10:53 AM Signed Pt notified of results and recommendations and verbalized understanding. Schedulers, please call pt to schedule US, Fibroscan and OV. Orders are already placed. Thank you, NOLAN Meeks Noma, MD P [facility] Nurse Pool Normal AFP Patient is overdue [...] 12/18/2020 Encounter Status:Closed by IVETTE LALA on 01/18/25NormalCSouthview Medical Center SerPl-mCncon 22-42-6081VZA [Mass/Vol]4.54 ng/mLNormal<9.00The Metrohealth SystemComment on above:Order Comment: Specimen Type: BLOOD SPECIMENOrdering Facility: [facility] Address:[address] [place], [place] [address]Result Comment: The Alpha-Fetoprotein test was performed using the Uma Unicel DxI immunoenzymatic assay. Results obtained with different assay methods or kits cannot be used interchangeably.Performed By: #### 1834-1 ####[facility] LABCLIA [id number] [address] Auto Differential panel (Bld)on 00-78-2910Ucqapeunc (Bld) [#/Vol]0.09 10*3/uLNINFOur Lady Of Mercy Hospital Basophils/100 WBC (Bld)1.9 %[facility] HospitalDifferential cell count method Nom (Bld)AutoCleveland ClinicEosinophils (Bld) [#/Vol]0.11 10*3/uLNINFOur Lady Of Mercy HospitalEosinophils/100 WBC (Bld)2.4 %[facility] HospitalErythrocyte distribution width (RBC) [Ratio]12.2 %11.5 - 15.0 %[facility] HospitalHematocrit (Bld) [Volume fraction]31.6 %Low39.0 - 51.0 %[facility] HospitalHemoglobin (Bld) [Mass/Vol]10.6 g/dLLow13.0 - 17.0 g/dLOur Lady Of Mercy HospitalImmature granulocytes (Bld) [#/Vol]NINF [facility] HospitalImmature granulocytes/100 WBC (Bld)0.4 %[facility] Interpretation and review of laboratory resultsAbnormalCAccess Hospital Dayton Lymphocytes (Bld) [#/Vol]0.96 10*3/uLLowOur Lady Of Mercy HospitalLymphocytes/100 WBC (Bld)20.7 %[facility] HospitalH (RBC) [Entitic mass]33.9 pg26.0 - 34.0 pg [facility] HospitalHC (RBC) [Mass/Vol]33.5 g/dL30.5 - 36.0 g/dLOur Lady Of Mercy Hospital MCV (RBC) [Entitic vol]101 xOPxmj81.0 - 100.0 fLCleveland ClinicMonocytes (Bld) [#/Vol]0.38 10*3/uLNINFOur Lady Of Mercy HospitalMonocytes/100 WBC (Bld)8.2 %[facility] HospitalNeutrophils (Bld) [#/Vol]3.08 10*3/Doctors HospitalNeutrophils/100 WBC (Bld)66.4 %[facility] HospitalNucleated RBC (Bld) [#/Vol]NINFCAccess Hospital Dayton Nucleated RBC/100 WBC (Bld) [Ratio]0 %/100 WBCOur Lady Of Mercy HospitalPlatelet mean volume (Bld) [Entitic vol]9.4 fL9.0 - 12.7 fLCAccess Hospital DaytonPlatelets (Bld) [#/Vol]209 10*3/uLOur Lady Of Mercy HospitalRBC (Bld) [#/Vol]3.13 10*6/uLLow4.20 - 6.00 m/Doctors HospitalWBC (Bld) [#/Vol]4.64 10*3/uLWayne HealthCare Main Campus ClinicBasophils (Bld) [#/Vol]0.09 10*3/uLNormal<0.11CFlower Hospital Comment on above:Order Comment: Specimen Type: BLOOD SPECIMENOrdering Facility: [facility] Address:[address] [place] [address] Performed By: #### 45231-9 ####[facility]ENTERIA [id number] [place], [place] [address]Nquvzerhj/100 WBC (Bld)1.9 % NormalThe Metrohealth SystemComment on above:Order Comment: Specimen Type: BLOOD SPECIMENOrdering Facility: [facility] Address:[address] [place], [place] [address]Performed By: #### 68508-2 ####[facility] LABIA [id number] [place] [address] Differential cell count method Nom (Bld)AutoNormalCFlower Hospital Comment on above:Order Comment: Specimen Type: BLOOD SPECIMENOrdering Facility: [facility] Address:[address] [place] [address] Performed By: #### 56634-3 ####[facility] LABIA [id number] [place], [place] [address]Yenzbsjovgf (Bld) [#/Vol]0.11 10*3/uLNormal<0.46[facility] on above:Order Comment: Specimen Type: BLOOD SPECIMENOrdering Facility: [facility] Address:[address] [place], [place] [address]Performed By: #### 74924-8 ####[facility] LABCLIA [id number] [place], [place] [address]Kxigiwunuss/100 WBC (Bld)2.4 %NormalFayette County Memorial Hospital on above:Order Comment: Specimen Type: BLOOD SPECIMENOrdering Facility: [facility] Address:[address] [place], [place] [address]Performed By: #### 63789-4 ####[facility] LABIA [id number] [place], [place] [address]Awhrdwckcyg distribution width (RBC) [Ratio]12.2 %Lnejir46.5-15.0[facility] on above: Order Comment: Specimen Type: BLOOD SPECIMENOrdering Facility: [facility] Address:[address] [place], [place] [address]Performed By: #### 99879- 8 ####[facility] LABCLIA [id number] [place], [place] [address]Blvdxzviwn (Bld) [Volume fraction]31.6 %Low39.0-51.0 [facility] on above:Order Comment: Specimen Type: BLOOD SPECIMENOrdering Facility: [facility] Address:[address] [place], [place] [address]Performed By: #### 25870-5 ####[facility] LABIA [id number] [place], [place] [address]Zvvxgpabcw (Bld) [Mass/Vol]10.6 g/dLLow13.0-17.0[facility] on above:Order Comment: Specimen Type: BLOOD SPECIMENOrdering Facility: [facility] Address:[address] [place], [place] [address]Performed By: #### 69269- 8 ####[facility] LABCLIA [id number] [place], [place] [address]Mesypsmw granulocytes (Bld) [#/Vol]10*3/uLNormal<0.10 [facility] on above:Order Comment: Specimen Type: BLOOD SPECIMENOrdering Facility: [facility] Address:[address] [place], [place] [address]Performed By: #### 60326-1 ####[facility] LABCLIA [id number] [place], [place] [address]Qqryoneb granulocytes/100 WBC (Bld)0.4 %NormalFayette County Memorial Hospital on above: Order Comment: Specimen Type: BLOOD SPECIMENOrdering Facility: [facility] Address:[address] [place], [place] [address]Performed By: #### 57128- 8 ####[facility] LABCLIA [id number] [place], [place] [address]Ahiwvrvepej (Bld) [#/Vol]0.96 10*3/uLLow1.00-4.00 [facility] on above:Order Comment: Specimen Type: BLOOD SPECIMENOrdering Facility: [facility] Address:[address] [place], [place] [address]Performed By: #### 16265-6 ####[facility] LABCLIA [id number] [place], [place] [address]Qzoqpbkbnth/100 WBC (Bld)20.7 %NormalFayette County Memorial Hospital on above:Order Comment: Specimen Type: BLOOD SPECIMENOrdering Facility: [facility] Address:[address] [place], [place] [address]Performed By: #### 29969-1 ####[facility] LABCLIA [id number] [place], [place] [address]CEI (RBC) [Entitic mass]33.9 esGudisa92.0-34.0[facility] on above:Order Comment: Specimen Type: BLOOD SPECIMENOrdering Facility: [facility] Address:[address] [place], [place] [address]Performed By: #### 58407-4 ####[facility] LABCLIA [id number] [place], [place] [address]KSDK (RBC) [Mass/Vol]33.5 g/cKGrbtbd47.5-36.0[facility] on above: Order Comment: Specimen Type: BLOOD SPECIMENOrdering Facility: [facility] Address:[address] [place], [place] [address]Performed By: #### 49724- 8 ####[facility] LABCLIA [id number] [place], [place] [address]NHC (RBC) [Entitic vol]101.0 dKOwxz84.0-100.0[facility] on above:Order Comment: Specimen Type: BLOOD SPECIMENOrdering Facility: [facility] Address:[address] [place], [place] [address]Performed By: #### 22153-1 ####[facility] LABCLIA [id number] [place], [place] [address]Nvrplsuua (Bld) [#/Vol]0.38 10*3/uLNormal<0.87[facility] on above:Order Comment: Specimen Type: BLOOD SPECIMENOrdering Facility: [facility] Address:[address] [place], [place] [address]Performed By: #### 42413- 8 ####[facility] LABCLIA [id number] [place], [place] [address]Dmmcvspwn/100 WBC (Bld)8.2 %NormalFayette County Memorial Hospital on above:Order Comment: Specimen Type: BLOOD SPECIMENOrdering Facility: [facility] Address:[address] [place], [place] [address]Performed By: #### 90243-1 ####[facility] LABCLIA [id number] [place], [place] [address]Cvvxgrxixjj (Bld) [#/Vol]3.08 10*3/uLNormal1.45-7.50[facility] on above:Order Comment: Specimen Type: BLOOD SPECIMENOrdering Facility: [facility] Address:[address] [place], [place] [address]Performed By: #### 57974-4 ####[facility] LABCLIA [id number] [place], [place] [address]Kqioghnweky/100 WBC (Bld)66.4 %NormalFayette County Memorial Hospital on above:Order Comment: Specimen Type: BLOOD SPECIMENOrdering Facility: [facility] Address:[address] [place], [place] [address]Performed By: #### 69519-0 ####[facility] LABCLIA [id number] [place], [place] [address]Dlktecmje RBC (Bld) [#/Vol] 10*3/uLNormal<0.01[facility] on above:Order Comment: Specimen Type: BLOOD SPECIMENOrdering Facility: [facility] Address:[address] [place], [place] [address]Performed By: #### 81305-8 ####[facility] LABIA [id number] [place], [place] [address]Ymhprrblg RBC/100 WBC (Bld) [Ratio]0.0 /100 WBCNormal [facility] on above:Order Comment: Specimen Type: BLOOD SPECIMENOrdering Facility: [facility] Address:[address] [place], [place] [address]Performed By: #### 66620-4 ####[facility] LABIA [id number] [place], [place] [address]Zguvjlxr mean volume (Bld) [Entitic vol]9.4 fLNormal9.0-12.7CAshtabula County Medical Center on above:Order Comment: Specimen Type: BLOOD SPECIMENOrdering Facility: [facility] Address:[address] [place], [place] [address] Performed By: #### 46808-4 ####[facility] LABCLIA [id number] [place], [place] [address]Sezxrcblr (Bld) [#/Vol]209 10*3/yRJjtykp483-813FotydiuqkFayette County Memorial Hospital on above:Order Comment: Specimen Type: BLOOD SPECIMENOrdering Facility: [facility] Address:[address] [place], [place] [address]Performed By: #### 30379-6 ####[facility] LABCLIA [id number] [place], [place] [address]PDT (Bld) [#/Vol]3.13 10*6/uLLow4.20-6.00[facility] on above:Order Comment: Specimen Type: BLOOD SPECIMENOrdering Facility: [facility] Address:[address] [place], [place] [address]Performed By: #### 82871-1 ####[facility] LABIA [id number] [place], [place] [address]AHE (Bld) [#/Vol]4.64 10*3/uL Normal3.70-11.00[facility] on above:Order Comment: Specimen Type: BLOOD SPECIMENOrdering Facility: [facility] Address:[address] [place], [place] [address]Performed By: #### 21352-0 ####[facility] LABIA [id number] [place], [place] [address]JU CHEST W IVCONon 89-88-1631GS CHEST W IVCON* * *Final Report* * * DATE OF EXAM: Jan 10 2025 3:05PM [facility] 0539 - CT CHEST W [...] Date/Time: Jan 11 2025 9:04A Dictated by: YEAL COBB MD This examination was interpreted and the report reviewed and electronically signed by: YAEL COBB MD on Jan 11 2025 9:15AM EST Thank you for allowing us to participate in the care of your patient. Should there be any questions regarding this interpretation, please call [phone]. If you are unable to reach us at the number above, please feel free to contact [facility] eRadiology at [phone]. [id number] Parma Medical Center NECK SOFT TISSUE W IVCONon 42-49-6812HS NECK SOFT TISSUE W IVCON* * *Final Report* * * DATE OF EXAM: Jan 10 2025 3:05PM [facility] 0013 - CT NECK SOFT [...] amalgam. Parotid and submandibular spaces are normal. Head Sulfide Operator spaces appear normal. Infrahyoid Neck: Hypopharynx, larynx, [...] any questions regarding this interpretation, please call [phone]. If you are unable to reach us at the number above, please feel free to contact [facility] eRadiology at [phone]. [id number] Parma Medical Center Neck W contrast Javier 99-90-2392IPEKUEXNDX: Redemonstration of the posttreatment related changes in [...] any questions regarding this interpretation, please call [phone]. If you are unable to reach us at the number above, please feel free to contact [facility] eRadiology at [phone].DIVISION OF RADIOLOGY* * *Final Report* * * DATE OF EXAM: Jan 10 2025 3:05PM [facility] 0013 - CT NECK SOFT [...] amalgam. Parotid and submandibular spaces are normal. Head Sulfide Operator spaces appear normal. Infrahyoid Neck: Hypopharynx, larynx, [...] accession. Other: Not applicable. DIVISION OF RADIOLOGYProvider, [facility] [place] - 01/10/2025 * * *Final Report* * * DATE OF EXAM: Jan 10 2025 3:05PM [facility] 0013 - CT NECK SOFT [...] amalgam. Parotid and submandibular spaces are normal. Head Sulfide Operator spaces appear normal. Infrahyoid Neck: Hypopharynx, larynx, [...] any questions regarding this interpretation, please call [phone]. If you are unable to reach us at the number above, please feel free to contact [facility] at [phone]. [facility] HospitalRadiology Study observation (narrative)[facility] HospitalCT Neck W contrast IVOrdered By: Ccf Provider on 96-13-0298Mrkgcjjti ClinicComprehensive metabolic 2000 panelOrdered By: Jess Baker on 51-07-8754Rbcqaov [Mass/Vol]4.4 g/dL3.9 - 4.9 g/dLCharlotte Hall ClinicALP [Catalytic activity/Vol]79 U/L38 - 113 U/L [facility] ClinicALT [Catalytic activity/Vol]8 U/LLow10 - 54 U/LCleveland Clinic Anion gap [Moles/Vol]11 mmol/L8 - 15 mmol/LCleveland ClinicAST [Catalytic activity/Vol]14 U/L14 - 40 U/LCleveland ClinicBilirubin [Mass/Vol]0.6 mg/dL0.2 - 1.3 mg/dLCharlotte Hall ClinicCalcium [Mass/Vol]9.6 mg/dL8.5 - 10.2 mg/dLCharlotte Hall ClinicChloride [Moles/Vol]102 mmol/L98 - 107 mmol/LCleveland ClinicCO2 [Moles/Vol]25 mmol/L22 - 30 mmol/LCleveland ClinicCreatinine [Mass/Vol]0.68 mg/dLLow0.73 - 1.22 mg/dLOur Lady Of Mercy HospitalGFR/1.73 sq M.predicted among non- blacks MDRD (S/P/Bld) [Vol rate/Area]101 mL/min/{1.73_m2}- [facility] Comment on above:Estimated Glomerular Filtration [...] not accurately reflect actual GFR.Glucose [Mass/Vol] 100 mg/tMDcxs98 - 99 mg/dLOur Lady Of Mercy HospitalComment on above:The [place] Diabetes Association (ADA) provides guidance for cutoff [...] Standards of Medical Care in Diabetes 2016, [place] [employer] Association. Diabetes Care. 2016.39(Suppl 1). Interpretation and review of laboratory resultsAbnormalClevelatrium health mountain island ClinicPotassium [Moles/Vol]3.7 mmol/L3.7 - 5.1 mmol/LCtuscarawas hospital ClinicProtein [Mass/Vol]6.8 g/dL 6.3 - 8.0 g/dLKeenan Private Hospitalodium [Moles/Vol]138 mmol/L136 - 144 mmol/L [facility] HospitalUrea nitrogen [Mass/Vol]9 mg/dL9 - 24 mg/dLPromedica Memorial HospitalComprehensive metabolic 2000 panelon 28-22-9239Lzqgzir [Mass/Vol]4.4 g/dLNormal3.9-4.9CFlower HospitalComment on above:Order Comment: Specimen Type: BLOOD SPECIMENOrdering Facility: [facility] Address:[address], [place] [address]Performed By: #### 93245- 8 ####[facility] HOSPITALZULEIMA [facility] LABCLIA [id number] MALLORIE MILESBANNER OCOTILLO MEDICAL CENTERJOAQUÍNDILLON, [place] [address]OMB [Catalytic activity/Vol]79 U/JUovkkt91-510OpinnbtsiFayette County Memorial Hospital on above:Order Comment: Specimen Type: BLOOD SPECIMENOrdering Facility: [facility] Address:[address] [place], [place] [address]Performed By: #### 95187-8 ####[facility] LABCLIA [id number] [place]ANZAELINBARB[place], [place] [address]SNQ [Catalytic activity/Vol]8 U/TBah57-22DuoxdpzacFayette County Memorial Hospital on above:Order Comment: Specimen Type: BLOOD SPECIMENOrdering Facility: [facility] Address:[address] [place], [place] [address]Performed By: #### 14800- 8 ####[facility] LABCLIA [id number] [facility] [place], [place] [address]Unqyc gap [Moles/Vol]11 mmol/LNormal8-15[facility] on above:Order Comment: Specimen Type: BLOOD SPECIMENOrdering Facility: [facility] Address:[address] [place], [place] [address]Performed By: #### 97026-8 ####[facility] LABCLIA [id number] [place], [place] [address]LKH [Catalytic activity/Vol]14 U/MLdyygk17-60XltoploxeFayette County Memorial Hospital on above:Order Comment: Specimen Type: BLOOD SPECIMENOrdering Facility: [facility] Address:[address] [place], [place] [address]Performed By: #### 15493-7 ####[facility] LABCLIA [id number] [place] [address] Bilirubin [Mass/Vol]0.6 mg/dLNormal0.2-1.3CAshtabula County Medical Center on above:Order Comment: Specimen Type: BLOOD SPECIMENOrdering Facility: [facility] Address:[address] [place], [place] [address]Performed By: #### 18968-1 ####[facility] LABCLIA [id number] [facility] DISTRICTELINBANNER OCOTILLO MEDICAL CENTEREVARISTOKUNKLET[place], [place] [address]Gjhlsjb [Mass/Vol]9.6 mg/dLNormal8.5-10.2CAshtabula County Medical Center on above:Order Comment: Specimen Type: BLOOD SPECIMENOrdering Facility: [facility] Address:[address] [place], [place] [address]Performed By: #### 17748-2 ####[facility] LABCLIA [id number] [facility] HOSPITAL DISTRICTELINBARBOURVILLE, [place] [address]Ubdyfdac [Moles/Vol]102 mmol/RBhiwvn62-502SkigbztwbFayette County Memorial Hospital on above: Order Comment: Specimen Type: BLOOD SPECIMENOrdering Facility: [facility] Address:[address] [place], [place] [address]Performed By: #### 46507- 8 ####[facility] LABCLIA [id number] [place], [place] [address]OU1 [Moles/Vol]25 mmol/VXghwhj13-41KeomxiwilFayette County Memorial Hospital on above:Order Comment: Specimen Type: BLOOD SPECIMENOrdering Facility: [facility] Address:[address] [place], [place] [address]Performed By: #### 81104-3 ####[facility] LABCLIA [id number] [facility] DISTRICTELINBANNER OCOTILLO MEDICAL CENTEREVARISTOKUNKLET[place], [place] [address]Pjirxuwwyy [Mass/Vol]0.68 mg/dL Low0.73-1.22[facility] on above:Order Comment: Specimen Type: BLOOD SPECIMENOrdering Facility: [facility] Address:[address] [place], [place] [address]Performed By: #### 28353-8 ####[facility] LABCLIA [id number] [place] [address] Creatinine and Glomerular filtration rate.predicted panel (S/P/Bld)101 mL/min/1.73m???Normal>=60[facility] on above:Order Comment: Specimen Type: BLOOD SPECIMENOrdering Facility: [facility] Address:[address] [place], [place] [address]Result Comment: Estimated Glomerular Filtration Rate (eGFR) is [...] not accurately reflect actual GFR.Performed By: #### 89960-6 ####[facility] LABCLIA [id number] [place], [place] [address]Vudflde [Mass/Vol]100 mg/cZCasm15-00WjedmeerhFayette County Memorial Hospital on above:Order Comment: Specimen Type: BLOOD SPECIMENOrdering Facility: [facility] Address:[address] [place] [address]Jvjruy Comment: The [place] Diabetes Association (ADA) provides guidance for cutoff [...] Standards of Medical Care in Diabetes 2016, [place] Diabetes Association. Diabetes Care. 2016.39(Suppl 1).Performed By: #### 31622-3 ####[facility] LABCLIA [id number] [place], [place] [address]Swaspmyny [Moles/Vol]3.7 mmol/LNormal3.7-5.1CAshtabula County Medical Center on above:Order Comment: Specimen Type: BLOOD SPECIMENOrdering Facility: [facility] Address:[address] [place], [place] [address]Performed By: #### 47162-0 ####[facility] LABIA [id number] [place], [place] [address]Dzvjedq [Mass/Vol]6.8 g/dLNormal6.3-8.0[facility] on above:Order Comment: Specimen Type: BLOOD SPECIMENOrdering Facility: [facility] Address:[address] [place], [place] [address]Performed By: #### 64197- 8 ####[facility] LABIA [id number] [place], [place] [address]Yvdvwv [Moles/Vol]138 mmol/YPgvoce437-667DnumqjjltFayette County Memorial Hospital on above:Order Comment: Specimen Type: BLOOD SPECIMENOrdering Facility: [facility] Address:[address] [place], [place] [address]Performed By: #### 99441-5 ####[facility] LABIA [id number] [place], [place] [address]Qysh nitrogen [Mass/Vol]9 mg/dL Normal9-24[facility] on above:Order Comment: Specimen Type: BLOOD SPECIMENOrdering Facility: [facility] Address:[address] [place], [place] [address]Performed By: #### 04519-9 ####[facility] LABIA [id number] [place] [address] Auditory function testson 26-54-3916Mfeah Ear: 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 Left Ear: Mild to severe sensorineural hearing loss above 500 Hz [facility] Mountain IslandCNOVSPon 05-21-4371MAPZNGWdrte (SP) Office ([place]AS[place]) CARSON MORSE ([id number]) 1955 M Date Time Provider Department 06/29/24 11:15 AM WYATT GARZA During your visit today, we recorded the following information about you: Temperature Pulse Respiration Blood pressure 97.7 degrees 60/minute 16/minute 153/90 Height 1.651 m Wyatt Garza MD 06/30/2024 9:51 PM Signed NAME: Carson Morse CLINIC NO.: [id number] DATE OF SERVICE: June 29, 2024 (Mirian) [...] then pursue annual monitor (more content not included)...NormalSheltering Arms Hospital W Auto Differential panel (Bld) on 76-93-3616Chybnpfsa (Bld) [#/Vol]0.04 10*3/uLNINFOur Lady Of Mercy Hospital Basophils/100 WBC (Bld)0.9 %[facility] HospitalDifferential cell count method Nom (Bld)AutoCleveland ClinicEosinophils (Bld) [#/Vol]0.04 10*3/uLNINFOur Lady Of Mercy HospitalEosinophils/100 WBC (Bld)0.9 %[facility] HospitalErythrocyte distribution width (RBC) [Ratio]13.2 %11.5 - 15.0 %[facility] HospitalHematocrit (Bld) [Volume fraction]35.9 %Low39.0 - 51.0 %[facility] HospitalHemoglobin (Bld) [Mass/Vol]12.8 g/dLLow13.0 - 17.0 g/dLOur Lady Of Mercy HospitalImmature granulocytes (Bld) [#/Vol]NINF [facility] HospitalImmature granulocytes/100 WBC (Bld)0.2 %[facility] Interpretation and review of laboratory resultsAbnormalCAccess Hospital Dayton Lymphocytes (Bld) [#/Vol]0.77 10*3/uLLowOur Lady Of Mercy HospitalLymphocytes/100 WBC (Bld)18.2 %[facility] HospitalH (RBC) [Entitic mass]32.5 pg26.0 - 34.0 pg [facility] HospitalHC (RBC) [Mass/Vol]35.7 g/dL30.5 - 36.0 g/dLOur Lady Of Mercy Hospital MCV (RBC) [Entitic vol]91.1 fL80.0 - 100.0 fLCAccess Hospital DaytonMonocytes (Bld) [#/Vol]0.48 10*3/uLNINFOur Lady Of Mercy HospitalMonocytes/100 WBC (Bld)11.4 %[facility] HospitalNeutrophils (Bld) [#/Vol]2.88 10*3/uLOur Lady Of Mercy HospitalNeutrophils/100 WBC (Bld)68.4 %[facility] HospitalNucleated RBC (Bld) [#/Vol]NINFCAccess Hospital Dayton Nucleated RBC/100 WBC (Bld) [Ratio]0.0 %/100 WBCOur Lady Of Mercy HospitalPlatelet mean volume (Bld) [Entitic vol]10.2 fL9.0 - 12.7 fLCAccess Hospital DaytonPlatelets (Bld) [#/Vol]182 10*3/uLCharlotte Hall ClinicRBC (Bld) [#/Vol]3.94 10*6/uLLow4.20 - 6.00 m/Doctors HospitalWBC (Bld) [#/Vol]4.22 10*3/[facility] ClinicBasophils (Bld) [#/Vol]0.04 10*3/Normal<0.11CFlower Hospital Comment on above:Order Comment: Specimen Type: BLOOD SPECIMENOrdering Facility: [facility] Address:[address] [place] [address] Performed By: #### 86418-6 ####[facility] LABCLIA [id number] [place], [place] [address]Fakcolgqf/100 WBC (Bld)0.9 % NormalThe Metrohealth SystemComment on above:Order Comment: Specimen Type: BLOOD SPECIMENOrdering Facility: [facility] Address:[address] [place], [place] [address]Performed By: #### 79285-7 ####[facility] LABCLIA [id number] [place] [address] Differential cell count method Nom (Bld)AutoNormalCFlower Hospital Comment on above:Order Comment: Specimen Type: BLOOD SPECIMENOrdering Facility: [facility] Address:[address] [place] [address] Performed By: #### 75071-0 ####[facility] LABIA [id number] [place], [place] [address]Roxqajjeyic (Bld) [#/Vol]0.04 10*3/uLNormal<0.46[facility] on above:Order Comment: Specimen Type: BLOOD SPECIMENOrdering Facility: [facility] Address:[address] [place], [place] [address]Performed By: #### 94311-7 ####[facility] LABIA [id number] [place], [place] [address]Wklwjaopdtq/100 WBC (Bld)0.9 %NormalFayette County Memorial Hospital on above:Order Comment: Specimen Type: BLOOD SPECIMENOrdering Facility: [facility] Address:[address] [place], [place] [address]Performed By: #### 63002-5 ####[facility] LABIA [id number] [place], [place] [address]Mfcfesddsmq distribution width (RBC) [Ratio]13.2 %Yrolfs39.5-15.0[facility] on above: Order Comment: Specimen Type: BLOOD SPECIMENOrdering Facility: [facility] Address:[address] [place], [place] [address]Performed By: #### 90719- 8 ####[facility] LABIA [id number] [place], [place] [address]Pclvnckbbq (Bld) [Volume fraction]35.9 %Low39.0-51.0 [facility] on above:Order Comment: Specimen Type: BLOOD SPECIMENOrdering Facility: [facility] Address:[address] [place], [place] [address]Performed By: #### 69326-8 ####[facility] LABIA [id number] [place], [place] [address]Yzbqgftuwy (Bld) [Mass/Vol]12.8 g/dLLow13.0-17.0[facility] on above:Order Comment: Specimen Type: BLOOD SPECIMENOrdering Facility: [facility] Address:[address] [place], [place] [address]Performed By: #### 91977- 8 ####[facility] LABCLIA [id number] [place], [place] [address]Pvrcxrhn granulocytes (Bld) [#/Vol]10*3/uLNormal<0.10 [facility] on above:Order Comment: Specimen Type: BLOOD SPECIMENOrdering Facility: [facility] Address:[address] [place], [place] [address]Performed By: #### 35684-1 ####[facility] LABCLIA [id number] [place], [place] [address]Dhxjagzj granulocytes/100 WBC (Bld)0.2 %[facility] on above: Order Comment: Specimen Type: BLOOD SPECIMENOrdering Facility: [facility] Address:[address] [place], [place] [address]Performed By: #### 14292- 8 ####[facility] LABCLIA [id number] [place], [place] [address]Bxdizjjotab (Bld) [#/Vol]0.77 10*3/uLLow1.00-4.00 [facility] on above:Order Comment: Specimen Type: BLOOD SPECIMENOrdering Facility: [facility] Address:[address] [place], [place] [address]Performed By: #### 10894-7 ####[facility] LABCLIA [id number] [place], [place] [address]Uzhgxyixfrj/100 WBC (Bld)18.2 %NormalFayette County Memorial Hospital on above:Order Comment: Specimen Type: BLOOD SPECIMENOrdering Facility: [facility] Address:[address] [place], [place] [address]Performed By: #### 48593-3 ####[facility] LABCLIA [id number] [place], [place] [address]VWO (RBC) [Entitic mass]32.5 jdDnorui90.0-34.0[facility] on above:Order Comment: Specimen Type: BLOOD SPECIMENOrdering Facility: [facility] Address:[address] [place], [place] [address]Performed By: #### 52276-3 ####[facility] LABCLIA [id number] [place], [place] [address]AWUB (RBC) [Mass/Vol]35.7 g/dZYmmcgb02.5-36.0[facility] on above: Order Comment: Specimen Type: BLOOD SPECIMENOrdering Facility: [facility] Address:[address] [place], [place] [address]Performed By: #### 87371- 8 ####[facility] LABIA [id number] [place], [place] [address]SUI (RBC) [Entitic vol]91.1 lMQbdmke15.0-100.0[facility] on above:Order Comment: Specimen Type: BLOOD SPECIMENOrdering Facility: [facility] Address:[address] [place], [place] [address]Performed By: #### 07348-5 ####[facility] LABIA [id number] [place], [place] [address]Onpulnsjg (Bld) [#/Vol]0.48 10*3/uLNormal<0.87[facility] on above:Order Comment: Specimen Type: BLOOD SPECIMENOrdering Facility: [facility] Address:[address] [place], [place] [address]Performed By: #### 06852- 8 ####[facility] LABIA [id number] [place], [place] [address]Vgynjlyfo/100 WBC (Bld)11.4 %NormalFayette County Memorial Hospital on above:Order Comment: Specimen Type: BLOOD SPECIMENOrdering Facility: [facility] Address:[address] [place], [place] [address]Performed By: #### 02717-2 ####[facility] LABCLIA [id number] [place], [place] [address]Pinkbtoeqvu (Bld) [#/Vol]2.88 10*3/uLNormal1.45-7.50[facility] on above:Order Comment: Specimen Type: BLOOD SPECIMENOrdering Facility: [facility] Address:[address] [place], [place] [address]Performed By: #### 31288-3 ####[facility] LABCLIA [id number] [place], [place] [address]Hblsmuayelt/100 WBC (Bld)68.4 %NormalFayette County Memorial Hospital on above:Order Comment: Specimen Type: BLOOD SPECIMENOrdering Facility: [facility] Address:[address] [place], [place] [address]Performed By: #### 30870-9 ####[facility] LABCLIA [id number] [place], [place] [address]Sskjsazmj RBC (Bld) [#/Vol] 10*3/uLNormal<0.01[facility] on above:Order Comment: Specimen Type: BLOOD SPECIMENOrdering Facility: [facility] Address:[address] [place], [place] [address]Performed By: #### 12378-5 ####[facility] LABCLIA [id number] [place], [place] [address]Lrybrpsbj RBC/100 WBC (Bld) [Ratio]0.0 /100 WBCNormal [facility] on above:Order Comment: Specimen Type: BLOOD SPECIMENOrdering Facility: [facility] Address:[address] [place], [place] [address]Performed By: #### 23341-4 ####[facility] LABCLIA [id number] [place], [place] [address]Gnjppqwo mean volume (Bld) [Entitic vol]10.2 fLNormal9.0-12.7CAshtabula County Medical Center on above:Order Comment: Specimen Type: BLOOD SPECIMENOrdering Facility: [facility] Address:[address] [place] [address] Performed By: #### 57702-7 ####[facility] LABCLIA [id number] [place], [place] [address]Osmiirrpa (Bld) [#/Vol]182 10*3/oBIxtefo658-850CcivnmmwpFayette County Memorial Hospital on above:Order Comment: Specimen Type: BLOOD SPECIMENOrdering Facility: [facility] Address:[address] [place], [place] [address]Performed By: #### 83884-4 ####[facility] LABCLIA [id number] [place], [place] [address]KQE (Bld) [#/Vol]3.94 10*6/uLLow4.20-6.00[facility] on above:Order Comment: Specimen Type: BLOOD SPECIMENOrdering Facility: [facility] Address:[address] [place], [place] [address]Performed By: #### 59935-3 ####[facility] LABCLIA [id number] [place], [place] [address]MTM (Bld) [#/Vol]4.22 10*3/uL Normal3.70-11.00[facility] on above:Order Comment: Specimen Type: BLOOD SPECIMENOrdering Facility: [facility] Address:[address] [place], [place] [address]Performed By: #### 83449-6 ####[facility] LABCLIA [id number] [place], [place] [address]HX CHEST W IVCONon 01-77-4139WN CHEST W IVCON* * *Final Report* * * DATE OF EXAM: Jun 22 2024 9:02AM [facility] 0539 - CT CHEST W [...] abdomen: Visualized upper abdomen is grossly unremarkable. Cd Mixer (topogram) images: Unremarkable. IMPRESSION: Previously identified new [...] any questions regarding this interpretation, please call [phone]. If you are unable to reach us at the number above, please feel free to contact [facility] eRadiology at [phone]. [id number] Metrohealth SystemCT Chest W contrast Javier 19-32-3789QOXJYSMZOT: Previously identified new pulmonary nodules have resolved [...] any questions regarding this interpretation, please call [phone]. If you are unable to reach us at the number above, please feel free to contact [facility] eRadiology at [phone].DIVISION OF RADIOLOGY* * *Final Report* * * DATE OF EXAM: Jun 22 2024 9:02AM [facility] 0539 - CT CHEST W [...] abdomen: Visualized upper abdomen is grossly unremarkable. Cd Mixer (topogram) images: Unremarkable. DIVISION OF RADIOLOGYProvider, [facility] [place] - 06/22/2024 * * *Final Report* * * DATE OF EXAM: Jun 22 2024 9:02AM [facility] 0539 - CT CHEST W [...] abdomen: Visualized upper abdomen is grossly unremarkable. Cd Mixer (topogram) images: Unremarkable. IMPRESSION IMPRESSION: Previously identified [...] any questions regarding this interpretation, please call [phone]. If you are unable to reach us at the number above, please feel free to contact [facility] at [phone]. [facility] HospitalRadiology Study observation (narrative)[facility] Chest W contrast IVOrdered By: Ccf Provider on 94-38-1194Ywxqyihla ClinicComprehensive metabolic 2000 panelOrdered By: Les Luke on 51-24-5800Dshojot [Mass/Vol]5.1 g/dLHigh3.9 - 4.9 g/dLClemercy health springfield regional medical center ClinicALP [Catalytic activity/Vol]88 U/L38 - 113 U/LCleveland ClinicALT [Catalytic activity/Vol]15 U/L10 - 54 U/LCleveland Clinic Anion gap [Moles/Vol]9 mmol/L8 - 15 mmol/LCleveland ClinicAST [Catalytic activity/Vol]33 U/L14 - 40 U/LCleveland ClinicBilirubin [Mass/Vol]1.1 mg/dL0.2 - 1.3 mg/dLClemercy health springfield regional medical center ClinicCalcium [Mass/Vol]10.3 mg/dLHigh8.5 - 10.2 mg/dL [facility] HospitalChloride [Moles/Vol]97 mmol/LLow98 - 107 mmol/LCleveland Clinic CO2 [Moles/Vol]26 mmol/L22 - 30 mmol/LCleveland ClinicCreatinine [Mass/Vol]0.96 mg/dL0.73 - 1.22 mg/dLCharlotte Hall ClinicGFR/1.73 sq M.predicted among non-blacks MDRD (S/P/Bld) [...] not accurately reflect actual GFR.Glucose [Mass/Vol] 104 mg/zGFotu00 - 99 mg/dLSelect Medical Specialty Hospital - Youngstown on above:The [place] [employer] (ADA) provides guidance for cutoff [...] Standards of Medical Care in Diabetes 2016, [place] [employer]. Diabetes Care. 2016.39(Suppl 1). Interpretation and review of laboratory resultsAbnormalCleveland ClinicPotassium [Moles/Vol]5.0 mmol/L3.7 - 5.1 mmol/LCtuscarawas hospital ClinicProtein [Mass/Vol]7.9 g/dL 6.3 - 8.0 g/dLKeenan Private Hospitalodium [Moles/Vol]132 mmol/VWah359 - 144 mmol/L [facility] HospitalUrea nitrogen [Mass/Vol]11 mg/dL9 - 24 mg/dLPromedica Memorial HospitalComprehensive metabolic 2000 panelon 88-18-0364Inrifqf [Mass/Vol]5.1 g/dLHigh3.9-4.9CAshtabula County Medical Center on above:Order Comment: Specimen Type: BLOOD SPECIMENOrdering Facility: [facility] Address:[address] [place], [place] [address]Zqsnznohr By: #### 14694- 8 ####[facility] HOSPITALZULEIMA [facility] LABCLIA [id number] [place], [place] [address]KDW [Catalytic activity/Vol]88 U/CQpzyev26-680OwghimpioFayette County Memorial Hospital on above:Order Comment: Specimen Type: BLOOD SPECIMENOrdering Facility: [facility] Address:[address] [place], [place] [address]Performed By: #### 52552-2 ####[facility] LABCLIA [id number] [place] [address]HKM [Catalytic activity/Vol]15 U/MIkomfm19-23MiagymhouFayette County Memorial Hospital on above:Order Comment: Specimen Type: BLOOD SPECIMENOrdering Facility: [facility] Address:[address] [place], [place] [address]Performed By: #### 41235- 8 ####[facility] LABCLIA [id number] [place] MILESBANNER OCOTILLO MEDICAL CENTERJOAQUÍNDILL[place], [place] [address]Awrca gap [Moles/Vol]9 mmol/LNormal8-15[facility] on above:Order Comment: Specimen Type: BLOOD SPECIMENOrdering Facility: [facility] Address:[address] [place], [place] [address]Performed By: #### 35173-1 ####[facility] LABCLIA [id number] [place], [place] [address]GCL [Catalytic activity/Vol]33 U/XYqemej80-48YonmrdtmlFayette County Memorial Hospital on above:Order Comment: Specimen Type: BLOOD SPECIMENOrdering Facility: [facility] Address:[address] [place], [place] [address]Performed By: #### 55418-3 ####[facility] LABCLIA [id number] [place] [address] Bilirubin [Mass/Vol]1.1 mg/dLNormal0.2-1.3CAshtabula County Medical Center on above:Order Comment: Specimen Type: BLOOD SPECIMENOrdering Facility: [facility] Address:[address] [place], [place] [address]Performed By: #### 04831-2 ####[facility] LABCLIA [id number] NEIL DILLONELINBANNER OCOTILLO MEDICAL CENTERJOAQUÍNDILLON, [place] [address]Yxzksil [Mass/Vol]10.3 mg/dLHigh8.5-10.2CAshtabula County Medical Center on above:Order Comment: Specimen Type: BLOOD SPECIMENOrdering Facility: [facility] Address:[address] [place], [place] [address]Performed By: #### 55703-5 ####[facility] LABCLIA [id number] [place], [place] [address]Efwqrfhs [Moles/Vol]97 mmol/VSxf22-574GmsybnjfgFayette County Memorial Hospital on above:Order Comment: Specimen Type: BLOOD SPECIMENOrdering Facility: [facility] Address:[address] [place], [place] [address]Performed By: #### 12607- 8 ####[facility] LABCLIA [id number] [place], [place] [address]JI1 [Moles/Vol]26 mmol/MAfmvmz40-55WcsidcllyFayette County Memorial Hospital on above:Order Comment: Specimen Type: BLOOD SPECIMENOrdering Facility: [facility] Address:[address] [place], [place] [address]Performed By: #### [id number] ####[facility] LABCLIA [id number] [place], [place] [address]Htlbrimhqr [Mass/Vol]0.96 mg/dL Normal0.73-1.22[facility] on above:Order Comment: Specimen Type: BLOOD SPECIMENOrdering Facility: [facility] Address:[address] [place], [place] [address]Performed By: #### [id number] ####[facility] LABCLIA [id number] [place], [place] [address]Vufsxfywuh and Glomerular filtration rate.predicted panel (S/P/Bld)87 mL/min/1.73m???Normal>=60[facility] on above:Order Comment: Specimen Type: BLOOD SPECIMENOrdering Facility: [facility] Address:[address] [place], [place] [address]Result Comment: Estimated Glomerular Filtration Rate (eGFR) is [...] not accurately reflect actual GFR.Performed By: #### [id number] ####[facility] LABCLIA [id number] [place], [place] [address]Ewakudu [Mass/Vol]104 mg/mGXjxp63-05PkkvipmqjFayette County Memorial Hospital on above:Order Comment: Specimen Type: BLOOD SPECIMENOrdering Facility: [facility] Address:[address] [place] [address]Gnvwar Comment: The [place] Diabetes Association (ADA) provides guidance for cutoff [...] Standards of Medical Care in Diabetes 2016, [place] Diabetes Association. Diabetes Care. 2016.39(Suppl 1).Performed By: #### 68863-2 ####[facility] LABCLIA [id number] [place], [place] [address]Xiajppxre [Moles/Vol]5.0 mmol/LNormal3.7-5.1CAshtabula County Medical Center on above:Order Comment: Specimen Type: BLOOD SPECIMENOrdering Facility: [facility] Address:[address] [place], [place] [address]Xynasghln By: #### 22993-7 ####[facility] LABCLIA [id number] [place], [place] [address]Kunfruk [Mass/Vol]7.9 g/dLNormal6.3-8.0[facility] on above:Order Comment: Specimen Type: BLOOD SPECIMENOrdering Facility: [facility] Address:[address] [place] [address]Wmumrkuxv By: #### 82451- 8 ####[facility] LABCLIA [id number] [place], [place] [address]Zmsjow [Moles/Vol]132 mmol/ZFwo930-666NalnpifugFayette County Memorial Hospital on above:Order Comment: Specimen Type: BLOOD SPECIMENOrdering Facility: [facility] Address:[address] [place], [place] [address]Performed By: #### 61307-0 ####[facility] LABCLIA [id number] [place], [place] [address]Bntd nitrogen [Mass/Vol]11 mg/dLNormal9-24[facility] on above:Order Comment: Specimen Type: BLOOD SPECIMENOrdering Facility: [facility] Address:[address] [place] [address]Etyetxdjp By: #### 46447-8 ####[facility] LABCLIA [id number] [place], [place] [address]ETSMzu [id number] (MYLA) CARSON MORSE ([id number]) 1955 M Date Time Provider Department 06/12/24 [...] liver [K76.0] Order(s):ALPHA FETOPROTEIN [SQAFP] Order #: [id number] FUTURE US ABD RIGHT UPPER QUADRANT [[id number]] Order #: [id number] FUTURE DDI VIBRATION CONTROLLED TRANSIENT ELASTOGRAPHY (VCTE) [[id number]] Order #: [id number] Prescriptions as of 06/19/2024 - levoFLOXacin (LEVAQUIN) [...] 12/18/2020 Encounter Status:Closed by EMILY ARMSTRONG on 06/19/24[facility] HospitalUS ABD RIGHT UPPER QUADRANTon [id number] ABD RIGHT UPPER QUADRANT* * *Final Report* [...] the liver which may reflect mild/early cirrhosis. Ground Instructor Basic: ALEJO Transcribe Date/Time: May 28 2024 7:30P Dictated by : IVANNA CROFT MD This examination was interpreted and the report reviewed and electronically signed by: IVANNA CROFT MD on May 28 2024 7:33PM EST [id number] State Harding Hospital Abdomen RUQon 19-51-1015MTWHELIYGN: 1. Increase echogenicity the liver, likely secondary to hepatic steatosis. There is questionable minimal nodularity on the contour of the liver which may reflect mild/early cirrhosis. Ground Instructor Basic: ALEJO Transcribe Date/Time: May 28 2024 7:30P [...] No hydronephrosis. Ascites: None. DIVISION OF RADIOLOGYProvider, [facility] [place] - 05/28/2024 * * *Final Report* * [...] the liver which may reflect mild/early cirrhosis. Ground Instructor Basic: ALEJO Transcribe Date/Time: May 28 2024 7:30P Dictated by : IVANNA CROFT MD This examination was interpreted and the report reviewed and electronically signed by: IVANNA CROFT MD on May 28 2024 7:33PM [facility] Study observation (narrative)[facility] Abdomen RUQOrdered By: [facility] Provider on 47-20-3488Hpcxlqhlx ClinicCNPNon 23-28-3467DZSRJaqbfjgkl (GASTNO) CARSON MORSE ([id number]) 1955 M Date Time Provider Department 05/24/24 HALIMA NIXON During your visit today, we recorded the following information about you: Emily Armstrong RN 05/24/2024 9:56 AM Addendum ----- Message from Halima Nixon MD sent at 05/23/2024 2:56 PM EDT ----- Negative hep C RNA consistent with sustained response Repeat in one year Reviewed test results Pt read result message from Dr. Nixon via 360pi. Called and spoke to patient regarding test results and recommendation from Dr. Nixon Pt state dUS is sched for Mon at [place] Demonstrated understanding Dr. Lund, Orders submitted for repeat Hep C RNA Please review and sign ThanksEmily RN Allergies As of Date: 05/24/2024 (No Known Allergies) Date Reviewed: 03/30/2024 Reviewed by: Felipa Sosa MA - Fully Assessed Primary Visit Diagnosis:Chronic hepatitis C without hepatic coma (HCC) [B18.2] Order(s):HEPATITIS C RNA QUANTIFICATION BY PCR, PLASMA/SERUM [SQHCQPCR] Order #: [id number] FUTURE Prescriptions as of 06/11/2024 - levoFLOXacin [...] 12/18/2020 Encounter Status:Closed by EMILY ARMSTRONG on 05/24/24NormalCFlower HospitalHCV RNA SerPl PAULA+probe-aCncon 97-98-5056VPD RNA PAULA+probe QnNot detectedNormalHCV RNA not detected by PCR.[facility] Metrohealth SystemComment on above:Order Comment: Specimen Type: BLOOD SPECIMENOrdering Facility: [facility] Address:[address] [place], [place] [address]Performed By: #### 39264-0 ####[facility] LABCLIA [id number] [facility] [id number] OF [facility] CENTERCNPNon [id number] Telephone (MYLA) CARSON MORSE ([id number]) 1955 M Date Time Provider Department 05/17/24 [...] Allergies) Date Reviewed: 03/30/2024 Reviewed by: Felipa Soas MA - Fully Assessed Primary Visit Diagnosis:Chronic hepatitis C without hepatic coma (HCC) [B18.2] Other Visit Diagnosis:Abnormal LFTs [R79.89] Order(s):US ABD RIGHT UPPER QUADRANT [[id number]] Order #: [id number] FUTURE HEPATITIS C RNA QUANTIFICATION BY PCR, PLASMA/SERUM [SQHCQPCR] Order #: [id number] FUTURE Prescriptions as of 05/21/2024 - levoFLOXacin [...] 12/18/2020 Encounter Status:Closed by EMILY ARMSTRONG on 05/21/24[facility] HospitalCNOVSPon 77-45-9437EATFQVEiriv (SP) Office (HEMASA) CARSON MORSE ([id number]) 1955 M Date Time Provider Department 03/30/24 2:45 PM WYATT GARZA During your visit today, we recorded the following information about you: Temperature Pulse Respiration Blood pressure 97.2 degrees 82/minute 16/minute 129/79 Weight Height 64 kg 1.651 m Wyatt Garza MD 04/01/2024 9:31 AM Signed NAME: Carson Morse CLINIC NO.: [id number] DATE OF SERVICE: March 30, 2024 ([facility]) Some elements in this clinic note that [...] Metrohealth SystemCREATININE BLDOrdered By: Rufina Ibarra on 37-86-1529Nllxbpyybf [Mass/Vol]0.84 mg/dL0.73 - 1.22 mg/dLOur Lady Of Mercy HospitalGFR/1.73 sq M.predicted among non-blacks MDRD (S/P/Bld) [Vol rate/Area]96 mL/min/{1.73_m2}- PINF [facility] on above:Estimated Glomerular Filtration Rate (eGFR) is [...] GFR. Interpretation and review of laboratory resultsNormalCleveland Wooster Community HospitalCREATININE BLDon 36-67-5152Iflkhgbsbk [Mass/Vol]0.84 mg/dLNormal0.73-1.22 [facility] on above:Order Comment: Specimen Type: BLOOD SPECIMENOrdering Facility: [facility] Address:[address] [place], [place] [address]Performed By: #### CRET1 ####[facility] LABCLIA [id number] [place], [place] [address]Ibfpsrgyhq and Glomerular filtration rate.predicted panel (S/P/Bld)96 mL/min/1.73m???Normal>=60 [facility] on above:Order Comment: Specimen Type: BLOOD SPECIMENOrdering Facility: [facility] Address:[address] [place] [address]Jnwqmw Comment: Estimated Glomerular Filtration Rate (eGFR) is [...] accurately reflect actual GFR.Performed By: #### CRET1 ####[facility] LABCLIA [id number] [place], [place] [address]VH CHEST W IVCONon 73-76-9474KQ CHEST W IVCON* * *Final Report* * * DATE OF EXAM: Mar 23 2024 8:49AM [facility] 0539 - CT CHEST W [...] of an adrenal mass in the visualized phyml-yn-hykc. Fat-containing epigastric anterior abdominal hernia.. Cd Mixer (topogram) images: No additional findings. IMPRESSION: 1. [...] any questions regarding this interpretation, please call [phone]. If you are unable to reach us at the number above, please feel free to contact [facility] eRadiology at [phone]. [id number] Parma Medical Center Chest W contrast Javier 16-58-1828SXKMNOSVOI: 1. New subcentimeter nodular opacities measuring less [...] any questions regarding this interpretation, please call [phone]. If you are unable to reach us at the number above, please feel free to contact [facility] eRadiology at [phone].DIVISION OF RADIOLOGY* * *Final Report* * * DATE OF EXAM: Mar 23 2024 8:49AM [facility] 0539 - CT CHEST W [...] of an adrenal mass in the visualized epyyo-ad-qhdm. Fat-containing epigastric anterior abdominal hernia.. Cd Mixer (topogram) images: No additional findings. DIVISION OF RADIOLOGYProvider, [facility] [place] - 03/23/2024 * * *Final Report* * * DATE OF EXAM: Mar 23 2024 8:49AM [facility] 0539 - CT CHEST W [...] of an adrenal mass in the visualized ommno-pw-fvar. Fat-containing epigastric anterior abdominal hernia.. Cd Mixer (topogram) images: No additional findings. IMPRESSION IMPRESSION: [...] any questions regarding this interpretation, please call [phone]. If you are unable to reach us at the number above, please feel free to contact [facility] eRadiology at [phone]. [facility] HospitalRadiology Study observation (narrative)[facility] HospitalCT Chest W contrast IVOrdered By: Ccf Provider on 99-29-0920Xdcqdquxd [facility] W Auto Differential panel (Bld)on 06-48-1324Nmnodfxjk (Bld) [#/Vol]0.05 10*3/uLNINF [facility] HospitalBasophils/100 WBC (Bld)1.2 %[facility] HospitalDifferential cell count method Nom (Bld)AutoCleveland ClinicEosinophils (Bld) [#/Vol]0.04 10*3/uL NINFClevelatrium health mountain island ClinicEosinophils/100 WBC (Bld)0.9 %[facility] HospitalErythrocyte distribution width (RBC) [Ratio]13.1 %11.5 - 15.0 %[facility] HospitalHematocrit (Bld) [Volume fraction]38.0 %Low39.0 - 51.0 %[facility] HospitalHemoglobin (Bld) [Mass/Vol]12.9 g/dLLow13.0 - 17.0 g/dLOur Lady Of Mercy HospitalImmature granulocytes (Bld) [#/Vol]NINFCleveland ClinicImmature granulocytes/100 WBC (Bld)0.2 % [facility] HospitalInterpretation and review of laboratory resultsAbnormalCleveland ClinicLymphocytes (Bld) [#/Vol]0.83 10*3/uLLowCleKettering Health – Soin Medical CenterLymphocytes/100 WBC (Bld)19.5 %[facility] HospitalH (RBC) [Entitic mass]31.7 pg26.0 - 34.0 pg [facility] HospitalHC (RBC) [Mass/Vol]33.9 g/dL30.5 - 36.0 g/dLOur Lady Of Mercy Hospital MCV (RBC) [Entitic vol]93.4 fL80.0 - 100.0 fLCAccess Hospital DaytonMonocytes (Bld) [#/Vol]0.37 10*3/uLNINFOur Lady Of Mercy HospitalMonocytes/100 WBC (Bld)8.7 %[facility] HospitalNeutrophils (Bld) [#/Vol]2.95 10*3/uLOur Lady Of Mercy HospitalNeutrophils/100 WBC (Bld)69.5 %[facility] HospitalNucleated RBC (Bld) [#/Vol]NINFCAccess Hospital Dayton Nucleated RBC/100 WBC (Bld) [Ratio]0.0 %/100 WBCOur Lady Of Mercy HospitalPlatelet mean volume (Bld) [Entitic vol]9.6 fL9.0 - 12.7 fLCAccess Hospital DaytonPlatelets (Bld) [#/Vol]197 10*3/Doctors HospitalRBC (Bld) [#/Vol]4.07 10*6/uLLow4.20 - 6.00 m/Doctors HospitalWBC (Bld) [#/Vol]4.25 10*3/uLWayne HealthCare Main Campus ClinicCT Chest W contrast Javier 99-76-8534NOYNPPBOMV: 1. Stable appearance of bilateral pulmonary nodules. [...] any questions regarding this interpretation, please call [phone]. If you are unable to reach us at the number above, please feel free to contact [facility] eRadiology at [phone].DIVISION OF RADIOLOGY* * *Final Report* * * DATE OF EXAM: Dec 16 2023 10:46AM [facility] 0539 - CT CHEST W [...] No abnormality in the imaged upper abdomen. Cd Mixer (topogram) images: No additional findings. DIVISION OF RADIOLOGYProvider, [facility] [place] - 12/16/2023 * * *Final Report* * * DATE OF EXAM: Dec 16 2023 10:46AM [facility] 0539 - CT CHEST W [...] No abnormality in the imaged upper abdomen. Cd Mixer (topogram) images: No additional findings. IMPRESSION IMPRESSION: [...] any questions regarding this interpretation, please call [phone]. If you are unable to reach us at the number above, please feel free to contact [facility] Hospitaliology at [phone]. [facility] HospitalCT Chest W contrast IVOrdered By: Ccf Provider on 12-16-2023 [facility] HospitalCT Neck W contrast Javier 90-06-1028JMGMZITTWD: Stable appearance of the soft tissues of [...] any questions regarding this interpretation, please call [phone]. 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 Mild dystrophic calcification is [...] apices. Other: Not applicable. 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 Mild dystrophic calcification is [...] any questions regarding this interpretation, please call [phone]. If you are unable to reach us at the number above, please feel free to contact [facility] eRadiology at [phone]. [facility] Charles HospitalComprehensive metabolic 2000 panelOrdered By: Les Luke on 16-36-8261Mffzuik [Mass/Vol]4.4 g/dL3.9 - 4.9 g/dLCharlotte Hall ClinicALP [Catalytic activity/Vol]76 U/L38 - 113 U/LCleveland ClinicALT [Catalytic activity/Vol]9 U/LLow10 - 54 U/LCleveland ClinicAnion gap [Moles/Vol] 11 mmol/L9 - 18 mmol/LCleveland ClinicAST [Catalytic activity/Vol]21 U/L14 - 40 U/LCleveland ClinicBilirubin [Mass/Vol]0.8 mg/dL0.2 - 1.3 mg/dLOur Lady Of Mercy Hospital Calcium [Mass/Vol]10.2 mg/dL8.5 - 10.2 mg/dLCharlotte Hall ClinicChloride [Moles/Vol] 99 mmol/L97 - 105 mmol/LCleveland ClinicCO2 [Moles/Vol]25 mmol/L22 - 30 mmol/L [facility] HospitalCreatinine [Mass/Vol]0.84 mg/dL0.73 - 1.22 mg/dLOur Lady Of Mercy Hospital GFR/1.73 sq M.predicted among non-blacks MDRD (S/P/Bld) [Vol rate/Area]96 mL/min/{1.73_m2}- PINFCgenesis hospitaland M Health Fairview Ridges HospitalComment on above:Estimated Glomerular Filtration Rate (eGFR) [...] actual GFR.Glucose [Mass/Vol]99 mg/dL74 - 99 mg/dL [facility] HospitalComment on above:The [place] Diabetes Association (ADA) provides guidance for cutoff [...] Standards of Medical Care in Diabetes 2016, [place] Diabetes Association. Diabetes Care. 2016.39(Suppl 1). Interpretation and review of laboratory resultsAbnormalCleveland ClinicPotassium [Moles/Vol]4.5 mmol/L3.7 - 5.1 mmol/LClevelatrium health mountain island ClinicProtein [Mass/Vol]7.2 g/dL 6.3 - 8.0 g/dLClemercy health springfield regional medical center ClinicSodium [Moles/Vol]135 mmol/PLya261 - 144 mmol/L [facility] ClinicUrea nitrogen [Mass/Vol]12 mg/dL9 - 24 mg/dLThe Metrohealth System ClinicNo Panel Informationon 66-89-4135Ijmcmfgfv Study observation (narrative)[facility] HospitalProvider Letteron [phone] Letter March 16, 2023 CARSON MORSE [address] [place] [id number] CARSON MORSE 1955 Dear Lito , We [...] prompt attention to this matter. Please call [phone] and choose the traffic workforce representative option. Sincerely, [facility] [address], [place] [address] NsabwlRauffzMcCullough-Hyde Memorial HospitalProvider Letteron 03-03-2023 Provider Letter March 03, 2023 CARSON MORSE [address] [place] [address] CARSON MORSE 1955 Dear Thom , We [...] [facility] [address], [place] [address] SulmvrCdzlzkMcCullough-Hyde Memorial HospitalXR ANKLE RT MIN 3 VIEWSon 93-07-2058AG ANKLE RT MIN 3 VIEWSEXAM: XR ANKLE [...] Electronically authenticated by: ACE ARREOLA Date: 2023-01-27 14:40[facility]tering Health HamiltonXR ANKLE RT MIN 3 VIEWSon 16-34-5908JS ANKLE RT MIN 3 VIEWS EXAM: XR [...] Electronically authenticated by: BENEDICTO THAO Date: 2022-12-29 12:44[facility]tering Health HamiltonFERRITIN BLDon 79-39-7044Dftaysma [Mass/Vol]807.0 ng/sTVeir54.3 - 565.7 ng/mLCleveland ClinicFOLATE SERUMon 71-26-4983Ayrwnc [Mass/Vol]10.7 ng/mL4.7 - PINF ng/mLCleveland ClinicFerritin [Mass/Vol]on 12-16-2022 Interpretation and review of laboratory resultsAbnormalCleveland ClinicIron and Iron binding capacity panelon 62-42-1349Elgdqswvjxjign and review of laboratory resultsAbnormalCleveland ClinicIron [Mass/Vol]213 ug/gFDnlu21 - 186 ug/dL [facility] HospitalIron binding capacity [Mass/Vol]421 ug/hNZbvo197 - 386 ug/dL [facility] HospitalIron/TIBC [Molar ratio]50.6 %15.0 - 57.0 %[facility] Memorial HospitalNo Panel Informationon 32-97-9308Fwuyqtbxatwazw and review of laboratory resultsNormalCgenesis hospitaland [facility] BLD on 18-78-1003JKA Qn2.470 m[IU]/LCleveland [facility] Qnon 12-16-2022 Interpretation and review of laboratory resultsNormalCAccess Hospital DaytonVITAMIN B12 BLOODon 14-43-5768Nvdktzeoh (Vitamin B12) [Mass/Vol]276 pg/mL232 - 1245 pg/mL [facility] W Auto Differential panel (Bld)on 46-29-5003Mybvylpud (Bld) [#/Vol]0.05 10*3/uLNINFCharlotte Hall ClinicBasophils/100 WBC (Bld)1.1 %[facility] HospitalDifferential cell count method Nom (Bld)AutoCleveland ClinicEosinophils (Bld) [#/Vol]0.04 10*3/uLNINFCharlotte Hall ClinicEosinophils/100 WBC (Bld)0.9 % [facility] HospitalErythrocyte distribution width (RBC) [Ratio]13.4 %11.5 - 15.0 % [facility] HospitalHematocrit (Bld) [Volume fraction]36.7 %Low39.0 - 51.0 % [facility] HospitalHemoglobin (Bld) [Mass/Vol]12.5 g/dLLow13.0 - 17.0 g/dLOur Lady Of Mercy HospitalImmature granulocytes (Bld) [#/Vol]NINFCleveland ClinicImmature granulocytes/100 WBC (Bld)0.2 %[facility] HospitalInterpretation and review of laboratory resultsAbnormalCgenesis hospitaland ClinicLymphocytes (Bld) [#/Vol]0.60 10*3/uL LowOur Lady Of Mercy HospitalLymphocytes/100 WBC (Bld)13.5 %[facility]rville HospitalH (RBC) [Entitic mass]33.8 pg26.0 - 34.0 pgClevelLakes Medical CenterHC (RBC) [Mass/Vol]34.1 g/dL30.5 - 36.0 g/dLAultman Orrville HospitalV (RBC) [Entitic vol]99.2 fL80.0 - 100.0 fLCtuscarawas hospital ClinicMonocytes (Bld) [#/Vol]0.41 10*3/uLNINFOur Lady Of Mercy Hospital Monocytes/100 WBC (Bld)9.2 %[facility] HospitalNeutrophils (Bld) [#/Vol]3.34 10*3/uLOur Lady Of Mercy HospitalNeutrophils/100 WBC (Bld)75.1 %[facility] HospitalNucleated RBC (Bld) [#/Vol]NINFClevelChildren's Hospital of ColumbusNucleated RBC/100 WBC (Bld) [Ratio]0.0 % /100 WBCOur Lady Of Mercy HospitalPlatelet mean volume (Bld) [Entitic vol]9.2 fL9.0 - 12.7 fLCtuscarawas hospital ClinicPlatelets (Bld) [#/Vol]174 10*3/uLCharlotte Hall ClinicRBC (Bld) [#/Vol]3.70 10*6/uLLow4.20 - 6.00 m/Doctors HospitalWBC (Bld) [#/Vol]4.45 10*3/Doctors HospitalThis is an appended report. These results have been appended to a previously verified report.St. Charles HospitalCT Chest W contrast Javier 66-96-6297RFTSMIJXIZ: 1. 7 mm part solid right middle [...] any questions regarding this interpretation, please call [phone]. If you are unable to reach us at the number above, please feel free to contact [facility] at [phone].DIVISION OF RADIOLOGY* * *Final Report* * * DATE OF EXAM: Dec 15 2022 8:49AM [facility] 0539 - CT CHEST W [...] images through the upper abdomen are stable. Cd Mixer (topogram) images: No additional findings. DIVISION OF RADIOLOGYProvider, [facility] [place] - 12/15/2022 * * *Final Report* * * DATE OF EXAM: Dec 15 2022 8:49AM [facility] 0539 - CT CHEST W [...] images through the upper abdomen are stable. Cd Mixer (topogram) images: No additional findings. IMPRESSION IMPRESSION: [...] any questions regarding this interpretation, please call [phone]. If you are unable to reach us at the number above, please feel free to contact [facility] eRadiology at [phone]. [facility] Charles HospitalCT Neck W contrast Javier 87-43-6157WJJLAERMGX: Post-treatment changes without discrete residual/recurrent neoplasm or [...] any questions regarding this interpretation, please call [phone]. If you are unable to reach us at the number above, please feel free to contact [facility] eRadiology at [phone].DIVISION OF RADIOLOGY* * *Final Report* * * DATE OF EXAM: Dec 15 2022 8:49AM [facility] 0013 - CT NECK SOFT [...] was performed concurrently and is dictated separately. Cd Mixer (topogram) images: No additional findings. DIVISION OF RADIOLOGYProvider, [facility] [place] - 12/15/2022 * * *Final Report* * * DATE OF EXAM: Dec 15 2022 8:49AM [facility] 0013 - CT NECK SOFT [...] was performed concurrently and is dictated separately. Cd Mixer (topogram) images: No additional findings. IMPRESSION IMPRESSION: [...] any questions regarding this interpretation, please call [phone]. If you are unable to reach us at the number above, please feel free to contact [facility] eRadiology at [phone]. [facility] HospitalCT Neck W contrast IVOrdered By: Ccf Provider on 12-15-2022 [facility] HospitalComprehensive metabolic 2000 panelOrdered By: Les Luke on 80-19-4305Gqlffae [Mass/Vol]5.0 g/dLHigh3.9 - 4.9 g/dLCharlotte Hall ClinicALP [Catalytic activity/Vol]72 U/L38 - 113 U/LCleveland ClinicALT [Catalytic activity/Vol]16 U/L10 - 54 U/LCleveland ClinicAnion gap [Moles/Vol]12 mmol/L9 - 18 mmol/LCleveland ClinicAST [Catalytic activity/Vol]30 U/L14 - 40 U/LCleveland ClinicBilirubin [Mass/Vol]0.9 mg/dL0.2 - 1.3 mg/dLCharlotte Hall ClinicCalcium [Mass/Vol]10.5 mg/dLHigh8.5 - 10.2 mg/dLCharlotte Hall ClinicChloride [Moles/Vol]97 mmol/L97 - 105 mmol/LCleveland ClinicCO2 [Moles/Vol]28 mmol/L22 - 30 mmol/L [facility] HospitalCreatinine [Mass/Vol]0.73 mg/dL0.73 - 1.22 mg/dLOur Lady Of Mercy Hospital GFR/1.73 sq M.predicted among non-blacks MDRD (S/P/Bld) [Vol rate/Area]100 mL/min/{1.73_m2}- PINFCAccess Hospital DaytonComment on above:Estimated Glomerular Filtration Rate (eGFR) is calculated using the 2020 CKD-EPI creatinine equation. This equation utilizes serum creatinine, sex, and age as parameters. The creatinine assay has traceable calibration to isotope dilution-mass spectrometry. Refer to KDIGO guidelines for clinical interpretation. In patients with unstable renal function, e.g. those with acute kidney injury, the eGFRmay not accurately reflect actual GFR.Glucose [Mass/Vol]106 mg/sHHdrw67 - 99 mg/dL [facility] HospitalComment on above:The [place] Diabetes Association (ADA) provides guidance for cutoff [...] Standards of Medical Care in Diabetes 2016, [place] Diabetes Association. Diabetes Care. 2016.39(Suppl 1). Interpretation and review of laboratory resultsAbnormalCleveland ClinicPotassium [Moles/Vol]4.7 mmol/L3.7 - 5.1 mmol/LCleveland ClinicProtein [Mass/Vol]7.8 g/dL 6.3 - 8.0 g/dLCharlotte Hall ClinicSodium [Moles/Vol]137 mmol/L136 - 144 mmol/L [facility] HospitalUrea nitrogen [Mass/Vol]11 mg/dL9 - 24 mg/dLPromedica Memorial HospitalNo Panel Informationon 28-91-5480Oclugawty Study observation (narrative)[facility] HospitalAmbulatory Visit Summaryon 70-26-2221Ywebrtqplj Visit Summary CARSON MORSE :1955 Visit Date:04/06/2022 Ambulatory Visit Instructions Your Diagnosis BPH without urinary obstruction Nocturia Tests Performed Urnls Dip Stick Auto w/o Microscopy POC [id number] Your Care Team Attending Physician - Herve [...] MD, Sushil Degroot Where: [facility] CountyPatient Educationon 36-62-3844Atmhstk EducationUrology Hematuria, Adult Hematuria is blood in [...] these instructions at home: Medicines ? Take ipsi-zvm-wdxfygo and prescription medicines only as told by [...] the blood stops without treatment. ? Take dgpy-yjy-xvrzmvp and prescription medicines only as told by your health care provider. ? Drink enough fluid to keep your urine clear or pale yellow. This information is not intended to replace advice given to you by your health care provider. Make sure you discuss any questions you have with your health care provider. Document Released: 10/24/2006 Document Revised: 03/19/2020 Document Reviewed: 11/26/2017 [employer] Patient Education ? 2019 [employer].[facility] Urology Office/Clinic Noteon [phone] Office/Clinic NoteChief Complaint 7 month with PSA [...] Urnls Dip Stick Auto w/o Microscopy POC 55402 2. Nocturia (R35.1: Nocturia) ongoing 2x a night Follow-up With When Contact Information Herve Flores MD, Sushil Degroot, URO In 1 year 04/06/2023 EDT [facility] [address], [place] [address]- Additional Instructions: w/psa Patient Education Hematuria, Adult [...] No qualifying data Procedure (more content not included)...[facility] HospitalComment on above:Result Comment: Electronically Signed By: Herve Flores MD, Sushil Degroot\.br\Date and Time Signed: 04/06/2212:01 EDT\.br\Electronically Co-Signed By: Mariam Mchugh MA\.br\Date and Time Co-Signed: 04/06/22 11:59 EDTCT Chest W contrast Javier 46-20-9769ZDQMRDQTUY: 1. New subtle subcentimeter groundglass opacities in the right middle lobe most likely infectious/inflammatory in etiology. Consider follow-up to complete resolution. 2. Other previously noted nodular opacities measuring up to 5 mm, stable since 05/21/20. 3. Diffuse hepatic fatty infiltration. 4. Mild emphysematous changes of the lungs. Transcribe Date/Time: Dec 16 2021 8:46A Dictated by: AZNE WEAVER MD This examination was interpreted and the report reviewed and electronically signed by: ZANE WEAVER MD on Dec 16 2021 10:27AM EST Thank you for allowing us to participate in the care of your patient. Should there be any questions regarding this interpretation, please call [phone]. If you are unable to reach us at the number above, please feel free to contact [facility] at [phone].DIVISION OF RADIOLOGY* * *Final Report* * * DATE OF EXAM: Dec 16 2021 8:45AM [facility] 0539 - CT CHEST W [...] of an adrenal mass in the visualized xhmay-mk-jqiy. Fat-containing epigastric anterior abdominal hernia.. Cd Mixer (topogram) images: No additional findings. DIVISION OF RADIOLOGYProvider, [facility] [place] - 12/16/2021 * * *Final Report* * * DATE OF EXAM: Dec 16 2021 8:45AM [facility] 0539 - CT CHEST W [...] of an adrenal mass in the visualized luykw-gk-kkzv. Fat-containing epigastric anterior abdominal hernia.. Cd Mixer (topogram) images: No additional findings. IMPRESSION IMPRESSION: [...] any questions regarding this interpretation, please call [phone]. If you are unable to reach us at the number above, please feel free to contact [facility] eRadiology at [phone]. [facility] Neck W contrast Javier 17-07-6387WQWLLOIQMZ: 1. Stable anterior neck treatment changes. 2. [...] any questions regarding this interpretation, please call [phone]. If you are unable to reach us at the number above, please feel free to contact [facility] eRadiology at [phone].DIVISION OF RADIOLOGY* * *Final Report* * * DATE OF EXAM: Dec 16 2021 8:33AM [facility] 0013 - CT NECK SOFT [...] or pathological neck lymphadenopathy. DIVISION OF RADIOLOGYProvider, [facility] [place] - 12/16/2021 * * *Final Report* * * DATE OF EXAM: Dec 16 2021 8:33AM [facility] 0013 - CT NECK SOFT [...] any questions regarding this interpretation, please call [phone]. If you are unable to reach us at the number above, please feel free to contact [facility] at [phone]. [facility] HospitalNo Panel Informationon 50-77-0523Hudnvjxpd ClinicRadiology Study observation (narrative)[facility] Vital Signs Date TimeVital SignValuePerforming UafcvuxdcOofhabba81-07-7515 11:16-0400Body oiwutx412.1 cmAbram Fiore MD Work Phone: [facility] SystemUqgzvpgpjn13-79-6485 11:16-0400Body mass index (BMI) [Ratio]23.8 kg/q9MmtkroAbram Fiore MD Work Phone: [facility] SystemHnkboesjgg37-93-8366 11:16-0400Body .86 kgAbram Fiore MD Work Phone: [facility] SystemCfwwqgkbnd97-04-5886 11:18-0400Diastolic blood lkoiguch97 mm[Hg]Wyatt Garza MD Work Phone: [facility] HospitalComment on above:wegvrtm63-64-5251 11:18-0400Systolic blood mm[Hg]Wyatt Garza MD Work Phone: [facility] HospitalComment on above:zucudjz42-96-8454 11:15-0400Body cdvexe909.1 cmVfarshad Garza MD Work Phone: [facility]03-17-2025 11:15-0400Body mass index (BMI) [Ratio]25.5 kg/k8AsxciWyatt Garza MD Work Phone: [facility]03-17-2025 11:15-0400Body temperature 97.59 [degF]Wyatt Garza MD Work Phone: [facility]03-17-2025 11:15-0400Body vqivws16.5 kgWyatt Garza MD Work Phone: [facility]03-17-2025 11:15-0400Heart rate77 /min Wyatt Garza MD Work Phone: [facility]03-17-2025 11:15-0400Respiratory rate 16 /minWyatt Garza MD Work Phone: [facility]03-17-2025 11:15-7140FtP2% (BldA) [Mass fraction]97 %Wyatt Garza MD Work Phone: [facility]09-16-2024 08:53-0400Body wjjzee940.1 cmAbram Fiore MD Work Phone: [place] [address]Uldhflurft31-91-2679 08:53-0400Body mass index (BMI) [Ratio]23.8 kg/j3LjeqlwAbram Fiore MD Work Phone: [place] [address]Xcyqxyfrcc36-01-1192 08:53-0400Body dwypsv10.86 kgAbram Fiore MD Work Phone: [place] [address]Mitiducrpy54-61-2878 08:53-0400Diastolic blood xxkiqyeo42 mm[Hg]Abram Fiore MD Work Phone: [place] [address]Uuwuuimqoj21-51-9278 08:53-0400Systolic blood fwxynjpy138 mm[Hg]Abram Fiore MD Work Phone: [place] [address]Ydutculvef32-67-3115 11:41-0400Body kbzoux659.1 cmVfarshad Garza MD Work Phone: [facility]08-23-2024 11:41-0400Body temperature 97.7 [degF]Wyatt Garza MD Work Phone: [facility]08-23-2024 11:41-0400Diastolic blood acwyuevq69 mm[Hg]Wyatt Garza MD Work Phone: [facility]08-23-2024 11:41-0400Heart rate60 /min Wyatt Garza MD Work Phone: [facility]08-23-2024 11:41-0400Respiratory rate 16 /minWyatt Garza MD Work Phone: [facility]08-23-2024 11:41-1698WaS8% (BldA) [Mass fraction]98 %Wyatt Garza MD Work Phone: [facility]08-23-2024 11:41-0400Systolic blood xmjlefsj537 mm[Hg]Wyatt Garza MD Work Phone: [facility]05-24-2024 14:27-0400Body vsiafu018.1 cmVfarshad Garza MD Work Phone: [facility]05-24-2024 14:27-0400Body mass index (BMI) [Ratio]23.5 kg/w8ArxdqWyatt Garza MD Work Phone: [facility]05-24-2024 14:27-0400Body temperature 97.2 [degF]Wyatt Garza MD Work Phone: [facility]05-24-2024 14:27-0400Body rbuusu25.05 kgWyatt Garza MD Work Phone: [facility]05-24-2024 14:27-0400Diastolic blood miglmqgn60 mm[Hg]Wyatt Garza MD Work Phone: [facility]05-24-2024 14:27-0400Heart rate82 /min Wyatt Garza MD Work Phone: [facility]05-24-2024 14:27-0400Respiratory rate 16 /minWyatt Garza MD Work Phone: [facility]05-24-2024 14:27-4322RmS0% (BldA) [Mass fraction]98 %Wyatt Garza MD Work Phone: [facility]05-24-2024 14:27-0400Systolic blood dsuqkzee528 mm[Hg]Wyatt Garza MD Work Phone: [facility]02-12-2024 10:07-0500Body .1 Jaime Garza MD Work Phone: [facility]02-12-2024 10:07-0500Body temperature 97.59 [degF]Wyatt Garza MD Work Phone: [facility]02-12-2024 10:07-0500Body .6 kgWyatt Garza MD Work Phone: [facility]02-12-2024 10:07-0500Diastolic blood uuglllti59 mm[Hg]Wyatt Garza MD Work Phone: [facility]02-12-2024 10:07-0500Heart rate71 /min Wyatt Garza MD Work Phone: [facility]02-12-2024 10:07-0500Respiratory rate 16 /minWyatt Garza MD Work Phone: [facility]02-12-2024 10:07-9064NeT5% (BldA) [Mass fraction]98 %Wyatt Garza MD Work Phone: [facility]02-12-2024 10:07-0500Systolic blood mm[Hg]Wyatt Garza MD Work Phone: [facility]02-09-2023 10:48-0500Body eiqgnh180.1 Jaime Garza MD Work Phone: [facility]02-09-2023 10:48-0500Body temperature 97.59 [degF]Wyatt Garza MD Work Phone: [facility]02-09-2023 10:48-0500Body .58 kgWyatt Garza MD Work Phone: [facility]02-09-2023 10:48-0500Diastolic blood cdnebcij665 mm[Hg]Wyatt Garza MD Work Phone: [facility]02-09-2023 10:48-0500Heart rate94 /min Wyatt Garza MD Work Phone: [facility]02-09-2023 10:48-0500Respiratory rate 16 /minWyatt Garza MD Work Phone: [facility]02-09-2023 10:48-6054JcO8% (BldA) [Mass fraction]95 %Wyatt Garza MD Work Phone: [facility]02-09-2023 10:48-0500Systolic blood uiquhaqr592 mm[Hg]Wyatt Garza MD Work Phone: [facility]08-11-2022 10:45-0400Body temperature 98.1 [degF]KAVIN Atkins MD Work Phone: [facility]08-11-2022 10:45-0400Body wfykmm87.22 kgKAVIN Atkins MD Work Phone: [facility]08-11-2022 10:45-0400Diastolic blood hntqodil99 mm[Hg]KAVIN Atkins MD Work Phone: [facility]08-11-2022 10:45-0400Heart rate89 /min KAVIN Atkins MD Work Phone: [facility]08-11-2022 10:45-0400Respiratory rate 18 /Julio CesarKAVIN Atkins MD Work Phone: [facility]08-11-2022 10:45-1233OhL5% (BldA) [Mass fraction]100 %KAVIN Atkins MD Work Phone: [facility]08-11-2022 10:45-0400Systolic blood sqjdzyqx583 mm[Hg]KAVIN Atkins MD Work Phone: [facility]05-31-2022 11:34-0400Blood Pressure LocationSushil Edgar Jr. [facility] 05-31-2022 11:34-0400Diastolic blood dfnlhvod33 mm[Hg] Sushil Edgar Jr. [facility] 05-31-2022 11:34-0400Heart rate72 /Kurt Edgar Jr. [facility] 05-31-2022 11:34-0400Respiratory rate16 /Kurt Edgar Jr. [facility] 05-31-2022 11:34-0400Systolic blood uxwujxsk499 mm[Hg] Sushil Edgar Jr. [facility] Encounters Encounter DateEncounter TypeCare ProviderFacilityStart: 08-28-2025 End: 51-21-0407Zokpse Néstor Fiore MD Work Phone: [facility] [place] OtolaryngologyStart: 08-28-2025 End: 66-56-8579Qsaprq Néstor Fiore MD Work Phone: [facility] [place] OtolaryngologyStart: 08-28-2025 End: 07-52-8639Xzitbs outpatient visit 25 minutesAbram Fiore MD Work Phone: noms [place] OtolaryngologyComment on above:Non-seasonal allergic rhinitis due to other allergic trigger (Primary Dx); Chronic sinusitis, unspecified location; Tongue cancer (HCC); Bilateral impacted cerumenStart: 08-28-2025 End: 54-02-6414jnzopkjxkfFZKZZR H TIMMISNot AvailableStart: 01-21-2025 End: 59-99-6884fxoecldrgrGIERAYG M HOYFacility:[facility]tart: 01-21-2025 End: 30-44-0970Ljnfov outpatient visit 25 minutesWyatt Garza MD Work Phone: Hematology/OncologyComment on above:History of head and neck cancer (Primary Dx); Lung nodulesStart: 01-18-2025 End: 46-37-3489Tqiosknnt encounterHalima Nixon MD Work Phone: GastroenterologyComment on above:Follow Up Tests Results (Labs---->needs US, Fibroscan and OV)Start: 01-16-2025 End: 14-03-1774Chwrge-up encounterHalima Nixon MD Work Phone: GastroenterologyStart: 01-10-2025 End: 01-23-8083skeeejtxamJNXACXL M HOYFacility:[facility]tart: 01-10-2025 End: 42-77-4088Fsdsvrbxwb hospital visit by physicianArrival Time Radiology Work Phone: Radiology Pet CTComment on above:History of head and neck cancer [Z85.89]Start: 08-23-2024 End: 44-93-4619Skauyi flowsDaniel Welch [facility] Work Phone: noms AUDStart: 08-23-2024 End: 30-43-5002Nucgmb Radhika Welch [facility] Work Phone: noms AUDStart: 08-23-2024 End: 08-80-6543Bzxzxnkp SupportDemartínez Soto Rebekah CCC-A Work Phone: noms AUDComment on above:Sensorineural hearing loss (SNHL) of both ears (Primary Dx)Start: 07-23-2024 End: 69-69-6110Fyuhya Néstor Fiore MD Work Phone: noms ENT NORWALKStart: 07-23-2024 End: 38-71-1032Flawmb Néstor Fiore MD Work Phone: noms ENT NORWALKStart: 07-23-2024 End: 86-34-7992Yqfzgs outpatient visit 15 minutesAbram Fiore MD Work Phone: noms MIRIAM HOSPITALKComment on above:Tongue cancer (CMS/HCC) (Primary Dx)Start: 07-10-2024 End: 58-04-3611Lopjxe flowsheetGarojelio Charles Matthew Kenney Cuisine CCC-A Work Phone: noMS AUDStart: 07-10-2024 End: 35-85-9022Ewouvy Stream TV NetworksheetSt. Joseph's Regional Medical Centerill [facility] Work Phone: noms AUDStart: 07-10-2024 End: 27-09-6079Bpmanmkz SupportDequincy valley medical center Charles Rebekah [facility] Work Phone: noms AUDComment on above:Sensorineural hearing loss (SNHL) of both ears (Primary Dx)Start: 06-29-2024 End: 99-79-2710jzimzlhidyZFACROO M HOYFacility:[facility] Hospitaltart: 06-29-2024 End: 89-10-2114Yqbxue outpatient visit 15 minutesWyatt Garza MD Work Phone: Hematology/OncologyComment on above:History of head and neck cancer (Primary Dx); Lung nodulesStart: 06-22-2024 End: 44-51-7144tpfluxmidtWJSKOLN M HOYFacility:[facility] Hospitaltart: 06-22-2024 End: 14-94-5007Mbjzganjkl hospital visit by physicianArrival Time Radiology Work Phone: Radiology Pet CTComment on above:History of head and neck cancer [Z85.89]Start: 54-14-0918Fdhajeppt Javon Nixon MD Work Phone: GastroenterologyStart: 05-28-2024 End: 54-74-9705nwsaslbrlsIELUWWA M HOYFacility:[facility] Hospitaltart: 05-28-2024 End: 97-02-2544Vtcjmnqotx hospital visit by physicianUs [facility] LoraRadiologyComment on above:Abnormal LFTs [R79.89]Start: 47-71-9180Bnrasojeo Javon Nixon MD Work Phone: GastroenterologyStart: 05-22-2024 End: 96-09-1417ciqkorppcjTHOQGUD M HOYFacility:[facility]tart: 29-61-3466Nixkckygr Javon Nixon MD Work Phone: GastroenterologyStart: 03-30-2024 End: 95-45-1583uwxmxjfvilJBHXLKK M HOYFacility:[facility]tart: 03-30-2024 End: 07-35-6755Hfhklx outpatient visit 25 minutesWyatt Garza MD Work Phone: Hematology/OncologyComment on above:History of head and neck cancer (Primary Dx); Lung nodulesStart: 03-23-2024 End: 41-11-7627hbcqfcztweLPUXHKD M HOYFacility:[facility]tart: 03-23-2024 End: 61-14-4906Zfiwyyozfc hospital visit by physicianArrival Time Radiology Work Phone: Radiology Pet CTComment on above:Localized enlarged lymph nodes [R59.0]Start: 14-12-2023Wcjgkbxhx encounterZeny Tom RN Hematology/OncologyComment on above:ResultsStart: 12-19-2023 End: 79-80-7291Almdfn outpatient visit 25 minutesWyatt Garza MD Work Phone: Hematology/OncologyComment on above:Localized enlarged lymph nodes (Primary Dx); Severe protein-calorie malnutrition (HCC); Malignant neoplasm of head, face and neck (HCC); History of head and neck cancerStart: 12-16-2023 End: 00-58-7880Txzvocvfbo hospital visit by physicianArrival Time Radiology Work Phone: Radiology Pet CTComment on above:Lung nodules [R91.8] Start: 38-86-3908ccwpxvbhvaJzfdll L SmithFacility:EU BellevueStart: 03-10-2023 ambulatoryKIMBERLEON RENDONFacility:P3Fwywd: 01-27-2023 End: 23-81-5659vhymdramgdFR ELBA HOY .Facility:X8Pjgct: 12-28-2022 End: 00-47-6685gyzrjuiejyED ELBA HOY .Facility:S2Gywmx: 12-28-2022 End: 52-40-7480bihsydevwaJW ELBA HOY .Facility:C2Funvb: 12-16-2022 End: 47-07-8612Fwblup outpatient visit 25 minutesWyatt Garza MD Work Phone: Hematology/OncologyComment on above:Malignant neoplasm of head, face and neck (HCC) (Primary Dx); Lung nodules; Disorder of thyroidStart: 12-15-2022 End: 42-30-6239Iwhpjlgxdi hospital visit by physicianArrival Time Radiology Work Phone: Radiology Pet CTComment on above:Malignant neoplasm of head, face and neck (HCC) [C76.0]Start: 23-35-3571pwgubxnyzmCE ELBA HOY . Facility:I4Dhfcz: 91-42-6090Yyshmyreji [facility] Comment on above:Chronic hepatitis C with hepatic coma (HCC) (Primary Dx)Start: 26-66-9152tbofdahuorMsoak [facility] MAINStart: 84-51-4322Rpjplx-up encounterEritessie [facility] Specialty PharmacyComment on above:SPP Hepatology - Follow-up (Epclusa treatment complete)Start: 06-17-2022 End: 06-06-1852Gctisji encounter Julio César Atkins MD Work Phone: Radiation OncologyComment on above:Effects of radiation, sequela (Primary Dx); Head and neck cancer (HCC)Start: 50-22-7766Dcjbyrcfk encounterMarleni Atkins MD Work Phone: Radiation OncologyComment on above:Lab OrdersStart: 98-31-2570dietiztaheHdzce [facility] MAINStart: 36-30-4446Zesabk-up encounterBhavya [facility] Specialty PharmacyComment on above:SPP Hepatology - Follow-up (Epclusa - End of Treatment)Start: 04-06-2022 End: 51-80-6050swnmbykoaxOmxjns L SmithFacility:EU BellevueStart: 04-06-2022 End: 21-77-7833Ahzrztl encounter Chantell Edgar Jr. executive [facility] Jose start: 27-50-8809Nehexfzep Javon Nixon MD Work Phone: GastroenterologyComment on above:ResultsStart: 89-17-6091Xojfcogvw PharmacyKindred Hospital [facility] Specialty PharmacyComment on above:SPP Hepatology - Medication Refill (Epclusa)Start: 34-21-1769Pzujoxtzs PharmacyEriOhioHealth Hardin [facility] Hospital Specialty PharmacyComment on above:SPP Hepatology - Medication Refill (Epclusa)Start: 93-93-2412Qjbccldgm Javon Nixon MD Work Phone: GastroenterologyComment on above:Follow UpStart: 12-16-2021 End: 91-05-1465Ydpzazzygl hospital visit by physicianArrival Time Radiology Work Phone: Radiology Pet CTComment on above:Malignant neoplasm of head, face and neck (HCC) [C76.0]Start: 03-14-2018 End: 24-01-0678Kbnwphc encounter procedureDogildardoaliyah Spence Astonity:[facility] Procedures DateProcedureProcedure DetailPerforming ClinicianStart: 52-25-7263Bw soft tissue neck w/contrast Lindsey Garza MD Work Phone: Start: 08-38-5242Jwmlm count complete auto&auto difrntl Marva Garza MD Work Phone: Start: 91-07-2152LQGZWEJF FUNCTION TESTSDeBinghamton State Hospital-A Work Phone: start: 40-16-4156Xk thorax w/contrast Lindsey Garza MD Work Phone: Start: 52-08-3467Kalyv count complete auto&auto difrntl Marva Garza MD Work Phone: Start: 73-60-9224Ma abdominal real time w/image limitedHalima Nixon MD Work Phone: start: 14-49-1884Ek thorax w/contrast Lindsey Garza MD Work Phone: Start: 66-51-0250MYPRWUPUOL Milton Garza MD Work Phone: Start: 09-57-4491Ew soft tissue neck w/contrast Lindsey Garza MD Work Phone: Start: 59-99-0148Un thorax w/contrast Lindsey Garza MD Work Phone: Start: 02-42-0475Nwyov count complete auto&auto difrntl Marva Garza MD Work Phone: Start: 52-29-9276Xy soft tissue neck w/contrast Lindsey Garza MD Work Phone: Start: 34-05-4572Jg thorax w/contrast materialWyatt Garza MD Work Phone: Start: 68-08-6403Nmayc count complete auto&auto difrntl wbcWyatt Garza MD Work Phone: Start: 79-11-2481Wylqn depression screening assessment Halima Nixon MD Work Phone: start: 30-66-2005EwtbdiujdhBmkdcx Smith start: 01-89-8296DsrvakqtkrGhpgos Herve Flores biopsy of tongueRaysonu Edgar Jr. chemotherapyRaysonu Herve Flores Plan of Treatment DateCare ActivityDetailAuthorStart: 41-39-4496MQQ Vaccine (1 - 1-dose 75+ series)RSV Vaccine (1 - 1-dose 75+ series)[facility] Diabetes ScreeningDiabetes ScreeningKeenan Private Hospitaltart: 59-81-3390Frtiwinn ScreeningDiabetes ScreeningKeenan Private Hospitaltart: 45-51-3125Umscwjst Screening Diabetes ScreeningKeenan Private Hospitaltart: 08-27-2026 End: 85-41-9908Qeefble encounter sllujkwno15/21/2026 11:20 AM EDT Office Visit [facility] [address] [facility] [address] [place] [address] Abram Fiore MD [address] [facility] [address] [place] [address] NOMTricia Eduardo OtolaryngologyStart: 02-26-2026 PROSTATE CANCER SCREENING DISCUSSIONPROSTATE CANCER SCREENING DISCUSSION [facility] 01-21-2026 End: 18-81-4278VRQ W Auto Differential panel - BloodCOMPLETE BLOOD COUNT AND DIFFERENTIAL Lab Routine History of head and neck cancer Lung nodules Expected: 01/21/2026 (Approximate), Expires: 01/21/2026leveland ClinicComment on above: Expected: 01/21/2026 (Approximate), Expires: 01/21/2026Start: 01-21-2026 End: 74-66-4376Ietnibndmhvzg metabolic 2000 panel - Serum or PlasmaCOMPREHENSIVE METABOLIC PANEL Lab Routine History of head and neck cancer Lung nodules Expected: 01/21/2026 (Approximate), Expires: 01/21/2026leveland ClinicComment on above:Expected: 01/21/2026 (Approximate), Expires: 01/21/2026Start: 01-21-2026 End: 62-10-4098IT Chest W contrast IVCT CHEST W IVCON Radiology Routine History of head and neck cancer Lung nodules Expected: 01/21/2026 (Approximate), Expires: 02/20/2026[facility] ClinicComment on above:Expected: 01/21/2026 (Approximate), Expires: 02/20/2026Start: 01-21-2026 End: 14-57-2225VL Neck W contrast IVCT NECK SOFT TISSUE W IVCON Radiology Routine History of head and neck cancer Lung nodules Expected: 01/21/2026 (Approximate), Expires: 02/20/2026[facility] Work Phone: Comment on above:Expected: 01/21/2026 (Approximate), Expires: 02/20/2026Start: 01-20-2026 End: 74-37-9479Sdekvq-up /16/2026 11:40 AM EDT Visit (SP) Office Hematology/Oncology [address] [place] [address] Wyatt Garza MD [address] [place] [address] [address] FOLLOW UP AFTER CT SCANHematology/OncologyComment on above:[address] YEAR FOLLOW UP AFTER CT SCANStart: 01-13-2026 End: 88-67-5187Jmfuxzw encounter cqommwsiw55/09/2026 7:45 AM EDT Appointment Radiology Pet CT [address] [place] [address] CT CHEST AND NECKRadiology Pet CTComment on above:CT CHEST AND NECKStart: 01-10-2026 Screening for malignant neoplasm of lungLung Cancer ScreeningOur Lady Of Mercy Hospital Start: 15-69-5507IQGDCHHN SCREENDIABETES SCREENKeenan Private Hospitaltart: 10-07-2025 End: 61-15-6263Hxqeqhb encounter wgjyyyalv09/01/2025 11:20 AM EST Office Visit [facility] [place] [facility] [address] [facility] [address] [place] [address] Abram Fiore MD [address] [facility] [address] [place] [address] NOMS [place] OtolaryngologyStart: 08-28-2025 End: 04-42-5764Mjqazps encounter mzgosqvjt83/22/2025 11:20 AM EDT Office Visit NOMTricia [facility] [address] [facility] [address] [place] [address] Abram Fiore MD [address] [facility] [address] [place] [address] ArrivedNOMS [place] OtolaryngologyComment on above:ArrivedStart: 31-31-4762Mvhowhcul vaccinationInfluenza Vaccine (Season Ended)[facility]: 13-72-5590Yhwdjoddl for malignant neoplasm of lung Lung Cancer ScreeningKeenan Private Hospitaltart: 05-24-2025 End: 20-27-7539Kmqbbyfvf C virus RNA [Units/volume] (viral load) in Serum or Plasma by PAULA with probe detectionHEPATITIS C RNA QUANTIFICATION BY PCR, PLASMA/SERUM Lab Routine Chronic hepatitis C without hepaticcoma (HCC) Expected: 05/24/2025 (Approximate), Expires: 08/23/2025[facility] Work Phone: comment on above:Expected: 05/24/2025 (Approximate), Expires: 08/23/2025Start: 36-35-6808Mjubbghvs for malignant neoplasm of lungLung Cancer ScreeningKeenan Private Hospitaltart: 01-21-2025 End: 83-07-7098Lwtcff-up encounterHematology/OncologyComment on above:6 month follow up after CT scan6 month follow up after CT scan w/labsStart: 01-07-2025 End: 20-28-5388Wrtmyy-up mljpufoly70/03/2025 8:30 AM EST Visit (SP) Office Hematology/Oncology [address] [place] [address] [place], [place] [phone] Wyatt Garza MD [address] [place] [address] 6 month follow up after CT scanHematology/OncologyComment on above:[address] scanStart: 12-31-2024 End: 48-44-9656Xgxyvpr encounter giuwitcih93/24/2025 8:45 AM EST Appointment Radiology Pet CT [address] [place] [address] [place] [address] CT CHEST AND NECKRadiology Pet CTComment on above:CT CHEST AND NECKStart: 12-30-2024 End: 48-10-2064IZD W Auto Differential panel - BloodCOMPLETE BLOOD COUNT AND DIFFERENTIAL Lab Routine History of head and neck cancer Lung nodules Expected: 12/30/2024 (Approximate), Expires: 06/29/2025[facility] ClinicComment on above: Expected: 12/30/2024 (Approximate), Expires: 06/29/2025Start: 12-30-2024 End: 32-00-9322Qjbkkgnhrhbcv metabolic 2000 panel - Serum or PlasmaCOMPREHENSIVE METABOLIC PANEL Lab Routine History of head and neck cancer Lung nodules Expected: 12/30/2024 (Approximate), Expires: 06/29/2025[facility] ClinicComment on above:Expected: 12/30/2024 (Approximate), Expires: 06/29/2025Start: 12-30-2024 End: 21-70-1622PR Chest W contrast IVCT CHEST W IVCON Radiology Routine History of head and neck cancer Lung nodules Expected: 12/30/2024 (Approximate), Expires: 07/29/2025[facility] ClinicComment on above:Expected: 12/30/2024 (Approximate), Expires: 07/29/2025Start: 12-30-2024 End: 60-91-6960FM Neck W contrast IVCT NECK SOFT TISSUE W IVCON Radiology Routine History of head and neck cancer Lung nodules Expected: 12/30/2024 (Approximate), Expires: 07/29/2025[facility] Work Phone: Comment on above:Expected: 12/30/2024 (Approximate), Expires: 07/29/2025Start: 12-05-3409GJIGBAKW SCREENDIABETES SCREENKeenan Private Hospitaltart: 57-47-0994Mmsnfefre for malignant neoplasm of lungLung Cancer ScreeningKeenan Private Hospitaltart: 12-13-2024 End: 36-62-5550Geqzf-1-Fetoprotein [Mass/volume] in Serum or PlasmaALPHA FETOPROTEIN Lab Routine Fatty liver Expected: 12/13/2024 (Approximate), Expires: 03/14/2025[facility] Work Phone: comment on above:Expected: 12/13/2024 (Approximate), Expires: 03/14/2025Start: 12-13-2024 End: 66-68-6032BN Abdomen RUQUS ABD RIGHT UPPER QUADRANT Radiology Routine Fatty liver Expected: 12/13/2024 (Approximate), Expires: 07/12/2025[facility] Comment on above:Expected: 12/13/2024 (Approximate), Expires: 07/12/2025Start: 19-45-1682Lygttei Directive DiscussionAdvance Directive DiscussionKeenan Private Hospitaltart: 09-13-2024 End: 02-28-4061Pyuwqur encounter vnzyjayor92/07/2024 2:00 PM EST Office Visit [facility] [address] [place] [address] [facility] AUDStart: 08-23-2024 End: 64-53-4286Dtluumqy SupportNOHCA MIDWEST DIVISION AUDComment on above:ArrivedStart: 07-23-2024 End: 07-11-7134Yhucpek encounter procedureNOMS NICO JONESKComment on above: ArrivedStart: 07-10-2024 End: 88-48-2177Nmwveokj Puvteew6907/10/2024 1:30 PM EDT Clinical Support [facility] [address] [facility] [phone] Andreina Welch, [facility] [address] [facility] [place] [address] ArrivedNOHCA MIDWEST DIVISION AUDComment on above:ArrivedStart: 07-08-2024 Covid-19 Vaccine ()Covid-19 Vaccine () [facility]: 06-17-6039Vzpqs-19 Vaccine ()Covid-19 Vaccine ()[facility]: 19-03-3603Sixlwcwbo vaccinationKeenan Private Hospitaltart: 06-30-2024 End: 15-65-6622QEN W Auto Differential panel - BloodCOMPLETE BLOOD COUNT AND DIFFERENTIAL Lab Routine History of head and neck cancer Lung nodules Expected: 06/30/2024 (Approximate), Expires: 03/30/2025[facility] ClinicComment on above: Expected: 06/30/2024 (Approximate), Expires: 03/30/2025Start: 06-30-2024 End: 32-08-2488Imapxphktpjvo metabolic 2000 panel - Serum or PlasmaCOMPREHENSIVE METABOLIC PANEL Lab Routine History of head and neck cancer Lung nodules Expected: 06/30/2024 (Approximate), Expires: 03/30/2025levelChildren's Hospital of ColumbusComment on above:Expected: 06/30/2024 (Approximate), Expires: 03/30/2025Start: 06-30-2024 End: 42-59-9269VD Chest W contrast IVCT CHEST W IVCON Radiology Routine History of head and neck cancer Lung nodules Expected: 06/30/2024 (Approximate), Expires: 04/29/2025[facility] Work Phone: Comment on above:Expected: 06/30/2024 (Approximate), Expires: 04/29/2025Start: 06-29-2024 End: 81-46-9413Puyinu-up pbxfnvrig75/23/2024 11:15 AM EDT Visit (SP) Office Hematology/Oncology [address] [place] [address] Wyatt Garza MD [address] [place] [address] 3 MONTH FOLLOW UP AFTER CTHematology/OncologyComment on above:3 MONTH FOLLOW UP AFTER CTStart: 06-22-2024 End: 99-17-5980Raqxluq encounter ctxfujuxj88/16/2024 7:45 AM EDT Appointment Radiology Pet CT [address] [place] [address] CT CHEST W IVRadiology Pet CTComment on above:CT CHEST W IVStart: 05-28-2024 End: 44-29-3843Edtrbsz encounter kqkpduwjc47/22/2024 2:30 PM EDT Appointment Radiology [address] [place], [place] [id number] [facility] Abnormal LFTs [R79.89]RadiologyComment on above:no spl chkf g 05/21 Abnormal LFTs [R79.89]Start: 05-21-2024 End: 30-96-4287Haqxvjwht C virus RNA [Units/volume] (viral load) in Serum or Plasma by PAULA with probe detectionHEPATITIS C RNA QUANTIFICATION BY PCR, PLASMA/SERUM Lab Routine Abnormal LFTs Chronic hepatitis C without hepatic coma (HCC) Expected: 05/21/2024 (Approximate), Expires: 08/20/2024[facility] Comment on above:Expected: 05/21/2024 (Approximate), Expires: 08/20/2024Start: 05-21-2024 End: 38-77-7426HR Abdomen RUQUS ABD RIGHT UPPER QUADRANT Radiology Routine Abnormal LFTs Chronic hepatitis C without hepatic coma (HCC) Expected: 05/21/2024 (Approximate), Expires: 06/16/2025[facility] Work Phone: comment on above:Expected: 05/21/2024 (Approximate), Expires: 06/16/2025Start: 01-30-2024 End: 34-61-1811NKSUFLBNMM BLDCREATININE BLD Lab Routine Localized enlarged lymph nodes History of head and neck cancer Expected:01/30/2024, Expires: 01/17/2025 [facility] Work Phone: Comment on above:Expected: 01/30/2024, Expires: 01/17/2025Start: 01-30-2024 End: 88-42-7048GQ Chest W contrast IVCT CHEST W IVCON Radiology Routine Localized enlarged lymph nodes History of head and neck cancer Expected: 01/30/2024, Expires: 01/17/2025[facility] Work Phone: Comment on above:Expected: 01/30/2024, Expires: 01/17/2025Start: 12-16-2023 End: 94-80-3577VUG W Auto Differential panel - BloodCBC + DIFF Lab Routine Lung nodules Expected: 12/16/2023 (Approximate), Expires: 12/16/2023[facility] Work Phone: Comment on above:Expected: 12/16/2023 (Approximate), Expires: 12/16/2023Start: 12-16-2023 End: 54-54-8416Jtlcqfhcteysb metabolic 2000 panel - Serum or PlasmaCOMP METABOLIC PANEL Lab Routine Lung nodules Expected: 12/16/2023 (Approximate), Expires: 12/16/2023[facility] Work Phone: Comment on above:Expected: 12/16/2023 (Approximate), Expires: 12/16/2023Start: 12-16-2023 End: 00-51-8616IU CHEST W IVCONCT CHEST W IVCON Radiology Routine Lung nodules Expected: 12/16/2023 (Approximate), Expires: 01/15/2024[facility] Work Phone: Comment on above:Expected: 12/16/2023 (Approximate), Expires: 01/15/2024Start: 12-16-2023 End: 31-83-2925Ir soft tissue neck w/contrast materialCT NECK SOFT TISSUE W IVCON Radiology Routine Lung nodules Expected: 12/16/2023 (Approximate), Expir es: 01/15/2024[facility] Work Phone: Comment on above:Expected: 12/16/2023 (Approximate), Expires: 01/15/2024Start: 87-95-5538Yilkzzxwc vaccinationLUNG CANCER SCREENING [facility]: 35-21-1352Aaumjhz Directive DiscussionAdvance Directive DiscussionKeenan Private Hospitaltart: 22-87-5753Lnlkjgpxyv Health ScreeningBehavioral Health ScreeningKeenan Private Hospitaltart: 46-32-1591Kiwfbdhnza Assessment Depression AssessmentKeenan Private Hospitaltart: 26-40-4697Pzsfj-19 Vaccine ()Covid-19 Vaccine ()[facility]: 99-37-7061Ehrcofoxj vaccinationInfluenza Vaccine (#1)[facility]: 12-18-2022 End: 09-30-6919Vx thorax w/o contrast materialCT CHEST WO IVCON Radiology Routine Effects of radiation, sequela Head and neck cancer (HCC) Expected: 12/18/2022, Expires: 07/17/2023[facility] Work Phone: Comment on above:Expected: 12/18/2022, Expires: 07/17/2023Start: 95-32-9389Kghhw depression screening assessmentDEPRESSION SCREENINGKeenan Private Hospitaltart: 13-47-9609Xdiqttgjx vaccinationLUNG CANCER SCREENINGKeenan Private Hospitaltart: 44-33-6928HRCFGQT DIRECTIVE DISCUSSIONADVANCE DIRECTIVE DISCUSSIONKeenan Private Hospitaltart: 24-93-2824RWWYUZEWWC ASSESSMENT DEPRESSION ASSESSMENTKeenan Private Hospitaltart: 07-30-2022 End: 63-25-1293Vnaiefdck C virus RNA [Units/volume] (viral load) in Serum or Plasma by PAULA with probe detectionHCV QUANT RNA BY PCR Lab Routine Chronic hepatitis C with hepatic coma (HCC) Expected: 07/30/2022 (Approximate), Expires: 09/29/2022[facility] Work Phone: comment on above:Expected: 07/30/2022 (Approximate), Expires: 09/29/2022tart: 02-04-1810Tvurfahtw vaccinationKeenan Private Hospitaltart: 06-09-2022 End: 37-43-2360Yrctztxcybs [Units/volume] in Serum or PlasmaTSH BLD Lab Routine Effects of radiation, sequela Expected: 06/09/2022, Expires: 08/09/2022[facility] Work Phone: Comment on above:Expected: 06/09/2022, Expires: 08/09/2022tart: 06-09-2022 End: 19-47-8228Szavwadpd (T4) [Mass/volume] in Serum or PlasmaT4/THYROXINE BLOOD Lab Routine Effects of radiation, sequela Expected: 06/09/2022, Expires: 08/09/2022[facility] Work Phone: Comment on above:Expected: 06/09/2022, Expires: 08/09/2022tart: 26-44-8873LHITKTF DIRECTIVE DISCUSSIONADVANCE DIRECTIVE DISCUSSIONKeenan Private Hospitaltart: 37-52-6688GZBSSSFUG AGE 65 AND OVER WITH 5YR LOOKBACK (#1)PNEUMOVAX AGE 65 AND OVER WITH 5YR LOOKBACK (#1)[facility] Start: 03-82-4757Tzmsuffrb vaccinationINFLUENZA (#1)[facility]: 88-17-3149LMYDFHAFQ B (1 of 3 - Risk 3-dose series)HEPATITIS B (1 of 3 - Risk 3- dose series)[facility]: 39-02-0829Loasesoiq B Vaccine (1 of 3 - Risk 3-dose series)Hepatitis B Vaccine (1 of 3 - Risk 3-dose series)[facility] Start: 53-96-4330TWK Vaccine (1 - 1-dose 60+ series)RSV Vaccine (1 - 1-dose 60+ series)[facility]: 99-17-6543IOY Vaccine (1 - Risk 60-74 years 1-dose series)RSV Vaccine (1 - Risk 60-74 years 1-dose series)[facility]: 20-20-0252UMXKRHBC CANCER SCREENING DISCUSSIONPROSTATE CANCER SCREENING DISCUSSIONKeenan Private Hospitaltart: 18-42-6843Spmggsxq specific antigen measurement Prostate Cancer Screening DiscussionKeenan Private Hospitaltart: 83-02-3279DGOJZDBD VACCINE (1 of 2)SHINGRIX VACCINE (1 of 2)[facility]: 2001 COLOGUARD (FIT-DNA)COLOGUARD (FIT-DNA)[facility]: 2001 ColonoscopyCOLONOSCOPYKeenan Private Hospitaltart: 79-28-8971PDLJBCZRPB CANCER SCREENINGCOLORECTAL CANCER SCREENINGKeenan Private Hospitaltart: 31-13-5320LR COLONOGRAPHYCT COLONOGRAPHYKeenan Private Hospitaltart: 41-21-1087MDDIS OCCULT BLOOD FECAL OCCULT BLOODKeenan Private Hospitaltart: 91-51-5820Rfyaysxu specific antigen measurementProstate Cancer Screening DiscussionKeenan Private Hospitaltart: 2001 Screening for malignant neoplasm of colonKeenan Private Hospitaltart: 2001 SIGMOIDOSCOPYSIGMOIDOSCOPYKeenan Private Hospitaltart: 76-87-8828Knbhq panelLipid ScreeningKeenan Private Hospitaltart: 08-11-7730TASDX SCREENLIPID SCREENKeenan Private Hospitaltart: 18-65-5355DMNEELEZU B (1 of 3 - Risk 3-dose series)HEPATITIS B (1 of 3 - Risk 3-dose series)[facility]: 73-96-2526Yclvumuoujul Vaccine: 50+ (1 of 2 - PCV)Pneumococcal Vaccine: 50+ (1 of 2 - PCV)[facility] Start: 08-55-1497XGRBRPEQ VACCINE (1 of 2)SHINGRIX VACCINE (1 of 2)[facility]: 10-41-8657Dlbkh microalbumin profileCleMemorial Health System Marietta Memorial Hospitaltart: 99-95-9212Enguupa ScreeningAnxiety ScreeningKeenan Private Hospitaltart: 1973 Depression ScreeningDepression ScreeningKeenan Private Hospitaltart: 86-34-5360YGJ SCREENINGHIV SCREENINGKeenan Private Hospitaltart: 21-37-9663Wpeukfcqlzgn Vaccine: 65+ (1 of 2 - PCV)Pneumococcal Vaccine: 65+ (1 of 2 - PCV)[facility]: 41-43-0596JPACKKZEPOJQ: 65+ (1 - PCV)PNEUMOCOCCAL: 65+ (1 - PCV)[facility] Start: 92-38-4758RXSPK-19 VACCINE (#1)COVID-19 VACCINE (#1)[facility] Start: 73-25-2714DDMTM-19 VACCINE (1)COVID-19 VACCINE (1)[facility]: 31-07-1683JIROS-19 VACCINE (#1)COVID-19 VACCINE (#1)[facility]: 61-49-7745RIDMZSGXZ AORTIC ANEURYSM SCREENINGABDOMINAL AORTIC ANEURYSM SCREENING [facility]: 41-81-6264Jasirqlbo aortic aneurysm screeningAbdominal Aortic Aneurysm ScreeningMiami Valley HospitalJpncnuHmzko-5-Gmoqpbsxptu [Mass/volume] in Serum or PlasmaALPHA FETOPROTEIN Lab Routine Fatty liver 01/10/2025 2:10 PM EST [facility] Work Phone: cT Chest W contrast IVCT CHEST W IVCON Radiology Routine History of head and neck cancer Lung nodules 01/10/2025 3:05 PM EST [facility] Work Phone: End: 65-97-9637OEHMZFW FUNCTION PNLHEPATIC FUNCTION PNL Lab Routine Hepatitis C antibody positive in blood Every 3 weeks for 2 Occurrences starting 01/26/2022 until 01/25/2023[facility] Work Phone: comltfz on above:Every 3 weeks for 2 Occurrences starting 01/26/2022 until 01/25/2023 End: 97-87-0065Tcceklxlg C virus RNA [Units/volume] (viral load) in Serum or Plasma by PAULA with probe detectionHCV QUANT RNA BY PCR Lab Routine Hepatitis C antibody positive in blood Every 3 weeks for 2 Occurrences starting 01/26/2022 until 01/25/2023[facility] Work Phone: combxya on above:Every 3 weeks for 2 Occurrences starting 01/26/2022 until 01/25/2023Liver ultrasound attenuation by transient elastographyDDI VIBRATION CONTROLLED TRANSIENT ELASTOGRAPHY (VCTE) Endoscopy Routine Fatty liver Ordered: 06/18/2024[facility] ClinicComment on above:Ordered: 06/18/2024Thyrotropin [Units/volume] in Serum or PlasmaTSH BLD Lab Routine Effects of radiation, sequela 06/17/2022 10:[address] [facility] Work Phone: Thyroxine (T4) [Mass/volume] in Serum or Plasma T4/THYROXINE BLOOD Lab Routine Effects of radiation, sequela 06/17/2022 10:[address] [facility] Work Phone: [facility] Immunizations Immunization DateImmunizationNotesCare ProviderFacilityNEGATED: Highlighted row has not occurred!59-21-4609ycorejdks virus vaccine, unspecified formulation Sushil Edgar Jr. executive [facility] Payers DatePayer CategoryPayerPolicy [id number] (Managed Care) [id number] [id number] Health Insurance [id number] [id number] 2022Medicare [id number] 2022MedicaidMEDICAID [facility] MEDICAID [id number] 2021-Present [phone] [address] [place], [place] [id number] [id number] [id number] Health [id number]-jbt50-03-6736Hyvxgyx [id number] 2.16.840.1.204441.3.579.2. [id number] 2.16.840.1.015580.3.57[id number] 2.16.840.1.351478.3.57[id number] 2.16.840.1.834183.3.57[id number] 2.16.840.1.830993.3.579.[id number] 2.16.840.1.395898.3.57[id number] 2.16.840.1.889889.3.579.[id number] 2.16.840.1.9474[id number] 2.16.840.1.318460.3.579.2.531 Social History DateTypeDetailFacilityStart: 11-07-1971 End: 15-79-1288Lwlxnpi smoking status NHISSmokes tobacco dailyOur Lady Of Mercy Hospital Start: [birth year]-07-1970 End: 25-10-2972Mupdfeu of tobacco useCigarette SmokerKeenan Private Hospitaltart: 10-13-2020 End: 92-35-7700Vykoaefhum smoked current (pack per day) - Fxokuwco6Kwxiopnmy ClinicStart: 10-13-2020 End: 30-64-3977Ewuhqmi use and exposureUser of smokeless tobaccoOur Lady Of Mercy Hospital Start: 12-17-2021 End: 02-29-6274Glrqilx intakeCurrent drinker of alcohol (finding)[facility]: 75-74-7111Liouyut SDOH Alcohol CommentsociallyClevelatrium health [facility] Start: 01-09-2018 End: 62-12-3193Tpfhzsp Commentstarted 1972[facility]: 47-11-0529Iwx Assigned At BirthNot on fileKeenan Private Hospitaltart: 01-10-2022 End: 03-26-4846Wxxsglbh to SARS-CoV-2 (event)Unable to assessOur Lady Of Mercy Hospital Start: 59-84-5721Yrawfis smoking statusLight tobacco smoker (finding)Executive [facility] start: 12-19-2023 End: 57-35-2213Wme Assigned At BirthMaleExformerly [facility] start: 06-07-2022 End: 37-47-9050Xrfogkap to SARS-CoV-2 (event)Not sureKeenan Private Hospitaltart: 25-75-7757Aokbx Depression Screening Jthcuqkteq1Tnmzhrheq ClinicStart: 03-28-2023 End: 27-07-4852Aixeumo use and exposureSmokeless tobacco non-userNOMS Healthcare Start: 86-13-2407Xkpjtlp CommentSmokes 6-10 cigarettes/dayNOMS HealthcareStart: 43-10-0022Wgtnvga CommentCaffeine >4 cups/dayNOMS HealthcareStart: 07-20-2023 Alcoholic beverage intakeEx-drinker (finding)[facility] Healthcare Clinical Notes 12-16-2021 to 08-28-2025 Note Date & KwoaDwzeWenmmddf14-82-5536 History of Present illness Narrative* Abram Firoe MD - 08/28/2025 11:20 AM EDT Images from the original note were not included. Subjective Patient ID: Carson Morse is a 69 y.o. 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 Chronic hepatitis C ([facility]) 08/28/2025 Closed fracture of ankle 08/28/2025 Closed fracture of distal end of right fibula 08/28/2025 Closed fracture of upper end of fibula 08/28/2025 COPD (chronic obstructive pulmonary disease) ([facility]) 08/28/2025 Diarrhea 08/28/2025 Dysphagia 08/28/2025 Erectile dysfunction 08/28/2025 Facial fracture ([facility]) 08/28/2025 Odynophagia 08/28/2025 Opioid abuse ([facility]) 08/28/2025 Leukocytosis 08/28/2025 Poisoning by unspecified narcotics, accidental (unintentional), initial encounter ([facility]) 08/28/2025 Recurrent falls 08/28/2025 Solitary pulmonary [...] [2] Past Surgical History: Procedure Laterality Date DE LARYNGOSCOPY,DIRECT,DX,OP MICROSCOP 12/27/2017 [3] No Known Allergies [...] file prior to visit. documented in this encounterLake Regional Health SystemCgqbupumnq48-06-5103 History of Present illness Narrative* Wyatt Garza MD - 01/21/2025 11:40 AM EDT Images from the original note were not included. NAME: Carson Morse CLINIC NO.: [id number] DATE OF SERVICE: January 21, 2025 (Mirian) [...] organ systems. 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 Updated Visit, June 19, 2020: [...] which included preparing to see the patient, ibfl-lq-cepv patient care, completing clinical documentation, performing a medically appropriate examination, counseling and educating the patient/family/caregiver, ordering medications, tests, or procedures, independently interpreting results (not separately reported), communicating results to the patient/family/caregiver, and care coordination (not separately reported). Wyatt Garza MD, CPE Hematology and Oncology Services Provided at: [place], [place] CC: Elba De La Cruz MD [address] [facility] [address] Halima Nixon MD documented in this encounterOur Lady Of Mercy Hospital03-17-2025 NoteHNO ID: [id number] Author: WYATT GARZA MD Service: ? Author Type: Physician Type: Progress Notes Filed: 01/21/2025 11:32 Note Text: NAME: Carson Morse CLINIC NO.: [id number] DATE OF SERVICE: January 21, 2025 (Mirian) [...] with me to review documented in this encounterOur Lady Of Mercy Hospital03-14-2025 Telephone encounter Note * Telephone Encounter - Ivette Lala - 01/18/2025 12:31 PM EDT Unable to lvm and no mychart [facility]03-14-2025 Miscellaneous Notes* Telephone Encounter - Ivette [...] Thank you, NOLAN Meeks Noma, MD P [facility] Nurse [place] Normal AFP Patient is overdue for US He needs to schedule Halima Nixon MD documented in this encounterOur Lady Of Mercy Hospital03-14-2025 Telephone encounter Note * Telephone Encounter - Mary Villarreal RN - 01/18/2025 10:48 AM EDT Images from the original note were not included. Pt notified of results and recommendations and verbalized understanding. Schedulers, please call pt to schedule US, Fibroscan and OV. Orders are already placed. Thank you, NOLAN Meeks Noma, MD [facility] Nurse [place] Normal AFP Patient is overdue for US He needs to schedule Halima Nixon MD [facility] Work Phone: 1(464) 559-313503-06-2025 History of Present illness Narrative* Roxann Mcgregor [...] PATIENT PRESENTS WITH AN IMPLANTABLE OR ATTACHED MECHANICAL FACILITIES TECHNICIAN: No RADIOLOGY DEPARTMENT: CT; Exam(s) Completed: Chest and Neck PERIPHERAL IV DATA: Site assessment: Clean,Dry and Intact, Site disposition Discontinued SIGNED BY: ANNABELLE Stewart) January 10, 2025 2:51 PM documented in this encounterOur Lady Of Mercy Hospital03-06-2025 NoteHNO ID: [id number] Author: SONJA MELGAR RT (R) Service: ? [...] PATIENT PRESENTS WITH AN IMPLANTABLE OR ATTACHED MECHANICAL FACILITIES TECHNICIAN: No RADIOLOGY DEPARTMENT: CT; Exam(s) Completed: Chest and Neck PERIPHERAL IV DATA: Site assessment: Clean,Dry and Intact, Site disposition Discontinued SIGNED BY: ANNABELLE Stewart) January 10, 2025 2:51 [facility]03-06-2025 NoteHNO ID: [id number] Author: ROXANN MCGREGOR RN Service: ? Author [...] Morse DATE: January 10, 2025 TIME: 2:44 [facility]10-17-2024 History of Present illness Narrative* Andreina Welch, [facility] - 08/23/2024 11:15 AM EDT Hearing Aid Fitting: Pt fit with [employer] [place] [address] T aids coupled to [...] quicker. Taught pt how to use his communication professor, how to use the rocker to changevolume, and how to change domes and filters. Pt has flip phone so he cannot use the luis manuel. Pt did notwant to wear the aids home so aids were put in the case. Made follow up appointment and completed HCS paperwork documented in this encounterLake Regional Health SystemGdoleeboqz37-36-2291 History of Present illness Narrative* Abram Fiore MD - 07/23/2024 9:00 AM EDT Subjective Patient ID: Carson Morse is a 68 y.o. 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 Benign prostatic hyperplasia without urinary obstruction 06/21/2023 Current smoker 06/21/2023 Hoarse voice quality 06/21/2023 Lung nodules 12/18/2020 Malignant neoplasm of head, face and neck ([facility]) 12/18/2020 Mucositis due to radiation therapy 02/27/2018 Myelosuppression 03/24/2018 Severe protein-calorie malnutrition ([facility]) 02/27/2018 Closed right maxillary fracture ([facility]) 07/20/2023 Resolved Ambulatory Problems Diagnosis Date Noted History of tongue cancer 06/21/2023 Nocturia 06/21/2023 Past Medical History: Diagnosis Date COVID-19 10/2021 SCC (squamous cell carcinoma) 12/27/2017 Past Surgical History: Procedure Laterality Date DE LARYNGOSCOPY,DIRECT,DX,OP MICROSCOP 12/27/2017 No Known Allergies Current [...] all orders for this visit: Tongue cancer ([facility]) CADEN today documented in this encounterLake Regional Health [id number] History of Present illness Narrative* Andreina Welch, [...] 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 He will owe $250 to [facility]. Explained HCS process to pt and made HAF in 6 weeks documented in this encounterLake Regional Health [id number] Instructions* Patient Instructions* Svetlana Call - 06/29/2024 12:[address] Neck Chest in 12/2024 Labs same day - include CBC, CMP RTC 1 week after with me to review Pursue annual scans and visits after December 2024 documented in this encounterOur Lady Of Mercy Hospital08-23-2024 History of Present illness Narrative* Wyatt Garza MD - 06/29/2024 11:15 AM EDT Images from the original note were not included. NAME: Carson Morse CLINIC NO.: [id number] DATE OF SERVICE: June 29, 2024 (Mirian) [...] organ systems. 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 Wyatt Garza MD, CPE Hematology and Oncology Services Provided at: [place], [place] Scribe Attestation: This note was scribed by Svetlana aCll on June 29, 2024 under the direction and supervision of Dr. Wyatt Garza. I attest that all of the information documented is correct to the best of my knowledge. Provider Attestation: I, Wyatt Garza MD, attest that all information documented by the above scribe is correct, and was supervised by me and under my direction. CC: Elba De La Cruz MD [address] [facility] [id number] Halima Nixon MD documented in this encounterOur Lady Of Mercy Hospital08-23-2024 NoteHNO ID: [id number] Author: WYATT GARZA MD Service: ? Author Type: Physician Type: Progress Notes Filed: 06/30/2024 21:51 Note Text: NAME: Carson Morse CLINIC NO.: [id number] DATE OF SERVICE: June 29, 2024 (Mirian) [...] PATIENT PRESENTS WITH AN IMPLANTABLE OR ATTACHED MECHANICAL FACILITIES TECHNICIAN: No RADIOLOGY DEPARTMENT: CT; Exam(s) Completed: Chest PERIPHERAL IV DATA: Site assessment: Clean,Dry and Intact, Site disposition Discontinued SIGNED BY: RT Terry(R) June 22, 2024 8:54 AM documented in this encounterOur Lady Of Mercy Hospital08-16-2024 NoteHNO ID: [id number] Author: SONJA MELGAR RT(R) Service: ? Author [...] PATIENT PRESENTS WITH AN IMPLANTABLE OR ATTACHED MECHANICAL FACILITIES TECHNICIAN: No RADIOLOGY DEPARTMENT: CT; Exam(s) Completed: Chest PERIPHERAL IV DATA: Site assessment: Clean,Dry and Intact, Site disposition Discontinued SIGNED BY: ANNABELLE Stewart) June 22, 2024 8:54 [facility]08-16-2024 NoteHNO ID: [id number] Author: ROXANN MCGREGOR RN Service: ? Author [...] Morse DATE: June 22, 2024 TIME: 8:31 [facility]08-06-2024 Telephone encounter Note* Telephone Encounter - Emily [...] Please review and sign Emily Hi RN [facility]08-06-2024 Miscellaneous Notes* Telephone Encounter - Emily [...] sign Emily Hi RN documented in this encounterOur Lady Of Mercy Hospital07-22-2024 History of Present illness Narrative* Melba Ag RDMS - 05/28/2024 2:30 PM EDT [...] PATIENT PRESENTS WITH AN IMPLANTABLE OR ATTACHED MECHANICAL FACILITIES TECHNICIAN: No RADIOLOGY DEPARTMENT: Ultrasound PERIPHERAL IV DATA: Not applicable SIGNED BY: Melba Ag RDMS May 28, 2024 1:49 PM documented in this encounterOur Lady Of Mercy Hospital07-22-2024 NoteHNO ID: [id number] Author: MELBA AG RDMS Service: Radiology Author Type: [place] Type: Progress Notes Filed: 05/28/2024 13:57 Note [...] PATIENT PRESENTS WITH AN IMPLANTABLE OR ATTACHED MECHANICAL FACILITIES TECHNICIAN: No RADIOLOGY DEPARTMENT: Ultrasound PERIPHERAL IV DATA: Not applicable SIGNED BY: Melba Ag RDMS May 28, 2024 1:49 [facility]07-18-2024 Telephone encounter Note* Telephone Encounter - Emily Armstrong RN - 05/24/2024 9:49 AM EDT ----- Message from Halima Nixon MD sent at 05/23/2024 2:56 PM EDT ----- Negative hep C RNA consistent with sustained response Repeat in one year Reviewed test results Pt read result message from Dr. Nixon via [employer]pi. Called and spoke to patient regarding test results and recommendation from Dr. Nixon Pt state dUS is sched for [facility] [place] Demonstrated understanding Dr. Lund, Orders submitted for repeat Hep C RNA Please review and sign Emily Hi RN [facility]07-18-2024 Miscellaneous Notes* Telephone Encounter - Emily Armstrong RN - 05/24/2024 9:49 AM EDT ----- Message from Halima Nixon MD sent at 05/23/2024 2:56 PM EDT ----- Negative hep C RNA consistent with sustained response Repeat in one year Reviewed test results Pt read result message from Dr. Nixon via [employer]. Called and spoke to patient regarding test results and recommendation from Dr. Nixon Pt state dUS is sched for [facility] [place] Demonstrated understanding Dr. Lund, Orders submitted for repeat Hep C RNA Please review and sign Emily Hi RN documented in this encounterOur Lady Of Mercy Hospital07-15-2024 Telephone encounter Note * Telephone Encounter - Emily Armstrong RN - 05/21/2024 10:14 AM EDT Called and updated pt on scheduling US Phone number provided for scheduling Also instructed to complete lab draw at [facility] facility Pt demonstrated understanding Emily Armstrong RN [facility]07-15-2024 Miscellaneous Notes* Telephone Encounter - Emily [...] orders, Emily Hi RN documented in this encounterOur Lady Of Mercy Hospital07-11-2024 Telephone encounter Note * Telephone Encounter - Emily Armstrong RN - 05/17/2024 3:56 PM EDT ----- Message from Halima Nixon MD sent at 05/17/2024 1:24 PM EDT ----- This patient needs RUQ US and HCV RNA ND Dr. Nixon, Please review and sign orders, Thanks, Emily Armstrong, RN [facility]05-24-2024 Instructions* Patient Instructions* Svetlana Rdz - 03/30/2024 2:[address] Chest with labs in 3 months RTC 1 week after to review documented in this encounterOur Lady Of Mercy Hospital05-24-2024 History of Present illness Narrative* Wyatt Garza MD - 03/30/2024 2:45 PM EDT Images from the original note were not included. NAME: Carson Morse CLINIC NO.: [id number] DATE OF SERVICE: March 30, 2024 (Mirian) [...] organ systems. 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 Wyatt Garza MD, CPE Hematology and Oncology Services Provided at: [facility], [place], [place] Scribe Attestation: This note was scribed by Svetlana Rdz on March 30, 2024 under the direction and supervision of Dr. Wytat Garza. I attest that all of the information documented is correct to the best of my knowledge. Provider Attestation: I, Wyatt Garza MD, attest that all information documented by the above scribe is correct, and was supervised by me and under my direction. CC: Elba De La Cruz MD [address] [facility] [address] Halima Nixon MD documented in this encounterOur Lady Of Mercy Hospital05-24-2024 NoteHNO ID: [id number] Author: WYATT GARZA MD Service: ? Author Type: Physician Type: Progress Notes Filed: 04/01/2024 09:31 Note Text: NAME: Carson Morse CLINIC NO.: [id number] DATE OF SERVICE: March 30, 2024 (Mirian) [...] PATIENT PRESENTS WITH AN IMPLANTABLE OR ATTACHED MECHANICAL FACILITIES TECHNICIAN: No CREATININE: Creatinine Date Value Ref Range [...] contrast PATIENT DISCHARGED TO: Ambulatory patient, left IN department area. A Diagnostic radioactive procedure has taken place, with no further precautions necessary other than routine body substance precautions. More information regarding radiation safety can be found usingthis link: [email or web address]%[email or web address]%20Medicine%[email or web address] SIGNATURE: RT Terry(Porter) PATIENT NAME: Carson Morse DATE: March 23, 2024 TIME: 9:22 AM PAGER/CONTACT #: documented in this encounterOur Lady Of Mercy Hospital05-17-2024 NoteHNO ID: [id number] Author: SONJA MELGAR RT(R) Service: ? Author [...] PATIENT PRESENTS WITH AN IMPLANTABLE OR ATTACHED MECHANICAL FACILITIES TECHNICIAN: No CREATININE: Creatinine Date Value Ref Range [...] contrast PATIENT DISCHARGED TO: Ambulatory patient, left IN department area. A Diagnostic radioactive procedure has taken place, with no further precautions necessary other than routine body substance precautions. More information regarding radiation safety can be found using this link: [email or web address] 20Diagnostic%20Nuclear%20Medicine%20Procedures.pdf SIGNATURE: RT Terry(R) PATIENT NAME: Carson Morse DATE: March 23, 2024 TIME: 9:22 AM PAGER/CONTACT #:[facility]02-12-2024 Miscellaneous Notes* Telephone Encounter - Zeny Tom RN - 12/19/2023 12:17 PM EST Pt informed of [employer]'s message and denies any questions, needs or concerns at this time.(Pt had appt today with Frankie and discussed) Appointments verified. Zney Tom RN * Telephone Encounter - Zeny Tom RN - 12/19/2023 12:17 PM EST ----- Message from Wyatt Garza MD sent at 12/17/2023 8:59 AM EST ----- Scans are stable - I will discuss at his appointment. documented in this encounterOur Lady Of Mercy Hospital02-12-2024 Instructions* Patient Instructions* Svetlana Rdz - 12/19/2023 10:[address] Chest in 6 weeks RTC 1 week after to review If CT Chest clear then pursue routine annual visits documented in this encounterOur Lady Of Mercy Hospital02-12-2024 History of Present illness Narrative* Wyatt Garza MD - 12/19/2023 10:30 AM EST Images from the original note were not included. NAME: Carson Morse CLINIC NO.: [id number] DATE OF SERVICE: December 19, 2023 (Mirian) [...] organ systems. 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 Updated Visit, June 19, 2020: [...] which included preparing to see the patient, kjqk-vp-qkjh patient care, completing clinical documentation, performing a medically appropriate examination, counseling and educating the patient/family/caregiver, ordering medications, tests, or procedures, independently interpreting results (not separately reported), communicating results to the patient/family/caregiver, and care coordination (not separately reported). Wyatt Garza MD, CPE Hematology and Oncology Services Provided at: [facility], [place], [place] Scribe Attestation: This note was scribed by Svetlana Rdz on December 19, 2023 under the direction and supervisionof Dr. Waytt Garza. I attest that all of the information documented is correct to the best of my knowledge. Provider Attestation: I, Wyatt Garza MD, attest that all information documented by the above scribe is correct, and was supervised by me and under my direction. CC: Elba De La Cruz MD [address] [facility] [address] Halima Nixon MD documented in this encounterOur Lady Of Mercy Hospital02-09-2024 History of Present illness Narrative* Roxann [...] 16, 2023 10:54 AM documented in this encounterOur Lady Of Mercy Hospital02-21-2023 NotePROCEDURE: XR ANKLE RT MIN 3 [...] Electronically authenticated by: DARRELL SPRING Date: 2022-12-28 07:42[facility]02-09-2023 Instructions* Patient Instructions* Wyatt Garza MD - 12/16/2022 11:[address] Neck Chest in 12 months labs same day Labs in 1 year with scans include CBC, CMP RTC in 12 months with me to review Patient to continue follow up with Dr. Leon RAWLS documented in this encounterOur Lady Of Mercy Hospital02-09-2023 History of Present illness Narrative* Wyatt Garza MD - 12/16/2022 11:18 AM EST Images from the original note were not included. NAME: Carson Morse CLINIC NO.: [id number] DATE OF SERVICE: December 17, 2021 Some [...] organ systems. 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 Wyatt Garza MD, [place], [place] CC: Wyatt Garza MD [address] [place] [address] [place] [address] Elba De La Cruz MD [address] [facility] [address] Halima Nixon MD documented in this encounterOur Lady Of Mercy Hospital02-08-2023 History of Present illness Narrative* Jazmine [...] 15, 2022 9:40 AM documented in this encounterOur Lady Of Mercy Hospital09-09-2022 History of Present illness Narrative* Bhavya Cohen RPh - 07/16/2022 1:59 PM EDT Medication(s): Epclusa Total duration of treatment: 12 weeks Estimated Start Date: 01/23 Estimated Completion Date: 04/17 Estimated SVR 07/10/22 Due for SVR12 lab at this time. Bhavya Cohen RPh Clinical Pharmacist, Hepatology and Biologics [facility] P: ; F: Pool: P CC SPEC GROUP 2 ([id number]) documented in this encounterOur Lady Of Mercy Hospital08-11-2022 History of Present illness Narrative* G [...] MD cc: Elba De La Cruz MD [address] [place] [address] Timmis documented in this encounterOur Lady Of Mercy Hospital08-03-2022 Miscellaneous Notes* Telephone Encounter - Tory Self RN - 06/09/2022 1:32 PM EDT Please sign pended labs for upcoming visit. Tory Self RN documented in this encounterOur Lady Of Mercy Hospital06-09-2022 History of Present illness Narrative* Ruddy Gaffney - 04/15/2022 2:39 PM EDT [facility] Visit Assessment - Hepatology: [...] provider regarding future tests. Ruddy Gaffney CPhT [facility] documented in this encounterOur Lady Of Mercy Hospital05-31-2022 Hospital Discharge instructions Patient Education 04/06/2022 [...] Follow these instructions at home: Medicines Take dove-ijy-nqoahzw and prescription medicines only as told by [...] or the blood stops without treatment. Take qupx-ppv-vpsatbv and prescription medicines only as told by your health care provider. Drink enough fluid to keep your urine clear or pale yellow. This information is not intended to replace advice given to you by your health care provider. Make sure you discuss any questions you have with your health care provider. Document Released: 10/24/2006 Document Revised: 03/19/2020 Document Reviewed: 11/26/2017 [employer] Patient Education 2019 [employer]. Follow Up Care 08/27/2021 11:36:33 With:Herve Flores MD, Sushil Degroot URO Address: [facility] [address] , [place] [address]- When:04/06/2023 Comments:w/fátima [facility] 05-16-2022 Miscellaneous Notes* Telephone Encounter - [...] RNA in 3 months documented in this encounterOur Lady Of Mercy Hospital05-05-2022 History of Present illness Narrative* Ruddy [...] Will proceed with refill with no changes. [facility] Assessment - Hepatology: Is pre-assessment?: No Is initial or refill assessment?: Yes Assessment to use: Refill Non-Clinical Assessment: Patient confirmed: Yes Med/dose confirmed: Yes Supplies needed: N/A Missed doses: No Estimated days supply on hand: 10 Next cycle/dose due: 03/12/2022 Copay amount: 0 Payment confirmed: Yes Address confirmed: Yes Delivery method: FedEx Delivery address: [address] [place] [address] Delivery date: 03/15/2022 Patient has questions: No [...] if on ribavirin: N/A Ruddy Gaffney CPhT [place] Operator, Inflammatory & Neurology [facility] documented in this encounterOur Lady Of Mercy Hospital04-07-2022 History of Present illness Narrative* Ruddy Gaffney - 02/11/2022 1:31 PM EDT [facility] Special[facility] Refill Assessment Medication(s): Epclusa (2 of 3) Total duration of treatment: 12 weeks Estimated Start Date: 01/23 Estimated Completion Date: 04/17 Estimated SVR 07/10/22 Labs have been ordered but not yet collected. Goal remains to complete full treatment. Unable to assess compliance although patient does not report missed doses. Bhavya Cohen RPh Clinical Pharmacist, Hepatology and Biologics [facility] P: ; F: Pool: P CC SPEC GROUP 2 ([id number]) Therapy continues to be appropriate for disease, patient response, and medical condition. Verification of therapeutic benefit and effectiveness with current therapy. Adverse events, barriers in adherence, and side effects assessed and addressed. Will proceed with refill with no changes. [facility] Visit Assessment - Hepatology: Is pre-assessment?: No Is initial or refill assessment?: Yes Assessment to use: Refill Non-Clinical Assessment: Patient confirmed: Yes Med/dose confirmed: Yes Supplies needed: N/A Missed doses: No Estimated days supply on hand: 8 Next cycle/dose due: 02/12/2022 Copay amount: 0 Payment confirmed: Yes Address confirmed: Yes Delivery method: FedEx Delivery address: [address] [place] [address] Delivery date: 02/15/2022 Patient has questions: No Refill Assessment: Concurrent med therapy screening: Yes Adverse reactions and mitigation: Yes Hepatitis C RNA level at 12 weeks after end of therapy with additional testing as clinically indicated: Yes Hepatic function panel, eGFR: Yes CBC after 2 weeks if on ribavirin: N/A Ruddy Gaffney documented in this encounterOur Lady Of Mercy Hospital03-24-2022 Miscellaneous Notes* Telephone Encounter - Raquel [...] this encounter. Bhavya Hi documented in this encounterOur Lady Of Mercy Hospital02-09-2022 History of Present illness Narrative* Jazmine [...] 16, 2021 8:33 AM documented in this encounterOur Lady Of Mercy HospitalEvaluation + Plan note Future Appointments Appointment Date:04/12/2023 08:00:00 AM Scheduled Provider:Sushil Edgar Jr., MD Location:[facility] Appointment Type:URO Office Visit Diagnostic Tests Pending * PSA Total 04/06/22 [facility] evaluation note* Diagnosis Hepatitis C antibody positive in blood- Primary documented in this encounter [facility]* Diagnosis Chronic hepatitis C without hepatic coma (HCC)- Primary Chronic hepatitis C without mention of hepatic coma [facility] [place] [facility]* Diagnosis Effects of radiation, sequela- Primary documented [facility] this [facility] [place] [facility]* Diagnosis Effects of radiation, sequela- Primary Head and neck cancer (HCC) Malignant neoplasm of head, face, and neck documented [facility] [place] [facility]* Diagnosis Chronic hepatitis C with hepatic coma (HCC)- Primary Chronic hepatitis C with hepatic coma documented [facility] this [facility] [place] [facility]* Diagnosis Malignant neoplasm of head, 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, face, and neck Lung nodules Other nonspecific abnormal finding of lung field Disorder of thyroid Unspecified disorder of thyroid documented [facility] this encounter [facility] [place] [facility]* Diagnosis Localized enlarged lymph nodes- Primary Enlargement of lymph nodes Severe protein-calorie malnutrition (HCC) Other severe protein-calorie malnutrition Malignant neoplasm of head, 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, face, and neck History of head and neck cancer documented in this encounter [facility] [place] [facility]* Diagnosis History of head and neck cancer- Primary Lung nodules Other nonspecific abnormal finding of lung field documented [facility] this encounter [facility] [place] [facility]* Diagnosis Chronic hepatitis C without hepatic coma (HCC)- Primary Chronic hepatitis C without mention of hepatic coma Abnormal LFTs Other abnormal blood chemistry documented [facility] this encounter [facility] [place] [facility]* Diagnosis Chronic hepatitis C without hepatic coma (HCC)- Primary Chronic hepatitis C without mention of hepatic coma documented [facility] this encounter [facility] [place] [facility]* Diagnosis Abnormal LFTs Other abnormal blood chemistry Chronic hepatitis C without hepatic coma (HCC) Chronic hepatitis C without mention of hepatic coma [facility]* Diagnosis Fatty liver- Primary Other chronic nonalcoholic liver disease [facility]* Diagnosis History of head and neck cancer- Primary Lung nodules Other nonspecific abnormal finding of lung field documented [facility] this [facility] [place] [facility]* Diagnosis History of head and neck cancer Lung nodules Other nonspecific abnormal finding of lung field [facility]* Diagnosis Localized enlarged lymph nodes Enlargement of lymph nodes History of head and neck cancer documented in this encounter [facility] [place] [facility]* Diagnosis Lung nodules Other nonspecific abnormal finding of lung field documented in this encounter [facility]* Diagnosis Malignant neoplasm of head, 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, face, and neck Lung nodules Other nonspecific abnormal finding of lung field Disorder of thyroid Unspecified disorder of thyroid documented in this encounter [facility]* Diagnosis Sensorineural hearing loss (SNHL) of both ears- Primary documented in [facility] encounter [facility]* Diagnosis 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, unspecified site documented in this encounter [facility]* Diagnosis Sensorineural hearing loss (SNHL) of both ears- Primary documented in this encounter [facility]* Diagnosis History of head and neck cancer Lung nodules Other nonspecific abnormal finding of lung field Fatty liver Other chronic nonalcoholic liver disease documented in this encounter [facility] [place] [facility]* Diagnosis History of head and neck cancer- Primary Lung nodules Other nonspecific abnormal finding of lung field documented in this encounter [facility] [place] [facility]* Diagnosis Non-seasonal allergic rhinitis due to other allergic trigger- Primary Chronic sinusitis, unspecified location Tongue cancer (HCC) Malignant neoplasm of tongue, unspecified site Bilateral impacted cerumen Impacted cerumen documented in this encounter [facility] Healthcare[facility]ospital course Narrative No data available for this section [facility] reason for referral (narrative)* Diagnostic Procedure Only (Routine) - AuthorizedSpecialtyDiagnoses / ProceduresReferred By Contact Referred To [facility] Diagnoses Abnormal LFTs Chronic hepatitis C without hepatic coma (HCC) Procedures US ABD RIGHT UPPER QUADRANT US ABDOMINAL REAL [place] W/[place] [address] [place] [address] [place] [address] Referral IDStatusReasonStart DateExpiration DateVisits RequestedVisits [id number] Auto-Generated Referral / [facility] for referral (narrative)* Diagnostic Procedure Only (Routine) - ClosedSpecialtyDiagnoses / ProceduresReferred By ContactReferred To [facility]US IMAG[facility] Diagnoses Abnormal LFTs Chronic hepatitis C without hepatic coma (HCC) Procedures US ABD RIGHT UPPER QUADRANT US ABDOMINAL REAL TIME W/IMAGE LIMITED Halima Nixon [place] [id number] [place] [phone] [place] [address] Referral IDStatusReasonStart DateExpiration DateVisits RequestedVisits [id number] Auto-Generated Referral / [facility] (narrative)* Outpatient Procedure (Routine) - New RequestSpecialtyDiagnoses / ProceduresReferred By ContactReferred To [facility] Diagnoses Fatty liver Procedures DDI VIBRATION CONTROLLED TRANSIENT ELASTOGRAPHY (VCTE) LIVER ELASTOGRAPHY W/O IMAG W/I&R Halima Nixon [place] [id number] [place] [phone] [facility] [place] [address] [place], [place] [id number] Referral IDStatusReasonStart DateExpiration DateVisits RequestedVisits [id number] Request Auto-Generated Referral / * Diagnostic Procedure Only (Routine) - New RequestSpecialtyDiagnoses / ProceduresReferred By ContactReferred To [facility]AG[facility] Diagnoses Fatty liver Procedures US ABD RIGHT UPPER QUADRANT US ABDOMINAL REAL TIME W/[place] [address] [place] [address] [place] [address] Referral IDStatusReasonStart DateExpiration DateVisits RequestedVisits [id number] Request Auto-Generated Referral / [facility] Summary Purpose Family History No Family [...] COMPUTED TOMOGRAPHY THORAX W/CONTRAST Wyatt Garza MD [address] [place] [address] [address] [place] [id number] [place] [address] Referral IDStatusReasonStart DateExpiration DateVisits RequestedVisits [id number] Auto-Generated Referral [id number] / ProceduresReferred By ContactReferred To ContactCT IMAGING Diagnoses Malignant neoplasm of head, face and neck (HCC) Lung nodules Procedures CT NECK SOFT TISSUE W IVCON CT SOFT TISSUE NECK W/CONTRAST MATERIAL Wyatt Garza MD [address] [place] [address] [address] [place], [facility] [place] [address] Referral IDStatusReasonStart DateExpiration DateVisits RequestedVisits [id number] Auto-Generated Referral [id number] / ProceduresReferred By ContactReferred To ContactCT IMAGING Diagnoses History of head and neck cancer Lung nodules Procedures CT CHEST W IVCON DIAGNOSTIC COMPUTED TOMOGRAPHY THORAX W/CONTRAST Wyatt Garza MD [address] [place] [address] [place] [address] [place] [address] Referral IDStatusReasonStart DateExpiration DateVisits RequestedVisits [id number] Auto-Generated Referral [id number] / ProceduresReferred By ContactReferred To ContactCT IMAGING Diagnoses Localized enlarged lymph nodes History of head and neck cancer Procedures CT CHEST W IVCON DIAGNOSTIC COMPUTED TOMOGRAPHY THORAX W/CONTRAST Abhyankar, Wyatt, MD [address] [facility] [place] [address] [place] [address] Referral IDStatusReasonStart DateExpiration DateVisits RequestedVisits [id number] Auto-Generated Referral [id number] / ProceduresReferred By ContactReferred To ContactCT IMAGING Diagnoses Lung nodules Procedures CT NECK SOFT TISSUE W IVCON CT SOFT TISSUE NECK W/CONTRAST MATERIAL Wyatt Garza MD [address] [place] [place] [address] Ct Imaging Referral IDStatusReasonStart DateExpiration DateVisits RequestedVisits [id number] Auto-Generated Referral [id number] / ProceduresReferred By ContactReferred To ContactCT IMAGING Diagnoses Lung nodules Procedures CT CHEST W IVCON DIAGNOSTIC COMPUTED TOMOGRAPHY THORAX W/CONTRAST Wyatt Garza MD [address] [place] [address] Ct Imaging Referral IDStatusReasonStart DateExpiration DateVisits RequestedVisits [id number] Auto-Generated Referral [id number] / ProceduresReferred By ContactReferred To ContactCT IMAGING Diagnoses Effects of radiation, sequela Head and neck cancer (HCC) Procedures CT CHEST WO IVCON DIAGNOSTIC COMPUTED TOMOGRAPHY THORAX W/O Marleni Calhoun MD [address] [facility] [place] [address] Ct Imaging Referral IDStatusReasonStart DateExpiration DateVisits RequestedVisits [id number] Review Auto-Generated Referral Additional Source Comments (unrecognized sect ion and content) No Status Records FoundNo Status Records FoundNo Status Records FoundNo Status Records FoundNo Status Records Found INFORMATION SOURCE (unrecogn ized section and content) DATE CREATED AUTHOR 03/20/2019 [facility] DATE CREATED AUTHOR AUTHOR'S ORGANIZ ATION 03/07/2023 [facility] DATE CREATED AUTHOR AUTHOR'S ORGANIZ ATION 03/17/2023 [facility] DATE CREATED AUTHOR AUTHOR'S ORGANIZ ATION 02/02/2025 [facility] DATE CREATED AUTHOR AUTHOR'S ORGANIZ ATION 08/30/2025 [facility] EPIC Source Comments (unrecognize d section and content) In the event this informatio n is protected by the Federal Confidentiality of Alcohol and Drug Abuse Patient Records regulations: The Federal rules restrict any use of the information to criminally investigate or prosecute any alcohol or drug abuse patient.[facility] HospitalIn the event this information is protected by the Federal Confidentiality of Alcohol and Drug Abuse Patient Records regulations: The Federal rules restrict any use of the information to criminally investigate or prosecute any alcohol or drug abuse patient.[facility] HospitalIn the event this information is protected by the Federal Confidentiality of Alcohol and Drug Abuse Patient Records regulations: The Federal rules restrict any use of the information to criminally investigate or prosecute any alcohol or drug abuse patient.[facility] HospitalIn the event this information is protected by the Federal Confidentiality of Alcohol and Drug Abuse Patient Records regulations: The Federal rules restrict any use of the information to criminally investigate or prosecute any alcohol or drug abuse patient.[facility] HospitalIn the event this information is protected by the Federal Confidentiality of Alcohol and Drug Abuse Patient Records regulations: The Federal rules restrict any use of the information to criminally investigate or prosecute any alcohol or drug abuse patient.[facility] HospitalIn the event this information is protected by the Federal Confidentiality of Alcohol and Drug Abuse Patient Records regulations: The Federal rules restrict any use of the information to criminally investigate or prosecute any alcohol or drug abuse patient.[facility] HospitalIn the event this information is protected by the Federal Confidentiality of Alcohol and Drug Abuse Patient Records regulations: The Federal rules restrict any use of the information to criminally investigate or prosecute any alcohol or drug abuse patient.[facility] HospitalIn the event this information is protected by the Federal Confidentiality of Alcohol and Drug Abuse Patient Records regulations: The Federal rules restrict any use of the information to criminally investigate or prosecute any alcohol or drug abuse patient.[facility] HospitalIn the event this information is protected by the Federal Confidentiality of Alcohol and Drug Abuse Patient Records regulations: The Federal rules restrict any use of the information to criminally investigate or prosecute any alcohol or drug abuse patient.[facility] HospitalIn the event this information is protected by the Federal Confidentiality of Alcohol and Drug Abuse Patient Records regulations: The Federal rules restrict any use of the information to criminally investigate or prosecute any alcohol or drug abuse patient.[facility] HospitalIn the event this information is protected by the Federal Confidentiality of Alcohol and Drug Abuse Patient Records regulations: The Federal rules restrict any use of the information to criminally investigate or prosecute any alcohol or drug abuse patient.[facility] HospitalIn the event this information is protected by the Federal Confidentiality of Alcohol and Drug Abuse Patient Records regulations: The Federal rules restrict any use of the information to criminally investigate or prosecute any alcohol or drug abuse patient.[facility] HospitalIn the event this information is protected by the Federal Confidentiality of Alcohol and Drug Abuse Patient Records regulations: The Federal rules restrict any use of the information to criminally investigate or prosecute any alcohol or drug abuse patient.[facility] HospitalIn the event this information is protected by the Federal Confidentiality of Alcohol and Drug Abuse Patient Records regulations: The Federal rules restrict any use of the information to criminally investigate or prosecute any alcohol or drug abuse patient.[facility] HospitalIn the event this information is protected by the Federal Confidentiality of Alcohol and Drug Abuse Patient Records regulations: The Federal rules restrict any use of the information to criminally investigate or prosecute any alcohol or drug abuse patient.[facility] HospitalIn the event this information is protected by the Federal Confidentiality of Alcohol and Drug Abuse Patient Records regulations: The Federal rules restrict any use of the information to criminally investigate or prosecute any alcohol or drug abuse patient.[facility] HospitalIn the event this information is protected by the Federal Confidentiality of Alcohol and Drug Abuse Patient Records regulations: The Federal rules restrict any use of the information to criminally investigate or prosecute any alcohol or drug abuse patient.[facility] HospitalIn the event this information is protected by the Federal Confidentiality of Alcohol and Drug Abuse Patient Records regulations: The Federal rules restrict any use of the information to criminally investigate or prosecute any alcohol or drug abuse patient.[facility] HospitalIn the event this information is protected by the Federal Confidentiality of Alcohol and Drug Abuse Patient Records regulations: The Federal rules restrict any use of the information to criminally investigate or prosecute any alcohol or drug abuse patient.[facility] HospitalIn the event this information is protected by the Federal Confidentiality of Alcohol and Drug Abuse Patient Records regulations: The Federal rules restrict any use of the information to criminally investigate or prosecute any alcohol or drug abuse patient.[facility] HospitalIn the event this information is protected by the Federal Confidentiality of Alcohol and Drug Abuse Patient Records regulations: The Federal rules restrict any use of the information to criminally investigate or prosecute any alcohol or drug abuse patient.[facility] HospitalIn the event this information is protected by the Federal Confidentiality of Alcohol and Drug Abuse Patient Records regulations: The Federal rules restrict any use of the information to criminally investigate or prosecute any alcohol or drug abuse patient.[facility] HospitalIn the event this information is protected by the Federal Confidentiality of Alcohol and Drug Abuse Patient Records regulations: The Federal rules restrict any use of the information to criminally investigate or prosecute any alcohol or drug abuse patient.[facility] HospitalIn the event this information is protected by the Federal Confidentiality of Alcohol and Drug Abuse Patient Records regulations: The Federal rules restrict any use of the information to criminally investigate or prosecute any alcohol or drug abuse patient.[facility] HospitalIn the event this information is protected by the Federal Confidentiality of Alcohol and Drug Abuse Patient Records regulations: The Federal rules restrict any use of the information to criminally investigate or prosecute any alcohol or drug abuse patient.[facility] HospitalIn the event this information is protected by the Federal Confidentiality of Alcohol and Drug Abuse Patient Records regulations: The Federal rules restrict any use of the information to criminally investigate or prosecute any alcohol or drug abuse patient.[facility] HospitalIn the event this information is protected by the Federal Confidentiality of Alcohol and Drug Abuse Patient Records regulations: The Federal rules restrict any use of the information to criminally investigate or prosecute any alcohol or drug abuse patient.[facility] Reason for Visit (unrecogniz ed section and content) ReasonCommentsFollow UpReasonOnset DateCommentsSPP Hepatology - Medication Otrlbw2102/11/2022EpclusaReasonOnset DateComments[facility]at[facility] - Medication Xikvel1803/11/2022EpclusaReasonCommentsResultsReasonOnset Date[facility] - [facility]up04/15/2022Epclusa - End of TreatmentReasonCommentsLab OrdersReasonCommentsHead and Neck CancerReasonOnset Date[facility]-up07/16/2022Epclusa treatment completeReasonCommentsHead and Neck [...] 40-54 MIN EST PATIENT Wyatt Garza MD [address] [place] [address] [place] [address] Wyatt Garza MD [facility] [place] [address] Referral IDStatusReasonStart DateExpiration DateVisits RequestedVisits [id number]/[id number]/202140VjxyjwIbuqhmryIelx and Neck Cancer1 year follow upReasonCommentsRadiology USSpecialtyDiagnoses / ProceduresReferred By ContactReferred To ContactUS IMAGING Diagnoses Abnormal LFTs Chronic hepatitis C without hepatic coma (HCC) Procedures US ABD RIGHT UPPER QUADRANT US ABDOMINAL REAL TIME W/[place] [address] [place] [address] [place] [address] Referral IDStatusReasonStpunxsutawney DateExpiration DateVisits RequestedVisits [id number] Auto-Generated Referral /[id number] and Neck Cancer3 month follow upReason CommentsRadiology CTSpecialtyDiagnoses / ProceduresReferred By ContactReferred To ContactCT IMAGING Diagnoses History of head and neck cancer Lung nodules Procedures CT CHEST W IVCON DIAGNOSTIC COMPUTED TOMOGRAPHY THORAX W/CONTRAST Wyatt Garza MD [address] [place] [address] Ct Imaging [facility] Referral IDStatusReasonStpunxsutawney DateExpiration DateVisits RequestedVisits [id number] Auto-Generated Referral /[id number] / ProceduresReferred By ContactReferred To ContactCT IMAGING Diagnoses Localized enlarged lymph nodes History of head and neck cancer Procedures CT CHEST W IVCON DIAGNOSTIC COMPUTED TOMOGRAPHY THORAX W/CONTRAST Wyatt Garza MD [address] [place] [address] Ct Imaging [facility] Referral IDStatusReasonStpunxsutaw[place] DateExpiration DateVisits RequestedVisits [id number] Auto-Generated Referral /[id number] CTSpecialtyDiagnoses / Procedures Referred By ContactReferred To ContactCT IMAGING Diagnoses Lung nodules Procedures CT NECK SOFT TISSUE W IVCON CT SOFT TISSUE NECK W/CONTRAST MATERIAL Wyatt Garza MD [address] [place] [address] [place] [address] Referral IDStatusReasonStart DateExpiration DateVisits RequestedVisits [id number] Auto-Generated Referral [id number] / ProceduresReferred By ContactReferred To ContactCT IMAGING Diagnoses Malignant neoplasm of head, face and neck (HCC) Lung nodules Procedures CT NECK SOFT TISSUE W IVCON CT SOFT TISSUE NECK W/CONTRAST MATERIAL Wyatt Garza MD [address] [place] [address] [place] [address] Ct [facility] [place] [address] Referral IDStatusReasonStart DateExpiration DateVisits RequestedVisits [id number] Auto-Generated Referral [id number] CTSpecialtyDiagnoses / Procedures Referred By ContactReferred To ContactCT IMAGING Diagnoses Lung nodules Procedures CT CHEST W IVCON CAT SCAN OF CHEST CONTRAST Wyatt Garza MD [address] [place] [address] [place] [address] Ct Imaging [place] [address] Referral IDStatusReasonStpunxsutaw[place] DateExpiration DateVisits RequestedVisits [id number] Auto-Generated Referral /[id number] yr cancer checkSpecialtyDiagnoses / ProceduresReferred By ContactReferred To ContactCT IMAGING Diagnoses History of head and neck cancer Lung nodules Procedures CT NECK SOFT TISSUE W IVCON CT SOFT TISSUE NECK W/CONTRAST MATERIAL Wyatt Garza MD [address] [place] [address] [place] [address] Phone: tel: fax: [facility] [place] [address] Referral IDStatusReasonStpunxsutawney DateExpiration DateVisits RequestedVisits [id number] Auto-Generated Referral /[id number] Up Tests ResultsLabs---->needs US, Fibroscan and OVReasonCommentsThroat ProblemThroat and ear clogged Care Teams (unrecognized sec tion and content) Team MemberRelationshipSpecialtyStart DateEnd Date Elba De La Cruz MD [address] [place] [address] PCP - GeneralFamily Practice01/04/18Team MemberRelationshipSpecialtyStart DateEnd Date Elba De La Cruz MD [address] [place] [address] PCP - GeneralFamily Practice01/04/18Team MemberRelationshipSpecialtyStart DateEnd Date Elba De La Cruz MD [address] [place] [address] PCP - GeneralFamily Practice01/04/18Team MemberRelationshipSpecialtyStart DateEnd Date Elba De La Cruz MD [address] [place] [address] PCP - GeneralFamily Practice01/04/18Team MemberRelationshipSpecialtyStart DateEnd Date Elba De La Cruz MD [address] [place] [address] PCP - GeneralFamily Medicine01/04/18Team MemberRelationshipSpecialtyStart DateEnd Date Elba De La Cruz MD [address] [place] [address] PCP - GeneralFamily Medicine01/04/18Team MemberRelationshipSpecialtyStart DateEnd Date [...] Elba De La Cruz MD [address] [place] [address] PCP - GeneralFamily Medicine03/15/23am MemberRelationshipSpecialtyStart DateEnd Date Elba De La Cruz MD [address] [place] [address] PCP - GeneralFamily Medicine03/15/23Team MemberRelationshipSpecialtyStart DateEnd Date Elba De La Cruz MD [address] [facility] [place] [address] PCP - GeneralFamily Medicine03/15/23Team MemberRelationshipSpecialtyStart DateEnd Date Elba De La Cruz MD [address] [facility] [place] [address] PCP - GeneralFamily Medicine03/15/23Team MemberRelationshipSpecialtyStart DateEnd Date Elba De La Cruz MD PCP - GeneralFamily Medicine01/04/18Team MemberRelationshipSpecialtyStart DateEnd Date Elba De La Cruz MD PCP - GeneralFamily Medicine01/04/18Team MemberRelationshipSpecialtyStart DateEnd Date Elba De La Cruz MD PCP - GeneralFamily Medicine01/04/18Team MemberRelationshipSpecialtyStart DateEnd Date Elba De La Cruz MD [address] [facility] [place] [address] PCP - GeneralFamily Ohiphemf45/16/25Team MemberRelationshipSpecialtyStart Date End Date Elba De La Cruz MD [address] [facility] [place] [address] PCP - GeneralFamily Djgenhne90/16/25 FOR RECORDS PERTAINING TO PATIENTS WHO ARE [...] BE BASED ON THE PRIMARY CLINICAL RECORDS. [facility] [employer] [facility] provides no warranty or guarantee of the accuracy or completeness of information in this document.
--- OUTSIDE RECORDS SUMMARY | 2025-09-05 06:46 | XMS_ITS | CCD ---
Author Organization [facility] CliniSyok Care Team Providers Care Window [employer] M[employer] Name Role Phone Elba De La Cruz Primary Care Unavailable Jen Qureshi Admitting Unavailable Jen Qureshi Attending Unavailable Elba De La Cruz MD Primary Care Provider Elba De La Cruz Primary Care Physician Elba De La Cruz MD Primary Care Provider Elba De La Cruz MD Primary Care Provider Elba De La Cruz MD Primary Care Provider [phone] DOR[address] ., DR ARREOLA Primary Care [...] De La Cruz MD Primary Care Provider [phone] ABRAM FIORE Attending Unavailable Medications Current Medications [...] 100 mg oral tablet (2 sources)Azole AntifungalStart: 74-10-5101Fqwckhmw 100 MG tablet 1 (one) time each day at the same time 08/21/2025 Activeiv contrast (will be provided with radiology test) (9 sources)Start: 01-21-2025 End: 45-12-0901hoxcqn 1 dose intravenously once, then inject 1 [...] 1 Each 01/21/2025 01/21/2025 ActiveStart: 01-21-2025 End: 69-27-3782lh contrast (will be provided with radiology test) [...] 1 Each 01/21/2025 01/22/2025 ActiveStart: 06-29-2024 End: 65-50-8206xzdhwv 1 dose intravenously once, then inject 1 [...] 1 Each 06/29/2024 06/29/2024 ExpiredStart: 06-29-2024 End: 64-54-6468es contrast (will be provided with radiology test) [...] 1 Each 06/29/2024 06/30/2024 ExpiredStart: 03-30-2024 End: 66-82-8746lj contrast (will be provided with radiology test) [...] Each 0 03/30/2024 03/31/2024 ExpiredStart: 12-19-2023 End: 56-80-4546ry contrast (will be provided with radiology test) [...] Each 0 12/19/2023 12/20/2023 ActiveStart: 12-16-2022 End: 37-66-6251th contrast (will be provided with radiology test) [...] Each 0 12/16/2022 12/17/2022 ActiveStart: 12-16-2022 End: 80-15-5408pwczpb 1 dose intravenously once, then inject 1 [...] 1 capsule by mouth in the morning. Wcyqzx84 hr nicotine 0.875 mg/hr transdermal system (10 [...] ActivepredniSONE 10 mg oral tablet (2 sources)Start: 27-64-2227heypmkSARG (Deltasone) 10 MG tablet 5 TABS DAILY X3 DAYS, 4 TABS X3 DAYS, 3 TABS X3 DAYS, 2 TABS X3DAYS, 1 TAB X3 DAYS, 1/2 TAB X4 DAYS 07/23/2025 Activesofosbuvir 400 mg / velpatasvir 100 mg oral tablet (5 sources)Hepatitis C Virus NS5A Inhibitor, Hepatitis C Virus Nucleotide Analog NS5B Polymerase InhibitorStart: 12-30-2021 End: 69-95-2139yemj 1 tablet by mouth once dailyEpclusa 400 mg-100 mg oral tablet tab(s), Oral, Daily, Refills(s) 0 Start Date: 04/06/22 Status: Ordered Comment on above:Take 1 tablet by mouth once daily.tamsulosin hydrochloride 0.4 mg oral capsule (14 sources)alpha-Adrenergic BlockerStart: 12-66-0343dypg 1 capsule by mouth oncetamsulosin (FLOMAX) 0.4 [...] (6 sources)Alcohol abuse; Translations: [Alcohol abuse, uncomplicated]Onset: 735022-77-9270SviihkeAmwyci of head and neck (20 sources)Malignant tumor of head and neck; Translations: [Malignant neoplasm of head, face and neck]Onset: 345833-21-7341WduchhaPvacbq; other and unspecified primary (10 sources)History of malignant neoplasm of head and/or neck; Translations: [Personal history of malignant neoplasm of other organs and systems]12-19-2023 EpisodicChronic obstructive pulmonary disease and bronchiectasis (2 sources)Chronic obstructive lung disease; Translations: [Chronic obstructive pulmonary disease, unspecified]Onset: 460443-10-9434TqkuqjiQrqmaxyfdu and other anemia (1 source)Deficiency and other anemia; Translations: [D64.9 - Anemia, unspecified]Onset: 00-62-1766Nsomisdm of white blood cells (2 sources)Leukocytosis; Translations: [Elevated white blood cell count, unspecified]Onset: 445186-07-4173PjjybbaQcbenfpfh hypertension (10 sources)Hypertensive disorder; Translations: [Essential (primary) hypertension]Onset: 100423-71-9751SbabfntRjjcalgp of lower limb (7 sources)Other fracture of upper and lower end of right fibula, initial encounter for closed fracture; Translations: [Closed fracture of ankle]Onset: 730872-00-3138WvnllzovDomzjabqf (8 sources)Chronic hepatitis C; Translations: [Chronic viral hepatitis C]Onset: 27-98-5389YwwtvlpCwnhzjtyjcj of prostate (12 sources)Benign prostatic hypertrophy without outflow obstruction; Translations: [Benign prostatic hyperplasia without lower urinary tract symptoms]Onset: 00-92-4207AfhxgovWjvquckburdlh and screening for infectious disease (1 source)Hepatitis C antibody test positive; Translations: [Other specified abnormal immunological findings in serum]EpisodicNutritional deficiencies (20 sources)Deficiency of macronutrients; Translations: [Unspecified severe protein-calorie malnutrition]Onset: 110572-57-7995EcrsxyrEefbs connective tissue disease (2 sources)Recurrent falls ; Translations: [Repeated falls]Onset: 08-28-2025 01-36-8692CdgprssxTgweq ear and sense organ disorders (2 sources)Sensorineural hearing loss, bilateral; Translations: [Sensorineural hearing loss, bilateral]05-22-1545FklyqnsFiqvx ear and sense organ disorders (2 sources)Impacted cerumen of bilateral ears; Translations: [Impacted cerumen, bilateral]00-22-3836XlzlfpqsPuozr gastrointestinal disorders (2 sources)Diarrhea; Translations: [Diarrhea, unspecified]Onset: 08-28-2025 75-01-6376XgwhqlccAxhcd gastrointestinal disorders (2 sources)Dysphagia; Translations: [Dysphagia, unspecified]Onset: 08-28-2025 08-27-6346UhqovxdoAkreo gastrointestinal disorders (2 sources)Swallowing painful; Translations: [Dysphagia, unspecified]Onset: 934021-00-8012KfpizgtcOxrhp hematologic conditions (20 sources)Myelosuppression; Translations: [Other specified diseases of blood and blood-forming organs]Onset: 424267-53-6384MijeuqbDqyeo injuries and conditions due to external causes (2 sources)Radiation injury; Translations: [Radiation sickness, unspecified, sequela]EpisodicOther liver diseases (2 sources)Steatosis of liver; Translations: [Fatty (change of) liver, not elsewhere classified]98-57-5264EbtzyhmVtsts lower respiratory disease (2 sources)Solitary nodule of lung; Translations: [Solitary pulmonary nodule] Onset: 556680-39-1216YcjtxgfaEdxij male genital disorders (2 sources)Male erectile dysfunction, unspecified; Translations: [Impotence of organic origin]Onset: 480720-90-5887GxpxqhsChsfr nervous system disorders (2 sources)Abnormal gait; Translations: [Unsteadiness on feet]Onset: 08-28-2025 18-65-5654KhghmizbRwjza non-traumatic joint disorders (2 sources)Arthropathy associated with a neurological disorder; 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, unspecified site]Onset: 453489-41-5526XpedomrXpjsz non- traumatic joint disorders (4 sources)Pain in right ankle and joints of right foot; Translations: [PAIN IN RIGHT ANKLE]Onset: 39-19-6953OnhhpkksXwryn nutritional; endocrine; and metabolic disorders (10 sources)Porphyria cutanea tarda; 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] Onset: 722800-07-2022KxkrtprRfkfz upper respiratory disease (2 sources)Allergic rhinitis; Translations: [Other allergic rhinitis]08-28-2025 ChronicOther upper respiratory infections (2 sources)Chronic sinusitis; Translations: [Chronic sinusitis, unspecified] 17-59-8870JgcnnllPwluxyfnj by other medications and drugs (20 sources)Mucositis following radiation therapy; Translations: [Oral mucositis (ulcerative) due to radiation]Onset: 960507-42-1295PwqsytreVczcjxttk malignancies (20 sources)Metastatic squamous cell carcinoma; Translations: [Secondary malignant neoplasm of other specified sites]Onset: 891108-56-1787Bwiukfd Skull and face fractures (12 sources)Closed fracture of right maxilla; Translations: [Maxillary fracture, right side, initial encounter for closed fracture]Onset: 903991-59-6913 EpisodicSubstance-related disorders (13 sources)Smoker; Translations: [Nicotine dependence, unspecified, uncomplicated]Onset: 245584-45-6073DouhldxHehqxyu disorders (2 sources)Disorder of thyroid gland; Translations: [Disorder of thyroid, unspecified]Episodic Past or Other Problems Problem ClassificationProblemDateDocumented DateEpisodic/ChronicCancer of head and neck (11 sources)History of malignant neoplasm of tongue; Translations: [Personal history of malignant neoplasm of tongue]Onset: 06-21-2023 Resolved: 261302-16-0600ZkdsqtwcQqymuj; other and unspecified primary (1 source)Personal history of malignant neoplasm of other organs and systems; Translations: [History of head and neck cancer]Onset: 05-79-9168Sdbrfadh Genitourinary symptoms and ill-defined conditions (13 sources)Nocturia; Translations: [Nocturia]Onset: 04-06-2022 Resolved: 31-34-0564NiflpxjkHmukdyxjpnvbg (3 sources)Localized enlarged lymph nodes; Translations: [Localized enlarged lymph nodes]Onset: 361601-97-6398FzugepmmMpqbh lower respiratory disease (20 sources)Multiple nodules of lung; Translations: [Other nonspecific abnormal finding of lung field]Onset: 748062-30-9358ImdujrhgMwcum lower respiratory disease (1 source)Other nonspecific abnormal finding of lung field; Translations: [Lung nodules]Onset: 72-86-5292YypxvqowObzoc screening for suspected conditions (not mental disorders or infectious disease) (3 sources)Liver function tests abnormal; Translations: [Other specified abnormal findings of blood chemistry]Onset: 072781-56-7518WivyaguqSdnxk upper respiratory disease (20 sources)Hoarse; Translations: [Dysphonia]Onset: 449591-56-6122Tyakjfpc Results Test NameValueInterpretationReference RangeFacilityCNOVSPon 57-74-3812YCXQYI Visit (SP) Office (HEMASA) CARSON MORSE ([id number]) 1955 M Date Time Provider Department 01/21/25 [...] AM Signed NAME: Carson Morse CLINIC NO.: [id number] DATE OF SERVICE: January 21, 2025 (Mirian) [...] - CT N/Chest: Bilater (more content not included)...NormalCleveland Clinic Avon HospitalCNPNon 15-24-0252OGIIXnhvzzahq (GASTNO) CARSON MORSE ([id number]) 1955 Date Time Provider Department 01/18/25 HALIMA NIXON During your visit today, we recorded the following information about you: Mary Villarreal RN 01/18/2025 10:53 AM Signed Pt notified of results and recommendations and verbalized understanding. Schedulers, please call pt to schedule US, Fibroscan and OV. Orders are already placed. Thank you, NOLAN Meeks Noma, MD P [facility] Nurse Pool Normal AFP Patient is overdue [...] 12/18/2020 Encounter Status:Closed by IVETTE LALA on 01/18/25NormalCCommunity [facility] SerPl-mCncon 73-00-6121GHS [Mass/Vol]4.54 ng/mLNormal<9.00C[facility] Clinic Avon HospitalComment on above:Order Comment: Specimen Type: BLOOD SPECIMENOrdering Facility: [facility] Address:[address], [place] [address]Result Comment: The Alpha-Fetoprotein test was performed using the Uma Unicel DxI immunoenzymatic assay. Results obtained with different assay methods or kits cannot be used interchangeably.Performed By: #### 1834-1 ####[facility] LABCLIA [id number] [address] Auto Differential panel (Bld)on 02-10-2502Wyahvetnt (Bld) [#/Vol]0.09 10*3/uLNINFClinton Memorial Hospital Basophils/100 WBC (Bld)1.9 %[facility] HospitalDifferential cell count method Nom (Bld)AutoCleveland ClinicEosinophils (Bld) [#/Vol]0.11 10*3/uLNINFClinton Memorial HospitalEosinophils/100 WBC (Bld)2.4 %[facility] HospitalErythrocyte distribution width (RBC) [Ratio]12.2 %11.5 - 15.0 %[facility] HospitalHematocrit (Bld) [Volume fraction]31.6 %Low39.0 - 51.0 %[facility] HospitalHemoglobin (Bld) [Mass/Vol]10.6 g/dLLow13.0 - 17.0 g/dLClinton Memorial HospitalImmature granulocytes (Bld) [#/Vol]NINF [facility] HospitalImmature granulocytes/100 WBC (Bld)0.4 %[facility] Interpretation and review of laboratory resultsAbnormalCOhioHealth Hardin Memorial Hospital Lymphocytes (Bld) [#/Vol]0.96 10*3/uLLowClinton Memorial HospitalLymphocytes/100 WBC (Bld)20.7 %[facility]H (RBC) [Entitic mass]33.9 pg26.0 - 34.0 pg [facility] CincinnatiHC (RBC) [Mass/Vol]33.5 g/dL30.5 - 36.0 g/dLClinton Memorial Hospital MCV (RBC) [Entitic vol]101 tYNroe07.0 - 100.0 fLCleveland ClinicMonocytes (Bld) [#/Vol]0.38 10*3/uLNINFClinton Memorial HospitalMonocytes/100 WBC (Bld)8.2 %[facility] HospitalNeutrophils (Bld) [#/Vol]3.08 10*3/[facility] HospitalNeutrophils/100 WBC (Bld)66.4 %[facility] HospitalNucleated RBC (Bld) [#/Vol]NINFCOhioHealth Hardin Memorial Hospital Nucleated RBC/100 WBC (Bld) [Ratio]0 %/100 WBCClinton Memorial HospitalPlatelet mean volume (Bld) [Entitic vol]9.4 fL9.0 - 12.7 fLCOhioHealth Hardin Memorial HospitalPlatelets (Bld) [#/Vol]209 10*3/uLClinton Memorial HospitalRBC (Bld) [#/Vol]3.13 10*6/uLLow4.20 - 6.00 m/[facility] HospitalWBC (Bld) [#/Vol]4.64 10*3/uLUniversity Hospitals Health System ClinicBasophils (Bld) [#/Vol]0.09 10*3/uLNormal<0.11CGrand Lake Joint Township District [facility] Comment on above:Order Comment: Specimen Type: BLOOD SPECIMENOrdering Facility: [facility] Address:[address] [place] [address] Performed By: #### 56366-3 ####[facility]PITALIA [id number] [place], [place] [address]Zhvddpkrl/100 WBC (Bld)1.9 % NormalCleveland Clinic Avon HospitalComment on above:Order Comment: Specimen Type: BLOOD SPECIMENOrdering Facility: [facility] Address:[address] [place], [place] [address]Performed By: #### 96120-7 ####[facility] LABIA [id number] [place] [address] Differential cell count method Nom (Bld)AutoNormalCGrand Lake Joint Township District Memorial Hospital Comment on above:Order Comment: Specimen Type: BLOOD SPECIMENOrdering Facility: [facility] Address:[address] [place] [address] Performed By: #### 57256-5 ####[facility] LABIA [id number] [place], [place] [address]Dkmkkgxypkt (Bld) [#/Vol]0.11 10*3/uLNormal<0.46[facility] on above:Order Comment: Specimen Type: BLOOD SPECIMENOrdering Facility: [facility] Address:[address] [place], [place] [address]Performed By: #### 70333-3 ####[facility] LABCLIA [id number] [place], [place] [address]Vduomrzpjch/100 WBC (Bld)2.4 %NormalLicking Memorial Hospital on above:Order Comment: Specimen Type: BLOOD SPECIMENOrdering Facility: [facility] Address:[address] [place], [place] [address]Performed By: #### 26368-6 ####[facility] LABIA [id number] [place], [place] [address]Kolcpzhyaon distribution width (RBC) [Ratio]12.2 %Zwxgzr25.5-15.0[facility] on above: Order Comment: Specimen Type: BLOOD SPECIMENOrdering Facility: [facility] Address:[address] [place], [place] [address]Performed By: #### 24515- 8 ####[facility] LABCLIA [id number] [place], [place] [address]Tkoxapdtak (Bld) [Volume fraction]31.6 %Low39.0-51.0 [facility] on above:Order Comment: Specimen Type: BLOOD SPECIMENOrdering Facility: [facility] Address:[address] [place], [place] [address]Performed By: #### 52819-0 ####[facility] LABIA [id number] [place], [place] [address]Lcqrlrgeov (Bld) [Mass/Vol]10.6 g/dLLow13.0-17.0[facility] on above:Order Comment: Specimen Type: BLOOD SPECIMENOrdering Facility: [facility] Address:[address] [place], [place] [address]Performed By: #### 57292- 8 ####[facility] LABCLIA [id number] [place], [place] [address]Rcklqamd granulocytes (Bld) [#/Vol]10*3/uLNormal<0.10 [facility] on above:Order Comment: Specimen Type: BLOOD SPECIMENOrdering Facility: [facility] Address:[address] [place], [place] [address]Performed By: #### 99942-8 ####[facility] LABCLIA [id number] [place], [place] [address]Wkpafrie granulocytes/100 WBC (Bld)0.4 %NormalLicking Memorial Hospital on above: Order Comment: Specimen Type: BLOOD SPECIMENOrdering Facility: [facility] Address:[address] [place], [place] [address]Performed By: #### 18934- 8 ####[facility] LABCLIA [id number] [place], [place] [address]Wiqmjzmqaqa (Bld) [#/Vol]0.96 10*3/uLLow1.00-4.00 [facility] on above:Order Comment: Specimen Type: BLOOD SPECIMENOrdering Facility: [facility] Address:[address] [place], [place] [address]Performed By: #### 31813-5 ####[facility] LABCLIA [id number] [place], [place] [address]Egpwcvakpnl/100 WBC (Bld)20.7 %NormalLicking Memorial Hospital on above:Order Comment: Specimen Type: BLOOD SPECIMENOrdering Facility: [facility] Address:[address] [place], [place] [address]Performed By: #### 11286-6 ####[facility] LABCLIA [id number] [place], [place] [address]AVK (RBC) [Entitic mass]33.9 aaNhrieq10.0-34.0[facility] on above:Order Comment: Specimen Type: BLOOD SPECIMENOrdering Facility: [facility] Address:[address] [place], [place] [address]Performed By: #### 08269-3 ####[facility] LABCLIA [id number] [place], [place] [address]CIBJ (RBC) [Mass/Vol]33.5 g/iTKofrri82.5-36.0[facility] on above: Order Comment: Specimen Type: BLOOD SPECIMENOrdering Facility: [facility] Address:[address] [place], [place] [address]Performed By: #### 30663- 8 ####[facility] LABCLIA [id number] [place], [place] [address]NGQ (RBC) [Entitic vol]101.0 cTTkwp88.0-100.0[facility] on above:Order Comment: Specimen Type: BLOOD SPECIMENOrdering Facility: [facility] Address:[address] [place], [place] [address]Performed By: #### 83779-2 ####[facility] LABCLIA [id number] [place], [place] [address]Uklekoxqq (Bld) [#/Vol]0.38 10*3/uLNormal<0.87[facility] on above:Order Comment: Specimen Type: BLOOD SPECIMENOrdering Facility: [facility] Address:[address] [place], [place] [address]Performed By: #### 06209- 8 ####[facility] LABCLIA [id number] [place], [place] [address]Xmknsfloe/100 WBC (Bld)8.2 %NormalLicking Memorial Hospital on above:Order Comment: Specimen Type: BLOOD SPECIMENOrdering Facility: [facility] Address:[address] [place], [place] [address]Performed By: #### 21570-0 ####[facility] LABCLIA [id number] [place], [place] [address]Iqmjfntigue (Bld) [#/Vol]3.08 10*3/uLNormal1.45-7.50[facility] on above:Order Comment: Specimen Type: BLOOD SPECIMENOrdering Facility: [facility] Address:[address] [place], [place] [address]Performed By: #### 81471-9 ####[facility] LABCLIA [id number] [place], [place] [address]Parkuzviiyw/100 WBC (Bld)66.4 %NormalLicking Memorial Hospital on above:Order Comment: Specimen Type: BLOOD SPECIMENOrdering Facility: [facility] Address:[address] [place], [place] [address]Performed By: #### 33837-1 ####[facility] LABCLIA [id number] [place], [place] [address]Kwnvbnjrl RBC (Bld) [#/Vol] 10*3/uLNormal<0.01[facility] on above:Order Comment: Specimen Type: BLOOD SPECIMENOrdering Facility: [facility] Address:[address] [place], [place] [address]Performed By: #### 88549-3 ####[facility] LABIA [id number] [place], [place] [address]Jtxoiolzb RBC/100 WBC (Bld) [Ratio]0.0 /100 WBCNormal [facility] on above:Order Comment: Specimen Type: BLOOD SPECIMENOrdering Facility: [facility] Address:[address] [place], [place] [address]Performed By: #### 05694-1 ####[facility] LABIA [id number] [place], [place] [address]Joihzyyd mean volume (Bld) [Entitic vol]9.4 fLNormal9.0-12.7CVan Wert County Hospital on above:Order Comment: Specimen Type: BLOOD SPECIMENOrdering Facility: [facility] Address:[address] [place], [place] [address] Performed By: #### 02994-4 ####[facility] LABCLIA [id number] [place], [place] [address]Wqycmatcg (Bld) [#/Vol]209 10*3/jKOzktnf680-828QefomnagdLicking Memorial Hospital on above:Order Comment: Specimen Type: BLOOD SPECIMENOrdering Facility: [facility] Address:[address] [place], [place] [address]Performed By: #### 81401-8 ####[facility] LABCLIA [id number] [place], [place] [address]VGA (Bld) [#/Vol]3.13 10*6/uLLow4.20-6.00[facility] on above:Order Comment: Specimen Type: BLOOD SPECIMENOrdering Facility: [facility] Address:[address] [place], [place] [address]Performed By: #### 73182-3 ####[facility] LABIA [id number] [place], [place] [address]KDZ (Bld) [#/Vol]4.64 10*3/uL Normal3.70-11.00[facility] on above:Order Comment: Specimen Type: BLOOD SPECIMENOrdering Facility: [facility] Address:[address] [place], [place] [address]Performed By: #### 38132-7 ####[facility] LABIA [id number] [place], [place] [address]FA CHEST W IVCONon 06-08-6489GB CHEST W IVCON* * *Final Report* * * DATE OF EXAM: Jan 10 2025 3:05PM [facility] 0539 - CT CHEST W IVCON [...] any questions regarding this interpretation, please call [phone]. If you are unable to reach us at the number above, please feel free to contact [facility] eRadiology at [phone]. [id number] Health Akron Campus NECK SOFT TISSUE W IVCONon 24-94-5354UX NECK SOFT TISSUE W IVCON* * *Final Report* * * DATE OF EXAM: Jan 10 2025 3:05PM [facility] 0013 - CT NECK SOFT TISSUE [...] amalgam. Parotid and submandibular spaces are normal. Nurse Emergency Room spaces appear normal. Infrahyoid Neck: Hypopharynx, larynx, [...] report reviewed and electronically signed by: NÉSTOR RGEEN MD on Jan 10 2025 3:19PM EST Thank you for allowing us to participate in the care of your patient. Should there be any questions regarding this interpretation, please call [phone]. If you are unable to reach us at the number above, please feel free to contact [facility] eRadiology at [phone]. [id number] Health Akron Campus Neck W contrast Javier 70-28-6681AKXJXOTDVK: Redemonstration of the posttreatment related changes in [...] any questions regarding this interpretation, please call [phone]. If you are unable to reach us at the number above, please feel free to contact [facility] eRadiology at [phone].DIVISION OF RADIOLOGY* * *Final Report* * * DATE OF EXAM: Jan 10 2025 3:05PM [facility] 0013 - CT NECK SOFT TISSUE [...] amalgam. Parotid and submandibular spaces are normal. Nurse Emergency Room spaces appear normal. Infrahyoid Neck: Hypopharynx, larynx, [...] accession. Other: Not applicable. DIVISION OF RADIOLOGYProvider, [facility] [place] - 01/10/2025 * * *Final Report* * * DATE OF EXAM: Jan 10 2025 3:05PM [facility] 0013 - CT NECK SOFT TISSUE [...] amalgam. Parotid and submandibular spaces are normal. Nurse Emergency Room spaces appear normal. Infrahyoid Neck: Hypopharynx, larynx, [...] any questions regarding this interpretation, please call [phone]. If you are unable to reach us at the number above, please feel free to contact [facility] at [phone]. [facility] HospitalRadiology Study observation (narrative)[facility] HospitalCT Neck W contrast IVOrdered By: Ccf Provider on 26-19-0869Whoyafkfk ClinicComprehensive metabolic 2000 panelOrdered By: Jess Baker on 81-15-3482Ojidqzl [Mass/Vol]4.4 g/dL3.9 - 4.9 g/dLSeville ClinicALP [Catalytic activity/Vol]79 U/L38 - 113 U/L [facility] ClinicALT [Catalytic activity/Vol]8 U/LLow10 - 54 U/LCleveland Clinic Anion gap [Moles/Vol]11 mmol/L8 - 15 mmol/LCleveland ClinicAST [Catalytic activity/Vol]14 U/L14 - 40 U/LCleveland ClinicBilirubin [Mass/Vol]0.6 mg/dL0.2 - 1.3 mg/dLSeville ClinicCalcium [Mass/Vol]9.6 mg/dL8.5 - 10.2 mg/dLSeville ClinicChloride [Moles/Vol]102 mmol/L98 - 107 mmol/LCleveland ClinicCO2 [Moles/Vol]25 mmol/L22 - 30 mmol/LCleveland ClinicCreatinine [Mass/Vol]0.68 mg/dLLow0.73 - 1.22 mg/dLClinton Memorial HospitalGFR/1.73 sq M.predicted among non- blacks MDRD (S/P/Bld) [Vol rate/Area]101 mL/min/{1.73_m2}- [facility] Comment on above:Estimated Glomerular [...] not accurately reflect actual GFR.Glucose [Mass/Vol] 100 mg/yELpog61 - 99 mg/dLClinton Memorial HospitalComment on above:The [place] [employer] Association (ADA) provides guidance for cutoff [...] Standards of Medical Care in Diabetes 2016, [place] [employer]. Diabetes Care. 2016.39(Suppl 1). Interpretation and review of laboratory resultsAbnormalClevelatrium health anson ClinicPotassium [Moles/Vol]3.7 mmol/L3.7 - 5.1 mmol/LCst. mary's medical center ClinicProtein [Mass/Vol]6.8 g/dL 6.3 - 8.0 g/dLCleveland Clinic Mentor Hospitalodium [Moles/Vol]138 mmol/L136 - 144 mmol/L [facility] HospitalUrea nitrogen [Mass/Vol]9 mg/dL9 - 24 mg/dLPremier Health Atrium Medical CenterComprehensive metabolic 2000 panelon 65-86-7539Mnwclyj [Mass/Vol]4.4 g/dLNormal3.9-4.9CGrand Lake Joint Township District Memorial HospitalComment on above:Order Comment: Specimen Type: BLOOD SPECIMENOrdering Facility: [facility] Address:[address], [place] [address]Performed By: #### 73737- 8 ####[facility] HOSPITALZULEIMA [facility] LABCLIA [id number] [place] MILESBANNER BOSWELL MEDICAL CENTERJOAQUÍNCLAREMONT, [place] [address]OVA [Catalytic activity/Vol]79 U/QHdtxfv04-132MoawahcwuLicking Memorial Hospital on above:Order Comment: Specimen Type: BLOOD SPECIMENOrdering Facility: [facility] Address:[address] [place], [place] [address]Performed By: #### 46906-6 ####[facility] LABCLIA [id number] [place], [place] [address]FHE [Catalytic activity/Vol]8 U/OWkf33-83FqlbgypelLicking Memorial Hospital on above:Order Comment: Specimen Type: BLOOD SPECIMENOrdering Facility: [facility] Address:[address] [place], [place] [address]Performed By: #### 26822- 8 ####[facility] LABCLIA [id number] [facility] JDH[place], [place] [address]Bdiux gap [Moles/Vol]11 mmol/LNormal8-15[facility] on above:Order Comment: Specimen Type: BLOOD SPECIMENOrdering Facility: [facility] Address:[address] [place], [place] [address]Performed By: #### 79141-6 ####[facility] LABCLIA [id number] [place], [place] [address]FHH [Catalytic activity/Vol]14 U/PJdsmnn10-14UbntevroiLicking Memorial Hospital on above:Order Comment: Specimen Type: BLOOD SPECIMENOrdering Facility: [facility] Address:[address] [place], [place] [address]Performed By: #### 31156-5 ####[facility] LABCLIA [id number] [place] [address] Bilirubin [Mass/Vol]0.6 mg/dLNormal0.2-1.3CVan Wert County Hospital on above:Order Comment: Specimen Type: BLOOD SPECIMENOrdering Facility: [facility] Address:[address] [place], [place] [address]Performed By: #### 92677-6 ####[facility] LABCLIA [id number] [facility] HOSPITALELINBANNER BOSWELL MEDICAL CENTEREVARISTOROCK [place], [place] [address]Mxpffrl [Mass/Vol]9.6 mg/dLNormal8.5-10.2CVan [facility]ert County Hospital on above:Order Comment: Specimen Type: BLOOD SPECIMENOrdering Facility: [facility] Address:[address] [place], [place] [address]Performed By: #### 32421-4 ####[facility] LABCLIA [id number] [facility]IAL HOSPITALELINHARTSBURG, [place] [address]Obhncpxf [Moles/Vol]102 mmol/JSkwwjn23-907UzcerlkzgLicking Memorial Hospital on above: Order Comment: Specimen Type: BLOOD SPECIMENOrdering Facility: [facility] Address:[address] [place], [place] [address]Performed By: #### 48658- 8 ####[facility] LABCLIA [id number] [place], [place] [address]WJ6 [Moles/Vol]25 mmol/FGunvlk12-21OfztnduqeLicking Memorial Hospital on above:Order Comment: Specimen Type: BLOOD SPECIMENOrdering Facility: [facility] Address:[address] [place], [place] [address]Performed By: #### 06328-8 ####[facility] LABCLIA [id number] [facility] HOSPITALELINBANNER BOSWELL MEDICAL CENTEREVARISTOROCK [place], [place] [address]Dmnivgftjn [Mass/Vol]0.68 mg/dL Low0.73-1.22[facility] on above:Order Comment: Specimen Type: BLOOD SPECIMENOrdering Facility: [facility] Address:[address] [place], [place] [address]Performed By: #### 41516-3 ####[facility] LABCLIA [id number] [place] [address] Creatinine and Glomerular filtration rate.predicted panel (S/P/Bld)101 mL/min/1.73m???Normal>=60[facility] on above:Order Comment: Specimen Type: BLOOD SPECIMENOrdering Facility: [facility] Address:[address] [place], [place] [address]Result Comment: Estimated Glomerular Filtration Rate (eGFR) is [...] not accurately reflect actual GFR.Performed By: #### 26402-7 ####[facility] LABCLIA [id number] [place], [place] [address]Simiiei [Mass/Vol]100 mg/nCCehe53-69JvqershvmLicking Memorial Hospital on above:Order Comment: Specimen Type: BLOOD SPECIMENOrdering Facility: [facility] Address:[address] [place] [address]Ijxmgm Comment: The [place] Diabetes Association (ADA) provides guidance for cutoff [...] Standards of Medical Care in Diabetes 2016, [place] Diabetes Association. Diabetes Care. 2016.39(Suppl 1).Performed By: #### 28380-6 ####[facility] LABCLIA [id number] [place], [place] [address]Ohrxzbdoi [Moles/Vol]3.7 mmol/LNormal3.7-5.1CVan Wert County Hospital on above:Order Comment: Specimen Type: BLOOD SPECIMENOrdering Facility: [facility] Address:[address] [place], [place] [address]Performed By: #### 31589-4 ####[facility] LABIA [id number] [place], [place] [address]Awzewke [Mass/Vol]6.8 g/dLNormal6.3-8.0[facility] on above:Order Comment: Specimen Type: BLOOD SPECIMENOrdering Facility: [facility] Address:[address] [place], [place] [address]Performed By: #### 86009- 8 ####[facility] LABIA [id number] [place], [place] [address]Ujahzm [Moles/Vol]138 mmol/FJtqrin307-307TolyfvrtfLicking Memorial Hospital on above:Order Comment: Specimen Type: BLOOD SPECIMENOrdering Facility: [facility] Address:[address] [place], [place] [address]Performed By: #### 80877-0 ####[facility] LABIA [id number] [place], [place] [address]Hzbu nitrogen [Mass/Vol]9 mg/dL Normal9-24[facility] on above:Order Comment: Specimen Type: BLOOD SPECIMENOrdering Facility: [facility] Address:[address] [place], [place] [address]Performed By: #### 29336-7 ####[facility] LABIA [id number] [place] [address] Auditory function testson 79-28-7575Eeuep Ear: 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 Left Ear: Mild to severe sensorineural hearing loss above 500 Hz Community HealthCNOVSPon 70-76-9784DYPSECZsfhm (SP) Office (HEMASA) CARSON MORSE ([id number]) 1955 M Date Time Provider Department 06/29/24 11:15 AM WYATT GARZA During your visit today, we recorded the following information about you: Temperature Pulse Respiration Blood pressure 97.7 degrees 60/minute 16/minute 153/90 Height 1.651 m Wyatt Garza MD 06/30/2024 9:51 PM Signed NAME: Carson Morse CLINIC NO.: [id number] DATE OF SERVICE: June 29, 2024 (Mirian) [...] then pursue annual monitor (more content not included)...NormalThe [facility] W Auto Differential panel (Bld) on 48-79-0409Wswdwgfbk (Bld) [#/Vol]0.04 10*3/uLNINFClinton Memorial Hospital Basophils/100 WBC (Bld)0.9 %[facility] HospitalDifferential cell count method Nom (Bld)AutoCleveland ClinicEosinophils (Bld) [#/Vol]0.04 10*3/uLNINFClinton Memorial HospitalEosinophils/100 WBC (Bld)0.9 %[facility] Memorial HospitalErythrocyte distribution width (RBC) [Ratio]13.2 %11.5 - 15.0 %[facility] HospitalHematocrit (Bld) [Volume fraction]35.9 %Low39.0 - 51.0 %[facility] HospitalHemoglobin (Bld) [Mass/Vol]12.8 g/dLLow13.0 - 17.0 g/dLClinton Memorial HospitalImmature granulocytes (Bld) [#/Vol]NINF [facility] HospitalImmature granulocytes/100 WBC (Bld)0.2 %[facility] Interpretation and review of laboratory resultsAbnormalCOhioHealth Hardin Memorial Hospital Lymphocytes (Bld) [#/Vol]0.77 10*3/uLLowClinton Memorial HospitalLymphocytes/100 WBC (Bld)18.2 %[facility] CincinnatiH (RBC) [Entitic mass]32.5 pg26.0 - 34.0 pg [facility] CincinnatiHC (RBC) [Mass/Vol]35.7 g/dL30.5 - 36.0 g/dLClinton Memorial Hospital MCV (RBC) [Entitic vol]91.1 fL80.0 - 100.0 fLCOhioHealth Hardin Memorial HospitalMonocytes (Bld) [#/Vol]0.48 10*3/uLNINFClinton Memorial HospitalMonocytes/100 WBC (Bld)11.4 %[facility] HospitalNeutrophils (Bld) [#/Vol]2.88 10*3/uLClinton Memorial HospitalNeutrophils/100 WBC (Bld)68.4 %[facility] HospitalNucleated RBC (Bld) [#/Vol]NINFCOhioHealth Hardin Memorial Hospital Nucleated RBC/100 WBC (Bld) [Ratio]0.0 %/100 WBCClinton Memorial HospitalPlatelet mean volume (Bld) [Entitic vol]10.2 fL9.0 - 12.7 fLCOhioHealth Hardin Memorial HospitalPlatelets (Bld) [#/Vol]182 10*3/uLSeville ClinicRBC (Bld) [#/Vol]3.94 10*6/uLLow4.20 - 6.00 m/[facility] HospitalWBC (Bld) [#/Vol]4.22 10*3/[facility] ClinicBasophils (Bld) [#/Vol]0.04 10*3/Normal<0.11CGrand Lake Joint Township District [facility] Hospital Comment on above:Order Comment: Specimen Type: BLOOD SPECIMENOrdering Facility: [facility] Address:[address] [place] [address] Performed By: #### 77738-3 ####[facility] LABCLIA [id number] [place], [place] [address]Djwcimgkk/100 WBC (Bld)0.9 % NormalCleveland Clinic Avon HospitalComment on above:Order Comment: Specimen Type: BLOOD SPECIMENOrdering Facility: [facility] Address:[address] [place], [place] [address]Performed By: #### 88404-9 ####[facility] LABCLIA [id number] [place] [address] Differential cell count method Nom (Bld)AutoNormalCGrand Lake Joint Township District Memorial Hospital Comment on above:Order Comment: Specimen Type: BLOOD SPECIMENOrdering Facility: [facility] Address:[address] [place] [address] Performed By: #### 05243-6 ####[facility] LABIA [id number] [place], [place] [address]Breayncbavx (Bld) [#/Vol]0.04 10*3/uLNormal<0.46[facility] on above:Order Comment: Specimen Type: BLOOD SPECIMENOrdering Facility: [facility] Address:[address] [place], [place] [address]Performed By: #### 43440-1 ####[facility] LABIA [id number] [place], [place] [address]Nlxclmpkupg/100 WBC (Bld)0.9 %NormalLicking Memorial Hospital on above:Order Comment: Specimen Type: BLOOD SPECIMENOrdering Facility: [facility] Address:[address] [place], [place] [address]Performed By: #### 50304-0 ####[facility] LABIA [id number] [place], [place] [address]Lxbkqsqdmvm distribution width (RBC) [Ratio]13.2 %Ixgngm98.5-15.0[facility] on above: Order Comment: Specimen Type: BLOOD SPECIMENOrdering Facility: [facility] Address:[address] [place], [place] [address]Performed By: #### 83503- 8 ####[facility] LABIA [id number] [place], [place] [address]Yicryddatv (Bld) [Volume fraction]35.9 %Low39.0-51.0 [facility] on above:Order Comment: Specimen Type: BLOOD SPECIMENOrdering Facility: [facility] Address:[address] [place], [place] [address]Performed By: #### 19499-0 ####[facility] LABIA [id number] [place], [place] [address]Hjoiyanvgi (Bld) [Mass/Vol]12.8 g/dLLow13.0-17.0[facility] on above:Order Comment: Specimen Type: BLOOD SPECIMENOrdering Facility: [facility] Address:[address] [place], [place] [address]Performed By: #### 77366- 8 ####[facility] LABCLIA [id number] [place], [place] [address]Sltedwef granulocytes (Bld) [#/Vol]10*3/uLNormal<0.10 [facility] on above:Order Comment: Specimen Type: BLOOD SPECIMENOrdering Facility: [facility] Address:[address] [place], [place] [address]Performed By: #### 78803-0 ####[facility] LABCLIA [id number] [place], [place] [address]Wcwybxea granulocytes/100 WBC (Bld)0.2 %[facility] on above: Order Comment: Specimen Type: BLOOD SPECIMENOrdering Facility: [facility] Address:[address] [place], [place] [address]Performed By: #### 13881- 8 ####[facility] LABCLIA [id number] [place], [place] [address]Biseigfeviu (Bld) [#/Vol]0.77 10*3/uLLow1.00-4.00 [facility] on above:Order Comment: Specimen Type: BLOOD SPECIMENOrdering Facility: [facility] Address:[address] [place], [place] [address]Performed By: #### 84972-6 ####[facility] LABCLIA [id number] [place], [place] [address]Tgnrnmtbhkk/100 WBC (Bld)18.2 %NormalLicking Memorial Hospital on above:Order Comment: Specimen Type: BLOOD SPECIMENOrdering Facility: [facility] Address:[address] [place], [place] [address]Performed By: #### 81323-7 ####[facility] LABCLIA [id number] [place], [place] [address]OVP (RBC) [Entitic mass]32.5 kfMpjnzm52.0-34.0[facility] on above:Order Comment: Specimen Type: BLOOD SPECIMENOrdering Facility: [facility] Address:[address] [place], [place] [address]Performed By: #### 04514-0 ####[facility] LABCLIA [id number] [place], [place] [address]PHPP (RBC) [Mass/Vol]35.7 g/jLPdcpdl10.5-36.0[facility] on above: Order Comment: Specimen Type: BLOOD SPECIMENOrdering Facility: [facility] Address:[address] [place], [place] [address]Performed By: #### 25561- 8 ####[facility] LABIA [id number] [place], [place] [address]BYI (RBC) [Entitic vol]91.1 cCFpueva22.0-100.0[facility] on above:Order Comment: Specimen Type: BLOOD SPECIMENOrdering Facility: [facility] Address:[address] [place], [place] [address]Performed By: #### 66215-7 ####[facility] LABIA [id number] [place], [place] [address]Lvdoszwaz (Bld) [#/Vol]0.48 10*3/uLNormal<0.87[facility] on above:Order Comment: Specimen Type: BLOOD SPECIMENOrdering Facility: [facility] Address:[address] [place], [place] [address]Performed By: #### 30864- 8 ####[facility] LABIA [id number] [place], [place] [address]Rocfkqssq/100 WBC (Bld)11.4 %NormalLicking Memorial Hospital on above:Order Comment: Specimen Type: BLOOD SPECIMENOrdering Facility: [facility] Address:[address] [place], [place] [address]Performed By: #### 92771-9 ####[facility] LABCLIA [id number] [place], [place] [address]Ayjxvpijmay (Bld) [#/Vol]2.88 10*3/uLNormal1.45-7.50[facility] on above:Order Comment: Specimen Type: BLOOD SPECIMENOrdering Facility: [facility] Address:[address] [place], [place] [address]Performed By: #### 49944-8 ####[facility] LABCLIA [id number] [place], [place] [address]Eziwugzhldf/100 WBC (Bld)68.4 %NormalLicking Memorial Hospital on above:Order Comment: Specimen Type: BLOOD SPECIMENOrdering Facility: [facility] Address:[address] [place], [place] [address]Performed By: #### 61614-0 ####[facility] LABCLIA [id number] [place], [place] [address]Bxgdlvhes RBC (Bld) [#/Vol] 10*3/uLNormal<0.01[facility] on above:Order Comment: Specimen Type: BLOOD SPECIMENOrdering Facility: [facility] Address:[address] [place], [place] [address]Performed By: #### 47230-3 ####[facility] LABCLIA [id number] [place], [place] [address]Thlzjsqcc RBC/100 WBC (Bld) [Ratio]0.0 /100 WBCNormal [facility] on above:Order Comment: Specimen Type: BLOOD SPECIMENOrdering Facility: [facility] Address:[address] [place], [place] [address]Performed By: #### 22364-7 ####[facility] LABCLIA [id number] [place], [place] [address]Idtqpisp mean volume (Bld) [Entitic vol]10.2 fLNormal9.0-12.7CVan Wert County Hospital on above:Order Comment: Specimen Type: BLOOD SPECIMENOrdering Facility: [facility] Address:[address] [place] [address] Performed By: #### 52669-7 ####[facility] LABCLIA [id number] [place], [place] [address]Sujmgqlya (Bld) [#/Vol]182 10*3/zUVeuzrk740-281LdugxmfipLicking Memorial Hospital on above:Order Comment: Specimen Type: BLOOD SPECIMENOrdering Facility: [facility] Address:[address] [place], [place] [address]Performed By: #### 61795-3 ####[facility] LABCLIA [id number] [place], [place] [address]YLW (Bld) [#/Vol]3.94 10*6/uLLow4.20-6.00[facility] on above:Order Comment: Specimen Type: BLOOD SPECIMENOrdering Facility: [facility] Address:[address] [place], [place] [address]Performed By: #### 34271-4 ####[facility] LABCLIA [id number] [place], [place] [address]EYU (Bld) [#/Vol]4.22 10*3/uL Normal3.70-11.00[facility] on above:Order Comment: Specimen Type: BLOOD SPECIMENOrdering Facility: [facility] Address:[address] [place], [place] [address]Performed By: #### 06574-9 ####[facility] LABCLIA [id number] [place], [place] [address]XG CHEST W IVCONon 51-67-0430TE CHEST W IVCON* * *Final Report* * * DATE OF EXAM: Jun 22 2024 9:02AM [facility] 0539 - CT CHEST W IVCON [...] abdomen: Visualized upper abdomen is grossly unremarkable. Supervisor Steffen House (topogram) images: Unremarkable. IMPRESSION: Previously identified new [...] any questions regarding this interpretation, please call [phone]. If you are unable to reach us at the number above, please feel free to contact [facility] eRadiology at [phone]. [id number]_IDCSIACNNormalCleveland Clinic Avon HospitalCT Chest W contrast Javier 69-63-8510BCQZAQDAHB: Previously identified new pulmonary nodules have resolved [...] any questions regarding this interpretation, please call [phone]. If you are unable to reach us at the number above, please feel free to contact [facility] eRadiology at [phone].DIVISION OF RADIOLOGY* * *Final Report* * * DATE OF EXAM: Jun 22 2024 9:02AM [facility] 0539 - CT CHEST W IVCON [...] abdomen: Visualized upper abdomen is grossly unremarkable. Supervisor Steffen House (topogram) images: Unremarkable. DIVISION OF RADIOLOGYProvider, [facility] [place] - 06/22/2024 * * *Final Report* * * DATE OF EXAM: Jun 22 2024 9:02AM [facility] 0539 - CT CHEST W IVCON [...] abdomen: Visualized upper abdomen is grossly unremarkable. Supervisor Steffen House (topogram) images: Unremarkable. IMPRESSION IMPRESSION: Previously identified [...] any questions regarding this interpretation, please call [phone]. If you are unable to reach us at the number above, please feel free to contact [facility] Hospital[facility] at [phone]. [facility] HospitalRadiology Study observation (narrative)[facility] Chest W contrast IVOrdered By: Ccf Provider on 28-93-8630Jlffvobfi ClinicComprehensive metabolic 2000 panelOrdered By: Les Luke on 73-76-3849Cazrjxe [Mass/Vol]5.1 g/dLHigh3.9 - 4.9 g/dLClekeenan private hospital ClinicALP [Catalytic activity/Vol]88 U/L38 - 113 U/LCleveland ClinicALT [Catalytic activity/Vol]15 U/L10 - 54 U/LCleveland Clinic Anion gap [Moles/Vol]9 mmol/L8 - 15 mmol/LCleveland ClinicAST [Catalytic activity/Vol]33 U/L14 - 40 U/LCleveland ClinicBilirubin [Mass/Vol]1.1 mg/dL0.2 - 1.3 mg/dLClekeenan private hospital ClinicCalcium [Mass/Vol]10.3 mg/dLHigh8.5 - 10.2 mg/dL [facility] HospitalChloride [Moles/Vol]97 mmol/LLow98 - 107 mmol/LCleveland Clinic CO2 [Moles/Vol]26 mmol/L22 - 30 mmol/LCleveland ClinicCreatinine [Mass/Vol]0.96 mg/dL0.73 - 1.22 mg/dLSeville ClinicGFR/1.73 sq M.predicted among non-blacks MDRD (S/P/Bld) [...] not accurately reflect actual GFR.Glucose [Mass/Vol] 104 mg/jHKmnx39 - 99 mg/dLSCCI Hospital [facility]ima on above:The [place] Diabetes Association (ADA) provides guidance for cutoff [...] Standards of Medical Care in Diabetes 2016, [place] Diabetes Association. Diabetes Care. 2016.39(Suppl 1). Interpretation and review of laboratory resultsAbnormalCleveland ClinicPotassium [Moles/Vol]5.0 mmol/L3.7 - 5.1 mmol/LCst. mary's medical center ClinicProtein [Mass/Vol]7.9 g/dL 6.3 - 8.0 g/dLCleveland Clinic Mentor Hospitalodium [Moles/Vol]132 mmol/CRvy854 - 144 mmol/L [facility] HospitalUrea nitrogen [Mass/Vol]11 mg/dL9 - 24 mg/dLPremier Health Atrium Medical CenterComprehensive metabolic 2000 panelon 94-11-2275Bdhaeyx [Mass/Vol]5.1 g/dLHigh3.9-4.9CVan [facility]ert [facility] on above:Order Comment: Specimen Type: BLOOD SPECIMENOrdering Facility: [facility] Address:[address] [place], [place] [address]Fkfwyminm By: #### 87383- 8 ####[facility] HOSPITALZULEIMA [facility] LABCLIA [id number] [place], [place] [address]KWU [Catalytic activity/Vol]88 U/JJdsyai58-019DvezflduoLicking Memorial Hospital on above:Order Comment: Specimen Type: BLOOD SPECIMENOrdering Facility: [facility] Address:[address] [place], [place] [address]Performed By: #### 32435-0 ####[facility] LABCLIA [id number] [place] [address]WNF [Catalytic activity/Vol]15 U/ZPhdfrl56-68XdrrnrqitLicking Memorial Hospital on above:Order Comment: Specimen Type: BLOOD SPECIMENOrdering Facility: [facility] Address:[address] [place], [place] [address]Performed By: #### 84891- 8 ####[facility] LABCLIA [id number] [place] MILESBANNER BOSWELL MEDICAL CENTERJOAQUÍNCLAREMONT, [place] [address]Qyinm gap [Moles/Vol]9 mmol/LNormal8-15[facility] on above:Order Comment: Specimen Type: BLOOD SPECIMENOrdering Facility: [facility] Address:[address] [place], [place] [address]Performed By: #### 46200-8 ####[facility] LABCLIA [id number] [place], [place] [address]CEK [Catalytic activity/Vol]33 U/YWzrqja45-02BbubncskvLicking Memorial Hospital on above:Order Comment: Specimen Type: BLOOD SPECIMENOrdering Facility: [facility] Address:[address] [place], [place] [address]Performed By: #### 23351-8 ####[facility] LABCLIA [id number] [place] [address] Bilirubin [Mass/Vol]1.1 mg/dLNormal0.2-1.3CVan [facility]ert County Hospital on above:Order Comment: Specimen Type: BLOOD SPECIMENOrdering Facility: [facility] Address:[address] [place], [place] [address]Performed By: #### 61797-3 ####[facility] LABCLIA [id number] NEIL DILLONELINBANNER BOSWELL MEDICAL CENTERJOAQUÍNCLAREMONT, [place] [address]Icgfgym [Mass/Vol]10.3 mg/dLHigh8.5-10.2CVan [facility]ert [facility] on above:Order Comment: Specimen Type: BLOOD SPECIMENOrdering Facility: [facility] Address:[address] [place], [place] [address]Performed By: #### 00115-2 ####[facility] LABCLIA [id number] [place], [place] [address]Jixnmbmt [Moles/Vol]97 mmol/VGqm72-646GqitnohgdLicking Memorial Hospital on above:Order Comment: Specimen Type: BLOOD SPECIMENOrdering Facility: [facility] Address:[address] [place], [place] [address]Performed By: #### 95704- 8 ####[facility] LABCLIA [id number] [place], [place] [address]CG9 [Moles/Vol]26 mmol/VXcdstn95-40CgxezgeuaLicking Memorial Hospital on above:Order Comment: Specimen Type: BLOOD SPECIMENOrdering Facility: [facility] Address:[address] [place], [place] [address]Performed By: #### 75096-9 ####[facility] LABCLIA [id number] [place], [place] [address]Jhmlgcgjpj [Mass/Vol]0.96 mg/dL Normal0.73-1.22[facility] on above:Order Comment: Specimen Type: BLOOD SPECIMENOrdering Facility: [facility] Address:[address] [place], [place] [address]Performed By: #### 75453-7 ####[facility] LABCLIA [id number] [place], [place] [address]Dmmdkuxjgh and Glomerular filtration rate.predicted panel (S/P/Bld)87 mL/min/1.73m???Normal>=60[facility] on above:Order Comment: Specimen Type: BLOOD SPECIMENOrdering Facility: [facility] Address:[address] [place], [place] [address]Result Comment: Estimated Glomerular Filtration Rate (eGFR) is [...] not accurately reflect actual GFR.Performed By: #### 57791-5 ####[facility] LABCLIA [id number] [place], [place] [address]Oowrobi [Mass/Vol]104 mg/tJKisa18-29EigprablqLicking Memorial Hospital on above:Order Comment: Specimen Type: BLOOD SPECIMENOrdering Facility: [facility] Address:[address] [place] [id number] Comment: The [place] [employer] (ADA) provides guidance for cutoff [...] Standards of Medical Care in Diabetes 2016, [place] [employer]. Diabetes Care. 2016.39(Suppl 1).Performed By: #### 94387-2 ####[facility] LABCLIA [id number] [place], [place] [address]Smvqoqrek [Moles/Vol]5.0 mmol/LNormal3.7-5.1CVan [facility] on above:Order Comment: Specimen Type: BLOOD SPECIMENOrdering Facility: [facility] Address:[address] [place], [place] [address]Pepzshtnh By: #### 90593-9 ####[facility] LABCLIA [id number] [place], [place] [address]Lzxwube [Mass/Vol]7.9 g/dLNormal6.3-8.0[facility] on above:Order Comment: Specimen Type: BLOOD SPECIMENOrdering Facility: [facility] Address:[address] [place] [address]Tizhqnzdz By: #### [id number]- [id number] ####[facility] LABCLIA [id number] [place], [place] [address]Awzygg [Moles/Vol]132 mmol/XDwp017-912CjmpmrhutLicking Memorial Hospital on above:Order Comment: Specimen Type: BLOOD SPECIMENOrdering Facility: [facility] Address:[address] [place], [place] [address]Performed By: #### [id number] ####[facility] LABCLIA [id number] [place], [place] [address]Tdzp nitrogen [Mass/Vol]11 mg/dLNormal9-24[facility] on above:Order Comment: Specimen Type: BLOOD SPECIMENOrdering Facility: [facility] Address:[address] [place] [address]Hzzqsvdwq By: #### [id number] ####[facility] HOSPITALZULEIMA [facility] LABCLIA [id number] [place], [place] [address]TWZAbk 65-62-5002MWNLVpwdmouvg (MYLA) CARSON MORSE ([id number]) 1955 M Date Time Provider Department 06/12/24 [...] liver [K76.0] Order(s):ALPHA FETOPROTEIN [SQAFP] Order #: [id number] FUTURE US ABD RIGHT UPPER QUADRANT [[id number]] Order #: [id number] FUTURE DDI VIBRATION CONTROLLED TRANSIENT ELASTOGRAPHY (VCTE) [[id number]] Order #: [id number] Prescriptions as of 06/19/2024 - levoFLOXacin (LEVAQUIN) [...] 12/18/2020 Encounter Status:Closed by EMILY ARMSTRONG on 06/19/24[facility] NorthUS ABD RIGHT UPPER QUADRANTon 94-28-7390GA ABD RIGHT UPPER QUADRANT* * *Final Report* [...] the liver which may reflect mild/early cirrhosis. Jumbo Operator: ALEJO Transcribe Date/Time: May 28 2024 7:30P Dictated by : IVANNA CROFT MD This examination was interpreted and the report reviewed and electronically signed by: IVANNA CROFT MD on May 28 2024 7:33PM EST [id number]_IDCSIACNNormalFairfield Medical Center Abdomen RUQon 47-53-7652PUOUQMODRR: 1. Increase echogenicity the liver, likely secondary to hepatic steatosis. There is questionable minimal nodularity on the contour of the liver which may reflect mild/early cirrhosis. Jumbo Operator: ALEJO Transcribe Date/Time: May 28 2024 7:30P [...] No hydronephrosis. Ascites: None. DIVISION OF RADIOLOGYProvider, [facility] [place] - 05/28/2024 * * *Final Report* * [...] the liver which may reflect mild/early cirrhosis. Jumbo Operator: ALEJO Transcribe Date/Time: May 28 2024 7:30P Dictated by : IVANNA CROFT MD This examination was interpreted and the report reviewed and electronically signed by: IVANNA CROFT MD on May 28 2024 7:33PM [facility] Study observation (narrative)[facility] Abdomen RUQOrdered By: [facility]cf Provider on 60-39-9196Jwhvkyebi ClinicCNPNon 52-64-2462HCUWGzjwzqjgq (GASTNO) CARSON MORSE ([id number]) 1955 M Date Time Provider Department 05/24/24 HALIMA NIXON During your visit today, we recorded the following information about you: Emily Armstrong RN 05/24/2024 9:56 AM Addendum ----- Message from Halima Nixon MD sent at 05/23/2024 2:56 PM EDT ----- Negative hep C RNA consistent with sustained response Repeat in one year Reviewed test results Pt read result message from Dr. Nixon via Fire[employer]. Called and spoke to patient regarding test results and recommendation from Dr. Nixon Pt state dUS is sched for Mon at [place] Demonstrated understanding Dr. Lund, Orders submitted for repeat Hep C RNA Please review and sign ThanksEmily RN Allergies As of Date: 05/24/2024 (No Known Allergies) Date Reviewed: 03/30/2024 Reviewed by: Felipa Sosa MA - Fully Assessed Primary Visit Diagnosis:Chronic hepatitis C without hepatic coma (HCC) [B18.2] Order(s):HEPATITIS C RNA QUANTIFICATION BY PCR, PLASMA/SERUM [SQHCQPCR] Order #: [id number] FUTURE Prescriptions as of 06/11/2024 - levoFLOXacin [...] 12/18/2020 Encounter Status:Closed by EMILY ARMSTRONG on 05/24/24NormalCGrand Lake Joint Township District Memorial HospitalHCV RNA SerPl PAULA+probe-aCncon 59-61-6413DNB RNA PAULA+probe QnNot detectedNormalHCV RNA not detected by PCR.[facility] Clinic Avon HospitalComment on above:Order Comment: Specimen Type: BLOOD SPECIMENOrdering Facility: [facility] Address:[address] [place], [place] [address]Performed By: #### [id number] ####[facility] LABCLIA [id number] [facility] [id number] OF [facility] MEDICAL CENTERCNPNon 89-03-1686YFPM Telephone (MYLA) CARSON MORSE ([id number]) 1955 M Date Time Provider Department 05/17/24 [...] LFTs [R79.89] Order(s):US ABD RIGHT UPPER QUADRANT [[id number]] Order #: [id number] FUTURE HEPATITIS C RNA QUANTIFICATION BY PCR, PLASMA/SERUM [SQHCQPCR] Order #: [id number] FUTURE Prescriptions as of 05/21/2024 - levoFLOXacin [...] 12/18/2020 Encounter Status:Closed by EMILY ARMSTRONG on 05/21/24[facility] NorthCNOVSPon 28-12-9694EOLUDXOxgkd (SP) Office (HEMASA) CARSON MORSE ([id number]) 1955 M Date Time Provider Department 03/30/24 2:45 PM WYATT GARZA During your visit today, we recorded the following information about you: Temperature Pulse Respiration Blood pressure 97.2 degrees 82/minute 16/minute 129/79 Weight Height 64 kg 1.651 m Wyatt Garza MD 04/01/2024 9:31 AM Signed NAME: Carson Morse CLINIC NO.: [id number] DATE OF SERVICE: March 30, 2024 ([facility]) [...] returns today, he has (more content not included)...NormalCleveland Clinic Avon HospitalCREATININE BLDOrdered By: Rufina Ibarra on 09-68-8622Olkowxujtj [Mass/Vol]0.84 mg/dL0.73 - 1.22 mg/dLClinton Memorial HospitalGFR/1.73 sq M.predicted among non-blacks MDRD (S/P/Bld) [Vol rate/Area]96 mL/min/{1.73_m2}- PINF [facility] on above:Estimated Glomerular Filtration Rate (eGFR) is [...] GFR. Interpretation and review of laboratory resultsNormalCleveland Mary Rutan HospitalCREATININE BLDon 12-39-2158Eyykzyxaxb [Mass/Vol]0.84 mg/dLNormal0.73-1.22 [facility] on above:Order Comment: Specimen Type: BLOOD SPECIMENOrdering Facility: [facility] Address:[address] [place], [place] [address]Performed By: #### CRET1 ####[facility] LABCLIA [id number] [place], [place] [address]Swdjccyqin and Glomerular filtration rate.predicted panel (S/P/Bld)96 mL/min/1.73m???Normal>=60 [facility] on above:Order Comment: Specimen Type: BLOOD SPECIMENOrdering Facility: [facility] Address:[address] [place] [address]Tnutuw Comment: Estimated Glomerular Filtration Rate (eGFR) is [...] accurately reflect actual GFR.Performed By: #### CRET1 ####[facility] HOSPITALAST [facility] LABCLIA [id number] [place], [place] [address]IT CHEST W IVCONon 42-82-6870ZF CHEST W IVCON* * *Final Report* * * DATE OF EXAM: Mar 23 2024 8:49AM [facility] 0539 - CT CHEST W IVCON [...] of an adrenal mass in the visualized apuvm-ar-rift. Fat-containing epigastric anterior abdominal hernia.. Supervisor Steffen House (topogram) images: No additional findings. IMPRESSION: 1. [...] any questions regarding this interpretation, please call [phone]. If you are unable to reach us at the number above, please feel free to contact [facility] eRadiology at [phone]. [id number] Health Akron Campus Chest W contrast Javier 65-30-4350EMMNLBBLLW: 1. New subcentimeter nodular opacities measuring less than 5 mm. Consider follow-up to complete resolution. 2. Other subcentimeter nodular opacities measuring 7 mm, stable since 12/16/28. 3. New healing fracture deformities of several left ribs. 4. Borderline mediastinal lymphadenopathy, stable. Transcribe Date/Time: Mar 23 2024 10:10A Dictated by: AZNE WEAVER MD This examination was interpreted and the report reviewed and electronically signed by: ZANE WEAVER MD on Mar 23 2024 10:40AM EST Thank you for allowing us to participate in the care of your patient. Should there be any questions regarding this interpretation, please call [phone]. If you are unable to reach us at the number above, please feel free to contact [facility] eRadiology at [phone].DIVISION OF RADIOLOGY* * *Final Report* * * DATE OF EXAM: Mar 23 2024 8:49AM [facility] 0539 - CT CHEST W IVCON [...] of an adrenal mass in the visualized lqwzx-uf-ndvk. Fat-containing epigastric anterior abdominal hernia.. Supervisor Steffen House (topogram) images: No additional findings. DIVISION OF RADIOLOGYProvider, [facility] [place] - 03/23/2024 * * *Final Report* * * DATE OF EXAM: Mar 23 2024 8:49AM [facility] 0539 - CT CHEST W IVCON [...] of an adrenal mass in the visualized pvfhg-hc-rqsr. Fat-containing epigastric anterior abdominal hernia.. Supervisor Steffen House (topogram) images: No additional findings. IMPRESSION IMPRESSION: [...] any questions regarding this interpretation, please call [phone]. If you are unable to reach us at the number above, please feel free to contact [facility] eRadiology at [phone]. [facility] HospitalRadiology Study observation (narrative)[facility] HospitalCT Chest W contrast IVOrdered By: Ccf Provider on 56-58-5625Rgeishgvl [facility] W Auto Differential panel (Bld)on 25-14-9876Oyhxbhbqh (Bld) [#/Vol]0.05 10*3/uLNINF [facility] HospitalBasophils/100 WBC (Bld)1.2 %[facility] HospitalDifferential cell count method Nom (Bld)AutoCleveland ClinicEosinophils (Bld) [#/Vol]0.04 10*3/uL NINFClevelatrium health anson ClinicEosinophils/100 WBC (Bld)0.9 %[facility] Memorial HospitalErythrocyte distribution width (RBC) [Ratio]13.1 %11.5 - 15.0 %[facility] Memorial HospitalHematocrit (Bld) [Volume fraction]38.0 %Low39.0 - 51.0 %[facility] HospitalHemoglobin (Bld) [Mass/Vol]12.9 g/dLLow13.0 - 17.0 g/dLClinton Memorial HospitalImmature granulocytes (Bld) [#/Vol]NINFCleveland ClinicImmature granulocytes/100 WBC (Bld)0.2 % [facility] HospitalInterpretation and review of laboratory resultsAbnormalCleveland ClinicLymphocytes (Bld) [#/Vol]0.83 10*3/uLLowCleMercy HealthLymphocytes/100 WBC (Bld)19.5 %[facility] (RBC) [Entitic mass]31.7 pg26.0 - 34.0 pg [facility]HC (RBC) [Mass/Vol]33.9 g/dL30.5 - 36.0 g/dLClinton Memorial Hospital MCV (RBC) [Entitic vol]93.4 fL80.0 - 100.0 fLCOhioHealth Hardin Memorial HospitalMonocytes (Bld) [#/Vol]0.37 10*3/uLNINFClinton Memorial HospitalMonocytes/100 WBC (Bld)8.7 %[facility] Memorial HospitalNeutrophils (Bld) [#/Vol]2.95 10*3/uLClinton Memorial HospitalNeutrophils/100 WBC (Bld)69.5 %[facility] HospitalNucleated RBC (Bld) [#/Vol]NINFCOhioHealth Hardin Memorial Hospital Nucleated RBC/100 WBC (Bld) [Ratio]0.0 %/100 WBCClinton Memorial HospitalPlatelet mean volume (Bld) [Entitic vol]9.6 fL9.0 - 12.7 fLCOhioHealth Hardin Memorial HospitalPlatelets (Bld) [#/Vol]197 10*3/[facility]uff[facility] HospitalRBC (Bld) [#/Vol]4.07 10*6/uLLow4.20 - 6.00 m/[facility]uff[facility] HospitalWBC (Bld) [#/Vol]4.25 10*3/uLUniversity Hospitals Health System ClinicCT Chest W contrast Javier 21-51-3372INQBGAJFUY: 1. Stable appearance of bilateral pulmonary nodules. [...] any questions regarding this interpretation, please call [phone]. If you are unable to reach us at the number above, please feel free to contact [facility] eRadiology at [phone].DIVISION OF RADIOLOGY* * *Final Report* * * DATE OF EXAM: Dec 16 2023 10:46AM [facility] 0539 - CT CHEST W IVCON [...] No abnormality in the imaged upper abdomen. Supervisor Steffen House (topogram) images: No additional findings. DIVISION OF RADIOLOGYProvider, [facility] [place] - 12/16/2023 * * *Final Report* * * DATE OF EXAM: Dec 16 2023 10:46AM [facility] 0539 - CT CHEST W IVCON [...] No abnormality in the imaged upper abdomen. Supervisor Steffen House (topogram) images: No additional findings. IMPRESSION IMPRESSION: [...] any questions regarding this interpretation, please call [phone]. If you are unable to reach us at the number above, please feel free to contact [facility] Hospitaliology at [phone]. [facility] Memorial HospitalCT Chest W contrast IVOrdered By: Ccf Provider on 12-16-2023 [facility] HospitalCT Neck W contrast Javier 47-00-9826ZTVMMXLDSZ: Stable appearance of the soft tissues of the neck since 12/15/2022. No evidence of recurrent soft tissue mass or significant cervical lymphadenopathy by size criteria. Transcribe Date/Time: Dec 16 2023 11:49A Dictated by: RHETT LO MD This examination was interpreted and the report reviewed and electronically signed by: RHETT OL MD on Dec 16 2023 12:02PM EST Thank you for allowing us to participate in the care of your patient. Should there be any questions regarding this interpretation, please call [phone]. If you are unable to reach us at the number above, please feel free to contact [facility] at [phone].DIVISION OF RADIOLOGY* * *Final Report* * * DATE OF EXAM: Dec 16 2023 10:46AM [facility] 0013 - CT NECK SOFT TISSUE [...] The soft tissue planes of the adjacent wire sawyer spaces are maintained. Mild dystrophic calcification is [...] apices. Other: Not applicable. DIVISION OF RADIOLOGYProvider, [facility] [place] - 12/16/2023 * * *Final Report* * * DATE OF EXAM: Dec 16 2023 10:46AM [facility] 0013 - CT NECK SOFT TISSUE [...] The soft tissue planes of the adjacent wire sawyer spaces are maintained. Mild dystrophic calcification is [...] any questions regarding this interpretation, please call [phone]. If you are unable to reach us at the number above, please feel free to contact [facility] eRadiology at [phone]. [facility] HospitalComprehensive metabolic 2000 panelOrdered By: Les Luke on 19-29-3550Cafcvcx [Mass/Vol]4.4 g/dL3.9 - 4.9 g/dLSeville ClinicALP [Catalytic activity/Vol]76 U/L38 - 113 U/LCleveland ClinicALT [Catalytic activity/Vol]9 U/LLow10 - 54 U/LCleveland ClinicAnion gap [Moles/Vol] 11 mmol/L9 - 18 mmol/LCleveland ClinicAST [Catalytic activity/Vol]21 U/L14 - 40 U/LCleveland ClinicBilirubin [Mass/Vol]0.8 mg/dL0.2 - 1.3 mg/dLClinton Memorial Hospital Calcium [Mass/Vol]10.2 mg/dL8.5 - 10.2 mg/dLSeville ClinicChloride [Moles/Vol] 99 mmol/L97 - 105 mmol/LCleveland ClinicCO2 [Moles/Vol]25 mmol/L22 - 30 mmol/L [facility] HospitalCreatinine [Mass/Vol]0.84 mg/dL0.73 - 1.22 mg/dLClinton Memorial Hospital GFR/1.73 sq M.predicted among non-blacks MDRD (S/P/Bld) [Vol rate/Area]96 mL/min/{1.73_m2}- PINFCmercy health perrysburg hospitaland River'S Edge HospitalComment on above:Estimated Glomerular Filtration Rate (eGFR) [...] actual GFR.Glucose [Mass/Vol]99 mg/dL74 - 99 mg/dL [facility] HospitalComment on above:The [place] Diabetes Association (ADA) provides guidance for cutoff [...] Standards of Medical Care in Diabetes 2016, [place] Diabetes Association. Diabetes Care. 2016.39(Suppl 1). Interpretation and review of laboratory resultsAbnormalCleveland ClinicPotassium [Moles/Vol]4.5 mmol/L3.7 - 5.1 mmol/LClevelatrium health anson ClinicProtein [Mass/Vol]7.2 g/dL 6.3 - 8.0 g/dLClekeenan private hospital ClinicSodium [Moles/Vol]135 mmol/CXaq307 - 144 mmol/L [facility] ClinicUrea nitrogen [Mass/Vol]12 mg/dL9 - 24 mg/dLCleveland Clinic Avon Hospital ClinicNo Panel Informationon 78-54-2462Gbspfcltj Study observation (narrative)[facility] HospitalProvider Letteron 73-09-2065Jbneedhh Letter March 16, 2023 [address]ORSE [address] [place] [id number] CARSON MORSE 1955 Dear Lito , We [...] prompt attention to this matter. Please call [phone] and choose the community representative option. Sincerely, [facility] [address], [place] [address] BzlkvrMkfiioKettering Health – Soin Medical CenterProvider Letteron 03-03-2023 Provider Letter March 03, 2023 CARSON MORSE [address] [place] [address] CARSON MORSE 1955 Dear Thom , We [...] [facility] [address], [place] [address] NlgkcrYnefxzKettering Health – Soin Medical CenterXR ANKLE RT MIN 3 VIEWSon 24-02-5569FO ANKLE RT MIN 3 VIEWSEXAM: XR ANKLE [...] Electronically authenticated by: ACE ARREOLA Date: 2023-01-27 14:40[facility] HospitalXR ANKLE RT MIN 3 VIEWSon 74-85-8479XZ ANKLE RT MIN 3 VIEWS EXAM: XR [...] Electronically authenticated by: BENEDICTO THAO Date: 2022-12-29 12:44[facility] HospitalFERRITIN BLDon 88-39-3855Ddfnfyqt [Mass/Vol]807.0 ng/vNNxio03.3 - 565.7 ng/mLCleveland ClinicFOLATE SERUMon 03-67-5183Eazntl [Mass/Vol]10.7 ng/mL4.7 - PINF ng/mLCleveland ClinicFerritin [Mass/Vol]on 12-16-2022 Interpretation and review of laboratory resultsAbnormalCleveland ClinicIron and Iron binding capacity panelon 72-31-9314Mbyqqqdicsfoxh and review of laboratory resultsAbnormalCleveland ClinicIron [Mass/Vol]213 ug/oTLnqs03 - 186 ug/dL [facility] HospitalIron binding capacity [Mass/Vol]421 ug/mDGgcn267 - 386 ug/dL [facility] HospitalIron/TIBC [Molar ratio]50.6 %15.0 - 57.0 %[facility]rium Medical CenterNo Panel Informationon 62-85-0649Tplggazhtrmdir and review of laboratory resultsNormalCmercy health perrysburg hospitaland [facility] BLD on 70-76-5354IJA Qn2.470 m[IU]/LCleveland [facility] Qnon 12-16-2022 Interpretation and review of laboratory resultsNormalCOhioHealth Hardin Memorial HospitalVITAMIN B12 BLOODon 22-39-9868Lylnzegxj (Vitamin B12) [Mass/Vol]276 pg/mL232 - 1245 pg/mL [facility] W Auto Differential panel (Bld)on 44-34-4315Yhtdbinoz (Bld) [#/Vol]0.05 10*3/uLNINFSeville ClinicBasophils/100 WBC (Bld)1.1 %[facility] HospitalDifferential cell count method Nom (Bld)AutoCleveland ClinicEosinophils (Bld) [#/Vol]0.04 10*3/uLNINFSeville ClinicEosinophils/100 WBC (Bld)0.9 % [facility] HospitalErythrocyte distribution width (RBC) [Ratio]13.4 %11.5 - 15.0 % [facility] HospitalHematocrit (Bld) [Volume fraction]36.7 %Low39.0 - 51.0 % [facility] HospitalHemoglobin (Bld) [Mass/Vol]12.5 g/dLLow13.0 - 17.0 g/dLClinton Memorial HospitalImmature granulocytes (Bld) [#/Vol]NINFCleveland ClinicImmature granulocytes/100 WBC (Bld)0.2 %[facility] HospitalInterpretation and review of laboratory resultsAbnormalCmercy health perrysburg hospitaland ClinicLymphocytes (Bld) [#/Vol]0.60 10*3/uL LowClinton Memorial HospitalLymphocytes/100 WBC (Bld)13.5 %[facility]H (RBC) [Entitic mass]33.8 pg26.0 - 34.0 pgClevelMeeker Memorial HospitalHC (RBC) [Mass/Vol]34.1 g/dL30.5 - 36.0 g/dLSelect Medical Specialty Hospital - CincinnatiV (RBC) [Entitic vol]99.2 fL80.0 - 100.0 fLCst. mary's medical center ClinicMonocytes (Bld) [#/Vol]0.41 10*3/uLNINFClinton Memorial Hospital Monocytes/100 WBC (Bld)9.2 %[facility] Memorial HospitalNeutrophils (Bld) [#/Vol]3.34 10*3/uLClinton Memorial HospitalNeutrophils/100 WBC (Bld)75.1 %[facility] HospitalNucleated RBC (Bld) [#/Vol]NINFClevelSt. John of God HospitalNucleated RBC/100 WBC (Bld) [Ratio]0.0 % /100 WBCClinton Memorial HospitalPlatelet mean volume (Bld) [Entitic vol]9.2 fL9.0 - 12.7 fLCst. mary's medical center ClinicPlatelets (Bld) [#/Vol]174 10*3/uLSeville ClinicRBC (Bld) [#/Vol]3.70 10*6/uLLow4.20 - 6.00 m/[facility] HospitalWBC (Bld) [#/Vol]4.45 10*3/[facility] HospitalThis is an appended report. These results have been appended to a previously verified report.[facility] HospitalCT Chest W contrast Javier 66-06-0987ETWXLLDVXE: 1. 7 mm part solid right middle [...] any questions regarding this interpretation, please call [phone]. If you are unable to reach us at the number above, please feel free to contact [facility] Hospitaliology at [phone].DIVISION OF RADIOLOGY* * *Final Report* * * DATE OF EXAM: Dec 15 2022 8:49AM [facility] 0539 - CT CHEST W IVCON [...] images through the upper abdomen are stable. Supervisor Steffen House (topogram) images: No additional findings. DIVISION OF RADIOLOGYProvider, [facility] [place] - 12/15/2022 * * *Final Report* * * DATE OF EXAM: Dec 15 2022 8:49AM [facility] 0539 - CT CHEST W IVCON [...] images through the upper abdomen are stable. Supervisor Steffen House (topogram) images: No additional findings. IMPRESSION IMPRESSION: [...] any questions regarding this interpretation, please call [phone]. If you are unable to reach us at the number above, please feel free to contact [facility] eRadiology at [phone]. [facility] HospitalCT Neck W contrast Javier 34-03-5492TGUJATDMVM: Post-treatment changes without discrete residual/recurrent neoplasm or [...] any questions regarding this interpretation, please call [phone]. If you are unable to reach us at the number above, please feel free to contact [facility] eRadiology at [phone].DIVISION OF RADIOLOGY* * *Final Report* * * DATE OF EXAM: Dec 15 2022 8:49AM [facility] 0013 - CT NECK SOFT TISSUE [...] was performed concurrently and is dictated separately. Supervisor Steffen House (topogram) images: No additional findings. DIVISION OF RADIOLOGYProvider, [facility] [place] - 12/15/2022 * * *Final Report* * * DATE OF EXAM: Dec 15 2022 8:49AM [facility] 0013 - CT NECK SOFT TISSUE [...] was performed concurrently and is dictated separately. Supervisor Steffen House (topogram) images: No additional findings. IMPRESSION IMPRESSION: [...] any questions regarding this interpretation, please call [phone]. If you are unable to reach us at the number above, please feel free to contact [facility] eRadiology at [phone]. [facility] HospitalCT Neck W contrast IVOrdered By: Ccf Provider on 12-15-2022 [facility] HospitalComprehensive metabolic 2000 panelOrdered By: Les Luke on 22-56-4803Npeuxnq [Mass/Vol]5.0 g/dLHigh3.9 - 4.9 g/dLSeville ClinicALP [Catalytic activity/Vol]72 U/L38 - 113 U/LCleveland ClinicALT [Catalytic activity/Vol]16 U/L10 - 54 U/LCleveland ClinicAnion gap [Moles/Vol]12 mmol/L9 - 18 mmol/LCleveland ClinicAST [Catalytic activity/Vol]30 U/L14 - 40 U/LCleveland ClinicBilirubin [Mass/Vol]0.9 mg/dL0.2 - 1.3 mg/dLSeville ClinicCalcium [Mass/Vol]10.5 mg/dLHigh8.5 - 10.2 mg/dLSeville ClinicChloride [Moles/Vol]97 mmol/L97 - 105 mmol/LCleveland ClinicCO2 [Moles/Vol]28 mmol/L22 - 30 mmol/L [facility] HospitalCreatinine [Mass/Vol]0.73 mg/dL0.73 - 1.22 mg/dLClinton Memorial Hospital GFR/1.73 sq M.predicted among non-blacks MDRD (S/P/Bld) [Vol rate/Area]100 mL/min/{1.73_m2}- PINFCOhioHealth Hardin Memorial HospitalComment on above:Estimated Glomerular Filtration Rate (eGFR) is calculated using the 2020 CKD-EPI creatinine equation. This equation utilizes serum creatinine, sex, and age as parameters. The creatinine assay has traceable calibration to isotope dilution-mass spectrometry. Refer to KDIGO guidelines for clinical interpretation. In patients with unstable renal function, e.g. those with acute kidney injury, the eGFRmay not accurately reflect actual GFR.Glucose [Mass/Vol]106 mg/kKGwok30 - 99 mg/dL [facility] HospitalComment on above:The [place] Diabetes Association (ADA) provides guidance for cutoff [...] Standards of Medical Care in Diabetes 2016, [place] Diabetes Association. Diabetes Care. 2016.39(Suppl 1). Interpretation and review of laboratory resultsAbnormalCleveland ClinicPotassium [Moles/Vol]4.7 mmol/L3.7 - 5.1 mmol/LCleveland ClinicProtein [Mass/Vol]7.8 g/dL 6.3 - 8.0 g/dLSeville ClinicSodium [Moles/Vol]137 mmol/L136 - 144 mmol/L [facility] HospitalUrea nitrogen [Mass/Vol]11 mg/dL9 - 24 mg/dLPremier Health Atrium Medical CenterNo Panel Informationon 78-80-2624Zohzgxzrx Study observation (narrative)[facility] HospitalAmbulatory Visit Summaryon 91-59-6755Ucitfsecgk Visit Summary CARSON MORSE :1955 Visit Date:04/06/2022 Ambulatory Visit Instructions Your Diagnosis BPH without urinary obstruction Nocturia Tests Performed Urnls Dip Stick Auto w/o Microscopy POC [id number] Your Care Team Attending Physician - Herve [...] MD, Sushil Degroot [facility]Patient Educationon 15-46-4567Dzorcuh EducationUrology Hematuria, Adult Hematuria is blood in [...] these instructions at home: Medicines ? Take cntq-xzv-svkrbby and prescription medicines only as told by [...] the blood stops without treatment. ? Take abma-rkh-ldesqlb and prescription medicines only as told by your health care provider. ? Drink enough fluid to keep your urine clear or pale yellow. This information is not intended to replace advice given to you by your health care provider. Make sure you discuss any questions you have with your health care provider. Document Released: 10/24/2006 Document Revised: 03/19/2020 Document Reviewed: 11/26/2017 Else[employer] Patient Education ? 2019 [employer].[facility] Urology Office/Clinic Noteon 87-38-0650Iwvdtur Office/Clinic NoteChief Complaint 7 month with PSA [...] Urnls Dip Stick Auto w/o Microscopy POC 88235 2. Nocturia (R35.1: Nocturia) ongoing 2x a night Follow-up With When Contact Information Herve Flores MD, Sushil Degroot, URO In 1 year 04/06/2023 EDT [facility] [address], [place] [address]- Additional Instructions: w/psa Patient Education Hematuria, Adult [...] No qualifying data Procedure (more content not included)...[facility] CenterComment on above:Result Comment: Electronically Signed By: Herve Flores MD, Sushil Degroot\.br\Date and Time Signed: 04/06/2212:01 EDT\.br\Electronically Co-Signed By: Mariam Mchugh MA\.br\Date and Time Co-Signed: 04/06/22 11:59 EDTCT Chest W contrast Javier 18-37-0776MEJYKUENXY: 1. New subtle subcentimeter groundglass opacities in [...] any questions regarding this interpretation, please call [phone]. If you are unable to reach us at the number above, please feel free to contact [facility] at [phone].DIVISION OF RADIOLOGY* * *Final Report* * * DATE OF EXAM: Dec 16 2021 8:45AM [facility] 0539 - CT CHEST W IVCON [...] of an adrenal mass in the visualized xgzec-vi-vwdq. Fat-containing epigastric anterior abdominal hernia.. Supervisor Steffen House (topogram) images: No additional findings. DIVISION OF RADIOLOGYProvider, [facility] [place] - 12/16/2021 * * *Final Report* * * DATE OF EXAM: Dec 16 2021 8:45AM [facility] 0539 - CT CHEST W IVCON [...] of an adrenal mass in the visualized inbcw-fp-gdjb. Fat-containing epigastric anterior abdominal hernia.. Supervisor Steffen House (topogram) images: No additional findings. IMPRESSION IMPRESSION: [...] any questions regarding this interpretation, please call [phone]. If you are unable to reach us at the number above, please feel free to contact [facility] eRadiology at [phone]. [facility] Neck W contrast Javier 56-98-0770DUJWEAEVKY: 1. Stable anterior neck treatment changes. 2. [...] any questions regarding this interpretation, please call [phone]. If you are unable to reach us at the number above, please feel free to contact [facility] eRadiology at [phone].DIVISION OF RADIOLOGY* * *Final Report* * * DATE OF EXAM: Dec 16 2021 8:33AM [facility] 0013 - CT NECK SOFT TISSUE [...] or pathological neck lymphadenopathy. DIVISION OF RADIOLOGYProvider, [facility] [place] - 12/16/2021 * * *Final Report* * * DATE OF EXAM: Dec 16 2021 8:33AM [facility] 0013 - CT NECK SOFT TISSUE [...] any questions regarding this interpretation, please call [phone]. If you are unable to reach us at the number above, please feel free to contact [facility] at [phone]. [facility] HospitalNo Panel Informationon 37-68-8336Nbjarocis ClinicRadiology Study observation (narrative)[facility] Vital Signs Date TimeVital SignValuePerforming NkmygmtinMvhprpza69-85-4985 11:16-0400Body tzogvf268.1 cmAbram Fiore MD Work Phone: [facility]Hvtplbcbsd80-65-7992 11:16-0400Body mass index (BMI) [Ratio]23.8 kg/q8QfwwurAbram Fiore MD Work Phone: [facility] LouisAazfddroad88-72-2631 11:16-0400Body .86 kgAbram Fiore MD Work Phone: [facility] LouisOeqeunjhcg00-44-6090 11:18-0400Diastolic blood uzdeptuk02 mm[Hg]Wyatt Garza MD Work Phone: [facility] HospitalComment on above:qcblcko52-15-9858 11:18-0400Systolic blood foglgxdy668 mm[Hg]Wyatt Garza MD Work Phone: [facility] HospitalComment on above:qpfmvfe65-90-3789 11:15-0400Body kympgx210.1 cmVfarshad Garza MD Work Phone: [facility]03-17-2025 11:15-0400Body mass index (BMI) [Ratio]25.5 kg/b3ZkdbvWyatt Garza MD Work Phone: [facility]03-17-2025 11:15-0400Body temperature 97.59 [degF]Wyatt Garza MD Work Phone: [facility]03-17-2025 11:15-0400Body ijcpcw23.5 kgWyatt Garza MD Work Phone: [facility]03-17-2025 11:15-0400Heart rate77 /min Wyatt Garza MD Work Phone: [facility]03-17-2025 11:15-0400Respiratory rate 16 /minWyatt Garza MD Work Phone: [facility]03-17-2025 11:15-6011SkM9% (BldA) [Mass fraction]97 %Wyatt Garza MD Work Phone: [facility]09-16-2024 08:53-0400Body nqvoav182.1 cmAbram Fiore MD Work Phone: [place] [address]Lcjjejdokw52-51-6921 08:53-0400Body mass index (BMI) [Ratio]23.8 kg/k8UgiazoAbram Fiore MD Work Phone: [place] [address]Eldbqpqjai94-89-3158 08:53-0400Body cmmvde82.86 kgAbram Fiore MD Work Phone: [place] [address]Aqgiemtxac96-58-3300 08:53-0400Diastolic blood gozwjcvo71 mm[Hg]Abram Fiore MD Work Phone: [place] [address]Qgpgscqeov80-79-1225 08:53-0400Systolic blood sqvxdgna534 mm[Hg]Abram Fiore MD Work Phone: [place] [address]Zxtpkwlwlb38-87-4571 11:41-0400Body udguvr195.1 cmVfarshad Garza MD Work Phone: [facility]08-23-2024 11:41-0400Body temperature 97.7 [degF]Wyatt Garza MD Work Phone: [facility]08-23-2024 11:41-0400Diastolic blood vwdbqgeq06 mm[Hg]Wyatt Garza MD Work Phone: [facility]08-23-2024 11:41-0400Heart rate60 /min Wyatt Garza MD Work Phone: [facility]08-23-2024 11:41-0400Respiratory rate 16 /minWyatt Garza MD Work Phone: [facility]08-23-2024 11:41-5952IsQ6% (BldA) [Mass fraction]98 %Wyatt Garza MD Work Phone: [facility]08-23-2024 11:41-0400Systolic blood urahdggj384 mm[Hg]Wyatt Garza MD Work Phone: [facility]05-24-2024 14:27-0400Body inqnsb957.1 cmVfarshad Garza MD Work Phone: [facility]05-24-2024 14:27-0400Body mass index (BMI) [Ratio]23.5 kg/f6CkcsvWyatt Garza MD Work Phone: [facility]05-24-2024 14:27-0400Body temperature 97.2 [degF]Wyatt Garza MD Work Phone: [facility]05-24-2024 14:27-0400Body fzuqea29.05 kgWyatt Garza MD Work Phone: [facility]05-24-2024 14:27-0400Diastolic blood epoiofhy38 mm[Hg]Wyatt Garza MD Work Phone: [facility]05-24-2024 14:27-0400Heart rate82 /min Wyatt Garza MD Work Phone: [facility]05-24-2024 14:27-0400Respiratory rate 16 /minWyatt aGrza MD Work Phone: [facility]05-24-2024 14:27-7245LuD1% (BldA) [Mass fraction]98 %Wyatt Gazra MD Work Phone: [facility]05-24-2024 14:27-0400Systolic blood zddptrne462 mm[Hg]Wyatt Garza MD Work Phone: [facility]02-12-2024 10:07-0500Body .1 Jaime Garza MD Work Phone: [facility]02-12-2024 10:07-0500Body temperature 97.59 [degF]Wyatt Garza MD Work Phone: [facility]02-12-2024 10:07-0500Body oftqow73.6 kgWyatt Garza MD Work Phone: [facility]02-12-2024 10:07-0500Diastolic blood achgwwai83 mm[Hg]Wyatt Garza MD Work Phone: [facility]02-12-2024 10:07-0500Heart rate71 /min Wyatt Garza MD Work Phone: [facility]02-12-2024 10:07-0500Respiratory rate 16 /minWyatt Garza MD Work Phone: [facility]02-12-2024 10:07-0487EgJ0% (BldA) [Mass fraction]98 %Wyatt Garza MD Work Phone: [facility]02-12-2024 10:07-0500Systolic blood eclicsci212 mm[Hg]Wyatt Garza MD Work Phone: [facility]02-09-2023 10:48-0500Body dstacf945.1 Jaime Garza MD Work Phone: [facility]02-09-2023 10:48-0500Body temperature 97.59 [degF]Wyatt Garza MD Work Phone: [facility]02-09-2023 10:48-0500Body anbbfb58.58 kgWyatt Garza MD Work Phone: [facility]02-09-2023 10:48-0500Diastolic blood uzwtxupn912 mm[Hg]Wyatt Garza MD Work Phone: [facility]02-09-2023 10:48-0500Heart rate94 /min Wyatt Garza MD Work Phone: [facility]02-09-2023 10:48-0500Respiratory rate 16 /minWyatt Garza MD Work Phone: [facility]02-09-2023 10:48-2100DpS2% (BldA) [Mass fraction]95 %Wyatt Garza MD Work Phone: [facility]02-09-2023 10:48-0500Systolic blood lxvsazhi183 mm[Hg]Wyatt Garza MD Work Phone: [facility]08-11-2022 10:45-0400Body temperature 98.1 [degF]KAVIN Atkins MD Work Phone: [facility]08-11-2022 10:45-0400Body rdzykc01.22 kgKAVIN Atkins MD Work Phone: [facility]08-11-2022 10:45-0400Diastolic blood thlczgyt75 mm[Hg]KAVIN Atkins MD Work Phone: [facility]08-11-2022 10:45-0400Heart rate89 /min KAVIN Atkins MD Work Phone: [facility]08-11-2022 10:45-0400Respiratory rate 18 /Julio CesarKAVIN Atkins MD Work Phone: [facility]08-11-2022 10:45-8827CuZ9% (BldA) [Mass fraction]100 %KAVIN Atkins MD Work Phone: [facility]08-11-2022 10:45-0400Systolic blood mm[Hg]KAVIN Atkins MD Work Phone: [facility]05-31-2022 11:34-0400Blood Pressure LocationSushil Edgar Jr. [facility] 05-31-2022 11:34-0400Diastolic blood ybihgyfy21 mm[Hg] Sushil Edgar Jr. [facility] 05-31-2022 11:34-0400Heart rate72 /Kurt Edgar Jr. [facility] 05-31-2022 11:34-0400Respiratory rate16 /Kurt Edgar Jr. [facility] 05-31-2022 11:34-0400Systolic blood mm[Hg] Sushil Edgar Jr. [facility] Encounters Encounter DateEncounter TypeCare ProviderFacilityStart: 08-28-2025 End: 08-52-0633Yagmsv Néstor Fiore MD Work Phone: NOAM [place] OtolaryngologyStart: 08-28-2025 End: 17-75-8630Glacxu Néstor Fiore MD Work Phone: NOQG [place] OtolaryngologyStart: 08-28-2025 End: 78-89-6739Fjxeeu outpatient visit 25 minutesAbram Fiore MD Work Phone: noms [place] OtolaryngologyComment on above:Non-seasonal allergic rhinitis due to other allergic trigger (Primary Dx); Chronic sinusitis, unspecified location; Tongue cancer (HCC); Bilateral impacted cerumenStart: 08-28-2025 End: 53-44-7461dzncrwengnPLJAFP H TIMMISNot AvailableStart: 01-21-2025 End: 37-60-0808qjaxezbjhoNHGJBRQ M HOYFacility:[facility]: 01-21-2025 End: 97-30-4321Wrlxqp outpatient visit 25 minutesWyatt Garza MD Work Phone: Hematology/OncologyComment on above:History of head and neck cancer (Primary Dx); Lung nodulesStart: 01-18-2025 End: 33-30-7076Grazfjudo encounterHalima Nixon MD Work Phone: GastroenterologyComment on above:Follow Up Tests Results (Labs---->needs US, Fibroscan and OV)Start: 01-16-2025 End: 01-13-5605Fepinq-up encounterHalima Nixon MD Work Phone: GastroenterologyStart: 01-10-2025 End: 60-92-9376hqglzfmuyrRFNGDQQ M HOYFacility:[facility]: 01-10-2025 End: 95-24-6288Qsjthpcebf hospital visit by physicianArrival Time Radiology Work Phone: Radiology Pet CTComment on above:History of head and neck cancer [Z85.89]Start: 08-23-2024 End: 69-06-8588Poynxf flowsDaniel Welch [facility] Work Phone: noms AUDStart: 08-23-2024 End: 12-71-1069Scrqsf Radhika Welch [facility] Work Phone: noms AUDStart: 08-23-2024 End: 27-82-3005Uvfmszsu SupportDemartínez Soot Rebekah CCC-A Work Phone: noms AUDComment on above:Sensorineural hearing loss (SNHL) of both ears (Primary Dx)Start: 07-23-2024 End: 84-37-1364Vtdhgw Néstor Fiore MD Work Phone: noms ENT NORWALKStart: 07-23-2024 End: 12-13-2641Qnbtps Néstor Fiore MD Work Phone: noms ENT NORWALKStart: 07-23-2024 End: 90-80-8124Dzwnlf outpatient visit 15 minutesAbram Fiore MD Work Phone: noms [facility]LEY HOSPITALKComment on above:Tongue cancer (CMS/HCC) (Primary Dx)Start: 07-10-2024 End: 06-40-7544Icblbi flowsheetAlrojelio Charles [employer] CCC-A Work Phone: noMS AUDStart: 07-10-2024 End: 33-97-8757Qyviyc [employer] Financial GroupheetAstra Health Centerill [facility] Work Phone: noms AUDStart: 07-10-2024 End: 98-79-2837Asxmcjls SupportDeferry county memorial hospital Charles Rebekah [facility] Work Phone: noms AUDComment on above:Sensorineural hearing loss (SNHL) of both ears (Primary Dx)Start: 06-29-2024 End: 89-02-9687oqxlyjxensIKRKULW M HOYFacility:[facility]: 06-29-2024 End: 49-09-3399Ludovq outpatient visit 15 minutesWyatt Garza MD Work Phone: Hematology/OncologyComment on above:History of head and neck cancer (Primary Dx); Lung nodulesStart: 06-22-2024 End: 62-27-5463lwyaqdvgeyOONALXF M HOYFacility:[facility]: 06-22-2024 End: 58-96-8961Gartztgvxw hospital visit by physicianArrival Time Radiology Work Phone: Radiology Pet CTComment on above:History of head and neck cancer [Z85.89]Start: 67-03-2938Sacmqnhzc Javon Nixon MD Work Phone: GastroenterologyStart: 05-28-2024 End: 12-57-9627dqnfbxlegdNLBBAMT M HOYFacility:[facility]: 05-28-2024 End: 69-52-1704Ncdbrlpyln hospital visit by physicianUs [facility] LoraRadiologyComment on above:Abnormal LFTs [R79.89]Start: 25-18-0479Tjccyngnj Javon Nixon MD Work Phone: GastroenterologyStart: 05-22-2024 End: 71-08-9645ilqydacatsLOTVWIC M HOYFacility:[facility]: 63-08-6366Sznsygmpu Javon Nixon MD Work Phone: GastroenterologyStart: 03-30-2024 End: 99-36-7622fkwtyxjdzcWDKYAXB M HOYFacility:[facility]: 03-30-2024 End: 29-22-3925Ncevnc outpatient visit 25 minutesWyatt Garza MD Work Phone: Hematology/OncologyComment on above:History of head and neck cancer (Primary Dx); Lung nodulesStart: 03-23-2024 End: 35-94-4546eodphsbknaNYVBMMY M HOYFacility:[facility]: 03-23-2024 End: 09-55-2379Vugkdorndv hospital visit by physicianArrival Time Radiology Work Phone: Radiology Pet CTComment on above:Localized enlarged lymph nodes [R59.0]Start: 94-39-9940Nzocggzhw encounterZeny Tom RN Hematology/OncologyComment on above:ResultsStart: 12-19-2023 End: 27-07-2419Fwvvww outpatient visit 25 minutesWyatt Garza MD Work Phone: Hematology/OncologyComment on above:Localized enlarged lymph nodes (Primary Dx); Severe protein-calorie malnutrition (HCC); Malignant neoplasm of head, face and neck (HCC); History of head and neck cancerStart: 12-16-2023 End: 04-06-5768Jdpkzyvddy hospital visit by physicianArrival Time Radiology Work Phone: Radiology Pet CTComment on above:Lung nodules [R91.8] Start: 86-85-3187kywnwwstyfMvlsvy L SmithFacility:EU BellevueStart: 03-10-2023 ambulatoryKIMBERLEON RENDONFacility:S5Pchsw: 01-27-2023 End: 27-53-8886jqxzlelxjhFT ELBA HOY .Facility:G0Sfoee: 12-28-2022 End: 21-23-6042mnxurxrdwyWR ELBA HOY .Facility:Z5Kiuxm: 12-28-2022 End: 90-41-6502eaeyhkqtxvQU ELBA HOY .Facility:O9Nwngp: 12-16-2022 End: 05-87-9289Mziedo outpatient visit 25 minutesWyatt Garza MD Work Phone: Hematology/OncologyComment on above:Malignant neoplasm of head, face and neck (HCC) (Primary Dx); Lung nodules; Disorder of thyroidStart: 12-15-2022 End: 96-41-5443Mjegnpikjb hospital visit by physicianArrival Time Radiology Work Phone: Radiology Pet CTComment on above:Malignant neoplasm of head, face and neck (HCC) [C76.0]Start: 35-67-8250hsyyeenudeWU ELBA HOY . Facility:A2Kwiwv: 47-68-7875Dmnmutreji [facility] Comment on above:Chronic hepatitis C with hepatic coma (HCC) (Primary Dx)Start: 28-66-5781ixpukmmsqxApylw [facility] MAINStart: 73-46-7719Zclnrw-up encounterEritessie [facility] Specialty PharmacyComment on above:SPP Hepatology - Follow-up (Epclusa treatment complete)Start: 06-17-2022 End: 34-12-3350Edqevhb encounter Julio César Atkins MD Work Phone: Radiation OncologyComment on above:Effects of radiation, sequela (Primary Dx); Head and neck cancer (HCC)Start: 49-40-5947Uheelrcch encounterMarleni Atkins MD Work Phone: Radiation OncologyComment on above:Lab OrdersStart: 52-10-1452brxcfinbixTnddo [facility] MAINStart: 87-90-3566Msiegx-up encounterBhavya [facility] Specialty PharmacyComment on above:SPP Hepatology - Follow-up (Epclusa - End of Treatment)Start: 04-06-2022 End: 73-25-3192cwdwcwhggnLiwahq L SmithFacility:EU BellevueStart: 04-06-2022 End: 45-34-6730Hefbqqk encounter Chantell Edgar Jr. executive [facility] start: 47-84-5530Pcvcprcbb Javon Nixon MD Work Phone: GastroenterologyComment on above:ResultsStart: 50-54-2707Lsdvkyeoh PharmacyGeorgetown Behavioral Hospital Specialty PharmacyComment on above:SPP Hepatology - Medication Refill (Epclusa)Start: 23-95-5701Dyjhipwsh PharmacyEriHarrison Community Hospital Specialty PharmacyComment on above:SPP Hepatology - Medication Refill (Epclusa)Start: 25-89-3045Uporcdjiz Javon Nixon MD Work Phone: GastroenterologyComment on above:Follow UpStart: 12-16-2021 End: 04-70-3243Hudegdklck hospital visit by physicianArrival Time Radiology Work Phone: Radiology Pet CTComment on above:Malignant neoplasm of head, face and neck (HCC) [C76.0]Start: 03-14-2018 End: 13-33-8075Cxqimep encounter procedureDogidlardoaliyah Spence Astonity:[facility] Procedures DateProcedureProcedure DetailPerforming ClinicianStart: 26-69-1260Bk soft tissue neck w/contrast Lindsey Garza MD Work Phone: Start: 46-47-8594Zcyqr count complete auto&auto difrntl Marva Garza MD Work Phone: Start: 32-29-5096AMZKVLCL FUNCTION TESTSDeMontefiore [facility]-A Work Phone: start: 98-22-7279Mo thorax w/contrast Lindsey Garza MD Work Phone: Start: 77-59-3092Branz count complete auto&auto difrntl Marva Garza MD Work Phone: Start: 43-80-9346Kq abdominal real time w/image limitedHalima Nixon MD Work Phone: start: 45-24-8749Dm thorax w/contrast Lindsey Garza MD Work Phone: Start: 17-40-2681VKJNQPUZNQ Milton Garza MD Work Phone: Start: 62-42-1703Nz soft tissue neck w/contrast Lindsey Garza MD Work Phone: Start: 67-67-8294He thorax w/contrast Lindsey Garza MD Work Phone: Start: 24-45-9146Qojeu count complete auto&auto difrntl Marva Garza MD Work Phone: Start: 41-22-1558Nl soft tissue neck w/contrast Lindsey Garza MD Work Phone: Start: 09-37-3609Vs thorax w/contrast materialWyatt Garza MD Work Phone: Start: 70-40-4152Kqtar count complete auto&auto difrntl wbcWyatt Garza MD Work Phone: Start: 17-35-9911Ksddc depression screening assessment Halima Nixon MD Work Phone: start: 32-92-0144YhheeynunsHguitv Smith start: 53-11-8130YxdnwhgwpaNcmews Herve Flores biopsy of tongueRaysonu Edgar Jr. chemotherapyRaysonu Herve Flores Plan of Treatment DateCare ActivityDetailAuthorStart: 25-45-7742YFE Vaccine (1 - 1-dose 75+ series)RSV Vaccine (1 - 1-dose 75+ series)[facility]28 Diabetes ScreeningDiabetes ScreeningC[facility] Clinic [facility] Hospitaltart: 13-83-0309Ukpicuis ScreeningDiabetes ScreeningC[facility] Clinic [facility] Hospitaltart: 61-64-5704Dqrxlqsd Screening Diabetes ScreeningC[facility] Clinic [facility] Hospitaltart: 08-27-2026 End: 46-29-5987Rjahusn encounter blvmdaksq67/21/2026 11:20 AM EDT Office Visit [facility] [address] [facility] [address] [place] [address] Abram Fiore MD [address] [facility] [address] [place] [address] NOMTricia Eduardo OtolaryngologyStart: 02-26-2026 PROSTATE CANCER SCREENING DISCUSSIONPROSTATE CANCER SCREENING DISCUSSION [facility]: 01-21-2026 End: 81-96-4715UDQ W Auto Differential panel - BloodCOMPLETE BLOOD COUNT AND DIFFERENTIAL Lab Routine History of head and neck cancer Lung nodules Expected: 01/21/2026 (Approximate), Expires: 01/21/2026leveland ClinicComment on above: Expected: 01/21/2026 (Approximate), Expires: 01/21/2026Start: 01-21-2026 End: 70-84-7846Sqtszmccawgec metabolic 2000 panel - Serum or PlasmaCOMPREHENSIVE METABOLIC PANEL Lab Routine History of head and neck cancer Lung nodules Expected: 01/21/2026 (Approximate), Expires: 01/21/2026leveland ClinicComment on above:Expected: 01/21/2026 (Approximate), Expires: 01/21/2026Start: 01-21-2026 End: 16-24-6535LR Chest W contrast IVCT CHEST W IVCON Radiology Routine History of head and neck cancer Lung nodules Expected: 01/21/2026 (Approximate), Expires: 02/20/2026leveland ClinicComment on above:Expected: 01/21/2026 (Approximate), Expires: 02/20/2026Start: 01-21-2026 End: 37-95-9197FP Neck W contrast IVCT NECK SOFT TISSUE W IVCON Radiology Routine History of head and neck cancer Lung nodules Expected: 01/21/2026 (Approximate), Expires: 02/20/20[facility] Work Phone: Comment on above:Expected: 01/21/2026 (Approximate), Expires: 02/20/2026Start: 01-20-2026 End: 21-46-7983Xemakm-up pisptqduu14/16/2026 11:40 AM EDT Visit (SP) Office Hematology/Oncology [address] [address] Wyatt Garza MD [address] [place] [address] [address] FOLLOW UP AFTER CT SCANHematology/OncologyComment on above:1 YEAR FOLLOW UP AFTER CT SCANStart: 01-13-2026 End: 59-57-8461Hgjhgtp encounter aulvlcvwv38/09/2026 7:45 AM EDT Appointment Radiology Pet CT [address] [place] [address] CT CHEST AND NECKRadiology Pet CTComment on above:CT CHEST AND NECKStart: 01-10-2026 Screening for malignant neoplasm of lungLung Cancer ScreeningCl[facility] Hospital Start: 00-31-8173GDKYOIKR SCREENDIABETES SCREENCleveland Clinic Mentor Hospitaltart: 10-07-2025 End: 60-60-0578Modcdne encounter elxqdqlmb03/01/2025 11:20 AM EST Office Visit [facility] [place] [facility] [address] [facility] [address] [place] [address] Abram Fiore MD [address] [facility] [address] [place] [address] NOMS [place] OtolaryngologyStart: 08-28-2025 End: 47-27-7889Lwszqgq encounter cfdevagty84/22/2025 11:20 AM EDT Office Visit NOMTricia [facility]ardo [facility] [address] [facility] [address] [place] [address] Abram Fiore MD [address] [facility] [address] [place] [address] ArrivedNOMS [place] OtolaryngologyComment on above:ArrivedStart: 46-20-8667Cmmiwwadr vaccinationInfluenza Vaccine (Season Ended)[facility]: 72-90-7534Ororlopbc for malignant neoplasm of lung Lung Cancer ScreeningC[facility] Clinic [facility] Hospitaltart: 05-24-2025 End: 27-06-2678Zrnhqfeci C virus RNA [Units/volume] (viral load) in Serum or Plasma by PAULA with probe detectionHEPATITIS C RNA QUANTIFICATION BY PCR, PLASMA/SERUM Lab Routine Chronic hepatitis C without hepaticcoma (HCC) Expected: 05/24/2025 (Approximate), Expires: 08/23/2025[facility] Work Phone: comment on above:Expected: 05/24/2025 (Approximate), Expires: 08/23/2025Start: 64-72-9965Ueabiqomn for malignant neoplasm of lungLung Cancer ScreeningC[facility] Clinic [facility] Hospitaltart: 01-21-2025 End: 15-04-8722Jswvfh-up encounterHematology/OncologyComment on above:6 month follow up after CT scan6 month follow up after CT scan w/labsStart: 01-07-2025 End: 33-47-7985Oydoir-up yuemvadtm48/03/2025 8:30 AM EST Visit (SP) Office Hematology/Oncology [address] [place] [address] [place], [place] [phone] Wyatt Garza MD [address] [place] [id number] [address] up [address] scanHematology/OncologyComment on above:[address] scanStart: 12-31-2024 End: 50-04-7166Iutrlmg encounter cbovqufrj07/24/2025 8:45 AM EST Appointment Radiology Pet CT [address] [place] [address] [place] [address] CT CHEST AND NECKRadiology Pet CTComment on above:CT CHEST AND NECKStart: 12-30-2024 End: 79-84-3529YJA W Auto Differential panel - BloodCOMPLETE BLOOD COUNT AND DIFFERENTIAL Lab Routine History of head and neck cancer Lung nodules Expected: 12/30/2024 (Approximate), Expires: 06/29/2025[facility] ClinicComment on above: Expected: 12/30/2024 (Approximate), Expires: 06/29/2025Start: 12-30-2024 End: 63-54-3270Ocebxtfkdwxos metabolic 2000 panel - Serum or PlasmaCOMPREHENSIVE METABOLIC PANEL Lab Routine History of head and neck cancer Lung nodules Expected: 12/30/2024 (Approximate), Expires: 06/29/2025[facility] ClinicComment on above:Expected: 12/30/2024 (Approximate), Expires: 06/29/2025Start: 12-30-2024 End: 21-10-7122XP Chest W contrast IVCT CHEST W IVCON Radiology Routine History of head and neck cancer Lung nodules Expected: 12/30/2024 (Approximate), Expires: 07/29/2025[facility] ClinicComment on above:Expected: 12/30/2024 (Approximate), Expires: 07/29/2025Start: 12-30-2024 End: 82-02-0458EB Neck W contrast IVCT NECK SOFT TISSUE W IVCON Radiology Routine History of head and neck cancer Lung nodules Expected: 12/30/2024 (Approximate), Expires: 07/29/2025[facility] Work Phone: Comment on above:Expected: 12/30/2024 (Approximate), Expires: 07/29/2025Start: 78-87-7539EFYUCQWZ SCREENDIABETES SCREENCleveland Clinic Mentor Hospitaltart: 10-90-1320Hhyvfmblq for malignant neoplasm of lungLung Cancer ScreeningCleveland Clinic Mentor Hospitaltart: 12-13-2024 End: 61-35-6305Mxynj-1-Fetoprotein [Mass/volume] in Serum or PlasmaALPHA FETOPROTEIN Lab Routine Fatty liver Expected: 12/13/2024 (Approximate), Expires: 03/14/2025[facility] Work Phone: comment on above:Expected: 12/13/2024 (Approximate), Expires: 03/14/2025Start: 12-13-2024 End: 54-34-9000EM Abdomen RUQUS ABD RIGHT UPPER QUADRANT Radiology Routine Fatty liver Expected: 12/13/2024 (Approximate), Expires: 07/12/2025[facility] Comment on above:Expected: 12/13/2024 (Approximate), Expires: 07/12/2025Start: 44-08-6504Gvxrqml Directive DiscussionAdvance Directive DiscussionCleveland Clinic Mentor Hospitaltart: 09-13-2024 End: 66-19-3564Qmkhuxd encounter oecnqlsco44/07/2024 2:00 PM EST Office Visit [facility] [address] [place] [address] [facility] AUDStart: 08-23-2024 End: 99-48-6226Tfgtqwhz SupportNOPARKLAND HEALTH CENTER AUDComment on above:ArrivedStart: 07-23-2024 End: 77-93-8743Kskmjwa encounter procedureNOMS NICO JONESKComment on above: ArrivedStart: 07-10-2024 End: 81-10-6192Ycnhuvxh Zodpyjs8407/10/2024 1:30 PM EDT Clinical Support [facility] [address] [facility] [id number] Andreina Welch, [facility] [address] [facility] [place] [address] ArrivedNOPARKLAND HEALTH CENTER AUDComment on above:ArrivedStart: 07-08-2024 Covid-19 Vaccine ()Covid-19 Vaccine () [facility]: 35-61-0343Yecad-19 Vaccine ()Covid-19 Vaccine ()[facility]: 60-22-1005Ipgfkzizy vaccinationCleveland Clinic Mentor Hospitaltart: 06-30-2024 End: 51-08-4426PAB W Auto Differential panel - BloodCOMPLETE BLOOD COUNT AND DIFFERENTIAL Lab Routine History of head and neck cancer Lung nodules Expected: 06/30/2024 (Approximate), Expires: 03/30/2025[facility] ClinicComment on above: Expected: 06/30/2024 (Approximate), Expires: 03/30/2025Start: 06-30-2024 End: 33-70-6023Pjmwmqdtkxxie metabolic 2000 panel - Serum or PlasmaCOMPREHENSIVE METABOLIC PANEL Lab Routine History of head and neck cancer Lung nodules Expected: 06/30/2024 (Approximate), Expires: 03/30/2025levelSt. John of God HospitalComment on above:Expected: 06/30/2024 (Approximate), Expires: 03/30/2025Start: 06-30-2024 End: 69-49-2567PF Chest W contrast IVCT CHEST W IVCON Radiology Routine History of head and neck cancer Lung nodules Expected: 06/30/2024 (Approximate), Expires: [facility]/29/2025[facility] Work Phone: Comment on above:Expected: 06/30/2024 (Approximate), Expires: 04/29/2025Start: 06-29-2024 End: 01-71-0678Okdcka-up jfmnehmpc90/23/2024 11:15 AM EDT Visit (SP) Office Hematology/Oncology [address] [place] [address] Wyatt Garza MD [address] [address] 3 MONTH FOLLOW UP AFTER CTHematology/OncologyComment on above:3 MONTH FOLLOW UP AFTER CTStart: 06-22-2024 End: 06-57-1898Moiames encounter rmtuackab66/16/2024 7:45 AM EDT Appointment Radiology Pet CT [address] [address] CT CHEST W IVRadiology Pet CTComment on above:CT CHEST W IVStart: 05-28-2024 End: 14-88-6113Blhcbjj encounter qwwfhtbyh57/22/2024 2:30 PM EDT Appointment Radiology [address] [place], [place] [id number] no spl chkf [facility] [place] [place] 05/21 Abnormal LFTs [R79.89]RadiologyComment on above:no spl chkf g 05/21 Abnormal LFTs [R79.89]Start: 05-21-2024 End: 43-73-0035Sontlzzov C virus RNA [Units/volume] (viral load) in Serum or Plasma by PAULA with probe detectionHEPATITIS C RNA QUANTIFICATION BY PCR, PLASMA/SERUM Lab Routine Abnormal LFTs Chronic hepatitis C without hepatic coma (HCC) Expected: 05/21/2024 (Approximate), Expires: 08/20/2024[facility] Comment on above:Expected: 05/21/2024 (Approximate), Expires: 08/20/2024Start: 05-21-2024 End: 02-42-9676OB Abdomen RUQUS ABD RIGHT UPPER QUADRANT Radiology Routine Abnormal LFTs Chronic hepatitis C without hepatic coma (HCC) Expected: 05/21/2024 (Approximate), Expires: 06/16/2025[facility] Work Phone: comment on above:Expected: 05/21/2024 (Approximate), Expires: 06/16/2025Start: 01-30-2024 End: 90-15-2640GULIUZVCKY BLDCREATININE BLD Lab Routine Localized enlarged lymph nodes History of head and neck cancer Expected:01/30/2024, Expires: 01/17/2025 [facility] Work Phone: Comment on above:Expected: 01/30/2024, Expires: 01/17/2025Start: 01-30-2024 End: 23-67-3150RW Chest W contrast IVCT CHEST W IVCON Radiology Routine Localized enlarged lymph nodes History of head and neck cancer Expected: 01/30/2024, Expires: 01/17/2025[facility] Work Phone: Comment on above:Expected: 01/30/2024, Expires: 01/17/2025Start: 12-16-2023 End: 86-43-0610DEP W Auto Differential panel - BloodCBC + DIFF Lab Routine Lung nodules Expected: 12/16/2023 (Approximate), Expires: 12/16/2023[facility] Work Phone: Comment on above:Expected: 12/16/2023 (Approximate), Expires: 12/16/2023Start: 12-16-2023 End: 55-25-8312Lxiazwzcbaozl metabolic 2000 panel - Serum or PlasmaCOMP METABOLIC PANEL Lab Routine Lung nodules Expected: 12/16/2023 (Approximate), Expires: 12/16/2023[facility] Work Phone: Comment on above:Expected: 12/16/2023 (Approximate), Expires: 12/16/2023Start: 12-16-2023 End: 06-26-9254SM CHEST W IVCONCT CHEST W IVCON Radiology Routine Lung nodules Expected: 12/16/2023 (Approximate), Expires: 01/15/2024[facility] Work Phone: Comment on above:Expected: 12/16/2023 (Approximate), Expires: 01/15/2024Start: 12-16-2023 End: 89-19-3665Tb soft tissue neck w/contrast materialCT NECK SOFT TISSUE W IVCON Radiology Routine Lung nodules Expected: 12/16/2023 (Approximate), Expir es: 01/15/2024[facility] Work Phone: Comment on above:Expected: 12/16/2023 (Approximate), Expires: 01/15/2024Start: 50-64-2704Bwelpyuky vaccinationLUNG CANCER SCREENING [facility]: 96-40-9351Lmnnose Directive DiscussionAdvance Directive DiscussionCleveland Clinic [facility] Hospitaltart: 53-39-5653Ccaopfmgjq Health ScreeningBehavioral Health ScreeningCleveland Clinic Mentor Hospitaltart: 28-60-0088Uqjvmzbtkp Assessment Depression AssessmentCleveland Clinic [facility] Hospitaltart: 08-78-8985Mpcbi-19 Vaccine ()Covid-19 Vaccine ()[facility]: 99-65-2698Kknwlykiq vaccinationInfluenza Vaccine (#1)[facility]: 12-18-2022 End: 55-46-4082Pk thorax w/o contrast materialCT CHEST WO IVCON Radiology Routine Effects of radiation, sequela Head and neck cancer (HCC) Expected: 12/18/2022, Expires: 07/17/2023[facility] Work Phone: Comment on above:Expected: 12/18/2022, Expires: 07/17/2023Start: 73-81-1734Basfu depression screening assessmentDEPRESSION SCREENINGC[facility] Clinic [facility] Hospitaltart: 83-04-4699Asdhwmhnv vaccinationLUNG CANCER SCREENINGC[facility] Clinic [facility] Hospitaltart: 11-49-7519BZODBYM DIRECTIVE DISCUSSIONADVANCE DIRECTIVE DISCUSSIONCleveland Clinic [facility] Hospitaltart: 69-37-2524OPCVHFTGCA ASSESSMENT DEPRESSION ASSESSMENTCleveland Clinic [facility] Hospitaltart: 07-30-2022 End: 10-32-2964Dufjzkajv C virus RNA [Units/volume] (viral load) in Serum or Plasma by PAULA with probe detectionHCV QUANT RNA BY PCR Lab Routine Chronic hepatitis C with hepatic coma (HCC) Expected: 07/30/2022 (Approximate), Expires: 09/29/2022[facility] Work Phone: comment on above:Expected: 07/30/2022 (Approximate), Expires: 09/29/2022tart: 53-99-6591Fmcuyrgid vaccinationCleveland Clinic Ment[facility] Hospitaltart: 06-09-2022 End: 37-23-4380Eaitjzmndfb [Units/volume] in Serum or PlasmaTSH BLD Lab Routine Effects of radiation, sequela Expected: 06/09/2022, Expires: 08/09/2022[facility] Work Phone: Comment on above:Expected: 06/09/2022, Expires: 08/09/2022tart: 06-09-2022 End: 06-26-5632Orvjjnnsd (T4) [Mass/volume] in Serum or PlasmaT4/THYROXINE BLOOD Lab Routine Effects of radiation, sequela Expected: 06/09/2022, Expires: 08/09/2022[facility] Work Phone: Comment on above:Expected: 06/09/2022, Expires: 08/09/2022tart: 79-78-8435TOPBONV DIRECTIVE DISCUSSIONADVANCE DIRECTIVE DISCUSSIONCleveland Clinic [facility] Hospitaltart: 41-24-6184ADPKHXZPG AGE 65 AND OVER WITH 5YR LOOKBACK (#1)PNEUMOVAX AGE 65 AND OVER WITH 5YR LOOKBACK (#1)[facility] Start: 77-21-7133Rdzxincmc vaccinationINFLUENZA (#1)[facility]: 93-61-6927XVEEKVUWU B (1 of 3 - Risk 3-dose series)HEPATITIS B (1 of 3 - Risk 3- dose series)[facility]: 37-92-8663Kmswdewyl B Vaccine (1 of 3 - Risk 3-dose series)Hepatitis B Vaccine (1 of 3 - Risk 3-dose series)[facility] Start: 79-91-2582TRG Vaccine (1 - 1-dose 60+ series)RSV Vaccine (1 - 1-dose 60+ series)[facility]: 07-06-1708VAS Vaccine (1 - Risk 60-74 years 1-dose series)RSV Vaccine (1 - Risk 60-74 years 1-dose series)[facility]: 64-68-2719RGMAIXVI CANCER SCREENING DISCUSSIONPROSTATE CANCER SCREENING DISCUSSIONCleveland Clinic [facility] Hospitaltart: 60-34-3429Tevuibus specific antigen measurement Prostate Cancer Screening DiscussionCleveland Clinic Ment[facility] Hospitaltart: 27-39-9932DCFKLJEN VACCINE (1 of 2)SHINGRIX VACCINE (1 of 2)[facility]: 2001 COLOGUARD (FIT-DNA)COLOGUARD (FIT-DNA)[facility]: 2001 ColonoscopyCOLONOSCOPYC[facility] Clinic [facility] Hospitaltart: 22-86-1648JIFMEOGCPZ CANCER SCREENINGCOLORECTAL CANCER SCREENINGC[facility] Clinic [facility]tart: 81-85-7226ZF COLONOGRAPHYCT COLONOGRAPHYC[facility] Clinic [facility] Hospitaltart: 97-41-1732JQRIT OCCULT BLOOD FECAL OCCULT BLOODC[facility] Clinic [facility] Hospitaltart: 37-94-6821Dzlmqgjp specific antigen measurementProstate Cancer Screening DiscussionC[facility] Clinic [facility] Hospitaltart: 2001 Screening for malignant neoplasm of colonC[facility] Clinic [facility] Hospitalt[facility]: 2001 SIGMOIDOSCOPYSIGMOIDOSCOPYC[facility]: 38-15-5540Pjefp panelLipid ScreeningC[facility] Clinic [facility] Hospitaltart: 22-75-5244JUONC SCREENLIPID SCREENCleveland Clinic [facility]or Hospitaltart: 89-70-1927JTBSDNOMG B (1 of 3 - Risk 3-dose series)HEPATITIS B (1 of 3 - Risk 3-dose series)[facility]: 00-75-1876Ydsmmqqizqnj Vaccine: 50+ (1 of 2 - PCV)Pneumococcal Vaccine: 50+ (1 of 2 - PCV)[facility] Start: 21-47-2993WHAGBEJQ VACCINE (1 of 2)SHINGRIX VACCINE (1 of 2)[facility]: 44-88-7834Kiiej microalbumin profileCleUniversity Hospitals Cleveland Medical Centertart: 99-41-5318Ekmbgou ScreeningAnxiety ScreeningC[facility] Clinic [facility] Hospitaltart: 1974 Depression ScreeningDepression ScreeningC[facility] Clinic [facility] Hospitalt[facility]: 94-64-6734ANT SCREENINGHIV SCREENINGC[facility] Clinic [facility] Hospitaltart: 95-23-9976Bicmhjgipjhv Vaccine: 65+ (1 of 2 - PCV)Pneumococcal Vaccine: 65+ (1 of 2 - PCV)[facility]: 94-78-5366DUWTTYZPEFGX: 65+ (1 - PCV)PNEUMOCOCCAL: 65+ (1 - PCV)[facility] Start: 22-00-2797JDIRV-19 VACCINE (#1)COVID-19 VACCINE (#1)[facility] Start: 23-34-0357DBTPM-19 VACCINE (1)COVID-19 VACCINE (1)[facility]: 80-04-9894WFIGZ-19 VACCINE (#1)COVID-19 VACCINE (#1)[facility]: 73-01-7008QQBCDNJDW AORTIC ANEURYSM SCREENINGABDOMINAL AORTIC ANEURYSM SCREENING [facility]: 08-12-4021Gpbcyjtor aortic aneurysm screeningAbdominal Aortic Aneurysm ScreeningTogus VA Medical CenterXyhazrYqxlu-3-Zfnlqwtjeug [Mass/volume] in Serum or PlasmaALPHA FETOPROTEIN Lab Routine Fatty liver 01/10/2025 2:10 PM EST [facility] Work Phone: cT Chest W contrast IVCT CHEST W IVCON Radiology Routine History of head and neck cancer Lung nodules 01/10/2025 3:05 PM EST [facility] Work Phone: End: 34-40-6026TDXCJYY FUNCTION PNLHEPATIC FUNCTION PNL Lab Routine Hepatitis C antibody positive in blood Every 3 weeks for 2 Occurrences starting 01/26/2022 until 01/25/2023[facility] Work Phone: comrtbf on above:Every 3 weeks for 2 Occurrences starting 01/26/2022 until 01/25/2023 End: 62-63-2399Iniffnxey C virus RNA [Units/volume] (viral load) in Serum or Plasma by PAULA with probe detectionHCV QUANT RNA BY PCR Lab Routine Hepatitis C antibody positive in blood Every 3 weeks for 2 Occurrences starting 01/26/2022 until 01/25/2023[facility] Work Phone: comfhrh on above:Every 3 weeks for 2 Occurrences starting 01/26/2022 until 01/25/2023Liver ultrasound attenuation by transient elastographyDDI VIBRATION CONTROLLED TRANSIENT ELASTOGRAPHY (VCTE) Endoscopy Routine Fatty liver Ordered: 06/18/2024[facility] ClinicComment on above:Ordered: 06/18/2024Thyrotropin [Units/volume] in Serum or PlasmaTSH BLD Lab Routine Effects of radiation, sequela 06/17/2022 10:58 AM [facility] Work Phone: Thyroxine (T4) [Mass/volume] in Serum or Plasma T4/THYROXINE BLOOD Lab Routine Effects of radiation, sequela 06/17/2022 10:58 AM [facility] Work Phone: [facility] Immunizations Immunization DateImmunizationNotesCare ProviderFacilityNEGATED: Highlighted row has not occurred!01-44-2435gfrpsqxwg virus vaccine, unspecified formulation Sushil Edgar Jr. executive [facility] Payers DatePayer CategoryPayerPolicy [id number] (Managed Care) [id number] [id number] Health Insurance [id number] [id number] 2022Medicare [id number] 2022MedicaidMEDICAID [facility] [id number] 2021-Present [phone] [address] [place], [place] [id number] [id number] [id number] 16-22-5558Ulcxiuk Health [id number]-ypi36-60-6082Njwooyf [id number] 2.16.840.1.599653.3.579.2. [id number] 2.16.840.1.099359.3.57[id number] 2.16.840.1.861953.3.57[id number] 2.16.840.1.826570.3.57[id number] 2.16.840.1.844795.3.57[id number] 2.16.840.1.655336.3.57[id number] 2.16.840.1.586827.3.57[id number] 2.16.840.1.15[id number] 2.16.840.1.262143.3.579.2.531 Social History DateTypeDetailFacilityStart: 11-07-1971 End: 06-69-4824Kmywftx smoking status NHISSmokes tobacco dailyClinton Memorial Hospital Start: [birth year]-07-1971 End: 31-72-2854Hljwzur of tobacco useCigarette SmokerCleveland Clinic Mentor Hospitaltart: 10-13-2020 End: 89-88-0708Etkpjhgket smoked current (pack per day) - Hspfesra0Pppaybman ClinicStart: 10-13-2020 End: 12-08-1788Zxfigpy use and exposureUser of smokeless tobaccoClinton Memorial Hospital Start: 12-17-2021 End: 69-04-2064Rxevihb intakeCurrent drinker of alcohol (finding)[facility]: 85-99-6776Lyasjmf SDOH Alcohol CommentsociallyClevelatrium health [facility] Start: 01-09-2018 End: 58-26-5092Lxiwota Commentstarted 1972[facility]: 17-24-1829Rwc Assigned At BirthNot on fileCleveland Clinic Mentor Hospitaltart: 01-10-2022 End: 62-89-6524Ggztsucv to SARS-CoV-2 (event)Unable to assessClinton Memorial Hospital Start: 72-73-6257Urdnrid smoking statusLight tobacco smoker (finding)Executive [facility] start: 12-19-2023 End: 55-05-3832Oco Assigned At BirthMaleExatrium health [facility] start: 06-07-2022 End: 03-68-9289Aypefczw to SARS-CoV-2 (event)Not sureCleveland Clinic Mentor Hospitaltart: 21-54-2086Yotem Depression Screening Lsyructclv8Nfecjqyvz ClinicStart: 03-28-2023 End: 40-44-6006Htuenjw use and exposureSmokeless tobacco non-userNOMS Healthcare Start: 08-38-4224Cqbnkhc CommentSmokes 6-10 cigarettes/dayNOMS HealthcareStart: 67-14-5907Unteuos CommentCaffeine >4 cups/dayNOMS HealthcareStart: 07-20-2023 Alcoholic beverage intakeEx-drinker (finding)[facility] Healthcare Clinical Notes 12-16-2021 to 08-28-2025 Note Date & ThvdQeulPprpmsic89-95-3525 History of Present illness Narrative* Abram Fiore MD - 08/28/2025 11:20 AM EDT Images from the original note were not included. Subjective Patient ID: Carson Morse is a 69 y.o. 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 Chronic hepatitis C ([facility]) 08/28/2025 Closed fracture of ankle 08/28/2025 Closed fracture of distal end of right fibula 08/28/2025 Closed fracture of upper end of fibula 08/28/2025 COPD (chronic obstructive pulmonary disease) ([facility]) 08/28/2025 Diarrhea 08/28/2025 Dysphagia 08/28/2025 Erectile dysfunction 08/28/2025 Facial fracture ([facility]) 08/28/2025 Odynophagia 08/28/2025 Opioid abuse ([facility]) 08/28/2025 Leukocytosis 08/28/2025 Poisoning by unspecified narcotics, accidental (unintentional), initial encounter ([facility]) 08/28/2025 Recurrent falls 08/28/2025 Solitary pulmonary nodule [...] [2] Past Surgical History: Procedure Laterality Date MO LARYNGOSCOPY,DIRECT,DX,OP MICROSCOP 12/27/2017 [3] No Known Allergies [...] file prior to visit. documented in this encounterMercy Hospital St. LouisVrtpbgvxtn33-93-1109 History of Present illness Narrative* Wyatt Garza MD - 01/21/2025 11:40 AM EDT Images from the original note were not included. NAME: Carson Morse CLINIC NO.: [id number] DATE OF SERVICE: January 21, 2025 (Mirian) [...] organ systems. 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 Wyatt Garza MD, CPE Hematology and Oncology Services Provided at: [place], [place] CC: Elba De La Cruz MD [address] [address] Halima Nixon MD documented in this encounterClinton Memorial Hospital03-17-2025 NoteHNO ID: [id number] Author: WYATT GARZA MD Service: ? Author Type: Physician Type: Progress Notes Filed: 01/21/2025 11:32 Note Text: NAME: Carson Morse CLINIC NO.: [id number] DATE OF SERVICE: January 21, 2025 (Mirian) [...] January 21, 2025: Recovered (more content not included)...[facility]03-17-2025 Instructions* Patient Instructions* Wyatt Garza MD - 01/21/2025 11:[address] Neck Chest in 12 months Labs same day - include CBC, CMP RTC 1 week after with me to review documented in this encounterClinton Memorial Hospital03-14-2025 Telephone encounter Note * Telephone Encounter - Ivette Lala - 01/18/2025 12:31 PM EDT Unable to lvm and no mychart [facility]03-14-2025 Miscellaneous Notes* Telephone Encounter - Ivette [...] Thank you, NOLAN Meeks Noma, MD P [facility] Nurse [place] Normal AFP Patient is overdue for US He needs to schedule Halima Nixon MD documented in this encounterClinton Memorial Hospital03-14-2025 Telephone encounter Note * Telephone Encounter - Mary Villarreal RN - 01/18/2025 10:48 AM EDT Images from the original note were not included. Pt notified of results and recommendations and verbalized understanding. Schedulers, please call pt to schedule US, Fibroscan and OV. Orders are already placed. Thank you, NOLAN Meeks Noma, MD [facility] Nurse [place] Normal AFP Patient is overdue for US He needs to schedule Halima Nixon MD [facility] Work Phone: 1(859) 122-334003-06-2025 History of Present illness Narrative* Roxann Mcgregor [...] PATIENT PRESENTS WITH AN IMPLANTABLE OR ATTACHED WIND ENERGY TECHNICIAN: No RADIOLOGY DEPARTMENT: CT; Exam(s) Completed: Chest and Neck PERIPHERAL IV DATA: Site assessment: Clean,Dry and Intact, Site disposition Discontinued SIGNED BY: ANNABELLE Stewart) January 10, 2025 2:51 PM documented in this encounterClinton Memorial Hospital03-06-2025 NoteHNO ID: [id number] Author: SONJA MELGAR RT (R) Service: ? [...] PATIENT PRESENTS WITH AN IMPLANTABLE OR ATTACHED WIND ENERGY TECHNICIAN: No RADIOLOGY DEPARTMENT: CT; Exam(s) Completed: Chest and Neck PERIPHERAL IV DATA: Site assessment: Clean,Dry and Intact, Site disposition Discontinued SIGNED BY: ANNABELLE Stewart) January 10, 2025 2:51 [facility]03-06-2025 NoteHNO ID: [id number] Author: ROXANN MCGREGOR RN Service: ? Author [...] Morse DATE: January 10, 2025 TIME: 2:44 [facility]10-17-2024 History of Present illness Narrative* Andreina Welch, [facility] - 08/23/2024 11:15 AM EDT Hearing Aid Fitting: Pt fit with adFreeq [address] T aids coupled to [...] quicker. Taught pt how to use his load planner, how to use the rocker to changevolume, and how to change domes and filters. Pt has flip phone so he cannot use the luis manuel. Pt did notwant to wear the aids home so aids were put in the case. Made follow up appointment and completed HCS paperwork documented in this encounterMercy Hospital St. [id number] History of Present illness Narrative* Abram Fiore MD - 07/23/2024 9:00 AM EDT Subjective Patient ID: Carson Morse is a 68 y.o. 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 Benign prostatic hyperplasia without urinary obstruction 06/21/2023 Current smoker 06/21/2023 Hoarse voice quality 06/21/2023 Lung nodules 12/18/2020 Malignant neoplasm of head, face and neck ([facility]) 12/18/2020 Mucositis due to radiation therapy 02/27/2018 Myelosuppression 03/24/2018 Severe protein-calorie malnutrition ([facility]) 02/27/2018 Closed right maxillary fracture ([facility]) 07/20/2023 Resolved Ambulatory Problems Diagnosis Date Noted History of tongue cancer 06/21/2023 Nocturia 06/21/2023 Past Medical History: Diagnosis Date COVID-19 10/2021 SCC (squamous cell carcinoma) 12/27/2017 Past Surgical History: Procedure Laterality Date MO LARYNGOSCOPY,DIRECT,DX,OP MICROSCOP 12/27/2017 No Known Allergies Current [...] orders for this visit: Tongue cancer ([facility]) CADEN today documented in this encounterMercy Hospital St. 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 He will owe $250 to [facility]. Explained HCS process to pt and made HAF in 6 weeks documented in this encounterMercy Hospital St. [id number] Instructions* Patient Instructions* Svetlana Call - 06/29/2024 12:[address] Neck Chest in 12/2024 Labs same day - include CBC, CMP RTC 1 week after with me to review Pursue annual scans and visits after December 2024 documented in this encounterCl[facility]08[facility] History of Present illness Narrative* Wyatt Garza MD - 06/29/2024 11:15 AM EDT Images from the original note were not included. NAME: Carson Morse CLINIC NO.: [id number] DATE OF SERVICE: June 29, 2024 (Mirian) [...] organ systems. 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 Wyatt Garza MD, CPE Hematology and Oncology Services Provided at: [place], [place] Scribe Attestation: This note was scribed [...] CC: Elba De La Cruz MD [address] [facility] [address] Halima Nixon MD documented in this encounterClinton [facility] Hospital08-23-2024 NoteHNO ID: [id number] Author: WYATT GARZA MD Service: ? Author Type: Physician Type: Progress Notes Filed: 06/30/2024 21:51 Note Text: NAME: Carson Morse CLINIC NO.: [id number] DATE OF SERVICE: June 29, 2024 (Mirian) [...] he is getting o (more content not included)...[facility]08-16-2024 History of Present illness Narrative* Roxann [...] PATIENT PRESENTS WITH AN IMPLANTABLE OR ATTACHED WIND ENERGY TECHNICIAN: No RADIOLOGY DEPARTMENT: CT; Exam(s) Completed: Chest PERIPHERAL IV DATA: Site assessment: Clean,Dry and Intact, Site disposition Discontinued SIGNED BY: RT Terry(R) June 22, 2024 8:54 AM documented in this encounterClinton [facility] Hospital08-16-2024 NoteHNO ID: [id number] Author: SONJA MELGAR RT(R) Service: ? Author [...] PATIENT PRESENTS WITH AN IMPLANTABLE OR ATTACHED WIND ENERGY TECHNICIAN: No RADIOLOGY DEPARTMENT: CT; Exam(s) Completed: Chest PERIPHERAL IV DATA: Site assessment: Clean,Dry and Intact, Site disposition Discontinued SIGNED BY: ANNABELLE Stewart) June 22, 2024 8:54 [facility]08-16-2024 NoteHNO ID: [id number] Author: ROXANN MCGREGOR RN Service: ? Author [...] Intact SIGNATURE: Roxann Mcgregor RN PATIENT NAME: Carsno Morse DATE: June 22, 2024 TIME: 8:31 [facility]08-06-2024 Telephone encounter Note* Telephone Encounter - [...] Please review and sign Emily Hi RN [facility]08-06-2024 Miscellaneous Notes* Telephone Encounter - Emily [...] sign Emily Hi RN documented in this encounterClinton [facility] Hospital07-22-2024 History of Present illness Narrative* Melba [...] PATIENT PRESENTS WITH AN IMPLANTABLE OR ATTACHED WIND ENERGY TECHNICIAN: No RADIOLOGY DEPARTMENT: Ultrasound PERIPHERAL IV DATA: Not applicable SIGNED BY: Melba Ag RDMS May 28, 2024 1:49 PM documented in this encounterClinton [facility] Hospital07-22-2024 NoteHNO ID: [id number] Author: MELBA AG RDMS Service: Radiology Author Type: Pullman Conductor Type: Progress Notes Filed: 05/28/2024 13:57 Note [...] PATIENT PRESENTS WITH AN IMPLANTABLE OR ATTACHED WIND ENERGY TECHNICIAN: No RADIOLOGY DEPARTMENT: Ultrasound PERIPHERAL IV DATA: Not applicable SIGNED BY: Melba Ag RDMS May 28, 2024 1:49 [facility]07-18-2024 Telephone encounter Note* Telephone Encounter - Emily Armstrong RN - 05/24/2024 9:49 AM EDT ----- Message from Halima Nixon MD sent at 05/23/2024 2:56 PM EDT ----- Negative hep C RNA consistent with sustained response Repeat in one year Reviewed test results Pt read result message from Dr. Nixon via [employer]. Called and spoke to patient regarding test results and recommendation from Dr. Nixon Pt state dUS is sched for [facility] [place] Demonstrated understanding Dr. Lund, Orders submitted for repeat Hep C RNA Please review and sign Emily Hi RN [facility]07-18-2024 Miscellaneous Notes* Telephone Encounter - Emily Armstrong RN - 05/24/2024 9:49 AM EDT ----- Message from Halima Nixon MD sent at 05/23/2024 2:56 PM EDT ----- Negative hep C RNA consistent with sustained response Repeat in one year Reviewed test results Pt read result message from Dr. Nixon via [employer]. Called and spoke to patient regarding test results and recommendation from Dr. Nixon Pt state dUS is sched for [facility] [place] Demonstrated understanding Dr. Lund, Orders submitted for repeat Hep C RNA Please review and sign Emily Hi RN documented in this encounterClinton [facility] Hospital07-15-2024 Telephone encounter Note * Telephone Encounter - Emily Armstrong RN - 05/21/2024 10:14 AM EDT Called and updated pt on scheduling US Phone number provided for scheduling Also instructed to complete lab draw at [facility] facility Pt demonstrated understanding Emily Armstrong RN [facility]07-15-2024 Miscellaneous Notes* Telephone Encounter - Emily [...] orders, Emily Hi RN documented in this encounterClinton [facility] Hospital07-11-2024 Telephone encounter Note * Telephone Encounter - Emily Armstrong RN - 05/17/2024 3:56 PM EDT ----- Message from Halima Nixon MD sent at 05/17/2024 1:24 PM EDT ----- This patient needs RUQ US and HCV RNA ND Dr. Nixon, Please review and sign orders, Thanks, Emily Armstrong, RN [facility]05-24-2024 Instructions* Patient Instructions* Svetlana Rdz - 03/30/2024 2:[address] Chest with labs in 3 months RTC 1 week after to review documented in this encounterClinton [facility] Hospital05-24-2024 History of Present illness Narrative* Wyatt Garza MD - 03/30/2024 2:45 PM EDT Images from the original note were not included. NAME: Carson Morse CLINIC NO.: [id number] DATE OF SERVICE: March 30, 2024 (Mirian) [...] organ systems. 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 Wyatt Garza MD, CPE Hematology and Oncology Services Provided at: [facility], [place], [place] Scribe Attestation: This note was scribed [...] CC: Elba De La Cruz MD [address] [facility] [address] Halima Nixon MD documented in this encounterClinton [facility] Hospital05-24-2024 NoteHNO ID: [id number] Author: WYATT GARZA MD Service: ? Author Type: Physician Type: Progress Notes Filed: 04/01/2024 09:31 Note Text: NAME: Carson Morse CLINIC NO.: [id number] DATE OF SERVICE: March 30, 2024 (Mirian) [...] is going to tr (more content not included)...[facility]05-17-2024 History of Present illness Narrative* Sonja [...] PATIENT PRESENTS WITH AN IMPLANTABLE OR ATTACHED WIND ENERGY TECHNICIAN: No CREATININE: Creatinine Date Value Ref [...] contrast PATIENT DISCHARGED TO: Ambulatory patient, left [place] department area. A Diagnostic radioactive procedure has taken place, with no further precautions necessary other than routine body substance precautions. More information regarding radiation safety can be found usingthis link: [email or web address]%[email or web address]%20Medicine%[email or web address] SIGNATURE: RT Terry(Porter) PATIENT NAME: Carson Morse DATE: March 23, 2024 TIME: 9:22 AM PAGER/CONTACT #: documented in this encounterClinton [facility] Hospital05-17-2024 NoteHNO ID: [id number] Author: SONJA MELGAR RT(R) Service: ? Author [...] PATIENT PRESENTS WITH AN IMPLANTABLE OR ATTACHED WIND ENERGY TECHNICIAN: No CREATININE: Creatinine Date Value Ref [...] contrast PATIENT DISCHARGED TO: Ambulatory patient, left [place] department area. A Diagnostic radioactive procedure has taken place, with no further precautions necessary other than routine body substance precautions. More information regarding radiation safety can be found using this link: [email or web address] 20Diagnostic%20Nuclear%20Medicine%20Procedures.pdf SIGNATURE: RT Terry(R) PATIENT NAME: Carson Morse DATE: March 23, 2024 TIME: 9:22 AM PAGER/CONTACT #:[facility]02-12-2024 Miscellaneous Notes* Telephone Encounter - Zeny Tom RN - 12/19/2023 12:17 PM EST Pt informed of [employer]'s message and denies any questions, needs or concerns at this time.(Pt had appt today with Frankie and discussed) Appointments verified. Zeny Tom RN * Telephone Encounter - Zeny Tom RN - 12/19/2023 12:17 PM EST ----- Message from Wyatt Garza MD sent at 12/17/2023 8:59 AM EST ----- Scans are stable - I will discuss at his appointment. documented in this encounterClinton Memorial Hospital02-12-2024 Instructions* Patient Instructions* Svetlana Rdz - 12/19/2023 10:[address] Chest in 6 weeks RTC 1 week after to review If CT Chest clear then pursue routine annual visits documented in this encounterClinton Memorial Hospital02-12-2024 History of Present illness Narrative* Wyatt Garza MD - 12/19/2023 10:30 AM EST Images from the original note were not included. NAME: Carson Morse CLINIC NO.: [id number] DATE OF SERVICE: December 19, 2023 (Mirian) [...] organ systems. 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 Updated Visit, June 19, 2020: [...] which included preparing to see the patient, eaja-xd-gkkk patient care, completing clinical documentation, performing a medically appropriate examination, counseling and educating the patient/family/caregiver, ordering medications, tests, or procedures, independently interpreting results (not separately reported), communicating results to the patient/family/caregiver, and care coordination (not separately reported). Wyatt Garza MD, CPE Hematology and Oncology Services Provided at: [facility], [place], [place] Scribe Attestation: This note was scribed [...] Elba De La Cruz MD [address] [facility] [address] Halima Nixon MD documented in this encounterClinton [facility] Hospital02-09-2024 History of Present illness Narrative* Roxann [...] 16, 2023 10:54 AM documented in this encounterClinton [facility] Hospital02-21-2023 NotePROCEDURE: XR ANKLE RT MIN 3 [...] Electronically authenticated by: DARRELL SPRING Date: 2022-12-28 07:42[facility]02-09-2023 Instructions* Patient Instructions* Wyatt Garza MD - 12/16/2022 11:[address] Neck Chest in 12 months labs same day Labs in 1 year with scans include CBC, CMP RTC in 12 months with me to review Patient to continue follow up with Dr. Leon RAWLS documented in this encounterClinton [facility] Hospital02-09-2023 History of Present illness Narrative* Wyatt Garza MD - 12/16/2022 11:18 AM EST Images from the original note were not included. NAME: Carson Morse CLINIC NO.: [id number] DATE OF SERVICE: December 17, 2021 Some [...] organ systems. 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 Wyatt Garza MD, [place], [place] CC: Wyatt Garza MD [address] [place] [address] [place] [address] Elba De La Cruz MD [address] [facility] [address] Halima iNxon MD documented in this encounterClinton [facility] Hospital02-08-2023 History of Present illness Narrative* Jazmine [...] 15, 2022 9:40 AM documented in this encounterClinton [facility] Hospital09-09-2022 History of Present illness Narrative* Bhavya Cohen RPh - 07/16/2022 1:59 PM EDT Medication(s): Epclusa Total duration of treatment: 12 weeks Estimated Start Date: 01/23 Estimated Completion Date: 04/17 Estimated SVR 07/10/22 Due for SVR12 lab at this time. Bhavya Cohen RPh Clinical Pharmacist, Hepatology and Biologics [facility] P: ; F: Pool: P CC SPEC GROUP 2 ([id number]) documented in this encounterClinton [facility] Hospital08-11-2022 History of Present illness Narrative* G [...] MD cc: Elba De La Cruz MD [address] [place] [id number] Timmis documented in this encounterClinton [facility] Hospital08-03-2022 Miscellaneous Notes* Telephone Encounter - Tory Self RN - 06/09/2022 1:32 PM EDT Please sign pended labs for upcoming visit. Tory Self RN documented in this encounterClinton Memorial Hospital06-09-2022 History of Present illness Narrative* Ruddy Gaffney - 04/15/2022 2:39 PM EDT [facility] Visit Assessment - Hepatology: [...] provider regarding future tests. Ruddy Gaffney CPhT [facility] documented in this encounterClinton [facility] Hospital05-31-2022 Hospital Discharge instructions Patient Education 04/06/2022 [...] Follow these instructions at home: Medicines Take stwx-lkk-phrwfur and prescription medicines only as told by [...] or the blood stops without treatment. Take ydmj-oto-cfjwypv and prescription medicines only as told by your health care provider. Drink enough fluid to keep your urine clear or pale yellow. This information is not intended to replace advice given to you by your health care provider. Make sure you discuss any questions you have with your health care provider. Document Released: 10/24/2006 Document Revised: 03/19/2020 Document Reviewed: 11/26/2017 [employer] Patient Education 2019 [employer]. Follow Up Care 08/27/2021 11:36:33 With:Herve Flores MD, Sushil Degroot URO Address: [facility] [address] , [place] [address]- When:04/06/2023 Comments:w/fátima [facility] 05-16-2022 Miscellaneous Notes* Telephone Encounter - Raquel [...] RNA in 3 months documented in this encounterClinton Memorial Hospital05-05-2022 History of Present illness Narrative* Ruddy [...] Will proceed with refill with no changes. [facility] Visit Assessment - Hepatology: Is pre-assessment?: No Is initial or refill assessment?: Yes Assessment to use: Refill Non-Clinical Assessment: Patient confirmed: Yes Med/dose confirmed: Yes Supplies needed: N/A Missed doses: No Estimated days supply on hand: 10 Next cycle/dose due: 03/12/2022 Copay amount: 0 Payment confirmed: Yes Address confirmed: Yes Delivery method: FedEx Delivery address: [address] [place] [id number] Delivery date: 03/15/2022 Patient has questions: No [...] if on ribavirin: N/A Ruddy Gaffney CPhT Bed Teacher, Inflammatory & Neurology [facility] documented in this encounterClinton [facility] Hospital04-07-2022 History of Present illness Narrative* Ruddy Gaffney - 02/11/2022 1:31 PM EDT [facility] Special[facility] Refill Assessment Medication(s): Epclusa (2 of 3) Total duration of treatment: 12 weeks Estimated Start Date: 01/23 Estimated Completion Date: 04/17 Estimated SVR 07/10/22 Labs have been ordered but not yet collected. Goal remains to complete full treatment. Unable to assess compliance although patient does not report missed doses. Bhavya Cohen RPh Clinical Pharmacist, Hepatology and Biologics [facility] P: ; F: Pool: P CC SPEC GROUP 2 ([id number]) Therapy continues to be appropriate for disease, patient response, and medical condition. Verification of therapeutic benefit and effectiveness with current therapy. Adverse events, barriers in adherence, and side effects assessed and addressed. Will proceed with refill with no changes. [facility] Visit Assessment - Hepatology: Is pre-assessment?: No Is initial or refill assessment?: Yes Assessment to use: Refill Non-Clinical Assessment: Patient confirmed: Yes Med/dose confirmed: Yes Supplies needed: N/A Missed doses: No Estimated days supply on hand: 8 Next cycle/dose due: 02/12/2022 Copay amount: 0 Payment confirmed: Yes Address confirmed: Yes Delivery method: FedEx Delivery address: [address] [place] [address] Delivery date: 02/15/2022 Patient has questions: No Refill Assessment: Concurrent med therapy screening: Yes Adverse reactions and mitigation: Yes Hepatitis C RNA level at 12 weeks after end of therapy with additional testing as clinically indicated: Yes Hepatic function panel, eGFR: Yes CBC after 2 weeks if on ribavirin: N/A Ruddy Gaffney documented in this encounterClinton [facility] Hospital03-24-2022 Miscellaneous Notes* Telephone Encounter - Raquel [...] this encounter. Bhavya Hi documented in this encounterClinton Memorial Hospital02-09-2022 History of Present illness Narrative* Jazmine [...] 16, 2021 8:33 AM documented in this encounterClinton Memorial HospitalEvaluation + Plan note Future Appointments Appointment Date:04/12/2023 08:00:00 AM Scheduled Provider:Sushil Edgar Jr., MD Location:[facility] Appointment Type:URO Office Visit Diagnostic Tests Pending * PSA Total 04/06/22 [facility] evaluation note* Diagnosis Hepatitis C antibody positive in blood- Primary documented in this encounter [facility]* Diagnosis Chronic hepatitis C without hepatic coma (HCC)- Primary Chronic hepatitis C without mention of hepatic coma [facility]* Diagnosis Effects of radiation, sequela- Primary [facility]* Diagnosis Effects of radiation, sequela- Primary Head and neck cancer (HCC) Malignant neoplasm of head, face, and neck [facility]* Diagnosis Chronic hepatitis C with hepatic coma (HCC)- Primary Chronic hepatitis C with hepatic coma [facility] this encounter [facility]* Diagnosis Malignant neoplasm of head, 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, face, and neck Lung nodules Other nonspecific abnormal finding of lung field Disorder of thyroid Unspecified disorder of thyroid [facility]* Diagnosis Localized enlarged lymph nodes- Primary Enlargement of lymph nodes Severe protein-calorie malnutrition (HCC) Other severe protein-calorie malnutrition Malignant neoplasm of head, 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, face, and neck History of head and neck cancer documented [facility]* Diagnosis History of head and neck cancer- Primary Lung nodules Other nonspecific abnormal finding of lung field [facility]* Diagnosis Chronic hepatitis C without hepatic coma (HCC)- Primary Chronic hepatitis C without mention of hepatic coma Abnormal LFTs Other abnormal blood chemistry [facility]* Diagnosis Chronic hepatitis C without hepatic coma (HCC)- Primary Chronic hepatitis C without mention of hepatic coma [facility]* Diagnosis Abnormal LFTs Other abnormal blood chemistry Chronic hepatitis C without hepatic coma (HCC) Chronic hepatitis C without mention of hepatic coma [facility] Diagnosis Fatty liver- Primary Other chronic nonalcoholic liver disease [facility]* Diagnosis History of head and neck cancer- Primary Lung nodules Other nonspecific abnormal finding of lung field [facility] this encounter [facility]* Diagnosis History of head and neck cancer Lung nodules Other nonspecific abnormal finding of lung field [facility]* Diagnosis Localized enlarged lymph nodes Enlargement of lymph nodes History of head and neck cancer [facility]* Diagnosis Lung nodules Other nonspecific abnormal finding of lung field documented in this encounter [facility]* Diagnosis Malignant neoplasm of head, 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, face, and neck Lung nodules Other nonspecific abnormal finding of lung field Disorder of thyroid Unspecified disorder of thyroid documented in this encounter [facility]* Diagnosis Sensorineural hearing loss (SNHL) of both ears- Primary documented in this encounter [facility] HealthcareEvaluation note* Diagnosis 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, unspecified site documented in this encounter [facility] HealthcareEvaluation note* Diagnosis Sensorineural hearing loss (SNHL) of both ears- Primary documented in this encounter [facility] HealthcareEvaluation note* Diagnosis History of head and neck cancer Lung nodules Other nonspecific abnormal finding of lung field Fatty liver Other chronic nonalcoholic liver disease documented [facility] this encounter [facility]* Diagnosis History of head and neck cancer- Primary Lung nodules Other nonspecific abnormal finding of lung field [facility] this encounter [facility]* Diagnosis Non-seasonal allergic rhinitis due to other allergic trigger- Primary Chronic sinusitis, unspecified location Tongue cancer (HCC) Malignant neoplasm of tongue, unspecified site Bilateral impacted cerumen Impacted cerumen documented in this encounter [facility] HealthcareHospital course Narrative No data available for this section [facility] reason for referral (narrative)* Diagnostic Procedure Only (Routine) - AuthorizedSpecialtyDiagnoses / ProceduresReferred By Contact Referred To [facility] Diagnoses Abnormal LFTs Chronic hepatitis C without hepatic coma (HCC) Procedures US ABD RIGHT UPPER QUADRANT US ABDOMINAL REAL [place] W/[place] [address] [place] [address] [place] [address] Referral IDStatusReasonStart DateExpiration DateVisits RequestedVisits [id number] Auto-Generated Referral / [facility] for referral (narrative)* Diagnostic Procedure Only (Routine) - ClosedSpecialtyDiagnoses / ProceduresReferred By ContactReferred To [facility] Diagnoses Abnormal LFTs Chronic hepatitis C without hepatic coma (HCC) Procedures US ABD RIGHT UPPER QUADRANT US ABDOMINAL REAL TIME W/IMAGE LIMITED Halima Nixon [place] [id number] [place] [address] [place] [address] Referral IDStatusReasonStart DateExpiration DateVisits RequestedVisits [id number] Auto-Generated Referral / [facility] ([facility])* Outpatient Procedure (Routine) - New RequestSpecialtyDiagnoses / ProceduresReferred By ContactReferred To [facility] [place] Diagnoses Fatty liver Procedures DDI VIBRATION CONTROLLED TRANSIENT ELASTOGRAPHY (VCTE) LIVER ELASTOGRAPHY W/O IMAG W/I&R Halima Nixon [place] [id number] [place] [phone] [facility] [address] [place], [place] [id number] Referral IDStatusReasonStart DateExpiration DateVisits RequestedVisits [id number] Request Auto-Generated Referral / * Diagnostic Procedure Only (Routine) - New RequestSpecialtyDiagnoses / ProceduresReferred By ContactReferred To [facility] Diagnoses Fatty liver Procedures US ABD RIGHT UPPER QUADRANT US ABDOMINAL REAL TIME W/[place] [address] [place] [address] [place] [address] Referral IDStatusReasonStart DateExpiration DateVisits RequestedVisits [id number] Request Auto-Generated Referral / [facility] Summary Purpose Family History No Family [...] COMPUTED TOMOGRAPHY THORAX W/CONTRAST Wyatt Garza MD [address] [place] [address] [address] [place] [id number] [place] [address] Referral IDStatusReasonStart DateExpiration DateVisits RequestedVisits [id number] Auto-Generated Referral [id number] / ProceduresReferred By ContactReferred To [facility] Diagnoses Malignant neoplasm of head, face and neck (HCC) Lung nodules Procedures CT NECK SOFT TISSUE W IVCON CT SOFT TISSUE NECK W/CONTRAST MATERIAL Wyatt Garza MD [address] [place] [address] [address] [place], [facility] [place] [address] Referral IDStatusReasonStart DateExpiration DateVisits RequestedVisits [id number] Auto-Generated Referral [id number] / ProceduresReferred By ContactReferred To [facility] Diagnoses History of head and neck cancer Lung nodules Procedures CT CHEST W IVCON DIAGNOSTIC COMPUTED TOMOGRAPHY THORAX W/CONTRAST Wyatt Garza MD [address] [place] [address] [place] [address] [place] [address] Referral IDStatusReasonStart DateExpiration DateVisits RequestedVisits [id number] Auto-Generated Referral [id number] / ProceduresReferred By ContactReferred To [facility] Diagnoses Localized enlarged lymph nodes History of head and neck cancer Procedures CT CHEST W IVCON DIAGNOSTIC COMPUTED TOMOGRAPHY THORAX W/CONTRAST Abhyankar, Wyatt, MD [address] [place] [address] [place] [address] Referral IDStatusReasonStart DateExpiration DateVisits RequestedVisits [id number] Auto-Generated Referral [id number] / ProceduresReferred By ContactReferred To [facility] Diagnoses Lung nodules Procedures CT NECK SOFT TISSUE W IVCON CT SOFT TISSUE NECK W/CONTRAST MATERIAL Wyatt Garza MD [address] [place] [address] Ct Imaging Referral IDStatusReasonStart DateExpiration DateVisits RequestedVisits [id number] Auto-Generated Referral [id number] / ProceduresReferred By ContactReferred To [facility] Diagnoses Lung nodules Procedures CT CHEST W IVCON DIAGNOSTIC COMPUTED TOMOGRAPHY THORAX W/CONTRAST Wyatt Garza MD [address] [place] [address] Ct Imaging Referral IDStatusReasonStart DateExpiration DateVisits RequestedVisits [id number] Auto-Generated Referral [id number] / ProceduresReferred By ContactReferred To [facility] Diagnoses Effects of radiation, sequela Head and neck cancer (HCC) Procedures CT CHEST WO IVCON DIAGNOSTIC COMPUTED TOMOGRAPHY THORAX W/O Marleni Calhoun MD [address] [place] [address] Ct Imaging Referral IDStatusReasonStart DateExpiration DateVisits RequestedVisits [id number] Review Auto-Generated Referral Additional Source Comments (unrecognized sect ion and content) No Status Records FoundNo Status Records FoundNo Status Records FoundNo Status Records FoundNo Status Records Found INFORMATION SOURCE (unrecogn ized section and content) DATE CREATED AUTHOR 03/20/2019 [facility] DATE CREATED AUTHOR AUTHOR'S ORGANIZ ATION 03/07/2023 [facility] DATE CREATED AUTHOR AUTHOR'S ORGANIZ ATION 03/17/2023 [facility] DATE CREATED AUTHOR AUTHOR'S ORGANIZ ATION 02/02/2025 [facility] DATE CREATED AUTHOR AUTHOR'S ORGANIZ ATION 08/30/2025 [facility] EPIC Source Comments (unrecognize d section and content) In the event this informatio n is protected by the Federal Confidentiality of Alcohol and Drug Abuse Patient Records regulations: The Federal rules restrict any use of the information to criminally investigate or prosecute any alcohol or drug abuse patient.[facility] HospitalIn the event this information is protected by the Federal Confidentiality of Alcohol and Drug Abuse Patient Records regulations: The Federal rules restrict any use of the information to criminally investigate or prosecute any alcohol or drug abuse patient.[facility] HospitalIn the event this information is protected by the Federal Confidentiality of Alcohol and Drug Abuse Patient Records regulations: The Federal rules restrict any use of the information to criminally investigate or prosecute any alcohol or drug abuse patient.[facility] HospitalIn the event this information is protected by the Federal Confidentiality of Alcohol and Drug Abuse Patient Records regulations: The Federal rules restrict any use of the information to criminally investigate or prosecute any alcohol or drug abuse patient.[facility] HospitalIn the event this information is protected by the Federal Confidentiality of Alcohol and Drug Abuse Patient Records regulations: The Federal rules restrict any use of the information to criminally investigate or prosecute any alcohol or drug abuse patient.[facility] HospitalIn the event this information is protected by the Federal Confidentiality of Alcohol and Drug Abuse Patient Records regulations: The Federal rules restrict any use of the information to criminally investigate or prosecute any alcohol or drug abuse patient.[facility] HospitalIn the event this information is protected by the Federal Confidentiality of Alcohol and Drug Abuse Patient Records regulations: The Federal rules restrict any use of the information to criminally investigate or prosecute any alcohol or drug abuse patient.[facility] HospitalIn the event this information is protected by the Federal Confidentiality of Alcohol and Drug Abuse Patient Records regulations: The Federal rules restrict any use of the information to criminally investigate or prosecute any alcohol or drug abuse patient.[facility] HospitalIn the event this information is protected by the Federal Confidentiality of Alcohol and Drug Abuse Patient Records regulations: The Federal rules restrict any use of the information to criminally investigate or prosecute any alcohol or drug abuse patient.[facility] HospitalIn the event this information is protected by the Federal Confidentiality of Alcohol and Drug Abuse Patient Records regulations: The Federal rules restrict any use of the information to criminally investigate or prosecute any alcohol or drug abuse patient.[facility] HospitalIn the event this information is protected by the Federal Confidentiality of Alcohol and Drug Abuse Patient Records regulations: The Federal rules restrict any use of the information to criminally investigate or prosecute any alcohol or drug abuse patient.[facility] HospitalIn the event this information is protected by the Federal Confidentiality of Alcohol and Drug Abuse Patient Records regulations: The Federal rules restrict any use of the information to criminally investigate or prosecute any alcohol or drug abuse patient.[facility] HospitalIn the event this information is protected by the Federal Confidentiality of Alcohol and Drug Abuse Patient Records regulations: The Federal rules restrict any use of the information to criminally investigate or prosecute any alcohol or drug abuse patient.[facility] HospitalIn the event this information is protected by the Federal Confidentiality of Alcohol and Drug Abuse Patient Records regulations: The Federal rules restrict any use of the information to criminally investigate or prosecute any alcohol or drug abuse patient.[facility] HospitalIn the event this information is protected by the Federal Confidentiality of Alcohol and Drug Abuse Patient Records regulations: The Federal rules restrict any use of the information to criminally investigate or prosecute any alcohol or drug abuse patient.[facility] HospitalIn the event this information is protected by the Federal Confidentiality of Alcohol and Drug Abuse Patient Records regulations: The Federal rules restrict any use of the information to criminally investigate or prosecute any alcohol or drug abuse patient.[facility] HospitalIn the event this information is protected by the Federal Confidentiality of Alcohol and Drug Abuse Patient Records regulations: The Federal rules restrict any use of the information to criminally investigate or prosecute any alcohol or drug abuse patient.[facility] HospitalIn the event this information is protected by the Federal Confidentiality of Alcohol and Drug Abuse Patient Records regulations: The Federal rules restrict any use of the information to criminally investigate or prosecute any alcohol or drug abuse patient.[facility] HospitalIn the event this information is protected by the Federal Confidentiality of Alcohol and Drug Abuse Patient Records regulations: The Federal rules restrict any use of the information to criminally investigate or prosecute any alcohol or drug abuse patient.[facility] HospitalIn the event this information is protected by the Federal Confidentiality of Alcohol and Drug Abuse Patient Records regulations: The Federal rules restrict any use of the information to criminally investigate or prosecute any alcohol or drug abuse patient.[facility] HospitalIn the event this information is protected by the Federal Confidentiality of Alcohol and Drug Abuse Patient Records regulations: The Federal rules restrict any use of the information to criminally investigate or prosecute any alcohol or drug abuse patient.[facility] HospitalIn the event this information is protected by the Federal Confidentiality of Alcohol and Drug Abuse Patient Records regulations: The Federal rules restrict any use of the information to criminally investigate or prosecute any alcohol or drug abuse patient.[facility] HospitalIn the event this information is protected by the Federal Confidentiality of Alcohol and Drug Abuse Patient Records regulations: The Federal rules restrict any use of the information to criminally investigate or prosecute any alcohol or drug abuse patient.[facility] HospitalIn the event this information is protected by the Federal Confidentiality of Alcohol and Drug Abuse Patient Records regulations: The Federal rules restrict any use of the information to criminally investigate or prosecute any alcohol or drug abuse patient.[facility] HospitalIn the event this information is protected by the Federal Confidentiality of Alcohol and Drug Abuse Patient Records regulations: The Federal rules restrict any use of the information to criminally investigate or prosecute any alcohol or drug abuse patient.[facility] HospitalIn the event this information is protected by the Federal Confidentiality of Alcohol and Drug Abuse Patient Records regulations: The Federal rules restrict any use of the information to criminally investigate or prosecute any alcohol or drug abuse patient.[facility] HospitalIn the event this information is protected by the Federal Confidentiality of Alcohol and Drug Abuse Patient Records regulations: The Federal rules restrict any use of the information to criminally investigate or prosecute any alcohol or drug abuse patient.[facility] Reason for Visit (unrecogniz ed section and content) ReasonCommentsFollow UpReasonOnset DateCommentsSPP Hepatology - Medication Ssyfie8402/11/2022EpclusaReasonOnset DateComments[facility] - [facility] Jlwqhj4403/11/2022EpclusaReasonCommentsResultsReasonOnset Date[facility] - [facility]-up04/15/2022Epclusa - End of TreatmentReasonCommentsLab OrdersReasonCommentsHead and Neck CancerReasonOnset Date[facility] - [facility]-up07/16/2022Epclusa treatment completeReasonCommentsHead and Neck [...] 40-54 MIN EST PATIENT Wyatt Garza MD [address] [place] [address] [place] [address] Wyatt Garza MD [facility] [place] [address] Referral IDStatusReasonStart DateExpiration DateVisits RequestedVisits [id number] and Neck Cancer1 year follow upReasonCommentsRadiology USSpecialtyDiagnoses / ProceduresReferred By ContactReferred To [facility] Diagnoses Abnormal LFTs Chronic hepatitis C without hepatic coma (HCC) Procedures US ABD RIGHT UPPER QUADRANT US ABDOMINAL REAL TIME W/[place] [address] [place] [address] [place] [address] Referral IDStatusReasonStelmdale DateExpiration DateVisits RequestedVisits [id number] Auto-Generated Referral /[id number] and Neck Cancer3 month follow upReason CommentsRadiology CTSpecialtyDiagnoses / ProceduresReferred By ContactReferred To [facility] Diagnoses History of head and neck cancer Lung nodules Procedures CT CHEST W IVCON DIAGNOSTIC COMPUTED TOMOGRAPHY THORAX W/CONTRAST Wyatt Garza MD [address] [place] [address] Ct Imaging [facility] Referral IDStatusReasonStelmdale DateExpiration DateVisits RequestedVisits [id number] Auto-Generated Referral /[id number] / ProceduresReferred By ContactReferred To [facility] Diagnoses Localized enlarged lymph nodes History of head and neck cancer Procedures CT CHEST W IVCON DIAGNOSTIC COMPUTED TOMOGRAPHY THORAX W/CONTRAST Wyatt Garza MD [address] [place] [address] Ct Imaging [facility] Referral IDStatusReason[place] DateExpiration DateVisits RequestedVisits [id number] Auto-Generated Referral /[id number] CTSpecialtyDiagnoses / Procedures Referred By ContactReferred To [facility] Diagnoses Lung nodules Procedures CT NECK SOFT TISSUE W IVCON CT SOFT TISSUE NECK W/CONTRAST MATERIAL Wyatt Garza MD [address] [address] [place] [address] Referral IDStatusReasonStart DateExpiration DateVisits RequestedVisits [id number] Auto-Generated Referral [id number] / ProceduresReferred By ContactReferred To [facility] Diagnoses Malignant neoplasm of head, face and neck (HCC) Lung nodules Procedures CT NECK SOFT TISSUE W IVCON CT SOFT TISSUE NECK W/CONTRAST MATERIAL Wyatt Garza MD [address] [place] [address] [place] [address] Ct Imaging [place] [address] Referral IDStatusReasonStart DateExpiration DateVisits RequestedVisits [id number] Auto-Generated Referral [id number] CTSpecialtyDiagnoses / Procedures Referred By ContactReferred To [facility] Diagnoses Lung nodules Procedures CT CHEST W IVCON CAT SCAN OF CHEST CONTRAST Wyatt Garza MD [address] [place] [address] [place] [address] Ct Imaging [place] [address] Referral IDStatusReason[place] DateExpiration DateVisits RequestedVisits [id number] Auto-Generated Referral /[id number] yr cancer checkSpecialtyDiagnoses / ProceduresReferred By ContactReferred To [facility] Diagnoses History of head and neck cancer Lung nodules Procedures CT NECK SOFT TISSUE W IVCON CT SOFT TISSUE NECK W/CONTRAST MATERIAL Wyatt Garza MD [address] [place] [address] [place] [address] Phone: tel: fax: [facility] [place] [address] Referral IDStatusReason[place] DateExpiration DateVisits RequestedVisits [id number] Auto-Generated Referral /[id number] Up Tests ResultsLabs---->needs US, Fibroscan and OVReasonCommentsThroat ProblemThroat and ear clogged Care Teams (unrecognized sec tion and content) Team MemberRelationshipSpecialtyStart DateEnd Date Elba De La Cruz MD [address] [place] [address] PCP - GeneralFamily Practice01/04/18Team MemberRelationshipSpecialtyStart DateEnd Date Elba De La Cruz MD [address] [place] [address] PCP - GeneralFamily Practice01/04/18Team MemberRelationshipSpecialtyStart DateEnd Date Elba De La Cruz MD [address] [place] [address] PCP - GeneralFamily Practice01/04/18Team MemberRelationshipSpecialtyStart DateEnd Date Elba De La Cruz MD [address] [place] [address] PCP - GeneralFamily Practice01/04/18Team MemberRelationshipSpecialtyStart DateEnd Date Elba De La Cruz MD [address] [place] [address] PCP - GeneralFamily Medicine01/04/18Team MemberRelationshipSpecialtyStart DateEnd Date Elba De La Cruz MD [address] [place] [address] PCP - GeneralFamily Medicine01/04/18Team MemberRelationshipSpecialtyStart DateEnd Date [...] Elba De La Cruz MD [address] [place] [address] PCP - GeneralFamily Medicine03/15/23am MemberRelationshipSpecialtyStart DateEnd Date Elba De La Cruz MD [address] [place] [address] PCP - GeneralFamily Medicine03/15/23Team MemberRelationshipSpecialtyStart DateEnd Date Elba De La Cruz MD [address] [facility] [place] [address] PCP - GeneralFamily Medicine03/15/23Team MemberRelationshipSpecialtyStart DateEnd Date Elba De La Cruz MD [address] [facility] [place] [address] PCP - GeneralFamily Medicine03/15/23Team MemberRelationshipSpecialtyStart DateEnd Date Elba De La Cruz MD PCP - GeneralFamily Medicine01/04/18Team MemberRelationshipSpecialtyStart DateEnd Date Elba De La Cruz MD PCP - GeneralFamily Medicine01/04/18Team MemberRelationshipSpecialtyStart DateEnd Date Elba De La Cruz MD PCP - GeneralFamily Medicine01/04/18Team MemberRelationshipSpecialtyStart DateEnd Date Elba De La Cruz MD [address] [facility] [place] [address] PCP - GeneralFamily Pelovdmh82/16/25Team MemberRelationshipSpecialtyStart Date End Date Elba De La Cruz MD [address] [facility] [place] [address] PCP - GeneralFamily Cjhqsuct47/16/25 FOR RECORDS PERTAINING TO PATIENTS WHO ARE [...] BE BASED ON THE PRIMARY CLINICAL RECORDS. [facility] [employer] [facility] provides no warranty or guarantee of the accuracy or completeness of information in this document.
--- OUTSIDE RECORDS SUMMARY | 2025-09-05 06:47 | XMS_ITS | Clinical Summary ---
Author Organization [facility] Healthcare Address [address] [place] [address] Care Team Providers Care Oven Baker Name Role Phone Bird Crouch MD Primary [...] Active Problems ProblemNoted DateDiagnosed DateAlcohol abuse08/28/2025lcoholic polyneuropathy 08/28/20252346Tzxircdfxx88/22/2025rthropathy associated with neurological disorder 08/28/2025hronic hepatitis 08/28/2025losed fracture of ankle08/28/2025losed fracture of distal end of right xfykti0408/28/2025losed fracture of upper end of sgljnw2108/28/2025OPD (chronic obstructive pulmonary disease)08/28/2025 Overview (08/28/2025): COPD UNSPECIFIED.This condition was first identified on :2025-07-17 ,Rendering provider NPI :[id number] Udywbajq53/22/7396Nwgfrglms54/22/2025Erectile fhjeyvoasug54/22/2025Facial cwaknoqh93/22/7111Dwisgrwsqya71/22/2025Opioid abuse08/28/2025 Overview (08/28/2025): OPIOID ABUSE UNCOMPLICATED ,Rendering provider NPI :[id number] Mlyfvpzficit37/22/2025Poisoning by unspecified narcotics, accidental (unintentional), initial yjoktzdlk96/22/2025 Overview (08/28/2025): POISON UNS NARCOTIC ACC INITIAL ENC.This condition was first identified on :2024-02-24 Recurrent falls08/28/2025Solitary pulmonary pejyfy9808/28/2025Unsteady gait 08/28/2025losed right maxillary ylwclcnw95/13/2023enign prostatic hyperplasia without urinary iiasyhpgxms98/15/2023urrent pyfxdr4806/21/2023Hoarse voice ahqzwmv3906/21/20235814Toxtuhwrlouo97/11/2023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/ Overview (06/21/2023): Diagnosed 12/27/17. T4a N1 Mo SCCA right tongue base. Radiation completed. Tongue nhzwka2703/17/2023orphyria cutanea tarda03/17/2023Lung exczfsf4912/18/2020 Malignant neoplasm of head, face and neck12/18/20207561Keeudlfhgixvoduj91/18/2018 Mucositis due to radiation wnrtybt9902/27/2018Severe protein-calorie malnutrition (HHS-HCC)02/27/2018 Overview (06/21/2023): 17% unintentional weight loss in one month (02/27/18) Signed by: Selam Bullard RDN, LD [phone] Resolved Problems ProblemNoted DateDiagnosed DateResolved DateHistory of tongue cefhbb0206/21/2023 06/21/20236430Alodtwgh74 Encounters DateTypeDepartmentCare LmbeVplzdrcbuiq37/22/2025 11:20 AM EDTOffice Visit [facility] [place] [facility] [address] [facility] [address] [place] [address] Kelly Pulliam MD Non-seasonal allergic rhinitis due to other allergic trigger (Primary Dx); Chronic sinusitis, unspecified location; Tongue cancer (HCC); Bilateral impacted cerumen; Chronic pansinusitis; Chronic maxillary twsitdijv88/22/2025amboo flowsheet [facility] [address] [facility] [address] [place] [address] Kelly Pulliam MD 08/28/2025Travelfrom Last 3 Months Family History Medical HistoryRelationNameCommentsStrokeDaughterDiabetesFatherDiabetesMother StrokeMotherMelanomaNeg HxRelationNameStatusCommentsDaughterAliveFatherDeceased MotherDeceased Social History Tobacco UseTypesPacks/DayYears UsedDateSmoking Tobacco: Every DayCigarettes0.5 53.8Started: 1972Smokeless Tobacco: Never Tobacco Cessation:Ready to Q uit: Not Asked; Counseling Given: Not Answered Comments:Smokes 6-10 cigarettes/day Alcohol UseStandard Drinks/WeekCommentsYes8 (1 standard drink = 0.6 oz pure alcohol)Caffeine >4 cups/daySex and Gender InformationValueDate RecordedSex Assigned at BirthNot on fileLegal BtgPkph2601/19/2023 8:14 PM EDTGender Identity Not on fileSexual OrientationNot on file Last Filed Vital Signs Vital SignReadingTime TakenCommentsBlood Qcifktdc692/9809/ 8:53 AM EDT Pulse--Temperature--Respiratory Rate--Oxygen Saturation--Inhaled Oxygen Concentration--Ezzwbz88.9 kg (143 lb)08/28/2025 11:16 AM WNCEasfbe780.1 cm (5' 5 )08/28/2025 11:16 AM EDTBody Mass Index23.81 11:16 AM EDT Plan of Treatment DateTypeDepartmentCare Team (Latest Contact Info)Obryxqeaoyy87/01/2025 11:20 AM ESTOffice Visit [facility] [place] [facility] [address] [facility] [address] [place] [phone] Kelly Pulliam MD [address] [facility] [address] [place] [address] 08/27/2026 11:20 AM EDTOffice Visit [facility] [place] [facility] [address] [facility] [address] [place] [phone] Kelly Pulliam MD [address] [facility] [address] [place] [address] Insurance Care Teams Team MemberRelationshipSpecialtyStart DateEnd Bird Crouch MD [address] [place] [address] PCP - GeneralFamily Fsqbgkrs46/16/25
--- OUTSIDE RECORDS SUMMARY | 2025-09-05 06:47 | XMS_ITS ---
Author Organization [facility] Address [address] [place], [place] [id number] Care Team Providers Care Carry Out Clerk Name Role Phone Bird Crouch MD Primary Care Provider [phone] Active Problems ProblemNoted DateDiagnosed DateMalignant neoplasm of head, face and neck 1Lung emisthq2712/18/20205176Sxteawuxupfpnbht34/18/2018Mucositis due to radiation zaxcqlc8802/27/2018Severe protein-calorie icgejntmjbuz96/23/2018 Overview (02/27/2018): 17% unintentional weight loss in [...]
--- OUTSIDE RECORDS SUMMARY | 2025-09-05 06:48 | XMS_ITS | Clinical Summary ---
Author Organization [facility] Address [address] [place] [address] Care Team Providers Care Food Safety Specialist Name Role Phone Bird Crouch MD Primary Care Provider [phone] Allergies No known active allergies Medications MedicationSigDispense QuantityRefillsLast FilledStart DateEnd DateStatus tamsulosin (FLOMAX) 0.4 mg Take 1 capsule by mouth every afternoon.4Active levoFLOXacin (LEVAQUIN) 750 mg tablet Take 750 mg by mouth once daily.Active Active Problems ProblemNoted DateDiagnosed DateMalignant neoplasm of head, face and neck 12/18/2020ung dltsgpp7612/18/20205035Amcwajhxzqytorhi86/18/2018Mucositis due to radiation hwjnmvm6602/27/2018Severe protein-calorie obrjghkrzcwt37/23/2018 Overview (02/27/2018): 17% unintentional weight loss in one month (02/27/18) Signed by: Selam Bullard RDN, 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Hoarse voice quality Family History Medical HistoryRelationCommentsStrokeDaughterDiabetesFatherDiabetesMotherStroke MotherColon CancerNo Family HistoryRelationStatusCommentsDaughterFatherDeceased MotherDeceased Social History Tobacco UseTypesPacks/DayYears UsedDateSmoking Tobacco: Every AfyDylpoimfjy202 Started: 03/04/1973; Last attempted to quit: 03/04/2018Smokeless Tobacco: Current Tobacco Cessation:Ready to Q uit: Not Asked; Counseling Given: Not Answered Comments:started 1971 Alcohol UseStandard Drinks/WeekCommentsYes0 (1 standard drink = 0.6 oz pure alcohol)sociallyPHQ-2AnswerDate RecordedPHQ-2 hgisc154rea Deprivation IndexAnswerDate RecordedNational Score (1-100), lower number is lower risk87 12/19/2023State Score (1-10), lower number is lower bsdr2984Data from: https://www.neighborhoodatlas.[facility]/. Last address used for gcycqjjswtq[address]12/19/2023Sex and Gender InformationValueDate Recorded Sex Assigned at BirthNot on fileLegal BlhAzww6401/04/2018 11:55 AM ESTGender IdentityNot on fileSexual OrientationNot on file Last Filed Vital Signs Vital SignReadingTime TakenCommentsBlood Yswggfcq155/8503 11:18 AM EDT whkyraiHesgp9190/17/2025 11:15 AM DOTLdicxzgpkio07.4 ??C (97.6 ??F)01/21/2025 11:15 AM EDTRespiratory Rkdu7998 11:15 AM EDTOxygen Kltzxfadoh74% 01/21/2025 11:15 AM EDTInhaled Oxygen Concentration--Kauidn71.5 kg (153 lb 3.5 oz)01/21/2025 11:15 AM XIQRuhzqj331.1 cm (5' 5 )01/21/2025 11:15 AM EDTBody Mass Index25.503 11:15 AM EDT Plan of Treatment DateTypeDepartmentCare Team (Latest Contact Info)Rvlbrzktoyd23/09/2026 7:45 AM EDTAppointment Radiology [address] CT [address] [place] [address] CT CHEST AND NECK01/20/2026 11:40 AM EDTVisit (SP) Office Hematology/Oncology [address] [place] [address] Wyatt Vela MD [address] [place] [address] [place] [address] [address] UP AFTER [address] SCANHealth MaintenanceDue DateLast DoneComments Abdominal Aortic Aneurysm Qdanyilcp25/05/1957Anxiety Mrbwuutjb91/05/1975 Depression Lkhxrwjne07/05/1975DTaP,Tdap,Td Vaccine (1 - Tdap)1975 Pneumococcal Vaccine: 50+ (1 of 2 - PCV)1975Lipid Qbyypgavb68/05/1992CT Hxdwdjlixckd19/05/2002Cologuard (FIT-DNA)11/11/20017545Kvvyhgrhgjf40/05/2002 Colorectal Cancer Fqxwlkfna00/05/2002Fecal Occult Blood2001Prostate Cancer Screening Eendmxhmxs61/05/5042Zwxehirslgnsi83/05/2002Shingrix Vaccine (1 of 2) 2006dvance Directive Nwvwiltitf25/01/2025Medicare Advantage Annual Wellness Visit11/07/2024ovid-19 Vaccine ( - 2024- season)2025Influenza Vaccine (#1)2025Diabetes Egpdbanba38/06/991751/04/2025, 06/22/2024, 12/16/2023, Additional history existsRSV Vaccine (1 - 1-dose 75+ series) 2031Hepatitis C HyizeecnpWyzvvztgj31/22/2024, 05/24/2024, 05/22/2024, Additional history exists Procedures Procedure NamePriorityDate/TimeAssociated DiagnosisCommentsCOMPREHENSIVE METABOLIC EHWQBMvivdkv47/06/2025 2:10 PM EST History of head and neck cancer Lung nodules HEPATITIS C VIRUS (HCV) RNA, QUANTITATIVE PCR, PLASMA/PRUXWXxgyqnx44/16/2024 9:58 AM EDT Abnormal LFTs Chronic hepatitis C without hepatic coma (HCC) from Last 3 Months or Most Recently Relevant to Health Maintenance Results * (ABNORMAL) COMPREHENSIVE METABOLIC PANEL (01/10/2025 2:10 PM EST)Component ValueRef RangeTest MethodAnalysis TimePerformed AtPathologist Signature Protein, Total6.86.3 - 8.0 g/dL01/10/2025 2:43 PM ESTNOR[facility] LABAlbumin4.43.9 - 4.9 g/dL01/10/2025 2:43 PM ESTNORTMUN[facility] LABCalcium, Total9.68.5 - 10.2 mg/dL01/10/2025 2:[address] [facility] LABBilirubin, Total0.60.2 - 1.3 mg/dL 01/10/2025 2:[address] [facility] LABAlkaline Ikqsvzyolup6293 - 113 U/L01/10/2025 2:[address] [facility] EMYXGQ2830 - 40 U/L01/10/2025 2:[address] [facility] LABALT8(L)10 - 54 U/L01/10/2025 2:[address] [facility] ZPSTojiwnr155(H)74 - 99 mg/dL01/10/2025 2:[address] [facility] LABComment: The [place] Diabetes Association (ADA) provides guidance [...] [place] Diabetes Association. Diabetes Care. 2016.39(Suppl 1). BUN99 - 24 mg/dL01/10/2025 2:[address] [facility] Creatinine0.68(L)0.73 - 1.22 mg/dL01/10/2025 2:[address] [facility] SNGMtapob718869 - 144 mmol/L01/10/2025 2:[address] [facility] LABPotassium3.73.7 - 5.1 mmol/L01/10/2025 2:43 PM EST [facility] WQRKsddnehk91699 - 107 mmol/L01/10/2025 2:43 PM [facility] SDSDH90041 - 30 mmol/L01/10/2025 2:43 PM [facility] LABAnion Nae609 - 15 mmol/L01/10/2025 2:43 PM [facility] LABEstimated Glomerular Filtration Rate 101>=60 mL/min/1.73m 01/10/2025 2:43 PM [facility] LABComment:Estimated Glomerular Filtration Rate (eGFR) is calculated [...] VolumeCollection TimeReceived TimeBloodBLOOD SPECIMEN / UnknownVenipuncture / Ptudimb9901/10/2025 2:10 PM EST01/10/2025 2:20 PM EST Narrative Authorizing ProviderResult TypeResult StatusViveberenice Vela MDLABORATORYFinal ResultPerforming OrganizationAddressCity/State/ZIP CodePhone Number [facility] [address] [place] [phone] * HEPATITIS C RNA QUANTIFICATION BY PCR, PLASMA/SERUM (05/22/2024 9:58 AM EDT) ComponentValueRef RangeTest MethodAnalysis TimePerformed AtPathologist SignatureHCV RNAHCV RNA not detected by PCR.HCV RNA not detected by PCR. TOY OSCAR 6800 05/23/2024 2:59 AM EDTCO[facility] LABSpecimen (Source) Anatomical Location / LateralityCollection Method / VolumeCollection Time Received TimeBloodBLOOD SPECIMEN / UnknownVenipuncture / Lzsples7705/22/2024 9:58 AM EDT05/22/2024 9:58 AM EDT Narrative [facility] - 05/23/2024 2:59 AM EDT The Linear Range of this assay is 15 IU/ml to 100,000,000 IU/ml Authorizing ProviderResult TypeResult StatusNosilvino Quintero MDLABORATORYFinal Result Performing OrganizationAddressCity/State/ZIP CodePhone Number [facility] [address] [facility] [address] [place] [address], from Last 3 Months or Most Recently Relevant to Health Maintenance Insurance Care Teams Team MemberRelationshipSpecialtyStart DateEnd Bird Crouch MD PCP - GeneralFamily Medicine01/04/18
--- OUTSIDE RECORDS SUMMARY | 2025-09-05 06:48 | XMS_ITS | Encounter Summary ---
Author Organization [facility] Address [address] [place] [address] Care Team Providers Care Informal Waiter/Waitress Name Role Phone Bird Crouch MD Primary Care Provider [phone] Encounter Details DateTypeDepartmentCare Team (Latest Contact Info)Bdrxpfqhivr70/22/2025Travel Social History Tobacco UseTypesPacks/DayYears UsedDateSmoking Tobacco: Every DayCigarettes0.5 53.8Started: 1972Smokeless Tobacco: Never Comments:Smokes 6-10 cigaret yoko/day Alcohol UseStandard Drinks/WeekCommentsYes8 (1 standard drink = 0.6 oz pure alcohol)Caffeine >4 cups/daySex and Gender InformationValueDate RecordedSex Assigned at BirthNot on fileLegal PyhBpuf0801/19/2023 8:14 PM EDTGender Identity Not on fileSexual OrientationNot on filedocumented as of this encounter Plan of Treatment DateTypeDepartmentCare Team (Latest Contact Info)Bjdfxrejvqw17/01/2025 11:20 AM ESTOffice Visit [facility] [place] [facility] [address] [place] [address] [place] [phone] Kelly Pulliam MD [address] [place] [address] [place] [address] 08/27/2026 11:20 AM EDTOffice Visit [facility] [place] [facility] [address] [place] [address] [place] [address] Kelly Pulliam MD [address] [facility] [address] [place] [address] documented as of this encounter Visit Diagnoses Not on filedocumented in this encounter Care Teams Team MemberRelationshipSpecialtyStart DateEnd Date Bird Crouch MD [address] [place] [address] PCP - GeneralFamily Meteucfv21/16/25documented as of this encounter
--- OUTSIDE RECORDS SUMMARY | 2025-09-05 06:48 | XMS_ITS | Encounter Summary ---
Author Organization [facility] Address [address] [place] [address] Care Team Providers Care District Or District Office Director Name Role Phone Bird Crouch MD Primary Care Provider [phone] Encounter Details DateTypeDepartmentCare Team (Latest Contact Info)Tieabaivadl33/22/2025amboo flowsheet [facility] [place] [facility] [address] [facility] [address] [place] [address] Kelly Pulliam MD [address] [facility] [address] [place], [place] [phone] Social History Tobacco UseTypesPacks/DayYears UsedDateSmoking Tobacco: Every DayCigarettes0.5 53.8Started: 1972Smokeless Tobacco: Never Comments:Smokes 6-10 cigaret yoko/day Alcohol UseStandard Drinks/WeekCommentsYes8 (1 standard drink = 0.6 oz pure alcohol)Caffeine >4 cups/daySex and Gender InformationValueDate RecordedSex Assigned at BirthNot on fileLegal WjfTgle6101/19/2023 8:14 PM EDTGender Identity Not on fileSexual OrientationNot on filedocumented as of this encounter Plan of Treatment DateTypeDepartmentCare Team (Latest Contact Info)Votlurmffbj85/01/2025 11:20 AM ESTOffice Visit [facility] [place] [facility] [address] [facility] [address] [place] [address] Kelly Pulliam MD [address] [facility] [address] [place], [place] [address] 08/27/2026 11:20 AM EDTOffice Visit [facility] [place] [facility] [address] [facility] [address] [place] [address] Kelly Pulliam MD [address] [facility] [address] [place] [address] documented as of this encounter Visit Diagnoses Not on filedocumented in this encounter Care Teams Team MemberRelationshipSpecialtyStart DateEnd Date Bird Crouch MD [address] [place] [phone] PCP - GeneralFamily Mtmfolme57/16/25documented as of this encounter
--- OUTSIDE RECORDS SUMMARY | 2025-09-05 06:48 | XMS_ITS | Patient Health Record ---
Author Organization [facility] in [place] Address [address] [place] [address] Care Team Providers Care Associate Software Developer Name Role Phone Maldonado De La Cruz Primary Care Provider [phone] Allergies No Known Allergies Results Component Value Reference Range Notes Blood Culture 2 Reviewed date:08/18/2025 08:34:10 PM Interpretation: Performing Lab: Notes/Report: [facility] , Blood Culture 2 See Below For Report Blood Culture 2 NG5D NO GROWTH AT 5 DAYS.^NO GROWTH AT 5 DAYS. Performing [facility] LBBlood Culture 1 Reviewed date:08/18/2025 08:34:10 PM Interpretation: Performing Lab: Notes/Report: [facility] ,Blood Culture 1See Below For Report Blood Culture 1 NG5D NO GROWTH AT 5 DAYS.^NO GROWTH AT 5 DAYS. Performing Lab:see [facility] LBWhite Blood Cells Reviewed date:08/20/2025 02:08:58 PM Interpretation: Performing Lab: Notes/Report: [facility] ,White Blood CellsSee Below For Report White Blood Cells White Blood CellsNone seen White Blood Cells Performing Lab:see noteLC - [facility] LBEpithelial Cells Reviewed date:08/20/2025 02:08:58 PM Interpretation: Performing Lab: Notes/Report: [facility] ,Epithelial CellsSee Below For Report Epithelial Cells Few Performing Lab:see noteLC - [facility] LBResult 1 Reviewed date:08/20/2025 02:08:58 PM Interpretation: Performing Lab: Notes/Report: [facility] ,Result 1See Below For Report Result 1 Few gram positive cocci Performing Lab:see noteLC - [facility] LBResult 2 Reviewed date:08/20/2025 02:08:58 PM Interpretation: Performing Lab: Notes/Report: [facility] ,Result 2See Below For Report Result 2 Few gram negative rods. Performing Lab:see note - [facility] LBResult 3 Reviewed date:08/20/2025 02:08:58 PM Interpretation: Performing Lab: Notes/Report: [facility] ,Result 3See Below For Report Result 3 Few gram variable cocci Performing [facility] LBResult 4 Reviewed date:08/20/2025 02:08:58 PM Interpretation: Performing Lab: Notes/Report: [facility] ,Result 4See Below For Report Result 4 ICE PLATFORM SUPERVISOR Performing Lab:see [facility] - [facility] LBGram Stain Evaluation Reviewed date:08/20/2025 02:08:58 PM Interpretation: Performing Lab: Notes/Report: [facility] ,Gram Stain EvaluationSee Below For Report Gram Stain Evaluation This specimen is of good quality and is acceptable for routine Gram Stain Evaluationbacterial culture. Gram Stain Evaluation This specimen is of good quality and is acceptable for routine Performing Lab:see [facility] LBLower Respiratory Culture Reviewed date:08/20/2025 02:08:58 PM [...] Trimethoprim/Sulfamethoxazole S F Organism: 8.3 Antibiotic Interpretation JOGRE Status AMOXICILLIN/CLAVULANIC ACID AMOXICILLIN/CLAVULANIC ACID S F [...] Piperacillin/Tazobactam Piperacillin/Tazobactam S F Lower Respiratory Culture(CLSI [id number]) Lower Respiratory Culture WILL FOLLOW O:ENTASB Isolated [...] Piperacillin/Tazobactam S F Lower Respiratory CulturePerformed at: - [facility] Lower Respiratory Culture WILL FOLLOW O:ENTASB [...] F Piperacillin/Tazobactam Piperacillin/Tazobactam S F Lower Respiratory [address] [place] [phone] Lower Respiratory Culture WILL FOLLOW O:ENTASB Isolated [...] Respiratory CultureLab Director: Roddy Strickland PhD, Phone: [phone] Lower Respiratory Culture WILL FOLLOW O:ENTASB Isolated [...] LC - [facility] LB SEE REPORT - Sales Operations Analyst Id information not found for OBX-specific manager sap legend CBC AUTO DIFF Reviewed date:09/04/2025 12:33:20 PM Interpretation: Performing Lab: Notes/Report: [facility] ,White Blood Count7.04.0-11.0 10 3/uLRed Blood Count4.234.70-6.10 10 6/uL Mwlbslvlyt06.714.0-18.0 g/uMYlfwizvrsw90.742.0-54.0 %Mean Corpuscular Mahyqt90.9 80.0-94.0 fLMean Corpuscular Rcumtpffgg30.425.9-34.0 pgMean Corpuscular HGB Conc 34.529.9-35.2 g/dLRed Cell Distribution Width13.511.0-15.0 %Platelet Belff380 150-450 10 3/uLMean Platelet Volume9.19.5-13.5 fLNeutrophils Percent Auto92.3 43.0-75.0 %Lymphocytes Percent Auto5.020.5-60.0 %Monocytes Percent Auto2.01.7- 12.0 %Eosinophils Percent Auto0.00.9-7.0 %Basophils Percent Auto0.30.2-2.0 % Immature Granulocytes Pct Auto0.40.0-0.5 %Neutrophils Absolute Auto6.51.4-6.5 10 3/uLLymphocytes Absolute Auto0.41.2-3.8 10 3/uLMonocytes Absolute Auto0.10.3-0.8 10 3/uLEosinophils Absolute Auto0.00.0-0.7 10 3/uLBasophils Absolute Auto0.00.0- 0.1 10 3/uLImmature Granulocytes Abs Auto0.030.00-0.03 10 3/uLPerforming Lab:see noteML - [facility] LBTSH Reviewed date:09/04/2025 12:33:20 PM Interpretation: Performing Lab: Notes/Report: [facility] ,Thyroid Stimulating Hormone1.0530.358-3.740 uIU/mLPerforming Lab:see noteML - [facility] LBT4 Reviewed date:09/04/2025 12:33:20 PM Interpretation: Performing Lab: Notes/Report: [facility] ,T4 Thyroxine9.104.50-12.10 ug/dLPerforming Lab:see noteML - [facility] LBPROF 14(COMP METB) Reviewed date:09/04/2025 12:33:20 PM Interpretation: Performing Lab: Notes/Report: [facility] ,Ruoeqz826039-818 mmol/LPotassium4.13.5-5.1 mmol/LGiixmsjk3553-141 mmol/LCarbon Cstnahg57.121.0-32.0 mmol/LAnion Gap14.3Hhyekpk74465-676 mg/dLBlood Urea Qlbexzro33.07.0-18.0 mg/dLCreatinine0.870.70-1.30 mg/dLEstimated GFR ( Kathryn>60>=60 mL/min/1.73m 2Estimated GFR (Non- Brianda>60>=60 mL/min/1.73m 2BUN Creatinine Ratio11.7Fhnlmbz68.18.5-10.1 mg/dLBilirubin Total0.80.2-1.0 mg/dLAspartate Amino Seyoyfdglxd8552-07 U/LAlanine Ifhtkwvgyrbqjwgb6714-31 U/L Alkaline Buqwgsploqe9046-707 U/LTotal Protein7.96.4-8.2 g/dLAlbumin Level4.13.4- 5.0 g/dLGlobulin3.8Albumin Globulin Ratio1.1Performing Lab:see noteML - [facility] LBLIPID PROFILE Reviewed date:09/04/2025 12:33:20 PM Interpretation: Performing Lab: Notes/Report: [facility] ,Dzwyslrkvrluq33<=150 mg/pBBkhrutbtgiw707<=200 mg/dLHDL Xrvbpahsden9382-69 mg/dL > or =60 mg/dl - LOW CARDIOVASCULAR RISK <40 mg/dl - HIGH CARDIOVASCULAR RISK LDL Cholesterol Obskpbzzmf47.0 <100 mg/dl OPTIMAL 100-129 mg/dl NEAR OR ABOVE OPTIMAL 130-159 mg/dl BORDERLINE HIGH 160-189 mg/dl HIGH >190 mg/dl VERY HIGH VLDL CHOLESTEROL6.6Chol HDL Ratio2.5 3.3 - 4.4 LOW RISK 4.4 - 7.1 AVERAGE RISK 7.1 - 11.0 MODERATE RISK >11.0 HIGH RISK Performing Lab:see noteML - [facility] LBFREE T3 Reviewed date:09/04/2025 12:33:20 PM Interpretation: Performing Lab: Notes/Report: [facility] ,Free T31.942.18-3.98 pg/mLPerforming Lab:see noteML - [facility] LB XR chest 2V Reviewed date:08/12/2025 02:32:35 PM Interpretation: Performing Lab: Notes/Report: Source Facility: [place] [address] [place] [address] XRay Report Signed Patient: ADELFO NOLAN MR#: [id number] : 1955 Acct:[id number] Age/Sex: 69 / M ADM Date: 08/12/25 Loc: LAB Attending Dr: Bird De La Cruz M.D. Ordering Physician: Bird De La Cruz M.D. Date of Service: 08/12/25 Procedure(s): XR chest 2V Accession Number(s): [id number] cc: Bird De La Cruz M.D. [place] [id number] Patient Name: ADELFO NOLAN MRN: [facility]:[id number] date: 1955 Sex: M Assigned Patient Location: LAB Current Patient Location: LAB Accession/Order Number: [id number] Exam Date: 08/12/2025 12:10 Report Date: 08/12/2025 13:30 At the request of: BIRD DE LA CRUZ MD Procedure: XR chest 2V Chest 2 views CLINICAL HISTORY: Mold Exposure COMPARISON: None FINDINGS: XR/XR chest 2V IMPRESSION: NO ACUTE CARDIOPULMONARY ABNORMALITY. Impression dictated by: Bubba Tay Jr., D.O. 08/12/2025 1:30 PM Dictation Location: [place] [address] Electronically authenticated by: [id number] Y Date: 08/12/2025 13:30 Dictated By: Bubba Tay M.D. Signed By: 08/12/252 DD/ 29 TD/TT: Title Curative Specialist:PSA SCREENING Reviewed date:09/04/2025 12:33:20 PM Interpretation: Performing Lab: Notes/Report: [facility] ,Prostate Specific Antigen Scrn0.65<=4.00 ng/mLPerforming Lab:see noteML - [facility] LBGLYCOHEMOGLOBIN A1C Reviewed date:09/04/2025 12:33:20 PM Interpretation: Performing Lab: Notes/Report: [facility] ,Glycohemoglobin A1C4.94.5-6.2 % ADA RECOMMENDED LIMIT 4.0 - 6.0 ADA THERAPEUTIC TARGET < 7.0 ACTION SUGGESTED > 7.0 Estimated Average Nbjbldv09Ipudoyhbjj Lab:see noteML - [facility] LB Reason For Referral No Information [...] the past year?Daily or almost daily (4 points)Qvraeq11QxmofdmohujiiwKofqoaqxPKAYI-X (Standard) Question Answer Notes Did you have a drink containing alcohol in the p ast year? 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61XA)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) Nondisplaced fracture of lateral malleolus of right fibula, subsequent encounter for closed fracture with nonunion (S82.64XK)ActiveconfirmedProblemClosed fracture of upper end of fibula (69529669)Other fracture of upper and lower end of right fibula, initial encounter for closed fracture (S82.831A)Activeconfirmed ProblemClosed fracture of ankle (62090800)Other fracture of unspecified lower leg, initial encounter for closed fracture (S82.899A)ActiveconfirmedProblemCOPD - Chronic obstructive pulmonary disease (23045260)COPD (chronic obstructive pulmonary disease) (J44.9)ActiveconfirmedProblemAlcohol abuse (84254144)Alcohol abuse (F10.10)ActiveconfirmedProblemDiarrhea (38124207)Diarrhea (R19.7)Active confirmedProblemDysphagia (85438769)Dysphagia (R13.10)ActiveconfirmedProblem Pancytopenia (700523131)Pancytopenia (D61.818)ActiveconfirmedProblemAlcoholism (9984645)Alcoholism (F10.20)ActiveconfirmedProblemRecurrent falls (868573935) Frequent falls (R29.6)ActiveconfirmedProblemUnsteady gait (26873124)Unsteady gait (R26.81)ActiveconfirmedProblemErectile dysfunction (disorder) (827476229) Impotence (N52.9)ActiveconfirmedProblemOpioid abuse (6732581)Narcotic abuse (F11.10)ActiveconfirmedProblemLeukopenia (85596345)Leukopenia (D72.819)Active confirmedProblemBenign prostatic hyperplasia (841074432)Prostate hypertrophy (N40.0)ActiveconfirmedProblemAnkle fracture (33847417)Ankle fracture (S82.899A) ActiveconfirmedProblemLaryngeal cancer (785077832)Laryngeal cancer (C32.9)Active confirmedProblemLeukocytosis (844769767)Elevated WBCs (D72.829)Activeconfirmed ProblemFacial fracture (S02.92XA)ActiveconfirmedProblemMalnutrition, calorie (863985860)Caloric malnutrition (E46)ActiveconfirmedProblemClosed fracture of malar AND/OR maxillary bones (64692917)Maxillary fracture, unspecified side, initial encounter for closed fracture (S02.401A)ActiveconfirmedProblemClosed fracture of distal right fibula (disorder) (83813154677425581)Closed fracture of distal end of right fibula with routine healing, unspecified fracture morphology, subsequent encounter (S82.831D)Activeconfirmed Vital Signs Temperature 97.6 degrees Fahrenheit 07/17/2025 Blood pressure guyvgorhw91 mm Hg09/03/20257016Keurpa54 in09/03/2025lood pressure grndhswi349 mm Hg09/03/20251417Peruup603 lbs1MI26.29 kg/m209/03/2025 Encounters Encounter Location Date Provider Diagnosis [facility] [address] [place] [address] 08/20/2025 Maldonado De La Cruz [facility] [place] [address] [facility] [place] [address]/04/2025Doug [facility] [place] [address]/10/2025[facility] [place] [address]/Doug [facility] [place] [address]/16/2025[facility] [place] [address]/04/2025Doug Hoy Mold [facility] Z77.120[facility] [place] [address]/04/2025[facility] [place] [address]/Doug HoySecondary malignant neoplasm of other specified sites C79.89 and Chronic viral hepatitis C B18.2 [facility] [place] [address] 03/07/2025Doug HoySecondary malignant neoplasm of other specified sites C79.89 ; Narcotic abuse F11.10 and Pancytopenia D61.818[facility] [address] [place] [address]/10/2025Doug HoyImpotence N52.9 ; Pancytopenia D61.818 ; Unsteady gait R26.81 ; Leukopenia D72.819 and Prostate hypertrophy N40.0[facility] [place] [address]/08/2025Doug HoyCOPD (chronic obstructive pulmonary disease) J44.9B[address] [address] 08/21/2025Doug HoyCOPD (chronic obstructive pulmonary disease) J44.9B[address] [address]/ Maldonado HoyAcute non-recurrent sinusitis, unspecified location J01.90 ; Nasal [...] N40.0)07/17/2025OPD (chronic obstructive pulmonary disease) (ICD-10 - J44.9)08/21/2025OPD (chronic obstructive pulmonary disease) (ICD-10 - J44.9)If not better -needs ct scan jnenkcg1409/03/2025ute non-recurrent sinusitis, unspecified location (ICD-10 - J01.90)Rest and drink more liquids, especially water. You may use a humidifier or vaporizer to help keep the drainage moist. Ejnn-ylp-qprnfbn Nasal Saline may help the stuffy and runny nose. Use Ibuprofen and or Tylenol as needed for fever, chills, body aches or pain. Children 5 years old should not be given kpek-yfd-jkcyxbf cough and cold medications such as guaifenesin and dextromethorphan. If you're over age 5, you may try gdov-lwk-ivjealc cold medications such as guaifenesin and dextromethorphan, [...] other specified sites (ICD-10 - C79.89)Sqyuamous cell xojkhg4608/12/2025Mold exposure (ICD-10 - Z77.120)03/07/2025Narcotic abuse (ICD-10 - [...] WO CON 09/03/2025 THYROID PANEL (T4/TSH/FREE T3) 5 THYROID PANEL [...] Date ANTH MEDICARE ADV PLAN [address] [place] [address] [id number] [id number] Adelfo Nolan Self - patient is the insured 3 MEDICAID [place] [address] OFF[place], [place] [id number] [phone], AnthonySelf - patient is the vkhcufm64 2022 Medical (General) History Medical History History ICD Code Closed fracture of distal en d of fibula, unspecified fracture morphology, unspecified laterality, initial encounter S82.839A fracture right maxillary sinus Alcohol abuseFrequent fallsLeukopeniamalnutritionOther fracture of upper and lower end of right fibula, subsequent encounter for closed fracture with routine sgvgulfY95.831DMaxillary fracture, right side, subsequent encounter for fracture with routine gqxhexzP79.40CDHistory of tongue pxzpqiP35.810DysphagiaSurgical History Surgery Date(Month/Year) Feeding tube placement at one time Hospitalization History Reason Date(Month/Year) Broken Right Ankle 07/2023 Falls 07/06/23
--- NOTE | 2025-09-05 07:10 | XR_ITS ---
The [address] [address] Patient Name: ADELFO NOLAN MRN: [id number] date: 1955 Sex: M Assigned Patient Location: LAB Current Patient Location: LAB Accession/Order Number: [id number] Exam Date: 09/05/2025 07:05 Report Date: 09/05/2025 07:27 At the request of: ABRAM FIORE MD Procedure: XR sinus min 3V 3 views of sinuses HISTORY: Chronic sinusitis. Rhinitis. No fluid levels are mucosal thickening of the sinuses. Bony structures unremarkable. XR/XR sinus min 3V IMPRESSION: No mucosal thickening or fluid levels of the sinuses. Impression dictated by: Vance Nino M.D. 09/05/2025 7:27 AM Dictation Location: [place] [address] Electronically authenticated by: [id number] Y Date: 09/05/2025 07:27
== END 2025-09-05 06:39 | disposition home or self-care (01) ==
LOC: LAB 06:44
PROVIDERS: PCP Family Medicine; Visit Provider Otolaryngology
DX: J30.89 Other allergic rhinitis (principal); J32.4 Chronic pansinusitis; J32.0 Chronic maxillary sinusitis
CPT/HCPCS: 36415; 70220; 82785; 86003

== ENCOUNTER 2025-09-11 07:50 | Outpatient (OUT) | payer MEDICARE, MEDICAID, SELFPAY ==
--- OUTSIDE RECORDS SUMMARY | 2025-08-28 10:20 | XMS_ITS | Encounter Summary ---
Author Organization [facility] Address [address] [place] [address] Care Team Providers Care Park Police Name Role Phone Bird Crouch MD Primary Care Provider [phone] Reason for Visit * ReasonCommentsThroat ProblemThroat and ear clogged Encounter Details DateTypeDepartmentCare Team (Latest Contact Info)Nkpnsizaznv74/22/2025 11:20 AM EDTOffice Visit [facility] [place] [facility] 112 [facility] [address] [place] [phone] Kelly Pulliam MD 112 [facility] [address] [place] [address] Non-seasonal allergic rhinitis due to other allergic trigger (Primary Dx); Chronic sinusitis, unspecified location; Tongue cancer (HCC); Bilateral impacted cerumen; Chronic pansinusitis; Chronic maxillary sinusitis Social History Tobacco UseTypesPacks/DayYears UsedDateSmoking Tobacco: Every DayCigarettes0.5 53.8Started: 1972Smokeless Tobacco: Never Comments:Smokes 6-10 cigaret yoko/day Alcohol UseStandard Drinks/WeekCommentsYes8 (1 standard drink = 0.6 oz pure alcohol)Caffeine >4 cups/daySex and Gender InformationValueDate RecordedSex Assigned at BirthNot on fileLegal HeqCucp4301/19/2023 8:14 PM EDTGender Identity Not on fileSexual OrientationNot on filedocumented as of this encounter Last Filed Vital Signs Vital SignReadingTime TakenCommentsBlood Pressure--Pulse--Temperature-- Respiratory Rate--Oxygen Saturation--Inhaled Oxygen Concentration--Ctbtni33.9 kg (143 lb)08/28/2025 11:16 AM FSFWtckyw087.1 cm (5' 5 )08/28/2025 11:16 AM EDTBody Mass Index23.810 11:16 AM EDTdocumented in this encounter Progress Notes * Kelly Pulliam MD - 08/28/2025 11:20 AM EDT Images from the original note were not included. Subjective Patient ID: Carson Morse is a 69 y.o. male who presents for Throat Problem (Throat and ear clogged ) Pt reports he recently moved to [place] and believes there is mold in his appartment. Has been c/o CROSS, congestion and rhinorrhea. States he molly been on abx 4 mo. 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 02/27/2018 Myelosuppression 03/24/2018 Severe protein-calorie malnutrition (HHS-HCC) 02/27/2018 Closed right maxillary fracture (CMS-HCC) 07/20/2023 Alcohol abuse 08/28/2025 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 Alcoholism (HCC) 08/28/2025 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 Chronic hepatitis C (HCC) 08/28/2025 Closed fracture of ankle 08/28/2025 Closed fracture of distal end of right fibula 08/28/2025 Closed fracture of upper end of fibula 08/28/2025 COPD (chronic obstructive pulmonary disease) (HCC) 08/28/2025 Diarrhea 08/28/2025 Dysphagia 08/28/2025 Erectile dysfunction 08/28/2025 Facial fracture (CMS-HCC) 08/28/2025 Odynophagia 08/28/2025 Opioid abuse ([facility]-HCC) 08/28/2025 Leukocytosis 08/28/2025 Poisoning by unspecified narcotics, accidental (unintentional), initial encounter ([facility]) 08/28/2025 Recurrent falls 08/28/2025 Solitary pulmonary nodule 08/28/2025 Unsteady gait 08/28/2025 Resolved Ambulatory Problems Diagnosis Date Noted History of tongue cancer 06/21/2023 Nocturia 06/21/2023 Past Medical History: Diagnosis Date COVID-19 10/2021 SCC (squamous cell carcinoma) 12/27/2017 Surgical History[2] Allergies[3] Medications Ordered Prior to Encounter[4] Objective Last Recorded Vitals There were no vitals filed for this visit. ENT Physical Exam Constitutional Appearance: patient appears well-developed and well-nourished, Ear Ear Canals: bilateral ear canals impacted cerumen observed; Oral Cavity/Oropharynx OC/OP comments: OC/OP/IDL - no mass or ulcer Neck Neck comments: Supple, FROM, No LAD Patient ID: Carson Morse is a 69 y.o. male. Procedures Cerumen was removed from the ears using binocular microscopy under micro with forceps Assessment/Plan Diagnoses and all orders for this visit: Non-seasonal allergic rhinitis due to other allergic trigger Chronic sinusitis, unspecified location Tongue cancer (HCC) Bilateral impacted cerumen CADEN today. Continue annual surveillance exams Sinus plain films and RAST to evaluate sinuses and allergies Ears cleaned [1] Family History Problem Relation Name Age of Onset Stroke Mother Diabetes Mother Diabetes Father Stroke Daughter Melanoma Neg Hx [2] Past Surgical History: Procedure Laterality Date CT LARYNGOSCOPY,DIRECT,DX,OP MICROSCOP 12/27/2017 [3] No Known Allergies [4] Current Outpatient Medications on File Prior to Visit Medication Sig Dispense Refill calcium carbonate 1250 MG/5ML Take 1,250 mg by mouth in the morning and 1,250 mg at noon and 1,250 mg in the evening. Take with meals. cefdinir (Omnicef) 300 MG capsule Take 300 mg by mouth in the morning and 300 mg before bedtime. Diflucan 100 MG tablet 1 (one) time each day at the same time Lactobacillus (FLORANEX PO) levoFLOXacin (Levaquin) 750 MG tablet Take 1 tablet by mouth Daily magnesium oxide (Mag-Ox) 400 mg tablet Take 400 mg by mouth Daily Multiple Vitamin (multivitamin) capsule Take 1 capsule by mouth Daily nicotine (Nicoderm, Step 1) 21 MG/24HR patch Place 1 patch on the skin 1 (one) time each day at thesame time omeprazole (PriLOSEC) [address] capsule Take 40 mg by mouth in the morning. Take before meals. Pediatric Multivitamins-Fl (MultiVitamin + Fluoride) 0.25 MG chewable tablet potassium chloride CR (KLOR-CON) 20 MEQ ER tablet Take 20 mEq by mouth in the morning and 20 mEq before bedtime. predniSONE (Deltasone) 10 MG tablet 5 TABS DAILY X3 DAYS, 4 TABS X3 DAYS, 3 TABS X3 DAYS, 2 TABS X3DAYS, 1 TAB X3 DAYS, 1/2 TAB X4 DAYS thiamine (Vitamin B-1) 100 MG tablet Take 100 mg by mouth Daily No current facility-administered medications on file prior to visit. documented in this encounter Miscellaneous Notes * Addendum Note - Doris Shook MA - 08/28/2025 11:20 AM EDTAddended by: DORIS SHOOK on: 09/02/2025 08:58 AM Modules accepted: Orders documented in this encounter Plan of Treatment DateTypeDepartmentCare Team (Latest Contact Info)Pyrpjwnbdvl76/01/2025 11:20 AM ESTOffice Visit [facility] [place] [facility] [address] [facility] [address] [place] [phone] Kelly Pulliam MD [address] [place] [address] 08/27/2026 11:20 AM EDTOffice Visit [facility] [place] [facility] [address] [place] [address] [place] [phone] Kelly Pulliam MD [address] [place] [address] NameTypePriorityAssociated DiagnosesOrder ScheduleXR paranasal sinuses 3+ views ImagingRoutine Non-seasonal allergic rhinitis due to other allergic trigger Chronic sinusitis, unspecified location Chronic pansinusitis Chronic maxillary sinusitis Expected: 09/02/2025, Expires: 09/02/2026RESPIRATORY ALLERGY PROFILE REGION V W/REFLEXLabRoutine Non-seasonal allergic rhinitis due to other allergic trigger Chronic pansinusitis Chronic maxillary sinusitis Expected: 09/02/2025 (Approximate), Expires: 09/02/2026documented as of this encounter Visit Diagnoses Diagnosis Non-seasonal allergic rhinitis due to other allergic trigger- Primary Chronic sinusitis, unspecified location Tongue cancer (HCC) Malignant neoplasm of tongue, unspecified site Bilateral impacted cerumen Impacted cerumen Chronic pansinusitis Other chronic sinusitis Chronic maxillary sinusitis documented in this encounter Care Teams Team MemberRelationshipSpecialtyStart DateEnd Date Bird Crouch MD [address] [place] [phone] PCP - GeneralFamily Xsfimqqy95/16/25documented as of this encounter
--- OUTSIDE RECORDS SUMMARY | 2025-09-03 03:15 | XMS_ITS ---
Author Organization [facility] Ma in [place] Address [address] [place] [address] Care Team Providers Care Medicaid Business Analyst Name Role Phone Maldonado Crouch Primary Care Provider Allergies No Known Allergies REASON FOR VISIT Coughing, Headache, Has been ongoing for months Medications Medication SIG (Take, Route, Frequency, Duration) Notes Start Date End Date Status Tamsulosin HCl 0.4 MG TAKE 2 CAPSULES BY MOUTH D AILY; Duration: 30 ActiveViagra 100 MG1 tablet as needed Orally Once a day; Duration: 30 day(s) 5ActivelevoFLOXacin 750 MG1 tablet Orally Once a day; Duration: 10 day(s)5ActiveDiflucan 100 MG1 tablet Orally daily; Duration: 10 days 5ActivepredniSONE 10 MG5 tabs per day for 3 days, 4 tabs per day for 3 ays, 3 tabs perday for 3 days, 2 tabs per day for 3days, 1 tab a day for 3 days, 1/2 tab a day for 4 days Orally Once a day; Duration: 19 days5Active Social History Tobacco Use: Social History Observation [...] minutesAre you interested in quitting? Thinking about quittingAUDIT-C (Standard) Question Answer Notes Did you have a drink containing alcohol in the p ast year? No Ntoyhf1OpfiyssfugjdxhKqpesqmi Problems Problem Type SNOMED Code ICD Code Onset Dates Problem Status W/U Status Risk Notes Problem Laryngeal cancer (574251740) Laryngeal ca ncer (C32.9) Activeconfirmed Vital Signs Weight 158 lbs 09/03/2025 Height 65 in 09/03/2025 Blood pressure systolic 138 mm Hg 09/03/20 25 Blood pressure diastolic 82 mm Hg 025 BMI 26.29 kg/m2 09/03/2025 Encounters Encounter Location Date Provider Diagnosis [facility] [address] [place] [address] 09/03/2025 Maldonado Crouch Acute non-recurrent sinusitis, unspecified location J01.90 ; Nasal congestion R09.81 ; Headache 784.0 and Laryngeal cancer C32.9 Assessments Encounter Date Diagnosis (ICD Code) Assessment Notes Treatment Notes Treatment Clinical Notes Section Notes 09/03/2025 Acute non-recurrent sinusitis, unspecified location (ICD-10 - J01.90) Rest and drink more liquids, especially water. You may use a humidifier or vaporizer to help keep the drainage moist. Yopr-gdd-nbgylrm Nasal Saline may help the stuffy and runny nose. Use Ibuprofen and or Tylenol as needed for fever, chills, body aches or pain. Children 5 years old should not be given mwix-nvn-kobkewc cough and cold medications such as guaifenesin and dextromethorphan. If you're over age 5, you may try pzbr-bex-jewojcx cold medications such as guaifenesin and dextromethorphan, or multi-symptom cold reliever such as Dayquil to help reduce the symptoms. Antibiotics have been pre scribed. You should take these until completed and follow the directions. Antibiotics can sometimescause upset stomach, and in rare cases, serious allergic reactions or serious gastrointestinal problems. If you start having severe abdominal pain, severe vomiting, or bloody diarrhea, you should be r eevaluated by your physician or urgent care immediately. Follow up with your Primary Care Provider or return to clinic if symptoms do not improve within 3-5 days09/03/2025Nasal congestion (ICD-10 - R09.81)09/03/2025Headache (ICD9-CM - 784.0)09/03/2025Laryngeal cancer (ICD-10 - C32.9) Plan Of Treatment Medication Medication Name Sig Start Date Stop Date Notes levoFLOXacin 750 MG 1 tablet Orally Once a day; Durati on: 10 day(s) 07/17/2025 Diflucan 100 MG1 tablet Orally daily; Duration: 10 days08/21/2025predniSONE 10 MG5 tabs per day for 3 days, 4 tabs per day for 3 ays, 3 tabs perday for 3 days, 2 tabs per day for 3days, 1 tab a day for 3 days, 1/2 tab a day for 4 days Orally Once a day; Duration: 19 days09/03/2025Treatment Notes Assessment Notes Acute non-recurrent sinusiti s, unspecified location Rest and drink more liquids, especially water. You may use a humidifier or vaporizer to help keep the drainage moist. Emep-std-wxarsvd Nasal Saline may help the stuffy and runny nose. Use Ibuprofen and or Tylenol as needed for fever, chills, body aches or pain. Children 5 years old should not be given sqtf-kpq-gyhtcqs cough and cold medications such as guaifenesin and dextromethorphan. If you're over age 5, you may try qliv-nlr-jkdjnfh cold medications such as guaifenesin and dextromethorphan, or multi-symptom cold reliever such as Dayquil to help reduce the symptoms. Antibiotics have been prescribed. You should take these until completed and follow the directions. Antibiotics can sometimes cause upset stomach, and in rare cases, serious allergic reactions or serious gastrointestinal problems. If you start having severe abdominal pain, severe vomiting, or bloody diarrhea, you should be reevaluated by your physician or urgent care immediately. Follow up with your Primary Care Provider or return to clinic if symptoms do not improve within 3-5 days Pending Test Test Name Order Date MRI BRAIN WO CON 09/03/2025 Next Appt Details Follow Up: 3-5 days if not i mproving, Reason: Progress Notes * Carson NOLANDOB:[birth year] (69 yo M)Acc No.[id number]:09/03/2025 Progress Note Patient: Michelle BENNETTibeth Chilel :?Bird Crouch ([facility]), MDDOB:1955???Age: 69 Y???Sex:MaleDate:09/03/2025Phone:[phone]:[address] [facility] [place] [id number] In:08:09 AM ESTCheck Out:08:48 AM EST Subjective: * Chief Complaints: * C oughing, HeadacheHas been ongoing for months * HPI: ???General:? Just finished ab yesterday - coughf is better but not gone - prod still at hs. ???Sinusitis:? The patient complains of symptoms of sinus infection. The symptoms have been present for 1-2 days. The symptoms are moderate. Symptomatic treatment has included OTC medication. Associated symptoms include headache, facial pain, runny nose, nasal congestion. * ROS: ???Skin:?Rash?denies.?ENT:?Comments?See HPI for details.?Cardiovascular:?Edema?denies.?Palpitations?denies.?Respiratory:?Chest pain?denies.?Cough?denies.?Wheezing denies.?Gastrointestinal:?Abdominal pain?denies.?Nausea?denies.?Vomiting?denies.? * Active Problem List S82.831D Closed fracture of d istal end of right fibula with routine healing, unspecified fracture morphology, subsequent encounter Modified On:08/16/2023/U Status:nfukkwkucP18.899AOther fracture of unspecified lower leg, initial encounter for closed fracture Modified On:07/05/2023/U Status:xmpfwbnrkI04.831AOther fracture of upper and lower end of right fibula, initial encounter for closed fracture Modified On:08/24/2023/U Status:bwmlfwtgdQ58.401AMaxillary fracture, unspecified side, initial encounter for closed fracture Modified On:07/05/2023/U Status:xhihxjzzpR83.1Solitary pulmonary nodule Modified On:07/05/2023 Status:rmmvxyinpH54.819Decreased white blood cell count, unspecified Modified On:07/05/2023 Status:ydouvnjcaK39.10Dysphagia, unspecified Modified On:07/05/2023 Status:etjdepfntD20.61XADisplaced fracture of lateral malleolus of right fibula, initial encounter for closed fracture Modified On:07/26/2023 Status:uihbdzuzcB27.671Charcot's joint, right ankle and foot Modified On:10/19/2023 Status:vqudsdhxpS70.1Alcoholic polyneuropathy Modified On:10/19/2023 Status:lhpwkpfopS30.672Charcot's joint, left ankle and foot Modified On:07/26/2023 Status:hjzhkwtbxI08.92XAFacial fracture Modified On:08/02/2023 Status:fsxftylurS56.899AAnkle fracture Modified On:08/02/2023 Status:jtwscywpgR56.7Diarrhea Modified On:08/02/2023 Status:giponlqhwS64.10Alcohol abuse Modified On:08/03/2023 Status:fpjeegsxkJ62.81Unsteady gait Modified On:08/05/2023 Status:gzeiiqcdsB36.819Leukopenia Modified On:08/03/2023 Status:dzuynplsyG62Fwkoylw malnutrition Modified On:08/05/2023 Status:bbxketoquB53.829Elevated WBCs Modified On:08/05/2023 Status:oxeybmzoaY95.20Alcoholism Modified On:08/05/2023 Status:vunvbfpdbA37.6Frequent falls Modified On:08/05/2023 Status:agkjbmulhD65.10Dysphagia Modified On:08/05/2023 Status:mdyjjxmozM15.0Prostate hypertrophy Modified On:08/16/2023 Status:wzynoxizgT43.64XKNondisplaced fracture of lateral malleolus of right fibula, subsequent encounter for closed fracture with nonunion Modified On:10/19/2023 Status:bftdqhukzB89.89Secondary malignant neoplasm of other specified sites Modified On:04/04/2024 Status:rbzmtrooiO45.10Narcotic abuse Modified On:03/07/2025 Status:fwumrumanD08.818Pancytopenia Modified On:03/07/2025 Status:udzxqrrcyR51.2Chronic viral hepatitis C Modified On:04/29/2025 Status:cpvyswiivO71.9Impotence Modified On:06/18/2025 Status:ahrqpnzfqX84.9COPD (chronic obstructive pulmonary disease) Modified On:07/17/2025 Status:yzaoizhubD86.9Laryngeal cancer Modified On:09/03/2025 Status:confirmed * Medical History: * Surgical History: [...] ?Are you interested in quitting??Thinking about quitting ???Drug/Alcohol:?AUDIT-C (Standard)?Did you have a drink containing alcohol in the past year??No ?Points?0 ?Interpretation?Negative * Medications: T akingTamsulosin HCl 0.4 MG Capsule TAKE 2 CAPSULES BY MOUTH DAILY Viagra(Sildenafil Citrate) 100 MG Tablet 1 tablet as needed Orally Once a day Taking Tamsulosin HCl 0.4 MG Capsule TAKE 2 CAPSULES BY MOUTH DAILY Taking Viagra(Sildenafil Citrate) 100 MG Tablet 1 tablet as needed Orally Once a day DiscontinuedDiflucan 100 MG Tablet 1 tablet Orally daily levoFLOXacin 750 MG Tablet 1 tablet Orally Once a day predniSONE 20 MG Tablet 3 tablets Orally Once a day Medication List reviewed and reconciled with the patientDiscontinued Diflucan 100 MG Tablet 1 tablet Orally daily Discontinued levoFLOXacin 750 MG Tablet 1 tablet Orally Once a day Discontinued predniSONE 20 MG Tablet 3 tablets Orally Once a day Medication List reviewed and reconciled with the patient * Allergies: N .K.D.A.no[Allergies Verified] Objective: * Vitals: W t:158lbs, Ht: 65 in, BP:138/82mm Hg, BMI:26.29Index, Ht-cm: 165.1 cm, Wt-k.67 kg. * Examination: ???General Examination: ?GENERAL APPEARANCE:? in no acute distress, well developed,well nourished.?ENT:? ear and nose external appearance normal, tympanic membranes clear bilaterally, facial tenderness to palpation over sinuses.?EYES:? pupils equal, round, reactive to light and accomodations.?ORAL CAVITY:? mucosa moist.?NECK:?neck supple, full range of motion, no cervical lymphadenopathy.?LUNGS:?clear to auscultation bilaterally.?CARDIO:? no murmurs, regular rate and rhythm, S1, S2 normal.?ABDOMEN:? soft, nontender , not distended, bowel sounds are active.?SKIN:? no suspicious lesions, warm and dry.?EXTREMITIES:? no clubbing, cyanosis, or edema.?NEUROLOGIC:? nonfocal, motor strength of upper/lower extremities intact , sensory exam intact.? Assessment: * Assessment: 1.?Acute non-recurrent sinusitis, unspecified location - J01.90 (Primary)???2.&# 160;Nasal congestion - R09.81???3.?Headache - 784.0???4.?Laryngeal cancer - C32.9??? Plan: * Treatment: Refill Diflucan Tablet, 100 MG, 1 tablet, Orally, daily, 10 days, 10 Tablet, Refills 1;?RefilllevoFLOXacin Tablet, 750 MG, 1 tablet, Orally, Once a day, 10 day(s), 10;?Start predniSONE Tablet, 10 MG, 5 tabs per day for 3 days, 4 tabs per day for 3 ays, 3 tabs perday for 3 days, 2 tabs per day for 3 days, 1 tab a day for 3 days, 1/2 tab a day for 4 days, Orally, Once a day, 19 days, 47, Refills 0.?? Notes:Rest and drink more liquids, especially water. You may use a humidifier or vaporizer to help keep the drainage moist. Nxjj-luc-luyolua Nasal Saline may help the stuffy and runny nose. Use Ibuprofen and or Tylenol as needed for fever, chills, body aches or pain. Children 5 years old should notbe given ssug-wch-togggne cough and cold medications such as guaifenesin and dextromethorphan. If you're over age 5, you may try saos-zyu-lwgmouv cold medications such as guaifenesin and dextromethorphan, or multi-symptom cold reliever such as Dayquil to help reduce the symptoms. Antibiotics have been prescribed. You should take these until completed and follow the directions. Antibiotics can sometimes cause upset stomach, and in rare cases, serious allergic reactions or serious gastrointestinal problems. If you start having severe abdominal pain, severe vomiting, or bloody diarrhea, you should be reevaluated by your physician or urgent care immediately. Follow up with your Primary Care Provider or return to clinic if symptoms do not improve within 3-5 days??2.?Nasal congestion?Imaging: MRI BRAIN WO CON3.?Headache?Imaging: MRI BRAIN WO CON4.?Laryngeal cancer?Imaging: MRI BRAIN WO CON * Procedure Codes: * Preventive Medicine: ??Screenings/Counseling:?BMI ACTION PLAN?Above Normal BMI Follow-up?Dietary management education, guidance, and counseling * Follow Up: 3 -5 days if not improving * * Sign off status: CompletedVisit Status:?CHK (Check Out) true * Provider: May Crouch ([facility])MD Date: Generated for Printing/FaLamodag/eTransmitting on:?09/11/2025 07:52 AM EST History and Physical Notes * HPI (History of Present Illness) CategorySub-CategoryDetailNotesCategory NotesGeneralJust finished ab yesterday - coughf is better but not gone - prod still at hs Examination CategorySub-CategoryDetailNotesCategory NotesGeneral ExaminationGENERAL APPEARANCE:in no acute distress, well developed, well nourishedENT:ear and nose external appearance normal, tympanic membranes clear bilaterally, facial tenderness topalpation over sinusesEYES:pupils equal, round, reactive to light and accomodationsNECK:neck supple, full range of motion, no cervical lymphadenopathyCARDIO:no murmurs, regular rate and rhythm, S1, S2 normalLUNGS: clear to auscultation bilaterallyABDOMEN:soft, nontender , not distended, bowel sounds are activeNEUROLOGIC:nonfocal, motor strength of upper/lower extremities intact , sensory exam intactSKIN:no suspicious lesions, warm and dryEXTREMITIES: no clubbing, cyanosis, or edemaORAL CAVITY:mucosa moist
--- OUTSIDE RECORDS SUMMARY | 2025-09-11 07:52 | XMS_ITS | Patient Health Record ---
Author Organization [facility] [place] Address [address] [place] [address] Care Team Providers Care Restaurant Lead Name Role Phone Maldonado De La Cruz Primary Care Provider [phone] Allergies No Known Allergies Results Component Value Reference Range Notes Blood Culture 2 Reviewed date:08/18/2025 08:34:10 PM Interpretation: Performing Lab: Notes/Report: [facility] , Blood Culture 2 See Below For Report NG5D NO GROWTH AT 5 DAYS.^NO GROWTH AT 5 DAYS. Blood Culture 2 Performing Lab:see noteML - [facility] LBFREE T3 Reviewed date:09/04/2025 12:33:20 PM Interpretation: Performing Lab: Notes/Report: [facility] ,Free T31.942.18-3.98 pg/mLPerforming Lab:see noteML - [facility] LB LIPID PROFILE Reviewed date:09/04/2025 12:33:20 PM Interpretation: Performing Lab: Notes/Report: [facility] ,Tgrpzfaetmufm63<=150 mg/cWWqgxnqqnhnw374<=200 mg/dLHDL Dhzhnlwucpv3993-22 mg/dL > or =60 mg/dl - LOW CARDIOVASCULAR RISK <40 mg/dl - HIGH CARDIOVASCULAR RISK LDL Cholesterol Csyhdxftbu02.0 <100 mg/dl OPTIMAL >190 mg/dl VERY HIGH 100-129 mg/dl NEAR OR ABOVE OPTIMAL 130-159 mg/dl BORDERLINE HIGH 160-189 mg/dl HIGH VLDL CHOLESTEROL6.6Chol HDL Ratio2.5 4.4 - 7.1 AVERAGE RISK 7.1 - 11.0 MODERATE RISK 3.3 - 4.4 LOW RISK >11.0 HIGH RISK Performing Lab:see noteML - [facility] LBPROF 14(COMP METB) Reviewed date:09/04/2025 12:33:20 PM Interpretation: Performing Lab: Notes/Report: [facility] ,Mtbybf253530-062 mmol/LPotassium4.13.5-5.1 mmol/JHccznsch9052-571 mmol/LCarbon Fpuipko84.121.0-32.0 mmol/LAnion Gap14.0Cldfdxd39003-267 mg/dLBlood Urea Lqpgrphv07.07.0-18.0 mg/dLCreatinine0.870.70-1.30 mg/dLEstimated GFR ( Kathryn>60>=60 mL/min/1.73m 2Estimated GFR (Non- Brianda>60>=60 mL/min/1.73m 2BUN Creatinine Ratio11.6Kfygunt47.18.5-10.1 mg/dLBilirubin Total0.80.2-1.0 mg/dLAspartate Amino Fizjlibikub7709-25 U/LAlanine Rlhnchbomyxznnqj7265-81 U/L Alkaline Rvwumlnrhfm3629-262 U/LTotal Protein7.96.4-8.2 g/dLAlbumin Level4.13.4- 5.0 g/dLGlobulin3.8Albumin Globulin Ratio1.1Performing Lab:see note - [facility] LBT4 Reviewed date:09/04/2025 12:33:20 PM Interpretation: Performing Lab: Notes/Report: [facility] ,T4 Thyroxine9.104.50-12.10 ug/dLPerforming Lab:see noteML - [facility] LBTSH Reviewed date:09/04/2025 12:33:20 PM Interpretation: Performing Lab: Notes/Report: [facility] ,Thyroid Stimulating Hormone1.0530.358-3.740 uIU/mLPerforming Lab:see note - [facility] LBPSA SCREENING Reviewed date:09/04/2025 12:33:20 PM Interpretation: Performing Lab: Notes/Report: [facility] ,Prostate Specific Antigen Scrn0.65<=4.00 ng/mLPerforming Lab:see note - [facility] LBGLYCOHEMOGLOBIN A1C Reviewed date:09/04/2025 12:33:20 PM Interpretation: Performing Lab: Notes/Report: [facility] ,Glycohemoglobin A1C4.94.5-6.2 % ADA THERAPEUTIC TARGET < 7.0 > 7.0 ADA RECOMMENDED LIMIT 4.0 - 6.0 ACTION SUGGESTED Estimated Average Fzeedzf79Urvuhtukmd Lab:see noteML - [facility] LB CBC AUTO DIFF Reviewed date:09/04/2025 12:33:20 PM Interpretation: Performing Lab: Notes/Report: [facility] ,White Blood Count7.04.0-11.0 10 3/uLRed Blood Count4.234.70-6.10 10 6/uL Ssowkbxrqy09.714.0-18.0 g/eGYmkgayzekd90.742.0-54.0 %Mean Corpuscular Frzazg65.9 80.0-94.0 fLMean Corpuscular Wrrutdpoil08.425.9-34.0 pgMean Corpuscular HGB Conc 34.529.9-35.2 g/dLRed Cell Distribution Width13.511.0-15.0 %Platelet Wzjga658 150-450 10 3/uLMean Platelet Volume9.19.5-13.5 fLNeutrophils Percent Auto92.3 43.0-75.0 %Lymphocytes Percent Auto5.020.5-60.0 %Monocytes Percent Auto2.01.7- 12.0 %Eosinophils Percent Auto0.00.9-7.0 %Basophils Percent Auto0.30.2-2.0 % Immature Granulocytes Pct Auto0.40.0-0.5 %Neutrophils Absolute Auto6.51.4-6.5 10 3/uLLymphocytes Absolute Auto0.41.2-3.8 10 3/uLMonocytes Absolute Auto0.10.3-0.8 10 3/uLEosinophils Absolute Auto0.00.0-0.7 10 3/uLBasophils Absolute Auto0.00.0- 0.1 10 3/uLImmature Granulocytes Abs Auto0.030.00-0.03 10 3/uLPerforming Lab:see noteML - [facility] LBLower Respiratory Culture Reviewed date:08/20/2025 02:08:58 PM [...] AMOXICILLIN/CLAVULANIC ACID S F Lower Respiratory Culture(CLSI B625-Ib42) Tobramycin Gentamicin Cefepime Ceftriaxone Tobramycin S F [...] F Lower Respiratory CulturePerformed at: [facility] - [facility] Tobramycin Gentamicin Cefepime Ceftriaxone Tobramycin S F [...] Levofloxacin AMOXICILLIN/CLAVULANIC ACID S F Lower Respiratory [address] [place] [phone] Tobramycin Gentamicin Cefepime Ceftriaxone Tobramycin S F [...] Respiratory CultureLab Director: Roddy Strickland PhD, Phone: [phone] Tobramycin Gentamicin Cefepime Ceftriaxone Tobramycin S F [...] F Cefpodoxime Trimethoprim/Sulfamethoxazole S F Antibiotic Interpretation JOGRE Status Levofloxacin S F Ampicillin R F [...] F Performing Lab:see note SEE REPORT - Engineering Research Manager Id information not found for OBX-specific media producer legend LC - [facility] LB Gram Stain Evaluation Reviewed date:08/20/2025 02:08:58 PM Interpretation: Performing Lab: Notes/Report: [facility] ,Gram Stain EvaluationSee Below For Report Gram Stain Evaluation This specimen is of good quality and is acceptable for routine Gram Stain Evaluationbacterial culture. Gram Stain Evaluation This specimen is of good quality and is acceptable for routine Performing Lab:see note - [facility] LBResult 4 Reviewed date:08/20/2025 02:08:58 PM Interpretation: Performing Lab: Notes/Report: [facility] ,Result 4See Below For Report Result 4 BAG END SEWER Performing Lab:see note - [facility] LBResult 3 Reviewed date:08/20/2025 02:08:58 PM Interpretation: Performing Lab: Notes/Report: [facility] ,Result 3See Below For Report Few gram variable cocci Result 3 Performing Lab:see note - [facility] LBResult 2 Reviewed date:08/20/2025 02:08:58 PM Interpretation: Performing Lab: Notes/Report: [facility] ,Result 2See Below For Report Few gram negative rods. Result 2 Performing Lab:see note - [facility] LBResult 1 Reviewed date:08/20/2025 02:08:58 PM Interpretation: Performing Lab: Notes/Report: [facility] ,Result 1See Below For Report Few gram positive cocci Result 1 Performing Lab:see note - [facility] LBEpithelial Cells Reviewed date:08/20/2025 02:08:58 PM Interpretation: Performing Lab: Notes/Report: [facility] ,Epithelial CellsSee Below For Report Epithelial Cells Few Performing Lab:see note - [facility] LBWhite Blood Cells Reviewed date:08/20/2025 02:08:58 PM Interpretation: Performing Lab: Notes/Report: [facility] ,White Blood CellsSee Below For Report White Blood Cells White Blood CellsNone seen White Blood Cells Performing Lab:see note - [facility] LBXR chest 2V Reviewed date:08/12/2025 02:32:35 PM Interpretation: Performing Lab: Notes/Report: Source Facility: [place] [address] [place] [address] XRay Report Signed Patient: ADELFO NOLAN MR#: [id number] : 1955 Acct:[id number] Age/Sex: 69 / M ADM Date: 08/12/25 Loc: LAB Attending Dr: Bird De La Cruz M.D. Ordering Physician: Bird De La Cruz M.D. Date of Service: 08/12/25 Procedure(s): XR chest 2V Accession Number(s): [id number] cc: Bird De La Cruz M.D. [place] [address] Patient Name: ADELFO NOLAN MRN: [id number] date: 1955 Sex: M Assigned Patient Location: LAB Current Patient Location: LAB Accession/Order Number: [id number] Exam Date: 08/12/2025 12:10 Report Date: 08/12/2025 13:30 At the request of: BIRD DE LA CRUZ MD Procedure: XR chest 2V Chest 2 views CLINICAL HISTORY: Mold Exposure COMPARISON: None FINDINGS: XR/XR chest 2V IMPRESSION: NO ACUTE CARDIOPULMONARY ABNORMALITY. Impression dictated by: Bubba Tay Jr., D.O. 08/12/2025 1:30 PM Dictation Location: [place] [address] Electronically authenticated by: [id number] Y Date: 08/12/2025 13:30 Dictated By: Bubba Tay M.D. Signed By: 08/12/25 1332 DD/ 1330 TD/TT: Subassembly Assembler:Blood Culture 1 Reviewed date:08/18/2025 08:34:10 PM Interpretation: Performing Lab: Notes/Report: [facility] ,Blood Culture 1See Below For Report Blood Culture 1 NG5D NO GROWTH AT 5 DAYS.^NO GROWTH AT 5 DAYS. Performing Lab:see noteML - [facility] LBXR sinus min 3V Reviewed date:09/05/2025 08:31:50 AM Interpretation: Performing Lab: Notes/Report: Source Facility: [facility]-[address] [place] [address] [place] [address] XRay Report Signed Patient: ADELFO NOLAN MR#: [id number] : 1955 Acct:[id number] Age/Sex: 69 / M ADM Date: 09/05/25 Loc: LAB Attending Dr: Kelly Pulliam M.D. Ordering Physician: Kelly Pulliam M.D. Date of Service: 09/05/25 Procedure(s): XR sinus min 3V Accession Number(s): [id number] cc: Bird De La Cruz M.D.; Kelly Pulliam M.D. [address] [address] Patient Name: ADELFO NOLAN MRN: [facility]:[id number] date: 1955 Sex: M Assigned Patient Location: LAB Current Patient Location: LAB Accession/Order Number: [id number] Exam Date: 09/05/2025 07:05 Report Date: 09/05/2025 07:27 At the request of: KELLY PULLIAM MD Procedure: XR sinus min 3V 3 views of sinuses HISTORY: Chronic sinusitis. Rhinitis. No fluid levels are mucosal thickening of the sinuses. Bony structures unremarkable. XR/XR sinus min 3V IMPRESSION: No mucosal thickening or fluid levels of the sinuses. Impression dictated by: Vance Nino M.D. 09/05/2025 7:27 AM Dictation Location: [place] [address] Electronically authenticated by: [id number] Y Date: 09/05/2025 07:27 Dictated By: Vance Nino D.O. Signed By: 09/05/25728 DD/ 6 TD/TT: Subassembly Assembler: Reason For Referral No Information Medications Medication [...] the past year?Daily or almost daily (4 points)Xdgczr94ZkvvselkxvnzkoOwjqojwlHLRRT-E (Standard) Question Answer Notes Did you have a drink containing alcohol in the p ast year? 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61XA)ActiveconfirmedProblemNonunion of fracture (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) Nondisplaced fracture of lateral malleolus of right fibula, subsequent encounter for closed fracture with nonunion (S82.64XK)ActiveconfirmedProblemClosed fracture of upper end of fibula (91127726)Other fracture of upper and lower end of right fibula, initial encounter for closed fracture (S82.831A)Activeconfirmed ProblemClosed fracture of ankle (55950910)Other fracture of unspecified lower leg, initial encounter for closed fracture (S82.899A)ActiveconfirmedProblemCOPD - Chronic obstructive pulmonary disease (88735593)COPD (chronic obstructive pulmonary disease) (J44.9)ActiveconfirmedProblemAlcohol abuse (81709530)Alcohol abuse (F10.10)ActiveconfirmedProblemDiarrhea (26344339)Diarrhea (R19.7)Active confirmedProblemDysphagia (46774429)Dysphagia (R13.10)ActiveconfirmedProblem Pancytopenia (667626352)Pancytopenia (D61.818)ActiveconfirmedProblemAlcoholism (9169698)Alcoholism (F10.20)ActiveconfirmedProblemRecurrent falls (022877043) Frequent falls (R29.6)ActiveconfirmedProblemUnsteady gait (23806647)Unsteady gait (R26.81)ActiveconfirmedProblemErectile dysfunction (disorder) (357114483) Impotence (N52.9)ActiveconfirmedProblemOpioid abuse (0368009)Narcotic abuse (F11.10)ActiveconfirmedProblemLeukopenia (27953115)Leukopenia (D72.819)Active confirmedProblemBenign prostatic hyperplasia (830434440)Prostate hypertrophy (N40.0)ActiveconfirmedProblemAnkle fracture (75820200)Ankle fracture (S82.899A) ActiveconfirmedProblemLaryngeal cancer (487307640)Laryngeal cancer (C32.9)Active confirmedProblemLeukocytosis (659065662)Elevated WBCs (D72.829)Activeconfirmed ProblemFacial fracture (S02.92XA)ActiveconfirmedProblemMalnutrition, calorie (269976278)Caloric malnutrition (E46)ActiveconfirmedProblemClosed fracture of malar AND/OR maxillary bones (36752437)Maxillary fracture, unspecified side, initial encounter for closed fracture (S02.401A)ActiveconfirmedProblemClosed fracture of distal right fibula (disorder) (24702032801501617)Closed fracture of distal end of right fibula with routine healing, unspecified fracture morphology, subsequent encounter (S82.141D)Activeconfirmed Vital Signs Temperature 97.6 degrees Fahrenheit 07/17/2025 Blood pressure mm Hg09/03/20252809Kujmgd91 in09/03/2025lood pressure kvibydbg421 mm Hg09/03/20257440Wjzavt856 lbs1MI26.29 kg/m209/03/2025 Encounters Encounter Location Date Provider Diagnosis [address] [address] 06/18/2025 Maldonado Hoy Impotence N52.9 ; Pancytopenia D61.818 ; Unsteady gait R26.81 ; Leukopenia D72.819 and Prostate hypertrophy N40.[address] [address] 07/17/2025 Maldonado Hoy COPD (chronic obstructive pulmonary disease) J44.[address] [address] 08/21/2025 Maldonado Hoy COPD (chronic obstructive pulmonary disease) J44.[address] [address] 09/03/2025 Maldonado Hoy Acute non-recurrent sinusitis, unspecified location J01.90 ; Nasal congestion R09.81 ; Headache 784.0 and Laryngeal cancer C32.[address] [address] 03/07/2025 Maldonado De La Cruz Secondary malignant neoplasm of other specified sites C79.89 ; Narcotic abuse F11.10 and Pancytopenia D61.818 [facility] [address] [facility] [address] 11/12/2024 Maldonado De La Cruz [facility] [facility] [place] [address] 06/18/2025[facility] [facility] [place] [address]/Doug [facility] [facility] [address]/Doug [facility] [facility] [address]/04/2025Doug HoyMold exposure Z77.120[facility] [facility] [address]/04/2025 Maldonado [facility] [facility] [place] [address]/[facility] [facility] [address]/[facility] [facility] [address]/Doug HoySecondary malignant neoplasm of other specified sites [...] - J44.9)If not better -needs ct scan kfkboac1809/03/2025ute non-recurrent sinusitis, unspecified location (ICD-10 - J01.90)Rest and drink more liquids, especially water. You may use a humidifier or vaporizer to help keep the drainage moist. Wyot-dwd-lgwwzxr Nasal Saline may help the stuffy and runny nose. Use Ibuprofen and or Tylenol as needed for fever, chills, body aches or pain. Children 5 years old should not be given bhlk-hrb-gxaomkg cough and cold medications such as guaifenesin and dextromethorphan. If you're over age 5, you may try btgg-jua-hdrxoss cold medications such as guaifenesin and dextromethorphan, [...] other specified sites (ICD-10 - C79.89)Sqyuamous cell wmgydl5608/12/2025Mold exposure (ICD-10 - Z77.120)03/07/2025Narcotic abuse (ICD-10 - [...] Insured Coverage Start Date Coverage End Date [employer] AD[employer]AN [address] [place] [phone] [id number] [facility] Adelfo Nolan Self - patient is the insured 3 MEDICAID [facility] [address] OFFICE OF [place], [place] [phone], AnthonySelf - patient is the ohevyeg51 2022 Medical (General) History Medical History History ICD Code Closed fracture of distal en d of fibula, unspecified fracture morphology, unspecified laterality, initial encounter S82.839A fracture right maxillary sinus Alcohol abuseFrequent fallsLeukopeniamalnutritionOther fracture of upper and lower end of right fibula, subsequent encounter for closed fracture with routine zrmhunsJ57.831DMaxillary fracture, right side, subsequent encounter for fracture with routine qnohpzoW19.40CDHistory of tongue yuntosT35.810DysphagiaSurgical History Surgery Date(Month/Year) Feeding tube placement at one time Hospitalization History Reason Date(Month/Year) Broken Right Ankle 07/2023 Falls 07/06/23
--- OUTSIDE RECORDS SUMMARY | 2025-09-11 07:52 | XMS_ITS | Encounter Summary ---
Author Organization [facility] Address [address] [place] [address] Care Team Providers Care Cloth Shrinking Tester Name Role Phone Bird Crouch MD Primary Care Provider [phone] Encounter Details DateTypeDepartmentCare Team (Latest Contact Info)Jkooiepqyhj85/22/2025Travel Social History Tobacco UseTypesPacks/DayYears UsedDateSmoking Tobacco: Every DayCigarettes0.5 53.8Started: 1972Smokeless Tobacco: Never Comments:Smokes 6-10 cigaret yoko/day Alcohol UseStandard Drinks/WeekCommentsYes8 (1 standard drink = 0.6 oz pure alcohol)Caffeine >4 cups/daySex and Gender InformationValueDate RecordedSex Assigned at BirthNot on fileLegal ZksWenl4401/19/2023 8:14 PM EDTGender Identity Not on fileSexual OrientationNot on filedocumented as of this encounter Plan of Treatment DateTypeDepartmentCare Team (Latest Contact Info)Tppnunysvgl54/01/2025 11:20 AM ESTOffice Visit [facility] [place] [facility] [address] [place] [address] Kelly Pulliam MD [address] [place] [address] 08/27/2026 11:20 AM EDTOffice Visit [facility] [place] [facility] [address] [place] [address] Kelly Pulliam MD [address] [place] [address] documented as of this encounter Visit Diagnoses Not on filedocumented in this encounter Care Teams Team MemberRelationshipSpecialtyStart DateEnd Date Bird Crouch MD [address] [place] [address] PCP - GeneralFamily Cjmxukxz90/16/25documented as of this encounter
--- OUTSIDE RECORDS SUMMARY | 2025-09-11 07:52 | XMS_ITS | Encounter Summary ---
Author Organization [facility] Address [address] [place] [address] Care Team Providers Care Feed Inspection Supervisor Name Role Phone Bird Crouch MD Primary Care Provider [phone] Encounter Details DateTypeDepartmentCare Team (Latest Contact Info)Lusdrpeapji03/30/2025linisync Result Encounter [facility] Unsolicited Abram Pulliam MD [address] [place], [place] [phone] Social History Tobacco UseTypesPacks/DayYears UsedDateSmoking Tobacco: Every DayCigarettes0.5 53.8Started: 1972Smokeless Tobacco: Never Comments:Smokes 6-10 cigaret yoko/day Alcohol UseStandard Drinks/WeekCommentsYes8 (1 standard drink = 0.6 oz pure alcohol)Caffeine >4 cups/daySex and Gender InformationValueDate RecordedSex Assigned at BirthNot on fileLegal XbdQftg0901/19/2023 8:14 PM EDTGender Identity Not on fileSexual OrientationNot on filedocumented as of this encounter Plan of Treatment DateTypeDemagnolia regional medical centerCare Team (Latest Contact Info)Uhgggrkzlnc36/01/2025 11:20 AM ESTOffice Visit [facility] [place] [facility] [address] [place] [address] Abram Pulliam MD [address] [place], [place] [address] 08/27/2026 11:20 AM EDTOffice Visit [facility] [place] [facility] [address] [place] [address] Abram Pulliam MD [address] [place] [address] documented as of this encounter Procedures Procedure NamePriorityDate/TimeAssociated DiagnosisCommentsXR PARANASAL SINUSES 3+ VIEWS09/05/2025 7:27 AM EDT documented in this encounter Results * XR paranasal sinuses 3+ views (09/05/2025 7:27 AM EDT)Anatomical Region LateralityModalityHead, NeckRadiographic ImagingSpecimen (Source)Anatomical Location / LateralityCollection Method / VolumeCollection TimeReceived Time 09/05/2025 7:27 AM EDT Narrative 09/05/2025 7:29 AM EDT [facility] ?[address] ? [place] [address] ?XRay Report ? Signed ? Patient: ADELFO NOLAN Get[place]w ?MR#: [id number] ?? : 1955 ?Acct:[id number] ?? Age/Sex: 69 / M ?ADM Date: 09/05/25 ?? Loc: LAB ? Attending Dr: Abram Pulliam M.D. ? Ordering Physician: Abram Pulliam M.D. ?? Date of Service: 09/05/25 ?? Procedure(s): XR sinus min 3V ?? Accession Number(s): [id number] ? cc: Bird Crouch M.D.; Abram Pulliam M.D. ? [facility] ? [address] ? [place] [address] ? Patient Name: ?? ADELFO NOLAN ? MRN: [id number] ? date: 1955 ?Sex: M ?? Assigned Patient Location: LAB ?? Current Patient Location: LAB ?? Accession/Order Number: [id number] ?? Exam Date: 09/05/2025 ??07:05 ?Report Date: 09/05/2025 ??07:27 ? At the request of: ?? ABRAM ??TIMMIS ??MD ? Procedure: ??XR sinus min 3V ? 3 views of sinuses ? HISTORY: Chronic sinusitis. ??Rhinitis. ? No fluid levels are mucosal thickening of the sinuses. ??Bony structures ?? unremarkable. ? XR/XR sinus min 3V ?? IMPRESSION: No mucosal thickening or fluid levels of the sinuses. ? Impression dictated by: Vance Nino M.D. ??09/05/2025 7:27 AM ? Dictation Location: [facility]-16 ? Electronically authenticated by: [id number] ??Y ?? Date: 09/05/2025 ??07:27 ? Dictated By: ?Vance Nino D.O. ? Signed By: ?09/05/25 0729 ? DD/ 0727 ? TD/TT: ? Cigarette And Filter Chief Inspector: Procedure Note Radiology, Radiologist, MD - 09/05/2025 [place] [address] XRay Report Signed Patient: ADELFO NOLAN JMR#: [id number] : 1955cct:[id number] Age/Sex: 69 / MADM Date: 09/05/25 Loc: LAB Attending Dr: Abram Pulliam M.D. Ordering Physician: Abram Pulliam M.D. Date of Service: 09/05/25 Procedure(s): XR sinus min 3V Accession Number(s): [id number] cc: Bird Crouch M.D.; Abram Pulliam M.D. [place] [id number] Patient Name: ADELFO NOLAN MRN: [id number] date: 1955 Sex: M Assigned Patient Location: LAB Current Patient Location: LAB Accession/Order Number: [id number] Exam Date: 09/05/2025 07:05 Report Date: 09/05/2025 07:27 At the request of: ABRAM PULLIAM MD Procedure: XR sinus min 3V 3 views of sinuses HISTORY: Chronic sinusitis. Rhinitis. No fluid levels are mucosal thickening of the sinuses. Bony structures unremarkable. XR/XR sinus min 3V IMPRESSION: No mucosal thickening or fluid levels of the sinuses. Impression dictated by: Vance Nino M.D. 09/05/2025 7:27 AM Dictation Location: [place] [address] Electronically authenticated by: [id number] Y Date: 7:27 Dictated By: Vance Nino D.O. Signed By:09/05/25728 DD/ 6 TD/TT: Cigarette And Filter Chief Inspector: Authorizing ProviderResult TypeResult StatusHimiguel Pulliam MDIMG XR PROCEDURES Final Result documented in this encounter Visit Diagnoses Not on filedocumented in this encounter Care Teams Team MemberRelationshipSpecialtyStart DateEnd Date Bird Crouch MD [address] [place] [address] PCP - GeneralFamily Dqtgipvr77/16/25documented as of this encounter
--- OUTSIDE RECORDS SUMMARY | 2025-09-11 07:52 | XMS_ITS | Clinical Summary ---
Author Organization [facility] Address [address] [place] [address] Care Team Providers Care Release Of Information Clerk Name Role Phone Bird Crouch MD Primary Care Provider [phone] Allergies No known active allergies Medications MedicationSigDispense QuantityRefillsLast FilledStart DateEnd DateStatus tamsulosin (FLOMAX) 0.4 mg Take 1 capsule by mouth every afternoon.4Active levoFLOXacin (LEVAQUIN) 750 mg tablet Take 750 mg by mouth once daily.Active Active Problems ProblemNoted DateDiagnosed DateMalignant neoplasm of head, face and neck 12/18/2020ung gvbmyyp9812/18/20205051Mzdvfubjbylslceo07/18/2018Mucositis due to radiation evdedzo8202/27/2018Severe protein-calorie iqqsrgsffpdu74/23/2018 Overview (02/27/2018): 17% unintentional weight loss in one month (02/27/18) Signed by: Selam Bullard RDN, 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Hoarse voice quality Family History Medical HistoryRelationCommentsStrokeDaughterDiabetesFatherDiabetesMotherStroke MotherColon CancerNo Family HistoryRelationStatusCommentsDaughterFatherDeceased MotherDeceased Social History Tobacco UseTypesPacks/DayYears UsedDateSmoking Tobacco: Every DstTyungdabit173 Started: 03/04/1973; Last attempted to quit: 03/04/2018Smokeless Tobacco: Current Tobacco Cessation:Ready to Q uit: Not Asked; Counseling Given: Not Answered Comments:started 1971 Alcohol UseStandard Drinks/WeekCommentsYes0 (1 standard drink = 0.6 oz pure alcohol)sociallyPHQ-2AnswerDate RecordedPHQ-2 dhxfn931rea Deprivation IndexAnswerDate RecordedNational Score (1-100), lower number is lower risk87 12/19/2023State Score (1-10), lower number is lower qpdf0414Data from: https://www.neighborhoodatlas.[facility] [place].[facility]/. Last address used for mlybgyncoqz[address]12/19/2023Sex and Gender InformationValueDate Recorded Sex Assigned at BirthNot on fileLegal RvhJogr9901/04/2018 11:55 AM ESTGender IdentityNot on fileSexual OrientationNot on file Last Filed Vital Signs Vital SignReadingTime TakenCommentsBlood Eesrfwrz985/8503 11:18 AM EDT dgiglgcGxmud0754/17/2025 11:15 AM YOGArzucnmafrq25.4 ??C (97.6 ??F)01/21/2025 11:15 AM EDTRespiratory Xdep9866 11:15 AM EDTOxygen Ykreddgila80% 01/21/2025 11:15 AM EDTInhaled Oxygen Concentration--Avjpes80.5 kg (153 lb 3.5 oz)01/21/2025 11:15 AM YTGIzzktn167.1 cm (5' 5 )01/21/2025 11:15 AM EDTBody Mass Index25.503 11:15 AM EDT Plan of Treatment DateTypeDepartmentCare Team (Latest Contact Info)Csspfmudbxu00/09/2026 7:45 AM EDTAppointment Radiology Pet CT [address] [place] [address] CT CHEST AND NECK01/20/2026 11:40 AM EDTVisit (SP) Office Hematology/Oncology [address] [place] [address] Wyatt Vela MD [address] [place] [address] [place] [address] [address] UP AFTER CT SCANHealth MaintenanceDue DateLast DoneComments Abdominal Aortic Aneurysm Acogwkivs65/05/1957Anxiety Eethkdhws37/05/1975 Depression Xicsgvvss08/05/1975DTaP,Tdap,Td Vaccine (1 - Tdap)1975 Pneumococcal Vaccine: 50+ (1 of 2 - PCV)1975Lipid Vbvdxrhfr99/05/1992CT Dwerzlizqwdt77/05/2002Cologuard (FIT-DNA)11/11/20019980Fqyfxamxxte31/05/2002 Colorectal Cancer Gxkxykoas57/05/2002Fecal Occult Blood2001Prostate Cancer Screening Lgzzzqrane73/05/2283Qaczefcpgcrcs89/05/2002Shingrix Vaccine (1 of 2) 2006dvance Directive Dygvhciazr43/01/2025Medicare Advantage Annual Wellness Visit11/07/2024ovid-19 Vaccine ( - 2024- season)2025Influenza Vaccine (#1)2025Diabetes Cozjsfjmv65/06/210989/04/2025, 06/22/2024, 12/16/2023, Additional history existsRSV Vaccine (1 - 1-dose 75+ series) 2031Hepatitis C RgzzqjwtyJgufddfrf54/22/2024, 05/24/2024, 05/22/2024, Additional history exists Procedures Procedure NamePriorityDate/TimeAssociated DiagnosisCommentsCOMPREHENSIVE METABOLIC UFRRJTtvhqmr17/06/2025 2:10 PM EST History of head and neck cancer Lung nodules HEPATITIS C VIRUS (HCV) RNA, QUANTITATIVE PCR, PLASMA/YCDFYTdlqtvh39/16/2024 9:58 AM EDT Abnormal LFTs Chronic hepatitis C without hepatic coma (HCC) from Last 3 Months or Most Recently Relevant to Health Maintenance Results * (ABNORMAL) COMPREHENSIVE METABOLIC PANEL (01/10/2025 2:10 PM EST)Component ValueRef RangeTest MethodAnalysis TimePerformed AtPathologist Signature Protein, Total6.86.3 - 8.0 g/dL01/10/2025 2:43 PM ESTNOR[facility] LABAlbumin4.43.9 - 4.9 g/dL01/10/2025 2:43 PM ESTNORTSELECT [facility] LABCalcium, Total9.68.5 - 10.2 mg/dL01/10/2025 2:43 PM [facility] LABBilirubin, Total0.60.2 - 1.3 mg/dL 01/10/2025 2:43 PM [facility] LABAlkaline Roawjqmocpy4114 - 113 U/L01/10/2025 2:43 PM [facility] TTJGVQ3756 - 40 U/L01/10/2025 2:43 PM [facility] LABALT8(L)10 - 54 U/L01/10/2025 2:43 PM [facility] LHMYvsmsxh250(H)74 - 99 mg/dL01/10/2025 2:43 PM [facility] LABComment: The [place] Diabetes Association (ADA) provides guidance for cutoff [...] Standards of Medical Care in Diabetes 2016, [place] Diabetes Association. Diabetes Care. 2016.39(Suppl 1). BUN99 - 24 mg/dL01/10/2025 2:43 PM [facility] Creatinine0.68(L)0.73 - 1.22 mg/dL01/10/2025 2:43 PM [facility] OIADdbatd926999 - 144 mmol/L01/10/2025 2:43 PM [facility] LABPotassium3.73.7 - 5.1 mmol/L01/10/2025 2:43 PM EST [facility] AQTDrtmehas31364 - 107 mmol/L01/10/2025 2:43 PM [facility] RSMDL67711 - 30 mmol/L01/10/2025 2:43 PM [facility] LABAnion Qlu760 - 15 mmol/L01/10/2025 2:43 PM [facility] LABEstimated Glomerular Filtration Rate 101>=60 mL/min/1.73m 01/10/2025 2:43 PM [facility] LABComment:Estimated Glomerular Filtration Rate (eGFR) is [...] VolumeCollection TimeReceived TimeBloodBLOOD SPECIMEN / UnknownVenipuncture / Ryexvlt8001/10/2025 2:10 PM EST01/10/2025 2:20 PM EST Narrative Authorizing ProviderResult TypeResult StatusViveberenice Vela MDLABORATORYFinal ResultPerforming OrganizationAddressCity/State/ZIP CodePhone Number [facility] [address] [place] [phone] * HEPATITIS C RNA QUANTIFICATION BY PCR, PLASMA/SERUM (05/22/2024 9:58 AM EDT) ComponentValueRef RangeTest MethodAnalysis TimePerformed AtPathologist SignatureHCV RNAHCV RNA not detected by PCR.HCV RNA not detected by PCR. TOY OSCAR 6800 05/23/2024 2:59 AM EDTCNEW[facility] LABSpecimen (Source) Anatomical Location / LateralityCollection Method / VolumeCollection Time Received TimeBloodBLOOD SPECIMEN / UnknownVenipuncture / Isfwqya0805/22/2024 9:58 AM EDT05/22/2024 9:58 AM EDT Narrative [facility] - 05/23/2024 2:59 AM EDT The Linear Range of this assay is 15 IU/ml to 100,000,000 IU/ml Authorizing ProviderResult TypeResult StatusNosilvino Quintero MDLABORATORYFinal Result Performing OrganizationAddressCity/State/ZIP CodePhone Number [facility] [address] [facility] [address] [place] [address], from Last 3 Months or Most Recently Relevant to Health Maintenance Insurance Care Teams Team MemberRelationshipSpecialtyStart DateEnd Bird Crouch MD PCP - GeneralFamily Medicine01/04/18
--- OUTSIDE RECORDS SUMMARY | 2025-09-11 07:52 | XMS_ITS | Clinical Summary ---
Author Organization [facility] Address [address] [place] [address] Care Team Providers Care Arson Investigator Name Role Phone Bird Crouch MD Primary [...] Active Problems ProblemNoted DateDiagnosed DateAlcohol abuse08/28/2025lcoholic polyneuropathy 08/28/20255689Alnqgegbnm30/22/2025rthropathy associated with neurological disorder 08/28/2025hronic hepatitis 08/28/2025losed fracture of ankle08/28/2025losed fracture of distal end of right iljrnq8708/28/2025losed fracture of upper end of hkfhkb1008/28/2025OPD (chronic obstructive pulmonary disease)08/28/2025 Overview (08/28/2025): COPD UNSPECIFIED.This condition was first identified on :2025-07-17 ,Rendering provider NPI :[id number] Seiuyqft44/22/5538Ppzytiffe54/22/2025Erectile nncnszofmdu68/22/2025Facial lrfeexdf27/22/0072Txmcgenevge42/22/2025Opioid abuse08/28/2025 Overview (08/28/2025): OPIOID ABUSE UNCOMPLICATED ,Rendering provider NPI :[id number] Tmanmctijbfd51/22/2025Poisoning by unspecified narcotics, accidental (unintentional), initial tixftwnru45/22/2025 Overview (08/28/2025): POISON UNS NARCOTIC ACC INITIAL ENC.This condition was first identified on :2024-02-24 Recurrent falls08/28/2025Solitary pulmonary tfnnmh4908/28/2025Unsteady gait 08/28/2025losed right maxillary /13/2023enign prostatic hyperplasia without urinary vounksapfdi18/15/2023urrent ticsws8206/21/2023Hoarse voice kywrwdg1606/21/20239934Dkcsmycddbbu63/11/2023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/ Overview (06/21/2023): Diagnosed 12/27/17. T4a N1 Mo SCCA right tongue base. Radiation completed. 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 hxagppf8102/27/2018Severe protein-calorie malnutrition (HHS-HCC)02/27/2018 Overview (06/21/2023): 17% unintentional weight loss in one month (02/27/18) Signed by: Selam Bullard RDN, LD [phone] Resolved Problems ProblemNoted DateDiagnosed DateResolved DateHistory of tongue ftuune7706/21/2023 06/21/20230829Iovraulu21 Encounters DateTypeDepartmentCare LvxaMgpqzzluvlt75/31/2025Results Follow-Up [facility] [place] [facility] [address] [facility] [address] [place] [phone] Abram Pulliam MD XR paranasal sinuses 3+ views09/05/2025linisync Result Encounter [facility] External Department Unsolicited Abram Pulliam MD 08/28/2025 11:20 AM EDTOffice Visit [facility] [place] [facility] [address] [facility] [address] [place] [address] Abram Pulliam MD Non-seasonal allergic rhinitis due to other allergic trigger (Primary Dx); Chronic sinusitis, unspecified location; Tongue cancer (HCC); Bilateral impacted cerumen; Chronic pansinusitis; Chronic maxillary tajhnjqaa24/22/2025amboo flowsheet [facility] [place] [facility] [address] [facility] [address] [place] [phone] Abram Pulliam MD 08/28/2025Travelfrom Last 3 Months Family History Medical HistoryRelationNameCommentsStrokeDaughterDiabetesFatherDiabetesMother StrokeMotherMelanomaNeg HxRelationNameStatusCommentsDaughterAliveFatherDeceased MotherDeceased Social History Tobacco UseTypesPacks/DayYears UsedDateSmoking Tobacco: Every DayCigarettes0.5 53.8Started: 1972Smokeless Tobacco: Never Tobacco Cessation:Ready to Q uit: Not Asked; Counseling Given: Not Answered Comments:Smokes 6-10 cigarettes/day Alcohol UseStandard Drinks/WeekCommentsYes8 (1 standard drink = 0.6 oz pure alcohol)Caffeine >4 cups/daySex and Gender InformationValueDate RecordedSex Assigned at BirthNot on fileLegal AxiNxpr1701/19/2023 8:14 PM EDTGender Identity Not on fileSexual OrientationNot on file Last Filed Vital Signs Vital SignReadingTime TakenCommentsBlood Hhjmscjf318/9809 8:53 AM EDT Pulse--Temperature--Respiratory Rate--Oxygen Saturation--Inhaled Oxygen Concentration--Ijhsad22.9 kg (143 lb)08/28/2025 11:16 AM MLGTrlabo697.1 cm (5' 5 )08/28/2025 11:16 AM EDTBody Mass Index23.81 11:16 AM EDT Plan of Treatment DateTypeDepartmentCare Team (Latest Contact Info)Spxbsdqpqbg37/01/2025 11:20 AM ESTOffice Visit [facility] [place] [facility] [address] [facility] [address] [place] [phone] Abram Pulliam MD [address] [facility] [address] [place] [address] 08/27/2026 11:20 AM EDTOffice Visit [facility] [place] [facility] [address] [facility] [address] [place] [phone] Abram Pulliam MD [address] [facility] [address] [place] [address] Procedures Procedure NamePriorityDate/TimeAssociated DiagnosisCommentsXR PARANASAL SINUSES 3+ VIEWS09/05/2025 7:27 AM EDT from Last 3 Months Results * XR paranasal sinuses 3+ views (09/05/2025 7:27 AM EDT)Anatomical Region LateralityModalityHead, NeckRadiographic ImagingSpecimen (Source)Anatomical Location / LateralityCollection Method / VolumeCollection TimeReceived Time 09/05/2025 7:27 AM EDT Narrative 09/05/2025 7:29 AM EDT [facility] ?[address] ? [place], [facility] ?XRay Report ? Signed ? Patient: ADELFO NOLAN J ?MR#: [id number] ?? : 1955 ?Acct:[id number] ?? Age/Sex: 69 / M ?ADM Date: 09/05/25 ?? Loc: LAB ? Attending Dr: Abram Pulliam M.D. ? Ordering Physician: Abram Pulliam M.D. ?? Date of Service: 09/05/25 ?? Procedure(s): XR sinus min 3V ?? Accession Number(s): [id number] ? cc: Bird Crouch M.D.; Abram Pulliam M.D. ? [facility] ? [address] [facility] ? [place] [address] ? Patient Name: ?? ADELFO NOLAN ? MRN: [facility]:[id number] ? date: 1955 ?Sex: M ?? Assigned Patient Location: LAB ?? Current Patient Location: LAB ?? Accession/Order Number: [id number] ?? Exam Date: 09/05/2025 ??07:05 ?Report Date: 09/05/2025 ??07:27 ? At the request of: ?? ABRAM ??ADEBAYO ? Procedure: ??XR sinus min 3V ? [...] Dictation Location: RADIO-PC-16 ? Electronically authenticated by: [id number] ??Y ?? Date: 09/05/2025 ??07:27 ? Dictated By: ?Vance Nino D.O. ? Signed By: ?09/05/25 0729 ? DD/ 0727 ? TD/TT: ? Packager Head: Procedure Note Radiology, Radiologist, MD - 09/05/[address] [address] XRay Report Signed Patient: ADELFO NOLAN JMR#: [id number] : 1955cct:[id number] Age/Sex: 69 / MADM Date: 09/05/25 Loc: LAB Attending Dr: Abram Pulliam M.D. Ordering Physician: Abram Pulliam M.D. Date of Service: 09/05/25 Procedure(s): XR sinus min 3V Accession Number(s): [id number] cc: Bird Crouch M.D.; Abram Pulliam M.D. The [place] [id number] Patient Name: ADELFO NOLAN MRN: [id number] date: 1955 Sex: M Assigned Patient Location: LAB Current Patient Location: LAB Accession/Order Number: [id number] Exam Date: 09/05/2025 07:05 Report Date: 09/05/2025 [...] Nino M.D. 09/05/2025 7:27 AM Dictation Location: [place] [address] Electronically authenticated by: [id number] Y Date: 7:27 Dictated By: Vance Nino D.O. Signed By:09/05/25728 DD/ 6 TD/TT: Packager Head: Authorizing ProviderResult TypeResult StatusHimiguel Pulliam MDIMG XR PROCEDURES Final Result from Last 3 Months Insurance Care Teams Team MemberRelationshipSpecialtyStart Date Bird Crouch MD [address] [place] [phone] PCP - GeneralFamily Zfarmizb36/16/25
--- OUTSIDE RECORDS SUMMARY | 2025-09-11 07:52 | XMS_ITS ---
Author Organization [facility] Address [address] [place], [place] [address] Care Team Providers Care Bone Char Puller Name Role Phone Bird Crouch MD Primary Care Provider [phone] Active Problems ProblemNoted DateDiagnosed DateMalignant neoplasm of head, face and neck 1Lung rwclqcs3712/18/20204554Jwbykovlpuwzlosj40/18/2018Mucositis due to radiation bfvmsmh4002/27/2018Severe protein-calorie kbsaghiteqey05/23/2018 Overview (02/27/2018): 17% unintentional weight loss in [...]
--- OUTSIDE RECORDS SUMMARY | 2025-09-11 07:52 | XMS_ITS | Encounter Summary ---
Author Organization [facility] Address [address] [place] [address] Care Team Providers Care Licensed Pharmacist Name Role Phone Bird Crouch MD Primary Care Provider [phone] Encounter Details DateTypeDepartmentCare Team (Latest Contact Info)Uhmvlqwnsaa07/22/2025amboo flowsheet [facility] [place] [facility] [address] [facility] [address] [place] [address] Kelly Pulliam MD [address] [facility] [address] [place], [place] [address] Social History Tobacco UseTypesPacks/DayYears UsedDateSmoking Tobacco: Every DayCigarettes0.5 53.8Started: 1972Smokeless Tobacco: Never Comments:Smokes 6-10 cigaret yoko/day Alcohol UseStandard Drinks/WeekCommentsYes8 (1 standard drink = 0.6 oz pure alcohol)Caffeine >4 cups/daySex and Gender InformationValueDate RecordedSex Assigned at BirthNot on fileLegal YddWpsa3601/19/2023 8:14 PM EDTGender Identity Not on fileSexual OrientationNot on filedocumented as of this encounter Plan of Treatment DateTypeDepartmentCare Team (Latest Contact Info)Ejubgmccuou09/01/2025 11:20 AM ESTOffice Visit [facility] [place] [facility] [address] [facility] [address] [place] [address] Kelly Pulliam MD [address] [facility] [address] [place], [place] [address] 08/27/2026 11:20 AM EDTOffice Visit [facility] [place] [facility] [address] [facility] [address] [place] [address] Kelly Pulliam MD [address] [facility] [address] [place] [address] documented as of this encounter Visit Diagnoses Not on filedocumented in this encounter Care Teams Team MemberRelationshipSpecialtyStart DateEnd Date Bird Crouch MD [address] [place] [address] PCP - GeneralFamily Bwtsfqgt19/16/25documented as of this encounter
--- OUTSIDE RECORDS SUMMARY | 2025-09-11 07:52 | XMS_ITS | Encounter Summary ---
Author Organization [facility] Address [address] [place] [address] Care Team Providers Care Brand Strategy Manager Name Role Phone Bird Crouch MD Primary Care Provider [phone] Encounter Details DateTypeDepartmentCare Team (Latest Contact Info)Tncrtkfhwyj78/31/2025Results Follow-Up [facility] [place] [facility] [address] [facility] [address] [place] [address] Kelly Pulliam MD [address] [facility] [address] [place], [place] [phone] XR paranasal sinuses 3+ views Social History Tobacco UseTypesPacks/DayYears UsedDateSmoking Tobacco: Every DayCigarettes0.5 53.8Started: 1972Smokeless Tobacco: Never Comments:Smokes 6-10 cigaret yoko/day Alcohol UseStandard Drinks/WeekCommentsYes8 (1 standard drink = 0.6 oz pure alcohol)Caffeine >4 cups/daySex and Gender InformationValueDate RecordedSex Assigned at BirthNot on fileLegal RtkAnkj0601/19/2023 8:14 PM EDTGender Identity Not on fileSexual OrientationNot on filedocumented as of this encounter Miscellaneous Notes * Telephone Encounter - Kelly Pulliam MD - 09/06/2025 12:23 PM EDT Tell pt no sinusitis on xray documented in this encounter Plan of Treatment DateTypeDepartmentCare Team (Latest Contact Info)Izylvxtzohs73/11/2024 11:20 AM ESTOffice Visit [facility] [place] [facility] [address] [facility] [address] [place] [address] Kelly Pulliam MD [address] [place] [address] [place] [address] 08/27/2026 11:20 AM EDTOffice Visit [facility] [place] [facility] [address] [facility] [address] [place] [address] Kelly Pulliam MD [address] [facility] [address] [place] [address] documented as of this encounter Visit Diagnoses Not on filedocumented in this encounter Care Teams Team MemberRelationshipSpecialtyStart DateEnd Date Bird Crouch MD [address] [place] [address] PCP - GeneralFamily Mdsyxies41/16/25documented as of this encounter
--- OUTSIDE RECORDS SUMMARY | 2025-09-11 07:54 | XMS_ITS | CCD ---
Author Organization [facility] Care Team Providers Care Power Tong Operator Name Role Phone Elba De La Cruz [...] HOYVERONICAELBA M Primary Care Unavailable ABHYANKAR, WYATT Referring Unavailable ABHYANKAR, WYATT Attending Unavailable ELBA DE LA CRUZ M Primary Care Unavailable ABHYANKAR, WYATT Referring Unavailable HOY, ELBA M Primary Care Unavailable ABHYANKAR, WYATT Attending Unavailable ELBA DE LA CRUZ M Primary Care Unavailable ABHYANKAR, WYATT Referring Unavailable Elba De La Cruz MD Primary Care Provider [phone] ABRAM FIORE Attending Unavailable Medications Current Medications MedicationDrug Class(es)DatesSig (Normalized)Sig (Original)ascorbic acid 60 mg / cholecalciferol 0.01 mg / folic acid 0.3 mg / niacin 13.5 mg / riboflavin 1.2mg / sodium fluoride 0.55 mg / thiamine 1.05 mg / vitamin a 0.75 mg / vitamin b12 0.0045 mg / vitamin b6 1.05 mg / vitamin e 6.75 mg chewable tablet (11 sources)Nicotinic Acid, Vitamin A, Vitamin B12, Vitamin D, Vitamin C Pediatric Multivitamins-Fl (MultiVitamin + Fluoride) 0.25 MG chewable tablet Activecalcium carbonate 250 mg/ml oral suspension (11 sources)calcium carbonate 1250 MG/5ML Take 1,250 mg by mouth in the morning and 1,250 mg at noon and 1,250 mg in the evening. Take with meals. Active cefdinir 300 mg oral capsule (11 sources)Cephalosporin Antibacterialtake 1 capsule by mouth in the morning cefdinir (Omnicef) 300 MG capsule Take 300 mg by mouth in the morning and 300 mg before bedtime. Activefluconazole 100 mg oral tablet (3 sources)Azole AntifungalStart: 79-85-4406Qxubxbmy 100 MG tablet 1 (one) time each day at the same time 08/21/2025 Activeiv contrast (will be provided with radiology test) (9 sources)Start: 01-21-2025 End: 65-82-1529bkzcjq 1 dose intravenously once, then inject 1 [...] 1 Each 01/21/2025 01/21/2025 ActiveStart: 01-21-2025 End: 27-74-2473xf contrast (will be provided with radiology test) [...] 1 Each 01/21/2025 01/22/2025 ActiveStart: 06-29-2024 End: 32-55-8708nryvjw 1 dose intravenously once, then inject 1 [...] 1 Each 06/29/2024 06/29/2024 ExpiredStart: 06-29-2024 End: 17-39-0292vx contrast (will be provided with radiology test) [...] 1 Each 06/29/2024 06/30/2024 ExpiredStart: 03-30-2024 End: 14-27-1353qu contrast (will be provided with radiology test) [...] Each 0 03/30/2024 03/31/2024 ExpiredStart: 12-19-2023 End: 34-65-7352mi contrast (will be provided with radiology test) [...] Each 0 12/19/2023 12/20/2023 ActiveStart: 12-16-2022 End: 68-02-3263rr contrast (will be provided with radiology test) [...] Each 0 12/16/2022 12/17/2022 ActiveStart: 12-16-2022 End: 05-94-2481hzovkr 1 dose intravenously once, then inject 1 [...] protocolin the CT contrast administration guidelines link.Lactobacillus (11 sources)Lactobacillus (FLORANEX PO) ActiveLactobacillus (FLORANEX PO) Floranex ActivelevoFLOXacin 750 mg oral tablet (14 sources)Quinolone Antimicrobialtake 1 tablet by mouth once dailylevoFLOXacin (Levaquin) 750 MG tablet Take 1 tablet by mouth Daily Activemagnesium oxide 400 mg oral tablet (11 sources)take 1 tablet by mouth once dailymagnesium oxide (Mag-Ox) 400 mg tablet Take 400 mg by mouth Daily ActiveMultiple Vitamin (multivitamin) capsule (11 sources)take 1 capsule by mouth once dailyMultiple Vitamin (multivitamin) capsule Take 1 capsule by mouth Daily Activetake 1 capsule by mouth in the morningMultiple Vitamin (multivitamin) capsule Take 1 capsule by mouth in the morning. Patkcf66 hr nicotine 0.875 mg/hr transdermal system (11 sources)Cholinergic Nicotinic Agonistnicotine (Nicoderm, Step 1) 21 MG/24HR patch Place 1 patch on the skin 1 (one) time each day at thesame time Active omeprazole 40 mg delayed release oral capsule (11 sources)Proton Pump Inhibitortake 1 capsule by mouth before mealtime omeprazole (PriLOSEC) [address] capsule Take 40 mg by mouth in the morning. Take before meals. Activemicroencapsulated potassium chloride 20 meq extended release oral tablet (11 sources)take 1 tablet by mouth in the morningpotassium chloride CR (KLOR- CON) 20 MEQ ER tablet Take 20 mEq by mouth in the morning and 20 mEq before bedtime. ActivepredniSONE 10 mg oral tablet (3 sources)Start: 95-98-7267hyzuzeUTCO (Deltasone) 10 MG tablet 5 TABS DAILY X3 DAYS, 4 TABS X3 DAYS, 3 TABS X3 DAYS, 2 TABS X3DAYS, 1 TAB X3 DAYS, 1/2 TAB X4 DAYS 07/23/2025 Activesofosbuvir 400 mg / velpatasvir 100 mg oral tablet (5 sources)Hepatitis C Virus NS5A Inhibitor, Hepatitis C Virus Nucleotide Analog NS5B Polymerase InhibitorStart: 12-30-2021 End: 86-25-0934ijkc 1 tablet by mouth once dailyEpclusa 400 mg-100 mg oral tablet tab(s), Oral, Daily, Refills(s) 0 Start Date: 04/06/22 Status: Ordered Comment on above:Take 1 tablet by mouth once daily.tamsulosin hydrochloride 0.4 mg oral capsule (14 sources)alpha-Adrenergic BlockerStart: 14-20-0057tblo 1 capsule by mouth oncetamsulosin (FLOMAX) 0.4 mg Take 1 capsule by mouth every afternoon. 11/22/2023 ActiveComment on above:Take 1 capsule by mouth every afternoon. thiamine 100 mg oral tablet (11 sources)take 1 tablet by mouth once dailythiamine (Vitamin B-1) 100 MG tablet Take 100 mg by mouth Daily Active Problems Active Problems Problem ClassificationProblemDateDocumented DateEpisodic/ChronicAlcohol-related disorders (9 sources)Alcohol abuse; Translations: [Alcohol abuse, uncomplicated]Onset: 094667-36-1756GfksyetTkmdwf of head and neck (20 sources)Malignant tumor of head and neck; Translations: [Malignant neoplasm of head, face and neck]Onset: 150934-83-5407JbuuqluPtaosb; other and unspecified primary (10 sources)History of malignant neoplasm of head and/or neck; Translations: [Personal history of malignant neoplasm of other organs and systems]12-19-2023 EpisodicChronic obstructive pulmonary disease and bronchiectasis (3 sources)Chronic obstructive lung disease; Translations: [Chronic obstructive pulmonary disease, unspecified]Onset: 397128-22-8162BjosudwLtbscjiupu and other anemia (1 source)Deficiency and other anemia; Translations: [D64.9 - Anemia, unspecified]Onset: 24-63-9000Ytffbhsf of white blood cells (3 sources)Leukocytosis; Translations: [Elevated white blood cell count, unspecified]Onset: 515817-56-0933MaojepdDyjxzbloc hypertension (11 sources)Hypertensive disorder; Translations: [Essential (primary) hypertension]Onset: 105962-48-1544GyqqksvOckgshxu of lower limb (10 sources)Other fracture of upper and lower end of right fibula, initial encounter for closed fracture; Translations: [Closed fracture of ankle]Onset: 756001-64-1578EuladnytQbkhmcdne (9 sources)Chronic hepatitis C; Translations: [Chronic viral hepatitis C]Onset: 98-59-1543HaphyctKohrhgruhjq of prostate (13 sources)Benign prostatic hypertrophy without outflow obstruction; Translations: [Benign prostatic hyperplasia without lower urinary tract symptoms]Onset: 54-65-1219AawgkyoBhjpuhzkijauy and screening for infectious disease (1 source)Hepatitis C antibody test positive; Translations: [Other specified abnormal immunological findings in serum]EpisodicNutritional deficiencies (20 sources)Deficiency of macronutrients; Translations: [Unspecified severe protein-calorie malnutrition]Onset: 051463-73-9563LihqhmcCslph connective tissue disease (3 sources)Recurrent falls ; Translations: [Repeated falls]Onset: 08-28-2025 36-15-5564AvgoysehBfkxz ear and sense organ disorders (2 sources)Sensorineural hearing loss, bilateral; Translations: [Sensorineural hearing loss, bilateral]13-82-1036LyqzodzRyoid ear and sense organ disorders (2 sources)Impacted cerumen of bilateral ears; Translations: [Impacted cerumen, bilateral]60-75-8321VaqgwqehAyftl gastrointestinal disorders (3 sources)Diarrhea; Translations: [Diarrhea, unspecified]Onset: 08-28-2025 90-54-3681ZfpujhovEzzfd gastrointestinal disorders (3 sources)Dysphagia; Translations: [Dysphagia, unspecified]Onset: 08-28-2025 05-43-9454ZypuoozxZhubm gastrointestinal disorders (3 sources)Swallowing painful; Translations: [Dysphagia, unspecified]Onset: 769850-31-4791PkyiazrbKngqh hematologic conditions (20 sources)Myelosuppression; Translations: [Other specified diseases of blood and blood-forming organs]Onset: 560198-11-9628LgvyxxaIgphe injuries and conditions due to external causes (2 sources)Radiation injury; Translations: [Radiation sickness, unspecified, sequela]EpisodicOther liver diseases (2 sources)Steatosis of liver; Translations: [Fatty (change of) liver, not elsewhere classified]59-85-6056GhhkpooAvjat lower respiratory disease (3 sources)Solitary nodule of lung; Translations: [Solitary pulmonary nodule] Onset: 594000-47-3839CshqpggnIypbt male genital disorders (3 sources)Male erectile dysfunction, unspecified; Translations: [Impotence of organic origin]Onset: 497421-11-8799HzcrsrcCkzld nervous system disorders (3 sources)Abnormal gait; Translations: [Unsteadiness on feet]Onset: 08-28-2025 61-75-5872CpkcuiuqUjohd non-traumatic joint disorders (3 sources)Arthropathy associated with a neurological disorder; 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, unspecified site]Onset: 539883-69-6129RzfczboZiaof non- traumatic joint disorders (4 sources)Pain in right ankle and joints of right foot; Translations: [PAIN IN RIGHT ANKLE]Onset: 51-13-0752BayiuatqCcxyv nutritional; endocrine; and metabolic disorders (11 sources)Porphyria cutanea tarda; 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] Onset: 747229-46-1999VzlptsfSfjry upper respiratory disease (2 sources)Allergic rhinitis; Translations: [Other allergic rhinitis]08-28-2025 ChronicOther upper respiratory infections (2 sources)Chronic sinusitis; Translations: [Chronic sinusitis, unspecified] 52-93-3074NhazlsxWcydbmxhe by other medications and drugs (20 sources)Mucositis following radiation therapy; Translations: [Oral mucositis (ulcerative) due to radiation]Onset: 135910-87-5137OjbgvidfNwgeugpkx malignancies (20 sources)Metastatic squamous cell carcinoma; Translations: [Secondary malignant neoplasm of other specified sites]Onset: 255033-65-7636Wjnbhvg Skull and face fractures (14 sources)Closed fracture of right maxilla; Translations: [Maxillary fracture, right side, initial encounter for closed fracture]Onset: 351420-48-9966 EpisodicSubstance-related disorders (15 sources)Smoker; Translations: [Nicotine dependence, unspecified, uncomplicated]Onset: 909863-01-6659VqnhbhbReotyhh disorders (2 sources)Disorder of thyroid gland; Translations: [Disorder of thyroid, unspecified]Episodic Past or Other Problems Problem ClassificationProblemDateDocumented DateEpisodic/ChronicCancer of head and neck (12 sources)History of malignant neoplasm of tongue; Translations: [Personal history of malignant neoplasm of tongue]Onset: 06-21-2023 Resolved: 089011-00-1867BblcnforHxsmhr; other and unspecified primary (1 source)Personal history of malignant neoplasm of other organs and systems; Translations: [History of head and neck cancer]Onset: 53-30-9818Zpeqstrj Genitourinary symptoms and ill-defined conditions (14 sources)Nocturia; Translations: [Nocturia]Onset: 04-06-2022 Resolved: 86-43-2714RrvcgtenLrnvgqzzbahbe (3 sources)Localized enlarged lymph nodes; Translations: [Localized enlarged lymph nodes]Onset: 838885-24-6195QuyhognwWtuil lower respiratory disease (20 sources)Multiple nodules of lung; Translations: [Other nonspecific abnormal finding of lung field]Onset: 619477-59-4491MznpzapbSrfvq lower respiratory disease (1 source)Other nonspecific abnormal finding of lung field; Translations: [Lung nodules]Onset: 87-90-6702RdfyuabqOwvma screening for suspected conditions (not mental disorders or infectious disease) (3 sources)Liver function tests abnormal; Translations: [Other specified abnormal findings of blood chemistry]Onset: 738684-61-1635CjcjdyqrSbxrq upper respiratory disease (20 sources)Hoarse; Translations: [Dysphonia]Onset: 055956-95-0879Ankzkzyt Results Test NameValueInterpretationReference RangeFacilityXR Sinuses 3 Viewson 30-91-[place], [place] [address] XRay Report Signed Patient: CARSON MORSE MR#: [id number] : 1955 Acct:[id number] Age/Sex: 69 / M ADM Date: 09/05/25 Loc: LAB Attending Dr: Abram Fiore M.D. Ordering Physician: Abram Fiore M.D. Date of Service: 09/05/25 Procedure(s): XR sinus min 3V Accession Number(s): [id number] cc: Elba De La Cruz M.D.; Abram Fiore M.D. [place] [address] Patient Name: CARSON MORSE MRN: [id number] date: 1955 Sex: M Assigned Patient Location: LAB Current Patient Location: LAB Accession/Order Number: [id number] Exam Date: 09/05/2025 07:05 Report Date: 09/05/2025 07:27 At the request of: ABRAM FIORE MD Procedure: XR sinus min 3V 3 views of sinuses HISTORY: Chronic sinusitis. Rhinitis. No fluid levels are mucosal thickening of the sinuses. Bony structures unremarkable. XR/XR sinus min 3V IMPRESSION: No mucosal thickening or fluid levels of the sinuses. Impression dictated by: Vance Nino M.D. 09/05/2025 7:27 AM Dictation Location: RADIO-PC-16 Electronically authenticated by: [id number] Y Date: 09/05/2025 07:27 Dictated By: Vance Nino D.O. Signed By: 09/05/25728 DD/ 6 TD/TT: Registered Dietitian:Aleksandr Mcgee MD - 09/05/2025 [place] [address] XRay Report Signed Patient: CARSON MORSE MR#: [id number] : 1955 Acct:[id number] Age/Sex: 69 / M ADM Date: 09/05/25 Loc: LAB Attending Dr: Abram Fiore M.D. Ordering Physician: Abram Fiore M.D. Date of Service: 09/05/25 Procedure(s): XR sinus min 3V Accession Number(s): [id number] cc: Elba De La Cruz M.D.; Abram Fiore M.D. The [place] [address] Patient Name: CARSON MORSE MRN: [id number] date: 1955 Sex: M Assigned Patient Location: LAB Current Patient Location: LAB Accession/Order Number: [id number] Exam Date: 09/05/2025 07:05 Report Date: 09/05/2025 07:27 At the request of: ABRAM FIORE MD Procedure: XR sinus min 3V 3 views of sinuses HISTORY: Chronic sinusitis. Rhinitis. No fluid levels are mucosal thickening of the sinuses. Bony structures unremarkable. XR/XR sinus min 3V IMPRESSION: No mucosal thickening or fluid levels of the sinuses. Impression dictated by: Vance Nino M.D. 09/05/2025 7:27 AM Dictation Location: [place] [address] Electronically authenticated by: [id number] Y Date: 09/05/2025 07:27 Dictated By: Vance Nino D.O. Signed By: 09/05/25728 DD/ 6 TD/TT: Registered Dietitian: SILV[facility] HealthcareRadiology Study observation (narrative)SILVIA HealthcareXR Sinuses 3 ViewsOrdered By: Radiologist Radiology on 37-10-2572JHDP [email or web address] Work Phone: cNOVSPon [phone] ([place]) Office ([place]) CARSON MORSE ([id number]) 1955 M Date Time Provider Department 01/21/25 [...] AM Signed NAME: Carson Morse CLINIC NO.: [id number] DATE OF SERVICE: January 21, 2025 (Mirian) [...] - CT N/Chest: Bilater (more content not included)...NormalMercy Health – The Jewish HospitalCNPNon 35-20-0510XPXILrnoncwil (MYLA) CARSON MORSE ([id number]) 1955 M Date Time Provider Department 01/18/25 HALIMA NIXON During your visit today, we recorded the following information about you: Mary Villarreal RN 01/18/2025 10:53 AM Signed Pt notified of results and recommendations and verbalized understanding. Schedulers, please call pt to schedule US, Fibroscan and OV. Orders are already placed. Thank you, NOLAN Meeks Noma, MD [facility] Nurse Pool Normal AFP Patient is overdue for US He needs to schedule MD Dai Lam Sharon 01/18/2025 12:32 PM Signed Unable to lvm and no mychart Ruifna Almaraz 01/28/2025 2:49 PM Signed Attempted to [...] 12/18/2020 Encounter Status:Closed by IVETTE LALA on 01/18/25NormalCMercy Health [facility]iff[facility] SerPl-mCncon 40-75-7338GJX [Mass/Vol]4.54 ng/mLNormal<9.00Mer[facility] Jewish HospitalComment on above:Order Comment: Specimen Type: BLOOD SPECIMENOrdering Facility: [facility] Address:[address] [place], [place] [address]Mqlxjj Comment: The Alpha-Fetoprotein test was performed using the Uma Storrzel DxI immunoenzymatic assay. Results obtained with different assay methods or kits cannot be used interchangeably.Performed By: #### 1834-1 ####[facility] LABCLIA [id number] [address] [address] [facility] W Auto Differential panel (Bld)on 64-21-0656Dpngyvxrh (Bld) [#/Vol]0.09 10*3/uLNINFSt. Rita'S Hospital Basophils/100 WBC (Bld)1.9 %St. [facility]'S HospitalDifferential cell count method Nom (Bld)AutoCleveland ClinicEosinophils (Bld) [#/Vol]0.11 10*3/uLNINFSt. Rita'S HospitalEosinophils/100 WBC (Bld)2.4 %St. Rita'S HospitalErythrocyte distribution width (RBC) [Ratio]12.2 %11.5 - 15.0 %St. Rita'S HospitalHematocrit (Bld) [Volume fraction]31.6 %Low39.0 - 51.0 %St[facility]'S HospitalHemoglobin (Bld) [Mass/Vol]10.6 g/dLLow13.0 - 17.0 g/dLSt. Rita'S HospitalImmature granulocytes (Bld) [#/Vol]NINF St. Rita'S HospitalImmature granulocytes/100 WBC (Bld)0.4 %[facility] Interpretation and review of laboratory resultsAbnormalCLicking Memorial Hospital Lymphocytes (Bld) [#/Vol]0.96 10*3/uLLowSt. Rita'S HospitalLymphocytes/100 WBC (Bld)20.7 %[facility] SystemH (RBC) [Entitic mass]33.9 pg26.0 - 34.0 pg [facility] SystemHC (RBC) [Mass/Vol]33.5 g/dL30.5 - 36.0 g/dLSt. Rita'S Hospital MCV (RBC) [Entitic vol]101 aDKifm47.0 - 100.0 fLCleveland ClinicMonocytes (Bld) [#/Vol]0.38 10*3/uLNINFSt. Rita'S HospitalMonocytes/100 WBC (Bld)8.2 %St. Rita'S HospitalNeutrophils (Bld) [#/Vol]3.08 10*3/uLSt. Rita'S HospitalNeutrophils/100 WBC (Bld)66.4 %St. [facility]'S HospitalNucleated RBC (Bld) [#/Vol]NINFCLicking Memorial Hospital Nucleated RBC/100 WBC (Bld) [Ratio]0 %/100 WBCCleveland ClinicPlatelet mean volume (Bld) [Entitic vol]9.4 fL9.0 - 12.7 fLCLicking Memorial HospitalPlatelets (Bld) [#/Vol]209 10*3/uLAlmo ClinicRBC (Bld) [#/Vol]3.13 10*6/uLLow4.20 - 6.00 m/[facility] HospitalWBC (Bld) [#/Vol]4.64 10*3/uLSamaritan North Health Center ClinicBasophils (Bld) [#/Vol]0.09 10*3/uLNormal<0.11CMercy Health Lor[facility] Hospital Comment on above:Order Comment: Specimen Type: BLOOD SPECIMENOrdering Facility: [facility] Address:[address] [place] [address] Performed By: #### 83448-1 ####[facility] LABCLIA [id number] [place], [place] [address]Leyjvfodu/100 WBC (Bld)1.9 % NormalMer[facility] Health [facility] on above:Order Comment: Specimen Type: BLOOD SPECIMENOrdering Facility: [facility] Address:[address] [place], [place] [address]Performed By: #### 66996-0 ####[facility] LABIA [id number] [place] [address] Differential cell count method Nom (Bld)AutoNormalCMercy Health Lorain Hospital Comment on above:Order Comment: Specimen Type: BLOOD SPECIMENOrdering Facility: [facility] Address:[address] [place] [address] Performed By: #### 52041-1 ####[facility] LABIA [id number] [place], [place] [address]Wnhsraostxl (Bld) [#/Vol]0.11 10*3/uLNormal<0.46[facility] on above:Order Comment: Specimen Type: BLOOD SPECIMENOrdering Facility: [facility] Address:[address] [place], [place] [address]Performed By: #### 10259-6 ####[facility] LABCLIA [id number] [place], [place] [address]Fflbfgvgrnj/100 WBC (Bld)2.4 %NormalMercy Health Willard Hospital on above:Order Comment: Specimen Type: BLOOD SPECIMENOrdering Facility: [facility] Address:[address] [place], [place] [address]Performed By: #### 07493-3 ####[facility] LABIA [id number] [place], [place] [address]Vvdcpwtexbw distribution width (RBC) [Ratio]12.2 %Kkjbke91.5-15.0[facility] on above: Order Comment: Specimen Type: BLOOD SPECIMENOrdering Facility: [facility] Address:[address] [place], [place] [address]Performed By: #### 00984- 8 ####[facility] LABIA [id number] [place], [place] [address]Jowqzjxagf (Bld) [Volume fraction]31.6 %Low39.0-51.0 [facility] on above:Order Comment: Specimen Type: BLOOD SPECIMENOrdering Facility: [facility] Address:[address] [place], [place] [address]Performed By: #### 90926-8 ####[facility] LABIA [id number] [place], [place] [address]Hiyjxsrgwr (Bld) [Mass/Vol]10.6 g/dLLow13.0-17.0[facility] on above:Order Comment: Specimen Type: BLOOD SPECIMENOrdering Facility: [facility] Address:[address] [place], [place] [address]Performed By: #### 27547- 8 ####[facility] LABIA [id number] [place], [place] [address]Cmcbdtoc granulocytes (Bld) [#/Vol]10*3/uLNormal<0.10 [facility] on above:Order Comment: Specimen Type: BLOOD SPECIMENOrdering Facility: [facility] Address:[address] [place], [place] [address]Performed By: #### 30016-7 ####[facility] LABCLIA [id number] [place], [place] [address]Izvveobq granulocytes/100 WBC (Bld)0.4 %[facility] on above: Order Comment: Specimen Type: BLOOD SPECIMENOrdering Facility: [facility] Address:[address] [place], [place] [address]Performed By: #### 60918- 8 ####[facility] LABCLIA [id number] [place], [place] [address]Brxlbdmkqnr (Bld) [#/Vol]0.96 10*3/uLLow1.00-4.00 [facility] on above:Order Comment: Specimen Type: BLOOD SPECIMENOrdering Facility: [facility] Address:[address] [place], [place] [address]Performed By: #### 06349-8 ####[facility] LABCLIA [id number] [place], [place] [address]Oegjxrxvqbp/100 WBC (Bld)20.7 %NormalMercy Health Willard Hospital on above:Order Comment: Specimen Type: BLOOD SPECIMENOrdering Facility: [facility] Address:[address] [place], [place] [address]Performed By: #### 29661-5 ####[facility] LABCLIA [id number] [place], [place] [address]KVL (RBC) [Entitic mass]33.9 hvBoccly71.0-34.0[facility] on above:Order Comment: Specimen Type: BLOOD SPECIMENOrdering Facility: [facility] Address:[address] [place], [place] [address]Performed By: #### 56542-0 ####[facility] LABCLIA [id number] [place], [place] [address]QWXU (RBC) [Mass/Vol]33.5 g/pXPtkbcg46.5-36.0[facility] on above: Order Comment: Specimen Type: BLOOD SPECIMENOrdering Facility: [facility] Address:[address] [place], [place] [address]Performed By: #### 39611- 8 ####[facility] LABIA [id number] [place], [place] [address]FVB (RBC) [Entitic vol]101.0 sHEdeg75.0-100.0[facility] on above:Order Comment: Specimen Type: BLOOD SPECIMENOrdering Facility: [facility] Address:[address] [place], [place] [address]Performed By: #### 24018-9 ####[facility] [id number] [place], [place] [address]Ulywpfkvj (Bld) [#/Vol]0.38 10*3/uLNormal<0.87[facility] on above:Order Comment: Specimen Type: BLOOD SPECIMENOrdering Facility: [facility] Address:[address] [place], [place] [address]Performed By: #### 48214- 8 ####[facility] LABIA [id number] [place], [place] [address]Hvatqojvv/100 WBC (Bld)8.2 %NormalMercy Health Willard Hospital on above:Order Comment: Specimen Type: BLOOD SPECIMENOrdering Facility: [facility] Address:[address] [place], [place] [address]Performed By: #### 01252-4 ####[facility] LABIA [id number] [place], [place] [address]Kqiuvbzhhje (Bld) [#/Vol]3.08 10*3/uLNormal1.45-7.50[facility] on above:Order Comment: Specimen Type: BLOOD SPECIMENOrdering Facility: [facility] Address:[address] [place], [place] [address]Performed By: #### 23634-2 ####[facility] LABCLIA [id number] [place], [place] [address]Vimpnnnirvy/100 WBC (Bld)66.4 %NormalMercy Health Willard Hospital on above:Order Comment: Specimen Type: BLOOD SPECIMENOrdering Facility: [facility] Address:[address] [place], [place] [address]Performed By: #### 22376-4 ####[facility] LABCLIA [id number] [place], [place] [address]Yiuqzlpnu RBC (Bld) [#/Vol] 10*3/uLNormal<0.01[facility] on above:Order Comment: Specimen Type: BLOOD SPECIMENOrdering Facility: [facility] Address:[address] [place], [place] [address]Performed By: #### 72306-0 ####[facility] LABCLIA [id number] [place], [place] [address]Lzctuypew RBC/100 WBC (Bld) [Ratio]0.0 /100 WBCNormal [facility] on above:Order Comment: Specimen Type: BLOOD SPECIMENOrdering Facility: [facility] Address:[address] [place], [place] [address]Performed By: #### 01414-0 ####[facility] LABCLIA [id number] [place], [place] [address]Wvsdolxk mean volume (Bld) [Entitic vol]9.4 fLNormal9.0-12.7CCleveland Clinic [facility] on above:Order Comment: Specimen Type: BLOOD SPECIMENOrdering Facility: [facility] Address:[address] [place] [address] Performed By: #### 34589-6 ####[facility] LABCLIA [id number] [place], [place] [address]Ngwmoaybu (Bld) [#/Vol]209 10*3/jMOzauuw417-293MkffnrdvyMercy Health Willard Hospital on above:Order Comment: Specimen Type: BLOOD SPECIMENOrdering Facility: [facility] Address:[address] [place], [place] [address]Performed By: #### 99209-4 ####[facility] LABCLIA [id number] [place], [place] [address]WAC (Bld) [#/Vol]3.13 10*6/uLLow4.20-6.00[facility] on above:Order Comment: Specimen Type: BLOOD SPECIMENOrdering Facility: [facility] Address:[address] [place], [place] [address]Performed By: #### 41916-7 ####[facility] LABIA [id number] [place], [place] [address]OOR (Bld) [#/Vol]4.64 10*3/uL Normal3.70-11.00[facility] on above:Order Comment: Specimen Type: BLOOD SPECIMENOrdering Facility: [facility] Address:[address] [place], [place] [address]Performed By: #### 23197-0 ####[facility] LABIA [id number] [place], [place] [address]VD CHEST W IVCONon [id number] CHEST W IVCON* * *Final Report* * * DATE OF EXAM: Jan 10 2025 3:05PM [facility] 0539 - CT CHEST W IVCON [...] any questions regarding this interpretation, please call [phone]. If you are unable to reach us at the number above, please feel free to contact [facility] eRadiology at [phone]. [id number]_[email or web address] Medical Specialty [facility], Inc NECK SOFT TISSUE W IVCONon [id number] NECK SOFT TISSUE W IVCON* * *Final Report* * * DATE OF EXAM: Jan 10 2025 3:05PM [facility] 0013 - CT NECK SOFT TISSUE [...] amalgam. Parotid and submandibular spaces are normal. Plate Former spaces appear normal. Infrahyoid Neck: Hypopharynx, larynx, [...] any questions regarding this interpretation, please call [phone]. If you are unable to reach us at the number above, please feel free to contact [facility] eRadiology at [phone]. [id number]_IDCSIACNNormalSelect Medical Specialty Hospital [facility], Inc Neck W contrast Javier 47-35-5866LNTJRWSNDU: Redemonstration of the posttreatment related changes in [...] any questions regarding this interpretation, please call [phone]. If you are unable to reach us at the number above, please feel free to contact [facility] eRadiology at [phone].DIVISION OF RADIOLOGY* * *Final Report* * * DATE OF EXAM: Jan 10 2025 3:05PM [facility] 0013 - CT NECK SOFT TISSUE [...] amalgam. Parotid and submandibular spaces are normal. Plate Former spaces appear normal. Infrahyoid Neck: Hypopharynx, larynx, [...] accession. Other: Not applicable. DIVISION OF RADIOLOGYProvider, [facility] [place] - 01/10/2025 * * *Final Report* * * DATE OF EXAM: Jan 10 2025 3:05PM [facility] 0013 - CT NECK SOFT TISSUE [...] amalgam. Parotid and submandibular spaces are normal. Plate Former spaces appear normal. Infrahyoid Neck: Hypopharynx, larynx, [...] any questions regarding this interpretation, please call [phone]. If you are unable to reach us at the number above, please feel free to contact [facility] Hospital[facility] at [phone]. [facility]S HospitalRadiology Study observation (narrative)[facility]'S HospitalCT Neck W contrast IVOrdered By: Ccf Provider on [id number] [facility] Critical Care HospitalComprehensive metabolic 2000 panelOrdered By: Jess Baker on 91-88-5950Qzhvqsk [Mass/Vol]4.4 g/dL3.9 - 4.9 g/dLAlmo ClinicALP [Catalytic activity/Vol]79 U/L38 - 113 U/L Almo ClinicALT [Catalytic activity/Vol]8 U/LLow10 - 54 U/LCLicking Memorial Hospital Anion gap [Moles/Vol]11 mmol/L8 - 15 mmol/LCleveland ClinicAST [Catalytic activity/Vol]14 U/L14 - 40 U/LCleveland ClinicBilirubin [Mass/Vol]0.6 mg/dL0.2 - 1.3 mg/dLAlmo ClinicCalcium [Mass/Vol]9.6 mg/dL8.5 - 10.2 mg/dLAlmo ClinicChloride [Moles/Vol]102 mmol/L98 - 107 mmol/LCleveland ClinicCO2 [Moles/Vol]25 mmol/L22 - 30 mmol/LCleveland ClinicCreatinine [Mass/Vol]0.68 mg/dLLow0.73 - 1.22 mg/dLAlmo ClinicGFR/1.73 sq M.predicted among non- blacks MDRD (S/P/Bld) [Vol rate/Area]101 mL/min/{1.73_m2}- [facility] Comment on above:Estimated Glomerular Filtration Rate [...] not accurately reflect actual GFR.Glucose [Mass/Vol] 100 mg/rUGqix99 - 99 mg/dLDelaware County Hospital on above:[place] Diabetes Association (ADA) provides guidance for cutoff [...] Standards of Medical Care in Diabetes 2016, [place] Diabetes Association. Diabetes Care. 2016.39(Suppl 1). Interpretation and review of laboratory resultsAbnormalCleveland ClinicPotassium [Moles/Vol]3.7 mmol/L3.7 - 5.1 mmol/LCwexner medical center ClinicProtein [Mass/Vol]6.8 g/dL 6.3 - 8.0 g/dLDunlap Memorial Hospitalodium [Moles/Vol]138 mmol/L136 - 144 mmol/L [facility]'S HospitalUrea nitrogen [Mass/Vol]9 mg/dL9 - 24 mg/dLAvita Health SystemComprehensive metabolic 2000 panelon 18-21-9088Sxjusqs [Mass/Vol]4.4 g/dLNormal3.9-4.9CC[facility] on above:Order Comment: Specimen Type: BLOOD SPECIMENOrdering Facility: [facility] Address:[address] [place], [place] [address]Xjsplrywr By: #### 96125- 8 ####[facility] LABCLIA [id number] [place], [place] [address]DBW [Catalytic activity/Vol]79 U/VLrigxo92-016JcgqrxbyrMercy Health Willard Hospital on above:Order Comment: Specimen Type: BLOOD SPECIMENOrdering Facility: [facility] Address:[address] [place], [place] [address]Performed By: #### 94683-2 ####[facility] LABCLIA [id number] [place] [address]YDJ [Catalytic activity/Vol]8 U/NAlf50-48WbonlxctbMercy Health Willard Hospital on above:Order Comment: Specimen Type: BLOOD SPECIMENOrdering Facility: [facility] Address:[address] [place], [place] [address]Performed By: #### 16769- 8 ####[facility] LABCLIA [id number] [place] MILESDIGN[facility] [place], [place] [address]Qvcyi gap [Moles/Vol]11 mmol/LNormal8-15[facility] on above:Order Comment: Specimen Type: BLOOD SPECIMENOrdering Facility: [facility] Address:[address] [place], [place] [address]Performed By: #### 49439-0 ####[facility] LABCLIA [id number] [place], [place] [address]JGO [Catalytic activity/Vol]14 U/ZFcezad29-53DgpiczwlzMercy Health Willard Hospital on above:Order Comment: Specimen Type: BLOOD SPECIMENOrdering Facility: [facility] Address:[address] [place], [place] [address]Performed By: #### 47618-4 ####[facility] LABCLIA [id number] [place] FERREIRADIGNITY HEALTH [facility] - [place] [address] Bilirubin [Mass/Vol]0.6 mg/dLNormal0.2-1.3CCleveland Clinic [facility] on above:Order Comment: Specimen Type: BLOOD SPECIMENOrdering Facility: [facility] Address:[address] [place], [place] [address]Performed By: #### 10530-0 ####[facility] LABCLIA [id number] [facility] JHONDIGNITY HEALTH EAST VALLEY [facility]OSP[facility] - [place]BERTEVARISTO[place], [place] [address]Uyeywey [Mass/Vol]9.6 mg/dLNormal8.5-10.2CC[facility] Clinic [facility] on above:Order Comment: Specimen Type: BLOOD SPECIMENOrdering Facility: [facility] Address:[address] [place], [place] [address]Performed By: #### 20023-0 ####[facility] LABCLIA [id number] [place], [place] [address]Rraivgxu [Moles/Vol]102 mmol/LFwwqjw87-297TuhckkukxMercy Health [facility] Hospital on above: Order Comment: Specimen Type: BLOOD SPECIMENOrdering Facility: [facility] Address:[address] [place], [place] [address]Performed By: #### 47794- 8 ####[facility] LABCLIA [id number] [place], [place] [address]LG7 [Moles/Vol]25 mmol/XQayoki78-66YyoixwohmMercy Health Willard Hospital on above:Order Comment: Specimen Type: BLOOD SPECIMENOrdering Facility: [facility] Address:[address] [place], [place] [address]Performed By: #### 72319-2 ####[facility] LABCLIA [id number] [place], [place] [address]Zoniouyaod [Mass/Vol]0.68 mg/dL Low0.73-1.22[facility] on above:Order Comment: Specimen Type: BLOOD SPECIMENOrdering Facility: [facility] Address:[address] [place], [place] [address]Performed By: #### 04541-4 ####[facility] LABCLIA [id number] [place] [address] Creatinine and Glomerular filtration rate.predicted panel (S/P/Bld)101 mL/min/1.73m???Normal>=60[facility] on above:Order Comment: Specimen Type: BLOOD SPECIMENOrdering Facility: [facility] Address:[address] [place], [place] [address]Result Comment: Estimated Glomerular Filtration Rate (eGFR) is [...] not accurately reflect actual GFR.Performed By: #### 48927-1 ####[facility] LABCLIA [id number] [place], [place] [address]Ynbgzex [Mass/Vol]100 mg/aXQzyt78-58SluxhmzgpMercy Health Willard Hospital on above:Order Comment: Specimen Type: BLOOD SPECIMENOrdering Facility: [facility] Address:[address] [place], [place] [address]Epjwsv Comment: The [place] Diabetes Association (ADA) provides guidance for cutoff [...] Standards of Medical Care in Diabetes 2016, [place] Diabetes Association. Diabetes Care. 2016.39(Suppl 1).Performed By: #### 65508-0 ####[facility] LABCLIA [id number] [place], [place] [address]Vgmtizail [Moles/Vol]3.7 mmol/LNormal3.7-5.1CC[facility] Clinic [facility] on above:Order Comment: Specimen Type: BLOOD SPECIMENOrdering Facility: [facility] Address:[address] [place], [place] [address]Pzyyzgbcn By: #### 69724-8 ####[facility] LABCLIA [id number] [place], [place] [address]Shzrlau [Mass/Vol]6.8 g/dLNormal6.3-8.0[facility] on above:Order Comment: Specimen Type: BLOOD SPECIMENOrdering Facility: [facility] Address:[address] [place], [place] [address]Performed By: #### 41722- 8 ####[facility] LABCLIA [id number] [place], [place] [address]Qtznzh [Moles/Vol]138 mmol/ZVzxufm368-926IqaotkffbMercy Health Willard Hospital on above:Order Comment: Specimen Type: BLOOD SPECIMENOrdering Facility: [facility] Address:[address] [place], [place] [address]Performed By: #### 62328-9 ####[facility] LABCLIA [id number] [place], [place] [address]Ldlj nitrogen [Mass/Vol]9 mg/dL Normal9-24[facility] on above:Order Comment: Specimen Type: BLOOD SPECIMENOrdering Facility: [facility] Address:[address] [place], [place] [address]Performed By: #### 18973-2 ####[facility] LABIA [id number] [place] [address] Auditory function testson 49-53-3042Nvokm Ear: 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 Left Ear: Mild to severe sensorineural hearing loss above 500 Hz [facility] CountyOVSAscension Columbia [facility] [id number] (SP) Office (HEMASA) CARSON [place]ORSE ([id number]) 1955 M Date Time Provider Department 06/29/24 11:15 AM WYATT GARZA During your visit today, we recorded the following information about you: Temperature Pulse Respiration Blood pressure 97.7 degrees 60/minute 16/minute 153/90 Height 1.651 m Wyatt Garza MD 06/30/2024 9:51 PM Signed NAME: Carson Morse CLINIC NO.: [id number] DATE OF SERVICE: June 29, 2024 (Mirian) [...] then pursue annual monitor (more content not included)...NormalFayette County Memorial Hospital W Auto Differential panel (Bld) on 57-90-7611Hftztnfff (Bld) [#/Vol]0.04 10*3/uLNINFSt. Rita'S Hospital Basophils/100 WBC (Bld)0.9 %[facility]'S HospitalDifferential cell count method Nom (Bld)AutoCleveland ClinicEosinophils (Bld) [#/Vol]0.04 10*3/uLNINFSt. Rita'S HospitalEosinophils/100 WBC (Bld)0.9 %[facility]'S HospitalErythrocyte distribution width (RBC) [Ratio]13.2 %11.5 - 15.0 %[facility]'S HospitalHematocrit (Bld) [Volume fraction]35.9 %Low39.0 - 51.0 %[facility]'S HospitalHemoglobin (Bld) [Mass/Vol]12.8 g/dLLow13.0 - 17.0 g/dLSt. Rita'S HospitalImmature granulocytes (Bld) [#/Vol]NINF St[facility]'S HospitalImmature granulocytes/100 WBC (Bld)0.2 %[facility] Interpretation and review of laboratory resultsAbnormalCLicking Memorial Hospital Lymphocytes (Bld) [#/Vol]0.77 10*3/uLLowSt. Rita'S HospitalLymphocytes/100 WBC (Bld)18.2 %[facility] SystemH (RBC) [Entitic mass]32.5 pg26.0 - 34.0 pg [facility] SystemHC (RBC) [Mass/Vol]35.7 g/dL30.5 - 36.0 g/dLSt. Rita'S Hospital MCV (RBC) [Entitic vol]91.1 fL80.0 - 100.0 fLCleveland ClinicMonocytes (Bld) [#/Vol]0.48 10*3/uLNINFSt. Rita'S HospitalMonocytes/100 WBC (Bld)11.4 %[facility]'S HospitalNeutrophils (Bld) [#/Vol]2.88 10*3/uLSt. Rita'S HospitalNeutrophils/100 WBC (Bld)68.4 %[facility]S HospitalNucleated RBC (Bld) [#/Vol]NINFCLicking Memorial Hospital Nucleated RBC/100 WBC (Bld) [Ratio]0.0 %/100 WBCSt. Rita'S HospitalPlatelet mean volume (Bld) [Entitic vol]10.2 fL9.0 - 12.7 fLCLicking Memorial HospitalPlatelets (Bld) [#/Vol]182 10*3/[facility] HospitalRBC (Bld) [#/Vol]3.94 10*6/uLLow4.20 - 6.00 m/[facility] HospitalWBC (Bld) [#/Vol]4.22 10*3/[facility] ClinicBasophils (Bld) [#/Vol]0.04 10*3/uLNormal<0.11CMercy Health [facility] Comment on above:Order Comment: Specimen Type: BLOOD SPECIMENOrdering Facility: [facility] Address:[address] [place] [address] Performed By: #### 15161-5 ####[facility] LABCLIA [id number] [place], [place] [address]Mcgcowffv/100 WBC (Bld)0.9 % NormalMercy Health – The Jewish HospitalComment on above:Order Comment: Specimen Type: BLOOD SPECIMENOrdering Facility: [facility] Address:[address] [place], [place] [address]Performed By: #### 26821-9 ####[facility] LABCLIA [id number] [place] [address] Differential cell count method Nom (Bld)AutoNormalCMercy Health Lor[facility] Hospital Comment on above:Order Comment: Specimen Type: BLOOD SPECIMENOrdering Facility: [facility] Address:[address] [place] [address] Performed By: #### 19968-3 ####[facility] LABCLIA [id number] [place], [place] [address]Rollrziixiy (Bld) [#/Vol]0.04 10*3/uLNormal<0.46[facility] on above:Order Comment: Specimen Type: BLOOD SPECIMENOrdering Facility: [facility] Address:[address] [place], [place] [address]Performed By: #### 24747-6 ####[facility] LABCLIA [id number] [place], [place] [address]Oljlpqpljgt/100 WBC (Bld)0.9 %NormalMercy Health Willard Hospital on above:Order Comment: Specimen Type: BLOOD SPECIMENOrdering Facility: [facility] Address:[address] [place], [place] [address]Performed By: #### 96299-9 ####[facility] LABCLIA [id number] [place], [place] [address]Rxdpercxjjn distribution width (RBC) [Ratio]13.2 %Zfuchy16.5-15.0[facility] on above: Order Comment: Specimen Type: BLOOD SPECIMENOrdering Facility: [facility] Address:[address] [place], [place] [address]Performed By: #### 14193- 8 ####[facility] LABCLIA [id number] [place], [place] [address]Ifvdakjfuf (Bld) [Volume fraction]35.9 %Low39.0-51.0 [facility] on above:Order Comment: Specimen Type: BLOOD SPECIMENOrdering Facility: [facility] Address:[address] [place], [place] [address]Performed By: #### 64317-1 ####[facility] LABCLIA [id number] [place], [place] [address]Getbaindsa (Bld) [Mass/Vol]12.8 g/dLLow13.0-17.0[facility] on above:Order Comment: Specimen Type: BLOOD SPECIMENOrdering Facility: [facility] Address:[address] [place], [place] [address]Performed By: #### 26079- 8 ####[facility] LABCLIA [id number] [place], [place] [address]Tjsvthda granulocytes (Bld) [#/Vol]10*3/uLNormal<0.10 [facility] on above:Order Comment: Specimen Type: BLOOD SPECIMENOrdering Facility: [facility] Address:[address] [place], [place] [address]Performed By: #### 73090-8 ####[facility] LABCLIA [id number] [place], [place] [address]Xvqcbxus granulocytes/100 WBC (Bld)0.2 %NormalMercy Health Willard Hospital on above: Order Comment: Specimen Type: BLOOD SPECIMENOrdering Facility: [facility] Address:[address] [place], [place] [address]Performed By: #### 03552- 8 ####[facility] LABIA [id number] [place], [place] [address]Ujgajvrfapu (Bld) [#/Vol]0.77 10*3/uLLow1.00-4.00 [facility] on above:Order Comment: Specimen Type: BLOOD SPECIMENOrdering Facility: [facility] Address:[address] [place], [place] [address]Performed By: #### 69929-2 ####[facility] LABIA [id number] [place], [place] [address]Lcbmypqhnhv/100 WBC (Bld)18.2 %NormalMercy Health Willard Hospital on above:Order Comment: Specimen Type: BLOOD SPECIMENOrdering Facility: [facility] Address:[address] [place], [place] [address]Performed By: #### 93239-4 ####[facility] LABIA [id number] [place], [place] [address]BCO (RBC) [Entitic mass]32.5 abPfdlvw42.0-34.0[facility] on above:Order Comment: Specimen Type: BLOOD SPECIMENOrdering Facility: [facility] Address:[address] [place], [place] [address]Performed By: #### 99937-4 ####[facility] LABIA [id number] [place], [place] [address]ZVLI (RBC) [Mass/Vol]35.7 g/oXHitjvs93.5-36.0[facility] on above: Order Comment: Specimen Type: BLOOD SPECIMENOrdering Facility: [facility] Address:[address] [place], [place] [address]Performed By: #### 73339- 8 ####[facility] LABIA [id number] [place], [place] [address]OSY (RBC) [Entitic vol]91.1 uUPmevjz58.0-100.0[facility] on above:Order Comment: Specimen Type: BLOOD SPECIMENOrdering Facility: [facility] Address:[address] [place], [place] [address]Performed By: #### 83279-9 ####[facility] LABIA [id number] [place], [place] [address]Tbjbewseq (Bld) [#/Vol]0.48 10*3/uLNormal<0.87[facility] on above:Order Comment: Specimen Type: BLOOD SPECIMENOrdering Facility: [facility] Address:[address] [place], [place] [address]Performed By: #### 55855- 8 ####[facility] LABCLIA [id number] [place], [place] [address]Xyzbkeryy/100 WBC (Bld)11.4 %NormalMercy Health Willard Hospital on above:Order Comment: Specimen Type: BLOOD SPECIMENOrdering Facility: [facility] Address:[address] [place], [place] [address]Performed By: #### 71538-8 ####[facility] LABCLIA [id number] [place], [place] [address]Jmawebrpujj (Bld) [#/Vol]2.88 10*3/uLNormal1.45-7.50[facility] on above:Order Comment: Specimen Type: BLOOD SPECIMENOrdering Facility: [facility] Address:[address] [place], [place] [address]Performed By: #### 97096-2 ####[facility] LABCLIA [id number] [place], [place] [address]Ryolaagzwfn/100 WBC (Bld)68.4 %NormalMercy Health Willard Hospital on above:Order Comment: Specimen Type: BLOOD SPECIMENOrdering Facility: [facility] Address:[address] [place], [place] [address]Performed By: #### 09383-5 ####[facility] LABCLIA [id number] [place], [place] [address]Mqmvtpvtf RBC (Bld) [#/Vol] 10*3/uLNormal<0.01[facility] on above:Order Comment: Specimen Type: BLOOD SPECIMENOrdering Facility: [facility] Address:[address] [place], [place] [address]Performed By: #### 78028-7 ####[facility] LABCLIA [id number] [place], [place] [address]Qcuytiphk RBC/100 WBC (Bld) [Ratio]0.0 /100 WBCNormal [facility] on above:Order Comment: Specimen Type: BLOOD SPECIMENOrdering Facility: [facility] Address:[address] [place], [place] [address]Performed By: #### 34730-3 ####[facility] LABIA [id number] [place], [place] [address]Dimieedv mean volume (Bld) [Entitic vol]10.2 fLNormal9.0-12.7CCleveland Clinic [facility]'s [facility] on above:Order Comment: Specimen Type: BLOOD SPECIMENOrdering Facility: [facility] Address:[address] [place], [place] [address] Performed By: #### 40133-0 ####[facility] LABCLIA [id number] [place], [place] [address]Nxxmyajlt (Bld) [#/Vol]182 10*3/gCBbchqa194-243LqwopyrthMercy Health Willard Hospital on above:Order Comment: Specimen Type: BLOOD SPECIMENOrdering Facility: [facility] Address:[address] [place], [place] [address]Performed By: #### 95699-3 ####[facility] LABCLIA [id number] [place], [place] [address]NOP (Bld) [#/Vol]3.94 10*6/uLLow4.20-6.00[facility] on above:Order Comment: Specimen Type: BLOOD SPECIMENOrdering Facility: [facility] Address:[address] [place], [place] [address]Performed By: #### 25857-3 ####[facility] LABCLIA [id number] [place], [place] [address]DML (Bld) [#/Vol]4.22 10*3/uL Normal3.70-11.00[facility] on above:Order Comment: Specimen Type: BLOOD SPECIMENOrdering Facility: [facility] Address:[address] [place], [place] [address]Performed By: #### 01495-8 ####[facility] LABCLIA [id number] [place], [place] [address]DW CHEST W IVCONon 74-55-5860RC CHEST W IVCON* * *Final Report* * * DATE OF EXAM: Jun 22 2024 9:02AM [facility] 0539 - CT CHEST W IVCON [...] abdomen: Visualized upper abdomen is grossly unremarkable. Pan Devulcanizer (topogram) images: Unremarkable. IMPRESSION: Previously identified new [...] any questions regarding this interpretation, please call [phone]. If you are unable to reach us at the number above, please feel free to contact [facility] eRadiology at [phone]. [id number] Health – The Jewish HospitalCT Chest W contrast Javier [id number]: Previously identified new pulmonary nodules have resolved [...] any questions regarding this interpretation, please call [phone]. If you are unable to reach us at the number above, please feel free to contact [facility] at [phone].DIVISION OF RADIOLOGY* * *Final Report* * * DATE OF EXAM: Jun 22 2024 9:02AM [facility] 0539 - CT CHEST W IVCON [...] abdomen: Visualized upper abdomen is grossly unremarkable. Pan Devulcanizer (topogram) images: Unremarkable. DIVISION OF RADIOLOGYProvider, [facility] [place] - 06/22/2024 * * *Final Report* * * DATE OF EXAM: Jun 22 2024 9:02AM [facility] 0539 - CT CHEST W IVCON [...] abdomen: Visualized upper abdomen is grossly unremarkable. Pan Devulcanizer (topogram) images: Unremarkable. IMPRESSION IMPRESSION: Previously identified [...] any questions regarding this interpretation, please call [phone]. If you are unable to reach us at the number above, please feel free to contact [facility] at [phone]. St. Rita'S HospitalRadiology Study observation (narrative)Almo ClinicCT Chest W contrast IVOrdered By: Ccf Provider on 96-84-2122Rwrjxyvpu ClinicComprehensive metabolic 2000 panelOrdered By: Les Luke on 50-44-0952Zimqnwb [Mass/Vol]5.1 g/dLHigh3.9 - 4.9 g/dLAlmo ClinicALP [Catalytic activity/Vol]88 U/L38 - 113 U/LCleveland ClinicALT [Catalytic activity/Vol]15 U/L10 - 54 U/LCleveland Clinic Anion gap [Moles/Vol]9 mmol/L8 - 15 mmol/LCleveland ClinicAST [Catalytic activity/Vol]33 U/L14 - 40 U/LCleveland ClinicBilirubin [Mass/Vol]1.1 mg/dL0.2 - 1.3 mg/dLAlmo ClinicCalcium [Mass/Vol]10.3 mg/dLHigh8.5 - 10.2 mg/dL Almo ClinicChloride [Moles/Vol]97 mmol/LLow98 - 107 mmol/LCleveland Clinic CO2 [Moles/Vol]26 mmol/L22 - 30 mmol/LCleveland ClinicCreatinine [Mass/Vol]0.96 mg/dL0.73 - 1.22 mg/dLAlmo ClinicGFR/1.73 sq M.predicted among non-blacks MDRD (S/P/Bld) [Vol rate/Area]87 mL/min/{1.73_m2}- PINleveland ClinicComment on above:Estimated Glomerular Filtration Rate (eGFR) [...] not accurately reflect actual GFR.Glucose [Mass/Vol] 104 mg/uQTtdq10 - 99 mg/dLSt. Rita'S HospitalComment on above:[place] Diabetes Association (ADA) provides guidance for cutoff [...] Standards of Medical Care in Diabetes 2016, [place] Diabetes Association. Diabetes Care. 2016.39(Suppl 1). Interpretation and review of laboratory resultsAbnormalCleveland ClinicPotassium [Moles/Vol]5.0 mmol/L3.7 - 5.1 mmol/LClevelscionhealth ClinicProtein [Mass/Vol]7.9 g/dL 6.3 - 8.0 g/dLDunlap Memorial Hospitalodium [Moles/Vol]132 mmol/EHly424 - 144 mmol/L [facility]'S HospitalUrea nitrogen [Mass/Vol]11 mg/dL9 - 24 mg/dLAvita Health SystemComprehensive metabolic 2000 panelon 69-50-3887Nscxdoi [Mass/Vol]5.1 g/dLHigh3.9-4.9CCleveland Clinic [facility] on above:Order Comment: Specimen Type: BLOOD SPECIMENOrdering Facility: [facility] Address:[address] [place], [place] [address]Performed By: #### 19282- 8 ####[facility] LABCLIA [id number] [place], [place] [address]GAN [Catalytic activity/Vol]88 U/CKjiglo56-965UxgabrigsMercy Health Willard Hospital on above:Order Comment: Specimen Type: BLOOD SPECIMENOrdering Facility: [facility] Address:[address] [place], [place] [address]Performed By: #### 22286-1 ####[facility] LABCLIA [id number] [place], [place] [address]VMI [Catalytic activity/Vol]15 U/JJsjlxs49-54UdhsvuucnMercy Health Willard Hospital on above:Order Comment: Specimen Type: BLOOD SPECIMENOrdering Facility: [facility] Address:[address] [place], [place] [address]Performed By: #### 84745- 8 ####[facility] LABCLIA [id number] [place], [place] [address]Istoj gap [Moles/Vol]9 mmol/LNormal8-15[facility] on above:Order Comment: Specimen Type: BLOOD SPECIMENOrdering Facility: [facility] Address:[address] [place], [place] [address]Performed By: #### 45941-0 ####[facility] LABCLIA [id number] [place], [place] [address]WAS [Catalytic activity/Vol]33 U/MOwcuij81-86DzqvnvehwMercy Health Willard Hospital on above:Order Comment: Specimen Type: BLOOD SPECIMENOrdering Facility: [facility] Address:[address] [place], [place] [address]Performed By: #### 60499-5 ####[facility] LABCLIA [id number] [place] [address] Bilirubin [Mass/Vol]1.1 mg/dLNormal0.2-1.3CCleveland Clinic [facility] on above:Order Comment: Specimen Type: BLOOD SPECIMENOrdering Facility: [facility] Address:[address] [place], [place] [address]Performed By: #### 81843-3 ####[facility] LABCLIA [id number] [place], [place] [address]Odkrrbi [Mass/Vol]10.3 mg/dLHigh8.5-10.2CCleveland Clinic [facility] on above:Order Comment: Specimen Type: BLOOD SPECIMENOrdering Facility: [facility] Address:[address] [place], [place] [address]Performed By: #### 67426-1 ####[facility] LABCLIA [id number] [place], [place] [address]Grhjthvn [Moles/Vol]97 mmol/UFre45-874QdvkhteguMercy Health Willard Hospital on above:Order Comment: Specimen Type: BLOOD SPECIMENOrdering Facility: [facility] Address:[address] [place], [place] [address]Performed By: #### 19342- 8 ####[facility] LABCLIA [id number] [place], [place] [address]RU5 [Moles/Vol]26 mmol/RJlumbc38-78JlhcboyelMercy Health Willard Hospital on above:Order Comment: Specimen Type: BLOOD SPECIMENOrdering Facility: [facility] Address:[address] [place], [place] [address]Performed By: #### 48703-0 ####[facility] LABCLIA [id number] [place], [place] [address]Jbyaarrqbb [Mass/Vol]0.96 mg/dL Normal0.73-1.22[facility] on above:Order Comment: Specimen Type: BLOOD SPECIMENOrdering Facility: [facility] Address:[address] [place], [place] [address]Performed By: #### 89672-7 ####[facility] LABCLIA [id number] [place], [place] [address]Aprqvvztts and Glomerular filtration rate.predicted panel (S/P/Bld)87 mL/min/1.73m???Normal>=60[facility] on above:Order Comment: Specimen Type: BLOOD SPECIMENOrdering Facility: [facility] Address:[address] [place], [place] [address]Result Comment: Estimated Glomerular Filtration Rate (eGFR) is [...] not accurately reflect actual GFR.Performed By: #### 64523-3 ####[facility] LABCLIA [id number] [place], [place] [address]Pcnshap [Mass/Vol]104 mg/pQUmyi96-52ZumsxkvbzMercy Health Willard Hospital on above:Order Comment: Specimen Type: BLOOD SPECIMENOrdering Facility: [facility] Address:[address] [place], [place] [address]Result Comment: The [place] Diabetes Association (ADA) provides guidance for cutoff [...] Standards of Medical Care in Diabetes 2016, [place] Diabetes Association. Diabetes Care. 2016.39(Suppl 1).Performed By: #### 39482-5 ####[facility] LABCLIA [id number] [place], [place] [address]Pehywlzde [Moles/Vol]5.0 mmol/LNormal3.7-5.1CCleveland Clinic [facility] on above:Order Comment: Specimen Type: BLOOD SPECIMENOrdering Facility: [facility] Address:[address] [place], [place] [address]Performed By: #### 52475-3 ####[facility] LABCLIA [id number] [place], [place] [address]Gmlyrqs [Mass/Vol]7.9 g/dLNormal6.3-8.0[facility] on above:Order Comment: Specimen Type: BLOOD SPECIMENOrdering Facility: [facility] Address:[address] [place], [place] [address]Performed By: #### 03592- 8 ####[facility] LABCLIA [id number] [place], [place] [address]Vthwwj [Moles/Vol]132 mmol/JFyl504-008AdkhdfmesMercy Health Willard Hospital on above:Order Comment: Specimen Type: BLOOD SPECIMENOrdering Facility: [facility] Address:[address] [place], [place] [address]Xjcsipldb By: #### 65169-1 ####[facility] LABCLIA [id number] [place], [place] [address]Uzuf nitrogen [Mass/Vol]11 mg/dLNormal9[facility] on above:Order Comment: Specimen Type: BLOOD SPECIMENOrdering Facility: [facility] Address:[address] [place] [place], [place] [address]Ijlmvhnrr By: #### 98020-1 ####[facility] LABCLIA [id number] [place], [place] [address]OCKFpb 13-23-7326QZSYHblqpzdyq (GASTNO) CARSON MORSE ([id number]) 1955 M Date Time Provider Department 06/12/24 [...] liver [K76.0] Order(s):ALPHA FETOPROTEIN [SQAFP] Order #: [id number] FUTURE US ABD RIGHT UPPER QUADRANT [[id number]] Order #: [id number] FUTURE DDI VIBRATION CONTROLLED TRANSIENT ELASTOGRAPHY (VCTE) [[id number]] Order #: [id number] Prescriptions as of 06/19/2024 - levoFLOXacin (LEVAQUIN) [...] 12/18/2020 Encounter Status:Closed by EMILY ARMSTRONG on 06/19/24[facility] Medical CenterUS ABD RIGHT UPPER QUADRANTon 76-30-2220OG ABD RIGHT UPPER QUADRANT* * *Final Report* [...] the liver which may reflect mild/early cirrhosis. Registered Dietitian: ALEJO Transcribe Date/Time: May 28 2024 7:30P Dictated by : IVANNA CROFT MD This examination was interpreted and the report reviewed and electronically signed by: IVANNA CROFT MD on May 28 2024 7:33PM EST [id number] Stokes [facility] Abdomen RUQon 70-43-9781FPJYQKYHZT: 1. Increase echogenicity the liver, likely secondary to hepatic steatosis. There is questionable minimal nodularity on the contour of the liver which may reflect mild/early cirrhosis. Registered Dietitian: [facility]OSPITALMelissa Transcribe Date/Time: May 28 2024 7:30P Dictated [...] No hydronephrosis. Ascites: None. DIVISION OF RADIOLOGYProvider, [facility] [place] - 05/28/2024 * * *Final Report* * [...] the liver which may reflect mild/early cirrhosis. Registered Dietitian: ALEJO Transcribe Date/Time: May 28 2024 7:30P Dictated by : IVANNA CROFT MD This examination was interpreted and the report reviewed and electronically signed by: IVANNA CROFT MD on May 28 2024 7:33PM EST [facility]'S HospitalRadiology Study observation (narrative)[facility] Abdomen RUQOrdered By: [facility] Provider on 92-20-1536Vqkiklaof ClinicCNPNon 74-99-4271XMUGCqzfbhgeg (GASTNO) CARSON MORSE ([id number]) 1955 M Date Time Provider Department 05/24/24 HALIMA NIXON During your visit today, we recorded the following information about you: Emily Armstrong RN 05/24/2024 9:56 AM Addendum ----- Message from Halima Nixon MD sent at 05/23/2024 2:56 PM EDT ----- Negative hep C RNA consistent with sustained response Repeat in one year Reviewed test results Pt read result message from Dr. Nixon via [employer]. Called and spoke to patient regarding test results and recommendation from Dr. Nixon Pt state dUS is sched for Mon at [place] Demonstrated understanding Dr. Lund, Orders submitted for repeat Hep C RNA Please review and sign ThanksEmily RN Allergies As of Date: 05/24/2024 (No Known Allergies) Date Reviewed: 03/30/2024 Reviewed by: Felipa Sosa MA - Fully Assessed Primary Visit Diagnosis:Chronic hepatitis C without hepatic coma (HCC) [B18.2] Order(s):HEPATITIS C RNA QUANTIFICATION BY PCR, PLASMA/SERUM [SQHCQPCR] Order #: [id number] FUTURE Prescriptions as of 06/11/2024 - levoFLOXacin [...] 12/18/2020 Encounter Status:Closed by EMILY ARMSTRONG on 05/24/24NoWilson Memorial HospitalHC RNA SerPl PAULA+probe-aCncon 39-39-0470XST RNA PAULA+probe QnNot detectedNormalHCV RNA not detected by PCR.[facility] Jewish HospitalComment on above:Order Comment: Specimen Type: BLOOD SPECIMENOrdering Facility: [facility] [address], [place] [address]Performed By: #### 24226-9 ####[facility] LABCLIA [id number] JUAN MARIETTADESK [id number] OF [facility]IRFIELD HOSPITALCNPNon 66-77-3618VREZ Telephone (GASTNO) CARSON MORSE ([id number]) 1955 M Date Time Provider Department 05/17/24 [...] LFTs [R79.89] Order(s):US ABD RIGHT UPPER QUADRANT [[id number]] Order #: [id number] FUTURE HEPATITIS C RNA QUANTIFICATION BY PCR, PLASMA/SERUM [SQHCQPCR] Order #: [id number] FUTURE Prescriptions as of 05/21/2024 - levoFLOXacin [...] 12/18/2020 Encounter Status:Closed by EMILY ARMSTRONG on 05/21/24[facility] Medical CenterCNOVSAscension Columbia [facility] 11-55-0149EDGLEZVirhk (SP) Office (HEMASA) CARSON MORSE ([id number]) 1955 M Date Time Provider Department 03/30/24 2:45 PM WYATT GARZA During your visit today, we recorded the following information about you: Temperature Pulse Respiration Blood pressure 97.2 degrees 82/minute 16/minute 129/79 Weight Height 64 kg 1.651 m Wyatt Garza MD 04/01/2024 9:31 AM Signed NAME: Carson Morse CLINIC NO.: [id number] DATE OF SERVICE: March 30, 2024 (Mirian) Some elements in this clinic note that are critical to medical decision making have been carefully reviewed and included from a prior clinic note dated: December 19, 2023 (Mirian) Additional Clinicians involved in Carson Morse's care: Nestor, Hoy, [employer] CC: Head and neck cancer follow-up. [...] returns today, he has (more content not included)...NormalMount St. Mary HospitalvelandCREATININE BLDOrdered By: Rufina Ibarra on 47-77-1000Qrcjotuoxh [Mass/Vol]0.84 mg/dL0.73 - 1.22 mg/dLSt. Rita'S HospitalGFR/1.73 sq M.predicted among non-blacks MDRD (S/P/Bld) [Vol rate/Area]96 mL/min/{1.73_m2}- PINF [facility] on above:Estimated Glomerular Filtration Rate (eGFR) is [...] actual GFR. Interpretation and review of laboratory resultsNormalCdayton va medical centerand Wood County HospitalCREATININE BLDon 33-15-9340Cvsjglaisg [Mass/Vol]0.84 mg/dLNormal0.73-1.22 [facility] on above:Order Comment: Specimen Type: BLOOD SPECIMENOrdering Facility: [facility] Address:[address] [place], [place] [address]Performed By: #### CRET1 ####[facility] LABCLIA [id number] [place], [place] [address]Jmheeqeakf and Glomerular filtration rate.predicted panel (S/P/Bld)96 mL/min/1.73m???Normal>=60 [facility] on above:Order Comment: Specimen Type: BLOOD SPECIMENOrdering Facility: [facility] Address:[address] [place], [place] [address]Result Comment: Estimated Glomerular Filtration Rate (eGFR) is [...] accurately reflect actual GFR.Performed By: #### CRET1 ####[facility] LABCLIA [id number] [place], [place] [address]IW CHEST W IVCONon 12-25-3756SR CHEST W IVCON* * *Final Report* * * DATE OF EXAM: Mar 23 2024 8:49AM [facility] 0539 - CT CHEST W IVCON [...] of an adrenal mass in the visualized rhbpz-cl-lirw. Fat-containing epigastric anterior abdominal hernia.. Pan Devulcanizer (topogram) images: No additional findings. IMPRESSION: 1. [...] any questions regarding this interpretation, please call [phone]. If you are unable to reach us at the number above, please feel free to contact [facility] eRadiology at [phone]. [id number] Health – The Jewish HospitalCT Chest W contrast Javier 86-81-5142MYHZVBBSXX: 1. New subcentimeter nodular opacities measuring less [...] any questions regarding this interpretation, please call [phone]. If you are unable to reach us at the number above, please feel free to contact [facility] eRadiology at [phone].DIVISION OF RADIOLOGY* * *Final Report* * * DATE OF EXAM: Mar 23 2024 8:49AM [facility] 0539 - CT CHEST W IVCON [...] of an adrenal mass in the visualized fzeap-hs-hbud. Fat-containing epigastric anterior abdominal hernia.. Pan Devulcanizer (topogram) images: No additional findings. DIVISION OF RADIOLOGYProvider, [facility] [place] - 03/23/2024 * * *Final Report* * * DATE OF EXAM: Mar 23 2024 8:49AM [facility] 0539 - CT CHEST W IVCON [...] of an adrenal mass in the visualized zndqc-jl-lvnl. Fat-containing epigastric anterior abdominal hernia.. Pan Devulcanizer (topogram) images: No additional findings. IMPRESSION IMPRESSION: [...] any questions regarding this interpretation, please call [phone]. If you are unable to reach us at the number above, please feel free to contact [facility] eRadiology at [phone]. [facility]S HospitalRadiology Study observation (narrative)[facility] Chest W contrast IVOrdered By: Ccf Provider on 35-35-3582Kmlxvrbou [facility] Critical Care HospitalCBC W Auto Differential panel (Bld)on 58-67-1059Zdzchyvjp (Bld) [#/Vol]0.05 10*3/uLNINF St[facility]'S HospitalBasophils/100 WBC (Bld)1.2 %[facility]'S HospitalDifferential cell count method Nom (Bld)AutoCleveland ClinicEosinophils (Bld) [#/Vol]0.04 10*3/uL NINFCleveland ClinicEosinophils/100 WBC (Bld)0.9 %[facility]'S HospitalErythrocyte distribution width (RBC) [Ratio]13.1 %11.5 - 15.0 %[facility]'S HospitalHematocrit (Bld) [Volume fraction]38.0 %Low39.0 - 51.0 %[facility]'S HospitalHemoglobin (Bld) [Mass/Vol]12.9 g/dLLow13.0 - 17.0 g/dLSt. Rita'S HospitalImmature granulocytes (Bld) [#/Vol]NINFCleveland [facility] Critical Care HospitalImmature granulocytes/100 WBC (Bld)0.2 % [facility]'S HospitalInterpretation and review of laboratory resultsAbnormalCleveland ClinicLymphocytes (Bld) [#/Vol]0.83 10*3/uLLowSt. Rita'S HospitalLymphocytes/100 WBC (Bld)19.5 %[facility] SystemH (RBC) [Entitic mass]31.7 pg26.0 - 34.0 pg [facility] SystemHC (RBC) [Mass/Vol]33.9 g/dL30.5 - 36.0 g/dLSt. [facility]'S Hospital MCV (RBC) [Entitic vol]93.4 fL80.0 - 100.0 fLCleveland ClinicMonocytes (Bld) [#/Vol]0.37 10*3/uLNINFSt. Rita'S HospitalMonocytes/100 WBC (Bld)8.7 %[facility]'S HospitalNeutrophils (Bld) [#/Vol]2.95 10*3/[facility] HospitalNeutrophils/100 WBC (Bld)69.5 %[facility]S HospitalNucleated RBC (Bld) [#/Vol]NINSt. Rita's Hospital Nucleated RBC/100 WBC (Bld) [Ratio]0.0 %/100 WBCSt. Rita'S HospitalPlatelet mean volume (Bld) [Entitic vol]9.6 fL9.0 - 12.7 [facility] Memorial HospitalPlatelets (Bld) [#/Vol]197 10*3/uLSt. Rita'S HospitalRBC (Bld) [#/Vol]4.07 10*6/Low4.20 - 6.00 m/[facility] HospitalWBC (Bld) [#/Vol]4.25 10*3/[facility] CenterCT Chest W contrast Javier 54-15-1134SXQYKGIYYV: 1. Stable appearance of bilateral pulmonary nodules. [...] any questions regarding this interpretation, please call [phone]. If you are unable to reach us at the number above, please feel free to contact [facility] eRadiology at [phone].DIVISION OF RADIOLOGY* * *Final Report* * * DATE OF EXAM: Dec 16 2023 10:46AM [facility] 0539 - CT CHEST W IVCON [...] No abnormality in the imaged upper abdomen. Pan Devulcanizer (topogram) images: No additional findings. DIVISION OF RADIOLOGYProvider, [facility] [place] - 12/16/2023 * * *Final Report* * * DATE OF EXAM: Dec 16 2023 10:46AM [facility] 0539 - CT CHEST W IVCON [...] No abnormality in the imaged upper abdomen. Pan Devulcanizer (topogram) images: No additional findings. IMPRESSION IMPRESSION: [...] any questions regarding this interpretation, please call [phone]. If you are unable to reach us at the number above, please feel free to contact [facility] Hospitaliology at [phone]. [facility]'S HospitalCT Chest W contrast IVOrdered By: Ccf Provider on 12-16-2023 [facility]'S HospitalCT Neck W contrast Javier 74-57-8780GKTKOIOBAH: Stable appearance of the soft tissues of [...] any questions regarding this interpretation, please call [phone]. If you are unable to reach us at the number above, please feel free to contact [facility] at [phone].DIVISION OF RADIOLOGY* * *Final Report* * * DATE OF EXAM: Dec 16 2023 10:46AM [facility] 0013 - CT NECK SOFT TISSUE [...] The soft tissue planes of the adjacent director report spaces are maintained. Mild dystrophic calcification is [...] apices. Other: Not applicable. DIVISION OF RADIOLOGYProvider, [facility] [place] - 12/16/2023 * * *Final Report* * * DATE OF EXAM: Dec 16 2023 10:46AM [facility] 0013 - CT NECK SOFT TISSUE [...] The soft tissue planes of the adjacent director report spaces are maintained. Mild dystrophic calcification is [...] any questions regarding this interpretation, please call [phone]. If you are unable to reach us at the number above, please feel free to contact [facility] eRadiology at [phone]. [facility] – JacksonComprehensive metabolic 2000 panelOrdered By: Les Luke on 70-97-8189Irkortj [Mass/Vol]4.4 g/dL3.9 - 4.9 g/dLAlmo ClinicALP [Catalytic activity/Vol]76 U/L38 - 113 U/LCleveland ClinicALT [Catalytic activity/Vol]9 U/LLow10 - 54 U/LCleveland ClinicAnion gap [Moles/Vol] 11 mmol/L9 - 18 mmol/LCleveland ClinicAST [Catalytic activity/Vol]21 U/L14 - 40 U/LCleveland ClinicBilirubin [Mass/Vol]0.8 mg/dL0.2 - 1.3 mg/dLSt. [facility]'S Hospital Calcium [Mass/Vol]10.2 mg/dL8.5 - 10.2 mg/dLAlmo ClinicChloride [Moles/Vol] 99 mmol/L97 - 105 mmol/LCleveland ClinicCO2 [Moles/Vol]25 mmol/L22 - 30 mmol/L [facility]S HospitalCreatinine [Mass/Vol]0.84 mg/dL0.73 - 1.22 mg/dLSt. Rita'S Hospital GFR/1.73 sq M.predicted among non-blacks MDRD (S/P/Bld) [Vol rate/Area]96 mL/min/{1.73_m2}- PINSt. Rita's HospitalComment on above:Estimated Glomerular Filtration Rate (eGFR) [...] actual GFR.Glucose [Mass/Vol]99 mg/dL74 - 99 mg/dL [facility]S HospitalCompaul oliver memorial hospital on above:The [place] Diabetes Association (ADA) provides guidance for cutoff [...] Standards of Medical Care in Diabetes 2016, [place] Diabetes Association. Diabetes Care. 2016.39(Suppl 1). Interpretation and review of laboratory resultsAbnormalCleveland ClinicPotassium [Moles/Vol]4.5 mmol/L3.7 - 5.1 mmol/LCleveland ClinicProtein [Mass/Vol]7.2 g/dL 6.3 - 8.0 g/dLDunlap Memorial Hospitalodium [Moles/Vol]135 mmol/BThp985 - 144 mmol/L [facility]S HospitalUrea nitrogen [Mass/Vol]12 mg/dL9 - 24 mg/dLAvita Health SystemNo Panel Informationon 47-64-3443Bqunyqrls Study observation (narrative)[facility]S HospitalProvider Letteron 99-91-6528Mogbirtu Letter March 16, 2023 [address]SE [address] [place] [phone] CARSON MORSE 1955 Dear Mr. Morse , [...] prompt attention to this matter. Please call [phone] and choose the patient intake representative option. Sincerely, [facility] [address], [place] [address] FyscovCdaivvAultman Alliance Community HospitalProvider Letteron 03-03-2023 Provider Letter March 03, 2023 [address] MORSE [address] [place] [phone] CARSON MORSE 1955 Dear Thom , We have been trying to reach you with no success. You have an appointment with Dr. Sushil Edgar on 04/12/2023 which will need to be rescheduled. Please contact the office at the number listed below to get this appointment rescheduled at your earliest convenience. Thank you for your prompt attention to this matter. Sincerely, [facility] [address], [place] [id number] UyrgxlYpgxmaAultman Alliance Community HospitalXR ANKLE RT MIN 3 VIEWSon 71-64-9133NF ANKLE RT MIN 3 VIEWSEXAM: XR ANKLE [...] Electronically authenticated by: ACE ARREOLA Date: 2023-01-27 14:40Berger HospitalXR ANKLE RT MIN 3 VIEWSon 75-72-5991EP ANKLE RT MIN 3 VIEWS EXAM: XR [...] Electronically authenticated by: BENEDICTO THAO Date: 2022-12-29 12:44Berger HospitalFERRITIN BLDon 96-94-9803Avnrgjzk [Mass/Vol]807.0 ng/fZThwm08.3 - 565.7 ng/mLCleveland ClinicFOLATE SERUMon 29-16-4057Eztbmm [Mass/Vol]10.7 ng/mL4.7 - PINF ng/mLCleveland ClinicFerritin [Mass/Vol]on 12-16-2022 Interpretation and review of laboratory resultsAbnormalCleveland ClinicIron and Iron binding capacity panelon 97-26-6303Ywqpvagqsuixya and review of laboratory resultsAbnormalCleveland ClinicIron [Mass/Vol]213 ug/wHBjjv22 - 186 ug/dL Lorenzo ClinicIron binding capacity [Mass/Vol]421 ug/bYGtcj811 - 386 ug/dL [facility]S HospitalIron/TIBC [Molar ratio]50.6 %15.0 - 57.0 %Avita Health SystemNo Panel Informationon 96-94-3442Czrvpdverlyylg and review of laboratory resultsNormalCdayton va medical centerand [facility] BLD on 06-47-9717EWQ Qn2.470 m[IU]/LCAccess Hospital Dayton Qnon 12-16-2022 Interpretation and review of laboratory resultsNormalCLicking Memorial HospitalVITAMIN B12 BLOODon 66-62-9745Bshyybmbb (Vitamin B12) [Mass/Vol]276 pg/mL232 - 1245 pg/mL [facility] W Auto Differential panel (Bld)on 15-18-7975Qktqwqwki (Bld) [#/Vol]0.05 10*3/uLNINFSt. Rita'S HospitalBasophils/100 WBC (Bld)1.1 %[facility]S HospitalDifferential cell count method Nom (Bld)AutoCleveland ClinicEosinophils (Bld) [#/Vol]0.04 10*3/uLNINFSt. Rita'S HospitalEosinophils/100 WBC (Bld)0.9 % [facility]S HospitalErythrocyte distribution width (RBC) [Ratio]13.4 %11.5 - 15.0 % [facility]'S HospitalHematocrit (Bld) [Volume fraction]36.7 %Low39.0 - 51.0 % [facility]'S HospitalHemoglobin (Bld) [Mass/Vol]12.5 g/dLLow13.0 - 17.0 g/dLSt. Rita'S HospitalImmature granulocytes (Bld) [#/Vol]NINFCleveland ClinicImmature granulocytes/100 WBC (Bld)0.2 %[facility]S HospitalInterpretation and review of laboratory resultsAbnormalCleveland ClinicLymphocytes (Bld) [#/Vol]0.60 10*3/uL LowCleMetroHealth Main Campus Medical CenterLymphocytes/100 WBC (Bld)13.5 %[facility] SystemH (RBC) [Entitic mass]33.8 pg26.0 - 34.0 pgCleveland Olivia Hospital and ClinicsHC (RBC) [Mass/Vol]34.1 g/dL30.5 - 36.0 g/dLSt. Rita'S HospitalMCV (RBC) [Entitic vol]99.2 fL80.0 - 100.0 fLCwexner medical center ClinicMonocytes (Bld) [#/Vol]0.41 10*3/uLNINFSt. Rita'S Hospital Monocytes/100 WBC (Bld)9.2 %[facility] HospitalNeutrophils (Bld) [#/Vol]3.34 10*3/uLSt. Rita'S HospitalNeutrophils/100 WBC (Bld)75.1 %[facility] HospitalNucleated RBC (Bld) [#/Vol]NINFCLicking Memorial HospitalNucleated RBC/100 WBC (Bld) [Ratio]0.0 % /100 WBCSt. Rita'S HospitalPlatelet mean volume (Bld) [Entitic vol]9.2 fL9.0 - 12.7 fLCwexner medical center ClinicPlatelets (Bld) [#/Vol]174 10*3/uLSt. Rita'S HospitalRBC (Bld) [#/Vol]3.70 10*6/uLLow4.20 - 6.00 m/[facility] HospitalWBC (Bld) [#/Vol]4.45 10*3/[facility] HospitalThis is an appended report. These results have been appended to a previously verified report.[facility] JacksonCT Chest W contrast Javier 22-04-8458CAGXEWUAHF: 1. 7 mm part solid right middle [...] any questions regarding this interpretation, please call [phone]. If you are unable to reach us at the number above, please feel free to contact [facility] eRadiology at [phone].DIVISION OF RADIOLOGY* * *Final Report* * * DATE OF EXAM: Dec 15 2022 8:49AM [facility] 0539 - CT CHEST W IVCON [...] images through the upper abdomen are stable. Pan Devulcanizer (topogram) images: No additional findings. DIVISION OF RADIOLOGYProvider, [facility] [place] - 12/15/2022 * * *Final Report* * * DATE OF EXAM: Dec 15 2022 8:49AM [facility] 0539 - CT CHEST W IVCON [...] images through the upper abdomen are stable. Pan Devulcanizer (topogram) images: No additional findings. IMPRESSION IMPRESSION: [...] any questions regarding this interpretation, please call [phone]. If you are unable to reach us at the number above, please feel free to contact [facility] eRadiology at [phone]. [facility] JacksonCT Neck W contrast Javier 30-02-8041VSADKQWAJE: Post-treatment changes without discrete residual/recurrent neoplasm or [...] any questions regarding this interpretation, please call [phone]. If you are unable to reach us at the number above, please feel free to contact [facility] eRadiology at [phone].DIVISION OF RADIOLOGY* * *Final Report* * * DATE OF EXAM: Dec 15 2022 8:49AM [facility] 0013 - CT NECK SOFT TISSUE [...] was performed concurrently and is dictated separately. Pan Devulcanizer (topogram) images: No additional findings. DIVISION OF RADIOLOGYProvider, [facility] [place] - 12/15/2022 * * *Final Report* * * DATE OF EXAM: Dec 15 2022 8:49AM [facility] 0013 - CT NECK SOFT TISSUE [...] was performed concurrently and is dictated separately. Pan Devulcanizer (topogram) images: No additional findings. IMPRESSION IMPRESSION: [...] any questions regarding this interpretation, please call [phone]. If you are unable to reach us at the number above, please feel free to contact [facility] eRadiology at [phone]. [facility] HospitalCT Neck W contrast IVOrdered By: Ccf Provider on 12-15-2022 [facility]S HospitalComprehensive metabolic 2000 panelOrdered By: Les Luke on 42-59-5735Mawlevq [Mass/Vol]5.0 g/dLHigh3.9 - 4.9 g/dLClecleveland clinic marymount [facility] ClinicALP [Catalytic activity/Vol]72 U/L38 - 113 U/LCleveland ClinicALT [Catalytic activity/Vol]16 U/L10 - 54 U/LCleveland ClinicAnion gap [Moles/Vol]12 mmol/L9 - 18 mmol/LCleveland ClinicAST [Catalytic activity/Vol]30 U/L14 - 40 U/LCleveland ClinicBilirubin [Mass/Vol]0.9 mg/dL0.2 - 1.3 mg/dLAlmo ClinicCalcium [Mass/Vol]10.5 mg/dLHigh8.5 - 10.2 mg/dLAlmo ClinicChloride [Moles/Vol]97 mmol/L97 - 105 mmol/LCleveland ClinicCO2 [Moles/Vol]28 mmol/L22 - 30 mmol/L [facility] HospitalCreatinine [Mass/Vol]0.73 mg/dL0.73 - 1.22 mg/dLSt. Rita'S Hospital GFR/1.73 sq M.predicted among non-blacks MDRD [...] eGFRmay not accurately reflect actual GFR.Glucose [Mass/Vol]106 mg/hLXgnl77 - 99 mg/dL [facility]'S HospitalComment on above:The [place] Diabetes Association (ADA) provides guidance for cutoff [...] Standards of Medical Care in Diabetes 2016, [place] Diabetes Association. Diabetes Care. 2016.39(Suppl 1). Interpretation and review of laboratory resultsAbnormalCleveland ClinicPotassium [Moles/Vol]4.7 mmol/L3.7 - 5.1 mmol/LCleveland ClinicProtein [Mass/Vol]7.8 g/dL 6.3 - 8.0 g/dLAlmo ClinicSodium [Moles/Vol]137 mmol/L136 - 144 mmol/L [facility] HospitalUrea nitrogen [Mass/Vol]11 mg/dL9 - 24 mg/dLAvita Health SystemNo Panel Informationon 15-82-0740Lmtktrpix Study observation (narrative)[facility]S HospitalAmbulatory Visit Summaryon 65-48-8627Mzxshxxinq Visit Summary CARSON MORSE :1955 Visit Date:04/06/2022 Ambulatory Visit Instructions Your Diagnosis BPH without urinary obstruction Nocturia Tests Performed Urnls Dip Stick Auto w/o Microscopy POC 84573 Your Care Team Attending Physician - Herve Flores MD, Sushil eDgroot Primary Care Physician - Elba De La [...] MD, Sushil Degroot [facility] SussexPatient Educationon 70-63-4474Kxzwbez EducationUrology Hematuria, Adult Hematuria is blood in [...] these instructions at home: Medicines ? Take uldt-yqi-bugwrfo and prescription medicines only as told by [...] the blood stops without treatment. ? Take akut-cqa-wojsmdo and prescription medicines only as told by [...] Reviewed: 11/26/2017 Elsevier Patient Education ? 2019 [employer].[facility] Urology Office/Clinic Noteon 64-05-6342Arzjxwv Office/Clinic NoteChief Complaint 7 month with PSA [...] Urnls Dip Stick Auto w/o Microscopy POC 49259 2. Nocturia (R35.1: Nocturia) ongoing 2x a night Follow-up With When Contact Information Herve Flores MD, Sushil Degroot, URO In 1 year 04/06/2023 EDT [facility] [address], [place] [address]- Additional Instructions: w/psa Patient Education Hematuria, Adult I Mariam Mchugh personally scribed for Dr. Edgar on 04/06/2022 11:59:36. . Documentation recorded by the scribe, Marima Mchugh, accurately reflects the services(s) I performed and decisions made by me. Authenticated by Sushil Edgar MD on [ Current Date and Time ]. 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 New subtle subcentimeter groundglass opacities in [...] any questions regarding this interpretation, please call [phone]. If you are unable to reach us at the number above, please feel free to contact [facility] Hospital[facility] at [phone].DIVISION OF RADIOLOGY* * *Final Report* * * DATE OF EXAM: Dec 16 2021 8:45AM [facility] 0539 - CT CHEST W IVCON [...] of an adrenal mass in the visualized lmhna-jq-jyoq. Fat-containing epigastric anterior abdominal hernia.. Pan Devulcanizer (topogram) images: No additional findings. DIVISION OF RADIOLOGYProvider, [facility] [place] - 12/16/2021 * * *Final Report* * * DATE OF EXAM: Dec 16 2021 8:45AM [facility] 0539 - CT CHEST W IVCON [...] of an adrenal mass in the visualized typil-hd-abur. Fat-containing epigastric anterior abdominal hernia.. Pan Devulcanizer (topogram) images: No additional findings. IMPRESSION IMPRESSION: [...] any questions regarding this interpretation, please call [phone]. If you are unable to reach us at the number above, please feel free to contact [facility] eRadiology at [phone]. [facility] Neck W contrast Javier 08-49-0478SLGSEJUUXV: 1. Stable anterior neck treatment changes. 2. [...] any questions regarding this interpretation, please call [phone]. If you are unable to reach us at the number above, please feel free to contact [facility] at [phone].DIVISION OF RADIOLOGY* * *Final Report* * * DATE OF EXAM: Dec 16 2021 8:33AM [facility] 0013 - CT NECK SOFT TISSUE [...] or pathological neck lymphadenopathy. DIVISION OF RADIOLOGYProvider, [facility] [place] - 12/16/2021 * * *Final Report* * * DATE OF EXAM: Dec 16 2021 8:33AM [facility] 0013 - CT NECK SOFT TISSUE [...] any questions regarding this interpretation, please call [phone]. If you are unable to reach us at the number above, please feel free to contact [facility] at [phone]. [facility] Panel Informationon 54-75-7180Imnpgtzyy ClinicRadiology Study observation (narrative)[facility] Vital Signs Date TimeVital SignValuePerforming PaackuprfTpsqbauh77-62-1615 11:16-0400Body afigzj369.1 cmAbram Fiore MD Work Phone: [facility] HospitalJegueeijtr27-45-9719 11:16-0400Body mass index (BMI) [Ratio]23.8 kg/e7DlpftdAbram Fiore MD Work Phone: [facility] HospitalXugkuchexn94-01-9386 11:16-0400Body qxotfb14.86 kgAbram Fiore MD Work Phone: [facility] HospitalEoyxsfvgzx82-79-0873 11:18-0400Diastolic blood mm[Hg]Wyatt Garza MD Work Phone: [facility]'S HospitalComment on above:yesoqvk50-13-9848 11:18-0400Systolic blood fkhcfrji520 mm[Hg]Wyatt Garza MD Work Phone: [facility]S HospitalComment on above:gshlbdu52-56-3428 11:15-0400Body wrudsd724.1 cmVfarshad Garza MD Work Phone: [facility]03-17-2025 11:15-0400Body mass index (BMI) [Ratio]25.5 kg/j6EtgjeWyatt Garza MD Work Phone: [facility]03-17-2025 11:15-0400Body temperature 97.59 [degF]Wyatt Garza MD Work Phone: [facility]03-17-2025 11:15-0400Body awzhtc28.5 kgWyatt Garza MD Work Phone: [facility]03-17-2025 11:15-0400Heart rate77 /min Wyatt Garza MD Work Phone: [facility]03-17-2025 11:15-0400Respiratory rate 16 /minWyatt Garza MD Work Phone: [facility]03-17-2025 11:15-0307IjH8% (BldA) [Mass fraction]97 %Wyatt Garza MD Work Phone: [facility]09-16-2024 08:53-0400Body kxseym682.1 cmAbram Fiore MD Work Phone: [place] [address]Lapilqfnuz10-27-6792 08:53-0400Body mass index (BMI) [Ratio]23.8 kg/v7FafigiAbram Fiore MD Work Phone: [place] [address]Dhscobveju71-22-7520 08:53-0400Body ybffis69.86 kgAbram Fiore MD Work Phone: [place] [address]Yvbctdpnyw58-17-0025 08:53-0400Diastolic blood kansfdil41 mm[Hg]Abram Fiore MD Work Phone: [place] [address]Qyuweasqsa17-91-4002 08:53-0400Systolic blood eetxiaax795 mm[Hg]Abram Fiore MD Work Phone: [facility] HospitalRrckwqfuke63-16-7435 11:41-0400Body girwnn771.1 cmVfarshad Garza MD Work Phone: [facility]08-23-2024 11:41-0400Body temperature 97.7 [degF]yWatt Garza MD Work Phone: [facility]08-23-2024 11:41-0400Diastolic blood mm[Hg]Wyatt Garza MD Work Phone: [facility]08-23-2024 11:41-0400Heart rate60 /min Wyatt Garza MD Work Phone: [facility]08-23-2024 11:41-0400Respiratory rate 16 /minWyatt Garza MD Work Phone: [facility]08-23-2024 11:41-5004HkO3% (BldA) [Mass fraction]98 %Wyatt Garza MD Work Phone: [facility]08-23-2024 11:41-0400Systolic blood pociwbfv951 mm[Hg]Wyatt Garza MD Work Phone: [facility]05-24-2024 14:27-0400Body .1 cmVfarshad Garza MD Work Phone: [facility]05-24-2024 14:27-0400Body mass index (BMI) [Ratio]23.5 kg/k4JlmxaWyatt Garza MD Work Phone: [facility]05-24-2024 14:27-0400Body temperature 97.2 [degF]Wyatt Garza MD Work Phone: [facility]05-24-2024 14:27-0400Body avrifg78.05 kgWyatt Garza MD Work Phone: [facility]05-24-2024 14:27-0400Diastolic blood yzmxdmiv62 mm[Hg]Wyatt Garza MD Work Phone: [facility]05-24-2024 14:27-0400Heart rate82 /min Wyatt Garza MD Work Phone: [facility]05-24-2024 14:27-0400Respiratory rate 16 /minWyatt Garza MD Work Phone: [facility]05-24-2024 14:27-6982UpZ7% (BldA) [Mass fraction]98 %Wyatt Garza MD Work Phone: [facility]05-24-2024 14:27-0400Systolic blood mm[Hg]Wyatt Garza MD Work Phone: [facility]02-12-2024 10:07-0500Body .1 Jaime Garza MD Work Phone: [facility]02-12-2024 10:07-0500Body temperature 97.59 [degF]Wyatt Garza MD Work Phone: [facility]02-12-2024 10:07-0500Body kijwbz28.6 kgWyatt Garza MD Work Phone: [facility]02-12-2024 10:07-0500Diastolic blood tickglyz56 mm[Hg]Wyatt Garza MD Work Phone: [facility]02-12-2024 10:07-0500Heart rate71 /min Wyatt Garza MD Work Phone: [facility]02-12-2024 10:07-0500Respiratory rate 16 /minWyatt Garza MD Work Phone: [facility]02-12-2024 10:07-4352McP8% (BldA) [Mass fraction]98 %Wyatt Garza MD Work Phone: [facility]02-12-2024 10:07-0500Systolic blood vretfcri440 mm[Hg]Wyatt Garza MD Work Phone: [facility]02-09-2023 10:48-0500Body bjvdze594.1 Jaime aGrza MD Work Phone: [facility]02-09-2023 10:48-0500Body temperature 97.59 [degF]Wyatt Garza MD Work Phone: [facility]02-09-2023 10:48-0500Body nypnda68.58 kgWyatt Garza MD Work Phone: [facility]02-09-2023 10:48-0500Diastolic blood lbgtpvue613 mm[Hg]Wytat Garza MD Work Phone: [facility]02-09-2023 10:48-0500Heart rate94 /min Wyatt Garza MD Work Phone: [facility]02-09-2023 10:48-0500Respiratory rate 16 /minWyatt Garza MD Work Phone: [facility]02-09-2023 10:48-0908IwI3% (BldA) [Mass fraction]95 %Wyatt Garza MD Work Phone: [facility]02-09-2023 10:48-0500Systolic blood nswtvuiv178 mm[Hg]Wyatt Garza MD Work Phone: [facility]08-11-2022 10:45-0400Body temperature 98.1 [degF]KAVIN Atkins MD Work Phone: [facility]08-11-2022 10:45-0400Body edxbqs06.22 kgKAVIN Atkins MD Work Phone: [facility]08-11-2022 10:45-0400Diastolic blood mm[Hg]KAVIN Atkins MD Work Phone: [facility]08-11-2022 10:45-0400Heart rate89 /min KAVIN Atkins MD Work Phone: [facility]08-11-2022 10:45-0400Respiratory rate 18 /Julio CesarKAVIN Atkins MD Work Phone: [facility]08-11-2022 10:45-5437BtY5% (BldA) [Mass fraction]100 %KAVIN Atkins MD Work Phone: [facility]08-11-2022 10:45-0400Systolic blood ptvotfpm747 mm[Hg]KAVIN Atkins MD Work Phone: [facility]05-31-2022 11:34-0400Blood Pressure Jose Miguel Edgar Jr. executive [facility] 05-31-2022 11:34-0400Diastolic blood eumfrwti33 mm[Hg] Sushil Edgar Jr. executive [facility] 05-31-2022 11:34-0400Heart rate72 /Kurt Edgar Jr. executive [facility] 05-31-2022 11:34-0400Respiratory rate16 /Kurt Edgar Jr. executive Urology [facility] 05-31-2022 11:34-0400Systolic blood ilacxwge083 mm[Hg] Sushil Edgar Jr. executive Urology [facility] Encounters Encounter DateEncounter TypeCare ProviderFacilityStart: 09-05-2025 End: 23-99-5150Uwxsgszzt Result EncounterAbram Fiore MD Work Phone: noms External Department UnsolicitedStart: 09-05-2025 End: 49-48-5364Mmhrvfyrc Result EncounterAbram Fiore MD Work Phone: noms External Department UnsolicitedStart: 08-28-2025 End: 35-81-9158Mrqfmr flowsheetAbram Fiore MD Work Phone: noms Jayce OtolaryngologyStart: 08-28-2025 End: 04-76-9392Zxmvum flowsAnna Fiore MD Work Phone: noms Jayce OtolaryngologyStart: 08-28-2025 End: 04-27-7345Zsycvn outpatient visit 25 minutesAbram Fiore MD Work Phone: noms Jayce OtolaryngologyComment on above:Non-seasonal allergic rhinitis due to other allergic trigger (Primary Dx); Chronic sinusitis, unspecified location; Tongue cancer (HCC); Bilateral impacted cerumenStart: 08-28-2025 End: 98-50-9554ljppkmwlehNUOIMT H TIMMISNot AvailableStart: 01-21-2025 End: 84-61-1235nlwkybuiygKQLRVUL M HOYFacility:[facility] Hospitaltart: 01-21-2025 End: 97-07-9017Poodat outpatient visit 25 minutesWyatt Garza MD Work Phone: Hematology/OncologyComment on above:History of head and neck cancer (Primary Dx); Lung nodulesStart: 01-18-2025 End: 60-53-6032Iwnlrsols encounterHalima Nixon MD Work Phone: GastroenterologyComment on above:Follow Up Tests Results (Labs---->needs US, Fibroscan and OV)Start: 01-16-2025 End: 13-40-5728Zcxqni-up encounterHalima Nixon MD Work Phone: GastroenterologyStart: 01-10-2025 End: 22-69-9716eezaxdexgbUALLEEY M HOYFacility:[facility] Hospitaltart: 01-10-2025 End: 86-15-3659Zpvcloyzhy hospital visit by physicianArrival Time Radiology Work Phone: Radiology Pet CTComment on above:History of head and neck cancer [Z85.89]Start: 08-23-2024 End: 19-09-8487Kjlnlk Radhika Welch [facility] Work Phone: noms AUDStart: 08-23-2024 End: 75-54-3773Gdsskw Radhika Welch [facility] Work Phone: noms AUDStart: 08-23-2024 End: 05-07-0166Yowgechj SupportDemartínez Soto Rebekah [facility] Work Phone: noms AUDComment on above:Sensorineural hearing loss (SNHL) of both ears (Primary Dx)Start: 07-23-2024 End: 97-57-8297Zydqri Néstor Fiore MD Work Phone: noms ENT NORWALKStart: 07-23-2024 End: 67-85-7914Phqnxd Néstor Fiore MD Work Phone: noms ENT NORWALKStart: 07-23-2024 End: 54-34-9026Rtfdsa outpatient visit 15 minutesAbram Fiore MD Work Phone: noms [facility] MEDICAL CENTERKComment on above:Tongue cancer (CMS/HCC) (Primary Dx)Start: 07-10-2024 End: 19-68-5945Smvwqz flowsheetAndreina Mcraeill CCC-A Work Phone: noms AUDStart: 07-10-2024 End: 27-43-7213Lterjc Guest of a GuestheetCentrastate Healthcare System Charles Rebekah [facility] Work Phone: noms AUDStart: 07-10-2024 End: 32-21-3602Vweokabx SupportDemartínez Soto Rebekah [facility] Work Phone: noms AUDComment on above:Sensorineural hearing loss (SNHL) of both ears (Primary Dx)Start: 06-29-2024 End: 61-24-4517rgyxslblemCDLPUZH M HOYFacility:[facility] Hospitaltart: 06-29-2024 End: 49-02-6323Iwwrdl outpatient visit 15 minutesWyatt Garza MD Work Phone: Hematology/OncologyComment on above:History of head and neck cancer (Primary Dx); Lung nodulesStart: 06-22-2024 End: 18-87-4538qxcxsedpquDHYUQYT M HOYFacility:[facility] Hospitaltart: 06-22-2024 End: 45-07-9578Ahuhuphapj hospital visit by physicianArrival Time Radiology Work Phone: Radiology Pet CTComment on above:History of head and neck cancer [Z85.89]Start: 22-04-6999Vnaqzhlji Javon Nixon MD Work Phone: GastroenterologyStart: 05-28-2024 End: 67-12-2040tzrcxxkxqaMRVQCHA M HOYFacility:[facility] Hospitaltart: 05-28-2024 End: 06-18-3775Rznzwoxpuy hospital [facility] by physician[facility] LoraRadiologyComment on above:Abnormal LFTs [R79.89]Start: 70-18-1140Amcuzqcxw Javon Nixon MD Work Phone: GastroenterologyStart: 05-22-2024 End: 90-89-0292pyssbkfbcsGJQOJUV M HOYFacility:[facility] Hospitaltart: 32-48-6623Cxdpgdpsz Javon Nixon MD Work Phone: GastroenterologyStart: 03-30-2024 End: 22-00-5662rerkycqgieNWKJICQ M HOFiorFacility:[facility] Hospitaltart: 03-30-2024 End: 70-85-1541Fbepzr outpatient visit 25 minutesWyatt Garza MD Work Phone: Hematology/OncologyComment on above:History of head and neck cancer (Primary Dx); Lung nodulesStart: 03-23-2024 End: 96-90-3687amsabysjarEQXHSEB M HOYFacility:[facility] Hospitaltart: 03-23-2024 End: 52-21-7843Pqkbcxebry hospital visit by physicianArrival Time Radiology Work Phone: Radiology Pet CTComment on above:Localized enlarged lymph nodes [R59.0]Start: 37-47-6620Tyzcwlnad encounterZeny Tom RN Hematology/OncologyComment on above:ResultsStart: 12-19-2023 End: 42-29-6500Svafuu outpatient visit 25 minutesWyatt Garza MD Work Phone: Hematology/OncologyComment on above:Localized enlarged lymph nodes (Primary Dx); Severe protein-calorie malnutrition (HCC); Malignant neoplasm of head, face and neck (HCC); History of head and neck cancerStart: 12-16-2023 End: 57-13-6656Ldtxpazdbn hospital visit by physicianArrival Time Radiology Work Phone: Radiology Pet CTComment on above:Lung nodules [R91.8] Start: 43-58-9263wktlvvoppzOhaxfj L SmithFacility:EU BellevueStart: 03-10-2023 ambulatoryKIMBERLEON RENDONFacility:T4Paihj: 01-27-2023 End: 38-24-0238oirpvrvuniMJ ELBA HOY .Facility:E3Fpvfo: 12-28-2022 End: 34-15-4364yvsmtacdujDJ ELBA HOY .Facility:K7Wujtg: 12-28-2022 End: 61-07-6634nczddzmgefCJ ELBA HOY .Facility:R7Dxlxx: 12-16-2022 End: 78-31-6966Bqqtvg outpatient visit 25 minutesWyatt Garza MD Work Phone: Hematology/OncologyComment on above:Malignant neoplasm of head, face and neck (HCC) (Primary Dx); Lung nodules; Disorder of thyroidStart: 12-15-2022 End: 85-40-9467Hvjgpjmtpt hospital visit by physicianArrival Time Radiology Work Phone: Radiology Pet CTComment on above:Malignant neoplasm of head, face and neck (HCC) [C76.0]Start: 59-50-2084gbxdxdenskNQ ELBA HOY . Facility:M7Gonen: 32-91-7878Jjlldt [facility] Comment on above:Chronic hepatitis C with hepatic coma (HCC) (Primary Dx)Start: 58-63-3908lnsuqzrmqoFaqyp [facility] MAINStart: 32-95-8401Hlzdsr-up encounterEritessie [facility] Specialty PharmacyComment on above:SPP Hepatology - Follow-up (Epclusa treatment complete)Start: 06-17-2022 End: 35-86-5061Xnrqzyb encounter Julio César Atkins MD Work Phone: Radiation OncologyComment on above:Effects of radiation, sequela (Primary Dx); Head and neck cancer (HCC)Start: 12-12-4929Usqdbnrbk encounterMarleni Atkins MD Work Phone: Radiation OncologyComment on above:Lab OrdersStart: 77-84-7173hxmazrerevAleczGrand Lake Joint [facility] MAINStart: 91-08-4021Vvjrdn-up encounterBhavya [facility] Specialty PharmacyComment on above:SPP Hepatology - Follow-up (Epclusa - End of Treatment)Start: 04-06-2022 End: 48-93-9469tzscdykfykMsqieq L SmithFacility:EU BellevueStart: 04-06-2022 End: 75-41-7754Lhfdjnx encounter Chantell Edgar Jr. executive Urology of [facility] [place] start: 71-23-9476Quewcftuu Javon Nixon MD Work Phone: GastroenterologyComment on above:ResultsStart: 77-86-5963Ckxcwxlka PharmacyRegional Medical Center Specialty PharmacyComment on above:SPP Hepatology - Medication Refill (Epclusa)Start: 21-21-2112Pyxiwrpqw PharmacyEriWhite Hospital Specialty PharmacyComment on above:SPP Hepatology - Medication Refill (Epclusa)Start: 70-35-3698Wriemwxto Javon Nixon MD Work Phone: GastroenterologyComment on above:Follow UpStart: 12-16-2021 End: 70-78-3271Lesaturvqo hospital visit by physicianArrival Time Radiology Work Phone: Radiology Pet CTComment on above:Malignant neoplasm of head, face and neck (HCC) [C76.0]Start: 03-14-2018 End: 86-14-7501Phhbwsk encounter procedureDolalit Fentoncility:[facility] Procedures DateProcedureProcedure DetailPerforming ClinicianStart: 92-46-2461Erhvb sinuses paranasal compl minimum 3 viewsHilary H Shasha GRANADOS Work Phone: Start: 11-35-0737Ut soft tissue neck w/contrast Lindsey Garza MD Work Phone: Start: 95-64-1187Fwdle count complete auto&auto difrntl Marva Garza MD Work Phone: Start: 41-03-2465FVOMTJGP FUNCTION TESTSFreddypullman regional hospital [facility] Work Phone: start: 69-57-0922Wt thorax w/contrast Lindsey Garza MD Work Phone: Start: 74-03-3863Ogcko count complete auto&auto difrntl Marva Garza MD Work Phone: Start: 24-62-0524Av abdominal real time w/image limitedHalima Nixon MD Work Phone: start: 62-52-1677Kd thorax w/contrast Lindsey Garza MD Work Phone: Start: 40-03-9015YKUYJPBCAS BLMary Garza MD Work Phone: Start: 58-93-4074Mr soft tissue neck w/contrast Lindsey Garza MD Work Phone: Start: 17-97-4118Uz thorax w/contrast Lindsey Garza MD Work Phone: Start: 79-49-1070Wbrvm count complete auto&auto difrntl Marva Garza MD Work Phone: Start: 29-10-9921Vq soft tissue neck w/contrast Lindsey Garza MD Work Phone: Start: 40-40-0271Fp thorax w/contrast Lindsey Garza MD Work Phone: Start: 26-79-2073Lfzae count complete auto&auto difrntl wbcWyatt Garza MD Work Phone: Start: 35-98-4732Npokl depression screening assessment Halima Nixon MD Work Phone: start: 19-18-3593QkyqfytpitFlzrug Smith Jr. start: 24-16-2239YdzrjxabywQzmyzq Smith Jr. biopsy of tongueSushil Edgar Jr. chemotherapySushil Edgar Jr. Plan of Treatment DateCare ActivityDetailAuthorStart: 32-40-0424QGX Vaccine (1 - 1-dose 75+ series)RSV Vaccine (1 - 1-dose 75+ series)[facility] 01-[facility]2028 Diabetes ScreeningDiabetes ScreeningDunlap Memorial Hospitaltart: 34-78-4999Ilrvxvsd ScreeningDiabetes ScreeningDunlap Memorial Hospitaltart: 30-42-0093Irgtnjxv Screening Diabetes ScreeningDunlap Memorial Hospitaltart: 08-27-2026 End: 54-36-2681Ekymcki encounter aarhmaqaq95/21/2026 11:20 AM EDT Office Visit SILVIA Eduardo Otolaryngology [address] [facility] [address] [place] [address] Abram Fiore MD [address] [facility] [address] [place] [address] SILVIA Eduardo OtolaryngologyStart: 02-26-2026 PROSTATE CANCER SCREENING DISCUSSIONPROSTATE CANCER SCREENING DISCUSSION [facility]: 01-21-2026 End: 59-97-1377BGG W Auto Differential panel - BloodCOMPLETE BLOOD COUNT AND DIFFERENTIAL Lab Routine History of head and neck cancer Lung nodules Expected: 01/21/2026 (Approximate), Expires: 01/21/2026leveland ClinicComment on above: Expected: 01/21/2026 (Approximate), Expires: 01/21/2026Start: 01-21-2026 End: 01-83-9435Fokrpkliocnbk metabolic 2000 panel - Serum or PlasmaCOMPREHENSIVE METABOLIC PANEL Lab Routine History of head and neck cancer Lung nodules Expected: 01/21/2026 (Approximate), Expires: 01/21/2026leveland ClinicComment on above:Expected: 01/21/2026 (Approximate), Expires: 01/21/2026Start: 01-21-2026 End: 82-33-6701MS Chest W contrast IVCT CHEST W IVCON Radiology Routine History of head and neck cancer Lung nodules Expected: 01/21/2026 (Approximate), Expires: 02/20/2026leveland ClinicComment on above:Expected: 01/21/2026 (Approximate), Expires: 02/20/2026Start: 01-21-2026 End: 85-16-2202AU Neck W contrast IVCT NECK SOFT TISSUE W IVCON Radiology Routine History of head and neck cancer Lung nodules Expected: 01/21/2026 (Approximate), Expires: 02/20/2026[facility] Work Phone: Comment on above:Expected: 01/21/2026 (Approximate), Expires: 02/20/2026Start: 01-20-2026 End: 77-41-6126Zutxjv-up urceeaziw26/16/2026 11:40 AM EDT Visit (SP) Office Hematology/Oncology [address] [place] [address] [place] [address] Wyatt Garza MD [address] [place] [address] [address] FOLLOW UP AFTER CT SCANHematology/OncologyComment on above:1 YEAR FOLLOW UP AFTER CT SCANStart: 01-13-2026 End: 38-49-2867Iammtfd encounter eaomtcdrx43/09/2026 7:45 AM EDT Appointment Radiology Pet CT [address] [place] [address] [place] [address] CT CHEST AND NECKRadiology Pet CTComment on above:CT CHEST AND NECKStart: 01-10-2026 Screening for malignant neoplasm of lungLung Cancer ScreeningSt. Rita'S Hospital Start: 21-04-7398QSOWDLVE SCREENDIABETES SCREENDunlap Memorial Hospitaltart: 10-07-2025 End: 23-65-9601Itktyge encounter uzptxtkzp47/01/2025 11:20 AM EST Office Visit [facility] [place] Otolaryng[facility] [address] [facility] [address] [place] [address] Abram Fiore MD [address] [place] [address] [place] [address] [facility] [place] OtolaryngologyStart: 08-28-2025 End: 20-07-0858Nendgbh encounter ykuplevfr16/22/2025 11:20 AM EDT Office Visit [facility] [place] Otol[facility] [address] [facility] [address] [place] [address] Abram Fiore MD [address] [facility] [address] [place] [address] ArrivedNOMS [place] OtolaryngologyComment on above:ArrivedStart: 53-65-7388Kzhfxiwbl vaccinationInfluenza Vaccine (Season Ended)[facility]: 83-24-1035Ifxkdehpw for malignant neoplasm of lung Lung Cancer ScreeningDunlap Memorial Hospitaltart: 05-24-2025 End: 73-46-9349Kdicwdcup C virus RNA [Units/volume] (viral load) in Serum or Plasma by PAULA with probe detectionHEPATITIS C RNA QUANTIFICATION BY PCR, PLASMA/SERUM Lab Routine Chronic hepatitis C without hepaticcoma (HCC) Expected: 05/24/2025 (Approximate), Expires: 08/23/2025[facility] Work Phone: comment on above:Expected: 05/24/2025 (Approximate), Expires: 08/23/2025Start: 48-04-2101Cerkndvgm for malignant neoplasm of lungLung Cancer ScreeningDunlap Memorial Hospitaltart: 01-21-2025 End: 53-92-4069Cnahhw-up encounterHematology/OncologyComment on above:6 [address] up [address] scan6 month follow up after CT scan w/labsStart: 01-07-2025 End: 69-35-0207Fmbjeb-up yxpzhmejg85/03/2025 8:30 AM EST Visit (SP) Office Hematology/Oncology [address] [place] [address] [address] [place], [place] [phone] Wyatt Garza MD [address] [place] [address] 6 month follow up after [address] scanHematology/OncologyComment on above:6 month [address] up [address] scanStart: 12-31-2024 End: 44-59-3455Pduqiez encounter egxlozgix07/24/2025 8:45 AM EST Appointment Radiology Pet CT [address] [place] [address] CT CHEST AND NECKRadiology Pet CTComment on above:CT CHEST AND NECKStart: 12-30-2024 End: 91-76-7459EMV W Auto Differential panel - BloodCOMPLETE BLOOD COUNT AND DIFFERENTIAL Lab Routine History of head and neck cancer Lung nodules Expected: 12/30/2024 (Approximate), Expires: 06/29/2025[facility] ClinicComment on above: Expected: 12/30/2024 (Approximate), Expires: 06/29/2025Start: 12-30-2024 End: 23-33-5893Erekuakgwiyem metabolic 2000 panel - Serum or PlasmaCOMPREHENSIVE METABOLIC PANEL Lab Routine History of head and neck cancer Lung nodules Expected: 12/30/2024 (Approximate), Expires: 06/29/2025[facility] ClinicComment on above:Expected: 12/30/2024 (Approximate), Expires: 06/29/2025Start: 12-30-2024 End: 70-61-4449XY Chest W contrast IVCT CHEST W IVCON Radiology Routine History of head and neck cancer Lung nodules Expected: 12/30/2024 (Approximate), Expires: 07/29/2025[facility] HospitalComment on above:Expected: 12/30/2024 (Approximate), Expires: 07/29/2025Start: 12-30-2024 End: 83-81-8423TJ Neck W contrast IVCT NECK SOFT TISSUE W IVCON Radiology Routine History of head and neck cancer Lung nodules Expected: 12/30/2024 (Approximate), Expires: 07/29/2025[facility] Work Phone: Comment on above:Expected: 12/30/2024 (Approximate), Expires: 07/29/2025Start: 76-46-0034DPNOORBE SCREENDIABETES SCREENDunlap Memorial Hospitaltart: 43-20-1984Hvywllygm for malignant neoplasm of lungLung Cancer ScreeningDunlap Memorial Hospitaltart: 12-13-2024 End: 71-31-3865Mscjf-1-Fetoprotein [Mass/volume] in Serum or PlasmaALPHA FETOPROTEIN Lab Routine Fatty liver Expected: 12/13/2024 (Approximate), Expires: 03/14/2025[facility] Work Phone: comment on above:Expected: 12/13/2024 (Approximate), Expires: 03/14/2025Start: 12-13-2024 End: 23-36-6469VN Abdomen RUQUS ABD RIGHT UPPER QUADRANT Radiology Routine Fatty liver Expected: 12/13/2024 (Approximate), Expires: 07/12/2025[facility] Comment on above:Expected: 12/13/2024 (Approximate), Expires: 07/12/2025Start: 29-60-9752Gqpxlbp Directive DiscussionAdvance Directive DiscussionDunlap Memorial Hospitaltart: 09-13-2024 End: 71-38-7383Dxeieck encounter mspsipszi23/07/2024 2:00 PM EST Office Visit [facility] [address] [place] [address] PPWK AUDStart: 08-23-2024 End: 50-03-0105Zlyhhepj SupportNOMS AUDComment on above:ArrivedStart: 07-23-2024 End: 57-95-8877Ozwkgeh encounter procedureNO NICO CLINTSHAKAKComment on above: ArrivedStart: 07-10-2024 End: 41-14-0523Qcylqjqi Oobzrex5507/10/2024 1:30 PM EDT Clinical Support [facility] [address] [facility] [place] [address] Andreina Welch, [facility] [address] [facility] [place] [address] ArrivedNO AUDComment on above:ArrivedStart: 07-08-2024 Covid-19 Vaccine ()Covid-19 Vaccine () [facility]: 58-85-0290Cjqcg-19 Vaccine ()Covid-19 Vaccine ()[facility]: 88-14-0106Nfklvduxq vaccinationDunlap Memorial Hospitaltart: 06-30-2024 End: 07-46-3572LDC W Auto Differential panel - BloodCOMPLETE BLOOD COUNT AND DIFFERENTIAL Lab Routine History of head and neck cancer Lung nodules Expected: 06/30/2024 (Approximate), Expires: 03/30/2025[facility] ClinicComment on above: Expected: 06/30/2024 (Approximate), Expires: 03/30/2025Start: 06-30-2024 End: 75-53-0962Kniyrylumnhok metabolic 2000 panel - Serum or PlasmaCOMPREHENSIVE METABOLIC PANEL Lab Routine History of head and neck cancer Lung nodules Expected: 06/30/2024 (Approximate), Expires: 03/30/2025[facility] ClinicComment on above:Expected: 06/30/2024 (Approximate), Expires: 03/30/2025Start: 06-30-2024 End: 30-73-5013SE Chest W contrast IVCT CHEST W IVCON Radiology Routine History of head and neck cancer Lung nodules Expected: 06/30/2024 (Approximate), [facility]: [facility]/2025[facility] Work Phone: Comment on above:Expected: 06/30/2024 (Approximate), Expires: 04/29/2025Start: 06-29-2024 End: 80-65-8982Bprwfr-up /23/2024 11:15 AM EDT Visit (SP) Office Hematology/Oncology [address] [place] [address] Wyatt Garza MD [address] [place] [address] 3 MONTH FOLLOW UP AFTER CTHematology/OncologyComment on above:3 MONTH FOLLOW UP AFTER CTStart: 06-22-2024 End: 58-36-9575Fhvdocb encounter iptohxurz71/16/2024 7:45 AM EDT Appointment Radiology Pet CT [address] [place] [address] CT CHEST W IVRadiology Pet CTComment on above:CT CHEST W IVStart: 05-28-2024 End: 55-83-2788Vloheuk encounter comkxumsq68/22/2024 2:30 PM EDT Appointment Radiology [address] [place], [place] [id number] no spl chkf [facility] 05/21 Abnormal LFTs [R79.89]RadiologyComment on above:no spl chkf g 05/21 Abnormal LFTs [R79.89]Start: 05-21-2024 End: 35-31-1530Ixalubwrc C virus RNA [Units/volume] (viral load) in Serum or Plasma by PAULA with probe detectionHEPATITIS C RNA QUANTIFICATION BY PCR, PLASMA/SERUM Lab Routine Abnormal LFTs Chronic hepatitis C without hepatic coma (HCC) Expected: 05/21/2024 (Approximate), Expires: 08/20/2024[facility] Comment on above:Expected: 05/21/2024 (Approximate), Expires: 08/20/2024Start: 05-21-2024 End: 46-81-9418DN Abdomen RUQUS ABD RIGHT UPPER QUADRANT Radiology Routine Abnormal LFTs Chronic hepatitis C without hepatic coma (HCC) Expected: 05/21/2024 (Approximate), [facility] Work Phone: comment on above:Expected: 05/21/2024 (Approximate), Expires: 06/16/2025Start: 01-30-2024 End: 26-27-4147PYJFNNLBCC BLDCREATININE BLD Lab Routine Localized enlarged lymph nodes History of head and neck cancer Expected:01/30/2024, Expires: 01/17/2025 [facility] Work Phone: Comment on above:Expected: 01/30/2024, Expires: 01/17/2025Start: 01-30-2024 End: 44-60-2164CE Chest W contrast IVCT CHEST W IVCON Radiology Routine Localized enlarged lymph nodes History of head and neck cancer Expected: 01/30/2024, Expires: 01/17/2025[facility] Work Phone: Comment on above:Expected: 01/30/2024, Expires: 01/17/2025Start: 12-16-2023 End: 69-45-1945CYU W Auto Differential panel - BloodCBC + DIFF Lab Routine Lung nodules Expected: 12/16/2023 (Approximate), Expires: 12/16/2023[facility] Work Phone: Comment on above:Expected: 12/16/2023 (Approximate), Expires: 12/16/2023Start: 12-16-2023 End: 63-63-2332Holjwvenvjqfx metabolic 2000 panel - Serum or PlasmaCOMP METABOLIC PANEL Lab Routine Lung nodules Expected: 12/16/2023 (Approximate), Expires: 12/16/2023[facility] Work Phone: Comment on above:Expected: 12/16/2023 (Approximate), Expires: 12/16/2023Start: 12-16-2023 End: 78-83-6260WE CHEST W IVCONCT CHEST W IVCON Radiology Routine Lung nodules Expected: 12/16/2023 (Approximate), Expires: 01/15/2024[facility] Work Phone: Comment on above:Expected: 12/16/2023 (Approximate), Expires: 01/15/2024Start: 12-16-2023 End: 49-36-0518Hc soft tissue neck w/contrast materialCT NECK SOFT TISSUE W IVCON Radiology Routine Lung nodules Expected: 12/16/2023 (Approximate), Expir es: 01/15/2024[facility] Work Phone: Comment on above:Expected: 12/16/2023 (Approximate), Expires: 01/15/2024Start: 43-67-8771Ojdtvxhwq vaccinationLUNG CANCER SCREENING [facility]: 20-00-4127Tqdxrqj Directive DiscussionAdvance Directive DiscussionDunlap Memorial Hospitaltart: 73-59-1056Bezdsbnpky Health ScreeningBehavioral Health ScreeningDunlap Memorial Hospitaltart: 81-60-3900Gvlrmcxijt Assessment Depression AssessmentDunlap Memorial Hospitaltart: 71-18-7638Mdcyy-19 Vaccine ()Covid-19 Vaccine ()[facility]: 81-50-9497Qrxutsedo vaccinationInfluenza Vaccine (#1)[facility]: 12-18-2022 End: 76-58-9336Nz thorax w/o contrast materialCT CHEST WO IVCON Radiology Routine Effects of radiation, sequela Head and neck cancer (HCC) Expected: 12/18/2022, Expires: 07/17/2023[facility] Work Phone: Comment on above:Expected: 12/18/2022, Expires: 07/17/2023Start: 47-14-7659Ydiui depression screening assessmentDEPRESSION SCREENINGDunlap Memorial Hospitaltart: 70-28-4880Witoablrx vaccinationLUNG CANCER SCREENINGDunlap Memorial Hospitaltart: 67-59-4042YUHKBLS DIRECTIVE DISCUSSIONADVANCE DIRECTIVE DISCUSSIONDunlap Memorial Hospitaltart: 46-12-3607GEDANAZXRR ASSESSMENT DEPRESSION ASSESSMENTDunlap Memorial Hospitaltart: 07-30-2022 End: 52-81-0300Odzbqokvt C virus RNA [Units/volume] (viral load) in Serum or Plasma by PAULA with probe detectionHCV QUANT RNA BY PCR Lab Routine Chronic hepatitis C with hepatic coma (HCC) Expected: 07/30/2022 (Approximate), Expires: 09/29/2022[facility] Work Phone: comment on above:Expected: 07/30/2022 (Approximate), Expires: 09/29/2022tart: 43-33-6375Eabbqlufm vaccinationDunlap Memorial Hospitaltart: 06-09-2022 End: 77-83-5863Qvtmevlhday [Units/volume] in Serum or PlasmaTSH BLD Lab Routine Effects of radiation, sequela Expected: 06/09/2022, Expires: 08/09/2022[facility] Work Phone: Comment on above:Expected: 06/09/2022, Expires: 08/09/2022tart: 06-09-2022 End: 15-90-8042Hlwnwhgsu (T4) [Mass/volume] in Serum or PlasmaT4/THYROXINE BLOOD Lab Routine Effects of radiation, sequela Expected: 06/09/2022, Expires: 08/09/2022[facility] Work Phone: Comment on above:Expected: 06/09/2022, Expires: 08/09/2022tart: 79-80-2316UZJLXCD DIRECTIVE DISCUSSIONADVANCE DIRECTIVE DISCUSSIONDunlap Memorial Hospitaltart: 83-73-4805XENODENCX AGE 65 AND OVER WITH 5YR LOOKBACK (#1)PNEUMOVAX AGE 65 AND OVER WITH 5YR LOOKBACK (#1)[facility] Start: 86-17-9949Rghyvomao vaccinationINFLUENZA (#1)[facility]: 40-96-6155YABIQGVGM B (1 of 3 - Risk 3-dose series)HEPATITIS B (1 of 3 - Risk 3- dose series)[facility]: 01-86-1666Fvkuddtdw B Vaccine (1 of 3 - Risk 3-dose series)Hepatitis B Vaccine (1 of 3 - Risk 3-dose series)[facility] Start: 35-56-2902TRR Vaccine (1 - 1-dose 60+ series)RSV Vaccine (1 - 1-dose 60+ series)[facility]: 43-72-6268QKM Vaccine (1 - Risk 60-74 years 1-dose series)RSV Vaccine (1 - Risk 60-74 years 1-dose series)[facility]: 59-00-2450IDHGBHRD CANCER SCREENING DISCUSSIONPROSTATE CANCER SCREENING DISCUSSIONDunlap Memorial Hospitaltart: 93-51-6480Yjwequmg specific antigen measurement Prostate Cancer Screening DiscussionDunlap Memorial Hospitaltart: 83-45-4961WEDBPDCN VACCINE (1 of 2)SHINGRIX VACCINE (1 of 2)[facility]: 2001 COLOGUARD (FIT-DNA)COLOGUARD (FIT-DNA)[facility]: 2001 ColonoscopyCOLONOSCOPYDunlap Memorial Hospitaltart: 78-87-8957LEYFTMZTGM CANCER SCREENINGCOLORECTAL CANCER SCREENINGDunlap Memorial Hospitaltart: 30-48-5823WW COLONOGRAPHYCT COLONOGRAPHYDunlap Memorial Hospitaltart: 82-20-9458PKJOE OCCULT BLOOD FECAL OCCULT BLOODDunlap Memorial Hospitaltart: 34-63-7766Ipeklrex specific antigen measurementProstate Cancer Screening DiscussionDunlap Memorial Hospitaltart: 2001 Screening for malignant neoplasm of colonDunlap Memorial Hospitaltart: 2001 SIGMOIDOSCOPYSIGMOIDOSCOPYDunlap Memorial Hospitaltart: 96-68-6969Bgisx panelLipid ScreeningDunlap Memorial Hospitaltart: 70-76-4187MTKBU SCREENLIPID SCREENDunlap Memorial Hospitaltart: 34-51-9673AELEMNQKM B (1 of 3 - Risk 3-dose series)HEPATITIS B (1 of 3 - Risk 3-dose series)[facility]: 66-62-3643Momochgwqzyp Vaccine: 50+ (1 of 2 - PCV)Pneumococcal Vaccine: 50+ (1 of 2 - PCV)[facility] Start: 96-21-1787TFNREAIO VACCINE (1 of 2)SHINGRIX VACCINE (1 of 2)[facility]: 50-06-7059Odaev microalbumin profileCleLutheran Hospitaltart: 65-39-4933Aqfqqct ScreeningAnxiety ScreeningDunlap Memorial Hospitaltart: 1974 Depression ScreeningDepression ScreeningDunlap Memorial Hospitaltart: 41-35-4053VIT SCREENINGHIV SCREENINGDunlap Memorial Hospitaltart: 69-71-8315Jkvlspzvbhxk Vaccine: 65+ (1 of 2 - PCV)Pneumococcal Vaccine: 65+ (1 of 2 - PCV)[facility]: 26-71-7759YHWOFBDJSIPL: 65+ (1 - PCV)PNEUMOCOCCAL: 65+ (1 - PCV)[facility] Start: 17-97-6234AOENN-19 VACCINE (#1)COVID-19 VACCINE (#1)[facility] Start: 85-73-4039KPDSX-19 VACCINE (1)COVID-19 VACCINE (1)[facility]: 11-91-6719MLDWP-19 VACCINE (#1)COVID-19 VACCINE (#1)[facility]: 82-57-8796BJSXWJQMP AORTIC ANEURYSM SCREENINGABDOMINAL AORTIC ANEURYSM SCREENING [facility]: 23-59-5807Wjfdyqgmd aortic aneurysm screeningAbdominal Aortic Aneurysm ScreeningAdams County HospitalOfpmyqUfnki-8-Lihmczldrpz [Mass/volume] in Serum or PlasmaALPHA FETOPROTEIN Lab Routine Fatty liver 01/10/2025 2:10 PM EST [facility] Work Phone: cT Chest W contrast IVCT CHEST W IVCON Radiology Routine History of head and neck cancer Lung nodules 01/10/2025 3:05 PM [facility] Work Phone: End: 94-43-2515ZMAXUGA FUNCTION PNLHEPATIC FUNCTION PNL Lab Routine Hepatitis C antibody positive in blood Every 3 weeks for 2 Occurrences starting 01/26/[address] [place] [address] Work Phone: comment on above:Every 3 weeks for 2 Occurrences starting 01/26/2022 until 01/25/2023 End: 88-78-3842Ummfntshx C virus RNA [Units/volume] (viral load) in Serum or Plasma by PAULA with probe detectionHCV QUANT RNA BY PCR Lab Routine Hepatitis C antibody positive in blood Every 3 weeks for 2 Occurrences starting 01/26/2022 until 01/25/2023[facility] Work Phone: comment on above:Every 3 weeks for 2 Occurrences starting 01/26/2022 until 01/25/2023Liver ultrasound attenuation by transient elastographyDDI VIBRATION CONTROLLED TRANSIENT ELASTOGRAPHY (VCTE) Endoscopy Routine Fatty liver Ordered: 4[facility] ClinicComment on above:Ordered: 06/18/2024Thyrotropin [Units/volume] in Serum or PlasmaTSH BLD Lab Routine Effects of radiation, sequela 06/17/2022 10:58 AM [facility] Work Phone: Thyroxine (T4) [Mass/volume] in Serum or Plasma T4/THYROXINE BLOOD Lab Routine Effects of radiation, sequela 06/17/2022 10:58 AM [facility] Work Phone: [facility] Immunizations Immunization DateImmunizationNotesCare ProviderFacilityNEGATED: Highlighted row has not occurred!55-69-4269guktnjyxz virus vaccine, unspecified formulation Sushil Edgar Jr. executive [facility] Payers DatePayer CategoryPayerPolicy [id number] (Managed Care) [id number] [id number] Health Insurance [id number] [id number] 2022Medicare [id number] 2022MedicaidMEDICAID [facility] MEDICAID [id number] 2021-Present [phone] [address] [place], [place] [id number]. [id number] [id number] Health [id number] [id number]. [id number] 2.16.840.1.646341.3.57[id number] 2.16.840.1.282600.3.57[id number] 2.16.840.1.727110.3.57[id number] 2.16.840.1.638997.3.57[id number] 2.16.840.1.334578.3.57[id number] 2.16.840.1.252165.3.57[id number] 2.16.840.1.33[id number] 2.16840.1.458892.3.579.2.531 Social History DateTypeDetailFacilityStart: 11-07-1971 End: 07-51-7126Lfcsbkd smoking status NHISSmokes tobacco dailySt. Rita'S Hospital Start: 11-07-1971 End: 43-41-9308Soetdkf of tobacco useCigarette SmokerDunlap Memorial Hospitaltart: 10-13-2020 End: 16-66-2656Egkxbljgut smoked current (pack per day) - Lwupjcpi5Rtxgkegdg ClinicStart: 10-13-2020 End: 70-85-3656Ulkhczt use and exposureUser of smokeless tobaccoSt. Rita'S Hospital Start: 12-17-2021 End: 89-97-0934Akvfpad intakeCurrent drinker of alcohol (finding)[facility] Hospitaltart: 96-34-4993Kfsjixq SDOH Alcohol CommentsociallyCLicking Memorial Hospital Start: 01-09-2018 End: 46-33-9440Dxtamqd Commentstarted 1972Dun[facility] Hospitaltart: 03-37-9340Ejr Assigned At BirthNot on fileDunlap Memorial Hospitaltart: 01-10-2022 End: 12-31-8378Acpsyaac to SARS-CoV-2 (event)Unable to assessSt. Rita'S Hospital Start: 54-18-6921Rngzrdd smoking statusLight tobacco smoker (finding)Executive [facility] start: 12-19-2023 End: 10-34-0978Qjd Assigned At BirthMaleExunc [facility] start: 06-07-2022 End: 33-13-6388Fcagsoxz to SARS-CoV-2 (event)Not sureDunlap Memorial Hospitaltart: 60-64-9521Ljhrr Depression Screening Vkxjmytdec8Jdkmmfzdc ClinicStart: 03-28-2023 End: 03-02-0994Ngmrudp use and exposureSmokeless tobacco non-userNOOR Healthcare Start: 06-86-4385Qxyyzty CommentSmokes 6-10 cigarettes/dayNOMS HealthcareStart: 45-38-4928Jsrrblt CommentCaffeine >4 cups/dayNOMS HealthcareStart: 07-20-2023 Alcoholic beverage intakeEx-drinker (finding)[facility] Clinical Notes 12-16-2021 to 08-28-2025 Note Date & ApmgCqxkLsudpzwn08-28-7540 History of Present illness Narrative* Abram Fiore MD - 08/28/2025 11:20 AM EDT Images from the original note were not included. Subjective Patient ID: Carson Morse is a 69 y.o. 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 Chronic hepatitis C ([facility]) 08/28/2025 Closed fracture of ankle 08/28/2025 Closed fracture of distal end of right fibula 08/28/2025 Closed fracture of upper end of fibula 08/28/2025 COPD (chronic obstructive pulmonary disease) ([facility]) 08/28/2025 Diarrhea 08/28/2025 Dysphagia 08/28/2025 Erectile dysfunction 08/28/2025 Facial fracture ([facility]) 08/28/2025 Odynophagia 08/28/2025 Opioid abuse ([facility]) 08/28/2025 Leukocytosis 08/28/2025 Poisoning by unspecified narcotics, accidental (unintentional), initial encounter ([facility]) 08/28/2025 Recurrent falls 08/28/2025 Solitary pulmonary [...] [2] Past Surgical History: Procedure Laterality Date AL LARYNGOSCOPY,DIRECT,DX,OP MICROSCOP 12/27/2017 [3] No Known Allergies [...] file prior to visit. documented in this encounterSainte Genevieve County Memorial [id number] History of Present illness Narrative* Wyatt Garza MD - 01/21/2025 11:40 AM EDT Images from the original note were not included. NAME: Carson Morse CLINIC NO.: [id number] DATE OF SERVICE: January 21, 2025 (Mirian) [...] organ systems. Used to work on the [employer] for [employer]. Updated Visit, June 19, 2020: Thom is [...] which included preparing to see the patient, qbev-qe-cvuq patient care, completing clinical documentation, performing a medically appropriate examination, counseling and educating the patient/family/caregiver, ordering medications, tests, or procedures, independently interpreting results (not separately reported), communicating results to the patient/family/caregiver, and care coordination (not separately reported). Wyatt Garza MD, CPE Hematology and Oncology Services Provided at: [place], [place] CC: Elba De La Cruz MD [address] [facility] [address] Halima Nixon MD documented in this encounterSt. Rita'S Hospital03-17-2025 NoteHNO ID: [id number] Author: WYATT GARZA MD Service: ? Author Type: Physician Type: Progress Notes Filed: 01/21/2025 11:32 Note Text: NAME: Carson Morse CLINIC NO.: [id number] DATE OF SERVICE: January 21, 2025 (Mirian) [...] January 21, 2025: Recovered (more content not included)...[facility]03-17-2025 Instructions* Patient Instructions* Wyatt Garza MD - 01/21/2025 11:[address] Neck Chest in 12 months Labs same day - include CBC, CMP RTC 1 week after with me to review documented in this encounterSt. Rita'S Hospital03-14-2025 Telephone encounter Note * Telephone Encounter - Ivette Lala - 01/18/2025 12:31 PM EDT Unable to lvm and no mychart [facility]03-14-2025 Miscellaneous Notes* Telephone Encounter - DaiIvette - 01/18/2025 12:31 PM EDT Unable to lvm and no mychart * Telephone Encounter - Mary Villarreal RN - 01/18/2025 10:48 AM EDT Images from the original note were not included. Pt notified of results and recommendations and verbalized understanding. Schedulers, please call pt to schedule US, Fibroscan and OV. Orders are already placed. Thank you, NOLAN Meeks Noma, MD [facility] [place], [place] Nurse Closter Normal AFP Patient is overdue for US He needs to schedule Halima Nixon MD documented in this encounterSt. Rita'S Hospital03-14-2025 Telephone encounter Note * Telephone Encounter - Mary Villarreal RN - 01/18/2025 10:48 AM EDT Images from the original note were not included. Pt notified of results and recommendations and verbalized understanding. Schedulers, please call pt to schedule US, Fibroscan and OV. Orders are already placed. Thank you, NOLAN Meeks Noma, MD [facility] [place], [place] Nurse Closter Normal AFP Patient is overdue for US He needs to schedule Halima Nixon MD [facility] Work Phone: [phone]) 232-969503-06-2025 History of Present illness Narrative* Roxann Mcgregor [...] 10, 2025 TIME: 2:44 PM * Sonja Melgar, RT(R) - 01/10/2025 2:15 PM EST Radiology [...] PATIENT PRESENTS WITH AN IMPLANTABLE OR ATTACHED COAT ROOM ATTENDANT: No RADIOLOGY DEPARTMENT: CT; Exam(s) Completed: Chest and Neck PERIPHERAL IV DATA: Site assessment: Clean,Dry and Intact, Site disposition Discontinued SIGNED BY: ANNABELLE Stewart) January 10, 2025 2:51 PM documented in this encounterSt. Rita'S Hospital03-06-2025 NoteHNO ID: [id number] Author: SONJA MELGAR RT (R) Service: ? [...] PATIENT PRESENTS WITH AN IMPLANTABLE OR ATTACHED COAT ROOM ATTENDANT: No RADIOLOGY DEPARTMENT: CT; Exam(s) Completed: Chest and Neck PERIPHERAL IV DATA: Site assessment: Clean,Dry and Intact, Site disposition Discontinued SIGNED BY: ANNABELLE Stewart) January 10, 2025 2:51 [facility]03-06-2025 NoteHNO ID: [id number] Author: ROXANN MCGREGOR RN Service: ? Author [...] Morse DATE: January 10, 2025 TIME: 2:44 [facility]10-17-2024 History of Present illness Narrative* Andreina Welch, [facility] - 08/23/2024 11:15 AM EDT Hearing Aid Fitting: Pt fit with [address] [place] [address] T aids coupled to [...] quicker. 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 Pt has flip phone so he cannot use the luis manuel. Pt did notwant to wear the aids home so aids were put in the case. Made follow up appointment and completed HCS paperwork documented in this encounterSainte Genevieve County Memorial [id number] History of Present illness Narrative* Abram Fiore MD - 07/23/2024 9:00 AM EDT Subjective Patient ID: Carson Morse is a 68 y.o. 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 Benign prostatic hyperplasia without urinary obstruction 06/21/2023 Current smoker 06/21/2023 Hoarse voice quality 06/21/2023 Lung nodules 12/18/2020 Malignant neoplasm of head, face and neck (CMS/HCC) 12/18/2020 Mucositis due to radiation therapy 02/27/2018 Myelosuppression 03/24/2018 Severe protein-calorie malnutrition (CMS/HCC) 02/27/2018 Closed right maxillary fracture (CMS/HCC) 07/20/2023 Resolved Ambulatory Problems Diagnosis Date Noted History of tongue cancer 06/21/2023 Nocturia 06/21/2023 Past Medical History: Diagnosis Date COVID-19 10/2021 SCC (squamous cell carcinoma) 12/27/2017 Past Surgical History: Procedure Laterality Date AL LARYNGOSCOPY,DIRECT,DX,OP MICROSCOP 12/27/2017 No Known Allergies Current [...] all orders for this visit: Tongue cancer ([facility]) CADEN today documented in this encounterSainte Genevieve County Memorial HospitalAhjkjyvmir02-30-1969 History of Present illness Narrative* Andreina Welch, [...] 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 He will owe $250 to [facility]. Explained HCS process to pt and made HAF in 6 weeks documented in this encounterSainte Genevieve County Memorial [id number] Instructions* Patient Instructions* Svetlana Call - 06/29/2024 12:[address] Neck Chest in 12/2024 Labs same day - include CBC, CMP RTC 1 week after with me to review Pursue annual scans and visits after December 2024 documented in this encounterSt. Rita'S Hospital08-23-2024 History of Present illness Narrative* Wyatt Garza MD - 06/29/2024 11:15 AM EDT Images from the original note were not included. NAME: Carson Morse CLINIC NO.: [id number] DATE OF SERVICE: June 29, 2024 (Mirian) [...] organ systems. Used to work on the [employer] for [employer]. Updated Visit, June 19, 2020: [...] which included preparing to see the patient, jyzl-vy-jwjo patient care, completing clinical documentation, performing a medically appropriate examination, counseling and educating the patient/family/caregiver, ordering medications, tests, or procedures, independently interpreting results (not separately reported), communicating results to the patient/family/caregiver, and care coordination (not separately reported). Wyatt Garza MD, CPE Hematology and Oncology Services Provided at: [facility], [place], [place] Scribe Attestation: This note was scribed [...] Elba De La Cruz MD [address] [facility] [address] Halima Nixon MD documented in this encounterSt. Rita'S Hospital08-23-2024 NoteHNO ID: [id number] Author: WYATT GARZA MD Service: ? Author Type: Physician Type: Progress Notes Filed: 06/30/2024 21:51 Note Text: NAME: Carson Morse CLINIC NO.: [id number] DATE OF SERVICE: June 29, 2024 (Mirian) [...] he is getting o (more content not included)...[facility]08-16-2024 History of Present illness Narrative* Roxann Mcgregor RN - 06/22/2024 7:45 AM EDT Radiology Service [...] 22, 2024 TIME: 8:31 AM * Sonja Melgar, RT(R) - 06/22/2024 7:45 AM EDT Radiology [...] PATIENT PRESENTS WITH AN IMPLANTABLE OR ATTACHED COAT ROOM ATTENDANT: No RADIOLOGY DEPARTMENT: CT; Exam(s) Completed: Chest PERIPHERAL IV DATA: Site assessment: Clean,Dry and Intact, Site disposition Discontinued SIGNED BY: RT Terry(Porter) June 22, 2024 8:54 AM documented in this encounterSt. Rita'S Hospital08-16-2024 NoteHNO ID: [id number] Author: SONJA MELGAR RT(R) Service: ? Author [...] PATIENT PRESENTS WITH AN IMPLANTABLE OR ATTACHED COAT ROOM ATTENDANT: No RADIOLOGY DEPARTMENT: CT; Exam(s) Completed: Chest PERIPHERAL IV DATA: Site assessment: Clean,Dry and Intact, Site disposition Discontinued SIGNED BY: ANNABELLE Stewart) June 22, 2024 8:54 [facility]08-16-2024 NoteHNO ID: [id number] Author: ROXANN MCGREGOR RN Service: ? Author [...] Morse DATE: June 22, 2024 TIME: 8:31 [facility]08-06-2024 Telephone encounter Note* Telephone Encounter - [...] Please review and sign Emily Hi RN [facility]08-06-2024 Miscellaneous Notes* Telephone Encounter - Emily [...] sign Emily Hi RN documented in this encounterSt. Rita'S Hospital07-22-2024 History of Present illness Narrative* Melba [...] PATIENT PRESENTS WITH AN IMPLANTABLE OR ATTACHED COAT ROOM ATTENDANT: No RADIOLOGY DEPARTMENT: Ultrasound PERIPHERAL IV DATA: Not applicable SIGNED BY: Melba Ag RDMS May 28, 2024 1:49 PM documented in this encounterSt. Rita'S Hospital07-22-2024 NoteHNO ID: [id number] Author: MELBA AG RDMS Service: Radiology Author Type: Traveler Changer Type: Progress Notes Filed: 05/28/2024 13:57 Note [...] PATIENT PRESENTS WITH AN IMPLANTABLE OR ATTACHED COAT ROOM ATTENDANT: No RADIOLOGY DEPARTMENT: Ultrasound PERIPHERAL IV DATA: Not applicable SIGNED BY: Melba Ag RDMS May 28, 2024 1:49 [facility]CMer[facility]07-[facility] Telephone encounter Note* Telephone Encounter - Emily Armstrong RN - 05/24/2024 9:49 AM EDT ----- Message from Halima Nixon MD sent at 05/23/2024 2:56 PM EDT ----- Negative hep C RNA consistent with sustained response Repeat in one year Reviewed test results Pt read result message from Dr. Nixon via [employer]. Called and spoke to patient regarding test results and recommendation from Dr. Nixon Pt state dUS is sched for [facility] [place] Demonstrated understanding Dr. Lund, Orders submitted for repeat Hep C RNA Please review and sign Emily Hi RN [facility]07-18-2024 Miscellaneous Notes* Telephone Encounter - Emily Armstrong RN - 05/24/2024 9:49 AM EDT ----- Message from Halima Nixon MD sent at 05/23/2024 2:56 PM EDT ----- Negative hep C RNA consistent with sustained response Repeat in one year Reviewed test results Pt read result message from Dr. Nixon via [employer]. Called and spoke to patient regarding test results and recommendation from Dr. Nixon Pt state dUS is sched for [facility] [place] Demonstrated understanding Dr. Lund, Orders submitted for repeat Hep C RNA Please review and sign Emily Hi RN documented in this encounterSt. Rita'S Hospital07-15-2024 Telephone encounter Note * Telephone Encounter - Emily Armstrong RN - 05/21/2024 10:14 AM EDT Called and updated pt on scheduling US Phone number provided for scheduling Also instructed to complete lab draw at [facility] facility Pt demonstrated understanding Emily Armstrong RN [facility]07-15-2024 Miscellaneous Notes* Telephone Encounter - Emily [...] orders, Emily Hi RN documented in this encounterSt. Rita'S Hospital07-11-2024 Telephone encounter Note * Telephone Encounter - Emily Armstrong RN - 05/17/2024 3:56 PM EDT ----- Message from Halima Nixon MD sent at 05/17/2024 1:24 PM EDT ----- This patient needs RUQ US and HCV RNA ND Dr. Nixon, Please review and sign orders, Thanks, Emily Armstrong, RN [facility]05-24-2024 Instructions* Patient Instructions* Svetlana Rdz - 03/30/2024 2:[address] Chest with labs in 3 months RTC 1 week after to review documented in this encounterSt. Rita'S Hospital05-24-2024 History of Present illness Narrative* Wyatt Garza MD - 03/30/2024 2:45 PM EDT Images from the original note were not included. NAME: Carson Morse CLINIC NO.: [id number] DATE OF SERVICE: March 30, 2024 (bannerkatja) Some elements in this clinic note that [...] organ systems. Used to work on the [employer] for [employer]. Updated Visit, June 19, 2020: Thom is [...] which included preparing to see the patient, jrnn-pg-mxgk patient care, completing clinical documentation, performing a medically appropriate examination, counseling and educating the patient/family/caregiver, ordering medications, tests, or procedures, independently interpreting results (not separately reported), communicating results to the patient/family/caregiver, and care coordination (not separately reported). Wyatt Garza MD, CPE Hematology and Oncology Services Provided at: [place], [place] Scribe Attestation: This note was scribed [...] direction. CC: Elba De La Cruz MD [facility] [facility] [address] Halima Nixon MD documented in this encounterSt. Rita'S Hospital05-24-2024 NoteHNO ID: [id number] Author: WYATT GARZA MD Service: ? Author Type: Physician Type: Progress Notes Filed: 04/01/2024 09:31 Note Text: NAME: Carson Morse [facility] NO.: [id number] DATE OF SERVICE: March 30, 2024 (Mirian) [...] is going to tr (more content not included)...[facility]05-17-2024 History of Present illness Narrative* Sonja [...] PATIENT PRESENTS WITH AN IMPLANTABLE OR ATTACHED COAT ROOM ATTENDANT: No CREATININE: Creatinine Date Value Ref Range [...] contrast PATIENT DISCHARGED TO: Ambulatory patient, left DC department area. A Diagnostic radioactive procedure has taken place, with no further precautions necessary other than routine body substance precautions. More information regarding radiation safety can be found usingthis link: [email or web address] 20Diagnostic%20Nuclear%20Medicine%20Procedures.pdf SIGNATURE: ANNABELLE Stewart) PATIENT NAME: Carson Morse DATE: March 23, 2024 TIME: 9:22 AM PAGER/CONTACT #: documented in this encounterSt. Rita'S Hospital05-17-2024 NoteHNO ID: [id number] Author: SONJA MELGAR RT(R) Service: ? Author [...] PATIENT PRESENTS WITH AN IMPLANTABLE OR ATTACHED COAT ROOM ATTENDANT: No CREATININE: Creatinine Date Value Ref Range [...] contrast PATIENT DISCHARGED TO: Ambulatory patient, left DC department area. A Diagnostic radioactive procedure has taken place, with no further precautions necessary other than routine body substance precautions. More information regarding radiation safety can be found using this link: [email or web address] 20Diagnostic%20Nuclear%20Medicine%20Procedures.pdf SIGNATURE: RT Terry(R) PATIENT NAME: Carson Morse DATE: March 23, 2024 TIME: 9:22 AM PAGER/CONTACT #:[facility]02-12-2024 Miscellaneous Notes* Telephone Encounter - Zeny Tom RN - 12/19/2023 12:17 PM EST Pt informed of Frankie's message and denies [...] discuss at his appointment. documented in this encounterSt. Rita'S Hospital02-12-2024 Instructions* Patient Instructions* Svetlana Rdz - 12/19/2023 10:[address] Chest in 6 weeks RTC 1 week after to review If CT Chest clear then pursue routine annual visits documented in this encounterSt. Rita'S Hospital02-12-2024 History of Present illness Narrative* Wyatt Garza MD - 12/19/2023 10:30 AM EST Images from the original note were not included. NAME: Carson Morse CLINIC NO.: [id number] DATE OF SERVICE: December 19, 2023 (Mirian) [...] organ systems. Used to work on the [employer] for [employer]. Updated Visit, June 19, 2020: [...] which included preparing to see the patient, zxbr-ep-aejv patient care, completing clinical documentation, performing a medically appropriate examination, counseling and educating the patient/family/caregiver, ordering medications, tests, or procedures, independently interpreting results (not separately reported), communicating results to the patient/family/caregiver, and care coordination (not separately reported). Wyatt Garza MD, CPE Hematology and Oncology Services Provided at: [facility], [place], [place] Scribe Attestation: This note was scribed [...] CC: Elba De La Cruz MD [address] [facility] [address] Halima Nixon MD documented in this encounterSt. Rita'S Hospital02-09-2024 History of Present illness Narrative* Roxann [...] 16, 2023 10:54 AM documented in this encounterSt. Rita'S Hospital02-21-2023 NotePROCEDURE: XR ANKLE RT MIN 3 [...] Electronically authenticated by: DARRELL SPRING Date: 2022-12-28 07:42[facility]02-09-2023 Instructions* Patient Instructions* Wyatt Garza MD - 12/16/2022 11:[address] Neck Chest in 12 months labs same day Labs in 1 year with scans include CBC, CMP RTC in 12 months with me to review Patient to continue follow up with Dr. Leon RAWLS documented in this encounterSt. Rita'S Hospital02-09-2023 History of Present illness Narrative* Wyatt Garza MD - 12/16/2022 11:18 AM EST Images from the original note were not included. NAME: Carson Morse CLINIC NO.: [id number] DATE OF SERVICE: December 17, 2021 Some [...] organ systems. Used to work on the [employer] for [employer]. Updated Visit, June 19, 2020: [...] which included preparing to see the patient, hteh-ee-ftlm patient care, completing clinical documentation, performing a medically appropriate examination, counseling and educating the patient/family/caregiver, ordering medications, tests, or p rocedures, and independently interpreting results (not separately reported). Wyatt Garza MD, CPE [place], [place] CC: Wyatt Garza MD [address] [place] [address] [place] [address] Elba De La Cruz MD [address] [facility] [address] Halima Nixon MD documented in this encounterSt. Rita'S Hospital02-08-2023 History of Present illness Narrative* Jazmine [...] 15, 2022 9:40 AM documented in this encounterSt. Rita'S Hospital09-09-2022 History of Present illness Narrative* Bhavya Cohen RPh - 07/16/2022 1:59 PM EDT Medication(s): Epclusa Total duration of treatment: 12 weeks Estimated Start Date: 01/23 Estimated Completion Date: 04/17 Estimated SVR 07/10/22 Due for SVR12 lab at this time. Bhavya Cohen RPh Clinical Pharmacist, Hepatology and Biologics [facility] P: ; F: Pool: P CC SPEC GROUP 2 ([id number]) documented in this encounterSt. Rita'S Hospital08-11-2022 History of Present illness Narrative* G [...] [place]: [place] [address] [place] [address] Dr. Fiore documented in this encounterSt. Rita'S Hospital08-03-2022 Miscellaneous Notes* Telephone Encounter - Tory Self RN - 06/09/2022 1:32 PM EDT Please sign pended labs for upcoming visit. Tory Self RN documented in this encounterSt. Rita'S Hospital06-09-2022 History of Present illness Narrative* Ruddy Gaffney - 04/15/2022 2:[address] [facility] Visit Assessment - Hepatology: [...] provider regarding future tests. Ruddy Gaffney CPhT [facility] documented in this encounterSt. Rita'S Hospital05-31-2022 Hospital Discharge instructions Patient Education 04/06/2022 [...] Follow these instructions at home: Medicines Take cpwc-irz-stvuuul and prescription medicines only as told by [...] or the blood stops without treatment. Take ehyh-jas-xkkyjvz and prescription medicines only as told by your health care provider. Drink enough fluid to keep your urine clear or pale yellow. This information is not intended to replace advice given to you by your health care provider. Make sure you discuss any questions you have with your health care provider. Document Released: 10/24/2006 Document Revised: 03/19/2020 Document Reviewed: 11/26/2017 [facility] Patient Education 2019 [employer]. Follow Up Care 08/27/2021 11:36:33 With:Herve Flores MD, Sushil Degroot URO Address: [facility] [address] , [place] [address]- When:04/06/2023 Comments:w/psa [facility] [place] 05-16-2022 Miscellaneous Notes* Telephone Encounter - Raquel [...] RNA in 3 months documented in this encounterSt. Rita'S Hospital05-05-2022 History of Present illness Narrative* Ruddy [...] Will proceed with refill with no changes. [facility] Visit Assessment - Hepatology: Is pre-assessment?: No Is initial or refill assessment?: Yes Assessment to use: Refill Non-Clinical Assessment: Patient confirmed: Yes Med/dose confirmed: Yes Supplies needed: N/A Missed doses: No Estimated days supply on hand: 10 Next cycle/dose due: 03/12/2022 Copay amount: 0 Payment confirmed: Yes Address confirmed: Yes Delivery method: Fed[employer] Delivery address: [address] [place] [address] Delivery date: 03/15/2022 Patient has questions: No [...] if on ribavirin: N/A Ruddy Gaffney CPhT Cpr Ambulance Driver, Inflammatory & Neurology [facility] documented in this encounterSt. Rita'S Hospital04-07-2022 History of Present illness Narrative* Rudyd Gaffney - 02/11/2022 1:31 PM EDT [facility] Specialty Refill Assessment Medication(s): Epclusa (2 of 3) Total duration of treatment: 12 weeks Estimated Start Date: 01/23 Estimated Completion Date: 04/17 Estimated SVR 07/10/22 Labs have been ordered but not yet collected. Goal remains to complete full treatment. Unable to assess compliance although patient does not report missed doses. Bhavya Cohen RPh Clinical Pharmacist, Hepatology and Biologics [facility] P: ; F: Pool: P CC SPEC GROUP 2 ([id number]) Therapy continues to be appropriate for disease, patient response, and medical condition. Verification of therapeutic benefit and effectiveness with current therapy. Adverse events, barriers in adherence, and side effects assessed and addressed. Will proceed with refill with no changes. [facility] Visit Assessment - Hepatology: Is pre-assessment?: No Is initial or refill assessment?: Yes Assessment to use: Refill Non-Clinical Assessment: Patient confirmed: Yes Med/dose confirmed: Yes Supplies needed: N/A Missed doses: No Estimated days supply on hand: 8 Next cycle/dose due: 02/12/2022 Copay amount: 0 Payment confirmed: Yes Address confirmed: Yes Delivery method: FedEx Delivery address: [address] [place], [place] [id number] Delivery date: 02/15/2022 Patient has questions: No Refill Assessment: Concurrent med therapy screening: Yes Adverse reactions and mitigation: Yes Hepatitis C RNA level at 12 weeks after end of therapy with additional testing as clinically indicated: Yes Hepatic function panel, eGFR: Yes CBC after 2 weeks if on ribavirin: N/A Ruddy Gaffney documented in this encounterSt. Rita'S Hospital03-24-2022 Miscellaneous Notes* Telephone Encounter - Raquel [...] Sent: 01/20/2022 3:00 PM EDT To: MD BERENICE LamI - Pt is scheduled to receive shipment of Epclusa on 01/22 and will start 01/23. Patient informed to contact office to schedule pertinent labs while on treatment. Full details on cost and medicationcounseling in this encounter. Bhavya Hi documented in this encounterSt[facility] History of Present illness Narrative* Jazmine [...] 16, 2021 8:33 AM documented in this encounterSt. [facility]'S HospitalEvaluation + Plan note Future Appointments Appointment Date:04/12/2023 08:00:00 AM Scheduled Provider:Sushil Edgar Jr., MD Location:[facility] Appointment Type:URO Office Visit Diagnostic Tests Pending * PSA Total 04/06/[address] [facility] Jose evaluation note* Diagnosis Hepatitis C antibody positive in blood- Primary [facility] Diagnosis Chronic hepatitis C without hepatic coma (HCC)- Primary Chronic hepatitis C without mention of hepatic coma [facility] Diagnosis Effects of radiation, sequela- Primary [facility] Diagnosis Effects of radiation, sequela- Primary Head and neck cancer (HCC) Malignant neoplasm of head, face, and neck [facility] Diagnosis Chronic hepatitis C with hepatic coma (HCC)- Primary Chronic hepatitis C with hepatic coma [facility]* Diagnosis Malignant neoplasm of head, 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, face, and neck Lung nodules Other nonspecific abnormal finding of lung field Disorder of thyroid Unspecified disorder of thyroid [facility] Diagnosis Localized enlarged lymph nodes- Primary Enlargement of lymph nodes Severe protein-calorie malnutrition (HCC) Other severe protein-calorie malnutrition Malignant neoplasm of head, 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, face, and neck History of head and neck cancer [facility] Diagnosis History of head and neck cancer- Primary Lung nodules Other nonspecific abnormal finding of lung field [facility] Diagnosis Chronic hepatitis C without hepatic coma (HCC)- Primary Chronic hepatitis C without mention of hepatic coma Abnormal LFTs Other abnormal blood chemistry [facility] Diagnosis Chronic hepatitis C without hepatic coma (HCC)- Primary Chronic hepatitis C without mention of hepatic coma [facility]* Diagnosis Abnormal LFTs Other abnormal blood chemistry Chronic hepatitis C without hepatic coma (HCC) Chronic hepatitis C without mention of hepatic coma [facility]* Diagnosis Fatty liver- Primary Other [...] and neck cancer [facility]* Diagnosis Lung nodules Other nonspecific abnormal finding of lung field 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, unspecified site documented in this encounter [facility]* Diagnosis Sensorineural hearing loss (SNHL) of both ears- Primary [facility] Diagnosis History of head and neck cancer Lung nodules Other nonspecific abnormal finding of lung field Fatty liver Other chronic nonalcoholic liver disease [facility]* Diagnosis History of head and neck cancer- Primary Lung nodules Other nonspecific abnormal finding of lung field [facility] this [facility]* Diagnosis Non-seasonal allergic rhinitis due to other allergic trigger- Primary Chronic sinusitis, unspecified location Tongue cancer (HCC) Malignant neoplasm of tongue, unspecified site Bilateral impacted cerumen Impacted cerumen documented in this encounter [facility] course Narrative No data available for this section [facility] Transaction[employer] reason for referral (narrative)* Diagnostic Procedure Only (Routine) - AuthorizedSpecialtyDiagnoses / ProceduresReferred By Contact Referred To [facility] Diagnoses Abnormal LFTs Chronic hepatitis C without hepatic coma (HCC) Procedures US ABD RIGHT UPPER QUADRANT US ABDOMINAL REAL [place] W/[place] [address] [place] [address] [place] [address] Referral IDStatusReasonStart DateExpiration DateVisits RequestedVisits [id number] Auto-Generated Referral / [facility] for referral (narrative)* Diagnostic Procedure Only (Routine) - ClosedSpecialtyDiagnoses / ProceduresReferred By ContactReferred To [facility] Diagnoses Abnormal LFTs Chronic hepatitis C without hepatic coma (HCC) Procedures US ABD RIGHT UPPER QUADRANT US ABDOMINAL REAL TIME W/IMAGE [place] Halima Nixon [place] [id number] [place] [phone] [place] [address] Referral IDStatusReasonStart DateExpiration DateVisits RequestedVisits [id number] Auto-Generated Referral / [facility] for referral (narrative)* Outpatient Procedure (Routine) - New RequestSpecialtyDiagnoses / ProceduresReferred By ContactReferred To [facility] Diagnoses Fatty liver Procedures DDI VIBRATION CONTROLLED TRANSIENT ELASTOGRAPHY (VCTE) LIVER ELASTOGRAPHY W/O IMAG W/I&R Halima Nixon [place] [id number] [place] [phone] [facility] [address] [id number] Referral IDStatusReasonStart DateExpiration DateVisits RequestedVisits [id number] Request Auto-Generated Referral / * Diagnostic Procedure Only (Routine) - New RequestSpecialtyDiagnoses / ProceduresReferred By ContactReferred To [facility] Diagnoses Fatty liver Procedures US ABD RIGHT UPPER QUADRANT US ABDOMINAL REAL TIME W/IMAGE LIMITED Halima Nixon MD [address] [place] [phone] [place] [address] Referral IDStatusReasonStart DateExpiration DateVisits RequestedVisits [id number] Request Auto-Generated Referral 2/6/49261/ [facility] Summary Purpose Family History No Family [...] COMPUTED TOMOGRAPHY THORAX W/CONTRAST Wyatt Garza MD [address] [place] [address] [address], [facility] [place] [facility] Referral IDStatusReasonStart DateExpiration DateVisits RequestedVisits [id number] Auto-Generated Referral /[id number] / ProceduresReferred By ContactReferred To ContactCT IMAGING Diagnoses Malignant neoplasm of head, face and neck (HCC) Lung nodules Procedures CT NECK SOFT TISSUE W IVCON CT SOFT TISSUE NECK W/CONTRAST MATERIAL Wyatt Garza MD [address] [place] [address] [place] [address] [place] [address] Referral IDStatusReasonStart DateExpiration DateVisits RequestedVisits [id number] Auto-Generated Referral /[id number] / ProceduresReferred By ContactReferred To ContactCT IMAGING Diagnoses History of head and neck cancer Lung nodules Procedures CT CHEST W IVCON DIAGNOSTIC COMPUTED TOMOGRAPHY THORAX W/CONTRAST Wyatt Garza MD [address] [place] [address] [place] [address] [place] [address] Referral IDStatusReasonStart DateExpiration DateVisits RequestedVisits [id number] Auto-Generated Referral [id number] / ProceduresReferred By ContactReferred To ContactCT IMAGING Diagnoses Localized enlarged lymph nodes History of head and neck cancer Procedures CT CHEST W IVCON DIAGNOSTIC COMPUTED TOMOGRAPHY THORAX W/CONTRAST Wyatt Garza MD [address] [place] [id number] [facility] [place] [address] Referral IDStatusReasonStart DateExpiration DateVisits RequestedVisits [id number] Auto-Generated Referral /[id number] / ProceduresReferred By ContactReferred To ContactCT IMAGING Diagnoses Lung nodules Procedures CT NECK SOFT TISSUE W IVCON CT SOFT TISSUE NECK W/CONTRAST MATERIAL Wyatt Garza MD [address] [place] [id number] Imaging Referral IDStatusReasonStart DateExpiration DateVisits RequestedVisits [id number] Auto-Generated Referral [id number] / ProceduresReferred By ContactReferred To ContactCT IMAGING Diagnoses Lung nodules Procedures CT CHEST W IVCON DIAGNOSTIC COMPUTED TOMOGRAPHY THORAX W/CONTRAST Wyatt Garza MD [address] [place] [phone] Imaging Referral IDStatusReasonStart DateExpiration DateVisits RequestedVisits [id number] Auto-Generated Referral /[id number] / ProceduresReferred By ContactReferred To ContactCT IMAGING Diagnoses Effects of radiation, sequela Head and neck cancer (HCC) Procedures CT CHEST WO IVCON DIAGNOSTIC COMPUTED TOMOGRAPHY THORAX W/O Marleni Calhoun MD [address] [place] [address] [place] [address] Ct Imaging Referral IDStatusReasonStart DateExpiration DateVisits RequestedVisits [id number] Review Auto-Generated Referral 2/11 Additional Source Comments (unrecognized sect ion and content) No Status Records FoundNo Status Records FoundNo Status Records FoundNo Status Records FoundNo Status Records Found INFORMATION SOURCE (unrecogn ized section and content) DATE CREATED AUTHOR 03/20/2019 [facility] DATE CREATED AUTHOR AUTHOR'S ORGANIZ ATION 03/07/2023 [facility] DATE CREATED AUTHOR AUTHOR'S ORGANIZ ATION 03/17/2023 [facility] DATE CREATED AUTHOR AUTHOR'S ORGANIZ ATION 02/02/2025 [facility] DATE CREATED AUTHOR AUTHOR'S ORGANIZ ATION 08/30/2025 [facility] EPIC Source Comments (unrecognize d section and content) In the event this informatio n is protected by the Federal Confidentiality of Alcohol and Drug Abuse Patient Records regulations: The Federal rules restrict any use of the information to criminally investigate or prosecute any alcohol or drug abuse patient.[facility] HospitalIn the event this information is protected by the Federal Confidentiality of Alcohol and Drug Abuse Patient Records regulations: The Federal rules restrict any use of the information to criminally investigate or prosecute any alcohol or drug abuse patient.[facility] HospitalIn the event this information is protected by the Federal Confidentiality of Alcohol and Drug Abuse Patient Records regulations: The Federal rules restrict any use of the information to criminally investigate or prosecute any alcohol or drug abuse patient.[facility] HospitalIn the event this information is protected by the Federal Confidentiality of Alcohol and Drug Abuse Patient Records regulations: The Federal rules restrict any use of the information to criminally investigate or prosecute any alcohol or drug abuse patient.[facility] HospitalIn the event this information is protected by the Federal Confidentiality of Alcohol and Drug Abuse Patient Records regulations: The Federal rules restrict any use of the information to criminally investigate or prosecute any alcohol or drug abuse patient.[facility] HospitalIn the event this information is protected by the Federal Confidentiality of Alcohol and Drug Abuse Patient Records regulations: The Federal rules restrict any use of the information to criminally investigate or prosecute any alcohol or drug abuse patient.[facility] HospitalIn the event this information is protected by the Federal Confidentiality of Alcohol and Drug Abuse Patient Records regulations: The Federal rules restrict any use of the information to criminally investigate or prosecute any alcohol or drug abuse patient.[facility] HospitalIn the event this information is protected by the Federal Confidentiality of Alcohol and Drug Abuse Patient Records regulations: The Federal rules restrict any use of the information to criminally investigate or prosecute any alcohol or drug abuse patient.[facility] HospitalIn the event this information is protected by the Federal Confidentiality of Alcohol and Drug Abuse Patient Records regulations: The Federal rules restrict any use of the information to criminally investigate or prosecute any alcohol or drug abuse patient.[facility] HospitalIn the event this information is protected by the Federal Confidentiality of Alcohol and Drug Abuse Patient Records regulations: The Federal rules restrict any use of the information to criminally investigate or prosecute any alcohol or drug abuse patient.[facility] HospitalIn the event this information is protected by the Federal Confidentiality of Alcohol and Drug Abuse Patient Records regulations: The Federal rules restrict any use of the information to criminally investigate or prosecute any alcohol or drug abuse patient.[facility] HospitalIn the event this information is protected by the Federal Confidentiality of Alcohol and Drug Abuse Patient Records regulations: The Federal rules restrict any use of the information to criminally investigate or prosecute any alcohol or drug abuse patient.[facility] HospitalIn the event this information is protected by the Federal Confidentiality of Alcohol and Drug Abuse Patient Records regulations: The Federal rules restrict any use of the information to criminally investigate or prosecute any alcohol or drug abuse patient.[facility] HospitalIn the event this information is protected by the Federal Confidentiality of Alcohol and Drug Abuse Patient Records regulations: The Federal rules restrict any use of the information to criminally investigate or prosecute any alcohol or drug abuse patient.[facility] HospitalIn the event this information is protected by the Federal Confidentiality of Alcohol and Drug Abuse Patient Records regulations: The Federal rules restrict any use of the information to criminally investigate or prosecute any alcohol or drug abuse patient.[facility] HospitalIn the event this information is protected by the Federal Confidentiality of Alcohol and Drug Abuse Patient Records regulations: The Federal rules restrict any use of the information to criminally investigate or prosecute any alcohol or drug abuse patient.[facility] HospitalIn the event this information is protected by the Federal Confidentiality of Alcohol and Drug Abuse Patient Records regulations: The Federal rules restrict any use of the information to criminally investigate or prosecute any alcohol or drug abuse patient.[facility] HospitalIn the event this information is protected by the Federal Confidentiality of Alcohol and Drug Abuse Patient Records regulations: The Federal rules restrict any use of the information to criminally investigate or prosecute any alcohol or drug abuse patient.[facility] HospitalIn the event this information is protected by the Federal Confidentiality of Alcohol and Drug Abuse Patient Records regulations: The Federal rules restrict any use of the information to criminally investigate or prosecute any alcohol or drug abuse patient.[facility] HospitalIn the event this information is protected by the Federal Confidentiality of Alcohol and Drug Abuse Patient Records regulations: The Federal rules restrict any use of the information to criminally investigate or prosecute any alcohol or drug abuse patient.[facility] HospitalIn the event this information is protected by the Federal Confidentiality of Alcohol and Drug Abuse Patient Records regulations: The Federal rules restrict any use of the information to criminally investigate or prosecute any alcohol or drug abuse patient.[facility] HospitalIn the event this information is protected by the Federal Confidentiality of Alcohol and Drug Abuse Patient Records regulations: The Federal rules restrict any use of the information to criminally investigate or prosecute any alcohol or drug abuse patient.[facility] HospitalIn the event this information is protected by the Federal Confidentiality of Alcohol and Drug Abuse Patient Records regulations: The Federal rules restrict any use of the information to criminally investigate or prosecute any alcohol or drug abuse patient.[facility] HospitalIn the event this information is protected by the Federal Confidentiality of Alcohol and Drug Abuse Patient Records regulations: The Federal rules restrict any use of the information to criminally investigate or prosecute any alcohol or drug abuse patient.[facility] HospitalIn the event this information is protected by the Federal Confidentiality of Alcohol and Drug Abuse Patient Records regulations: The Federal rules restrict any use of the information to criminally investigate or prosecute any alcohol or drug abuse patient.[facility] HospitalIn the event this information is protected by the Federal Confidentiality of Alcohol and Drug Abuse Patient Records regulations: The Federal rules restrict any use of the information to criminally investigate or prosecute any alcohol or drug abuse patient.[facility] HospitalIn the event this information is protected by the Federal Confidentiality of Alcohol and Drug Abuse Patient Records regulations: The Federal rules restrict any use of the information to criminally investigate or prosecute any alcohol or drug abuse patient.[facility] Reason for Visit (unrecogniz ed section and content) ReasonCommentsFollow UpReasonOnset DateCommentsSPP Hepatology - Medication Fknshq1002/11/2022EpclusaReasonOnset DateCommentsSPP Hepatology - Medication Ruhwsc2203/11/2022EpclusaReasonCommentsResultsReasonOnset DateCommentsSPP Hepatology - Follow-up04/15/2022Epclusa - End of TreatmentReasonCommentsLab OrdersReasonCommentsHead and Neck CancerReasonOnset Date[facility]16/2022Epclusa treatment completeReasonCommentsHead and [...] 40-54 MIN EST PATIENT Wyatt Garza MD [address] [place] [address] [place] [address] Wyatt Garza MD [address] [place] [address] [place] [address] Referral IDStatusReasonStart DateExpiration DateVisits RequestedVisits [id number]/1/20235/[id number] and Neck Cancer1 year follow upReasonCommentsRadiology USSpecialtyDiagnoses / ProceduresReferred By ContactReferred To ContactUS IMAG[facility] Diagnoses Abnormal LFTs Chronic hepatitis C without hepatic coma (HCC) Procedures US ABD RIGHT UPPER QUADRANT US ABDOMINAL REAL TIME W/[place] [address] [place] [address] [place] [address] Referral IDStatusReasonStart DateExpiration DateVisits RequestedVisits [id number] Auto-Generated Referral /[id number] and Neck Cancer3 month follow upReason CommentsRadiology CTSpecialtyDiagnoses / ProceduresReferred By ContactReferred To ContactCT IMAGING Diagnoses History of head and neck cancer Lung nodules Procedures CT CHEST W IVCON DIAGNOSTIC COMPUTED TOMOGRAPHY THORAX W/CONTRAST Wyatt Garza MD [address] [place] [address] [place] [address] Referral IDStatusReasonStart DateExpiration DateVisits RequestedVisits [id number] Auto-Generated Referral /[id number] / ProceduresReferred By ContactReferred To ContactCT IMAGING Diagnoses Localized enlarged lymph nodes History of head and neck cancer Procedures CT CHEST W IVCON DIAGNOSTIC COMPUTED TOMOGRAPHY THORAX W/CONTRAST Wyatt Garza MD [address] [place] [address] [place] [address] Referral IDStatusReasonStart DateExpiration DateVisits RequestedVisits [id number] Auto-Generated Referral /[id number] CTSpecialtyDiagnoses / Procedures Referred By ContactReferred To ContactCT IMAGING Diagnoses Lung nodules Procedures CT NECK SOFT TISSUE W IVCON CT SOFT TISSUE NECK W/CONTRAST MATERIAL Wyatt Garza MD [address] [place], [facility] [place] [address] Referral IDStatusReasonStart DateExpiration DateVisits RequestedVisits [id number] Auto-Generated Referral /[id number] / ProceduresReferred By ContactReferred To ContactCT IMAGING Diagnoses Malignant neoplasm of head, face and neck (HCC) Lung nodules Procedures CT NECK SOFT TISSUE W IVCON CT SOFT TISSUE NECK W/CONTRAST MATERIAL Wyatt Garza MD [address] [place] [address] [address] [place], [facility] [place] [address] Referral IDStatusReasonStart DateExpiration DateVisits RequestedVisits [id number] Auto-Generated Referral [id number] CTSpecialtyDiagnoses / Procedures Referred By ContactReferred To ContactCT IMAGING Diagnoses Lung nodules Procedures CT CHEST W IVCON CAT SCAN OF CHEST CONTRAST Wyatt Garza MD [address] [place], [facility] [place] [address] Referral IDStatusReasonStart DateExpiration DateVisits RequestedVisits [id number] Auto-Generated Referral /[id number] yr cancer checkSpecialtyDiagnoses / ProceduresReferred By ContactReferred To ContactCT IMAGING Diagnoses History of head and neck cancer Lung nodules Procedures CT NECK SOFT TISSUE W IVCON CT SOFT TISSUE NECK W/CONTRAST MATERIAL Wyatt Garza MD [address] [place] [address] [address] [place], [facility] Phone: tel: fax: [facility] [place] [address] Referral IDStatusReasonStart DateExpiration DateVisits RequestedVisits [id number] Auto-Generated Referral /[id number] Up Tests ResultsLabs---->needs US, Fibroscan and OVReasonCommentsThroat ProblemThroat and ear clogged Care Teams (unrecognized sec tion and content) Team MemberRelationshipSpecialtyStart DateEnd Elba Ramesh MD [address] [place] [address] PCP - GeneralFamily Practice01/04/18Team MemberRelationshipSpecialtyStart DateEnd Elba Ramesh MD [address] [phone] PCP - GeneralFamily Practice01/04/18Team MemberRelationshipSpecialtyStart DateEnd Elba Ramesh MD [address] [place] [address] PCP - GeneralFamily Practice01/04/18Team MemberRelationshipSpecialtyStart DateEnd Date Elba De La Cruz MD [address] [place] [phone] PCP - GeneralFamily Practice01/04/18Team MemberRelationshipSpecialtyStart DateEnd Elba Ramesh MD [address] [place] [phone] PCP - GeneralFamily Medicine01/04/18Team MemberRelationshipSpecialtyStart DateEnd Date Elba De La Cruz MD [address] [place] [address] PCP - GeneralFamily Medicine01/04/18Team MemberRelationshipSpecialtyStart NeenaEnd Elba Ramesh MD PCP - GeneralFamily Medicine01/04/18Team MemberRelationshipSpecialtyStart NeenaEnd Elba Ramesh MD PCP - GeneralFamily Medicine01/04/18Team MemberRelationshipSpecialtyStart DateEnd Date Elba De La Cruz MD PCP - GeneralFamily Medicine01/04/18Team MemberRelationshipSpecialtyStart DateEnd Date Elba De La Cruz MD PCP - GeneralFamily Medicine01/04/18Team MemberRelationshipSpecialtyStart DateEnd Date Elba De La Cruz MD PCP - GeneralFamily Medicine01/04/18Team MemberRelationshipSpecialtyStart DateEnd Date Elab De La Cruz MD PCP - GeneralFamily Medicine01/04/18Team MemberRelationshipSpecialtyStart DateEnd Date Elba De La Cruz MD PCP - GeneralFamily Medicine01/04/18Team MemberRelationshipSpecialtyStart DateEnd Date Elba De La Cruz MD PCP - Generalmily Medicine01/04/18Team MemberRelationshipSpecialtyStart DateEnd Date Elba De La Cruz MD [address] [place] [address] PCP - GeneralFamily Medicine03/15/23Team MemberRelationshipSpecialtyStart DateEnd Date Elba De La Cruz MD [address] [place] [address] PCP - GeneralFamily Medicine03/15/23Team MemberRelationshipSpecialtyStart DateEnd Date Elba De La Cruz MD [address] [place] [facility] [place] [address] PCP - GeneralFamily Medicine03/15/23Team MemberRelationshipSpecialtyStart DateEnd Date Elba De La Cruz MD [address] [place] [place] [address] PCP - GeneralFamily Medicine03/15/23Team MemberRelationshipSpecialtyStart DateEnd Date Elba De La Cruz MD PCP - GeneralFamily Medicine01/04/18Team MemberRelationshipSpecialtyStart DateEnd Date Elba De La Cruz MD PCP - GeneralFamily Medicine01/04/18Team MemberRelationshipSpecialtyStart DateEnd Date Elba De La Cruz MD PCP - GeneralFamily Medicine01/04/18Team MemberRelationshipSpecialtyStart DateEnd Date Elba De La Cruz MD [address] [place] [place] [address] PCP - GeneralFamily Drizvwmy20/16/25Team MemberRelationshipSpecialtyStart Date End Date Elba De La Cruz MD [address] [place] [facility] [address] PCP - GeneralFamily Eyfaltuc22/16/25Team MemberRelationshipSpecialtyStart Date End Date Elba De La Cruz MD [address] [place] [address] PCP - [facility]08/22/25 FOR RECORDS PERTAINING TO PATIENTS WHO ARE [...] BE BASED ON THE PRIMARY CLINICAL RECORDS. [facility] [employer] [facility]. provides no warranty or guarantee of the accuracy or completeness of information in this document.
--- NOTE | 2025-09-11 07:55 | MR_ITS ---
The [address] [address] Patient Name: ADELFO NOLAN MRN: [id number] date: 1955 Sex: M Assigned Patient Location: MRI Current Patient Location: MRI Accession/Order Number: [id number] Exam Date: 09/11/2025 08:00 Report Date: 09/11/2025 11:03 At the request of: ELBA DE LA CRUZ MD Procedure: MR head/brain wo con MR head/brain wo con 09/11/2025 8:37 AM SIGN AND SYMPTOMS: Nasal Congestion, Headache, Laryngeal Cancer PROTOCOL: Multiplanar multisequence MR images of the brain without IV contrast COMPARISON: None. FINDINGS: Extra axial spaces: There is age related cortical atrophy. Hemorrhage: None. Ventricular system: Within normal limits. Basal cisterns: Within normal limits and not effaced. Cerebral parenchyma: Periventricular white matter T2 and T2 FLAIR hyperintesities suggesting chronic microvascular ischemic change. Midline shift: None.. Cerebellum: Within normal limits. Brainstem: Within normal limits. OTHER: Calvarium: Normal marrow signal. Vascular system: Satisfactory flow voids within the anterior and posterior circulation. Visualized Paranasal sinuses: Mild mucosal thickening is noted in the left maxillary sinus. Visualized Orbits: Within normal limits. Visualized upper cervical spine: Within normal limits. Sella and skull base: Within normal limits. MR/MR head/brain wo con IMPRESSION: No acute intracranial pathology. Chronic age-related neurodegenerative changes are noted as above. Mild mucosal thickening is noted in the left maxillary sinus. Impression dictated by: Partha Pantoja M.D. 09/11/2025 11:03 AM Dictation Location: [place] [address] Electronically authenticated by: [id number] Y Date: 09/11/2025 11:03
== END 2025-09-11 07:51 | disposition home or self-care (01) ==
LOC: MRI 07:50
PROVIDERS: PCP Family Medicine; Visit Provider Family Medicine
DX: R09.81 Nasal congestion (principal); R51.9 Headache, unspecified; C32.9 Malignant neoplasm of larynx, unspecified
CPT/HCPCS: 70551

== ENCOUNTER 2025-10-16 11:33 | Outpatient (OUT) | payer MEDICARE, MEDICAID, SELFPAY ==
[2025-10-16 12:22] LABS: Hematocrit 34.8 % (42.0-54.0); Hemoglobin 11.8 g/dL (14.0-18.0); Immature Granulocytes Abs Auto 0.03 10^3/uL (0.00-0.03); Immature Granulocytes Pct Auto 0.4 % (0.0-0.5); Lymphocytes Absolute Auto 1.2 10^3/uL (1.2-3.8); Mean Corpuscular HGB Conc 33.9 g/dL (29.9-35.2); Mean Corpuscular Hemoglobin 32.1 pg (25.9-34.0); Mean Corpuscular Volume 94.6 fL (80.0-94.0); Platelet Count 271 10^3/uL (150-450); Red Blood Count 3.68 10^6/uL (4.70-6.10); White Blood Count 7.5 10^3/uL (4.0-11.0)
[2025-10-16 12:56] LABS: Alanine Aminotransferase 19 U/L (16-63); Albumin Globulin Ratio 1.1; Albumin Level 3.7 g/dL (3.4-5.0); Alkaline Phosphatase 69 U/L (46-116); Anion Gap 12.1; Aspartate Amino Transferase 11 U/L (15-37); Blood Urea Nitrogen 14.0 mg/dL (7.0-18.0); Calcium 9.1 mg/dL (8.5-10.1); Carbon Dioxide 27.7 mmol/L (21.0-32.0); Chloride 100 mmol/L (98-107); Estimated GFR (African America >60 (>=60 mL/min/1.73m^2); Estimated GFR (Non-African Ame >60 (>=60 mL/min/1.73m^2); Free T3 2.60 pg/mL (2.18-3.98); Globulin 3.4 g/dL; Glucose 93 mg/dL (74-106); NT Pro B Type Natriuretic Pept 305.0 pg/mL (<=900.0); Potassium 3.8 mmol/L (3.5-5.1); Sodium 136 mmol/L (136-145); Thyroid Stimulating Hormone 1.910 uIU/mL (0.358-3.740); Total Protein 7.1 g/dL (6.4-8.2)
[2025-10-16 13:53] LABS: Iron 59.0 ug/dL (65.0-175.0)
[2025-10-16 14:08] LABS: Ferritin 234.0 ng/mL (26.0-388.0)
== END 2025-10-16 11:34 | disposition home or self-care (01) ==
LOC: LAB 11:35
PROVIDERS: PCP Family Medicine; Visit Provider Family Medicine
DX: R53.83 Other fatigue (principal); R03.0 Elevated blood-pressure reading, without diagnosis of hypertension
CPT/HCPCS: 36415; 80053; 82728; 83036; 83540; 83880; 84436; 84443; 84481; 85025